=== PATIENT | female | born 1975 | race Caucasian/White ===

== ENCOUNTER 2017-05-17 14:17 | Outpatient (RCR) | payer BC, SELFPAY ==
[2017-05-17 15:43] LABS: Absolute Lymphocyte Count 1.23 X10^3/ul (0.83-4.51); Absolute Neutrophil Count 4.1 X10^3/uL (2.0-7.7); Basophil# 0.01 X10^3/uL; Basophil% 0.2 % (0-1); Eosinophil# 0.07 X10^3/uL; Eosinophils% 1.2 % (0-5); Hematocrit 35.2 % (37-47); Hemoglobin 11.8 g/dl (12.0-15.0); Lymphocyte # 1.23 X10^3/ul (4.0); Lymphocyte % 21.5 % (19-41); Mean Corp Hgb Conc 33.5 g/gl (32-36); Mean Corpuscular Hgb 27.5 pg (27.0-32.0); Mean Corpuscular Volume 82.1 fL (81-99); Mean Platelet Vol. 10.1 fl (6.2-12.0); Monocyte# 0.29 X10^3/uL; Monocyte% 5.1 % (0-10); Neutrophil # 4.11 X10^3/uL (2.7-7.7); Neutrophil % 71.8 % (47-70); Platelet Count 138 K/mm3 (150-450); RBC Distribution Width CV 13.4 % (11.6-14.6); RBC Distribution Width SD 39.1 fl (35.1-43.9); Red Blood Count 4.29 M/mm3 (4.2-5.4); White Blood Count 5.7 K/mm3 (4.4-11.0)
[2017-05-17 15:49] LABS: POSITIVE COUNT NO; POSITIVE DIFFERENTIAL NO; POSITIVE MORPHOLOGY NO
[2017-05-17 16:06] LABS: AST(SGOT) 17 U/L (15-37); Alanine Aminotransfer ALT/SGPT 19 U/L (13-56); Albumin, Serum 3.7 g/dL (3.2-5.0); BUN 16 mg/dL (7-18); Creatinine, Serum 0.95 mg/dL (0.55-1.02); EST Glomerular Filtration Rate 68 mL/min (>60); Est Glom Filt Rate - Afr Amer 82 mL/min (>60)
== END 2017-05-17 15:00 | disposition home or self-care (01) ==
LOC: MTLAB 14:17
PROVIDERS: Family Provider Family Medicine; PCP Family Medicine; Visit Provider Internal Medicine Rheumatology
DX: M32.9 Systemic lupus erythematosus, unspecified (principal)
CPT/HCPCS: 36415; 81001; 82040; 82565; 84450; 84460; 84520; 85025

== ENCOUNTER → 2017-05-20 14:02 | Outpatient (CLI) | payer BC, SELFPAY ==
[2017-05-20 17:31] LABS: Chlamydia Trachomatis by PCR Negative (Negative); Neisserai gonorrhoeae by PCR Negative (Negative); Probe Check PASS; Sample Adequacy Control PASS; Specimen Processing Control PASS
[2017-05-27 09:25] LABS: HPV Reflexed? NOT INDICATED
== END ==
PROVIDERS: Visit Provider Obstetrics & Gynecology
DX: Z12.4 Encounter for screening for malignant neoplasm of cervix (principal); Z11.3 Encounter for screening for infections with a predominantly sexual mode of transmission
CPT/HCPCS: 87491; 87591; 88175; G0145

== ENCOUNTER → 2017-06-08 07:00 | Outpatient (CLI) | payer BC, SELFPAY ==
--- NOTE | 2017-06-08 06:58 | HPBI_ITS ---
MAMMOGRAPHY - BILATERAL SCREENING REASON FOR EXAM: Female, 42 years old. Routine annual screening examination. PERTINENT HISTORY: Non-contributory. TECHNIQUE: Digital bilateral breast angely (3D mammographic acquisition) in the CC and MLO projections. 2-D mediolateral oblique (MLO) and craniocaudad (CC) views of both breasts were obtained. CAD: Full Field Digital Mammography with Computer Added Detection was performed. COMPARISON: Comparison is made with prior study dated December 05, 2015. FINDINGS: Breast Composition: The breasts are heterogeneously dense, which may obscure small masses. There are no dominant masses or suspicious calcifications. No other significant abnormalities are identified. There has been no significant change since the prior study. HPBI/SCREENING MAMM (CAD), BILAT IMPRESSION: Stable bilateral screening mammogram. Yearly follow-up mammogram recommended. (A) ASSESSMENT CATEGORY: BIRADS Category 1: Negative. A letter regarding these results will be sent to the patient by the facility within 30 days. Approximately 10% of breast cancers are not detected by mammography. A normal mammogram should not delay biopsy of a clinically suspicious abnormality. [id number] Electronically Signed: Chris Sandoval MD at 8:18 EDT Tel [phone], Service support ,
== END ==
PROVIDERS: Family Provider Family Medicine; PCP Family Medicine; Visit Provider Obstetrics & Gynecology
DX: Z12.31 Encounter for screening mammogram for malignant neoplasm of breast (principal)
CPT/HCPCS: 77063; 77067

== ENCOUNTER → 2017-07-07 13:47 | Outpatient (CLI) | payer BC, SELFPAY ==
--- NOTE | 2017-07-07 13:49 | ECHOD_ITS ---
Reason For Study: Valve disease Procedure This was a 2D Doppler, Color Flow transthoracic echocardiogram. Exam performed in department. Left Ventricle Normal size and thickness. The estimated ejection fraction is 65 %. Normal diastology for age. No regional wall motion abnormalities noted. Right Ventricle Normal size and thickness. Normal systolic function. Atria Normal left atrium. Normal right atrium. Normal atrial septum. Mitral Valve The mitral valve is structurally normal. No prolapse or stenosis seen. Trivial mitral valve insufficiency. Tricuspid Valve Normal tricuspid valve. Trivial tricuspid valve insufficiency. Right ventricular systolic pressure estimated to be 25 mmHg. Aortic Valve Moderate focal aortic valve thickening. Possible fusion of left and right coronary cusps, creating a functional bicuspid aortic valve. Mild aortic stenosis. Peak aortic valve gradient 29 mmHg. Mean aortic valve gradient 16 mmHg. Mild (1+) aortic valve insufficiency. Pulmonic Valve Normal pulmonic valve. Trivial pulmonic valve insufficiency. Great Vessels Normal aortic root. Normal arch. Normal inferior vena cava. Inferior vena cava collapse with sniff. Pericardium/Pleural No pericardial effusion. MMode/2D Measurements & Calculations LVIDd: 4.0 cm IVSd: 1.3 cm LVOT diam: 2.1 cm LVIDs: 2.4 cm LVPWd: 1.2 cm LVOT area: 3.6 cm2 RVDd: 3.2 cm FS: 41.8 % Ao root diam: 3.7 cm LAV(MOD-bp): 50.9 ml EDV(MOD-sp4): 112.6 ml LA dimension: 2.8 cm LAV(MOD-bp) Indexed: 25.6 ml/m2 ESV(MOD-sp4): 30.5 ml LAV(MOD-sp2): 45.9 ml EF(MOD-sp4): 72.9 % LAV(MOD-sp4): 48.4 ml EDV(MOD-sp2): 103.6 ml SV(MOD-sp4): 82.1 ml SV(MOD-sp2): 70.2 ml EF(MOD-sp2): 67.7 % LA A4 area: 17.9 cm2 RA A4 area: 13.7 cm2 Doppler Measurements & Calculations MV E max jovani: 70.4 cm/sec Lat Peak E' Jovani: 12.2 cm/sec Med Peak E' Jovani: 6.2 cm/sec MV A max jovani: 59.1 cm/sec E/E' lat: 5.8 E/E' med: 11.3 MV E/A: 1.2 Ao V2 max: 255.9 cm/sec AI max jovani: 415.9 cm/sec LV V1 max: 118.1 cm/sec Ao max P.2 mmHg AI max P.4 mmHg LV V1 max P.6 mmHg Ao V2 mean: 179.4 cm/sec AI dec slope: 244.8 cm/sec2 LV V1 mean P.3 mmHg Ao mean P.8 mmHg AI P1/2t: 497.6 msec LV V1 mean: 85.4 cm/sec Ao V2 VTI: 51.4 cm LV V1 VTI: 26.0 cm BUSTER(I,D): 1.8 cm2 BUSTER(V,D): 1.7 cm2 SV(LVOT): 93.8 ml PA V2 max: 98.8 cm/sec TR max jovani: 224.0 cm/sec TR max P.1 mmHg Interpretation Summary The estimated ejection fraction is 65 %. Normal diastology for age. Trivial mitral valve insufficiency. Trivial tricuspid valve insufficiency. Right ventricular systolic pressure estimated to be 25 mmHg. Possible fusion of left and right coronary cusps, creating a functional bicuspid aortic valve. Mild aortic stenosis. Mild (1+) aortic valve insufficiency. There is no comparison study available. Ordering Physician: Damian Pandey Referring Physician: Esvin Thompson M.D. Performed By: Judy Delgado RDCS
== END ==
PROVIDERS: Family Provider Family Medicine; PCP Family Medicine; Visit Provider Internal Medicine Rheumatology
DX: I08.8 Other rheumatic multiple valve diseases (principal)
CPT/HCPCS: 93306

== ENCOUNTER → 2017-12-20 09:50 | Outpatient (CLI) | payer OTHER, SELFPAY ==
[2017-12-20 12:11] LABS: Erythrocyte Sedimentation Rate 3 mm/hr (0-20)
[2017-12-20 12:15] LABS: Absolute Lymphocyte Count 1.39 X10^3/ul (0.83-4.51); Absolute Neutrophil Count 3.1 X10^3/uL (2.0-7.7); Basophil# 0.02 X10^3/uL; Basophil% 0.4 % (0-1); Eosinophil# 0.09 X10^3/uL; Eosinophils% 1.8 % (0-5); Hematocrit 35.7 % (37-47); Hemoglobin 12.3 g/dl (12.0-15.0); Lymphocyte # 1.39 X10^3/ul (4.0); Lymphocyte % 27.5 % (19-41); Mean Corp Hgb Conc 34.5 g/gl (32-36); Mean Corpuscular Hgb 27.8 pg (27.0-32.0); Mean Corpuscular Volume 80.8 fL (81-99); Mean Platelet Vol. 10.1 fl (6.2-12.0); Monocyte# 0.46 X10^3/uL; Monocyte% 9.1 % (0-10); Neutrophil # 3.07 X10^3/uL (2.7-7.7); Neutrophil % 60.8 % (47-70); Platelet Count 141 K/mm3 (150-450); RBC Distribution Width SD 37.5 fl (35.1-43.9); Red Blood Count 4.42 M/mm3 (4.2-5.4); White Blood Count 5.1 K/mm3 (4.4-11.0)
[2017-12-20 12:21] LABS: AST(SGOT) 16 U/L (15-37); Alanine Aminotransfer ALT/SGPT 22 U/L (13-56); Albumin, Serum 3.6 g/dL (3.2-5.0); BUN 11 mg/dL (7-18); CRP 5.69 mg/L (0.0-3.0); EST Glomerular Filtration Rate 72 mL/min (>60); Est Glom Filt Rate - Afr Amer 87 mL/min (>60)
[2017-12-20 12:23] LABS: POSITIVE COUNT NO; POSITIVE DIFFERENTIAL NO; POSITIVE MORPHOLOGY NO
== END ==
PROVIDERS: Family Provider Family Medicine; PCP Family Medicine; Referring Provider Internal Medicine Rheumatology; Visit Provider Internal Medicine Rheumatology
DX: M32.9 Systemic lupus erythematosus, unspecified (principal)
CPT/HCPCS: 36415; 82040; 82565; 84450; 84460; 84520; 85025; 85652; 86140

== ENCOUNTER → 2018-05-18 12:06 | Outpatient (CLI) | payer OTHER, SELFPAY ==
[2018-05-18 14:15] LABS: Erythrocyte Sedimentation Rate 5 mm/hr (0-20)
[2018-05-18 14:18] LABS: AST(SGOT) 20 U/L (15-37); Alanine Aminotransfer ALT/SGPT 24 U/L (13-56); BUN 12 mg/dL (7-18); CRP 9.68 mg/L (0.0-3.0); Creatinine, Serum 0.88 mg/dL (0.55-1.02); EST Glomerular Filtration Rate 74 mL/min (>60); Est Glom Filt Rate - Afr Amer 89 mL/min (>60)
[2018-05-18 14:19] LABS: Absolute Lymphocyte Count 1.42 X10^3/ul (0.83-4.51); Absolute Neutrophil Count 4.5 X10^3/uL (2.0-7.7); Basophil# 0.02 X10^3/uL; Basophil% 0.3 % (0-1); Eosinophil# 0.07 X10^3/uL; Eosinophils% 1.1 % (0-5); Hemoglobin 13.3 g/dl (12.0-15.0); Lymphocyte # 1.42 X10^3/ul (4.0); Lymphocyte % 22.8 % (19-41); Mean Corp Hgb Conc 33.3 g/gl (32-36); Mean Corpuscular Hgb 27.4 pg (27.0-32.0); Mean Corpuscular Volume 82.5 fL (81-99); Mean Platelet Vol. 9.9 fl (6.2-12.0); Monocyte# 0.27 X10^3/uL; Monocyte% 4.3 % (0-10); Neutrophil # 4.45 X10^3/uL (2.7-7.7); Neutrophil % 71.3 % (47-70); Platelet Count 174 K/mm3 (150-450); RBC Distribution Width CV 13.5 % (11.6-14.6); RBC Distribution Width SD 40.8 fl (35.1-43.9); Red Blood Count 4.85 M/mm3 (4.2-5.4); White Blood Count 6.2 K/mm3 (4.4-11.0)
[2018-05-18 14:20] LABS: POSITIVE COUNT NO; POSITIVE DIFFERENTIAL NO; POSITIVE MORPHOLOGY NO
== END ==
PROVIDERS: Family Provider Family Medicine; PCP Family Medicine; Referring Provider Internal Medicine Rheumatology; Visit Provider Internal Medicine Rheumatology
DX: M32.9 Systemic lupus erythematosus, unspecified (principal)
CPT/HCPCS: 36415; 82040; 82565; 84450; 84460; 84520; 85025; 85652; 86140

== ENCOUNTER → 2018-05-23 13:55 | Outpatient (CLI) | payer OTHER, SELFPAY ==
[2018-05-26 12:52] LABS: HPV Reflexed? NOT INDICATED
== END ==
PROVIDERS: Visit Provider Obstetrics & Gynecology
DX: Z12.4 Encounter for screening for malignant neoplasm of cervix (principal)
CPT/HCPCS: 88175; G0145

== ENCOUNTER → 2018-06-24 07:36 | Outpatient (CLI) | payer OTHER, SELFPAY ==
--- NOTE | 2018-06-24 07:38 | BI_ITS ---
MAMMOGRAPHY - BILATERAL SCREENING REASON FOR EXAM: Female, 43 years old. Routine annual screening examination. PERTINENT HISTORY: Non-contributory. TECHNIQUE: Digital bilateral breast angely (3D mammographic acquisition) in the CC and MLO projections. 2-D mediolateral oblique (MLO) and craniocaudad (CC) views of both breasts were obtained. CAD: Full Field Digital Mammography with Computer Added Detection was performed. COMPARISON: Comparison is made with prior study dated June 08, 2017 and December 05, 2015. FINDINGS: Breast Composition: The breasts are heterogeneously dense, which may obscure small masses. There are no dominant masses or suspicious calcifications. No other significant abnormalities are identified. There has been no significant change since the prior study. BI/SCREENING MAMM (CAD), BILAT IMPRESSION: Stable bilateral screening mammogram. Yearly follow-up mammogram recommended. (A) ASSESSMENT CATEGORY: BIRADS Category 1: Negative. A letter regarding these results will be sent to the patient by the facility within 30 days. Approximately 10% of breast cancers are not detected by mammography. A normal mammogram should not delay biopsy of a clinically suspicious abnormality. [id number] Electronically Signed: Chris Sandoval, at 8:30 EDT , Service support ,
== END ==
PROVIDERS: Referring Provider Obstetrics & Gynecology; Visit Provider Obstetrics & Gynecology
DX: Z12.31 Encounter for screening mammogram for malignant neoplasm of breast (principal)
CPT/HCPCS: 77063; 77067

== ENCOUNTER → 2018-12-16 08:30 | Outpatient (CLI) | payer OTHER, SELFPAY ==
[2018-12-16 08:38] LABS: Mucous, Urine 0 SEEN /hpf (<or=2+)
[2018-12-16 10:02] LABS: Color, Urine Yellow (Yellow); Glucose, Dipstick Normal (Normal); Ketone-Dipstick 5 mg/dl (Negative); Leukocyte Esterase-Dipstick 500 /ul (Negative); Nitrite-Dipstick Negative (Negative); Occult Blood-Urine 150 /ul (Negative); Protein-Dipstick 30 mg/dl (Negative); Specific Gravity, Urine 1.025 (1.002-1.030); Urine Bilirubin Dipstick Negative (Negative); Urine Clarity Cloudy (Clear); Urine Urobilinogen Normal (Normal)
[2018-12-16 10:03] LABS: Absolute Lymphocyte Count 1.34 X10^3/uL (0.83-4.51); Absolute Neutrophil Count 2.9 X10^3/uL (2.0-7.7); Basophil# 0.03 X10^3/uL; Basophil% 0.6 % (0-1); Eosinophil# 0.16 X10^3/uL; Eosinophils% 3.3 % (0-5); Hematocrit 39.6 % (37-47); Lymphocyte # 1.34 X10^3/ul (4.0); Lymphocyte % 27.5 % (19-41); Mean Corp Hgb Conc 32.8 g/dL (32-36); Mean Corpuscular Volume 82.3 fL (81-99); Monocyte% 8.2 % (0-10); NRBC Flagged by Analyzer 0 % (0-5); Neutrophil # 2.92 X10^3/uL (2.7-7.7); Platelet Count 169 K/mm3 (150-450); RBC Distribution Width CV 12.7 % (11.6-14.6); RBC Distribution Width SD 38.3 fl (35.1-43.9); Red Blood Count 4.81 M/mm3 (4.2-5.4); White Blood Count 4.9 K/mm3 (4.4-11.0)
[2018-12-16 10:14] LABS: ALB/GLOB Ratio 1.1 RATIO (0.9-2.4); AST(SGOT) 20 U/L (15-37); Alanine Aminotransfer ALT/SGPT 19 U/L (13-56); Albumin, Serum 3.6 g/dL (3.2-5.0); Alkaline Phosphatase 83 U/L (45-117); Anion Gap 6 (5-15); BUN 13 mg/dL (7-18); BUN/Creat Ratio 15.5 RATIO (10-20); Calcium,Total 8.3 mg/dL (8.5-10.1); Chloride 110 mmol/L (98-107); Creatinine, Serum 0.84 mg/dL (0.55-1.02); EST Glomerular Filtration Rate 78 mL/min (>60); Est Glom Filt Rate - Afr Amer 95 mL/min (>60); Globulin 3.4 g/dL (2.2-4.2); Glucose 92 mg/dL (74-106); Potassium 3.9 mmol/L (3.5-5.1); Sodium Level 141 mmol/L (136-145)
[2018-12-16 10:16] LABS: Bacteria 2+ /hpf (None Seen); Red Blood Cells-Urine 10-25 SEEN /hpf (0-5); White Blood Cells 50-100 SEEN /hpf (0-5)
[2018-12-16 10:17] LABS: Amorphous Sediment 2+ URATE; Squamous Epithelial Cells - UA 0-5 SEEN /hpf (5-10)
[2018-12-16 10:21] LABS: Hemoglobin A1c 5.2 % (4.2-6.3)
== END ==
PROVIDERS: Referring Provider Internal Medicine Rheumatology; Visit Provider Internal Medicine Rheumatology
DX: M32.9 Systemic lupus erythematosus, unspecified (principal)
CPT/HCPCS: 36415; 80053; 81001; 83036; 85025; 86140

== ENCOUNTER → 2019-03-24 13:50 | Outpatient (CLI) | payer OTHER, SELFPAY ==
[2019-02-21 10:53] VITALS: BMI 40.6
--- NOTE | 2019-03-24 13:54 | ECHOD_ITS ---
Reason For Study: , AI Procedure This was a 2D Doppler, Color Flow transthoracic echocardiogram. Exam performed in department. Left Ventricle Normal LV size. The estimated ejection fraction is 65 %. No evidence for diastolic dysfunction. No regional wall motion abnormalities noted. Right Ventricle Normal RV size. Normal systolic function. Atria Normal left atrium. Normal right atrium. No doppler evidence for ASD. Mitral Valve There is no mitral valve stenosis. Trivial mitral valve insufficiency. Tricuspid Valve There is no tricuspid stenosis. Trivial tricuspid valve insufficiency. Pulmonary artery systolic pressure is 25-30 mmHg. Aortic Valve Mild diffuse aortic valve thickening. Trisinus/trileaflet aortic valve. Mild aortic stenosis. Mild- Moderate (1-2+) aortic valve insufficiency. Pulmonic Valve There is no pulmonic valvular stenosis. No pulmonic valve insufficiency. Great Vessels Normal aortic root. Pericardium/Pleural No pericardial effusion. MMode/2D Measurements & Calculations LVIDd: 4.9 cm IVSd: 1.1 cm LVOT diam: 2.2 cm LVIDs: 2.8 cm LVPWd: 1.1 cm LVOT area: 4.0 cm2 RVDd: 3.0 cm FS: 42.2 % Ao root diam: 3.5 cm LAV(MOD-bp): 59.2 ml LVAd ap4: 30.6 cm2 LAV(MOD-bp) Indexed: 30.0 ml/m2 EDV(MOD-sp4): 94.6 ml LAV(MOD-sp2): 51.8 ml EDV(sp4-el): 97.3 ml LAV(MOD-sp4): 60.7 ml LVAs ap4: 18.0 cm2 ESV(MOD-sp4): 41.6 ml ESV(sp4-el): 41.7 ml EF(MOD-sp4): 56.0 % EF(sp4-el): 57.1 % SV(MOD-sp4): 53.0 ml SV(sp4-el): 55.5 ml LA A4 area: 20.2 cm2 LA dimension(2D): 3.5 cm RA A4 area: 12.1 cm2 Doppler Measurements & Calculations MV E max jovani: 60.4 cm/sec Lat Peak E' Jovani: 12.1 cm/sec Med Peak E' Jovani: 7.9 cm/sec MV A max jovani: 55.5 cm/sec E/E' lat: 5.0 E/E' med: 7.7 MV E/A: 1.1 Ao V2 max: 276.6 cm/sec AI max jovani: 391.4 cm/sec LV V1 max: 111.4 cm/sec Ao max P.6 mmHg AI max P.4 mmHg LV V1 max P.0 mmHg Ao V2 mean: 171.3 cm/sec LV V1 mean P.8 mmHg Ao mean P.0 mmHg AI dec slope: 224.7 cm/sec2 LV V1 mean: 78.7 cm/sec Ao V2 VTI: 59.1 cm AI P1/2t: 510.1 msec LV V1 VTI: 25.7 cm BUSTER(I,D): 1.7 cm2 BUSTER(V,D): 1.6 cm2 SV(LVOT): 101.8 ml PA V2 max: 82.8 cm/sec PI end-d jovani: 85.7 cm/sec TR max jovani: 235.0 cm/sec TR max P.1 mmHg Interpretation Summary The estimated ejection fraction is 65 %. No evidence for diastolic dysfunction. Trivial mitral valve insufficiency. Trivial tricuspid valve insufficiency. Pulmonary artery systolic pressure is 25-30 mmHg. Mild aortic stenosis. Mild-Moderate (1-2+) aortic valve insufficiency. Ordering Physician: Rosalinda Pink Referring Physician: Esvin Recinos Performed By: Lynda Bernstein, AVI, RVT
== END ==
PROVIDERS: Family Provider Family Medicine; PCP Family Medicine; Referring Provider Specialist; Visit Provider Specialist
DX: I35.1 Nonrheumatic aortic (valve) insufficiency (principal); I35.0 Nonrheumatic aortic (valve) stenosis; I10 Essential (primary) hypertension; Z86.79 Personal history of other diseases of the circulatory system
CPT/HCPCS: 93306

== ENCOUNTER → 2019-07-28 12:39 | Outpatient (CLI) | payer OTHER, SELFPAY ==
[2019-04-13 11:39] VITALS: BMI 40.6
[2019-07-28 15:59] LABS: CPK Total, Creatine Kinase 145 U/L (26-192)
[2019-07-28 16:00] LABS: Protein, Urine (Random) 24.1 mg/dL (<11.9); Protein:Creat Ratio 210 mg/g CRE (0-200)
[2019-07-31 10:08] LABS: Hepatitis B Surface Antibody Non-Reactive; Hepatitis B Surface Antigen Non-Reactive (Nonreactive); Hepatitis C Antibody Non-Reactive (Nonreactive)
[2019-08-03 14:07] LABS: Anti-Scleroderma-70 AB <0.2 AI (0.0-0.9); RNP Ab <0.2 AI (0.0-0.9); SJOGREN'S Anti-SS-A test < 0.2 AI (0.0-0.9); SJOGREN'S Anti-SS-B test < 0.2 AI (0.0-0.9); Smith Ab <0.2 AI (0.0-0.9)
[2019-08-03 16:07] LABS: Complement C3 121 mg/dL (82-167); Cytoplasmic Ab (C-ANCA) <1:20 titer (Neg:<1:20); Dilute Prothrombin Time (dPT) 75.8 sec (0.0-55.0); Dilute Russell Viper Venom 105.3 sec (0.0-47.0); Hepatitis B Core Ab Total Negative (Negative); Hexagonal Phase Phospholipid 2 60 sec (0-11); PTT-LA 114.4 sec (0.0-51.9); PTT-LA Mix 102.9 sec (0.0-48.9); Thrombin Time 16.3 sec (0.0-23.0); Thyroid Peroxidase AB < 9 IU/mL (0-34); dPT Confirm Ratio 1.62 Ratio (0.00-1.40)
[2019-08-04 00:41] LABS: Anti-Cardiolipin Ab, IgG, Qn 10 GPL U/mL (0-14); Anti-Cardiolipin Ab, IgM, Qn < 9 MPL U/mL (0-12); Anti-Smooth Muscle ABS 9 Units (0-19); Hepatitis B Core AB IgM Negative (Negative)
[2019-08-04 00:42] LABS: Anti-Cardiolipin Ab, IgA, Qn < 9 APL U/mL (0-11); Anti-Parietal Cell AB, QN 3.1 Units (0.0-20.0); Beta-2-Glycoprotein I IgA <9 (0-25); Beta-2-Glycoprotein I IgG <9 (0-20); Beta-2-Glycoprotein I IgM <9 (0-32); CCP IgG Antibodies 9 units (0-19); Interpretation Comment: (.); Perinuclear Ab (P-ANCA) <1:20 titer (Neg:<1:20)
[2019-08-04 00:47] LABS: ANTINUCLEAR ANTIBODIES DIRECT Negative (Negative); Anti-Mitochondrial AB <20.0 Units (0.0-20.0); Anti-dsDNA Ab 8 IU/mL (0-9)
== END ==
PROVIDERS: PCP Family Medicine; Referring Provider Internal Medicine Rheumatology; Visit Provider Internal Medicine Rheumatology
DX: M32.9 Systemic lupus erythematosus, unspecified (principal); Z79.899 Other long term (current) drug therapy
CPT/HCPCS: 36415; 82550; 82570; 82595; 83516; 84156; 86038; 86146; 86147; 86160; 86200; 86225; 86235; 86256; 86376; 86704; 86705; 86706; 86803; 87340

== ENCOUNTER → 2019-08-17 15:31 | Outpatient (CLI) | payer OTHER, SELFPAY ==
[2019-04-13 11:39] VITALS: BMI 40.6
--- NOTE | 2019-08-17 15:34 | BI_ITS ---
MAMMOGRAPHY - BILATERAL SCREENING REASON FOR EXAM: Female, 44 years old. Routine annual screening examination. PERTINENT HISTORY: Non-contributory. TECHNIQUE: Digital bilateral breast mary lou (3D mammographic acquisition) in the CC and MLO projections. 2-D mediolateral oblique (MLO) and craniocaudad (CC) views of both breasts were obtained. CAD: Full Field Digital Mammography with Computer Added Detection was performed. COMPARISON: Comparison is made with prior examination dated June 24, 2018 and June 08, 2017. FINDINGS: Breast Composition: The breasts are heterogeneously dense, which may obscure small masses. There are no dominant masses or suspicious calcifications. No other significant abnormalities are identified. There has been no significant change since the prior study. BI/SCREEN MAMM (CAD) W/MARY LOU BILAT IMPRESSION: Stable bilateral screening mammogram. Yearly follow-up mammogram recommended. (A) ASSESSMENT CATEGORY: BIRADS Category 1: Negative. A letter regarding these results will be sent to the patient by the facility within 30 days. Approximately 10% of breast cancers are not detected by mammography. A normal mammogram should not delay biopsy of a clinically suspicious abnormality. [id number] Electronically Signed: Chris Sandoval, at 8:04 EDT , Service support ,
== END ==
PROVIDERS: PCP Family Medicine; Referring Provider Obstetrics & Gynecology; Visit Provider Obstetrics & Gynecology
DX: Z12.31 Encounter for screening mammogram for malignant neoplasm of breast (principal)
CPT/HCPCS: 77063; 77067

== ENCOUNTER → 2020-08-14 16:29 | Outpatient (CLI) | payer OTHER, SELFPAY ==
[2020-03-21 09:37] VITALS: BMI 43.2
--- NOTE | 2020-08-14 | IMM_PTH ---
PATIENT: JAKY WORTHY LOC: [facility] U#:[id number] AGE/SX: 50/F ROOM: RE08/14/[address]: Dr. Esvin Garcia MD : 1975 BED: DIS: SPEC #: [id number] RECD: 08/16/20 12:11 STATUS: ARI REQ #: [id number] HUNTER: 08/14/20 00:[address]: Esvin Garcia DEPT: IMMUNOHISTOCHEMISTRY RECD BY: Dai Tejada ENTERED: 08/16/20 12:12 SP TYPE: IMMUNO OTHR DR: Dr. Esvin Recinos MD Tissues: Uterine cervix, NOS Procedures: p16 (initial) KI-67 (add) PHYSICIAN & INSTITUTION [place] [id number] SPECIMEN INFORMATION: Tissue Source: Cervical polyp Clinical Info: Cervical polyp Specimen Number: [id number] CPT code: 84428, 00528 METHODOLOGY: Deparaffinized sections of prefer/formalin-fixed tissue or PAP/DQ stained slides are incubated with monoclonal/polyclonal antibodies/oligonucleotide probes. Localization is made via biotin free immunoperoxidase method. Appropriate controls are performed and reacted as expected. Results on target cell population are indicated in the following table: RESULTS: ANTIBODY / CLONE RESULT P16 (E6H4) positive, focal, patchy Ki-67 (30-9) positive, low These tests were developed and their performance characteristics determined by [facility]. They may not have been cleared or approved by the U.S. Food and Drug Administration. The FDA has determined that such clearance or approval is not necessary. The above immunohistochemical/dualISH markers are ordered and reviewed by the Pathologist. INTERPRETATION: Cervical polyp, biopsy: Consistent with focal HPV change. AM:juani 08/20/2020
--- NOTE | 2020-08-14 | CER_PTH ---
PATIENT: JAKY WORTHY LOC: [facility] U#:[id number] AGE/SX: 50/F ROOM: RE08/14/[address]: Dr. Esvin Garcia MD : 1975 BED: DIS: SPEC #: [id number] RECD: 08/15/20 10:00 STATUS: ARI BENAVIDEZ #: [id number] HUNTER: 08/14/20 00:[address]: Esvin Garcia DEPT: SURGICAL PATHOLOGY RECD BY: Amaya Sumner ENTERED: 08/15/20 10:00 SP TYPE: CERV OTHR DR: Dr. Esvin Recinos MD Tissues: Uterine cervix, NOS Procedures: Surgery Specimen Level IV HEADER OPERATION: Biopsy cervical polyp PRE-OP DIAGNOSIS: Cervical polyp N84.1 TISSUE SUBMITTED: Cervical polyp MICROSCOPIC DIAGNOSIS Cervical polyp, biopsy: Benign ecto/endocervical polyp, mildly inflamed. Consistent with focal HPV change. AM:juani 08/16/2020 COMMENT Results from immunohistochemistry ([id number]) for surrogate HPV marker (p16) will be reported separately. MICROSCOPIC DESCRIPTION Slides are reviewed. GROSS DESCRIPTION Received in fixative is one container labeled with the patient's name and designated cervical polyp. The specimen consists of two irregular fragments of deleon tissue that in aggregate measure 0.8 x 0.2 x 0.1 cm. The specimen is totally submitted in one cassette. / AM:juani 08/15/20 TC:3 CPT: 14478
[2020-08-20 15:52] LABS: HPV Reflexed? NOT INDICATED
== END ==
PROVIDERS: PCP Family Medicine; Visit Provider Obstetrics & Gynecology
DX: Z12.4 Encounter for screening for malignant neoplasm of cervix (principal); N84.1 Polyp of cervix uteri
CPT/HCPCS: 88175; 88305; 88341; 88342; G0145

== ENCOUNTER → 2020-09-06 14:41 | Outpatient (CLI) | payer OTHER, SELFPAY ==
[2020-03-21 09:37] VITALS: BMI 43.2
--- NOTE | 2020-09-06 14:50 | BI_ITS ---
MAMMOGRAPHY - BILATERAL SCREENING 3-D TOMOSYNTHESIS REASON FOR EXAM: Female, 45 years old. SCREENING PERTINENT HISTORY: No significant family history. TECHNIQUE: 2-D mammograms and 3-D Tomosynthesis of the breast (s) were performed. CAD was performed. COMPARISON: 08/17/2019 FINDINGS: The breast composition is heterogeneously dense that can obscure small breast masses. Scattered benign calcifications are seen. No dense spiculated masses or suspicious microcalcifications are identified. No architectural distortion is identified. There is no skin thickening or retraction. There has been no significant change since the prior study. BI/SCRN MAMM (CAD)W/MARY LOU BILAT IMPRESSION: No mammographic signs of malignancy. Routine yearly mammograms recommended. ASSESSMENT CATEGORY: BIRADS Category 1: Negative. A letter regarding these results will be sent to the patient by the facility within 30 days. FOLLOW UP RECOMMENDATION: Yearly follow up mammogram recommended. (A) Approximately 10% of breast cancers are not detected by mammography. A normal mammogram should not delay biopsy of a clinically suspicious abnormality. Electronically Signed: Lencho Colon MD at 15:49 EDT Tel , Service support ,
== END ==
PROVIDERS: PCP Family Medicine; Referring Provider Obstetrics & Gynecology; Visit Provider Obstetrics & Gynecology
DX: Z12.31 Encounter for screening mammogram for malignant neoplasm of breast (principal)
CPT/HCPCS: 77063; 77067

== ENCOUNTER → 2021-02-19 11:31 | Outpatient (CLI) | payer OTHER, SELFPAY ==
[2021-02-19 11:42] LABS: Bacteria 0 SEEN /hpf (None Seen); Mucous, Urine 0 SEEN /hpf (<or=2+); Red Blood Cells-Urine 0 SEEN /hpf (0-5)
[2021-02-19 15:02] LABS: Glucose, Dipstick Normal (Normal); Ketone-Dipstick Negative (Negative); Leukocyte Esterase-Dipstick Negative /ul (Negative); Nitrite-Dipstick Negative (Negative); Occult Blood-Urine Negative /ul (Negative); Protein-Dipstick 15 mg/dl (Negative); Specific Gravity, Urine 1.015 (1.002-1.030); Urine Bilirubin Dipstick Negative (Negative); Urine Urobilinogen Normal (Normal)
[2021-02-19 15:12] LABS: Color, Urine Yellow (Yellow); Urine Clarity Clear (Clear)
[2021-02-19 15:16] LABS: AST(SGOT) 21 U/L (15-37); Alanine Aminotransfer ALT/SGPT 30 U/L (13-56); Albumin, Serum 3.9 g/dL (3.2-5.0); Alkaline Phosphatase 84 U/L (45-117); Anion Gap 8 (5-15); BUN 15 mg/dL (7-18); BUN/Creat Ratio 18.7 RATIO (10-20); Calcium,Total 9.1 mg/dL (8.5-10.1); Chloride 104 mmol/L (98-107); EST Glomerular Filtration Rate 81 mL/min (>60); Est Glom Filt Rate - Afr Amer 98 mL/min (>60); Globulin 3.9 g/dL (2.2-4.2); Glucose 89 mg/dL (74-106); Potassium 4.1 mmol/L (3.5-5.1); Protein, Total 7.8 g/dL (6.4-8.2); Sodium Level 137 mmol/L (136-145)
[2021-02-19 15:17] LABS: Squamous Epithelial Cells - UA 0-5 SEEN /hpf (5-10); White Blood Cells 0-5 SEEN /hpf (0-5)
[2021-02-19 15:21] LABS: Erythrocyte Sedimentation Rate 13 mm/hr (0-30); Protein, Urine (Random) 22.7 mg/dL (<11.9); Protein:Creat Ratio 283 mg/g CRE (0-200)
[2021-02-19 15:24] LABS: Absolute Lymphocyte Count 0.71 X10^3/uL (0.83-4.51); Absolute Neutrophil Count 2.6 X10^3/uL (2.0-7.7); Basophil# 0.01 X10^3/uL; Basophil% 0.3 % (0-1); Eosinophil# 0.11 X10^3/uL; Hematocrit 37.7 % (37-47); Hemoglobin 12.5 g/dL (12.0-15.0); Lymphocyte # 0.71 X10^3/ul (0.83-4.51); Lymphocyte % 19.3 % (19-41); Mean Corp Hgb Conc 33.2 g/dL (32-36); Mean Corpuscular Hgb 26.6 pg (27.0-32.0); Mean Corpuscular Volume 80.2 fL (81-99); Mean Platelet Vol. 10.6 fl (6.2-12.0); Monocyte# 0.26 X10^3/uL; Monocyte% 7.1 % (0-10); NRBC Flagged by Analyzer 0 % (0-5); Neutrophil # 2.55 X10^3/uL (2.7-7.7); Neutrophil % 69.5 % (47-70); Platelet Count 125 K/mm3 (150-450); RBC Distribution Width SD 37.2 fl (35.1-43.9); White Blood Count 3.7 K/mm3 (4.4-11.0)
[2021-03-04 17:07] LABS: Cytoplasmic Ab (C-ANCA) <1:20 titer (Neg:<1:20); Dilute Prothrombin Time (dPT) > 200.0 sec (0.0-47.6); Dilute Russell Viper Venom 120.9 sec (0.0-47.0); Hexagonal Phase Phospholipid 2 97 sec (0-11); PTT-LA 120.4 sec (0.0-51.9); PTT-LA Mix 103.5 sec (0.0-48.9); Thrombin Time 16.7 sec (0.0-23.0)
[2021-03-04 21:33] LABS: Anti-Cardiolipin Ab, IgA, Qn < 9 APL U/mL (0-11); Anti-Cardiolipin Ab, IgG, Qn 21 GPL U/mL (0-14); Anti-Cardiolipin Ab, IgM, Qn 33 MPL U/mL (0-12); Beta-2-Glycoprotein I IgA 20 (0-25); Beta-2-Glycoprotein I IgG <9 (0-20); Beta-2-Glycoprotein I IgM 28 (0-32); CCP IgG Antibodies 8 units (0-19); Perinuclear Ab (P-ANCA) <1:20 titer (Neg:<1:20)
== END ==
PROVIDERS: PCP Family Medicine; Referring Provider Internal Medicine Rheumatology; Visit Provider Internal Medicine Rheumatology
DX: M32.9 Systemic lupus erythematosus, unspecified (principal)
CPT/HCPCS: 36415; 80053; 81001; 82570; 84156; 85025; 85652; 86140; 86146; 86147; 86200; 86256

== ENCOUNTER → 2021-03-19 14:04 | Outpatient (CLI) | payer OTHER, SELFPAY ==
--- NOTE | 2021-03-19 14:06 | RAD_ITS ---
STUDY: X-RAY - CERVICAL SPINE REASON FOR EXAM: Female, 46 years old. strain of muscles TECHNIQUE: 7 view(s) of the cervical spine were obtained. COMPARISON: None FINDINGS: Normal anterior atlantoaxial articulation. Normal odontoid process. Normal cervical lordosis. No subluxation with flexion or extension views to suggest instability. Normal vertebral bodies and endplates. Normal disc space heights. Normal visualized intervertebral neuroforamina. The soft tissue structures are unremarkable. RAD/Cerv Spine Obl/Flex/Ext Comp IMPRESSION: Normal x-ray examination of the visualized cervical spine. Electronically Signed: Lencho Colon MD at 10:43 EST Tel , Service support ,
== END ==
PROVIDERS: PCP Family Medicine; Referring Provider Family Medicine; Visit Provider Family Medicine
DX: S46.811S Strain of other muscles, fascia and tendons at shoulder and upper arm level, right arm, sequela (principal)
CPT/HCPCS: 72052

== ENCOUNTER 2021-03-25 15:45 | Outpatient (CLI) | payer OTHER, SELFPAY | END 2021-03-25 23:59 | disposition short-term general hospital (02) | PROVIDERS: PCP Family Medicine; Referring Provider Family Medicine; Visit Provider Family Medicine | DX: Z20.822 Contact with and (suspected) exposure to COVID-19 (principal) | CPT/HCPCS: 87635; U0003; U0005 ==

== ENCOUNTER 2021-05-09 19:45 | Emergency (ER) | payer OTHER, SELFPAY ==
[2021-05-09 19:46] VITALS: BP 136/76; PULSE 74; RESP 22; TEMP 35.9; O2SAT 96; BMI 43.6
--- NOTE | 2021-05-09 20:54 | EKG12_ITS ---
Test Reason : DYSRHYTHMIA Blood Pressure : / mmHG Vent. Rate : 074 BPM Atrial Rate : 074 BPM P-R Int : 138 ms QRS Dur : 082 ms QT Int : 408 ms P-R-T Axes : 051 016 032 degrees QTc Int : 452 ms Normal sinus rhythm T wave abnormality, consider lateral ischemia Abnormal ECG Confirmed by YUSUF BACH, NANNETTE ([id number]), scientific publications editor CHUCK JUAREZ ([id number]) on 05/13/2021 10:21:52 A M Referred By: MAIA Confirmed By:ASHLIE GOLDBERG MD
--- NOTE | 2021-05-09 20:54 | RAD_ITS ---
STUDY: X-RAY CHEST REASON FOR EXAM: Female, 46 years old. Chest pain TECHNIQUE: Frontal view COMPARISON: None. FINDINGS: The lungs are expanded. Mild right basilar infiltrate. Normal size heart. Normal mediastinum and helena. Normal visualized pulmonary arteries. Normal visualized aortic arch and descending thoracic aorta. Normal visualized thoracic spine. Normal visualized ribs, clavicles, and shoulders. There is no demonstrated abnormality of the visualized soft tissue structures of the upper abdomen. RAD/Chest 1 View (Portable) IMPRESSION: Possible mild right basilar infiltrate. Electronically Signed: Paolo Ivey DO at 22:23 EST Reading Location ID and State: [facility] / [place] Tel [phone], Service support ,
--- NOTE | 2021-05-09 21:02 | ED.VIS.DYS ---
HPI History of Present Illness Chief Complaint: Shortness of Breath Narrative Narrative: 46-year-old female presenting with dyspnea. She also has complaint of palpitations. This started between yesterday and today. 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 Patient denies chest pressure or pleuritic chest pain. She is not lightheaded or dizzy. Patient has fever, chills, cough. No body aches. No history of DVT/PE. She states she is not a smoker. She does not have asthma or COPD. Denies history of [place]. She states she does have lupus. [facility] Medical History Essential hypertension Female stress incontinence History of endocarditis Lupus Nonrheumatic aortic (valve) insufficiency Seizure disorder Home Medications aspirin 81 mg PO DAILY@0800 07/20/13 [History Last Taken Unknown] hydroxychloroquine 1.5 tab PO DAILYCM 07/20/13 [History Last Taken Unknown] levetiracetam 1,000 mg PO BID 07/20/13 [History Last Taken 07/25/13 05:00] ergocalciferol (vitamin D2) 1,250 mcg (50,000 unit) capsule 50,000 unit PO QWEEK 02/14/19 [History Last Taken Unknown] mycophenolate mofetil 500 mg tablet 500 mg PO BID tab 02/14/19 [History Last Taken Unknown] lisinopril 10 mg tablet 10 mg PO DAILY 03/21/20 [History Last Taken Unknown] prednisone 40 mg PO DAILY 05/09/21 [History Last Taken Unknown] Allergy/AdvReac Type Severity Reaction Status Date / Time ketorolac tromethamine Allergy Shortness Verified 05/09/21 19:46 [From Toradol] of breath Surgical History History of tonsillectomy Social History Smoking Status: Former smoker how long ago did patient quit smokin years ago alcohol intake: current alcohol intake frequency: a few times a month substance use type: does not use caffeine: Yes Type: coffee Number of servings: 2 ROS ROS ED Constitutional Constitutional ED: Denies chills or fever(s) Eyes Eyes: Denies blurry vision or diplopia ENT ENT ED: Denies rhinorrhea or sore throat Cardiovascular Cardiovascular: Reports palpitations and racing heartbeat Respiratory/Chest Respiratory/Chest: Reports dyspnea and dyspnea on exertion; Denies cough or sputum Gastrointestinal Gastrointestinal: Denies abdominal pain, nausea or vomiting Genitourinary Genitourinary ED: Denies dysuria or hematuria Musculoskeletal Musculoskeletal: Denies arthralgias or myalgias Integumentary Denies abscess or rash Neurologic Neurologic: Denies headache(s), paresthesias or weakness Psychiatric Psychiatric: Denies anxiety or depression EXAM Physical Exam Const Vital Signs: 05/09/21 19:46 05/09/21 20:23 05/09/21 21:00 Temperature 96.6 F L Temperature Source Temporal Pulse Rate 74 Respiratory Rate 22 H Respiratory Effort Normal Respiratory Depth Normal Respiratory Pattern Normal Blood Pressure 136/76 H Blood Pressure Mean 96 Pulse Ox 96 Oxygen Delivery Method Room Air Room Air 05/09/21 23:08 05/10/21 00:03 Temperature Temperature Source Pulse Rate 62 72 Respiratory Rate 20 H 23 H Respiratory Effort Respiratory Depth Respiratory Pattern Blood Pressure 148/79 H Blood Pressure Mean Pulse Ox 92 94 Oxygen Delivery Method Room Air Positive well nourished General Appearance ED: NAD; Negative for pallor HEENT Reports moist mucous membranes atraumatic Eyes PERRL and EOMs intact bilaterally General Eye ED: Negative for pale conjunctiva or scleral icterus Neck no lymphadenopathy and supple Cardio regular rate and regular rhythm GI non-tender and non-distended Auscultation: normoactive bowel sounds Palpation: soft Back/Spine normal to inspection Neuro oriented x3, CN's II-XII intact bilaterally and no sensory deficits noted Sensorium / Orientation: alert and oriented to person Motor Exam: strength 5/5 throughout Psych mental status grossly normal Thought Process: normal thought process Skin General Skin Exam: Negative for jaundice or pallor MDM MDM MDM Narrative Medical decision making narrative: Patient presenting with chest pressure and shortness of breath. Patient states that she has no history of DVT/PE. She says she has a cardiac history but is unsure what this is. Review the medical record shows that she has some aortic stenosis history, hypertension, nonrheumatic aortic valve insufficiency. She denies history of [place]. She denies history of COPD asthma. On examination her lungs are clear. She is slightly tachypneic at 22-23 but her pulse is 72 and her pulse ox is 94-96. EKG was obtained and on my interpretation this is a normal sinus rhythm with a ventricular to 74 bpm. There is some T wave inversions noted in V4 through V6. There are no ST elevations or depressions. Her initial high-sensitivity troponin is 24 and her 2-hour delta troponin is 25. Chest x-ray on my interpretation shows no acute cardiopulmonary process however the radiologist does interpret this as possible right lower lobe infiltrate. Patient's lab work shows that she is pancytopenic with a white blood cell count of 2.8, hemoglobin of 10.5, hematocrit 30.4, platelet count of 93. She is also lymphopenic. She was leukopenic at 3.7 in February 2021. Her hemoglobin at that time was normal. Platelets were low at 125. Looking back in the medical record she has a history of pancytopenia. When asking the patient why she has it she does not know. She states that she follows regularly with her lupus doctor. Her D-dimer ended up being elevated today and her CTA was performed which did not show PEs but did show some very small pleural effusions. There is some mediastinal and bilateral axillary lymphadenopathy. This is of unclear etiology. Given that her vital signs are stable and she has a history of being pancytopenic in the past I do not believe this is emergent. I recommended that she follow-up with her lupus physician. I also did put in a consult for the [facility] fast pass to see if I could get her into a landing signal officer quicker. Impression: 1. Pancytopenia 2. Chest pain 3. Dyspnea 4. Mediastinal adenopathy 5. Axillary adenopathy Lab Data Attestation: I reviewed the patient's lab results. Labs: Laboratory Results - last 24 hr 05/09/21 05/09/21 05/09/21 21:04 21:04 21:04 WBC 2.8 L RBC 3.77 L Hgb 10.5 L Hct 30.4 L MCV 80.6 L MCH 27.9 MCHC 34.5 RDW Std Deviation 41.1 RDW Coeff of Giselle 14.3 Plt Count 93 L MPV 10.2 Immature Gran % (Auto) 0.700 Neut % (Auto) 87.8 H Lymph % (Auto) 9.7 L Metcalfe % (Auto) 1.8 Eos % (Auto) 0.0 Baso % (Auto) 0.0 Absolute Neuts (auto) 2.4 Absolute Lymphs (auto) 0.27 L Nucleated RBC % 0 Differential Comment SEE COMMENT Diff Path Review May foll Platelet Estimate MOD DEC RBC Morphology N CHROM Anisocytosis RARE Microcytosis RARE D-Dimer Quant (PE/DVT) 0.70 H* Sodium 141 Potassium 4.0 Chloride 114 H Carbon Dioxide 20.0 L Anion Gap 7 BUN 17 Creatinine 0.91 Estim Creat Clear Calc 60.45 Est GFR (MDRD) Af Amer 85 Est GFR (MDRD) Non-Af 70 BUN/Creatinine Ratio 18.6 Glucose 177 H Calcium 7.9 L Troponin I High Sens 24 05/09/21 23:02 WBC RBC Hgb Hct MCV MCH MCHC RDW Std Deviation RDW Coeff of Giselle Plt Count MPV Immature Gran % (Auto) Neut % (Auto) Lymph % (Auto) Metcalfe % (Auto) Eos % (Auto) Baso % (Auto) Absolute Neuts (auto) Absolute Lymphs (auto) Nucleated RBC % Differential Comment Diff Path Review Platelet Estimate RBC Morphology Anisocytosis Microcytosis D-Dimer Quant (PE/DVT) Sodium Potassium Chloride Carbon Dioxide Anion Gap BUN Creatinine Estim Creat Clear Calc Est GFR (MDRD) Af Amer Est GFR (MDRD) Non-Af BUN/Creatinine Ratio Glucose Calcium Troponin I High Sens 25 Radiography Diagnostic Testing: Clinical Impression(s) from Imaging Studies Chest X-Ray 05/09/21 20:54 IMPRESSION: Possible mild right basilar infiltrate. Electronically Signed: Paolo Ivey DO at 22:23 EST , Chest CTA 05/09/21 21:44 IMPRESSION: No demonstrated pulmonary embolism or arterial dissection. Mild mediastinal adenopathy. Axillary adenopathy. Bilateral pleural effusions with basilar atelectasis. Borderline prominence of the ascending aorta. Electronically Signed: Paolo Ivey DO at 23:00 EST , Discharge Plan Triage Chief Complaint: Shortness of Breath ED Provider: Bernardino Dasilva Dx/Rx/DC Orders Instructions: Neutropenia, Thrombocytopenia, ED Anemia, Type Not Specified (Adult), ED Dyspnea Prescriptions: No Action ergocalciferol (vitamin D2) 50,000 unit capsule 50,000 unit PO QWEEK RF: 0 lisinopril 10 mg tablet 10 mg PO DAILY RF: 0 aspirin 81 MG tablet,chewable 81 mg PO DAILY@0800 RF: 0 hydroxychloroquine 200 MG tablet 1.5 tab PO DAILYCM RF: 0 levetiracetam 1,000 MG tablet 1,000 mg PO BID RF: 0 mycophenolate mofetil 500 mg tablet 500 mg PO BID RF: 0 prednisone 20 mg tablet 40 mg PO DAILY RF: 0 Other Ambulatory Orders: Fast Pass: Oncology Referral [facility] (Routine) Facility: [facility] - Location: [facility] Ordered By: Dr. Bernardino Dasilva Primary Care Provider: Kennedy Jaquez Referrals: Kennedy Jaquez MD [Primary Care Provider] - Disposition Disposition: Home, Self Care Discharge Date/Time: 05/10/21 00:04
[2021-05-09 21:19] LABS: Absolute Lymphocyte Count 0.27 X10^3/uL (0.83-4.51); Absolute Neutrophil Count 2.4 X10^3/uL (2.0-7.7); Hematocrit 30.4 % (37-47); Hemoglobin 10.5 g/dL (12.0-15.0); Lymphocyte # 0.27 X10^3/ul (0.83-4.51); Lymphocyte % 9.7 % (19-41); Mean Corp Hgb Conc 34.5 g/dL (32-36); Mean Corpuscular Hgb 27.9 pg (27.0-32.0); Mean Corpuscular Volume 80.6 fL (81-99); Mean Platelet Vol. 10.2 fl (6.2-12.0); Monocyte# 0.05 X10^3/uL; Monocyte% 1.8 % (0-10); NRBC Flagged by Analyzer 0 % (0-5); Neutrophil # 2.43 X10^3/uL (2.7-7.7); Neutrophil % 87.8 % (47-70); POSITIVE COUNT YES; POSITIVE DIFFERENTIAL YES; Platelet Count 93 K/mm3 (150-450); RBC Distribution Width CV 14.3 % (11.6-14.6); RBC Distribution Width SD 41.1 fl (35.1-43.9); Red Blood Count 3.77 M/mm3 (4.2-5.4); White Blood Count 2.8 K/mm3 (4.4-11.0)
[2021-05-09 21:29] LABS: Differential Indicated SCAN CRITERIA MET
[2021-05-09 21:30] LABS: Anion Gap 7 (5-15); BUN 17 mg/dL (7-18); BUN/Creat Ratio 18.6 RATIO (10-20); Calcium,Total 7.9 mg/dL (8.5-10.1); Chloride 114 mmol/L (98-107); Creatinine, Serum 0.91 mg/dL (0.55-1.02); EST Glomerular Filtration Rate 70 mL/min (>60); Est Glom Filt Rate - Afr Amer 85 mL/min (>60); Estimated Creatinine Clearance 60.45 ml/min; Glucose 177 mg/dL (74-106); Sodium Level 141 mmol/L (136-145); Troponin-I HS 24 pg/mL (3.0-54.0)
--- NOTE | 2021-05-09 21:44 | CT_ITS ---
STUDY: CTA CHEST REASON FOR EXAM: Female, 46 years old. Dyspnea RADIATION DOSAGE (If Supplied By Facility): CTDIvol = ( 13.74 ) mGy, DLP = ( 449.21 ) mGycm TECHNIQUE: The examination was performed with the intravenous administration of IV 100mL Isovue-370. Post-processing of the angiographic images was performed, with multiplanar reformation and 3D reconstruction. Individualized dose optimization techniques were used for this CT. COMPARISON: None. FINDINGS: Normal enhancement of the main pulmonary artery and right and left pulmonary arteries. Normal enhancement of the bilateral peripheral pulmonary arteries. There is no demonstrated pulmonary embolism. Borderline ascending aorta measuring 4 cm. There is no demonstrated aortic dissection. Normal heart and pericardium. Mild mediastinal adenopathy. Normal hilar regions. Normal visualized trachea and bronchi. The lungs are well expanded. Bilateral pleural effusions with mild basilar atelectasis. Normal pleura. Normal chest wall structures. Bilateral axillary adenopathy. Normal osseous structures. Normal visualized upper abdomen. CT/CTA Chest W/WO Contrast IMPRESSION: No demonstrated pulmonary embolism or arterial dissection. Mild mediastinal adenopathy. Axillary adenopathy. Bilateral pleural effusions with basilar atelectasis. Borderline prominence of the ascending aorta. Electronically Signed: Paolo Ivey DO at 23:00 EST Reading Location ID and State: [facility] / [place] Tel [phone], Service support ,
[2021-05-09 21:54] LABS: Anisocytosis RARE; Microcytosis RARE; Platelet Estimate MOD DEC (ADEQ); Red Cell Morphology N CHROM NORMAL (NORM C&C)
[2021-05-09 23:08] VITALS: PULSE 62; RESP 20; O2SAT 92
[2021-05-09 23:36] LABS: Troponin-I HS 25 pg/mL (3.0-54.0)
[2021-05-10 00:03] VITALS: BP 148/79; PULSE 72; RESP 23; O2SAT 94
[2021-05-12 14:05] LABS: Pathologist Review Reviewed
== END 2021-05-10 00:04 | disposition home or self-care (01) ==
PROVIDERS: Emergency Provider Student in an Organized Health Care Education/Training Program; PCP Family Medicine; Visit Provider Student in an Organized Health Care Education/Training Program
DX: R59.1 Generalized enlarged lymph nodes (principal); D61.818 Other pancytopenia; I35.2 Nonrheumatic aortic (valve) stenosis with insufficiency; R06.00 Dyspnea, unspecified; I10 Essential (primary) hypertension; Z87.891 Personal history of nicotine dependence; R00.2 Palpitations; R50.9 Fever, unspecified; Z79.82 Long term (current) use of aspirin
CPT/HCPCS: 71045; 71275; 80048; 84484; 85025; 85379; 87426; 93005; 99284; Q9967; A4216

== ENCOUNTER 2021-05-16 14:52 | Outpatient (CLI) | payer OTHER, SELFPAY | END 2021-05-16 23:59 | disposition home or self-care (01) | LOC: LABSPEC 14:54 | PROVIDERS: PCP Family Medicine; Referring Provider Internal Medicine Medical Oncology; Visit Provider Internal Medicine Medical Oncology | DX: D61.818 Other pancytopenia (principal) | CPT/HCPCS: 82274 ==

== ENCOUNTER 2021-05-22 10:46 | Outpatient (CLI) | payer OTHER, SELFPAY ==
--- NOTE | 2021-05-22 10:51 | VDLE_ITS ---
Reason For Study: Elevated D-dimer RIGHT LEFT GSV is normal. GSV is normal. CFV is compressible, spontaneous, phasic, CFV is compressible, spontaneous, phasic, competent and demonstrates normal competent, and demonstrates normal augmentation. augmentation. FV is compressible, spontaneous, phasic, FV is compressible, spontaneous, phasic, competent and demonstrates normal competent and demonstrates normal augmentation. augmentation. POP V is compressible, spontaneous, phasic, POP V is compressible, spontaneous, phasic, competent and demonstrates normal competent and demonstrates normal augmentation. augmentation. T/P Trunk is compressible. T/P Trunk is compressible. PTV is compressible. PTV is compressible. RT PerV is compressible. LT PerV is compressible. Procedure This is a venous duplex using B-mode, color flow and spectral Doppler. Exam performed in department. A preliminary report was called and/or faxed to [facility]. VL/Venous Duplex US - Christiano Extrem Interpretation Summary No evidence for acute deep venous thrombosis bilateral lower extremities with p atent and compressible bilateral great saphenous veins. Ordering Physician: Alex Harrell Referring Physician: Kennedy Jaquez Performed By: Rosalina Burks RVT
== END 2021-05-22 23:59 | disposition home or self-care (01) ==
LOC: CVS 10:48
PROVIDERS: PCP Family Medicine; Referring Provider Internal Medicine Medical Oncology; Visit Provider Internal Medicine Medical Oncology
DX: R79.89 Other specified abnormal findings of blood chemistry (principal); Z01.810 Encounter for preprocedural cardiovascular examination
CPT/HCPCS: 93970

== ENCOUNTER 2021-06-09 14:39 | Outpatient (CLI) | payer OTHER, SELFPAY ==
[2021-06-09 14:46] LABS: Bacteria 0 SEEN /hpf (None Seen); Mucous, Urine 0 SEEN /hpf (<or=2+); White Blood Cells 0 SEEN /hpf (0-5)
[2021-06-09 15:43] LABS: Color, Urine Yellow (Yellow); Glucose, Dipstick Normal (Normal); Ketone-Dipstick 5 mg/dl (Negative); Leukocyte Esterase-Dipstick 25 /ul (Negative); Nitrite-Dipstick Negative (Negative); Occult Blood-Urine 150 /ul (Negative); Protein-Dipstick 15 mg/dl (Negative); Specific Gravity, Urine 1.025 (1.002-1.030); Urine Bilirubin Dipstick Negative (Negative); Urine Clarity Clear (Clear); Urine Urobilinogen Normal (Normal)
[2021-06-09 15:49] LABS: Erythrocyte Sedimentation Rate 9 mm/hr (0-30)
[2021-06-09 15:51] LABS: Absolute Lymphocyte Count 0.78 X10^3/uL (0.83-4.51); Absolute Neutrophil Count 3.5 X10^3/uL (2.0-7.7); Basophil# 0.02 X10^3/uL; Basophil% 0.4 % (0-1); Eosinophil# 0.05 X10^3/uL; Hematocrit 34.3 % (37-47); Hemoglobin 12.2 g/dL (12.0-15.0); Lymphocyte # 0.78 X10^3/ul (0.83-4.51); Mean Corp Hgb Conc 35.6 g/dL (32-36); Mean Corpuscular Hgb 28.1 pg (27.0-32.0); Mean Platelet Vol. 10.5 fl (6.2-12.0); Monocyte# 0.42 X10^3/uL; Monocyte% 8.6 % (0-10); NRBC Flagged by Analyzer 0 % (0-5); Neutrophil # 3.54 X10^3/uL (2.7-7.7); Platelet Count 111 K/mm3 (150-450); RBC Distribution Width CV 13.1 % (11.6-14.6); RBC Distribution Width SD 37.5 fl (35.1-43.9); Red Blood Count 4.34 M/mm3 (4.2-5.4); White Blood Count 4.9 K/mm3 (4.4-11.0)
[2021-06-09 16:00] LABS: Red Blood Cells-Urine 0-5 SEEN /hpf (0-5); Squamous Epithelial Cells - UA 0-5 SEEN /hpf (5-10)
[2021-06-09 16:07] LABS: AST(SGOT) 21 U/L (15-37); Alanine Aminotransfer ALT/SGPT 26 U/L (13-56); Albumin, Serum 3.6 g/dL (3.2-5.0); BUN 17 mg/dL (7-18); CPK Total, Creatine Kinase 85 U/L (26-192); Creatinine, Serum 1.16 mg/dL (0.55-1.02); EST Glomerular Filtration Rate 53 mL/min (>60); Est Glom Filt Rate - Afr Amer 64 mL/min (>60)
[2021-06-09 16:19] LABS: Protein:Creat Ratio 153 mg/g CRE (0-200)
== END 2021-06-09 23:59 | disposition home or self-care (01) ==
PROVIDERS: PCP Family Medicine; Referring Provider Internal Medicine Rheumatology; Visit Provider Internal Medicine Rheumatology
DX: M32.9 Systemic lupus erythematosus, unspecified (principal)
CPT/HCPCS: 36415; 81001; 82040; 82550; 82565; 82570; 84156; 84450; 84460; 84520; 85025; 85652; 86140

== ENCOUNTER 2021-06-11 13:36 | Outpatient (CLI) | payer OTHER, SELFPAY ==
--- NOTE | 2021-06-11 15:23 | NEURO ---
NCS and/or EMG Patient Report Ordering Doctor: Kennedy Jaquez DATE OF SERVICE: 06/11/21 Maria Luisa presents for electrodiagnostic testing of the upper limbs. She reports numbness and tingling in both hands, worse on the left side. Electrodiagnostic findings: Right median motor nerve demonstrates distal latency with normal amplitude and conduction velocity. Left median motor nerve demonstrates prolonged distal latency with normal amplitude and conduction velocity. Ulnar motor response is within normal limits. There is prolonged median sensory latency at the wrist bilaterally. Normal ulnar and radial sensory responses. Median and ulnar F waves are within normal limits. On needle EMG, all muscles tested in the upper limbs showed no evidence of denervation with normal motor unit action potentials. Electrodiagnostic impression: This is an abnormal study in the upper limbs. 1. Electrodiagnostic findings demonstrate bilateral median mononeuropathy. This consistent with a mild to moderate bilateral carpal tunnel syndrome.
== END 2021-06-11 23:59 | disposition home or self-care (01) ==
LOC: PSN 13:37
PROVIDERS: PCP Family Medicine; Referring Provider Family Medicine; Visit Provider Family Medicine
DX: M25.539 Pain in unspecified wrist (principal)
CPT/HCPCS: 95886; 95913

== ENCOUNTER → 2021-08-14 | Outpatient (CLI) | payer OTHER, SELFPAY ==
--- NOTE | 2021-08-14 14:43 | RAD_ITS ---
HISTORY: LOW BACK PAIN. TECHNIQUE: XR Spine Lumbar Min 4 Views. COMPARISON: None. FINDINGS: VERTEBRAE: Vertebral body heights preserved. Posterior elements appear intact. ALIGNMENT: No significant anterior or posterior subluxation. INTERVERTEBRAL DISCS: Disc spaces maintained. Mild degenerative endplate changes of the lower thoracic spine. SOFT TISSUES: Tubal ligation clips in the pelvis. RAD/L/S Spine Min 4 Views IMPRESSION: No acute fracture or dislocation identified in the lumbar spine. Electronically Signed: Nelda Koenig MD at 16:40 EDT ,
== END | disposition home or self-care (01) ==
LOC: RAD 14:42
PROVIDERS: PCP Family Medicine; Referring Provider Internal Medicine Medical Oncology; Visit Provider Internal Medicine Medical Oncology
DX: M54.50 Low back pain, unspecified (principal)
CPT/HCPCS: 36415; 72110; 80053; 82728; 83540; 83550; 83615; 85025

== ENCOUNTER → 2021-09-12 | Outpatient (CLI) | payer OTHER, SELFPAY ==
--- NOTE | 2021-09-12 13:11 | VDLE_ITS ---
Reason For Study: Swelling RIGHT GSV is normal. CFV is compressible, spontaneous, phasic, competent and demonstrates normal augmentation. FV is compressible, spontaneous, phasic, competent and demonstrates normal augmentation. POP V is compressible, spontaneous, phasic, competent and demonstrates normal augmentation. T/P Trunk is compressible. PTV is compressible. RT PerV is compressible. Procedure This is a venous duplex using B-mode, color flow and spectral Doppler. Exam performed in department. A preliminary report was called and/or faxed to [facility]. VL/Venous Duplex US, Unilateral Interpretation Summary There is no evidence of right lower extremity deep vein thrombosis. Right great saphenous vein appears patent and compressible segmentally. Ordering Physician: Alex Harrell Referring Physician: Kennedy Jaquez Performed By: Rosalina Burks RVT
== END | disposition home or self-care (01) ==
LOC: CVS 13:10
PROVIDERS: PCP Family Medicine; Referring Provider Internal Medicine Medical Oncology; Visit Provider Internal Medicine Medical Oncology
DX: R79.89 Other specified abnormal findings of blood chemistry (principal); M79.89 Other specified soft tissue disorders
CPT/HCPCS: 93971

== ENCOUNTER → 2021-09-15 | Outpatient (CLI) | payer OTHER, SELFPAY ==
--- NOTE | 2021-09-15 15:11 | BI_ITS ---
MAMMOGRAPHY - BILATERAL SCREENING REASON FOR EXAM: Female, 46 years old. Routine annual screening examination. PERTINENT HISTORY: Non-contributory. TECHNIQUE: Digital bilateral breast mary lou (3D mammographic acquisition) in the CC and MLO projections. 2-D mediolateral oblique (MLO) and craniocaudad (CC) views of both breasts were obtained. CAD: Full Field Digital Mammography with Computer Added Detection was performed. COMPARISON: Comparison is made with prior study dated 09/06/2020 and 08/17/2019. FINDINGS: Breast Composition: The breasts are heterogeneously dense, which may obscure small masses. There are no dominant masses or suspicious calcifications. Stable 7 mm well-defined nodule with a central fatty hilum in the inferior central portion of the right breast. This most likely represents a small intramammary lymph node. No other significant abnormalities are identified. There has been no significant change since the prior study. BI/SCRN MAMM (CAD)W/MARY LOU BILAT IMPRESSION: Stable bilateral screening mammogram. Yearly follow-up mammogram recommended. (A) ASSESSMENT CATEGORY: BIRADS Category 2: Benign. A letter regarding these results will be sent to the patient by the facility within 30 days. Approximately 10% of breast cancers are not detected by mammography. A normal mammogram should not delay biopsy of a clinically suspicious abnormality. [id number] Electronically Signed: Chris Sandoval MD at 8:30 EDT ,
== END | disposition home or self-care (01) ==
LOC: OPBI 15:10
PROVIDERS: PCP Family Medicine; Visit Provider Obstetrics & Gynecology
DX: Z12.31 Encounter for screening mammogram for malignant neoplasm of breast (principal)
CPT/HCPCS: 77063; 77067

== ENCOUNTER → 2021-10-16 | Outpatient (CLI) | payer OTHER, SELFPAY ==
[2021-10-16 15:51] LABS: Bacteria 0 SEEN /hpf (None Seen); Mucous, Urine 0 SEEN /hpf (<or=2+); Red Blood Cells-Urine 0 SEEN /hpf (0-5); Squamous Epithelial Cells - UA 0 SEEN /hpf (5-10); White Blood Cells 0 SEEN /hpf (0-5)
[2021-10-16 17:53] LABS: Color, Urine Yellow (Yellow); Glucose, Dipstick Normal (Normal); Ketone-Dipstick Negative (Negative); Leukocyte Esterase-Dipstick Negative /ul (Negative); Nitrite-Dipstick Negative (Negative); Occult Blood-Urine Negative /ul (Negative); Protein-Dipstick Negative (Negative); Specific Gravity, Urine 1.015 (1.002-1.030); Urine Bilirubin Dipstick Negative (Negative); Urine Clarity Clear (Clear); Urine Urobilinogen Normal (Normal)
[2021-10-16 17:57] LABS: Absolute Lymphocyte Count 0.66 X10^3/uL (0.83-4.51); Absolute Neutrophil Count 3.5 X10^3/uL (2.0-7.7); Hematocrit 29.7 % (37-47); Hemoglobin 10.4 g/dL (12.0-15.0); Lymphocyte # 0.66 X10^3/ul (0.83-4.51); Lymphocyte % 14.4 % (19-41); Mean Corpuscular Hgb 28.6 pg (27.0-32.0); Mean Corpuscular Volume 81.6 fL (81-99); Mean Platelet Vol. 10.3 fl (6.2-12.0); Monocyte# 0.36 X10^3/uL; Monocyte% 7.9 % (0-10); NRBC Flagged by Analyzer 0 % (0-5); Neutrophil # 3.52 X10^3/uL (2.7-7.7); Platelet Count 166 K/mm3 (150-450); RBC Distribution Width CV 12.5 % (11.6-14.6); RBC Distribution Width SD 37.4 fl (35.1-43.9); Red Blood Count 3.64 M/mm3 (4.2-5.4); White Blood Count 4.6 K/mm3 (4.4-11.0)
[2021-10-16 18:19] LABS: Vitamin D,25 Hydroxy 99.2 ng/mL
[2021-10-16 18:21] LABS: AST(SGOT) 20 U/L (15-37); Alanine Aminotransfer ALT/SGPT 21 U/L (13-56); Albumin, Serum 3.6 g/dL (3.2-5.0); BUN 19 mg/dL (7-18); Creatinine, Serum 0.93 mg/dL (0.55-1.02); EST Glomerular Filtration Rate 69 mL/min (>60); Est Glom Filt Rate - Afr Amer 83 mL/min (>60)
[2021-10-16 18:30] LABS: Protein, Urine (Random) 13.3 mg/dL (<11.9); Protein:Creat Ratio 218 mg/g CRE (0-200)
[2021-10-20 10:45] LABS: Complement C3 109 mg/dL (82-167)
== END | disposition home or self-care (01) ==
PROVIDERS: PCP Family Medicine; Referring Provider Internal Medicine Rheumatology; Visit Provider Internal Medicine Rheumatology
DX: M32.9 Systemic lupus erythematosus, unspecified (principal); E55.9 Vitamin D deficiency, unspecified; Z79.899 Other long term (current) drug therapy
CPT/HCPCS: 36415; 81001; 82040; 82306; 82565; 82570; 84156; 84450; 84460; 84520; 85025; 86140; 86160

== ENCOUNTER → 2021-10-21 | Outpatient (CLI) | payer OTHER, SELFPAY ==
[2021-10-21 13:21] LABS: Mucous, Urine 0 SEEN /hpf (<or=2+); Red Blood Cells-Urine 0 SEEN /hpf (0-5)
[2021-10-21 15:20] LABS: Absolute Lymphocyte Count 0.74 X10^3/uL (0.83-4.51); Absolute Neutrophil Count 3.6 X10^3/uL (2.0-7.7); Basophil# 0.02 X10^3/uL; Basophil% 0.4 % (0-1); Eosinophil# 0.03 X10^3/uL; Eosinophils% 0.6 % (0-5); Hematocrit 31.2 % (37-47); Hemoglobin 10.2 g/dL (12.0-15.0); Lymphocyte # 0.74 X10^3/ul (0.83-4.51); Lymphocyte % 15.3 % (19-41); Mean Corp Hgb Conc 32.7 g/dL (32-36); Mean Corpuscular Hgb 27.5 pg (27.0-32.0); Mean Corpuscular Volume 84.1 fL (81-99); Mean Platelet Vol. 10.5 fl (6.2-12.0); Monocyte% 8.3 % (0-10); NRBC Flagged by Analyzer 0 % (0-5); Neutrophil # 3.57 X10^3/uL (2.7-7.7); Neutrophil % 73.7 % (47-70); Platelet Count 170 K/mm3 (150-450); RBC Distribution Width CV 12.8 % (11.6-14.6); Red Blood Count 3.71 M/mm3 (4.2-5.4); White Blood Count 4.8 K/mm3 (4.4-11.0)
[2021-10-21 15:23] LABS: Color, Urine Straw (Yellow); Glucose, Dipstick Normal (Normal); Ketone-Dipstick Negative (Negative); Leukocyte Esterase-Dipstick 500 /ul (Negative); Nitrite-Dipstick Negative (Negative); Occult Blood-Urine Negative /ul (Negative); Protein-Dipstick Negative (Negative); Specific Gravity, Urine 1.015 (1.002-1.030); Urine Bilirubin Dipstick Negative (Negative); Urine Clarity Clear (Clear); Urine Urobilinogen Normal (Normal)
[2021-10-21 15:38] LABS: Vitamin B12 251 pg/mL (211-911)
[2021-10-21 15:43] LABS: Bacteria 2+ /hpf (None Seen); Squamous Epithelial Cells - UA 5-10 SEEN /hpf (5-10); White Blood Cells 10-25 SEEN /hpf (0-5)
[2021-10-21 15:59] LABS: ALB/GLOB Ratio 0.9 RATIO (0.9-2.4); AST(SGOT) 16 U/L (15-37); Alanine Aminotransfer ALT/SGPT 22 U/L (13-56); Albumin, Serum 3.4 g/dL (3.2-5.0); Alkaline Phosphatase 63 U/L (45-117); Anion Gap 7 (5-15); BUN 17 mg/dL (7-18); BUN/Creat Ratio 21.2 RATIO (10-20); Calcium,Total 8.8 mg/dL (8.5-10.1); Chloride 103 mmol/L (98-107); Cholesterol 174 mg/dL (200); EST Glomerular Filtration Rate 81 mL/min (>60); Est Glom Filt Rate - Afr Amer 98 mL/min (>60); Ferritin 261 ng/mL (8-252); Globulin 3.6 g/dL (2.2-4.2); Glucose 83 mg/dL (74-106); High Density Lipoprotein 44 mg/dL; Iron 39 ug/dL (50-170); Iron Binding Capacity,Total 308 ug/dL (250-450); Potassium 3.5 mmol/L (3.5-5.1); Sodium Level 136 mmol/L (136-145); Thyroid Stim Hormone (TSH) 1.33 uIU/mL (0.358-3.74); Triglycerides 178 mg/dL; Very Low Density Lipoprotein 36 mg/dL (5-40)
[2021-10-21 16:03] LABS: Hemoglobin A1c 5.1 % (3.8-5.6)
== END | disposition home or self-care (01) ==
LOC: MTLAB 13:14
PROVIDERS: PCP Family Medicine; Referring Provider Family Medicine; Visit Provider Family Medicine
DX: D50.9 Iron deficiency anemia, unspecified (principal); R73.09 Other abnormal glucose; I10 Essential (primary) hypertension
CPT/HCPCS: 80053; 80061; 80177; 81001; 82607; 82728; 82746; 83036; 83540; 83550; 84443; 85025

== ENCOUNTER → 2021-10-30 | Outpatient (CLI) | payer OTHER, SELFPAY ==
--- NOTE | 2021-10-30 14:57 | CT_ITS ---
STUDY: CT ABDOMEN AND PELVIS WITH CONTRAST REASON FOR EXAM: Female, 46 years old. Right lower quadrant pain and fever RADIATION DOSAGE (If Supplied By Facility): CTDIvol = ( 16.41 ) mGy, DLP = ( 1167.02 ) mGycm TECHNIQUE: Transaxial images were obtained from the dome of the diaphragm to the symphysis pubis with oral contrast. Oral and amp; IV Readi-CAT and amp; 100mL Isovue-370 was administered. Sagittal and coronal images were reconstructed. Individualized dose optimization techniques were used for this CT. COMPARISON: None. FINDINGS: Small left pleural effusion without a superimposed pulmonary process. The visualized portions of the heart are within normal limits. Normal liver. Normal gallbladder and extrahepatic biliary system. Normal spleen. Normal pancreas. Normal bilateral adrenal glands. No obstructive uropathy, or suspicious solid renal lesion. There are simple right renal cysts. Incidental note is made of a retroaortic left renal vein Normal visualized stomach. Normal small intestine. Normal colon. The appendix is visualized and appears normal. Appendix seen on coronal recon images 61-66. Normal abdominal aorta. Normal inferior vena cava. Normal retroperitoneum. Normal urinary bladder. Normal-appearing uterus. Evidence of previous tubal ligation. There is a complex 4.68 cm left ovarian cyst. Dedicated pelvic ultrasound is recommended for further evaluation Normal abdominal wall. Normal osseous structures. CT/Abdomen/Pelvis WITH Contrast IMPRESSION: No suspicious solid organ abnormality No free intraperitoneal fluid, air, or suspicious adenopathy. Normal appendix visualized 4.68 cm complex left ovarian cyst, dedicated pelvic ultrasound recommended for further evaluation Electronically Signed: Rogelio Lucio MD at 10:19 EDT ,
== END | disposition home or self-care (01) ==
LOC: MRI 14:42 → CT 15:00
PROVIDERS: PCP Family Medicine; Visit Provider Family Medicine
DX: R10.9 Unspecified abdominal pain (principal)
CPT/HCPCS: 74177; Q9967

== ENCOUNTER → 2021-11-06 | Outpatient (CLI) | payer OTHER, SELFPAY ==
--- NOTE | 2021-11-06 06:42 | MRI_ITS ---
STUDY: MRI BRAIN WITH AND WITHOUT CONTRAST REASON FOR EXAM: Female, 46 years old. CONFUSION, MEMORY ISSUES TECHNIQUE: Standardized multiplanar fat and water weighted pulse sequences were obtained. IV 19cc dotarem was administered for the contrast portion of the examination. COMPARISON: None. FINDINGS: Normal size of the ventricles and extra-axial spaces for the patient''s age. There are a limited number of small white matter hyperintensities, distributed throughout the deep white matter tracts of the cerebral hemispheres, consistent with mild chronic white matter ischemic changes. There is no evidence for recent intracranial ischemia or other cause of cytotoxic edema on diffusion weighted imaging (DWI). There are no definitive ovoid demyelinating plagues of the supratentorial brain, brainstem or cerebellum. Clinical correlation and evaluation for the possibility of multiple sclerosis (MS) is recommended. No focal brain parenchymal lesions or edema is present. No abnormal enhancement of the brain parenchyma or meninges or dura is seen on the current study. There is no evidence of intracranial hemorrhage or hemosiderin staining. Normal bilateral basal ganglia. Normal thalami. There is no extra-axial fluid accumulation. Normal flow voids within the major intracranial circulation suggesting patency by spin echo criteria. Normal venous enhancement. There is no enhancing intra-axial or extra-axial abnormality. Normal sella turcica, pituitary gland, infundibular stalk, optic chiasm and hypothalamus. Normal tectal plate and pineal gland. Normal midbrain, anastacio and medulla. Normal cerebellum. Normal basal cisterns. Normal bilateral temporal bones. Normal bilateral internal auditory canals. No demonstrated orbital abnormality, within the constraints of a routine brain study. Normal visualized paranasal sinuses. Normal calvarium and skull base. Normal visualized soft tissue structures. Normal visualized upper cervical spine. MRI/Brain W/WO Contrast IMPRESSION: 1. Mild periventricular and subcortical white matter chronic microvascular ischemic changes. 2. There are no definitive ovoid demyelinating plagues of the supratentorial brain, brainstem or cerebellum. Clinical correlation and evaluation for the possibility of multiple sclerosis (MS) is recommended. No focal brain parenchymal lesions or edema is present. No abnormal enhancement of the brain parenchyma or meninges or dura is seen on the current study. Electronically Signed: Barnden More MD at 9:02 EDT ,
== END | disposition home or self-care (01) ==
LOC: MRI 06:28
PROVIDERS: PCP Family Medicine; Visit Provider Family Medicine
DX: R41.0 Disorientation, unspecified (principal); G93.9 Disorder of brain, unspecified
CPT/HCPCS: 70553; A9575

== ENCOUNTER → 2021-11-12 | Outpatient (CLI) | payer OTHER, SELFPAY ==
[2021-11-12 12:09] LABS: Absolute Lymphocyte Count 0.34 X10^3/uL (0.83-4.51); Absolute Neutrophil Count 3.5 X10^3/uL (2.0-7.7); Basophil# 0.02 X10^3/uL; Basophil% 0.5 % (0-1); Eosinophils% 2.3 % (0-5); Hematocrit 32.8 % (37-47); Hemoglobin 10.9 g/dL (12.0-15.0); Lymphocyte # 0.34 X10^3/ul (0.83-4.51); Lymphocyte % 7.8 % (19-41); Mean Corp Hgb Conc 33.2 g/dL (32-36); Mean Corpuscular Hgb 27.3 pg (27.0-32.0); Mean Platelet Vol. 10.2 fl (6.2-12.0); Monocyte% 6.9 % (0-10); NRBC Flagged by Analyzer 0 % (0-5); Neutrophil # 3.53 X10^3/uL (2.7-7.7); Neutrophil % 81.1 % (47-70); POSITIVE DIFFERENTIAL YES; Platelet Count 173 K/mm3 (150-450); RBC Distribution Width CV 12.9 % (11.6-14.6); RBC Distribution Width SD 38.7 fl (35.1-43.9); White Blood Count 4.4 K/mm3 (4.4-11.0)
[2021-11-12 12:14] LABS: Differential Indicated SCAN CRITERIA MET
[2021-11-12 12:16] LABS: Erythrocyte Sedimentation Rate 25 mm/hr (0-30)
[2021-11-12 12:32] LABS: CPK Total, Creatine Kinase 49 U/L (26-192); Magnesium 1.7 mg/dL (1.6-2.6)
[2021-11-12 12:32] LABS: Vitamin B12 345 pg/mL (211-911)
[2021-11-12 12:47] LABS: ALB/GLOB Ratio 0.9 RATIO (0.9-2.4); AST(SGOT) 20 U/L (15-37); Alanine Aminotransfer ALT/SGPT 19 U/L (13-56); Albumin, Serum 3.4 g/dL (3.2-5.0); Alkaline Phosphatase 77 U/L (45-117); Anion Gap 9 (5-15); BUN 15 mg/dL (7-18); BUN/Creat Ratio 17.5 RATIO (10-20); Calcium,Total 8.5 mg/dL (8.5-10.1); Chloride 102 mmol/L (98-107); Creatinine, Serum 0.86 mg/dL (0.55-1.02); EST Glomerular Filtration Rate 75 mL/min (>60); Est Glom Filt Rate - Afr Amer 91 mL/min (>60); Ferritin 369 ng/mL (8-252); Globulin 3.6 g/dL (2.2-4.2); Glucose 90 mg/dL (74-106); Iron 39 ug/dL (50-170); Iron Binding Capacity,Total 270 ug/dL (250-450); LDH 210 U/L (84-246); PERCENT IRON SATURATION 14.4 % (15.0-55.0); Potassium 4.1 mmol/L (3.5-5.1); Sodium Level 135 mmol/L (136-145)
[2021-11-12 18:30] LABS: Xtra Tube EP Lab EXTRA TUBE
[2021-11-15 19:06] LABS: Dilute Prothrombin Time (dPT) 93.8 sec (0.0-47.6); Dilute Russell Viper Venom 92.9 sec (0.0-47.0); Hexagonal Phase Phospholipid 2 48 sec (0-11); PTT-LA 102.4 sec (0.0-51.9); PTT-LA Mix 88.2 sec (0.0-48.9); dPT Confirm Ratio 1.96 Ratio (0.00-1.34)
[2021-11-16 08:56] LABS: Interpretation Comment: (.)
[2021-11-19 16:52] LABS: KEPPRA (LEVETIRACETAM) 37.9 ug/mL (10.0-40.0)
== END | disposition home or self-care (01) ==
LOC: MFPLAB 10:26
PROVIDERS: Internal Medicine Medical Oncology; PCP Family Medicine; Referring Provider Family Medicine; Visit Provider Family Medicine
DX: M79.10 Myalgia, unspecified site (principal); R56.9 Unspecified convulsions
CPT/HCPCS: 36415; 80053; 80177; 82550; 82607; 82728; 82746; 83540; 83550; 83615; 83735; 85025; 85652

== ENCOUNTER → 2021-11-13 | Outpatient (CLI) | payer OTHER, SELFPAY ==
[2021-11-13 12:20] LABS: Prolactin 12.9 ng/mL
== END | disposition home or self-care (01) ==
LOC: MFPLAB 10:05
PROVIDERS: PCP Family Medicine; Referring Provider Family Medicine; Visit Provider Family Medicine
DX: R56.9 Unspecified convulsions (principal)
CPT/HCPCS: 36415; 84146

== ENCOUNTER → 2021-11-14 | Outpatient (CLI) | payer OTHER, SELFPAY ==
--- NOTE | 2021-11-14 09:06 | TELEMED_ITS ---
[facility] Tele[facility] has confirmed receipt of a request for visit. This document confirms receipt of the order initiating the consult. To find the results of the consultation, please view the patient's reports for the scanned Telemed Consult.
== END | disposition home or self-care (01) ==
LOC: PSN 08:18
PROVIDERS: PCP Family Medicine; Referring Provider Family Medicine; Visit Provider Family Medicine
DX: G40.909 Epilepsy, unspecified, not intractable, without status epilepticus (principal)
CPT/HCPCS: 95819

== ENCOUNTER → 2021-11-18 | Outpatient (CLI) | payer OTHER, SELFPAY ==
[2021-11-18 12:46] LABS: Basophil# 0.02 X10^3/uL; Basophil% 0.4 % (0-1); Eosinophil# 0.19 X10^3/uL; Eosinophils% 3.6 % (0-5); Hematocrit 34.2 % (37-47); Hemoglobin 11.3 g/dL (12.0-15.0); Lymphocyte % 9.6 % (19-41); Mean Corpuscular Hgb 26.8 pg (27.0-32.0); Mean Corpuscular Volume 81.2 fL (81-99); Mean Platelet Vol. 10.1 fl (6.2-12.0); Monocyte# 0.45 X10^3/uL; Monocyte% 8.6 % (0-10); NRBC Flagged by Analyzer 0 % (0-5); Neutrophil # 4.01 X10^3/uL (2.7-7.7); Neutrophil % 76.8 % (47-70); POSITIVE DIFFERENTIAL YES; Platelet Count 186 K/mm3 (150-450); RBC Distribution Width SD 38.5 fl (35.1-43.9); Red Blood Count 4.21 M/mm3 (4.2-5.4); White Blood Count 5.2 K/mm3 (4.4-11.0)
[2021-11-18 12:55] LABS: Differential Indicated SCAN CRITERIA MET
[2021-11-18 13:02] LABS: T4 Free Direct 1.21 ng/dL (0.76-1.46); Thyroid Stim Hormone (TSH) 0.74 uIU/mL (0.358-3.74)
[2021-11-18 13:12] LABS: Differential Comment SCANNED
[2021-11-20 15:25] LABS: Cancer Antigen 125 51.7 U/mL (0.0-38.1); Carbohydrate Ag 19-9 2261 5 U/mL (0-35); Carcinoembryonic Antigen < 0.3 ng/mL (0.0-4.7)
== END | disposition home or self-care (01) ==
LOC: WOBLAB 10:49
PROVIDERS: PCP Family Medicine; Visit Provider Obstetrics & Gynecology
DX: R10.2 Pelvic and perineal pain (principal)
CPT/HCPCS: 36415; 82378; 84439; 84443; 85025; 86301; 86304

== ENCOUNTER → 2021-12-08 | Outpatient (CLI) | payer OTHER, SELFPAY ==
--- NOTE | 2021-12-08 09:01 | CDU_ITS ---
Reason For Study: STENOSIS Rt. Velocities/BP Lt. Velocities/BP Prox CCA 83.4/6.9 cm/sec. Prox CCA 83.1/18.2 cm/sec. Mid CCA 60.7/17.3 cm/sec. Mid CCA 73.2/19.3 cm/sec. Dist CCA 69.5/24.2 cm/sec. Dist CCA 72.1/21.5 cm/sec. Prox ICA 62.0/15.7 cm/sec. Prox ICA 50.9/22.6 cm/sec. Mid ICA 80.9/29.9 cm/sec. Mid ICA 71.7/32.0 cm/sec. Dist ICA 77.1/31.7 cm/sec. Dist ICA 59.4/30.1 cm/sec. Rt. ICA/CCA = 80.9/60.7=1.3. Lt. ICA/CCA = 71.7/73.2=1.0. Prox ECA 54.4/11.0 cm/sec. Prox ECA 55.6/10.6 cm/sec. Rt. Vert. 46.9/10.0 cm/sec. Lt. Vert. 45.3/16.0 cm/sec. Right Extracranial There is intimal thickening but no significant atherosclerotic plaque noted in the right common carotid artery. There is homogeneous, smooth atherosclerotic plaque noted in the right internal carotid artery. There is no significant atherosclerotic plaque noted in the right external carotid artery. Antegrade flow is noted in the right vertebral artery. Left Extracranial There is intimal thickening but no significant atherosclerotic plaque noted in the left common carotid artery. There is intimal thickening but no significant atherosclerotic plaque noted in the left internal carotid artery. The left internal carotid artery is very tortuous. There is no significant atherosclerotic plaque noted in the left external carotid artery. Antegrade flow is noted in the left vertebral artery. VL/Carotid Duplex Ultrasound Interpretation Summary Mild (<50%) stenosis right extracranial internal carotid. No significant athero sclerotic plaque or stenosis noted in the left internal carotid artery. Flow within the vertebral a rteries is antegrade bilaterally. Ordering Physician: Esvin Hamlin Referring Physician: Esvin Hamlin Performed By: Nancy Sinclair, AVI, RVT
== END | disposition home or self-care (01) ==
PROVIDERS: PCP Family Medicine; Referring Provider Family Medicine; Visit Provider Family Medicine
DX: I65.21 Occlusion and stenosis of right carotid artery (principal)
CPT/HCPCS: 93880

== ENCOUNTER → 2022-01-22 | Outpatient (CLI) | payer OTHER, SELFPAY ==
--- NOTE | 2022-01-22 12:44 | ECHOD_ITS ---
Reason For Study: MURMUR Procedure This was a 2D Doppler, Color Flow transthoracic echocardiogram. Exam performed in department. Left Ventricle Normal LV size. Left ventricular systolic function is normal. The estimated ejection fraction is 60 %. Stage 1 diastolic dysfunction. No regional wall motion abnormalities noted. Right Ventricle Normal RV size. Normal systolic function. Mitral Valve Normal mitral valve. Tricuspid Valve Normal tricuspid valve. Aortic Valve Moderate focal aortic valve calcification. Bicuspid aortic valve. Peak aortic valve gradient 34 mmHg. Mean aortic valve gradient 21 mmHg. Mild to moderate aortic stenosis. Mild (1+) aortic valve insufficiency. Pulmonic Valve Normal pulmonic valve. Great Vessels Mild to moderately dilated aortic root. The pulmonary artery is normal size. Normal inferior vena cava. Pericardium/Pleural No pericardial effusion. MMode/2D Measurements & Calculations LVIDd: 4.2 cm IVSd: 1.6 cm LVOT diam: 2.2 cm LVIDs: 3.2 cm LVPWd: 1.2 cm LVOT area: 4.0 cm2 FS: 24.7 % Ao root diam: 4.0 cm LAV(MOD-bp): 54.5 ml LA A4 area: 17.1 cm2 LAV(MOD-bp) Indexed: 28.5 ml/m2 LAV(MOD-sp2): 52.2 ml LAV(MOD-sp4): 52.0 ml LA dimension(2D): 3.3 cm RA A4 area: 13.5 cm2 Time Measurements MV dec time: 0.30 sec Doppler Measurements & Calculations MV E max jovani: 57.9 cm/sec Lat Peak E' Jovani: 10.2 cm/sec Med Peak E' Jovani: 7.6 cm/sec MV A max jovani: 85.1 cm/sec E/E' lat: 5.7 E/E' med: 7.6 MV E/A: 0.68 Ao V2 max: 294.4 cm/sec AI max jovani: 385.7 cm/sec LV V1 max: 108.3 cm/sec Ao max P.7 mmHg AI max P.5 mmHg LV V1 max P.7 mmHg Ao V2 mean: 217.9 cm/sec AI dec slope: 237.4 cm/sec2 LV V1 mean P.9 mmHg Ao mean P.6 mmHg AI P1/2t: 475.8 msec LV V1 mean: 81.3 cm/sec Ao V2 VTI: 48.5 cm LV V1 VTI: 20.7 cm BUSTER(I,D): 1.7 cm2 BUSTER(V,D): 1.5 cm2 SV(LVOT): 81.9 ml PA V2 max: 75.2 cm/sec PI dec slope: 205.1 cm/sec2 TR max jovani: 223.9 cm/sec TR max P.1 mmHg ECHO/Echo Complete Interpretation Summary Normal LV size. Left ventricular systolic function is normal. The estimated ejection fraction is 60 %. Moderate focal aortic valve calcification. Bicuspid aortic valve. Mild to moderate aortic stenosis. Stage 1 diastolic dysfunction. Ordering Physician: Esvin Hamlin Referring Physician: Esvin Hamlin Performed By: Nancy Sinclair, AVI, RVT
== END | disposition home or self-care (01) ==
LOC: CVS 12:43
PROVIDERS: PCP Family Medicine; Referring Provider Family Medicine; Visit Provider Family Medicine
DX: R01.1 Cardiac murmur, unspecified (principal)
CPT/HCPCS: 93306

== ENCOUNTER → 2022-02-11 | Outpatient (CLI) | payer OTHER, SELFPAY ==
[2022-02-11 12:40] LABS: Erythrocyte Sedimentation Rate 29 mm/hr (0-30)
[2022-02-11 12:53] LABS: Hematocrit 35.5 % (37-47); Hemoglobin 11.4 g/dL (12.0-15.0); Mean Corp Hgb Conc 32.1 g/dL (32-36); Mean Corpuscular Hgb 26.5 pg (27.0-32.0); Mean Corpuscular Volume 82.6 fL (81-99); Mean Platelet Vol. 10.3 fl (6.2-12.0); Platelet Count 173 K/mm3 (150-450); RBC Distribution Width CV 14.1 % (11.6-14.6); RBC Distribution Width SD 41.4 fl (35.1-43.9); White Blood Count 3.6 K/mm3 (4.4-11.0)
[2022-02-11 13:01] LABS: Vitamin B12 346 pg/mL (211-911)
[2022-02-11 13:05] LABS: ALB/GLOB Ratio 0.8 RATIO (0.9-2.4); AST(SGOT) 20 U/L (15-37); Alanine Aminotransfer ALT/SGPT 18 U/L (13-56); Albumin, Serum 3.5 g/dL (3.2-5.0); Alkaline Phosphatase 87 U/L (45-117); Anion Gap 6 (5-15); BUN 14 mg/dL (7-18); BUN/Creat Ratio 15.3 RATIO (10-20); Calcium,Total 9.3 mg/dL (8.5-10.1); Chloride 106 mmol/L (98-107); Creatinine, Serum 0.92 mg/dL (0.55-1.02); EST Glomerular Filtration Rate 70 mL/min (>60); Est Glom Filt Rate - Afr Amer 84 mL/min (>60); Globulin 4.3 g/dL (2.2-4.2); Glucose 99 mg/dL (74-106); Potassium 4.3 mmol/L (3.5-5.1); Protein, Total 7.8 g/dL (6.4-8.2); Sodium Level 138 mmol/L (136-145)
[2022-02-13 16:08] LABS: ANTINUCLEAR ANTIBODIES DIRECT Positive (Negative); Anti-Centromere B Ab <0.2 AI (0.0-0.9); Anti-Chromatin 0.8 AI (0.0-0.9); Anti-Jo <0.2 AI (0.0-0.9); Anti-Scleroderma-70 AB <0.2 AI (0.0-0.9); SJOGREN'S Anti-SS-A test 0.2 AI (0.0-0.9); SJOGREN'S Anti-SS-B test < 0.2 AI (0.0-0.9); Smith Ab 0.6 AI (0.0-0.9)
[2022-02-13 19:38] LABS: Anti-dsDNA Ab 8 IU/mL (0-9)
[2022-02-20 11:08] LABS: Complement C3 113 mg/dL (82-167); KEPPRA (LEVETIRACETAM) 23.5 ug/mL (10.0-40.0); Protein C Antigen 107 % (60-150); Protein S, Free 100 % (61-136); Vitamin B1, Thiamine 103.6 nmol/L (66.5-200.0)
[2022-02-20 18:29] LABS: Anti-Cardiolipin Ab, IgA, Qn < 9 APL U/mL (0-11); Anti-Cardiolipin Ab, IgG, Qn < 9 GPL U/mL (0-14); Anti-Cardiolipin Ab, IgM, Qn 33 MPL U/mL (0-12); Anti-Thrombin 3 AG, Immunol 110 % (72-124); Antithrombin 3 Function 118 % (75-135); Complement CH50 55 U/mL (>41); Protein C, Functional 122 % (73-180); Protein S, Funtional 67 % (63-140); Protein S, Total 131 % (60-150)
== END | disposition home or self-care (01) ==
LOC: MTLAB 09:19
PROVIDERS: Psychiatry & Neurology Neurology; PCP Family Medicine; Referring Provider Internal Medicine Rheumatology; Visit Provider Internal Medicine Rheumatology
DX: M32.9 Systemic lupus erythematosus, unspecified (principal)
CPT/HCPCS: 36415; 80053; 80177; 81240; 81241; 82140; 82607; 84425; 85027; 85300; 85301; 85302; 85303; 85305; 85306; 85652; 86038; 86147; 86160; 86162; 86225; 86235

== ENCOUNTER → 2022-02-20 | Outpatient (CLI) | payer OTHER, SELFPAY ==
[2022-02-20 13:02] LABS: Mucous, Urine 0 SEEN /hpf (<or=2+); Red Blood Cells-Urine 0 SEEN /hpf (0-5)
[2022-02-20 15:40] LABS: Color, Urine Yellow (Yellow); Glucose, Dipstick Normal (Normal); Ketone-Dipstick Negative (Negative); Leukocyte Esterase-Dipstick 25 /ul (Negative); Nitrite-Dipstick Negative (Negative); Occult Blood-Urine Negative /ul (Negative); Protein-Dipstick 15 mg/dl (Negative); Specific Gravity, Urine 1.025 (1.002-1.030); Urine Bilirubin Dipstick Negative (Negative); Urine Clarity Clear (Clear); Urine Urobilinogen Normal (Normal)
[2022-02-20 15:47] LABS: Bacteria RARE /hpf (None Seen); Squamous Epithelial Cells - UA 0-5 SEEN /hpf (5-10); White Blood Cells 0-5 SEEN /hpf (0-5)
[2022-02-20 18:03] LABS: Protein:Creat Ratio 241 mg/g CRE (0-200)
[2022-02-24 11:25] LABS: Complement C3 103 mg/dL (82-167)
== END | disposition home or self-care (01) ==
LOC: MTLAB 12:56
PROVIDERS: PCP Family Medicine; Referring Provider Internal Medicine Rheumatology; Visit Provider Internal Medicine Rheumatology
DX: M32.9 Systemic lupus erythematosus, unspecified (principal); Z79.899 Other long term (current) drug therapy
CPT/HCPCS: 36415; 81001; 82570; 84156; 86160; 86225

== ENCOUNTER → 2022-03-11 | Outpatient (CLI) | payer OTHER, SELFPAY ==
--- NOTE | 2022-03-11 11:47 | RAD_ITS ---
STUDY: X-RAY - RIGHT KNEE REASON FOR EXAM: Female, 47 years old. Pain. TECHNIQUE: 3 view(s) of the knee. COMPARISON: None. FINDINGS: Normal visualized distal femur. Normal visualized proximal tibia and fibula. Normal proximal tibiofibular articulation. Mild thinning of the medial femorotibial compartment. Normal lateral femorotibial compartment. Normal patellofemoral articulation. The soft tissue structures are unremarkable. RAD/Knee 3 Views IMPRESSION: Mild arthrosis of the medial femorotibial compartment. No acute abnormality, chondrocalcinosis or erosive changes. Electronically Signed: Filiberto Parson, at 12:16 EST ,
--- NOTE | 2022-03-11 11:47 | RAD_ITS ---
STUDY: X-RAY - LEFT KNEE REASON FOR EXAM: Female, 47 years old. Pain. TECHNIQUE: 3 view(s) of the knee. COMPARISON: None. FINDINGS: Normal visualized distal femur. Normal visualized proximal tibia and fibula. Normal proximal tibiofibular articulation. Normal medial femorotibial compartment. Normal lateral femorotibial compartment. Normal patellofemoral articulation. The soft tissue structures are unremarkable. RAD/Knee 3 Views IMPRESSION: No abnormality of the left knee. Electronically Signed: Filiberto Parson, at 12:16 EST ,
== END | disposition home or self-care (01) ==
LOC: MTRAD 11:46
PROVIDERS: PCP Family Medicine; Referring Provider Family Medicine; Visit Provider Family Medicine
DX: M25.561 Pain in right knee (principal); M25.562 Pain in left knee
CPT/HCPCS: 73562

== ENCOUNTER → 2022-03-26 | Outpatient (CLI) | payer OTHER, SELFPAY ==
--- NOTE | 2022-03-26 10:17 | RAD_ITS ---
Right elbow indication: Posterior lumbar TECHNIQUE: 3 views FINDINGS: Bony structures demonstrate normal mineralization without evidence for acute fracture or location. No lytic or sclerotic bony lesions are seen. There is mild swelling of the soft tissues posterior to the olecranon possibly representing small posterior olecranon bursal effusion. MRI would be helpful to exclude possibility of nodule if clinically indicated RAD/Elbow min 3 Views IMPRESSION: No acute fracture or dislocation. Question small posterior olecranon bursal effusion. MRI would be helpful to exclude nodule if indicated Electronically Signed: Shaun Dominique MD at 17:50 EST ,
== END | disposition home or self-care (01) ==
LOC: MTRAD 10:16
PROVIDERS: PCP Family Medicine; Referring Provider Internal Medicine Rheumatology; Visit Provider Internal Medicine Rheumatology
DX: M79.89 Other specified soft tissue disorders (principal); M25.521 Pain in right elbow; M21.921 Unspecified acquired deformity of right upper arm
CPT/HCPCS: 73080

== ENCOUNTER → 2022-04-08 | Outpatient (CLI) | payer OTHER, SELFPAY ==
[2022-04-10 20:30] LABS: Anti-Cardiolipin Ab, IgA, Qn < 9 APL U/mL (0-11); Anti-Cardiolipin Ab, IgG, Qn < 9 GPL U/mL (0-14); Anti-Cardiolipin Ab, IgM, Qn 32 MPL U/mL (0-12)
== END | disposition home or self-care (01) ==
PROVIDERS: PCP Family Medicine; Referring Provider Psychiatry & Neurology Neurology; Visit Provider Psychiatry & Neurology Neurology
DX: Z86.79 Personal history of other diseases of the circulatory system (principal)
CPT/HCPCS: 36415; 86147

== ENCOUNTER 2022-05-06 14:30 | Outpatient (RCR) | payer OTHER, SELFPAY ==
--- NOTE | 2022-03-27 15:19 | HP.PTEVAL ---
Patient's Visit Information JAKY WORTHY is a 47 year old F referred to Physical Therapy by Dr. Esvin Hamlin MD with a diagnosis of B knee pain. Date of Evaluation: 03/27/22 Physical Therapist: Moisés Blanco DPT, OCS, CSCS - Visit Plan Frequency: 3x /Week Duration: 4-6 Weeks Plan: 3x/week for 3-6 weeks for... start aquatic pool ex for quad stretching, knee and hip strength and overall body ex to I home or pool program based on patient desire. recheck in 3 weeks to consider exit strategy. - Subjective Had hysterectomy in December that messed body up with recovery and was not moving alot. Body got stiff and hard to move. Has lupus. Had some knee pain at end of the year. x ray of knees that showed some degen in L knee and not in others. They crack and pop. Knees have hurt for a couple months intermittently. Currently on prednisone from Lupus doctor and walking faster today. Will be on for 6 days. L knee still hurts a little and R alot. Kneeled to clean this morning and hurt more. pain is 5-8/10 worse getting up in middle of night to bathroom and it really hurts. Loosens up as day goes on and am is worse than pm. Sleep is not interrupted. 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 Basic ADLs are Ok but painful. No hobbies. Enjoys walking but not in winter. Avoids stairs.Avoids exercise on her own. Would like to walk and squat, ride bike. - Pain knees Pain Intensity (Out of 10): 0 Pain Intensity Range: 0, 8 Comment: L knee 5 adn R knee to 8 - Objective Walks slow but steady and no antlagia today. Trasnfers I with UE. Steps are reciprocal with some pain descending> ascneding L knee. AROM hips, knees and ankles WFL and symmetrical and tightness present quad and psoas B. AROM UE WFL. Has some popping L knee and L shoulder with movement but do not hurt in NWB. Back AROM WFL with some pain with lumbar extension. reflexes 2/3 patella and achilles. Sensation LE WNL to gross light touch. - ant drawer B, - scour, - bounce home, - patellar grind. all B. strength at hips is 3+ flexion, abd and 3 extension, no pain. knee flexion and extension 3+ no pain. ankles 4- no pain. core 3/5 abs and extension. - Balance/Special Test Scores Lower Extremity Functional Score: 32 - Goals Goal 1:: Patient feel pain in knees is 1/10 at worst and 75% improved. Goal Time Frame: 4-6 Weeks Goal 2:: Pt I in managemnt of knee pain with ex(pool vs home) Goal Time Frame: 4-6 Weeks Goal 3:: LEFS score 50 Goal Time Frame: 4-6 Weeks Goal 4:: stairs reciprocally without pain or popping Goal Time Frame: 4-6 Weeks - Rehabilitation Potential Physical Therapy Diagnosis: B knee pain, sedentarism. Rehabilitation Potential: Good - Anticipated Interventions Patient/Client Instruction: Educate patient on: Condition, Plan of Care For the Purpose of:: To decrease pain, To improve muscle performance and motor function, To increase tolerance to activity/condition/position, To improve ability of physical actions for home/community/work/leisure, To improve gait and locomotor functions Therapeutic Exercise to Include: Strength training, Flexibilty training, In an aquatic setting, Passive ROM, Active ROM For the Purpose of:: To decrease pain, To improve muscle performance and motor function, To increase tolerance to activity/condition/position, To improve ability of physical actions for home/community/work/leisure Thank you for the opportunity to evaluate your patient. For Medicare and Medicare HMO plans, please review the plan of care and approve it. It will need to be FAXED BACK to us at [phone] for Medicare purposes. For Medicare only, by signing this I certify the plan of care. Please let me know if there are questions or concerns regarding this plan of care. Physician Signature: Date:
--- NOTE | 2022-04-20 15:28 | HP.PTREVAL ---
Dr. Esvin Hamlin MD, It has been my pleasure to treat JAKY WORTHY over the last 11 visits for B knee pain. Please see the progress note below for an update on the physical therapy plan of care! Subjective: Feels a lot stronger but knees still hurt and don't bend well. Knee pain 2/10 on daily basis. Walking and steps are worse, sitting long time. Steps still challenging and painful. Knees are about the same as a month ago. Stretching at home for legs daily, doing AROM for UE at home. No f/u yet with [facility]. Objective/Function: 0-120 AROM B knees, improving flexibility Full aROM in knees. Steps still appear weak descending and are painful, still 3/10 pain walking R and L knee. Overall not much improvement to knee pain but excercise will be an important part of managing this for her in the future and we need to get I in water which she is willing to continue on her own. Plan Plan: 3 visits with Marisol in water to work to an I program for CV, posture, core, LE strength and stretching with pictures and list and instriuction on technique and progression and then patient to join [employer] for I performance, no f/u with therapist needed once I. Balance/Gait/Functional tests - Balance/Special Test Scores Lower Extremity Functional Score: 37 Goals Goal 1:: Patient feel pain in knees is 1/10 at worst and 75% improved. Goal Time Frame: 4-6 Weeks Goal Progress: Not Progressing Goal 2:: Pt I in managemnt of knee pain with ex(pool vs home) Goal Time Frame: 4-6 Weeks Goal 3:: LEFS score 50 Goal Time Frame: 4-6 Weeks Goal Progress: Not Progressing Goal 4:: stairs reciprocally without pain or popping Goal Time Frame: 4-6 Weeks Goal Progress: Not Progressing Anticipated Interventions Patient/Client Instruction: Educate patient on: Condition, Plan of Care For the Purpose of:: To decrease pain, To improve muscle performance and motor function, To increase tolerance to activity/condition/position, To improve ability of physical actions for home/community/work/leisure, To improve gait and locomotor functions Therapeutic Exercise to Include: Strength training, Flexibilty training, In an aquatic setting, Passive ROM, Active ROM For the Purpose of:: To decrease pain, To improve muscle performance and motor function, To increase tolerance to activity/condition/position, To improve ability of physical actions for home/community/work/leisure Please do not hesitate to contact me at [phone] by phone or if you have questions or concerns regarding this new plan of care! Sincerely, Moisés Blanco, DPT, OCS, CSCS
--- NOTE | 2022-04-21 07:34 | HP.OTEVAL ---
Patient's Visit Information JAKY WORTHY is a 47 year old F, referred to Occupational Therapy by Dr. Esvin Hamlin MD, with a diagnosis of right olecranon bursitis. Date of Evaluation: 04/20/22 Occupational Therapist: Magaly Harding, OTR/Job, CHT - Subjective This 47 year old female was seen for OT eval with dx of right olecranon bursitis. pt states she has struggled with pain and puffiness in her right elbow for possibly 6 months. pt has had x-ray no evidence of fx. pt is right handed. 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 pt states she did have bilateral cortisone shot about 3 weeks ago for CTS ( this is 2nd cortisone injection). pt dx with Lupus and is mtg by RA liu. pt states she has not had a recent change in her medication for lupus. pt states right elbow is painful if she hits her elbow on something. pt states both elbow have limited ROM but because her range of motion fluctuates she did not she the Dr. her left elbow or left elbow was not x/rayed either. - Pain right elbow 0 Pain Intensity Range: 1, 3 - ROM Elbow: right -35/140 left -60/140 Forearm: right/left WNL ROM Comments: pt demo with limited bilateral elbow ROM- pt states her limited ROM comes and goes but can not conclude if it changes with weather, diet or work tasks. - Strength Nursing Scheduler: right 20# left 18# Lateral Pinch: right 4# left 4# Tripod Pinch: right 2# left 2# Strength Comments: pt demo with weakness of bilateral director instructional material strength - Sensation Sensation Comments: pt states at times tingling/numbness due to CTS. - Goals Goal:: pt will demo increase in director instructional material strength by 15# or greater by d/c to increase pt ind. with ADLs and IADLS. pt will demo the ability to lift 35# to simulate IADLS by d,c Goal:: pt will demo elbow ext at -10* or less indicating gains in ROM of elbow ext. to increase ind. with ADLs and IADLS by b/c Goal:: pt will report no pain greater than 1/10 with use of elbow pad with daily tasks by d.c - Rehabilitation General Assessment: pt demo with limited ROM of elbow extension and pain of elbow. pt would benefit from skilled OT servieces 2x week for 3- 4 weeks to ed. on dx, gain elbow ROM and decrease pain. Pt demo understanding and agrees to POC. Rehabilitation Potential: Good - Anticipated Interventions A/AAROM/PROM, Strengthening, Joint Protection/Energy Conservation, Ergonomic Education, Education re assistive Equipment, Education re Diagnosis, Home Program - Visit Plan Frequency: 2x /Week Duration: 2-4 Weeks General Plan: pt to get elbow pad she can use to protect right elbow. initiate ROM to gain increase elbow ext. strengthen pt as tolerated TEXT: Thank you for the opportunity to evaluate your patient. For Medicare and Medicare HMO plans, please review the plan of care and approve it. It will need to be FAXED BACK to us at [phone] for Medicare purposes. Please let me know if there are questions or concerns regarding this plan of care. Physician Signature: Date:
--- NOTE | 2022-04-21 07:35 | HP.OTEVAL ---
Patient's Visit Information JAKY WORTHY is a 47 year old F, referred to Occupational Therapy by Dr. Esvin Hamlin MD, with a diagnosis of right olecranon bursitis. Date of Evaluation: 04/20/22 Occupational Therapist: Magaly Harding, OTR/Job, CHT - Subjective This 47 year old female was seen for OT eval with dx of right olecranon bursitis. pt states she has struggled with pain and puffiness in her right elbow for possibly 6 months. pt has had x-ray no evidence of fx. pt is right handed. 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 pt states she did have bilateral cortisone shot about 3 weeks ago for CTS ( this is 2nd cortisone injection). pt dx with Lupus and is mtg by RA liu. pt states she has not had a recent change in her medication for lupus. pt states right elbow is painful if she hits her elbow on something. pt states both elbow have limited ROM but because her range of motion fluctuates she did not she the Dr. her left elbow or left elbow was not x/rayed either. - Pain right elbow 0 Pain Intensity Range: 1, 3 - ROM Elbow: right -35/140 left -60/140 Forearm: right/left WNL ROM Comments: pt demo with limited bilateral elbow ROM- pt states her limited ROM comes and goes but can not conclude if it changes with weather, diet or work tasks. - Strength Advertising Account Executive: right 20# left 18# Lateral Pinch: right 4# left 4# Tripod Pinch: right 2# left 2# Strength Comments: pt demo with weakness of bilateral driver's license examiner strength - Sensation Sensation Comments: pt states at times tingling/numbness due to CTS. - Quick DASH-Disab of Arm,Shoulder& Hand Quick DASH Score: 41.6650 - Goals Goal:: pt will demo increase in driver's license examiner strength by 15# or greater by d/c to increase pt ind. with ADLs and IADLS. pt will demo the ability to lift 35# to simulate IADLS by d,c Goal:: pt will demo elbow ext at -10* or less indicating gains in ROM of elbow ext. to increase ind. with ADLs and IADLS by b/c Goal:: pt will report no pain greater than 1/10 with use of elbow pad with daily tasks by sonyac - Rehabilitation General Assessment: pt demo with limited ROM of elbow extension and pain of elbow. pt would benefit from skilled OT servieces 2x week for 3- 4 weeks to ed. on dx, gain elbow ROM and decrease pain. Pt demo understanding and agrees to POC. Rehabilitation Potential: Good - Anticipated Interventions A/AAROM/PROM, Strengthening, Joint Protection/Energy Conservation, Ergonomic Education, Education re assistive Equipment, Education re Diagnosis, Home Program - Visit Plan Frequency: 2x /Week Duration: 2-4 Weeks General Plan: pt to get elbow pad she can use to protect right elbow. initiate ROM to gain increase elbow ext. strengthen pt as tolerated TEXT: Thank you for the opportunity to evaluate your patient. For Medicare and Medicare HMO plans, please review the plan of care and approve it. It will need to be FAXED BACK to us at [phone] for Medicare purposes. Please let me know if there are questions or concerns regarding this plan of care. Physician Signature: Date:
--- NOTE | 2022-05-07 13:09 | HP.PTDCSUM ---
It has been my pleasure to treat JAKY WORTHY referred by Dr. Esvin Hamlin MD, with the diagnosis of B knee pain for a total of 14 visit(s). Discharge Date: 05/07/22 Please see the following information for a summary of their discharge status. Subjective: The pain is still there, but I feel so much stronger. knees Pain Intensity (Out of 10): 3 % Improvement: 50 Objective/Function: Giving her own copy of I pool program today and using during most of Rx today to encourage confidence. Challenged with the stance LE's ability to manage sturdiness against viscosity of water with cues needed for glute/hip extensor engagement. Given kitchen sink as HEP for exit strategy. Goal 1:: Patient feel pain in knees is 1/10 at worst and 75% improved. Goal Progress: Not Progressing Goal 2:: Pt I in managemnt of knee pain with ex(pool vs home) Goal Progress: Goal Met Goal 3:: LEFS score 50 Goal Progress: Not Progressing Goal 4:: stairs reciprocally without pain or popping Goal Progress: Not Progressing Plan: D/c today per last POC as patient will continue via [facility] and community pool and contact doctor if concerns. Work on CV, posture, core, LE strength and stretching with pictures and list and instruction on technique and progression and then patient to join [employer] for I performance, no f/u with therapist needed once I. Discharge Comments: Pt to continue on her own in [employer] and via HEP and contact doctor if concerns. If there are questions or concerns regarding this patient's physical therapy, please feel free to call me at [phone]. Thank you for the referral of this patient. Sincerely, Moisés Blanco, DPT, OCS, CSCS Balance/Gait/Functional tests - Balance/Special Test Scores Lower Extremity Functional Score: 50
== END 2022-05-06 19:00 | disposition home or self-care (01) ==
LOC: PT 14:30
PROVIDERS: PCP Family Medicine; Referring Provider Family Medicine; Visit Provider Family Medicine
DX: M70.21 Olecranon bursitis, right elbow (principal); M25.561 Pain in right knee; M25.562 Pain in left knee
CPT/HCPCS: 97110; 97113; 97162; 97166; 97530

== ENCOUNTER → 2022-06-11 | Outpatient (CLI) | payer OTHER, SELFPAY | END | disposition home or self-care (01) | LOC: MTLAB 15:31 | PROVIDERS: PCP Family Medicine; Referring Provider Family Medicine; Visit Provider Family Medicine | DX: Z86.73 Personal history of transient ischemic attack (TIA), and cerebral infarction without residual deficits (principal) | CPT/HCPCS: 36415; 80061 ==

== ENCOUNTER → 2022-06-15 | Outpatient (CLI) | payer OTHER, SELFPAY ==
[2022-06-15 18:37] LABS: Cholesterol 114 mg/dL (200); High Density Lipoprotein 40 mg/dL; Triglycerides 121 mg/dL; Very Low Density Lipoprotein 24 mg/dL (5-40)
== END | disposition home or self-care (01) ==
LOC: MFPLAB 15:19
PROVIDERS: PCP Family Medicine; Visit Provider Family Medicine
DX: Z86.73 Personal history of transient ischemic attack (TIA), and cerebral infarction without residual deficits (principal)
CPT/HCPCS: 80061

== ENCOUNTER → 2022-06-22 | Outpatient (CLI) | payer OTHER, SELFPAY ==
[2022-06-25 14:20] LABS: Anti-Cardiolipin Ab, IgA, Qn < 9 APL U/mL (0-11); Anti-Cardiolipin Ab, IgG, Qn < 9 GPL U/mL (0-14); Anti-Cardiolipin Ab, IgM, Qn 17 MPL U/mL (0-12)
== END | disposition home or self-care (01) ==
LOC: MTLAB 14:38
PROVIDERS: PCP Family Medicine; Referring Provider Psychiatry & Neurology Neurology; Visit Provider Psychiatry & Neurology Neurology
DX: Z86.79 Personal history of other diseases of the circulatory system (principal)
CPT/HCPCS: 36415; 86147

== ENCOUNTER 2022-06-26 10:51 | Outpatient (RCR) | payer OTHER, SELFPAY ==
[2022-06-26 11:04] LABS: Bacteria 0 SEEN /hpf (None Seen); Mucous, Urine 0 SEEN /hpf (<or=2+); Red Blood Cells-Urine 0 SEEN /hpf (0-5); Squamous Epithelial Cells - UA 0 SEEN /hpf (5-10); White Blood Cells 0 SEEN /hpf (0-5)
[2022-06-26 12:11] LABS: Absolute Neutrophil Count 4.4 X10^3/uL (2.0-7.7); Basophil# 0.02 X10^3/uL; Basophil% 0.4 % (0-1); Eosinophil# 0.04 X10^3/uL; Eosinophils% 0.7 % (0-5); Hematocrit 35.7 % (37-47); Hemoglobin 11.8 g/dL (12.0-15.0); Lymphocyte % 12.8 % (19-41); Mean Corp Hgb Conc 33.1 g/dL (32-36); Mean Corpuscular Volume 84.8 fL (81-99); Mean Platelet Vol. 9.6 fl (6.2-12.0); Monocyte% 5.5 % (0-10); NRBC Flagged by Analyzer 0 % (0-5); Neutrophil # 4.38 X10^3/uL (2.7-7.7); Neutrophil % 79.9 % (47-70); Platelet Count 157 K/mm3 (150-450); RBC Distribution Width CV 13.6 % (11.6-14.6); Red Blood Count 4.21 M/mm3 (4.2-5.4); White Blood Count 5.5 K/mm3 (4.4-11.0)
[2022-06-26 13:24] LABS: AST(SGOT) 23 U/L (15-37); Alanine Aminotransfer ALT/SGPT 22 U/L (13-56); Albumin, Serum 3.4 g/dL (3.2-5.0); BUN 16 mg/dL (7-18); Color, Urine Yellow (Yellow); Creatinine, Serum 0.93 mg/dL (0.55-1.02); EST Glomerular Filtration Rate 68 mL/min (>60); Est Glom Filt Rate - Afr Amer 83 mL/min (>60); Glucose, Dipstick Normal (Normal); Ketone-Dipstick Negative (Negative); Leukocyte Esterase-Dipstick Negative /ul (Negative); Nitrite-Dipstick Negative (Negative); Occult Blood-Urine Negative /ul (Negative); Protein-Dipstick Negative (Negative); Specific Gravity, Urine 1.015 (1.002-1.030); Urine Bilirubin Dipstick Negative (Negative); Urine Clarity Clear (Clear); Urine Urobilinogen Normal (Normal)
[2022-06-26 13:33] LABS: Protein, Urine (Random) 12.2 mg/dL (<11.9); Protein:Creat Ratio 217 mg/g CRE (0-200)
[2022-06-27 14:16] LABS: Complement C3 98 mg/dL (82-167)
[2022-06-29 15:39] LABS: Anti-dsDNA Ab 5 IU/mL (0-9)
== END 2022-07-19 00:24 | disposition home or self-care (01) ==
LOC: LAB 10:51
PROVIDERS: PCP Family Medicine; Referring Provider Internal Medicine Rheumatology; Visit Provider Internal Medicine Rheumatology
DX: M32.9 Systemic lupus erythematosus, unspecified (principal); Z79.899 Other long term (current) drug therapy; Z92.25 Personal history of immunosuppression therapy
CPT/HCPCS: 36415; 81001; 82040; 82565; 82570; 84156; 84450; 84460; 84520; 85025; 86140; 86160; 86225

== ENCOUNTER 2022-10-19 15:27 | Outpatient (RCR) | payer OTHER, SELFPAY ==
[2022-10-19 17:49] LABS: Absolute Lymphocyte Count 0.72 X10^3/uL (0.83-4.51); Absolute Neutrophil Count 3.6 X10^3/uL (2.0-7.7); Basophil# 0.02 X10^3/uL; Basophil% 0.4 % (0-1); Eosinophil# 0.07 X10^3/uL; Eosinophils% 1.5 % (0-5); Hematocrit 36.7 % (37-47); Hemoglobin 11.9 g/dL (12.0-15.0); Lymphocyte # 0.72 X10^3/ul (0.83-4.51); Lymphocyte % 15.4 % (19-41); Mean Corp Hgb Conc 32.4 g/dL (32-36); Mean Corpuscular Hgb 27.4 pg (27.0-32.0); Mean Corpuscular Volume 84.6 fL (81-99); Mean Platelet Vol. 9.9 fl (6.2-12.0); Monocyte# 0.25 X10^3/uL; Monocyte% 5.3 % (0-10); NRBC Flagged by Analyzer 0 % (0-5); Neutrophil # 3.55 X10^3/uL (2.7-7.7); Neutrophil % 75.9 % (47-70); Platelet Count 138 K/mm3 (150-450); RBC Distribution Width CV 13.1 % (11.6-14.6); RBC Distribution Width SD 40.5 fl (35.1-43.9); Red Blood Count 4.34 M/mm3 (4.2-5.4); White Blood Count 4.7 K/mm3 (4.4-11.0)
[2022-10-19 18:02] LABS: Protein, Urine (Random) 9.4 mg/dL (<11.9); Protein:Creat Ratio 205 mg/g CRE (0-200)
[2022-10-19 18:07] LABS: Color, Urine Yellow (Yellow); Glucose, Dipstick Normal (Normal); Ketone-Dipstick Negative (Negative); Leukocyte Esterase-Dipstick 25 /ul (Negative); Nitrite-Dipstick Negative (Negative); Occult Blood-Urine Negative /ul (Negative); Protein-Dipstick Negative (Negative); Specific Gravity, Urine 1.015 (1.002-1.030); Urine Bilirubin Dipstick Negative (Negative); Urine Clarity Clear (Clear); Urine Urobilinogen Normal (Normal)
[2022-10-19 18:28] LABS: AST(SGOT) 20 U/L (15-37); Alanine Aminotransfer ALT/SGPT 22 U/L (13-56); Albumin, Serum 3.7 g/dL (3.2-5.0); BUN 20 mg/dL (7-18); CRP 8.84 mg/L (0.0-3.0); EST Glomerular Filtration Rate 56 mL/min (>60); Est Glom Filt Rate - Afr Amer 68 mL/min (>60)
[2022-10-21 04:07] LABS: Complement C3 112 mg/dL (82-167)
[2022-10-21 13:08] LABS: Anti-dsDNA Ab 12 IU/mL (0-9)
== END 2022-10-19 18:00 | disposition home or self-care (01) ==
LOC: MTLAB 15:27
PROVIDERS: PCP Family Medicine; Referring Provider Internal Medicine Rheumatology; Visit Provider Internal Medicine Rheumatology
DX: M32.9 Systemic lupus erythematosus, unspecified (principal); Z79.899 Other long term (current) drug therapy; Z92.25 Personal history of immunosuppression therapy
CPT/HCPCS: 36415; 81002; 82040; 82565; 82570; 84156; 84450; 84460; 84520; 85025; 86140; 86160; 86225

== ENCOUNTER 2022-10-28 15:00 | Outpatient (RCR) | payer OTHER, SELFPAY ==
--- NOTE | 2022-10-01 10:07 | HP.PTEVAL_ITS ---
Patient's Visit Information Visit Information Visit Information: JAKY WORTHY is a 47 year old F referred to Physical Therapy by Dr. Anila Weiss DO with a diagnosis of R elbow Olecranon Bursitis. Date of Evaluation: 10/01/22 Physical Therapist: TARAN Fuentes Visit Plan Frequency: 1x/Week Duration: 6 Weeks Plan: 1X/ week (per pt request with HEP) for Elbow stretching into extension, Elbow strengthening (triceps), postural exercises with HEP HEP: towel elbow extension stretch (hold 10 sec), elbow flexion extension against the wall with palms to the wall, and in doorway elbow flex and ext into shoulder ext. Subjective Subjective: She can not straighten her arms all the way. This has been going on for [address] has the R arm down. Which arm is worse depends on the day and it changes as to which arm she can straighten more than the other. She has Lupus and [facility] said to go to [facility]. 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 She is not having any neck pain. She has no N&T. She has general arm weakness. She is R handed. It does not keep her up at night. Pain R elbow: Pain Intensity (Out of 10): 2 L elbow: Pain Intensity (Out of 10): 2 Objective Objective: R handed R information technology instructor strength 20# L information technology instructor strength 10# R elbow extension -25 degrees from full extension, 141 elbow flexion L elbow extension -20 degrees from full extension, 141 elbow flexion Bicep reflex B 2+/3 Palpation: no tenderness to palpation MMT: Elbow flexion 6.9 and L 7.5 Elbow ext 11.1 and L 10.8 Had pt do elbow flexion to extension with back side of hand against the wall and it seems to improve her ROM, worked on elbow extension on a towel to work on extension of the elbow. Balance/Special Test Scores Quick DASH Score: 22.7250 Goals Goal 1:: I HEP Goal Time Frame: 4-6 Weeks Goal 2:: Be able to straighten R elbow(ROM at eval: R elbow extension -25 degrees from full extension, 141 elbow flexion L elbow extension -20 degrees from full extension, 141 elbow flexion) Goal Time Frame: 4-6 Weeks Goal 3:: Increase R elbow strength (at time of the eval: Elbow flexion 6.9 and L 7.5 Elbow ext 11.1 and L 10.8) Goal Time Frame: 4-6 Weeks Rehabilitation Potential Rehabilitation Potential: Good Anticipated Interventions Patient/Client Instruction: Educate patient on: Condition and Plan of Care For the Purpose of:: To decrease pain, To increase ROM, To improve nutrient delivery to tissue, To improve muscle performance and motor function, To improve ability to perform ADL's, To increase tolerance to activity/condition/position, To improve performance and independence with ADL's, To decrease level of supervision to perform tasks, To improve ability of physical actions for home/community/work/leisure, To improve health of tissue, To decrease soft t issue restriction and To increase flexibility/ROM Therapeutic Exercise to Include: Strength training, Endurance training, Postural training, Flexibilty training, Passive ROM, Active ROM and Scapular Strength/Stabilization For the Purpose of:: To decrease pain, To increase ROM, To improve nutrient delivery to tissue, To improve muscle performance and motor function, To improve ability to perform ADL's, To increase tolerance to activity/condition/position, To improve performance and independence with ADL's, To improve health of tissue and To decrease soft tissue restriction Manual Therapy Techniques to Include: Passive ROM For the Purpose of:: To increase ROM and To decrease soft tissue restriction Text: Thank you for the opportunity to evaluate your patient. For Medicare and Medicare HMO plans, please review the plan of care and approve it. It will need to be FAXED BACK to us at [phone] for Medicare purposes. For Medicare only, by signing this I certify the plan of care. Please let me know if there are questions or concerns regarding this plan of care. Physician Signature: Date:
--- NOTE | 2022-10-28 15:56 | HP.PTREVAL ---
Re-Evaluation Intro: Dr. Anila Weiss, DO, It has been my pleasure to treat JAKY WORTHY over the last 5 visits for R elbow Olecranon Bursitis. Please see the progress note below for an update on the physical therapy plan of care! Subjective Subjective: She felt like PT was helping for awhile. Her arm feels good and then the l arm started to not be able to straighten again. She has been doing the exercises. She does have Lupus. No other joints hurt today but the L shoulder. She has a hard time with the wall push ups and can not get that motion down. She sees the rhumatologist in a few months. Not sure what happened to the L as to why she can not straighten it now. Objective Objective/Function: R elbow extension -4degrees from full extension, 141 elbow flexion L elbow extension -30 degrees from full extension, 130 elbow flexion) ++ after manual MMT) ext was -22 MMT: Elbow flexion 8.4 and L 8.8 Elbow ext 15.7 and L 10.8 Plan Plan Plan: Add MT to the bicep with elbow prop to see if helps with extension ROM. 1X/ week (per pt request with HEP) for Elbow stretching into extension, Elbow strengthening (triceps), postural exercises with HEP. Encouraged HEP compliancy and added elbow extension hang with good understanding Balance/Gait/Functional tests Balance/Special Test Scores Quick DASH Score: 22.7250 Goals Goals Goal 1:: I HEP Goal Time Frame: 4-6 Weeks Goal Progress: Goal Met Goal 2:: Be able to straighten R elbow(ROM at eval: R elbow extension -25 degrees from full extension, 141 elbow flexion L elbow extension -20 degrees from full extension, 141 elbow flexion) Goal Time Frame: 4-6 Weeks Goal Progress: Progressing Goal 3:: Increase R elbow strength (at time of the eval: Elbow flexion 6.9 and L 7.5 Elbow ext 11.1 and L 10.8) Goal Time Frame: 4-6 Weeks Goal Progress: Progressing Anticipated Interventions Anticipated Interventions Patient/Client Instruction: Educate patient on: Condition and Plan of Care For the Purpose of:: To decrease pain, To increase ROM, To improve nutrient delivery to tissue, To improve muscle performance and motor function, To improve ability to perform ADL's, To increase tolerance to activity/condition/position, To improve performance and independence with ADL's, To decrease level of supervision to perform tasks, To improve ability of physical actions for home/community/work/leisure, To improve health of tissue, To decrease soft tissue restriction and To increase flexibility/ROM Therapeutic Exercise to Include: Strength training, Endurance training, Postural training, Flexibilty training, Passive ROM, Active ROM and Scapular Strength/Stabilization For the Purpose of:: To decrease pain, To increase ROM, To improve nutrient delivery to tissue, To improve muscle performance and motor function, To improve ability to perform ADL's, To increase tolerance to activity/condition/position, To improve performance and independence with ADL's, To improve health of tissue and To decrease soft tissue restriction Manual Therapy Techniques to Include: Passive ROM For the Purpose of:: To increase ROM and To decrease soft tissue restriction Re-Evaluation Ending Re-evaluation ending: Please do not hesitate to contact me at [phone] by phone or if you have questions or concerns regarding this new plan of care! Sincerely, Steph Tiwari, MPT
--- NOTE | 2023-03-23 07:25 | HP.PTDCSUM ---
Discharge Summary D/C summary: It has been my pleasure to treat JAKY WORTHY referred by Dr. Anila Weiss DO, with the diagnosis of R elbow Olecranon Bursitis for a total of 5 visit(s). Discharge Date: 03/23/23 Please see the following information for a summary of their discharge status. Subjective Subjective: She felt like PT was helping for awhile. Her arm feels good and then the l arm started to not be able to straighten again. She has been doing the exercises. She does have Lupus. No other joints hurt today but the L shoulder. She has a hard time with the wall push ups and can not get that motion down. She sees the rhumatologist in a few months. Not sure what happened to the L as to why she can not straighten it now. Pain R elbow: Pain Intensity (Out of 10): 0 L elbow: Pain Intensity (Out of 10): 3 Overall Improvement % Improvement: 50 Objective Objective/Function: R elbow extension -4degrees from full extension, 141 elbow flexion L elbow extension -30 degrees from full extension, 130 elbow flexion) ++ after manual MMT) ext was -22 MMT: Elbow flexion 8.4 and L 8.8 Elbow ext 15.7 and L 10.8 Goals Goal 1:: I HEP Goal Progress: Goal Met Goal 2:: Be able to straighten R elbow(ROM at eval: R elbow extension -25 degrees from full extension, 141 elbow flexion L elbow extension -20 degrees from full extension, 141 elbow flexion) Goal Progress: Progressing Goal 3:: Increase R elbow strength (at time of the eval: Elbow flexion 6.9 and L 7.5 Elbow ext 11.1 and L 10.8) Goal Progress: Progressing Plan Plan: Add MT to the bicep with elbow prop to see if helps with extension ROM. 1X/ week (per pt request with HEP) for Elbow stretching into extension, Elbow strengthening (triceps), postural exercises with HEP. Encouraged HEP compliancy and added elbow extension hang with good understanding D/C Information Discharge Comments: DC PT d/c sentence: If there are questions or concerns regarding this patient's physical therapy, please feel free to call me at [phone]. Thank you for the referral of this patient. Sincerely, Steph Tiwari, MPT Balance/Gait/Functional tests Balance/Special Test Scores Quick DASH Score: 22.7250 Improvement % Improvement: 50
== END 2022-10-28 19:00 | disposition home or self-care (01) ==
LOC: PT 15:00
PROVIDERS: PCP Family Medicine; Referring Provider Internal Medicine Rheumatology; Visit Provider Internal Medicine Rheumatology
DX: M70.21 Olecranon bursitis, right elbow (principal)
CPT/HCPCS: 97110; 97140; 97161; 97530

== ENCOUNTER → 2022-11-04 | Outpatient (CLI) | payer OTHER, SELFPAY ==
--- NOTE | 2022-11-04 08:01 | BI_ITS ---
MAMMOGRAPHY - BILATERAL SCREENING REASON FOR EXAM: Female, 47 years old. Routine annual screening examination. PERTINENT HISTORY: Non-contributory. TECHNIQUE: Digital bilateral breast mary lou (3D mammographic acquisition) in the CC and MLO projections. 2-D mediolateral oblique (MLO) and craniocaudad (CC) views of both breasts were obtained. CAD: Full Field Digital Mammography with Computer Added Detection was performed. COMPARISON: Comparison is made with prior study dated September 15, 2021 and September 06, 2020. FINDINGS: Breast Composition: There are scattered areas of fibroglandular density. There are no dominant masses or suspicious calcifications. Stable 7 mm well-defined nodule with a central fatty hilum in the inferior central portion of the right breast. This most likely represents a small intramammary lymph node. No other significant abnormalities are identified. There has been no significant change since the prior study. BI/SCRN MAMM (CAD)W/MARY LOU BILAT IMPRESSION: Stable bilateral screening mammogram. Yearly follow-up mammogram recommended. (A) ASSESSMENT CATEGORY: BIRADS Category 2: Benign. A letter regarding these results will be sent to the patient by the facility within 30 days. Approximately 10% of breast cancers are not detected by mammography. A normal mammogram should not delay biopsy of a clinically suspicious abnormality. [id number] Electronically Signed: Chris Sandoval MD at 9:06 EDT ,
[2022-11-06 17:07] LABS: KEPPRA (LEVETIRACETAM) 24.9 ug/mL (10.0-40.0)
== END | disposition home or self-care (01) ==
PROVIDERS: Psychiatry & Neurology Neurology; PCP Family Medicine; Referring Provider Student in an Organized Health Care Education/Training Program; Visit Provider Student in an Organized Health Care Education/Training Program
DX: Z12.31 Encounter for screening mammogram for malignant neoplasm of breast (principal)
CPT/HCPCS: 36415; 77063; 77067; 80177; 82140

== ENCOUNTER 2022-11-16 15:00 | Outpatient (RCR) | payer OTHER, SELFPAY | END 2022-11-19 23:59 | LOC: NS 15:00 | PROVIDERS: PCP Family Medicine; Visit Provider Nurse Practitioner Family | DX: Z71.3 Dietary counseling and surveillance (principal); E66.9 Obesity, unspecified; Z68.36 Body mass index [BMI] 36.0-36.9, adult | CPT/HCPCS: 97802; 97803 ==

== ENCOUNTER 2022-12-09 15:02 | Outpatient (RCR) | payer OTHER, SELFPAY | END 2022-12-19 23:59 | LOC: NS 15:02 | PROVIDERS: PCP Family Medicine; Referring Provider Nurse Practitioner Family; Visit Provider Nurse Practitioner Family | DX: E66.9 Obesity, unspecified (principal); Z68.36 Body mass index [BMI] 36.0-36.9, adult | CPT/HCPCS: 97803 ==

== ENCOUNTER 2022-12-17 09:11 | Outpatient (RCR) | payer OTHER, SELFPAY ==
[2022-12-17 10:11] LABS: Absolute Lymphocyte Count 0.61 X10^3/uL (0.83-4.51); Absolute Neutrophil Count 4.2 X10^3/uL (2.0-7.7); Basophil# 0.02 X10^3/uL; Basophil% 0.4 % (0-1); Eosinophil# 0.09 X10^3/uL; Eosinophils% 1.7 % (0-5); Hematocrit 40.4 % (37-47); Hemoglobin 13.4 g/dL (12.0-15.0); Lymphocyte # 0.61 X10^3/ul (0.83-4.51); Lymphocyte % 11.5 % (19-41); Mean Corp Hgb Conc 33.2 g/dL (32-36); Mean Corpuscular Hgb 28.2 pg (27.0-32.0); Mean Corpuscular Volume 84.9 fL (81-99); Mean Platelet Vol. 9.6 fl (6.2-12.0); Monocyte# 0.32 X10^3/uL; NRBC Flagged by Analyzer 0 % (0-5); Neutrophil # 4.22 X10^3/uL (2.7-7.7); Neutrophil % 79.8 % (47-70); Platelet Count 109 K/mm3 (150-450); RBC Distribution Width CV 12.6 % (11.6-14.6); RBC Distribution Width SD 38.9 fl (35.1-43.9); Red Blood Count 4.76 M/mm3 (4.2-5.4); White Blood Count 5.3 K/mm3 (4.4-11.0)
[2022-12-17 10:13] LABS: Color, Urine Yellow (Yellow); Glucose, Dipstick Normal (Normal); Ketone-Dipstick Negative (Negative); Leukocyte Esterase-Dipstick Negative /ul (Negative); Nitrite-Dipstick Negative (Negative); Occult Blood-Urine Negative /ul (Negative); Protein-Dipstick Negative (Negative); Specific Gravity, Urine 1.015 (1.002-1.030); Urine Bilirubin Dipstick Negative (Negative); Urine Clarity Clear (Clear); Urine Urobilinogen Normal (Normal)
[2022-12-17 10:22] LABS: Protein, Urine (Random) 19.3 mg/dL (<11.9); Protein:Creat Ratio 238 mg/g CRE (0-200)
[2022-12-17 10:44] LABS: AST(SGOT) 21 U/L (15-37); Alanine Aminotransfer ALT/SGPT 21 U/L (13-56); Albumin, Serum 3.6 g/dL (3.2-5.0); BUN 13 mg/dL (7-18); EST Glomerular Filtration Rate 71 mL/min (>60); Est Glom Filt Rate - Afr Amer 86 mL/min (>60)
[2022-12-18 05:07] LABS: Complement C3 105 mg/dL (82-167)
[2022-12-18 12:09] LABS: Anti-dsDNA Ab 10 IU/mL (0-9)
== END 2022-12-17 18:00 | disposition home or self-care (01) ==
LOC: MTLAB 09:11
PROVIDERS: PCP Family Medicine; Referring Provider Internal Medicine Rheumatology; Visit Provider Internal Medicine Rheumatology
DX: M32.9 Systemic lupus erythematosus, unspecified (principal); Z79.899 Other long term (current) drug therapy; Z92.25 Personal history of immunosuppression therapy
CPT/HCPCS: 36415; 81002; 82040; 82565; 82570; 84156; 84450; 84460; 84520; 85025; 86140; 86160; 86225

== ENCOUNTER → 2023-01-08 | Outpatient (CLI) | payer OTHER, SELFPAY ==
[2023-01-08 18:16] LABS: Cholesterol 168 mg/dL (200); High Density Lipoprotein 37 mg/dL; Triglycerides 169 mg/dL; Very Low Density Lipoprotein 34 mg/dL (5-40)
== END | disposition home or self-care (01) ==
LOC: MFPLAB 14:26
PROVIDERS: PCP Family Medicine; Visit Provider Family Medicine
DX: Z86.73 Personal history of transient ischemic attack (TIA), and cerebral infarction without residual deficits (principal)
CPT/HCPCS: 36415; 80061

== ENCOUNTER 2023-02-10 10:23 | Outpatient (RCR) | payer OTHER, SELFPAY ==
[2023-02-10 12:39] LABS: Protein, Urine (Random) 32.1 mg/dL (<11.9); Protein:Creat Ratio 377 mg/g CRE (0-200)
[2023-02-10 12:48] LABS: Color, Urine Yellow (Yellow); Glucose, Dipstick Normal (Normal); Ketone-Dipstick Negative (Negative); Leukocyte Esterase-Dipstick Negative /ul (Negative); Nitrite-Dipstick Negative (Negative); Occult Blood-Urine Negative /ul (Negative); Protein-Dipstick 15 mg/dl (Negative); Specific Gravity, Urine 1.015 (1.002-1.030); Urine Bilirubin Dipstick Negative (Negative); Urine Clarity Clear (Clear); Urine Urobilinogen Normal (Normal)
[2023-02-10 12:50] LABS: Absolute Lymphocyte Count 0.61 X10^3/uL (0.83-4.51); Absolute Neutrophil Count 3.7 X10^3/uL (2.0-7.7); Basophil# 0.02 X10^3/uL; Basophil% 0.4 % (0-1); Eosinophil# 0.08 X10^3/uL; Eosinophils% 1.7 % (0-5); Hematocrit 38.8 % (37-47); Hemoglobin 12.8 g/dL (12.0-15.0); Lymphocyte # 0.61 X10^3/ul (0.83-4.51); Mean Corpuscular Hgb 27.4 pg (27.0-32.0); Mean Corpuscular Volume 82.9 fL (81-99); Mean Platelet Vol. 9.6 fl (6.2-12.0); Monocyte# 0.28 X10^3/uL; NRBC Flagged by Analyzer 0 % (0-5); Neutrophil # 3.65 X10^3/uL (2.7-7.7); Neutrophil % 77.8 % (47-70); Platelet Count 132 K/mm3 (150-450); RBC Distribution Width CV 12.6 % (11.6-14.6); Red Blood Count 4.68 M/mm3 (4.2-5.4); White Blood Count 4.7 K/mm3 (4.4-11.0)
[2023-02-10 13:02] LABS: AST(SGOT) 19 U/L (15-37); Alanine Aminotransfer ALT/SGPT 18 U/L (13-56); Albumin, Serum 3.6 g/dL (3.2-5.0); BUN 18 mg/dL (7-18); Creatinine, Serum 0.93 mg/dL (0.55-1.02); EST Glomerular Filtration Rate 68 mL/min (>60); Est Glom Filt Rate - Afr Amer 83 mL/min (>60)
[2023-02-11 05:07] LABS: Complement C3 104 mg/dL (82-167)
[2023-02-12 11:08] LABS: Anti-dsDNA Ab 7 IU/mL (0-9)
== END 2023-02-18 18:00 | disposition home or self-care (01) ==
LOC: MTLAB 10:23
PROVIDERS: PCP Family Medicine; Referring Provider Internal Medicine Rheumatology; Visit Provider Internal Medicine Rheumatology
DX: M32.9 Systemic lupus erythematosus, unspecified (principal); Z79.899 Other long term (current) drug therapy; Z92.25 Personal history of immunosuppression therapy
CPT/HCPCS: 36415; 81002; 82040; 82565; 82570; 84156; 84450; 84460; 84520; 85025; 86140; 86160; 86225

== ENCOUNTER → 2023-06-02 | Outpatient (CLI) | payer OTHER, SELFPAY ==
[2023-06-02 17:41] LABS: Absolute Lymphocyte Count 0.61 X10^3/uL (0.83-4.51); Absolute Neutrophil Count 5.9 X10^3/uL (2.0-7.7); Basophil# 0.03 X10^3/uL; Basophil% 0.4 % (0-1); Eosinophil# 0.09 X10^3/uL; Eosinophils% 1.3 % (0-5); Hematocrit 36.3 % (37-47); Lymphocyte # 0.61 X10^3/ul (0.83-4.51); Lymphocyte % 8.8 % (19-41); Mean Corp Hgb Conc 33.1 g/dL (32-36); Mean Corpuscular Hgb 27.8 pg (27.0-32.0); Mean Platelet Vol. 9.8 fl (6.2-12.0); Monocyte# 0.29 X10^3/uL; Monocyte% 4.2 % (0-10); NRBC Flagged by Analyzer 0 % (0-5); Neutrophil # 5.87 X10^3/uL (2.7-7.7); Neutrophil % 84.7 % (47-70); Platelet Count 202 K/mm3 (150-450); RBC Distribution Width CV 12.8 % (11.6-14.6); RBC Distribution Width SD 38.6 fl (35.1-43.9); Red Blood Count 4.32 M/mm3 (4.2-5.4); White Blood Count 6.9 K/mm3 (4.4-11.0)
[2023-06-02 17:57] LABS: Protein:Creat Ratio 289 mg/g CRE (0-200)
[2023-06-02 18:01] LABS: AST(SGOT) 20 U/L (15-37); Alanine Aminotransfer ALT/SGPT 18 U/L (13-56); Albumin, Serum 3.5 g/dL (3.2-5.0); BUN 21 mg/dL (7-18); EST Glomerular Filtration Rate 71 mL/min (>60); Est Glom Filt Rate - Afr Amer 85 mL/min (>60)
[2023-06-04 04:07] LABS: Complement C3 114 mg/dL (82-167)
[2023-06-04 12:09] LABS: Anti-dsDNA Ab 6 IU/mL (0-9)
== END | disposition home or self-care (01) ==
LOC: MFPLAB 15:39
PROVIDERS: Internal Medicine Rheumatology; PCP Family Medicine; Visit Provider Family Medicine
DX: Z87.39 Personal history of other diseases of the musculoskeletal system and connective tissue (principal); M32.9 Systemic lupus erythematosus, unspecified
CPT/HCPCS: 36415; 82040; 82565; 82570; 84156; 84450; 84460; 84520; 85025; 86140; 86160; 86225

== ENCOUNTER → 2023-06-30 | Outpatient (CLI) | payer OTHER, SELFPAY ==
[2023-06-30 12:09] LABS: Erythrocyte Sedimentation Rate 22 mm/hr (0-30)
[2023-07-02 13:08] LABS: KEPPRA (LEVETIRACETAM) 18.6 ug/mL (10.0-40.0)
== END | disposition home or self-care (01) ==
PROVIDERS: Psychiatry & Neurology Neurology; PCP Family Medicine; Referring Provider Internal Medicine Rheumatology; Visit Provider Internal Medicine Rheumatology
DX: M32.9 Systemic lupus erythematosus, unspecified (principal); Z79.899 Other long term (current) drug therapy
CPT/HCPCS: 36415; 80177; 82140; 85652; 86140

== ENCOUNTER → 2023-09-07 | Outpatient (CLI) | payer OTHER, SELFPAY ==
[2023-09-07 13:23] LABS: Mucous, Urine 0 SEEN /hpf (<or=2+); Red Blood Cells-Urine 0 SEEN /hpf (0-5); White Blood Cells 0 SEEN /hpf (0-5)
[2023-09-07 15:29] LABS: Absolute Neutrophil Count 3.7 X10^3/uL (2.0-7.7); Basophil# 0.02 X10^3/uL; Basophil% 0.4 % (0-1); Eosinophil# 0.09 X10^3/uL; Eosinophils% 1.8 % (0-5); Hemoglobin 11.8 g/dL (12.0-15.0); Mean Corp Hgb Conc 32.8 g/dL (32-36); Mean Corpuscular Hgb 27.4 pg (27.0-32.0); Mean Corpuscular Volume 83.5 fL (81-99); Mean Platelet Vol. 9.9 fl (6.2-12.0); Monocyte# 0.25 X10^3/uL; NRBC Flagged by Analyzer 0 % (0-5); Neutrophil # 3.71 X10^3/uL (2.7-7.7); Platelet Count 219 K/mm3 (150-450); RBC Distribution Width CV 12.8 % (11.6-14.6); RBC Distribution Width SD 38.9 fl (35.1-43.9); Red Blood Count 4.31 M/mm3 (4.2-5.4)
[2023-09-07 15:30] LABS: Color, Urine Yellow (Yellow); Glucose, Dipstick Normal (Normal); Ketone-Dipstick Negative (Negative); Leukocyte Esterase-Dipstick Negative /ul (Negative); Nitrite-Dipstick Negative (Negative); Occult Blood-Urine Negative /ul (Negative); Protein-Dipstick Negative (Negative); Urine Bilirubin Dipstick Negative (Negative); Urine Clarity Sl. Cloudy (Clear); Urine Urobilinogen Normal (Normal)
[2023-09-07 15:40] LABS: Bacteria 1+ /hpf (None Seen); Squamous Epithelial Cells - UA 0-5 SEEN /hpf (5-10)
[2023-09-07 16:04] LABS: Erythrocyte Sedimentation Rate 23 mm/hr (0-30)
[2023-09-07 16:15] LABS: AST(SGOT) 20 U/L (15-37); Alanine Aminotransfer ALT/SGPT 17 U/L (13-56); BUN 23 mg/dL (7-18); Creatinine, Serum 0.88 mg/dL (0.55-1.02); EST Glomerular Filtration Rate 73 mL/min (>60); Est Glom Filt Rate - Afr Amer 88 mL/min (>60)
[2023-09-09 04:07] LABS: Complement C3 104 mg/dL (82-167)
[2023-09-09 14:11] LABS: Anti-dsDNA Ab 9 IU/mL (0-9)
== END | disposition home or self-care (01) ==
LOC: MTLAB 13:20
PROVIDERS: PCP Family Medicine; Referring Provider Internal Medicine Rheumatology; Visit Provider Internal Medicine Rheumatology
DX: M32.9 Systemic lupus erythematosus, unspecified (principal); Z79.899 Other long term (current) drug therapy
CPT/HCPCS: 36415; 81001; 82565; 84450; 84460; 84520; 85025; 85652; 86140; 86160; 86225

== ENCOUNTER → 2023-09-15 | Outpatient (CLI) | payer OTHER, SELFPAY ==
--- NOTE | 2023-09-15 14:02 | ECHOD_ITS ---
Reason For Study: HTN Procedure This was a 2D Doppler, Color Flow transthoracic echocardiogram. Exam performed in department. Left Ventricle Normal LV size. Moderate concentric left ventricular hypertrophy. Left ventricular systolic function is normal. The left ventricular ejection fraction is 70 %. Stage 2 diastolic dysfunction. No regional wall motion abnormalities noted. Right Ventricle Normal RV size. Normal systolic function. Mitral Valve Normal mitral valve. Mild (1+) eccentric mitral valve insufficiency. Tricuspid Valve Normal tricuspid valve. Mild (1+) tricuspid valve insufficiency. Pulmonary artery systolic pressure is 38 mmHg. Aortic Valve Probable bicuspid valve with raphe. Peak aortic valve gradient 61 mmHg. Mean aortic valve gradient 40 mmHg. Moderate to severe aortic stenosis. Mild-Moderate (1-2+) aortic valve insufficiency. Pulmonic Valve Normal pulmonic valve. Great Vessels Mildly dilated aortic root. The pulmonary artery is normal size. Normal inferior vena cava. Pericardium/Pleural No pericardial effusion. MMode/2D Measurements & Calculations LVIDd: 4.3 cm IVSd: 1.4 cm LVOT diam: 2.2 cm LVIDs: 2.8 cm LVPWd: 1.4 cm LVOT area: 3.8 cm2 FS: 34.5 % Ao root diam: 4.1 cm LAV(MOD-bp): 55.9 ml LVAd ap4: 25.5 cm2 LAV(MOD-bp) Indexed: 31.7 ml/m2 LVLd ap4: 8.0 cm LAV(MOD-sp2): 56.8 ml EDV(MOD-sp4): 71.1 ml LAV(MOD-sp4): 46.5 ml EDV(sp4-el): 69.1 ml LVAs ap4: 12.6 cm2 LVLs ap4: 6.5 cm ESV(MOD-sp4): 22.9 ml ESV(sp4-el): 20.9 ml EF(MOD-sp4): 67.8 % EF(sp4-el): 69.7 % SV(MOD-sp4): 48.2 ml SV(sp4-el): 48.1 ml LA A4 area: 18.2 cm2 LA dimension(2D): 4.2 cm RA A4 area: 13.0 cm2 TAPSE: 2.1 cm Time Measurements MV dec time: 0.21 sec Doppler Measurements & Calculations MV E max jovani: 83.9 cm/sec Lat Peak E' Jovani: 7.7 cm/sec Med Peak E' Jovani: 7.5 cm/sec MV A max jovani: 66.2 cm/sec E/E' lat: 10.9 E/E' med: 11.2 MV E/A: 1.3 Ao V2 max: 408.6 cm/sec AI max jovani: 410.7 cm/sec MV dec slope: 390.0 cm/sec2 Ao max P.2 mmHg AI max P.7 mmHg Ao V2 mean: 304.2 cm/sec Ao mean P.0 mmHg AI dec slope: 270.1 cm/sec2 Ao V2 VTI: 90.8 cm AI P1/2t: 445.3 msec AV (velocity ratio): 0.30 BUSTER(I,D): 1.2 cm2 BUSTER(V,D): 1.0 cm2 LV V1 max: 111.7 cm/sec SV(LVOT): 104.8 ml PA V2 max: 71.1 cm/sec LV V1 max P.0 mmHg PA max PG (full): 0.64 mmHg LV V1 mean P.1 mmHg LV V1 mean: 83.1 cm/sec LV V1 VTI: 27.6 cm PI end-d jovani: 82.7 cm/sec TR max jovani: 285.3 cm/sec TR max P.6 mmHg ECHO/Echo Complete Interpretation Summary Normal LV size. Moderate concentric left ventricular hypertrophy. The left ventricular ejection fraction is 70 %. Stage 2 diastolic dysfunction. Probable bicuspid valve with raphe Mean aortic valve gradient 40 mmHg. Mild-Moderate (1-2+) aortic valve insufficiency. Mildly dilated aortic root. Moderate to severe aortic stenosis. Ordering Physician: Esvin Bernstein Referring Physician: Esvin Hamlin Performed By: Lynda Bernstein RVT, RDCS and Student
== END | disposition home or self-care (01) ==
LOC: CVS 14:01
PROVIDERS: PCP Family Medicine; Referring Provider Nurse Practitioner Family; Visit Provider Nurse Practitioner Family
DX: I35.0 Nonrheumatic aortic (valve) stenosis (principal); I10 Essential (primary) hypertension
CPT/HCPCS: 93306

== ENCOUNTER → 2023-09-17 | Outpatient (CLI) | payer OTHER, SELFPAY ==
--- NOTE | 2023-09-17 15:06 | RAD_ITS ---
STUDY: X-RAY CHEST REASON FOR EXAM: Female, 48 years old. Preoperative evaluation. TECHNIQUE: Frontal and lateral views of the chest. COMPARISON: May 09, 2021 FINDINGS: The lungs are clear and expanded. There is no demonstrated pleural abnormality. Normal size heart. Normal mediastinum and helena. Normal visualized pulmonary arteries. Normal visualized aortic arch and descending thoracic aorta. Normal visualized thoracic spine. Normal visualized ribs, clavicles, and shoulders. No abnormality of the visualized soft tissue structures of the upper abdomen. RAD/Chest PA and Lateral IMPRESSION: No interval change. Normal x-ray examination of the chest. Electronically Signed: Filiberto Parson MD at 15:38 EDT ,
== END | disposition home or self-care (01) ==
LOC: RAD 15:02
PROVIDERS: PCP Family Medicine; Referring Provider Nurse Practitioner Family; Visit Provider Nurse Practitioner Family
DX: Z01.818 Encounter for other preprocedural examination (principal); I10 Essential (primary) hypertension; I35.0 Nonrheumatic aortic (valve) stenosis
CPT/HCPCS: 71046

== ENCOUNTER 2023-09-27 09:16 | Day surgery (SDC) | payer OTHER, SELFPAY ==
[2023-09-17 15:14] LABS: Absolute Lymphocyte Count 0.87 X10^3/uL (0.83-4.51); Absolute Neutrophil Count 3.9 X10^3/uL (2.0-7.7); Basophil# 0.02 X10^3/uL; Basophil% 0.4 % (0-1); Eosinophil# 0.07 X10^3/uL; Eosinophils% 1.4 % (0-5); Hematocrit 35.5 % (37-47); Hemoglobin 11.6 g/dL (12.0-15.0); Lymphocyte # 0.87 X10^3/ul (0.83-4.51); Lymphocyte % 16.8 % (19-41); Mean Corp Hgb Conc 32.7 g/dL (32-36); Mean Corpuscular Hgb 27.2 pg (27.0-32.0); Mean Corpuscular Volume 83.3 fL (81-99); Mean Platelet Vol. 9.4 fl (6.2-12.0); Monocyte# 0.32 X10^3/uL; Monocyte% 6.2 % (0-10); NRBC Flagged by Analyzer 0 % (0-5); Neutrophil # 3.87 X10^3/uL (2.7-7.7); Neutrophil % 74.6 % (47-70); Platelet Count 178 K/mm3 (150-450); RBC Distribution Width CV 13.1 % (11.6-14.6); RBC Distribution Width SD 39.4 fl (35.1-43.9); Red Blood Count 4.26 M/mm3 (4.2-5.4); White Blood Count 5.2 K/mm3 (4.4-11.0)
[2023-09-17 15:43] LABS: Anion Gap 7 (5-15); BUN 20 mg/dL (7-18); BUN/Creat Ratio 21.6 RATIO (10-20); Calcium,Total 9.3 mg/dL (8.5-10.1); Chloride 104 mmol/L (98-107); Creatinine, Serum 0.92 mg/dL (0.55-1.02); EST Glomerular Filtration Rate 68 mL/min (>60); Est Glom Filt Rate - Afr Amer 83 mL/min (>60); Glucose 94 mg/dL (74-106); Potassium 4.4 mmol/L (3.5-5.1); Sodium Level 137 mmol/L (136-145)
--- NOTE | 2023-09-20 12:45 | PCM.HP.BLA ---
History and Physical Date of Admission: 09/27/23 48-year-old lady with a history of aortic valvular disease. There had been a question as to whether she had lupus endocarditis but she does not remember ever being told that and does not remember being diagnosed with that. She has been seeing the senior patient account representative for pancytopenia and continues to do that. Echocardiogram from January 2022 showed an ejection fraction of 60%, peak aortic valve gradient 34 mmHg, mean aortic valve gradient 21 mmHg, and aortic valve area 1.5/1.7 cm?, mild to moderate aortic valve stenosis. Mild aortic valve insufficiency noted. For ongoing valvular evaluation, she underwent a repeat echocardiogram on 09/15/2023 that showed an ejection fraction of 70%, moderate to severe aortic valve stenosis with a peak aortic valve gradient 61 mmHg, mean aortic valve gradient of 40 mmHg, and aortic valve area 1.2/1 cm?. Aortic root was noted be 4.1 cm. She denies chest, arm, jaw, or neck discomfort. She denies palpitations. She denies bilateral lower extremity edema. She denies claudication. She denies shortness of breath with activity, shortness of breath at rest, orthopnea, or PND. She denies chronic cough. She denies significant, sudden weight gain. She denies lightheadedness, dizziness, near-syncope, or syncope. She denies blood in urine, blood in stool, or epistaxis. He denies fever with chills. She denies myalgia. She denies fatigue. Her exercise level has remained stable. Intake Vital Signs: See EMR Intake Visit Reasons: [facility] Music Manager Required: No Is patient in pain?: No Allergies ketorolac tromethamine [From Toradol] Allergy (Severe, Verified 07/21/23 15:26) Shortness of breath Medications See EMR [facility] Medical History Arthritis Carpal tunnel syndrome Essential hypertension Female stress incontinence History of endocarditis Lupus Nonrheumatic aortic (valve) insufficiency Nonrheumatic aortic (valve) stenosis Seizure disorder Seizures Surgical History History of tonsillectomy Family History Other Arthritis Cancer Diabetes Heart disease Hypertension Myocardial infarction Social History Smoking Status: Former smoker how long ago did patient quit smokin years ago second hand exposure: No alcohol intake: current alcohol intake frequency: a few times a month substance use type: does not use caffeine: Yes Type: coffee Number of servings: 2 seatbelt use: never ROS Const Const: Negative for fatigue, weakness, body ache, fever(s) or chills ENT ENT: Negative for dizziness or Nosebleed/epistaxis Cardio Chest Pain: No Palpitations: No Edema: None Muscle aches with walking: None Resp Respiratory: Negative for SOB with activity, SOB at rest, SOB orthopnea\SOB lying down, Cough or paroxysmal nocturnal dyspnea GI GI: Negative nausea, vomiting blood/hematemesis, bright, red blood in stools or black,tarry stools : Negative for hematuria or frequent nighttime urination/ nocturia Musc Musc: Negative for muscle aches/ myalgia Skin Skin: Negative non-healing lesions or rash Neuro Neuro: Negative for dizziness, lightheadedness, near syncope, syncope, orthostatic symptoms or weakness Endo Endo: Negative for fatigue Allergy Allergy/Immunology: Negative for rash Cardiology Exam Const Appearance: cooperative, healthy appearing, comfortable and no acute distress Nutritional Appearance: average body habitus and well nourished Orientation: alert, awake and oriented x3 Head Head: normal to inspection Ears: hearing grossly normal bilaterally Nose: external nose normal Face and Sinus: face symmetric Mouth: moist mucous membranes Eyes General: appearance normal, both eyes and all related structures Eyelids: eyelids normal EOM: EOM intact bilaterally Neck Neck: normal visual inspection and no JVD Carotids: normal carotid upstroke Chest Chest inspection: normal inspection of the chest, symmetric chest movement and normal respiratory effort; Negative cough Auscultation: Bilateral: Clear to Auscultation Cardio Rate: regular rate Rhythm: regular rhythm Heart sounds: S1 normal and S2 normal; Negative rub, gallop or murmur Murmur: Grade 2/6 and soft GI GI: normal to inspection Neuro General: patient alert, patient awake, patient oriented x3 and CN's II-XI intact bilaterally Skin Skin: no rashes or lesions noted Extremities Pulses: Normal: Right Posterior Tibial Pulse, Left Posterior Tibial Pulse, Right Radial Pulse and Left Radial Pulse Lower Extremity Edema: None: Bilateral Psych Psychological: normal affect Supplemental Info Supplemental Information Echocardiogram from 09/13/2023: Interpretation Summary Normal LV size. Moderate concentric left ventricular hypertrophy. The left ventricular ejection fraction is 70 %. Stage 2 diastolic dysfunction. Probable bicuspid valve with raphe Mean aortic valve gradient 40 mmHg. Mild-Moderate (1-2+) aortic valve insufficiency. Mildly dilated aortic root. Moderate to severe aortic stenosis. Echocardiogram from 01/22/2022: Interpretation Summary Normal LV size. Left ventricular systolic function is normal. The estimated ejection fraction is 60 %. Moderate focal aortic valve calcification. Bicuspid aortic valve. Mild to moderate aortic stenosis. Stage 1 diastolic dysfunction. Carotid Duplex 12/08/21 Interpretation Summary Mild (<50%) stenosis right extracranial internal carotid. No significant atherosclerotic plaque or stenosis noted in the left internal carotid artery. Flow within the vertebral arteries is antegrade bilaterally. Assessment and Plan Assessment and Plan (1) Nonrheumatic aortic (valve) stenosis: Status: Chronic Plan: As her most recent echocardiogram showed worsening aortic valve stenosis with a mean aortic valve gradient of 40 mmHg, she will proceed with a heart catheterization to better define coronary anatomy. She will then be referred to appropriate valve center for further workup and decision regarding aortic valve stenosis. (2) Essential hypertension: Status: Chronic Plan: Patient's blood pressure is well-controlled today in the office. We will continue to monitor this. We will not make any medication regimen changes.
[2023-09-24 11:27] VITALS: BMI 34.2
--- NOTE | 2023-09-27 12:29 | CL.D_ITS ---
Patient Name: JAKY WORTHY Study Date: 09/27/2023 Performing: Adam Solorzano MD Ht: 61 inches 154.94 cm : 1975 Wt: 181 lbs 82.1 kg Age: 48 Gender: female BSA: 1.81 PROCEDURE(S) PERFORMED DC02-(98083)LHC/COR DC11-([id number])AO ROOT ANGIO WITH HEART CATH CLINICAL PROFILE AND INDICATIONS Indications: Valvular Disease Heart Failure: None Stress/Imaging Stress/Image Study Performed: No CAD Presentations: No Sxs, no angina. CONCLUSIONS Dilated aortic root, bicuspid aortic valve, mild aortic regurgitation, moderately severe aortic stenosis, normal coronary arteries. RECOMMENDATIONS Will refer to surgeons for aortic valve surgery and aortoplasty DESCRIPTION OF PROCEDURE The patient arrived to the procedure lab. The risks and benefits of the procedure as well as a full description of our services here and current unavailability of surgical backup were fully explained to the patient and/or their significant other prior to the catheterization. The Timeout was completed, verifying the correct patient and procedure. The patient's procedural site was prepped and draped in the usual fashion. Local anesthetic was given subcutaneously to right radial region with Lidocaine 2%. Using a modified Seldinger technique, arterial access was obtained via the right radial artery, a 6Fr sheath was inserted. Left Coronary Artery selective angiography was performed in multiple views using a 5 Fr. 4.0 [place] catheter. Right Coronary Artery selective angiography was then performed in multiple views using a 5 Fr. 4.0 [place] catheter. Ascending (root) aorta selective angiography was then performed in single view using a pigtail catheter.. Ascending (root) aorta selective angiography was then performed in single view using a pigtail catheter..The arterial sheath was pulled and a TR Band was applied for hemostasis CORONARY ANGIOGRAPHY DOMINANCE: Right Dominant LEFT HEART ASSESSMENT Left Ventricular Ejection Fraction: by Echo 60 % Normal LV wall motion Normal Left Ventricular systolic function LEFT MAIN: Angiographically normal LEFT ANTERIOR DESCENDING ARTERY: Angiographically normal CIRCUMFLEX ARTERY: Angiographically normal RIGHT CORONARY ARTERY: Angiographically normal VALVE FINDINGS: Bicuspid Aortic Valve Aortic Valve Stenosis - moderate Aortic Valve Insufficiency: Grade 2 AORTIC ROOT: Dilated COMPLICATIONS No Complications PROCEDURE MEDICATIONS Fentanyl 50 mcg IV Versed 1 mg IV Versed 1 mg IV SUMMARY OF HEMODYNAMIC DATA Time AIR REST ECG 09:44:24 AO 107/66 (84) SA 12:05:33 Signed By Adam Solorzano MD On 09/27/2023 12:28:56 Adam Solorzano MD
== END 2023-09-27 14:15 | disposition home or self-care (01) ==
PROVIDERS: Nurse Practitioner Family; PCP Family Medicine; Referring Provider Internal Medicine Cardiovascular Disease; Visit Provider Internal Medicine Cardiovascular Disease
DX: I35.2 Nonrheumatic aortic (valve) stenosis with insufficiency (principal); I10 Essential (primary) hypertension; Z87.891 Personal history of nicotine dependence; I77.819 Aortic ectasia, unspecified site
CPT/HCPCS: 36415; 80048; 85025; 93454; 99152; 99153; J7040; Q9967; C1769; C1894

== ENCOUNTER → 2023-11-29 | Outpatient (CLI) | payer OTHER, SELFPAY ==
--- NOTE | 2023-11-29 08:03 | CR.HP_ITS ---
CR - History & Physical General Arrival date:: 11/29/23 Arrival time:: 08:04 Date of Referral:: 11/19/23 Date of CR Evaluation:: 11/29/23 Referring Physician: Dr. Solorzano Primary Diagnosis: Heart valeve replacement History of Present Cardiac Event Onset Date Heart valve replacement or repair:: Yes (11/05/23 onset) Medications Ambulatory Orders ?Medication ?Instructions ?Recorded aspirin 81 mg chewable tablet 81 mg PO DAILY@0800 07/20/13 hydroxychloroquine 200 mg tablet 1 tab PO BID 07/20/13 ergocalciferol (vitamin D2) 1,250 50,000 unit PO DAILY 02/14/19 mcg (50,000 unit) capsule mycophenolate mofetil 500 mg tablet 250 mg PO ONCE 05/14/21 ferrous fumarate 324 mg (106 mg See Rx Instructions .Route 03/30/22 iron) tablet (Ferrocite) .COMPLEX #60 tabs rosuvastatin 10 mg tablet 10 mg PO DAILY 06/03/22 levetiracetam 1,000 mg tablet 1,000 mg PO BID #180 tabs 06/23/23 warfarin 4 mg tablet 4 mg PO DAILY #90 tabs 11/19/23 Allergies Allergies ketorolac tromethamine (From Toradol) Allergy (Severe, Verified 08/26/23 14:30) Shortness of breath Sleep Disorder Evaluation Hx of Sleep Apnea: Yes Do you snore loudly (louder than talking or can be heard through closed doors)?: No Do you often feel tired/ fatigued/ sleepy during daytime?: No Has anyone observed you stop breathing during sleep?: No History of Hypertension (for STOP score): Yes STOP Results: Negative Advanced Directives Advanced Directives Power of Conference Services Director: No Living Will: No Advance Directives Information Provided: No Advance Directives on File: No DNR Order?:: No Past Medical History Covid-19 Screening Physicial Symptoms Other Clinical Concerns Exposure Risk Pertinent Comorbidities Has a serious heart condition:: Yes Past Medical Illness Past Medical History (Updated 11/19/23 @ 11:33 by Cait Mathur) Seizures R56.9 Carpal tunnel syndrome G56.00 Arthritis M19.90 Nonrheumatic aortic (valve) stenosis I35.0 Essential hypertension I10 Nonrheumatic aortic (valve) insufficiency I35.1 Seizure disorder G40.909 Female stress incontinence N39.3 History of endocarditis Z86.79 patient denies Lupus M32.9 Past Surgical History Past Surgical History (Updated 11/19/23 @ 10:45 by Cait Mathur) H/O mechanical aortic valve replacement (11/05/23) Z95.2 #[address] [place] mechanical aortic valve per Dr. Kevin Keys at [facility] [place] History of tonsillectomy Z90.89 Family History Summary Family History Other Arthritis Cancer Diabetes Heart disease Hypertension Myocardial infarction Social History Smoking History Smoking Status: Former smoker Years Smokin Packs Smoked per Day: 1 (stopped smoking 20 years ago) Alcohol Use Alcohol Usage: Yes (rare) Substance Abuse Hx Substance Use: No Occupation Occupation (List type of work in comments):: Employed Hours worked per day:: 8 Social Environment Status Marital Status: Current Living Arrangements Living Environment:: Family Children How many children do you have?: 1 Do any of your children live nearby?: Yes Safety Do you feel safe in your surroundings?: Yes Assistance Do you need any assistance at home?: no Review of Systems Review of Systems Hints Review of Present Symptoms: Reports Shortness of Breath with Exertion, Operative Discomfort, Fatigue, Appetite - Normal and Appetite - Special Diet; Denies Shortness of Breath at Rest, PVD, Angina, Wound Healing, Dizziness/Lightheadedness, Heart Arrhythmia/Irregularities, Sleep - Normal or Sexual Changes Pain Is Patient Pain Free?: No Pain Location: back Pain Level: 4/10 Risk Factor Assessment Vital Signs Pulse Ox: 97 Blood Pressure: 115/78 Pulse Pulse Rate: 85 Hypertension Blood Pressure Sitting - Right Arm: 115/78 Obesity Height: 5 ft 1 in Weight:: 182 lb Weight in Pounds: 182.0 lbs Body Mass Index (BMI): 34.4 Physical Inactivity Physical Inactivity: Reg Exercise 30 min/day Risk Stratification Risk Guidelines: Lowest Risk: Risk Factor for Smoking, Moderate Risk: Risk Factor for Dyslipidemia, Risk Factor for Diabetes, Risk Factor for Obesity, Risk Factor for Sedentary Lifestyle and Risk Factor for Depression and Highest Risk: Risk Factor for Hypertension For Smoking Smoking Risk Guidelines For Dyslipidemia Dyslipidemia Risk Guidelines For Diabetes Mellitus Diabetes Risk Guidelines For Obesity/Overweight Obesity/Overweight Risk Guidelines For Hypertension Hypertension Risk Guidelines For Sedentary Lifestyle Sedentary Lifestyle Risk Guidelines For Depression Depression Risk Guidelines Family History Family History Other Arthritis Cancer Diabetes Heart disease Hypertension Myocardial infarction Motivation Motivation to Participate On a scale of 1 to 10, how prepared are you to commit to attending program?: 10 What do you see as barriers to successfully being able to complete the program?: nothing What do you see as the benefits of succesfully completing the program? In other words, what do you hope to get out of participating in the program?: exercise routine, stronger Are there issues you are dealing with that will interfere with completing the program?: no Do you have a spouse or signficant other, family or friends who will help support you to complete the program?: yes
[2023-11-29 08:09] VITALS: BP 115/78; PULSE 85; O2SAT 97
--- NOTE | 2023-11-29 08:10 | PCM.CR.ITP ---
Diagnosis General Information Admitting Diagnosis: Heart valve replacement Personal Learning Style:: Audio/Visual Barriers to Learning: No Barriers Stage of change r/t lifestyle modifications:: Contemplation Gave educational material for:: Treating Heart Disease, How The Heart Works, What it means to have Heart Disease, How Coronary Artery Disease is Diagnosed, Heart Procedures, What Heart Medications Do, Risk Factors & Modifications, Living an Active Life, Nutrition, Emotions & Heart Disease, Stress Management & Relaxation and Sleep Disorders & Heart Disease Education/Goals Cardiac Rehabilitation Goals Personal Goals: Initial Assessment: Improve energy level, Participate in home exercise program, Get back to work, or to resume activities faster, Improve muscle strength and endurance and Control risk factors (learn risk factor modification) Scale for measuring improvement of personal goals Diagnosis & Disease Process Outcomes/Goals: Pt IDs own risk factors & lifestyle modifications by Session 10, Verbalizes symptoms of angina & response by session 3., Pt independently manages and Other Additional Outcomes/Goals: Plan/Interventions: Assist Pt to ID & engage in lifestyle modification to reduce CVD risk, Instruct on individual risk factors, Review symptoms of angina & emergency actions, Review secondary diagnosis & identify educational needs. and Other see comment 30 day Reassessments:: Not Met 30 day Reassessments:: Not Met 30 day Reassessments:: Not Met 30 day Reassessments:: Not Met Final Reassessments:: Not Met Safety Referral to Physical Therapy: No Referral to [facility] Case Management: No Fall Risk Assessed:: Yes Assistive Devices:: None Exercise - Initial Assessment Visit Date of Eval: 11/29/23 (initial eval ) Mets: Pre-: >3 METS for 30 minutes by discharge, >5 METS for 30 minutes by discharge, >7 METS for 30 minutes by discharge and Unable to meet goal due to: (see comment below) Physician Prescribed Exercise Modalities: Treadmill, Schwinn Airdyne AD-7, SciFit Stepper, SciFit Pro-II Ergometer and SciFit Lateral [place] Frequency: 3x/week for 12 weeks [36 sessions] Intensity: 60-80% of age predicted maximum heart rate reserve Duration: 30 - 45 minutes Current METSs:: 3 Target Heart Rate:: 102-128 Resting Blood Pressure: 115/78 EKG Type: NSR t wave abnormality/ hx Afib RVR Outcomes & Goals Goals:: Verbalizes understanding of THR, RPE & goal METS by session 6, Documents in home exercise log/reports 30 min aerobic 5 day/wk by DC, Demonstrates accurate pulse taking by DC and Other additional outcome/goals: see below Intervention & Plan Exercise Program Goals: Instruct on personal THR & RPE, Instruct on MET level & personal MET goal, Show patient to take own pulse /validate performance until accurate, Instruct on home exercise and Other additional plan/int Physical Activity Home Exercise Physical Activity - Home Exercise: Safe Exercise, Warm-up, Self-monitoring, Cool-Down, Home Exercise > 30 min Daily and Sitting Time <3 hours/daily Outcomes & Goals Outcomes/Goals: Demonstrates correct Warm-up/exercise Cool-Down (S3) if = 2.5 METs, Verbalizes symptoms of exercise intolerance by Session 3 (S3), Demonstrate safe equipment use (S3) & follows exercise prescrition (6) and Other: See below Intervention & Plan Plan/Intervention: Instruct warm-up & cool-down if exercising at > 2 METs, Instruct on symptoms of exercise intolerance & actions to take, Instruct & monitor on saf, Assess intial functional capacity & safety risk and Other See below Nutrition - Initial Assessment Program Goals Nutrition Program Goals Patient has diagnosis of Hyperlipidemia (ICD E78)?: No Visit Date of Eval: 11/29/23 (initial eval ) Cholesterol/Lipids (Other Core Measures) Determine presence & major risk factors that modify LDL goal: Hypertension or hypertensive medication, Low HDL cholesterol <40 mg/dL*, Family history of premature CHD in Male < 55 years: female <65 yearsFa and Age men > 45 years; women >/= 55 years Outcomes/Goals: Pt IDs own risk factors & lifestyle modifications by Session 10, Verbalizes symptoms of angina & response by session 3., Pt independently manages and Other Additional Outcomes/Goals: Intervention/Plan: Advocate for lipid panel cholesterol medication if applicable, Instruct on personal lipid levels & lipid goals/NCEP guidelines, Instruct on cholesterol and Other additional plan/int Referral to dietitian:: No Diabetes (Other Core Measures) Diabetes Type: Not Applicable Weight Mgt (Other Care) Height: 5 ft 1 in Weight:: 182 lb BMI: 34.4 Diagnosis Overweight/Obesity BMI> 30% ICD-10 E66: Yes Diagnosis High BMI/Morbid Obesity BMI> 35% ICD-10 Z68: No Outcomes/Goals: Pt sets, maintains & shows weight loss goal & trend during rehab and Other additional outcomes/goals Intervention/Plan: Instruct on ideal BMI & set weight loss goal w/patient, Assist pt to ID & incorporate diet changes for weight loss by S9, Refer to Structured Weight Loss program as appropriate, Encourage goal of using 250-300dcal per session for weight loss and Other additional plan/interventions Healthy Eating Habits Will attend diet classes:: Yes Outcomes/Goals:: Consume diet rich in vegs,fruits,whole grain/high fiber,fish,lean meat, Limit sat/trans fats,cholesterol & added salts & sugars and Other additional outcome/goals: Intervention/Plan:: Assess current eating habits and Other Additional plan/interventions Education Gave educational materials for:: Signs & symptoms of hypoglycemia, Signs & symptoms of hyperglycemia, Relate diabetes to coronary artery disease and Healthy eating Core - Initial Assessment Visit Date of Eval: 11/29/23 (initial eval ) Medication Compliance Preventative Medication(s):: Aspirin and Statin/lipid H/O mental health issues: depression, anxiety, or addiction?: No Doesn?t believe in the benefits of treatment?: No Believes medications are unnecessary or harmful?: No Has a concern about medication side effects?: No Expresses concern over the cost of medications?: No Outcomes/Goals: Verbalizes medications,desired effect & common side effects @ DC, Pt self-reports following medication regimen, Keeps card in wallet w/medications listed by DC and Other additional outcome/goals: Interventions/plans: Instruct on medication effects & side effects, Review medication list w/patient every two weeks, Instruct importance of taking meds as ordered & assist problem solving and Other additional Tobacco Use Tobacco Use: Cigarettes (former smoker stopped 20 years ago) How long ago did you quit using tobacco products?: Greater than or equal to 6 months ago How many cigarettes do you smoke per day?: 20 Years Smokin Hypertension Resting Blood Pressure:: 115/78 [place] [employer] Hypertension Guidelines Outcomes/Goals: Able to verbalize/achieve optimal blood pressure <130/80, Incorporates diet changes & exercise for blood pressure control by DC and Other additional outcomes/goals Interventions/plan: Instruct on optimal blood pressure, hypertension & medications, Instruct on effects of sodium, alcohol, stress, exercise &hypertension and Other additional plan/interventions Tobacco Cessation Referral Smoking Cessation Referral:: No Individual Education/Counseling:: No Education Schedule Given:: Yes Psychosocial - Initial Assess VIsit Date of Eval: 09/09/24 (initial eval) History of previous Mental disease:: No Target Goals Target Goals Outcomes/Goals: See list Psychosocial Outcomes/Goals:: ID's personal stressors & 2 strategies to manage stress by discharge and Other Additional outcome/goals: Intervention/Plan: See List Interventions/Plan:: Assess stressors,coping strategies & signs of derpression on admission, Instruct/assist pt to develop coping & personal stress Mgt strategies, Refer to Behavioral Health if appropriate, Refer to Physician if appropriate, Instruct patient to recognize signs & symptoms of depression, Instruct patient to recog and Other additional plan/intervention Patient Health Questionnaire PHQ-9 Screening Initial Assessment: 1. Little interest or pleasure in doing things: Several days 2. Feeling down, depressed, or hopeless: Not at all 3. Trouble falling or staying asleep, or sleeping too much: Several days 4. Feeling tired or having little energy: Not at all 5. Poor appetite or overeating: Not at all 6. Feeling bad about yourself -- or that you are a failure or have let yourself or your family down: Several days 7. Trouble concentrating on things, such as reading the newspaper or watching television: Not at all 8. Moving or speaking so slowly that other people could have noticed. Or the opposite - being so fidgety or restless that you have been moving around a lot more than usual: Not at all 9. Thoughts that you would be better off , or of hurting yourself in some way: Not at all How difficult have these problems made it for you to do your work, take care of things at home, or get along with other people?: Not difficult at all Total Score: 3 ROMAN-Q SV Test Statements CAD is a disease of the arteries in the heart: False Examples of risk factors for heart disease: True Angina is chest pain or discomfort: I Don't Know The benefits of resistance training include: True Eating more meat and dairy products: I Don't Know Anti-platelet medications such as aspirin are important: True The only effective way to manage stress: False An exercise warm-up slowly increases heart rate: True Prepared, processed foods usually have high sodium: True Depression is common after a heart attack: True The statin medications lower cholesterol: True To control blood pressure, lower the amount of sodium: True If someone gets chest discomfort during walking: False Transfats are partially hydrogenated vegetable oils: I Don't Know Sleep apnea that is not treated increases the risk: I Don't Know To control cholesterol, one should become a vegetarian: False Someone knows if he/she is exercising at the right level: True Diabetes cannot be prevented with exercise & health eating: False Stress is a large risk for heart attack: True A diet that can help lower blood pressure is rich in: True Total Score Total Correct Responses: 16 Self-Efficacy 6-Item Scale Initial Assessment: We would like to know how confident you are in doing certain activities. Please select your confidence level for: Fatigue Select Number: 6 Physical Discomfort or Pain Select Number: 6 Emotional Distress Select Number: 6 Other Symptoms or Health Problems Select Number: 6 Different Tasks and Activities Select Number: 6 Medication Select Number: 6 Total Score:: 6 Nutrition Survey Nutrition Survey Instructions Scoring Instructions Nutrition Survey Initial: Have you lost >10 lbs over the past 2 months without trying?: No Are you following a special diet at home for diabetes, low fat, or low salt?: Yes Are you interested in meeting with a dietitian for help understanding your diet?: No Do you eat less than 3 meals a day?: No Do you eat fatty meats (montano, sausage, ribs, etc), fried foods, desserts, large amounts of salad dressings, margarine, butter, or cheese most days?: Yes Do you have food allergies? [Enter types in comment field]: Yes Do you eat in restaurants more than 3 times a week?: No Do you season food with salt, seasoning salt, or garlic salt?: Yes Do you used canned, boxed, frozen meals, or soups, seasoning packets?: Yes Total Score:: 5 Exercise - 30-day Assessment Physician Prescribed Exercise Modalities: Treadmill, Schwinn Airdyne AD-7, SciFit Stepper, SciFit Pro-II Ergometer and SciFit Lateral [place] Exercise - 60-day Assessment Physician Prescribed Exercise Modalities: Treadmill, Schwinn Airdyne AD-7, SciFit Stepper, SciFit Pro-II Ergometer and SciFit Lateral [place] Exercise - 90-day Assessment Physician Prescribed Exercise Modalities: Treadmill, Schwinn Airdyne AD-7, SciFit Stepper, SciFit Pro-II Ergometer and SciFit Lateral [place] Exercise - Final/Discharge Physician Prescribed Exercise Modalities: Treadmill, Schwinn Airdyne AD-7, SciFit Stepper, SciFit Pro-II Ergometer and SciFit Lateral [place] Frequency: 3x/week for 12 weeks [36 sessions] Intensity: 60-80% of age predicted maximum heart rate reserve Current METSs:: 3 Target Heart Rate:: 102-128 Nutrition - 30-Day Assessment Weight Mgt (Other Care) Height: 5 ft 1 in Weight:: 182 lb BMI: 34.4 Nutrition - 60-Day Assessment Weight Mgt (Other Care) Height: 5 ft 1 in Weight:: 182 lb BMI: 34.4 Core - 30-Day Assessment Tobacco Use Years Smokin Core - Final Assessment Hypertension Resting Blood Pressure:: 115/78 [place] [employer] Hypertension Guidelines Core - 60-Day Assessment Hypertension Resting Blood Pressure:: 115/78 [place] [employer] Hypertension Guidelines Psychosocial - 30-Day Assess Target Goals Target Goals Psychosocial - 60-Day Assess Target Goals Target Goals Psychosocial - 90-Day Assess Target Goals Target Goals Psychosocial - Final Assessmen Target Goals Target Goals Nutrition - 90-Day Assessment Weight Mgt (Other Care) Height: 5 ft 1 in Weight:: 182 lb BMI: 34.4 Nutrition - Final Assessment Program Goals Patient has diagnosis of Hyperlipidemia (ICD E78)?: No Weight Mgt (Other Care) Height: 5 ft 1 in Weight:: 182 lb BMI: 34.4
[2023-11-29 08:17] VITALS: BP 115/78
[2023-11-29 08:44] VITALS: BMI 34.4
[2023-11-29 08:53] VITALS: BMI 34.4
== END | disposition home or self-care (01) ==
PROVIDERS: PCP Family Medicine; Referring Provider Internal Medicine Cardiovascular Disease; Visit Provider Internal Medicine Cardiovascular Disease
DX: Z00.00 Encounter for general adult medical examination without abnormal findings (principal)

== ENCOUNTER → 2023-11-30 | Outpatient (CLI) | payer OTHER, SELFPAY ==
[2023-11-29 08:53] VITALS: BMI 34.4
[2023-11-30 12:36] LABS: Bacteria 0 SEEN /hpf (None Seen); Mucous, Urine 0 SEEN /hpf (<or=2+); Red Blood Cells-Urine 0 SEEN /hpf (0-5); Squamous Epithelial Cells - UA 0 SEEN /hpf (5-10); White Blood Cells 0 SEEN /hpf (0-5)
[2023-11-30 15:48] LABS: Color, Urine Yellow (Yellow); Glucose, Dipstick Normal (Normal); Ketone-Dipstick Negative (Negative); Leukocyte Esterase-Dipstick Negative /ul (Negative); Nitrite-Dipstick Negative (Negative); Occult Blood-Urine Negative /ul (Negative); Protein-Dipstick Negative (Negative); Urine Bilirubin Dipstick Negative (Negative); Urine Clarity Clear (Clear); Urine Urobilinogen Normal (Normal); Urine pH 6.5 (5.0 - 8.0)
[2023-11-30 16:13] LABS: Absolute Lymphocyte Count 0.66 X10^3/uL (0.83-4.51); Absolute Neutrophil Count 3.5 X10^3/uL (2.0-7.7); Basophil# 0.02 X10^3/uL; Basophil% 0.4 % (0-1); Eosinophil# 0.05 X10^3/uL; Eosinophils% 1.1 % (0-5); Hematocrit 35.1 % (37-47); Lymphocyte # 0.66 X10^3/ul (0.83-4.51); Lymphocyte % 14.3 % (19-41); Mean Corp Hgb Conc 31.3 g/dL (32-36); Mean Corpuscular Hgb 27.2 pg (27.0-32.0); Mean Corpuscular Volume 86.7 fL (81-99); Mean Platelet Vol. 10.4 fl (6.2-12.0); Monocyte# 0.32 X10^3/uL; NRBC Flagged by Analyzer 0 % (0-5); Neutrophil % 76.1 % (47-70); Platelet Count 231 K/mm3 (150-450); RBC Distribution Width CV 14.6 % (11.6-14.6); RBC Distribution Width SD 46.6 fl (35.1-43.9); Red Blood Count 4.05 M/mm3 (4.2-5.4); White Blood Count 4.6 K/mm3 (4.4-11.0)
[2023-11-30 16:32] LABS: AST(SGOT) 16 U/L (15-37); Alanine Aminotransfer ALT/SGPT 15 U/L (13-56); BUN 13 mg/dL (7-18); Creatinine, Serum 0.87 mg/dL (0.55-1.02); EST Glomerular Filtration Rate 73 mL/min (>60); Est Glom Filt Rate - Afr Amer 89 mL/min (>60)
[2023-11-30 16:39] LABS: Erythrocyte Sedimentation Rate 29 mm/hr (0-30)
[2023-12-02 08:12] LABS: Complement C3 137 mg/dL (82-167)
[2023-12-02 15:08] LABS: Anti-dsDNA Ab 9 IU/mL (0-9)
== END | disposition home or self-care (01) ==
PROVIDERS: PCP Family Medicine; Visit Provider Internal Medicine Rheumatology
DX: M32.9 Systemic lupus erythematosus, unspecified (principal); Z79.899 Other long term (current) drug therapy
CPT/HCPCS: 36415; 81001; 82565; 84450; 84460; 84520; 85025; 85652; 86140; 86160; 86225

== ENCOUNTER → 2023-12-10 | Outpatient (CLI) | payer OTHER, SELFPAY ==
[2023-11-29 08:53] VITALS: BMI 34.4
[2023-12-10 12:18] LABS: Absolute Lymphocyte Count 0.41 X10^3/uL (0.83-4.51); Absolute Neutrophil Count 3.2 X10^3/uL (2.0-7.7); Basophil# 0.02 X10^3/uL; Basophil% 0.5 % (0-1); Hematocrit 37.5 % (37-47); Hemoglobin 12.3 g/dL (12.0-15.0); Lymphocyte # 0.41 X10^3/ul (0.83-4.51); Lymphocyte % 10.7 % (19-41); Mean Corp Hgb Conc 32.8 g/dL (32-36); Mean Corpuscular Volume 82.4 fL (81-99); Mean Platelet Vol. 10.5 fl (6.2-12.0); Monocyte# 0.14 X10^3/uL; Monocyte% 3.7 % (0-10); NRBC Flagged by Analyzer 0 % (0-5); Neutrophil # 3.18 X10^3/uL (2.7-7.7); POSITIVE DIFFERENTIAL YES; Platelet Count 195 K/mm3 (150-450); RBC Distribution Width CV 14.4 % (11.6-14.6); Red Blood Count 4.55 M/mm3 (4.2-5.4); White Blood Count 3.8 K/mm3 (4.4-11.0)
[2023-12-10 12:31] LABS: Vitamin B12 686 pg/mL (211-911)
[2023-12-10 13:12] LABS: ALB/GLOB Ratio 0.8 RATIO (0.9-2.4); AST(SGOT) 33 U/L (15-37); Alanine Aminotransfer ALT/SGPT 25 U/L (13-56); Albumin, Serum 3.4 g/dL (3.2-5.0); Alkaline Phosphatase 100 U/L (45-117); Anion Gap 13 (5-15); BUN 21 mg/dL (7-18); BUN/Creat Ratio 16.5 RATIO (10-20); Calcium,Total 8.8 mg/dL (8.5-10.1); Chloride 93 mmol/L (98-107); Cholesterol 94 mg/dL (200); Creatinine, Serum 1.27 mg/dL (0.55-1.02); EST Glomerular Filtration Rate 47 mL/min (>60); Est Glom Filt Rate - Afr Amer 57 mL/min (>60); Ferritin 2124 ng/mL (8-252); Globulin 4.1 g/dL (2.2-4.2); Glucose 104 mg/dL (74-106); High Density Lipoprotein 32 mg/dL; Iron 18 ug/dL (50-170); Iron Binding Capacity,Total 237 ug/dL (250-450); Potassium 4.1 mmol/L (3.5-5.1); Protein, Total 7.5 g/dL (6.4-8.2); Sodium Level 125 mmol/L (136-145); Triglycerides 147 mg/dL; Very Low Density Lipoprotein 29 mg/dL (5-40)
== END | disposition home or self-care (01) ==
LOC: MFPLAB 10:27
PROVIDERS: PCP Family Medicine; Visit Provider Family Medicine
DX: D50.9 Iron deficiency anemia, unspecified (principal); Z86.73 Personal history of transient ischemic attack (TIA), and cerebral infarction without residual deficits
CPT/HCPCS: 36415; 80053; 80061; 82607; 82728; 82746; 83540; 83550; 85025

== ENCOUNTER 2023-12-12 03:09 | Inpatient (IN) | payer OTHER, SELFPAY ==
[2023-11-29 08:53] VITALS: BMI 34.4
[2023-12-12] VITALS (28 sets, daily range): BP systolic 89–127; BP diastolic 40–68; PULSE 74–101; RESP 18–32; TEMP 36.3–39.6; O2SAT 92–99; BMI 32.5; BMI 32.0; BMI 32.7
--- NOTE | 2023-12-12 03:18 | EKG12_ITS ---
Test Reason : DYSRHYTHMIA Blood Pressure : / mmHG Vent. Rate : 097 BPM Atrial Rate : 097 BPM P-R Int : 130 ms QRS Dur : 098 ms QT Int : 344 ms P-R-T Axes : 015 -01 155 degrees QTc Int : 436 ms Normal sinus rhythm Left ventricular hypertrophy with repolarization abnormality ( R in aVL , Nilson product ) Abnormal ECG Confirmed by Brayan Long ([id number]), order editor JACK MITCHELL ([id number]) on 12/13/2023 10:59:39 AM Referred By: Confirmed By:Brayan Long
--- NOTE | 2023-12-12 03:18 | RAD_ITS ---
EXAM: XR CHEST, 1 VIEW CLINICAL INDICATION: fever TECHNIQUE: Frontal view of the chest. COMPARISON: Previous chest radiographs of 09/17/2023 and 05/09/2021. Abdomen CT of this date. FINDINGS: LUNGS AND PLEURAL SPACES: Lesser degree of inspiration with development of discoid atelectasis in the right midlung and within the right lower lung. No patchy airspace disease. No pneumothorax or pleural effusion. HEART: Heart size is upper normal with normal pulmonary vasculature. MEDIASTINUM: Thoracic aorta remains minimally elongated and calcific. No mediastinal widening. BONES/JOINTS: Interval median sternotomy since previous chest radiograph of 09/12. No acute fracture. SOFT TISSUES: Unremarkable. RAD/Chest 1 View (Portable) IMPRESSION: Lesser degree of inspiration with development of discoid atelectasis within the right lung. Interval median sternotomy and cardiac valve replacement. No pneumonia. Electronically Signed: Jacob Holloway MD at 5:18 EDT ,
--- NOTE | 2023-12-12 03:20 | ED.VIS.GI ---
HPI HPI - GI History of Present Illness Chief Complaint: Nausea/Vomiting/Diarrhea Informant: patient and spouse/S.O. Narrative Narrative: 48-year-old female has had nausea, vomiting, and black watery diarrhea for the past 1 or 2 days to the point where she cannot keep anything down. Denies abdominal pain. Fever up to 103 at home. Had a [place] aortic valve replacement about 2 weeks ago for which she is on warfarin, and developed some wounds at the sternotomy that opened and she was put on antibiotics to take care of any residual infection there, and she has been doing packing along with her helping at home, and is slated to follow-up at wound care. They have been doing okay. She is just finishing up with the antibiotics that were prescribed for the wounds about a week ago. She had no fevers until the vomiting and diarrhea started. She denies any coughing. [facility] Medical History (Updated 12/12/23 @ 05:[address] Ernesto Holman MD) CKD (chronic kidney disease), stage II Adult celiac disease PAF (paroxysmal atrial fibrillation) CAD (coronary artery disease) Obesity Former tobacco use History of CVA (cerebrovascular accident) Iron deficiency anemia Lupus anticoagulant positive SLE (systemic lupus erythematosus) Seizures Carpal tunnel syndrome Arthritis Nonrheumatic aortic (valve) stenosis Essential hypertension Nonrheumatic aortic (valve) insufficiency Seizure disorder Female stress incontinence History of endocarditis Home Medications ?Medication ?Instructions ?Recorded ?Last Taken ?Type aspirin 81 mg chewable tablet 81 mg PO DAILY@0800 07/20/13 09/27/23 History hydroxychloroquine 200 mg tablet 1 tab PO BID 07/20/13 Unknown History ergocalciferol (vitamin D2) 1,250 50,000 unit PO DAILY 02/14/19 09/27/23 History mcg (50,000 unit) capsule mycophenolate mofetil 500 mg tablet 250 mg PO ONCE 05/14/21 09/27/23 History ferrous fumarate 324 mg (106 mg See Rx Instructions .Route 03/30/22 Unknown Rx iron) tablet (Ferrocite) .COMPLEX #60 tabs rosuvastatin 10 mg tablet 10 mg PO DAILY 06/03/22 Unknown History levetiracetam 1,000 mg tablet 1,000 mg PO BID #180 tabs 06/23/23 Unknown Rx acetaminophen 325 mg tablet 650 mg PO Q6H PRN PRN mild pain 12/12/23 Unknown History amiodarone 200 mg tablet mg PO 12/12/23 Unknown History metoprolol succinate 100 mg PO 12/12/23 Unknown History tablet,extended release 24 hr oxycodone 5 mg tablet 5 mg PO Q6H PRN PRN pain 12/12/23 Unknown History warfarin 4 mg tablet 4 mg PO DAILY 12/12/23 Unknown History Allergy/AdvReac Type Severity Reaction Status Date / Time ketorolac tromethamine (From Allergy Severe Shortness Verified 12/12/23 03:11 Toradol) of breath Family History (Updated 12/12/23 @ 05:[address] Roopa Deluca MD) Grandmother CVA (cerebral vascular accident) Uterine cancer Uncle Heart disease Myocardial infarction CAD (coronary artery disease) Hypertension Mother Diabetes Surgical History (Updated 12/12/23 @ 05:[address] Ernesto Holman MD) S/P hysterectomy H/O mechanical aortic valve replacement (11/05/23) History of tonsillectomy Social History (Updated 12/12/23 @ 05:[address] Roopa Deluca MD) household members: spouse Smoking Status: Former smoker how long ago did patient quit smoking: Smoked ~ 1 ppd x 5 years, quit 05/28/2008 second hand exposure: No alcohol intake: current alcohol intake frequency: holidays/special occasions only substance use type: does not use caffeine: Yes Type: coffee Number of servings: 2 seatbelt use: never ROS ROS ED Constitutional Constitutional ED: Reports chills, fatigue and fever(s) Eyes Eyes: Denies change in vision or diplopia ENT ENT ED: Denies rhinorrhea or sore throat Cardiovascular Cardiovascular: Denies chest pain or palpitations Respiratory/Chest Respiratory/Chest: Denies cough or dyspnea Gastrointestinal Gastrointestinal: Reports diarrhea, nausea and vomiting; Denies abdominal pain, hematemesis or hematochezia Genitourinary Genitourinary ED: Denies dysuria or hematuria Musculoskeletal Musculoskeletal: Denies back pain or neck pain Integumentary Reports as per HPI and wounds; Denies abscess or rash Neurologic Neurologic: Denies headache(s), paresthesias or weakness Psychiatric Psychiatric: Denies anxiety or suicidal thoughts EXAM Physical Exam Const Vital Signs: 12/12/23 03:11 12/12/23 03:15 12/12/23 03:17 Temperature 103.3 F H 103.3 F H Temperature Source Oral Oral Pulse Rate 101 H 100 Respiratory Rate 27 H 25 H Respiratory Effort Normal Respiratory Pattern Tachypnea Blood Pressure 99/53 L 96/42 L Blood Pressure Mean 68 60 Pulse Ox 94 94 Oxygen Delivery Method Room Air Room Air 12/12/23 03:21 12/12/23 04:11 12/12/23 05:00 Temperature 98.7 F Temperature Source Oral Pulse Rate 93 83 Respiratory Rate 18 25 H Respiratory Effort Respiratory Pattern Blood Pressure 105/56 L 93/55 L Blood Pressure Mean 72 67 Pulse Ox 94 93 Oxygen Delivery Method Room Air Room Air Room Air 12/12/23 05:08 Temperature 98.7 F Temperature Source Pulse Rate 83 Respiratory Rate 26 H Respiratory Effort Respiratory Pattern Blood Pressure 93/55 L Blood Pressure Mean 67 Pulse Ox 92 Oxygen Delivery Method Positive well nourished and well developed Constitutional Narrative: Ill-appearing, NAD General Appearance ED: well developed and NAD HEENT Reports moist mucous membranes normocephalic and atraumatic Eyes PERRL and EOMs intact bilaterally Neck full ROM and supple Chest Wall Chest Narrative: 2 small wound about 1 cm in diameter or less, #1 is at the top of the sternotomy #2 is at the bottom of the sternotomy, both with small amount of packing within them and a bandage over top, there is no active discharge, there is no surrounding cellulitis, the tissue within the wounds appears healthy and well-perfused without any signs of necrosis. Nontender. Resp normal respiratory effort and clear to auscultation bilaterally Cardio regular rate and regular rhythm Cardio Narrative: Systolic clicking GI non-tender and non-distended Auscultation: normoactive bowel sounds Palpation: soft Back/Spine no CVA tenderness General Back: other FROM Extremity normal to inspection General Extremety ED: Negative for edema, pulses abnormal or tenderness General Extremity: Negative for edema or pulses abnormal Neuro oriented x3, CN's II-XII intact bilaterally and no sensory deficits noted Sensorium / Orientation: awake and alert Motor Exam: general weakness Psych mental status grossly normal and thought process normal Skin no rashes or lesions noted Skin Narrative: 2 small sternotomy wounds see above no other wounds MDM MDM MDM Narrative Medical decision making narrative: Labs are noted, she had subtherapeutic INR but now it is 3.0 after increasing the dose of warfarin, she has a slightly elevated lactic acid, prerenal azotemia, low bicarb, and sodium concerning at 122. Also concerning his elevated liver enzymes of unknown etiology her total bilirubin is within normal limits. She is not having right upper quadrant tenderness to suggest cholangitis. Her white blood count is 3.1, although there is a predilection for neutrophils of unknown significance. Given that she had a fever of 103.3 and her pressure 96/42, she was given IV fluid bolus before knowing her sodium was 122. I am adding on a CT of the abdomen/pelvis to rule out a liver abscess or other acute process to explain her liver enzymes and fever and vomiting/diarrhea. Sent a Hemoccult, there is no rectal tenderness or bright red blood per rectum and Hemoccult is positive. Pantoprazole 80 mg ordered. After the first liter pressures reading 88 systolic, another liter bolus ordered. I did a bedside ultrasound after reviewing the CT images and interpreting the upper abdomen as essentially normal with regards to most of the liver. Official gallbladder ultrasound is not available at the hour the patient is here, so I did it at the bedside and I see no stones or pericholecystic fluid and she has a negative sonographic [place]. Her hemoglobin is similar to prior numbers, and her BUN is slightly elevated, but on par for being a little dehydrated not necessarily an acute upper GI bleed although certainly were not able to rule that out at this time with a positive Hemoccult and black stools. Chest x-ray 1 view on my interpretation shows no evidence of acute pneumonia. CT results basically showing radiographic findings that are consistent with gastroenteritis. I agree with this result. She has been on an antibiotic recently so C. difficile his in the differential. She has not given us a specimen to test yet. History & Record Review Additional record(s) reviewed:: Prior outpatient record (labs 2d ago) Lab Data Attestation: I reviewed the patient's lab results. Labs: Laboratory Results - last 24 hr 12/12/23 12/12/23 12/12/23 03:01 03:15 03:50 WBC 3.1 L RBC 4.22 Hgb 11.4 L Hct 33.6 L MCV 79.6 L MCH 27.0 MCHC 33.9 RDW Std Deviation 40.4 RDW Coeff of [place] 13.9 Plt Count 124 L MPV 10.3 Immature Gran % (Auto) 0.600 Neut % (Auto) 92.7 H Lymph % (Auto) 4.5 L [place] % (Auto) 2.2 Eos % (Auto) 0.0 Baso % (Auto) 0.0 Absolute Neuts (auto) 2.9 Absolute Lymphs (auto) 0.14 L Nucleated RBC % 0 PT 30.7 H INR 3.0 APTT 68.6 H Sodium 122 L Potassium 4.4 Chloride 91 L Carbon Dioxide 19.0 L Anion Gap 12 BUN 22 H Creatinine 1.15 H Estim Creat Clear Calc 55.98 Est GFR (MDRD) Af Amer 64 Est GFR (MDRD) Non-Af 53 L BUN/Creatinine Ratio 19.1 Glucose 140 H Lactic Acid 2.4 H* Calcium 8.2 L Total Bilirubin 0.60 AST 694 H ALT 283 H Alkaline Phosphatase 180 H Total Protein 6.6 Albumin 3.1 L Globulin 3.5 Albumin/Globulin Ratio 0.9 Lipase 110 H Urine Color Yellow Urine Clarity Clear Urine pH 6.0 Ur Specific [place] 1.015 Urine Protein 100 H Urine Glucose (UA) Normal Urine Ketones Negative Urine Occult Blood 25 H Urine Nitrite Negative Urine Bilirubin Negative Urine Urobilinogen Normal Ur Leukocyte Esterase Negative Urine RBC 0 SEEN Urine WBC 0 SEEN Ur Squamous Epith Cells 5-10 SEEN Urine Bacteria 1+ Urine Mucus 0 SEEN Radiography Diagnostic Testing: Clinical Impression(s) from Imaging Studies Chest X-Ray 12/12/23 03:18 IMPRESSION: Lesser degree of inspiration with development of discoid atelectasis within the right lung. Interval median sternotomy and cardiac valve replacement. No pneumonia. Electronically Signed: Jacob Holloway MD at 5:18 EDT , Abdomen/Pelvis CT 12/12/23 03:48 IMPRESSION: Possible tiny noncalcified stones in the gallbladder fundus, and correlation with ultrasound may be of benefit. No findings of acute cholecystitis or biliary ductal dilatation. Mild increase in hepatomegaly. Stable mild splenomegaly. Numerous large and small bowel air-fluid levels suggesting a mild ileus or gastroenteritis. No findings of small bowel obstruction or appendicitis. Electronically Signed: Jacob Holloway MD at 4:55 EDT , Rhythm Strip Rhythm Strip: Sinus Rhythm Rate: 97 Ectopy: None EKG Initial EKG: Attestation: I personally reviewed and interpreted this EKG as follows: Interpretation: Sinus Rhythm, No Acute Injury Pattern, Inverted T-Waves (lat) and Non-Specific ST Changes Prior EKG tracings: available for review (2.5 years ago; similar, but T-wave inv's more prominent now, but just had cardiac surgery 2w ago) Management Discussion w/another healthcare provider: Hospitalist Discharge Plan Dx/Rx/DC Orders Clinical Impression: Acute hyponatremia, Occult GI bleeding, Warfarin-induced coagulopathy, Acute dehydration, Elevated liver enzymes, H/O mechanical aortic valve replacement, Gastroenteritis Disposition Disposition: Acute Care Hospital [facility]
[2023-12-12 03:32] LABS: Absolute Lymphocyte Count 0.14 X10^3/uL (0.83-4.51); Absolute Neutrophil Count 2.9 X10^3/uL (2.0-7.7); Hematocrit 33.6 % (37-47); Hemoglobin 11.4 g/dL (12.0-15.0); Lymphocyte # 0.14 X10^3/ul (0.83-4.51); Lymphocyte % 4.5 % (19-41); Mean Corp Hgb Conc 33.9 g/dL (32-36); Mean Corpuscular Volume 79.6 fL (81-99); Mean Platelet Vol. 10.3 fl (6.2-12.0); Monocyte# 0.07 X10^3/uL; Monocyte% 2.2 % (0-10); NRBC Flagged by Analyzer 0 % (0-5); Neutrophil # 2.89 X10^3/uL (2.7-7.7); Neutrophil % 92.7 % (47-70); POSITIVE DIFFERENTIAL YES; Platelet Count 124 K/mm3 (150-450); RBC Distribution Width CV 13.9 % (11.6-14.6); RBC Distribution Width SD 40.4 fl (35.1-43.9); Red Blood Count 4.22 M/mm3 (4.2-5.4); White Blood Count 3.1 K/mm3 (4.4-11.0)
[2023-12-12] MEDS: Ondansetron 4 MG/2 ML Vial IV ×2 (03:33→08:24)
[2023-12-12] MEDS: 0.9% Normal Saline (1000mL) 1,000 ML 999 ML IV ×3 (03:33→09:00)
[2023-12-12] MEDS: Acetaminophen 500 MG Tablet 1000 MG PO (03:33)
[2023-12-12 03:37] LABS: Prothrombin Time (Protime)PT. 30.7 SECONDS (11.7-14.9)
[2023-12-12 03:39] LABS: Partial Thromboplast Time 68.6 Seconds (24.1-36.2)
[2023-12-12 03:46] LABS: ALB/GLOB Ratio 0.9 RATIO (0.9-2.4); AST(SGOT) 694 U/L (15-37); Alanine Aminotransfer ALT/SGPT 283 U/L (13-56); Albumin, Serum 3.1 g/dL (3.2-5.0); Alkaline Phosphatase 180 U/L (45-117); Anion Gap 12 (5-15); BUN 22 mg/dL (7-18); BUN/Creat Ratio 19.1 RATIO (10-20); Calcium,Total 8.2 mg/dL (8.5-10.1); Chloride 91 mmol/L (98-107); Creatinine, Serum 1.15 mg/dL (0.55-1.02); EST Glomerular Filtration Rate 53 mL/min (>60); Est Glom Filt Rate - Afr Amer 64 mL/min (>60); Estimated Creatinine Clearance 55.98 ml/min; Globulin 3.5 g/dL (2.2-4.2); Glucose 140 mg/dL (74-106); Potassium 4.4 mmol/L (3.5-5.1); Protein, Total 6.6 g/dL (6.4-8.2); Sodium Level 122 mmol/L (136-145)
--- NOTE | 2023-12-12 03:48 | CT_ITS ---
EXAM: CT ABDOMEN AND PELVIS WITH INTRAVENOUS CONTRAST CLINICAL INDICATION: n/v, fever, elevated liver enz TECHNIQUE: Helically acquired images were obtained of the abdomen and pelvis with intravenous contrast. This CT exam was performed using one or more of the following dose reduction techniques: automated exposure control, adjustment of the mA and/or kV according to patient size, and/or use of iterative reconstruction technique. CONTRAST: IV 75mL [id number] RADIATION DOSE: Total DLP: 996.02 mGy-cm. COMPARISON: Abdomen pelvis CT of 10/30/2021. FINDINGS: LOWER THORAX: Previous median sternotomy and cardiac valve replacement. No significant pericardial effusion. Discoid atelectasis or scarring at the right lung base. Right basilar calcified granuloma. No acute basilar pulmonary infiltrates or pleural effusions. ABDOMEN: LIVER: Elongated right hepatic lobe which measures 22 cm in cephalocaudal dimension. Right hepatic lobe measuring 19.8 cm in cephalocaudal dimension on the prior study. Hepatic and portal veins enhance normally. No focal intrahepatic abnormality. GALLBLADDER AND BILE DUCTS: Normal size gallbladder. On coronal image 38 of series 601, 2 punctate noncalcified densities are seen within the dependent portion of the gallbladder fundus, raising the possibility of tiny noncalcified gallstones. No gallbladder wall thickening, pericholecystic stranding or biliary ductal dilatation. PANCREAS: Unremarkable. No focal cystic or solid mass. SPLEEN: Prominent spleen measuring 13.6 cm in cephalocaudal dimension, unchanged. ADRENALS: Unremarkable. No nodules. KIDNEYS AND URETERS: Multiple small simple right renal cysts which require no follow-up. Unremarkable left kidney. No hydronephrosis or obstructing ureteral stone. STOMACH AND BOWEL: No gastric mural thickening, periduodenal inflammatory changes or distended small bowel loops. Numerous large and small bowel air-fluid levels are present. No bowel wall thickening or mesenteric edema. PELVIS: APPENDIX: No evidence of acute appendicitis. BLADDER: The partially distended urinary bladder is unremarkable. REPRODUCTIVE: Status post hysterectomy. No adnexal mass. A surgical clip is again noted within the lower pelvis. ABDOMEN and PELVIS: INTRAPERITONEAL SPACE: Unremarkable. No ascites or other fluid collection. No free air. BONES/JOINTS: Lower thoracic degenerative spurring. Lumbar facet arthritis. No acute osseous abnormality. No suspicious lytic or blastic abnormality. SOFT TISSUES: No ventral hernia. Rectus and psoas muscles are symmetric. VASCULATURE: Normal caliber abdominal aorta. Retroaortic left renal vein again noted. 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 LYMPH NODES: Normal size lymph nodes are seen in each groin and inguinal region. A slightly enlarged node measuring 11 mm in short axis diameter seen in the right inguinal region, unchanged as compared to the prior scan. Normal sized para-aortic lymph nodes are present. No para-aortic adenopathy. CT/Abdomen/Pelvis W IV Cont ONLY IMPRESSION: Possible tiny noncalcified stones in the gallbladder fundus, and correlation with ultrasound may be of benefit. No findings of acute cholecystitis or biliary ductal dilatation. Mild increase in hepatomegaly. Stable mild splenomegaly. Numerous large and small bowel air-fluid levels suggesting a mild ileus or gastroenteritis. No findings of small bowel obstruction or appendicitis. Electronically Signed: Jacob Holloway MD at 4:55 EDT ,
[2023-12-12 03:50] LABS: Lactic Acid 2.4 mmol/L (0.4-1.9)
[2023-12-12 04:02] LABS: Mucous, Urine 0 SEEN /hpf (<or=2+); Red Blood Cells-Urine 0 SEEN /hpf (0-5); White Blood Cells 0 SEEN /hpf (0-5)
[2023-12-12 04:11] LABS: Lipase 110 U/L (13-75)
[2023-12-12 04:19] LABS: Color, Urine Yellow (Yellow); Glucose, Dipstick Normal (Normal); Ketone-Dipstick Negative (Negative); Leukocyte Esterase-Dipstick Negative /ul (Negative); Nitrite-Dipstick Negative (Negative); Occult Blood-Urine 25 /ul (Negative); Protein-Dipstick 100 mg/dl (Negative); Specific Gravity, Urine 1.015 (1.002-1.030); Urine Bilirubin Dipstick Negative (Negative); Urine Clarity Clear (Clear); Urine Urobilinogen Normal (Normal)
[2023-12-12 04:44] LABS: Bacteria 1+ /hpf (None Seen); Squamous Epithelial Cells - UA 5-10 SEEN /hpf (5-10)
[2023-12-12] MEDS: Pantoprazole Sodium 80 MG in 0.9% Normal Saline (50mL Bag) 15 ML 420 MG IV BOLUS (05:05)
--- NOTE | 2023-12-12 05:12 | PCM.HP.STD ---
HPI - General General Date of Admission: 12/12/23 Date of Service: 12/12/23 Chief Complaint: N/V/D, dark black watery stools. HPI Narrative The patient is a 48 y/o F w/ PMHx: Chronic thrombocytopenia, CKD stage II per GFR trending, Former tobacco use, Nonobstructive CAD, Adult celiac disease, Hx CVA/TIA 1997 during her with no residual deficits, Oesity, HTN, HLD, Seizure disorder treated with Keppra, SLE treated with Imuran recently held x 4 weeks postoperatively from her recent valve surgery, CellCept and Plaquenil, Chronic anemia/Fe deficiency anemia, recent discharge 11/11/23 from [facility] following elective aortic valve replacement 11/05/23 with upper J Hemisternotomy with mechanical AVR and aortoplasty secondary to worsening aortic insufficiency and aortic stenosis with bicuspid aortic valve and aortic aneurysm complicated by postoperative PAF requiring several medications including initiated on amiodarone, metoprolol as well as new oral anticoagulant therapy with Coumadin who presents to the [facility] ED on 12/12/23 with history of nausea, emesis and black watery diarrhea for the last 1 to 2 days with inability to keep anything down with no associated abdominal pain and fever up to 103 at home recently finishing antibiotic therapies with no recent upper respiratory type symptoms and given ongoing issue prompted ED evaluation to be cautious. Workup in the ED included T103.3, heart rate 101, BP 99/53, respiratory rate 27, 94% on room air however upon ED evaluation blood pressure psych in the room with SBP 87 despite 2 L IV fluids, CBC with WBC 3.1, 11.4, MCV 79.6, platelet 124 with lymphopenia, coags with INR 3.0, PT 30.7, PTT 68.6, CMP with sodium 122, chloride 91, carbon oxide 19, anion gap 12, BUN/creatinine 22/1.15, GFR 53, glucose 140, hepatic profile with T. bili 0.60, AST/LT 694/ALT 283, alk phos 180, lactic acid 2.4, stool guaiac positive, EKG with sinus rhythm with inverted T waves and nonspecific ST changes with no acute evidence of ischemia but different from previous comparison but patient did not have a recent cardiac surgery, chest x-ray on preliminary review with no acute cardiopulmonary findings but final radiology read pending, CT abdomen and pelvis with possible tiny noncalcified stones in the gallbladder fundus and correlation with ultrasound may be of benefit, no findings of acute cholecystitis or bili area ductal dilatation, urine culture pending per ED, blood culture pending per ED. In the ED patient ministered 1 L normal saline, Tylenol 1000 mg p.o. x 1, Zofran 4 mg IV x 1. In the ED patient ministered 2 L normal saline, Tylenol 1000 mg p.o. x 1, Zofran 4 mg IV x 1, pantoprazole 80 mg IV daily bolus. Discussed patient with ED physician and given ongoing hypotension despite 2 L will administer an additional 500 cc to equate to a 30 cc/kg IV fluid bolus. [facility] Medical History CKD (chronic kidney disease), stage II Adult celiac disease PAF (paroxysmal atrial fibrillation) CAD (coronary artery disease) Obesity Former tobacco use History of CVA (cerebrovascular accident) Iron deficiency anemia Lupus anticoagulant positive SLE (systemic lupus erythematosus) Seizures Carpal tunnel syndrome Arthritis Nonrheumatic aortic (valve) stenosis Essential hypertension Nonrheumatic aortic (valve) insufficiency Seizure disorder Female stress incontinence History of endocarditis Home Medications ?Medication ?Instructions ?Recorded ?Last Taken ?Type aspirin 81 mg chewable tablet 81 mg PO DAILY@0800 07/20/13 09/27/23 History hydroxychloroquine 200 mg tablet 1 tab PO BID 07/20/13 Unknown History ergocalciferol (vitamin D2) 1,250 50,000 unit PO DAILY 02/14/19 09/27/23 History mcg (50,000 unit) capsule mycophenolate mofetil 500 mg tablet 250 mg PO ONCE 05/14/21 09/27/23 History ferrous fumarate 324 mg (106 mg See Rx Instructions .Route 03/30/22 Unknown Rx iron) tablet (Ferrocite) .COMPLEX #60 tabs rosuvastatin 10 mg tablet 10 mg PO DAILY 06/03/22 Unknown History levetiracetam 1,000 mg tablet 1,000 mg PO BID #180 tabs 06/23/23 Unknown Rx acetaminophen 325 mg tablet 650 mg PO Q6H PRN PRN mild pain 12/12/23 Unknown History amiodarone 200 mg tablet mg PO 12/12/23 Unknown History metoprolol succinate 100 mg PO 12/12/23 Unknown History tablet,extended release 24 hr oxycodone 5 mg tablet 5 mg PO Q6H PRN PRN pain 12/12/23 Unknown History warfarin 4 mg tablet 4 mg PO DAILY 12/12/23 Unknown History Allergy/AdvReac Type Severity Reaction Status Date / Time ketorolac tromethamine (From Allergy Severe Shortness Verified 12/12/23 03:11 Toradol) of breath Family History Grandmother CVA (cerebral vascular accident) Uterine cancer Uncle Heart disease Myocardial infarction CAD (coronary artery disease) Hypertension Mother Diabetes Father No problems noted. Surgical History S/P hysterectomy H/O mechanical aortic valve replacement (11/05/23) History of tonsillectomy Social History household members: spouse Smoking Status: Former smoker how long ago did patient quit smoking: Smoked ~ 1 ppd x 5 years, quit 05/28/2008 second hand exposure: No alcohol intake: current alcohol intake frequency: holidays/special occasions only substance use type: does not use caffeine: Yes Type: coffee Number of servings: 2 seatbelt use: never ROS ROS Narrative Admission Review of Systems: CONSTITUTIONAL: No weight loss, + fever, chills, weakness or fatigue. HEENT: Eyes: No visual loss, blurred vision, double vision or yellow sclerae. Ears, Nose, Throat: No hearing loss, sneezing, congestion, runny nose or sore throat. SKIN: No rash or itching, lesions except + 2 small posterior anatomy wounds well-appearing, no drainage. CARDIOVASCULAR: + Expected post-sternotomy chest discomfort. No palpitations, edema, orthopnea, syncopal events. RESPIRATORY: No shortness of breath, cough or sputum, wheezing, hemoptysis. GASTROINTESTINAL: + Nausea, emesis, diarrhea, anorexia, dark black watery stools. No abdominal pain, BRBPR. GENITOURINARY: No dysuria, frequency, urgency or retention. NEUROLOGICAL: No headache, dizziness, syncope, paralysis, ataxia, numbness or tingling in the extremities, focal weakness, change in bowel or bladder control, seizure. MUSCULOSKELETAL: + muscle, back pain, joint pain or stiffness. HEMATOLOGIC: + Chronic anemia, active bleeding with dark black stools. LYMPHATICS: No enlarged nodes. No history of splenectomy. PSYCHIATRIC: No history of depression or anxiety. ENDOCRINOLOGIC: No reports of sweating, cold or heat intolerance. No polyuria or polydipsia. ALLERGIES: No history of asthma, hives, eczema or rhinitis. Vital Signs Vital Signs Vital Signs: 12/12/23 03:11 12/12/23 03:15 12/12/23 03:17 Temperature 103.3 F H 103.3 F H Temperature Source Oral Oral Pulse Rate 101 H 100 Respiratory Rate 27 H 25 H Respiratory Effort Normal Respiratory Pattern Tachypnea Blood Pressure 99/53 L 96/42 L Blood Pressure Mean 68 60 Pulse Ox 94 94 Oxygen Delivery Method Room Air Room Air 12/12/23 03:21 12/12/23 04:11 12/12/23 05:00 Temperature 98.7 F Temperature Source Oral Pulse Rate 93 83 Respiratory Rate 18 25 H Respiratory Effort Respiratory Pattern Blood Pressure 105/56 L 93/55 L Blood Pressure Mean 72 67 Pulse Ox 94 93 Oxygen Delivery Method Room Air Room Air Room Air 12/12/23 05:08 Temperature 98.7 F Temperature Source Pulse Rate 83 Respiratory Rate 26 H Respiratory Effort Respiratory Pattern Blood Pressure 93/55 L Blood Pressure Mean 67 Pulse Ox 92 Oxygen Delivery Method Weight Weight: 172 lb 3.2 oz Body Mass Index (BMI) 32.5 Physical Exam Narrative Physical Examination: General: Awake, alert, oriented x 3 and cooperative, laying in the ED bed, fatigued and ill-appearing, flushed. Skin:/Color, normal turgor, no icterus, no cyanosis, 2 midline sternotomy wounds, small, no marked periwound erythema or drainage, well-appearing. HEENT: AT/NC, EOMI, PERRLA, dry MM, no carotid bruits or JVD noted. Lungs: Diminished, greater bases, proper effort, no rales, ronchi or wheezing. Heart: Regular rate and rhythm; no gallop, rub audible, audible click from mechanical valve. Abdomen: Soft, obese, NTTP, does not appear distended, hyperactive BS, no appreciated HSM. Extremities: No cyanosis, clubbing, or edema. Neurological: Patient awake, alert, oriented as noted cognitive function intact; pupils equally reactive to light and accommodation, cranial nerves gross normal, moving all 4 extremities, no focal deficits, strength moderately to severely globally decreased secondary to acute presentation Psychiatric: Affect appears flat, fatigued, ill-appearing, no acute evidence of depressive or anxiety feelings. Results Lab / Micro Data 12/12/23 03:15 12/12/23 03:01 Labs: Laboratory Results - last 24 hr 12/12/23 03:01: PT 30.7 H, INR 3.0, APTT 68.6 H, Sodium 122 L, Potassium 4.4, Chloride 91 L, Carbon Dioxide 19.0 L, Anion Gap 12, BUN 22 H, Creatinine 1.15 H, Estim Creat Clear Calc 55.98, Est GFR (MDRD) Af Amer 64, Est GFR (MDRD) Non-Af 53 L, BUN/Creatinine Ratio 19.1, Glucose 140 H, Lactic Acid 2.4 H*, Calcium 8.2 L, Total Bilirubin 0.60, AST 694 H, ALT 283 H, Alkaline Phosphatase 180 H, Total Protein 6.6, Albumin 3.1 L, Globulin 3.5, Albumin/Globulin Ratio 0.9, Lipase 110 H 12/12/23 03:15: WBC 3.1 L, RBC 4.22, Hgb 11.4 L, Hct 33.6 L, MCV 79.6 L, MCH 27.0, MCHC 33.9, RDW Std Deviation 40.4, RDW Coeff of Giselle 13.9, Plt Count 124 L, MPV 10.3, Immature Gran % (Auto) 0.600, Neut % (Auto) 92.7 H, Lymph % (Auto) 4.5 L, [place] % (Auto) 2.2, Eos % (Auto) 0.0, Baso % (Auto) 0.0, Absolute Neuts (auto) 2.9, Absolute Lymphs (auto) 0.14 L, Nucleated RBC % 0 12/12/23 03:50: Urine Color Yellow, Urine Clarity Clear, Urine pH 6.0, Ur Specific [place] 1.015, Urine Protein 100 H, Urine Glucose (UA) Normal, Urine Ketones Negative, Urine Occult Blood 25 H, Urine Nitrite Negative, Urine Bilirubin Negative, Urine Urobilinogen Normal, Ur Leukocyte Esterase Negative, Urine RBC 0 SEEN, Urine WBC 0 SEEN, Ur Squamous Epith Cells 5-10 SEEN, Urine Bacteria 1+, Urine Mucus 0 SEEN Micro: Microbiology 12/12/23 03:54 Stool Stool Occult Blood (JOSIAS) - Final Occult Blood Positive Rhythm Strip Rhythm Strip: Sinus Rhythm Rate: 97 Ectopy: None Imaging Radiology Impression Abdomen/Pelvis CT 12/12/23 03:48 IMPRESSION: Possible tiny noncalcified stones in the gallbladder fundus, and correlation with ultrasound may be of benefit. No findings of acute cholecystitis or biliary ductal dilatation. Mild increase in hepatomegaly. Stable mild splenomegaly. Numerous large and small bowel air-fluid levels suggesting a mild ileus or gastroenteritis. No findings of small bowel obstruction or appendicitis. Electronically Signed: Jacob Holloway MD at 4:55 EDT , Assessment & Plan Assessment/Plan (1) Nausea vomiting and diarrhea: (2) Occult GI bleeding: (3) Warfarin-induced coagulopathy: PLAN: Plan The patient is a 48 y/o F w/ PMHx: Chronic thrombocytopenia, CKD stage II per GFR trending, Former tobacco use, Nonobstructive CAD, Adult celiac disease, Hx CVA/TIA 1997 during her with no residual deficits, Oesity, HTN, HLD, Seizure disorder treated with Keppra, SLE treated with Imuran recently held x 4 weeks postoperatively from her recent valve surgery, CellCept and Plaquenil, Chronic anemia/Fe deficiency anemia, recent discharge 11/11/23 from [facility] following elective aortic valve replacement 11/05/23 with upper J Hemisternotomy with mechanical AVR and aortoplasty secondary to worsening aortic insufficiency and aortic stenosis with bicuspid aortic valve and aortic aneurysm complicated by postoperative PAF requiring several medications including initiated on amiodarone, metoprolol as well as new oral anticoagulant therapy with Coumadin who presents to the [facility] ED on 12/12/23 with history of nausea, emesis and black watery diarrhea for the last 1 to 2 days with inability to keep anything down with no associated abdominal pain and fever up to 103 at home recently finishing antibiotic therapies with no recent upper respiratory type symptoms and given ongoing issue prompted ED evaluation to be cautious. #1. Acute Sepsis (Febrile, tachycardic, tachypneic, WBC 3.1, lactic acidosis and hypotension with systolic less than 90s) secondary to Acute N/V/D secondary to Acute gastroenteritis with associated ? acute GI bleed versus colonic irritation complicated by warfarin induced coagulopathy with chronic normocytic anemia/iron deficiency anemia: Given blood pressure decreased in the ED concern for underlying possible sepsis, will admit to the ICU to be cautious, will consult correctional supervising cook, Hgb currently stable chronic baseline but given given acute presentation as noted in the setting of mechanical valve, obtain serial H+Hs, obtain T+S w/ cross for PRBC administration if appropriate, maintain on IV PPI continuous drip, obtain COVID PCR, obtain C. difficile and stool enteric pathogen's, antiemetic regimen, NPO pending GI evaluation, temporally holding Coumadin with continuing INR assessments and once appropriate transition to heparin drip given recent setting of aortic mechanical valve placement, GI consulted. Procalcitonin requested. Some concern given recent antibiotic therapy that this could be C. difficile and if that is the case we will immediately start oral vancomycin. Holding off on immediate IV antibiotic therapies given concern for C. difficile as etiology but low threshold to add but will await correctional supervising cook input. #2. Acute transaminitis, suspect related to #1, CT imaging noted cholelithiasis but no evidence of any acute cholecystitis: Admission AST/LT 694/283, alk phos 180, no previous history of significant elevation, CT with possible tiny noncalcified stones in the gallbladder fundus with no findings of any acute cholecystitis or biliary ductal dilatation, continue evaluation treatment as noted, hydrate, repeat CMP in AM. #3. Acute renal insufficiency/elevated creatinine on CKD stage II per GFR trending: Secondary to GI losses and poor intake. Admission BUN/Cr 22/1.15, GFR 53, prior baseline creatinine noted to be 0.8-0.9 primarily and previous GFR more consistent with stage II. Will continue to hydrate and repeat CMP in AM. #4. Acute hyponatremia, suspected secondary to hypovolemia, GI losses: Admission CMP with sodium 122, chloride 91, will continue aggressive hydration and repeat CMP in AM. #5. Hyperglycemia, suspected stress response: Admission glucose 140, likely stress response, recent evaluation at [facility] with notes reporting on discharge similar presentation and A1c not consistent with any diabetes thus will defer repeating at this time but continue to monitor. #6. Thrombocytopenia, acute on chronic, possibly reactive: Given presentation #1 suspect reactive, admission CBC with platelet 124, primarily normal range recently from review of records but has intermittently been lower range and more remotely in [id number] was significantly lower, continue to trend CBC. #7. Valvular heart disease status post recent AVR mechanical with sternotomy wounds: Noted history previously of endocarditis, possibly lupus but unclear. Patient with history of bicuspid aortic valve with aortic insufficiency and stenosis as well as aortic aneurysm status post recent 11/05/23 [facility] upper J Hemisternotomy with mechanical AVR and aortoplasty, continue local sternotomy wound care with packing and antibiotic ointment with noted follow-up at the wound care center pending, wound RN consulted, encourage continued outpatient follow-up with cardiology and cardiothoracic surgery as previously arranged. Holding coumadin given GI bleed concerns, once appropriate INR transition to heparin drip given acute presentation as noted in the setting of mechanical valve. #8. PAF: Noted postoperatively following recent valve surgery, continue amiodarone, metoprolol as BP allows, once appropriate INR transition to heparin drip given acute presentation as noted. #9. Chronic normocytic anemia/iron deficiency anemia: Admission hemoglobin 11.4, MCV 79.6, baseline primarily 11-12, will continue to trend CBC, continue iron supplementation. #10. Hypertension: Continue metoprolol as BP allows, hold Lasix given significant GI losses with readdition once appropriate. #11. Hyperlipidemia: Given transaminitis will temporally hold statin therapy. #12. History CVA/TIA: Noted during a in 1997 with no residual deficits, holding aspirin, once appropriate INR transition to heparin drip given acute presentation as noted, temporally holding statin therapy given transaminitis, continue hypertensive regimen as BP allows with adjustment as noted. #13. Seizure disorder: We will continue patient home Keppra regimen. #14. SLE, antiphospholipid antibody syndrome: Outpatient on CellCept, Plaquenil and Imuran. patient recently resumed on her imuran as it was held for 4 weeks following recent operative intervention. Given her current presentation #1 will hold patient mycophenolate and Imuran therapy. #15. Nonobstructive CAD: Holding aspirin and will hold Coumadin, once appropriate INR transition to heparin drip given acute presentation as noted, temporally holding statin therapy given transaminitis, metoprolol, not on BOUCHRA number/ARB. #16. Former tobacco use: Encourage continued tobacco cessation. #17. Obesity: Weight loss and lifestyle changes encouraged. #18. Adult celiac disease: Noted mildly positive tTG on 02/03/2023, will assure gluten free oral intake. #19. DVT prophylaxis: Holding Coumadin, once appropriate INR transition to heparin drip given acute presentation as noted in the setting of mechanical valve. #20. CODE status: Patient HCPOA and living will and not in place but her who is present would be her medical decision-maker if necessary. Discussed CODE status at length including difference between FULL code, DNR-CCA and DNR-CC status. Following discussions about the differences in these status, requested Full Code status. Advanced Care Planning Face to Face Time: 16 minutes. Charges/Coding Visit Charges Inpatient E&M: 78932 Init Hosp L3 Procedures Hospitalists Procedures: 23256 Advncd Care Plan 30 Min
[2023-12-12] MEDS: 0.9% Normal Saline (500mL Bag) 500 ML 999 ML IV (06:06)
--- NOTE | 2023-12-12 06:18 | ED.RN ---
Report called to Patricia SCRIPT DEVELOPER, questions/concerns answered
[2023-12-12] MEDS: 0.9% Normal Saline (1000mL) 1,000 ML 125 ML IV (06:53)
[2023-12-12 07:27] LABS: Reflex Lactate? Y
[2023-12-12] MEDS: Pantoprazole Sodium 80 MG in 0.9% Normal Saline (100mL Bag) 80 ML 10 MG CONT INF (08:11)
[2023-12-12] MEDS: Amiodarone 200 MG Tablet PO (08:12)
[2023-12-12] MEDS: levETIRAcetam 1,000 MG Tablet 1000 MG PO ×2 (08:12→20:05)
[2023-12-12] MEDS: Hydroxychloroquine 200 MG Tablet PO ×2 (08:12→20:05)
[2023-12-12 08:17] LABS: Urine Sodium 37 mmol/L (Not Establ.)
[2023-12-12] MEDS: Ferrous Sulfate 325 MG Tablet PO (08:23)
[2023-12-12] MEDS: oxyCODONE 5 MG Tablet PO (08:24)
[2023-12-12] MEDS: Metoprolol(XL)Succ 25 MG Tablet PO (08:24)
[2023-12-12 08:28] LABS: Osmolality, Urine 608 mOsm/KG
[2023-12-12 08:40] LABS: Magnesium 1.4 mg/dL (1.6-2.6)
--- NOTE | 2023-12-12 10:17 | CON.PCM.GI_ITS ---
HPI Consult Data Date of Consult: 12/12/23 HPI Narrative Reason for Consultation: Nausea vomiting and diarrhea HPI Narrative: JAKY WORTHY, is a 48 F who presented with nausea, vomiting, and black watery diarrhea for the past 1 or 2 days to the point where she cannot keep anything down. She denied any abdominal pain. She did admit to fever up to 103 at home. She recently had a [place] aortic valve replacement about 2 weeks ago for which she is on warfarin, and developed some wounds at the sternotomy that opened. She was put on antibiotics to take care of any residual infection there, and she has been doing packing along with her helping at home, and is slated to follow-up at wound care. She is just finishing up with the antibiotics that were prescribed for the wounds about a week ago. She had no fevers until the vomiting and diarrhea started. She has a complicated past medical history of ITP, celiac disease, Hx CVA/TIA 1997 during her with no residual deficits, Seizure disorder treated with Keppra, SLE treated with Imuran recently held x 4 weeks postoperatively from her recent valve surgery, CellCept and Plaquenil. She was recently discharge 11/11/23 from [facility] following elective aortic valve replacement 11/05/23 with upper J Hemisternotomy with mechanical AVR and aortoplasty secondary to worsening aortic insufficiency and aortic stenosis with bicuspid aortic valve and aortic aneurysm complicated by postoperative PAF. She started developing nausea, emesis and black watery diarrhea for the last 1 to 2 days with inability to keep anything down with no associated abdominal pain and fever up to 103 at home recently finishing antibiotic therapies. T103.3, heart rate 101, BP 80/53, respiratory rate 27, 94% on room air. CBC with WBC 3.1, 11.4, MCV 79.6, platelet 124 with lymphopenia, coags with INR 3.0, PT 30.7, PTT 68.6, CMP with sodium 122, chloride 91, carbon oxide 19, anion gap 12, BUN/creatinine 22/1.15, GFR 53, glucose 140, hepatic profile with T. bili 0.60, AST/LT 694/ALT 283, alk phos 180, lactic acid 2.4, stool guaiac positive, EKG with sinus rhythm with inverted T waves and nonspecific ST changes with no acute evidence of ischemia but different from previous comparison but patient did not have a recent cardiac surgery chest x-ray on preliminary review with no acute cardiopulmonary findings. CT abdomen and pelvis with possible tiny noncalcified stones in the gallbladder fundus and correlation with ultrasound may be of benefit, no findings of acute cholecystitis or bili area ductal dilatation urine culture pending per ED, blood culture pending per ED. In the ED patient ministered 2 L normal saline, Tylenol 1000 mg p.o. x 1, Zofran 4 mg IV x 1, pantoprazole 80 mg IV daily bolus. Given ongoing hypotension despite 2 L will administer an additional 500 cc to equate to a 30 cc/kg IV fluid bolus. [facility] Medical History CKD (chronic kidney disease), stage II Adult celiac disease PAF (paroxysmal atrial fibrillation) CAD (coronary artery disease) Obesity Former tobacco use History of CVA (cerebrovascular accident) Iron deficiency anemia Lupus anticoagulant positive SLE (systemic lupus erythematosus) Seizures Carpal tunnel syndrome Arthritis Nonrheumatic aortic (valve) stenosis Essential hypertension Nonrheumatic aortic (valve) insufficiency Seizure disorder Female stress incontinence History of endocarditis Home Medications ?Medication ?Instructions ?Recorded ?Last Taken ?Type aspirin 81 mg chewable tablet 81 mg PO DAILY@0800 07/20/13 09/27/23 History hydroxychloroquine 200 mg tablet 1 tab PO BID 07/20/13 Unknown History ergocalciferol (vitamin D2) 1,250 50,000 unit PO DAILY 02/14/19 09/27/23 History mcg (50,000 unit) capsule mycophenolate mofetil 500 mg tablet 250 mg PO ONCE 05/14/21 09/27/23 History ferrous fumarate 324 mg (106 mg See Rx Instructions .Route 03/30/22 Unknown Rx iron) tablet (Ferrocite) .COMPLEX #60 tabs rosuvastatin 10 mg tablet 10 mg PO DAILY 06/03/22 Unknown History levetiracetam 1,000 mg tablet 1,000 mg PO BID #180 tabs 06/23/23 Unknown Rx acetaminophen 325 mg tablet 650 mg PO Q6H PRN PRN mild pain 12/12/23 Unknown History amiodarone 200 mg tablet mg PO 12/12/23 Unknown History metoprolol succinate 100 mg PO 12/12/23 Unknown History tablet,extended release 24 hr oxycodone 5 mg tablet 5 mg PO Q6H PRN PRN pain 12/12/23 Unknown History warfarin 4 mg tablet 4 mg PO DAILY 12/12/23 Unknown History Allergy/AdvReac Type Severity Reaction Status Date / Time ketorolac tromethamine (From Allergy Severe Shortness Verified 12/12/23 03:11 Toradol) of breath Family History Grandmother CVA (cerebral vascular accident) Uterine cancer Uncle Heart disease Myocardial infarction CAD (coronary artery disease) Hypertension Mother Diabetes Father No problems noted. Surgical History S/P hysterectomy H/O mechanical aortic valve replacement (11/05/23) History of tonsillectomy Social History household members: spouse Smoking Status: Former smoker how long ago did patient quit smoking: Smoked ~ 1 ppd x 5 years, quit 05/28/2008 second hand exposure: No alcohol intake: current alcohol intake frequency: holidays/special occasions only substance use type: does not use caffeine: Yes Type: coffee Number of servings: 2 seatbelt use: never ROS ROS Narrative Admission Review of Systems: CONSTITUTIONAL: No weight loss, + fever, chills, weakness or fatigue. HEENT: Eyes: No visual loss, blurred vision, double vision or yellow sclerae. Ears, Nose, Throat: No hearing loss, sneezing, congestion, runny nose or sore throat. SKIN: No rash or itching, lesions except + 2 small posterior anatomy wounds well-appearing, no drainage. CARDIOVASCULAR: + Expected post-sternotomy chest discomfort. No palpitations, edema, orthopnea, syncopal events. RESPIRATORY: No shortness of breath, cough or sputum, wheezing, hemoptysis. GASTROINTESTINAL: + Nausea, emesis, diarrhea, anorexia, dark black watery stools. No abdominal pain, BRBPR. GENITOURINARY: No dysuria, frequency, urgency or retention. NEUROLOGICAL: No headache, dizziness, syncope, paralysis, ataxia, numbness or tingling in the extremities, focal weakness, change in bowel or bladder control, seizure. MUSCULOSKELETAL: + muscle, back pain, joint pain or stiffness. HEMATOLOGIC: + Chronic anemia, active bleeding with dark black stools. LYMPHATICS: No enlarged nodes. No history of splenectomy. PSYCHIATRIC: No history of depression or anxiety. ENDOCRINOLOGIC: No reports of sweating, cold or heat intolerance. No polyuria or polydipsia. ALLERGIES: No history of asthma, hives, eczema or rhinitis. Physical Exam Narrative Physical Examination: General: Awake, alert, oriented x 3 and cooperative, laying in the ED bed, fatigued and ill-appearing, flushed. Skin:/Color, normal turgor, no icterus, no cyanosis, 2 midline sternotomy wounds, small, no marked periwound erythema or drainage, well-appearing. HEENT: AT/NC, EOMI, PERRLA, dry MM, no carotid bruits or JVD noted. Lungs: Diminished, greater bases, proper effort, no rales, ronchi or wheezing. Heart: Regular rate and rhythm; no gallop, rub audible, audible click from mechanical valve. Abdomen: Soft, obese, NTTP, does not appear distended, hyperactive BS, no appreciated HSM. Extremities: No cyanosis, clubbing, or edema. Neurological: Patient awake, alert, oriented as noted cognitive function intact; pupils equally reactive to light and accommodation, cranial nerves gross normal, moving all 4 extremities, no focal deficits, strength moderately to severely globally decreased secondary to acute presentation Psychiatric: Affect appears flat, fatigued, ill-appearing, no acute evidence of depressive or anxiety feelings. Lab / Micro Data 12/12/23 03:15 12/12/23 03:01 Labs: Laboratory Results - last 24 hr 12/12/23 03:01: PT 30.7 H, INR 3.0, APTT 68.6 H, Sodium 122 L, Potassium 4.4, C hloride 91 L, Carbon Dioxide 19.0 L, Anion Gap 12, BUN 22 H, Creatinine 1.15 H, Estim Creat Clear Calc 55.98, Est GFR (MDRD) Af Amer 64, Est GFR (MDRD) Non-Af 53 L, BUN/Creatinine Ratio 19.1, Glucose 140 H, Lactic Acid 2.4 H*, Calcium 8.2 L, Magnesium 1.4 L, Total Bilirubin 0.60, AST 694 H, ALT 283 H, Alkaline Phosphatase 180 H, Total Protein 6.6, Albumin 3.1 L, Globulin 3.5, Albumin/Globulin Ratio 0.9, Lipase 110 H 12/12/23 03:15: WBC 3.1 L, RBC 4.22, Hgb 11.4 L, Hct 33.6 L, MCV 79.6 L, MCH 27.0, MCHC 33.9, RDW Std Deviation 40.4, RDW Coeff of Giselle 13.9, Plt Count 124 L, MPV 10.3, Immature Gran % (Auto) 0.600, Neut % (Auto) 92.7 H, Lymph % (Auto) 4.5 L, [place] % (Auto) 2.2, Eos % (Auto) 0.0, Baso % (Auto) 0.0, Absolute Neuts (auto) 2.9, Absolute Lymphs (auto) 0.14 L, Nucleated RBC % 0 12/12/23 03:50: Urine Color Yellow, Urine Clarity Clear, Urine pH 6.0, Ur Specific [place] 1.015, Urine Protein 100 H, Urine Glucose (UA) Normal, Urine Ketones Negative, Urine Occult Blood 25 H, Urine Nitrite Negative, Urine Bilirubin Negative, Urine Urobilinogen Normal, Ur Leukocyte Esterase Negative, Urine RBC 0 SEEN, Urine WBC 0 SEEN, Ur Squamous Epith Cells 5-10 SEEN, Urine Bacteria 1+, Urine Mucus 0 SEEN 12/12/23 03:54: Urine Osmolality 608, Ur Random Sodium 37 Micro: Microbiology 12/12/23 03:54 Stool Stool Occult Blood (JOSIAS) - Final Occult Blood Positive Rhythm Strip Rhythm Strip: Sinus Rhythm Rate: 97 Ectopy: None Imaging Radiology Impression Chest X-Ray 12/12/23 03:18 IMPRESSION: Lesser degree of inspiration with development of discoid atelectasis within the right lung. Interval median sternotomy and cardiac valve replacement. No pneumonia. Electronically Signed: Jacob Holloway MD at 5:18 EDT , Abdomen/Pelvis CT 12/12/23 03:48 IMPRESSION: Possible tiny noncalcified stones in the gallbladder fundus, and correlation with ultrasound may be of benefit. No findings of acute cholecystitis or biliary ductal dilatation. Mild increase in hepatomegaly. Stable mild splenomegaly. Numerous large and small bowel air-fluid levels suggesting a mild ileus or gastroenteritis. No findings of small bowel obstruction or appendicitis. Electronically Signed: Jacob Holloway MD at 4:55 EDT , Assessment & Plan Assessment/Plan (1) Nausea vomiting and diarrhea: (2) Occult GI bleeding: (3) Warfarin-induced coagulopathy: PLAN: Plan The patient is a 48 y/o woman with a very complicated past medical history of ITP, history of TIA and recent diagnosis of lupus systemic erythematosus on hydroxychloroquine, mycophenolate Mycophenolate Mofetil and azathioprine. Along with a have a diagnosis of a seizure disorder who recently was discharged 11/11/23 from [facility] following elective aortic valve replacement 11/05/23 with upper J Hemisternotomy with mechanical AVR and aortoplasty. She currently has signs of SIRS and possibly sepsis with hypotension, leukopenia, thrombocytopenia, mild anemia and fevers status post open heart surgery with valve replacement. Biochemical workup also shows transaminitis with cholestatic hepatitis without jaundice. Imaging shows hepatosplenomegaly which was not apparent on her previous images even though she had previous episodes of for cytopenia possibly secondary to diagnosis of lupus. SIRS or sepsis possibly secondary to recent antibiotic usage, endocarditis, bacterial viral gastroenteritis in the setting of immunosuppression. Because she is on anticoagulation she cannot be tested for DIC. Hepatosplenomegaly and thrombocytopenia can occur after open heart surgery. Thrombocytopenia is more prominent expressly asked her cardiopulmonary bypass resulting in blood destruction, involution and platelet consumption. She is also at risk for HIT or drug-induced ITP being that the medicines that she is on. We are awaiting stool samples. In the interim I think she should be started on prophylactic vancomycin and Zosyn which I will start she did have 1 set of blood cultures. She did not have to return to this shortage. I believe that her transaminitis will likely get worse to hypotension and have a bilirubin will go up. I think this is likely secondary to ischemic hepatitis but he should check her for acute viral hepatitis including A, B, C, EBV and CMV due to her immunosuppression. Also she is at risk for new onset autoimmune hepatitis due to history of lupus which she is to be called lupus hepatitis so she should be checked for ANCA antibodies, IgG subclasses and anti-smooth muscle antibody and anti-smooth muscle kidney antibodies. No indication to stop anticoagulation or to start on heparin at this time. Consider TTE and YOHANA. I will continue to follow. Charges/Coding Visit Charges Inpatient E&M: 52234 Init Hosp L3
--- NOTE | 2023-12-12 10:29 | PN.HOSP_ITS ---
Hospitalist Note Patient admitted to the ICU earlier this morning for sepsis of unclear origin with 1-2 day history of significant nausea, vomiting and black watery diarrhea. Saw patient at bedside this morning. Patient was moderately fatigued appearing and flushed appearing. However, she was laying back comfortably in bed and in no acute distress. She denied any acute pain or discomfort. She had received about 30 cc per kg of IV fluids when I saw her but still appeared somewhat dry on exam and blood pressure remained borderline, so I opted to give her another liter of fluids. Started her on IV vancomycin and Zosyn for broad coverage for now. Hemoglobin slightly down from baseline at 11.4 earlier this morning; GI will be seeing the patient for concern for GI bleed. She notably has not had any dark or bloody stools since arriving to the ICU. Will follow-up midmorning CBC to ensure hemoglobin does not drop significantly. Will monitor blood p ressure closely and if not improved after another liter, will need to pressors to maintain MAP > 65. Blood cultures and stool studies pending. Full progress note to follow tomorrow.
[2023-12-12 11:16] LABS: Osmolality, Serum 267 mOsm/KG (275-295)
--- NOTE | 2023-12-12 11:22 | PCMCONS.TICU ---
HPI Consult Data Date of Consult: 12/12/23 HPI Narrative HPI Narrative: JAKY WORTHY, is a 48 F who presents [facility] Medical History CKD (chronic kidney disease), stage II Adult celiac disease PAF (paroxysmal atrial fibrillation) CAD (coronary artery disease) Obesity Former tobacco use History of CVA (cerebrovascular accident) Iron deficiency anemia Lupus anticoagulant positive SLE (systemic lupus erythematosus) Seizures Carpal tunnel syndrome Arthritis Nonrheumatic aortic (valve) stenosis Essential hypertension Nonrheumatic aortic (valve) insufficiency Seizure disorder Female stress incontinence History of endocarditis Home Medications ?Medication ?Instructions ?Recorded ?Last Taken ?Type aspirin 81 mg chewable tablet 81 mg PO DAILY@0800 07/20/13 09/27/23 History hydroxychloroquine 200 mg tablet 1 tab PO BID 07/20/13 Unknown History ergocalciferol (vitamin D2) 1,250 50,000 unit PO DAILY 02/14/19 09/27/23 History mcg (50,000 unit) capsule mycophenolate mofetil 500 mg tablet 250 mg PO ONCE 05/14/21 09/27/23 History ferrous fumarate 324 mg (106 mg See Rx Instructions .Route 03/30/22 Unknown Rx iron) tablet (Ferrocite) .COMPLEX #60 tabs rosuvastatin 10 mg tablet 10 mg PO DAILY 06/03/22 Unknown History levetiracetam 1,000 mg tablet 1,000 mg PO BID #180 tabs 06/23/23 Unknown Rx acetaminophen 325 mg tablet 650 mg PO Q6H PRN PRN mild pain 12/12/23 Unknown History amiodarone 200 mg tablet mg PO 12/12/23 Unknown History metoprolol succinate 100 mg PO 12/12/23 Unknown History tablet,extended release 24 hr oxycodone 5 mg tablet 5 mg PO Q6H PRN PRN pain 12/12/23 Unknown History warfarin 4 mg tablet 4 mg PO DAILY 12/12/23 Unknown History Allergy/AdvReac Type Severity Reaction Status Date / Time ketorolac tromethamine (From Allergy Severe Shortness Verified 12/12/23 03:11 Toradol) of breath Family History Grandmother CVA (cerebral vascular accident) Uterine cancer Uncle Heart disease Myocardial infarction CAD (coronary artery disease) Hypertension Mother Diabetes Father No problems noted. Surgical History S/P hysterectomy H/O mechanical aortic valve replacement (11/05/23) History of tonsillectomy Social History household members: spouse Smoking Status: Former smoker how long ago did patient quit smoking: Smoked ~ 1 ppd x 5 years, quit 05/28/2008 second hand exposure: No alcohol intake: current alcohol intake frequency: holidays/special occasions only substance use type: does not use caffeine: Yes Type: coffee Number of servings: 2 seatbelt use: never Objective Data Objective Data Vital Signs: Vital Signs Last response Temperature 36.8 C 12/12/23 07:09 Temperature Source Temporal 12/12/23 07:09 Pulse Rate 80 12/12/23 09:00 Respiratory Rate 28 H 12/12/23 09:00 Respiratory Effort Normal 12/12/23 03:17 Respiratory Pattern Tachypnea 12/12/23 03:17 Blood Pressure 97/50 L 12/12/23 09:00 Blood Pressure Mean 65 12/12/23 09:00 Blood Pressure Source Monitor 12/12/23 09:00 Blood Pressure Position Semi-Fowlers 12/12/23 09:00 Blood Pressure Location Right Arm 12/12/23 09:00 Pulse Ox 95 12/12/23 11:21 Oxygen Delivery Method Room Air 12/12/23 11:21 I&O: I&O Last 24 Hours 12/11/23 12/11/23 12/12/23 11:59 23:59 11:59 Intake Total 3899.17 / 3899.17 Balance 3899.17 / 3899.17 I&O: Total Stay 12/12/23 03:09 thru 12/12/23 10:37 Intake Total 3899.17 Balance 3899.17 Current Meds Ordered / Administered: Current meds ordered / Administered Generic Name Dose Route Start Last Admin Trade Name Freq PRN Reason Stop Dose Admin Acetaminophen 650 mg 12/12/23 06:25 Acetaminophen 325 Mg Tablet PO Q4H PRN PRN Fever, pain 1-10/ Al Hydrox/Mg Hydrox/Simethicone 30 ml 12/12/23 06:25 Mag /Aluminum/Simeth [facility] Udc 30 Ml Oral.Susp PO Q6H PRN PRN Gastric Burning Albuterol Sulfate 2.5 mg 12/12/23 06:25 Albuterol 2.5 Mg/3 Ml Vial.Neb. INHALATION Q2H PRN PRN Dyspnea, wheezing Amiodarone HCl 200 mg 12/12/23 10:00 12/12/23 08:12 Amiodarone 200 Mg Tablet PO 200 mg DAILY KAREN Administration Atorvastatin Calcium 20 mg 12/12/23 22:00 Atorvastatin Calcium 20 Mg Tablet PO QHS KAREN Ferrous Sulfate 325 mg 12/12/23 10:00 12/12/23 08:23 Ferrous Sulfate 325 Mg Tablet PO 325 mg DAILY KAREN Administration Guaifenesin 20 ml 12/12/23 06:25 Guaifenesin 10 Ml Udc (200mg/10ml) PO Q4H PRN PRN COUGH Hydralazine HCl 10 mg 12/12/23 06:25 Hydralazine 20 Mg/Ml Vial IV Q4H PRN PRN SBP > 160 Protocol Hydroxychloroquine Sulfate 200 mg 12/12/23 10:00 12/12/23 08:12 Hydroxychloroquine 200 Mg Tablet PO 200 mg BID KAREN Administration Sodium Chloride 250 mls @ 15 mls/hr 12/12/23 06:57 IV .[id number] PRN Additional IVPB Infusion Sodium Chloride 250 mls @ 15 mls/hr 12/12/23 06:57 IV .[id number] PRN Saline Flush Piperacillin Sod/Tazobactam 50 mls @ 12.5 mls/hr 12/12/23 11:00 Sod 3.375 gm/ Sodium Chloride IV Q8 KAREN Vancomycin IV-PHARMACY TO DOSE 500 mls @ 250 mls/hr 12/12/23 10:12 1 each/ Sodium Chloride IV X1 PRN Rx to Dose Protocol Vancomycin HCl 2,000 mg/ 540 mls @ 250 mls/hr 12/12/23 11:00 Sodium Chloride IV 12/12/23 13:09 X1 ONE Levetiracetam 1,000 mg 12/12/23 10:00 12/12/23 08:12 Levetiracetam 1,000 Mg Tablet PO 1,000 mg BID KAREN Administration Melatonin 3 mg 12/12/23 06:25 Melatonin 3 Mg Tablet PO QHS PRN PRN INSOMNIA Metoprolol Succinate 25 mg 12/12/23 10:00 12/12/23 08:24 Metoprolol(Xl)Succ 25 Mg Tablet PO 25 mg DAILY KAREN Administration Protocol Ondansetron HCl 4 mg 12/12/23 06:25 12/12/23 08:24 Ondansetron 4 Mg/2 Ml Vial IV 4 mg Q8H PRN PRN Administration NAUSEA/VOMITING Oxycodone HCl 5 mg 12/12/23 06:25 12/12/23 08:24 Oxycodone 5 Mg Tablet PO 5 mg Q6H PRN PRN Administration Pain Score 4-10 Prochlorperazine Edisylate 5 mg 12/12/23 06:25 Prochlorperazine 10 Mg/2 Ml Vial IV Q4H PRN PRN Breakthrough Nausea/Vomiting Sodium Chloride 10 - 40 ml 12/12/23 06:57 0.9% Saline Lock 10 Ml Syringe IV UD PRN SALINE FLUSH Lab / Micro Data 12/12/23 17:00 12/12/23 03:01 Labs: Laboratory Results - last 24 hr 12/12/23 03:01: PT 30.7 H, INR 3.0, APTT 68.6 H, Sodium 122 L, Potassium 4.4, Chloride 91 L, Carbon Dioxide 19.0 L, Anion Gap 12, BUN 22 H, Creatinine 1.15 H, Estim Creat Clear Calc 55.98, Est GFR (MDRD) Af Amer 64, Est GFR (MDRD) Non-Af 53 L, BUN/Creatinine Ratio 19.1, Glucose 140 H, Lactic Acid 2.4 H*, Calcium 8.2 L, Magnesium 1.4 L, Total Bilirubin 0.60, AST 694 H, ALT 283 H, Alkaline Phosphatase 180 H, Total Protein 6.6, Albumin 3.1 L, Globulin 3.5, Albumin/Globulin Ratio 0.9, Lipase 110 H 12/12/23 03:15: WBC 3.1 L, RBC 4.22, Hgb 11.4 L, Hct 33.6 L, MCV 79.6 L, MCH 27.0, MCHC 33.9, RDW Std Deviation 40.4, RDW Coeff of Giselle 13.9, Plt Count 124 L, MPV 10.3, Immature Gran % (Auto) 0.600, Neut % (Auto) 92.7 H, Lymph % (Auto) 4.5 L, [place] % (Auto) 2.2, Eos % (Auto) 0.0, Baso % (Auto) 0.0, Absolute Neuts (auto) 2.9, Absolute Lymphs (auto) 0.14 L, Nucleated RBC % 0 12/12/23 03:50: Urine Color Yellow, Urine Clarity Clear, Urine pH 6.0, Ur Specific [place] 1.015, Urine Protein 100 H, Urine Glucose (UA) Normal, Urine Ketones Negative, Urine Occult Blood 25 H, Urine Nitrite Negative, Urine Bilirubin Negative, Urine Urobilinogen Normal, Ur Leukocyte Esterase Negative, Urine RBC 0 SEEN, Urine WBC 0 SEEN, Ur Squamous Epith Cells 5-10 SEEN, Urine Bacteria 1+, Urine Mucus 0 SEEN 12/12/23 03:54: Urine Osmolality 608, Ur Random Sodium 37 12/12/23 10:47: Serum Osmolality 267 L Micro: Microbiology 12/12/23 03:54 Stool Stool Occult Blood (JOSIAS) - Final Occult Blood Positive Rhythm Strip Rhythm Strip: Sinus Rhythm Rate: 97 Ectopy: None Imaging Radiology Impression Chest X-Ray 12/12/23 03:18 IMPRESSION: Lesser degree of inspiration with development of discoid atelectasis within the right lung. Interval median sternotomy and cardiac valve replacement. No pneumonia. Electronically Signed: Jacob Holloway MD at 5:18 EDT Reading Location ID and State: [facility] / [place] Tel , Service support , Abdomen/Pelvis CT 12/12/23 03:48 IMPRESSION: Possible tiny noncalcified stones in the gallbladder fundus, and correlation with ultrasound may be of benefit. No findings of acute cholecystitis or biliary ductal dilatation. Mild increase in hepatomegaly. Stable mild splenomegaly. Numerous large and small bowel air-fluid levels suggesting a mild ileus or gastroenteritis. No findings of small bowel obstruction or appendicitis. Electronically Signed: Jacob Holloway MD at 4:55 EDT , Assessment and Plan . Assessment and plan: HPI 48 yo woman w/ multiple co-morbidities admitted 12/12/23 w/ N/V/diarrhea. High fever in the ED. Breathing RA. Marginal BP. She received significant IVF w/ improved BP. She recently underwent mechanical AV replacement. She has been taking po ABX for reported sternal wound infection. Also received warfarin for chronic A/C. She also has a reported h/o SLE and is taking immunosuppressive medications. CT A/P in the ED reveals fluid-filled loops of bowel. Otherwise unremarkable. Lab significant for leukopenia, mild anemia, thrombocytopenia. LA 2.4. Significant hyponatremia, creatinine 1.2. BCX, stool studies, Co-V PCR pending. She has received IV ABX. She is currently afebrile, HD stable, breathing RA comfortably. She appears ill, but NAD. EXAM GEN appears ill, NAD VS as above HEENT o/p clear NECK supple COR RRR CHEST CTA - wound clean ABD soft EXT no edema SKIN w/d REID NF ASSESSMENT 1. Sepsis syndrome 2. Hyponatremia 3. Non-specific GI abnormalities on CT 4. Recent mechanical AVR and ABX use for sternal wound infection 5. H/O SLE 6. Leukopenia / Anemia / Thrombocytopenia 7. H/O AF and ASCVD 8. Warfarin use w/ INR 3.0 TREATMENT PLAN -continue isotonic saline -empiric ABX -f/u CX, CDiff PCR, Co-V PCR -A/C held currently - hopefully can safely resume soon -follow serum Na+ Critical Care Time: 60 min The entirety of this encounter was done via Telemedicine
[2023-12-12 11:29] LABS: Procalcitonin 29.98 ng/mL (0.00-0.09)
[2023-12-12] MEDS: Vancomycin HCl 2,000 MG in 0.9% Normal Saline (500mL Bag) 500 ML 250 MG IV (11:41)
--- NOTE | 2023-12-12 12:41 | PCM.RX.CS ---
Consult Antibiotic Management Pharmacy has been consulted to manage selected antibiotic: Vancomycin Type of Intervention Type of Consult: New start Suspected Infection Suspected Infection: Sepsis Labs Labs: Sodium 122 mmol/L (136-145) L 12/12/23 03:01 Potassium 4.4 mmol/L (3.5-5.1) 12/12/23 03:01 Chloride 91 mmol/L (98-107) L 12/12/23 03:01 Carbon Dioxide 19.0 mmol/L (21.0-32.0) L 12/12/23 03:01 Anion Gap 12 (5-15) 12/12/23 03:01 BUN 22 mg/dL (7-18) H 12/12/23 03:01 Creatinine 1.15 mg/dL (0.55-1.02) H 12/12/23 03:01 Est GFR (MDRD) Af Amer 64 mL/min (>60) 12/12/23 03:01 Est GFR (MDRD) Non-Af 53 mL/min (>60) L 12/12/23 03:01 BUN/Creatinine Ratio 19.1 RATIO (10-20) 12/12/23 03:01 Glucose 140 mg/dL (74-106) H 12/12/23 03:01 Microbiology Microbiology: Microbiology 12/12/23 11:10 Mucosa - Nose Coronavirus COVID-19 PCR - Final 12/12/23 03:54 Stool Stool Occult Blood (JOSIAS) - Final Occult Blood Positive Pharmacy Plan for Drug Dosing Pharmacy Plan for Drug Dosing: NEW START IV VANCOMYCIN Consulting Physician: Jules Indication: sepsis Goal Trough: 15-20 mg/dL SrCr: 1.15 mg/dL CrCl: 55 mL/min Comments: loading dose of 2000mg given @ 1141 Vancomycin Dose: Will start 750mg Q12 (12/12 @ 0000) and get a trough prior to the 4th total dose per policy. Pending Level: 12/13/23 @ 2330 Pharmacy Service will continue to monitor and adjust dosing as required.
[2023-12-12] MEDS: Piperacil/Tazobactam 3.375 GM in 0.9% Normal Saline (50mL MB+) 50 ML IV ×2 (13:37→20:04)
[2023-12-12 17:18] LABS: Hematocrit 28.1 % (37-47); Hemoglobin 9.2 g/dL (12.0-15.0); Mean Corp Hgb Conc 32.7 g/dL (32-36); Mean Corpuscular Hgb 26.7 pg (27.0-32.0); Mean Corpuscular Volume 81.7 fL (81-99); Mean Platelet Vol. 10.8 fl (6.2-12.0); POSITIVE COUNT YES; Platelet Count 84 K/mm3 (150-450); RBC Distribution Width CV 14.5 % (11.6-14.6); RBC Distribution Width SD 42.9 fl (35.1-43.9); Red Blood Count 3.44 M/mm3 (4.2-5.4)
[2023-12-12 17:38] LABS: Lactic Acid 1.2 mmol/L (0.4-1.9)
[2023-12-12 17:50] LABS: White Blood Count 1.1 K/mm3 (4.4-11.0)
[2023-12-12 17:51] LABS: Differential Comment SCANNED; Scan Indicated on CBC? Y/N YES- FLAGS NOTED
[2023-12-12] MEDS: Acetaminophen 325 MG Tablet 650 MG PO (20:04)
[2023-12-12] MEDS: Atorvastatin Calcium 20 MG Tablet PO (20:05)
[2023-12-13] VITALS (28 sets, daily range): BP systolic 85–115; BP diastolic 54–83; PULSE 78–110; RESP 16–33; TEMP 36.9–39.9; O2SAT 92–100; BMI 32.8
[2023-12-13] MEDS: Vancomycin HCl 750 MG in 0.9% Normal Saline (250mL Bag) 250 ML 250 MG IV ×2 (00:19→11:53)
[2023-12-13] MEDS: Acetaminophen 325 MG Tablet 650 MG PO ×3 (04:06→19:52)
[2023-12-13] MEDS: 0.9% Saline Lock 10 ML Syringe IV ×2 (04:07→19:50)
[2023-12-13 04:13] LABS: Absolute Neutrophil Count 1.4 X10^3/uL (2.0-7.7); Hematocrit 30.4 % (37-47); Hemoglobin 9.9 g/dL (12.0-15.0); Lymphocyte % 11.5 % (19-41); Mean Corp Hgb Conc 32.6 g/dL (32-36); Mean Corpuscular Hgb 26.6 pg (27.0-32.0); Mean Corpuscular Volume 81.7 fL (81-99); Mean Platelet Vol. 10.5 fl (6.2-12.0); Monocyte# 0.11 X10^3/uL; Monocyte% 6.3 % (0-10); NRBC Flagged by Analyzer 0 % (0-5); Neutrophil # 1.42 X10^3/uL (2.7-7.7); Neutrophil % 81.6 % (47-70); POSITIVE COUNT YES; POSITIVE DIFFERENTIAL YES; POSITIVE MORPHOLOGY YES; Platelet Count 89 K/mm3 (150-450); RBC Distribution Width CV 14.6 % (11.6-14.6); RBC Distribution Width SD 42.8 fl (35.1-43.9); Red Blood Count 3.72 M/mm3 (4.2-5.4); White Blood Count 1.7 K/mm3 (4.4-11.0)
[2023-12-13 04:22] LABS: International Normalized Ratio 3.5; Prothrombin Time (Protime)PT. 34.7 SECONDS (11.7-14.9)
[2023-12-13 04:37] LABS: ALB/GLOB Ratio 0.9 RATIO (0.9-2.4); AST(SGOT) 1459 U/L (15-37); Alanine Aminotransfer ALT/SGPT 558 U/L (13-56); Albumin, Serum 2.6 g/dL (3.2-5.0); Alkaline Phosphatase 194 U/L (45-117); Anion Gap 8 (5-15); BUN 15 mg/dL (7-18); BUN/Creat Ratio 15.8 RATIO (10-20); Calcium,Total 7.6 mg/dL (8.5-10.1); Chloride 104 mmol/L (98-107); Creatinine, Serum 0.95 mg/dL (0.55-1.02); EST Glomerular Filtration Rate 66 mL/min (>60); Est Glom Filt Rate - Afr Amer 80 mL/min (>60); Globulin 2.8 g/dL (2.2-4.2); Glucose 112 mg/dL (74-106); Potassium 4.2 mmol/L (3.5-5.1); Protein, Total 5.4 g/dL (6.4-8.2); Sodium Level 129 mmol/L (136-145)
[2023-12-13 05:02] LABS: Differential Indicated SCAN CRITERIA MET
[2023-12-13 05:03] LABS: Differential Comment SCANNED
[2023-12-13] MEDS: Piperacil/Tazobactam 3.375 GM in 0.9% Normal Saline (50mL MB+) 50 ML IV ×3 (05:32→20:45)
--- NOTE | 2023-12-13 07:29 | PN.HOSP_ITS ---
Reason for Visit Reason for Visit: Diagnoses Hemorrhagic disorder due to extrinsic circulating anticoagulants (12/12/23) Nausea with vomiting, unspecified (12/12/23) Other fecal abnormalities (12/12/23) Diarrhea, unspecified (12/12/23) Adverse effect of anticoagulants, initial encounter (12/12/23) Subjective Subjective denies complaints Objective Data Objective Data Vital Signs: Vital Signs Temp Pulse Resp BP Pulse Ox O2 Del Method 37.6 C H 88 25 H 115/68 94 Room Air 12/13/23 05:30 12/13/23 06:00 12/13/23 06:00 12/13/23 06:00 12/13/23 06:00 12/13/23 06:00 Oxygen Delivery Method Room Air Weight: 80.921 kg Body Mass Index (BMI) 32.8 Intake & Output: Intake and Output for Last 24 Hours 12/11/23 12/12/23 12/13/23 23:59 23:59 23:59 Intake Total 4489.17 / 4489.17 315 / 315 Balance 4489.17 / 4489.17 315 / 315 Lab / Micro Data 12/13/23 03:57 12/13/23 03:57 Labs: Laboratory Results - last 24 hr 12/12/23 03:01: Magnesium 1.4 L 12/12/23 03:54: Urine Osmolality 608, Ur Random Sodium 37 12/12/23 10:47: Serum Osmolality 267 L, Procalcitonin 29.98 H 12/12/23 17:00: WBC 1.1 L*, RBC 3.44 L, Hgb 9.2 L, Hct 28.1 L, MCV 81.7, MCH 26.7 L, MCHC 32.7, RDW Std Deviation 42.9, RDW Coeff of Giselle 14.5, Plt Count 84 L , MPV 10.8, Differential Comment SCANNED, Diff Path Review July, Lactic Acid 1.2, Blood Type A NEGATIVE, Antibody Screen NEGATIVE 12/13/23 03:57: WBC 1.7 L, RBC 3.72 L, Hgb 9.9 L, Hct 30.4 L, MCV 81.7, MCH 26.6 L, MCHC 32.6, RDW Std Deviation 42.8, RDW Coeff of Giselle 14.6, Plt Count 89 L, MPV 10.5, Immature Gran % (Auto) 0.600, Neut % (Auto) 81.6 H, Lymph % (Auto) 11.5 L, [place] % (Auto) 6.3, Eos % (Auto) 0.0, Baso % (Auto) 0.0, Absolute Neuts (auto) 1.4 L, Absolute Lymphs (auto) 0.20 L, Nucleated RBC % 0, Differential Comment SCANNED, PT 34.7 H, INR 3.5, Sodium 129 L, Potassium 4.2, Chloride 104, Carbon Dioxide 17.0 L, Anion Gap 8, BUN 15, Creatinine 0.95, Estim Creat Clear Calc 70.50, Est GFR (MDRD) Af Amer 80, Est GFR (MDRD) Non-Af 66, BUN/Creatinine Ratio 15.8, Glucose 112 H, Calcium 7.6 L, Total Bilirubin 0.60, AST 1459 H, ALT 558 H, Alkaline Phosphatase 194 H, Total Protein 5.4 L, Albumin 2.6 L, Globulin 2.8, Albumin/Globulin Ratio 0.9 Micro: Microbiology 12/12/23 11:50 Stool Clostridioides difficile (PCR) - Final 12/12/23 11:10 Mucosa - Nose Coronavirus COVID-19 PCR - Final 12/12/23 03:54 Stool Stool Occult Blood (JOSIAS) - Final Occult Blood Positive Rhythm Strip Rhythm Strip: Sinus Rhythm Rate: 97 Ectopy: None Physical Exam Const alert and no apparent distress Constitutional Narrative: dozes off during encounter twice. HEENT head/scalp atraumatic and moist oral mucous membranes Resp normal respiratory effort, no retractions and no use of accessory muscles Cardio regular rate, regular rhythm, S1 normal heart sound and S2 normal heart sound Neuro Sensorium / Orientation: awake, alert, oriented to person and oriented to place Assessment & Plan Assessment/Plan (1) Nausea vomiting and diarrhea: (2) Occult GI bleeding: (3) Warfarin-induced coagulopathy: PLAN: Plan Sepsis * POA (see Dr. Deluca's note for criteria) * 2/2 suspected gastroenteritis v hepatitis v other. * C. diff, COVID 19 negative. BCx UCx pending * on pip/tazo and vanc Transaminitis * unclear etiology * AST up from 694 to 1459, ALT 283 to 558 (previously normal) * CT showed no evidence of cholecystitis * Check hepatitis profile, ANCA, IgI ASmAb ABLA * Hg dropped from 11.4 to 9.9. * Heme positive stools. * on warfrain * GI on consult. s/p Recent AVR, mechanical * INR 3.5. Monitor. Chronic conditions: * PAF: Noted postoperatively following recent valve surgery, continue amiodarone, metoprolol as BP allows, once appropriate INR transition to heparin drip given acute presentation as noted. * Hypertension: Continue metoprolol as BP allows, hold Lasix given significant GI losses with readdition once appropriate. * Hyperlipidemia: Given transaminitis will temporally hold statin therapy. * History CVA/TIA: Noted during a in 1997 with no residual deficits, holding aspirin, once appropriate INR transition to heparin drip given acute presentation as noted, temporally holding statin therapy given transaminitis, continue hypertensive regimen as BP allows with adjustment as noted. * Seizure disorder: We will continue patient home Keppra regimen. * SLE, antiphospholipid antibody syndrome: Outpatient on CellCept, Plaquenil and Imuran. patient recently resumed on her imuran as it was held for 4 weeks following recent operative intervention. Given her current presentation #1 will hold patient mycophenolate and Imuran therapy. * Nonobstructive CAD: Holding aspirin and will hold Coumadin, once appropriate INR transition to heparin drip given acute presentation as noted, temporally holding statin therapy given transaminitis, metoprolol, not on BOUCHRA number/ARB. * Obesity class I: complicates care and recovery. VTE prophylaxis: not indicated as pt is anticoagulated. Charges/Coding Visit Charges Inpatient E&M: 27244 Subs Hosp L2
--- NOTE | 2023-12-13 10:24 | CASEMGMT ---
THONG WAYNE Assessment Face to Face with patient for initial transition planning/care coordination assessment. RN CM introduced self and role at [facility], pt voices understanding. Pt is A&Ox4 and is resting comfortably in bed and is calm. Care providers, pharmacy, and demographics verified. Admitting dx: N/V/D LACE Strata: 2 PCP: Esvin Hamlin Specialists: JOSH. Pt also reports that she sees an oncologist and neurologist but cannot recall their names Preferred Pharmacy: [facility] Insurance: [employer] Prescription Benefit: Yes LNOK: Gaurav Browning (H) Living Arrangements: Pt lives with her and 17 y/o son in a single story home with 2 steps to enter ADLs/IADLs: Ind Transportation: self, DME: BP Monitor. Denies further needs HHC/SNF: Denies History or needs Pt?s goal: Home Plan: home no needs. Pt declines the need for HHC, OP Tx, SNF, pt link/CCN. Pt states that she feels safe returning home with her family once she is medically ready. CM to continue to follow. Arsh Thompson RN, CM
[2023-12-13] MEDS: Amiodarone 200 MG Tablet PO (10:30)
[2023-12-13] MEDS: levETIRAcetam 1,000 MG Tablet 1000 MG PO ×2 (10:30→20:46)
[2023-12-13] MEDS: Hydroxychloroquine 200 MG Tablet PO ×2 (10:30→20:46)
[2023-12-13] MEDS: Ferrous Sulfate 325 MG Tablet PO (10:30)
[2023-12-13 11:30] LABS: Pathologist Review Reviewed
--- NOTE | 2023-12-13 13:17 | PN.CC_ITS ---
Assessment & Plan Assessment/Plan (1) Sepsis: (2) Gastroenteritis: PLAN: Plan RECOMMENDATIONS: 1. Continue broad-spectrum antimicrobials. 2. Obtain infectious diseases consultation. 3. Hold Toprol XL for now. 4. Encourage incentive spirometer use and mobilize patient as tolerated. IMPRESSIONS: 1. Sepsis with unclear source The patient initially presented to the hospital with concerns for underlying gastroenteritis a potential viral etiology. C. difficile PCR was negative. The patient underwent recent valve surgery, which was complicated by incisional site infection requiring antimicrobials. She presented to the hospital with approximately 4 days of nausea and diarrhea. Despite broad-spectrum antimicrobials, the patient continues to experience high-grade fevers. No other definitive source of infection has yet to be identified. Accordingly, will obtain infectious diseases consultation. 2. History of coronary artery disease/valvular heart disease status post recent mechanical aortic valve replacement/PAF Continue supportive measures as noted above. Continue to hold baseline anticoagulation. Recommend holding Toprol for now. 3. Hepatosplenomegaly/pancytopenia/transaminitis Gastroenterology is currently following to assist with medical management. Autoimmune workup is currently pending. Hepatitis serology is pending. 4. History of SLE on immunosuppression/hypertension/hyperlipidemia/unspecified seizure disorder Complicates care, management, recovery and prognosis. Continue home medications as indicated. This note was generated with [employer] dictation software. It may contain incorrect words, spelling, and punctuation that were not noted in checking the note before signing. Subjective Subjective The patient was seen and examined at the bedside this morning. Events from the last 24 hours have been reviewed. The patient continues to have fevers and remains tachycardic and tachypneic. She is otherwise hemodynamically stable and maintaining appropriate oxygen saturations on room air. The patient remains pancytopenic. Sodium has improved to 129 with a bicarbonate of 17. Creatinine is within normal limits. AST and ALT are increased at 1459 and 558, respectively. The patient luis eduardo on Zosyn and vancomycin. Objective Data Objective Data The patient's most recent lab work, culture data and imaging studies have all been personally reviewed. Stool for occult blood was positive on December 11. COVID PCR was negative. C. difficile PCR was negative. Blood and urine cultures are pending. Vital Signs: Vital Signs Temp Pulse Resp BP Pulse Ox O2 Del Method 99.7 F H 110 H 16 110/60 98 Room Air 12/13/23 11:00 12/13/23 12:00 12/13/23 12:00 12/13/23 12:00 12/13/23 12:00 12/13/23 12:00 Oxygen Delivery Method Room Air Weight: 178 lb 6.4 oz Body Mass Index (BMI) 32.8 Intake & Output: Intake and Output for Last 24 Hours 12/11/23 12/12/23 12/13/23 23:59 23:59 23:59 Intake Total 4489.17 / 4489.17 630 / 630 Output Total 500 / 500 Balance 4489.17 / 4489.17 130 / 130 Lab / Micro Data Attestation: I reviewed the patient's lab results. 12/13/23 03:57 12/13/23 03:57 Labs: Laboratory Results - last 24 hr 12/12/23 17:00: WBC 1.1 L*, RBC 3.44 L, Hgb 9.2 L, Hct 28.1 L, MCV 81.7, MCH 26.7 L, MCHC 32.7, RDW Std Deviation 42.9, RDW Coeff of Giselle 14.5, Plt Count 84 L , MPV 10.8, Differential Comment SCANNED, Diff Path Review Reviewed, Lactic Acid 1.2, Blood Type A NEGATIVE, Antibody Screen NEGATIVE 12/13/23 03:57: WBC 1.7 L, RBC 3.72 L, Hgb 9.9 L, Hct 30.4 L, MCV 81.7, MCH 26.6 L, MCHC 32.6, RDW Std Deviation 42.8, RDW Coeff of Giselle 14.6, Plt Count 89 L, MPV 10.5, Immature Gran % (Auto) 0.600, Neut % (Auto) 81.6 H, Lymph % (Auto) 11.5 L, [place] % (Auto) 6.3, Eos % (Auto) 0.0, Baso % (Auto) 0.0, Absolute Neuts (auto) 1.4 L, Absolute Lymphs (auto) 0.20 L, Nucleated RBC % 0, Differential Comment SCANNED, PT 34.7 H, INR 3.5, Sodium 129 L, Potassium 4.2, Chloride 104, Carbon Dioxide 17.0 L, Anion Gap 8, BUN 15, Creatinine 0.95, Estim Creat Clear Calc 70.50, Est GFR (MDRD) Af Amer 80, Est GFR (MDRD) Non-Af 66, BUN/Creatinine Ratio 15.8, Glucose 112 H, Calcium 7.6 L, Total Bilirubin 0.60, AST 1459 H, ALT 558 H, Alkaline Phosphatase 194 H, Total Protein 5.4 L, Albumin 2.6 L, Globulin 2.8, Albumin/Globulin Ratio 0.9 Micro: Microbiology 12/12/23 11:50 Stool Clostridioides difficile (PCR) - Final 12/12/23 11:10 Mucosa - Nose Coronavirus COVID-19 PCR - Final 12/12/23 03:54 Stool Stool Occult Blood (JOSIAS) - Final Occult Blood Positive Rhythm Strip Rhythm Strip: Sinus Rhythm Rate: 97 Ectopy: None Physical Exam Const alert Constitutional Narrative: Ill-appearing. Sitting in bedside recliner. General Appearance: cooperative HEENT normocephalic and head/scalp atraumatic Eyes PERRL, EOMs intact bilaterally and conjunctivae normal Neck supple General: trachea midline Chest inspection of chest normal Resp normal respiratory effort Auscultation: wheezes; Negative for rales or rhonchi Cardio regular rate and regular rhythm Heart Sounds: murmur other (Audible click) GI soft to palpation and non-tender Extremity no clubbing, cyanosis or edema Skin General Skin Exam: erythema Neuro oriented x3, CN's II-XII intact bilaterally and moves all extremities Psych Mood & Affect: flat affect Charges/Coding Visit Charges Inpatient E&M: 86085 Subs Hosp L2
--- NOTE | 2023-12-13 15:13 | WOUNDNOTE ---
wound photo: sternum
--- NOTE | 2023-12-13 18:38 | PN.GI_ITS ---
Subjective Subjective Patient is still having high fevers. Objective Data Objective Data Vital Signs: Vital Signs Temp Pulse Resp BP Pulse Ox O2 Del Method 99.7 F H 94 20 H 98/66 100 Room Air 12/13/23 17:00 12/13/23 18:00 12/13/23 18:00 12/13/23 18:00 12/13/23 18:00 12/13/23 18:00 Oxygen Delivery Method Room Air Weight: 178 lb 6.4 oz Body Mass Index (BMI) 32.8 Intake & Output: Intake and Output for Last 24 Hours 12/11/23 12/12/23 12/13/23 23:59 23:59 23:59 Intake Total 4489.17 / 4489.17 680 / 680 Output Total 800 / 800 Balance 4489.17 / 4489.17 -120 / -120 Lab / Micro Data 12/13/23 03:57 12/13/23 03:57 Labs: Laboratory Results - last 24 hr 12/12/23 17:00: Diff Path Review Reviewed 12/13/23 03:57: WBC 1.7 L, RBC 3.72 L, Hgb 9.9 L, Hct 30.4 L, MCV 81.7, MCH 26.6 L, MCHC 32.6, RDW Std Deviation 42.8, RDW Coeff of Giselle 14.6, Plt Count 89 L, MPV 10.5, Immature Gran % (Auto) 0.600, Neut % (Auto) 81.6 H, Lymph % (Auto) 11.5 L, [place] % (Auto) 6.3, Eos % (Auto) 0.0, Baso % (Auto) 0.0, Absolute Neuts (auto) 1.4 L, Absolute Lymphs (auto) 0.20 L, Nucleated RBC % 0, Differential Comment SCANNED, PT 34.7 H, INR 3.5, Sodium 129 L, Potassium 4.2, Chloride 104, Carbon Dioxide 17.0 L, Anion Gap 8, BUN 15, Creatinine 0.95, Estim Creat Clear Calc 70.50, Est GFR (MDRD) Af Amer 80, Est GFR (MDRD) Non-Af 66, BUN/Creatinine Ratio 15.8, Glucose 112 H, Calcium 7.6 L, Total Bilirubin 0.60, AST 1459 H, ALT 558 H, Alkaline Phosphatase 194 H, Total Protein 5.4 L, Albumin 2.6 L, Globulin 2.8, Albumin/Globulin Ratio 0.9 Micro: Microbiology 12/12/23 11:50 Stool Clostridioides difficile (PCR) - Final 12/12/23 11:10 Mucosa - Nose Coronavirus COVID-19 PCR - Final 12/12/23 03:54 Stool Stool Occult Blood (JOSIAS) - Final Occult Blood Positive Rhythm Strip Rhythm Strip: Sinus Rhythm Rate: 97 Ectopy: None Physical Exam Const alert Constitutional Narrative: Ill-appearing. Sitting in bedside recliner. General Appearance: cooperative HEENT normocephalic and head/scalp atraumatic Eyes PERRL, EOMs intact bilaterally and conjunctivae normal Neck supple General: trachea midline Chest inspection of chest normal Resp normal respiratory effort Auscultation: wheezes; Negative for rales or rhonchi Cardio regular rate and regular rhythm Heart Sounds: murmur other (Audible click) GI soft to palpation and non-tender Extremity no clubbing, cyanosis or edema Skin General Skin Exam: erythema Neuro oriented x3, CN's II-XII intact bilaterally and moves all extremities Psych Mood & Affect: flat affect Assessment & Plan Assessment/Plan (1) Nausea vomiting and diarrhea: (2) Occult GI bleeding: (3) Warfarin-induced coagulopathy: (4) Pancytopenia: (5) Elevated liver enzymes: (6) Acute hyponatremia: PLAN: Plan The patient is a 48 y/o woman with a very complicated past medical history of ITP, history of TIA and recent diagnosis of lupus systemic erythematosus on hydroxychloroquine, mycophenolate Mycophenolate Mofetil and azathioprine. Along with a have a diagnosis of a seizure disorder who recently was discharged 11/11/23 from [facility] following elective aortic valve replacement 11/05/23 with upper J Hemisternotomy with mechanical AVR and aortoplasty. She currently has signs of SIRS and possibly sepsis with hypotension, leukopenia, thrombocytopenia, mild anemia and fevers status post open heart surgery with valve replacement. Biochemical workup also shows transaminitis with cholestatic hepatitis without jaundice. Imaging shows hepatosplenomegaly which was not apparent on her previous images even though she had previous episodes of for cytopenia possibly secondary to diagnosis of lupus. SIRS or sepsis possibly secondary to recent antibiotic usage, endocarditis, bacterial viral gastroenteritis in the setting of immunosuppression. Because she is on anticoagulation she cannot be tested for DIC. Hepatosplenomegaly and thrombocytopenia can occur after open heart surgery. Thrombocytopenia is more prominent expressly asked her cardiopulmonary bypass resulting in blood destruction, involution and platelet consumption. She is also at risk for HIT or drug-induced ITP being that the medicines that she is on. We are awaiting stool samples. In the interim I think she should be started on prophylactic vancomycin and Zosyn which I will start she did have 1 set of blood cultures. She did not have to return to this shortage. I believe that her transaminitis will likely get worse to hypotension and have a bilirubin will go up. I think this is likely secondary to ischemic hepatitis but he should check her for acute viral hepatitis including A, B, C, EBV and CMV due to her immunosuppression. Also she is at risk for new onset autoimmune hepatitis due to history of lupus which she is to be called lupus hepatitis so she should be checked for ANCA antibodies, IgG subclasses and anti-smooth muscle antibody and anti-smooth muscle kidney antibodies. No indication to stop anticoagulation or to start on heparin at this time. Consider TTE and YOHANA. I will continue to follow. 12/13/2023-patient is still very somnolent. She continues on IV antibiotics. Her pancytopenia is a little worse. Companied by elevated INR there is a possibility of DIC secondary to sepsis. She could be having a lupus flare as she has been off of some of her immunosuppressive's since she had surgery. That would explain the fevers and pancytopenia. It also could explain her new hepatosplenomegaly. I would consult rheumatology to see if immunosuppression is warranted for an acute lupus flare. -Elevated liver enzymes: She has cholestatic hepatitis which has a pattern of hepatocellular injury being that is mostly transaminitis. The differential diagnosis for that would be ischemic colitis, autoimmune hepatitis, Angel's disease, Tylenol toxicity. Recommendation is N-acetylcysteine. If her liver enzymes continue to increase as well as her pancytopenia continues to get worse then I would recommend transfer to a tertiary care center. I will make sure her biochemical labs are sent for autoimmune disease affecting the liver including IgG associated cholangitis and all the other diseases previously mentioned. It is very hard -Her MELD for acute liver failure in a patient that likely has chronic liver disease developing hepatosplenomegaly is high at 26. That is with her INR being partly falsely elevated secondary to anticoagulation versus if she had a normal INR of 1 her MELD will be 6. Despite that I think she would benefit from N- acetylcysteine. Her anticoagulation would have to be stopped for liver biopsy to determine the true extent of injury. Charges/Coding Visit Charges Inpatient E&M: 20819 Subs Hosp L3
[2023-12-13 18:56] LABS: Erythrocyte Sedimentation Rate 4 mm/hr (0-30)
[2023-12-13 19:20] LABS: Ferritin > 40000 ng/mL (8-252)
[2023-12-13] MEDS: DEXTROSE 5% IV ×2 (19:48→20:47)
[2023-12-13] MEDS: WATER IV ×2 (19:48→20:47)
[2023-12-13] MEDS: ACETYLCYSTEINE IV ×2 (19:48→20:47)
[2023-12-13] MEDS: Atorvastatin Calcium 20 MG Tablet PO (20:47)
[2023-12-13] MEDS: MELATONIN 3 MG TABLET PO (22:57)
[2023-12-14] VITALS (25 sets, daily range): BP systolic 95–114; BP diastolic 51–81; PULSE 83–111; RESP 18–28; TEMP 36.4–37.8; O2SAT 92–100; BMI 32.7
[2023-12-14 00:14] LABS: Vancomycin, Trough Level 13.4 ug/mL (5.0-15.0)
--- NOTE | 2023-12-14 00:22 | PHA.PHARE_ITS ---
Consult Antibiotic Management Pharmacy has been consulted to manage selected antibiotic: Vancomycin Type of Intervention Type of Consult: Follow-up Labs Labs: Sodium 129 mmol/L (136-145) L 12/13/23 03:57 Potassium 4.2 mmol/L (3.5-5.1) 12/13/23 03:57 Chloride 104 mmol/L (98-107) 12/13/23 03:57 Carbon Dioxide 17.0 mmol/L (21.0-32.0) L 12/13/23 03:57 Anion Gap 8 (5-15) 12/13/23 03:57 BUN 15 mg/dL (7-18) 12/13/23 03:57 Creatinine 0.95 mg/dL (0.55-1.02) 12/13/23 03:57 Est GFR (MDRD) Af Amer 80 mL/min (>60) 12/13/23 03:57 Est GFR (MDRD) Non-Af 66 mL/min (>60) 12/13/23 03:57 BUN/Creatinine Ratio 15.8 RATIO (10-20) 12/13/23 03:57 Glucose 112 mg/dL (74-106) H 12/13/23 03:57 Vancomycin Trough 13.4 ug/mL (5.0-15.0) 12/13/23 23:30 Microbiology Microbiology: Microbiology 12/12/23 11:50 Stool Clostridioides difficile (PCR) - Final 12/12/23 11:10 Mucosa - Nose Coronavirus COVID-19 PCR - Final 12/12/23 03:54 Stool Stool Occult Blood (JOSIAS) - Final Occult Blood Positive Pharmacy Plan for Drug Dosing Pharmacy Plan for Drug Dosing: Pharmacy Service will continue to monitor and adjust dosing as required. TROUGH 13.4 @ 11.5 HOURS. INCREASE TO 1GM Q12H AND FOLLOW UP TROUGH PRIOR TO 4TH DOSE Follow-Up Labs Follow-Up Labs: Trough: Vancomycin Date/Time Labs Ordered Labs to be done on [date and time ordered]: 12/14 @ 1139
[2023-12-14] MEDS: 0.9% Saline Lock 10 ML Syringe IV ×3 (00:47→13:32)
[2023-12-14] MEDS: Vancomycin IV 1,000 MG/200 ML BAG 200 MG IV ×2 (00:47→11:40)
[2023-12-14] MEDS: Acetaminophen 325 MG Tablet 650 MG PO (03:16)
[2023-12-14 03:25] LABS: Absolute Lymphocyte Count 0.14 X10^3/uL (0.83-4.51); Hematocrit 29.4 % (37-47); Hemoglobin 9.6 g/dL (12.0-15.0); Lymphocyte # 0.14 X10^3/ul (0.83-4.51); Lymphocyte % 6.3 % (19-41); Mean Corp Hgb Conc 32.7 g/dL (32-36); Mean Corpuscular Hgb 26.6 pg (27.0-32.0); Mean Corpuscular Volume 81.4 fL (81-99); Mean Platelet Vol. 11.4 fl (6.2-12.0); Monocyte# 0.11 X10^3/uL; Monocyte% 4.9 % (0-10); NRBC Flagged by Analyzer 0 % (0-5); Neutrophil # 1.97 X10^3/uL (2.7-7.7); Neutrophil % 87.9 % (47-70); POSITIVE COUNT YES; POSITIVE DIFFERENTIAL YES; POSITIVE MORPHOLOGY YES; Platelet Count 84 K/mm3 (150-450); RBC Distribution Width CV 14.8 % (11.6-14.6); RBC Distribution Width SD 43.8 fl (35.1-43.9); Red Blood Count 3.61 M/mm3 (4.2-5.4); White Blood Count 2.2 K/mm3 (4.4-11.0)
[2023-12-14 03:28] LABS: Differential Indicated SCAN CRITERIA MET
[2023-12-14 03:34] LABS: Prothrombin Time (Protime)PT. 52.4 SECONDS (11.7-14.9)
[2023-12-14 03:42] LABS: International Normalized Ratio 5.9
[2023-12-14 03:47] LABS: ALB/GLOB Ratio 0.7 RATIO (0.9-2.4); AST(SGOT) 1451 U/L (15-37); Alanine Aminotransfer ALT/SGPT 671 U/L (13-56); Albumin, Serum 2.1 g/dL (3.2-5.0); Alkaline Phosphatase 210 U/L (45-117); Anion Gap 9 (5-15); BUN 16 mg/dL (7-18); BUN/Creat Ratio 15.4 RATIO (10-20); Calcium,Total 7.7 mg/dL (8.5-10.1); Chloride 103 mmol/L (98-107); Creatinine, Serum 1.04 mg/dL (0.55-1.02); EST Glomerular Filtration Rate 60 mL/min (>60); Est Glom Filt Rate - Afr Amer 72 mL/min (>60); Estimated Creatinine Clearance 64.56 ml/min; Globulin 2.9 g/dL (2.2-4.2); Glucose 129 mg/dL (74-106); Potassium 3.7 mmol/L (3.5-5.1); Sodium Level 128 mmol/L (136-145)
[2023-12-14 04:21] LABS: Differential Comment SCANNED; Platelet Estimate ADEQUATE (ADEQ)
[2023-12-14] MEDS: Piperacil/Tazobactam 3.375 GM in 0.9% Normal Saline (50mL MB+) 50 ML IV ×3 (05:02→20:19)
[2023-12-14] MEDS: Phytonadione (neonatal) 1 MG/0.5 ML AMPUL IM (05:03)
--- NOTE | 2023-12-14 06:50 | PN.CC_ITS ---
Assessment & Plan Assessment/Plan (1) Sepsis: (2) Gastroenteritis: PLAN: Plan RECOMMENDATIONS: 1. Continue broad-spectrum antimicrobials, pending ID evaluation. 2. Consider empiric initiation of corticosteroids over concerns for lupus flare, if okay from ID perspective. 3. Encourage incentive spirometer use and mobilize patient as tolerated. 4. Check C3/C4 5. Continue to monitor INR. No need for vitamin K. IMPRESSIONS: 1. Sepsis with unclear source The patient initially presented to the hospital with concerns for underlying gastroenteritis of potential viral etiology. C. difficile PCR was negative. The patient underwent recent valve surgery, which was complicated by incisional site infection requiring antimicrobials. She presented to the hospital with approximately 4 days of nausea and diarrhea. Despite broad-spectrum antimicrobials, the patient continues to experience fevers. No other definitive source of infection has yet to be identified. Therefore, it is certainly plausible that the patient could be experiencing an underlying lupus flare, as her baseline immunosuppression was placed on hold to facilitate her recent surgical procedure. Given this, will obtain ID consultation today. I did speak with the patient's social staff worker about her current clinical state and she indicated that pulse dose steroids would be reasonable, if infection has been adequately ruled out. 2. History of coronary artery disease/valvular heart disease status post recent mechanical aortic valve replacement/PAF Continue supportive measures as noted above. Continue to hold baseline anticoagulation. 3. Hepatosplenomegaly/pancytopenia/transaminitis Gastroenterology is currently following to assist with medical management. Autoimmune workup is currently pending. Hepatitis serology is pending. 4. History of SLE on immunosuppression/hypertension/hyperlipidemia/unspecified seizure disorder Complicates care, management, recovery and prognosis. Continue home medications as indicated. This note was generated with [employer] dictation software. It may contain incorrect words, spelling, and punctuation that were not noted in checking the note before signing. Subjective Subjective The patient was seen and examined at the bedside this morning. Events from the last 24 hours have been reviewed. The patient is currently afebrile, hemodynamically stable and maintaining appropriate oxygen saturations on room air. No overnight issues were identified by the nursing staff. The patient remains pancytopenic. INR is increased at 5.9. Sodium is low at 128 with a bicarbonate of 16 and creatinine of 1.04. AST and ALT remain elevated. I did call and personally speak with the patient's social staff worker, Dr. Guerrero, of the arthritis clinic of [facility] this morning regarding the patient's current clinical status. She indicated that if we were confident that infection has been ruled out that it would be reasonable to provide the patient with corticosteroids, typically 1 g of IV Solu-Medrol for 3 days. She also recommended checking C3 and C4 levels. Objective Data Objective Data The patient's most recent lab work, culture data and imaging studies have all been personally reviewed. Stool for occult blood was positive on December 11. COVID PCR was negative. C. difficile PCR was negative. Blood and urine cultures are pending. Vital Signs: Vital Signs Temp Pulse Resp BP Pulse Ox O2 Del Method 98.9 F 93 23 H 100/67 95 Room Air 12/14/23 05:00 12/14/23 06:00 12/14/23 06:00 12/14/23 06:00 12/14/23 06:00 12/14/23 06:00 Oxygen Delivery Method Room Air Weight: 178 lb 12.718 oz Body Mass Index (BMI) 32.7 Intake & Output: Intake and Output for Last 24 Hours 12/12/23 12/13/23 12/14/23 23:59 23:59 23:59 Intake Total 4489.17 / 4489.17 940.7 / 940.7 250 / 250 Output Total 800 / 800 0 / 0 Balance 4489.17 / 4489.17 140.7 / 140.7 250 / 250 Lab / Micro Data Attestation: I reviewed the patient's lab results. 12/14/23 03:13 12/14/23 03:13 Labs: Laboratory Results - last 24 hr 12/12/23 17:00: Diff Path Review Reviewed 12/13/23 03:57: ESR 4, Ferritin > 18557 H, C-React Prot Ext Range 222.00 H 12/13/23 23:30: Vancomycin Trough 13.4 12/14/23 03:13: WBC 2.2 L, RBC 3.61 L, Hgb 9.6 L, Hct 29.4 L, MCV 81.4, MCH 26.6 L, MCHC 32.7, RDW Std Deviation 43.8, RDW Coeff of Giselle 14.8 H, Plt Count 84 L, MPV 11.4, Immature Gran % (Auto) 0.900, Neut % (Auto) 87.9 H, Lymph % (Auto) 6.3 L, [place] % (Auto) 4.9, Eos % (Auto) 0.0, Baso % (Auto) 0.0, Absolute Neuts (auto) 2.0, Absolute Lymphs (auto) 0.14 L, Nucleated RBC % 0, Differential Comment SCANNED, Diff Path Review July, Platelet Estimate ADEQUATE, PT 52.4 H, INR 5.9 H*, Sodium 128 L, Potassium 3.7, Chloride 103, Carbon Dioxide 16.0 L, Anion Gap 9, BUN 16, Creatinine 1.04 H, Estim Creat Clear Calc 64.56, Est GFR (MDRD) Af Amer 72, Est GFR (MDRD) Non-Af 60, BUN/Creatinine Ratio 15.4, Glucose 129 H, Calcium 7.7 L, Total Bilirubin 0.60, AST 1451 H, ALT 671 H, Alkaline Phosphatase 210 H, Total Protein 5.0 L, Albumin 2.1 L, Globulin 2.9, Albumin/Globulin Ratio 0.7 L Micro: Microbiology 12/12/23 11:50 Stool Clostridioides difficile (PCR) - Final 12/12/23 11:10 Mucosa - Nose Coronavirus COVID-19 PCR - Final 12/12/23 03:54 Stool Stool Occult Blood (JOSIAS) - Final Occult Blood Positive Rhythm Strip Rhythm Strip: Sinus Rhythm Rate: 97 Ectopy: None Physical Exam Const alert Constitutional Narrative: Ill-appearing. Sitting in bedside recliner. General Appearance: cooperative HEENT normocephalic and head/scalp atraumatic Eyes PERRL, EOMs intact bilaterally and conjunctivae normal Neck supple General: trachea midline Chest inspection of chest normal Resp normal respiratory effort Auscultation: wheezes; Negative for rales or rhonchi Cardio regular rate and regular rhythm Heart Sounds: murmur other (Audible click) GI soft to palpation and non-tender Extremity no clubbing, cyanosis or edema Skin Skin Narrative: Erythematous rash over trunk and face Neuro oriented x3, CN's II-XII intact bilaterally and moves all extremities Psych Mood & Affect: flat affect Charges/Coding Visit Charges Inpatient E&M: 92668 Subs Hosp L3
--- NOTE | 2023-12-14 06:54 | PN.HOSP_ITS ---
Reason for Visit Reason for Visit: Diagnoses Sepsis, unspecified organism (12/12/23) Other pancytopenia (12/12/23) Hemorrhagic disorder due to extrinsic circulating anticoagulants (12/12/23) Hypo-osmolality and hyponatremia (12/12/23) Noninfective gastroenteritis and colitis, unspecified (12/12/23) Nausea with vomiting, unspecified (12/12/23) Other fecal abnormalities (12/12/23) Diarrhea, unspecified (12/12/23) Abnormal levels of other serum enzymes (12/12/23) Adverse effect of anticoagulants, initial encounter (12/12/23) Subjective Subjective Feeling better. No events overnight. Objective Data Objective Data Vital Signs: Vital Signs Temp Pulse Resp BP Pulse Ox O2 Del Method 37.2 C 93 23 H 100/67 95 Room Air 12/14/23 05:00 12/14/23 06:00 12/14/23 06:00 12/14/23 06:00 12/14/23 06:00 12/14/23 06:00 Oxygen Delivery Method Room Air Weight: 81.1 kg Body Mass Index (BMI) 32.7 Intake & Output: Intake and Output for Last 24 Hours 12/12/23 12/13/23 12/14/23 23:59 23:59 23:59 Intake Total 4489.17 / 4489.17 940.7 / 940.7 250 / 250 Output Total 800 / 800 0 / 0 Balance 4489.17 / 4489.17 140.7 / 140.7 250 / 250 Lab / Micro Data 12/14/23 03:13 12/14/23 03:13 Labs: Laboratory Results - last 24 hr 12/12/23 17:00: Diff Path Review Reviewed 12/13/23 03:57: ESR 4, Ferritin > 48591 H, C-React Prot Ext Range 222.00 H 12/13/23 23:30: Vancomycin Trough 13.4 12/14/23 03:13: WBC 2.2 L, RBC 3.61 L, Hgb 9.6 L, Hct 29.4 L, MCV 81.4, MCH 26.6 L, MCHC 32.7, RDW Std Deviation 43.8, RDW Coeff of Giselle 14.8 H, Plt Count 84 L, MPV 11.4, Immature Gran % (Auto) 0.900, Neut % (Auto) 87.9 H, Lymph % (Auto) 6.3 L, [place] % (Auto) 4.9, Eos % (Auto) 0.0, Baso % (Auto) 0.0, Absolute Neuts (auto) 2.0, Absolute Lymphs (auto) 0.14 L, Nucleated RBC % 0, Differential Comment SCANNED, Diff Path Review July, Platelet Estimate ADEQUATE, PT 52.4 H, INR 5.9 H*, Sodium 128 L, Potassium 3.7, Chloride 103, Carbon Dioxide 16.0 L, Anion Gap 9, BUN 16, Creatinine 1.04 H, Estim Creat Clear Calc 64.56, Est GFR (MDRD) Af Amer 72, Est GFR (MDRD) Non-Af 60, BUN/Creatinine Ratio 15.4, Glucose 129 H, Calcium 7.7 L, Total Bilirubin 0.60, AST 1451 H, ALT 671 H, Alkaline Phosphatase 210 H, Total Protein 5.0 L, Albumin 2.1 L, Globulin 2.9, Albumin/Globulin Ratio 0.7 L Micro: Microbiology 12/12/23 11:50 Stool Clostridioides difficile (PCR) - Final 12/12/23 11:10 Mucosa - Nose Coronavirus COVID-19 PCR - Final 12/12/23 03:54 Stool Stool Occult Blood (JOSIAS) - Final Occult Blood Positive Rhythm Strip Rhythm Strip: Sinus Rhythm Rate: 97 Ectopy: None Physical Exam Resp normal respiratory effort, no retractions, no use of accessory muscles and clear to auscultation bilaterally Cardio regular rate, regular rhythm, S1 normal heart sound and S2 normal heart sound GI normal to inspection, nondistended, normoactive bowel sounds, soft to palpation, non-tender and non-distended Neuro Sensorium / Orientation: awake and alert Assessment & Plan Assessment/Plan (1) Nausea vomiting and diarrhea: (2) Occult GI bleeding: (3) Warfarin-induced coagulopathy: PLAN: Plan Sepsis * POA (see Dr. Deluca's note for criteria) * 2/2 suspected gastroenteritis v hepatitis v other. * C. diff, COVID 19 negative. BCx UCx pending * on pip/tazo and vanc * ID consult. Transaminitis * suspected due to ischemic hepatitis from hypotension. * Appears to be leveling off: AST 694 to 1459 to 1451, ALT 283 to 558 to 671 (previously normal) * CT showed no evidence of cholecystitis * Check hepatitis profile, ANCA, IgI ASmAb, CMV, EBV. ABLA * Hg dropped from 11.4 to 9.6. * Heme positive stools. * on warfrain * GI on consult. Thrombocytopenia * stable. * likely 2/2 sepsis. s/p Recent AVR, mechanical * INR 5.9. Monitor. Received a 1x dose of vitamin K (5mg) Chronic conditions: * PAF: Noted postoperatively following recent valve surgery, continue amiodarone, metoprolol as BP allows, once appropriate INR transition to heparin drip given acute presentation as noted. * Hypertension: Continue metoprolol as BP allows, hold Lasix given significant GI losses with readdition once appropriate. * Hyperlipidemia: Given transaminitis will temporally hold statin therapy. * History CVA/TIA: Noted during a in 1997 with no residual deficits, holding aspirin, once appropriate INR transition to heparin drip given acute presentation as noted, temporally holding statin therapy given transaminitis, continue hypertensive regimen as BP allows with adjustment as noted. * Seizure disorder: We will continue patient home Keppra regimen. * SLE, antiphospholipid antibody syndrome: Outpatient on CellCept, Plaquenil and Imuran. patient recently resumed on her imuran as it was held for 4 weeks following recent operative intervention. Given her current presentation #1 will hold patient mycophenolate and Imuran therapy. * Obesity class I: complicates care and recovery. VTE prophylaxis: not indicated as pt is anticoagulated. Charges/Coding Visit Charges Inpatient E&M: 12073 Subs Hosp L2
[2023-12-14] MEDS: Ferrous Sulfate 325 MG Tablet PO (09:44)
[2023-12-14] MEDS: levETIRAcetam 1,000 MG Tablet 1000 MG PO ×2 (09:44→20:19)
[2023-12-14] MEDS: Amiodarone 200 MG Tablet PO (09:44)
[2023-12-14] MEDS: Hydroxychloroquine 200 MG Tablet PO ×2 (09:44→20:19)
--- NOTE | 2023-12-14 10:27 | ECHOCS_ITS ---
Reason For Study: S/P AVR w/FEVERS Procedure This was a 2D Doppler, Color Flow transthoracic echocardiogram. The study was technically difficult. Exam performed portable in ICU/CCU. Left Ventricle Normal LV size. The left ventricular ejection fraction is 65 %. Stage 2 diastolic dysfunction. No regional wall motion abnormalities noted. Right Ventricle Normal RV size. Normal systolic function. Atria Normal left atrium. Normal right atrium. Mitral Valve Normal mitral valve. Tricuspid Valve Normal tricuspid valve. Mild (1+) tricuspid valve insufficiency. Pulmonary artery systolic pressure is 30 mmHg. Aortic Valve Peak aortic valve gradient 17 mmHg. Mean aortic valve gradient 8 mmHg. Stable appearing mechanical aortic valve apparatus. Pulmonic Valve Normal pulmonic valve. Mild (1+) pulmonic valve insufficiency. Great Vessels Normal aortic root. The pulmonary artery is normal size. Normal inferior vena cava. Pericardium/Pleural No pericardial effusion. Medication Diluted definity 2.0ml given slow IV push to enhance endocardial definition. MMode/2D Measurements & Calculations LVIDd: 4.8 cm IVSd: 1.2 cm LVOT diam: 2.1 cm LVIDs: 3.0 cm LVPWd: 1.1 cm FS: 38.7 % LVOT area: 3.4 cm2 LAV(MOD-bp): 44.9 ml LVAd ap4: 38.7 cm2 SV(MOD-sp4): 71.1 ml LAV(MOD-bp) Indexed: 24.7 ml/m2 LVLd ap4: 9.6 cm LAV(MOD-sp2): 43.6 ml EDV(MOD-sp4): 131.7 ml LAV(MOD-sp4): 38.1 ml EDV(sp4-el): 132.6 ml LVAs ap4: 23.8 cm2 LVLs ap4: 8.3 cm ESV(MOD-sp4): 60.6 ml ESV(sp4-el): 58.0 ml EF(MOD-sp4): 54.0 % EF(sp4-el): 56.2 % SV(sp4-el): 74.6 ml LA A4 area: 14.1 cm2 RA A4 area: 15.4 cm2 TAPSE: 1.4 cm Time Measurements MV dec time: 0.19 sec Doppler Measurements & Calculations MV E max jovani: 76.5 cm/sec Lat Peak E' Jovani: 8.7 cm/sec Med Peak E' Jovani: 16.4 cm/sec MV A max jovani: 60.7 cm/sec E/E' lat: 8.8 E/E' med: 4.7 MV E/A: 1.3 MV V2 max: 81.6 cm/sec MV P1/2t max jovani: 88.6 cm/sec Ao V2 max: 209.8 cm/sec MV max P.7 mmHg MV P1/2t: 61.5 msec Ao max P.6 mmHg MV V2 mean: 52.7 cm/sec Ao V2 mean: 136.7 cm/sec MV mean P.2 mmHg MV dec slope: 422.4 cm/sec2 Ao mean P.5 mmHg MV V2 VTI: 19.4 cm MVA(P1/2t): 3.6 cm2 Ao V2 VTI: 25.5 cm AV (velocity ratio): 0.71 MVA(VTI): 3.1 cm2 BUSTER(I,D): 2.4 cm2 BUSTER(V,D): 2.1 cm2 LV V1 max: 131.5 cm/sec SV(LVOT): 61.1 ml PA V2 max: 102.5 cm/sec LV V1 max P.9 mmHg PA V2 mean: 64.7 cm/sec LV V1 mean P.1 mmHg LV V1 mean: 81.4 cm/sec LV V1 VTI: 18.1 cm PI dec slope: 158.6 cm/sec2 TR max jovani: 260.5 cm/sec TR max P.1 mmHg ECHO/Echo Complete W/ Contrast Interpretation Summary The left ventricular ejection fraction is 65 %. Normal LV size. Stage 2 diastolic dysfunction. Stable appearing mechanical aortic valve apparatus. Contrast injection was performed. There is no evidence of a mass or vegetation. This does not rule out endocarditis. Ordering Physician: Karlos Yousif Referring Physician: Esvin Hamlin Performed By: Nancy Sinclair RDCS, RVT
--- NOTE | 2023-12-14 10:48 | CON.PCM.ID_ITS ---
Assessment & Plan Assessment/Plan (1) Sepsis: PLAN: Cxs neg so far. No fever last night. Covid neg, cdiff neg. Pancytopenia, but not neutropenic. Had been off immunosuppression for her [facility] heart valve replacement. Transaminitis rise may be starting to level off. On empiric vanc/zosyn. Will check resp pcr panel and stool pcr panel. Lupus flare is possible explanation for her presentation. If resp and stool pcr are neg, would be ok to do steroid burst. Sternal wounds do not appear infected. Will follow, thank you, d/w Dr. Yousif (2) Gastroenteritis: (3) Elevated liver enzymes: (4) H/O mechanical aortic valve replacement: (5) Pancytopenia: HPI Consult Data Date of Consult: 12/14/23 HPI Narrative Reason for Consultation: fever HPI Narrative: JAKY WORTHY, is a 48 F with SLE, CKD, remote h/o stroke, had mechanical AVR 11/05/23 at [facility], presented 12/11 with 2 days n/v/d, fever, not feeling well, and rash on arms and legs. Some congestion, no abd pain, no new joint pain. No dysuria, no sick contacts, no recent travel or unusual foods. Admitted on vanc/zosyn, still with some fever and n/v. Had some recent abx as outpt for two small ongoing wounds s/p sternotomy. Some of her immunosuppression had been on hold for the surgery, but she is not sure. Full ROS performed and neg except as noted above. [facility] Medical History CKD (chronic kidney disease), stage II Adult celiac disease PAF (paroxysmal atrial fibrillation) CAD (coronary artery disease) Obesity Former tobacco use History of CVA (cerebrovascular accident) Iron deficiency anemia Lupus anticoagulant positive SLE (systemic lupus erythematosus) Seizures Carpal tunnel syndrome Arthritis Nonrheumatic aortic (valve) stenosis Essential hypertension Nonrheumatic aortic (valve) insufficiency Seizure disorder Female stress incontinence History of endocarditis Home Medications ?Medication ?Instructions ?Recorded ?Last Taken ?Type aspirin 81 mg chewable tablet 81 mg PO DAILY@0800 07/20/13 09/27/23 History hydroxychloroquine 200 mg tablet 1 tab PO BID 07/20/13 Unknown History ergocalciferol (vitamin D2) 1,250 50,000 unit PO DAILY 02/14/19 09/27/23 History mcg (50,000 unit) capsule mycophenolate mofetil 500 mg tablet 250 mg PO ONCE 05/14/21 09/27/23 History ferrous fumarate 324 mg (106 mg See Rx Instructions .Route 03/30/22 Unknown Rx iron) tablet (Ferrocite) .COMPLEX #60 tabs rosuvastatin 10 mg tablet 10 mg PO DAILY 06/03/22 Unknown History levetiracetam 1,000 mg tablet 1,000 mg PO BID #180 tabs 06/23/23 Unknown Rx acetaminophen 325 mg tablet 650 mg PO Q6H PRN PRN mild pain 12/12/23 Unknown History amiodarone 200 mg tablet mg PO 12/12/23 Unknown History metoprolol succinate 100 mg PO 12/12/23 Unknown History tablet,extended release 24 hr oxycodone 5 mg tablet 5 mg PO Q6H PRN PRN pain 12/12/23 Unknown History warfarin 4 mg tablet 4 mg PO DAILY 12/12/23 Unknown History Allergy/AdvReac Type Severity Reaction Status Date / Time ketorolac tromethamine (From Allergy Severe Shortness Verified 12/12/23 03:11 Toradol) of breath Family History Grandmother CVA (cerebral vascular accident) Uterine cancer Uncle Heart disease Myocardial infarction CAD (coronary artery disease) Hypertension Mother Diabetes Father No problems noted. Surgical History S/P hysterectomy H/O mechanical aortic valve replacement (11/05/23) History of tonsillectomy Social History household members: spouse Smoking Status: Former smoker how long ago did patient quit smoking: Smoked ~ 1 ppd x 5 years, quit 05/28/2008 second hand exposure: No alcohol intake: current alcohol intake frequency: holidays/special occasions only substance use type: does not use caffeine: Yes Type: coffee Number of servings: 2 seatbelt use: never Physical Exam Const alert, oriented x3 and no apparent distress General Appearance: cooperative HEENT normocephalic and head/scalp atraumatic Eyes PERRL and EOMs intact bilaterally Neck supple and No nodes Resp normal air movement and clear to auscultation bilaterally Cardio regular rate and regular rhythm GI soft to palpation, non-tender and non-distended Extremity General Extremity: edema Skin Skin Narrative: lacy erythema on arms, less so on legs. Sternal incision with two small shallow wounds, no redness, no purulence. Neuro CN's II-XII intact bilaterally Lab / Micro Data Attestation: I reviewed the patient's lab results. 12/14/23 03:13 12/14/23 03:13 Labs: Laboratory Results - last 24 hr 12/12/23 17:00: Diff Path Review Reviewed 12/13/23 03:57: ESR 4, Ferritin > 92730 H, C-React Prot Ext Range 222.00 H 12/13/23 23:30: Vancomycin Trough 13.4 12/14/23 03:13: WBC 2.2 L, RBC 3.61 L, Hgb 9.6 L, Hct 29.4 L, MCV 81.4, MCH 26.6 L, MCHC 32.7, RDW Std Deviation 43.8, RDW Coeff of Giselle 14.8 H, Plt Count 84 L, MPV 11.4, Immature Gran % (Auto) 0.900, Neut % (Auto) 87.9 H, Lymph % (Auto) 6.3 L, [place] % (Auto) 4.9, Eos % (Auto) 0.0, Baso % (Auto) 0.0, Absolute Neuts (auto) 2.0, Absolute Lymphs (auto) 0.14 L, Nucleated RBC % 0, Differential Comment SCANNED, Diff Path Review July, Platelet Estimate ADEQUATE, PT 52.4 H, INR 5.9 H*, Sodium 128 L, Potassium 3.7, Chloride 103, Carbon Dioxide 16.0 L, Anion Gap 9, BUN 16, Creatinine 1.04 H, Estim Creat Clear Calc 64.56, Est GFR (MDRD) Af Amer 72, Est GFR (MDRD) Non-Af 60, BUN/Creatinine Ratio 15.4, Glucose 129 H, Calcium 7.7 L, Total Bilirubin 0.60, AST 1451 H, ALT 671 H, Alkaline Phosphatase 210 H, Total Protein 5.0 L, Albumin 2.1 L, Globulin 2.9, Albumin/Globulin Ratio 0.7 L Micro: Microbiology 12/12/23 03:29 Blood Culture (Wb) - Right Wrist Blood Culture - Preliminary No growth in 48 hours. 12/12/23 03:54 Urine, Clean Catch Urine Culture - Final Culture exhibits no growth. Rhythm Strip Rhythm Strip: Sinus Rhythm Rate: 97 Ectopy: None
[2023-12-14 11:43] LABS: Pathologist Review Reviewed
--- NOTE | 2023-12-14 17:16 | EX.PCM.PN.GI ---
Subjective Subjective Patient underwent TTE today. She still having low-grade fevers. Blood pressures better today. Objective Data Objective Data Vital Signs: Vital Signs Temp Pulse Resp BP Pulse Ox O2 Del Method 99.1 F 96 22 H 113/66 96 Room Air 12/14/23 16:00 12/14/23 16:00 12/14/23 16:00 12/14/23 16:00 12/14/23 16:00 12/14/23 16:00 Oxygen Delivery Method Room Air Weight: 178 lb 12.718 oz Body Mass Index (BMI) 32.7 Intake & Output: Intake and Output for Last 24 Hours 12/12/23 12/13/23 12/14/23 23:59 23:59 23:59 Intake Total 4489.17 / 4489.17 940.7 / 940.7 Output Total 800 / 800 0 / 0 Balance 4489.17 / 4489.17 140.7 / 140.7 Lab / Micro Data 12/14/23 03:13 12/14/23 03:13 Labs: Laboratory Results - last 24 hr 12/13/23 03:57: ESR 4, Ferritin > 19171 H, C-React Prot Ext Range 222.00 H 12/13/23 23:30: Vancomycin Trough 13.4 12/14/23 03:13: WBC 2.2 L, RBC 3.61 L, Hgb 9.6 L, Hct 29.4 L, MCV 81.4, MCH 26.6 L, MCHC 32.7, RDW Std Deviation 43.8, RDW Coeff of Giselle 14.8 H, Plt Count 84 L, MPV 11.4, Immature Gran % (Auto) 0.900, Neut % (Auto) 87.9 H, Lymph % (Auto) 6.3 L, [place] % (Auto) 4.9, Eos % (Auto) 0.0, Baso % (Auto) 0.0, Absolute Neuts (auto) 2.0, Absolute Lymphs (auto) 0.14 L, Nucleated RBC % 0, Differential Comment SCANNED, Diff Path Review Reviewed, Platelet Estimate ADEQUATE, PT 52.4 H, INR 5.9 H*, Sodium 128 L, Potassium 3.7, Chloride 103, Carbon Dioxide 16.0 L, Anion Gap 9, BUN 16, Creatinine 1.04 H, Estim Creat Clear Calc 64.56, Est GFR (MDRD) Af Amer 72, Est GFR (MDRD) Non-Af 60, BUN/Creatinine Ratio 15.4, Glucose 129 H, Calcium 7.7 L, Total Bilirubin 0.60, AST 1451 H, ALT 671 H, Alkaline Phosphatase 210 H, Total Protein 5.0 L, Albumin 2.1 L, Globulin 2.9, Albumin/Globulin Ratio 0.7 L Micro: Microbiology 12/14/23 11:18 Mucosa - Nasopharyngeal Respiratory Panel (PCR) - Final 12/12/23 03:29 Blood Culture (Wb) - Right Wrist Blood Culture - Preliminary No growth in 48 hours. 12/12/23 03:54 Urine, Clean Catch Urine Culture - Final Culture exhibits no growth. 12/12/23 11:50 Stool Clostridioides difficile (PCR) - Final 12/12/23 11:10 Mucosa - Nose Coronavirus COVID-19 PCR - Final 12/12/23 03:54 Stool Stool Occult Blood (JOSIAS) - Final Occult Blood Positive Radiography Diagnostic Testing: Radiology Impression Echocardiogram 12/14/23 10:27 Interpretation Summary The left ventricular ejection fraction is 65 %. Normal LV size. Stage 2 diastolic dysfunction. Stable appearing mechanical aortic valve apparatus. Contrast injection was performed. There is no evidence of a mass or vegetation. This does not rule out endocarditis. Ordering Physician: Karlos Yousif Referring Physician: Esvin Hamlin Performed By: Nancy Sinclair, RDCS, RVT Rhythm Strip Rhythm Strip: Sinus Rhythm Rate: 97 Ectopy: None Physical Exam Const alert, oriented x3 and no apparent distress General Appearance: cooperative HEENT normocephalic and head/scalp atraumatic Eyes PERRL and EOMs intact bilaterally Neck supple and No nodes Resp normal air movement and clear to auscultation bilaterally Cardio regular rate and regular rhythm GI soft to palpation, non-tender and non-distended Extremity General Extremity: edema Skin Skin Narrative: lacy erythema on arms, less so on legs. Sternal incision with two small shallow wounds, no redness, no purulence. Neuro CN's II-XII intact bilaterally Assessment & Plan Assessment/Plan (1) Nausea vomiting and diarrhea: (2) Occult GI bleeding: (3) Warfarin-induced coagulopathy: (4) Pancytopenia: (5) Elevated liver enzymes: (6) Acute hyponatremia: PLAN: Plan The patient is a 48 y/o woman with a very complicated past medical history of ITP, history of TIA and recent diagnosis of lupus systemic erythematosus on hydroxychloroquine, mycophenolate Mycophenolate Mofetil and azathioprine. Along with a have a diagnosis of a seizure disorder who recently was discharged 11/11/23 from [facility] following elective aortic valve replacement 11/05/23 with upper J Hemisternotomy with mechanical AVR and aortoplasty. She currently has signs of SIRS and possibly sepsis with hypotension, leukopenia, thrombocytopenia, mild anemia and fevers status post open heart surgery with valve replacement. Biochemical workup also shows transaminitis with cholestatic hepatitis without jaundice. Imaging shows hepatosplenomegaly which was not apparent on her previous images even though she had previous episodes of for cytopenia possibly secondary to diagnosis of lupus. SIRS or sepsis possibly secondary to recent antibiotic usage, endocarditis, bacterial viral gastroenteritis in the setting of immunosuppression. Because she is on anticoagulation she cannot be tested for DIC. Hepatosplenomegaly and thrombocytopenia can occur after open heart surgery. Thrombocytopenia is more prominent expressly asked her cardiopulmonary bypass resulting in blood destruction, involution and platelet consumption. She is also at risk for HIT or drug-induced ITP being that the medicines that she is on. We are awaiting stool samples. In the interim I think she should be started on prophylactic vancomycin and Zosyn which I will start she did have 1 set of blood cultures. She did not have to return to this shortage. I believe that her transaminitis will likely get worse to hypotension and have a bilirubin will go up. I think this is likely secondary to ischemic hepatitis but he should check her for acute viral hepatitis including A, B, C, EBV and CMV due to her immunosuppression. Also she is at risk for new onset autoimmune hepatitis due to history of lupus which she is to be called lupus hepatitis so she should be checked for ANCA antibodies, IgG subclasses and anti-smooth muscle antibody and anti-smooth muscle kidney antibodies. No indication to stop anticoagulation or to start on heparin at this time. Consider TTE and YOHANA. I will continue to follow. 12/13/2023-patient is still very somnolent. She continues on IV antibiotics. Her pancytopenia is a little worse. Companied by elevated INR there is a possibility of DIC secondary to sepsis. She could be having a lupus flare as she has been off of some of her immunosuppressive's since she had surgery. That would explain the fevers and pancytopenia. It also could explain her new hepatosplenomegaly. I would consult rheumatology to see if immunosuppression is warranted for an acute lupus flare. -Elevated liver enzymes: She has cholestatic hepatitis which has a pattern of hepatocellular injury being that is mostly transaminitis. The differential diagnosis for that would be ischemic colitis, autoimmune hepatitis, Angel's disease, Tylenol toxicity. Recommendation is N-acetylcysteine. If her liver enzymes continue to increase as well as her pancytopenia continues to get worse then I would recommend transfer to a tertiary care center. I will make sure her biochemical labs are sent for autoimmune disease affecting the liver including IgG associated cholangitis and all the other diseases previously mentioned. -Her MELD for acute liver failure in a patient that likely has chronic liver disease developing hepatosplenomegaly is high at 26. That is with her INR being partly falsely elevated secondary to anticoagulation versus if she had a normal INR of 1 her MELD will be 6. Despite that I think she would benefit from N-acetylcysteine. Her anticoagulation would have to be stopped for liver biopsy to determine the true extent of injury. 12/14/2023-patient is doing a little bit better today. Still having low-grade fevers. Top temperature today was 100.1. She was seen by infectious disease today. I agree that she is pancytopenic possibly secondary to underlying SLE versus medications. She was given N-acetylcysteine for ischemic colitis. It is a very good sign that the bilirubin did not rise in the setting of increased INR. With her on anticoagulation is very difficult to assess for acute liver injury and full. Her albumin is not significantly depressed which is a very good sign indicating that her liver injury is not significant. Awaiting autoimmune workup. She has a low acute liver failure score of 10 which carries a 1.9% mortality in 3 months from acute liver injury. I will check an ammonia level. Continue to monitor INR and await viral hepatitis, autoimmune hepatitis, Angel's disease and ischemic hepatitis workup. Continue supportive care. Charges/Coding Visit Charges Inpatient E&M: 64827 Subs Hosp L3
[2023-12-14] MEDS: MethylPREDNISolone 1,000 MG in 0.9% Normal Saline (100mL Bag) 100 ML 100 MG IV (18:29)
[2023-12-14] MEDS: Atorvastatin Calcium 20 MG Tablet PO (20:19)
[2023-12-15] VITALS (9 sets, daily range): BP systolic 105–140; BP diastolic 54–97; PULSE 58–78; RESP 14–26; TEMP 36.1–36.8; O2SAT 96–100; BMI 32.5
[2023-12-15] MEDS: Vancomycin IV 1,000 MG/200 ML BAG 200 MG IV ×2 (00:27→12:41)
[2023-12-15] MEDS: 0.9% Saline Lock 10 ML Syringe IV ×2 (00:29→12:41)
[2023-12-15] MEDS: Piperacil/Tazobactam 3.375 GM in 0.9% Normal Saline (50mL MB+) 50 ML IV ×3 (05:45→21:20)
--- NOTE | 2023-12-15 06:45 | PCM.PN.INT ---
Assessment & Plan Assessment/Plan (1) Sepsis: (2) Gastroenteritis: PLAN: Plan RECOMMENDATIONS: 1. Antimicrobials per ID recommendations. 2. Continue steroids as ordered for an additional 2 days. 3. Encourage incentive spirometer use and mobilize patient as tolerated. 4. Complement C3/C4 are pending. 5. Continue to monitor INR. No need for vitamin K. 6. The patient is medically stable for transfer out of the intensive care unit. IMPRESSIONS: 1. Sepsis with unclear source The patient initially presented to the hospital with concerns for underlying gastroenteritis of potential viral etiology. C. difficile PCR was negative. The patient underwent recent valve surgery, which was complicated by incisional site infection requiring antimicrobials. She presented to the hospital with approximately 4 days of nausea and diarrhea. Despite broad-spectrum antimicrobials, the patient continued to experience fevers. No other definitive source of infection has yet to be identified. Therefore, it is certainly plausible that the patient could be experiencing an underlying lupus flare, as her baseline immunosuppression was placed on hold to facilitate her recent surgical procedure. Following a multidisciplinary discussion with infectious diseases, gastroenterology and the patient's primary digital marketer, the decision was made to place her on 1 g of Solu-Medrol for 3 days. 2. History of coronary artery disease/valvular heart disease status post recent mechanical aortic valve replacement/PAF Continue supportive measures as noted above. Continue to hold baseline anticoagulation. 3. Hepatosplenomegaly/pancytopenia/transaminitis Gastroenterology is currently following to assist with medical management. Autoimmune workup is currently pending. Hepatitis serology is pending. 4. History of SLE on immunosuppression/hypertension/hyperlipidemia/unspecified seizure disorder Complicates care, management, recovery and prognosis. Continue home medications as indicated. This note was generated with [employer] dictation software. It may contain incorrect words, spelling, and punctuation that were not noted in checking the note before signing. Subjective Subjective The patient was seen and examined at the bedside this morning. Events from the last 24 hours have been reviewed. The patient is currently afebrile, hemodynamically stable and maintaining appropriate oxygen saturations on room air. The patient remains pancytopenic. INR this morning was noted to be 3.9. Sodium has improved to 135. Creatinine is within normal limits. Transaminase levels are improving. Given the patient's negative infectious workup to date, and following a multidisciplinary discussion with gastroenterology, rheumatology and infectious diseases yesterday, the patient was initiated on steroids. The patient reported feeling well this morning. Her diarrhea has reportedly resolved. Objective Data Objective Data The patient's most recent lab work, culture data and imaging studies have all been personally reviewed. Stool for occult blood was positive on December 11. COVID PCR was negative. C. difficile PCR was negative. Blood and urine cultures have not demonstrated any growth to date. Respiratory viral panel was negative. Enteric panel was negative. Vital Signs: Vital Signs Temp Pulse Resp BP Pulse Ox O2 Del Method 98.3 F 78 24 H 107/74 96 Room Air 12/15/23 00:00 12/15/23 01:00 12/15/23 01:00 12/15/23 01:00 12/15/23 01:00 12/15/23 01:00 Oxygen Delivery Method Room Air Weight: 178 lb 12.718 oz Body Mass Index (BMI) 32.7 Intake & Output: Intake and Output for Last 24 Hours 12/13/23 12/14/23 12/15/23 23:59 23:59 23:59 Intake Total 940.7 / 940.7 2166.25 / 2166.25 50 / 50 Output Total 800 / 800 0 / 0 Balance 140.7 / 140.7 2166.25 / 2166.25 50 / 50 Lab / Micro Data Attestation: I reviewed the patient's lab results. 12/15/23 03:40 12/15/23 03:40 Labs: Laboratory Results - last 24 hr 12/14/23 03:13: Diff Path Review Reviewed 12/14/23 17:42: Ammonia 34.0 H Micro: Microbiology 12/14/23 13:15 Stool Enteric Bacteriology - Final 12/14/23 11:18 Mucosa - Nasopharyngeal Respiratory Panel (PCR) - Final 12/12/23 03:29 Blood Culture (Wb) - Right Wrist Blood Culture - Preliminary No growth in 48 hours. 12/12/23 03:54 Urine, Clean Catch Urine Culture - Final Culture exhibits no growth. 12/12/23 11:50 Stool Clostridioides difficile (PCR) - Final 12/12/23 11:10 Mucosa - Nose Coronavirus COVID-19 PCR - Final 12/12/23 03:54 Stool Stool Occult Blood (JOSIAS) - Final Occult Blood Positive Radiography Diagnostic Testing: Radiology Impression Echocardiogram 09/24/24 10:27 Interpretation Summary The left ventricular ejection fraction is 65 %. Normal LV size. Stage 2 diastolic dysfunction. Stable appearing mechanical aortic valve apparatus. Contrast injection was performed. There is no evidence of a mass or vegetation. This does not rule out endocarditis. Ordering Physician: Karlos Yousif Referring Physician: Esvin Hamlin Performed By: Nancy Sinclair, AVI, RVT Rhythm Strip Rhythm Strip: Sinus Rhythm Rate: 97 Ectopy: None Physical Exam Const alert, oriented x3 and no apparent distress Constitutional Narrative: Sitting in bedside recliner. General Appearance: cooperative HEENT normocephalic and head/scalp atraumatic Eyes PERRL, EOMs intact bilaterally and conjunctivae normal Neck supple General: trachea midline Chest inspection of chest normal Resp normal respiratory effort Auscultation: wheezes; Negative for rales or rhonchi Cardio regular rate and regular rhythm Heart Sounds: murmur other (Audible click) GI soft to palpation and non-tender Extremity no clubbing, cyanosis or edema Skin Skin Narrative: Improving erythematous rash over trunk and face Neuro oriented x3, CN's II-XII intact bilaterally and moves all extremities Psych Mood & Affect: flat affect Charges/Coding Visit Charges Inpatient E&M: 20372 Subs Hosp L3
--- NOTE | 2023-12-15 07:08 | PN.HOSP_ITS ---
Reason for Visit Reason for Visit: Diagnoses Sepsis, unspecified organism (12/12/23) Other pancytopenia (12/12/23) Hemorrhagic disorder due to extrinsic circulating anticoagulants (12/12/23) Hypo-osmolality and hyponatremia (12/12/23) Noninfective gastroenteritis and colitis, unspecified (12/12/23) Nausea with vomiting, unspecified (12/12/23) Other fecal abnormalities (12/12/23) Diarrhea, unspecified (12/12/23) Abnormal levels of other serum enzymes (12/12/23) Adverse effect of anticoagulants, initial encounter (12/12/23) Presence of prosthetic heart valve (12/12/23) Subjective Subjective Feeling better. Objective Data Objective Data Vital Signs: Vital Signs Temp Pulse Resp BP Pulse Ox O2 Del Method 36.8 C 78 24 H 107/74 96 Room Air 12/15/23 00:00 12/15/23 01:00 12/15/23 01:00 12/15/23 01:00 12/15/23 01:00 12/15/23 01:00 Oxygen Delivery Method Room Air Weight: 80.9 kg Body Mass Index (BMI) 32.5 Intake & Output: Intake and Output for Last 24 Hours 12/13/23 12/14/23 12/15/23 23:59 23:59 23:59 Intake Total 940.7 / 940.7 2166.25 / 2166.25 50 / 50 Output Total 800 / 800 0 / 0 Balance 140.7 / 140.7 2166.25 / 2166.25 50 / 50 Lab / Micro Data 12/15/23 03:40 12/15/23 03:40 Labs: Laboratory Results - last 24 hr 12/14/23 03:13: Diff Path Review Reviewed 12/14/23 17:42: Ammonia 34.0 H Micro: Microbiology 12/14/23 13:15 Stool Enteric Bacteriology - Final 12/14/23 11:18 Mucosa - Nasopharyngeal Respiratory Panel (PCR) - Final 12/12/23 03:29 Blood Culture (Wb) - Right Wrist Blood Culture - Preliminary No growth in 48 hours. 12/12/23 03:54 Urine, Clean Catch Urine Culture - Final Culture exhibits no growth. 12/12/23 11:50 Stool Clostridioides difficile (PCR) - Final 12/12/23 11:10 Mucosa - Nose Coronavirus COVID-19 PCR - Final 12/12/23 03:54 Stool Stool Occult Blood (JOSIAS) - Final Occult Blood Positive Radiography Diagnostic Testing: Radiology Impression Echocardiogram 12/14/23 10:27 Interpretation Summary The left ventricular ejection fraction is 65 %. Normal LV size. Stage 2 diastolic dysfunction. Stable appearing mechanical aortic valve apparatus. Contrast injection was performed. There is no evidence of a mass or vegetation. This does not rule out endocarditis. Ordering Physician: Karlos Yousif Referring Physician: Esvin Hamlin Performed By: Nancy Sinclair RDCS, RVT Rhythm Strip Rhythm Strip: Sinus Rhythm Rate: 97 Ectopy: None Physical Exam Const alert and no apparent distress Constitutional Narrative: up in chair. HEENT head/scalp atraumatic and moist oral mucous membranes Resp normal respiratory effort, no retractions, no use of accessory muscles and clear to auscultation bilaterally Cardio regular rate, regular rhythm, S1 normal heart sound and S2 normal heart sound GI normal to inspection, nondistended, normoactive bowel sounds, soft to palpation, non-tender and non-distended Extremity normal to inspection Neuro Sensorium / Orientation: awake and alert Assessment & Plan Assessment/Plan (1) Nausea vomiting and diarrhea: (2) Occult GI bleeding: (3) Warfarin-induced coagulopathy: PLAN: Plan SIRS * less likely sepsis. * POA (see Dr. Deluca's note for criteria) * 2/2 acute lupus flare. * C. diff, COVID 19 negative. BCx UCx pending * on pip/tazo and vanc * ID consult. * Pulm dw her presentation team member and pt has been started on 1g methypred for 3 days. Transaminitis * suspected due to ischemic hepatitis from hypotension. * Improving: AST 694 to 1459 to 1451 to 735, ALT 283 to 558 to 671 to 596 (previously normal) * CT showed no evidence of cholecystitis * Acute hepatitis profile with hep A IgM, hep B surface antigen, hep B core antigen, hep C antibody were negative, pending: CMV, EBV, ANCA, IgI ASmAb, CMV, EBV. ABLA * Initially Hg dropped from 11.4 to 9.6. Currently stable. * Heme positive stools. * Warfarin was initially held given anemia, heme positive stools and coagulopathy. will resume. * GI on consult. Thrombocytopenia * stable. * likely 2/2 sepsis. s/p Recent AVR, mechanical * INR 5.9 on 12/13. Monitor. Received a 1x dose of vitamin K (5mg) on 12/13. Chronic conditions: * PAF: Noted postoperatively following recent valve surgery, continue amiodarone, metoprolol as BP allows, once appropriate INR transition to heparin drip given acute presentation as noted. * Hypertension: Continue metoprolol as BP allows, hold Lasix given significant GI losses with readdition once appropriate. * Hyperlipidemia: Given transaminitis will temporally hold statin therapy. * History CVA/TIA: Noted during a in 1997 with no residual deficits, holding aspirin, once appropriate INR transition to heparin drip given acute presentation as noted, temporally holding statin therapy given transaminitis, continue hypertensive regimen as BP allows with adjustment as noted. * Seizure disorder: We will continue patient home Keppra regimen. * SLE, antiphospholipid antibody syndrome: Outpatient on CellCept, Plaquenil and Imuran. patient recently resumed on her imuran as it was held for 4 weeks following recent operative intervention. Given her current presentation #1 will hold patient mycophenolate and Imuran therapy. * Obesity class I: complicates care and recovery. VTE prophylaxis: not indicated as pt is anticoagulated. Charges/Coding Visit Charges Inpatient E&M: 30529 Subs Hosp L2
[2023-12-15 07:09] LABS: Anti-Smooth Muscle ABS 9 Units (0-19); Cytoplasmic Ab (C-ANCA) <1:20 titer (Neg:<1:20); HEPATITIS B SURFACE AG Negative (Negative); Hep C Antibodies Non Reactive (Non Reactive); Hepatitis A IgM Antibody Negative (Negative); Hepatitis B Core AB IgM Negative (Negative); Perinuclear Ab (P-ANCA) <1:20 titer (Neg:<1:20)
[2023-12-15 07:13] LABS: Absolute Lymphocyte Count 0.18 X10^3/uL (0.83-4.51); Absolute Neutrophil Count 1.3 X10^3/uL (2.0-7.7); Basophil# 0.01 X10^3/uL; Basophil% 0.6 % (0-1); Hematocrit 29.8 % (37-47); Hemoglobin 9.8 g/dL (12.0-15.0); Lymphocyte # 0.18 X10^3/ul (0.83-4.51); Lymphocyte % 11.5 % (19-41); Mean Corp Hgb Conc 32.9 g/dL (32-36); Mean Corpuscular Hgb 27.1 pg (27.0-32.0); Mean Corpuscular Volume 82.5 fL (81-99); Mean Platelet Vol. 12.3 fl (6.2-12.0); Monocyte# 0.08 X10^3/uL; Monocyte% 5.1 % (0-10); NRBC Flagged by Analyzer 0 % (0-5); Neutrophil # 1.29 X10^3/uL (2.7-7.7); Neutrophil % 82.8 % (47-70); POSITIVE DIFFERENTIAL YES; POSITIVE MORPHOLOGY YES; Platelet Count 111 K/mm3 (150-450); RBC Distribution Width CV 15.1 % (11.6-14.6); RBC Distribution Width SD 45.9 fl (35.1-43.9); Red Blood Count 3.61 M/mm3 (4.2-5.4); White Blood Count 1.6 K/mm3 (4.4-11.0)
[2023-12-15 07:22] LABS: Differential Indicated SCAN CRITERIA MET
[2023-12-15 07:41] LABS: International Normalized Ratio 3.9; Prothrombin Time (Protime)PT. 38.2 SECONDS (11.7-14.9)
[2023-12-15 07:48] LABS: ALB/GLOB Ratio 0.8 RATIO (0.9-2.4); AST(SGOT) 735 U/L (15-37); Alanine Aminotransfer ALT/SGPT 596 U/L (13-56); Albumin, Serum 2.4 g/dL (3.2-5.0); Alkaline Phosphatase 278 U/L (45-117); Anion Gap 6 (5-15); BUN 17 mg/dL (7-18); BUN/Creat Ratio 19.7 RATIO (10-20); Calcium,Total 8.5 mg/dL (8.5-10.1); Chloride 109 mmol/L (98-107); Creatinine, Serum 0.86 mg/dL (0.55-1.02); EST Glomerular Filtration Rate 74 mL/min (>60); Est Glom Filt Rate - Afr Amer 89 mL/min (>60); Estimated Creatinine Clearance 77.97 ml/min; Glucose 150 mg/dL (74-106); Protein, Total 5.4 g/dL (6.4-8.2); Sodium Level 135 mmol/L (136-145)
[2023-12-15 07:55] LABS: Differential Comment SCANNED
[2023-12-15] MEDS: levETIRAcetam 1,000 MG Tablet 1000 MG PO ×2 (10:10→21:20)
[2023-12-15] MEDS: Hydroxychloroquine 200 MG Tablet PO ×2 (10:10→21:20)
[2023-12-15] MEDS: Ferrous Sulfate 325 MG Tablet PO (10:10)
[2023-12-15] MEDS: Amiodarone 200 MG Tablet PO (10:10)
--- NOTE | 2023-12-15 10:36 | CASEMGMT ---
THONG CM to pt room at this time to discuss DC planning. At this time, the pt states that she still feels safe discharging home once she is medically ready and denies the need for any homegoing needs. Pt denies further questions or concerns at this time. The pt states that she may be getting discharged on Wednesday. CM to follow.
[2023-12-15 12:03] LABS: Vancomycin, Trough Level 18.6 ug/mL (5.0-15.0)
[2023-12-15 12:10] LABS: Complement C3 64 mg/dL (82-167)
--- NOTE | 2023-12-15 12:29 | PCM.RX.CS ---
Consult Antibiotic Management Pharmacy has been consulted to manage selected antibiotic: Vancomycin Type of Intervention Type of Consult: Follow-up Suspected Infection Suspected Infection: Sepsis Prior Doses of Antibiotics Prior Doses of Antibiotics Received/Current Regimen: Presently on 1000mg iv q12h. Labs Labs: Sodium 135 mmol/L (136-145) L 12/15/23 03:40 Potassium 4.0 mmol/L (3.5-5.1) 12/15/23 03:40 Chloride 109 mmol/L (98-107) H 12/15/23 03:40 Carbon Dioxide 20.0 mmol/L (21.0-32.0) L 12/15/23 03:40 Anion Gap 6 (5-15) 12/15/23 03:40 BUN 17 mg/dL (7-18) 12/15/23 03:40 Creatinine 0.86 mg/dL (0.55-1.02) 12/15/23 03:40 Est GFR (MDRD) Af Amer 89 mL/min (>60) 12/15/23 03:40 Est GFR (MDRD) Non-Af 74 mL/min (>60) 12/15/23 03:40 BUN/Creatinine Ratio 19.7 RATIO (10-20) 12/15/23 03:40 Glucose 150 mg/dL (74-106) H 12/15/23 03:40 Vancomycin Trough 18.6 ug/mL (5.0-15.0) H 12/15/23 11:30 Microbiology Microbiology: Microbiology 12/14/23 13:15 Stool Enteric Bacteriology - Final 12/14/23 11:18 Mucosa - Nasopharyngeal Respiratory Panel (PCR) - Final 12/12/23 03:29 Blood Culture (Wb) - Right Wrist Blood Culture - Preliminary No growth in 48 hours. 12/12/23 03:54 Urine, Clean Catch Urine Culture - Final Culture exhibits no growth. 12/12/23 11:50 Stool Clostridioides difficile (PCR) - Final 12/12/23 11:10 Mucosa - Nose Coronavirus COVID-19 PCR - Final 12/12/23 03:54 Stool Stool Occult Blood (JOSIAS) - Final Occult Blood Positive Dosing Weight Weight used for dosin.3 kg Estimated Creatinine Clearance Estimated Creatinine Clearance: 78ml/min Goal Trough Goal Trough: 15-20 mcg/mL Pharmacy Plan for Drug Dosing Pharmacy Plan for Drug Dosing: Trough today ~11 hrs post dose was 18.6 and in therapeutic range of 15-20 mcg/ml. Recommend continuing same dose with new trough before another 4th dose. Pharmacy Service will continue to monitor and adjust dosing as required. Follow-Up Labs Follow-Up Labs: Trough: Vancomycin (9.27.24 @9086)
--- NOTE | 2023-12-15 13:22 | PN.ID_ITS ---
Physical Exam Narrative Feeling much better, no fever, no cough, no n/v/d. Const alert and no apparent distress General Appearance: cooperative Resp normal air movement and clear to auscultation bilaterally Cardio regular rate and regular rhythm GI soft to palpation, non-tender and non-distended Skin Skin Narrative: rash on arms and face ID ID: Route of nutrition/ use of supplements: [] Nutritional Intake: [] IV Site: [] Leyva Catheter: [] Assessment & Plan Assessment/Plan (1) Sepsis: PLAN: Cxs neg so far. No fever last night. Covid neg, cdiff neg. Pancytopenia, but not neutropenic. Had been off immunosuppression for her [facility] heart valve replacement. Transaminitis much improved. On empiric vanc/zosyn. Neg resp pcr panel and stool pcr panel. Lupus flare is possible explanation for her presentation. Now on steroid burst. Sternal wounds do not appear infected. Will stop vanc today. Will follow (2) Gastroenteritis: (3) Elevated liver enzymes: (4) H/O mechanical aortic valve replacement: (5) Pancytopenia:
[2023-12-15 15:08] LABS: Anti-Centromere B Ab <0.2 AI (0.0-0.9); Anti-Chromatin 0.2 AI (0.0-0.9); Anti-Jo <0.2 AI (0.0-0.9); Anti-Scleroderma-70 AB <0.2 AI (0.0-0.9); Anti-dsDNA Ab 3 IU/mL (0-9); RNP Ab 0.2 AI (0.0-0.9); SJOGREN'S Anti-SS-A test < 0.2 AI (0.0-0.9); SJOGREN'S Anti-SS-B test < 0.2 AI (0.0-0.9); Smith Ab <0.2 AI (0.0-0.9)
[2023-12-15 17:07] LABS: CMV Acute Antibody IgM < 30.0 AU/mL (0.0-29.9); CMV Antibody IgG < 0.60 U/mL (0.00-0.59); Ceruloplasmin 26.4 mg/dL (19.0-39.0); EBV Acute VCA IgM < 36.0 U/mL (0.0-35.9); EBV-VCA IgG > 600.0 U/mL (0.0-17.9); IgG, Quant 954 mg/dL (586-1602); Immunoglobulin G, Subclass 1 497 mg/dL (248-810); Immunoglobulin G, Subclass 2 230 mg/dL (130-555); Immunoglobulin G, Subclass 3 74 mg/dL (15-102); Immunoglobulin G, Subclass 4 9 mg/dL (2-96); QNTFERON TB Mitogen Value 2.29 IU/mL (.); QNTFERON TB Nil Value 1.89 IU/mL (.); QNTFERON TB1+ Ag Value 2.06 IU/mL (.); QNTFERON TB2+ Ag Value 2.11 IU/mL (.); QNTIFERON TB Positive Criteria Indeterminate (Negative); V-Zoster Virus Acute IgM < 0.91 index (0.00-0.90)
--- NOTE | 2023-12-15 18:54 | EX.PCM.PN.GI ---
Subjective Subjective Patient is starting to feel a lot better. She continues to be afebrile. Objective Data Objective Data Vital Signs: Vital Signs Temp Pulse Resp BP Pulse Ox O2 Del Method 97.6 F L 74 18 140/88 H 97 Room Air 12/15/23 15:15 12/15/23 15:15 12/15/23 15:15 12/15/23 15:15 12/15/23 15:15 12/15/23 15:15 Oxygen Delivery Method Room Air Weight: 178 lb 5.663 oz Body Mass Index (BMI) 32.5 Intake & Output: Intake and Output for Last 24 Hours 12/13/23 12/14/23 12/15/23 23:59 23:59 23:59 Intake Total 940.7 / 940.7 2166.25 / 2166.25 1230 / 1230 Output Total 800 / 800 0 / 0 Balance 140.7 / 140.7 2166.25 / 2166.25 1230 / 1230 Lab / Micro Data 12/15/23 03:40 12/15/23 03:40 Labs: Laboratory Results - last 24 hr 12/13/23 10:15: c-ANCA Antibody <1:20, Atypical p-ANCA <1:20, p-ANCA Antibody <1:20, Anti-Smooth Muscle Ab 9, Hepatitis A IgM Ab Negative, Hep Bs Antigen Negative, Hep B Core IgM Ab Negative, Hepatitis C Ab (EIA) Non Reactive, Hep C Ab Comment Comment 12/13/23 14:45: GIULIANA-1 Antibody <0.2, SS-A/Ro IgG Antibody < 0.2, SS-B/La IgG Antibody < 0.2, Sm (Pimentel) Antibody <0.2, SOFTWARE ENGINEERING SPECIALIST Antibody 0.2, Scl-70 Scleroderma Ab <0.2, Double Strand DNA Ab 3, Antichromatin Antibodies 0.2, Centromere B Antibody <0.2 12/13/23 19:45: Ceruloplasmin 26.4, IgG Total 954, IgG1 497, IgG2 230, IgG3 74, IgG4 9, CMV IgG Ab < 0.60, CMV IgM Ab < 30.0, EBV Capsid Ag IgG Ab > 600.0 H, EBV Capsid Ag IgM Ab < 36.0, EBV Nuclear Ag IgG Ab 597.0 H, EBV Antibody Interp Comment, TB Test (QFT) Nil 1.89, TB Test (QFT) Mitogen 2.29, TB Test (QFT) Ag 1 2.06, TB Test (QFT) Ag 2 2.11, TB Test (QFT) Comment, TB Positive Criteria Indeterminate H, VZV IgM Antibody < 0.91 12/13/23 23:30: Complement C3 64 L, Complement C4 23 12/15/23 03:40: WBC 1.6 L, RBC 3.61 L, Hgb 9.8 L, Hct 29.8 L, MCV 82.5, MCH 27.1, MCHC 32.9, RDW Std Deviation 45.9 H, RDW Coeff of Giselle 15.1 H, Plt Count 111 L, MPV 12.3 H, Immature Gran % (Auto) 0.000, Neut % (Auto) 82.8 H, Lymph % (Auto) 11.5 L, [place] % (Auto) 5.1, Eos % (Auto) 0.0, Baso % (Auto) 0.6, Absolute Neuts (auto) 1.3 L, Absolute Lymphs (auto) 0.18 L, Nucleated RBC % 0, Differential Comment SCANNED, PT 38.2 H, INR 3.9, Sodium 135 L, Potassium 4.0, Chloride 109 H, Carbon Dioxide 20.0 L, Anion Gap 6, BUN 17, Creatinine 0.86, Estim Creat Clear Calc 77.97, Est GFR (MDRD) Af Amer 89, Est GFR (MDRD) Non-Af 74, BUN/Creatinine Ratio 19.7, Glucose 150 H, Calcium 8.5, Total Bilirubin 0.60, AST 735 H, ALT 596 H, Alkaline Phosphatase 278 H, Total Protein 5.4 L, Albumin 2.4 L, Globulin 3.0, Albumin/Globulin Ratio 0.8 L 12/15/23 11:30: Vancomycin Trough 18.6 H Micro: Microbiology 12/14/23 13:15 Stool Enteric Bacteriology - Final 12/14/23 11:18 Mucosa - Nasopharyngeal Respiratory Panel (PCR) - Final 12/12/23 03:29 Blood Culture (Wb) - Right Wrist Blood Culture - Preliminary No growth in 48 hours. 12/12/23 03:54 Urine, Clean Catch Urine Culture - Final Culture exhibits no growth. 12/12/23 11:50 Stool Clostridioides difficile (PCR) - Final 12/12/23 11:10 Mucosa - Nose Coronavirus COVID-19 PCR - Final 12/12/23 03:54 Stool Stool Occult Blood (JOSIAS) - Final Occult Blood Positive Rhythm Strip Rhythm Strip: Sinus Rhythm Rate: 97 Ectopy: None Physical Exam Narrative Feeling much better, no fever, no cough, no n/v/d. 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 Along with a have a diagnosis of a seizure disorder who recently was discharged 11/11/23 from [facility] following elective aortic valve replacement 11/05/23 with upper J Hemisternotomy with mechanical AVR and aortoplasty. She currently has signs of SIRS and possibly sepsis with hypotension, leukopenia, thrombocytopenia, mild anemia and fevers status post open heart surgery with valve replacement. Biochemical workup also shows transaminitis with cholestatic hepatitis without jaundice. Imaging shows hepatosplenomegaly which was not apparent on her previous images even though she had previous episodes of for cytopenia possibly secondary to diagnosis of lupus. SIRS or sepsis possibly secondary to recent antibiotic usage, endocarditis, bacterial viral gastroenteritis in the setting of immunosuppression. Because she is on anticoagulation she cannot be tested for DIC. Hepatosplenomegaly and thrombocytopenia can occur after open heart surgery. Thrombocytopenia is more prominent expressly asked her cardiopulmonary bypass resulting in blood destruction, involution and platelet consumption. She is also at risk for HIT or drug-induced ITP being that the medicines that she is on. We are awaiting stool samples. In the interim I think she should be started on prophylactic vancomycin and Zosyn which I will start she did have 1 set of blood cultures. She did not have to return to this shortage. I believe that her transaminitis will likely get worse to hypotension and have a bilirubin will go up. I think this is likely secondary to ischemic hepatitis but he should check her for acute viral hepatitis including A, B, C, EBV and CMV due to her immunosuppression. Also she is at risk for new onset autoimmune hepatitis due to history of lupus which she is to be called lupus hepatitis so she should be checked for ANCA antibodies, IgG subclasses and anti-smooth muscle antibody and anti-smooth muscle kidney antibodies. No indication to stop anticoagulation or to start on heparin at this time. Consider TTE and YOHANA. I will continue to follow. 12/13/2023-patient is still very somnolent. She continues on IV antibiotics. Her pancytopenia is a little worse. Companied by elevated INR there is a possibility of DIC secondary to sepsis. She could be having a lupus flare as she has been off of some of her immunosuppressive's since she had surgery. That would explain the fevers and pancytopenia. It also could explain her new hepatosplenomegaly. I would consult rheumatology to see if immunosuppression is warranted for an acute lupus flare. -Elevated liver enzymes: She has cholestatic hepatitis which has a pattern of hepatocellular injury being that is mostly transaminitis. The differential diagnosis for that would be ischemic colitis, autoimmune hepatitis, Angel's disease, Tylenol toxicity. Recommendation is N-acetylcysteine. If her liver enzymes continue to increase as well as her pancytopenia continues to get worse then I would recommend transfer to a tertiary care center. I will make sure her biochemical labs are sent for autoimmune disease affecting the liver including IgG associated cholangitis and all the other diseases previously mentioned. -Her MELD for acute liver failure in a patient that likely has chronic liver disease developing hepatosplenomegaly is high at 26. That is with her INR being partly falsely elevated secondary to anticoagulation versus if she had a normal INR of 1 her MELD will be 6. Despite that I think she would benefit from N-acetylcysteine. Her anticoagulation would have to be stopped for liver biopsy to determine the true extent of injury. 12/14/2023-patient is doing a little bit better today. Still having low-grade fevers. Top temperature today was 100.1. She was seen by infectious disease today. I agree that she is pancytopenic possibly secondary to underlying SLE versus medications. She was given N-acetylcysteine for ischemic colitis. It is a very good sign that the bilirubin did not rise in the setting of increased INR. With her on anticoagulation is very difficult to assess for acute liver injury and full. Her albumin is not significantly depressed which is a very good sign indicating that her liver injury is not significant. Awaiting autoimmune workup. She has a low acute liver failure score of 10 which carries a 1.9% mortality in 3 months from acute liver injury. I will check an ammonia level. Continue to monitor INR and await viral hepatitis, autoimmune hepatitis, Angel's disease and ischemic hepatitis workup. Continue supportive care. 12/15/2023-patient's LFTs are drastically improving after N-acetylcysteine and steroids. INR is at 3.9. She is not have any abdominal pain at this time. Her anti-smooth muscle antibody is pending for autoimmune hepatitis. Antimitochondrial antibodies pending. Her EBV IgM was negative. EBV IgG is positive. CMV IgG is positive. IgG4 levels are normal. I suspect that this could all be secondary to lupus flare. She is on Solu-Medrol 1 g x 3 days. Continue to monitor LFTs. I do not think she needs a liver biopsy at this time. Charges/Coding Visit Charges Inpatient E&M: 51263 Subs Hosp L3
[2023-12-15] MEDS: MethylPREDNISolone 1,000 MG in 0.9% Normal Saline (100mL Bag) 100 ML 100 MG IV (19:04)
[2023-12-15] MEDS: Atorvastatin Calcium 20 MG Tablet PO (21:21)
[2023-12-16 03:00] VITALS: BP 140/77; PULSE 58; RESP 16; TEMP 36.1; O2SAT 100
[2023-12-16] MEDS: Piperacil/Tazobactam 3.375 GM in 0.9% Normal Saline (50mL MB+) 50 ML IV (05:55)
[2023-12-16 06:00] VITALS: BMI 31.6
[2023-12-16 06:20] LABS: Absolute Lymphocyte Count 0.55 X10^3/uL (0.83-4.51); Absolute Neutrophil Count 2.7 X10^3/uL (2.0-7.7); Basophil# 0.01 X10^3/uL; Basophil% 0.3 % (0-1); Hematocrit 27.8 % (37-47); Lymphocyte # 0.55 X10^3/ul (0.83-4.51); Lymphocyte % 16.1 % (19-41); Mean Corp Hgb Conc 32.4 g/dL (32-36); Mean Corpuscular Hgb 26.7 pg (27.0-32.0); Mean Corpuscular Volume 82.5 fL (81-99); Monocyte# 0.19 X10^3/uL; Monocyte% 5.6 % (0-10); NRBC Flagged by Analyzer 0 % (0-5); Neutrophil # 2.65 X10^3/uL (2.7-7.7); Neutrophil % 77.4 % (47-70); POSITIVE DIFFERENTIAL YES; Platelet Count 127 K/mm3 (150-450); RBC Distribution Width CV 15.4 % (11.6-14.6); RBC Distribution Width SD 46.4 fl (35.1-43.9); Red Blood Count 3.37 M/mm3 (4.2-5.4); White Blood Count 3.4 K/mm3 (4.4-11.0)
[2023-12-16 06:31] LABS: Prothrombin Time (Protime)PT. 40.2 SECONDS (11.7-14.9)
[2023-12-16 06:57] LABS: ALB/GLOB Ratio 0.8 RATIO (0.9-2.4); AST(SGOT) 311 U/L (15-37); Alanine Aminotransfer ALT/SGPT 430 U/L (13-56); Albumin, Serum 2.4 g/dL (3.2-5.0); Alkaline Phosphatase 349 U/L (45-117); Anion Gap 7 (5-15); BUN 23 mg/dL (7-18); BUN/Creat Ratio 28.8 RATIO (10-20); Calcium,Total 8.5 mg/dL (8.5-10.1); Chloride 110 mmol/L (98-107); EST Glomerular Filtration Rate 81 mL/min (>60); Est Glom Filt Rate - Afr Amer 98 mL/min (>60); Estimated Creatinine Clearance 82.56 ml/min; Glucose 157 mg/dL (74-106); Potassium 3.8 mmol/L (3.5-5.1); Protein, Total 5.4 g/dL (6.4-8.2); Sodium Level 135 mmol/L (136-145)
[2023-12-16 07:05] LABS: International Normalized Ratio 4.2
[2023-12-16 08:29] VITALS: BP 138/73; PULSE 55; RESP 16; TEMP 36.4; O2SAT 100
--- NOTE | 2023-12-16 08:51 | PCM.PN.HOSP ---
Reason for Visit Reason for Visit: Diagnoses Sepsis, unspecified organism (12/12/23) Other pancytopenia (12/12/23) Hemorrhagic disorder due to extrinsic circulating anticoagulants (12/12/23) Hypo-osmolality and hyponatremia (12/12/23) Noninfective gastroenteritis and colitis, unspecified (12/12/23) Nausea with vomiting, unspecified (12/12/23) Other fecal abnormalities (12/12/23) Diarrhea, unspecified (12/12/23) Abnormal levels of other serum enzymes (12/12/23) Adverse effect of anticoagulants, initial encounter (12/12/23) Presence of prosthetic heart valve (12/12/23) Subjective Subjective Feeling well. No events. Objective Data Objective Data Vital Signs: Vital Signs Temp Pulse Resp BP Pulse Ox O2 Del Method 36.4 C L 55 L 16 138/73 H 100 Room Air 12/16/23 08:29 12/16/23 08:29 12/16/23 08:29 12/16/23 08:29 12/16/23 08:29 12/16/23 08:29 Oxygen Delivery Method Room Air Weight: 78.557 kg Body Mass Index (BMI) 31.6 Intake & Output: Intake and Output for Last 24 Hours 12/14/23 12/15/23 12/16/23 23:59 23:59 23:59 Intake Total 2166.25 / 2166.25 1346 / 1346 550 / 550 Output Total 0 / 0 Balance 2166.25 / 2166.25 1346 / 1346 550 / 550 Lab / Micro Data 12/16/23 05:53 12/16/23 05:53 Labs: Laboratory Results - last 24 hr 12/13/23 14:45: GIULIANA-1 Antibody <0.2, SS-A/Ro IgG Antibody < 0.2, SS-B/La IgG Antibody < 0.2, Sm (Pimentel) Antibody <0.2, CHECK VIEWER Antibody 0.2, Scl-70 Scleroderma Ab <0.2, Double Strand DNA Ab 3, Antichromatin Antibodies 0.2, Centromere B Antibody <0.2 12/13/23 19:45: Ceruloplasmin 26.4, IgG Total 954, IgG1 497, IgG2 230, IgG3 74, IgG4 9, CMV IgG Ab < 0.60, CMV IgM Ab < 30.0, EBV Capsid Ag IgG Ab > 600.0 H, EBV Capsid Ag IgM Ab < 36.0, EBV Nuclear Ag IgG Ab 597.0 H, EBV Antibody Interp Comment, TB Test (QFT) Nil 1.89, TB Test (QFT) Mitogen 2.29, TB Test (QFT) Ag 1 2.06, TB Test (QFT) Ag 2 2.11, TB Test (QFT) Comment, TB Positive Criteria Indeterminate H, VZV IgM Antibody < 0.91 12/13/23 23:30: Complement C3 64 L, Complement C4 12/15/23 11:30: Vancomycin Trough 18.6 H 12/16/23 05:53: WBC 3.4 L, RBC 3.37 L, Hgb 9.0 L, Hct 27.8 L, MCV 82.5, MCH 26.7 L, MCHC 32.4, RDW Std Deviation 46.4 H, RDW Coeff of Giselle 15.4 H, Plt Count 127 L, MPV 12.0, Immature Gran % (Auto) 0.600, Neut % (Auto) 77.4 H, Lymph % (Auto) 16.1 L, [place] % (Auto) 5.6, Eos % (Auto) 0.0, Baso % (Auto) 0.3, Absolute Neuts (auto) 2.7, Absolute Lymphs (auto) 0.55 L, Nucleated RBC % 0, PT 40.2 H, INR 4.2 H*, Sodium 135 L, Potassium 3.8, Chloride 110 H, Carbon Dioxide 18.0 L, Anion Gap 7, BUN 23 H, Creatinine 0.80, Estim Creat Clear Calc 82.56, Est GFR (MDRD) Af Amer 98, Est GFR (MDRD) Non-Af 81, BUN/Creatinine Ratio 28.8 H, Glucose 157 H, Calcium 8.5, Total Bilirubin 0.70, AST 311 H, ALT 430 H, Alkaline Phosphatase 349 H, Total Protein 5.4 L, Albumin 2.4 L, Globulin 3.0, Albumin/Globulin Ratio 0.8 L Micro: Microbiology 12/14/23 13:15 Stool Enteric Bacteriology - Final 12/14/23 11:18 Mucosa - Nasopharyngeal Respiratory Panel (PCR) - Final 12/12/23 03:29 Blood Culture (Wb) - Right Wrist Blood Culture - Preliminary No growth in 48 hours. 12/12/23 03:54 Urine, Clean Catch Urine Culture - Final Culture exhibits no growth. 12/12/23 11:50 Stool Clostridioides difficile (PCR) - Final 12/12/23 11:10 Mucosa - Nose Coronavirus COVID-19 PCR - Final 12/12/23 03:54 Stool Stool Occult Blood (JOSIAS) - Final Occult Blood Positive Rhythm Strip Rhythm Strip: Sinus Rhythm Rate: 97 Ectopy: None Physical Exam Const alert and no apparent distress Constitutional Narrative: up in chair. Resp normal respiratory effort, no retractions, no use of accessory muscles and clear to auscultation bilaterally Cardio regular rate, regular rhythm, S1 normal heart sound and S2 normal heart sound Assessment & Plan Assessment/Plan (1) Nausea vomiting and diarrhea: (2) Occult GI bleeding: (3) Warfarin-induced coagulopathy: PLAN: Plan SIRS less likely sepsis. POA (see Dr. Deluca's note for criteria) 2/2 acute lupus flare. C. diff, COVID 19 negative. BCx UCx negative. ID following and has discontinued antibiotics as infectious workup has been negative. Pulm dw her salesperson hosiery and pt has been started on 1g methypred for 3 days. Transaminitis Improving. Suspected due to ischemic hepatitis from hypotension versus lupus flare.. Improving: AST 694 to 1459 to 1451 to 735 to 311, ALT 283 to 558 to 671 to 596 to (previously normal) CT showed no evidence of cholecystitis Acute hepatitis profile with hep A IgM, hep B surface antigen, hep B core antigen, hep C antibody were negative, pending: Patient has positive EBV IgG but IgM is been negative. CMV IgM and IgG were negative. ABLA Initially Hg dropped from 11.4 to 9. Currently stable. Heme positive stools. Warfarin was initially held given anemia, heme positive stools and coagulopathy. will resume. GI on consult. Thrombocytopenia stable. likely 2/2 sepsis. s/p Recent AVR, mechanical INR 5.9 on 12/13. Monitor. Received a 1x dose of vitamin K (5mg) on 12/13. Hold off on warfarin today as INR 4.2. Chronic conditions: PAF: Noted postoperatively following recent valve surgery, continue amiodarone, metoprolol as BP allows, once appropriate INR transition to heparin drip given acute presentation as noted. Hypertension: Continue metoprolol as BP allows, hold Lasix given significant GI losses with readdition once appropriate. Hyperlipidemia: Given transaminitis will temporally hold statin therapy. History CVA/TIA: Noted during a in 1997 with no residual deficits, holding aspirin, once appropriate INR transition to heparin drip given acute presentation as noted, temporally holding statin therapy given transaminitis, continue hypertensive regimen as BP allows with adjustment as noted. Seizure disorder: We will continue patient home Keppra regimen. SLE, antiphospholipid antibody syndrome: Outpatient on CellCept, Plaquenil and Imuran. patient recently resumed on her imuran as it was held for 4 weeks following recent operative intervention. Given her current presentation #1 will hold patient mycophenolate and Imuran therapy. Obesity class I: complicates care and recovery. VTE prophylaxis: not indicated as pt is anticoagulated. Discharge home. Advised patient to follow with her salesperson hosiery sooner than previously scheduled. Patient had previously been scheduled for routine follow-up but in light of acute events recommend that she follow-up sooner.
[2023-12-16] MEDS: Ferrous Sulfate 325 MG Tablet PO (10:46)
[2023-12-16] MEDS: Amiodarone 200 MG Tablet PO (10:46)
[2023-12-16] MEDS: levETIRAcetam 1,000 MG Tablet 1000 MG PO (10:47)
[2023-12-16] MEDS: Hydroxychloroquine 200 MG Tablet PO (10:47)
[2023-12-16] MEDS: MethylPREDNISolone 1,000 MG in 0.9% Normal Saline (100mL Bag) 100 ML 100 MG IV (10:47)
--- NOTE | 2023-12-16 10:47 | PN.ID_ITS ---
Physical Exam Narrative Feeling much better, no fever, no abd pain, no cough or SOB Const alert and no apparent distress General Appearance: cooperative Resp normal air movement and clear to auscultation bilaterally Cardio regular rate and regular rhythm GI soft to palpation, non-tender and non-distended Skin no rashes or lesions noted ID ID: Route of nutrition/ use of supplements: [] Nutritional Intake: [] IV Site: [] Leyva Catheter: [] Assessment & Plan Assessment/Plan (1) Sepsis: PLAN: Cxs neg so far. No fever last night. Covid neg, cdiff neg. Panc ytopenia, but not neutropenic. Had been off immunosuppression for her [facility] heart valve replacement. Transaminitis much improved. Admitted on empiric vanc/zosyn. Neg resp pcr panel and stool pcr panel. Lupus flare is possible explanation for her presentation. Now on steroid burst. Sternal wounds do not appear infected. Will stop abx today. Will follow (2) Gastroenteritis: (3) Elevated liver enzymes: (4) H/O mechanical aortic valve replacement: (5) Pancytopenia:
--- NOTE | 2023-12-16 11:13 | DS.PCM_ITS ---
Providers Date of Admission: 12/12/23 Primary Care Physician: Dr. Esvin Hamlin MD Consultations 12/12/23 06:25 Consult: Gastroenterology Routine Consulting Provider: [facility] Reason for Consult: Gastro with ? GI bleed, complicated by recent mechanical valve surgery EMERGENT Consult: No Notified: Yes Date Notified: 12/12/23 Time Notified: 06:45 Method of Notification: Text Consult: Undercollar Baster / Pulmonary Medicine Routine Consulting Provider: Intensivists/Pulmonary Med Reason for Consult: N/V/D, Hypotensive, Renal insuff, Hyponatremia EMERGENT Consult: No Notified: Yes Date Notified: 12/12/23 Time Notified: 06:06 Method of Notification: Text Consult: Onc/Wound/mechanical planner Routine Comment: Reason for Consult:: sternotomy wounds 12/13/23 13:19 Consult: Infectious Disease Routine Consulting Provider: Juan Miguel Mack Reason for Consult: Refractory sepsis with persistent fevers EMERGENT Consult: No Notified: Yes Date Notified: 12/13/23 Time Notified: 13:29 Method of Notification: Answering Service Reason For Visit: N/V/D, ? GI BLEED HYPONATREMIA RENAL INSUFFICIENCY Diagnosis Discharge Diagnosis (1) Nausea vomiting and diarrhea: Code(s): R11.2 - Nausea with vomiting, unspecified; R19.7 - Diarrhea, unspecified (2) Occult GI bleeding: Status: Acute Code(s): R19.5 - Other fecal abnormalities (3) Warfarin-induced coagulopathy: Status: Acute Code(s): D68.32 - Hemorrhagic disorder due to extrinsic circulating anticoagulants; T45.515A - Adverse effect of anticoagulants, initial encounter Plan SIRS * less likely sepsis. * POA (see Dr. Deluca's note for criteria) * 2/2 acute lupus flare. * C. diff, COVID 19 negative. BCx UCx negative. * ID following and has discontinued antibiotics as infectious workup has been negative. * Pulm dw her magnetic resonance technologist and pt has been started on 1g methypred for 3 days. Transaminitis * Improving. Suspected due to ischemic hepatitis from hypotension versus lupus flare.. * Improving: AST 694 to 1459 to 1451 to 735 to 311, ALT 283 to 558 to 671 to 596 to (previously normal) * CT showed no evidence of cholecystitis * Acute hepatitis profile with hep A IgM, hep B surface antigen, hep B core antigen, hep C antibody were negative, pending: Patient has positive EBV IgG but IgM is been negative. CMV IgM and IgG were negative. ABLA * Initially Hg dropped from 11.4 to 9. Currently stable. * Heme positive stools. * Warfarin was initially held given anemia, heme positive stools and coagulopathy. will resume. * GI on consult. Thrombocytopenia * stable. * likely 2/2 sepsis. s/p Recent AVR, mechanical * INR 5.9 on 12/13. Monitor. Received a 1x dose of vitamin K (5mg) on 12/13. Hold off on warfarin today as INR 4.2. Chronic conditions: * PAF: Noted postoperatively following recent valve surgery, continue amiodarone, metoprolol as BP allows, once appropriate INR transition to heparin drip given acute presentation as noted. * Hypertension: Continue metoprolol as BP allows, hold Lasix given significant GI losses with readdition once appropriate. * Hyperlipidemia: Given transaminitis will temporally hold statin therapy. * History CVA/TIA: Noted during a in 1997 with no residual deficits, holding aspirin, once appropriate INR transition to heparin drip given acute presentation as noted, temporally holding statin therapy given transaminitis, continue hypertensive regimen as BP allows with adjustment as noted. * Seizure disorder: We will continue patient home Keppra regimen. * SLE, antiphospholipid antibody syndrome: Outpatient on CellCept, Plaquenil and Imuran. patient recently resumed on her imuran as it was held for 4 weeks following recent operative intervention. Given her current presentation #1 will hold patient mycophenolate and Imuran therapy. * Obesity class I: complicates care and recovery. VTE prophylaxis: not indicated as pt is anticoagulated. Discharge home. Advised patient to follow with her magnetic resonance technologist sooner than previously scheduled. Patient had previously been scheduled for routine follow- up but in light of acute events recommend that she follow-up sooner. Medications at Discharge Home Medications aspirin 81 mg chewable tablet 81 mg PO DAILY@0800 07/20/13 hydroxychloroquine 200 mg tablet 1 tab PO BID 07/20/13 ergocalciferol (vitamin D2) 1,250 mcg (50,000 unit) capsule 50,000 unit PO DAILY 02/14/19 mycophenolate mofetil 500 mg tablet 250 mg PO ONCE 05/14/21 ferrous fumarate 324 mg (106 mg iron) tablet (Ferrocite) See Rx Instructions .Route .COMPLEX #60 tabs 03/30/22 rosuvastatin 10 mg tablet 10 mg PO DAILY 06/03/22 levetiracetam 1,000 mg tablet 1,000 mg PO BID #180 tabs 06/23/23 acetaminophen 325 mg tablet 650 mg PO Q6H PRN PRN mild pain 12/12/23 amiodarone 200 mg tablet 200 mg PO DAILY heart 12/12/23 metoprolol succinate 100 mg tablet,extended release 24 hr 100 mg PO DAILY bp and heart 12/12/23 oxycodone 5 mg tablet 5 mg PO Q6H PRN PRN pain 12/12/23 warfarin 4 mg tablet 4 mg PO DAILY blood thinner 12/12/23 Hospital Course Operations None Procedures PICC line placement Summary of Care Provided Minutes Spent on Discharge: 32 Hospital Course: Patient had initial clinical presentation was concerning for sepsis. Patient was started empiric antibiotics with pip-tazo and vancomycin. Patient was seen in consultation by critical care medicine as well as infectious disease. Patient did have marked transaminitis and was seen by gastroenterology. It was felt that this may have been a lupus flare given her history and after discussion with her magnetic resonance technologist, patient received 1 g of methylprednisolone for 3 days. Subsequent to that we have seen improvement of her transaminitis. Is unclear if the transaminitis related with her lupus or if there is correlation with transient hypotension. Patient is antibiotics will be discontinued as well as there is been no source of infection identified. Patient did undergo recent valve replacement surgery at the [facility]. Patient will follow-up with [facility] cardiothoracic surgery per routine. Weight / BMI Weight Weight: 78.557 kg Body Mass Index (BMI) 31.6 ABG / Lab / Microbiology Data 12/16/23 05:53 12/16/23 05:53 Laboratory: Laboratory Results - last 24 hr 12/13/23 14:45: GIULIANA-1 Antibody <0.2, SS-A/Ro IgG Antibody < 0.2, SS-B/La IgG Antibody < 0.2, Sm (Pimentel) Antibody <0.2, DRY HOUSE TENDER Antibody 0.2, Scl-70 Scleroderma Ab <0.2, Double Strand DNA Ab 3, Antichromatin Antibodies 0.2, Centromere B Antibody <0.2 12/13/23 19:45: Ceruloplasmin 26.4, IgG Total 954, IgG1 497, IgG2 230, IgG3 74, IgG4 9, CMV IgG Ab < 0.60, CMV IgM Ab < 30.0, EBV Capsid Ag IgG Ab > 600.0 H, EBV Capsid Ag IgM Ab < 36.0, EBV Nuclear Ag IgG Ab 597.0 H, EBV Antibody Interp Comment, TB Test (QFT) Nil 1.89, TB Test (QFT) Mitogen 2.29, TB Test (QFT) Ag 1 2.06, TB Test (QFT) Ag 2 2.11, TB Test (QFT) Comment, TB Positive Criteria Indeterminate H, VZV IgM Antibody < 0.91 12/13/23 23:30: Complement C3 64 L, Complement C4 23 12/15/23 11:30: Vancomycin Trough 18.6 H 12/16/23 05:53: WBC 3.4 L, RBC 3.37 L, Hgb 9.0 L, Hct 27.8 L, MCV 82.5, MCH 26.7 L, MCHC 32.4, RDW Std Deviation 46.4 H, RDW Coeff of Giselle 15.4 H, Plt Count 127 L , MPV 12.0, Immature Gran % (Auto) 0.600, Neut % (Auto) 77.4 H, Lymph % (Auto) 16.1 L, Patrick % (Auto) 5.6, Eos % (Auto) 0.0, Baso % (Auto) 0.3, Absolute Neuts (auto) 2.7, Absolute Lymphs (auto) 0.55 L, Nucleated RBC % 0, PT 40.2 H, INR 4.2 H*, Sodium 135 L, Potassium 3.8, Chloride 110 H, Carbon Dioxide 18.0 L, Anion Gap 7, BUN 23 H, Creatinine 0.80, Estim Creat Clear Calc 82.56, Est GFR (MDRD) Af Amer 98, Est GFR (MDRD) Non-Af 81, BUN/Creatinine Ratio 28.8 H, Glucose 157 H , Calcium 8.5, Total Bilirubin 0.70, AST 311 H, ALT 430 H, Alkaline Phosphatase 349 H, Total Protein 5.4 L, Albumin 2.4 L, Globulin 3.0, Albumin/Globulin Ratio 0.8 L Microbiology: Microbiology 12/14/23 13:15 Stool Enteric Bacteriology - Final 12/14/23 11:18 Mucosa - Nasopharyngeal Respiratory Panel (PCR) - Final 12/12/23 03:29 Blood Culture (Wb) - Right Wrist Blood Culture - Preliminary No growth in 48 hours. 12/12/23 03:54 Urine, Clean Catch Urine Culture - Final Culture exhibits no growth. 12/12/23 11:50 Stool Clostridioides difficile (PCR) - Final 12/12/23 11:10 Mucosa - Nose Coronavirus COVID-19 PCR - Final 12/12/23 03:54 Stool Stool Occult Blood (JOSIAS) - Final Occult Blood Positive D/C Instructions Discharge Diet: No restrictions Meaningful Use Info Meaningful Use Meaningful Use Diagnoses (Choose all that apply): None applicable Ischemic Stroke Statin Dosing Therapy Reference: STATIN DOSE THERAPY REFERENCE: * Patients > 75 years receive moderate or high dose statin therapy. * Patients 75 years or YOUNGER should receive HIGH intensity statin dose unless contraindicated. You will be required to document reason for non-treatment if statin daily dose does not meet guidelines. HIGH DOSE STATIN THERAPY DAILY Atorvastatin > than or = to 40 mg Rosuvastatin > than or = to 20 mg Amlodipine + Atorvastatin > than or = to 2.5/40 mg Ezetimibe + Simvastatin 10/80 mg Simvastatin 80mg Discharge Plan Admission Admit Date/Time: 12/12/23 05:25 Primary Reason for Your Visit: Lupus flare Attending Provider: Moisés Johnston Primary Care Provider: Esvin Hamlin Consulting Providers: Roopa Deluca; Derik Gimenez; Juan Miguel Mack; Luis Grossman; Emeka De Leon; Karlos Yousif; Jesús Johnston; Misbah Pantoja; Marcos Montgomery; Katie Garcia; Jose Carlos Aj; Chris Potter; Kamilla More; Coni Echevarria; Kenny Jones; Dany Bella; Darin Gonsales; Summer Ramey; Jermaine Mckeon; Feliberto Guerrero Instructions Additional Instructions / Restrictions: You had what appears to be a flareup of your lupus and have responded well with the steroids. But with this lupus flare would like for you to follow-up with your magnetic resonance technologist sooner than you had previously scheduled if that is possible. Also follow-up with your cardiothoracic surgery team at your earliest convenience for routine follow-up since you did miss your appointment while you are in the hospital. Discharge Orders/Prescriptions Prescriptions: Continued ergocalciferol (vitamin D2) 50,000 unit capsule 50,000 unit PO DAILY levetiracetam 1,000 mg tablet 1,000 mg PO BID Qty: 180 3RF aspirin 81 MG tablet,chewable 81 mg PO DAILY@0800 Patient Comments: HEALTH hydroxychloroquine 200 MG tablet 1 tab PO BID Patient Comments: UNKNOWN mycophenolate mofetil 500 mg tablet 250 mg PO ONCE Patient Comments: LOW PLATELETS rosuvastatin 10 mg tablet 10 mg PO DAILY amiodarone 200 mg tablet 200 mg PO DAILY acetaminophen 325 mg tablet 650 mg PO Q6H PRN PRN (Reason: mild pain) metoprolol succinate 100 mg tablet extended release 24 hr 100 mg PO DAILY oxycodone 5 mg tablet 5 mg PO Q6H PRN PRN (Reason: pain) ferrous fumarate [Ferrocite] 324 mg (106 mg iron) tablet See Rx Instructions .ROUTE .COMPLEX Qty: 60 2RF Dose Instruction: TAKE 1 TABLET BY MOUTH TWICE A DAY Rx Instructions: TAKE 1 TABLET BY MOUTH TWICE A DAY Held warfarin 4 mg tablet 4 mg PO DAILY Hold Instructions: Resume on 12/18/23. Protocol: Dose Management Condition: Wednesday Dose/Route: 4 mg Instruction: 1 x 4 mg tablet Condition: Wednesday Dose/Route: 6 mg Instruction: 1.5 x 4 mg tablets Condition: Wednesday Dose/Route: 4 mg Instruction: 1 x 4 mg tablet Condition: Wednesday Dose/Route: 6 mg Instruction: 1.5 x 4 mg tablets Condition: Dose/Route: 4 mg Instruction: 1 x 4 mg tablet Condition: Wednesday Dose/Route: 6 mg Instruction: 1.5 x 4 mg tablets Condition: Wednesday Dose/Route: 6 mg Instruction: 1.5 x 4 mg tablets Protocol Text: Adjustment Start Date: Wednesday12/06/23 INR Value: 1.6 INR Date: 12/03/23 Recheck Date: 12/13/23 Referrals / Follow Up: Tanya Mcfarland MD [Med Staff - [employer] Corem[facility]] - Within 2 Weeks Esvin Hamlin MD [Primary Care Provider] - Disposition Disposition (needs filled in before D/C Order can be placed): Home, Self Care Charges/Coding Visit Charges Inpatient E&M: 16606 Disch Hosp >30min
--- NOTE | 2023-12-16 11:48 | CASEMGMT ---
Patient has order for discharge. RN CM in to discuss needs at discharge. Patient denies needs or help at discharge. Patient had no further questions or concerns.
[2023-12-16 14:00] VITALS: BP 138/73; PULSE 55; RESP 16; TEMP 36.4; O2SAT 100
[2023-12-17 15:09] LABS: Anti-Mitochondrial AB <20.0 Units (0.0-20.0); Anti-Smooth Muscle ABS 8 Units (0-19)
== END 2023-12-16 14:35 | disposition home or self-care (01) | DRG 871 ==
LOC: ED 05:08 → ICU 06:10 → PCU 12-15 17:45
PROVIDERS: Hospitalist; Internal Medicine Critical Care Medicine; Internal Medicine Gastroenterology; Admitting Provider Family Medicine; Emergency Provider Emergency Medicine; PCP Family Medicine
DX: A41.9 Sepsis, unspecified organism (principal); K72.00 Acute and subacute hepatic failure without coma; D61.818 Other pancytopenia; D62 Acute posthemorrhagic anemia; E87.1 Hypo-osmolality and hyponatremia; D68.32 Hemorrhagic disorder due to extrinsic circulating anticoagulants; E87.20 Acidosis, unspecified; Q23.1 Congenital insufficiency of aortic valve; D68.61 Antiphospholipid syndrome; I48.0 Paroxysmal atrial fibrillation; E86.0 Dehydration; I12.9 Hypertensive chronic kidney disease with stage 1 through stage 4 chronic kidney disease, or unspecified chronic kidney disease; D50.9 Iron deficiency anemia, unspecified; K75.89 Other specified inflammatory liver diseases; E66.9 Obesity, unspecified; L93.2 Other local lupus erythematosus; R65.10 Systemic inflammatory response syndrome (SIRS) of non-infectious origin without acute organ dysfunction; K80.20 Calculus of gallbladder without cholecystitis without obstruction; E86.1 Hypovolemia; E78.5 Hyperlipidemia, unspecified; I25.10 Atherosclerotic heart disease of native coronary artery without angina pectoris; N18.2 Chronic kidney disease, stage 2 (mild); K52.9 Noninfective gastroenteritis and colitis, unspecified; D69.6 Thrombocytopenia, unspecified; Z82.3 Family history of stroke; R73.9 Hyperglycemia, unspecified; Z86.73 Personal history of transient ischemic attack (TIA), and cerebral infarction without residual deficits; Z87.891 Personal history of nicotine dependence; Z79.82 Long term (current) use of aspirin; Z79.01 Long term (current) use of anticoagulants; Z95.2 Presence of prosthetic heart valve; R16.2 Hepatomegaly with splenomegaly, not elsewhere classified; Z79.891 Long term (current) use of opiate analgesic; T45.515A Adverse effect of anticoagulants, initial encounter
CPT/HCPCS: 36569; 71045; 74177; 80053; 80074; 80202; 81001; 82140; 82274; 82390; 82728; 82784; 82787; 83516; 83605; 83690; 83735; 83930; 83935; 84145; 84300; 85025; 85027; 85610; 85652; 85730; 86140; 86160; 86225; 86235; 86256; 86480; 86644; 86645; 86664; 86665; 86787; 86850; 86900; 86901; 87040; 87086; 87493; 87506; 87633; 87635; 93005; 93306; 94668; 97110; 97162; 97166; 97530; 97535; 99285; J7030; J7040; J7050; Q9957; Q9967; A4216; C8929; J2405; J2919; J3430; J3490

== ENCOUNTER 2023-12-20 10:33 | Outpatient (RCR) | payer OTHER, SELFPAY ==
[2023-11-26 10:38] LABS: International Normalized Ratio 1.6
[2023-12-03 15:51] LABS: International Normalized Ratio 1.6; Prothrombin Time (Protime)PT. 19.4 SECONDS (11.7-14.9)
[2023-12-20 12:19] LABS: International Normalized Ratio 2.5; Prothrombin Time (Protime)PT. 27.1 SECONDS (11.7-14.9)
== END 2023-12-20 18:00 | disposition home or self-care (01) ==
LOC: MTLAB 10:33
PROVIDERS: PCP Family Medicine; Referring Provider Internal Medicine Cardiovascular Disease; Visit Provider Internal Medicine Cardiovascular Disease
DX: Z95.2 Presence of prosthetic heart valve (principal); Z79.01 Long term (current) use of anticoagulants
CPT/HCPCS: 36415; 85610

== ENCOUNTER 2023-12-20 15:15 | Outpatient (RCR) | payer OTHER, SELFPAY ==
[2023-11-29 08:53] VITALS: BMI 34.4
== END 2023-12-20 23:59 ==
LOC: CR 15:15
PROVIDERS: PCP Family Medicine; Referring Provider Internal Medicine Cardiovascular Disease; Visit Provider Internal Medicine Cardiovascular Disease
DX: Z95.2 Presence of prosthetic heart valve (principal)
CPT/HCPCS: 93798

== ENCOUNTER → 2023-12-22 | Outpatient (CLI) | payer OTHER, SELFPAY ==
[2023-11-29 08:53] VITALS: BMI 34.4
[2023-12-22 15:22] LABS: Absolute Lymphocyte Count 0.85 X10^3/uL (0.83-4.51); Absolute Neutrophil Count 7.4 X10^3/uL (2.0-7.7); Basophil# 0.04 X10^3/uL; Basophil% 0.4 % (0-1); Eosinophil# 0.06 X10^3/uL; Eosinophils% 0.6 % (0-5); Hematocrit 32.9 % (37-47); Hemoglobin 10.1 g/dL (12.0-15.0); Lymphocyte # 0.85 X10^3/ul (0.83-4.51); Lymphocyte % 9.1 % (19-41); Mean Corp Hgb Conc 30.7 g/dL (32-36); Mean Corpuscular Hgb 26.8 pg (27.0-32.0); Mean Corpuscular Volume 87.3 fL (81-99); Mean Platelet Vol. 11.3 fl (6.2-12.0); Monocyte% 8.5 % (0-10); NRBC Flagged by Analyzer 0 % (0-5); Neutrophil # 7.38 X10^3/uL (2.7-7.7); Neutrophil % 78.9 % (47-70); Platelet Count 267 K/mm3 (150-450); RBC Distribution Width SD 47.7 fl (35.1-43.9); Red Blood Count 3.77 M/mm3 (4.2-5.4); White Blood Count 9.4 K/mm3 (4.4-11.0)
[2023-12-22 15:59] LABS: ALB/GLOB Ratio 0.9 RATIO (0.9-2.4); AST(SGOT) 27 U/L (15-37); Alanine Aminotransfer ALT/SGPT 118 U/L (13-56); Alkaline Phosphatase 202 U/L (45-117); Anion Gap 3 (5-15); BUN 11 mg/dL (7-18); BUN/Creat Ratio 12.6 RATIO (10-20); Calcium,Total 8.8 mg/dL (8.5-10.1); Chloride 104 mmol/L (98-107); Creatinine, Serum 0.87 mg/dL (0.55-1.02); EST Glomerular Filtration Rate 73 mL/min (>60); Est Glom Filt Rate - Afr Amer 89 mL/min (>60); Ferritin 2183 ng/mL (8-252); Globulin 3.4 g/dL (2.2-4.2); Glucose 100 mg/dL (74-106); Iron 24 ug/dL (50-170); Iron Binding Capacity,Total 311 ug/dL (250-450); Protein, Total 6.4 g/dL (6.4-8.2); Sodium Level 136 mmol/L (136-145)
== END | disposition home or self-care (01) ==
PROVIDERS: PCP Family Medicine; Referring Provider Family Medicine; Visit Provider Family Medicine
DX: E87.1 Hypo-osmolality and hyponatremia (principal); D62 Acute posthemorrhagic anemia; R74.01 Elevation of levels of liver transaminase levels
CPT/HCPCS: 36415; 80053; 82728; 83540; 83550; 85025

== ENCOUNTER 2023-12-31 15:15 | Outpatient (RCR) | payer OTHER, SELFPAY ==
[2023-11-29 08:53] VITALS: BMI 34.4
--- NOTE | 2023-12-29 08:53 | CR.ITP_ITS ---
Exercise - Initial Assessment Visit Session #:: 5 Physician Prescribed Exercise Modalities: Treadmill, Schwinn Airdyne AD-7 and SciFit Stepper Nutrition - Initial Assessment Weight Mgt (Other Care) Height: 5 ft 2 in Weight:: 173 lb 8 oz BMI: 31.7 Core - Initial Assessment Tobacco Use Years Smokin (stopped 20 years ago) Psychosocial - Initial Assess Target Goals Target Goals Referral to Behavioral Health PS - Interventions: Yes: Attend Stress Management Classes Patient Health Questionnaire PHQ-9 Screening 30-Day Re-eval Assessment: 1. Little interest or pleasure in doing things: Several days 2. Feeling down, depressed, or hopeless: Not at all 3. Trouble falling or staying asleep, or sleeping too much: Several days 4. Feeling tired or having little energy: Not at all 5. Poor appetite or overeating: Not at all 6. Feeling bad about yourself -- or that you are a failure or have let yourself or your family down: Several days 7. Trouble concentrating on things, such as reading the newspaper or watching television: Not at all 8. Moving or speaking so slowly that other people could have noticed. Or the opposite - being so fidgety or restless that you have been moving around a lot more than usual: Not at all 9. Thoughts that you would be better off , or of hurting yourself in some way: Not at all How difficult have these problems made it for you to do your work, take care of things at home, or get along with other people?: Not difficult at all Total Score: 3 Self-Efficacy 6-Item Scale 30-Day Re-eval Assessment: We would like to know how confident you are in doing certain activities. Please select your confidence level for: Fatigue Select Number: 6 Physical Discomfort or Pain Select Number: 6 Emotional Distress Select Number: 6 Other Symptoms or Health Problems Select Number: 6 Different Tasks and Activities Select Number: 6 Medication Select Number: 6 Total Score:: 6 Nutrition Survey Nutrition Survey Instructions Scoring Instructions Exercise - 30-day Assessment Visit Date of Eval: 12/29/23 Session #:: 5 Physician Prescribed Exercise Modalities: Treadmill, Schwinn Airdyne AD-7 and SciFit Stepper Frequency: 3x/week for 12 weeks [36 sessions] Intensity: 60-80% of age predicted maximum heart rate reserve Duration: 30 - 45 minutes Current METSs:: 3 Target Heart Rate:: 102-128 Current RPE:: 11-12 Maximum Excercise HR:: 80 Resting Blood Pressure: 118/72 Maximum Exercise Blood Pressure: 112/70 EKG Type: NSR w/ Twave inversion and rare pac Outcomes & Goals Goals:: Verbalizes understanding of THR, RPE & goal METS by session 6, Documents in home exercise log/reports 30 min aerobic 5 day/wk by DC, Demonstrates accurate pulse taking by DC and Other additional outcome/goals: see below Intervention & Plan Exercise Program Goals: Instruct on personal THR & RPE, Instruct on MET level & personal MET goal, Show patient to take own pulse /validate performance until accurate, Instruct on home exercise and Other additional plan/int 30-day Reassessments 30 day Reassessments:: Progressing Reassessment Notes & Comments:: RPE explained and pt demonstrates understanding Physical Activity Home Exercise Physical Activity - Home Exercise: Safe Exercise, Warm-up, Self-monitoring, Cool-Down, Home Exercise > 30 min Daily and Sitting Time <3 hours/daily Outcomes & Goals Outcomes/Goals: Demonstrates correct Warm-up/exercise Cool-Down (S3) if = 2.5 METs, Verbalizes symptoms of exercise intolerance by Session 3 (S3), Demonstrate safe equipment use (S3) & follows exercise prescrition (6) and Other: See below Intervention & Plan Plan/Intervention: Instruct warm-up & cool-down if exercising at > 2 METs, Instruct on symptoms of exercise intolerance & actions to take, Instruct & monitor on saf, Assess intial functional capacity & safety risk and Other See below 30-day Reassessments 30 day Reassessments:: Progressing Reassessment Notes & Comments:: warm up demonstrated and pt is able to return demonstration Exercise - 60-day Assessment Physician Prescribed Exercise Modalities: Treadmill, Schwinn Airdyne AD-7 and SciFit Stepper Exercise - 90-day Assessment Physician Prescribed Exercise Modalities: Treadmill, Schwinn Airdyne AD-7 and SciFit Stepper Exercise - Final/Discharge Physician Prescribed Exercise Modalities: Treadmill, Schwinn Airdyne AD-7 and SciFit Stepper Nutrition - 30-Day Assessment Program Goals Nutrition Program Goals Patient has diagnosis of Hyperlipidemia (ICD E78)?: No Visit Date of Eval: 12/29/23 Session #:: 5 Cholesterol/Lipids (Other Core Measures) Determine presence & major risk factors that modify LDL goal: Hypertension or hypertensive medication, Low HDL cholesterol <40 mg/dL*, Family history of premature CHD in Male < 55 years: female <65 yearsFa and Age men > 45 years; women >/= 55 years Outcomes/Goals: Pt IDs own risk factors & lifestyle modifications by Session 10, Verbalizes symptoms of angina & response by session 3., Pt independently manages and Other Additional Outcomes/Goals: Intervention/Plan: Advocate for lipid panel cholesterol medication if applicable, Instruct on personal lipid levels & lipid goals/NCEP guidelines, Instruct on cholesterol and Other additional plan/int 30-day Reassessments:: Progressing Reassessment Notes & Comments:: risk factors reviewed and explained. pt demonstrates understanding Diabetes (Other Core Measures) Diabetes Type: Not Applicable Weight Mgt (Other Care) Height: 5 ft 2 in Weight:: 173 lb 8 oz BMI: 31.7 Diagnosis Overweight/Obesity BMI> 30% ICD-10 E66: Yes Diagnosis High BMI/Morbid Obesity BMI> 35% ICD-10 Z68: No Outcomes/Goals: Pt sets, maintains & shows weight loss goal & trend during rehab and Other additional outcomes/goals Intervention/Plan: Instruct on ideal BMI & set weight loss goal w/patient, Assist pt to ID & incorporate diet changes for weight loss by S9, Refer to Structured Weight Loss program as appropriate, Encourage goal of using 250- 300dcal per session for weight loss and Other additional plan/interventions 30 day Reassessments:: Progressing Reassessment Notes & Comments:: pt is to attend nutrition class. Will encourage pt to meet with dietitian as well Healthy Eating Habits Will attend diet classes:: Yes Outcomes/Goals:: Consume diet rich in vegs,fruits,whole grain/high fiber,fish,lean meat, Limit sat/trans fats,cholesterol & added salts & sugars and Other additional outcome/goals: Intervention/Plan:: Assess current eating habits and Other Additional plan/interventions 30-day Reassessments:: Progressing Reassessment Notes & Comments:: pt is to attend nutrition class. Will encourage pt to meet with dietitian as well Education Gave educational materials for:: Signs & symptoms of hypoglycemia, Signs & symptoms of hyperglycemia, Relate diabetes to coronary artery disease and Healthy eating Nutrition - 60-Day Assessment Weight Mgt (Other Care) Height: 5 ft 2 in Weight:: 173 lb 8 oz BMI: 31.7 Core - 30-Day Assessment Visit Date of Eval: 12/29/23 Session #:: 5 Medication Compliance Preventative Medication(s):: Aspirin and Statin/lipid H/O mental health issues: depression, anxiety, or addiction?: No Doesn?t believe in the benefits of treatment?: No Believes medications are unnecessary or harmful?: No Has a concern about medication side effects?: No Expresses concern over the cost of medications?: No Outcomes/Goals: Verbalizes medications,desired effect & common side effects @ DC, Pt self-reports following medication regimen, Keeps card in wallet w/medications listed by DC and Other additional outcome/goals: Interventions/plans: Instruct on medication effects & side effects, Review medication list w/patient every two weeks, Instruct importance of taking meds as ordered & assist problem solving and Other additional 30-day Reassessments:: Progressing Reassessment Notes & Comments:: pt is taking meds as prescribed by her physician. Will continue to monitor and encourage Tobacco Use Tobacco Use: Non-smoker How long ago did you quit using tobacco products?: Greater than or equal to 6 months ago Years Smokin (stopped 20 years ago) Do you use smokeless tobacco?: No 30-day Reassessments:: Met Hypertension Resting Blood Pressure:: 118/72 [place] [employer] Hypertension Guidelines Peak Exercise Blood Pressure:: 112/70 Outcomes/Goals: Able to verbalize/achieve optimal blood pressure <130/80, Incorporates diet changes & exercise for blood pressure control by DC and Other additional outcomes/goals Interventions/plan: Instruct on optimal blood pressure, hypertension & medications, Instruct on effects of sodium, alcohol, stress, exercise &hypertension and Other additional plan/interventions 30 day Reassessments:: Met Reassessment Notes & Comments:: pt's BP's are within AHA normal limits. Will continue to monitor and alert physician if need be. Tobacco Cessation Referral Smoking Cessation Referral:: No Individual Education/Counseling:: No Education Schedule Given:: Yes Psychosocial - 30-Day Assess VIsit Date of Eval: 12/29/23 Session #:: 5 History of previous Mental disease:: No Target Goals Target Goals Psychosocial Test Tool Used:: [employer] QOL Cardiac and PHQ-9 Questionnaire phq-9 Severity Referral to Behavioral Health PS - Interventions: Yes: Attend Stress Management Classes Outcomes/Goals: See list Psychosocial Outcomes/Goals:: ID's personal stressors & 2 strategies to manage stress by discharge and Other Additional outcome/goals: Intervention/Plan: See List Interventions/Plan:: Assess stressors,coping strategies & signs of derpression on admission, Instruct/assist pt to develop coping & personal stress Mgt strategies, Refer to Behavioral Health if appropriate, Refer to Physician if appropriate, Instruct patient to recognize signs & symptoms of depression, Instruct patient to recog and Other additional plan/intervention 30-day Reassessments: 30 day Reassessments:: Met Reassessment Notes & Comments:: pt denies any psychosocial issues at this time Psychosocial - 60-Day Assess Target Goals Target Goals Referral to Behavioral Health PS - Interventions: Yes: Attend Stress Management Classes Outcomes/Goals: See list Psychosocial Outcomes/Goals:: ID's personal stressors & 2 strategies to manage stress by discharge and Other Additional outcome/goals: Psychosocial - 90-Day Assess Target Goals Target Goals Referral to Behavioral Health PS - Interventions: Yes: Attend Stress Management Classes Psychosocial - Final Assessmen Target Goals Target Goals Referral to Behavioral Health PS - Interventions: Yes: Attend Stress Management Classes Nutrition - 90-Day Assessment Weight Mgt (Other Care) Height: 5 ft 2 in Weight:: 173 lb 8 oz BMI: 31.7 Nutrition - Final Assessment Weight Mgt (Other Care) Height: 5 ft 2 in Weight:: 173 lb 8 oz BMI: 31.7
[2023-12-29 08:59] VITALS: BP 118/72
[2023-12-29 09:12] VITALS: BP 118/72; BMI 31.7
== END 2024-01-20 23:59 ==
LOC: CR 15:15
PROVIDERS: PCP Family Medicine; Referring Provider Internal Medicine Cardiovascular Disease; Visit Provider Internal Medicine Cardiovascular Disease
DX: Z95.2 Presence of prosthetic heart valve (principal)
CPT/HCPCS: 93798

== ENCOUNTER → 2024-01-02 | Emergency (ER) | payer OTHER, SELFPAY ==
[2023-12-29 09:12] VITALS: BMI 31.7
[2024-01-02] VITALS (20 sets, daily range): BP systolic 85–112; BP diastolic 51–76; PULSE 62–120; RESP 11–27; TEMP 36.3–39.6; O2SAT 93–100; BMI 41.6
[2024-01-02] MEDS: Hydrocortisone Sod Succinate 100 MG/2 ML Vial IV (02:25)
[2024-01-02] MEDS: Aspirin 325 MG Tablet PO (02:25)
[2024-01-02] MEDS: 0.9% Normal Saline (1000mL) 1,000 ML 999 ML IV ×2 (02:25→07:31)
[2024-01-02 02:26] LABS: Bacteria 0 SEEN /hpf (None Seen); Mucous, Urine 0 SEEN /hpf (<or=2+); Red Blood Cells-Urine 0 SEEN /hpf (0-5)
[2024-01-02 02:28] LABS: Absolute Neutrophil Count 4.4 X10^3/uL (2.0-7.7); Basophil# 0.04 X10^3/uL; Basophil% 0.8 % (0-1); Eosinophil# 0.02 X10^3/uL; Eosinophils% 0.4 % (0-5); Hematocrit 34.2 % (37-47); Hemoglobin 10.8 g/dL (12.0-15.0); Lymphocyte % 9.7 % (19-41); Mean Corp Hgb Conc 31.6 g/dL (32-36); Mean Corpuscular Hgb 27.6 pg (27.0-32.0); Mean Corpuscular Volume 87.5 fL (81-99); Mean Platelet Vol. 9.9 fl (6.2-12.0); Monocyte# 0.16 X10^3/uL; Monocyte% 3.1 % (0-10); NRBC Flagged by Analyzer 0 % (0-5); Neutrophil # 4.38 X10^3/uL (2.7-7.7); POSITIVE DIFFERENTIAL YES; Platelet Count 151 K/mm3 (150-450); RBC Distribution Width CV 15.6 % (11.6-14.6); RBC Distribution Width SD 49.4 fl (35.1-43.9); Red Blood Count 3.91 M/mm3 (4.2-5.4); White Blood Count 5.2 K/mm3 (4.4-11.0)
[2024-01-02 02:29] LABS: Color, Urine Yellow (Yellow); Glucose, Dipstick Normal (Normal); Ketone-Dipstick Negative (Negative); Leukocyte Esterase-Dipstick 100 /ul (Negative); Nitrite-Dipstick Negative (Negative); Occult Blood-Urine 25 /ul (Negative); Protein-Dipstick 30 mg/dl (Negative); Urine Bilirubin Dipstick Negative (Negative); Urine Clarity Clear (Clear); Urine Urobilinogen Normal (Normal)
--- NOTE | 2024-01-02 02:30 | RAD_ITS ---
EXAM: XR CHEST, 1 VIEW CLINICAL INDICATION: cough TECHNIQUE: Frontal view of the chest. COMPARISON: December 12, 2023 FINDINGS: LUNGS AND PLEURAL SPACES: Unremarkable. No consolidation or edema. No pneumothorax. No effusion. HEART: Status post aortic valve replacement. MEDIASTINUM: Central airways and mediastinal contour are unremarkable. BONES/JOINTS: Intact sternotomy wires. No acute fracture. SOFT TISSUES: Unremarkable. RAD/Chest 1 View (Portable) IMPRESSION: No change. No acute disease. Electronically Signed: Jose Manuel Forde MD at 3:24 EDT ,
[2024-01-02 02:41] LABS: International Normalized Ratio 1.7; Prothrombin Time (Protime)PT. 20.2 SECONDS (11.7-14.9)
[2024-01-02 02:47] LABS: Anion Gap 5 (5-15); BUN 25 mg/dL (7-18); BUN/Creat Ratio 20.2 RATIO (10-20); Calcium,Total 8.9 mg/dL (8.5-10.1); Chloride 106 mmol/L (98-107); Creatinine, Serum 1.24 mg/dL (0.55-1.02); EST Glomerular Filtration Rate 49 mL/min (>60); Est Glom Filt Rate - Afr Amer 59 mL/min (>60); Estimated Creatinine Clearance 61.84 ml/min; Glucose 100 mg/dL (74-106); Magnesium 1.6 mg/dL (1.6-2.6); Potassium 3.7 mmol/L (3.5-5.1); Sodium Level 138 mmol/L (136-145)
[2024-01-02 02:51] LABS: Procalcitonin 1.87 ng/mL (0.00-0.09)
[2024-01-02 02:53] LABS: Squamous Epithelial Cells - UA 0-5 SEEN /hpf (5-10); White Blood Cells 10-25 SEEN /hpf (0-5)
--- NOTE | 2024-01-02 03:03 | CT_ITS ---
EXAM: CT ABDOMEN AND PELVIS WITH INTRAVENOUS CONTRAST CLINICAL INDICATION: abd pain TECHNIQUE: Helically acquired images were obtained of the abdomen and pelvis with intravenous contrast. CTDIvol = ( 14.82 ) mGy, DLP = ( 1526.39 ) mGycm This CT exam was performed using one or more of the following dose reduction techniques: automated exposure control, adjustment of the mA and/or kV according to patient size, and/or use of iterative reconstruction technique. CONTRAST: isovue 370 100 ml COMPARISON: No relevant prior studies available. FINDINGS: LOWER THORAX: Parenchymal scarring involving the right middle lobe and right lower lobe. No cardiomegaly. No significant pericardial effusion. ABDOMEN: LIVER: Hepatosplenomegaly. Periportal edema, nonspecific. GALLBLADDER AND BILE DUCTS: Unremarkable. No calcified gallstones. No gallbladder distention or wall edema. No intra- or extrahepatic biliary ductal dilation. PANCREAS: Unremarkable. No focal cystic or solid mass. SPLEEN: See above. ADRENALS: Unremarkable. No nodules. KIDNEYS AND URETERS: Small exophytic right renal cysts. Right extrarenal pelvis. STOMACH AND BOWEL: Unremarkable. No colitis, diverticulitis or bowel obstruction. PELVIS: APPENDIX: No evidence of acute appendicitis. BLADDER: Unremarkable. REPRODUCTIVE: Unremarkable as visualized. No mass. ABDOMEN and PELVIS: INTRAPERITONEAL SPACE: Unremarkable. No ascites or other fluid collection. No free air. BONES/JOINTS: Unremarkable. No suspicious lytic or blastic abnormality. SOFT TISSUES: See above. VASCULATURE: Unremarkable. Abdominal aorta is non-dilated. LYMPH NODES: Unremarkable. No enlarged lymph nodes. CT/Abdomen/Pelvis W IV Cont ONLY IMPRESSION: 1. No acute or inflammatory disease or bowel obstruction. 2. Stool and gas throughout the colon can be seen with constipation. 3. Nonspecific hepatosplenomegaly. Electronically Signed: Jose Manuel Forde MD at 4:31 EDT ,
--- NOTE | 2024-01-02 03:09 | CT_ITS ---
EXAM: CT ANGIOGRAPHY CHEST WITHOUT AND WITH INTRAVENOUS CONTRAST CLINICAL INDICATION: fever s/p surgery TECHNIQUE: Helically acquired angiography images were obtained of the chest without and with intravenous contrast. CTDIvol = ( 14.82 ) mGy, DLP = ( 1526.39 ) mGycm This CT exam was performed using one or more of the following dose reduction techniques: automated exposure control, adjustment of the mA and/or kV according to patient size, and/or use of iterative reconstruction technique. MIP reconstructed images were created and reviewed. CONTRAST: IV 100mL Isovue-370 COMPARISON: December 12, 2023 exam FINDINGS: PULMONARY ARTERIES: Unremarkable. Normal in caliber. No evidence of pulmonary embolism. AORTA: Unremarkable. Normal in caliber. No evidence of dissection. GREAT VESSELS OF AORTIC ARCH: Unremarkable. Normal in caliber. No evidence of dissection. LUNGS AND PLEURAL SPACES: Small calcified granuloma at the right lower lobe posteriorly. Pleural parenchymal scarring at the right greater than left lung bases. No mass. No pneumothorax. HEART: Unremarkable. Heart size is normal. No pericardial effusion. No significant coronary artery calcifications. MEDIASTINUM: Unremarkable. No mediastinal or hilar adenopathy. Esophagus is unremarkable. No hiatal hernia. THYROID: Unremarkable. No thyroid lesions. BONES/JOINTS: No suspicious lytic or sclerotic lesions of bone. LIVER: Hepatosplenomegaly demonstrated. GALLBLADDER AND BILE DUCTS: Unremarkable gallbladder. KIDNEYS AND URETERS: Small right renal cysts. No hydronephrosis. No renal calyceal calculi. STOMACH AND BOWEL: Fluid: Large and small bowel loops without abnormal distention, wall thickening or surrounding inflammation can be seen with gastroenteritis. INTRAPERITONEAL SPACE: Unremarkable as visualized. No free air or free fluid. CT/CTA Chest W/WO Contrast IMPRESSION: 1. Hepatosplenomegaly demonstrated. 2. Fluid: Large and small bowel loops without abnormal distention, wall thickening or surrounding inflammation can be seen with gastroenteritis. Electronically Signed: Jose Manuel Forde MD at 5:08 EDT ,
--- NOTE | 2024-01-02 07:51 | EX.ED.DYSGE1 ---
HPI History of Present Illness Chief Complaint: Fever Informant: patient and spouse/S.O. Narrative Narrative: Patient is a 48-year-old female with past medical history of chronic kidney disease aortic insufficiency paroxysmal atrial fibrillation currently on Coumadin as well as surgery on November 04 at [facility] for aortic valve replacement. She also has a past medical history of lupus. She was discharged from the facility on November 10 and was doing well and then began spiking fevers at home and presented to the hospital secondary to her symptoms. She was admitted to our facility at the end of November and at that time underwent a workup for fever with multiple imaging studies blood cultures urine cultures and a transthoracic echo. There was no obvious source of infection and it was deemed that her symptoms related to her lupus and she was discharged home. She states she was doing better but in the last 24 hours began with chills and spiked a fever up to 104 at home and also had a bout of nausea and vomiting after waking from sleep. Therefore with the return of fever her history of recent cardiac surgery as well as previous admission not find any obvious source there was concern there was a missed infection and she presents to the ER for repeat evaluation [facility] Medical History Left leg swelling Right leg swelling Iron deficiency anemia Sternal wound dehiscence Adult celiac disease SLE (systemic lupus erythematosus) Lupus anticoagulant positive History of endocarditis Nonrheumatic aortic (valve) stenosis with insufficiency Chronic fatigue CKD (chronic kidney disease), stage II PAF (paroxysmal atrial fibrillation) CAD (coronary artery disease) Obesity Former tobacco use History of CVA (cerebrovascular accident) Seizures Carpal tunnel syndrome Arthritis Nonrheumatic aortic (valve) stenosis Essential hypertension Nonrheumatic aortic (valve) insufficiency Seizure disorder Female stress incontinence Home Medications ?Medication ?Instructions ?Recorded ?Last Taken ?Type aspirin 81 mg chewable tablet 81 mg PO DAILY@0800 heart health 07/20/13 09/27/23 History hydroxychloroquine 200 mg tablet 1 tab PO BID lupus 07/20/13 Unknown History ergocalciferol (vitamin D2) 1,250 50,000 unit PO DAILY supplement 02/14/19 09/27/23 History mcg (50,000 unit) capsule mycophenolate mofetil 500 mg tablet 250 mg PO ONCE blood counts 05/14/21 09/27/23 History ferrous fumarate 324 mg (106 mg See Rx Instructions .Route 03/30/22 Unknown Rx iron) tablet (Ferrocite) .COMPLEX supplement #60 tabs rosuvastatin 10 mg tablet 10 mg PO DAILY cholesterol 06/03/22 Unknown History levetiracetam 1,000 mg tablet 1,000 mg PO BID seizures #180 tabs 06/23/23 Unknown Rx acetaminophen 325 mg tablet 650 mg PO Q6H PRN PRN mild pain 12/12/23 Unknown History warfarin 4 mg tablet 4 mg PO DAILY blood thinner 12/12/23 Unknown History metoprolol succinate 100 mg 100 mg PO QAM bp and heart #90 tabs 12/23/23 Unknown Rx tablet,extended release 24 hr metoprolol succinate 50 mg 50 mg PO QHS #90 tabs 12/23/23 Unknown Rx tablet,extended release 24 hr Allergy/AdvReac Type Severity Reaction Status Date / Time ketorolac tromethamine (From Allergy Severe Shortness Verified 01/02/24 01:38 Toradol) of breath Family History Grandmother CVA (cerebral vascular accident) Uterine cancer Uncle Heart disease Myocardial infarction CAD (coronary artery disease) Hypertension Mother Diabetes Father No problems noted. Surgical History (Updated 01/02/24 @ 08:[address] Jose Manuel Sanchez DO) S/P hysterectomy H/O mechanical aortic valve replacement (11/05/23) History of tonsillectomy Social History household members: spouse Smoking Status: Former smoker how long ago did patient quit smoking: Smoked ~ 1 ppd x 5 years, quit 05/28/2008 second hand exposure: No alcohol intake: current alcohol intake frequency: holidays/special occasions only substance use type: does not use caffeine: Yes Type: coffee Number of servings: 2 seatbelt use: never ROS ROS ED Constitutional Constitutional ED: Reports chills and fever(s) Eyes Eyes: Denies blurry vision or change in vision ENT ENT ED: Denies sore throat Cardiovascular Cardiovascular: Denies chest pain Respiratory/Chest Respiratory/Chest: Reports cough; Denies dyspnea Gastrointestinal Gastrointestinal: Reports nausea and vomiting; Denies abdominal pain or diarrhea Genitourinary Genitourinary ED: Denies dysuria Musculoskeletal Musculoskeletal: Reports myalgias Integumentary Denies rash Neurologic Neurologic: Denies headache(s) Hematologic/Lymphatic Hematologic/Lymphatic: Reports easy bleeding and easy bruising EXAM Physical Exam Const Vital Signs: 01/02/24 01:38 01/02/24 01:41 01/02/24 02:30 Temperature 103.3 F H 103.3 F H Temperature Source Oral Oral Pulse Rate 120 H 120 H 101 H Respiratory Rate 21 H 24 H 23 H Blood Pressure 101/57 L 101/57 L 103/59 L Blood Pressure Mean 71 71 73 Pulse Ox 95 94 97 Oxygen Delivery Method Room Air Room Air 01/02/24 02:41 01/02/24 03:00 01/02/24 03:00 Temperature 100 F H 100 F H Temperature Source Oral Oral Pulse Rate 93 92 93 Respiratory Rate 27 H 23 H 26 H Blood Pressure 100/62 95/55 L 95/55 L Blood Pressure Mean 74 68 68 Pulse Ox 97 97 96 Oxygen Delivery Method Room Air Room Air 01/02/24 04:00 01/02/24 04:00 01/02/24 05:00 Temperature 98.8 F Temperature Source Temporal Pulse Rate 90 90 88 Respiratory Rate 22 H 21 H 19 H Blood Pressure 100/57 L 100/57 L 95/55 L Blood Pressure Mean 71 71 68 Pulse Ox 94 94 96 Oxygen Delivery Method Room Air Room Air 01/02/24 06:00 01/02/24 07:00 01/02/24 07:32 Temperature 97.3 F L Temperature Source Oral Pulse Rate 79 74 72 Respiratory Rate 22 H 19 H 11 L Blood Pressure 85/51 L 92/55 L 94/58 L Blood Pressure Mean 62 67 70 Pulse Ox 93 93 95 Oxygen Delivery Method Room Air Room Air Room Air Positive well nourished, well developed and obese General Appearance ED: well developed Nutritional Appearance: obese HEENT Reports dry mucous membranes HEENT Narrative: Mucous membranes are dry and tacky without tongue or lip swelling oral lesions or airway edema or compromise. No signs of infection noted in the posterior pharynx. Mouth ED: Yes dry mucous membranes Mouth: dry mucous membranes Eyes PERRL and EOMs intact bilaterally General Eye ED: Negative for scleral icterus Neck supple Neck Narrative: No nuchal rigidity or meningeal signs Chest Wall Chest Narrative: Patient has a vertical incision along the midline of her chest/sternum consistent with history of aortic valve replacement roughly 2 months ago. There is a small area of dehiscence at the top of the wound which has been known but otherwise the wound is clean dry and intact without secondary changes to suggest infection Resp Resp Narrative: Breath sounds are diminished throughout but overall clear to auscultation. There is tachypnea noted but no nasal flaring retractions or accessory muscle use Cardio regular rhythm Rate: tachycardic and other Other Details: Tachycardic rate with regular rhythm There is a systolic click consistent with history of mechanical heart valve GI normal to inspection, nondistended, normoactive bowel sounds, non-tender, non-distended and no masses GI Narrative: No voluntary guarding or rigidity or pulsatile mass No peritoneal signs noted Auscultation: normoactive bowel sounds Palpation: soft Extremity normal to inspection Extremity Narrative: No asymmetric edema no pitting edema negative Homans' sign bilaterally Neuro oriented x3, CN's II-XII intact bilaterally and no sensory deficits noted Sensorium / Orientation: alert Motor Exam: strength 5/5 throughout Psych mental status grossly normal Skin no rashes or lesions noted Skin Narrative: Skin turgor is increased Patient has erythematous rash across the cheeks and nose consistent history of lupus Otherwise no systemic rash Capillary refills less than 3 seconds General Skin Exam: Negative for jaundice MDM MDM MDM Narrative Medical decision making narrative: Patient arrived to the ER febrile but overall in no acute distress. With her temperature of reported 104 at home there is concern for pneumonia versus COVID versus influenza versus RSV versus UTI. There is also concern that even though she is approximately 2 months out from her surgery as this could be potential endocarditis. She did not have splinter hemorrhages or signs of any type of peripheral venous or arterial occlusion. Blood cultures and urine cultures were obtained as well as basic blood work. White blood cell count is normal at 5.2 and there is no elevation to her neutrophil count. Patient CRP is elevated at 115 which was nonspecific and her procalcitonin is also elevated at 1.9 but the procalcitonin is much improved from approximately 30 at her last hospital visit. Her chart was reviewed and she did have a transthoracic echocardiogram that did not reveal any acute findings but this also does not 100% rule out endocarditis. Her INR is subtherapeutic at 1.7 and therefore to check for septic emboli versus missed pneumonia versus pulmonary embolus I did elect to perform a CTA of the chest. As her urine sample shows sterile pyuria there is concern this could be an intestinal infection such as appendicitis so the CT was continued through the abdomen and pelvis. Imaging studies revealed no obvious source of infection or PE. The patient's temperature eventually improved after the Tylenol and aspirin. As chart review revealed a felt that her symptoms were related to potential lupus flare at her last hospital admission I did elect to give her stress dose hydrocortisone. She was also treated with 2 L of fluid as she had physical exam findings consistent with dehydration. I did discuss the case with the hospitalist but he feels that as her previous workup here did not reveal any obvious cause of her fever and endocarditis is still not been 100% ruled out that she would do better going back to [facility] where her surgery was performed. Therefore I did contact cardiology initially and they agree that she needs to come back to their facility for continued workup regarding her fever of unknown origin but recommend she be admitted to medicine service so that they can incorporate multiple specialties to evaluate the patient regarding her symptoms. Secondary to this I did talk to the medicine physician at [facility] who agrees to accept the patient for further care. As the patient does not have an obvious source of infection at this time based on the labs images viral swabs and urine sample they recommend/agree that it is appropriate to withhold antibiotics at this time History & Record Review Discussion w/independent historian: Patient and Significant other Lab Data Attestation: I reviewed the patient's lab results. Labs: Laboratory Results - last 24 hr 01/02/24 02:15 WBC 5.2 RBC 3.91 L Hgb 10.8 L Hct 34.2 L MCV 87.5 MCH 27.6 MCHC 31.6 L RDW Std Deviation 49.4 H RDW Coeff of Giselle 15.6 H Plt Count 151 MPV 9.9 Immature Gran % (Auto) 1.000 H Neut % (Auto) 85.0 H Lymph % (Auto) 9.7 L Harris % (Auto) 3.1 Eos % (Auto) 0.4 Baso % (Auto) 0.8 Absolute Neuts (auto) 4.4 Absolute Lymphs (auto) 0.50 L Nucleated RBC % 0 PT 20.2 H INR 1.7 Sodium 138 Potassium 3.7 Chloride 106 Carbon Dioxide 26.0 Anion Gap 5 BUN 25 H Creatinine 1.24 H Estim Creat Clear Calc 61.84 Est GFR (MDRD) Af Amer 59 L Est GFR (MDRD) Non-Af 49 L BUN/Creatinine Ratio 20.2 H Glucose 100 Calcium 8.9 Magnesium 1.6 C-React Prot Ext Range 115.00 H Procalcitonin 1.87 H Urine Color Yellow Urine Clarity Clear Urine pH 6.0 Ur Specific [place] 1.010 Urine Protein 30 H Urine Glucose (UA) Normal Urine Ketones Negative Urine Occult Blood 25 H Urine Nitrite Negative Urine Bilirubin Negative Urine Urobilinogen Normal Ur Leukocyte Esterase 100 H Urine RBC 0 SEEN Urine WBC 10-25 SEEN Ur Squamous Epith Cells 0-5 SEEN Urine Bacteria 0 SEEN Urine Mucus 0 SEEN Radiography Diagnostic Testing: Clinical Impression(s) from Imaging Studies Chest X-Ray 01/02/24 02:30 IMPRESSION: No change. No acute disease. Electronically Signed: Jose Manuel Forde MD at 3:24 EDT , Abdomen/Pelvis CT 01/02/24 03:03 IMPRESSION: 1. No acute or inflammatory disease or bowel obstruction. 2. Stool and gas throughout the colon can be seen with constipation. 3. Nonspecific hepatosplenomegaly. Electronically Signed: Jose Manuel Forde MD at 4:31 EDT , Chest CTA 01/02/24 03:09 IMPRESSION: 1. Hepatosplenomegaly demonstrated. 2. Fluid: Large and small bowel loops without abnormal distention, wall thickening or surrounding inflammation can be seen with gastroenteritis. Electronically Signed: Jose Manuel Forde MD at 5:08 EDT Reading Location ID and State: [id number] / [employer] , Service support , Chest x-ray as interpreted by the emergency medicine physician reveals no acute infiltrate pneumothorax or pleural effusion Management Discussion w/another healthcare provider: Etiology Teacher Discharge Plan Triage Chief Complaint: Fever ED Provider: Jose Manuel Sanchez Dx/Rx/DC Orders Clinical Impression: Fever of unknown origin, SLE (systemic lupus erythematosus), Current use of penitentiary anticoagulation, Aortic insufficiency, Status post aortic valve replacement Prescriptions: No Action ergocalciferol (vitamin D2) 50,000 unit capsule 50,000 unit PO DAILY levetiracetam 1,000 mg tablet 1,000 mg PO BID Qty: 180 3RF metoprolol succinate 100 mg tablet extended release 24 hr 100 mg PO QAM Qty: 90 3RF Rx Instructions: 100 mg orally QAM; 100 mg qam, 50 mg qpm metoprolol succinate 50 mg tablet extended release 24 hr 50 mg PO QHS Qty: 90 3RF Rx Instructions: 100 mg in the AM and 50 mg in the evening aspirin 81 MG tablet,chewable 81 mg PO DAILY@0800 hydroxychloroquine 200 MG tablet 1 tab PO BID Patient Comments: UNKNOWN mycophenolate mofetil 500 mg tablet 250 mg PO ONCE Patient Comments: LOW PLATELETS rosuvastatin 10 mg tablet 10 mg PO DAILY acetaminophen 325 mg tablet 650 mg PO Q6H PRN PRN (Reason: mild pain) warfarin 4 mg tablet 4 mg PO DAILY Protocol: Dose Management Condition: Wednesday Dose/Route: 4 mg Instruction: 1 x 4 mg tablet Condition: Wednesday Dose/Route: 4 mg Instruction: 1 x 4 mg tablet Condition: Wednesday Dose/Route: 4 mg Instruction: 1 x 4 mg tablet Condition: Wednesday Dose/Route: 6 mg Instruction: 1.5 x 4 mg tablets Condition: Dose/Route: 6 mg Instruction: 1.5 x 4 mg tablets Condition: Wednesday Dose/Route: 4 mg Instruction: 1 x 4 mg tablet Condition: Wednesday Dose/Route: 4 mg Instruction: 1 x 4 mg tablet Protocol Text: Adjustment Start Date: Wednesday12/29/23 INR Value: 1.7 INR Date: 12/29/23 Recheck Date: 01/05/24 ferrous fumarate [Ferrocite] 324 mg (106 mg iron) tablet See Rx Instructions .ROUTE .COMPLEX Qty: 60 2RF Dose Instruction: TAKE 1 TABLET BY MOUTH TWICE A DAY Rx Instructions: TAKE 1 TABLET BY MOUTH TWICE A DAY Primary Care Provider: Esvin Hamlin Referrals: Esvin Hamlin MD [Primary Care Provider] - Print Language: Azeri Disposition Disposition: Acute Care Hospital Discharge Location: [facility]
--- NOTE | 2024-01-02 08:26 | NURSING ---
ACCEPTED, WAITING FOR BED AT [facility]
[2024-01-02] MEDS: Piperacil/Tazobactam 4.5 GM in 0.9% Normal Saline (100mL MB+) 100 ML IV (13:32)
--- NOTE | 2024-01-02 15:21 | HP.PCM.HOS_ITS ---
HPI - General General Date of Admission: 01/02/24 Date of Service: 01/02/24 Chief Complaint: Fevers/chills HPI Narrative JAKY WORTHY, is a 48 F with a history of lupus, mechanical aortic valve placed October 2023, celiac disease who presented [facility] ED 01/02/2024 due to fevers and chills. Patient was recently admitted for fever of unknown origin with no source found and ultimately was discharged home in stable condition. Since that time patient had been in her usual health however yesterday developed fevers and chills so she Re-presented to the ED. Patient with temperature of up to 103.3 while in the ED. Hospitalist contacted for admission however given she was recently here and no source identified and she has a fairly new mechanical aortic valve from [place] it was recommended that she be transferred to higher level of care. Patient accepted at [facility] and is awaiting bed. Given that it is unclear when bed will be available hospitalist contacted for admission while awaiting bed availability. Since initial evaluation blood cultures growing gram-negative rods and patient given Zosyn, has not had any more fever since that time and blood pressure has been improving. Patient evaluated at bedside reports she is feeling better now that she is not having the fevers and chills, had 1 episode of nausea yesterday but otherwise has completely negative ROS. Said she has celiac disease and ate something she should have yesterday and created that could be causing the fever but has no other indication of what could be causing this. FORMERLY [facility], [facility] Medical History Left leg swelling Right leg swelling Iron deficiency anemia Sternal wound dehiscence Adult celiac disease SLE (systemic lupus erythematosus) Lupus anticoagulant positive History of endocarditis Nonrheumatic aortic (valve) stenosis with insufficiency Chronic fatigue CKD (chronic kidney disease), stage II PAF (paroxysmal atrial fibrillation) CAD (coronary artery disease) Obesity Former tobacco use History of CVA (cerebrovascular accident) Seizures Carpal tunnel syndrome Arthritis Nonrheumatic aortic (valve) stenosis Essential hypertension Nonrheumatic aortic (valve) insufficiency Seizure disorder Female stress incontinence Home Medications ?Medication ?Instructions ?Recorded ?Last Taken ?Type aspirin 81 mg chewable tablet 81 mg PO DAILY@0800 [facility] 07/20/13 09/27/23 History hydroxychloroquine 200 mg tablet 1 tab PO BID lupus 07/20/13 Unknown History ergocalciferol (vitamin D2) 1,250 50,000 unit PO DAILY supplement 02/14/19 09/27/23 History mcg (50,000 unit) capsule mycophenolate mofetil 500 mg tablet 250 mg PO ONCE blood counts 05/14/21 09/27/23 History ferrous fumarate 324 mg (106 mg See Rx Instructions .Route 03/30/22 Unknown Rx iron) tablet (Ferrocite) .COMPLEX supplement #60 tabs rosuvastatin 10 mg tablet 10 mg PO DAILY cholesterol 06/03/22 Unknown History levetiracetam 1,000 mg tablet 1,000 mg PO BID seizures #180 tabs 06/23/23 Unknown Rx acetaminophen 325 mg tablet 650 mg PO Q6H PRN PRN mild pain 12/12/23 Unknown History warfarin 4 mg tablet 4 mg PO DAILY blood thinner 12/12/23 Unknown History metoprolol succinate 100 mg 100 mg PO QAM bp and heart #90 tabs 12/23/23 Unknown Rx tablet,extended release 24 hr metoprolol succinate 50 mg 50 mg PO QHS #90 tabs 12/23/23 Unknown Rx tablet,extended release 24 hr Allergy/AdvReac Type Severity Reaction Status Date / Time ketorolac tromethamine (From Allergy Severe Shortness Verified 01/02/24 01:38 Toradol) of breath Family History Grandmother CVA (cerebral vascular accident) Uterine cancer Uncle Heart disease Myocardial infarction CAD (coronary artery disease) Hypertension Mother Diabetes Father No problems noted. Surgical History (Updated 01/02/24 @ 08:[address] Jose Manuel Sanchez DO) H/O mechanical aortic valve replacement (11/05/23) History of tonsillectomy S/P hysterectomy Social History household members: spouse Smoking Status: Former smoker how long ago did patient quit smoking: Smoked ~ 1 ppd x 5 years, quit 05/28/2008 second hand exposure: No alcohol intake: current alcohol intake frequency: holidays/special occasions only substance use type: does not use caffeine: Yes Type: coffee Number of servings: 2 seatbelt use: never ROS ROS Narrative General: Fevers and chills HENT: Denies headache, denies stuffy nose, denies sore throat EYES: Denies changes in vision Resp: Denies cough, denies shortness of breath Cardiac: Denies chest pain GI: Denies abdominal pain, denies changes in bowel, little bit of nausea yesterday : Denies changes in urination Extremity: Denies swelling MSK: Denies weakness Neuro: Denies any numbness/tingling Heme: Denies any bleeding or bruising Skin: Denies rashes Psychiatric: No complaints voiced Vital Signs Vital Signs Vital Signs: 01/02/24 01:38 01/02/24 01:41 01/02/24 02:30 Temperature 103.3 F H 103.3 F H Temperature Source Oral Oral Pulse Rate 120 H 120 H 101 H Respiratory Rate 21 H 24 H 23 H Blood Pressure 101/57 L 101/57 L 103/59 L Blood Pressure Mean 71 71 73 Pulse Ox 95 94 97 Oxygen Delivery Method Room Air Room Air 01/02/24 02:41 01/02/24 03:00 01/02/24 03:00 Temperature 100 F H 100 F H Temperature Source Oral Oral Pulse Rate 93 92 93 Respiratory Rate 27 H 23 H 26 H Blood Pressure 100/62 95/55 L 95/55 L Blood Pressure Mean 74 68 68 Pulse Ox 97 97 96 Oxygen Delivery Method Room Air Room Air 01/02/24 04:00 01/02/24 04:00 01/02/24 05:00 Temperature 98.8 F Temperature Source Temporal Pulse Rate 90 90 88 Respiratory Rate 22 H 21 H 19 H Blood Pressure 100/57 L 100/57 L 95/55 L Blood Pressure Mean 71 71 68 Pulse Ox 94 94 96 Oxygen Delivery Method Room Air Room Air 01/02/24 06:00 01/02/24 07:00 01/02/24 07:32 Temperature 97.3 F L Temperature Source Oral Pulse Rate 79 74 72 Respiratory Rate 22 H 19 H 11 L Blood Pressure 85/51 L 92/55 L 94/58 L Blood Pressure Mean 62 67 70 Pulse Ox 93 93 95 Oxygen Delivery Method Room Air Room Air Room Air 01/02/24 08:00 01/02/24 09:00 01/02/24 10:00 Temperature 98.1 F 98.3 F Temperature Source Oral Oral Pulse Rate 68 62 66 Respiratory Rate 15 15 15 Blood Pressure 93/60 93/60 93/59 L Blood Pressure Mean 71 71 70 Pulse Ox 97 98 98 Oxygen Delivery Method Room Air Room Air Room Air 01/02/24 10:58 01/02/24 12:13 01/02/24 13:00 Temperature 98.1 F 98.1 F Temperature Source Oral Oral Pulse Rate 62 64 67 Respiratory Rate 15 15 18 Blood Pressure 92/68 87/58 L 112/67 Blood Pressure Mean 76 67 82 Pulse Ox 98 97 99 Oxygen Delivery Method Room Air Room Air Room Air 01/02/24 14:00 01/02/24 15:00 Temperature 98.2 F Temperature Source Oral Pulse Rate 69 70 Respiratory Rate 18 18 Blood Pressure 110/69 100/76 Blood Pressure Mean 82 84 Pulse Ox 100 100 Oxygen Delivery Method Room Air Room Air Weight Weight: 103.3 kg Body Mass Index (BMI) 41.6 Physical Exam Narrative General: Alert, oriented, no apparent distress HEENT: Atraumatic, normocephalic Eyes: Anicteric, normal conjunctiva, extraocular movements grossly intact Neck: Supple Respiratory: Clear to auscultation bilaterally, normal respiratory effort Cardiovascular: Regular rate and rhythm GI: Soft, nontender, nondistended Extremities: No edema Musculoskeletal: Moving all extremities Neuro: No overt focal neurological deficits Skin: No rashes appreciated Psych: Cooperative Results Lab / Micro Data 01/02/24 02:15 01/02/24 02:15 Labs: Laboratory Results - last 24 hr 01/02/24 02:15: WBC 5.2, RBC 3.91 L, Hgb 10.8 L, Hct 34.2 L, MCV 87.5, MCH 27.6, MCHC 31.6 L, RDW Std Deviation 49.4 H, RDW Coeff of Giselle 15.6 H, Plt Count 151, MPV 9.9, Immature Gran % (Auto) 1.000 H, Neut % (Auto) 85.0 H, Lymph % (Auto) 9.7 L, Irwin % (Auto) 3.1, Eos % (Auto) 0.4, Baso % (Auto) 0.8, Absolute Neuts (auto) 4.4, Absolute Lymphs (auto) 0.50 L, Nucleated RBC % 0, PT 20.2 H, INR 1.7, Sodium 138, Potassium 3.7, Chloride 106, Carbon Dioxide 26.0, Anion Gap 5, BUN 25 H, Creatinine 1.24 H, Estim Creat Clear Calc 61.84, Est GFR (MDRD) Af Amer 59 L, Est GFR (MDRD) Non-Af 49 L, BUN/Creatinine Ratio 20.2 H, Glucose 100, Calcium 8.9, Magnesium 1.6, C-React Prot Ext Range 115.00 H, Procalcitonin 1.87 H, Urine Color Yellow, Urine Clarity Clear, Urine pH 6.0, Ur Specific [place] 1.010, Urine Protein 30 H, Urine Glucose (UA) Normal, Urine Ketones Negative, U rine Occult Blood 25 H, Urine Nitrite Negative, Urine Bilirubin Negative, Urine Urobilinogen Normal, Ur Leukocyte Esterase 100 H, Urine RBC 0 SEEN, Urine WBC 10-25 SEEN, Ur Squamous Epith Cells 0-5 SEEN, Urine Bacteria 0 SEEN, Urine Mucus 0 SEEN Micro: Microbiology 01/02/24 02:15 Blood Culture (Wb) - Anticubital Right Blood Culture - Preliminary 01/02/24 02:15 Mucosa - Nasopharyngeal SARS-CoV-2, Influenza & RSV (PCR) - Final Imaging Radiology Impression Chest X-Ray 01/02/24 02:30 IMPRESSION: No change. No acute disease. Electronically Signed: Jose Manuel Forde MD at 3:24 EDT , Abdomen/Pelvis CT 01/02/24 03:03 IMPRESSION: 1. No acute or inflammatory disease or bowel obstruction. 2. Stool and gas throughout the colon can be seen with constipation. 3. Nonspecific hepatosplenomegaly. Electronically Signed: Jose Manuel Forde MD at 4:31 EDT , Chest CTA 01/02/24 03:09 IMPRESSION: 1. Hepatosplenomegaly demonstrated. 2. Fluid: Large and small bowel loops without abnormal distention, wall thickening or surrounding inflammation can be seen with gastroenteritis. Electronically Signed: Jose Manuel Forde MD at 5:08 EDT , Assessment & Plan Assessment/Plan (1) Bacteremia: PLAN: Plan #GNR bacteremia/fever -Patient presented with a temperature of 103.3 -Creatinine slightly increased at 1.24 and CRP 115 with Pro-Bairon 1.87 -No source identified but patient growing gram-negative rods in blood cultures -Started on Zosyn -Will continue Zosyn, continue gentle IV fluids -Awaiting bed at [facility] -BP somewhat soft in ED initially, improving w/ IVF but will decrease metoprolol dose in meatime # History of lupus -Continue hydroxychloroquine, given patient now has positive blood culture will hold mycophenolate Moffa till # Recent mechanical aortic valve placement -In October 2023 [facility] -INR 1.7 -Patient on 4 mg of Coumadin daily, will increase dose and trend INR # History of seizure disorder -Continue Keppra #Celiac disease -gluten free diet #DVT ppx: INR subtherapeutic, will place SCDs Debbie Montalvo MD
--- NOTE | 2024-01-02 15:41 | NURSING ---
GOT A BED AT [facility] MAIN, WILL ARRANGE TRANSPORT
--- NOTE | 2024-01-02 15:52 | NURSING ---
SQUAD ETA 45 MINUTES
[2024-01-02] MEDS: Ondansetron 4 MG/2 ML Vial IV (16:35)
[2024-01-02] MEDS: Acetaminophen 500 MG Tablet 1000 MG PO (16:49)
== END | disposition short-term general hospital (02) ==
LOC: ED 08:03 → PCU 15:38
PROVIDERS: Emergency Medicine; Emergency Provider Internal Medicine; PCP Family Medicine; Visit Provider Internal Medicine
DX: R50.9 Fever, unspecified (principal); I48.0 Paroxysmal atrial fibrillation; M32.9 Systemic lupus erythematosus, unspecified; I35.1 Nonrheumatic aortic (valve) insufficiency; Z95.2 Presence of prosthetic heart valve; R11.2 Nausea with vomiting, unspecified; Z90.710 Acquired absence of both cervix and uterus; Z82.3 Family history of stroke; I25.10 Atherosclerotic heart disease of native coronary artery without angina pectoris; Z87.891 Personal history of nicotine dependence; R82.81 Pyuria; R79.82 Elevated C-reactive protein (CRP); Z79.01 Long term (current) use of anticoagulants; E66.9 Obesity, unspecified; M79.10 Myalgia, unspecified site; R05.9 Cough, unspecified; Z79.82 Long term (current) use of aspirin; Z86.73 Personal history of transient ischemic attack (TIA), and cerebral infarction without residual deficits; N18.2 Chronic kidney disease, stage 2 (mild); I12.9 Hypertensive chronic kidney disease with stage 1 through stage 4 chronic kidney disease, or unspecified chronic kidney disease
CPT/HCPCS: 71045; 71275; 74177; 80048; 81001; 83735; 84145; 85025; 85610; 86140; 87040; 87077; 87086; 87088; 87186; 87631; 96361; 96374; 96375; 99284; J7030; Q9967; A4216; J2405

== ENCOUNTER 2024-01-10 13:04 | Outpatient (CLI) | payer OTHER, SELFPAY ==
[2023-12-29 09:12] VITALS: BMI 31.7
[2024-01-10 14:00] LABS: Erythrocyte Sedimentation Rate 18 mm/hr (0-30)
[2024-01-10 14:04] LABS: Hematocrit 33.2 % (37-47); Hemoglobin 10.3 g/dL (12.0-15.0); Mean Corpuscular Hgb 27.1 pg (27.0-32.0); Mean Corpuscular Volume 87.4 fL (81-99); Mean Platelet Vol. 9.7 fl (6.2-12.0); POSITIVE COUNT YES; POSITIVE MORPHOLOGY YES; Platelet Count 232 K/mm3 (150-450); RBC Distribution Width CV 15.7 % (11.6-14.6); RBC Distribution Width SD 49.3 fl (35.1-43.9)
[2024-01-10 14:04] LABS: Bacteria 0 SEEN /hpf (None Seen); Mucous, Urine 0 SEEN /hpf (<or=2+); Squamous Epithelial Cells - UA 0 SEEN /hpf (5-10); White Blood Cells 0 SEEN /hpf (0-5)
[2024-01-10 14:06] LABS: Differential Indicated MANUAL DIFF
[2024-01-10 14:06] LABS: Color, Urine Yellow (Yellow); Glucose, Dipstick Normal (Normal); Ketone-Dipstick Negative (Negative); Leukocyte Esterase-Dipstick Negative /ul (Negative); Nitrite-Dipstick Negative (Negative); Occult Blood-Urine 10 /ul (Negative); Protein-Dipstick 15 mg/dl (Negative); Specific Gravity, Urine 1.015 (1.002-1.030); Urine Bilirubin Dipstick Negative (Negative); Urine Clarity Clear (Clear); Urine Urobilinogen Normal (Normal)
[2024-01-10 14:16] LABS: AST(SGOT) 19 U/L (15-37); Alanine Aminotransfer ALT/SGPT 22 U/L (13-56); Alkaline Phosphatase 169 U/L (45-117); BUN 8 mg/dL (7-18); Bilirubin, Direct 0.15 mg/dL (0.00-0.30); Creatinine, Serum 0.83 mg/dL (0.55-1.02); EST Glomerular Filtration Rate 77 mL/min (>60); Est Glom Filt Rate - Afr Amer 94 mL/min (>60); Globulin 3.4 g/dL (2.2-4.2); International Normalized Ratio 1.5; Protein, Total 6.4 g/dL (6.4-8.2); Prothrombin Time (Protime)PT. 17.7 SECONDS (11.7-14.9)
[2024-01-10 14:44] LABS: Basophil 1 % (0-1); Eosinophil 2 % (0-5); Lymphocyte 26 % (19-41); Metamyelocyte 3 % (0-1); Monocyte 10 % (0-10); Myelocyte 4 % (0-0); Neutrophil-Segmented 54 % (47-70); Platelet Estimate ADEQUATE (ADEQ); Red Cell Morphology NORM C+C NORMAL (NORM C&C); Total Cells Counted 100 (MANUAL DIFF)
[2024-01-10 14:45] LABS: Absolute Neutrophil Count 3.2 X10^3/uL (2.0-7.7)
[2024-01-10 14:46] LABS: Red Blood Cells-Urine 0-5 SEEN /hpf (0-5)
[2024-01-11 13:10] LABS: Pathologist Review Reviewed
[2024-01-12 08:13] LABS: Complement C3 124 mg/dL (82-167)
[2024-01-12 11:09] LABS: Anti-dsDNA Ab 2 IU/mL (0-9)
== END 2024-01-10 23:59 | disposition home or self-care (01) ==
LOC: MEDOUTP 13:11
PROVIDERS: Internal Medicine Rheumatology; PCP Family Medicine; Referring Provider Internal Medicine Infectious Disease; Visit Provider Internal Medicine Infectious Disease
DX: Z45.2 Encounter for adjustment and management of vascular access device (principal); R50.9 Fever, unspecified; R78.81 Bacteremia; Z95.2 Presence of prosthetic heart valve; Z79.01 Long term (current) use of anticoagulants
CPT/HCPCS: 36592; 80076; 81001; 82565; 84520; 85025; 85610; 85652; 86140; 86160; 86225; A4216

== ENCOUNTER 2024-01-11 14:15 | Outpatient (RCR) | payer OTHER, SELFPAY ==
[2023-11-29 08:53] VITALS: BMI 34.4
[2023-12-21 13:09] VITALS: BP 120/72; PULSE 68; RESP 18; TEMP 36.9; BMI 31.6
--- NOTE | 2023-12-22 11:32 | WC ---
PHOTO SUP. CHEST 12/21/2023
--- NOTE | 2023-12-22 11:37 | WC ---
PHOTO 12/21/2023 [facility] CHEST
--- NOTE | 2023-12-22 15:54 | PCM.WC.HP ---
History of Present Illness Date of Service: 12/21/23 Chief Complaint: Sternal incisional wound dehiscence History of Wound: This is a 48-year-old female who presented with a sternal incisional wound dehiscence. She underwent a [place] Andrés aortic valve replacement in early November 2023 at the [facility]. She subsequently developed a surgical wound dehiscence, associated with a post-operative wound infection. Wound cultures were positive for MRSA. She was treated with a course of doxycycline. Treatment related to her sternal wound dehiscence included the use of alginate topically. She has been referred for definitive evaluation and management. The patient denies the use of tobacco products. 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. She is on warfarin, the result of a recent placement of a mechanical aortic valve. She is ambulatory. She has noted swelling in her lower extremities recently, for which she has been prescribed Lasix by other physicians. She denies a history of thrombophlebitis. She is a Ab2. She remains under the care of of her cardiac surgeon. [facility] Medical History Sternal wound dehiscence Adult celiac disease SLE (systemic lupus erythematosus) Lupus anticoagulant positive History of endocarditis Nonrheumatic aortic (valve) stenosis with insufficiency Chronic fatigue CKD (chronic kidney disease), stage II PAF (paroxysmal atrial fibrillation) CAD (coronary artery disease) Obesity Former tobacco use History of CVA (cerebrovascular accident) Iron deficiency anemia Seizures Carpal tunnel syndrome Arthritis Nonrheumatic aortic (valve) stenosis Essential hypertension Nonrheumatic aortic (valve) insufficiency Seizure disorder Female stress incontinence Home Medications ?Medication ?Instructions ?Recorded ?Last Taken ?Type aspirin 81 mg chewable tablet 81 mg PO DAILY@0800 heart health 07/20/13 09/27/23 History hydroxychloroquine 200 mg tablet 1 tab PO BID lupus 07/20/13 Unknown History ergocalciferol (vitamin D2) 1,250 50,000 unit PO DAILY supplement 02/14/19 09/27/23 History mcg (50,000 unit) capsule mycophenolate mofetil 500 mg tablet 250 mg PO ONCE blood counts 05/14/21 09/27/23 History ferrous fumarate 324 mg (106 mg See Rx Instructions .Route 03/30/22 Unknown Rx iron) tablet (Ferrocite) .COMPLEX supplement #60 tabs rosuvastatin 10 mg tablet 10 mg PO DAILY cholesterol 06/03/22 Unknown History levetiracetam 1,000 mg tablet 1,000 mg PO BID seizures #180 tabs 06/23/23 Unknown Rx acetaminophen 325 mg tablet 650 mg PO Q6H PRN PRN mild pain 12/12/23 Unknown History amiodarone 200 mg tablet 200 mg PO DAILY heart 12/12/23 Unknown History metoprolol succinate 100 mg 100 mg PO DAILY bp and heart 12/12/23 Unknown History tablet,extended release 24 hr oxycodone 5 mg tablet 5 mg PO Q6H PRN PRN pain 12/12/23 Unknown History warfarin 4 mg tablet 4 mg PO DAILY blood thinner 12/12/23 Unknown History Allergy/AdvReac Type Severity Reaction Status Date / Time ketorolac tromethamine (From Allergy Severe Shortness Verified 12/21/23 13:09 Toradol) of breath Family History Grandmother CVA (cerebral vascular accident) Uterine cancer Uncle Heart disease Myocardial infarction CAD (coronary artery disease) Hypertension Mother Diabetes Father No problems noted. Surgical History S/P hysterectomy H/O mechanical aortic valve replacement (11/05/23) History of tonsillectomy Social History household members: spouse Smoking Status: Former smoker how long ago did patient quit smokin years ago second hand exposure: No alcohol intake: current alcohol intake frequency: a few times a month substance use type: does not use caffeine: Yes Type: coffee Number of servings: 2 seatbelt use: never Vital Signs Vital Signs Vital Signs: Weight Weight: 173 lb Body Mass Index (BMI) 31.6 Physical Exam Const alert, oriented x3, no apparent distress, no limitations and well nourished Constitutional Narrative: The patient's BMI is 31.6. General Appearance: cooperative, comfortable, well kempt and well developed Orientation / Consciousness: awake, oriented to person, oriented to place and oriented to time Exam Limitations: no limitations HEENT normocephalic, head/scalp atraumatic and hearing grossly normal bilaterally Head and Scalp: normal to inspection, normocephalic and atraumatic Face and Sinus: normal facial exam Nose: external nose normal External Ear: external ears normal Eyes EOMs intact bilaterally General Eye: normal appearance of both eyes Neck full ROM Resp normal respiratory effort, normal air movement, no retractions and no use of accessory muscles Effort and Inspection: able to speak in complete sentences Extremity no calf tenderness Extremity Narrative: Mild swelling is noted bilaterally in the patient's lower extremities. General Extremity: Negative for clubbing or cyanosis Skin Wound Narrative: A vertical sternal incision is noted. A small area at each pole of the incision is dehiscent. The dehiscence extends through all dermal layers and into the subcutaneous tissues. These areas are at the superior and inferior portions of the incision. There is no sign of infection or cellulitis. Dimensions are noted elsewhere. There is a moderate amount of bioburden. Neuro oriented x3, CN's II-XII intact bilaterally, moves all extremities, no focal motor deficits and no sensory deficits noted Sensorium / Orientation: awake, alert, oriented to person, oriented to place and oriented to time Psych Appearance: grossly normal and appropriate Attitude: calm Activity / Motor Behavior: appropriate eye contact Speech: normal speech Mood & Affect: euthymic mood Thought Process: normal thought process Thought Content: normal thought content Attention / Concentration: attention grossly intact Debridement Note Debridement Note Wound debrided: Dehiscent sternal incision Laterality: Not Applicable Type of Debridement: Excisional debridement Anesthesia Used: 5% Lidocaine Gel Depth: Down to and including healthy tissue and in the subcutaneous layer Percentage of wound debrided: 100 Instrument Used: 5mm curette Tissue Removed: Bioburden Severity: Fat Layer Exposed Amount of bleeding with debridement: Mild Bleeding Controlled with: Compression and gauze Patient tolerated procedure: Patient tolerated procedure well Post-Debridement Measurements and Additional Note: Post-Debridement Measurements/Treatment JAH - Nurse 1 - General Ulcer Assessment Start: 12/21/23 13:09 Freq: Status: Active Protocol: THAI Activity Type Activity Date Activity User E-sign Co-sign Detail Recorded Client Recorded Date Recorded By Document 12/21/23 13:09 TRINITY [id number] 12/21/23 13:20 KW 12/21/23 13:09 JAH - Today's Visit Information Type of service Initial Visit Arrival Mode Ambulatory Accompanied by Patient Identification Verified (Name & Yes ) Height and Weight Height 5 ft 2 in Weight 173 lb Weight in Pounds 173.0 lbs Body Mass Index (BMI) 31.6 BMI Classification Obese BSA - [place] 1.80 Vital Signs Temperature (97.8 F-99.1 F) 98.4 F Temperature Source Temporal Pulse Rate (60-100) 68 Pulse Location Monitor Respiratory Rate (12-18) 18 Respiratory rate source Observation Oxygen Delivery Method Room Air Blood Pressure (90/60-120/80) 120/72 Blood Pressure Mean 88 Source Monitor Position Sitting Blood Pressure Location Left Arm History Since Last Visit- (Skip if this is Patient's initial visit) Left Footwear Regular Shoe Right Footwear Regular Shoe Pain Scale: 0-10 Numeric Is Patient Pain Free? 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 Required No Able to Read Yes Able to Write Yes Communication Tools None Caregiver Communication Skills No Impairment Impairment Right Hearing Abillity Normal Left Hearing Abillity Normal Visual Assistive Devices Glasses Teaching Assessment Preferences Verbal,Written, Demonstration Barriers to Learning None Readiness To Learn Excellent Willingness to Engage in Self Management High Activies Readiness to Engage in Self Management High Activities Anxiety Level Calm Cooperation Cooperative Interest in Health Problem Asks Questions Education Importance Acknowledges Need Does Patient Smoke tobacco or other Yes substances Smoking Status Former smoker Is Patient Diabetic No Functional Assessment Recent Decline in Ability to Perform Denies Any Declines Culture/Hoahaoism/Transition Program Manager Cultural/Hoahaoism Needs that may affect No Treatment Plan Would you allow our [facility] splicing machine operator to No meet you for the purpose of spiritual/ emotional support? Transition Program Manager to contact place of restorationism No WC - Nurse 1 - General Ulcer Measurement Start: 12/21/23 13:09 Freq: Status: Active Protocol: Activity Type Activity Date Activity User E-sign Co-sign Detail Recorded Client Recorded Date Recorded By Document 12/21/23 13:09 KW [id number] 12/21/23 13:20 KW 12/21/23 13:09 Wound Center Nurse 1 #2 SUP CHEST -Current Size (cm) - Length 1 -Current Size (cm) - Width 0.9 -Current Size (cm) - Depth 0.2 -Total Square Cm 0.9 -Date of Last Picture (Recall this 12/21/23 field) -Exudate Amt Small -Exudate Type Serosanguineous -Wound Margin Distinct, Outline Attached -Granulation Amt Large (67-100%) -Granulation Quality Red -Necrosis Amt Small (1-33%) -Necrotic Tissue Type Adherent Slough -Texture (Cassy-wound Skin Appearance) Assessed -Moisture (Cassy-wound Skin Appearance) Assessed -Color (Cassy-wound Skin Appearance) Assessed -Temperature (Cassy-wound Skin No Abnormality Appearance) (Pt Warm) -Tenderness on Palpation (Cassy-wound No Skin Appearance) -Ulcer Cleansing Rinsed/ Irrigated with Saline -Foul Odor after Cleansing No -Anesthetic Used 5% Lidocaine Gel #1 INF. CHEST -Current Size (cm) - Length 1.2 -Current Size (cm) - Width 0.7 -Current Size (cm) - Depth 0.2 -Total Square Cm 0.84 -Date of Last Picture (Recall this 12/21/23 field) -Exudate Amt Small -Exudate Type Serosanguineous -Wound Margin Distinct, Outline Attached -Granulation Amt Large (67-100%) -Granulation Quality Red -Necrosis Amt Small (1-33%) -Necrotic Tissue Type Adherent Slough -Texture (Cassy-wound Skin Appearance) Assessed -Moisture (Cassy-wound Skin Appearance) Assessed -Color (Cassy-wound Skin Appearance) Assessed -Temperature (Cassy-wound Skin No Abnormality Appearance) (Pt Warm) -Tenderness on Palpation (Cassy-wound No Skin Appearance) -Ulcer Cleansing Rinsed/ Irrigated with Saline -Foul Odor after Cleansing No -Anesthetic Used 5% Lidocaine Gel WC - Nurse 2 - General Ulcer CM Notes Start: 12/21/23 13:09 Freq: Status: Active Protocol: Activity Type Activity Date Activity User E-sign Co-sign Detail Recorded Client Recorded Date Recorded By Document 12/21/23 13:55 DS [id number] 12/21/23 13:57 DS 12/21/23 13:55 Wound Center Nurse 2 #2 SUP CHEST -Time 13:45 -Correct Patient Yes -Correct Side, Site, Position Yes -Correct Procedure Yes -Procedure Performed Yes -Type of Procedure Debridement -Clinical Debridement Subcutaneous -Tissue Removed Subcutaneous -Post Debridement (cm) - Length 1.0 -Post Debridement (cm) - Width 0.9 -Post Debridement (cm) - Depth 0.3 -Total Square (Post) (cm) 0.90 -Area of Debridement (cm) - Length 1.0 -Area of Debridement (cm) - Width 0.9 -Total Square (Area) (cm) 0.90 -Tunneling No -Undermining/Tunneling No -Circular Undermining No -Wound/Ulcer Outcome Not Healed -Ulcer Cleansing Rinsed/ Irrigated with Saline -Bioengineered Tissue No -Bleeding Controlled with Pressure -Treatment Response Procedure Tolerated Well -Debridement - Subq, 1st 20sq cm Yes #1 INF. CHEST -Time 13:50 -Correct Patient Yes -Correct Side, Site, Position Yes -Correct Procedure Yes -Procedure Performed Yes -Type of Procedure Debridement -Clinical Debridement Subcutaneous -Tissue Removed Subcutaneous -Post Debridement (cm) - Length 1.0 -Post Debridement (cm) - Width 1.0 -Post Debridement (cm) - Depth 0.3 -Total Square (Post) (cm) 1.00 -Area of Debridement (cm) - Length 1.0 -Area of Debridement (cm) - Width 1.0 -Total Square (Area) (cm) 1.00 -Tunneling No -Undermining/Tunneling No -Circular Undermining No -Wound/Ulcer Outcome Not Healed -Ulcer Cleansing Rinsed/ Irrigated with Saline -Bioengineered Tissue No -Bleeding Controlled with Pressure -Treatment Response Procedure Tolerated Well -Debridement - Subq, 1st 20sq cm No Pain Scale: 0-10 Numeric Is Patient Pain Free? Yes - Nurse 3 - General Ulcer D/C NN Start: 12/21/23 13:09 Freq: Status: Active Protocol: Activity Type Activity Date Activity User E-sign Co-sign Detail Recorded Client Recorded Date Recorded By Document 12/21/23 14:04 [id number] 12/21/23 14:05 12/21/23 14:04 Wound Care Center Nurse 3 #2 SUP CHEST -Primary Dressing Applied Aquacel Extra -Primary Dressing Covered/Secured with Dry Gauze, Secured with Tape -Aquacel Extra 1 #1 INF. CHEST -Other Dressing aquacel extra -Primary Dressing Covered/Secured with Dry Gauze, Secured with Tape Pain Scale: 0-10 Numeric Is Patient Pain Free? Yes Charges/Coding Multi Select Codes Visit Charges Office Visit/Consults: 13706 OV L4 New 45 min Integumentary Integumentary CPT Codes: 80476 Kristel subq tissue 20 sq cm/< Assessment/Plan Assessment/Plan (1) Sternal wound dehiscence: CODE(S): T81.328A - Disruption or dehiscence of closure of other specified internal operation (surgical) wound, initial encounter QUALIFIERS: Encounter type: initial encounter Qualified Code(s): T81.328A - Disruption or dehiscence of closure of other specified internal operation (surgical) wound, initial encounter (2) H/O mechanical aortic valve replacement: CODE(S): Z95.2 - Presence of prosthetic heart valve (3) History of cerebrovascular disease: CODE(S): Z86.79 - Personal history of other diseases of the circulatory system (4) group home current use of anticoagulant: CODE(S): Z79.01 - group home (current) use of anticoagulants (5) Epilepsy: CODE(S): G40.909 - Epilepsy, unspecified, not intractable, without status epilepticus QUALIFIERS: Epilepsy type: other generalized Intractability: not intractable Status epilepticus: without status epilepticus Qualified Code(s): G40.409 - Other generalized epilepsy and epileptic syndromes, not intractable, without status epilepticus (6) Essential hypertension: CODE(S): I10 - Essential (primary) hypertension (7) Anticardiolipin antibody positive: CODE(S): R76.0 - Raised antibody titer (8) Low back pain: CODE(S): M54.50 - Low back pain, unspecified (9) Chronic fatigue: CODE(S): R53.82 - Chronic fatigue, unspecified (10) Nonrheumatic aortic (valve) stenosis with insufficiency: CODE(S): I35.2 - Nonrheumatic aortic (valve) stenosis with insufficiency (11) CKD (chronic kidney disease), stage II: CODE(S): N18.2 - Chronic kidney disease, stage 2 (mild) (12) History of endocarditis: CODE(S): Z86.79 - Personal history of other diseases of the circulatory system (13) Adult celiac disease: CODE(S): K90.0 - Celiac disease (14) Lupus anticoagulant positive: CODE(S): R76.0 - Raised antibody titer (15) SLE (systemic lupus erythematosus): CODE(S): M32.9 - Systemic lupus erythematosus, unspecified QUALIFIERS: Systemic lupus erythematosus type: unspecified Systemic lupus erythematosus organ involvement: unspecified Qualified Code(s): M32.9 - Systemic lupus erythematosus, unspecified (16) History of tonsillectomy: CODE(S): Z90.89 - Acquired absence of other organs (17) S/P hysterectomy: CODE(S): Z90.710 - Acquired absence of both cervix and uterus (18) Bicuspid aortic valve with ascending aorta greater than 4.0 cm in diameter: CODE(S): Q23.1 - Congenital insufficiency of aortic valve (19) Nonrheumatic aortic (valve) stenosis: CODE(S): I35.0 - Nonrheumatic aortic (valve) stenosis (20) Nonrheumatic aortic (valve) insufficiency: CODE(S): I35.1 - Nonrheumatic aortic (valve) insufficiency PLAN: Plan This is a 48-year-old female who underwent a [place] Andrés aortic valve replacement at the [facility] in early November 2023. She has experienced a surgical wound dehiscence, for which she presented for definitive evaluation and management. The patient has been advised to optimize her nutritional intake. We are to implement the use of Aquacel Extra topically to the dehiscent portions of the patient's surgical wound. This is to be applied topically on a daily basis. The patient has been instructed in the appropriate means of application. With respect to the swelling in that her lower extremities, the patient has been advised to elevate her lower extremities to heart level, as much as possible. She is to continue sleeping on a flat mattress at night. She is to elevate her lower extremities is much as possible even during daytime hours. Activity has been encouraged. Prolonged idle sitting has been discouraged. The patient is to return in 1 week for reevaluation. The patient's questions have been answered. Total time: 48 minutes
[2023-12-28 15:26] VITALS: BP 111/69; PULSE 67; RESP 18; TEMP 35.7; BMI 31.6
--- NOTE | 2023-12-28 16:24 | HP.PCM_ITS ---
History of Present Illness Date of Service: 12/28/23 Chief Complaint: Sternal incisional wound dehiscence History of Wound: This is a 48-year-old female who presented with a sternal incisional wound dehiscence. She underwent a [place] aortic valve replacement in early November 2023 at the [facility]. She subsequently developed a surgical wound dehiscence, associated with a post-operative wound infection. Wound cultures were positive for MRSA. She was treated with a course of doxycycline. Treatment related to her sternal wound dehiscence included the use of alginate topically. She has been referred for definitive evaluation and management. The patient denies the use of tobacco products. She is on warfarin, the result of a recent placement of a mechanical aortic valve. She is ambulatory. She has noted swelling in her lower extremities recently, for which she has been prescribed Lasix by other physicians. She denies a history of thrombophlebitis. She is a Ab2. She remains under the care of of her cardiac surgeon. [facility] Medical History (Updated 12/28/23 @ 16:[address] Prince Turner MD) Left leg swelling Right leg swelling Iron deficiency anemia Sternal wound dehiscence Adult celiac disease SLE (systemic lupus erythematosus) Lupus anticoagulant positive History of endocarditis Nonrheumatic aortic (valve) stenosis with insufficiency Chronic fatigue CKD (chronic kidney disease), stage II PAF (paroxysmal atrial fibrillation) CAD (coronary artery disease) Obesity Former tobacco use History of CVA (cerebrovascular accident) Seizures Carpal tunnel syndrome Arthritis Nonrheumatic aortic (valve) stenosis Essential hypertension Nonrheumatic aortic (valve) insufficiency Seizure disorder Female stress incontinence Home Medications ?Medication ?Instructions ?Recorded ?Last Taken ?Type aspirin 81 mg chewable tablet 81 mg PO DAILY@0800 [facility] 07/20/13 09/27/23 History hydroxychloroquine 200 mg tablet 1 tab PO BID lupus 07/20/13 Unknown History ergocalciferol (vitamin D2) 1,250 50,000 unit PO DAILY supplement 02/14/19 09/27/23 History mcg (50,000 unit) capsule mycophenolate mofetil 500 mg tablet 250 mg PO ONCE blood counts 05/14/21 4 History ferrous fumarate 324 mg (106 mg See Rx Instructions .Route 03/30/22 Unknown Rx iron) tablet (Ferrocite) .COMPLEX supplement #60 tabs rosuvastatin 10 mg tablet 10 mg PO DAILY cholesterol 06/03/22 Unknown History levetiracetam 1,000 mg tablet 1,000 mg PO BID seizures #180 tabs 06/23/23 Unknown Rx acetaminophen 325 mg tablet 650 mg PO Q6H PRN PRN mild pain 12/12/23 Unknown History oxycodone 5 mg tablet 5 mg PO Q6H PRN PRN pain 12/12/23 Unknown History warfarin 4 mg tablet 4 mg PO DAILY blood thinner 12/12/23 Unknown History metoprolol succinate 100 mg 100 mg PO QAM bp and heart #90 tabs 12/23/23 Unknown Rx tablet,extended release 24 hr metoprolol succinate 50 mg 50 mg PO QHS #90 tabs 12/23/23 Unknown Rx tablet,extended release 24 hr Allergy/AdvReac Type Severity Reaction Status Date / Time ketorolac tromethamine (From Allergy Severe Shortness Verified 12/23/23 12:59 Toradol) of breath Family History Grandmother CVA (cerebral vascular accident) Uterine cancer Uncle Heart disease Myocardial infarction CAD (coronary artery disease) Hypertension Mother Diabetes Father No problems noted. Surgical History S/P hysterectomy H/O mechanical aortic valve replacement (11/05/23) History of tonsillectomy Social History household members: spouse Smoking Status: Former smoker how long ago did patient quit smoking: Smoked ~ 1 ppd x 5 years, quit 05/28/2008 second hand exposure: No alcohol intake: current alcohol intake frequency: holidays/special occasions only substance use type: does not use caffeine: Yes Type: coffee Number of servings: 2 seatbelt use: never Vital Signs Vital Signs Vital Signs: 12/28/23 15:26 Temperature 96.2 F L Temperature Source Temporal Pulse Rate 67 Respiratory Rate 18 Blood Pressure 111/69 Blood Pressure Mean 83 Blood Pressure Source Monitor Blood Pressure Position Semi-Fowlers Blood Pressure Location Left Arm Weight Weight: 173 lb Body Mass Index (BMI) 31.6 Physical Exam Const alert, oriented x3, no apparent distress, no limitations and well nourished Constitutional Narrative: The patient's BMI is 31.6. General Appearance: cooperative, comfortable, well kempt and well developed Orientation / Consciousness: awake, oriented to person, oriented to place and oriented to time Exam Limitations: no limitations HEENT normocephalic, head/scalp atraumatic and hearing grossly normal bilaterally Head and Scalp: normal to inspection, normocephalic and atraumatic Face and Sinus: normal facial exam Nose: external nose normal External Ear: external ears normal Eyes EOMs intact bilaterally General Eye: normal appearance of both eyes Neck full ROM Resp normal respiratory effort, normal air movement, no retractions and no use of accessory muscles Effort and Inspection: able to speak in complete sentences Extremity no calf tenderness Extremity Narrative: Mild swelling is noted bilaterally in the patient's lower extremities, though it appears to be improving. General Extremity: Negative for clubbing or cyanosis Skin Wound Narrative: A vertical sternal incision is noted. A small area at each pole of the incision is dehiscent -superior and inferior. The dehiscence extends through all dermal layers and into the subcutaneous tissues. There is no sign of infection or cellulitis. Dimensions are noted elsewhere. There is a small amount of bioburden. The dehiscent wounds appear slightly smaller than noted previously. There is a small area of discoloration centrally within the incision, though the scar appears to remain intact and without compromise. Neuro oriented x3, CN's II-XII intact bilaterally, moves all extremities, no focal motor deficits and no sensory deficits noted Sensorium / Orientation: awake, alert, oriented to person, oriented to place and oriented to time Psych Appearance: grossly normal and appropriate Attitude: calm Activity / Motor Behavior: appropriate eye contact Speech: normal speech Mood & Affect: euthymic mood Thought Process: normal thought process Thought Content: normal thought content Attention / Concentration: attention grossly intact Debridement Note Debridement Note Wound debrided: Dehiscent sternal incision Laterality: Not Applicable Type of Debridement: Excisional debridement Anesthesia Used: 5% Lidocaine Gel and Cetacaine Depth: Down to and including healthy tissue and in the subcutaneous layer Percentage of wound debrided: 100 Instrument Used: 3mm curette Tissue Removed: Bioburden Severity: Fat Layer Exposed Amount of bleeding with debridement: Mild Bleeding Controlled with: Compression and gauze Patient tolerated procedure: Patient tolerated procedure well Post-Debridement Measurements and Additional Note: Post-Debridement Measurements/Treatment WC - Nurse 1 - General Ulcer Assessment Start: 12/21/23 13:09 Freq: Status: Active Protocol: [email or web address] Activity Type Activity Date Activity User E-sign Co-sign Detail Recorded Client Recorded Date Recorded By Document 12/21/23 13:09 KW [id number] 12/21/23 13:20 KW Document 12/28/23 15:26 RB [id number] 12/28/23 15:39 RB 12/21/23 12/28/23 13:09 15:26 - Today's Visit Information Type of service Initial Visit Follow-up Visit (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 ) Arrival Mode Ambulatory Ambulatory Transfer Assistance None Accompanied by Patient Identification Verified (Name & Yes Yes ) Patient Requires Transmission-Based No Precautions Height and Weight Height 5 ft 2 in Weight 173 lb Weight in Pounds 173.0 lbs Body Mass Index (BMI) 31.6 31.6 BMI Classification Obese Obese BSA - [place] 1.80 Vital Signs Temperature (97.8 F-99.1 F) 98.4 F 96.2 F L Temperature Source Temporal Temporal Pulse Rate (60-100) 68 67 Pulse Location Monitor Monitor Respiratory Rate (12-18) 18 18 Respiratory rate source Observation Observation Oxygen Delivery Method Room Air Blood Pressure (90/60-120/80) 120/72 111/69 Blood Pressure Mean 88 83 Source Monitor Monitor Position Sitting Semi-Fowlers Blood Pressure Location Left Arm Left Arm History Since Last Visit- (Skip if this is Patient's initial visit) Have you changed medications since your No last visit? Any new allergies or adverse reactions No Had a fall/change in ADL's that may No increase risk of falls Signs or symptoms of abuse and/or No neglect since last visit Have you been in the hospital since your No last visit? Has dressing in place as prescribed Yes Has compression in place as prescribed No Has offloadiing in place as prescribed No Experienced any changes in pain level or No management Left Footwear Regular Shoe Right Footwear Regular Shoe Pain Scale: 0-10 Numeric Is Patient Pain Free? No Yes chest -Intensity 3 Communication Assessment Preferred language [place] Pneumatic Systems Operator Required No Able to Read Yes Able to Write Yes Communication Tools None Caregiver Communication Skills No Impairment Impairment Right Hearing Abillity Normal Left Hearing Abillity Normal Visual Assistive Devices Glasses Teaching Assessment Preferences Verbal,Written, Demonstration Barriers to Learning None Readiness To Learn Excellent Willingness to Engage in Self Management High Activies Readiness to Engage in Self Management High Activities Anxiety Level Calm Cooperation Cooperative Interest in Health Problem Asks Questions Education Importance Acknowledges Need Does Patient Smoke tobacco or other Yes substances Smoking Status Former smoker Is Patient Diabetic No Functional Assessment Recent Decline in Ability to Perform Denies Any Declines Culture/Mormonism/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 Resistance to contact place of mormon No WC - Nurse 1 - General Ulcer Measurement Start: 12/21/23 13:09 Freq: Status: Active Protocol: Activity Type Activity Date Activity User E-sign Co-sign Detail Recorded Client Recorded Date Recorded By Document 12/21/23 13:09 KW [id number] 12/21/23 13:20 KW Document 12/28/23 15:26 RB [id number] 12/28/23 15:39 RB 12/21/23 12/28/23 13:09 15:26 Wound Center Nurse 1 #2 SUP CHEST -Combined with other wound No -Current Size (cm) - Length 1 0.6 -Current Size (cm) - Width 0.9 0.4 -Current Size (cm) - Depth 0.2 0.1 -Total Square Cm 0.9 0.24 -Date of Last Picture (Recall this 12/21/23 field) -Photo Taken Yes -Tunneling No -Undermining/Tunneling No -Circular Undermining No -Exudate Amt Small Medium -Exudate Type Serosanguineous Serosanguineous -Wound Margin Distinct, Distinct, Outline Outline Attached Attached -Granulation Amt Large (67-100%) Medium (34-66%) -Granulation Quality Red [place] -Slough/Fibrin Yes -Necrosis Amt Small (1-33%) Medium (34-66%) -Necrotic Tissue Type Adherent Slough Adherent Slough -Structure Exposed N/A -Texture (Cassy-wound Skin Appearance) Assessed Assessed -Moisture (Cassy-wound Skin Appearance) Assessed Assessed -Color (Cassy-wound Skin Appearance) Assessed Assessed -Temperature (Cassy-wound Skin No Abnormality No Abnormality Appearance) (Pt Warm) (Pt Warm) -Tenderness on Palpation (Cassy-wound No No Skin Appearance) -Ulcer Cleansing Rinsed/ Wound Cleanser Irrigated with Saline -Foul Odor after Cleansing No No -Anesthetic Used 5% Lidocaine 5% Lidocaine Gel Gel #1 INF. CHEST -Combined with other wound No -Current Size (cm) - Length 1.2 0.1 -Current Size (cm) - Width 0.7 0.1 -Current Size (cm) - Depth 0.2 0.1 -Total Square Cm 0.84 0.01 -Date of Last Picture (Recall this 12/21/23 field) -Photo Taken Yes -Epithelialization Large 67-100% -Tunneling No -Undermining/Tunneling No -Circular Undermining No -Exudate Amt Small None Present -Exudate Type Serosanguineous -Wound Margin Distinct, Distinct, Outline Outline Attached Attached -Granulation Amt Large (67-100%) Large (67-100%) -Granulation Quality Red [place] -Slough/Fibrin No -Necrosis Amt Small (1-33%) None Present (0 %) -Necrotic Tissue Type Adherent Slough -Structure Exposed N/A -Texture (Cassy-wound Skin Appearance) Assessed Scarring -Moisture (Cassy-wound Skin Appearance) Assessed Assessed -Color (Cassy-wound Skin Appearance) Assessed Assessed -Temperature (Cassy-wound Skin No Abnormality No Abnormality Appearance) (Pt Warm) (Pt Warm) -Tenderness on Palpation (Cassy-wound No No Skin Appearance) -Ulcer Cleansing Rinsed/ Wound Cleanser Irrigated with Saline -Foul Odor after Cleansing No No -Anesthetic Used 5% Lidocaine 5% Lidocaine Gel Gel WC - Nurse 2 - General Ulcer CM Notes Start: 12/21/23 13:09 Freq: Status: Active Protocol: Activity Type Activity Date Activity User E-sign Co-sign Detail Recorded Client Recorded Date Recorded By Document 12/21/23 13:55 DS [id number] 12/21/23 13:57 DS Document 12/28/23 15:46 DS [id number] 12/28/23 15:53 DS 12/21/23 12/28/23 13:55 15:46 Wound Center Nurse 2 #2 SUP CHEST -Time 13:45 15:46 -Correct Patient Yes Yes -Correct Side, Site, Position Yes Yes -Correct Procedure Yes Yes -Procedure Performed Yes Yes -Type of Procedure Debridement Debridement -Clinical Debridement Subcutaneous Subcutaneous -Tissue Removed Subcutaneous Subcutaneous -Post Debridement (cm) - Length 1.0 0.7 -Post Debridement (cm) - Width 0.9 0.4 -Post Debridement (cm) - Depth 0.3 0.1 -Total Square (Post) (cm) 0.90 0.28 -Area of Debridement (cm) - Length 1.0 0.7 -Area of Debridement (cm) - Width 0.9 0.4 -Total Square (Area) (cm) 0.90 0.28 -Tunneling No No -Undermining/Tunneling No No -Circular Undermining No No -Wound/Ulcer Outcome Not Healed Not Healed -Ulcer Cleansing Rinsed/ Rinsed/ Irrigated with Irrigated with Saline Saline -Bioengineered Tissue No No -Bleeding Controlled with Pressure -Treatment Response Procedure Tolerated Well -Debridement - Subq, 1st 20sq cm Yes Yes #1 INF. CHEST -Time 13:50 15:46 -Correct Patient Yes Yes -Correct Side, Site, Position Yes Yes -Correct Procedure Yes Yes -Procedure Performed Yes Yes -Type of Procedure Debridement Debridement -Clinical Debridement Subcutaneous Subcutaneous -Tissue Removed Subcutaneous Subcutaneous -Post Debridement (cm) - Length 1.0 0.4 -Post Debridement (cm) - Width 1.0 0.1 -Post Debridement (cm) - Depth 0.3 0.1 -Total Square (Post) (cm) 1.00 0.04 -Area of Debridement (cm) - Length 1.0 0.4 -Area of Debridement (cm) - Width 1.0 0.1 -Total Square (Area) (cm) 1.00 0.04 -Tunneling No No -Undermining/Tunneling No No -Circular Undermining No No -Wound/Ulcer Outcome Not Healed Not Healed -Ulcer Cleansing Rinsed/ Rinsed/ Irrigated with Irrigated with Saline Saline -Bioengineered Tissue No No -Bleeding Controlled with Pressure Pressure -Treatment Response Procedure Procedure Tolerated Well Tolerated Well -Debridement - Subq, 1st 20sq cm No No Pain Scale: 0-10 Numeric Is Patient Pain Free? Yes Yes WC - Nurse 3 - General Ulcer D/C NN Start: 12/21/23 13:09 Freq: Status: Active Protocol: Activity Type Activity Date Activity User E-sign Co-sign Detail Recorded Client Recorded Date Recorded By Document 12/21/23 14:04 KW [id number] 12/21/23 14:05 KW Document 12/28/23 15:58 RB [id number] 12/28/23 15:59 RB 12/21/23 12/28/23 14:04 15:58 Wound Care Center Nurse 3 #2 SUP CHEST -Ulcer Cleansing Rinsed/ Irrigated with Saline -Primary Dressing Applied Aquacel Extra Aquacel Extra -Primary Dressing Covered/Secured with Dry Gauze, Dry Gauze, Secured with Secured with Tape Tape -Aquacel Extra 1 1 #1 INF. CHEST -Ulcer Cleansing Rinsed/ Irrigated with Saline -Other Dressing aquacel extra AQUACEL EXTRA -Primary Dressing Covered/Secured with Dry Gauze, Dry Gauze, Secured with Secured with Tape Tape Right -Tubular Bandage Single Layer -Size of Tubigrip Used Size D -Size D ($) 1 Left -Tubular Bandage Single Layer -Size of Tubigrip Used Size D -Size D ($) 1 Treatment Response Procedure Tolerated Well Pain Scale: 0-10 Numeric Is Patient Pain Free? Yes Yes WC - Visit Discharge Discharge Condition Stable Ambulatory Status Ambulatory Transportation Private Auto Medication Reconcilliation completed & No provided to patient/care provider Clinical Summary of Care Provided Yes Charges/Coding Procedures Integumentary [id number]: [id number] Kristel subq tissue 20 sq cm/< Assessment/Plan Assessment/Plan (1) Sternal wound dehiscence: CODE(S): T81.328A - Disruption or dehiscence of closure of other specified internal operation (surgical) wound, initial encounter QUALIFIERS: Encounter type: subsequent encounter Qualified Code(s): T81.328D - Disruption or dehiscence of closure of other specified internal operation (surgical) wound, subsequent encounter (2) H/O mechanical aortic valve replacement: CODE(S): Z95.2 - Presence of prosthetic heart valve (3) Right leg swelling: CODE(S): M79.89 - Other specified soft tissue disorders (4) Left leg swelling: CODE(S): M79.89 - Other specified soft tissue disorders (5) History of cerebrovascular disease: CODE(S): Z86.79 - Personal history of other diseases of the circulatory system (6) senior care current use of anticoagulant: CODE(S): Z79.01 - terminal superintendent (current) use of anticoagulants (7) Epilepsy: CODE(S): G40.909 - Epilepsy, unspecified, not intractable, without status epilepticus QUALIFIERS: Epilepsy type: other generalized Intractability: not intractable Status epilepticus: without status epilepticus Qualified Code(s): G40.409 - Other generalized epilepsy and epileptic syndromes, not intractable, without status epilepticus (8) Essential hypertension: CODE(S): I10 - Essential (primary) hypertension (9) Anticardiolipin antibody positive: CODE(S): R76.0 - Raised antibody titer (10) Low back pain: CODE(S): M54.50 - Low back pain, unspecified (11) Chronic fatigue: CODE(S): R53.82 - Chronic fatigue, unspecified (12) Nonrheumatic aortic (valve) stenosis with insufficiency: CODE(S): I35.2 - Nonrheumatic aortic (valve) stenosis with insufficiency (13) CKD (chronic kidney disease), stage II: CODE(S): N18.2 - Chronic kidney disease, stage 2 (mild) (14) History of endocarditis: CODE(S): Z86.79 - Personal history of other diseases of the circulatory system (15) Adult celiac disease: CODE(S): K90.0 - Celiac disease (16) Lupus anticoagulant positive: CODE(S): R76.0 - Raised antibody titer (17) SLE (systemic lupus erythematosus): CODE(S): M32.9 - Systemic lupus erythematosus, unspecified QUALIFIERS: Systemic lupus erythematosus type: unspecified Systemic lupus erythematosus organ involvement: unspecified Qualified Code(s): M32.9 - Systemic lupus erythematosus, unspecified (18) History of tonsillectomy: CODE(S): Z90.89 - Acquired absence of other organs (19) S/P hysterectomy: CODE(S): Z90.710 - Acquired absence of both cervix and uterus (20) Bicuspid aortic valve with ascending aorta greater than 4.0 cm in diameter: CODE(S): Q23.1 - Congenital insufficiency of aortic valve (21) Nonrheumatic aortic (valve) stenosis: CODE(S): I35.0 - Nonrheumatic aortic (valve) stenosis (22) Nonrheumatic aortic (valve) insufficiency: CODE(S): I35.1 - Nonrheumatic aortic (valve) insufficiency PLAN: Plan This is a 48-year-old female who underwent a [place] Andr[place] aortic valve replacement at the [facility] in early November 2023. She has experienced a surgical wound dehiscence, for which she presented for definitive evaluation and management. The patient has been advised to optimize her nutritional intake. We are to continue the use of Aquacel Extra topically to the dehiscent portions of the patient's surgical wound. This is to be applied topically on a daily basis. The patient has been instructed in the appropriate means of application. With respect to the swelling in that her lower extremities, the patient has been advised to elevate her lower extremities to heart level, as much as possible. She is to continue sleeping on a flat mattress at night. She is to elevate her lower extremities is much as possible even during daytime hours. Activity has been encouraged. Prolonged idle sitting has been discouraged. Tubigrip's have been provided to the patient, of 20 to 30 mmHg compression, which are to be worn on a daily basis. 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 She has also begun cardiac rehabilitation in the center at [facility]. The patient is to return in 1 week for reevaluation. The patient's questions have been answered. Total time: 48 minutes
--- NOTE | 2023-12-30 11:58 | WC ---
PHOTO 12/28/23 CHEST
[2024-01-11 14:20] VITALS: BP 114/69; PULSE 98; RESP 18; TEMP 36; BMI 31.6
--- NOTE | 2024-01-12 11:42 | HP.PCM_ITS ---
History of Present Illness Date of Service: 01/11/24 Chief Complaint: Sternal incisional wound dehiscence History of Wound: This is a 49-year-old female who presented with a sternal incisional wound dehiscence. She underwent a [place] aortic valve replacement in early November 2023 at the [facility]. She subsequently developed a surgical wound dehiscence, associated with a post-operative wound infection. Wound cultures were positive for MRSA. She was treated with a course of doxycycline. Treatment related to her sternal wound dehiscence included the use of alginate topically. She was referred for definitive evaluation and management. The patient denies the use of tobacco products. She is on warfarin, the result of a recent placement of a mechanical aortic valve. She is ambulatory. She has noted swelling in her lower extremities recently, for which she has been prescribed Lasix by other physicians. She denies a history of thrombophlebitis. She is a Ab2. She remains under the care of of her cardiac surgeon. [facility] Medical History Postoperative atrial fibrillation Left leg swelling Right leg swelling Iron deficiency anemia Sternal wound dehiscence Adult celiac disease SLE (systemic lupus erythematosus) Lupus anticoagulant positive History of endocarditis Nonrheumatic aortic (valve) stenosis with insufficiency Chronic fatigue CKD (chronic kidney disease), stage II PAF (paroxysmal atrial fibrillation) CAD (coronary artery disease) Obesity Former tobacco use History of CVA (cerebrovascular accident) Seizures Carpal tunnel syndrome Arthritis Nonrheumatic aortic (valve) stenosis Essential hypertension Nonrheumatic aortic (valve) insufficiency Seizure disorder Female stress incontinence Home Medications ?Medication ?Instructions ?Recorded ?Last Taken ?Type aspirin 81 mg chewable tablet 81 mg PO DAILY@0800 [facility] 07/20/13 09/27/23 History ergocalciferol (vitamin D2) 1,250 50,000 unit PO DAILY supplement 02/14/19 09/27/23 History mcg (50,000 unit) capsule ferrous fumarate 324 mg (106 mg See Rx Instructions .Route 03/30/22 Unknown Rx iron) tablet (Ferrocite) .COMPLEX supplement #60 tabs rosuvastatin 10 mg tablet 10 mg PO DAILY cholesterol 06/03/22 Unknown History levetiracetam 1,000 mg tablet 1,000 mg PO BID seizures #180 tabs 06/23/23 Unknown Rx acetaminophen 325 mg tablet 650 mg PO Q6H PRN PRN mild pain 12/12/23 Unknown History warfarin 4 mg tablet 4 mg PO DAILY blood thinner 12/12/23 Unknown History metoprolol succinate 50 mg 50 mg PO QHS #90 tabs 12/23/23 Unknown Rx tablet,extended release 24 hr ceftriaxone 2 gram solution for 2 g continuous IV infusion QDAY 01/12/24 Unknown History injection enoxaparin 80 mg/0.8 mL 80 mg subcut Q12H 01/12/24 Unknown History subcutaneous syringe (Lovenox) Allergy/AdvReac Type Severity Reaction Status Date / Time ketorolac tromethamine (From Allergy Severe Shortness Verified 01/12/24 11:33 Toradol) of breath Family History Grandmother CVA (cerebral vascular accident) Uterine cancer Uncle Heart disease Myocardial infarction CAD (coronary artery disease) Hypertension Mother Diabetes Father No problems noted. Surgical History S/P hysterectomy H/O mechanical aortic valve replacement (11/05/23) History of tonsillectomy Social History household members: spouse Smoking Status: Former smoker how long ago did patient quit smoking: Smoked ~ 1 ppd x 5 years, quit 05/28/2008 second hand exposure: No alcohol intake: current alcohol intake frequency: holidays/special occasions only substance use type: does not use caffeine: Yes Type: coffee Number of servings: 2 seatbelt use: never Vital Signs Vital Signs Vital Signs: 01/11/24 14:20 Temperature 96.8 F L Temperature Source Temporal Pulse Rate 98 Respiratory Rate 18 Blood Pressure 114/69 Blood Pressure Mean 84 Blood Pressure Source Monitor Blood Pressure Position Semi-Fowlers Blood Pressure Location Left Arm Oxygen Delivery Method Room Air Weight Weight: 173 lb Body Mass Index (BMI) 31.6 Physical Exam Const alert, oriented x3, no apparent distress, no limitations and well nourished Constitutional Narrative: The patient's BMI is 31.6. General Appearance: cooperative, comfortable, well kempt and well developed Orientation / Consciousness: awake, oriented to person, oriented to place and oriented to time Exam Limitations: no limitations HEENT normocephalic, head/scalp atraumatic and hearing grossly normal bilaterally Head and Scalp: normal to inspection, normocephalic and atraumatic Face and Sinus: normal facial exam Nose: external nose normal External Ear: external ears normal Eyes EOMs intact bilaterally General Eye: normal appearance of both eyes Neck full ROM Resp normal respiratory effort, normal air movement, no retractions and no use of accessory muscles Effort and Inspection: able to speak in complete sentences Extremity no calf tenderness Extremity Narrative: Mild swelling is noted bilaterally in the patient's lower extremities, though it appears to be improving. General Extremity: Negative for clubbing or cyanosis Skin Wound Narrative: A vertical sternal incision is noted. The incision now appears to be completely healed and epithelialized. Neuro oriented x3, CN's II-XII intact bilaterally, moves all extremities, no focal motor deficits and no sensory deficits noted Sensorium / Orientation: awake, alert, oriented to person, oriented to place and oriented to time Psych Appearance: grossly normal and appropriate Attitude: calm Activity / Motor Behavior: appropriate eye contact Speech: normal speech Mood & Affect: euthymic mood Thought Process: normal thought process Thought Content: normal thought content Attention / Concentration: attention grossly intact Debridement Note Debridement Note No debridement was completed: No debridement was completed today (The patient's wound is completely healed and epithelialized.) Charges/Coding Visit Charges Office Visits / Consults: [id number] OV L3 Est 20min Assessment/Plan Assessment/Plan (1) Sternal wound dehiscence: CODE(S): T81.328A - Disruption or dehiscence of closure of other specified internal operation (surgical) wound, initial encounter QUALIFIERS: Encounter type: subsequent encounter Qualified Code(s): T81.328D - Disruption or dehiscence of closure of other specified internal operation (surgical) wound, subsequent encounter (2) H/O mechanical aortic valve replacement: CODE(S): Z95.2 - Presence of prosthetic heart valve (3) Right leg swelling: CODE(S): M79.89 - Other specified soft tissue disorders (4) Left leg swelling: CODE(S): M79.89 - Other specified soft tissue disorders (5) History of cerebrovascular disease: CODE(S): Z86.79 - Personal history of other diseases of the circulatory system (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: CODE(S): Z79.01 - correction (current) use of anticoagulants (7) Epilepsy: CODE(S): G40.909 - Epilepsy, unspecified, not intractable, without status epilepticus QUALIFIERS: Epilepsy type: other generalized Intractability: not intractable Status epilepticus: without status epilepticus Qualified Code(s): G40.409 - Other generalized epilepsy and epileptic syndromes, not intractable, without status epilepticus (8) Essential hypertension: CODE(S): I10 - Essential (primary) hypertension (9) Anticardiolipin antibody positive: CODE(S): R76.0 - Raised antibody titer (10) Low back pain: CODE(S): M54.50 - Low back pain, unspecified (11) Chronic fatigue: CODE(S): R53.82 - Chronic fatigue, unspecified (12) Nonrheumatic aortic (valve) stenosis with insufficiency: CODE(S): I35.2 - Nonrheumatic aortic (valve) stenosis with insufficiency (13) CKD (chronic kidney disease), stage II: CODE(S): N18.2 - Chronic kidney disease, stage 2 (mild) (14) History of endocarditis: CODE(S): Z86.79 - Personal history of other diseases of the circulatory system (15) Adult celiac disease: CODE(S): K90.0 - Celiac disease (16) Lupus anticoagulant positive: CODE(S): R76.0 - Raised antibody titer (17) SLE (systemic lupus erythematosus): CODE(S): M32.9 - Systemic lupus erythematosus, unspecified QUALIFIERS: Systemic lupus erythematosus type: unspecified Systemic lupus erythematosus organ involvement: unspecified Qualified Code(s): M32.9 - Systemic lupus erythematosus, unspecified (18) History of tonsillectomy: CODE(S): Z90.89 - Acquired absence of other organs (19) S/P hysterectomy: CODE(S): Z90.710 - Acquired absence of both cervix and uterus (20) Bicuspid aortic valve with ascending aorta greater than 4.0 cm in diameter: CODE(S): Q23.1 - Congenital insufficiency of aortic valve (21) Nonrheumatic aortic (valve) stenosis: CODE(S): I35.0 - Nonrheumatic aortic (valve) stenosis (22) Nonrheumatic aortic (valve) insufficiency: CODE(S): I35.1 - Nonrheumatic aortic (valve) insufficiency PLAN: Plan This is a 49-year-old female who underwent a [place] aortic valve replacement at the [facility] in early November 2023. She has experienced a surgical wound dehiscence, for which she presented for definitive evaluation and management. As of today's visit, the patient's sternal wound dehiscence is completely healed and epithelialized. Therefore, the patient will be discharged, and will follow-up henceforth on an as-needed basis. It is noted that the patient remains in cardiac rehabilitation at [facility]. It is also noted that the patient has recently been hospitalized at the [facility] for approximately 1 week in treatment for sepsis, which was found to be due to an E. coli urinary tract infection. She is now fully recovered. Total time: 25 minutes
--- NOTE | 2024-01-14 10:19 | WC ---
PHOTO 01/11/24 POST OP CHEST INCISION
== END 2024-01-11 15:37 | disposition home or self-care (01) ==
LOC: WC 14:15
PROVIDERS: PCP Family Medicine; Referring Provider Family Medicine; Visit Provider Surgery
DX: T81.328D Disruption or dehiscence of closure of other specified internal operation (surgical) wound, subsequent encounter (principal); M32.9 Systemic lupus erythematosus, unspecified; G40.309 Generalized idiopathic epilepsy and epileptic syndromes, not intractable, without status epilepticus; Z90.710 Acquired absence of both cervix and uterus; Z79.01 Long term (current) use of anticoagulants; M54.50 Low back pain, unspecified; Q23.1 Congenital insufficiency of aortic valve; M79.89 Other specified soft tissue disorders; Q23.81 Bicuspid aortic valve; Z87.891 Personal history of nicotine dependence; N18.2 Chronic kidney disease, stage 2 (mild); Z79.82 Long term (current) use of aspirin; K90.0 Celiac disease; I12.9 Hypertensive chronic kidney disease with stage 1 through stage 4 chronic kidney disease, or unspecified chronic kidney disease; I25.10 Atherosclerotic heart disease of native coronary artery without angina pectoris; B95.62 Methicillin resistant Staphylococcus aureus infection as the cause of diseases classified elsewhere; Z95.2 Presence of prosthetic heart valve; Z86.79 Personal history of other diseases of the circulatory system; R53.82 Chronic fatigue, unspecified; I35.2 Nonrheumatic aortic (valve) stenosis with insufficiency; R76.0 Raised antibody titer; Z86.73 Personal history of transient ischemic attack (TIA), and cerebral infarction without residual deficits
CPT/HCPCS: 11042; 99212; 99213; G0463

== ENCOUNTER 2024-01-17 14:56 | Outpatient (RCR) | payer OTHER, SELFPAY ==
[2023-11-29 08:53] VITALS: BMI 34.4
[2023-12-29 09:12] VITALS: BMI 31.7
[2023-12-29 16:04] LABS: Mucous, Urine 0 SEEN /hpf (<or=2+); Squamous Epithelial Cells - UA 0 SEEN /hpf (5-10)
[2023-12-29 16:20] LABS: INR Fingerstick 1.7; Prothrombin Time Fingerstick 17.8 SEC (11.7-14.9)
[2023-12-29 17:36] LABS: Color, Urine Yellow (Yellow); Glucose, Dipstick Normal (Normal); Ketone-Dipstick Negative (Negative); Leukocyte Esterase-Dipstick 100 /ul (Negative); Nitrite-Dipstick Negative (Negative); Occult Blood-Urine 25 /ul (Negative); Protein-Dipstick Negative (Negative); Urine Bilirubin Dipstick Negative (Negative); Urine Clarity Clear (Clear); Urine Urobilinogen Normal (Normal)
[2023-12-29 17:42] LABS: Bacteria 2+ /hpf (None Seen)
[2023-12-29 17:43] LABS: Red Blood Cells-Urine 0-5 SEEN /hpf (0-5); White Blood Cells 5-10 SEEN /hpf (0-5)
[2023-12-29 17:49] LABS: AST(SGOT) 15 U/L (15-37); Absolute Lymphocyte Count 0.75 X10^3/uL (0.83-4.51); Absolute Neutrophil Count 5.8 X10^3/uL (2.0-7.7); Alanine Aminotransfer ALT/SGPT 27 U/L (13-56); BUN 23 mg/dL (7-18); Basophil# 0.05 X10^3/uL; Basophil% 0.7 % (0-1); Creatinine, Serum 1.04 mg/dL (0.55-1.02); EST Glomerular Filtration Rate 60 mL/min (>60); Eosinophil# 0.06 X10^3/uL; Eosinophils% 0.8 % (0-5); Est Glom Filt Rate - Afr Amer 72 mL/min (>60); Hematocrit 35.1 % (37-47); Hemoglobin 10.8 g/dL (12.0-15.0); Lymphocyte # 0.75 X10^3/ul (0.83-4.51); Lymphocyte % 10.3 % (19-41); Mean Corp Hgb Conc 30.8 g/dL (32-36); Mean Corpuscular Hgb 27.1 pg (27.0-32.0); Mean Platelet Vol. 10.4 fl (6.2-12.0); Monocyte# 0.52 X10^3/uL; Monocyte% 7.2 % (0-10); NRBC Flagged by Analyzer 0 % (0-5); Neutrophil # 5.83 X10^3/uL (2.7-7.7); Neutrophil % 80.3 % (47-70); Platelet Count 200 K/mm3 (150-450); RBC Distribution Width CV 15.7 % (11.6-14.6); RBC Distribution Width SD 49.2 fl (35.1-43.9); Red Blood Count 3.99 M/mm3 (4.2-5.4); White Blood Count 7.3 K/mm3 (4.4-11.0)
[2023-12-29 17:50] LABS: Erythrocyte Sedimentation Rate 11 mm/hr (0-30)
[2023-12-31 07:09] LABS: Complement C3 149 mg/dL (82-167)
[2023-12-31 10:09] LABS: Anti-dsDNA Ab 2 IU/mL (0-9)
[2024-01-11 16:44] LABS: International Normalized Ratio 1.4; Prothrombin Time (Protime)PT. 16.8 SECONDS (11.7-14.9)
[2024-01-13 13:35] LABS: Absolute Lymphocyte Count 0.67 X10^3/uL (0.83-4.51); Basophil# 0.03 X10^3/uL; Basophil% 0.7 % (0-1); Eosinophil# 0.02 X10^3/uL; Eosinophils% 0.5 % (0-5); Hematocrit 34.3 % (37-47); Hemoglobin 10.7 g/dL (12.0-15.0); Lymphocyte # 0.67 X10^3/ul (0.83-4.51); Mean Corp Hgb Conc 31.2 g/dL (32-36); Mean Corpuscular Hgb 26.9 pg (27.0-32.0); Mean Corpuscular Volume 86.2 fL (81-99); Mean Platelet Vol. 9.7 fl (6.2-12.0); Monocyte# 0.36 X10^3/uL; Monocyte% 8.6 % (0-10); NRBC Flagged by Analyzer 0 % (0-5); Neutrophil # 2.95 X10^3/uL (2.7-7.7); Neutrophil % 70.2 % (47-70); Platelet Count 256 K/mm3 (150-450); RBC Distribution Width CV 15.7 % (11.6-14.6); RBC Distribution Width SD 49.4 fl (35.1-43.9); Red Blood Count 3.98 M/mm3 (4.2-5.4); White Blood Count 4.2 K/mm3 (4.4-11.0)
[2024-01-13 13:51] LABS: International Normalized Ratio 1.3; Prothrombin Time (Protime)PT. 16.1 SECONDS (11.7-14.9)
[2024-01-17 18:12] LABS: International Normalized Ratio 1.7
== END 2024-01-17 18:00 | disposition home or self-care (01) ==
LOC: MTLAB 14:56
PROVIDERS: Internal Medicine Rheumatology; Nurse Practitioner Gerontology; PCP Family Medicine; Referring Provider Internal Medicine Cardiovascular Disease; Visit Provider Internal Medicine Cardiovascular Disease
DX: Z95.2 Presence of prosthetic heart valve (principal); Z79.01 Long term (current) use of anticoagulants; M32.9 Systemic lupus erythematosus, unspecified; Z79.899 Other long term (current) drug therapy; Q23.1 Congenital insufficiency of aortic valve
CPT/HCPCS: 36415; 36416; 81001; 82565; 84450; 84460; 84520; 85025; 85610; 85652; 86140; 86160; 86225

== ENCOUNTER 2024-01-18 13:29 | Outpatient (CLI) | payer OTHER, SELFPAY ==
[2023-12-29 09:12] VITALS: BMI 31.7
[2024-01-18 14:02] VITALS: BP 93/57; PULSE 73; RESP 16; TEMP 35.9; O2SAT 98
== END 2024-01-18 23:59 | disposition home or self-care (01) ==
LOC: MEDOUTP 13:29
PROVIDERS: PCP Family Medicine; Referring Provider Internal Medicine Infectious Disease; Visit Provider Internal Medicine Infectious Disease
DX: B99.9 Unspecified infectious disease (principal)

== ENCOUNTER → 2024-02-04 | Outpatient (CLI) | payer OTHER, SELFPAY ==
[2023-12-29 09:12] VITALS: BMI 31.7
[2024-01-27 08:30] VITALS: BMI 32.8
[2024-02-04 14:46] LABS: Bacteria 0 SEEN /hpf (None Seen); Mucous, Urine 0 SEEN /hpf (<or=2+); Red Blood Cells-Urine 0 SEEN /hpf (0-5); Squamous Epithelial Cells - UA 0 SEEN /hpf (5-10)
[2024-02-04 17:56] LABS: Absolute Lymphocyte Count 1.33 X10^3/uL (0.83-4.51); Absolute Neutrophil Count 7.8 X10^3/uL (2.0-7.7); Basophil# 0.03 X10^3/uL; Basophil% 0.3 % (0-1); Eosinophil# 0.05 X10^3/uL; Eosinophils% 0.5 % (0-5); Hemoglobin 11.9 g/dL (12.0-15.0); Lymphocyte # 1.33 X10^3/ul (0.83-4.51); Lymphocyte % 13.2 % (19-41); Mean Corp Hgb Conc 31.3 g/dL (32-36); Mean Corpuscular Hgb 27.2 pg (27.0-32.0); Mean Corpuscular Volume 86.8 fL (81-99); Mean Platelet Vol. 10.1 fl (6.2-12.0); Monocyte# 0.84 X10^3/uL; Monocyte% 8.3 % (0-10); NRBC Flagged by Analyzer 0 % (0-5); Neutrophil # 7.76 X10^3/uL (2.7-7.7); Neutrophil % 77.2 % (47-70); Platelet Count 220 K/mm3 (150-450); RBC Distribution Width CV 15.1 % (11.6-14.6); RBC Distribution Width SD 48.5 fl (35.1-43.9); Red Blood Count 4.38 M/mm3 (4.2-5.4); White Blood Count 10.1 K/mm3 (4.4-11.0)
[2024-02-04 18:02] LABS: International Normalized Ratio 1.7; Prothrombin Time (Protime)PT. 20.3 SECONDS (11.7-14.9)
[2024-02-04 18:06] LABS: Erythrocyte Sedimentation Rate 31 mm/hr (0-30)
[2024-02-04 18:10] LABS: Color, Urine Straw (Yellow); Glucose, Dipstick Normal (Normal); Ketone-Dipstick Negative (Negative); Leukocyte Esterase-Dipstick Negative /ul (Negative); Nitrite-Dipstick Negative (Negative); Occult Blood-Urine Negative /ul (Negative); Protein-Dipstick Negative (Negative); Urine Bilirubin Dipstick Negative (Negative); Urine Clarity Clear (Clear); Urine Urobilinogen Normal (Normal)
[2024-02-04 18:14] LABS: AST(SGOT) 21 U/L (15-37); Alanine Aminotransfer ALT/SGPT 23 U/L (13-56); BUN 23 mg/dL (7-18); Creatinine, Serum 0.89 mg/dL (0.55-1.02); EST Glomerular Filtration Rate 71 mL/min (>60); Est Glom Filt Rate - Afr Amer 86 mL/min (>60)
[2024-02-04 18:20] LABS: White Blood Cells 0-5 SEEN /hpf (0-5)
[2024-02-06 09:07] LABS: Complement C3 166 mg/dL (82-167)
[2024-02-07 12:08] LABS: Anti-dsDNA Ab 1 IU/mL (0-9)
== END | disposition home or self-care (01) ==
LOC: MFPLAB 14:44
PROVIDERS: Internal Medicine Cardiovascular Disease; PCP Family Medicine; Visit Provider Internal Medicine Rheumatology
DX: M32.9 Systemic lupus erythematosus, unspecified (principal); Z95.2 Presence of prosthetic heart valve; Z79.01 Long term (current) use of anticoagulants; Z79.899 Other long term (current) drug therapy
CPT/HCPCS: 36415; 81001; 81002; 82565; 84450; 84460; 84520; 85025; 85610; 85652; 86140; 86160; 86225

== ENCOUNTER → 2024-02-09 | Outpatient (CLI) | payer OTHER, SELFPAY ==
[2024-01-27 08:30] VITALS: BMI 32.8
--- NOTE | 2024-02-09 10:32 | BI_ITS ---
MAMMOGRAPHY - BILATERAL SCREENING REASON FOR EXAM: Female, 49 years old. Routine annual screening examination. PERTINENT HISTORY: Non-contributory. TECHNIQUE: Digital bilateral breast mary lou (3D mammographic acquisition) in the CC and MLO projections. 2-D mediolateral oblique (MLO) and craniocaudad (CC) views of both breasts were obtained. CAD: Full Field Digital Mammography with Computer Added Detection was performed. COMPARISON: Comparison is made with prior examination November 04, 2022 and September 15, 2021. FINDINGS: Breast Composition: There are scattered areas of fibroglandular density. There are no dominant masses or suspicious calcifications. No other significant abnormalities are identified. There has been no significant change since the prior study. BI/SCRN MAMM (CAD)W/MARY LOU BILAT IMPRESSION: Stable bilateral screening mammogram. Yearly follow-up mammogram recommended. (A) ASSESSMENT CATEGORY: BIRADS Category 1: Negative. A letter regarding these results will be sent to the patient by the facility within 30 days. Approximately 10% of breast cancers are not detected by mammography. A normal mammogram should not delay biopsy of a clinically suspicious abnormality. [id number] Electronically Signed: Chris Sandoval MD at 12:05 EST ,
== END | disposition home or self-care (01) ==
LOC: OPBI 10:32
PROVIDERS: PCP Family Medicine; Referring Provider Family Medicine; Visit Provider Family Medicine
DX: Z12.31 Encounter for screening mammogram for malignant neoplasm of breast (principal)
CPT/HCPCS: 77063; 77067

== ENCOUNTER → 2024-02-10 | Outpatient (CLI) | payer OTHER, SELFPAY ==
[2024-01-27 08:30] VITALS: BMI 32.8
[2024-02-10 17:52] LABS: Absolute Lymphocyte Count 1.16 X10^3/uL (0.83-4.51); Absolute Neutrophil Count 2.6 X10^3/uL (2.0-7.7); Basophil# 0.03 X10^3/uL; Basophil% 0.7 % (0-1); Eosinophil# 0.06 X10^3/uL; Eosinophils% 1.4 % (0-5); Hematocrit 39.7 % (37-47); Hemoglobin 12.4 g/dL (12.0-15.0); Lymphocyte # 1.16 X10^3/ul (0.83-4.51); Lymphocyte % 26.7 % (19-41); Mean Corp Hgb Conc 31.2 g/dL (32-36); Mean Corpuscular Hgb 26.9 pg (27.0-32.0); Mean Corpuscular Volume 86.1 fL (81-99); Mean Platelet Vol. 9.2 fl (6.2-12.0); Monocyte# 0.44 X10^3/uL; Monocyte% 10.1 % (0-10); NRBC Flagged by Analyzer 0 % (0-5); Neutrophil # 2.62 X10^3/uL (2.7-7.7); Neutrophil % 60.4 % (47-70); Platelet Count 270 K/mm3 (150-450); RBC Distribution Width CV 14.5 % (11.6-14.6); RBC Distribution Width SD 45.9 fl (35.1-43.9); Red Blood Count 4.61 M/mm3 (4.2-5.4); White Blood Count 4.3 K/mm3 (4.4-11.0)
[2024-02-10 18:15] LABS: Vitamin B12 530 pg/mL (211-911)
[2024-02-10 18:40] LABS: ALB/GLOB Ratio 1.1 RATIO (0.9-2.4); AST(SGOT) 22 U/L (15-37); Alanine Aminotransfer ALT/SGPT 24 U/L (13-56); Albumin, Serum 3.8 g/dL (3.2-5.0); Alkaline Phosphatase 136 U/L (45-117); Anion Gap 7 (5-15); BUN 19 mg/dL (7-18); Chloride 104 mmol/L (98-107); Cholesterol 142 mg/dL (200); Creatinine, Serum 0.79 mg/dL (0.55-1.02); EST Glomerular Filtration Rate 82 mL/min (>60); Est Glom Filt Rate - Afr Amer 99 mL/min (>60); Ferritin 1091 ng/mL (8-252); Globulin 3.4 g/dL (2.2-4.2); Glucose 68 mg/dL (74-106); High Density Lipoprotein 42 mg/dL; Iron 48 ug/dL (50-170); Iron Binding Capacity,Total 277 ug/dL (250-450); Potassium 4.2 mmol/L (3.5-5.1); Protein, Total 7.2 g/dL (6.4-8.2); Sodium Level 136 mmol/L (136-145); Triglycerides 196 mg/dL; Very Low Density Lipoprotein 39 mg/dL (5-40)
== END | disposition home or self-care (01) ==
PROVIDERS: PCP Family Medicine; Referring Provider Internal Medicine Rheumatology; Visit Provider Internal Medicine Rheumatology
DX: D50.9 Iron deficiency anemia, unspecified (principal); Z86.73 Personal history of transient ischemic attack (TIA), and cerebral infarction without residual deficits; Z79.899 Other long term (current) drug therapy
CPT/HCPCS: 36415; 80053; 80061; 82607; 82728; 82746; 83540; 83550; 85025; 86140

== ENCOUNTER 2024-02-16 10:22 | Outpatient (RCR) | payer OTHER, SELFPAY ==
[2023-12-29 09:12] VITALS: BMI 31.7
[2024-01-21 09:58] LABS: International Normalized Ratio 2.8; Prothrombin Time (Protime)PT. 29.3 SECONDS (11.7-14.9)
[2024-01-28 16:27] LABS: International Normalized Ratio 2.2; Prothrombin Time (Protime)PT. 24.4 SECONDS (11.7-14.9)
[2024-02-09 12:09] LABS: International Normalized Ratio 2.1; Prothrombin Time (Protime)PT. 23.4 SECONDS (11.7-14.9)
[2024-02-14 17:21] LABS: International Normalized Ratio 1.8; Prothrombin Time (Protime)PT. 20.6 SECONDS (11.7-14.9)
[2024-02-16 10:59] LABS: International Normalized Ratio 2.5; Prothrombin Time (Protime)PT. 26.5 SECONDS (11.7-14.9)
== END 2024-02-19 18:00 | disposition home or self-care (01) ==
LOC: LAB 10:22
PROVIDERS: PCP Family Medicine; Referring Provider Internal Medicine Cardiovascular Disease; Visit Provider Internal Medicine Cardiovascular Disease
DX: Z95.2 Presence of prosthetic heart valve (principal); Z79.01 Long term (current) use of anticoagulants
CPT/HCPCS: 36415; 85610

== ENCOUNTER 2024-02-16 15:15 | Outpatient (RCR) | payer OTHER, SELFPAY ==
[2023-12-29 09:12] VITALS: BMI 31.7
[2024-01-21 00:47] VITALS: BP 118/72
--- NOTE | 2024-01-27 08:15 | CR.ITP_ITS ---
Exercise - Initial Assessment Physician Prescribed Exercise Modalities: Treadmill, Schwinn Airdyne AD-7 and SciFit Stepper Nutrition - Initial Assessment Weight Mgt (Other Care) Height: 5 ft 1 in Weight:: 173 lb 8 oz BMI: 32.8 Core - Initial Assessment Hypertension Resting Blood Pressure:: 110/74 [place] [employer] Hypertension Guidelines Psychosocial - Initial Assess Target Goals Target Goals Referral to Behavioral Health PS - Interventions: Yes: Attend Stress Management Classes Patient Health Questionnaire PHQ-9 Screening 60-Day Re-eval Assessment: 1. Little interest or pleasure in doing things: Several days 2. Feeling down, depressed, or hopeless: Not at all 3. Trouble falling or staying asleep, or sleeping too much: Several days 4. Feeling tired or having little energy: Not at all 5. Poor appetite or overeating: Not at all 6. Feeling bad about yourself -- or that you are a failure or have let yourself or your family down: Several days 7. Trouble concentrating on things, such as reading the newspaper or watching television: Not at all 8. Moving or speaking so slowly that other people could have noticed. Or the opposite - being so fidgety or restless that you have been moving around a lot more than usual: Not at all 9. Thoughts that you would be better off , or of hurting yourself in some way: Not at all How difficult have these problems made it for you to do your work, take care of things at home, or get along with other people?: Not difficult at all Total Score: 3 Self-Efficacy 6-Item Scale 60-Day Re-eval Assessment: We would like to know how confident you are in doing certain activities. Please select your confidence level for: Fatigue Select Number: 6 Physical Discomfort or Pain Select Number: 6 Emotional Distress Select Number: 6 Other Symptoms or Health Problems Select Number: 6 Different Tasks and Activities Select Number: 6 Medication Select Number: 6 Total Score:: 6 Nutrition Survey Nutrition Survey Instructions Scoring Instructions Exercise - 30-day Assessment Physician Prescribed Exercise Modalities: Treadmill, Schwinn Airdyne AD-7 and SciFit Stepper Exercise - 60-day Assessment Visit Date of Eval: 01/27/24 Session #:: 7 Comments:: Pt has not been able to attend CR consistently due to illness. Physician Prescribed Exercise Modalities: Treadmill, Schwinn Airdyne AD-7 and SciFit Stepper Frequency: 3x/week for 12 weeks [36 sessions] Intensity: 60-80% of age predicted maximum heart rate reserve Duration: 30 - 45 minutes Current METSs:: 3 Target Heart Rate:: 102-128 Current RPE:: 12 Maximum Excercise HR:: 95 Resting Blood Pressure: 108/74 Maximum Exercise Blood Pressure: 106/76 EKG Type: NSR to ST with Twave inversion. Rare pac/pvc Outcomes & Goals Goals:: Verbalizes understanding of THR, RPE & goal METS by session 6, Documents in home exercise log/reports 30 min aerobic 5 day/wk by DC, Demonstrates accurate pulse taking by DC and Other additional outcome/goals: see below Intervention & Plan Exercise Program Goals: Instruct on personal THR & RPE, Instruct on MET level & personal MET goal, Show patient to take own pulse /validate performance until accurate, Instruct on home exercise and Other additional plan/int 30-day Reassessments 30 day Reassessments:: Progressing Reassessment Notes & Comments:: Refreshed pt on RPE scale. Pt has not been able to attend CR for almost a month due to illness. Physical Activity Home Exercise Physical Activity - Home Exercise: Safe Exercise, Warm-up, Self-monitoring, Cool-Down, Home Exercise > 30 min Daily and Sitting Time <3 hours/daily Outcomes & Goals Outcomes/Goals: Demonstrates correct Warm-up/exercise Cool-Down (S3) if = 2.5 METs, Verbalizes symptoms of exercise intolerance by Session 3 (S3), Demonstrate safe equipment use (S3) & follows exercise prescrition (6) and Other: See below Intervention & Plan Plan/Intervention: Instruct warm-up & cool-down if exercising at > 2 METs, Instruct on symptoms of exercise intolerance & actions to take, Instruct & monitor on saf, Assess intial functional capacity & safety risk and Other See below 30-day Reassessments 30 day Reassessments:: Progressing Reassessment Notes & Comments:: Safe exercise explained to pt. Pt demonstrates understanding. Exercise - 90-day Assessment Physician Prescribed Exercise Modalities: Treadmill, Schwinn Airdyne AD-7 and SciFit Stepper Exercise - Final/Discharge Physician Prescribed Exercise Modalities: Treadmill, Schwinn Airdyne AD-7 and SciFit Stepper Nutrition - 30-Day Assessment Weight Mgt (Other Care) Height: 5 ft 1 in Weight:: 173 lb 8 oz BMI: 32.8 Nutrition - 60-Day Assessment Program Goals Nutrition Program Goals Patient has diagnosis of Hyperlipidemia (ICD E78)?: Yes Visit Date of Eval: 01/27/24 Session #:: 7 Cholesterol/Lipids (Other Core Measures) Determine presence & major risk factors that modify LDL goal: Hypertension or hypertensive medication, Low HDL cholesterol <40 mg/dL*, Family history of premature CHD in Male < 55 years: female <65 yearsFa and Age men > 45 years; women >/= 55 years Outcomes/Goals: Pt IDs own risk factors & lifestyle modifications by Session 10, Verbalizes symptoms of angina & response by session 3., Pt independently manages and Other Additional Outcomes/Goals: Intervention/Plan: Advocate for lipid panel cholesterol medication if applicable, Instruct on personal lipid levels & lipid goals/NCEP guidelines, Instruct on cholesterol and Other additional plan/int 30-day Reassessments:: Progressing Reassessment Notes & Comments:: Pt encouraged to have her routine bloodwork done.. Pt understands the importance. Diabetes (Other Core Measures) Diabetes Type: Not Applicable Weight Mgt (Other Care) Height: 5 ft 1 in Weight:: 173 lb 8 oz BMI: 32.8 Diagnosis Overweight/Obesity BMI> 30% ICD-10 E66: Yes Diagnosis High BMI/Morbid Obesity BMI> 35% ICD-10 Z68: No Outcomes/Goals: Pt sets, maintains & shows weight loss goal & trend during rehab and Other additional outcomes/goals Intervention/Plan: Instruct on ideal BMI & set weight loss goal w/patient, Assist pt to ID & incorporate diet changes for weight loss by S9, Refer to Structured Weight Loss program as appropriate, Encourage goal of using 250- 300dcal per session for weight loss and Other additional plan/interventions 30 day Reassessments:: Progressing Reassessment Notes & Comments:: Pt to attend nutrition class. Healthy Eating Habits Will attend diet classes:: Yes Outcomes/Goals:: Consume diet rich in vegs,fruits,whole grain/high fiber,fish,lean meat, Limit sat/trans fats,cholesterol & added salts & sugars and Other additional outcome/goals: Intervention/Plan:: Assess current eating habits and Other Additional plan/interventions 30-day Reassessments:: Progressing Reassessment Notes & Comments:: pot to attend nutrition class Education Gave educational materials for:: Signs & symptoms of hypoglycemia, Signs & symptoms of hyperglycemia, Relate diabetes to coronary artery disease and Healthy eating Core - Final Assessment Hypertension Resting Blood Pressure:: 110/74 [place] [employer] Hypertension Guidelines Core - 60-Day Assessment Visit Date of Eval: 01/27/24 Session #:: 7 Medication Compliance Preventative Medication(s):: Aspirin and Statin/lipid H/O mental health issues: depression, anxiety, or addiction?: No Doesn?t believe in the benefits of treatment?: No Believes medications are unnecessary or harmful?: No Has a concern about medication side effects?: No Expresses concern over the cost of medications?: No Outcomes/Goals: Verbalizes medications,desired effect & common side effects @ DC, Pt self-reports following medication regimen, Keeps card in wallet w/medications listed by DC and Other additional outcome/goals: Interventions/plans: Instruct on medication effects & side effects, Review medication list w/patient every two weeks, Instruct importance of taking meds as ordered & assist problem solving and Other additional 30-day Reassessments:: Met Reassessment Notes & Comments:: pt is taking meds as prescribed by her physician Tobacco Use Tobacco Use: Non-smoker Hypertension Resting Blood Pressure:: 108/74 Resting Blood Pressure:: 110/74 [place] [employer] Hypertension Guidelines Peak Exercise Blood Pressure:: 106/76 Outcomes/Goals: Able to verbalize/achieve optimal blood pressure <130/80, Incorporates diet changes & exercise for blood pressure control by DC and Other additional outcomes/goals Interventions/plan: Instruct on optimal blood pressure, hypertension & medications, Instruct on effects of sodium, alcohol, stress, exercise &hypertension and Other additional plan/interventions 30 day Reassessments:: Met Reassessment Notes & Comments:: pt,s bp's are within AHA's normal limits Tobacco Cessation Referral Smoking Cessation Referral:: No Individual Education/Counseling:: No Education Schedule Given:: Yes Psychosocial - 30-Day Assess Target Goals Target Goals Referral to Behavioral Health PS - Interventions: Yes: Attend Stress Management Classes Outcomes/Goals: See list Psychosocial Outcomes/Goals:: ID's personal stressors & 2 strategies to manage stress by discharge and Other Additional outcome/goals: Psychosocial - 60-Day Assess VIsit Date of Eval: 01/27/24 Session #:: 7 History of previous Mental disease:: No Target Goals Target Goals Psychosocial Test Tool Used:: Ferrans Power QOL Cardiac and PHQ-9 Questionnaire phq-9 Severity Referral to Behavioral Health PS - Interventions: Yes: Attend Stress Management Classes Outcomes/Goals: See list Psychosocial Outcomes/Goals:: ID's personal stressors & 2 strategies to manage stress by discharge and Other Additional outcome/goals: Intervention/Plan: See List Interventions/Plan:: Assess stressors,coping strategies & signs of derpression on admission, Instruct/assist pt to develop coping & personal stress Mgt strategies, Refer to Behavioral Health if appropriate, Refer to Physician if appropriate, Instruct patient to recognize signs & symptoms of depression, Instruct patient to recog and Other additional plan/intervention 30-day Reassessments: 30 day Reassessments:: Met Reassessment Notes & Comments:: pt denies any psychosocial issues at this time. Psychosocial - 90-Day Assess Target Goals Target Goals Referral to Behavioral Health PS - Interventions: Yes: Attend Stress Management Classes Psychosocial - Final Assessmen Target Goals Target Goals Referral to Behavioral Health PS - Interventions: Yes: Attend Stress Management Classes Nutrition - 90-Day Assessment Weight Mgt (Other Care) Height: 5 ft 1 in Weight:: 173 lb 8 oz BMI: 32.8 Nutrition - Final Assessment Weight Mgt (Other Care) Height: 5 ft 1 in Weight:: 173 lb 8 oz BMI: 32.8
[2024-01-27 08:30] VITALS: BP 108/74; BP 110/74; BMI 32.8
== END 2024-02-19 23:59 ==
LOC: CR 15:15
PROVIDERS: PCP Family Medicine; Referring Provider Internal Medicine Cardiovascular Disease; Visit Provider Internal Medicine Cardiovascular Disease
DX: Z95.2 Presence of prosthetic heart valve (principal)
CPT/HCPCS: 93798

== ENCOUNTER 2024-03-20 15:15 | Outpatient (RCR) | payer OTHER, SELFPAY ==
[2024-02-19 22:24] VITALS: BMI 31.7
[2024-02-20 00:51] VITALS: BP 108/74; BP 110/74; BP 118/72
--- NOTE | 2024-02-23 10:57 | PCM.CR.ITP ---
Exercise - Initial Assessment Physician Prescribed Exercise Modalities: Treadmill, SciFit Stepper and SciFit Lateral [place] Nutrition - Initial Assessment Weight Mgt (Other Care) Height: 5 ft 1 in Weight:: 170 lb BMI: 32.1 Psychosocial - Initial Assess Target Goals Target Goals Referral to Behavioral Health PS - Interventions: Yes: Attend Stress Management Classes Patient Health Questionnaire PHQ-9 Screening 90-Day Re-eval Assessment: 1. Little interest or pleasure in doing things: Several days 2. Feeling down, depressed, or hopeless: Not at all 3. Trouble falling or staying asleep, or sleeping too much: Several days 4. Feeling tired or having little energy: Not at all 5. Poor appetite or overeating: Not at all 6. Feeling bad about yourself -- or that you are a failure or have let yourself or your family down: Several days 7. Trouble concentrating on things, such as reading the newspaper or watching television: Not at all 8. Moving or speaking so slowly that other people could have noticed. Or the opposite - being so fidgety or restless that you have been moving around a lot more than usual: Not at all 9. Thoughts that you would be better off , or of hurting yourself in some way: Not at all How difficult have these problems made it for you to do your work, take care of things at home, or get along with other people?: Not difficult at all Total Score: 3 Self-Efficacy 6-Item Scale 90-Day Re-eval Assessment: We would like to know how confident you are in doing certain activities. Please select your confidence level for: Fatigue Select Number: 6 Physical Discomfort or Pain Select Number: 6 Emotional Distress Select Number: 6 Other Symptoms or Health Problems Select Number: 6 Different Tasks and Activities Select Number: 6 Medication Select Number: 6 Total Score:: 6 Nutrition Survey Nutrition Survey Instructions Scoring Instructions Exercise - 30-day Assessment Physician Prescribed Exercise Modalities: Treadmill, SciFit Stepper and SciFit Lateral [place] Exercise - 60-day Assessment Physician Prescribed Exercise Modalities: Treadmill, SciFit Stepper and SciFit Lateral [place] Exercise - 90-day Assessment Visit Date of Eval: 02/23/24 Session #:: 16 Physician Prescribed Exercise Modalities: Treadmill, SciFit Stepper and SciFit Lateral [place] Frequency: 3x/week for 12 weeks [36 sessions] Intensity: 60-80% of age predicted maximum heart rate reserve Duration: 30 - 45 minutes Current METSs:: 4 Target Heart Rate:: 102-128 Current RPE:: 12-13 Maximum Excercise HR:: 101 Resting Blood Pressure: 110/70 Maximum Exercise Blood Pressure: 122/72 EKG Type: NSR to ST with T wave inversion. Rare PVC's Outcomes & Goals Goals:: Verbalizes understanding of THR, RPE & goal METS by session 6, Documents in home exercise log/reports 30 min aerobic 5 day/wk by DC, Demonstrates accurate pulse taking by DC and Other additional outcome/goals: see below Intervention & Plan Exercise Program Goals: Instruct on personal THR & RPE, Instruct on MET level & personal MET goal, Show patient to take own pulse /validate performance until accurate, Instruct on home exercise and Other additional plan/int 30-day Reassessments 30 day Reassessments:: Progressing Reassessment Notes & Comments:: Safe home exercise discussed in exercise class. Pt demonstrates understanding Physical Activity Home Exercise Physical Activity - Home Exercise: Safe Exercise, Warm-up, Self-monitoring, Cool-Down, Home Exercise > 30 min Daily and Sitting Time <3 hours/daily Outcomes & Goals Outcomes/Goals: Demonstrates correct Warm-up/exercise Cool-Down (S3) if = 2.5 METs, Verbalizes symptoms of exercise intolerance by Session 3 (S3), Demonstrate safe equipment use (S3) & follows exercise prescrition (6) and Other: See below Intervention & Plan Plan/Intervention: Instruct warm-up & cool-down if exercising at > 2 METs, Instruct on symptoms of exercise intolerance & actions to take, Instruct & monitor on saf, Assess intial functional capacity & safety risk and Other See below 30-day Reassessments 30 day Reassessments:: Progressing Reassessment Notes & Comments:: Pt encouraged to walk on days not in CR. Pt encouraged to keep an exercise log. Exercise - Final/Discharge Physician Prescribed Exercise Modalities: Treadmill, SciFit Stepper and SciFit Lateral [place] Nutrition - 30-Day Assessment Weight Mgt (Other Care) Height: 5 ft 1 in Weight:: 170 lb BMI: 32.1 Nutrition - 60-Day Assessment Weight Mgt (Other Care) Height: 5 ft 1 in Weight:: 170 lb BMI: 32.1 Core - 30-Day Assessment Hypertension [place] [employer] Hypertension Guidelines Reassessment Notes & Comments:: pt's bp's are within AHA;s normal limits Core - Final Assessment Hypertension [place] [employer] Hypertension Guidelines Reassessment Notes & Comments:: pt's bp's are within AHA;s normal limits Core - 90 Day Assessment Visit Date of Eval: 02/23/24 Session #:: 16 Medication Compliance Preventative Medication(s):: Aspirin and Statin/lipid H/O mental health issues: depression, anxiety, or addiction?: No Doesn?t believe in the benefits of treatment?: No Believes medications are unnecessary or harmful?: No Has a concern about medication side effects?: No Expresses concern over the cost of medications?: No Outcomes/Goals: Verbalizes medications,desired effect & common side effects @ DC, Pt self-reports following medication regimen, Keeps card in wallet w/medications listed by DC and Other additional outcome/goals: Interventions/plans: Instruct on medication effects & side effects, Review medication list w/patient every two weeks, Instruct importance of taking meds as ordered & assist problem solving and Other additional 30-day Reassessments:: Met Reassessment Notes & Comments:: Pt is taking meds as prescribed by her physician. Tobacco Use Tobacco Use: Non-smoker 30-day Reassessments:: Met Reassessment Notes & Comments:: pt is a nonsmoker Hypertension Hypertension Diagnosis:: Hypertension ICD-10 I10 Resting Blood Pressure:: 110/70 [place] [employer] Hypertension Guidelines Peak Exercise Blood Pressure:: 122/72 Outcomes/Goals: Able to verbalize/achieve optimal blood pressure <130/80, Incorporates diet changes & exercise for blood pressure control by DC and Other additional outcomes/goals Interventions/plan: Instruct on optimal blood pressure, hypertension & medications, Instruct on effects of sodium, alcohol, stress, exercise &hypertension and Other additional plan/interventions 30 day Reassessments:: Met Reassessment Notes & Comments:: pt's bp's are within AHA;s normal limits Tobacco Cessation Referral Smoking Cessation Referral:: No Individual Education/Counseling:: No Education Schedule Given:: Yes Psychosocial - 30-Day Assess Target Goals Target Goals Referral to Behavioral Health PS - Interventions: Yes: Attend Stress Management Classes Psychosocial - 60-Day Assess Target Goals Target Goals Referral to Behavioral Health PS - Interventions: Yes: Attend Stress Management Classes Psychosocial - 90-Day Assess VIsit Date of Eval: 02/23/24 Session #:: 16 History of previous Mental disease:: No Target Goals Target Goals Psychosocial Test Tool Used:: Ferrans [id number] QOL Cardiac and PHQ-9 Questionnaire phq-9 Severity Referral to Behavioral Health PS - Interventions: Yes: Attend Stress Management Classes Outcomes/Goals: See list Psychosocial Outcomes/Goals:: ID's personal stressors & 2 strategies to manage stress by discharge and Other Additional outcome/goals: Intervention/Plan: See List Interventions/Plan:: Assess stressors,coping strategies & signs of derpression on admission, Instruct/assist pt to develop coping & personal stress Mgt strategies, Refer to Behavioral Health if appropriate, Refer to Physician if appropriate, Instruct patient to recognize signs & symptoms of depression, Instruct patient to recog and Other additional plan/intervention 30-day Reassessments: 30 day Reassessments:: Met Reassessment Notes & Comments:: pt denies any psychosocial issues at this time Psychosocial - Final Assessmen Target Goals Target Goals Referral to Behavioral Health PS - Interventions: Yes: Attend Stress Management Classes Nutrition - 90-Day Assessment Program Goals Nutrition Program Goals Patient has diagnosis of Hyperlipidemia (ICD E78)?: Yes Visit Date of Eval: 02/23/24 Session #:: 16 Cholesterol/Lipids (Other Core Measures) Determine presence & major risk factors that modify LDL goal: Hypertension or hypertensive medication, Low HDL cholesterol <40 mg/dL*, Family history of premature CHD in Male < 55 years: female <65 yearsFa and Age men > 45 years; women >/= 55 years Outcomes/Goals: Pt IDs own risk factors & lifestyle modifications by Session 10, Verbalizes symptoms of angina & response by session 3., Pt independently manages and Other Additional Outcomes/Goals: Intervention/Plan: Advocate for lipid panel cholesterol medication if applicable, Instruct on personal lipid levels & lipid goals/NCEP guidelines, Instruct on cholesterol and Other additional plan/int 30-day Reassessments:: Met Reassessment Notes & Comments:: Pt has made lifestyle modifications that she has learned in education in CR. Pt is minimizing her risk factors. Diabetes (Other Core Measures) Diabetes Type: Not Applicable Weight Mgt (Other Care) Height: 5 ft 1 in Weight:: 170 lb BMI: 32.1 Diagnosis Overweight/Obesity BMI> 30% ICD-10 E66: Yes Diagnosis High BMI/Morbid Obesity BMI> 35% ICD-10 Z68: No Outcomes/Goals: Pt sets, maintains & shows weight loss goal & trend during rehab and Other additional outcomes/goals Intervention/Plan: Instruct on ideal BMI & set weight loss goal w/patient, Assist pt to ID & incorporate diet changes for weight loss by S9, Refer to Structured Weight Loss program as appropriate, Encourage goal of using 250-300dcal per session for weight loss and Other additional plan/interventions 30 day Reassessments:: Progressing Reassessment Notes & Comments:: Pt has lost 3.5 lbs in the past month. Healthy Eating Habits Will attend diet classes:: Yes Outcomes/Goals:: Consume diet rich in vegs,fruits,whole grain/high fiber,fish,lean meat, Limit sat/trans fats,cholesterol & added salts & sugars and Other additional outcome/goals: Intervention/Plan:: Assess current eating habits and Other Additional plan/interventions 30-day Reassessments:: Met Reassessment Notes & Comments:: Pt attended nutrition class last month. Education Gave educational materials for:: Signs & symptoms of hypoglycemia, Signs & symptoms of hyperglycemia, Relate diabetes to coronary artery disease and Healthy eating Nutrition - Final Assessment Weight Mgt (Other Care) Height: 5 ft 1 in Weight:: 170 lb BMI: 32.1
[2024-02-23 11:15] VITALS: BP 110/70; BMI 32.1
== END 2024-03-21 23:59 ==
LOC: CR 15:15
PROVIDERS: PCP Family Medicine; Referring Provider Internal Medicine Cardiovascular Disease; Visit Provider Internal Medicine Cardiovascular Disease
DX: Z95.2 Presence of prosthetic heart valve (principal)
CPT/HCPCS: 36415; 80053; 80061; 82607; 82728; 82746; 83540; 83550; 85025; 85610; 93798

== ENCOUNTER 2024-03-21 14:41 | Outpatient (RCR) | payer OTHER, SELFPAY ==
[2024-02-19 22:24] VITALS: BMI 31.7
[2024-02-23 11:15] VITALS: BMI 32.1
[2024-03-02 15:33] LABS: Absolute Lymphocyte Count 1.17 X10^3/uL (0.83-4.51); Absolute Neutrophil Count 4.3 X10^3/uL (2.0-7.7); Basophil# 0.03 X10^3/uL; Basophil% 0.5 % (0-1); Eosinophil# 0.14 X10^3/uL; Eosinophils% 2.3 % (0-5); Hematocrit 40.1 % (37-47); Hemoglobin 13.2 g/dL (12.0-15.0); Lymphocyte # 1.17 X10^3/ul (0.83-4.51); Lymphocyte % 19.4 % (19-41); Mean Corp Hgb Conc 32.9 g/dL (32-36); Mean Corpuscular Hgb 27.4 pg (27.0-32.0); Mean Corpuscular Volume 83.4 fL (81-99); Mean Platelet Vol. 9.5 fl (6.2-12.0); Monocyte# 0.32 X10^3/uL; Monocyte% 5.3 % (0-10); NRBC Flagged by Analyzer 0 % (0-5); Neutrophil # 4.34 X10^3/uL (2.7-7.7); Platelet Count 204 K/mm3 (150-450); RBC Distribution Width CV 14.6 % (11.6-14.6); RBC Distribution Width SD 44.1 fl (35.1-43.9); Red Blood Count 4.81 M/mm3 (4.2-5.4)
[2024-03-02 16:09] LABS: Vitamin B12 530 pg/mL (211-911)
[2024-03-02 16:10] LABS: International Normalized Ratio 1.8; Prothrombin Time (Protime)PT. 21.1 SECONDS (11.7-14.9)
[2024-03-02 16:29] LABS: ALB/GLOB Ratio 1.3 RATIO (0.9-2.4); AST(SGOT) 31 U/L (15-37); Alanine Aminotransfer ALT/SGPT 39 U/L (13-56); Alkaline Phosphatase 97 U/L (45-117); Anion Gap 5 (5-15); BUN 19 mg/dL (7-18); BUN/Creat Ratio 20.5 RATIO (10-20); Calcium,Total 9.4 mg/dL (8.5-10.1); Chloride 105 mmol/L (98-107); Cholesterol 138 mg/dL (200); Creatinine, Serum 0.93 mg/dL (0.55-1.02); EST Glomerular Filtration Rate 68 mL/min (>60); Est Glom Filt Rate - Afr Amer 82 mL/min (>60); Estimated Creatinine Clearance 68.01 ml/min; Ferritin 823 ng/mL (8-252); Globulin 3.1 g/dL (2.2-4.2); Glucose 112 mg/dL (74-106); High Density Lipoprotein 51 mg/dL; Iron 42 ug/dL (50-170); Iron Binding Capacity,Total 265 ug/dL (250-450); Potassium 4.3 mmol/L (3.5-5.1); Protein, Total 7.1 g/dL (6.4-8.2); Sodium Level 138 mmol/L (136-145); Triglycerides 145 mg/dL; Very Low Density Lipoprotein 29 mg/dL (5-40)
[2024-03-06 15:31] LABS: International Normalized Ratio 2.1
[2024-03-13 15:57] LABS: International Normalized Ratio 2.2; Prothrombin Time (Protime)PT. 23.9 SECONDS (11.7-14.9)
[2024-03-21 15:02] LABS: INR Fingerstick 1.7; Prothrombin Time Fingerstick 19.1 SEC (11.7-14.9)
== END 2024-03-21 18:00 | disposition home or self-care (01) ==
LOC: LAB 14:41
PROVIDERS: PCP Family Medicine; Referring Provider Internal Medicine Cardiovascular Disease; Visit Provider Internal Medicine Cardiovascular Disease
DX: Z95.2 Presence of prosthetic heart valve (principal); Z79.01 Long term (current) use of anticoagulants
CPT/HCPCS: 36415; 36416; 80053; 80061; 82607; 82728; 82746; 83540; 83550; 85025; 85610

== ENCOUNTER → 2024-03-29 | Outpatient (CLI) | payer OTHER, SELFPAY ==
[2024-01-27 08:30] VITALS: BMI 32.8
[2024-02-23 11:15] VITALS: BMI 32.1
[2024-03-24 11:45] VITALS: BMI 31.4
--- NOTE | 2024-03-29 13:58 | CDU_ITS ---
Reason For Study: Carotid stenosis Rt. Velocities/BP Lt. Velocities/BP Prox CCA 95.7/21.1 cm/sec. Prox CCA 73/19.2 cm/sec. Mid CCA 91/26.7 cm/sec. Mid CCA 81.5/24.8 cm/sec. Dist CCA 79.6/20.1 cm/sec. Dist CCA 74/24.8 cm/sec. Prox ICA 72.1/17.3 cm/sec. Prox ICA 59.8/20.1 cm/sec. Mid ICA 67.4/25.8 cm/sec. Mid ICA 71.1/22 cm/sec. Dist ICA 64.5/23 cm/sec. Dist ICA 57.9/21.1 cm/sec. Rt. ICA/CCA = 0.79. Lt. ICA/CCA = 0.87. Prox ECA 92.9/23.9 cm/sec. Prox ECA 43.7/11.6 cm/sec. Rt. Vert. 48.5/7.8 cm/sec. Lt. Vert. 48.5/16.3 cm/sec. Right Extracranial There is intimal thickening but no significant atherosclerotic plaque noted in the right common carotid artery. There is intimal thickening but no significant atherosclerotic plaque noted in the right internal carotid artery. There is intimal thickening but no significant atherosclerotic plaque noted in the right external carotid artery. Antegrade flow is noted in the right vertebral artery. Left Extracranial There is intimal thickening but no significant atherosclerotic plaque noted in the left common carotid artery. There is heterogeneous, irregular atherosclerotic plaque noted in the left internal carotid artery. There is intimal thickening but no significant atherosclerotic plaque noted in the left external carotid artery. Antegrade flow is noted in the left vertebral artery. Procedure Carotid Duplex [id number]. This is a Carotid Duplex examination using B-mode, color flow and specral Doppler. Exam performed in department. VL/Carotid Duplex Ultrasound Interpretation Summary No significant atherosclerotic plaque or stenosis noted in the right internal c arotid artery. Mild (<50%) stenosis left extracranial internal carotid. Flow within the vertebral a rteries is antegrade bilaterally. Ordering Physician: Esvin Hamlin Referring Physician: Esvin Hamlin Performed By: Rosalina Burks RVT
== END | disposition home or self-care (01) ==
LOC: CVS 13:51
PROVIDERS: PCP Family Medicine; Referring Provider Family Medicine; Visit Provider Family Medicine
DX: I65.29 Occlusion and stenosis of unspecified carotid artery (principal)
CPT/HCPCS: 93880

== ENCOUNTER 2024-04-17 15:15 | Outpatient (RCR) | payer OTHER, SELFPAY ==
[2024-03-21 22:01] VITALS: BMI 31.7
[2024-03-22 00:47] VITALS: BP 108/74; BP 110/70; BP 110/74; BP 118/72
--- NOTE | 2024-03-24 11:29 | PCM.CR.ITP ---
Exercise - Initial Assessment Physician Prescribed Exercise Modalities: SciFit Stepper, SciFit Pro-II Ergometer and SciFit Lateral Cost Estimating Engineer Nutrition - Initial Assessment Program Goals Nutrition Program Goals Patient has diagnosis of Hyperlipidemia (ICD E78)?: Yes Weight Mgt (Other Care) Height: 5 ft 2 in Weight:: 172 lb BMI: 31.4 Core - Initial Assessment Hypertension Resting Blood Pressure:: 88/66 [place] [employer] Hypertension Guidelines Psychosocial - Initial Assess Target Goals Target Goals Referral to Behavioral Health PS - Interventions: Yes: Attend Stress Management Classes Patient Health Questionnaire PHQ-9 Screening Discharge Assessment: 1. Little interest or pleasure in doing things: Several days 2. Feeling down, depressed, or hopeless: Not at all 3. Trouble falling or staying asleep, or sleeping too much: Several days 4. Feeling tired or having little energy: Not at all 5. Poor appetite or overeating: Not at all 6. Feeling bad about yourself -- or that you are a failure or have let yourself or your family down: Several days 7. Trouble concentrating on things, such as reading the newspaper or watching television: Not at all 8. Moving or speaking so slowly that other people could have noticed. Or the opposite - being so fidgety or restless that you have been moving around a lot more than usual: Not at all 9. Thoughts that you would be better off , or of hurting yourself in some way: Not at all How difficult have these problems made it for you to do your work, take care of things at home, or get along with other people?: Not difficult at all Total Score: 3 Self-Efficacy 6-Item Scale Discharge Assessment: We would like to know how confident you are in doing certain activities. Please select your confidence level for: Fatigue Select Number: 6 Physical Discomfort or Pain Select Number: 6 Emotional Distress Select Number: 6 Other Symptoms or Health Problems Select Number: 6 Different Tasks and Activities Select Number: 6 Medication Select Number: 6 Total Score:: 6 Nutrition Survey Nutrition Survey Instructions Scoring Instructions Exercise - 30-day Assessment Physician Prescribed Exercise Modalities: SciFit Stepper, SciFit Pro-II Ergometer and SciFit Lateral Cost Estimating Engineer Exercise - 60-day Assessment Physician Prescribed Exercise Modalities: SciFit Stepper, SciFit Pro-II Ergometer and SciFit Lateral [place] Exercise - 90-day Assessment Physician Prescribed Exercise Modalities: SciFit Stepper, SciFit Pro-II Ergometer and SciFit Lateral Cost Estimating Engineer Exercise - Final/Discharge Visit Date of Eval: 03/24/24 Session #:: 25 Physician Prescribed Exercise Modalities: SciFit Stepper, SciFit Pro-II Ergometer and SciFit Lateral [place] Frequency: 3x/week for 12 weeks [36 sessions] Intensity: 60-80% of age predicted maximum heart rate reserve Duration: 30 - 45 minutes Current METSs:: 4 Target Heart Rate:: 102-128 Current RPE:: 12-13 Maximum Heart Rate:: 96 Resting Blood Pressure: 88/66 Maximum Exercise Blood Pressure: 128/70 EKG Type: NSR with T wave inversion, rare pvcs/pac. Current Physical Activity or Exercising minutes: 30-45 Outcomes & Goals Goals:: Verbalizes understanding of THR, RPE & goal METS by session 6, Documents in home exercise log/reports 30 min aerobic 5 day/wk by DC, Demonstrates accurate pulse taking by DC and Other additional outcome/goals: see below Intervention & Plan Exercise Program Goals: Instruct on personal THR & RPE, Instruct on MET level & personal MET goal, Show patient to take own pulse /validate performance until accurate, Instruct on home exercise and Other additional plan/int Physical Activity Home Exercise Physical Activity - Home Exercise: Safe Exercise, Warm-up, Self-monitoring, Cool-Down, Home Exercise > 30 min Daily and Sitting Time <3 hours/daily Outcomes & Goals Outcomes/Goals: Demonstrates correct Warm-up/exercise Cool-Down (S3) if = 2.5 METs, Verbalizes symptoms of exercise intolerance by Session 3 (S3), Demonstrate safe equipment use (S3) & follows exercise prescrition (6) and Other: See below Intervention & Plan Plan/Intervention: Instruct warm-up & cool-down if exercising at > 2 METs, Instruct on symptoms of exercise intolerance & actions to take, Instruct & monitor on saf, Assess intial functional capacity & safety risk and Other See below 30-day Reassessments 30 day Reassessments:: Progressing Reassessment Notes & Comments:: Pt will be graduating soon. Pt understands warm up, cool down, and how to safely exercise. Pt will be given her workloads as well her options in the community for exercise. Nutrition - 30-Day Assessment Weight Mgt (Other Care) Height: 5 ft 2 in Weight:: 172 lb BMI: 31.4 Nutrition - 60-Day Assessment Weight Mgt (Other Care) Height: 5 ft 2 in Weight:: 172 lb BMI: 31.4 Core - 30-Day Assessment Hypertension [place] [employer] Hypertension Guidelines Reassessment Notes & Comments:: Pt's BP's are within AHA normal limits. Pt is taking her meds as prescribed by her physician Core - Final Assessment Visit Date of Eval: 03/24/24 Session #:: 25 Medication Compliance Preventative Medication(s):: Aspirin and Statin/lipid H/O mental health issues: depression, anxiety, or addiction?: No Doesn?t believe in the benefits of treatment?: No Believes medications are unnecessary or harmful?: No Has a concern about medication side effects?: No Expresses concern over the cost of medications?: No Outcomes/Goals: Verbalizes medications,desired effect & common side effects @ DC, Pt self-reports following medication regimen, Keeps card in wallet w/medications listed by DC and Other additional outcome/goals: Interventions/plans: Instruct on medication effects & side effects, Review medication list w/patient every two weeks, Instruct importance of taking meds as ordered & assist problem solving and Other additional Tobacco Use Tobacco Use: Non-smoker How long ago did you quit using tobacco products?: Greater than or equal to 6 months ago Years Smokin (stopped 20 years ago) Hypertension Hypertension Diagnosis:: Hypertension ICD-10 I10 Resting Blood Pressure:: 88/66 [place] [employer] Hypertension Guidelines Peak Exercise Blood Pressure:: 128/70 Outcomes/Goals: Able to verbalize/achieve optimal blood pressure <130/80, Incorporates diet changes & exercise for blood pressure control by DC and Other additional outcomes/goals Interventions/plan: Instruct on optimal blood pressure, hypertension & medications, Instruct on effects of sodium, alcohol, stress, exercise &hypertension and Other additional plan/interventions 30 day Reassessments:: Met Reassessment Notes & Comments:: Pt's BP's are within AHA normal limits. Pt is taking her meds as prescribed by her physician Tobacco Cessation Referral Smoking Cessation Referral:: No Individual Education/Counseling:: No Education Schedule Given:: Yes Core - 90 Day Assessment Hypertension [place] [employer] Hypertension Guidelines Reassessment Notes & Comments:: Pt's BP's are within AHA normal limits. Pt is taking her meds as prescribed by her physician Core - 60-Day Assessment Tobacco Use Years Smokin (stopped 20 years ago) Hypertension Resting Blood Pressure:: 88/66 [place] [employer] Hypertension Guidelines Psychosocial - 30-Day Assess Target Goals Target Goals Referral to Behavioral Health PS - Interventions: Yes: Attend Stress Management Classes Psychosocial - 60-Day Assess Target Goals Target Goals Referral to Behavioral Health PS - Interventions: Yes: Attend Stress Management Classes Psychosocial - 90-Day Assess Target Goals Target Goals Referral to Behavioral Health PS - Interventions: Yes: Attend Stress Management Classes Psychosocial - Final Assessmen VIsit Date of Eval: 03/24/24 Session #:: 25 History of previous Mental disease:: No Target Goals Target Goals Psychosocial Test Tool Used:: [employer] QOL Cardiac and PHQ-9 Questionnaire phq-9 Severity Referral to Behavioral Health PS - Interventions: Yes: Attend Stress Management Classes Outcomes/Goals: See list Psychosocial Outcomes/Goals:: ID's personal stressors & 2 strategies to manage stress by discharge and Other Additional outcome/goals: Intervention/Plan: See List Interventions/Plan:: Assess stressors,coping strategies & signs of derpression on admission, Instruct/assist pt to develop coping & personal stress Mgt strategies, Refer to Behavioral Health if appropriate, Refer to Physician if appropriate, Instruct patient to recognize signs & symptoms of depression, Instruct patient to recog and Other additional plan/intervention 30-day Reassessments: 30 day Reassessments:: Met Reassessment Notes & Comments:: Pt denies any psychosocial issues at this time. Nutrition - 90-Day Assessment Weight Mgt (Other Care) Height: 5 ft 2 in Weight:: 172 lb BMI: 31.4 Nutrition - Final Assessment Program Goals Patient has diagnosis of Hyperlipidemia (ICD E78)?: Yes Visit Date of Assessment:: 03/24/24 Session #:: 25 Cholesterol/Lipids (Other Core Measures) Determine presence & major risk factors that modify LDL goal: Hypertension or hypertensive medication, Low HDL cholesterol <40 mg/dL*, Family history of premature CHD in Male < 55 years: female <65 yearsFa and Age men > 45 years; women >/= 55 years Outcomes/Goals: Pt IDs own risk factors & lifestyle modifications by Session 10, Verbalizes symptoms of angina & response by session 3., Pt independently manages and Other Additional Outcomes/Goals: Intervention/Plan: Advocate for lipid panel cholesterol medication if applicable, Instruct on personal lipid levels & lipid goals/NCEP guidelines, Instruct on cholesterol and Other additional plan/int Diabetes (Other Core Measures) Diabetes Type: Not Applicable Weight Mgt (Other Care) Height: 5 ft 2 in Weight:: 172 lb BMI: 31.4 Diagnosis Overweight/Obesity BMI> 30% ICD-10 E66: Yes Diagnosis High BMI/Morbid Obesity BMI> 35% ICD-10 Z68: No Outcomes/Goals: Pt sets, maintains & shows weight loss goal & trend during rehab and Other additional outcomes/goals Intervention/Plan: Instruct on ideal BMI & set weight loss goal w/patient, Assist pt to ID & incorporate diet changes for weight loss by S9, Refer to Structured Weight Loss program as appropriate, Encourage goal of using 250-300dcal per session for weight loss and Other additional plan/interventions Healthy Eating Habits Will attend diet classes:: Yes Outcomes/Goals:: Consume diet rich in vegs,fruits,whole grain/high fiber,fish,lean meat, Limit sat/trans fats,cholesterol & added salts & sugars and Other additional outcome/goals: Intervention/Plan:: Assess current eating habits and Other Additional plan/interventions 30-day Reassessments:: Met Reassessment Notes & Comments:: Pt has attended nutrition class and understands the importance of a heart healthy diet. Education Gave educational materials for:: Signs & symptoms of hypoglycemia, Signs & symptoms of hyperglycemia, Relate diabetes to coronary artery disease and Healthy eating
[2024-03-24 11:45] VITALS: BP 88/66; BMI 31.4
== END 2024-04-21 23:59 ==
LOC: CR 15:15
PROVIDERS: PCP Family Medicine; Referring Provider Internal Medicine Cardiovascular Disease; Visit Provider Internal Medicine Cardiovascular Disease
DX: Z95.2 Presence of prosthetic heart valve (principal)

== ENCOUNTER 2024-04-21 12:43 | Outpatient (RCR) | payer OTHER, SELFPAY ==
[2024-03-21 22:01] VITALS: BMI 31.7
[2024-03-24 11:45] VITALS: BMI 31.4
[2024-03-27 16:03] LABS: INR Fingerstick 2.2; Prothrombin Time Fingerstick 23.6 SEC (11.7-14.9)
[2024-04-03 17:25] LABS: Absolute Lymphocyte Count 1.09 X10^3/uL (0.83-4.51); Absolute Neutrophil Count 2.7 X10^3/uL (2.0-7.7); Basophil# 0.04 X10^3/uL; Basophil% 0.9 % (0-1); Eosinophil# 0.12 X10^3/uL; Eosinophils% 2.8 % (0-5); Hematocrit 39.8 % (37-47); Hemoglobin 13.5 g/dL (12.0-15.0); Lymphocyte # 1.09 X10^3/ul (0.83-4.51); Mean Corp Hgb Conc 33.9 g/dL (32-36); Mean Corpuscular Hgb 28.2 pg (27.0-32.0); Mean Corpuscular Volume 83.1 fL (81-99); Monocyte# 0.38 X10^3/uL; Monocyte% 8.7 % (0-10); NRBC Flagged by Analyzer 0 % (0-5); Neutrophil # 2.71 X10^3/uL (2.7-7.7); Neutrophil % 62.1 % (47-70); Platelet Count 165 K/mm3 (150-450); RBC Distribution Width CV 13.8 % (11.6-14.6); RBC Distribution Width SD 41.7 fl (35.1-43.9); Red Blood Count 4.79 M/mm3 (4.2-5.4); White Blood Count 4.4 K/mm3 (4.4-11.0)
[2024-04-03 17:35] LABS: International Normalized Ratio 2.2; Prothrombin Time (Protime)PT. 25.1 SECONDS (11.7-14.9)
[2024-04-03 17:39] LABS: AST(SGOT) 30 U/L (15-37); Alanine Aminotransfer ALT/SGPT 41 U/L (13-56); BUN 22 mg/dL (7-18); Creatinine, Serum 0.78 mg/dL (0.55-1.02); EST Glomerular Filtration Rate 83 mL/min (>60); Est Glom Filt Rate - Afr Amer 101 mL/min (>60)
[2024-04-03 17:46] LABS: Erythrocyte Sedimentation Rate 2 mm/hr (0-30)
[2024-04-05 13:07] LABS: Complement C3 111 mg/dL (82-167)
[2024-04-05 15:07] LABS: Anti-dsDNA Ab 8 IU/mL (0-9)
[2024-04-12 17:57] LABS: Prothrombin Time (Protime)PT. 23.4 SECONDS (11.7-14.9)
[2024-04-21 13:04] LABS: INR Fingerstick 2.5
== END 2024-04-21 18:00 | disposition home or self-care (01) ==
LOC: MTLAB 12:43
PROVIDERS: PCP Family Medicine; Referring Provider Internal Medicine Rheumatology; Visit Provider Internal Medicine Cardiovascular Disease
DX: D50.9 Iron deficiency anemia, unspecified (principal); Z86.73 Personal history of transient ischemic attack (TIA), and cerebral infarction without residual deficits; Z79.899 Other long term (current) drug therapy

== ENCOUNTER 2024-04-27 16:21 | Outpatient (RCR) | payer OTHER, SELFPAY ==
[2024-03-24 11:45] VITALS: BMI 31.4
[2024-04-27 16:33] LABS: INR Fingerstick 2.8; Prothrombin Time Fingerstick 29.8 SEC (11.7-14.9)
== END 2024-05-19 18:00 | disposition home or self-care (01) ==
LOC: MTLAB 16:21
PROVIDERS: PCP Family Medicine; Referring Provider Internal Medicine Rheumatology; Visit Provider Internal Medicine Cardiovascular Disease
DX: Z95.2 Presence of prosthetic heart valve (principal); Z79.01 Long term (current) use of anticoagulants
CPT/HCPCS: 36416; 85610

== ENCOUNTER → 2024-05-10 | Outpatient (CLI) | payer OTHER, SELFPAY ==
[2024-03-24 11:45] VITALS: BMI 31.4
[2024-05-10 15:36] LABS: Hematocrit 46.8 % (37-47); Hemoglobin 15.3 g/dL (12.0-15.0); Mean Corp Hgb Conc 32.7 g/dL (32-36); Mean Corpuscular Hgb 28.2 pg (27.0-32.0); Mean Corpuscular Volume 86.2 fL (81-99); Platelet Count 202 K/mm3 (150-450); RBC Distribution Width SD 44.2 fl (35.1-43.9); Red Blood Count 5.43 M/mm3 (4.2-5.4); White Blood Count 7.5 K/mm3 (4.4-11.0)
[2024-05-10 15:44] LABS: International Normalized Ratio 2.9; Prothrombin Time (Protime)PT. 30.6 SECONDS (11.7-14.9)
[2024-05-10 16:34] LABS: ALB/GLOB Ratio 1.1 RATIO (0.9-2.4); AST(SGOT) 33 U/L (15-37); Alanine Aminotransfer ALT/SGPT 33 U/L (13-56); Albumin, Serum 3.8 g/dL (3.2-5.0); Alkaline Phosphatase 110 U/L (45-117); Anion Gap 11 (5-15); BUN 17 mg/dL (7-18); Calcium,Total 9.5 mg/dL (8.5-10.1); Chloride 105 mmol/L (98-107); Creatinine, Serum 0.77 mg/dL (0.55-1.02); EST Glomerular Filtration Rate 84 mL/min (>60); Est Glom Filt Rate - Afr Amer 102 mL/min (>60); Globulin 3.6 g/dL (2.2-4.2); Glucose 79 mg/dL (74-106); Potassium 4.2 mmol/L (3.5-5.1); Protein, Total 7.4 g/dL (6.4-8.2); Sodium Level 139 mmol/L (136-145); T4 Total, Thyroxin 8.9 ug/dL (4.8-13.9)
== END | disposition home or self-care (01) ==
LOC: MFPLAB 11:50
PROVIDERS: Internal Medicine Cardiovascular Disease; PCP Family Medicine
DX: Z79.01 Long term (current) use of anticoagulants (principal); Z95.2 Presence of prosthetic heart valve; L65.9 Nonscarring hair loss, unspecified
CPT/HCPCS: 36415; 80053; 84436; 84443; 85027; 85610

== ENCOUNTER → 2024-07-04 | Outpatient (CLI) | payer OTHER, SELFPAY ==
[2024-03-24 11:45] VITALS: BMI 31.4
[2024-07-04 18:41] LABS: Prothrombin Time (Protime)PT. 31.5 SECONDS (11.7-14.9)
== END | disposition home or self-care (01) ==
LOC: MFPLAB 15:02
PROVIDERS: Specialist; PCP Family Medicine; Referring Provider Physician Assistant Medical; Visit Provider Physician Assistant Medical
DX: Z95.2 Presence of prosthetic heart valve (principal); Z79.01 Long term (current) use of anticoagulants
CPT/HCPCS: 36415; 85610

== ENCOUNTER 2024-08-16 12:22 | Outpatient (RCR) | payer OTHER, SELFPAY ==
[2024-03-24 11:45] VITALS: BMI 31.4
[2024-07-27 18:14] LABS: International Normalized Ratio 2.4; Prothrombin Time (Protime)PT. 26.7 SECONDS (11.7-14.9)
[2024-08-16 12:59] LABS: International Normalized Ratio 2.9; Prothrombin Time (Protime)PT. 30.7 SECONDS (11.7-14.9)
== END 2024-08-16 18:00 | disposition home or self-care (01) ==
LOC: LAB 12:22
PROVIDERS: PCP Family Medicine; Referring Provider Internal Medicine Rheumatology; Visit Provider Internal Medicine Cardiovascular Disease
DX: Z95.2 Presence of prosthetic heart valve (principal); Z79.01 Long term (current) use of anticoagulants
CPT/HCPCS: 36415; 85610

== ENCOUNTER → 2024-09-21 | Outpatient (CLI) | payer OTHER, SELFPAY ==
[2024-03-24 11:45] VITALS: BMI 31.4
[2024-09-21 15:31] LABS: Mucous, Urine 0 SEEN /hpf (<or=2+)
[2024-09-21 18:26] LABS: AST(SGOT) 33 U/L (<=31); Alanine Aminotransfer ALT/SGPT 30 U/L (<=34); BUN 19 mg/dL (4-19); CRP 3.74 mg/L (0.0-3.0)
[2024-09-21 18:57] LABS: Hematocrit 39.6 % (37-47); Hemoglobin 13.3 g/dL (12.0-15.0); Immature Granulocytes Count 0.020 X10^3/uL (0.0-0.0); Mean Corp Hgb Conc 33.6 g/dL (32-36); Mean Corpuscular Volume 87.0 fL (81-99); Mean Platelet Vol. 10.5 fl (6.2-12.0); NRBC Flagged by Analyzer 0 % (0-5); Platelet Count 156 K/mm3 (150-450); RBC Distribution Width CV 12.7 % (11.6-14.6); RBC Distribution Width SD 40.4 fl (35.1-43.9); Red Blood Count 4.55 M/mm3 (4.2-5.4); White Blood Count 4.5 K/mm3 (4.4-11.0)
[2024-09-21 23:06] LABS: Color, Urine Yellow (Yellow); Glucose, Dipstick Normal (Normal); Ketone-Dipstick Negative (Negative); Leukocyte Esterase-Dipstick Negative /ul (Negative); Nitrite-Dipstick Negative (Negative); Occult Blood-Urine Negative /ul (Negative); Protein-Dipstick Negative (Negative); Specific Gravity, Urine 1.015 (1.002-1.030); Urine Bilirubin Dipstick Negative (Negative)
[2024-09-22 01:04] LABS: Squamous Epithelial Cells - UA 0-5 SEEN /hpf (5-10)
[2024-09-22 01:06] LABS: Red Blood Cells-Urine 0-5 SEEN /hpf (0-5)
[2024-09-25 11:08] LABS: Anti-dsDNA Ab 51 IU/mL (0-9)
== END | disposition home or self-care (01) ==
LOC: LAB 15:27
PROVIDERS: PCP Family Medicine; Referring Provider Internal Medicine Rheumatology; Visit Provider Internal Medicine Rheumatology
DX: M32.9 Systemic lupus erythematosus, unspecified (principal); Z79.899 Other long term (current) drug therapy
CPT/HCPCS: 36415; 81001; 81002; 82565; 84450; 84460; 84520; 85025; 85652; 86140; 86160; 86225

== ENCOUNTER 2024-10-17 14:45 | Outpatient (RCR) | payer OTHER, SELFPAY ==
[2024-03-24 11:45] VITALS: BMI 31.4
[2024-09-19 19:23] LABS: Prothrombin Time (Protime)PT. 35.8 SECONDS (11.7-14.9)
[2024-10-17 16:54] LABS: Prothrombin Time (Protime)PT. 33.5 SECONDS (11.7-14.9)
== END 2024-10-19 20:43 | disposition home or self-care (01) ==
LOC: LAB 14:45
PROVIDERS: PCP Family Medicine; Referring Provider Internal Medicine Cardiovascular Disease; Visit Provider Internal Medicine Cardiovascular Disease
DX: Z79.01 Long term (current) use of anticoagulants (principal); Z95.2 Presence of prosthetic heart valve
CPT/HCPCS: 36415; 85610

== ENCOUNTER → 2024-10-17 | Outpatient (CLI) | payer OTHER, SELFPAY ==
[2024-03-24 11:45] VITALS: BMI 31.4
--- NOTE | 2024-10-17 14:52 | ECHOD_ITS ---
Reason For Study Reason For Study: AORTIC VALVE REPLACEMENT Procedure This was a 2D Doppler, Color Flow transthoracic echocardiogram. Exam performed in department. Left Ventricle Normal left ventricle. Left ventricular systolic function is normal. The left ventricular ejection fraction is 60 %. Stage 2 diastolic dysfunction. No regional wall motion abnormalities noted. Right Ventricle Normal RV size. Normal systolic function. Atria Normal left atrium. Normal right atrium. Mitral Valve Normal mitral valve. Tricuspid Valve Normal tricuspid valve. Mild (1+) tricuspid valve insufficiency. Pulmonary artery systolic pressure is 24 mmHg. Aortic Valve Peak aortic valve gradient 11.2 mmHg. Mean aortic valve gradient 6 mmHg. Trivial aortic valve insufficiency. Stable appearing mechanical aortic valve apparatus. Pulmonic Valve Normal pulmonic valve. Great Vessels Normal aortic root. The pulmonary artery is normal size. Inferior vena cava collapse with respiration. Pericardium/Pleural No pericardial effusion. MMode/2D Measurements & Calculations LVIDd: 4.4 cm IVSd: 1.2 cm LVOT diam: 2.0 cm LVIDs: 3.0 cm LVPWd: 1.0 cm LVOT area: 3.1 cm2 RVDd: 3.8 cm FS: 31.5 % asc Aorta Diam: 3.4 cm LAV(MOD-bp): 43.6 ml LVAd ap4: 25.3 cm2 LAV(MOD-bp) Indexed: 23.9 ml/m2 LVLd ap4: 7.9 cm LAV(MOD-sp2): 51.6 ml EDV(MOD-sp4): 69.9 ml LAV(MOD-sp4): 36.8 ml EDV(sp4-el): 68.6 ml LVAs ap4: 15.4 cm2 LVLs ap4: 7.1 cm ESV(MOD-sp4): 28.9 ml ESV(sp4-el): 28.4 ml EF(MOD-sp4): 58.7 % EF(sp4-el): 58.6 % LVAd ap2: 27.3 cm2 SV(MOD-sp4): 41.0 ml SV(MOD-sp2): 45.0 ml LVLd ap2: 8.3 cm SI(MOD-sp4): 22.5 ml/m2 SI(MOD-sp2): 24.6 ml/m2 EDV(MOD-sp2): 76.0 ml EDV(sp2-el): 76.3 ml LVAs ap2: 16.3 cm2 LVLs ap2: 7.3 cm ESV(MOD-sp2): 31.0 ml ESV(sp2-el): 30.7 ml EF(MOD-sp2): 59.2 % SV(sp4-el): 40.2 ml Ao sinus diam: 3.[address] Junction: 3.1 cm LA dimension(2D): 3.9 cm LA A4 area: 16.2 cm2 RA A4 area: 15.8 cm2 TAPSE: 1.5 cm Time Measurements MV dec time: 0.16 sec Doppler Measurements & Calculations MV E max jovani: 72.0 cm/sec Lat Peak E' Jovani: 13.4 cm/sec Med Peak E' Jovani: 7.7 cm/sec MV A max jovani: 57.2 cm/sec E/E' lat: 5.4 E/E' med: 9.3 MV E/A: 1.3 MV dec slope: 441.1 cm/sec2 Ao V2 max: 167.6 cm/sec AI max jovani: 500.8 cm/sec Ao max P.2 mmHg AI max P.3 mmHg Ao V2 mean: 115.9 cm/sec AI dec slope: 255.4 cm/sec2 Ao mean P.1 mmHg AI P1/2t: 574.3 msec Ao V2 VTI: 33.2 cm AV (velocity ratio): 0.59 BUSTRE(I,D): 1.8 cm2 BUSTER(V,D): 1.7 cm2 LV V1 max: 94.1 cm/sec SV(LVOT): 60.3 ml PA V2 max: 67.2 cm/sec LV V1 max P.5 mmHg LV V1 mean P.9 mmHg LV V1 mean: 64.0 cm/sec LV V1 VTI: 19.7 cm PI end-d jovani: 56.5 cm/sec TR max jovani: 226.4 cm/sec TR max P.5 mmHg ECHO/Echo Complete Interpretation Summary Normal left ventricle. Left ventricular systolic function is normal. The left ventricular ejection fraction is 60 %. Stage 2 diastolic dysfunction. Stable appearing mechanical aortic valve apparatus. Mean aortic valve gradient 6 mmHg. Ordering Physician: Adam Solorzano Referring Physician: Adam Solorzano MD Performed By: Viktoria Wilcox RDCS
== END | disposition home or self-care (01) ==
LOC: CVS 14:44
PROVIDERS: PCP Family Medicine; Referring Provider Internal Medicine Cardiovascular Disease; Visit Provider Internal Medicine Cardiovascular Disease
DX: Z95.2 Presence of prosthetic heart valve (principal)
CPT/HCPCS: 93306

== ENCOUNTER 2024-11-21 15:55 | Outpatient (RCR) | payer OTHER, SELFPAY ==
[2024-03-24 11:45] VITALS: BMI 31.4
[2024-11-21 17:38] LABS: Prothrombin Time (Protime)PT. 32.3 SECONDS (11.7-14.9)
== END 2024-12-19 18:00 | disposition home or self-care (01) ==
LOC: LAB 15:55
PROVIDERS: PCP Family Medicine; Referring Provider Internal Medicine Cardiovascular Disease; Visit Provider Internal Medicine Cardiovascular Disease
DX: Z95.2 Presence of prosthetic heart valve (principal); Z79.01 Long term (current) use of anticoagulants
CPT/HCPCS: 36415; 85610

== ENCOUNTER 2024-12-20 14:19 | Outpatient (RCR) | payer OTHER, SELFPAY ==
[2024-03-24 11:45] VITALS: BMI 31.4
[2024-12-20 15:00] LABS: Prothrombin Time (Protime)PT. 34.6 SECONDS (11.7-14.9)
== END 2024-12-20 18:00 | disposition home or self-care (01) ==
LOC: LAB 14:19
PROVIDERS: PCP Family Medicine; Referring Provider Internal Medicine Cardiovascular Disease; Visit Provider Internal Medicine Cardiovascular Disease
DX: Z95.2 Presence of prosthetic heart valve (principal); Z79.01 Long term (current) use of anticoagulants
CPT/HCPCS: 36415; 85610

== ENCOUNTER → 2025-01-10 | Outpatient (CLI) | payer OTHER, SELFPAY ==
[2024-03-24 11:45] VITALS: BMI 31.4
--- NOTE | 2025-01-10 14:02 | RAD_ITS ---
PROCEDURE: FOOT MIN 3 VIEWS 01/10/2025 REASON FOR EXAM: LEFT FOOT PAIN TECHNIQUE: Procedure Code: RADFO Modality: DX Procedure: FOOT MIN 3 VIEWS Laterality: Left COMPARISON: None FINDINGS: Bones: No fracture or suspicious osseous lesion Joints: Normal alignment. Soft tissues: Soft tissues are unremarkable. Other: Calcaneal spurs RAD/Foot min 3 Views IMPRESSION: Calcaneal spurs, otherwise unremarkable left foot Reading Location: [id number]
--- NOTE | 2025-01-10 14:02 | RAD_ITS ---
PROCEDURE: FOOT MIN 3 VIEWS 01/10/2025 REASON FOR EXAM: LEFT FOOT PAIN TECHNIQUE: Procedure Code: RADFO Modality: DX Procedure: FOOT MIN 3 VIEWS Laterality: Left COMPARISON: None FINDINGS: Bones: No fracture or suspicious osseous lesion Joints: Normal alignment. Soft tissues: Soft tissues are unremarkable. Other: Calcaneal spurs RAD/Foot min 3 Views IMPRESSION: Calcaneal spurs, otherwise unremarkable left foot Reading Location: [id number]
== END | disposition home or self-care (01) ==
LOC: MTRAD 13:57
PROVIDERS: PCP Family Medicine; Referring Provider Family Medicine; Visit Provider Family Medicine
DX: M79.672 Pain in left foot (principal)
CPT/HCPCS: 73630

== ENCOUNTER 2025-01-23 15:23 | Outpatient (RCR) | payer OTHER, SELFPAY ==
[2024-03-24 11:45] VITALS: BMI 31.4
[2025-01-23 17:59] LABS: Prothrombin Time (Protime)PT. 35.5 SECONDS (11.7-14.9)
== END 2025-02-17 18:00 | disposition home or self-care (01) ==
LOC: MTLAB 15:23
PROVIDERS: PCP Family Medicine; Referring Provider Internal Medicine Cardiovascular Disease; Visit Provider Internal Medicine Cardiovascular Disease
DX: Z95.2 Presence of prosthetic heart valve (principal); Z79.01 Long term (current) use of anticoagulants
CPT/HCPCS: 36415; 85610

== ENCOUNTER → 2025-01-31 | Outpatient (CLI) | payer OTHER, SELFPAY ==
[2024-03-24 11:45] VITALS: BMI 31.4
[2025-01-31 11:30] LABS: Mucous, Urine 0 SEEN /hpf (<or=2+); Squamous Epithelial Cells - UA 0 SEEN /hpf (5-10)
[2025-01-31 11:50] LABS: Hematocrit 42.6 % (37-47); Hemoglobin 14.7 g/dL (12.0-15.0); Immature Granulocytes Count 0.020 X10^3/uL (0.0-0.0); Mean Corp Hgb Conc 34.5 g/dL (32-36); Mean Corpuscular Volume 83.9 fL (81-99); Mean Platelet Vol. 9.4 fl (6.2-12.0); NRBC Flagged by Analyzer 0 % (0-5); Platelet Count 191 K/mm3 (150-450); RBC Distribution Width CV 12.8 % (11.6-14.6); RBC Distribution Width SD 38.8 fl (35.1-43.9); Red Blood Count 5.08 M/mm3 (4.2-5.4); White Blood Count 4.9 K/mm3 (4.4-11.0)
[2025-01-31 12:38] LABS: Color, Urine Yellow (Yellow); Glucose, Dipstick Normal (Normal); Ketone-Dipstick Negative (Negative); Leukocyte Esterase-Dipstick 100 /ul (Negative); Nitrite-Dipstick Negative (Negative); Occult Blood-Urine 50 /ul (Negative); Protein-Dipstick 30 mg/dl (Negative); Specific Gravity, Urine 1.030 (1.002-1.030); Urine Bilirubin Dipstick Negative (Negative)
[2025-01-31 13:06] LABS: EXAGEN MAILED SPECIMEN
[2025-01-31 13:15] LABS: Red Blood Cells-Urine 0-5 SEEN /hpf (0-5)
[2025-01-31 13:19] LABS: AST(SGOT) 20 U/L (<=31); Alanine Aminotransfer ALT/SGPT 17 U/L (<=34); Albumin, Serum 4.4 g/dL (3.5-5.0); Alkaline Phosphatase 109 U/L (35-104); Anion Gap 12 (5-15); BUN 15 mg/dL (4-19); BUN/Creat Ratio 19.7 RATIO (10-20); CRP 5.67 mg/L (0.0-3.0); Calcium,Total 9.2 mg/dL (7.6-11.0); Carbon Dioxide 24.1 mmol/L (21.0-32.0); Chloride 104 mmol/L (98-108); Globulin 2.7 g/dL (2.2-4.2); Glucose 93 mg/dL (70-99); Hepatitis B Surface Antigen Nonreactive (Nonreactive); Hepatitis C Antibody Nonreactive (Nonreactive); Potassium 4.4 mmol/L (3.3-5.1)
[2025-01-31 13:56] LABS: Creatinine, Urine (random) 101.00 mg/dL (28.00-217.00); Protein, Urine (Random) 17.7 mg/dL (0.0-12.0); Protein:Creat Ratio 175 mg/g CRE (0-200)
== END | disposition home or self-care (01) ==
LOC: LAB 11:25
PROVIDERS: PCP Family Medicine; Referring Provider Internal Medicine Rheumatology; Visit Provider Internal Medicine Rheumatology
DX: M06.4 Inflammatory polyarthropathy (principal); M32.19 Other organ or system involvement in systemic lupus erythematosus; Z79.899 Other long term (current) drug therapy; M35.9 Systemic involvement of connective tissue, unspecified
CPT/HCPCS: 36415; 80053; 81001; 82570; 84156; 85025; 85652; 86140; 86706; 86803; 87340

== ENCOUNTER → 2025-02-02 | Outpatient (CLI) | payer OTHER, SELFPAY ==
[2024-03-24 11:45] VITALS: BMI 31.4
--- OUTSIDE RECORDS SUMMARY | 2025-02-02 17:04 | XMS RPT_ITS | CCD ---
Author Organization [facility] Care Team Providers Care Engineering Model Maker Name Role Phone Dr. Kennedy Jaquez Primary Care Provider [phone] Kennedy Jaquez Referring Provider Dr. Alex Harrell Attending Provider 1([facility])[phone] Franchesca Aceves Attending Provider 1([facility])[phone] Alex Harrell Referring Provider 1([facility])[phone] Bhupinder Recinos Referring Provider 1([facility])[phone] Adam Solorzano Attending Provider [phone] Kennedy Jaquez Primary Care Provider Dr. Kennedy Jaquez Referring Provider Dr. Alex Harrell Attending Provider 1([facility])[phone] Kennedy Jaquez Primary Care Provider Dr. Franchesca Aceves Attending Provider 1([facility])[phone] Alex Harrell Referring Provider 1([facility])[phone] MD Bhupinder Hamlin Primary Care Provider MD Bhupinder Merida Referring Provider Unavailable BHUPINDER HAMLIN MD Primary Care Physician Dr. Alex Harrell Attending Provider MD Bhupinder Hamlin Primary Care Provider UnavailMD Bhupinder Gutierrez Referring Provider Unavailable Dr. Bhupinder Hamlin Primary Care Provider [phone] Dr. Adam Solorzano Attending Provider 1([facility])-[phone] BHUPINDER HAMLIN MD Primary Care Unavailable KARLA CERVANTES MD Attending Unavailable BHUPINDER HAMLIN MD Primary Care Unavailable ARNOL BACH, KARLA Attending Unavailable BOUBACAR BACH, BHUPINDER Primary Care Unavailable ARNOL BACH, KARLA Attending Unavailable DEEJAY BACH, TRUNG Consulting Unavailable RADHA BACH, HODAN Alfred Consulting Unavailable BOUBACAR BACH, BHUPINDER Primary Care Unavailable SID BARTON, KRYS Attending Unavaila naida HAMLIN MD, BHUPINDER Primary Care Unavailable ARNOL BACH, KARLA Attending Unavailable Dr. Deejay Dawson Attending Provider MD Bhupinder Hamlin Referring Provider Unavailable Dr. Alex Harrell Attending Provider Dr. Bhupinder Hamlin Primary Care Provider Dr. Bhupinder Hamlin Referring Provider Dr. Kennedy Jaquez Referring Provider Roof BALLOON SELLER, BALLOON SELLER-C Bhupinder Vick Attending Provider Dr. Deejay Dawson Attending Provider Dr. Deejay Dawson Referring Provider Dr. Bhupinder Hamlin Primary Care Provider Dr. Deejay Dawson Attending Provider Dr. Deejay Dawson Referring Provider Dr. Bhupinder Hamlin Referring Provider Dr. Alex Harrell Attending Provider Dr. Bhupinder Hamlin Primary Care Provider Dr. Bhupinder Hamlin Referring Provider Dr. Deejay Dawson Attending Provider Dr. Deejay Dawson Referring Provider Dr. Bhupinder Hamlin Primary Care Provider Dr. Deejay Dawson Attending Provider Dr. Deejay Dawson Referring Provider Dr. Bhupinder Hamlin Referring Provider Dr. Alex Harrell Attending Provider Dr. Bhupinder Hamlin Primary Care Provider Dr. Deejay Dawson Attending Provider Dr. Deejay Dawson Referring Provider Dr. Bhupinder Hamlin Primary Care Provider [phone] Dr. Deejay Dawson Attending Provider Dr. Deejay Dawson Referring Provider Dr. Bhupinder Hamlin [facility]. Bhupinder Hamlin Primary Care Provider [phone] Carly, Dr. Villalba Attending Provider Dr. Deejay Dawson Referring Provider Boubacar BACH, Bhupinder Ramirez Primary Care Provider Jay BACH, Bhupinder Mora Unavailable Jeanine BACH, Morriston S Unavailable Yasmin Dawson MD Unavailable Dago BACH, Talha Unavailable BHUPINDER HAMLIN Primary Care Unavailable THERESA MARTINEZ Referring Unavailable KORI BANG Attending Unavailable BHUPINDER HAMLIN Primary Care Unavailable BHUPINDER HAMLIN Primary Care Unavailable YASMIN DAWSON Attending Unavailable SELF Referring Unavailable BHUPINDER HAMLIN Primary Care Unavailable TALHA LOZA Attending Unavailable BHUPINDER HAMLIN Primary Care Unavailable YASMIN DAWSON Referring Unavailable YASMIN DAWSON Referring Unavailable BHUPINDER HAMLIN Primary Care Unavailable BHUPINDER HAMLIN Primary Care Unavailable ALLI JAMES Attending Unavailable YASMIN DAWSON Referring Unavailable BHUPINDER HAMLIN Primary Care Unavailable YASMIN DAWSON Referring Unavailable BHUPINDER HAMLIN Primary Care Unavailable YASMIN DAWSON Referring Unavailable ALLI JAMES Attending Unavailable BHUPINDER HAMLIN Primary Care Unavailable YASMIN DAWSON Referring Unavailable SCHFREYA, BHUPINDER Ramirez Primary Care Unavailable YASMIN DAWSON Referring Unavailable SCHINNER, BHUPINDER E Primary Care Unavailable YASMIN DAWSON John Referring Unavailable SCHINNER, BHUPINDER E Primary Care Unavailable SVYASMIN WHITE John Referring Unavailable SCHINNER, BHUPINDER E Primary Care Unavailable SVYASMIN WHITE G Referring Unavailable SCHINNER, BHUPINDER E Primary Care Unavailable SVYASMIN WHITE Referring Unavailable ERIKA ANDEMANI Attending Unavailable SVYASMIN WHITE Referring Unavailable SCHINNER, BHUPINDER E Primary Care Unavailable SCHINNER, BHUPINDER E Primary Care Unavailable SVYASMIN WHITE G Referring Unavailable SCHINNER, BHUPINDER E Primary Care Unavailable ARLIN JOSEPH Attending Unavailable ALEX NICHOLS Admitting Unavailable CONSUELOES, PUNEET R Referring Unavailable SCHINNER, BHUPINDER E Primary Care Unavailable YASMIN DAWSON John Attending Unavailable YASMIN DAWSON G Admitting Unavailable RONNALAKIS, ANDEGONI Referring Unavailable SCHINNER, BHUPINDER E Primary Care Unavailable DUTCH FAITH Attending Unavailable SCHINNER, BHUPINDER E Primary Care Unavailable YASMIN DAWSON Referring Unavailable SCHINNER, BHUPINDER E Primary Care Unavailable YASMIN DAWSON Referring Unavailable SCHINNER, BHUPINDER E Primary Care Unavailable Dr. Alex Harrell MD Attending Provider 1([facility])[phone] Dr. Alex Harrell MD Referring Provider 1([facility])[phone] Dr. Bhupinder Hamlin MD Primary Care Provider [phone] Dr. Bhupinder Hamlin MD Referring Provider 1([facility] )[phone] Dr. Adam Solorzano MD Attending Provider 1([facility])[phone] Dr. Adam Solorzano MD Referring Provider 1([facility])[phone] Magaly Ceron Other Provider 1([facility])[phone] Dr. Bhupinder Hamlin MD Attending Provider 1([facility] )[phone] Dr. Prince Turner MD Attending Provider 1([facility])[phone] WANDY ROWAN MD Referring Provider 1([facility])[phone] McMorrow BALLOON SELLER-CGab Attending Provider 1([facility])[phone] Dr. Adam Solorzano MD Other Provider 1([facility])[phone] Day ARIZMENDICBhupinder Attending Provider 1([facility])[phone] Carly BACH, Dr. Villalba Attending Provider 1([facility] )[phone] WANDY ROWAN MD Other Provider Carly BACH, Dr. Villalba Other Provider Boubacar BACH, Dr. Bhupinder Ramirez Primary Care Provider Dr. Bhupinder Hamlin MD Referring Provider Magaly Ceron Attending Provider Magaly Ceron Referring Provider Dr. Bhupinder Hamlin MD Primary Care Provider Jeanine BACH, Dr. Medina Attending Provider Magaly Ceron Other Provider [phone] Bhupinder Hamlin MD Referring Provider Dr. Bhupinder Hamlin MD Primary Care Provider Jeanine BACH, Dr. Medina Attending Provider [phone] Magaly Ceron Other Provider [phone] WANDY ROWAN MD Referring Provider Julio Cesar BACH, Dr. Johnson Attending Provider Dr. Alex Harrell MD Referring Provider Lyndon MOFFETT-CLazara Attending Provider Dr. Bhupinder Hamlin MD Primary Care Provider Dr. Bhupinder Hamlin MD Referring Provider Dr. Adam Solorzano MD Attending Provider Magaly Ceron Other Provider WANDY ROWAN MD Referring Provider Dr. Bhupinder Hamlin MD Primary Care Provider Dr. Bhupinder Hamlin MD Referring Provider Dr. Adam Solorzano MD Referring Provider WANDY ROWAN MD Attending Provider Dr. Bhupinder Hamlin MD Primary Care Provider [phone] Jeanine BACH, Dr. Medina Attending Provider Magaly Ceron Other Provider WANDY ROWAN MD Referring Provider WANDY ROWAN MD Other Provider Carly BACH, Dr. Villalba Other Provider Jeanine BACH, Dr. Medina Referring Provider Julio Cesar BACH, Dr. Johnson Attending Physician Boubacar BACH, Dr. Bhupinder Ramirez Primary Care Physician Lyndon BALLOON SELLER-C, Lazara Attending Physician Jeanine BACH, Dr. Medina Attending Physician WANDY ROWAN MD Attending Physician WANDY ROWAN MD Referring Provider Magaly Ceron Nurse Practitioner WANDY ROWAN MD Nurse Practitioner Carly BACH, Dr. Villalba Nurse Practitioner Bhupinder Hamlin E Primary Care Unavailable Jeanine, Morriston Attending Unavailable Jeanine, Adam Referring Unavailable Schinner Bhupinder E Primary Care Unavailable Jeanine, Adam Referring Unavailable Jeanine, Morriston Attending Unavailable Epiner, Bhupinder E Referring Unavailable Schinner Bhupinder E Primary Care Unavailable Bhupinder Bernstein Attending Unavailable HARPAL, RALLIS Attending Unavailable Schinner, Bhupinder E Primary Care Unavailable HARPAL, RALLIS Referring Unavailable Schinner, Bhupinder E Primary Care Unavailable Schinner, Bhupinder E Consulting Unavailable HARPAL, RALLIS Referring Unavailable HARPAL, RALLIS Attending Unavailable Schinner, Bhupinder E Primary Care Unavailable Jeanine, Adam Referring Unavailable Magaly Huang Consulting Unavailabl e Jeanine, Morriston Attending Unavailable Bhupinder Hamlin E Primary Care Unavailable Alex Harrell Referring Unavailable Alex Harrell Attending Unavailable Bhupinder Hamlin E Primary Care Unavailable Jeanine, Morriston Attending Unavailable Deejay Dawson Attending Unavailable Schinner, Bhupinder E Primary Care Unavailable Schinner, Bhupinder E Referring Unavailable Schinner, Bhupinder E Primary Care Unavailable Jeanine, Morriston Referring Unavailable Jeannie, Adam Attending Unavailable Schinner, Bhupinder E Primary Care Unavailable Schinner, Bhupinder E Referring Unavailable Bhupnider Bernstein Attending Unavailable Schinner, Bhupinder E Primary Care Unavailable Jeanien, Morriston Attending Unavailable Jeanine, Morriston Referring Unavailable Schinner, Bhupinder E Primary Care Unavailable Magaly Huang Consulting Unavailabl e Jeanine, Adam Attending Unavailable Jeanine, Adam Referring Unavailable Deejay Dawson Consulting Unavailable RACHEL ROWANLIS Consulting Unavailable Schinner, Bhupinder E Primary Care Unavailable Schinner, Bhupinder E Referring Unavailable Jeanine, Morriston Attending Unavailable Schinner, Bhupinder E Primary Care Unavailable Schinner, Bhupinder E Referring Unavailable Alex Harrell Attending Unavailable Schinner, Bhupinder E Primary Care Unavailable Magaly Huang Consulting Unavailabl e Jeanine, Adam Attending Unavailable Jeanine, Morriston Referring Unavailable Deejay Dawson Consulting Unavailable RACHEL ROWANLIS Consulting Unavailable Schinner, Bhupinder E Primary Care Unavailable Jeanine, Morriston Consulting Unavailable McMorrow BALLOON SELLER, Gab Attending Unavailable Schinner, Bhupinder E Primary Care Unavailable HARPAL, URIELS Referring Unavailable Magaly Huang Consulting Unavailabl e Jeanine, Morriston Attending Unavailable Deejay Dawson Consulting Unavailable HARPAL, RALLIS Consulting Unavailable Schinner, Bhupinder E Primary Care Unavailable Schinner, Bhupinder E Referring Unavailable Schinner, Bhupinder E Attending Unavailable Schinner, Bhupinder E Primary Care Unavailable URIEL ROWANS Referring Unavailable Magaly Huang Consulting Unavailabl e Jeanine, Adam Attending Unavailable Schinner, Bhupinder E Primary Care Unavailable Jeanine, Adam Referring Unavailable Jeanine, Morriston Attending Unavailable Schinner, Bhupinder E Primary Care Unavailable Schinner, Bhupinder E Referring Unavailable Lyndon BALLOON SELLERLazara Attending Unavailable Jeanine, Adam Referring Unavailable Schinner, Bhupinder E Primary Care Unavailable Magaly Huang Consulting Unavailabl e Jeanine, Morriston Attending Unavailable Deejay Dawson Consulting Unavailable HARPAL, RALLIS Consulting Unavailable Schinner, Bhupinder E Primary Care Unavailable Beverly Knott Attending Unavailable Beverly Knott Referring Unavailable Schinner, Bhupinder E Primary Care Unavailable Schinner, Bhupinder E Attending Unavailable Schinner, Bhupinder E Referring Unavailable Schinner, Bhupinder E Primary Care Unavailable WANDY ROWAN Consulting Unavailable Jeanine, Morriston Referring Unavailable Jeanine, Adam Attending Unavailable Magaly Huang Consulting Unavailabl e Tari Fowler Consulting Unavailable Schinner, Bhupinder E Primary Care Unavailable Magaly Huang Consulting Unavailabl e Jeanine, Morriston Attending Unavailable Jeanine, Morriston Referring Unavailable Deejay Dawson Consulting Unavailable HARPAL RALLIS Consulting Unavailable Schinner, Bhupinder E Attending Unavailable Schinner, Bhupinder E Referring Unavailable Schinner, Bhupinder E Primary Care Unavailable Schinner, Bhupinder E Primary Care Unavailable Schinner, Bhupinder E Attending Unavailable Schinner, Bhupinder E Referring Unavailable Schinner, Bhupinder E Primary Care Unavailable URIEL ROWANS Referring Unavailable Magaly Huang Consulting Unavailabl e Jeanine, Morriston Attending Unavailable Deejay Dawson Consulting Unavailable HARPAL, RALLIS Consulting Unavailable Schinner, Bhupinder E Primary Care Unavailable Magaly Huang Referring Unavailabl Magaly Cuellar Attending Unavailabl e Schinner, Bhupinder E Primary Care Unavailable Jeanine, Morriston Attending Unavailable Magaly Huang Consulting Unavailabl e HARPAL, RALLIS Referring Unavailable Schinner, Bhupinder E Primary Care Unavailable Jeanine, Adam Consulting Unavailable WANDY ROWAN Attending Unavailable Allergies Allergy Classification Reported Allergen(s) Allergy Type Date of Onset Reaction(s) Facility (20 sources) Ketorolac; Translations: [KETOROLAC TROMETHAMINE] Drug Allergy 7 Shortness of breath [facility] (5 sources) Ketorolac; Translations: [ketorolac] Drug Allergy Difficulty breathing (finding) [facility] (20 sources) Wheat gluten extract; Translations: [GLUTEN] Drug Allergy 4 Intolerance, GI Upset [facility] Medications Current Medications Medication Drug Class(es) Dates Sig (Normalized) Sig (Original) acetaminophen 325 mg oral tablet (16 sources) Start: 12-12-2023 take 2 tablets by mouth every six hours as needed for pain Start: 11-11-2023 take 2 tablets enter al route every six hours as needed acetaminophen (TYLENOL) 325 mg tablet 2 tablets by ORAL/FEEDING TUBE route every 6 hours as needed (for mild surgical pain). 100 tablet 11/11/2023 Active Start: 12-22-2021 End: 01-01-2022 Tylenol 8 Hour 650 mg oral t ablet, extended release Dose : 1,300 mg = 2 tab(s), Oral, q8h, X 5 day(s), # 30 tab(s), 1 Refill(s), 01/01/22 19:21:00 EDT, Pharmacy: [facility]/pharmacy #[id number], 157.5, cm, 12/22/21 10:31:00 EDT, Height, kg, 12/22/21 10:31:00 EDT, Dosing Weight Start Date: 12/22/21 Stop Date: 01/01/22 Status: Ordered [id number] 200 actuat albuterol 0.09 mg/actuat metered dose inhaler (20 sources) beta2-Adrenergic Agonist Start: 05-30-2021 Albut ros Sulfate Active 1 INH INHALATION ONCE May 30, 2021 4:32pm Start: 05-14-2021 End: 05-30-2021 Albuterol Sulfate Discontinu ed 1 INH INHALATION ONCE May 14, 2021 4:05pm May 30, 2021 4:34pm Start: 05-14-2021 End: 05-30-2021 Albuterol Sulfate 90 mcg/act uation HFA aerosol inhaler Discontinued 1 NMA INHALATION ONCE May 14, 2021 1:00am May 30, 2021 4:34pm Start: 05-14-2021 End: 05-30-2021 Albuterol Sulfate Discontinu ed 1 INH INHALATION ONCE May 14, 2021 1:00am May 30, 2021 4:34pm amoxicillin 500 mg oral tabl et (13 sources) Penicillin-class Antibacterial Start: 09-26-2024 Start: 03-28-2024 End: 09-26-2024 take 4 tablets by mouth once as needed Amoxicillin 500 mg tablet Discontinued 2000 mg PO ONCE as needed for dental 4 March 28, 2024 1:00am September 26, 2024 12:24pm 30-60 minutes prior to dental procedure as needed; aspirin 81 mg chewable tablet (20 sources) Platelet Aggregation Inhibitor, Nonsteroidal Anti-inflammatory Drug Start: 07-20-2013 take 1 tablet by mouth once daily Start: 06-03-2006 ASPIRIN 81 MG TAB Take one(1) tablet daily. 0 06/03/2006 Active azaTHIOprine 50 mg oral tablet (11 sources) Purine Antimetabolite take 1 tablet by mouth twice daily azathioprine (IMURAN) 50 mg ORAL tablet Take 50 mg by mouth twice daily. 0 Active cetirizine hydrochloride 10 mg oral tablet (2 sources) Histamine-1 Receptor Antagonist Start: 022 Zyrtec 10 mg oral tablet Dose : 10 mg = 1 tab(s), Oral, qDay, # 30 tab(s), 0 Refill(s) Start Date: 12/04/21 Status: Ordered cholecalciferol 0.05 mg oral tablet (1 source) Vitamin D take 1 tablet by mouth once daily cholecalciferol (VITAMIN D-3) 50 mcg (2,000 unit) tablet Take 2,000 Units by mouth once daily. Active ergocalciferol 1.25 mg oral capsule (20 sources) Provitamin D2 Compound Start: 019 Start: 02-14-2019 End: 11-03-2023 take 61283 [IU] by mouth every week Ergocalciferol (Vitamin D2) Active 73505 UNIT PO EVERY WEEK February 14, 2019 12:00am Start: 07-20-2013 End: 02-14-2019 Ergocalciferol (Vitamin D2) 2,000 UNIT tablet Discontinued 1.25 mg PO JONES July 20, 2013 12:00am February 14, 2019 12:09pm ferrous sulfate 325 mg oral tablet (3 sources) Start: 01-07-2022 IRON (ferrous sulfate 325 mg) 65 mg oral tablet Dose : 325 mg = 1 tab(s), Oral, BIDM, Take with food., # 60 tab(s), 3 Refill(s) Start Date: 01/07/22 Status: Ordered furosemide 20 mg oral tablet (4 sources) Loop Diuretic Start: 12-21-2023 take 1 tablet by mouth every other day furosemide (LASIX) 20 mg tablet Take 1 tablet by mouth every other day. 5 tablet 12/21/2023 Active Start: 11-11-2023 End: 09-12-2024 take 1 tablet by mouth once daily furosemide (LASIX) 40 mg tablet Take 1 tablet by mouth once daily for 10 days. 10 tablet 11/11/2023 12/02/2023 Discontinued (Course of therapy completed) hydroxychloroquine sulfate 200 mg oral tablet (20 sources) Antimalarial, Antirheumatic Agent Start: 02-24-2024 take 1 tablet by mouth twice daily Start: 07-20-2013 End: 01-12-2024 Hydroxychloroquine 200 MG ta blet Discontinued 1 {tbl} PO TWICE A DAY July 20, 2013 12:00am January 12, 2024 11:29am lupus On Hold: Ordered Start: 07-20-2013 take 1.5 tablets by mouth once daily at mealtime Hydroxychloroquine Active 1.5 TABLET PO DAILY WITH MEALS July 19, 2013 11:00pm Start: 07-20-2013 hydroxychloroq uine 200 mg oral tablet Dose : 400 mg = 2 tab(s), Oral, qDay, # 60 tab(s), 0 Refill(s) Start Date: 01/07/22 Status: Ordered ipratropium bromide 0.042 mg/actuat metered dose nasal spray (9 sources) Anticholinergic Start: 05-11-2024 lidocaine 0.04 mg/mg medicated patch (6 sources) Antiarrhythmic, Amide Local Anesthetic Start: 11-12-2023 lidocaine (SALONPAS) 4 % patch Apply 1-2 Patches as directed once daily. APPLY TO: Chest / BACK - Remove patch after 12 hours. 20 Patch 11/12/2023 Active meloxicam 15 mg oral tablet (2 sources) Nonsteroidal Anti-inflammatory Drug Start: 12-04-2021 meloxicam 15 mg oral tablet Dose : 15 mg = 1 tab(s), Oral, qDay, # 30 tab(s), 0 Refill(s) Start Date: 12/04/21 Status: Ordered 24 hr metoprolol succinate 25 mg extended release oral tablet (20 sources) beta-Adrenergic Stacy Start: 09-13-2024 take 1 tablet by mouth once daily Start: 09-12-2024 End: 09-13-2024 take 1 tablet by mouth every twenty-four hours Metoprolol Succinate 25 mg tablet extended release 24 hr Discontinued 25 mg PO ONCE 90 4 September 12, 2024 3:41pm September 13, 2024 9:37am Start: 01-10-2024 End: 02-09-2024 take 1 tablet by mouth once daily metoprolol succinate ER (TOPROL XL) 50 mg 24 hr tablet Take 1 tablet by mouth once daily. 30 tablet 01/10/2024 02/09/2024 Active Start: 12-23-2023 End: 09-12-2024 take 1 tablet by mouth every twenty-four hours in the morning Metoprolol Succinate 50 mg tablet extended release 24 hr Discontinued 50 mg PO AT BEDTIME December 23, 2023 12:00am September 12, 2024 3:42pm 100 mg in the AM and 50 mg in the evening Start: 11-11-2023 End: 2024 Metoprolol Succinate 100 mg tablet extended release 24 hr Discontinued 100 mg PO DAILY December 23, 2023 12:59pm December 23, 2023 1:29pm bp and heart 100 mg qam, 50 mg qpm mupirocin 0.02 mg/mg topical ointment (2 sources) RNA Synthetase Inhibitor Antibacterial Start: 11-04-2023 mupirocin (BACTROBAN ) 2 % ointment Apply a small amount in each nostril using a cotton swab twice the day before surgery and once the morning of surgery. 22 g 0 11/04/2023 Active Start: 12-08-2021 mupirocin 2% t opical ointment Apply 1 trenton, Topical, BID, Bilateral intranasal application twice daily for 5 days prior to surgery &/or as many days leading up to surgery as possible due to surgical urgency/scheduling. Send to patient's preferred pharmacy., Apply to: nostril, each,... Start Date: 12/08/21 Status: Ordered mycophenolate mofetil 250 mg oral capsule (20 sources) Start: 12-04-2021 mycophenolate mofetil 250 mg oral capsule Dose : 250 mg = 1 cap(s), Oral, qDay, # 120 cap(s), 0 Refill(s) Start Date: 01/07/22 Status: Ordered Start: 05-14-2021 End: 01-12-2024 take 1 tablet by mouth once Mycophenolate Mofetil 500 mg tablet Discontinued 250 mg PO ONCE May 14, 2021 4:04pm January 12, 2024 11:30am blood counts Start: 05-14-2021 take 250 mg by mouth once Myco phenolate Mofetil Active 250 MG PO ONCE May 14, 2021 4:04pm Start: 02-14-2019 End: 05-14-2021 take 1 tablet by mouth twice daily Mycophenolate Mofetil 500 mg tablet Discontinued 500 mg PO TWICE A DAY February 14, 2019 12:08pm May 14, 2021 4:05pm Start: 07-20-2013 End: 02-14-2019 take 1 tablet by mouth once daily Mycophenolate Mofetil 500 MG tablet Discontinued 1 mg PO DAILY July 20, 2013 12:00am February 14, 2019 12:10pm Start: 07-20-2013 End: 02-14-2019 take 1 mg by mouth once daily Mycophenolate Mofetil Di scontinued 1 MG PO DAILY July 20, 2013 12:00am February 14, 2019 12:10pm microencapsulated potassium chloride 20 meq extended release oral tablet (1 source) Start: 11-12-2023 End: 11-22-2023 take 1 tablet by mouth once daily potassium chloride ER (KLOR-CON) 20 mEq tablet Take 1 tablet by mouth once daily for 10 days. 10 tablet 11/12/2023 11/22/2023 Active rosuvastatin calcium 10 mg oral tablet (20 sources) HMG-CoA Reductase Inhibitor Start: 06-03-2022 take 1 tablet by mouth once daily sulfamethoxazole 800 mg / trimethoprim 160 mg oral tablet (4 sources) Dihydrofolate Reductase Inhibitor Antibacterial, Sulfonamide Antimicrobial Start: 12-01-2023 take 2 tablets by mouth every twelve hours sulfamethoxazol e-trimethoprim (BACTRIM DS) 800-160 mg per tablet Take 2 tablets by mouth every 12 hours. 12/01/2023 Active Vitamin D3 25 mcg (1000 intl units) oral tablet (2 sources) Start: 01-07-2022 Vitamin D3 25 mcg (1000 intl units) oral tablet Dose : 25 mcg = 1 tab(s), Oral, Daily, # 30 tab(s), 0 Refill(s) Start Date: 01/07/22 Status: Ordered Vitamin D3 50 mcg (2000 intl units) oral capsule (2 sources) Start: 12-04-2021 take 1 tablet by mouth once daily Vitamin D3 50 mcg (2000 intl units) oral capsule 1 tab(s), Oral, Daily, # 30 tab(s), 0 Refill(s) Start Date: 12/04/21 Status: Ordered warfarin sodium 10 mg oral tablet (20 sources) Vitamin K Antagonist Start: 03-27-2024 take 1 tablet by mouth once daily at bedtime Start: 02-07-2024 End: 02-07-2024 take 2 tablets by mouth once daily Start: 11-11-2023 End: 02-07-2024 take 1 tablet by mouth once daily Warfarin 4 mg tablet Discontinued 4 mg PO DAILY Protocol: Adjustment Start Date: Wednesday12/06/23INR Value: 1.6INR Date: 12/03/23Recheck Date: 12/13/23 Condition: Wednesday Dose/Route: 4 mg Instructions: 1 x 4 mg tablet Condition: Wednesday Dose/Route: 6 mg Instructions: 1.5 x 4 mg tablets Condition: Wednesday Dose/Route: 4 mg Instructions: 1 x 4 mg tablet Condition: Wednesday Dose/Route: 6 mg Instructions: 1.5 x 4 mg tablets Condition: Dose/Route: 4 mg Instructions: 1 x 4 mg tablet Condition: Wednesday Dose/Route: 6 mg Instructions: 1.5 x 4 mg tablets Condition: Wednesday Dose/Route: 6 mg Instructions: 1.5 x 4 mg tablets 60 3 December 06, 2023 9:07am December 12, 2023 3:42am 4mg by mouth daily or as instructed by physician's office Please contact the information source for Protocol details. Completed/Discontinued Medications Medication Drug Class(es) Dates Sig (Normalized) Sig (Original) acetaminophen 325 mg / HYDROcodone bitartrate 5 mg oral tablet (20 sources) Opioid Agonist Start: 07-25-2013 End: 02-14-2019 Hydrocodone-Acetami nophen 1 TABLET tablet Discontinued 1 - 2 {tbl} PO EVERY 4 HOURS NEEDED as needed for Pain 30 July 25, 2013 12:00am February 14, 2019 12:10pm Start: 07-25-2013 End: 02-14-2019 take 1 tablet by mouth every four hours as needed Hydrocodone-Acetaminophen Discontinued 1 - 2 TABLET PO EVERY 4 HOURS NEEDED July 25, 2013 12:00am February 14, 2019 12:10pm amiodarone hydrochloride 200 mg oral tablet (17 sources) Antiarrhythmic Start: 12-12-2023 End: 12-23-2023 take 1 tablet by mouth once daily Amiodarone 200 mg tablet Discontinued 200 mg PO DAILY December 12, 2023 12:00am December 23, 2023 1:00pm heart Start: 11-12-2023 End: 12-17-2023 take 1 tablet by mouth twice daily amiodarone (PACERONE) 200 mg tablet Take 1 tablet by mouth two times a day for 7 days, THEN 1 tablet once daily for 28 days. Patient should start on November 12, 2023. 42 tablet 11/12/2023 Suspended cefTRIAXone 2000 mg injection (20 sources) Cephalosporin Antibacterial Start: 01-12-2024 End: 02-24-2024 Ceftriaxone 2 gram recon soln Discontinued 2 g CONT INF daily January 12, 2024 11:39am February 24, 2024 3:02pm Start: 01-12-2024 End: 01-12-2024 inject 2 g by intramuscular injection once daily Ceftriaxone 2 gram recon soln Discontinued 2 g IM daily January 12, 2024 12:00am January 12, 2024 11:40am Start: 01-10-2024 End: 01-18-2024 inject 100 mL intravenously every twenty-four hours cefTRIAXone (ROCEPHIN) 2 g in D5W 100 mL Vial-Bag Inject 100 mL intravenously every 24 hours for 8 doses. 800 mL 01/10/2024 01/18/2024 Active docusate sodium 100 mg oral capsule (4 sources) Start: 11-11-2023 End: 12-02-2023 take 1 capsule by mouth twice daily docusate sodium (COLACE) 100 mg capsule Take 1 capsule by mouth two times a day. 30 capsule 11/11/2023 12/02/2023 Discontinued (Course of therapy completed) Start: 12-22-2021 Colace 100 mg oral capsule Dose : 100 mg = 1 cap(s), Oral, BID, PRN as needed for constipation, # 20 cap(s), 1 Refill(s), Pharmacy: [facility]/pharmacy #[id number], 157.5, cm, 12/22/21 10:31:00 EDT, Height, kg, 12/22/21 10:31:00 EDT, Dosing Weight Start Date: 12/22/21 Status: Ordered 0.8 ml enoxaparin sodium 100 mg/ml prefilled syringe (20 sources) Low Molecular Weight Heparin Start: 01-12-2024 End: 03-03-2024 Enoxaparin 80 mg/0.8 mL syringe Discontinued 80 mg SC Q12H 8 4 February 07, 2024 1:00am February 24, 2024 3:03pm Start: 01-09-2024 End: 01-14-2024 inject 0.8 mL by subcutaneous injection every twelve hours enoxaparin (LOVENOX) 80 mg/0.8 mL Inject 0.8 mL subcutaneously every 12 hours for 5 days. 8 mL 01/09/2024 01/14/2024 famotidine 20 mg oral tablet (20 sources) Histamine-2 Receptor Antagonist Start: 02-14-2019 End: 03-21-2020 take 1 tablet by mouth twice daily as needed Famotidine (Acid Snuff Grinder (Famotidine)) 20 mg tablet Discontinued 20 mg PO TWICE A DAY as needed February 21, 2019 11:59am March 21, 2020 10:38am ferrous fumarate 324 mg oral tablet (20 sources) Start: 12-04-2021 take 1 tablet by mouth twice daily FERROCITE FERROCITE, 1 TAB, Oral, BID, 0 Refill(s) Start Date: 12/04/21 Status: Ordered Start: 12-04-2021 FERROCITE FERR OCITE, 1 TAB, BID, 0 Refill(s) Start Date: 12/04/21 Status: Ordered Start: 05-22-2021 End: 08-24-2024 take 1 tablet by mouth twice daily Ferrous Fumarate (Ferrocite) 324 mg (106 mg iron) tablet Discontinued 0 .ROUTE .COMPLEX 60 2 March 30, 2022 9:37am August 24, 2024 3:24pm supplement TAKE 1 TABLET BY MOUTH TWICE A DAY levETIRAcetam 1000 mg oral tablet (20 sources) Start: 01-07-2022 take 2 tablets by mouth once daily levETIRAcetam 1000 mg oral tablet TAKE 2 TABLETS BY MOUTH EVERY DAY Start Date: 01/07/22 Status: Ordered Start: 04-23-2010 End: 05-24-2024 take 1 tablet by mouth twice daily Levetiracetam 1,000 mg tablet Discontinued 1000 mg PO TWICE A DAY May 30, 2021 4:32pm June 18, 2022 4:27pm lisinopril 10 mg oral tablet (20 sources) Angiotensin Converting Enzyme Inhibitor Start: 07-20-2013 End: 03-21-2020 Lisinopril 10 MG tablet Discontinued 1 {tbl} PO DAILY July 20, 2013 12:00am March 21, 2020 10:40am Start: 02-06-2013 End: 11-03-2023 take 1 tablet by mouth once daily Lisinopril 10 mg tablet Discontinued 10 mg PO DAILY March 21, 2020 10:40am January 26, 2022 7:21pm magnesium oxide 400 mg oral tablet (6 sources) Start: 11-11-2023 End: 12-02-2023 take 1 tablet by mouth twice daily magnesium oxide (MAG-OX) 400 mg (241.3 mg magnesium) tablet Take 1 tablet by mouth two times a day for 10 days. 20 tablet 11/11/2023 12/02/2023 Discontinued (Course of therapy completed) Start: 11-11-2023 End: 12-02-2023 take 2 tablets by mouth once daily magnesium oxide (MAG-OX) 400 mg (241.3 mg magnesium) tablet Take 2 tablets by mouth once daily for 10 days. 20 tablet 11/11/2023 12/02/2023 Discontinued (Course of therapy completed) oxyCODONE hydrochloride 5 mg oral tablet (11 sources) Opioid Agonist Start: 12-12-2023 End: 01-02-2024 take 1 tablet by mouth every six hours as needed for pain Oxycodone 5 mg tablet Discontinued 5 mg PO EVERY 6 HOURS NEEDED as needed for pain December 12, 2023 12:00am January 02, 2024 1:44am Start: 11-11-2023 End: 11-18-2023 take 1 tablet by mouth every six hours as needed for pain oxyCODONE IR (ROXICODONE) 5 mg immediate release tablet Indications: Postoperative pain Take 1 tablet by mouth every 6 hours as needed (for moderate to severe surgical pain) for up to 7 days. 20 tablet 11/11/2023 11/18/2023 Active Start: 12-22-2021 End: 12-27-2021 oxyCODONE 5 mg oral tablet ( IMMEDIATE release ) Dose : 5 mg = 1 tab(s), Oral, q4h, X 5 day(s), # 28 tab(s), 0 Refill(s), 12/27/21 19:21:00 EDT, Pharmacy: [facility]/pharmacy #[id number], Post-op pain, 157.5, cm, 12/22/21 10:31:00 EDT, Height, 93.3, kg, 12/22/21 10:31:00 EDT, Dosing Weight Start Date: 12/22/21 Stop Date: 12/27/21 Status: Ordered predniSONE 20 mg oral tablet (20 sources) Start: 05-09-2021 End: 05-14-2021 take 2 tablets by mouth once daily Prednisone 20 mg tablet Discontinued 40 mg PO DAILY May 09, 2021 1:00am May 14, 2021 4:04pm Start: 05-09-2021 End: 05-14-2021 take 40 mg by mouth once daily Prednisone Discontinued 40 MG PO DAILY May 09, 2021 1:00am May 14, 2021 4:04pm topiramate 50 mg oral tablet (9 sources) Start: 05-24-2024 End: 08-17-2024 take 0.5 tablet by mouth twice daily, then take 1 tablet by mouth twice daily Topiramate 50 mg tablet Discontinued 50 mg PO TWICE A DAY 180 2 May 24, 2024 1:00am August 17, 2024 4:30pm Take 1/2 tablet orally twice daily for 1 week then 1 tablet twice daily thereafter. Problems Active Problems Problem Classification Problem Date Documented Da te Episodic/Chronic Abdominal pain (3 sources) Pain in pelvis; Translations: [Pelvic and perineal pain] Onset: 2 12-08-2021 Episodic Acute posthemorrhagic anemia (20 sources) Acute posthemorrhagic anemia; Translations: [Acute posthemorrhagic anemia] Onset: 4 11-05-2023 Episodic Administrative/social admission (20 sources) Patient encounter status; Translations: [Encounter for pre-employment examination] Onset: 4 05-29-2021 Episodic Allergic reactions (15 sources) Contact dermatitis; Translations: [Unspecified contact dermatitis, unspecified cause] Onset: 4 01-03-2024 Episodic Aortic; peripheral; and visceral artery aneurysms (20 sources) Aortic aneurysm; Translations: [Aortic aneurysm of unspecified site, without rupture] Onset: 4 11-05-2023 Chronic Bacterial infection; unspecified site (20 sources) Bacteremia; Translations: [Bacteremia] Onset: 4 01-03-2024 Episodic Cardiac and circulatory congenital anomalies (20 sources) Bicuspid aortic valve; Translations: [Congenital insufficiency of aortic valve] Onset: 4 11-03-2023 Chronic Chronic kidney disease (9 sources) Chronic kidney disease stage 2; Translations: [Chronic kidney disease, stage 2 (mild)] 12-22-2023 Chronic Coagulation and hemorrhagic disorders (20 sources) Thrombocytopenic disorder; Translations: [Thrombocytopenia, unspecified] Onset: 4 Resolved: 4 11-07-2023 Chronic Complications of surgical procedures or medical care (20 sources) Acute pulmonary insufficiency following thoracic surgery; Translations: [Acute pulmonary insufficiency following thoracic surgery] Onset: 4 11-07-2023 Episodic Coronary atherosclerosis and other heart disease (20 sources) Coronary arteriosclerosis; Translations: [Atherosclerotic heart disease of [place] coronary artery without angina pectoris] Onset: 4 11-11-2023 Chronic Deficiency and other anemia (20 sources) Pancytopenia; Translations: [Other pancytopenia] 08-14-2021 Chronic Comment on above: Pancytopenia may be related to SLE. Deficiency and other anemia (13 sources) Other pancytopenia; Translations: [Other pancytopenia] Chronic Deficiency and other anemia (20 sources) Iron deficiency anemia; Translations: [Iron deficiency anemia, unspecified] 05-21-2022 Episodic Comment on above: HGB was 13 on 024, Iron level is still low. HGB was 13.8 on Deficiency and other anemia (20 sources) Iron deficiency anemia, unspecified; Translations: [Iron deficiency anemia, unspecified] Onset: Episodic Deficiency and other anemia (4 sources) Anemia 12-08-2021 Episodic Disorders of lipid metabolism (20 sources) Hyperlipidemia; Translations: [Hyperlipidemia, unspecified] Onset: 4 11-05-2023 Chronic Epilepsy; convulsions (20 sources) Epilepsy; Translations: [Epilepsy, unspecified, not intractable, without status epilepticus] Chronic Epilepsy; convulsions (20 sources) Seizure; Translations: [Unspecified convulsions] Onset: 7 12-03-2021 Episodic Comment on above: LAST SEIZURE WAS IN THE WINTER 2021-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 anical aortic valve per Dr. Kevin Keys at [facility] Heart valve disorders (4 sources) Heart murmur 12-08-2021 Episodic Immunity disorders (15 sources) Immunosuppression; Translations: [Immunodeficiency, unspecified] Onset: 4 01-05-2024 Chronic Lymphadenitis (20 sources) Generalized enlarged lymph nodes; Translations: [Generalized enlarged lymph nodes] Episodic Comment on above: No nodes were palpat ed. Can be related to SLE. Malaise and fatigue (9 sources) Fatigue; Translations: [Chronic fatigue, unspecified] 12-22-2023 Chronic Malaise and fatigue (20 sources) Fatigue; Translations: [Other fatigue] 06-18-2022 Episodic Noninfectious gastroenteritis (9 sources) Gastroenteritis; Translations: [Noninfective gastroenteritis and colitis, unspecified] 12-24-2023 Episodic Occlusion or stenosis of precerebral arteries (1 source) Occlusion and stenosis of unspecified carotid artery; Translations: [Occlusion and stenosis of unspecified carotid artery] Onset: Chronic Open wounds of head; neck; and trunk (15 sources) Open wound of chest wall; Translations: [Unspecified open wound of unspecified front wall of thorax without penetration into thoracic cavity, initial encounter] Onset: 4 01-03-2024 Episodic Other aftercare (20 sources) Anticoagulant effect; Translations: [terminal worker (current) use of anticoagulants] Onset: 4 11-07-2023 Episodic Other aftercare (2 sources) terminal worker (current) use of anticoagulants; Translations: [Warfarin anticoagulation] Onset: 4 Episodic Other aftercare (18 sources) Long-term current use of anticoagulant; Translations: [terminal worker (current) use of anticoagulants] 11-19-2023 Episodic Other aftercare (1 source) Other fpc (current) drug therapy; Translations: [Other manager long term care (current) drug therapy] Onset: 5 Episodic Other circulatory disease (6 sources) Disorder of artery; Translations: [Disorder of arteries and arterioles, unspecified] 10-07-2023 Chronic Other circulatory disease (1 source) Disorder of arteries and arterioles, unspecified; Translations: [Disorder of artery or arteriole (HCC)] Onset: 4 Chronic Other circulatory disease (20 sources) History of endocarditis; Translations: [Personal history of other diseases of the circulatory system] 05-30-2021 Episodic Other circulatory disease (20 sources) History of cerebrovascular disease; Translations: [Personal history of other diseases of the circulatory system] 02-10-2022 Episodic Other circulatory disease (10 sources) Personal history of other diseases of the circulatory system; Translations: [Personal history of other diseases of circulatory system] Episodic Other congenital anomalies (20 sources) Congenital anomaly of skin; Translations: [Other specified congenital malformations of skin] Onset: 7 09-30-2023 Chronic Other connective tissue disease (9 sources) Swelling of left lower limb; Translations: [Other specified soft tissue disorders] 12-28-2023 Episodic Other connective tissue disease (9 sources) Swelling of right lower limb; Translations: [Other specified soft tissue disorders] 12-28-2023 Episodic Other connective tissue disease (1 source) Pain in left foot; Translations: [Pain in left foot] Onset: 5 Episodic Other female genital disorders (1 source) Disorder of fallopian tube and ovary; Translations: [Other noninflammatory disorders of ovary, fallopian tube and broad ligament] Onset: 2 Episodic Other gastrointestinal disorders (11 sources) Adult form of celiac disease; Translations: [Celiac disease] 05-26-2023 Chronic Comment on above: Mildly positive tTG on 02/03/2023. Other gastrointestinal disorders (2 sources) Celiac disease; Translations: [Celiac disease] 05-26-2023 Chronic Other gastrointestinal disorders (2 sources) Mass of ovary 12-08-2021 Episodic Other gastrointestinal disorders (9 sources) Occult blood in stools; Translations: [Other fecal abnormalities] 12-24-2023 Episodic Other infections; including parasitic (3 sources) Disorder due to infection; Translations: [Unspecified infectious disease] 01-14-2024 Episodic Other inflammatory condition of skin (5 sources) Lupus erythematosus 12-03-2021 Chronic Other inflammatory condition of skin (20 sources) Rosacea; Translations: [Rosacea, unspecified] Onset: 7 09-30-2023 Chronic Other liver diseases (1 source) Abnormal levels of other serum enzymes; Translations: [Elevated alkaline phosphatase level] Onset: 4 Episodic Other liver diseases (9 sources) Elevated liver enzymes level; Translations: [Abnormal levels of other serum enzymes] 12-24-2023 Episodic Other nervous system disorders (20 sources) Cervical root disorders, not elsewhere classified; Translations: [Cervical root lesions, not elsewhere classified] Onset: 7 11-02-2016 Chronic Other nervous system disorders (20 sources) Acute postoperative pain; Translations: [Other acute postprocedural pain] Onset: 4 11-05-2023 Episodic Other nervous system disorders (1 source) Other acute postprocedural pain; Translations: [Postoperative pain] Onset: 4 Episodic Other nutritional; endocrine; and metabolic disorders (4 sources) Body mass index 30+ - obesity 12-08-2021 Chronic Other nutritional; endocrine; and metabolic disorders (20 sources) Obese class I; Translations: [Obesity, unspecified] Onset: 4 11-05-2023 Chronic Other nutritional; endocrine; and metabolic disorders (14 sources) Obesity; Translations: [Obesity, unspecified] 05-24-2024 Chronic Other screening for suspected conditions (not mental disorders or infectious disease) (20 sources) D-dimer above reference range; Translations: [Other specified abnormal findings of blood chemistry] Onset: 4 Episodic Comment on above: Venous Doppler was n egative in May 2021. Now has swelling of R lower leg, repeat Doopler in August 2021 was negative. Abnormal D-dimers may be related to her Connective tissue disease. Other skin disorders (15 sources) Eruption; Translations: [Rash and other nonspecific skin eruption] Onset: 4 01-05-2024 Episodic Other upper respiratory disease (4 sources) Seasonal allergy 12-08-2021 Chronic Residual codes; unclassified (4 sources) Edema 12-08-2021 Episodic Comment on above: RIGHT LOWER LEG AND ANKLE Residual codes; unclassified (20 sources) Transition of care; Translations: [Other specified health status] Onset: 4 11-11-2023 Episodic Residual codes; unclassified (20 sources) Personal history of other specified conditions; Translations: [Personal history of other specified diseases] Onset: 4 11-11-2023 Episodic Rheumatoid arthritis and related disease (1 source) Inflammatory polyarthropathy; Translations: [Inflammatory polyarthropathy] Onset: 5 Chronic Septicemia (except in labor) (20 sources) Sepsis due to Gram negative bacteria ; Translations: [Gram-negative sepsis, unspecified] Onset: 4 01-03-2024 Episodic Spondylosis; intervertebral disc disorders; other back problems (20 sources) Low back pain; Translations: [Low back pain] Episodic Systemic lupus erythematosus and connective tissue disorders (20 sources) Systemic lupus erythematosus; Translations: [Systemic lupus erythematosus, unspecified] Onset: 7 07-29-2022 Chronic Unclassified (4 sources) Eye glasses, device (physical object) 12-08-2021 Unclassified (3 sources) Mild aortic valve stenosis 12-09-2021 Viral infection (4 sources) Disease caused by 2019-nCoV 12-08-2021 Comment on above: 2020 Past or Other Problems Problem Classification Problem Date Documented Date Episodic/Chronic Diabetes mellitus without complication (20 sources) Metabolic stress hyperglycemia; Translations: [Hyperglycemia, unspecified] Onset: 11-05-2023 Resolved: 11-07-2023 11-07-2023 Episodic Immunizations and screening for infectious disease (20 sources) Lupus anticoagulant disorder; Translations: [Raised antibody titer] Onset: 08-24-2024 Episodic Other circulatory disease (20 sources) Low blood pressure; Translations: [Hypotension, unspecified] Onset: 11-05-2023 Resolved: 11-06-2023 11-06-2023 Episodic Respiratory failure; insufficiency; arrest (adult) (20 sources) Ventilator finding; Translations: [Dependence on respirator [ventilator] status] Onset: 11-05-2023 Resolved: 11-06-2023 11-06-2023 Chronic Results Test Name Value Interpretation Reference Range Facility CBC W/Diff, Automatedon 11- Absolute Lymph 1.10 X10 3/uL Normal 0.83-4.51 [facility] Comment on above: Performed By: #### L 3890.6202, L100.0100, L801.1549, L501.0900, L3890.6102, L500.4050, L101.9900, L400.0001, L3890.6301, L501.6710 ####[facility] [address] [facility]. [place], [place], [phone]) Absolute Neut 3.3 X10 3/uL Normal 2.0-7.7 [facility] Comment on above: Performed By: #### L 3890.6202, L100.0100, L801.1549, L501.0900, L3890.6102, L500.4050, L101.9900, L400.0001, L3890.6301, L501.6710 ####[facility] [address] [place], [place], [phone]) Basophils/100 WBC (Bld) 0.4 % Normal 0-1 [facility] Comment on above: Performed By: #### L 3890.6202, L100.0100, L801.1549, L501.0900, L3890.6102, L500.4050, L101.9900, L400.0001, L3890.6301, L501.6710 ####[facility] [address] [place], [place], [phone]) Eosinophils/100 WBC (Bld) 2.8 % Normal 0-5 [facility] Comment on above: Performed By: #### L 3890.6202, L100.0100, L801.1549, L501.0900, L3890.6102, L500.4050, L101.9900, L400.0001, L3890.6301, L501.6710 ####[facility] [address] [place], [place], [phone]) Erythrocyte distribution width (RBC) [Ratio] 12.8 % Normal 11.6-14.6 [facility] Comment on above: Performed By: #### L 3890.6202, L100.0100, L801.1549, L501.0900, L3890.6102, L500.4050, L101.9900, L400.0001, L3890.6301, L501.6710 ####[facility] [address] [place], [place], [phone]) Hematocrit (Bld) [Volume fraction] 42.6 % Normal 37-47 [facility] Comment on above: Performed By: #### L 3890.6202, L100.0100, L801.1549, L501.0900, L3890.6102, L500.4050, L101.9900, L400.0001, L3890.6301, L501.6710 ####[facility] [address] [place], [place], [phone]) Hemoglobin (Bld) [Mass/Vol] 14.7 g/dL Normal 12.0-15.0 [facility] Comment on above: Performed By: #### L 3890.6202, L100.0100, L801.1549, L501.0900, L3890.6102, L500.4050, L101.9900, L400.0001, L3890.6301, L501.6710 ####[facility] [address] [facility]. [place], [place], [phone] IG% 0.400 Normal 0.0-0.9 [facility] Comment on above: Result Comment: IG% - Immature Granulocytes (promyelocytes, myelocytes andmetamyelocytes) > 1% indicates that a LEFT SHIFT is Present. Performed By: #### L 3890.6202, L100.0100, L801.1549, L501.0900, L3890.6102, L500.4050, L101.9900, L400.0001, L3890.6301, L501.6710 ####[facility] [address] [place], [place], [phone] Lymphocytes/100 WBC (Bld) 22.3 % Normal 19-41 [facility] Comment on above: Performed By: #### L 3890.6202, L100.0100, L801.1549, L501.0900, L3890.6102, L500.4050, L101.9900, L400.0001, L3890.6301, L501.6710 ####[facility] [address] [facility]. [place], [place], [phone] MCH (RBC) [Entitic mass] 28.9 pg Normal 27.0-32.0 [facility] Comment on above: Performed By: #### L 3890.6202, L100.0100, L801.1549, L501.0900, L3890.6102, L500.4050, L101.9900, L400.0001, L3890.6301, L501.6710 ####[facility] [address] [facility]. [place], [place], [phone] MCHC (RBC) [Mass/Vol] 34.5 g/dL Normal 32-36 [facility] Comment on above: Performed By: #### L 3890.6202, L100.0100, L801.1549, L501.0900, L3890.6102, L500.4050, L101.9900, L400.0001, L3890.6301, L501.6710 ####[facility] [address] [place], [address] MCV (RBC) [Entitic vol] 83.9 fL Normal 81-99 [facility] Comment on above: Performed By: #### L 3890.6202, L100.0100, L801.1549, L501.0900, L3890.6102, L500.4050, L101.9900, L400.0001, L3890.6301, L501.6710 ####[facility] [address] [place], [phone] Monocytes/100 WBC (Bld) 6.9 % Normal 0-10 [facility] Comment on above: Performed By: #### L 3890.6202, L100.0100, L801.1549, L501.0900, L3890.6102, L500.4050, L101.9900, L400.0001, L3890.6301, L501.6710 ####[facility] [address] [facility] [place], [address] Neutrophils/100 WBC (Bld) 67.2 % Normal 47-70 [facility] Comment on above: Performed By: #### L 3890.6202, L100.0100, L801.1549, L501.0900, L3890.6102, L500.4050, L101.9900, L400.0001, L3890.6301, L501.6710 ####[facility] [address] [facility] [place], [address] Nucleated RBC (Bld) [#/Vol] 0 10*3/uL Normal 0-5 [facility] Comment on above: Performed By: #### L 3890.6202, L100.0100, L801.1549, L501.0900, L3890.6102, L500.4050, L101.9900, L400.0001, L3890.6301, L501.6710 ####[facility] [address] [place], [address] Platelet mean volume (Bld) [Entitic vol] 9.4 fL Normal 6.2-12.0 [facility] Comment on above: Performed By: #### L 3890.6202, L100.0100, L801.1549, L501.0900, L3890.6102, L500.4050, L101.9900, L400.0001, L3890.6301, L501.6710 ####[facility] [address] [place], [address]( Platelets (Bld) [#/Vol] 191 10*3/uL Normal 150-450 [facility] Comment on above: Performed By: #### L 3890.6202, L100.0100, L801.1549, L501.0900, L3890.6102, L500.4050, L101.9900, L400.0001, L3890.6301, L501.6710 ####[facility] [address] [place], [address] RBC (Bld) [#/Vol] 5.08 10*6/uL Normal 4.2-5.4 [facility] Comment on above: Performed By: #### L 3890.6202, L100.0100, L801.1549, L501.0900, L3890.6102, L500.4050, L101.9900, L400.0001, L3890.6301, L501.6710 ####[facility] [address] [place], [address] RDW SD 38.8 fl Normal 35.1-43.9 [facility] Comment on above: Performed By: #### L 3890.6202, L100.0100, L801.1549, L501.0900, L3890.6102, L500.4050, L101.9900, L400.0001, L3890.6301, L501.6710 ####[facility] [address] [place], [address] WBC (Bld) [#/Vol] 4.9 10*3/uL Normal 4.4-11.0 [facility] Comment on above: Performed By: #### L 3890.6202, L100.0100, L801.1549, L501.0900, L3890.6102, L500.4050, L101.9900, L400.0001, L3890.6301, L501.6710 ####[facility] [address] [place], [address] CRPon 01-31-2025 C-REACTIVE PROT 5.67 mg/L High 0.0-3.0 [facility] Comment on above: Performed By: #### L 3890.6202, L100.0100, L801.1549, L501.0900, L3890.6102, L500.4050, L101.9900, L400.0001, L3890.6301, L501.6710 ####[facility] [address] [place], [address] Comprehensive Metabolic Prof ilon 01-31-2025 Albumin [Mass/Vol] 4.4 g/dL Normal 3.5-5.0 [facility] Comment on above: Performed By: #### L 3890.6202, L100.0100, L801.1549, L501.0900, L3890.6102, L500.4050, L101.9900, L400.0001, L3890.6301, L501.6710 ####[facility] [address] [place], [place], [phone]) Albumin/Globulin [Mass ratio] 1.6 {ratio} Normal 0.9-2.4 [facility] Comment on above: Performed By: #### L 3890.6202, L100.0100, L801.1549, L501.0900, L3890.6102, L500.4050, L101.9900, L400.0001, L3890.6301, L501.6710 ####[facility] [address] [place], [place], [phone] ALK PHOS 109 U/L High 35-104 [facility] Comment on above: Performed By: #### L 3890.6202, L100.0100, L801.1549, L501.0900, L3890.6102, L500.4050, L101.9900, L400.0001, L3890.6301, L501.6710 ####[facility] [address] [place], [place], [phone] ALT [Catalytic activity/Vol] 17 U/L Normal <=34 [facility] Comment on above: Performed By: #### L 3890.6202, L100.0100, L801.1549, L501.0900, L3890.6102, L500.4050, L101.9900, L400.0001, L3890.6301, L501.6710 ####[facility] [address] [place], [place], [phone] AST [Catalytic activity/Vol] 20 U/L Normal <=31 [facility] Comment on above: Performed By: #### L 3890.6202, L100.0100, L801.1549, L501.0900, L3890.6102, L500.4050, L101.9900, L400.0001, L3890.6301, L501.6710 ####[facility] [address] [place], [place], [phone] Bilirubin [Mass/Vol] 0.47 mg/dL Normal 0.00-1.30 [facility] Comment on above: Performed By: #### L 3890.6202, L100.0100, L801.1549, L501.0900, L3890.6102, L500.4050, L101.9900, L400.0001, L3890.6301, L501.6710 ####[facility] [address] [place], [address] BUN/CRE 19.7 RATIO Normal 10-20 [facility] Comment on above: Performed By: #### L 3890.6202, L100.0100, L801.1549, L501.0900, L3890.6102, L500.4050, L101.9900, L400.0001, L3890.6301, L501.6710 ####[facility] [address] [place], [place], [phone]) Calcium [Mass/Vol] 9.2 mg/dL Normal 7.6-11.0 [facility] Comment on above: Performed By: #### L 3890.6202, L100.0100, L801.1549, L501.0900, L3890.6102, L500.4050, L101.9900, L400.0001, L3890.6301, L501.6710 ####[facility] [address] [place], [place], [phone]([phone] Chloride [Moles/Vol] 104 mmol/L Normal 98-108 [facility] Comment on above: Performed By: #### L 3890.6202, L100.0100, L801.1549, L501.0900, L3890.6102, L500.4050, L101.9900, L400.0001, L3890.6301, L501.6710 ####[facility] [address] [place], [address] CO2 [Moles/Vol] 24.1 mmol/L Normal 21.0-32.0 [facility] Comment on above: Performed By: #### L 3890.6202, L100.0100, L801.1549, L501.0900, L3890.6102, L500.4050, L101.9900, L400.0001, L3890.6301, L501.6710 ####[facility] [address] [place], [place], [phone] Creatinine [Mass/Vol] 0.75 mg/dL Normal 0.70-1.20 [facility] Comment on above: Performed By: #### L 3890.6202, L100.0100, L801.1549, L501.0900, L3890.6102, L500.4050, L101.9900, L400.0001, L3890.6301, L501.6710 ####[facility] [address] [place], [place], [phone] GAP 12 Normal 5-15 [facility] Comment on above: Performed By: #### L 3890.6202, L100.0100, L801.1549, L501.0900, L3890.6102, L500.4050, L101.9900, L400.0001, L3890.6301, L501.6710 ####[facility] [address] [place], [address] GFR/1.73 sq M.predicted among non-blacks MDRD (S/P/Bld) [Vol rate/Area] 96 mL/min/{1.73_m2} Normal >60 [facility] Comment on above: Result Comment: mL/m in/1.73m2 CKD-EPI Creatinine Equation (2020) Performed By: #### L 3890.6202, L100.0100, L801.1549, L501.0900, L3890.6102, L500.4050, L101.9900, L400.0001, L3890.6301, L501.6710 ####[facility] [address] [place], [address] Globulin (S) [Mass/Vol] 2.7 g/dL Normal 2.2-4.2 [facility] Comment on above: Performed By: #### L 3890.6202, L100.0100, L801.1549, L501.0900, L3890.6102, L500.4050, L101.9900, L400.0001, L3890.6301, L501.6710 ####[facility] [address] [place], [address] Glucose [Mass/Vol] 93 mg/dL Normal 70-99 [facility] Comment on above: Performed By: #### L 3890.6202, L100.0100, L801.1549, L501.0900, L3890.6102, L500.4050, L101.9900, L400.0001, L3890.6301, L501.6710 ####[facility] [address] [place], [address] Potassium [Moles/Vol] 4.4 mmol/L Normal 3.3-5.1 [facility] Comment on above: Performed By: #### L 3890.6202, L100.0100, L801.1549, L501.0900, L3890.6102, L500.4050, L101.9900, L400.0001, L3890.6301, L501.6710 ####[facility] [address] [place], [address] Sodium [Moles/Vol] 140 mmol/L Normal 133-145 [facility] Comment on above: Performed By: #### L 3890.6202, L100.0100, L801.1549, L501.0900, L3890.6102, L500.4050, L101.9900, L400.0001, L3890.6301, L501.6710 ####[facility] [address] [place], [address] T PROT 7.1 g/dL Normal 5.9-8.4 [facility] Comment on above: Performed By: #### L 3890.6202, L100.0100, L801.1549, L501.0900, L3890.6102, L500.4050, L101.9900, L400.0001, L3890.6301, L501.6710 ####[facility] [address] [place], [address] Urea nitrogen [Mass/Vol] 15 mg/dL Normal 4-19 [facility] Comment on above: Performed By: #### L 3890.6202, L100.0100, L801.1549, L501.0900, L3890.6102, L500.4050, L101.9900, L400.0001, L3890.6301, L501.6710 ####[facility] [address] [place], [address] EXAGENon 01-31-2025 EXAGEN MAILED SPECIMEN Normal [facility] Comment on above: Performed By: #### L 3890.6202, L100.0100, L801.1549, L501.0900, L3890.6102, L500.4050, L101.9900, L400.0001, L3890.6301, L501.6710 ####[facility] [address] [place], [address] Erythrocyte Sed Rateon 01-31 SED RATE 2 mm/hr Normal 0-30 [facility] Comment on above: Performed By: #### L 3890.6202, L100.0100, L801.1549, L501.0900, L3890.6102, L500.4050, L101.9900, L400.0001, L3890.6301, L501.6710 ####[facility] [address] [place], [address] Hepatitis B Surface Antibody on 01-31-2025 HEP B Surf Ab Non-Reactive Normal [facility] Comment on above: Result Comment: <8.5 mIU/mL: Non-Reactive8.5<= x <11.5 mIU/mL: Indeterminate>=11.5 mIU/mL: Reactive Non Reactive: Inconsistent with immunity less than <10 mIU/mL Reactive: Consistent with immunity greater than or equal to 10 mIU/mL Performed By: #### L 3890.6202, L100.0100, L801.1549, L501.0900, L3890.6102, L500.4050, L101.9900, L400.0001, L3890.6301, L501.6710 ####[facility] [address] [place], [address] Hepatitis C Antibodyon 01-31 Hepatitis C Ab Non-Reactive Normal Nonreactive [facility] Comment on above: Result Comment: Reac tive: Presumptive evidence of antibodies to HCV. [facility] for supplemental testing.Non-Reactive: Antibodies to HCV were not detected; does notexclude the possibility of exposure to HCVReactive Results are presumptive evidence of antibodies toHCV. Follow CDC recommendations for supplemental testing.Order confirmation testing: HCV Quant by PCR testing -HCVPCR #[id number] Non Reactive: < 0.8 Equivocal: >/= 0.8 to < 1.0 Reactive: >/= 1.0The CDC requires that a reactive/equivocal HCV antibodyresult be sent out for confirmation. HCV Quant by PCRtesting. Performed By: #### L 3890.6202, L100.0100, L801.1549, L501.0900, L3890.6102, L500.4050, L101.9900, L400.0001, L3890.6301, L501.6710 ####[facility] [address] [place], [place], [address] L3890.6102on 01-31-2025 HEP B Surf Ag Non-Reactive Normal Nonreactive [facility] Comment on above: Result Comment: Reac tive: Presumptive evidence of HBV. Repeatedly reactivesamples must be confirmed using a neutralization test([employer] HBsAg Confirmatory Test)Non-Reactive: HBsAg not detected; does not exclude thepossibility of exposure to HBV Performed By: #### L 3890.6202, L100.0100, L801.1549, L501.0900, L3890.6102, L500.4050, L101.9900, L400.0001, L3890.6301, L501.6710 ####[facility] [address] [place], [address] Protein+Creatinine Ratio,Uri neon 01-31-2025 PROT:CRE RATIO 175 mg/g CRE Normal 0-200 [facility] Comment on above: Performed By: #### L 3890.6202, L100.0100, L801.1549, L501.0900, L3890.6102, L500.4050, L101.9900, L400.0001, L3890.6301, L501.6710 ####[facility] [address] [place], [address] Protein (U) [Mass/Vol] 17.7 mg/dL High 0.0-12.0 [facility] Comment on above: Performed By: #### L 3890.6202, L100.0100, L801.1549, L501.0900, L3890.6102, L500.4050, L101.9900, L400.0001, L3890.6301, L501.6710 ####[facility] [address] [place], [address] UR CREAT 101.00 mg/dL Normal 28.00-217.00 [facility] Comment on above: Performed By: #### L 3890.6202, L100.0100, L801.1549, L501.0900, L3890.6102, L500.4050, L101.9900, L400.0001, L3890.6301, L501.6710 ####[facility] [address] [place], [place], [phone] Urinalysis, Completeon 01-31 RBC 0-5 SEEN Normal 0-5 [facility] Comment on above: Order Comment: Urine , Random Performed By: #### L 3890.6202, L100.0100, L801.1549, L501.0900, L3890.6102, L500.4050, L101.9900, L400.0001, L3890.6301, L501.6710 ####[facility] [address] [place], [place], [phone] WBC 0-5 SEEN Normal 0-5 [facility] Comment on above: Order Comment: Urine , Random Performed By: #### L 3890.6202, L100.0100, L801.1549, L501.0900, L3890.6102, L500.4050, L101.9900, L400.0001, L3890.6301, L501.6710 ####[facility] [address] [place], [place], [phone] BACTERIA 0 SEEN Normal None Seen [facility] Comment on above: Order Comment: Urine , Random Performed By: #### L 3890.6202, L100.0100, L801.1549, L501.0900, L3890.6102, L500.4050, L101.9900, L400.0001, L3890.6301, L501.6710 ####[facility] [address] [place], [address] EPI,SQUAMOUS 0 SEEN Normal 5-10 [facility] Comment on above: Order Comment: Urine , Random Performed By: #### L 3890.6202, L100.0100, L801.1549, L501.0900, L3890.6102, L500.4050, L101.9900, L400.0001, L3890.6301, L501.6710 ####[facility] [address] [place], [address] Mucus Ql (Urine sed) 0 SEEN Normal [facility] Comment on above: Order Comment: Urine , Random Performed By: #### L 3890.6202, L100.0100, L801.1549, L501.0900, L3890.6102, L500.4050, L101.9900, L400.0001, L3890.6301, L501.6710 ####[facility] [address] [place], [address] Prothrombin Time w/INRon INR Coag (PPP) [Relative time] 3.5 {INR} Normal [facility] Comment on above: Performed By: #### L 300.3900 ####[facility] [address] [place], [address] PT Coag (PPP) [Time] 35.5 s High 11.7-14.9 [facility] Comment on above: Performed By: #### L 300.3900 ####[facility] [address] [place], [address] Foot min 3 Viewson 5 Foot min 3 Views Normal [facility] International normalized rat io (INR) calculationOrdered By: Adam Solorzano on 12-20-2024 INR Coag (Bld) [Relative time] 3.3 {INR} [facility] Prothrombin Time w/INRon INR Coag (PPP) [Relative time] 3.3 {INR} Normal [facility] Comment on above: Order Comment: Comme nts: STANDING ORDER: Fax to [phone] Performed By: #### L 300.3900 ####[facility] [address] [place], [address] Prothrombin timeOrdered By: Adam Solorzano on 12-20-2024 PT Coag (PPP) [Time] 34.6 s High 11.7-14.9 [facility] Comment on above: Order Comment: Comme nts: STANDING ORDER: Fax to [phone] Performed By: #### L 300.3900 ####[facility] [address] [place], [place], [phone] International normalized rat io (INR) calculationOrdered By: Adam Solorzano on 11-21-2024 INR Coag (Bld) [Relative time] 3.1 {INR} [facility] Prothrombin Time w/INRon INR Coag (PPP) [Relative time] 3.1 {INR} Normal [facility] Comment on above: Performed By: #### L 300.3900 ####[facility] [address] [place], [place], [phone] Prothrombin timeOrdered By: Adam Solorzano on 11-21-2024 PT Coag (PPP) [Time] 32.3 s High 11.7-14.9 [facility] Comment on above: Performed By: #### L 300.3900 ####[facility] [address] [place], [place], [phone] Echocardiogram study reportO rdered By: Adam Solorzano on 10-18-2024 Study report [facility] [address] [place] [address] Echo Complete 10/17/24 1453 MR#: [id number] Acct: [id number] Name: MARIA LUISA BROWNING Rep #:[id number] 002 : 1975 49 From: Adam Michaud Attending Dr: Dr. Adam Solrozano MD S tatus: REG CLI Ordering Dr: Adam Solorzano MD Date: Location: CVS Sex: F C Admitted: Reason For Study Reason For Study: AORTIC VALVE REPLACEMENT Procedure This was a 2D Doppler, Color Flow transthoracic echocardiogram. Exam performed in department. Left Ventricle Normal left ventricle. Left ventricular systolic function is normal. The left ventricular ejection fraction is 60 %. Stage 2 diastolic dysfunction. No regional wall motion abnormalities noted. Right Ventricle Normal RV size. Normal systolic function. Atria Normal left atrium. Normal right atrium. Mitral Valve Normal mitral valve. Tricuspid Valve Normal tricuspid valve. Mild (1+) tricuspid valve insufficiency. Pulmonary artery systolic pressure is 24 mmHg. Aortic Valve Peak aortic valve gradient 11.2 mmHg. Mean aortic valve gradient 6 mmHg. Trivialaortic valve insufficiency. Stable appearing mechanical aortic valve apparatus. Pulmonic Valve Normal pulmonic valve. Great Vessels Normal aortic root. The pulmonary artery is normal size. Inferior vena cava collapse with respiration. Pericardium/Pleural No pericardial effusion. MMode/2D Measurements & Calculations LVIDd: 4.4 cm IVSd: 1.2 cm LVOT diam: 2.0 cm LVIDs: 3.0 cm LVPWd: 1.0 cm LVOT area: 3.1 cm2 RVDd: 3.8 cm FS: 31.5 % __ asc Aorta Diam: 3.4 cm LAV(MOD-bp): 43.6 ml LVAd ap4: 25.3 cm2 LAV(MOD-bp) Indexed: 23.9 ml/m2 LVLd ap4: 7.9 cm LAV(MOD-sp2): 51.6 ml EDV(MOD-sp4): 69.9 ml LAV(MOD-sp4): 36.8 ml EDV(sp4-el): 68.6 ml LVAs ap4: 15.4 cm2 LVLs ap4: 7.1 cm ESV(MOD-sp4): 28.9 ml ESV(sp4-el): 28.4 ml EF(MOD-sp4): 58.7 % EF(sp4-el): 58.6 % _ LVAd ap2: 27.3 cm2 SV(MOD-sp4): 41.0 ml SV(MOD-sp2): 45.0 ml LVLd ap2: 8.3 cm SI(MOD-sp4): 22.5 ml/m2 SI(MOD-sp2): 24.6 ml/m2 EDV(MOD-sp2): 76.0 ml EDV(sp2-el): 76.3 ml LVAs ap2: 16.3 cm2 LVLs ap2: 7.3 cm ESV(MOD-sp2): 31.0 ml ESV(sp2-el): 30.7 ml EF(MOD-sp2): 59.2 % __ SV(sp4-el): 40.2 ml Ao sinus diam: 3.[address] Junction: 3.1 cm __ LA dimension(2D): 3.9 cm LA A4 area: 16.2 cm2 RA A4 area: 15.8 cm2 TAPSE: 1.5 cm Time Measurements MV dec time: 0.16 sec Doppler Measurements & Calculations MV E max nilam: 72.0 cm/sec Lat Peak E' Nilam: 13.4 cm/sec Med Peak E' Nilam: 7.7 cm/sec MV A max nilam: 57.2 cm/sec E/E' lat: 5.4 E/E' med: 9.3 MV E/A: 1.3 MV dec slope: 441.1 cm/sec2 Ao V2 max: 167.6 cm/sec AI max nilam: 500.8 cm/sec Ao max P.2 mmHg AI max P.3 mmHg Ao V2 mean: 115.9 cm/sec AI dec slope: 255.4 cm/sec2 Ao mean P.1 mmHg AI P1/2t: 574.3 msec Ao V2 VTI: 33.2 cm AV (velocity ratio): 0.59 BUSTER(I,D): 1.8 cm2 BUSTER(V,D): 1.7 cm2 LV V1 max: 94.1 cm/sec SV(LVOT): 60.3 ml PA V2 max: 67.2 cm/sec LV V1 max P.5 mmHg LV V1 mean P.9 mmHg LV V1 mean: 64.0 cm/sec LV V1 VTI: 19.7 cm __ PI end-d nilam: 56.5 cm/sec TR max nilam: 226.4 cm/sec TR max P.5 mmHg ECHO/Echo Complete Interpretation Summary Normal left ventricle. Left ventricular systolic function is normal. The left ventricular ejection fraction is 60 %. Stage 2 diastolic dysfunction. Stable appearing mechanical aortic valve apparatus. Mean aortic valve gradient 6 mmHg. Ordering Physician: Adam Solorzano Referring Physician: Adam Solorzano MD Performed By: Viktoria Wilcox, [facility] 10/18/24653 Date _ Adam Solorzano MD CC: Dr. Adam Solorzano MD; Dr. Bhupinder Hamlin MD ~ Date Dictated: 10/17/24 1453 Date Transcribed: 10/18/24653 Pressing Department Supervisor: Signed [facility] Work Phone: Echo Completeon 10-17-2024 Echo Complete Normal [facility] normalized rat io (INR) calculationOrdered By: Adamfelipe Solorzano on 10-17-2024 INR Coag (Bld) [Relative time] 3.2 {INR} [facility] Prothrombin Time w/INRon INR Coag (PPP) [Relative time] 3.2 {INR} Normal [facility] Comment on above: Performed By: #### L 300.3900 ####[facility] [address] [place] [phone] PT Coag (PPP) [Time] 33.5 s High 11.7-14.9 [facility] Comment on above: Performed By: #### L 300.3900 ####[facility] [address] [facility] [address] Prothrombin timeOrdered By: Adam Solorzano on 10-17-2024 PT Coag (PPP) [Time] 33.5 s High 11.7-14.9 [facility] Anti-dsDNA Abon 09-25-2024 ANTI-DNA (DS)AB 51 IU/mL Abnormal 0-9 [facility] Comment on above: Result Comment: Nega tive <5 Equivocal 5 - 9 Positive >9Performed at: [facility] [address] [place], [place] [id number] Director: Wilner Suarez PhD, Phone: [phone] Performed By: #### L 501.1105, L100.0100, L3100.5700, L501.1000, L400.0001, L3100.5800, L101.9900, L3100.5500, L501.6710, L501.4100, L501.4405 ####[facility] [address] [facility] [address] Complement C3on 09-24-2024 COMP C3 95 mg/dL Normal 82-167 [facility] Comment on above: Result Comment: Perf ormed at: [facility] [id number] [place], [place] [id number] Director: Wilner Suarez PhD, Phone: [phone] Performed By: #### L 501.1105, L100.0100, L3100.5700, L501.1000, L400.0001, L3100.5800, L101.9900, L3100.5500, L501.6710, L501.4100, L501.4405 ####[facility] [address] [place], [place], [phone] Complement C4on 09-24-2024 COMPLEMENT, C4 23 mg/dL Normal 12-38 [facility] Comment on above: Performed By: #### L 501.1105, L100.0100, L3100.5700, L501.1000, L400.0001, L3100.5800, L101.9900, L3100.5500, L501.6710, L501.4100, L501.4405 ####[facility] [address] [place], [address] Urinalysis, Completeon 09-22 RBC 0-5 SEEN Normal 0-5 [facility] Comment on above: Order Comment: CLEAN CATCH Performed By: #### L 501.1105, L100.0100, L3100.5700, L501.1000, L400.0001, L3100.5800, L101.9900, L3100.5500, L501.6710, L501.4100, L501.4405 ####[facility] [address] [place], [address] EPI,SQUAMOUS 0-5 SEEN Normal 5-10 [facility] Comment on above: Order Comment: CLEAN CATCH Performed By: #### L 501.1105, L100.0100, L3100.5700, L501.1000, L400.0001, L3100.5800, L101.9900, L3100.5500, L501.6710, L501.4100, L501.4405 ####[facility] [address] [place], [address] WBC 0-5 SEEN Normal 0-5 [facility] Comment on above: Order Comment: CLEAN CATCH Performed By: #### L 501.1105, L100.0100, L3100.5700, L501.1000, L400.0001, L3100.5800, L101.9900, L3100.5500, L501.6710, L501.4100, L501.4405 ####[facility] [address] [place], [place], [phone] AST(SGOT)on 09-21-2024 AST [Catalytic activity/Vol] 33 U/L High <=31 [facility] Comment on above: Performed By: #### L 501.1105, L100.0100, L3100.5700, L501.1000, L400.0001, L3100.5800, L101.9900, L3100.5500, L501.6710, L501.4100, L501.4405 ####[facility] [address] [place], [address] Absolute lymphocyte countOrd ered By: WANDY ROWAN on 09-21-2024 Lymphocytes Auto (Unsp spec) [#/Vol] 0.98 10*3/uL 0.83-4.51 [facility] Absolute neutrophil countOrd ered By: WANDY ROWAN on 09-21-2024 Neutrophils (Bld) [#/Vol] 3.1 10*3/uL 2.0-7.7 [facility] Alanine Aminotransferas (SGP T)on 09-21-2024 ALT [Catalytic activity/Vol] 30 U/L Normal <=34 [facility] Comment on above: Performed By: #### L 501.1105, L100.0100, L3100.5700, L501.1000, L400.0001, L3100.5800, L101.9900, L3100.5500, L501.6710, L501.4100, L501.4405 ####[facility] [address] [place], [address] Automated lymphocyte count a s percentage of total leukocytesOrdered By: WANDY ROWAN on 09-21-2024 Lymphocytes/100 WBC Auto (Unsp spec) 21.6 % 19-41 [facility] BUNon 09-21-2024 Urea nitrogen [Mass/Vol] 19 mg/dL Normal 4-19 [facility] Comment on above: Performed By: #### L 501.1105, L100.0100, L3100.5700, L501.1000, L400.0001, L3100.5800, L101.9900, L3100.5500, L501.6710, L501.4100, L501.4405 ####[facility] [address] [place], [address] Basophil percentageOrdered B y: WANDY ROWAN on 09-21-2024 Basophils/100 WBC (Bld) 0.4 % 0-1 [facility] Bilirubin Test strip Ql (U)O rdered By: WANDY ROWAN on 09-21-2024 Bilirubin Ql (U) Negative Negative [facility] CBC W/Diff, Automatedon Absolute Lymph 0.98 X10 3/uL Normal 0.83-4.51 [facility] Comment on above: Performed By: #### L 501.1105, L100.0100, L3100.5700, L501.1000, L400.0001, L3100.5800, L101.9900, L3100.5500, L501.6710, L501.4100, L501.4405 ####[facility] [address] [place], [place], [id number] Absolute Neut 3.1 X10 3/uL Normal 2.0-7.7 [facility] Comment on above: Performed By: #### L 501.1105, L100.0100, L3100.5700, L501.1000, L400.0001, L3100.5800, L101.9900, L3100.5500, L501.6710, L501.4100, L501.4405 ####[facility] [address] [place], [place], [phone]) Basophils/100 WBC (Bld) 0.4 % Normal 0-1 [facility] Comment on above: Performed By: #### L 501.1105, L100.0100, L3100.5700, L501.1000, L400.0001, L3100.5800, L101.9900, L3100.5500, L501.6710, L501.4100, L501.4405 ####[facility] [address] [place], [place], [phone]) Eosinophils/100 WBC (Bld) 1.8 % Normal 0-5 [facility] Comment on above: Performed By: #### L 501.1105, L100.0100, L3100.5700, L501.1000, L400.0001, L3100.5800, L101.9900, L3100.5500, L501.6710, L501.4100, L501.4405 ####[facility] [address] [place], [place], [phone]) Erythrocyte distribution width (RBC) [Ratio] 12.7 % Normal 11.6-14.6 [facility] Comment on above: Performed By: #### L 501.1105, L100.0100, L3100.5700, L501.1000, L400.0001, L3100.5800, L101.9900, L3100.5500, L501.6710, L501.4100, L501.4405 ####[facility] [address] [place], [place], [phone]) Hematocrit (Bld) [Volume fraction] 39.6 % Normal 37-47 [facility] Comment on above: Performed By: #### L 501.1105, L100.0100, L3100.5700, L501.1000, L400.0001, L3100.5800, L101.9900, L3100.5500, L501.6710, L501.4100, L501.4405 ####[facility] [address] [facility] [place], [address] Hemoglobin (Bld) [Mass/Vol] 13.3 g/dL Normal 12.0-15.0 [facility] Comment on above: Performed By: #### L 501.1105, L100.0100, L3100.5700, L501.1000, L400.0001, L3100.5800, L101.9900, L3100.5500, L501.6710, L501.4100, L501.4405 ####[facility] [address] [facility] [place], [address] IG% 0.400 Normal 0.0-0.9 [facility] Comment on above: Result Comment: IG% - Immature Granulocytes (promyelocytes, myelocytes andmetamyelocytes) > 1% indicates that a LEFT SHIFT is Present. Performed By: #### L 501.1105, L100.0100, L3100.5700, L501.1000, L400.0001, L3100.5800, L101.9900, L3100.5500, L501.6710, L501.4100, L501.4405 ####[facility] [address] [facility] [place], [address] Lymphocytes/100 WBC (Bld) 21.6 % Normal 19-41 [facility] Comment on above: Performed By: #### L 501.1105, L100.0100, L3100.5700, L501.1000, L400.0001, L3100.5800, L101.9900, L3100.5500, L501.6710, L501.4100, L501.4405 ####[facility] [address] [facility] [place], [address] MCH (RBC) [Entitic mass] 29.2 pg Normal 27.0-32.0 [facility] Comment on above: Performed By: #### L 501.1105, L100.0100, L3100.5700, L501.1000, L400.0001, L3100.5800, L101.9900, L3100.5500, L501.6710, L501.4100, L501.4405 ####[facility] [address] [facility] [place], [address] MCHC (RBC) [Mass/Vol] 33.6 g/dL Normal 32-36 [facility] Comment on above: Performed By: #### L 501.1105, L100.0100, L3100.5700, L501.1000, L400.0001, L3100.5800, L101.9900, L3100.5500, L501.6710, L501.4100, L501.4405 ####[facility] [address] [facility] [place], [address] MCV (RBC) [Entitic vol] 87.0 fL Normal 81-99 [facility] Comment on above: Performed By: #### L 501.1105, L100.0100, L3100.5700, L501.1000, L400.0001, L3100.5800, L101.9900, L3100.5500, L501.6710, L501.4100, L501.4405 ####[facility] [address] [facility] [place], [address] Monocytes/100 WBC (Bld) 6.8 % Normal 0-10 [facility] Comment on above: Performed By: #### L 501.1105, L100.0100, L3100.5700, L501.1000, L400.0001, L3100.5800, L101.9900, L3100.5500, L501.6710, L501.4100, L501.4405 ####[facility] [address] [facility] [place], [address] Neutrophils/100 WBC (Bld) 69.0 % Normal 47-70 [facility] Comment on above: Performed By: #### L 501.1105, L100.0100, L3100.5700, L501.1000, L400.0001, L3100.5800, L101.9900, L3100.5500, L501.6710, L501.4100, L501.4405 ####[facility] [address] [place], [address] Nucleated RBC (Bld) [#/Vol] 0 10*3/uL Normal 0-5 [facility] Comment on above: Performed By: #### L 501.1105, L100.0100, L3100.5700, L501.1000, L400.0001, L3100.5800, L101.9900, L3100.5500, L501.6710, L501.4100, L501.4405 ####[facility] [address] [place], [address] Platelet mean volume (Bld) [Entitic vol] 10.5 fL Normal 6.2-12.0 [facility] Comment on above: Performed By: #### L 501.1105, L100.0100, L3100.5700, L501.1000, L400.0001, L3100.5800, L101.9900, L3100.5500, L501.6710, L501.4100, L501.4405 ####[facility] [address] [place], [address] Platelets (Bld) [#/Vol] 156 10*3/uL Normal 150-450 [facility] Comment on above: Performed By: #### L 501.1105, L100.0100, L3100.5700, L501.1000, L400.0001, L3100.5800, L101.9900, L3100.5500, L501.6710, L501.4100, L501.4405 ####[facility] [address] [place], [address] RBC (Bld) [#/Vol] 4.55 10*6/uL Normal 4.2-5.4 [facility] Comment on above: Performed By: #### L 501.1105, L100.0100, L3100.5700, L501.1000, L400.0001, L3100.5800, L101.9900, L3100.5500, L501.6710, L501.4100, L501.4405 ####[facility] [address] [place], [place], [phone](120) RDW SD 40.4 fl Normal 35.1-43.9 [facility] Comment on above: Performed By: #### L 501.1105, L100.0100, L3100.5700, L501.1000, L400.0001, L3100.5800, L101.9900, L3100.5500, L501.6710, L501.4100, L501.4405 ####[facility] [address] [place], [place], [id number] WBC (Bld) [#/Vol] 4.5 10*3/uL Normal 4.4-11.0 [facility] Comment on above: Performed By: #### L 501.1105, L100.0100, L3100.5700, L501.1000, L400.0001, L3100.5800, L101.9900, L3100.5500, L501.6710, L501.4100, L501.4405 ####[facility] [address] [place], [place], [phone] CRPon 09-21-2024 C-REACTIVE PROT 3.74 mg/L High 0.0-3.0 [facility] Comment on above: Performed By: #### L 501.1105, L100.0100, L3100.5700, L501.1000, L400.0001, L3100.5800, L101.9900, L3100.5500, L501.6710, L501.4100, L501.4405 ####[facility] [address] [place], [place], [phone] Eosinophil percentageOrdered By: WANDY ROWAN on 09-21-2024 Eosinophils/100 WBC (Bld) 1.8 % 0-5 [facility] Erythrocyte Sed Rateon 09-21 SED RATE < 1 Normal 0-30 [facility] Comment on above: Performed By: #### L 501.1105, L100.0100, L3100.5700, L501.1000, L400.0001, L3100.5800, L101.9900, L3100.5500, L501.6710, L501.4100, L501.4405 ####[facility] [address] [place], [address] Erythrocyte distribution wid th ratioOrdered By: WANDY ROWAN on 09-21-2024 Erythrocyte distribution width (RBC) [Ratio] 12.7 % 11.6-14.6 [facility] Erythrocyte distribution wid th standard deviationOrdered By: WANDY ROWAN on 09-21-2024 Erythrocyte distribution width (RBC) [Ratio] 40.4 fl 35.1-43.9 [facility] Erythrocyte sedimentation ra teOrdered By: WANDY ROWAN on 09-21-2024 ESR (Bld) [Velocity] mm/h 0-30 [facility] Glomerular filtration rate ( GFR) estimation/1.73 sq m using serum, plasma, or whole bOrdered By: WANDY ROWAN on 09-21-2024 GFR/1.73 sq M.predicted among non-blacks MDRD (S/P/Bld) [Vol rate/Area] 82 mL/min/{1.73_m2} >60 [facility] Comment on above: mL/min/1.73m2 CKD-EP I Creatinine Equation (2020) Hematocrit Auto (Bld) [Volum e fraction]Ordered By: WANDY ROWAN on 09-21-2024 Hematocrit (Bld) [Volume fraction] 39.6 % 37-47 [facility] Hemoglobin measurementOrdere d By: WANDY ROWAN on 09-21-2024 Hemoglobin (Bld) [Mass/Vol] 13.3 g/dL 12.0-15.0 [facility] Immature granulocytes/100 WB C Auto (Bld)Ordered By: WANDY ROWAN on 09-21-2024 Immature granulocytes/100 WBC (Bld) 0.400 % 0.0-0.9 [facility] Comment on above: IG% - Immature Granu locytes (promyelocytes, myelocytes and metamyelocytes) > 1% indicates that a LEFT SHIFT is Present. Ketones Test strip Ql (U)Ord ered By: WANDY ROWAN on 09-21-2024 Ketones Ql (U) Negative Negative [facility] Laboratory - Chemistry and C hemistry - challengeOrdered By: WANDY ROWAN on 09-21-2024 AST [Catalytic activity/Vol] 33 U/L High <32 [facility] MCV (mean corpuscular volume ) determinationOrdered By: WANDY ROWAN on 09-21-2024 MCV (RBC) [Entitic vol] 87.0 fL 81-99 [facility] Mean corpuscular hemoglobin (MCH) determinationOrdered By: WANYD ROWAN on 09-21-2024 MCH (RBC) [Entitic mass] 29.2 pg 27.0-32.0 [facility] Mean corpuscular hemoglobin concentration (MCHC) determinationOrdered By: WANDY ROWAN on 09-21-2024 MCHC (RBC) [Mass/Vol] 33.6 g/dL 32-36 [facility] Mean platelet volume determi nationOrdered By: WANDY ROWAN on 09-21-2024 Platelet mean volume (Bld) [Entitic vol] 10.5 fL 6.2-12.0 [facility] Microscopic analysis of urin e for red blood cells (RBC)Ordered By: WANDY ROWAN on 09-21-2024 Microscopic analysis of urine for red blood cells (RBC) 0-5 SEEN /hpf 0-5 [facility] Monocyte percentageOrdered B y: WANDY ROWAN on 09-21-2024 Monocytes/100 WBC (Bld) 6.8 % 0-10 [facility] Mucus LM Ql (Urine sed)Order ed By: WANDY ROWAN on 09-21-2024 Mucus Ql (Urine sed) 0 SEEN /hpf [facility] Neutrophil percentageOrdered By: WANDY ROWAN on 09-21-2024 Neutrophils/100 WBC (Bld) 69.0 % 47-70 [facility] Nitrite Test strip Ql (U)Ord ered By: WANDY ROWAN on 09-21-2024 Nitrite Ql (U) Negative Negative [facility] Nucleated red blood cell per centageOrdered By: WANDY ROWAN on 09-21-2024 Nucleated RBC/100 WBC (Bld) [Ratio] 0 % 0-5 [facility] Platelet countOrdered By: RA LEIGH ANN ROWAN on 09-21-2024 Platelets (Bld) [#/Vol] 156 10*3/uL 150-450 [facility] Protein Test strip Ql (U)Ord ered By: WANDY ROWAN on 09-21-2024 Protein Ql (U) Negative Negative [facility] RBC Auto (Bld) [#/Vol]Ordere d By: WANDY ROWAN on 09-21-2024 RBC (Bld) [#/Vol] 4.55 10*6/uL 4.2-5.4 [facility] Serum Creatinine AND GFRon 0 09-21-2024 Creatinine [Mass/Vol] 0.86 mg/dL Normal 0.70-1.20 [facility] Comment on above: Performed By: #### L 501.1105, L100.0100, L3100.5700, L501.1000, L400.0001, L3100.5800, L101.9900, L3100.5500, L501.6710, L501.4100, L501.4405 ####[facility] [address] [place], [address] GFR/1.73 sq M.predicted among non-blacks MDRD (S/P/Bld) [Vol rate/Area] 82 mL/min/{1.73_m2} Normal >60 [facility] Comment on above: Result Comment: mL/m in/1.73m2 CKD-EPI Creatinine Equation (2020) Performed By: #### L 501.1105, L100.0100, L3100.5700, L501.1000, L400.0001, L3100.5800, L101.9900, L3100.5500, L501.6710, L501.4100, L501.4405 ####[facility] [address] [place], [address] Serum DNA double strand anti body assay (units/volume)Ordered By: WANDY ROWAN on 09-21-2024 DNA double strand Ab Qn (S) 51 [IU]/mL High 0-9 [facility] Comment on above: Negative <5 Equivoca l 5 - 9 Positive >9Performed at: [facility] [place] [id number] Director: Wilner Suarez PhD, Phone: [phone] Serum creatinine measurement (mass/volume)Ordered By: WANDY ROWAN on 09-21-2024 Creatinine [Mass/Vol] 0.86 mg/dL 0.70-1.20 [facility] Serum or plasma C reactive p rotein measurement (mass/volume)Ordered By: WANDY ROWAN on 09-21-2024 CRP [Mass/Vol] 3.74 mg/L High 0.0-3.0 [facility] Serum or plasma alanine angelo otransferase (ALT) measurementOrdered By: WANDY ROWAN on 09-21-2024 ALT [Catalytic activity/Vol] 30 U/L <35 [facility] Serum or plasma complement C 4 measurement (mass/volume)Ordered By: WANDY ROWAN on 09-21-2024 Complement C4 [Mass/Vol] 23 mg/dL 12-38 [facility] Serum or plasma urea nitroge n measurement (mass/volume)Ordered By: WANDY ROWAN on 09-21-2024 Urea nitrogen [Mass/Vol] 19 mg/dL 4-19 [facility] Squamous epithelial cells de tection in urine sediment by light microscopyOrdered By: WANDY ROWAN on 09-21-2024 Epithelial cells.squamous LM Ql (Urine sed) 0-5 SEEN /hpf 5-10 [facility] Urinalysis, Completeon 09-21 BACTERIA 0 SEEN Normal None Seen [facility] Comment on above: Order Comment: CLEAN CATCH Performed By: #### L 501.1105, L100.0100, L3100.5700, L501.1000, L400.0001, L3100.5800, L101.9900, L3100.5500, L501.6710, L501.4100, L501.4405 ####[facility] [address] [place], [place], [id number] Mucus Ql (Urine sed) 0 SEEN Normal [facility] Comment on above: Order Comment: CLEAN CATCH Performed By: #### L 501.1105, L100.0100, L3100.5700, L501.1000, L400.0001, L3100.5800, L101.9900, L3100.5500, L501.6710, L501.4100, L501.4405 ####[facility] [address] [place], [place], [phone] Urine clarityOrdered By: RACHEL ROWAN on 09-21-2024 Clarity (U) Clear Clear [facility] Urine color determinationOrd ered By: WANDY ROWAN on 09-21-2024 Color (U) Yellow Yellow [facility] Urine glucose detectionOrder ed By: WANDY ROWAN on 09-21-2024 Glucose Ql (U) Normal mg/dl Normal [facility] Urine leukocyte esterase det ection by dipstickOrdered By: WANDY ROWAN on 09-21-2024 Leukocyte esterase Test strip Ql (U) Negative Negative [facility] Urine pHOrdered By: WANDY MEDINA on 09-21-2024 pH (U) 6.0 [pH] 5.0 - 8.0 [facility] Urine sediment bacteria coun t by microscopy (number/high power field)Ordered By: WANDY ROWAN on 09-21-2024 Bacteria LM.HPF (Urine sed) [#/Area] 0 /[HPF] None Seen [facility] Urine specific gravity measu rementOrdered By: WANDY ROWAN on 09-21-2024 Specific gravity (U) [Rel density] 1.015 1.002-1.030 [facility] Urine urobilinogen measureme ntOrdered By: WANDY ROWAN on 09-21-2024 Urobilinogen Ql (U) Normal mg/dl Normal [facility] White blood cell (WBC) count Ordered By: WANDY ROWAN on 09-21-2024 WBC (Bld) [#/Vol] 4.5 10*3/uL 4.4-11.0 [facility] White blood cell countOrdere d By: WANDY ROWAN on 09-21-2024 White blood cell count 0-5 SEEN /hpf 0-5 [facility] [employer] normalized rat io (INR) calculationOrdered By: Adam Solorzano on 09-19-2024 INR Coag (Bld) [Relative time] 3.5 {INR} [facility] Prothrombin Time w/INRon INR Coag (PPP) [Relative time] 3.5 {INR} Normal [facility] Comment on above: Performed By: #### L 300.3900 ####[facility] [address] [place], [address] PT Coag (PPP) [Time] 35.8 s High 11.7-14.9 [facility] Comment on above: Performed By: #### L 300.3900 ####[facility] [address] [place], [address] Prothrombin timeOrdered By: Adam Solorzano on 09-19-2024 PT Coag (PPP) [Time] 35.8 s High 11.7-14.9 [facility] Cardiology Visit Reporton Cardiology Visit Report Normal [facility] L501.5101on 08-24-2024 GGTP 17 IU/L Normal 0-60 [facility] Comment on above: Result Comment: Perf ormed at: [facility] - [facility] [address] [id number] Director: Wilner Suarez PhD, Phone: [phone] Performed By: #### L 100.0100, L500.4050, L501.6710, L101.9900, L501.5101, L503.6405 ####[facility] [address] [place], [place], [id number] Oncology Visit Reporton Oncology Visit Report Normal [facility] Absolute lymphocyte countOrd ered By: Alex Sralfonso on 08-23-2024 Lymphocytes Auto (Unsp spec) [#/Vol] 0.93 10*3/uL 0.83-4.51 [facility] Absolute neutrophil countOrd ered By: Alex Julio Cesar on 08-23-2024 Neutrophils (Bld) [#/Vol] 3.0 10*3/uL 2.0-7.7 [facility] Anion gap in Serum or Plasma Ordered By: Alex Julio Cesar on 08-23-2024 Anion gap [Moles/Vol] 11 mmol/L 5-15 [facility] Automated lymphocyte count a s percentage of total leukocytesOrdered By: Alex Julio Cesar on 08-23-2024 Lymphocytes/100 WBC Auto (Unsp spec) 21.1 % 19-41 [facility] BUN/creatinine ratioOrdered By: Alex Harrell on 08-23-2024 Urea nitrogen/Creatinine [Mass ratio] 21.5 mg/mg High 10-20 [facility] Comment on above: Previous reported re sult: 21.1 RATIOEdited by: AUTOINS on 08/23/24:1018 AMENDED REPORT 08/23/24 1018 BUN/CRE previously reported as: 21.1 H RATIO Basophil percentageOrdered B y: Alex Julio Cesar on 08-23-2024 Basophils/100 WBC (Bld) 0.5 % 0-1 [facility] Bilirubin, totalOrdered By: Alex Harrell on 08-23-2024 Bilirubin [Mass/Vol] 0.70 mg/dL 0.00-1.30 [facility] Comment on above: Previous reported re sult: 0.69 mg/dLEdited by: AUTOINS on 08/23/24:1018 AMENDED REPORT 08/23/24 1018 T BILI previously reported as: 0.69 mg/dL CBC W/Diff, Automatedon Absolute Lymph 0.93 X10 3/uL Normal 0.83-4.51 [facility] Comment on above: Performed By: #### L 100.0100, L500.4050, L501.6710, L101.9900, L501.5101, L503.6030 ####[facility] [address] [place], [address] Absolute Neut 3.0 X10 3/uL Normal 2.0-7.7 [facility] Comment on above: Performed By: #### L 100.0100, L500.4050, L501.6710, L101.9900, L501.5101, L503.6030 ####[facility] [address] [place], [address] Basophils/100 WBC (Bld) 0.5 % Normal 0-1 [facility] Comment on above: Performed By: #### L 100.0100, L500.4050, L501.6710, L101.9900, L501.5101, L503.6030 ####[facility] [address] [place], [address] Eosinophils/100 WBC (Bld) 1.8 % Normal 0-5 [facility] Comment on above: Performed By: #### L 100.0100, L500.4050, L501.6710, L101.9900, L501.5101, L503.6030 ####[facility] [address] [place], [address] Erythrocyte distribution width (RBC) [Ratio] 13.5 % Normal 11.6-14.6 [facility] Comment on above: Performed By: #### L 100.0100, L500.4050, L501.6710, L101.9900, L501.5101, L503.6030 ####[facility] [address] [place], [address] Hematocrit (Bld) [Volume fraction] 40.1 % Normal 37-47 [facility] Comment on above: Performed By: #### L 100.0100, L500.4050, L501.6710, L101.9900, L501.5101, L503.6030 ####[facility] [address] [place], [address] Hemoglobin (Bld) [Mass/Vol] 13.8 g/dL Normal 12.0-15.0 [facility] Comment on above: Performed By: #### L 100.0100, L500.4050, L501.6710, L101.9900, L501.5101, L503.6030 ####[facility] [address] [place], [address] IG% 0.500 Normal 0.0-0.9 [facility] Comment on above: Result Comment: IG% - Immature Granulocytes (promyelocytes, myelocytes andmetamyelocytes) > 1% indicates that a LEFT SHIFT is Present. Performed By: #### L 100.0100, L500.4050, L501.6710, L101.9900, L501.5101, L503.6030 ####[facility] [address] [place], [address] Lymphocytes/100 WBC (Bld) 21.1 % Normal 19-41 [facility] Comment on above: Performed By: #### L 100.0100, L500.4050, L501.6710, L101.9900, L501.5101, L503.6030 ####[facility] [address] [place], [address] MCH (RBC) [Entitic mass] 29.4 pg Normal 27.0-32.0 [facility] Comment on above: Performed By: #### L 100.0100, L500.4050, L501.6710, L101.9900, L501.5101, L503.6030 ####[facility] [address] [place], [address] MCHC (RBC) [Mass/Vol] 34.4 g/dL Normal 32-36 [facility] Comment on above: Performed By: #### L 100.0100, L500.4050, L501.6710, L101.9900, L501.5101, L503.6030 ####[facility] [address] [place], [address] MCV (RBC) [Entitic vol] 85.3 fL Normal 81-99 [facility] Comment on above: Performed By: #### L 100.0100, L500.4050, L501.6710, L101.9900, L501.5101, L503.6030 ####[facility] [address] [place], [address] Monocytes/100 WBC (Bld) 8.6 % Normal 0-10 [facility] Comment on above: Performed By: #### L 100.0100, L500.4050, L501.6710, L101.9900, L501.5101, L503.6030 ####[facility] [address] [place], [address] Neutrophils/100 WBC (Bld) 67.5 % Normal 47-70 [facility] Comment on above: Performed By: #### L 100.0100, L500.4050, L501.6710, L101.9900, L501.5101, L503.6030 ####[facility] [address] [place], [address] Nucleated RBC (Bld) [#/Vol] 0 10*3/uL Normal 0-5 [facility] Comment on above: Performed By: #### L 100.0100, L500.4050, L501.6710, L101.9900, L501.5101, L503.6030 ####[facility] [address] [place], [address] Platelet mean volume (Bld) [Entitic vol] 9.8 fL Normal 6.2-12.0 [facility] Comment on above: Performed By: #### L 100.0100, L500.4050, L501.6710, L101.9900, L501.5101, L503.6030 ####[facility] [address] [place], [address] Platelets (Bld) [#/Vol] 149 10*3/uL Low 150-450 [facility] Comment on above: Performed By: #### L 100.0100, L500.4050, L501.6710, L101.9900, L501.5101, L503.6030 ####[facility] [address] [place], [address] RBC (Bld) [#/Vol] 4.70 10*6/uL Normal 4.2-5.4 [facility] Comment on above: Performed By: #### L 100.0100, L500.4050, L501.6710, L101.9900, L501.5101, L503.6030 ####[facility] [address] [place], [address] RDW SD 41.9 fl Normal 35.1-43.9 [facility] Comment on above: Performed By: #### L 100.0100, L500.4050, L501.6710, L101.9900, L501.5101, L503.6030 ####[facility] [address] [place], [address] WBC (Bld) [#/Vol] 4.4 10*3/uL Normal 4.4-11.0 [facility] Comment on above: Performed By: #### L 100.0100, L500.4050, L501.6710, L101.9900, L501.5101, L503.6030 ####[facility] [address] [place], [address] CRPon 08-23-2024 C-REACTIVE PROT 3.40 mg/L High 0.0-3.0 [facility] Comment on above: Performed By: #### L 100.0100, L500.4050, L501.6710, L101.9900, L501.5101, L503.6030 ####[facility] [address] [place], [place], [id number] Carbon dioxide, total [Moles /volume] in Central venous bloodOrdered By: Alex Harrell on 08-23-2024 CO2 [Moles/Vol] 20.9 mmol/L Low 21.0-32.0 [facility] Comment on above: Previous reported re sult: 21.6 mmol/LEdited by: PHOEBE on 08/23/24:1018 AMENDED REPORT 08/23/24 1018 CO2 previously reported as: 21.6 mmol/L Chloride assayOrdered By: Destini Harrell on 08-23-2024 Chloride [Moles/Vol] 106 mmol/L 98-108 [facility] Comprehensive Metabolic Prof ilon 08-23-2024 Albumin [Mass/Vol] 4.3 g/dL Normal 3.5-5.0 [facility] Comment on above: Result Comment: AMENDED REPORT 08/23/24 1018 ALB previously reported as: 4.4 g/dL Performed By: #### L 100.0100, L500.4050, L501.6710, L101.9900, L501.5101, L503.6030 ####[facility] [address] [place], [place], [id number] Albumin/Globulin [Mass ratio] 1.7 {ratio} Normal 0.9-2.4 [facility] Comment on above: Result Comment: AMENDED REPORT 08/23/24 1018 A/G previously reported as: 1.7 RATIO Performed By: #### L 100.0100, L500.4050, L501.6710, L101.9900, L501.5101, L503.6030 ####[facility] [address] [place], [place], [id number] ALK PHOS 103 U/L Normal 35-104 [facility] Comment on above: Result Comment: AMENDED REPORT 08/23/24 1018 ALK P previously reported as: 105 H U/L Performed By: #### L 100.0100, L500.4050, L501.6710, L101.9900, L501.5101, L503.6030 ####[facility] [address] [place], [place], [phone] ALT [Catalytic activity/Vol] 24 U/L Normal <=34 [facility] Comment on above: Result Comment: AMENDED REPORT 08/23/24 1018 ALT previously reported as: 25 U/L Performed By: #### L 100.0100, L500.4050, L501.6710, L101.9900, L501.5101, L503.6030 ####[facility] [address] [place], [place], [phone] AST [Catalytic activity/Vol] 31 U/L Normal <=31 [facility] Comment on above: Result Comment: AMENDED REPORT 08/23/24 1018 AST previously reported as: 32 U/L Performed By: #### L 100.0100, L500.4050, L501.6710, L101.9900, L501.5101, L503.6030 ####[facility] [address] [place], [place], [id number] Bilirubin [Mass/Vol] 0.70 mg/dL Normal 0.00-1.30 [facility] Comment on above: Result Comment: AMENDED REPORT 08/23/24 1018 T BILI previously reported as: 0.69 mg/dL Performed By: #### L 100.0100, L500.4050, L501.6710, L101.9900, L501.5101, L503.6030 ####[facility] [address] [place], [address] BUN/CRE 21.5 RATIO High 10-20 [facility] Comment on above: Result Comment: AMENDED REPORT 08/23/241017 BUN/CRE previously reported as: 21.1 H RATIO Performed By: #### L 100.0100, L500.4050, L501.6710, L101.9900, L501.5101, L503.6030 ####[facility] [address] [place], [address] Calcium [Mass/Vol] 9.1 mg/dL Normal 7.6-11.0 [facility] Comment on above: Result Comment: AMENDED REPORT 08/23/241017 CA previously reported as: 9.3 mg/dL Performed By: #### L 100.0100, L500.4050, L501.6710, L101.9900, L501.5101, L503.6030 ####[facility] [address] [place], [place], [id number] CO2 [Moles/Vol] 20.9 mmol/L Low 21.0-32.0 [facility] Comment on above: Result Comment: AMENDED REPORT 08/23/241017 CO2 previously reported as: 21.6 mmol/L Performed By: #### L 100.0100, L500.4050, L501.6710, L101.9900, L501.5101, L503.6030 ####[facility] [address] [place], [address] Globulin (S) [Mass/Vol] 2.6 g/dL Normal 2.2-4.2 [facility] Comment on above: Result Comment: AMENDED REPORT 08/23/241017 GLOB previously reported as: 2.6 g/dL Performed By: #### L 100.0100, L500.4050, L501.6710, L101.9900, L501.5101, L503.6030 ####[facility] [address] [place], [address] Glucose [Mass/Vol] 89 mg/dL Normal 70-99 [facility] Comment on above: Result Comment: AMENDED REPORT 08/23/248 GLU previously reported as: 95 mg/dL Performed By: #### L 100.0100, L500.4050, L501.6710, L101.9900, L501.5101, L503.6030 ####[facility] [address] [place], [address] Potassium [Moles/Vol] 4.1 mmol/L Normal 3.3-5.1 [facility] Comment on above: Result Comment: AMENDED REPORT 08/23/248 K previously reported as: 4.0 mmol/L Performed By: #### L 100.0100, L500.4050, L501.6710, L101.9900, L501.5101, L503.6030 ####[facility] [address] [place], [address] T PROT 6.9 g/dL Normal 5.9-8.4 [facility] Comment on above: Result Comment: AMENDED REPORT 08/23/248 T PROT previously reported as: 7.0 g/dL Performed By: #### L 100.0100, L500.4050, L501.6710, L101.9900, L501.5101, L503.6030 ####[facility] [address] [place], [address] Eosinophil percentageOrdered By: Alex Harrell on 08-23-2024 Eosinophils/100 WBC (Bld) 1.8 % 0-5 [facility] Erythrocyte Sed Rateon 08-23 SED RATE < 1 Normal 0-30 [facility] Comment on above: Performed By: #### L 100.0100, L500.4050, L501.6710, L101.9900, L501.5101, L503.6030 ####[facility] [address] [place], [place], [address] Erythrocyte distribution wid th ratioOrdered By: Alex Harrell on 08-23-2024 Erythrocyte distribution width (RBC) [Ratio] 13.5 % 11.6-14.6 [facility] Erythrocyte distribution wid th standard deviationOrdered By: Alex Harrell on 08-23-2024 Erythrocyte distribution width (RBC) [Ratio] 41.9 fl 35.1-43.9 [facility] Erythrocyte sedimentation ra teOrdered By: Alex Harrell on 08-23-2024 ESR (Bld) [Velocity] mm/h 0-30 [facility] Ferritinon 08-23-2024 Ferritin [Mass/Vol] 1184 ng/mL High 22-378 [facility] Comment on above: Performed By: #### L 503.6550, L504.261 ####[facility] [address] [place], [place], [id number] Gamma glutamyl transferase ( GGT) measurementOrdered By: Alex Harrell on 08-23-2024 Amylase [Catalytic activity/Vol] 17 U/L 0-60 [facility] Comment on above: Performed at: [place] [id number] Director: Wilner Suarez PhD, Phone: [phone] Glomerular filtration rate ( GFR) estimation/1.73 sq m using serum, plasma, or whole bOrdered By: Alex Harrell on 08-23-2024 GFR/1.73 sq M.predicted among non-blacks MDRD (S/P/Bld) [Vol rate/Area] 73 mL/min/{1.73_m2} >60 [facility] Comment on above: mL/min/1.73m2 CKD-EP I Creatinine Equation (2020) Hematocrit Auto (Bld) [Volum e fraction]Ordered By: Alex Harrell on 08-23-2024 Hematocrit (Bld) [Volume fraction] 40.1 % 37-47 [facility] Hemoglobin measurementOrdere d By: Alex Harrell on 08-23-2024 Hemoglobin (Bld) [Mass/Vol] 13.8 g/dL 12.0-15.0 [facility] Immature granulocytes/100 WB C Auto (Bld)Ordered By: Alex Harrell on 08-23-2024 Immature granulocytes/100 WBC (Bld) 0.500 % 0.0-0.9 [facility] Comment on above: IG% - Immature Granu locytes (promyelocytes, myelocytes and metamyelocytes) > 1% indicates that a LEFT SHIFT is Present. Iron measurement (mass/mass) Ordered By: Alex Harrell on 08-23-2024 Iron (Unsp spec) [Mass/Mass] 72 ug/dL 50-170 [facility] Iron+Iron Binding Capacityon 08-23-2024 Iron [Mass/Vol] 72 ug/dL Normal 50-170 [facility] Comment on above: Performed By: #### L 100.0100, L500.4050, L501.6710, L101.9900, L501.5101, L503.6030 ####[facility] [address] [place], [address] UIBC 140 ug/dL Low 228-428 [facility] Comment on above: Performed By: #### L 100.0100, L500.4050, L501.6710, L101.9900, L501.5101, L503.6030 ####[facility] [address] [place], [address] LDHon 08-23-2024 LDH 289 U/L High 84-246 [facility] Comment on above: Order Comment: 1 Performed By: #### L 503.6550, L504.2610 ####[facility] [address] [place], [address] Laboratory - Chemistry and C hemistry - challengeOrdered By: Alex Harrell on 08-23-2024 AST [Catalytic activity/Vol] 31 U/L <32 [facility] Comment on above: Previous reported re sult: 32 U/LEdited by: AUTOINS on 08/23/24:1018 AMENDED REPORT 08/23/24 1018 AST previously reported as: 32 U/L Lactate dehydrogenase (LDH) measurementOrdered By: Alex Harrell on 08-23-2024 LDH [Catalytic activity/Vol] 289 U/L High 84-246 [facility] MCV (mean corpuscular volume ) determinationOrdered By: Alex Harrell on 08-23-2024 MCV (RBC) [Entitic vol] 85.3 fL 81-99 [facility] Mean corpuscular hemoglobin (MCH) determinationOrdered By: Alex Harrell on 08-23-2024 MCH (RBC) [Entitic mass] 29.4 pg 27.0-32.0 [facility] Mean corpuscular hemoglobin concentration (MCHC) determinationOrdered By: Alex Harrell on 08-23-2024 MCHC (RBC) [Mass/Vol] 34.4 g/dL 32-36 [facility] Mean platelet volume determi nationOrdered By: Alex Harrell on 08-23-2024 Platelet mean volume (Bld) [Entitic vol] 9.8 fL 6.2-12.0 [facility] Monocyte percentageOrdered B y: Alex Harrell on 08-23-2024 Monocytes/100 WBC (Bld) 8.6 % 0-10 [facility] Neutrophil percentageOrdered By: Alex Harrell on 08-23-2024 Neutrophils/100 WBC (Bld) 67.5 % 47-70 [facility] No Panel InformationOrdered By: Alex Harrell on 08-23-2024 Unsaturated Iron Binding Capacity 140 ug/dL Low 228-428 [facility] Nucleated red blood cell per centageOrdered By: Alex Harrell on 08-23-2024 Nucleated RBC/100 WBC (Bld) [Ratio] 0 % 0-5 [facility] Platelet countOrdered By: Destini Harrell on 08-23-2024 Platelets (Bld) [#/Vol] 149 10*3/uL Low 150-450 [facility] Potassium measurement (mass/ volume)Ordered By: Alex Harrell on 08-23-2024 Potassium (Unsp spec) [Mass/Vol] 4.1 mmol/L 3.3-5.1 [facility] Comment on above: Previous reported re sult: 4.0 mmol/LEdited by: AUTOINTayo on 08/23/24:1018 AMENDED REPORT 08/23/24 1018 K previously reported as: 4.0 mmol/L RBC Auto (Bld) [#/Vol]Ordere d By: Alex Harrell on 08-23-2024 RBC (Bld) [#/Vol] 4.70 10*6/uL 4.2-5.4 [facility] Serum creatinine measurement (mass/volume)Ordered By: Alex Harrell on 08-23-2024 Creatinine [Mass/Vol] 0.95 mg/dL 0.70-1.20 [facility] Serum globulin measurementOr dered By: Alex Harrell on 08-23-2024 Globulin (S) [Mass/Vol] 2.6 g/dL 2.2-4.2 [facility] Comment on above: Previous reported re sult: 2.6 g/dLEdited by: PHOEBE on 08/23/24:1018 AMENDED REPORT 08/23/24 1018 GLOB previously reported as: 2.6 g/dL Serum glucose measurement (m ass/volume)Ordered By: Alex Harrell on 08-23-2024 Glucose [Mass/Vol] 89 mg/dL 70-99 [facility] Comment on above: Previous reported re sult: 95 mg/dLEdited by: PHOEBE on 08/23/24:1018 AMENDED REPORT 08/23/24 1018 GLU previously reported as: 95 mg/dL Serum or plasma C reactive p rotein measurement (mass/volume)Ordered By: Alex Harrell on 08-23-2024 CRP [Mass/Vol] 3.40 mg/L High 0.0-3.0 [facility] Serum or plasma alanine angelo otransferase (ALT) measurementOrdered By: Alex Harrell on 08-23-2024 ALT [Catalytic activity/Vol] 24 U/L <35 [facility] Comment on above: Previous reported re sult: 25 U/LEdited by: PHOEBE on 08/23/24:1018 AMENDED REPORT 08/23/24 1018 ALT previously reported as: 25 U/L Serum or plasma albumin maria g urement (mass/volume)Ordered By: Alex Harrell on 06-04-2025 Albumin [Mass/Vol] 4.3 g/dL 3.5-5.0 [facility] Comment on above: Previous reported re sult: 4.4 g/dLEdited by: PHOEBE on 08/23/24:1018 AMENDED REPORT 08/23/24 1018 ALB previously reported as: 4.4 g/dL Serum or plasma albumin/glob ulin mass ratioOrdered By: Alex Harrell on 08-23-2024 Albumin/Globulin [Mass ratio] 1.7 {ratio} 0.9-2.4 [facility] Comment on above: Previous reported re sult: 1.7 RATIOEdited by: PHOEBE on 08/23/24:1018 AMENDED REPORT 08/23/24 1018 A/G previously reported as: 1.7 RATIO Serum or plasma alkaline love sphatase measurementOrdered By: Alex Harrell on 08-23-2024 ALP [Catalytic activity/Vol] 103 U/L 35-104 [facility] Comment on above: Previous reported re sult: 105 U/LEdited by: PHOEBE on 08/23/24:1018 AMENDED REPORT 08/23/24 1018 ALK P previously reported as: 105 H U/L Serum or plasma calcium maria g urement (mass/volume)Ordered By: Alex Harrell on 08-23-2024 Calcium [Mass/Vol] 9.1 mg/dL 7.6-11.0 [facility] Comment on above: Previous reported re sult: 9.3 mg/dLEdited by: PHOEBE on 08/23/24:1018 AMENDED REPORT 08/23/24 1018 CA previously reported as: 9.3 mg/dL Serum or plasma ferritin lo surement (mass/volume)Ordered By: Alex Harrell on 08-23-2024 Ferritin [Mass/Vol] 1184 ng/mL High 22-378 [facility] Serum or plasma iron saturat ion measurement (mass fraction)Ordered By: Alex Harrell on 08-23-2024 Iron saturation [Mass fraction] 34.0 % 13-59 [facility] Serum or plasma urea nitroge n measurement (mass/volume)Ordered By: Alex Harrell on 08-23-2024 Urea nitrogen [Mass/Vol] 20 mg/dL High 4-19 [facility] Sodium levelOrdered By: Chris Harrell on 08-23-2024 Sodium [Moles/Vol] 138 mmol/L 133-145 [facility] Total proteinOrdered By: Daniel Harrell on 08-23-2024 Protein [Mass/Vol] 6.9 g/dL 5.9-8.4 [facility] Comment on above: Previous reported re sult: 7.0 g/dLEdited by: PHOEBE on 08/23/24:1018 AMENDED REPORT 08/23/24 1018 T PROT previously reported as: 7.0 g/dL White blood cell (WBC) count Ordered By: Alex Harrell on 08-23-2024 WBC (Bld) [#/Vol] 4.4 10*3/uL 4.4-11.0 [facility] International normalized rat io (INR) calculationOrdered By: Morriston Jeanine on 08-16-2024 INR Coag (Bld) [Relative time] 2.9 {INR} [facility] Prothrombin Time w/INRon INR Coag (PPP) [Relative time] 2.9 {INR} Normal [facility] Comment on above: Performed By: #### L 300.3900 ####[facility] [address] [place], [address] PT Coag (PPP) [Time] 30.7 s High 11.7-14.9 [facility] Comment on above: Performed By: #### L 300.3900 ####[facility] [address] [place], [address] Prothrombin timeOrdered By: Adam Jeanine on 08-16-2024 PT Coag (PPP) [Time] 30.7 s High 11.7-14.9 [facility] Prothrombin Time w/INRon INR Coag (PPP) [Relative time] 2.4 {INR} Normal [facility] Comment on above: Order Comment: PER P T-JUST THIS ORDER TODAY Performed By: #### L 300.3900 ####[facility] [address] [place], [address] PT Coag (PPP) [Time] 26.7 s High 11.7-14.9 [facility] Comment on above: Order Comment: PER P T-JUST THIS ORDER TODAY Performed By: #### L 300.3900 ####[facility] [address] [place], [address] International normalized rat io (INR) calculationOrdered By: Seferino Pink on 07-04-2024 INR Coag (Bld) [Relative time] 3.0 {INR} [facility] Prothrombin Time w/INRon INR Coag (PPP) [Relative time] 3.0 {INR} Normal [facility] Comment on above: Performed By: #### L 300.3900 ####[facility] [address] [place], [address] PT Coag (PPP) [Time] 31.5 s High 11.7-14.9 [facility] Comment on above: Performed By: #### L 300.3900 ####[facility] [address] [place], [address] Prothrombin timeOrdered By: Seferino Pink on 07-04-2024 PT Coag (PPP) [Time] 31.5 s High 11.7-14.9 [facility] International normalized rat io (INR) calculationOrdered By: Adam Solorzano on 06-15-2024 INR Coag (Bld) [Relative time] 2.9 {INR} [facility] Prothrombin Time w/INRon INR Coag (PPP) [Relative time] 2.9 {INR} Normal [facility] Comment on above: Performed By: #### L 300.3900 ####[facility] [address] [place], [address] PT Coag (PPP) [Time] 31.4 s High 11.7-14.9 [facility] Comment on above: Performed By: #### L 300.3900 ####[facility] [address] [place], [place], [address] Prothrombin timeOrdered By: Adam Solorzano on 06-15-2024 PT Coag (PPP) [Time] 31.4 s High 11.7-14.9 [facility] KEPPRA (LEVETIRACETAM)on KEPPRA TNP Normal . [facility] Comment on above: Result Comment: Test not performed. Insufficient specimen to perform orcomplete analysis.CONTACTED MORIAH Reyes AT YOUR FACILITY ON 06-09-2024 Performed By: #### L 503.5510, L3310.0000 ####[facility] [address] [place], [place], [id number] Anti-dsDNA Abon 06-07-2024 ANTI-DNA (DS)AB 19 IU/mL Abnormal 0-9 [facility] Comment on above: Result Comment: Nega tive <5 Equivocal 5 - 9 Positive >9Performed at: [facility] [address] [place], [place] [id number] Director: Wilner Suarez PhD, Phone: [phone] Performed By: #### L 3100.5500, L101.9900, L501.4100, L501.1105, L100.0100, L300.3900, L3100.5800, L501.6710, L400.0001, L501.4405, L3100.5700, L501.1000 ####[facility] [address] [place], [place], [id number] Complement C3on 06-07-2024 COMP C3 103 mg/dL Normal 82-167 [facility] Comment on above: Result Comment: Perf ormed at: [facility] [place], [place] [id number] Director: Wilner Suarez PhD, Phone: [phone] Performed By: #### L 3100.5500, L101.9900, L501.4100, L501.1105, L100.0100, L300.3900, L3100.5800, L501.6710, L400.0001, L501.4405, L3100.5700, L501.1000 ####[facility] [address] [place], [address] Complement C4on 06-07-2024 COMPLEMENT, C4 23 mg/dL Normal 12-38 [facility] Comment on above: Performed By: #### L 3100.5500, L101.9900, L501.4100, L501.1105, L100.0100, L300.3900, L3100.5800, L501.6710, L400.0001, L501.4405, L3100.5700, L501.1000 ####[facility] [address] [place], [address] Prothrombin Time w/INRon INR Coag (PPP) [Relative time] 1.8 {INR} Normal [facility] Comment on above: Performed By: #### L 300.3900 ####[facility] [address] [place], [address] PT Coag (PPP) [Time] 21.0 s High 11.7-14.9 [facility] Comment on above: Performed By: #### L 300.3900 ####[facility] [address] [place], [address] AST(SGOT)on 06-05-2024 AST [Catalytic activity/Vol] 31 U/L Normal <=31 [facility] Comment on above: Performed By: #### L 3100.5500, L101.9900, L501.4100, L501.1105, L100.0100, L300.3900, L3100.5800, L501.6710, L400.0001, L501.4405, L3100.5700, L501.1000 ####[facility] [address] [place], [place], [address] Absolute lymphocyte countOrd ered By: Adam Jeanine on 06-05-2024 Lymphocytes Auto (Unsp spec) [#/Vol] 1.15 10*3/uL 0.83-4.51 [facility] Absolute neutrophil countOrd ered By: Morriston Jeanine on 06-05-2024 Neutrophils (Bld) [#/Vol] 3.9 10*3/uL 2.0-7.7 [facility] Alanine Aminotransferas (SGP T)on 06-05-2024 ALT [Catalytic activity/Vol] 32 U/L Normal <=34 [facility] Comment on above: Performed By: #### L 3100.5500, L101.9900, L501.4100, L501.1105, L100.0100, L300.3900, L3100.5800, L501.6710, L400.0001, L501.4405, L3100.5700, L501.1000 ####[facility] [address] [place], [address] Automated lymphocyte count a s percentage of total leukocytesOrdered By: Morriston Jeanine on 06-05-2024 Lymphocytes/100 WBC Auto (Unsp spec) 20.4 % 19-41 [facility] BUNon 06-05-2024 Urea nitrogen [Mass/Vol] 18 mg/dL Normal 4-19 [facility] Comment on above: Performed By: #### L 3100.5500, L101.9900, L501.4100, L501.1105, L100.0100, L300.3900, L3100.5800, L501.6710, L400.0001, L501.4405, L3100.5700, L501.1000 ####[facility] [address] [place], [place], [address] Basophil percentageOrdered B y: Adam Jeanine on 06-05-2024 Basophils/100 WBC (Bld) 0.9 % 0-1 [facility] Bilirubin Test strip Ql (U)O rdered By: Adam Solorzano on 06-05-2024 Bilirubin Ql (U) Negative Negative [facility] CBC W/Diff, Automatedon 05-20 Absolute Lymph 1.15 X10 3/uL Normal 0.83-4.51 [facility] Comment on above: Performed By: #### L 3100.5500, L101.9900, L501.4100, L501.1105, L100.0100, L300.3900, L3100.5800, L501.6710, L400.0001, L501.4405, L3100.5700, L501.1000 ####[facility] [address] [place], [address] Absolute Neut 3.9 X10 3/uL Normal 2.0-7.7 [facility] Comment on above: Performed By: #### L 3100.5500, L101.9900, L501.4100, L501.1105, L100.0100, L300.3900, L3100.5800, L501.6710, L400.0001, L501.4405, L3100.5700, L501.1000 ####[facility] [address] [place], [address] Basophils/100 WBC (Bld) 0.9 % Normal 0-1 [facility] Comment on above: Performed By: #### L 3100.5500, L101.9900, L501.4100, L501.1105, L100.0100, L300.3900, L3100.5800, L501.6710, L400.0001, L501.4405, L3100.5700, L501.1000 ####[facility] [address] [place], [address] Eosinophils/100 WBC (Bld) 1.9 % Normal 0-5 [facility] Comment on above: Performed By: #### L 3100.5500, L101.9900, L501.4100, L501.1105, L100.0100, L300.3900, L3100.5800, L501.6710, L400.0001, L501.4405, L3100.5700, L501.1000 ####[facility] [address] [place], [place], [address] Erythrocyte distribution width (RBC) [Ratio] 13.4 % Normal 11.6-14.6 [facility] Comment on above: Performed By: #### L 3100.5500, L101.9900, L501.4100, L501.1105, L100.0100, L300.3900, L3100.5800, L501.6710, L400.0001, L501.4405, L3100.5700, L501.1000 ####[facility] [address] [place], [address] Hematocrit (Bld) [Volume fraction] 40.1 % Normal 37-47 [facility] Comment on above: Performed By: #### L 3100.5500, L101.9900, L501.4100, L501.1105, L100.0100, L300.3900, L3100.5800, L501.6710, L400.0001, L501.4405, L3100.5700, L501.1000 ####[facility] [address] [place], [address] Hemoglobin (Bld) [Mass/Vol] 13.2 g/dL Normal 12.0-15.0 [facility] Comment on above: Performed By: #### L 3100.5500, L101.9900, L501.4100, L501.1105, L100.0100, L300.3900, L3100.5800, L501.6710, L400.0001, L501.4405, L3100.5700, L501.1000 ####[facility] [address] [place], [address](691) IG% 0.700 Normal 0.0-0.9 [facility] Comment on above: Result Comment: IG% - Immature Granulocytes (promyelocytes, myelocytes andmetamyelocytes) > 1% indicates that a LEFT SHIFT is Present. Performed By: #### L 3100.5500, L101.9900, L501.4100, L501.1105, L100.0100, L300.3900, L3100.5800, L501.6710, L400.0001, L501.4405, L3100.5700, L501.1000 ####[facility] [address] [place], [address] Lymphocytes/100 WBC (Bld) 20.4 % Normal 19-41 [facility] Comment on above: Performed By: #### L 3100.5500, L101.9900, L501.4100, L501.1105, L100.0100, L300.3900, L3100.5800, L501.6710, L400.0001, L501.4405, L3100.5700, L501.1000 ####[facility] [address] [place], [address] MCH (RBC) [Entitic mass] 28.3 pg Normal 27.0-32.0 [facility] Comment on above: Performed By: #### L 3100.5500, L101.9900, L501.4100, L501.1105, L100.0100, L300.3900, L3100.5800, L501.6710, L400.0001, L501.4405, L3100.5700, L501.1000 ####[facility] [address] [place], [address] MCHC (RBC) [Mass/Vol] 32.9 g/dL Normal 32-36 [facility] Comment on above: Performed By: #### L 3100.5500, L101.9900, L501.4100, L501.1105, L100.0100, L300.3900, L3100.5800, L501.6710, L400.0001, L501.4405, L3100.5700, L501.1000 ####[facility] [address] [place], [address] MCV (RBC) [Entitic vol] 85.9 fL Normal 81-99 [facility] Comment on above: Performed By: #### L 3100.5500, L101.9900, L501.4100, L501.1105, L100.0100, L300.3900, L3100.5800, L501.6710, L400.0001, L501.4405, L3100.5700, L501.1000 ####[facility] [address] [place], [address] Monocytes/100 WBC (Bld) 7.8 % Normal 0-10 [facility] Comment on above: Performed By: #### L 3100.5500, L101.9900, L501.4100, L501.1105, L100.0100, L300.3900, L3100.5800, L501.6710, L400.0001, L501.4405, L3100.5700, L501.1000 ####[facility] [address] [place], [address] Neutrophils/100 WBC (Bld) 68.3 % Normal 47-70 [facility] Comment on above: Performed By: #### L 3100.5500, L101.9900, L501.4100, L501.1105, L100.0100, L300.3900, L3100.5800, L501.6710, L400.0001, L501.4405, L3100.5700, L501.1000 ####[facility] [address] [place], [address] Nucleated RBC (Bld) [#/Vol] 0 10*3/uL Normal 0-5 [facility] Comment on above: Performed By: #### L 3100.5500, L101.9900, L501.4100, L501.1105, L100.0100, L300.3900, L3100.5800, L501.6710, L400.0001, L501.4405, L3100.5700, L501.1000 ####[facility] [address] [place], [place], [phone](208) Platelet mean volume (Bld) [Entitic vol] 10.0 fL Normal 6.2-12.0 [facility] Comment on above: Performed By: #### L 3100.5500, L101.9900, L501.4100, L501.1105, L100.0100, L300.3900, L3100.5800, L501.6710, L400.0001, L501.4405, L3100.5700, L501.1000 ####[facility] [address] [place], [place], [phone](882) Platelets (Bld) [#/Vol] 221 10*3/uL Normal 150-450 [facility] Comment on above: Performed By: #### L 3100.5500, L101.9900, L501.4100, L501.1105, L100.0100, L300.3900, L3100.5800, L501.6710, L400.0001, L501.4405, L3100.5700, L501.1000 ####[facility] [address] [place], [place], [phone]75) RBC (Bld) [#/Vol] 4.67 10*6/uL Normal 4.2-5.4 [facility] Comment on above: Performed By: #### L 3100.5500, L101.9900, L501.4100, L501.1105, L100.0100, L300.3900, L3100.5800, L501.6710, L400.0001, L501.4405, L3100.5700, L501.1000 ####[facility] [address] [place], [address] RDW SD 42.1 fl Normal 35.1-43.9 [facility] Comment on above: Performed By: #### L 3100.5500, L101.9900, L501.4100, L501.1105, L100.0100, L300.3900, L3100.5800, L501.6710, L400.0001, L501.4405, L3100.5700, L501.1000 ####[facility] [address] [place], [place], [address] WBC (Bld) [#/Vol] 5.7 10*3/uL Normal 4.4-11.0 [facility] Comment on above: Performed By: #### L 3100.5500, L101.9900, L501.4100, L501.1105, L100.0100, L300.3900, L3100.5800, L501.6710, L400.0001, L501.4405, L3100.5700, L501.1000 ####[facility] [address] [place], [place], [phone] CRPon 06-05-2024 C-REACTIVE PROT < 3.00 Normal 0.0-3.0 [facility] Comment on above: Performed By: #### L 3100.5500, L101.9900, L501.4100, L501.1105, L100.0100, L300.3900, L3100.5800, L501.6710, L400.0001, L501.4405, L3100.5700, L501.1000 ####[facility] [address] [place], [address] CRP [Mass/Vol]Ordered By: Cy ril Jeanine on 06-05-2024 C-Reactive Protein Extended Range < 3.00 mg/L 0.0-3.0 [facility] Complement C3 assayOrdered B y: Adam Jeanine on 06-05-2024 Complement C3 103 mg/dL 82-167 [facility] Comment on above: Performed at: - [facility] [id number] [place], [place] [id number] Director: Wilner Suarez PhD, Phone: [phone] Complement C4 [Mass/Vol]Orde red By: Morriston Jeanine on 06-05-2024 Complement C4 23 mg/dL 12-38 [facility] DNA double strand Ab Qn (S)O rdered By: Morriston Jeanine on 06-05-2024 Anti-Double Strand DNA Antibody 19 IU/mL High 0-9 [facility] Comment on above: Negative <5 Equivoca l 5 - 9 Positive >9Performed at: [facility] [facility] - [facility] [address] [id number] Director: Wilner Suarez PhD, Phone: [phone] Eosinophil percentageOrdered By: Adam Jeanine on 06-05-2024 Eosinophils/100 WBC (Bld) 1.9 % 0-5 [facility] Epithelial cells.squamous LM Ql (Urine sed)Ordered By: Morriston Jeanine on 06-05-2024 Epithelial cells.squamous LM.HPF (Urine sed) [#/Area] 0 /[HPF] 5-10 [facility] Erythrocyte Sed Rateon 06-05 SED RATE < 1 Normal 0-30 [facility] Comment on above: Performed By: #### L 3100.5500, L101.9900, L501.4100, L501.1105, L100.0100, L300.3900, L3100.5800, L501.6710, L400.0001, L501.4405, L3100.5700, L501.1000 ####[facility] [address] [place], [place], [id number] Erythrocyte distribution wid th ratioOrdered By: Adam Jeanine on 06-05-2024 Erythrocyte distribution width (RBC) [Ratio] 13.4 % 11.6-14.6 [facility] Erythrocyte distribution wid th standard deviationOrdered By: Morriston Jeanine on 06-05-2024 Erythrocyte distribution width (RBC) [Entitic vol] 42.1 fL 35.1-43.9 [facility] [facility] Erythrocyte distribution width (RBC) [Ratio] 42.1 fl 35.1-43.9 [facility] Erythrocyte sedimentation ra teOrdered By: Adam Solorzano on 06-05-2024 ESR (Bld) [Velocity] mm/h 0-30 [facility] GFR/1.73 sq M.predicted andreina g non-blacks MDRD (S/P/Bld) [Vol rate/Area]Ordered By: Adam Solorzano on 06-05-2024 Estimated GFR (MDRD) Non-Af Amer 81 >60 [facility] Comment on above: mL/min/1.73m2 CKD-EP I Creatinine Equation (2020) Glomerular filtration rate ( GFR) estimation/1.73 sq m using serum, plasma, or whole bOrdered By: Adam Solorzano on 06-05-2024 GFR/1.73 sq M.predicted among non-blacks MDRD (S/P/Bld) [Vol rate/Area] 81 mL/min/{1.73_m2} >60 [facility] Comment on above: mL/min/1.73m2 CKD-EP I Creatinine Equation (2020) Glucose Ql (U)Ordered By: Oliver Solorzano on 06-05-2024 Urine Glucose (UA) Normal mg/dl Normal [facility] Hematocrit Auto (Bld) [Volum e fraction]Ordered By: Adam Solorzano on 06-05-2024 Hematocrit (Bld) [Volume fraction] 40.1 % 37-47 [facility] Hemoglobin measurementOrdere d By: Adam Solorzano on 06-05-2024 Hemoglobin (Bld) [Mass/Vol] 13.2 g/dL 12.0-15.0 [facility] Immature granulocytes/100 WB C Auto (Bld)Ordered By: Adam Solorzano on 06-05-2024 Immature granulocytes/100 WBC (Bld) 0.700 % 0.0-0.9 [facility] Comment on above: IG% - Immature Granu locytes (promyelocytes, myelocytes and metamyelocytes) > 1% indicates that a LEFT SHIFT is Present. Ketones Test strip Ql (U)Ord ered By: Adam Solorzano on 06-05-2024 Ketones Ql (U) Negative Negative [facility] Laboratory - Chemistry and C hemistry - challengeOrdered By: Morriston Jeanine on 06-05-2024 AST [Catalytic activity/Vol] 31 U/L <32 [facility] Lymphocytes Auto (Unsp spec) [#/Vol]Ordered By: Adam Jeanine on 06-05-2024 Lymphocytes (Bld) [#/Vol] 1.15 10*3/uL 0.83-4.51 [facility] Lymphocytes/100 WBC Auto (Un sp spec)Ordered By: Morriston Jeanine on 06-05-2024 Lymphocytes/100 WBC (Bld) 20.4 % 19-41 [facility] MCV (mean corpuscular volume ) determinationOrdered By: Morriston Jeanine on 06-05-2024 MCV (RBC) [Entitic vol] 85.9 fL 81-99 [facility] Mean corpuscular hemoglobin (MCH) determinationOrdered By: Adam Jeanine on 06-05-2024 MCH (RBC) [Entitic mass] 28.3 pg 27.0-32.0 [facility] Mean corpuscular hemoglobin concentration (MCHC) determinationOrdered By: Morriston Jeanine on 06-05-2024 MCHC (RBC) [Mass/Vol] 32.9 g/dL 32-36 [facility] Mean platelet volume determi nationOrdered By: Morriston Jeanine on 06-05-2024 Platelet mean volume (Bld) [Entitic vol] 10.0 fL 6.2-12.0 [facility] Microscopic analysis of urin e for red blood cells (RBC)Ordered By: Adam Solorzano on 06-05-2024 Microscopic analysis of urine for red blood cells (RBC) 0 SEEN /hpf 0-5 [facility] Urine RBC 0 SEEN /hpf 0-5 [facility] Monocyte percentageOrdered B y: Adam Jeanine on 06-05-2024 Monocytes/100 WBC (Bld) 7.8 % 0-10 [facility] Mucus LM Ql (Urine sed)Order ed By: Adam Solorzano on 06-05-2024 Mucus Ql (Urine sed) 0 SEEN /hpf [facility] Neutrophil percentageOrdered By: Morriston Jeanine on 06-05-2024 Neutrophils/100 WBC (Bld) 68.3 % 47-70 [facility] Nitrite Test strip Ql (U)Ord ered By: Morriston Jeanine on 06-05-2024 Nitrite Ql (U) Negative Negative [facility] Nucleated red blood cell per centageOrdered By: Morriston Jeanine on 06-05-2024 Nucleated RBC/100 WBC (Bld) [Ratio] 0 % 0-5 [facility] Platelet countOrdered By: Cy ril Jeanine on 06-05-2024 Platelets (Bld) [#/Vol] 221 10*3/uL 150-450 [facility] Protein Test strip Ql (U)Ord ered By: Morriston Jeanine on 06-05-2024 Protein Ql (U) Negative Negative [facility] Prothrombin Time w/INRon INR Coag (PPP) [Relative time] 1.7 {INR} Normal [facility] Comment on above: Performed By: #### L 3100.5500, L101.9900, L501.4100, L501.1105, L100.0100, L300.3900, L3100.5800, L501.6710, L400.0001, L501.4405, L3100.5700, L501.1000 ####[facility] [address] [place], [place], [id number] PT Coag (PPP) [Time] 20.0 s High 11.7-14.9 [facility] Comment on above: Performed By: #### L 3100.5500, L101.9900, L501.4100, L501.1105, L100.0100, L300.3900, L3100.5800, L501.6710, L400.0001, L501.4405, L3100.5700, L501.1000 ####[facility] [address] [place], [address] RBC Auto (Bld) [#/Vol]Ordere d By: Morriston Jeanine on 06-05-2024 RBC (Bld) [#/Vol] 4.67 10*6/uL 4.2-5.4 [facility] Serum Creatinine AND GFRon 0 06-05-2024 Creatinine [Mass/Vol] 0.87 mg/dL Normal 0.70-1.20 [facility] Comment on above: Performed By: #### L 3100.5500, L101.9900, L501.4100, L501.1105, L100.0100, L300.3900, L3100.5800, L501.6710, L400.0001, L501.4405, L3100.5700, L501.1000 ####[facility] [address] [place], [place], [id number] GFR/1.73 sq M.predicted among non-blacks MDRD (S/P/Bld) [Vol rate/Area] 81 mL/min/{1.73_m2} Normal >60 [facility] Comment on above: Result Comment: mL/m in/1.73m2 CKD-EPI Creatinine Equation (2020) Performed By: #### L 3100.5500, L101.9900, L501.4100, L501.1105, L100.0100, L300.3900, L3100.5800, L501.6710, L400.0001, L501.4405, L3100.5700, L501.1000 ####[facility] [address] [place], [address] Serum DNA double strand anti body assay (units/volume)Ordered By: Adam Solorzano on 06-05-2024 DNA double strand Ab Qn (S) 19 [IU]/mL High 0-9 [facility] Comment on above: Negative <5 Equivoca l 5 - 9 Positive >9Performed at: - [facility] [id number] Director: Wilner Suarez PhD, Phone: [phone] Serum creatinine measurement (mass/volume)Ordered By: Adam Solorzano on 06-05-2024 Creatinine [Mass/Vol] 0.87 mg/dL 0.70-1.20 [facility] Serum or plasma C reactive p rotein measurement (mass/volume)Ordered By: [facility] on 06-05-2024 CRP [Mass/Vol] mg/L 0.0-3.0 [facility] Serum or plasma alanine angelo otransferase (ALT) measurementOrdered By: Morriston [facility] on 06-05-2024 ALT [Catalytic activity/Vol] 32 U/L <35 [facility] Serum or plasma complement C 4 measurement (mass/volume)Ordered By: Adam [facility] on 06-05-2024 Complement C4 [Mass/Vol] 23 mg/dL 12-38 [facility] Serum or plasma urea nitroge n measurement (mass/volume)Ordered By: [facility] on 06-05-2024 Urea nitrogen [Mass/Vol] 18 mg/dL 4-19 [facility] Squamous epithelial cells de tection in urine sediment by light microscopyOrdered By: [facility] on 06-05-2024 Epithelial cells.squamous LM Ql (Urine sed) 0 SEEN /hpf 5-10 [facility] Urinalysis, Completeon 06-05 RBC 0 SEEN Normal 0-5 [facility] Comment on above: Order Comment: Urine , Random Performed By: #### L 3100.5500, L101.9900, L501.4100, L501.1105, L100.0100, L300.3900, L3100.5800, L501.6710, L400.0001, L501.4405, L3100.5700, L501.1000 ####[facility] [address] [place], [place], [phone] BACTERIA 0 SEEN Normal None Seen [facility] Comment on above: Order Comment: Urine , Random Performed By: #### L 3100.5500, L101.9900, L501.4100, L501.1105, L100.0100, L300.3900, L3100.5800, L501.6710, L400.0001, L501.4405, L3100.5700, L501.1000 ####[facility] [address] [place], [address] EPI,SQUAMOUS 0 SEEN Normal 5-10 [facility] Comment on above: Order Comment: Urine , Random Performed By: #### L 3100.5500, L101.9900, L501.4100, L501.1105, L100.0100, L300.3900, L3100.5800, L501.6710, L400.0001, L501.4405, L3100.5700, L501.1000 ####[facility] [address] [place], [place], [phone] Mucus Ql (Urine sed) 0 SEEN Normal [facility] Comment on above: Order Comment: Urine , Random Performed By: #### L 3100.5500, L101.9900, L501.4100, L501.1105, L100.0100, L300.3900, L3100.5800, L501.6710, L400.0001, L501.4405, L3100.5700, L501.1000 ####[facility] [address] [place], [place], [phone] WBC 0 SEEN Normal 0-5 [facility] Comment on above: Order Comment: Urine , Random Performed By: #### L 3100.5500, L101.9900, L501.4100, L501.1105, L100.0100, L300.3900, L3100.5800, L501.6710, L400.0001, L501.4405, L3100.5700, L501.1000 ####[facility] [address] [place], [place], [phone] Urine blood detectionOrdered By: Adam Solorzano on 06-05-2024 Urine Occult Blood Negative Negative [facility] Urine clarityOrdered By: Chayo Solorzano on 06-05-2024 Clarity (U) Clear Clear [facility] Urine color determinationOrd ered By: Adam Solorzano on 06-05-2024 Color (U) Straw Yellow [facility] Urine glucose detectionOrder ed By: Adam Solorzano on 06-05-2024 Glucose Ql (U) Normal mg/dl Normal [facility] Urine leukocyte esterase det ection by dipstickOrdered By: Adam Jeanine on 06-05-2024 Leukocyte esterase Test strip Ql (U) Negative Negative [facility] Urine pHOrdered By: Adam Of cole on 06-05-2024 pH (U) 6.5 [pH] 5.0 - 8.0 [facility] Urine sediment bacteria coun t by microscopy (number/high power field)Ordered By: Morristonfelipe Solorzano on 06-05-2024 Bacteria LM.HPF (Urine sed) [#/Area] 0 /[HPF] None Seen [facility] Urine specific gravity measu rementOrdered By: Adam Jeanine on 06-05-2024 Specific gravity (U) [Rel density] 1.010 1.002-1.030 [facility] Urine urobilinogen measureme ntOrdered By: Morriston Jeanine on 06-05-2024 Urobilinogen Ql (U) Normal mg/dl Normal [facility] Urobilinogen Ql (U)Ordered B y: Adam Jeanine on 06-05-2024 Urine Urobilinogen Normal mg/dl Normal [facility] White blood cell (WBC) count Ordered By: Morriston Jeanine on 06-05-2024 WBC (Bld) [#/Vol] 5.7 10*3/uL 4.4-11.0 [facility] White blood cell countOrdere d By: Morriston Jeanine on 06-05-2024 Urine WBC 0 SEEN /hpf 0-5 [facility] White blood cell count 0 SEEN /hpf 0-5 [facility] Ammoniaon 06-03-2024 Ammonia (P) [Moles/Vol] 17.8 umol/L Normal 11-51 [facility] Comment on above: Performed By: #### L 503.5510, L3310.0000 ####[facility] [address] [place], [address] LevetiracetamOrdered By: Jarad Dawson on 06-03-2024 Levetiracetam TNP [facility] Comment on above: Test not performedTe st not performed. Insufficient specimen to perform orcomplete analysis.CONTACTED MORIAH Reyes AT YOUR FACILITY ON 06-09-2024 Levetiracetam (Keppra) Level TNP [facility] Comment on above: Test not performedTe st not performed. Insufficient specimen to perform orcomplete analysis.CONTACTED MORIAH Reyes AT YOUR FACILITY ON 06-09-2024 Prothrombin Time w/INRon INR Coag (PPP) [Relative time] 4.6 {INR} Invalid Interpretation Code [facility] Comment on above: Result Comment: CRIT ICAL VALUE CALLED TO DR. PINK06/03/24 1020 Sona Bertrand.RESULTS READ BACK BY . Performed By: #### L 300.3900 ####[facility] [address] [place], [place], [phone] PT Coag (PPP) [Time] 44.4 s High 11.7-14.9 [facility] Comment on above: Performed By: #### L 300.3900 ####[facility] [address] [place], [place], [phone] Venous blood ammonia measure mentOrdered By: Deejay aDwson on 06-03-2024 Ammonia (P) [Moles/Vol] 17.8 umol/L 11-51 [facility] Neurology Visit Reporton Neurology Visit Report Normal [facility] Cardiology Visit Reporton Cardiology Visit Report Normal [facility] Albumin to globulin ratioOrd ered By: Gab Lockett on 05-10-2024 Albumin/Globulin [Mass ratio] 1.1 {ratio} 0.9-2.4 [facility] Bilirubin, totalOrdered By: Gab Lockett on 05-10-2024 Bilirubin [Mass/Vol] 0.70 mg/dL 0.20-1.00 [facility] Comment on above: For patients on eltr ombopag therapy, use of Dimension [place] TBIL is not recommended. Blood urea nitrogen (BUN)/cr eatinine ratioOrdered By: Gab Lockett on 05-10-2024 Urea nitrogen/Creatinine [Mass ratio] 22.0 mg/mg High 10-20 [facility] CBC-Complete Blood Cnt No Di ffon 05-10-2024 Erythrocyte distribution width (RBC) [Ratio] 14.0 % Normal 11.6-14.6 [facility] Comment on above: Order Comment: Order Date: 05/10/24Order Info: [id number] - CBC Performed By: #### L 100.0500 ####[facility] [address] [place], [address] Hematocrit (Bld) [Volume fraction] 46.8 % Normal 37-47 [facility] Comment on above: Order Comment: Order Date: 05/10/24Order Info: [id number] - CBC Performed By: #### L 100.0500 ####[facility] [address] [place], [address] Hemoglobin (Bld) [Mass/Vol] 15.3 g/dL High 12.0-15.0 [facility] Comment on above: Order Comment: Order Date: 05/10/24Order Info: [id number] - CBC Performed By: #### L 100.0500 ####[facility] [address] [place], [address] MCH (RBC) [Entitic mass] 28.2 pg Normal 27.0-32.0 [facility] Comment on above: Order Comment: Order Date: 05/10/24Order Info: [id number] - CBC Performed By: #### L 100.0500 ####[facility] [address] [place], [address] MCHC (RBC) [Mass/Vol] 32.7 g/dL Normal 32-36 [facility] Comment on above: Order Comment: Order Date: 05/10/24Order Info: [id number] - CBC Performed By: #### L 100.0500 ####[facility] [address] [place], [address] MCV (RBC) [Entitic vol] 86.2 fL Normal 81-99 [facility] Comment on above: Order Comment: Order Date: 05/10/24Order Info: [id number] - CBC Performed By: #### L 100.0500 ####[facility] [address] [place], [address] Platelet mean volume (Bld) [Entitic vol] 10.0 fL Normal 6.2-12.0 [facility] Comment on above: Order Comment: Order Date: 05/10/24Order Info: [id number] - CBC Performed By: #### L 100.0500 ####[facility] [address] [place], [address] Platelets (Bld) [#/Vol] 202 10*3/uL Normal 150-450 [facility] Comment on above: Order Comment: Order Date: 05/10/24Order Info: [id number] - CBC Performed By: #### L 100.0500 ####[facility] [address] [place], [address] RBC (Bld) [#/Vol] 5.43 10*6/uL High 4.2-5.4 [facility] Comment on above: Order Comment: Order Date: 05/10/24Order Info: [id number] - CBC Performed By: #### L 100.0500 ####[facility] [address] [place], [address] RDW SD 44.2 fl High 35.1-43.9 [facility] Comment on above: Order Comment: Order Date: 05/10/24Order Info: [id number] - CBC Performed By: #### L 100.0500 ####[facility] [address] [place], [address] WBC (Bld) [#/Vol] 7.5 10*3/uL Normal 4.4-11.0 [facility] Comment on above: Order Comment: Order Date: 05/10/24Order Info: [id number] - CBC Performed By: #### L 100.0500 ####[facility] [address] [place], [place], [address] Carbon dioxide measurementOr dered By: Gab Lockett on 05-10-2024 CO2 [Moles/Vol] 23.0 mmol/L 21.0-32.0 [facility] Chloride measurementOrdered By: Gab Bhaktaorr on 05-10-2024 Chloride [Moles/Vol] 105 mmol/L 98-107 [facility] Comprehensive Metabolic Prof ilon 05-10-2024 Albumin [Mass/Vol] 3.8 g/dL Normal 3.2-5.0 [facility] Comment on above: Order Comment: Order Date: 05/10/24Order Info: [id number] - CMPOrder Info: 3026-2 - Z7Ccqrt Info: 3016-3 - TSH Performed By: #### L 500.4050 ####[facility] [address] [place], [address] Albumin/Globulin [Mass ratio] 1.1 {ratio} Normal 0.9-2.4 [facility] Comment on above: Order Comment: Order Date: 05/10/24Order Info: [id number] - CMPOrder Info: 3026-2 - S6Fvftc Info: 3016-3 - TSH Performed By: #### L 500.4050 ####[facility] [address] [place], [address] ALK P 110 U/L Normal 45-117 [facility] Comment on above: Order Comment: Order Date: 05/10/24Order Info: [id number] - CMPOrder Info: 3026-2 - J8Toqbp Info: 3016-3 - TSH Performed By: #### L 500.4050 ####[facility] [address] [place], [address] ALT [Catalytic activity/Vol] 33 U/L Normal 13-56 [facility] Comment on above: Order Comment: Order Date: 05/10/24Order Info: [id number] - CMPOrder Info: 3026-2 - D8Jzfjp Info: 3016-3 - TSH Performed By: #### L 500.4050 ####[facility] [address] [place], [address] AST [Catalytic activity/Vol] 33 U/L Normal 15-37 [facility] Comment on above: Order Comment: Order Date: 05/10/24Order Info: [id number] - CMPOrder Info: 3026-2 - M2Mxhjr Info: 3016-3 - TSH Performed By: #### L 500.4050 ####[facility] [address] [place], [address] Bilirubin [Mass/Vol] 0.70 mg/dL Normal 0.20-1.00 [facility] Comment on above: Order Comment: Order Date: 05/10/24Order Info: 86-1 - CMPOrder Info: 3026-2 - S7Wecho Info: 3016-3 - TSH Result Comment: For patients on eltrombopag therapy, use of Dimension [place] TBIL is not recommended. Performed By: #### L 500.4050 ####[facility] [address] [place], [address] BUN/CRE 22.0 RATIO High 10-20 [facility] Comment on above: Order Comment: Order Date: 05/10/24Order Info: [id number] - CMPOrder Info: 3026-2 - Z2Nwvvb Info: 3016-3 - TSH Performed By: #### L 500.4050 ####[facility] [address] [place], [address] CA,Total 9.5 mg/dL Normal 8.5-10.1 [facility] Comment on above: Order Comment: Order Date: 05/10/24Order Info: [id number] - CMPOrder Info: 3026-2 - R9Rhuze Info: 3016-3 - TSH Performed By: #### L 500.4050 ####[facility] [address] [place], [address] Chloride [Moles/Vol] 105 mmol/L Normal 98-107 [facility] Comment on above: Order Comment: Order Date: 05/10/24Order Info: 0786-1 - CMPOrder Info: 3026-2 - K6Hktuk Info: 3016-3 - TSH Performed By: #### L 500.4050 ####[facility] [address] [place], [address] CO2 [Moles/Vol] 23.0 mmol/L Normal 21.0-32.0 [facility] Comment on above: Order Comment: Order Date: 05/10/24Order Info: 86-1 - CMPOrder Info: 3025-2 - C0Vayuo Info: 3 - TSH Performed By: #### L 500.4050 ####[facility] [address] [place], [address] Creatinine [Mass/Vol] 0.77 mg/dL Normal 0.55-1.02 [facility] Comment on above: Order Comment: Order Date: 05/10/24Order Info: 86-1 - CMPOrder Info: 3025-2 - B7Yvzrb Info: 3015-3 - TSH Result Comment: The validity of the calculated GFR GFRAA in patients over70 years has not been determined. Clinical correlation isessential. Performed By: #### L 500.4050 ####[facility] [address] [place], [address] EST GFR - AA 102 mL/min Normal >60 [facility] Comment on above: Order Comment: Order Date: 05/10/24Order Info: 86-1 - CMPOrder Info: 6-2 - L8Jssll Info: 3016-3 - TSH Result Comment: Afri can Prydeinig GFR Calc Performed By: #### L 500.4050 ####[facility] [address] [place], [address] GAP 11 Normal 5-15 [facility] Comment on above: Order Comment: Order Date: 05/10/24Order Info: 0786-1 - CMPOrder Info: 3026-2 - R1Qtxrj Info: 3016-3 - TSH Performed By: #### L 500.4050 ####[facility] [address] [place], [address] GFR/1.73 sq M.predicted among non-blacks MDRD (S/P/Bld) [Vol rate/Area] 84 mL/min/{1.73_m2} Normal >60 [facility] Comment on above: Order Comment: Order Date: 05/10/24Order Info: 86-1 - CMPOrder Info: 3026-2 - Y3Hcnpe Info: 3016-3 - TSH Result Comment: Non- GFR Calc Performed By: #### L 500.4050 ####[facility] [address] [place], [address] Globulin (S) [Mass/Vol] 3.6 g/dL Normal 2.2-4.2 [facility] Comment on above: Order Comment: Order Date: 05/10/24Order Info: 0786-1 - CMPOrder Info: 3026-2 - Y6Vfpcs Info: 3016-3 - TSH Performed By: #### L 500.4050 ####[facility] [address] [place], [address] Glucose [Mass/Vol] 79 mg/dL Normal 74-106 [facility] Comment on above: Order Comment: Order Date: 05/10/24Order Info: 86-1 - CMPOrder Info: 3026-2 - R1Bhuww Info: 3016-3 - TSH Performed By: #### L 500.4050 ####[facility] [address] [place], [address] Potassium [Moles/Vol] 4.2 mmol/L Normal 3.5-5.1 [facility] Comment on above: Order Comment: Order Date: 05/10/24Order Info: 0786-1 - CMPOrder Info: 3026-2 - N4Qywsv Info: 3016-3 - TSH Performed By: #### L 500.4050 ####[facility] [address] [place], [place], [address] Sodium [Moles/Vol] 139 mmol/L Normal 136-145 [facility] Comment on above: Order Comment: Order Date: 05/10/24Order Info: 0786-1 - CMPOrder Info: 3026-2 - R5Bmbjg Info: 3016-3 - TSH Performed By: #### L 500.4050 ####[facility] [address] [place], [place], [address] T PROT 7.4 g/dL Normal 6.4-8.2 [facility] Comment on above: Order Comment: Order Date: 05/10/24Order Info: [id number]- - CMPOrder Info: 302-2 - D1Buzyh Info: 3016-3 - TSH Performed By: #### L 500.4050 ####[facility] [address] [place], [address] Urea nitrogen [Mass/Vol] 17 mg/dL Normal 7-18 [facility] Comment on above: Order Comment: Order Date: 05/10/24Order Info: [id number]- - CMPOrder Info: 3026-2 - M4Wrbpq Info: 3016-3 - TSH Performed By: #### L 500.4050 ####[facility] [address] [place], [address] Erythrocyte distribution wid th ratioOrdered By: Gab Lockett on 05-10-2024 Erythrocyte distribution width (RBC) [Ratio] 14.0 % 11.6-14.6 [facility] Erythrocyte distribution wid th standard deviationOrdered By: Gab Lockett on 05-10-2024 Erythrocyte distribution width (RBC) [Entitic vol] 44.2 fL High 35.1-43.9 [facility] Erythrocyte distribution width (RBC) [Ratio] 44.2 fl High 35.1-43.9 [facility] Estimated glomerular filtrat ion rate (GFR) AmericanOrdered By: Gab Lockett on 05-10-2024 Estimated GFR (MDRD) Amer 102 mL/min >60 [facility] Comment on above: GFR Calc Glomerular filtration rate ( GFR) estimationOrdered By: Gab Lockett on 05-10-2024 Estimated GFR (MDRD) Non-Af Amer 84 mL/min >60 [facility] Comment on above: Non- GFR Calc GFR/1.73 sq M.predicted among non-blacks MDRD (S/P/Bld) [Vol rate/Area] 84 mL/min/{1.73_m2} >60 [facility] Comment on above: Non- GFR Calc Glucose measurementOrdered B y: Gab Lockett on 05-10-2024 Glucose [Mass/Vol] 79 mg/dL 74-106 [facility] Hematocrit Auto (Bld) [Volum e fraction]Ordered By: Gab Lockett on 05-10-2024 Hematocrit (Bld) [Volume fraction] 46.8 % 37-47 [facility] Hemoglobin measurementOrdere d By: Gab Lockett on 05-10-2024 Hemoglobin (Bld) [Mass/Vol] 15.3 g/dL High 12.0-15.0 [facility] [employer] normalized rat io (INR) calculationOrdered By: Adam Solorzano on 05-10-2024 INR Coag (Bld) [Relative time] 2.9 {INR} [facility] Laboratory - Chemistry and C hemistry - challengeOrdered By: Gab Lockett 05-10-2024 AST [Catalytic activity/Vol] 33 U/L 15-37 [facility] MCV (mean corpuscular volume ) determinationOrdered By: Gab Lockett 05-10-2024 MCV (RBC) [Entitic vol] 86.2 fL 81-99 [facility] Mean corpuscular hemoglobin (MCH) determinationOrdered By: Gab Lockett 05-10-2024 MCH (RBC) [Entitic mass] 28.2 pg 27.0-32.0 [facility] Mean corpuscular hemoglobin concentration (MCHC) determinationOrdered By: Gab Lockett 05-10-2024 MCHC (RBC) [Mass/Vol] 32.7 g/dL 32-36 [facility] Mean platelet volume determi nationOrdered By: Gab Lockett on 05-10-2024 Platelet mean volume (Bld) [Entitic vol] 10.0 fL 6.2-12.0 [facility] Platelet countOrdered By: Anabella berg orr on 05-10-2024 Platelets (Bld) [#/Vol] 202 10*3/uL 150-450 [facility] Potassium measurementOrdered By: Gab on 05-10-2024 Potassium [Moles/Vol] 4.2 mmol/L 3.5-5.1 [facility] Prothrombin Time w/INRon INR Coag (PPP) [Relative time] 2.9 {INR} Normal [facility] Comment on above: Performed By: #### L 300.3900 ####[facility] [address] [place], [place], [phone] PT Coag (PPP) [Time] 30.6 s High 11.7-14.9 [facility] Comment on above: Performed By: #### L 300.3900 ####[facility] [address] [place], [place], [id number] Prothrombin timeOrdered By: Adam Solorzano on 05-10-2024 PT Coag (PPP) [Time] 30.6 s High 11.7-14.9 [facility] RBC Auto (Bld) [#/Vol]Ordere d By: Gab on 05-10-2024 RBC (Bld) [#/Vol] 5.43 10*6/uL High 4.2-5.4 [facility] Serum anion gap measurementO rdered By: Gab Aashishmariza on 05-10-2024 Anion gap [Moles/Vol] 11 mmol/L 5-15 [facility] Serum globulin measurementOr dered By: Gab Livia on 05-10-2024 Globulin (S) [Mass/Vol] 3.6 g/dL 2.2-4.2 [facility] Serum or plasma alanine angelo otransferase (ALT) measurementOrdered By: Gab Bhakta on 05-10-2024 ALT [Catalytic activity/Vol] 33 U/L 13-56 [facility] Serum or plasma albumin maria g urement (mass/volume)Ordered By: [facility] on 05-10-2024 Albumin [Mass/Vol] 3.8 g/dL 3.2-5.0 [facility] Serum or plasma alkaline love sphatase measurementOrdered By: [facility] on 05-10-2024 ALP [Catalytic activity/Vol] 110 U/L 45-117 [facility] Serum or plasma calcium maria g urement (mass/volume)Ordered By: [facility] on 05-10-2024 Calcium [Mass/Vol] 9.5 mg/dL 8.5-10.1 [facility] Serum or plasma creatinine m easurement (mass/volume)Ordered By: [facility] 05-10-2024 Creatinine [Mass/Vol] 0.77 mg/dL 0.55-1.02 [facility] Comment on above: The validity of the calculated GFR & GFRAA in patients over 70 years has not been determined. Clinical correlation is essential. Serum or plasma thyroid stim ulating hormone (TSH) measurement (units/volume)Ordered By: [facility] on 05-10-2024 TSH Qn 2.120 uIU/mL 0.358-3.740 [facility] Serum or plasma thyroxine (T 4) measurement (mass/volume)Ordered By: [facility] 05-10-2024 T4 [Mass/Vol] 8.9 ug/dL 4.8-13.9 [facility] Serum or plasma urea nitroge n measurement (mass/volume)Ordered By: [facility] 05-10-2024 Urea nitrogen [Mass/Vol] 17 mg/dL 7-18 [facility] Sodium levelOrdered By: Gita wang [facility] [place] on 05-10-2024 Sodium [Moles/Vol] 139 mmol/L 136-145 [facility] T4 Total, Thyroxinon 025 T4 [Mass/Vol] 8.9 ug/dL Normal 4.8-13.9 [facility] Comment on above: Order Comment: Order Date: 05/10/24Order Info: [id number] - CMPOrder Info: [id number] - H6Lvkdx Info: 3016-3 - TSH Performed By: #### L 501.9310 ####[facility] [address] [place], [place], [address] TSH QnOrdered By: Gab garcia on 05-10-2024 Thyroid Stimulating Hormone (TSH) 2.120 uIU/mL 0.358-3.740 [facility] Thyroid Stim Hormone (TSH)on 05-10-2024 TSH 2.120 uIU/mL Normal 0.358-3.740 [facility] Comment on above: Order Comment: Order Date: 05/10/24Order Info: [id number] - CMPOrder Info: [id number] - H8Ryvil Info: 3016-3 - TSH Performed By: #### L 501.9520 ####[facility] [address] [place], [place], [address] Total proteinOrdered By: Chris Lockett on 05-10-2024 Protein [Mass/Vol] 7.4 g/dL 6.4-8.2 [facility] White blood cell (WBC) count Ordered By: Gab Lockett on 05-10-2024 WBC (Bld) [#/Vol] 7.5 10*3/uL 4.4-11.0 [facility] INR Coag (BldC) [Relative ti me]Ordered By: Adam Solorzano on 04-27-2024 INR Coag (Bld) [Relative time] 2.8 {INR} [facility] Comment on above: Critical Value > 4.0 International normalized rat io (INR) measurement by fingerstickOrdered By: Adam Solorzano on 04-27-2024 INR Coag (BldC) [Relative time] 2.8 [facility] Comment on above: Critical Value > 4.0 PT Coag (Bld) [Time]Ordered By: Adam Solorzano on 04-27-2024 Bedside Prothrombin Time 29.8 SEC High 11.7-14.9 [facility] Protime w/INR Fingerstickon 04-27-2024 INR Coag (PPP) [Relative time] 2.8 {INR} Normal [facility] Comment on above: Result Comment: Crit ical Value > 4.0 Performed By: #### L 9200.0000 ####[facility] [address] [place], [address] Protime Coagsen 29.8 SEC High 11.7-14.9 [facility] Comment on above: Performed By: #### L 9200.0000 ####[facility] [address] [place], [address] Whole blood prothrombin time Ordered By: Adam Solorzano on 04-27-2024 PT Coag (Bld) [Time] 29.8 s High 11.7-14.9 [facility] INR Coag (BldC) [Relative ti me]Ordered By: Adam Solorzano on 04-21-2024 INR Coag (Bld) [Relative time] 2.5 {INR} [facility] Comment on above: Critical Value > 4.0 International normalized rat io (INR) measurement by fingerstickOrdered By: Adam Solorzano on 04-21-2024 INR Coag (BldC) [Relative time] 2.5 [facility] Comment on above: Critical Value > 4.0 PT Coag (Bld) [Time]Ordered By: Adam Solorzano on 04-21-2024 Bedside Prothrombin Time 27.0 SEC High 11.7-14.9 [facility] Protime w/INR Fingerstickon 04-21-2024 INR Coag (PPP) [Relative time] 2.5 {INR} Normal [facility] Comment on above: Result Comment: Crit ical Value > 4.0 Performed By: #### L 9200.0000 ####[facility] [address] [place], [address] Protime Coagsen 27.0 SEC High 11.7-14.9 [facility] Comment on above: Performed By: #### L 9200.0000 ####[facility] [address] [place], [place], [phone] Whole blood prothrombin time Ordered By: Adam Solorzano on 04-21-2024 PT Coag (Bld) [Time] 27.0 s High 11.7-14.9 [facility] Prothrombin Time w/INRon INR Coag (PPP) [Relative time] 2.0 {INR} Normal [facility] Comment on above: Performed By: #### L 300.3900 ####[facility] [address] [place], [place], [phone] PT Coag (PPP) [Time] 23.4 s High 11.7-14.9 [facility] Comment on above: Performed By: #### L 300.3900 ####[facility] [address] [place], [place], [phone] Prothrombin timeOrdered By: Adam Solorzano on 04-12-2024 PT Coag (PPP) [Time] 23.4 s High 11.7-14.9 [facility] Anti-dsDNA Abon 04-05-2024 ANTI-DNA (DS)AB 8 IU/mL Normal 0-9 [facility] Comment on above: Result Comment: Nega tive <5 Equivocal 5 - 9 Positive >9Performed at: [facility] [address] [place], [place] [id number] Director: Wilner Suarez PhD, Phone: [phone] Performed By: #### L 501.4405, L3100.5800, L100.0100, L3100.5700, L300.3900, L3100.5500, L501.1000, L501.6710, L400.0001, L501.4100, L101.9900, L501.1105 ####[facility] [address] [place], [place], [phone] Complement C3on 04-05-2024 COMP C3 111 mg/dL Normal 82-167 [facility] Comment on above: Result Comment: Perf ormed at: [facility] [address] [place], [place] [id number] Director: Wilner Suarez PhD, Phone: [phone] Performed By: #### L 267.4405, L3100.5800, L100.0100, L3100.5700, L300.3900, L3100.5500, L501.1000, L501.6710, L400.0001, L501.4100, L101.9900, L501.1105 ####[facility] [address] [place], [place], [phone] Complement C4on 04-05-2024 COMPLEMENT, C4 25 mg/dL Normal 12-38 [facility] Comment on above: Performed By: #### L 501.4405, L3100.5800, L100.0100, L3100.5700, L300.3900, L3100.5500, L501.1000, L501.6710, L400.0001, L501.4100, L101.9900, L501.1105 ####[facility] [address] [place], [place], [address] AST(SGOT)on 04-03-2024 AST [Catalytic activity/Vol] 30 U/L Normal 15-37 [facility] Comment on above: Performed By: #### L 501.4405, L3100.5800, L100.0100, L3100.5700, L300.3900, L3100.5500, L501.1000, L501.6710, L400.0001, L501.4100, L101.9900, L501.1105 ####[facility] [address] [place], [place], [address] Absolute lymphocyte countOrd ered By: Morristonfelipe Solorzano on 04-03-2024 Lymphocytes Auto (Unsp spec) [#/Vol] 1.09 10*3/uL 0.83-4.51 [facility] Absolute neutrophil countOrd ered By: Adam Jeanine on 04-03-2024 Neutrophils (Bld) [#/Vol] 2.7 10*3/uL 2.0-7.7 [facility] Alanine Aminotransferas (SGP T)on 04-03-2024 ALT [Catalytic activity/Vol] 41 U/L Normal 13-56 [facility] Comment on above: Performed By: #### L 501.4405, L3100.5800, L100.0100, L3100.5700, L300.3900, L3100.5500, L501.1000, L501.6710, L400.0001, L501.4100, L101.9900, L501.1105 ####[facility] [address] [place], [place], [address] Automated lymphocyte count a s percentage of total leukocytesOrdered By: Adam Sloorzano on 04-03-2024 Lymphocytes/100 WBC Auto (Unsp spec) 25.0 % 19-41 [facility] BUNon 04-03-2024 Urea nitrogen [Mass/Vol] 22 mg/dL High 7-18 [facility] Comment on above: Performed By: #### L 501.4405, L3100.5800, L100.0100, L3100.5700, L300.3900, L3100.5500, L501.1000, L501.6710, L400.0001, L501.4100, L101.9900, L501.1105 ####[facility] [address] [place], [place], [address] Basophil percentageOrdered B y: Adam Jeanine on 04-03-2024 Basophils/100 WBC (Bld) 0.9 % 0-1 [facility] C-reactive protein measureme nt by high sensitivity methodOrdered By: Adam Solorzano on 04-03-2024 C-Reactive Protein Extended Range 7.40 mg/L High 0.0-3.0 [facility] Comment on above: C-Reactive Protein ( CRP) provides useful information for thediagnosis, therapy and monitoring of inflammatory processesand associated diseases. For the evaluation of Relative Riskfor Cardiovascular Disease, a High Sensitivity CRP (HSCRP)should be ordered. C-reactive protein measurement by high sensitivity method 7.40 mg/L High 0.0-3.0 [facility] Comment on above: C-Reactive Protein ( CRP) provides useful information for thediagnosis, therapy and monitoring of inflammatory processesand associated diseases. For the evaluation of Relative Riskfor Cardiovascular Disease, a High Sensitivity CRP (HSCRP)should be ordered. CBC W/Diff, Automatedon 03-22 Absolute Lymph 1.09 X10 3/uL Normal 0.83-4.51 [facility] Comment on above: Performed By: #### L 501.4405, L3100.5800, L100.0100, L3100.5700, L300.3900, L3100.5500, L501.1000, L501.6710, L400.0001, L501.4100, L101.9900, L501.1105 ####[facility] [address] [place], [address] Absolute Neut 2.7 X10 3/uL Normal 2.0-7.7 [facility] Comment on above: Performed By: #### L 501.4405, L3100.5800, L100.0100, L3100.5700, L300.3900, L3100.5500, L501.1000, L501.6710, L400.0001, L501.4100, L101.9900, L501.1105 ####[facility] [address] [place], [address] Basophils/100 WBC (Bld) 0.9 % Normal 0-1 [facility] Comment on above: Performed By: #### L 501.4405, L3100.5800, L100.0100, L3100.5700, L300.3900, L3100.5500, L501.1000, L501.6710, L400.0001, L501.4100, L101.9900, L501.1105 ####[facility] [address] [place], [address] Eosinophils/100 WBC (Bld) 2.8 % Normal 0-5 [facility] Comment on above: Performed By: #### L 501.4405, L3100.5800, L100.0100, L3100.5700, L300.3900, L3100.5500, L501.1000, L501.6710, L400.0001, L501.4100, L101.9900, L501.1105 ####[facility] [address] [place], [phone]) Erythrocyte distribution width (RBC) [Ratio] 13.8 % Normal 11.6-14.6 [facility] Comment on above: Performed By: #### L 501.4405, L3100.5800, L100.0100, L3100.5700, L300.3900, L3100.5500, L501.1000, L501.6710, L400.0001, L501.4100, L101.9900, L501.1105 ####[facility] [address] [facility] [place], [phone]) Hematocrit (Bld) [Volume fraction] 39.8 % Normal 37-47 [facility] Comment on above: Performed By: #### L 501.4405, L3100.5800, L100.0100, L3100.5700, L300.3900, L3100.5500, L501.1000, L501.6710, L400.0001, L501.4100, L101.9900, L501.1105 ####[facility] [address] [facility] [place], [phone]) Hemoglobin (Bld) [Mass/Vol] 13.5 g/dL Normal 12.0-15.0 [facility] Comment on above: Performed By: #### L 501.4405, L3100.5800, L100.0100, L3100.5700, L300.3900, L3100.5500, L501.1000, L501.6710, L400.0001, L501.4100, L101.9900, L501.1105 ####[facility] [address] [place], [address](124 IG% 0.500 Normal 0.0-0.9 [facility] Comment on above: Result Comment: IG% - Immature Granulocytes (promyelocytes, myelocytes andmetamyelocytes) > 1% indicates that a LEFT SHIFT is Present. Performed By: #### L 501.4405, L3100.5800, L100.0100, L3100.5700, L300.3900, L3100.5500, L501.1000, L501.6710, L400.0001, L501.4100, L101.9900, L501.1105 ####[facility] [address] [facility] [place], [place], [phone]) Lymphocytes/100 WBC (Bld) 25.0 % Normal 19-41 [facility] Comment on above: Performed By: #### L 501.4405, L3100.5800, L100.0100, L3100.5700, L300.3900, L3100.5500, L501.1000, L501.6710, L400.0001, L501.4100, L101.9900, L501.1105 ####[facility] [address] [facility] [place], [place], [phone] MCH (RBC) [Entitic mass] 28.2 pg Normal 27.0-32.0 [facility] Comment on above: Performed By: #### L 501.4405, L3100.5800, L100.0100, L3100.5700, L300.3900, L3100.5500, L501.1000, L501.6710, L400.0001, L501.4100, L101.9900, L501.1105 ####[facility] [address] [facility] [address] [place], [place], [phone] MCHC (RBC) [Mass/Vol] 33.9 g/dL Normal 32-36 [facility] Comment on above: Performed By: #### L 501.4405, L3100.5800, L100.0100, L3100.5700, L300.3900, L3100.5500, L501.1000, L501.6710, L400.0001, L501.4100, L101.9900, L501.1105 ####[facility] [address] [place], [address] MCV (RBC) [Entitic vol] 83.1 fL Normal 81-99 [facility] Comment on above: Performed By: #### L 501.4405, L3100.5800, L100.0100, L3100.5700, L300.3900, L3100.5500, L501.1000, L501.6710, L400.0001, L501.4100, L101.9900, L501.1105 ####[facility] [address] [place], [address] Monocytes/100 WBC (Bld) 8.7 % Normal 0-10 [facility] Comment on above: Performed By: #### L 501.4405, L3100.5800, L100.0100, L3100.5700, L300.3900, L3100.5500, L501.1000, L501.6710, L400.0001, L501.4100, L101.9900, L501.1105 ####[facility] [address] [place], [address] Neutrophils/100 WBC (Bld) 62.1 % Normal 47-70 [facility] Comment on above: Performed By: #### L 501.4405, L3100.5800, L100.0100, L3100.5700, L300.3900, L3100.5500, L501.1000, L501.6710, L400.0001, L501.4100, L101.9900, L501.1105 ####[facility] [address] [place], [address] Nucleated RBC (Bld) [#/Vol] 0 10*3/uL Normal 0-5 [facility] Comment on above: Performed By: #### L 501.4405, L3100.5800, L100.0100, L3100.5700, L300.3900, L3100.5500, L501.1000, L501.6710, L400.0001, L501.4100, L101.9900, L501.1105 ####[facility] [address] [place], [address] Platelet mean volume (Bld) [Entitic vol] 10.0 fL Normal 6.2-12.0 [facility] Comment on above: Performed By: #### L 501.4405, L3100.5800, L100.0100, L3100.5700, L300.3900, L3100.5500, L501.1000, L501.6710, L400.0001, L501.4100, L101.9900, L501.1105 ####[facility] [address] [place], [address] Platelets (Bld) [#/Vol] 165 10*3/uL Normal 150-450 [facility] Comment on above: Performed By: #### L 501.4405, L3100.5800, L100.0100, L3100.5700, L300.3900, L3100.5500, L501.1000, L501.6710, L400.0001, L501.4100, L101.9900, L501.1105 ####[facility] [address] [place], [address] RBC (Bld) [#/Vol] 4.79 10*6/uL Normal 4.2-5.4 [facility] Comment on above: Performed By: #### L 501.4405, L3100.5800, L100.0100, L3100.5700, L300.3900, L3100.5500, L501.1000, L501.6710, L400.0001, L501.4100, L101.9900, L501.1105 ####[facility] [address] [place], [address] RDW SD 41.7 fl Normal 35.1-43.9 [facility] Comment on above: Performed By: #### L 501.4405, L3100.5800, L100.0100, L3100.5700, L300.3900, L3100.5500, L501.1000, L501.6710, L400.0001, L501.4100, L101.9900, L501.1105 ####[facility] [address] [place], [place], [address] WBC (Bld) [#/Vol] 4.4 10*3/uL Normal 4.4-11.0 [facility] Comment on above: Performed By: #### L 501.4405, L3100.5800, L100.0100, L3100.5700, L300.3900, L3100.5500, L501.1000, L501.6710, L400.0001, L501.4100, L101.9900, L501.1105 ####[facility] [address] [place], [address] CRPon 04-03-2024 C-REACTIVE PROT 7.40 mg/L High 0.0-3.0 [facility] Comment on above: Result Comment: C-Re active Protein (CRP) provides useful information for thediagnosis, therapy and monitoring of inflammatory processesand associated diseases. For the evaluation of Relative Riskfor Cardiovascular Disease, a High Sensitivity CRP (HSCRP)should be ordered. Performed By: #### L 501.4405, L3100.5800, L100.0100, L3100.5700, L300.3900, L3100.5500, L501.1000, L501.6710, L400.0001, L501.4100, L101.9900, L501.1105 ####[facility] [address] [facility] [place], [address] Complement C3 assayOrdered B y: Adam Solorzano on 04-03-2024 Complement C3 111 mg/dL 82-167 [facility] Comment on above: Performed at: [facility] [address] [id number] Director: Wilner Suarez PhD, Phone: [phone] Complement C4 [Mass/Vol]Orde red By: Morriston Jeanine on 04-03-2024 Complement C4 25 mg/dL 12-38 [facility] DNA double strand Ab Qn (S)O rdered By: Adam Jeanine on 04-03-2024 Anti-Double Strand DNA Antibody 8 IU/mL 0-9 [facility] Comment on above: Negative <5 Equivoca l 5 - 9 Positive >9Performed at: [facility] [address] [id number] Director: Wilner Suarez PhD, Phone: [phone] Eosinophil percentageOrdered By: Morriston Jeanine on 04-03-2024 Eosinophils/100 WBC (Bld) 2.8 % 0-5 [facility] Erythrocyte Sed Rateon 04-03 SED RATE 2 mm/hr Normal 0-30 [facility] Comment on above: Performed By: #### L 501.4405, L3100.5800, L100.0100, L3100.5700, L300.3900, L3100.5500, L501.1000, L501.6710, L400.0001, L501.4100, L101.9900, L501.1105 ####[facility] [address] [place], [address] Erythrocyte distribution wid th ratioOrdered By: Morriston Jeanine on 04-03-2024 Erythrocyte distribution width (RBC) [Ratio] 13.8 % 11.6-14.6 [facility] Erythrocyte distribution wid th standard deviationOrdered By: Adam Jeanine on 04-03-2024 Erythrocyte distribution width (RBC) [Entitic vol] 41.7 fL 35.1-43.9 [facility] Erythrocyte distribution width (RBC) [Ratio] 41.7 fl 35.1-43.9 [facility] Erythrocyte sedimentation ra teOrdered By: Adam Jeanine on 04-03-2024 ESR (Bld) [Velocity] 2 mm/h 0-30 [facility] Estimated glomerular filtrat ion rate (GFR) AmericanOrdered By: Adam Jeanine on 04-03-2024 Estimated GFR (MDRD) Amer 101 mL/min >60 [facility] Comment on above: GFR Calc Glomerular filtration rate ( GFR) estimationOrdered By: Adam Solorzano on 04-03-2024 Estimated GFR (MDRD) Non-Af Amer 83 mL/min >60 [facility] Comment on above: Non- GFR Calc GFR/1.73 sq M.predicted among non-blacks MDRD (S/P/Bld) [Vol rate/Area] 83 mL/min/{1.73_m2} >60 [facility] Comment on above: Non- GFR Calc Hematocrit Auto (Bld) [Volum e fraction]Ordered By: Adam Solorzano on 04-03-2024 Hematocrit (Bld) [Volume fraction] 39.8 % 37-47 [facility] Hemoglobin measurementOrdere d By: Adam Solorzano on 04-03-2024 Hemoglobin (Bld) [Mass/Vol] 13.5 g/dL 12.0-15.0 [facility] Immature granulocytes/100 WB C Auto (Bld)Ordered By: Adam Solorzano on 04-03-2024 Immature granulocytes/100 WBC (Bld) 0.500 % 0.0-0.9 [facility] Comment on above: IG% - Immature Granu locytes (promyelocytes, myelocytes and metamyelocytes) > 1% indicates that a LEFT SHIFT is Present. Laboratory - Chemistry and C hemistry - challengeOrdered By: Adam Solorzano on 04-03-2024 AST [Catalytic activity/Vol] 30 U/L 15-37 [facility] Lymphocytes Auto (Unsp spec) [#/Vol]Ordered By: Adam Solorzano on 04-03-2024 Lymphocytes (Bld) [#/Vol] 1.09 10*3/uL 0.83-4.51 [facility] Lymphocytes/100 WBC Auto (Un sp spec)Ordered By: Adam Solorzano on 04-03-2024 Lymphocytes/100 WBC (Bld) 25.0 % 19-41 [facility] MCV (mean corpuscular volume ) determinationOrdered By: Adam Solorzano on 04-03-2024 MCV (RBC) [Entitic vol] 83.1 fL 81-99 [facility] Mean corpuscular hemoglobin (MCH) determinationOrdered By: Adam Jenaine on 04-03-2024 MCH (RBC) [Entitic mass] 28.2 pg 27.0-32.0 [facility] Mean corpuscular hemoglobin concentration (MCHC) determinationOrdered By: Adam Jeanine on 04-03-2024 MCHC (RBC) [Mass/Vol] 33.9 g/dL 32-36 [facility] Mean platelet volume determi nationOrdered By: Morriston Jeanine on 04-03-2024 Platelet mean volume (Bld) [Entitic vol] 10.0 fL 6.2-12.0 [facility] Monocyte percentageOrdered B y: Morriston Jeanine on 04-03-2024 Monocytes/100 WBC (Bld) 8.7 % 0-10 [facility] Neutrophil percentageOrdered By: Morriston Jeanine on 04-03-2024 Neutrophils/100 WBC (Bld) 62.1 % 47-70 [facility] Nucleated red blood cell per centageOrdered By: Morriston Jeanine on 04-03-2024 Nucleated RBC/100 WBC (Bld) [Ratio] 0 % 0-5 [facility] Platelet countOrdered By: Cy ril Jeanine on 04-03-2024 Platelets (Bld) [#/Vol] 165 10*3/uL 150-450 [facility] Prothrombin Time w/INRon INR Coag (PPP) [Relative time] 2.2 {INR} Normal [facility] Comment on above: Order Comment: Comme nts: STANDING ORDEROKAY FOR FINGERSTICK Performed By: #### L 501.4405, L3100.5800, L100.0100, L3100.5700, L300.3900, L3100.5500, L501.1000, L501.6710, L400.0001, L501.4100, L101.9900, L501.1105 ####[facility] [address] [place], [place], [phone] PT Coag (PPP) [Time] 25.1 s High 11.7-14.9 [facility] Comment on above: Order Comment: Comme nts: STANDING ORDEROKAY FOR FINGERSTICK Performed By: #### L 501.4405, L3100.5800, L100.0100, L3100.5700, L300.3900, L3100.5500, L501.1000, L501.6710, L400.0001, L501.4100, L101.9900, L501.1105 ####[facility] [address] [place], [place], [phone] RBC Auto (Bld) [#/Vol]Ordere d By: Adam Solorzano on 04-03-2024 RBC (Bld) [#/Vol] 4.79 10*6/uL 4.2-5.4 [facility] Serum Creatinine AND GFRon 0 04-03-2024 Creatinine [Mass/Vol] 0.78 mg/dL Normal 0.55-1.02 [facility] Comment on above: Result Comment: The validity of the calculated GFR GFRAA in patients over70 years has not been determined. Clinical correlation isessential. Performed By: #### L 501.4405, L3100.5800, L100.0100, L3100.5700, L300.3900, L3100.5500, L501.1000, L501.6710, L400.0001, L501.4100, L101.9900, L501.1105 ####[facility] [address] [place], [place], [id number] EST GFR - AA 101 mL/min Normal >60 [facility] Comment on above: Result Comment: Afri can Prydeinig GFR Calc Performed By: #### L 501.4405, L3100.5800, L100.0100, L3100.5700, L300.3900, L3100.5500, L501.1000, L501.6710, L400.0001, L501.4100, L101.9900, L501.1105 ####[facility] [address] [place], [address] GFR/1.73 sq M.predicted among non-blacks MDRD (S/P/Bld) [Vol rate/Area] 83 mL/min/{1.73_m2} Normal >60 [facility] Comment on above: Result Comment: Non- GFR Calc Performed By: #### L 501.4405, L3100.5800, L100.0100, L3100.5700, L300.3900, L3100.5500, L501.1000, L501.6710, L400.0001, L501.4100, L101.9900, L501.1105 ####[facility] [address] [place], [address] Serum DNA double strand anti body assay (units/volume)Ordered By: Adam Solorzano on 04-03-2024 DNA double strand Ab Qn (S) 8 [IU]/mL 0-9 [facility] Comment on above: Negative <5 Equivoca l 5 - 9 Positive >9Performed at: [facility] [address] [id number] Director: Wilner Suarez PhD, Phone: [phone] Serum or plasma alanine angelo otransferase (ALT) measurementOrdered By: Adam Solorzano on 04-03-2024 ALT [Catalytic activity/Vol] 41 U/L 13 [facility] Serum or plasma complement C 4 measurement (mass/volume)Ordered By: Adam Jeanine on 04-03-2024 Complement C4 [Mass/Vol] 25 mg/dL 12 [facility] Serum or plasma creatinine m easurement (mass/volume)Ordered By: Adam Jeanine on 04-03-2024 Creatinine [Mass/Vol] 0.78 mg/dL 0.55-1.02 [facility] Comment on above: The validity of the calculated GFR & GFRAA in patients over 70 years has not been determined. Clinical correlation is essential. Serum or plasma urea nitroge n measurement (mass/volume)Ordered By: Adam Solorzano on 04-03-2024 Urea nitrogen [Mass/Vol] 22 mg/dL High 7-18 [facility] Urinalysis, Completeon 04-03 BACTERIA 0 SEEN Normal None Seen [facility] Comment on above: Order Comment: Urine , Random Result Comment: This specimen has been REJECTED due to Laboratory criteria:MisHandled.LAB STAFF has been notified of need of recollection.04/03/242032 Rosalina Jenkinse Performed By: #### L 501.4405, L3100.5800, L100.0100, L3100.5700, L300.3900, L3100.5500, L501.1000, L501.6710, L400.0001, L501.4100, L101.9900, L501.1105 ####[facility] [address] [place], [place], [phone] EPI,SQUAMOUS 0 SEEN Normal 5-10 [facility] Comment on above: Order Comment: Urine , Random Result Comment: This specimen has been REJECTED due to Laboratory criteria:MisHandled.LAB STAFF has been notified of need of recollection.04/03/242032 Rosalina Jenkinse Performed By: #### L 501.4405, L3100.5800, L100.0100, L3100.5700, L300.3900, L3100.5500, L501.1000, L501.6710, L400.0001, L501.4100, L101.9900, L501.1105 ####[facility] [address] [place], [place], [phone] Mucus Ql (Urine sed) 0 SEEN Normal [facility] Comment on above: Order Comment: Urine , Random Result Comment: This specimen has been REJECTED due to Laboratory criteria:MisHandled.LAB STAFF has been notified of need of recollection.04/03/242032 Rosalina Jenkinse Performed By: #### L 501.4405, L3100.5800, L100.0100, L3100.5700, L300.3900, L3100.5500, L501.1000, L501.6710, L400.0001, L501.4100, L101.9900, L501.1105 ####[facility] [address] [place], [place], [phone] RBC 0 SEEN Normal 0-5 [facility] Comment on above: Order Comment: Urine , Random Result Comment: This specimen has been REJECTED due to Laboratory criteria:MisHandled.LAB STAFF has been notified of need of recollection.04/03/242032 Rosalina Rodriguezhope Performed By: #### L 501.4405, L3100.5800, L100.0100, L3100.5700, L300.3900, L3100.5500, L501.1000, L501.6710, L400.0001, L501.4100, L101.9900, L501.1105 ####[facility] [address] [place], [place], [phone] WBC 0 SEEN Normal 0-5 [facility] Comment on above: Order Comment: Urine , Random Result Comment: This specimen has been REJECTED due to Laboratory criteria:MisHandled.LAB STAFF has been notified of need of recollection.04/03/242032 Rosalina Rodriguezhope Performed By: #### L 501.4405, L3100.5800, L100.0100, L3100.5700, L300.3900, L3100.5500, L501.1000, L501.6710, L400.0001, L501.4100, L101.9900, L501.1105 ####[facility] [address] [place], [place], [phone] BILIRUBIN URINE Normal Negative [facility] Comment on above: Order Comment: Urine , Random Result Comment: This specimen has been REJECTED due to Laboratory criteria:MisHandled.LAB STAFF has been notified of need of recollection.04/03/242032 Rosalina Rodriguezhope Performed By: #### L 501.4405, L3100.5800, L100.0100, L3100.5700, L300.3900, L3100.5500, L501.1000, L501.6710, L400.0001, L501.4100, L101.9900, L501.1105 ####[facility] [address] [place], [place], [address] Clarity (U) Normal Clear [facility] Comment on above: Order Comment: Urine , Random Result Comment: This specimen has been REJECTED due to Laboratory criteria:MisHandled.LAB STAFF has been notified of need of recollection.04/03/242032 Rosalina Wolfhope Performed By: #### L 501.4405, L3100.5800, L100.0100, L3100.5700, L300.3900, L3100.5500, L501.1000, L501.6710, L400.0001, L501.4100, L101.9900, L501.1105 ####[facility] [address] [place], [place], [phone] Color (U) Normal Yellow [facility] Comment on above: Order Comment: Urine , Random Result Comment: This specimen has been REJECTED due to Laboratory criteria:MisHandled.LAB STAFF has been notified of need of recollection.04/03/242032 Rosalina Rodriguezhope Performed By: #### L 501.4405, L3100.5800, L100.0100, L3100.5700, L300.3900, L3100.5500, L501.1000, L501.6710, L400.0001, L501.4100, L101.9900, L501.1105 ####[facility] [address] [place], [place], [address] GLUCOSE, UR Normal Normal [facility] Comment on above: Order Comment: Urine , Random Result Comment: This specimen has been REJECTED due to Laboratory criteria:MisHandled.LAB STAFF has been notified of need of recollection.04/03/242032 Rosalina Wolfhope Performed By: #### L 501.4405, L3100.5800, L100.0100, L3100.5700, L300.3900, L3100.5500, L501.1000, L501.6710, L400.0001, L501.4100, L101.9900, L501.1105 ####[facility] [address] [place], [place], [address] KETONE UR Normal Negative [facility] Comment on above: Order Comment: Urine , Random Result Comment: This specimen has been REJECTED due to Laboratory criteria:MisHandled.LAB STAFF has been notified of need of recollection.04/03/242032 Rosalinastar Rodriguezhope Performed By: #### L 501.4405, L3100.5800, L100.0100, L3100.5700, L300.3900, L3100.5500, L501.1000, L501.6710, L400.0001, L501.4100, L101.9900, L501.1105 ####[facility] [address] [place], [place], [phone] LEUK ESTERASE Normal Negative [facility] Comment on above: Order Comment: Urine , Random Result Comment: This specimen has been REJECTED due to Laboratory criteria:MisHandled.LAB STAFF has been notified of need of recollection.04/03/242032 Rosalina Rodriguezhope Performed By: #### L 501.4405, L3100.5800, L100.0100, L3100.5700, L300.3900, L3100.5500, L501.1000, L501.6710, L400.0001, L501.4100, L101.9900, L501.1105 ####[facility] [address] [place], [place], [address] Nitrite Ql (U) Normal Negative [facility] Comment on above: Order Comment: Urine , Random Result Comment: This specimen has been REJECTED due to Laboratory criteria:MisHandled.LAB STAFF has been notified of need of recollection.04/03/242032 Rosalina Rodriguezhope Performed By: #### L 501.4405, L3100.5800, L100.0100, L3100.5700, L300.3900, L3100.5500, L501.1000, L501.6710, L400.0001, L501.4100, L101.9900, L501.1105 ####[facility] [address] [place], [place], [phone] OCCULT BLOOD-UR Normal Negative [facility] Comment on above: Order Comment: Urine , Random Result Comment: This specimen has been REJECTED due to Laboratory criteria:MisHandled.LAB STAFF has been notified of need of recollection.04/03/242032 Rosalina Jenkinse Performed By: #### L 501.4405, L3100.5800, L100.0100, L3100.5700, L300.3900, L3100.5500, L501.1000, L501.6710, L400.0001, L501.4100, L101.9900, L501.1105 ####[facility] [address] [place], [place], [phone] pH UR Normal 5.0 - 8.0 [facility] Comment on above: Order Comment: Urine , Random Result Comment: This specimen has been REJECTED due to Laboratory criteria:MisHandled.LAB STAFF has been notified of need of recollection.04/03/242032 Rosalina Jenkinse Performed By: #### L 501.4405, L3100.5800, L100.0100, L3100.5700, L300.3900, L3100.5500, L501.1000, L501.6710, L400.0001, L501.4100, L101.9900, L501.1105 ####[facility] [address] [place], [place], [phone] PROT DIPSTX Normal Negative [facility] Comment on above: Order Comment: Urine , Random Result Comment: This specimen has been REJECTED due to Laboratory criteria:MisHandled.LAB STAFF has been notified of need of recollection.04/03/242032 Rosalina Jenkinse Performed By: #### L 501.4405, L3100.5800, L100.0100, L3100.5700, L300.3900, L3100.5500, L501.1000, L501.6710, L400.0001, L501.4100, L101.9900, L501.1105 ####[facility] [address] [place], [place], [id number] SP.GR. DIPSTX Normal 1.002-1.030 [facility] Comment on above: Order Comment: Urine , Random Result Comment: This specimen has been REJECTED due to Laboratory criteria:MisHandled.LAB STAFF has been notified of need of recollection.04/03/242032 Rosalina Rodriguezhope Performed By: #### L 501.4405, L3100.5800, L100.0100, L3100.5700, L300.3900, L3100.5500, L501.1000, L501.6710, L400.0001, L501.4100, L101.9900, L501.1105 ####[facility] [address] [place], [place], [phone] UR Preservative Normal [facility] Comment on above: Order Comment: Urine , Random Result Comment: This specimen has been REJECTED due to Laboratory criteria:MisHandled.LAB STAFF has been notified of need of recollection.04/03/242032 Rosalina Rodriguezhope Performed By: #### L 501.4405, L3100.5800, L100.0100, L3100.5700, L300.3900, L3100.5500, L501.1000, L501.6710, L400.0001, L501.4100, L101.9900, L501.1105 ####[facility] [address] [place], [place], [phone] UROBILI Normal Normal [facility] Comment on above: Order Comment: Urine , Random Result Comment: This specimen has been REJECTED due to Laboratory criteria:MisHandled.LAB STAFF has been notified of need of recollection.04/03/242032 Rosalina Rodriguezhope Performed By: #### L 501.4405, L3100.5800, L100.0100, L3100.5700, L300.3900, L3100.5500, L501.1000, L501.6710, L400.0001, L501.4100, L101.9900, L501.1105 ####[facility] [address] [place], [address] White blood cell (WBC) count Ordered By: Adam Solorzano on 04-03-2024 WBC (Bld) [#/Vol] 4.4 10*3/uL 4.4-11.0 [facility] Carotid Duplex Ultrasoundon 03-29-2024 Carotid Duplex Ultrasound Normal [facility] Protime w/INR Fingerstickon 03-27-2024 INR Coag (PPP) [Relative time] 2.2 {INR} Normal [facility] Comment on above: Result Comment: Crit ical Value > 4.0 Performed By: #### L 9200.0000 ####[facility] [address] [place], [address] Protime Coagsen 23.6 SEC High 11.7-14.9 [facility] Comment on above: Performed By: #### L 9200.0000 ####[facility] [address] [place], [address] INR Coag (BldC) [Relative ti me]Ordered By: Adam Solorzano on 03-21-2024 INR Coag (Bld) [Relative time] 1.7 {INR} [facility] Comment on above: Critical Value > 4.0 PT Coag (Bld) [Time]Ordered By: Adam Solorzano on 03-21-2024 Bedside Prothrombin Time 19.1 SEC High 11.7-14.9 [facility] Prothrombin Time w/INRon INR Normal [facility] Comment on above: Result Comment: ZAINA ERSTICK Performed By: #### L 300.3900 ####[facility] [address] [place], [address] PROTIME Normal 11.7-14.9 [facility] Comment on above: Result Comment: ZAINA ERSTICK Performed By: #### L 300.3900 ####[facility] [address] [place], [address] Protime w/INR Fingerstickon 03-21-2024 INR Coag (PPP) [Relative time] 1.7 {INR} Normal [facility] Comment on above: Result Comment: Crit ical Value > 4.0 Performed By: #### L 9200.0000 ####[facility] [address] [place], [address] Protime Coagsen 19.1 SEC High 11.7-14.9 [facility] Comment on above: Performed By: #### L 9200.0000 ####[facility] [address] [place], [address] Prothrombin Time w/INRon INR Coag (PPP) [Relative time] 2.2 {INR} Normal [facility] Comment on above: Performed By: #### L 300.3900 ####[facility] [address] [place], [address] PT Coag (PPP) [Time] 23.9 s High 11.7-14.9 [facility] Comment on above: Performed By: #### L 300.3900 ####[facility] [address] [place], [address] Prothrombin timeOrdered By: Adam Solorzano on 03-13-2024 PT Coag (PPP) [Time] 23.9 s High 11.7-14.9 [facility] Prothrombin Time w/INRon INR Coag (PPP) [Relative time] 2.1 {INR} Normal [facility] Comment on above: Performed By: #### L 300.3900 ####[facility] [address] [place], [address] PT Coag (PPP) [Time] 23.0 s High 11.7-14.9 [facility] Comment on above: Performed By: #### L 300.3900 ####[facility] [address] [place], [address] Absolute neutrophil countOrd ered By: Bhupinder Hamlin on 03-02-2024 Neutrophils (Bld) [#/Vol] 4.3 10*3/uL 2.0-7.7 [facility] Albumin to globulin ratioOrd ered By: Bhupinder Hamlin on 03-02-2024 Albumin/Globulin [Mass ratio] 1.3 {ratio} 0.9-2.4 [facility] Basophil percentageOrdered B y: Bhupinder Hamlin on 03-02-2024 Basophils/100 WBC (Bld) 0.5 % 0-1 [facility] Bilirubin, totalOrdered By: Bhupinder Hamlin on 03-02-2024 Bilirubin [Mass/Vol] 0.70 mg/dL 0.20-1.00 [facility] Comment on above: For patients on eltr ombopag therapy, use of Dimension [place] TBIL is not recommended. Blood urea nitrogen (BUN)/cr eatinine ratioOrdered By: Bhupinder Hamlin on 03-02-2024 Urea nitrogen/Creatinine [Mass ratio] 20.5 mg/mg High 10-20 [facility] CBC W/Diff, Automatedon 02-19 Absolute Lymph 1.17 X10 3/uL Normal 0.83-4.51 [facility] Comment on above: Order Comment: Order Date: 02/10/24Order Info: 0184-1 - CBCD Performed By: #### L 503.6150, L503.6075, L503.6550, L506.0250, L503.0105, L100.0100, L500.4050, L500.4100 ####[facility] [address] [place], [address] Performed By: #### L 503.6550, L100.0100, L503.0105, L503.6150, L506.0250, L503.6075, L500.4050, L500.4100 ####[facility] [address] [place], [address] Absolute Neut 4.3 X10 3/uL Normal 2.0-7.7 [facility] Comment on above: Order Comment: Order Date: 02/10/24Order Info: 018- - CBCD Performed By: #### L 503.6150, L503.6075, L503.6550, L506.0250, L503.0105, L100.0100, L500.4050, L500.4100 ####[facility] [address] [place], [address] Performed By: #### L 503.6550, L100.0100, L503.0105, L503.6150, L506.0250, L503.6075, L500.4050, L500.4100 ####[facility] [address] [facility] [place], [address] Basophils/100 WBC (Bld) 0.5 % Normal 0-1 [facility] Comment on above: Order Comment: Order Date: 02/10/24Order Info: 018- - CBCD Performed By: #### L 503.6150, L503.6075, L503.6550, L506.0250, L503.0105, L100.0100, L500.4050, L500.4100 ####[facility] [address] [place], [address] Performed By: #### L 503.6550, L100.0100, L503.0105, L503.6150, L506.0250, L503.6075, L500.4050, L500.4100 ####[facility] [address] [facility] [address] [place], [address] Eosinophils/100 WBC (Bld) 2.3 % Normal 0-5 [facility] Comment on above: Order Comment: Order Date: 02/10/24Order Info: 0184-1 - CBCD Performed By: #### L 503.6150, L503.6075, L503.6550, L506.0250, L503.0105, L100.0100, L500.4050, L500.4100 ####[facility] [address] [place], [place], [phone] Performed By: #### L 503.6550, L100.0100, L503.0105, L503.6150, L506.0250, L503.6075, L500.4050, L500.4100 ####[facility] [address] [place], [address] Erythrocyte distribution width (RBC) [Ratio] 14.6 % Normal 11.6-14.6 [facility] Comment on above: Order Comment: Order Date: 02/10/24Order Info: 0184-1 - CBCD Performed By: #### L 503.6150, L503.6075, L503.6550, L506.0250, L503.0105, L100.0100, L500.4050, L500.4100 ####[facility] [address] [place], [address] Performed By: #### L 503.6550, L100.0100, L503.0105, L503.6150, L506.0250, L503.6075, L500.4050, L500.4100 ####[facility] [address] [place], [place], [phone] Hematocrit (Bld) [Volume fraction] 40.1 % Normal 37-47 [facility] Comment on above: Order Comment: Order Date: 02/10/24Order Info: 0184-1 - CBCD Performed By: #### L 503.6150, L503.6075, L503.6550, L506.0250, L503.0105, L100.0100, L500.4050, L500.4100 ####[facility] [address] [place], [address] Performed By: #### L 503.6550, L100.0100, L503.0105, L503.6150, L506.0250, L503.6075, L500.4050, L500.4100 ####[facility] [address] [place], [address] Hemoglobin (Bld) [Mass/Vol] 13.2 g/dL Normal 12.0-15.0 [facility] Comment on above: Order Comment: Order Date: 02/10/24Order Info: 0184-1 - CBCD Performed By: #### L 503.6150, L503.6075, L503.6550, L506.0250, L503.0105, L100.0100, L500.4050, L500.4100 ####[facility] [address] [facility] [place], [address] Performed By: #### L 503.6550, L100.0100, L503.0105, L503.6150, L506.0250, L503.6075, L500.4050, L500.4100 ####[facility] [address] [place], [place], [id number] IG% 0.500 Normal 0.0-0.9 [facility] Comment on above: Order Comment: Order Date: 02/10/24Order Info: 0184-1 - CBCD Result Comment: IG% - Immature Granulocytes (promyelocytes, myelocytes andmetamyelocytes) > 1% indicates that a LEFT SHIFT is Present. Performed By: #### L 503.6150, L503.6075, L503.6550, L506.0250, L503.0105, L100.0100, L500.4050, L500.4100 ####[facility] [address] [place], [address] Performed By: #### L 503.6550, L100.0100, L503.0105, L503.6150, L506.0250, L503.6075, L500.4050, L500.4100 ####[facility] [address] [place], [address] Lymphocytes/100 WBC (Bld) 19.4 % Normal 19-41 [facility] Comment on above: Order Comment: Order Date: 02/10/24Order Info: 018- - CBCD Performed By: #### L 503.6150, L503.6075, L503.6550, L506.0250, L503.0105, L100.0100, L500.4050, L500.4100 ####[facility] [address] [place], [address] Performed By: #### L 503.6550, L100.0100, L503.0105, L503.6150, L506.0250, L503.6075, L500.4050, L500.4100 ####[facility] [address] [place], [address] MCH (RBC) [Entitic mass] 27.4 pg Normal 27.0-32.0 [facility] Comment on above: Order Comment: Order Date: 02/10/24Order Info: 0184- - CBCD Performed By: #### L 503.6150, L503.6075, L503.6550, L506.0250, L503.0105, L100.0100, L500.4050, L500.4100 ####[facility] [address] [place], [address] Performed By: #### L 503.6550, L100.0100, L503.0105, L503.6150, L506.0250, L503.6075, L500.4050, L500.4100 ####[facility] [address] [place], [address] MCHC (RBC) [Mass/Vol] 32.9 g/dL Normal 32-36 [facility] Comment on above: Order Comment: Order Date: 02/10/24Order Info: 4-1 - CBCD Performed By: #### L 503.6150, L503.6075, L503.6550, L506.0250, L503.0105, L100.0100, L500.4050, L500.4100 ####[facility] [address] [place], [address] Performed By: #### L 503.6550, L100.0100, L503.0105, L503.6150, L506.0250, L503.6075, L500.4050, L500.4100 ####[facility] [address] [place], [address] MCV (RBC) [Entitic vol] 83.4 fL Normal 81-99 [facility] Comment on above: Order Comment: Order Date: 02/10/24Order Info: 018- - CBCD Performed By: #### L 503.6150, L503.6075, L503.6550, L506.0250, L503.0105, L100.0100, L500.4050, L500.4100 ####[facility] [address] [place], [address]( Performed By: #### L 503.6550, L100.0100, L503.0105, L503.6150, L506.0250, L503.6075, L500.4050, L500.4100 ####[facility] [address] [place], [address] Monocytes/100 WBC (Bld) 5.3 % Normal 0-10 [facility] Comment on above: Order Comment: Order Date: 02/10/24Order Info: 0184-1 - CBCD Performed By: #### L 503.6150, L503.6075, L503.6550, L506.0250, L503.0105, L100.0100, L500.4050, L500.4100 ####[facility] [address] [place], [address] Performed By: #### L 503.6550, L100.0100, L503.0105, L503.6150, L506.0250, L503.6075, L500.4050, L500.4100 ####[facility] [address] [place], [address] Neutrophils/100 WBC (Bld) 72.0 % High 47-70 [facility] Comment on above: Order Comment: Order Date: 02/10/24Order Info: 018-1 - CBCD Performed By: #### L 503.6150, L503.6075, L503.6550, L506.0250, L503.0105, L100.0100, L500.4050, L500.4100 ####[facility] [address] [place], [place], [id number] Performed By: #### L 503.6550, L100.0100, L503.0105, L503.6150, L506.0250, L503.6075, L500.4050, L500.4100 ####[facility] [address] [place], [address] Nucleated RBC (Bld) [#/Vol] 0 10*3/uL Normal 0-5 [facility] Comment on above: Order Comment: Order Date: 02/10/24Order Info: 0184-1 - CBCD Performed By: #### L 503.6150, L503.6075, L503.6550, L506.0250, L503.0105, L100.0100, L500.4050, L500.4100 ####[facility] [address] [place], [place], [address] Performed By: #### L 503.6550, L100.0100, L503.0105, L503.6150, L506.0250, L503.6075, L500.4050, L500.4100 ####[facility] [address] [place], [place], [address] Platelet mean volume (Bld) [Entitic vol] 9.5 fL Normal 6.2-12.0 [facility] Comment on above: Order Comment: Order Date: 02/10/24Order Info: 0184-1 - CBCD Performed By: #### L 503.6150, L503.6075, L503.6550, L506.0250, L503.0105, L100.0100, L500.4050, L500.4100 ####[facility] [address] [place], [address] Performed By: #### L 503.6550, L100.0100, L503.0105, L503.6150, L506.0250, L503.6075, L500.4050, L500.4100 ####[facility] [address] [place], [address] Platelets (Bld) [#/Vol] 204 10*3/uL Normal 150-450 [facility] Comment on above: Order Comment: Order Date: 02/10/24Order Info: 018-1 - CBCD Performed By: #### L 503.6150, L503.6075, L503.6550, L506.0250, L503.0105, L100.0100, L500.4050, L500.4100 ####[facility] [address] [place], [place], [id number] Performed By: #### L 503.6550, L100.0100, L503.0105, L503.6150, L506.0250, L503.6075, L500.4050, L500.4100 ####[facility] [address] [place], [address] RBC (Bld) [#/Vol] 4.81 10*6/uL Normal 4.2-5.4 [facility] Comment on above: Order Comment: Order Date: 02/10/24Order Info: 0184-1 - CBCD Performed By: #### L 503.6150, L503.6075, L503.6550, L506.0250, L503.0105, L100.0100, L500.4050, L500.4100 ####[facility] [address] [place], [address] Performed By: #### L 503.6550, L100.0100, L503.0105, L503.6150, L506.0250, L503.6075, L500.4050, L500.4100 ####[facility] [address] [place], [address] RDW SD 44.1 fl High 35.1-43.9 [facility] Comment on above: Order Comment: Order Date: 02/10/24Order Info: [id number] - CBCD Performed By: #### L 503.6150, L503.6075, L503.6550, L506.0250, L503.0105, L100.0100, L500.4050, L500.4100 ####[facility] [address] [place], [address] Performed By: #### L 503.6550, L100.0100, L503.0105, L503.6150, L506.0250, L503.6075, L500.4050, L500.4100 ####[facility] [address] [place], [address] WBC (Bld) [#/Vol] 6.0 10*3/uL Normal 4.4-11.0 [facility] Comment on above: Order Comment: Order Date: 02/10/24Order Info: [id number] - CBCD Performed By: #### L 503.6150, L503.6075, L503.6550, L506.0250, L503.0105, L100.0100, L500.4050, L500.4100 ####[facility] [address] [place], [place], [id number] Performed By: #### L 503.6550, L100.0100, L503.0105, L503.6150, L506.0250, L503.6075, L500.4050, L500.4100 ####[facility] [address] [place], [place], [id number] Carbon dioxide measurementOr dered By: Bhupinder Hamlin on 03-02-2024 CO2 [Moles/Vol] 27.0 mmol/L 21.0-32.0 [facility] Chloride measurementOrdered By: Bhupinder Hamlin on 03-02-2024 Chloride [Moles/Vol] 105 mmol/L 98-107 [facility] Comprehensive Metabolic Prof ilon 03-02-2024 Albumin [Mass/Vol] 4.0 g/dL Normal 3.2-5.0 [facility] Comment on above: Order Comment: Order Date: 02/10/24Order Info: [id number] - CMPOrder Info: [id number] - LIPIDOrder Info: [id number] - TIBCOrder Info: [id number] - FEOrder Info: [id number] - FEROrder Info: [id number] - FOLSN Performed By: #### L 503.6150, L503.6075, L503.6550, L506.0250, L503.0105, L100.0100, L500.4050, L500.4100 ####[facility] [address] [place], [place], [phone] Performed By: #### L 503.6550, L100.0100, L503.0105, L503.6150, L506.0250, L503.6075, L500.4050, L500.4100 ####[facility] [address] [place], [address] Albumin/Globulin [Mass ratio] 1.3 {ratio} Normal 0.9-2.4 [facility] Comment on above: Order Comment: Order Date: 02/10/24Order Info: 0786 - CMPOrder Info: [id number] - LIPIDOrder Info: [id number] - TIBCOrder Info: 2497-06 - FEOrder Info: [id number] - FEROrder Info: 2283-10 - FOLSN Performed By: #### L 503.6150, L503.6075, L503.6550, L506.0250, L503.0105, L100.0100, L500.4050, L500.4100 ####[facility] [address] [place], [address] Performed By: #### L 503.6550, L100.0100, L503.0105, L503.6150, L506.0250, L503.6075, L500.4050, L500.4100 ####[facility] [address] [place], [address] ALK P 97 U/L Normal 45-117 [facility] Comment on above: Order Comment: Order Date: 02/10/24Order Info: 0786 - CMPOrder Info: [id number] - LIPIDOrder Info: [id number] - TIBCOrder Info: 2497-06 - FEOrder Info: 2275-06 - FEROrder Info: 2283-10 - FOLSN Performed By: #### L 503.6150, L503.6075, L503.6550, L506.0250, L503.0105, L100.0100, L500.4050, L500.4100 ####[facility] [address] [place], [address] Performed By: #### L 503.6550, L100.0100, L503.0105, L503.6150, L506.0250, L503.6075, L500.4050, L500.4100 ####[facility] [address] [place], [place], [phone] ALT [Catalytic activity/Vol] 39 U/L Normal 13-56 [facility] Comment on above: Order Comment: Order Date: 02/10/24Order Info: 0786- - CMPOrder Info: [id number] - LIPIDOrder Info: [id number] - TIBCOrder Info: 2497-06 - FEOrder Info: [id number] - FEROrder Info: 2283-10 - FOLSN Performed By: #### L 503.6150, L503.6075, L503.6550, L506.0250, L503.0105, L100.0100, L500.4050, L500.4100 ####[facility] [address] [place], [place], [address] Performed By: #### L 503.6550, L100.0100, L503.0105, L503.6150, L506.0250, L503.6075, L500.4050, L500.4100 ####[facility] [address] [place], [place], [phone] AST [Catalytic activity/Vol] 31 U/L Normal 15-37 [facility] Comment on above: Order Comment: Order Date: 02/10/24Order Info: 0786- - CMPOrder Info: [id number] - LIPIDOrder Info: [id number] - TIBCOrder Info: 2497-06 - FEOrder Info: [id number] - FEROrder Info: 2283-10 - FOLSN Performed By: #### L 503.6150, L503.6075, L503.6550, L506.0250, L503.0105, L100.0100, L500.4050, L500.4100 ####[facility] [address] [place], [place], [address] Performed By: #### L 503.6550, L100.0100, L503.0105, L503.6150, L506.0250, L503.6075, L500.4050, L500.4100 ####[facility] [address] [place], [place], [id number] Bilirubin [Mass/Vol] 0.70 mg/dL Normal 0.20-1.00 [facility] Comment on above: Order Comment: Order Date: 02/10/24Order Info: 0786- - CMPOrder Info: [id number] - LIPIDOrder Info: [id number] - TIBCOrder Info: 2497-06 - FEOrder Info: [id number] - FEROrder Info: 2283-10 - FOLSN Result Comment: For patients on eltrombopag therapy, use of Dimension [place] TBIL is not recommended. Performed By: #### L 503.6150, L503.6075, L503.6550, L506.0250, L503.0105, L100.0100, L500.4050, L500.4100 ####[facility] [address] [place], [address] Performed By: #### L 503.6550, L100.0100, L503.0105, L503.6150, L506.0250, L503.6075, L500.4050, L500.4100 ####[facility] [address] [place], [place], [phone] BUN/CRE 20.5 RATIO High 10-20 [facility] Comment on above: Order Comment: Order Date: 02/10/24Order Info: 0786- - CMPOrder Info: [id number] - LIPIDOrder Info: [id number] - TIBCOrder Info: 2497-06 - FEOrder Info: [id number] - FEROrder Info: 2283-10 - FOLSN Performed By: #### L 503.6150, L503.6075, L503.6550, L506.0250, L503.0105, L100.0100, L500.4050, L500.4100 ####[facility] [address] [place], [address] Performed By: #### L 503.6550, L100.0100, L503.0105, L503.6150, L506.0250, L503.6075, L500.4050, L500.4100 ####[facility] [address] [place], [address] CA,Total 9.4 mg/dL Normal 8.5-10.1 [facility] Comment on above: Order Comment: Order Date: 02/10/24Order Info: [id number] - CMPOrder Info: [id number] - LIPIDOrder Info: [id number] - TIBCOrder Info: 2497-06 - FEOrder Info: 2275-06 - FEROrder Info: 2283-10 - FOLSN Performed By: #### L 503.6150, L503.6075, L503.6550, L506.0250, L503.0105, L100.0100, L500.4050, L500.4100 ####[facility] [address] [place], [address] Performed By: #### L 503.6550, L100.0100, L503.0105, L503.6150, L506.0250, L503.6075, L500.4050, L500.4100 ####[facility] [address] [place], [address] Chloride [Moles/Vol] 105 mmol/L Normal 98-107 [facility] Comment on above: Order Comment: Order Date: 02/10/24Order Info: [id number] - CMPOrder Info: [id number] - LIPIDOrder Info: [id number] - TIBCOrder Info: 2497-06 - FEOrder Info: 2275-06 - FEROrder Info: 2284-8 - FOLSN Performed By: #### L 503.6150, L503.6075, L503.6550, L506.0250, L503.0105, L100.0100, L500.4050, L500.4100 ####[facility] [address] [place], [place], [phone] Performed By: #### L 503.6550, L100.0100, L503.0105, L503.6150, L506.0250, L503.6075, L500.4050, L500.4100 ####[facility] [address] [place], [place], [address] CO2 [Moles/Vol] 27.0 mmol/L Normal 21.0-32.0 [facility] Comment on above: Order Comment: Order Date: 02/10/24Order Info: 0786-1 - CMPOrder Info: [id number] - LIPIDOrder Info: [id number] - TIBCOrder Info: 2498-4 - FEOrder Info: 2276-4 - FEROrder Info: 2284-8 - FOLSN Performed By: #### L 503.6150, L503.6075, L503.6550, L506.0250, L503.0105, L100.0100, L500.4050, L500.4100 ####[facility] [address] [place], [place], [address] Performed By: #### L 503.6550, L100.0100, L503.0105, L503.6150, L506.0250, L503.6075, L500.4050, L500.4100 ####[facility] [address] [place], [address] Creatinine [Mass/Vol] 0.93 mg/dL Normal 0.55-1.02 [facility] Comment on above: Order Comment: Order Date: 02/10/24Order Info: [id number] - CMPOrder Info: [id number] - LIPIDOrder Info: 2499- - TIBCOrder Info: [id number] - FEOrder Info: 2275-06 - FEROrder Info: 2283-10 - FOLSN Result Comment: The validity of the calculated GFR GFRAA in patients over70 years has not been determined. Clinical correlation isessential. Performed By: #### L 503.6150, L503.6075, L503.6550, L506.0250, L503.0105, L100.0100, L500.4050, L500.4100 ####[facility] [address] [place], [address] Performed By: #### L 503.6550, L100.0100, L503.0105, L503.6150, L506.0250, L503.6075, L500.4050, L500.4100 ####[facility] [address] [place], [address] ECRCL 68.01 ml/min Normal [facility] Comment on above: Order Comment: Order Date: 02/10/24Order Info: [id number] - CMPOrder Info: [id number] - LIPIDOrder Info: [id number] - TIBCOrder Info: 2497-06 - FEOrder Info: 2275-06 - FEROrder Info: 2283-10 - FOLSN Performed By: #### L 503.6150, L503.6075, L503.6550, L506.0250, L503.0105, L100.0100, L500.4050, L500.4100 ####[facility] [address] [place], [address] Performed By: #### L 503.6550, L100.0100, L503.0105, L503.6150, L506.0250, L503.6075, L500.4050, L500.4100 ####[facility] [address] [place], [address] EST GFR - AA 82 mL/min Normal >60 [facility] Comment on above: Order Comment: Order Date: 02/10/24Order Info: [id number] - CMPOrder Info: [id number] - LIPIDOrder Info: [id number] - TIBCOrder Info: 2497-06 - FEOrder Info: 2275-06 - FEROrder Info: 2283-10 - FOLSN Result Comment: Afri can Prydeinig GFR Calc Performed By: #### L 503.6150, L503.6075, L503.6550, L506.0250, L503.0105, L100.0100, L500.4050, L500.4100 ####[facility] [address] [place], [place], [phone] Performed By: #### L 503.6550, L100.0100, L503.0105, L503.6150, L506.0250, L503.6075, L500.4050, L500.4100 ####[facility] [address] [place], [place], [phone] GAP 5 Normal 5-15 [facility] Comment on above: Order Comment: Order Date: 02/10/24Order Info: [id number] - CMPOrder Info: [id number] - LIPIDOrder Info: [id number] - TIBCOrder Info: 2497-06 - FEOrder Info: 2275-06 - FEROrder Info: 2283-10 - FOLSN Performed By: #### L 503.6150, L503.6075, L503.6550, L506.0250, L503.0105, L100.0100, L500.4050, L500.4100 ####[facility] [address] [place], [place], [phone] Performed By: #### L 503.6550, L100.0100, L503.0105, L503.6150, L506.0250, L503.6075, L500.4050, L500.4100 ####[facility] [address] [place], [place], [phone] GFR/1.73 sq M.predicted among non-blacks MDRD (S/P/Bld) [Vol rate/Area] 68 mL/min/{1.73_m2} Normal >60 [facility] Comment on above: Order Comment: Order Date: 02/10/24Order Info: 0786- - CMPOrder Info: [id number] - LIPIDOrder Info: [id number] - TIBCOrder Info: 2497-06 - FEOrder Info: 2275-06 - FEROrder Info: 2283-10 - FOLSN Result Comment: Non- GFR Calc Performed By: #### L 503.6150, L503.6075, L503.6550, L506.0250, L503.0105, L100.0100, L500.4050, L500.4100 ####[facility] [address] [place], [place], [phone] Performed By: #### L 503.6550, L100.0100, L503.0105, L503.6150, L506.0250, L503.6075, L500.4050, L500.4100 ####[facility] [address] [place], [address] Globulin (S) [Mass/Vol] 3.1 g/dL Normal 2.2-4.2 [facility] Comment on above: Order Comment: Order Date: 02/10/24Order Info: 0786 - CMPOrder Info: [id number] - LIPIDOrder Info: [id number] - TIBCOrder Info: 2497-06 - FEOrder Info: 2275-06 - FEROrder Info: 2283-10 - FOLSN Performed By: #### L 503.6150, L503.6075, L503.6550, L506.0250, L503.0105, L100.0100, L500.4050, L500.4100 ####[facility] [address] [place], [place], [phone]) Performed By: #### L 503.6550, L100.0100, L503.0105, L503.6150, L506.0250, L503.6075, L500.4050, L500.4100 ####[facility] [address] [place], [address] Glucose [Mass/Vol] 112 mg/dL High 74-106 [facility] Comment on above: Order Comment: Order Date: 02/10/24Order Info: 0786 - CMPOrder Info: [id number] - LIPIDOrder Info: [id number] - TIBCOrder Info: 2497-06 - FEOrder Info: 2275-06 - FEROrder Info: 2283-10 - FOLSN Result Comment: Fast ing Glucose result from 100 to 125 mg/dLsuggests IMPAIRED HOMEOSTASIS per A.D.A. criteria. Performed By: #### L 503.6150, L503.6075, L503.6550, L506.0250, L503.0105, L100.0100, L500.4050, L500.4100 ####[facility] [address] [place], [address] Performed By: #### L 503.6550, L100.0100, L503.0105, L503.6150, L506.0250, L503.6075, L500.4050, L500.4100 ####[facility] [address] [place], [address] Potassium [Moles/Vol] 4.3 mmol/L Normal 3.5-5.1 [facility] Comment on above: Order Comment: Order Date: 02/10/24Order Info: 0786- - CMPOrder Info: [id number] - LIPIDOrder Info: [id number] - TIBCOrder Info: 2497-06 - FEOrder Info: 2275-06 - FEROrder Info: 2283-10 - FOLSN Performed By: #### L 503.6150, L503.6075, L503.6550, L506.0250, L503.0105, L100.0100, L500.4050, L500.4100 ####[facility] [address] [place], [place], [phone] Performed By: #### L 503.6550, L100.0100, L503.0105, L503.6150, L506.0250, L503.6075, L500.4050, L500.4100 ####[facility] [address] [place], [place], [address] Sodium [Moles/Vol] 138 mmol/L Normal 136-145 [facility] Comment on above: Order Comment: Order Date: 02/10/24Order Info: 0786- - CMPOrder Info: [id number] - LIPIDOrder Info: [id number] - TIBCOrder Info: 2497-06 - FEOrder Info: 2275-06 - FEROrder Info: 2283-10 - FOLSN Performed By: #### L 503.6150, L503.6075, L503.6550, L506.0250, L503.0105, L100.0100, L500.4050, L500.4100 ####[facility] [address] [place], [place], [phone] Performed By: #### L 503.6550, L100.0100, L503.0105, L503.6150, L506.0250, L503.6075, L500.4050, L500.4100 ####[facility] [address] [place], [place], [phone] T PROT 7.1 g/dL Normal 6.4-8.2 [facility] Comment on above: Order Comment: Order Date: 02/10/24Order Info: [id number] - CMPOrder Info: [id number] - LIPIDOrder Info: [id number] - TIBCOrder Info: 2497-06 - FEOrder Info: 2275-06 - FEROrder Info: 2283-10 - FOLSN Performed By: #### L 503.6150, L503.6075, L503.6550, L506.0250, L503.0105, L100.0100, L500.4050, L500.4100 ####[facility] [address] [place], [place], [phone] Performed By: #### L 503.6550, L100.0100, L503.0105, L503.6150, L506.0250, L503.6075, L500.4050, L500.4100 ####[facility] [address] [place], [address] Urea nitrogen [Mass/Vol] 19 mg/dL High 7-18 [facility] Comment on above: Order Comment: Order Date: 02/10/24Order Info: [id number] - CMPOrder Info: [id number] - LIPIDOrder Info: 2500-7 - TIBCOrder Info: 2498-4 - FEOrder Info: 2276-4 - FEROrder Info: 2284-8 - FOLSN Performed By: #### L 503.6150, L503.6075, L503.6550, L506.0250, L503.0105, L100.0100, L500.4050, L500.4100 ####[facility] [address] [place], [place], [id number] Performed By: #### L 503.6550, L100.0100, L503.0105, L503.6150, L506.0250, L503.6075, L500.4050, L500.4100 ####[facility] [address] [place], [place], [phone] Eosinophil percentageOrdered By: Bhupinder Hamlin on 03-02-2024 Eosinophils/100 WBC (Bld) 2.3 % 0-5 [facility] Erythrocyte distribution wid th ratioOrdered By: Bhupinder Hamlin on 03-02-2024 Erythrocyte distribution width (RBC) [Ratio] 14.6 % 11.6-14.6 [facility] Erythrocyte distribution wid th standard deviationOrdered By: Bhupinder Hamlin on 03-02-2024 Erythrocyte distribution width (RBC) [Entitic vol] 44.1 fL High 35.1-43.9 [facility] Estimated glomerular filtrat ion rate (GFR) AmericanOrdered By: Bhupinder Hamlin on 03-02-2024 Estimated GFR (MDRD) Amer 82 mL/min >60 [facility] Comment on above: GFR Calc Estimation of creatinine deny aranceOrdered By: Bhupinder Hamlin on 03-02-2024 Estimated Creatinine Clearance Calc 68.01 ml/min [facility] Ferritinon 03-02-2024 Ferritin [Mass/Vol] 823 ng/mL High 8252 [facility] Comment on above: Order Comment: Order Date: 02/10/24Order Info: [id number] - CMPOrder Info: [id number] - LIPIDOrder Info: [id number] - TIBCOrder Info: 2498-4 - FEOrder Info: 2276-4 - FEROrder Info: 2284-8 - FOLSN Performed By: #### L 503.6150, L503.6075, L503.6550, L506.0250, L503.0105, L100.0100, L500.4050, L500.4100 ####[facility] [address] [place], [place], [address] Performed By: #### L 503.6550, L100.0100, L503.0105, L503.6150, L506.0250, L503.6075, L500.4050, L500.4100 ####[facility] [address] [facility] [address] [place], [place], [address] Ferritin measurementOrdered By: Bhupinder Hamlin on 03-02-2024 Ferritin [Mass/Vol] 823 ng/mL High 8252 [facility] Folates, (Folic Acid)on 02-19 FOLATES 5.20 ng/mL Normal 3.1-55.4 [facility] Comment on above: Order Comment: Order Date: 02/10/24Order Info: [id number] - CMPOrder Info: [id number] - LIPIDOrder Info: [id number] - TIBCOrder Info: 2498-4 - FEOrder Info: 2276-4 - FEROrder Info: 2284-8 - FOLSN Performed By: #### L 503.6150, L503.6075, L503.6550, L506.0250, L503.0105, L100.0100, L500.4050, L500.4100 ####[facility] [address] [place], [place], [address] Performed By: #### L 503.6550, L100.0100, L503.0105, L503.6150, L506.0250, L503.6075, L500.4050, L500.4100 ####[facility] [address] [place], [place], [phone] Folic acid measurementOrdere d By: Bhupinder Hamlin on 03-02-2024 Folate 5.20 ng/mL 3.1-55.4 [facility] Glomerular filtration rate ( GFR) estimationOrdered By: Bhupinder Hamlin on 03-02-2024 Estimated GFR (MDRD) Non-Af Amer 68 mL/min >60 [facility] Comment on above: Non- GFR Calc Glucose measurementOrdered B y: Bhupinder Hamlin on 03-02-2024 Glucose [Mass/Vol] 112 mg/dL High 74-106 [facility] Comment on above: Fasting Glucose resu lt from 100 to 125 mg/dL suggests IMPAIRED HOMEOSTASIS per A.D.A. criteria. Hematocrit Auto (Bld) [Volum e fraction]Ordered By: Bhupinder Hamlin on 03-02-2024 Hematocrit (Bld) [Volume fraction] 40.1 % 37-47 [facility] Hemoglobin measurementOrdere d By: Bhupinder Hamlin on 03-02-2024 Hemoglobin (Bld) [Mass/Vol] 13.2 g/dL 12.0-15.0 [facility] High density lipoprotein (HD L) measurementOrdered By: Bhupinder Hamlin on 03-02-2024 Cholesterol in HDL [Mass/Vol] 51 mg/dL >40 [facility] Comment on above: The drugs N-Acetylcy steine and Metamizole may falsely depress this assay. Reference Range HDL <40 mg/dL Low HDL Cholesterol HDL >or= 60 mg/dL High HDL Cholesterol Immature granulocytes/100 WB C Auto (Bld)Ordered By: Bhupinder Hamlin on 03-02-2024 Immature granulocytes/100 WBC (Bld) 0.500 % 0.0-0.9 [facility] Comment on above: IG% - Immature Granu locytes (promyelocytes, myelocytes and metamyelocytes) > 1% indicates that a LEFT SHIFT is Present. Ironon 03-02-2024 Iron [Mass/Vol] 42 ug/dL Low 50-170 [facility] Comment on above: Order Comment: Order Date: 02/10/24Order Info: [id number] - CMPOrder Info: [id number] - LIPIDOrder Info: [id number] - TIBCOrder Info: 2498-4 - FEOrder Info: 2276-4 - FEROrder Info: 2284-8 - FOLSN Performed By: #### L 503.6150, L503.6075, L503.6550, L506.0250, L503.0105, L100.0100, L500.4050, L500.4100 ####[facility] [address] [place], [place], [phone] Performed By: #### L 503.6550, L100.0100, L503.0105, L503.6150, L506.0250, L503.6075, L500.4050, L500.4100 ####[facility] [address] [place], [address] Iron (Unsp spec) [Mass/Mass] Ordered By: Bhupinder Hamlin on 03-02-2024 Iron [Mass/Vol] 42 ug/dL Low 50-170 [facility] Iron Binding Capacity,Totalo n 03-02-2024 TIBC 265 ug/dL Normal 250-450 [facility] Comment on above: Order Comment: Order Date: 02/10/24Order Info: [id number] - CMPOrder Info: [id number] - LIPIDOrder Info: 2500- - TIBCOrder Info: [id number] - FEOrder Info: 2275-06 - FEROrder Info: 2283-10 - FOLSN Performed By: #### L 503.6150, L503.6075, L503.6550, L506.0250, L503.0105, L100.0100, L500.4050, L500.4100 ####[facility] [address] [place], [place], [phone] Performed By: #### L 503.6550, L100.0100, L503.0105, L503.6150, L506.0250, L503.6075, L500.4050, L500.4100 ####[facility] [address] [place], [place], [phone] Laboratory - Chemistry and C hemistry - challengeOrdered By: Bhupinder Hamlin on 03-02-2024 AST [Catalytic activity/Vol] 31 U/L 15-37 [facility] Lipid Profileon 03-02-2024 Cholesterol [Mass/Vol] 138 mg/dL Normal 200 [facility] Comment on above: Order Comment: Order Date: 02/10/24Order Info: [id number] - CMPOrder Info: [id number] - LIPIDOrder Info: 2500 - TIBCOrder Info: 2497-06 - FEOrder Info: 2275-06 - FEROrder Info: 2283-10 - FOLSN Result Comment: <200 mg/dL Desirable 200-240 mg/dL Borderline >240 mg/dL High Risk Performed By: #### L 503.6150, L503.6075, L503.6550, L506.0250, L503.0105, L100.0100, L500.4050, L500.4100 ####[facility] [address] [place], [place], [phone] Performed By: #### L 503.6550, L100.0100, L503.0105, L503.6150, L506.0250, L503.6075, L500.4050, L500.4100 ####[facility] [address] [place], [address] Cholesterol in HDL [Mass/Vol] 51 mg/dL Normal [facility] Comment on above: Order Comment: Order Date: 02/10/24Order Info: 0786- - CMPOrder Info: [id number] - LIPIDOrder Info: [id number] - TIBCOrder Info: 2497-06 - FEOrder Info: [id number] - FEROrder Info: 2283-10 - FOLSN Result Comment: The drugs N-Acetylcysteine and Metamizole may falselydepress this assay. Reference Range HDL <40 mg/dL Low HDL Cholesterol HDL >or= 60 mg/dL High HDL Cholesterol Performed By: #### L 503.6150, L503.6075, L503.6550, L506.0250, L503.0105, L100.0100, L500.4050, L500.4100 ####[facility] [address] [place], [address] Performed By: #### L 503.6550, L100.0100, L503.0105, L503.6150, L506.0250, L503.6075, L500.4050, L500.4100 ####[facility] [address] [place], [address] Cholesterol in LDL [Mass/Vol] 58 mg/dL Normal 0-130 [facility] Comment on above: Order Comment: Order Date: 02/10/24Order Info: 0786- - CMPOrder Info: [id number] - LIPIDOrder Info: [id number] - TIBCOrder Info: 2497-06 - FEOrder Info: 2275-06 - FEROrder Info: 2283-10 - FOLSN Performed By: #### L 503.6150, L503.6075, L503.6550, L506.0250, L503.0105, L100.0100, L500.4050, L500.4100 ####[facility] [address] [place], [address] Performed By: #### L 503.6550, L100.0100, L503.0105, L503.6150, L506.0250, L503.6075, L500.4050, L500.4100 ####[facility] [address] [place], [address] Cholesterol in VLDL [Mass/Vol] 29 mg/dL Normal 5-40 [facility] Comment on above: Order Comment: Order Date: 02/10/24Order Info: 0786- - CMPOrder Info: [id number] - LIPIDOrder Info: [id number] - TIBCOrder Info: 2497-06 - FEOrder Info: 2275-06 - FEROrder Info: 2283-10 - FOLSN Performed By: #### L 503.6150, L503.6075, L503.6550, L506.0250, L503.0105, L100.0100, L500.4050, L500.4100 ####[facility] [address] [place], [place], [id number] Performed By: #### L 503.6550, L100.0100, L503.0105, L503.6150, L506.0250, L503.6075, L500.4050, L500.4100 ####[facility] [address] [place], [place], [id number] Triglyceride [Mass/Vol] 145 mg/dL Normal [facility] Comment on above: Order Comment: Order Date: 02/10/24Order Info: [id number] - CMPOrder Info: [id number] - LIPIDOrder Info: [id number] - TIBCOrder Info: [id number] - FEOrder Info: [id number] - FEROrder Info: [id number] - FOLSN Result Comment: The drugs N-Acetylcysteine and Metamizole may falselydepress this assay.Serum Triglycerides Reference Interval Normal <150 mg/dL Borderline high 150 - 199 mg/dL High 200 - 499 mg/dL Very High > or = 500 mg/dL Performed By: #### L 503.6150, L503.6075, L503.6550, L506.0250, L503.0105, L100.0100, L500.4050, L500.4100 ####[facility] [address] [place], [place], [id number] Performed By: #### L 503.6550, L100.0100, L503.0105, L503.6150, L506.0250, L503.6075, L500.4050, L500.4100 ####[facility] [address] [place], [place], [id number] Low density lipoprotein (LDL ) cholesterol measurementOrdered By: Bhupinder Hamlin on 03-02-2024 Cholesterol in LDL [Mass/Vol] 58 mg/dL 0-130 [facility] Lymphocytes Auto (Unsp spec) [#/Vol]Ordered By: Bhupinder Hamlin on 03-02-2024 Lymphocytes (Bld) [#/Vol] 1.17 10*3/uL 0.83-4.51 [facility] Lymphocytes/100 WBC Auto (Un sp spec)Ordered By: Bhupinder Hamlin on 03-02-2024 Lymphocytes/100 WBC (Bld) 19.4 % 19-41 [facility] MCV (mean corpuscular volume ) determinationOrdered By: Bhupinder Hamlin on 03-02-2024 MCV (RBC) [Entitic vol] 83.4 fL 81-99 [facility] Mean corpuscular hemoglobin (MCH) determinationOrdered By: Bhupinder Hamlin on 03-02-2024 MCH (RBC) [Entitic mass] 27.4 pg 27.0-32.0 [facility] Mean corpuscular hemoglobin concentration (MCHC) determinationOrdered By: Bhupinder Hamlin on 03-02-2024 MCHC (RBC) [Mass/Vol] 32.9 g/dL 32-36 [facility] Mean platelet volume determi nationOrdered By: Bhupinder Hamlin on 03-02-2024 Platelet mean volume (Bld) [Entitic vol] 9.5 fL 6.2-12.0 [facility] Monocyte percentageOrdered B y: Bhupinder Hamlin on 03-02-2024 Monocytes/100 WBC (Bld) 5.3 % 0-10 [facility] Neutrophil percentageOrdered By: Bhupinder Hamlin on 03-02-2024 Neutrophils/100 WBC (Bld) 72.0 % High 47-70 [facility] Nucleated red blood cell per centageOrdered By: Bhupinder Hamlin on 03-02-2024 Nucleated RBC/100 WBC (Bld) [Ratio] 0 % 0-5 [facility] Platelet countOrdered By: Destini Hamlin on 03-02-2024 Platelets (Bld) [#/Vol] 204 10*3/uL 150-450 [facility] Potassium measurementOrdered By: Bhupinder Hamlin on 03-02-2024 Potassium [Moles/Vol] 4.3 mmol/L 3.5-5.1 [facility] Prothrombin Time w/INRon INR Coag (PPP) [Relative time] 1.8 {INR} Normal [facility] Comment on above: Performed By: #### L 300.3900 ####[facility] [address] [place], [place], [phone] PT Coag (PPP) [Time] 21.1 s High 11.7-14.9 [facility] Comment on above: Performed By: #### L 300.3900 ####[facility] [address] [place], [place], [phone] RBC Auto (Bld) [#/Vol]Ordere d By: Bhupinder Hamlin on 03-02-2024 RBC (Bld) [#/Vol] 4.81 10*6/uL 4.2-5.4 [facility] Serum anion gap measurementO rdered By: Bhupinder Hamlin on 03-02-2024 Anion gap [Moles/Vol] 5 mmol/L 5-15 [facility] Serum globulin measurementOr dered By: Bhupinder Hamlin on 03-02-2024 Globulin (S) [Mass/Vol] 3.1 g/dL 2.2-4.2 [facility] Serum or plasma alanine angelo otransferase (ALT) measurementOrdered By: Bhupinder Hamlin on 03-02-2024 ALT [Catalytic activity/Vol] 39 U/L 13-56 [facility] Serum or plasma albumin maria g urement (mass/volume)Ordered By: Bhupinder Hamlin on 03-02-2024 Albumin [Mass/Vol] 4.0 g/dL 3.2-5.0 [facility] Serum or plasma alkaline love sphatase measurementOrdered By: Bhupinder Hamlin on 03-02-2024 ALP [Catalytic activity/Vol] 97 U/L 45-117 [facility] Serum or plasma calcium maria g urement (mass/volume)Ordered By: Bhupinder Hamlin on 03-02-2024 Calcium [Mass/Vol] 9.4 mg/dL 8.5-10.1 [facility] Serum or plasma cholesterol measurement (mass/volume)Ordered By: Bhupinder Hamlin on 03-02-2024 Cholesterol [Mass/Vol] 138 mg/dL <200 [facility] Comment on above: <200 mg/dL Desirable 200-240 mg/dL Borderline >240 mg/dL High Risk Serum or plasma creatinine m easurement (mass/volume)Ordered By: Bhupinder Hamlin on 03-02-2024 Creatinine [Mass/Vol] 0.93 mg/dL 0.55-1.02 [facility] Comment on above: The validity of the calculated GFR & GFRAA in patients over 70 years has not been determined. Clinical correlation is essential. Serum or plasma urea nitroge n measurement (mass/volume)Ordered By: Bhupinder Hamlin on 03-02-2024 Urea nitrogen [Mass/Vol] 19 mg/dL High 7-18 [facility] Sodium levelOrdered By: Bhupinder Hamlin on 03-02-2024 Sodium [Moles/Vol] 138 mmol/L 136-145 [facility] TIBCOrdered By: Bhupinder richter on 03-02-2024 Total Iron Binding Capacity 265 ug/dL 250-450 [facility] Total proteinOrdered By: Bruce Hamlin on 03-02-2024 Protein [Mass/Vol] 7.1 g/dL 6.4-8.2 [facility] Triglycerides measurementOrd ered By: Bhupinder Hamlin on 03-02-2024 Triglyceride [Mass/Vol] 145 mg/dL <199 [facility] Comment on above: The drugs N-Acetylcy steine and Metamizole may falsely depress this assay.Serum Triglycerides Reference Interval Normal <150 mg/dL Borderline high 150 - 199 mg/dL High 200 - 499 mg/dL Very High > or = 500 mg/dL Very low density lipoprotein (VLDL) cholesterol measurementOrdered By: Bhupinder Hamlin on 03-02-2024 VLDL Cholesterol 29 mg/dL 5-40 [facility] Vitamin B12on 03-02-2024 Cobalamin (Vitamin B12) [Mass/Vol] 530 pg/mL Normal 211-911 [facility] Comment on above: Order Comment: Order Date: 02/10/24Order Info: [id number] - B12 Performed By: #### L 503.6150, L503.6075, L503.6550, L506.0250, L503.0105, L100.0100, L500.4050, L500.4100 ####[facility] [address] [place], [place], [phone] Performed By: #### L 503.6550, L100.0100, L503.0105, L503.6150, L506.0250, L503.6075, L500.4050, L500.4100 ####[facility] [address] [place], [place], [phone] Vitamin B12 measurementOrder ed By: Bhupinder Hamlin on 03-02-2024 Cobalamin (Vitamin B12) [Mass/Vol] 530 pg/mL 211-911 [facility] White blood cell (WBC) count Ordered By: Bhupinder Hamlin on 03-02-2024 WBC (Bld) [#/Vol] 6.0 10*3/uL 4.4-11.0 [facility] Celiac AB,Comprehensiveon ANTIGLIADIN IGA 4 units Normal 0-19 [facility] Comment on above: Result Comment: Nega tive 0 - 19 Weak Positive 20 - 30 Moderate to Strong Positive >30 Performed By: #### L 341.2350 ####[facility] [address] [place], [place], [phone] ANTIGLIADIN IGG 7 units Normal 0-19 [facility] Comment on above: Result Comment: Nega tive 0 - 19 Weak Positive 20 - 30 Moderate to Strong Positive >30 Performed By: #### L 3410.2350 ####[facility] [address] [place], [place], [phone] ENDOMYSIAL IGA Negative Normal Negative [facility] Comment on above: Performed By: #### L 3410.2350 ####[facility] [address] [place] [phone] IMMUNOGLOB A QN 66 mg/dL Low 87-352 [facility] Comment on above: Result Comment: Perf ormed at: - [facility] [place] [id number] Director: Wilner Suarez PhD, Phone: [phone] Performed By: #### L 3409.0 ####[facility] [address] [place], [address] tTG IGA <2 Normal 0-3 [facility] Comment on above: Result Comment: Nega tive 0 - 3 Weak Positive 4 - 10 Positive >10 Tissue Transglutaminase (tTG) has been identified as the endomysial antigen. Studies have demonstr- ated that endomysial IgA antibodies have over 99% specificity for gluten sensitive enteropathy. Performed By: #### L 0.0 ####[facility] [address] [place], [place], [phone] tTG IGG 2 U/mL Normal 0-5 [facility] Comment on above: Result Comment: Nega tive 0 - 5 Weak Positive 6 - 9 Positive >9 Performed By: #### L 341.2350 ####[facility] [address] [place], [address] Oncology Visit Reporton 12-0 5-2024 Oncology Visit Report Normal [facility] Absolute neutrophil countOrd ered By: Alex Harrell on 02-23-2024 Neutrophils (Bld) [#/Vol] 5.9 10*3/uL 2.0-7.7 [facility] Albumin to globulin ratioOrd ered By: Alex Harrell on 02-23-2024 Albumin/Globulin [Mass ratio] 1.2 {ratio} 0.9-2.4 [facility] Basophil percentageOrdered B y: Alex Harrell on 02-23-2024 Basophils/100 WBC (Bld) 0.5 % 0-1 [facility] Bilirubin, totalOrdered By: Alex [facility] on 02-23-2024 Bilirubin [Mass/Vol] 0.50 mg/dL 0.20-1.00 [facility] Comment on above: For patients on eltr ombopag therapy, use of Dimension [place] TBIL is not recommended. Blood urea nitrogen (BUN)/cr eatinine ratioOrdered By: Alex Sralfonso on 02-23-2024 Urea nitrogen/Creatinine [Mass ratio] 21.3 mg/mg High 10-20 [facility] C-reactive protein measureme nt by high sensitivity methodOrdered By: Alex [facility] on 02-23-2024 C-Reactive Protein Extended Range 7.00 mg/L High 0.0-3.0 [facility] Comment on above: C-Reactive Protein ( CRP) provides useful information for thediagnosis, therapy and monitoring of inflammatory processesand associated diseases. For the evaluation of Relative Riskfor Cardiovascular Disease, a High Sensitivity CRP (HSCRP)should be ordered. CBC W/Diff, Automatedon Absolute Lymph 1.05 X10 3/uL Normal 0.83-4.51 [facility] Comment on above: Performed By: #### L 501.2300, L100.9950, L500.4050, L504.2610, L501.6710, L501.5200, L101.9900, L100.0100, L503.6030, L503.6550 ####[facility] [address] [place], [address] Absolute Neut 5.9 X10 3/uL Normal 2.0-7.7 [facility] Comment on above: Performed By: #### L 501.2300, L100.9950, L500.4050, L504.2610, L501.6710, L501.5200, L101.9900, L100.0100, L503.6030, L503.6550 ####[facility] [address] [place], [place], [phone]) Basophils/100 WBC (Bld) 0.5 % Normal 0-1 [facility] Comment on above: Performed By: #### L 501.2300, L100.9950, L500.4050, L504.2610, L501.6710, L501.5200, L101.9900, L100.0100, L503.6030, L503.6550 ####[facility] [address] [place], [phone]) Eosinophils/100 WBC (Bld) 2.1 % Normal 0-5 [facility] Comment on above: Performed By: #### L 501.2300, L100.9950, L500.4050, L504.2610, L501.6710, L501.5200, L101.9900, L100.0100, L503.6030, L503.6550 ####[facility] [address] [place], [address] Erythrocyte distribution width (RBC) [Ratio] 14.6 % Normal 11.6-14.6 [facility] Comment on above: Performed By: #### L 501.2300, L100.9950, L500.4050, L504.2610, L501.6710, L501.5200, L101.9900, L100.0100, L503.6030, L503.6550 ####[facility] [address] [place], [phone]) Hematocrit (Bld) [Volume fraction] 40.6 % Normal 37-47 [facility] Comment on above: Performed By: #### L 501.2300, L100.9950, L500.4050, L504.2610, L501.6710, L501.5200, L101.9900, L100.0100, L503.6030, L503.6550 ####[facility] [address] [place], [place], [phone]) Hemoglobin (Bld) [Mass/Vol] 13.1 g/dL Normal 12.0-15.0 [facility] Comment on above: Performed By: #### L 501.2300, L100.9950, L500.4050, L504.2610, L501.6710, L501.5200, L101.9900, L100.0100, L503.6030, L503.6550 ####[facility] [address] [place], [address] IG% 0.400 Normal 0.0-0.9 [facility] Comment on above: Result Comment: IG% - Immature Granulocytes (promyelocytes, myelocytes andmetamyelocytes) > 1% indicates that a LEFT SHIFT is Present. Performed By: #### L 501.2300, L100.9950, L500.4050, L504.2610, L501.6710, L501.5200, L101.9900, L100.0100, L503.6030, L503.6550 ####[facility] [address] [place], [place], [phone]) Lymphocytes/100 WBC (Bld) 13.5 % Low 19-41 [facility] Comment on above: Performed By: #### L 501.2300, L100.9950, L500.4050, L504.2610, L501.6710, L501.5200, L101.9900, L100.0100, L503.6030, L503.6550 ####[facility] [address] [place], [place], [phone] MCH (RBC) [Entitic mass] 27.5 pg Normal 27.0-32.0 [facility] Comment on above: Performed By: #### L 501.2300, L100.9950, L500.4050, L504.2610, L501.6710, L501.5200, L101.9900, L100.0100, L503.6030, L503.6550 ####[facility] [address] [place], [place], [phone]) MCHC (RBC) [Mass/Vol] 32.3 g/dL Normal 32-36 [facility] Comment on above: Performed By: #### L 501.2300, L100.9950, L500.4050, L504.2610, L501.6710, L501.5200, L101.9900, L100.0100, L503.6030, L503.6550 ####[facility] [address] [facility] [address] [place], [place], [phone] MCV (RBC) [Entitic vol] 85.1 fL Normal 81-99 [facility] Comment on above: Performed By: #### L 501.2300, L100.9950, L500.4050, L504.2610, L501.6710, L501.5200, L101.9900, L100.0100, L503.6030, L503.6550 ####[facility] [address] [place], [place], [phone] Monocytes/100 WBC (Bld) 7.3 % Normal 0-10 [facility] Comment on above: Performed By: #### L 501.2300, L100.9950, L500.4050, L504.2610, L501.6710, L501.5200, L101.9900, L100.0100, L503.6030, L503.6550 ####[facility] [address] [facility] [place], [address] Neutrophils/100 WBC (Bld) 76.2 % High 47-70 [facility] Comment on above: Performed By: #### L 501.2300, L100.9950, L500.4050, L504.2610, L501.6710, L501.5200, L101.9900, L100.0100, L503.6030, L503.6550 ####[facility] [address] [place], [address] Nucleated RBC (Bld) [#/Vol] 0 10*3/uL Normal 0-5 [facility] Comment on above: Performed By: #### L 501.2300, L100.9950, L500.4050, L504.2610, L501.6710, L501.5200, L101.9900, L100.0100, L503.6030, L503.6550 ####[facility] [address] [place], [place], [phone] Platelet mean volume (Bld) [Entitic vol] 9.4 fL Normal 6.2-12.0 [facility] Comment on above: Performed By: #### L 501.2300, L100.9950, L500.4050, L504.2610, L501.6710, L501.5200, L101.9900, L100.0100, L503.6030, L503.6550 ####[facility] [address] [place], [place], [phone]) Platelets (Bld) [#/Vol] 241 10*3/uL Normal 150-450 [facility] Comment on above: Performed By: #### L 501.2300, L100.9950, L500.4050, L504.2610, L501.6710, L501.5200, L101.9900, L100.0100, L503.6030, L503.6550 ####[facility] [address] [place], [address] RBC (Bld) [#/Vol] 4.77 10*6/uL Normal 4.2-5.4 [facility] Comment on above: Performed By: #### L 501.2300, L100.9950, L500.4050, L504.2610, L501.6710, L501.5200, L101.9900, L100.0100, L503.6030, L503.6550 ####[facility] [address] [place], [place], [phone] RDW SD 45.2 fl High 35.1-43.9 [facility] Comment on above: Performed By: #### L 501.2300, L100.9950, L500.4050, L504.2610, L501.6710, L501.5200, L101.9900, L100.0100, L503.6030, L503.6550 ####[facility] [address] [facility] [place], [place], [phone] WBC (Bld) [#/Vol] 7.8 10*3/uL Normal 4.4-11.0 [facility] Comment on above: Performed By: #### L 501.2300, L100.9950, L500.4050, L504.2610, L501.6710, L501.5200, L101.9900, L100.0100, L503.6030, L503.6550 ####[facility] [address] [facility] [place], [place], [phone] CRPon 02-23-2024 C-REACTIVE PROT 7.00 mg/L High 0.0-3.0 [facility] Comment on above: Order Comment: 1 Result Comment: C-Re active Protein (CRP) provides useful information for thediagnosis, therapy and monitoring of inflammatory processesand associated diseases. For the evaluation of Relative Riskfor Cardiovascular Disease, a High Sensitivity CRP (HSCRP)should be ordered. Performed By: #### L 501.2300, L100.9950, L500.4050, L504.2610, L501.6710, L501.5200, L101.9900, L100.0100, L503.6030, L503.6550 ####[facility] [address] [place], [place], [address] Carbon dioxide measurementOr dered By: Alex Harrell on 02-23-2024 CO2 [Moles/Vol] 28.0 mmol/L 21.0-32.0 [facility] Chloride measurementOrdered By: Alex Harrell on 02-23-2024 Chloride [Moles/Vol] 106 mmol/L 98-107 [facility] Comprehensive Metabolic Prof ilon 02-23-2024 CO2 [Moles/Vol] 28.0 mmol/L Normal 21.0-32.0 [facility] Comment on above: Order Comment: 1 Performed By: #### L 501.2300, L100.9950, L500.4050, L504.2610, L501.6710, L501.5200, L101.9900, L100.0100, L503.6030, L503.6550 ####[facility] [address] [place], [place], [phone] GAP 5 Normal 5-15 [facility] Comment on above: Order Comment: 1 Performed By: #### L 501.2300, L100.9950, L500.4050, L504.2610, L501.6710, L501.5200, L101.9900, L100.0100, L503.6030, L503.6550 ####[facility] [address] [place], [place], [phone] ALK P 105 U/L Normal 45-117 [facility] Comment on above: Order Comment: 1 Performed By: #### L 501.2300, L100.9950, L500.4050, L504.2610, L501.6710, L501.5200, L101.9900, L100.0100, L503.6030, L503.6550 ####[facility] [address] [place], [address] ALT [Catalytic activity/Vol] 29 U/L Normal 13-56 [facility] Comment on above: Order Comment: 1 Performed By: #### L 501.2300, L100.9950, L500.4050, L504.2610, L501.6710, L501.5200, L101.9900, L100.0100, L503.6030, L503.6550 ####[facility] [address] [place], [address] Bilirubin [Mass/Vol] 0.50 mg/dL Normal 0.20-1.00 [facility] Comment on above: Order Comment: 1 Result Comment: For patients on eltrombopag therapy, use of Dimension [place] TBIL is not recommended. Performed By: #### L 501.2300, L100.9950, L500.4050, L504.2610, L501.6710, L501.5200, L101.9900, L100.0100, L503.6030, L503.6550 ####[facility] [address] [place], [place], [phone]) Chloride [Moles/Vol] 106 mmol/L Normal 98-107 [facility] Comment on above: Order Comment: 1 Performed By: #### L 501.2300, L100.9950, L500.4050, L504.2610, L501.6710, L501.5200, L101.9900, L100.0100, L503.6030, L503.6550 ####[facility] [address] [place], [address] Potassium [Moles/Vol] 4.4 mmol/L Normal 3.5-5.1 [facility] Comment on above: Order Comment: 1 Performed By: #### L 501.2300, L100.9950, L500.4050, L504.2610, L501.6710, L501.5200, L101.9900, L100.0100, L503.6030, L503.6550 ####[facility] [address] [place], [address] Sodium [Moles/Vol] 139 mmol/L Normal 136-145 [facility] Comment on above: Order Comment: 1 Performed By: #### L 501.2300, L100.9950, L500.4050, L504.2610, L501.6710, L501.5200, L101.9900, L100.0100, L503.6030, L503.6550 ####[facility] [address] [place], [place], [phone] Albumin [Mass/Vol] 3.7 g/dL Normal 3.2-5.0 [facility] Comment on above: Order Comment: 1 Performed By: #### L 501.2300, L100.9950, L500.4050, L504.2610, L501.6710, L501.5200, L101.9900, L100.0100, L503.6030, L503.6550 ####[facility] [address] [place], [place], [phone]) Albumin/Globulin [Mass ratio] 1.2 {ratio} Normal 0.9-2.4 [facility] Comment on above: Order Comment: 1 Performed By: #### L 501.2300, L100.9950, L500.4050, L504.2610, L501.6710, L501.5200, L101.9900, L100.0100, L503.6030, L503.6550 ####[facility] [address] [place], [place], [phone] AST [Catalytic activity/Vol] 21 U/L Normal 15-37 [facility] Comment on above: Order Comment: 1 Performed By: #### L 501.2300, L100.9950, L500.4050, L504.2610, L501.6710, L501.5200, L101.9900, L100.0100, L503.6030, L503.6550 ####[facility] [address] [place], [address] CA,Total 9.3 mg/dL Normal 8.5-10.1 [facility] Comment on above: Order Comment: 1 Performed By: #### L 501.2300, L100.9950, L500.4050, L504.2610, L501.6710, L501.5200, L101.9900, L100.0100, L503.6030, L503.6550 ####[facility] [address] [place], [address] Globulin (S) [Mass/Vol] 3.0 g/dL Normal 2.2-4.2 [facility] Comment on above: Order Comment: 1 Performed By: #### L 501.2300, L100.9950, L500.4050, L504.2610, L501.6710, L501.5200, L101.9900, L100.0100, L503.6030, L503.6550 ####[facility] [address] [place], [address] BUN/CRE 21.3 RATIO High 10-20 [facility] Comment on above: Order Comment: 1 Performed By: #### L 501.2300, L100.9950, L500.4050, L504.2610, L501.6710, L501.5200, L101.9900, L100.0100, L503.6030, L503.6550 ####[facility] [address] [place], [address] Creatinine [Mass/Vol] 0.94 mg/dL Normal 0.55-1.02 [facility] Comment on above: Order Comment: 1 Result Comment: The validity of the calculated GFR GFRAA in patients over70 years has not been determined. Clinical correlation isessential. Performed By: #### L 501.2300, L100.9950, L500.4050, L504.2610, L501.6710, L501.5200, L101.9900, L100.0100, L503.6030, L503.6550 ####[facility] [address] [place], [address] ECRCL 69.85 ml/min Normal [facility] Comment on above: Order Comment: 1 Performed By: #### L 501.2300, L100.9950, L500.4050, L504.2610, L501.6710, L501.5200, L101.9900, L100.0100, L503.6030, L503.6550 ####[facility] [address] [place], [place], [phone]) EST GFR - AA 81 mL/min Normal >60 [facility] Comment on above: Order Comment: 1 Performed By: #### L 501.2300, L100.9950, L500.4050, L504.2610, L501.6710, L501.5200, L101.9900, L100.0100, L503.6030, L503.6550 ####[facility] [address] [place], [place], [phone]) GFR/1.73 sq M.predicted among non-blacks MDRD (S/P/Bld) [Vol rate/Area] 67 mL/min/{1.73_m2} Normal >60 [facility] Comment on above: Order Comment: 1 Performed By: #### L 501.2300, L100.9950, L500.4050, L504.2610, L501.6710, L501.5200, L101.9900, L100.0100, L503.6030, L503.6550 ####[facility] [address] [place], [place], [phone](472) Glucose [Mass/Vol] 79 mg/dL Normal 74-106 [facility] Comment on above: Order Comment: 1 Performed By: #### L 501.2300, L100.9950, L500.4050, L504.2610, L501.6710, L501.5200, L101.9900, L100.0100, L503.6030, L503.6550 ####[facility] [address] [place], [place], [phone] T PROT 6.7 g/dL Normal 6.4-8.2 [facility] Comment on above: Order Comment: 1 Performed By: #### L 501.2300, L100.9950, L500.4050, L504.2610, L501.6710, L501.5200, L101.9900, L100.0100, L503.6030, L503.6550 ####[facility] [address] [place], [place], [phone] Urea nitrogen [Mass/Vol] 20 mg/dL High 7-18 [facility] Comment on above: Order Comment: 1 Performed By: #### L 501.2300, L100.9950, L500.4050, L504.2610, L501.6710, L501.5200, L101.9900, L100.0100, L503.6030, L503.6550 ####[facility] [address] [place], [place], [phone] Deamidated gliadin IgA antib kirstin assayOrdered By: Alex Harrell on 02-23-2024 Anti-Gliadin IgA Antibody 4 units 0-19 [facility] Comment on above: Negative 0 - 19 Weak Positive 20 - 30 Moderate to Strong Positive >30 Deamidated gliadin IgG antib kirstin assayOrdered By: Alex Harrell on 02-23-2024 Anti-Gliadin IgG Antibody 7 units 0-19 [facility] Comment on above: Negative 0 - 19 Weak Positive 20 - 30 Moderate to Strong Positive >30 Endomysial IgA antibody assa yOrdered By: Alex Harrell on 02-23-2024 Endomysial IgA Antibody Negative Negative [facility] Eosinophil percentageOrdered By: Alex Harrell on 02-23-2024 Eosinophils/100 WBC (Bld) 2.1 % 0-5 [facility] Erythrocyte Sed Rateon 02-22 SED RATE 3 mm/hr Normal 0-30 [facility] Comment on above: Performed By: #### L 501.2300, L100.9950, L500.4050, L504.2610, L501.6710, L501.5200, L101.9900, L100.0100, L503.6030, L503.6550 ####[facility] [address] [place], [place], [phone] Erythrocyte distribution wid th ratioOrdered By: Alex Harrell on 02-23-2024 Erythrocyte distribution width (RBC) [Ratio] 14.6 % 11.6-14.6 [facility] Erythrocyte distribution wid th standard deviationOrdered By: Alex Harrell on 02-23-2024 Erythrocyte distribution width (RBC) [Entitic vol] 45.2 fL High 35.1-43.9 [facility] Erythrocyte sedimentation ra teOrdered By: Alex Harrell on 02-23-2024 ESR (Bld) [Velocity] 3 mm/h 0-30 [facility] Estimated glomerular filtrat ion rate (GFR) AmericanOrdered By: Alex Harrell on 02-23-2024 Estimated GFR (MDRD) Amer 81 mL/min >60 [facility] Estimation of creatinine deny aranceOrdered By: Alex Harrell on 02-23-2024 Estimated Creatinine Clearance Calc 69.85 ml/min [facility] Ferritinon 02-23-2024 Ferritin [Mass/Vol] 900 ng/mL High 8-252 [facility] Comment on above: Order Comment: 1 Performed By: #### L 501.2300, L100.9950, L500.4050, L504.2610, L501.6710, L501.5200, L101.9900, L100.0100, L503.6030, L503.6550 ####[facility] [id number] [place], [address] Ferritin measurementOrdered By: Alex Julio Cesar on 02-23-2024 Ferritin [Mass/Vol] 900 ng/mL High 8-252 [facility] Glomerular filtration rate ( GFR) estimationOrdered By: [facility] on 02-23-2024 Estimated GFR (MDRD) Non-Af Amer 67 mL/min >60 [facility] Glucose measurementOrdered B y: Alex Harrell on 02-23-2024 Glucose [Mass/Vol] 79 mg/dL 74-106 [facility] Hematocrit Auto (Bld) [Volum e fraction]Ordered By: [facility] on 02-23-2024 Hematocrit (Bld) [Volume fraction] 40.6 % 37-47 [facility] Hemoglobin (Reticulocytes) [ Entitic mass]Ordered By: [place] Julio Cesar on 02-23-2024 Reticulocyte Hemoglobin Equivalent 31.9 pg 30-35 [facility] Hemoglobin measurementOrdere d By: Alex Harrell on 02-23-2024 Hemoglobin (Bld) [Mass/Vol] 13.1 g/dL 12.0-15.0 [facility] Immature granulocytes/100 WB C Auto (Bld)Ordered By: [facility] on 02-23-2024 Immature granulocytes/100 WBC (Bld) 0.400 % 0.0-0.9 [facility] Comment on above: IG% - Immature Granu locytes (promyelocytes, myelocytes and metamyelocytes) > 1% indicates that a LEFT SHIFT is Present. Immature reticulocyte fracti onOrdered By: Alex Harrell on 02-23-2024 Immature Reticulocyte Fraction 4.00 % 3.00-15.90 [facility] Iron (Unsp spec) [Mass/Mass] Ordered By: [facility] on 02-23-2024 Iron [Mass/Vol] 40 ug/dL Low 50-170 [facility] [facility] Iron saturation [Mass fracti on]Ordered By: [facility] on 02-23-2024 Iron Saturation 17.6 % 15.0-55.0 [facility] Iron+Iron Binding Capacityon 02-23-2024 Iron [Mass/Vol] 40 ug/dL Low 50-170 [facility] Comment on above: Order Comment: 1 Performed By: #### L 501.2300, L100.9950, L500.4050, L504.2610, L501.6710, L501.5200, L101.9900, L100.0100, L503.6030, L503.6550 ####[facility] [address] [place], [place], [id number] IRON SATURATION 17.6 Normal 15.0-55.0 [facility] Comment on above: Order Comment: 1 Performed By: #### L 501.2300, L100.9950, L500.4050, L504.2610, L501.6710, L501.5200, L101.9900, L100.0100, L503.6030, L503.6550 ####[facility] [address] [place], [address] TIBC 227 ug/dL Low 250-450 [facility] Comment on above: Order Comment: 1 Performed By: #### L 501.2300, L100.9950, L500.4050, L504.2610, L501.6710, L501.5200, L101.9900, L100.0100, L503.6030, L503.6550 ####[facility] [address] [place], [place], [id number] LDHon 02-23-2024 LDH 248 U/L High 84-246 [facility] Comment on above: Order Comment: 1 Performed By: #### L 501.2300, L100.9950, L500.4050, L504.2610, L501.6710, L501.5200, L101.9900, L100.0100, L503.6030, L503.6550 ####[facility] [address] [place], [place], [id number] Laboratory - Chemistry and C hemistry - challengeOrdered By: Alex Harrell on 02-23-2024 AST [Catalytic activity/Vol] 21 U/L 15-37 [facility] Lactate dehydrogenase (LDH) measurementOrdered By: Alex Harrell on 02-23-2024 LDH [Catalytic activity/Vol] 248 U/L High 84-246 [facility] Lymphocytes Auto (Unsp spec) [#/Vol]Ordered By: Alex Harrell on 02-23-2024 Lymphocytes (Bld) [#/Vol] 1.05 10*3/uL 0.83-4.51 [facility] Lymphocytes/100 WBC Auto (Un sp spec)Ordered By: Alex Harrell on 02-23-2024 Lymphocytes/100 WBC (Bld) 13.5 % Low 19-41 [facility] MCV (mean corpuscular volume ) determinationOrdered By: Alex Harrell on 02-23-2024 MCV (RBC) [Entitic vol] 85.1 fL 81-99 [facility] Magnesiumon 02-23-2024 Magnesium [Mass/Vol] 1.9 mg/dL Normal 1.6-2.6 [facility] Comment on above: Order Comment: 1 Performed By: #### L 501.2300, L100.9950, L500.4050, L504.2610, L501.6710, L501.5200, L101.9900, L100.0100, L503.6030, L503.6550 ####[facility] [address] [place], [address] Magnesium measurementOrdered By: Alex Harrell on 02-23-2024 Magnesium [Mass/Vol] 1.9 mg/dL 1.6-2.6 [facility] Mean corpuscular hemoglobin (MCH) determinationOrdered By: Alex Harrell on 02-23-2024 MCH (RBC) [Entitic mass] 27.5 pg 27.0-32.0 [facility] Mean corpuscular hemoglobin concentration (MCHC) determinationOrdered By: Alex Harrell on 02-23-2024 MCHC (RBC) [Mass/Vol] 32.3 g/dL 32-36 [facility] Mean platelet volume determi nationOrdered By: Alex Harrell on 02-23-2024 Platelet mean volume (Bld) [Entitic vol] 9.4 fL 6.2-12.0 [facility] Monocyte percentageOrdered B y: Aelx Julio Cesar on 02-23-2024 Monocytes/100 WBC (Bld) 7.3 % 0-10 [facility] Neutrophil percentageOrdered By: Alex Julio Cesar on 02-23-2024 Neutrophils/100 WBC (Bld) 76.2 % High 47-70 [facility] No Panel InformationOrdered By: Alex Harrell on 02-23-2024 Tissue Transglutaminase IgG Ab 2 U/mL 0-5 [facility] Comment on above: Negative 0 - 5 Weak Positive 6 - 9 Positive >9 Nucleated red blood cell per centageOrdered By: Alex Harrell on 02-23-2024 Nucleated RBC/100 WBC (Bld) [Ratio] 0 % 0-5 [facility] Phosphoruson 02-23-2024 Phosphate [Mass/Vol] 4.1 mg/dL Normal 2.5-4.9 [facility] Comment on above: Order Comment: 1 Performed By: #### L 501.2300, L100.9950, L500.4050, L504.2610, L501.6710, L501.5200, L101.9900, L100.0100, L503.6030, L503.6550 ####[facility] [address] [place], [place], [id number] Phosphorus measurementOrdere d By: Alex Harrell on 02-23-2024 Phosphorus Level 4.1 mg/dL 2.5-4.9 [facility] Platelet countOrdered By: Destini Harrell on 02-23-2024 Platelets (Bld) [#/Vol] 241 10*3/uL 150-450 [facility] Potassium measurementOrdered By: Alex Harrell on 02-23-2024 Potassium [Moles/Vol] 4.4 mmol/L 3.5-5.1 [facility] RBC Auto (Bld) [#/Vol]Ordere d By: Alex Harrell on 02-23-2024 RBC (Bld) [#/Vol] 4.77 10*6/uL 4.2-5.4 [facility] Retic Panelon 02-23-2024 IM RET FRACTION 4.00 Normal 3.00-15.90 [facility] Comment on above: Performed By: #### L 501.2300, L100.9950, L500.4050, L504.2610, L501.6710, L501.5200, L101.9900, L100.0100, L503.6030, L503.6550 ####[facility] [address] [place], [place], [phone] RET-HE 31.9 pg Normal 30-35 [facility] Comment on above: Performed By: #### L 501.2300, L100.9950, L500.4050, L504.2610, L501.6710, L501.5200, L101.9900, L100.0100, L503.6030, L503.6550 ####[facility] [address] [place], [place], [id number] Retic Count 0.97 Normal 0.5-1.5 [facility] Comment on above: Performed By: #### L 501.2300, L100.9950, L500.4050, L504.2610, L501.6710, L501.5200, L101.9900, L100.0100, L503.6030, L503.6550 ####[facility] [address] [place], [place], [id number] Reticulocyte hemoglobin equi valent (RET-He) measurementOrdered By: Alex Harrell on 02-23-2024 Hemoglobin (Reticulocytes) [Entitic mass] 31.9 pg 30-35 [facility] Reticulocytes Auto (Bld) [#/ Vol]Ordered By: Alex Harrell on 02-23-2024 Reticulocyte Count 0.97 % 0.5-1.5 [facility] Reticulocytes/100 RBC (Bld) 0.97 % 0.5-1.5 [facility] Serum anion gap measurementO rdered By: Alex Harrell on 02-23-2024 Anion gap [Moles/Vol] 5 mmol/L 5-15 [facility] Serum globulin measurementOr dered By: Alex Harrell on 02-23-2024 Globulin (S) [Mass/Vol] 3.0 g/dL 2.2-4.2 [facility] Serum immunoglobulin A measu rementOrdered By: Alex Harrell on 02-23-2024 Immunoglobulin A 66 mg/dL Low 87-352 [facility] Comment on above: Performed at: [place] [id number] Director: Wilner Suarez PhD, Phone: [phone] Serum or plasma alanine angelo otransferase (ALT) measurementOrdered By: Alex Harrell on 02-23-2024 ALT [Catalytic activity/Vol] 29 U/L 13-56 [facility] Serum or plasma albumin maria g urement (mass/volume)Ordered By: Alex Harrell on 02-23-2024 Albumin [Mass/Vol] 3.7 g/dL 3.2-5.0 [facility] Serum or plasma alkaline love sphatase measurementOrdered By: Alex Harrell on 02-23-2024 ALP [Catalytic activity/Vol] 105 U/L 45-117 [facility] Serum or plasma calcium maria g urement (mass/volume)Ordered By: Alex Harrell on 02-23-2024 Calcium [Mass/Vol] 9.3 mg/dL 8.5-10.1 [facility] Serum or plasma creatinine m easurement (mass/volume)Ordered By: Alex Harrell on 02-23-2024 Creatinine [Mass/Vol] 0.94 mg/dL 0.55-1.02 [facility] Comment on above: The validity of the calculated GFR & GFRAA in patients over 70 years has not been determined. Clinical correlation is essential. Serum or plasma urea nitroge n measurement (mass/volume)Ordered By: Alex Harrell on 02-23-2024 Urea nitrogen [Mass/Vol] 20 mg/dL High 7-18 [facility] Serum tissue transglutaminas e (tTG) IgA antibody assay (units/volume)Ordered By: Alex Harrell on 02-23-2024 tTG IgA Qn (S) <2 U/mL 0-3 [facility] Comment on above: Negative 0 - 3 Weak Positive 4 - 10 Positive >10 Tissue Transglutaminase (tTG) has been identified as the endomysial antigen. Studies have demonstr- ated that endomysial IgA antibodies have over 99% specificity for gluten sensitive enteropathy. Sodium levelOrdered By: Chris Harrell on 02-23-2024 Sodium [Moles/Vol] 139 mmol/L 136-145 [facility] TIBCOrdered By: Alex Harrell on 02-23-2024 Total Iron Binding Capacity 227 ug/dL Low 250-450 [facility] Total proteinOrdered By: Daniel Harrell on 02-23-2024 Protein [Mass/Vol] 6.7 g/dL 6.4-8.2 [facility] White blood cell (WBC) count Ordered By: Alex Harrell on 02-23-2024 WBC (Bld) [#/Vol] 7.8 10*3/uL 4.4-11.0 [facility] tTG IgA Qn (S)Ordered By: Destini Harrell on 02-23-2024 Tissue Transglutaminase IgA Ab <2 U/mL 0-3 [facility] Comment on above: Negative 0 - 3 Weak Positive 4 - 10 Positive >10 Tissue Transglutaminase (tTG) has been identified as the endomysial antigen. Studies have demonstr- ated that endomysial IgA antibodies have over 99% specificity for gluten sensitive enteropathy. Prothrombin Time w/INRon INR Coag (PPP) [Relative time] 2.5 {INR} Normal [facility] Comment on above: Performed By: #### L 300.3900 ####[facility] [address] [place], [address] PT Coag (PPP) [Time] 26.5 s High 11.7-14.9 [facility] Comment on above: Performed By: #### L 300.3900 ####[facility] [address] [place], [address] Prothrombin Time w/INRon INR Coag (PPP) [Relative time] 1.8 {INR} Normal [facility] Comment on above: Performed By: #### L 300.3900 ####[facility] [address] [place], [address] PT Coag (PPP) [Time] 20.6 s High 11.7-14.9 [facility] Comment on above: Performed By: #### L 300.3900 ####[facility] [address] [place], [address] CBC W/Diff, Automatedon 11-2 Absolute Lymph 1.16 X10 3/uL Normal 0.83-4.51 [facility] Comment on above: Performed By: #### L 500.4100, L503.0105, L500.4050, L503.6550, L503.6075, L100.0100, L503.6150, L506.0250 ####[facility] [address] [place], [address] Absolute Neut 2.6 X10 3/uL Normal 2.0-7.7 [facility] Comment on above: Performed By: #### L 500.4100, L503.0105, L500.4050, L503.6550, L503.6075, L100.0100, L503.6150, L506.0250 ####[facility] [address] [place], [address] Basophils/100 WBC (Bld) 0.7 % Normal 0-1 [facility] Comment on above: Performed By: #### L 500.4100, L503.0105, L500.4050, L503.6550, L503.6075, L100.0100, L503.6150, L506.0250 ####[facility] [address] [place], [address] Eosinophils/100 WBC (Bld) 1.4 % Normal 0-5 [facility] Comment on above: Performed By: #### L 500.4100, L503.0105, L500.4050, L503.6550, L503.6075, L100.0100, L503.6150, L506.0250 ####[facility] [address] [place], [address] Erythrocyte distribution width (RBC) [Ratio] 14.5 % Normal 11.6-14.6 [facility] Comment on above: Performed By: #### L 500.4100, L503.0105, L500.4050, L503.6550, L503.6075, L100.0100, L503.6150, L506.0250 ####[facility] [address] [place], [address] Hematocrit (Bld) [Volume fraction] 39.7 % Normal 37-47 [facility] Comment on above: Performed By: #### L 500.4100, L503.0105, L500.4050, L503.6550, L503.6075, L100.0100, L503.6150, L506.0250 ####[facility] [address] [place], [address] Hemoglobin (Bld) [Mass/Vol] 12.4 g/dL Normal 12.0-15.0 [facility] Comment on above: Performed By: #### L 500.4100, L503.0105, L500.4050, L503.6550, L503.6075, L100.0100, L503.6150, L506.0250 ####[facility] [address] [place], [address] IG% 0.700 Normal 0.0-0.9 [facility] Comment on above: Result Comment: IG% - Immature Granulocytes (promyelocytes, myelocytes andmetamyelocytes) > 1% indicates that a LEFT SHIFT is Present. Performed By: #### L 500.4100, L503.0105, L500.4050, L503.6550, L503.6075, L100.0100, L503.6150, L506.0250 ####[facility] [address] [place], [address] Lymphocytes/100 WBC (Bld) 26.7 % Normal 19-41 [facility] Comment on above: Performed By: #### L 500.4100, L503.0105, L500.4050, L503.6550, L503.6075, L100.0100, L503.6150, L506.0250 ####[facility] [address] [place], [address] MCH (RBC) [Entitic mass] 26.9 pg Low 27.0-32.0 [facility] Comment on above: Performed By: #### L 500.4100, L503.0105, L500.4050, L503.6550, L503.6075, L100.0100, L503.6150, L506.0250 ####[facility] [address] [place], [address] MCHC (RBC) [Mass/Vol] 31.2 g/dL Low 32-36 [facility] Comment on above: Performed By: #### L 500.4100, L503.0105, L500.4050, L503.6550, L503.6075, L100.0100, L503.6150, L506.0250 ####[facility] [address] [place], [address] MCV (RBC) [Entitic vol] 86.1 fL Normal 81-99 [facility] Comment on above: Performed By: #### L 500.4100, L503.0105, L500.4050, L503.6550, L503.6075, L100.0100, L503.6150, L506.0250 ####[facility] [address] [place], [address] Monocytes/100 WBC (Bld) 10.1 % High 0-10 [facility] Comment on above: Performed By: #### L 500.4100, L503.0105, L500.4050, L503.6550, L503.6075, L100.0100, L503.6150, L506.0250 ####[facility] [address] [place], [address] Neutrophils/100 WBC (Bld) 60.4 % Normal 47-70 [facility] Comment on above: Performed By: #### L 500.4100, L503.0105, L500.4050, L503.6550, L503.6075, L100.0100, L503.6150, L506.0250 ####[facility] [address] [place], [address] Nucleated RBC (Bld) [#/Vol] 0 10*3/uL Normal 0-5 [facility] Comment on above: Performed By: #### L 500.4100, L503.0105, L500.4050, L503.6550, L503.6075, L100.0100, L503.6150, L506.0250 ####[facility] [address] [place], [address] Platelet mean volume (Bld) [Entitic vol] 9.2 fL Normal 6.2-12.0 [facility] Comment on above: Performed By: #### L 500.4100, L503.0105, L500.4050, L503.6550, L503.6075, L100.0100, L503.6150, L506.0250 ####[facility] [address] [place], [address] Platelets (Bld) [#/Vol] 270 10*3/uL Normal 150-450 [facility] Comment on above: Performed By: #### L 500.4100, L503.0105, L500.4050, L503.6550, L503.6075, L100.0100, L503.6150, L506.0250 ####[facility] [address] [place], [address] RBC (Bld) [#/Vol] 4.61 10*6/uL Normal 4.2-5.4 [facility] Comment on above: Performed By: #### L 500.4100, L503.0105, L500.4050, L503.6550, L503.6075, L100.0100, L503.6150, L506.0250 ####[facility] [address] [place], [address] RDW SD 45.9 fl High 35.1-43.9 [facility] Comment on above: Performed By: #### L 500.4100, L503.0105, L500.4050, L503.6550, L503.6075, L100.0100, L503.6150, L506.0250 ####[facility] [address] [place], [address] WBC (Bld) [#/Vol] 4.3 10*3/uL Low 4.4-11.0 [facility] Comment on above: Performed By: #### L 500.4100, L503.0105, L500.4050, L503.6550, L503.6075, L100.0100, L503.6150, L506.0250 ####[facility] [address] [place], [address] CRPon 02-10-2024 C-REACTIVE PROT 14.80 mg/L High 0.0-3.0 [facility] Comment on above: Result Comment: C-Re active Protein (CRP) provides useful information for thediagnosis, therapy and monitoring of inflammatory processesand associated diseases. For the evaluation of Relative Riskfor Cardiovascular Disease, a High Sensitivity CRP (HSCRP)should be ordered. Performed By: #### L 501.6710 ####[facility] [address] [place], [address] Comprehensive Metabolic Prof ilon 02-10-2024 Albumin [Mass/Vol] 3.8 g/dL Normal 3.2-5.0 [facility] Comment on above: Order Comment: UNKN Performed By: #### L 500.4100, L503.0105, L500.4050, L503.6550, L503.6075, L100.0100, L503.6150, L506.0250 ####[facility] [address] [place], [address] Albumin/Globulin [Mass ratio] 1.1 {ratio} Normal 0.9-2.4 [facility] Comment on above: Order Comment: UNKN Performed By: #### L 500.4100, L503.0105, L500.4050, L503.6550, L503.6075, L100.0100, L503.6150, L506.0250 ####[facility] [address] [place], [address] ALK P 136 U/L High 45-117 [facility] Comment on above: Order Comment: UNKN Performed By: #### L 500.4100, L503.0105, L500.4050, L503.6550, L503.6075, L100.0100, L503.6150, L506.0250 ####[facility] [address] [place], [address] ALT [Catalytic activity/Vol] 24 U/L Normal 13-56 [facility] Comment on above: Order Comment: UNKN Performed By: #### L 500.4100, L503.0105, L500.4050, L503.6550, L503.6075, L100.0100, L503.6150, L506.0250 ####[facility] [address] [place], [address] AST [Catalytic activity/Vol] 22 U/L Normal 15-37 [facility] Comment on above: Order Comment: UNKN Performed By: #### L 500.4100, L503.0105, L500.4050, L503.6550, L503.6075, L100.0100, L503.6150, L506.0250 ####[facility] [address] [place], [address] Bilirubin [Mass/Vol] 0.40 mg/dL Normal 0.20-1.00 [facility] Comment on above: Order Comment: UNKN Result Comment: For patients on eltrombopag therapy, use of Dimension [place] TBIL is not recommended. Performed By: #### L 500.4100, L503.0105, L500.4050, L503.6550, L503.6075, L100.0100, L503.6150, L506.0250 ####[facility] [address] [place], [address] BUN/CRE 24.0 RATIO High 10-20 [facility] Comment on above: Order Comment: UNKN Performed By: #### L 500.4100, L503.0105, L500.4050, L503.6550, L503.6075, L100.0100, L503.6150, L506.0250 ####[facility] [address] [place], [address] CA,Total 9.0 mg/dL Normal 8.5-10.1 [facility] Comment on above: Order Comment: UNKN Performed By: #### L 500.4100, L503.0105, L500.4050, L503.6550, L503.6075, L100.0100, L503.6150, L506.0250 ####[facility] [address] [place], [address] Chloride [Moles/Vol] 104 mmol/L Normal 98-107 [facility] Comment on above: Order Comment: UNKN Performed By: #### L 500.4100, L503.0105, L500.4050, L503.6550, L503.6075, L100.0100, L503.6150, L506.0250 ####[facility] [address] [place], [address] CO2 [Moles/Vol] 25.0 mmol/L Normal 21.0-32.0 [facility] Comment on above: Order Comment: UNKN Performed By: #### L 500.4100, L503.0105, L500.4050, L503.6550, L503.6075, L100.0100, L503.6150, L506.0250 ####[facility] [address] [place], [place], [id number] Creatinine [Mass/Vol] 0.79 mg/dL Normal 0.55-1.02 [facility] Comment on above: Order Comment: UNKN Result Comment: The validity of the calculated GFR GFRAA in patients over70 years has not been determined. Clinical correlation isessential. Performed By: #### L 500.4100, L503.0105, L500.4050, L503.6550, L503.6075, L100.0100, L503.6150, L506.0250 ####[facility] [address] [place], [place], [address] EST GFR - AA 99 mL/min Normal >60 [facility] Comment on above: Order Comment: UNKN Result Comment: Afri can Prydeinig GFR Calc Performed By: #### L 500.4100, L503.0105, L500.4050, L503.6550, L503.6075, L100.0100, L503.6150, L506.0250 ####[facility] [address] [place], [address] GAP 7 Normal 5-15 [facility] Comment on above: Order Comment: UNKN Performed By: #### L 500.4100, L503.0105, L500.4050, L503.6550, L503.6075, L100.0100, L503.6150, L506.0250 ####[facility] [address] [place], [address] GFR/1.73 sq M.predicted among non-blacks MDRD (S/P/Bld) [Vol rate/Area] 82 mL/min/{1.73_m2} Normal >60 [facility] Comment on above: Order Comment: UNKN Result Comment: Non- GFR Calc Performed By: #### L 500.4100, L503.0105, L500.4050, L503.6550, L503.6075, L100.0100, L503.6150, L506.0250 ####[facility] [address] [place], [address] Globulin (S) [Mass/Vol] 3.4 g/dL Normal 2.2-4.2 [facility] Comment on above: Order Comment: UNKN Performed By: #### L 500.4100, L503.0105, L500.4050, L503.6550, L503.6075, L100.0100, L503.6150, L506.0250 ####[facility] [address] [place], [address] Glucose [Mass/Vol] 68 mg/dL Low 74-106 [facility] Comment on above: Order Comment: UNKN Performed By: #### L 500.4100, L503.0105, L500.4050, L503.6550, L503.6075, L100.0100, L503.6150, L506.0250 ####[facility] [address] [place], [address] Potassium [Moles/Vol] 4.2 mmol/L Normal 3.5-5.1 [facility] Comment on above: Order Comment: UNKN Performed By: #### L 500.4100, L503.0105, L500.4050, L503.6550, L503.6075, L100.0100, L503.6150, L506.0250 ####[facility] [address] [place], [address] Sodium [Moles/Vol] 136 mmol/L Normal 136-145 [facility] Comment on above: Order Comment: UNKN Performed By: #### L 500.4100, L503.0105, L500.4050, L503.6550, L503.6075, L100.0100, L503.6150, L506.0250 ####[facility] [address] [place], [address] T PROT 7.2 g/dL Normal 6.4-8.2 [facility] Comment on above: Order Comment: UNKN Performed By: #### L 500.4100, L503.0105, L500.4050, L503.6550, L503.6075, L100.0100, L503.6150, L506.0250 ####[facility] [address] [place], [address] Urea nitrogen [Mass/Vol] 19 mg/dL High 7-18 [facility] Comment on above: Order Comment: UNKN Performed By: #### L 500.4100, L503.0105, L500.4050, L503.6550, L503.6075, L100.0100, L503.6150, L506.0250 ####[facility] [address] [place], [address] Ferritinon 02-10-2024 Ferritin [Mass/Vol] 1091 ng/mL High 8-252 [facility] Comment on above: Order Comment: UNKN Performed By: #### L 500.4100, L503.0105, L500.4050, L503.6550, L503.6075, L100.0100, L503.6150, L506.0250 ####[facility] [address] [place], [place], [address] Folates, (Folic Acid)on 01-21 FOLATES 3.80 ng/mL Normal 3.1-55.4 [facility] Comment on above: Order Comment: UNKN Performed By: #### L 500.4100, L503.0105, L500.4050, L503.6550, L503.6075, L100.0100, L503.6150, L506.0250 ####[facility] [address] [place], [place], [address] Ironon 02-10-2024 Iron [Mass/Vol] 48 ug/dL Low 50-170 [facility] Comment on above: Order Comment: UNKN Performed By: #### L 500.4100, L503.0105, L500.4050, L503.6550, L503.6075, L100.0100, L503.6150, L506.0250 ####[facility] [address] [place], [place], [id number] Iron Binding Capacity,Totalo n 02-10-2024 TIBC 277 ug/dL Normal 250-450 [facility] Comment on above: Order Comment: UNKN Performed By: #### L 500.4100, L503.0105, L500.4050, L503.6550, L503.6075, L100.0100, L503.6150, L506.0250 ####[facility] [id number] [place], [place], [address] Lipid Profileon 02-10-2024 Cholesterol [Mass/Vol] 142 mg/dL Normal 200 [facility] Comment on above: Order Comment: UNKN Result Comment: <200 mg/dL Desirable 200-240 mg/dL Borderline >240 mg/dL High Risk Performed By: #### L 500.4100, L503.0105, L500.4050, L503.6550, L503.6075, L100.0100, L503.6150, L506.0250 ####[facility] [address] [place], [address] Cholesterol in HDL [Mass/Vol] 42 mg/dL Normal [facility] Comment on above: Order Comment: UNKN Result Comment: The drugs N-Acetylcysteine and Metamizole may falselydepress this assay. Reference Range HDL <40 mg/dL Low HDL Cholesterol HDL >or= 60 mg/dL High HDL Cholesterol Performed By: #### L 500.4100, L503.0105, L500.4050, L503.6550, L503.6075, L100.0100, L503.6150, L506.0250 ####[facility] [address] [place], [address] Cholesterol in LDL [Mass/Vol] 61 mg/dL Normal 0-130 [facility] Comment on above: Order Comment: UNKN Performed By: #### L 500.4100, L503.0105, L500.4050, L503.6550, L503.6075, L100.0100, L503.6150, L506.0250 ####[facility] [address] [place], [address] Cholesterol in VLDL [Mass/Vol] 39 mg/dL Normal 5-40 [facility] Comment on above: Order Comment: UNKN Performed By: #### L 500.4100, L503.0105, L500.4050, L503.6550, L503.6075, L100.0100, L503.6150, L506.0250 ####[facility] [address] [place], [address] Triglyceride [Mass/Vol] 196 mg/dL Normal [facility] Comment on above: Order Comment: UNKN Result Comment: The drugs N-Acetylcysteine and Metamizole may falselydepress this assay.Serum Triglycerides Reference Interval Normal <150 mg/dL Borderline high 150 - 199 mg/dL High 200 - 499 mg/dL Very High > or = 500 mg/dL Performed By: #### L 500.4100, L503.0105, L500.4050, L503.6550, L503.6075, L100.0100, L503.6150, L506.0250 ####[facility] [address] [place], [address] Vitamin B12on 02-10-2024 Cobalamin (Vitamin B12) [Mass/Vol] 530 pg/mL Normal 211-911 [facility] Comment on above: Performed By: #### L 500.4100, L503.0105, L500.4050, L503.6550, L503.6075, L100.0100, L503.6150, L506.0250 ####[facility] [address] [place], [address] Prothrombin Time w/INRon INR Coag (PPP) [Relative time] 2.1 {INR} Normal [facility] Comment on above: Performed By: #### L 300.3900 ####[facility] [address] [place], [address] PT Coag (PPP) [Time] 23.4 s High 11.7-14.9 [facility] Comment on above: Performed By: #### L 300.3900 ####[facility] [address] [place], [address] SCRN MAMM (CAD)W/MARY LOU BILATo n 02-09-2024 SCRN MAMM (CAD)W/MARY LOU BILAT Normal [facility] Anti-dsDNA Abon 02-07-2024 ANTI-DNA (DS)AB 1 IU/mL Normal 0-9 [facility] Comment on above: Result Comment: Nega tive <5 Equivocal 5 - 9 Positive >9Performed at: [facility] [address] [id number] Director: Wilner Suarez PhD, Phone: [phone] Performed By: #### L 501.1000, L400.0001, L501.1105, L3100.5700, L3100.5500, L501.6710, L3100.5800, L501.4100, L501.4405, L100.0100, L101.9900 ####[facility] [address] [place], [place], [phone] Complement C3on 02-06-2024 COMP C3 166 mg/dL Normal 82-167 [facility] Comment on above: Result Comment: Perf ormed at: [facility] [address] [id number] Director: Wilner Suarez PhD, Phone: [phone] Performed By: #### L 501.1000, L400.0001, L501.1105, L3100.5700, L3100.5500, L501.6710, L3100.5800, L501.4100, L501.4405, L100.0100, L101.9900 ####[facility] [address] [place], [place], [phone] Complement C4on 02-06-2024 COMPLEMENT, C4 50 mg/dL High 12-38 [facility] Comment on above: Performed By: #### L 501.1000, L400.0001, L501.1105, L3100.5700, L3100.5500, L501.6710, L3100.5800, L501.4100, L501.4405, L100.0100, L101.9900 ####[facility] [address] [place], [place], [phone] AST(SGOT)on 02-04-2024 AST [Catalytic activity/Vol] 21 U/L Normal 15-37 [facility] Comment on above: Performed By: #### L 501.1000, L400.0001, L501.1105, L3100.5700, L3100.5500, L501.6710, L3100.5800, L501.4100, L501.4405, L100.0100, L101.9900 ####[facility] [address] [place], [place], [phone] Alanine Aminotransferas (SGP T)on 02-04-2024 ALT [Catalytic activity/Vol] 23 U/L Normal 13-56 [facility] Comment on above: Performed By: #### L 501.1000, L400.0001, L501.1105, L3100.5700, L3100.5500, L501.6710, L3100.5800, L501.4100, L501.4405, L100.0100, L101.9900 ####[facility] [address] [place], [address] BUNon 02-04-2024 Urea nitrogen [Mass/Vol] 23 mg/dL High 7-18 [facility] Comment on above: Performed By: #### L 501.1000, L400.0001, L501.1105, L3100.5700, L3100.5500, L501.6710, L3100.5800, L501.4100, L501.4405, L100.0100, L101.9900 ####[facility] [address] [place], [address] CBC W/Diff, Automatedon 01-20 Absolute Lymph 1.33 X10 3/uL Normal 0.83-4.51 [facility] Comment on above: Performed By: #### L 501.1000, L400.0001, L501.1105, L3100.5700, L3100.5500, L501.6710, L3100.5800, L501.4100, L501.4405, L100.0100, L101.9900 ####[facility] [address] [place], [address] Absolute Neut 7.8 X10 3/uL High 2.0-7.7 [facility] Comment on above: Performed By: #### L 501.1000, L400.0001, L501.1105, L3100.5700, L3100.5500, L501.6710, L3100.5800, L501.4100, L501.4405, L100.0100, L101.9900 ####[facility] [address] [place], [place], [phone] Basophils/100 WBC (Bld) 0.3 % Normal 0-1 [facility] Comment on above: Performed By: #### L 501.1000, L400.0001, L501.1105, L3100.5700, L3100.5500, L501.6710, L3100.5800, L501.4100, L501.4405, L100.0100, L101.9900 ####[facility] [address] [place], [phone]) Eosinophils/100 WBC (Bld) 0.5 % Normal 0-5 [facility] Comment on above: Performed By: #### L 501.1000, L400.0001, L501.1105, L3100.5700, L3100.5500, L501.6710, L3100.5800, L501.4100, L501.4405, L100.0100, L101.9900 ####[facility] [address] [facility] [place], [address] Erythrocyte distribution width (RBC) [Ratio] 15.1 % High 11.6-14.6 [facility] Comment on above: Performed By: #### L 501.1000, L400.0001, L501.1105, L3100.5700, L3100.5500, L501.6710, L3100.5800, L501.4100, L501.4405, L100.0100, L101.9900 ####[facility] [address] [place], [address] Hematocrit (Bld) [Volume fraction] 38.0 % Normal 37-47 [facility] Comment on above: Performed By: #### L 501.1000, L400.0001, L501.1105, L3100.5700, L3100.5500, L501.6710, L3100.5800, L501.4100, L501.4405, L100.0100, L101.9900 ####[facility] [address] [place], [address] Hemoglobin (Bld) [Mass/Vol] 11.9 g/dL Low 12.0-15.0 [facility] Comment on above: Performed By: #### L 501.1000, L400.0001, L501.1105, L3100.5700, L3100.5500, L501.6710, L3100.5800, L501.4100, L501.4405, L100.0100, L101.9900 ####[facility] [address] [place], [address] IG% 0.500 Normal 0.0-0.9 [facility] Comment on above: Result Comment: IG% - Immature Granulocytes (promyelocytes, myelocytes andmetamyelocytes) > 1% indicates that a LEFT SHIFT is Present. Performed By: #### L 501.1000, L400.0001, L501.1105, L3100.5700, L3100.5500, L501.6710, L3100.5800, L501.4100, L501.4405, L100.0100, L101.9900 ####[facility] [address] [place], [address] Lymphocytes/100 WBC (Bld) 13.2 % Low 19-41 [facility] Comment on above: Performed By: #### L 501.1000, L400.0001, L501.1105, L3100.5700, L3100.5500, L501.6710, L3100.5800, L501.4100, L501.4405, L100.0100, L101.9900 ####[facility] [address] [place], [address] MCH (RBC) [Entitic mass] 27.2 pg Normal 27.0-32.0 [facility] Comment on above: Performed By: #### L 501.1000, L400.0001, L501.1105, L3100.5700, L3100.5500, L501.6710, L3100.5800, L501.4100, L501.4405, L100.0100, L101.9900 ####[facility] [address] [place], [address] MCHC (RBC) [Mass/Vol] 31.3 g/dL Low 32-36 [facility] Comment on above: Performed By: #### L 501.1000, L400.0001, L501.1105, L3100.5700, L3100.5500, L501.6710, L3100.5800, L501.4100, L501.4405, L100.0100, L101.9900 ####[facility] [address] [place], [address] MCV (RBC) [Entitic vol] 86.8 fL Normal 81-99 [facility] Comment on above: Performed By: #### L 501.1000, L400.0001, L501.1105, L3100.5700, L3100.5500, L501.6710, L3100.5800, L501.4100, L501.4405, L100.0100, L101.9900 ####[facility] [address] [place], [address] Monocytes/100 WBC (Bld) 8.3 % Normal 0-10 [facility] Comment on above: Performed By: #### L 501.1000, L400.0001, L501.1105, L3100.5700, L3100.5500, L501.6710, L3100.5800, L501.4100, L501.4405, L100.0100, L101.9900 ####[facility] [address] [place], [address] Neutrophils/100 WBC (Bld) 77.2 % High 47-70 [facility] Comment on above: Performed By: #### L 501.1000, L400.0001, L501.1105, L3100.5700, L3100.5500, L501.6710, L3100.5800, L501.4100, L501.4405, L100.0100, L101.9900 ####[facility] [address] [place], [place], [phone]) Nucleated RBC (Bld) [#/Vol] 0 10*3/uL Normal 0-5 [facility] Comment on above: Performed By: #### L 501.1000, L400.0001, L501.1105, L3100.5700, L3100.5500, L501.6710, L3100.5800, L501.4100, L501.4405, L100.0100, L101.9900 ####[facility] [address] [place], [place], [phone]) Platelet mean volume (Bld) [Entitic vol] 10.1 fL Normal 6.2-12.0 [facility] Comment on above: Performed By: #### L 501.1000, L400.0001, L501.1105, L3100.5700, L3100.5500, L501.6710, L3100.5800, L501.4100, L501.4405, L100.0100, L101.9900 ####[facility] [address] [place], [place], [phone](063) Platelets (Bld) [#/Vol] 220 10*3/uL Normal 150-450 [facility] Comment on above: Performed By: #### L 501.1000, L400.0001, L501.1105, L3100.5700, L3100.5500, L501.6710, L3100.5800, L501.4100, L501.4405, L100.0100, L101.9900 ####[facility] [address] [place], [address](543) RBC (Bld) [#/Vol] 4.38 10*6/uL Normal 4.2-5.4 [facility] Comment on above: Performed By: #### L 501.1000, L400.0001, L501.1105, L3100.5700, L3100.5500, L501.6710, L3100.5800, L501.4100, L501.4405, L100.0100, L101.9900 ####[facility] [address] [place], [place], [phone] RDW SD 48.5 fl High 35.1-43.9 [facility] Comment on above: Performed By: #### L 501.1000, L400.0001, L501.1105, L3100.5700, L3100.5500, L501.6710, L3100.5800, L501.4100, L501.4405, L100.0100, L101.9900 ####[facility] [address] [place], [place], [phone] WBC (Bld) [#/Vol] 10.1 10*3/uL Normal 4.4-11.0 [facility] Comment on above: Performed By: #### L 501.1000, L400.0001, L501.1105, L3100.5700, L3100.5500, L501.6710, L3100.5800, L501.4100, L501.4405, L100.0100, L101.9900 ####[facility] [address] [place], [place], [phone] CRPon 02-04-2024 C-REACTIVE PROT 119.00 mg/L High 0.0-3.0 [facility] Comment on above: Result Comment: C-Re active Protein (CRP) provides useful information for thediagnosis, therapy and monitoring of inflammatory processesand associated diseases. For the evaluation of Relative Riskfor Cardiovascular Disease, a High Sensitivity CRP (HSCRP)should be ordered. Performed By: #### L 501.1000, L400.0001, L501.1105, L3100.5700, L3100.5500, L501.6710, L3100.5800, L501.4100, L501.4405, L100.0100, L101.9900 ####[facility] [address] [place], [address] Erythrocyte Sed Rateon 02-03 SED RATE 31 mm/hr High 0-30 [facility] Comment on above: Performed By: #### L 501.1000, L400.0001, L501.1105, L3100.5700, L3100.5500, L501.6710, L3100.5800, L501.4100, L501.4405, L100.0100, L101.9900 ####[facility] [address] [place], [address] Prothrombin Time w/INRon INR Coag (PPP) [Relative time] 1.7 {INR} Normal [facility] Comment on above: Performed By: #### L 300.3900 ####[facility] [address] [place], [address] PT Coag (PPP) [Time] 20.3 s High 11.7-14.9 [facility] Comment on above: Performed By: #### L 300.3900 ####[facility] [address] [place], [address] Serum Creatinine AND GFRon 04-05-2023 Creatinine [Mass/Vol] 0.89 mg/dL Normal 0.55-1.02 [facility] Comment on above: Result Comment: The validity of the calculated GFR GFRAA in patients over70 years has not been determined. Clinical correlation isessential. Performed By: #### L 501.1000, L400.0001, L501.1105, L3100.5700, L3100.5500, L501.6710, L3100.5800, L501.4100, L501.4405, L100.0100, L101.9900 ####[facility] [address] [place], [place], [phone] EST GFR - AA 86 mL/min Normal >60 [facility] Comment on above: Result Comment: Afri can Prydeinig GFR Calc Performed By: #### L 501.1000, L400.0001, L501.1105, L3100.5700, L3100.5500, L501.6710, L3100.5800, L501.4100, L501.4405, L100.0100, L101.9900 ####[facility] [address] [place], [address] GFR/1.73 sq M.predicted among non-blacks MDRD (S/P/Bld) [Vol rate/Area] 71 mL/min/{1.73_m2} Normal >60 [facility] Comment on above: Result Comment: Non- GFR Calc Performed By: #### L 501.1000, L400.0001, L501.1105, L3100.5700, L3100.5500, L501.6710, L3100.5800, L501.4100, L501.4405, L100.0100, L101.9900 ####[facility] [address] [place], [place], [phone] Urinalysis, Completeon 02-03 WBC 0-5 SEEN Normal 0-5 [facility] Comment on above: Order Comment: CLEAN CATCH Performed By: #### L 501.1000, L400.0001, L501.1105, L3100.5700, L3100.5500, L501.6710, L3100.5800, L501.4100, L501.4405, L100.0100, L101.9900 ####[facility] [address] [place], [place], [phone] BILIRUBIN URINE Negative Normal Negative [facility] Comment on above: Order Comment: CLEAN CATCH Performed By: #### L 501.1000, L400.0001, L501.1105, L3100.5700, L3100.5500, L501.6710, L3100.5800, L501.4100, L501.4405, L100.0100, L101.9900 ####[facility] [address] [place], [place], [phone] Clarity (U) Clear Normal Clear [facility] Comment on above: Order Comment: CLEAN CATCH Performed By: #### L 501.1000, L400.0001, L501.1105, L3100.5700, L3100.5500, L501.6710, L3100.5800, L501.4100, L501.4405, L100.0100, L101.9900 ####[facility] [address] [place], [place], [phone] Color (U) Straw Normal Yellow [facility] Comment on above: Order Comment: CLEAN CATCH Performed By: #### L 501.1000, L400.0001, L501.1105, L3100.5700, L3100.5500, L501.6710, L3100.5800, L501.4100, L501.4405, L100.0100, L101.9900 ####[facility] [address] [place], [place], [phone] GLUCOSE, UR Normal Normal Normal [facility] Comment on above: Order Comment: CLEAN CATCH Performed By: #### L 501.1000, L400.0001, L501.1105, L3100.5700, L3100.5500, L501.6710, L3100.5800, L501.4100, L501.4405, L100.0100, L101.9900 ####[facility] [address] [place], [place], [phone] KETONE UR Negative Normal Negative [facility] Comment on above: Order Comment: CLEAN CATCH Performed By: #### L 501.1000, L400.0001, L501.1105, L3100.5700, L3100.5500, L501.6710, L3100.5800, L501.4100, L501.4405, L100.0100, L101.9900 ####[facility] [address] [place], [place], [phone] LEUK ESTERASE Negative Normal Negative [facility] Comment on above: Order Comment: CLEAN CATCH Performed By: #### L 501.1000, L400.0001, L501.1105, L3100.5700, L3100.5500, L501.6710, L3100.5800, L501.4100, L501.4405, L100.0100, L101.9900 ####[facility] [address] [place], [place], [phone] Nitrite Ql (U) Negative Normal Negative [facility] Comment on above: Order Comment: CLEAN CATCH Performed By: #### L 501.1000, L400.0001, L501.1105, L3100.5700, L3100.5500, L501.6710, L3100.5800, L501.4100, L501.4405, L100.0100, L101.9900 ####[facility] [address] [place], [place], [phone] OCCULT BLOOD-UR Negative Normal Negative [facility] Comment on above: Order Comment: CLEAN CATCH Performed By: #### L 501.1000, L400.0001, L501.1105, L3100.5700, L3100.5500, L501.6710, L3100.5800, L501.4100, L501.4405, L100.0100, L101.9900 ####[facility] [address] [place], [place], [phone] pH UR 6.0 Normal 5.0 - 8.0 [facility] Comment on above: Order Comment: CLEAN CATCH Performed By: #### L 501.1000, L400.0001, L501.1105, L3100.5700, L3100.5500, L501.6710, L3100.5800, L501.4100, L501.4405, L100.0100, L101.9900 ####[facility] [address] [place], [address] PROT DIPSTX Negative Normal Negative [facility] Comment on above: Order Comment: CLEAN CATCH Performed By: #### L 501.1000, L400.0001, L501.1105, L3100.5700, L3100.5500, L501.6710, L3100.5800, L501.4100, L501.4405, L100.0100, L101.9900 ####[facility] [address] [place], [address] SP.GR. DIPSTX 1.010 Normal 1.002-1.030 [facility] Comment on above: Order Comment: CLEAN CATCH Performed By: #### L 501.1000, L400.0001, L501.1105, L3100.5700, L3100.5500, L501.6710, L3100.5800, L501.4100, L501.4405, L100.0100, L101.9900 ####[facility] [address] [place], [address] UROBILI Normal Normal Normal [facility] Comment on above: Order Comment: CLEAN CATCH Performed By: #### L 501.1000, L400.0001, L501.1105, L3100.5700, L3100.5500, L501.6710, L3100.5800, L501.4100, L501.4405, L100.0100, L101.9900 ####[facility] [address] [place], [address] BACTERIA 0 SEEN Normal None Seen [facility] Comment on above: Order Comment: CLEAN CATCH Performed By: #### L 501.1000, L400.0001, L501.1105, L3100.5700, L3100.5500, L501.6710, L3100.5800, L501.4100, L501.4405, L100.0100, L101.9900 ####[facility] [address] [place], [address] EPI,SQUAMOUS 0 SEEN Normal 5-10 [facility] Comment on above: Order Comment: CLEAN CATCH Performed By: #### L 501.1000, L400.0001, L501.1105, L3100.5700, L3100.5500, L501.6710, L3100.5800, L501.4100, L501.4405, L100.0100, L101.9900 ####[facility] [address] [place], [address] Mucus Ql (Urine sed) 0 SEEN Normal [facility] Comment on above: Order Comment: CLEAN CATCH Performed By: #### L 501.1000, L400.0001, L501.1105, L3100.5700, L3100.5500, L501.6710, L3100.5800, L501.4100, L501.4405, L100.0100, L101.9900 ####[facility] [address] [place], [address] RBC 0 SEEN Normal 0-5 [facility] Comment on above: Order Comment: CLEAN CATCH Performed By: #### L 501.1000, L400.0001, L501.1105, L3100.5700, L3100.5500, L501.6710, L3100.5800, L501.4100, L501.4405, L100.0100, L101.9900 ####[facility] [address] [place], [address] CNOVon 01-21-2024 CNOV Normal [facility] CNPNon 01-17-2024 CNPN Normal [facility] CNOVon 01-14-2024 CNOV Normal [facility] BILIRUBIN TOTAL BLDOrdered B y: Steph Matthews Adm Asst I on 01-10-2024 Bilirubin [Mass/Vol] 0.40 mg/dL 0.20 - 1.00 [facility] CBC W Auto Differential pane l (Bld)on 01-10-2024 Abs Neut (ANC) 3.2 K/uL 2.0 - 7.7 K/uL [facility] Eosinophils/100 WBC (Bld) 2.0 % 0 - 5.0 [facility] Hematocrit (Bld) [Volume fraction] 33.2 % Abnormal 37.0 - 47.0 % [facility] Hemoglobin (Bld) [Mass/Vol] 10.3 g/dL Abnormal 12.0 - 15.0 g/dL [facility] Neutrophils/100 WBC (Bld) 54.0 % 47.0 - 70.0 [facility] Platelets (Bld) [#/Vol] 232 10*3/uL 150 - 450 K/uL [facility] WBC (Bld) [#/Vol] 6.0 10*3/uL Abnormal 4.4 - 0 K/uL [facility] CRP [Mass/Vol]on 01-10-2024 CRP High sensitivity method (Bld) [Mass/Vol] 11.70 mg/L Abnormal 0 - 3.0 mg/L [facility] Comprehensive metabolic 2000 panelon 01-10-2024 ALP [Catalytic activity/Vol] 169 U/L Abnormal 45 - 117 [facility] ALT [Catalytic activity/Vol] 22 U/L 13 - 56 [facility] AST [Catalytic activity/Vol] 19 U/L 15 - 37 [facility] Creatinine [Mass/Vol] 0.83 mg/dL [facility] ESR Westergren method (Bld) [Velocity]on 01-10-2024 WSR 18 0 - 30 [facility] No Panel Informationon 01-09 Interpretation and review of laboratory results Abnormal [facility] No Panel InformationOrdered By: Steph Matthews Adm Asst I on 01-10-2024 [facility] CASE MANAGEMon 01-09-2024 CASE MANAGEM Normal [facility] CASE MANAGEM Normal [facility] CBC panel Auto (Bld)on 01-08 Erythrocyte distribution width (RBC) [Ratio] 15.3 % High 11.5-15.0 [facility] Comment on above: Order Comment: Speci men Type: BLOOD SPECIMENOrdering Facility: [facility] Address: [address] [place], [place] [id number] Performed By: #### 5 8410-2 ####[facility] LABIA [id number] [place] [address] [place] Hematocrit (Bld) [Volume fraction] 30.9 % Low 36.0-46.0 [facility] Comment on above: Order Comment: Speci men Type: BLOOD SPECIMENOrdering Facility: [facility] Address: [address] [place] [address] Performed By: #### 5 8410-2 ####[facility] [id number] [place] [address] [place] Hemoglobin (Bld) [Mass/Vol] 9.9 g/dL Low 11.5-15.5 [facility] Comment on above: Order Comment: Speci men Type: BLOOD SPECIMENOrdering Facility: [facility] Address: [address] [place] [address] Performed By: #### 5 8410-2 ####[facility] [id number] [place] [address] [place] MCH (RBC) [Entitic mass] 27.4 pg Normal 26.0-34.0 [facility] Comment on above: Order Comment: Speci men Type: BLOOD SPECIMENOrdering Facility: [facility] Address: [address] [place] [address] Performed By: #### 5 8410-2 ####[facility] [id number] [place] [address] [place] MCHC (RBC) [Mass/Vol] 32.0 g/dL Normal 30.5-36.0 [facility] Comment on above: Order Comment: Speci men Type: BLOOD SPECIMENOrdering Facility: [facility] Address: [address] [place] [address] Performed By: #### 5 8410-2 ####[facility] [id number] [place] [address] [place] MCV (RBC) [Entitic vol] 85.6 fL Normal 80.0-100.0 [facility] Comment on above: Order Comment: Speci men Type: BLOOD SPECIMENOrdering Facility: [facility] Address: [address] [place] [address] Performed By: #### 5 8410-2 ####[facility] [id number] [place] [address] [place] Nucleated RBC (Bld) [#/Vol] 10*3/uL Normal <0.01 [facility] Comment on above: Order Comment: Speci men Type: BLOOD SPECIMENOrdering Facility: [facility] Address: [address] [place] [address] Performed By: #### 5 8410-2 ####[facility] [id number] [place] [address] [place] Platelet mean volume (Bld) [Entitic vol] 10.3 fL Normal 9.0-12.7 [facility] Comment on above: Order Comment: Speci men Type: BLOOD SPECIMENOrdering Facility: [facility] Address: [address] [place] [address] Performed By: #### 5 8410-2 ####[facility] [id number] [place] [address] [place] Platelets (Bld) [#/Vol] 207 10*3/uL Normal 150-400 [facility] Comment on above: Order Comment: Speci men Type: BLOOD SPECIMENOrdering Facility: [facility] Address: [address] [place] [address] Performed By: #### 5 8410-2 ####[facility] [id number] [place] [address] [place] RBC (Bld) [#/Vol] 3.61 10*6/uL Low 3.90-5.20 [facility] Comment on above: Order Comment: Speci men Type: BLOOD SPECIMENOrdering Facility: [facility] Address: [address] [place] [address] Performed By: #### 5 8410-2 ####[facility] [id number] [place] [address] [place] WBC (Bld) [#/Vol] 6.13 10*3/uL Normal 3.70-11.00 [facility] Comment on above: Order Comment: Speci men Type: BLOOD SPECIMENOrdering Facility: [facility] Address: [address] [place] [address] Performed By: #### 5 8410-2 ####[facility] [id number] [place] [address] [place] CNDSon 01-09-2024 CNDS Normal [facility] Comprehensive metabolic 2000 panelon 01-09-2024 Albumin [Mass/Vol] 3.3 g/dL Low 3.9-4.9 [facility] Comment on above: Order Comment: Speci men Type: BLOOD SPECIMENOrdering Facility: [facility] Address: [address] [place] [address] Performed By: #### 2 4323-8, 17115-8, 7-1 ####[facility] [id number] [place] [address] [place] ALP [Catalytic activity/Vol] 193 U/L High 34-123 [facility] [facility] Comment on above: Order Comment: Speci men Type: BLOOD SPECIMENOrdering Facility: [facility] Address: [address] [place] [address] Performed By: #### 2 4323-8, 02499-2, 2777-1 ####[facility] LABCLIA [id number] [place] [address] [place] ALT [Catalytic activity/Vol] 18 U/L Normal 7-38 [facility] Comment on above: Order Comment: Speci men Type: BLOOD SPECIMENOrdering Facility: [facility] Address: [address] [place] [address] Performed By: #### 2 4323-8, 21723-1, 2776-03 ####[facility] LABCLIA [id number] [place] [address] [place] Anion gap [Moles/Vol] 12 mmol/L Normal 8-15 [facility] Comment on above: Order Comment: Speci men Type: BLOOD SPECIMENOrdering Facility: [facility] Address: [address] [place] [address] Performed By: #### 2 4323-8, , 2776-03 ####[facility] LABCLIA [id number] [place] [address] [place] AST [Catalytic activity/Vol] 22 U/L Normal 13-35 [facility] Comment on above: Order Comment: Speci men Type: BLOOD SPECIMENOrdering Facility: [facility] Address: [address] [place] [address] Performed By: #### 2 4323-8, , 2776-03 ####[facility] LABIA [id number] [place] [address] [place] Bilirubin [Mass/Vol] 0.2 mg/dL Normal 0.2-1.3 [facility] Comment on above: Order Comment: Speci men Type: BLOOD SPECIMENOrdering Facility: [facility] Address: [address] [place] [address] Performed By: #### 2 4323-8, 28890-2, 2776-03 ####[facility] LABIA [id number] [place] [address] [place] Calcium [Mass/Vol] 8.7 mg/dL Normal 8.5-10.2 [facility] Comment on above: Order Comment: Speci men Type: BLOOD SPECIMENOrdering Facility: [facility] Address: [address] [place] [address] Performed By: #### 2 4323-8, 95445-1, 2776- ####[facility] LABCLIA [id number] [place] [id number] [place] Chloride [Moles/Vol] 104 mmol/L Normal 98-107 [facility] Comment on above: Order Comment: Speci men Type: BLOOD SPECIMENOrdering Facility: [facility] Address: [address] [place] [address] Performed By: #### 2 4323-8, , 2776-03 ####[facility] LABIA [id number] [place] [address] [place] CO2 [Moles/Vol] 24 mmol/L Normal 22-30 [facility] Comment on above: Order Comment: Speci men Type: BLOOD SPECIMENOrdering Facility: [facility] Address: [address] [place] [address] Performed By: #### 2 4323-8, , 2776-03 ####[facility] LABIA [id number] [place] [address] [place] Creatinine [Mass/Vol] 0.80 mg/dL Normal 0.58-0.96 [facility] Comment on above: Order Comment: Speci men Type: BLOOD SPECIMENOrdering Facility: [facility] Address: [address] [place] [address] Performed By: #### 2 4323-8, , 2776-03 ####[facility] LABIA [id number] [place] [address] [place] Creatinine and Glomerular filtration rate.predicted panel (S/P/Bld) 90 mL/min/1.73m??? Normal >=60 [facility] Comment on above: Order Comment: Speci men Type: BLOOD SPECIMENOrdering Facility: [facility] Address: [address] [place] [address] Result Comment: Yani mated Glomerular Filtration Rate (eGFR) is calculated using the 2020 CKD-EPI creatinine equation. This equation utilizes serum creatinine, sex, and age as parameters. The creatinine assay has traceable calibration to isotope dilution-mass spectrometry. Refer to KDIGO guidelines for clinical interpretation. In patients with unstable renal function, e.g. those with acute kidney injury, the eGFR may not accurately reflect actual GFR. Performed By: #### 2 4323-8, , 2776-03 ####[facility] LABCLIA [id number] [address] [address] [place] Glucose [Mass/Vol] 103 mg/dL High 74-99 [facility] Comment on above: Order Comment: Elgin lyons Type: BLOOD SPECIMENOrdering Facility: [facility] Address: [address] [place] [address] Result Comment: The [place] Diabetes Association (ADA) provides guidance for cutoff values for fasting glucose and random glucose. The ADA defines fasting as no caloric intake for at least 8 hours. Fasting plasma glucose results between 100 to 125 mg/dL indicate increased risk for diabetes (prediabetes).Fasting plasma glucose results greater than or equal to 126 mg/dL meet the criteria for diagnosis of diabetes. In the absence of unequivocal hyperglycemia, results should be confirmed by repeat testing. In a patient with classic symptoms of hyperglycemia or hyperglycemic crisis, random plasma glucose results greater than or equal to 200 mg/dL meet the criteria for diagnosis of diabetes.Reference: Standards of Medical Care in Diabetes 2016, [place] Diabetes Association. Diabetes Care. 2016.39(Suppl 1). Performed By: #### 2 4323-8, , 2776-03 ####[facility] LABIA [id number] [address] [address] [place] Potassium [Moles/Vol] 4.1 mmol/L Normal 3.7-5.1 [facility] Comment on above: Order Comment: Elgin lyons Type: BLOOD SPECIMENOrdering Facility: [facility] Address: [address] [place] [address] Performed By: #### 2 4323-8, , 2777-1 ####[facility] LABCLIA [id number] [address] [address] [place] Protein [Mass/Vol] 5.9 g/dL Low 6.3-8.0 [facility] Comment on above: Order Comment: Speci men Type: BLOOD SPECIMENOrdering Facility: [facility] Address: [address] [place] [address] Performed By: #### 2 4323-8, , 2776- ####[facility] LABCLIA [id number] [place] [phone] [place] Sodium [Moles/Vol] 140 mmol/L Normal 136-144 [facility] Comment on above: Order Comment: Speci men Type: BLOOD SPECIMENOrdering Facility: [facility] Address: [address] [place] [address] Performed By: #### 2 4323-8, , 2776- ####[facility] LABCLIA [id number] [place] [address] [place] Urea nitrogen [Mass/Vol] 9 mg/dL Normal 7-21 [facility] Comment on above: Order Comment: Speci men Type: BLOOD SPECIMENOrdering Facility: [facility] Address: [address] [place] [address] Performed By: #### 2 4323-8, , 2776-03 ####[facility] LABCLIA [id number] [place] [phone] [place] Magnesium SerPl-mCncon 01-08 Magnesium [Mass/Vol] 1.8 mg/dL Normal 1.7-2.3 [facility] Comment on above: Order Comment: Speci men Type: BLOOD SPECIMENOrdering Facility: [facility] Address: [address] [place] [address] Performed By: #### 2 4323-8, 00205-1, 2776- ####[facility] LABCLIA [id number] [place] [address] [place] NURSING PROGon 01-09-2024 NURSING PROG Normal [facility] PT panel Coag (PPP)on 2023 INR Coag (PPP) [Relative time] 1.5 {INR} High 0.9-1.3 [facility] Comment on above: Order Comment: Specgema lyons Type: BLOOD SPECIMENOrdering Facility: [facility] Address: [address] [place] [address] Result Comment: Jesusita min K Antagonist (VKA) Therapeutic Range: INR 2 to 3 (Target INR of 2.5)Note: For patients treated with VKA drugs, such as warfarin, the [place] [employer] 2012 Guideline recommends a therapeutic INR range of 2 to 3 (target INR of 2.5). This recommendation includes high-risk patients with antiphospholipid syndrome with previous arterial or venous thromboembolism, current-generation mechanical or bioprosthetic aortic heart valve replacement.Note: Patients with mechanical aortic valve replacement and additional risk factors for thromboembolic events (atrial fibrillation, previous thromboembolism, LV dysfunction, hypercoagulable conditions) or an older generation mechanical AVR (i.e., ball in-Cage) or any mechanical MVR should have a INR therapeutic range of 2.5 to 3.5 (target INR of 3).Kristie ZAMORA, et al. Chest 2012, 141:7S-47SRafa CHAPA, et al. [facility] 2017, 70: 252-289 Performed By: #### 3 4528-0 ####[facility] LABIA [id number] [place] [id number] [place] PT Coag (PPP) [Time] 15.6 s High 9.7-13.0 [facility] Comment on above: Order Comment: Elgin lyons Type: BLOOD SPECIMENOrdering Facility: [facility] Address: [address] [place] [address] Performed By: #### 3 4528-0 ####[facility] LABIA [id number] [place] [address] [place] PTT, ANTICOAGULANT THERAPYon 01-09-2024 aPTT Coag (PPP) [Time] 60.8 s High 23.0-32.4 [facility] Comment on above: Order Comment: Speci men Type: BLOOD SPECIMENOrdering Facility: [facility] Address: [address] [place] [address] Performed By: #### P TTAC ####[facility] LABCLIA [id number] [place] [address] [place] Phosphate SerPl-mCncon 01-08 Phosphate [Mass/Vol] 4.2 mg/dL Normal 2.7-4.8 [facility] Comment on above: Order Comment: Speci men Type: BLOOD SPECIMENOrdering Facility: [facility] Address: [address] [place] [address] Performed By: #### 2 4323-8, 83093-9, 2777-1 ####[facility] LABIA [id number] [place] [address] [place] THERAPY NTon 01-09-2024 THERAPY NT Normal [facility] CBC panel Auto (Bld)on 01-07 Erythrocyte distribution width (RBC) [Ratio] 15.2 % High 11.5-15.0 [facility] Comment on above: Order Comment: Speci men Type: BLOOD SPECIMENOrdering Facility: [facility] Address: [address] [place] [address] Performed By: #### 5 8410-2 ####[facility] LABIA [id number] [address] [place] Hematocrit (Bld) [Volume fraction] 30.9 % Low 36.0-46.0 [facility] Comment on above: Order Comment: Speci men Type: BLOOD SPECIMENOrdering Facility: [facility] Address: [address] [place] [address] Performed By: #### 5 8410-2 ####[facility] LABCLIA [id number] [place] [address] [place] Hemoglobin (Bld) [Mass/Vol] 9.8 g/dL Low 11.5-15.5 [facility] Comment on above: Order Comment: Speci men Type: BLOOD SPECIMENOrdering Facility: [facility] Address: [address] [place] [address] Performed By: #### 5 8410-2 ####[facility] LABIA [id number] [place] [address] [place] MCH (RBC) [Entitic mass] 27.5 pg Normal 26.0-34.0 [facility] Comment on above: Order Comment: Speci men Type: BLOOD SPECIMENOrdering Facility: [facility] Address: [address] [place] [address] Performed By: #### 5 8410-2 ####[facility] LABIA [id number] [place] [address] [place] MCHC (RBC) [Mass/Vol] 31.7 g/dL Normal 30.5-36.0 [facility] Comment on above: Order Comment: Speci men Type: BLOOD SPECIMENOrdering Facility: [facility] Address: [address] [place] [address] Performed By: #### 5 8410-2 ####[facility] LABIA [id number] [place] [address] [place] MCV (RBC) [Entitic vol] 86.8 fL Normal 80.0-100.0 [facility] Comment on above: Order Comment: Speci men Type: BLOOD SPECIMENOrdering Facility: [facility] Address: [address] [place] [address] Performed By: #### 5 8410-2 ####[facility] LABCLIA [id number] [place] [address] [place] Nucleated RBC (Bld) [#/Vol] 10*3/uL Normal <0.01 [facility] Comment on above: Order Comment: Speci men Type: BLOOD SPECIMENOrdering Facility: [facility] Address: [address] [place] [address] Performed By: #### 5 8410-2 ####[facility] LABIA [id number] [place] [address] [place] Platelet mean volume (Bld) [Entitic vol] 10.4 fL Normal 9.0-12.7 [facility] Comment on above: Order Comment: Speci men Type: BLOOD SPECIMENOrdering Facility: [facility] Address: [address] [place] [address] Performed By: #### 5 8410-2 ####[facility] LABIA [id number] [place] [address] [place] Platelets (Bld) [#/Vol] 159 10*3/uL Normal 150-400 [facility] Comment on above: Order Comment: Speci men Type: BLOOD SPECIMENOrdering Facility: [facility] Address: [address] [place] [address] Performed By: #### 5 8410-2 ####[facility] LABIA [id number] [place] [address] [place] RBC (Bld) [#/Vol] 3.56 10*6/uL Low 3.90-5.20 [facility] Comment on above: Order Comment: Speci men Type: BLOOD SPECIMENOrdering Facility: [facility] Address: [address] [place] [address] Performed By: #### 5 8410-2 ####[facility] LABIA [id number] [place] [address] [place] WBC (Bld) [#/Vol] 5.03 10*3/uL Normal 3.70-11.00 [facility] Comment on above: Order Comment: Speci men Type: BLOOD SPECIMENOrdering Facility: [facility] Address: [address] [place] [address] [place] [address] Performed By: #### 5 8410-2 ####[facility] LABCLIA [id number] [address] [address] [place] CONSULT PROGon 01-08-2024 CONSULT PROG Normal [facility] metabolic 2000 panelon 01-08-2024 Albumin [Mass/Vol] 3.0 g/dL Low 3.9-4.9 [facility] Comment on above: Order Comment: Speci men Type: BLOOD SPECIMENOrdering Facility: [facility] Address: [address] [place] [address] Performed By: #### 2 4323-8, , 2776-03 ####[facility] LABCLIA [id number] [place] [address] [place] ALP [Catalytic activity/Vol] 198 U/L High 34-123 [facility] Comment on above: Order Comment: Speci men Type: BLOOD SPECIMENOrdering Facility: [facility] Address: [address] [place] [address] Performed By: #### 2 4323-8, , 2776-03 ####[facility] LABCLIA [id number] [place] [address] [place] ALT [Catalytic activity/Vol] 18 U/L Normal 7-38 [facility] Comment on above: Order Comment: Speci men Type: BLOOD SPECIMENOrdering Facility: [facility] Address: [address] [place] [address] Performed By: #### 2 4323-8, , 2776-03 ####[facility] LABIA [id number] [place] [phone] [place] Anion gap [Moles/Vol] 10 mmol/L Normal 8-15 [facility] Comment on above: Order Comment: Speci men Type: BLOOD SPECIMENOrdering Facility: [facility] Address: [address] [place] [address] Performed By: #### 2 4323-8, , 2776-03 ####[facility] LABCLIA [id number] [address] [address] [place] AST [Catalytic activity/Vol] 17 U/L Normal 13-35 [facility] Comment on above: Order Comment: Speci men Type: BLOOD SPECIMENOrdering Facility: [facility] Address: [address] [place], [place] [address] Performed By: #### 2 4323-8, , 2776-03 ####[facility] LABCLIA [id number] [place] [address] [place] Bilirubin [Mass/Vol] 0.2 mg/dL Normal 0.2-1.3 [facility] Comment on above: Order Comment: Speci men Type: BLOOD SPECIMENOrdering Facility: [facility] Address: [address] [place] [address] Performed By: #### 2 4323-8, , 2776-03 ####[facility] LABIA [id number] [place] [address] [place] Calcium [Mass/Vol] 9.0 mg/dL Normal 8.5-10.2 [facility] Comment on above: Order Comment: Speci men Type: BLOOD SPECIMENOrdering Facility: [facility] Address: [address] [place], [place] [address] Performed By: #### 2 4323-8, , 2776-03 ####[facility] LABIA [id number] [place] [phone] [place] Chloride [Moles/Vol] 106 mmol/L Normal 98-107 [facility] Comment on above: Order Comment: Speci men Type: BLOOD SPECIMENOrdering Facility: [facility] Address: [address] [place], [place] [address] Performed By: #### 2 4323-8, , 2776-03 ####[facility] LABIA [id number] [place] [phone] [place] CO2 [Moles/Vol] 23 mmol/L Normal 22-30 [facility] Comment on above: Order Comment: Speci men Type: BLOOD SPECIMENOrdering Facility: [facility] Address: [address] [place] [address] Performed By: #### 2 432-8, , 2776-03 ####[facility] LABIA [id number] [place] [phone] [place] Creatinine [Mass/Vol] 0.91 mg/dL Normal 0.58-0.96 [facility] Comment on above: Order Comment: Speci men Type: BLOOD SPECIMENOrdering Facility: [facility] Address: [address] [place] [address] Performed By: #### 2 4328, , 2776-03 ####[facility] LABIA [id number] [place] [address] [place] [facility] Creatinine and Glomerular filtration rate.predicted panel (S/P/Bld) 77 mL/min/1.73m??? Normal >=60 [facility] Comment on above: Order Comment: Speci men Type: BLOOD SPECIMENOrdering Facility: [facility] Address: [address] [place] [address] Result Comment: Yani mated Glomerular Filtration Rate (eGFR) is calculated using the 2020 CKD-EPI creatinine equation. This equation utilizes serum creatinine, sex, and age as parameters. The creatinine assay has traceable calibration to isotope dilution-mass spectrometry. Refer to KDIGO guidelines for clinical interpretation. In patients with unstable renal function, e.g. those with acute kidney injury, the eGFR may not accurately reflect actual GFR. Performed By: #### 2 4323-8, , 2776-03 ####[facility] LABIA [id number] [place] [phone] [place] Glucose [Mass/Vol] 101 mg/dL High 74-99 [facility] Comment on above: Order Comment: Speci men Type: BLOOD SPECIMENOrdering Facility: [facility] Address: [address] [place] [address] Result Comment: The [place] Diabetes Association (ADA) provides guidance for cutoff values for fasting glucose and random glucose. The ADA defines fasting as no caloric intake for at least 8 hours. Fasting plasma glucose results between 100 to 125 mg/dL indicate increased risk for diabetes (prediabetes).Fasting plasma glucose results greater than or equal to 126 mg/dL meet the criteria for diagnosis of diabetes. In the absence of unequivocal hyperglycemia, results should be confirmed by repeat testing. In a patient with classic symptoms of hyperglycemia or hyperglycemic crisis, random plasma glucose results greater than or equal to 200 mg/dL meet the criteria for diagnosis of diabetes.Reference: Standards of Medical Care in Diabetes 2016, [place] [employer]. Diabetes Care. 2016.39(Suppl 1). Performed By: #### 2 4323-8, , 2776-03 ####[facility] LABCLIA [id number] [place] [address] [place] Potassium [Moles/Vol] 3.9 mmol/L Normal 3.7-5.1 [facility] Comment on above: Order Comment: Speci men Type: BLOOD SPECIMENOrdering Facility: [facility] Address: [address] [place] [address] Performed By: #### 2 4323-8, , 2776-03 ####[facility] LABCLIA [id number] [place] [phone] [place] Protein [Mass/Vol] 5.6 g/dL Low 6.3-8.0 [facility] Comment on above: Order Comment: Speci men Type: BLOOD SPECIMENOrdering Facility: [facility] Address: [address] [place] [address] Performed By: #### 2 4323-8, , 2776-03 ####[facility] LABCLIA [id number] [place] [phone] [place] Sodium [Moles/Vol] 139 mmol/L Normal 136-144 [facility] Comment on above: Order Comment: Speci men Type: BLOOD SPECIMENOrdering Facility: [facility] Address: [address] [place] [address] Performed By: #### 2 4323-8, 23546-8, 2777-1 ####[facility] LABIA [id number] [place] [address] [place] Urea nitrogen [Mass/Vol] 9 mg/dL Normal 7-21 [facility] Comment on above: Order Comment: Speci men Type: BLOOD SPECIMENOrdering Facility: [facility] Address: [address] [place] [address] Performed By: #### 2 4323-8, 27705-9, 2777-1 ####[facility] LABIA [id number] [place] [phone] [place] Magnesium SerPl-mCncon 01-07 Magnesium [Mass/Vol] 1.8 mg/dL Normal 1.7-2.3 [facility] Comment on above: Order Comment: Speci men Type: BLOOD SPECIMENOrdering Facility: [facility] Address: [address] [place] [address] Performed By: #### 2 4323-8, 79952-0, 2777-1 ####[facility] [id number] [place] [phone] [place] PT EDon 01-08-2024 PT ED Normal [facility] PT panel Coag (PPP)on 2023 INR Coag (PPP) [Relative time] 1.7 {INR} High 0.9-1.3 [facility] Comment on above: Order Comment: Speci men Type: BLOOD SPECIMENOrdering Facility: [facility] Address: [address] [place] [address] Result Comment: Jesusita min K Antagonist (VKA) Therapeutic Range: INR 2 to 3 (Target INR of 2.5)Note: For patients treated with VKA drugs, such as warfarin, the [employer] [employer] 2012 Guideline recommends a therapeutic INR range of 2 to 3 (target INR of 2.5). This recommendation includes high-risk patients with antiphospholipid syndrome with previous arterial or venous thromboembolism, current-generation mechanical or bioprosthetic aortic heart valve replacement.Note: Patients with mechanical aortic valve replacement and additional risk factors for thromboembolic events (atrial fibrillation, previous thromboembolism, LV dysfunction, hypercoagulable conditions) or an older generation mechanical AVR (i.e., ball in-Cage) or any mechanical MVR should have a INR therapeutic range of 2.5 to 3.5 (target INR of 3).Kristie GH, et al. Chest 2012, 141:7S-47SNishimkathy RA, et al. [facility] 2017, 70: 252-289 Performed By: #### 3 4528-0, PTTAC ####[facility] LABCLIA [id number] [place] [address] [place] PT Coag (PPP) [Time] 17.1 s High 9.7-13.0 [facility] Comment on above: Order Comment: Speci men Type: BLOOD SPECIMENOrdering Facility: [facility] Address: [address] [place] [address] Performed By: #### 3 4528-0, PTTAC ####[facility] LABIA [id number] [place] [address] [place] PTT, ANTICOAGULANT THERAPYon 01-08-2024 aPTT Coag (PPP) [Time] 57.8 s High 23.0-32.4 [facility] Comment on above: Order Comment: Speci men Type: BLOOD SPECIMENOrdering Facility: [facility] Address: [address] [place] [address] Performed By: #### P TTAC ####[facility] LABCLIA [id number] [place] [address] [place] aPTT Coag (PPP) [Time] 56.9 s High 23.0-32.4 [facility] Comment on above: Order Comment: Speci men Type: BLOOD SPECIMENOrdering Facility: [facility] Address: [address] [place] [address] Performed By: #### P TTAC ####[facility] LABCLIA [id number] [place] [address] [place] aPTT Coag (PPP) [Time] 115.2 s High 23.0-32.4 [facility] Comment on above: Order Comment: Speci men Type: BLOOD SPECIMENOrdering Facility: [facility] Address: [address] [place] [address] Result Comment: Samp le checked for clot.Result rechecked. Performed By: #### 3 4528-0, PTTAC ####[facility] LABCLIA [id number] [place] [address] [place] Phosphate SerPl-mCncon 01-07 Phosphate [Mass/Vol] 3.9 mg/dL Normal 2.7-4.8 [facility] Comment on above: Order Comment: Speci men Type: BLOOD SPECIMENOrdering Facility: [facility] Address: [address] [place] [address] Performed By: #### 2 4323-8, 66423-4, 2777-1 ####[facility] LABCLIA [id number] [place] [address] [place] CASE MANAGEMon 01-07-2024 CASE MANAGEM Normal [facility] CBC panel Auto (Bld)on 01-06 Erythrocyte distribution width (RBC) [Ratio] 15.2 % High 11.5-15.0 [facility] Comment on above: Order Comment: Speci men Type: BLOOD SPECIMENOrdering Facility: [facility] Address: [address] [place] [address] Performed By: #### 5 8410-2 ####[facility] LABCLIA [id number] [place] [address] [place] Hematocrit (Bld) [Volume fraction] 30.8 % Low 36.0-46.0 [facility] Comment on above: Order Comment: Speci men Type: BLOOD SPECIMENOrdering Facility: [facility] Address: [address] [place] [address] Performed By: #### 5 8410-2 ####[facility] LABIA [id number] [place] [address] [place] Hemoglobin (Bld) [Mass/Vol] 10.0 g/dL Low 11.5-15.5 [facility] Comment on above: Order Comment: Speci men Type: BLOOD SPECIMENOrdering Facility: [facility] Address: [address] [place] [address] Performed By: #### 5 8410-2 ####[facility] LABIA [id number] [place] [address] [place] MCH (RBC) [Entitic mass] 27.3 pg Normal 26.0-34.0 [facility] Comment on above: Order Comment: Speci men Type: BLOOD SPECIMENOrdering Facility: [facility] Address: [address] [place] [address] Performed By: #### 5 8410-2 ####[facility] LABIA [id number] [place] [address] [place] MCHC (RBC) [Mass/Vol] 32.5 g/dL Normal 30.5-36.0 [facility] Comment on above: Order Comment: Speci men Type: BLOOD SPECIMENOrdering Facility: [facility] Address: [address] [place] [address] Performed By: #### 5 8410-2 ####[facility] LABIA [id number] [place] [address] [place] MCV (RBC) [Entitic vol] 84.2 fL Normal 80.0-100.0 [facility] Comment on above: Order Comment: Speci men Type: BLOOD SPECIMENOrdering Facility: [facility] Address: [address] [place] [address] Performed By: #### 5 8410-2 ####[facility] LABCLIA [id number] [place] [address] [place] Nucleated RBC (Bld) [#/Vol] 10*3/uL Normal <0.01 [facility] Comment on above: Order Comment: Speci men Type: BLOOD SPECIMENOrdering Facility: [facility] Address: [address] [place] [address] Performed By: #### 5 8410-2 ####[facility] LABIA [id number] [place] [address] [place] Platelet mean volume (Bld) [Entitic vol] 10.3 fL Normal 9.0-12.7 [facility] Comment on above: Order Comment: Speci men Type: BLOOD SPECIMENOrdering Facility: [facility] Address: [address] [place] [address] Performed By: #### 5 8410-2 ####[facility] LABIA [id number] [place] [address] [place] Platelets (Bld) [#/Vol] 175 10*3/uL Normal 150-400 [facility] Comment on above: Order Comment: Speci men Type: BLOOD SPECIMENOrdering Facility: [facility] Address: [address] [place] [address] Performed By: #### 5 8410-2 ####[facility] LABIA [id number] [place] [address] [place] RBC (Bld) [#/Vol] 3.66 10*6/uL Low 3.90-5.20 [facility] Comment on above: Order Comment: Speci men Type: BLOOD SPECIMENOrdering Facility: [facility] Address: [address] [place] [address] Performed By: #### 5 8410-2 ####[facility] LABCLIA [id number] [place] [address] [place] WBC (Bld) [#/Vol] 5.15 10*3/uL Normal 3.70-11.00 [facility] Comment on above: Order Comment: Speci men Type: BLOOD SPECIMENOrdering Facility: [facility] Address: [address] [place] [address] Performed By: #### 5 8410-2 ####[facility] LABCLIA [id number] [place] [address] [place] CNCNPATEDon 01-07-2024 CNCNPATED Normal [facility] CNPNon 01-07-2024 CNPN Normal [facility] CONSULT PROGon 01-07-2024 CONSULT PROG Normal [facility] Comprehensive metabolic 2000 panelon 01-07-2024 Albumin [Mass/Vol] 3.3 g/dL Low 3.9-4.9 [facility] Comment on above: Order Comment: Speci men Type: BLOOD SPECIMENOrdering Facility: [facility] Address: [address] [place] [address] Performed By: #### 2 777-1, , ####[facility] LABCLIA [id number] [place] [address] [place] ALP [Catalytic activity/Vol] 222 U/L High 34-123 [facility] Comment on above: Order Comment: Speci men Type: BLOOD SPECIMENOrdering Facility: [facility] Address: [address] [place], [place] [address] [address] Performed By: #### 2 777-1, , ####[facility] LABCLIA [id number] [place] [id number] [place] ALT [Catalytic activity/Vol] 25 U/L Normal 7-38 [facility] Comment on above: Order Comment: Speci men Type: BLOOD SPECIMENOrdering Facility: [facility] Address: [address] [place] [address] Performed By: #### 2 777-1, , ####[facility] LABCLIA [id number] [address] [address] [place] Anion gap [Moles/Vol] 10 mmol/L Normal 8-15 [facility] Comment on above: Order Comment: Speci men Type: BLOOD SPECIMENOrdering Facility: [facility] Address: [address] [place], [place] [address] Performed By: #### 2 777-1, , ####[facility] LABCLIA [id number] [place] [address] [place] AST [Catalytic activity/Vol] 20 U/L Normal 13-35 [facility] Comment on above: Order Comment: Speci men Type: BLOOD SPECIMENOrdering Facility: [facility] Address: [address] [place], [place] [address] Performed By: #### 2 777-1, , ####[facility] LABCLIA [id number] [place] [address] [place] Bilirubin [Mass/Vol] 0.4 mg/dL Normal 0.2-1.3 [facility] Comment on above: Order Comment: Speci men Type: BLOOD SPECIMENOrdering Facility: [facility] Address: [address] [place], [place] [address] Performed By: #### 2 777-1, , ####[facility] LABCLIA [id number] [place] [id number] [place] Calcium [Mass/Vol] 8.9 mg/dL Normal 8.5-10.2 [facility] Comment on above: Order Comment: Speci men Type: BLOOD SPECIMENOrdering Facility: [facility] Address: [address] [place] [address] Performed By: #### 2 777-1, 22030-8, ####[facility] LABCLIA [id number] [place] [address] [place] Chloride [Moles/Vol] 106 mmol/L Normal 98-107 [facility] Comment on above: Order Comment: Speci men Type: BLOOD SPECIMENOrdering Facility: [facility] Address: [address] [place] [address] Performed By: #### 2 777-1, 05680-0, ####[facility] LABCLIA [id number] [place] [address] [place] CO2 [Moles/Vol] 22 mmol/L Normal 22-30 [facility] Comment on above: Order Comment: Speci men Type: BLOOD SPECIMENOrdering Facility: [facility] Address: [address] [place] [address] Performed By: #### 2 777-1, 78933-6, ####[facility] LABIA [id number] [place] [address] [place] Creatinine [Mass/Vol] 0.89 mg/dL Normal 0.58-0.96 [facility] Comment on above: Order Comment: Speci men Type: BLOOD SPECIMENOrdering Facility: [facility] Address: [address] [place] [address] Performed By: #### 2 777-1, 83863-3, ####[facility] LABCLIA [id number] [place] [address] [place] Creatinine and Glomerular filtration rate.predicted panel (S/P/Bld) 80 mL/min/1.73m??? Normal >=60 [facility] Comment on above: Order Comment: Speci men Type: BLOOD SPECIMENOrdering Facility: [facility] Address: [address] [place] [address] Result Comment: Yani mated Glomerular Filtration Rate (eGFR) is calculated using the 2020 CKD-EPI creatinine equation. This equation utilizes serum creatinine, sex, and age as parameters. The creatinine assay has traceable calibration to isotope dilution-mass spectrometry. Refer to KDIGO guidelines for clinical interpretation. In patients with unstable renal function, e.g. those with acute kidney injury, the eGFR may not accurately reflect actual GFR. Performed By: #### 2 777-1, 63532-7, ####[facility] LABCLIA [id number] [place] [id number] [place] Glucose [Mass/Vol] 97 mg/dL Normal 74-99 [facility] Comment on above: Order Comment: Speci men Type: BLOOD SPECIMENOrdering Facility: [facility] Address: [address] [place] [address] Result Comment: The [place] Diabetes Association (ADA) provides guidance for cutoff values for fasting glucose and random glucose. The ADA defines fasting as no caloric intake for at least 8 hours. Fasting plasma glucose results between 100 to 125 mg/dL indicate increased risk for diabetes (prediabetes).Fasting plasma glucose results greater than or equal to 126 mg/dL meet the criteria for diagnosis of diabetes. In the absence of unequivocal hyperglycemia, results should be confirmed by repeat testing. In a patient with classic symptoms of hyperglycemia or hyperglycemic crisis, random plasma glucose results greater than or equal to 200 mg/dL meet the criteria for diagnosis of diabetes.Reference: Standards of Medical Care in Diabetes 2016, [place] [employer]. Diabetes Care. 2016.39(Suppl 1). Performed By: #### 2 777-1, 98738-4, ####[facility] LABCLIA [id number] [place] [id number] [place] Potassium [Moles/Vol] 3.7 mmol/L Normal 3.7-5.1 [facility] Comment on above: Order Comment: Speci men Type: BLOOD SPECIMENOrdering Facility: [facility] Address: [address] [place] [address] Performed By: #### 2 777-1, 41680-3, ####[facility] LABCLIA [id number] [place] [phone] [place] Protein [Mass/Vol] 5.9 g/dL Low 6.3-8.0 [facility] Comment on above: Order Comment: Speci men Type: BLOOD SPECIMENOrdering Facility: [facility] Address: [address] [place] [address] Performed By: #### 2 777-1, 15074-2, ####[facility] LABIA [id number] [place] [address] [place] Sodium [Moles/Vol] 138 mmol/L Normal 136-144 [facility] Comment on above: Order Comment: Speci men Type: BLOOD SPECIMENOrdering Facility: [facility] Address: [address] [place] [address] Performed By: #### 2 777-1, 63134-2, ####[facility] [id number] [place] [address] [place] Urea nitrogen [Mass/Vol] 7 mg/dL Normal 7-21 [facility] Comment on above: Order Comment: Speci men Type: BLOOD SPECIMENOrdering Facility: [facility] Address: [address] [place] [address] Performed By: #### 2 777-1, 18256-7, ####[facility] LABIA [id number] [address] [address] [place] Gastrointestinal pathogens i dentified NATALY+probe Nom (Stl)on 01-07-2024 Campylobacter sp DNA NATALY+probe Nom (Unsp spec) Not detected Normal Not Detected [facility] Comment on above: Order Comment: Speci men Type: STOOL SPECIMENOrdering Facility: [facility] Address: [address] [place] [address] Performed By: #### 7 9390-1 ####[facility] LABCLIA [id number] [place] [address] [place] Salmonella sp DNA NATALY+probe Ql (Unsp spec) Not detected Normal Not Detected [facility] Comment on above: Order Comment: Speci men Type: STOOL SPECIMENOrdering Facility: [facility] Address: [address] [place] [address] Performed By: #### 7 9390-1 ####[facility] LABCLIA [id number] [place] [address] [place] Shiga toxin stx gene NATALY+probe Nom (Unsp spec) Not detected Normal Not Detected [facility] Comment on above: Order Comment: Speci men Type: STOOL SPECIMENOrdering Facility: [facility] Address: [address] [place] [address] Performed By: #### 7 9390-1 ####[facility] LABCLIA [id number] [address] [place] Shigella sp DNA NATALY+probe Ql (Unsp spec) Not detected Normal Not Detected [facility] Comment on above: Order Comment: Speci men Type: STOOL SPECIMENOrdering Facility: [facility] Address: [address] [place] [address] Performed By: #### 7 9390-1 ####[facility] LABIA [id number] [place] [address] [place] Magnesium SerPl-mCncon 01-06 Magnesium [Mass/Vol] 2.0 mg/dL Normal 1.7-2.3 [facility] Comment on above: Order Comment: Speci men Type: BLOOD SPECIMENOrdering Facility: [facility] Address: [address] [place] [address] Performed By: #### 2 777-1, 17918-1, 24975-0 ####[facility] LABCLIA [id number] [place] [address] [place] NUTRITIONon 01-07-2024 NUTRITION Normal [facility] PT panel Coag (PPP)on 2023 INR Coag (PPP) [Relative time] 1.7 {INR} High 0.9-1.3 [facility] Comment on above: Order Comment: Elgin lyons Type: BLOOD SPECIMENOrdering Facility: [facility] Address: [address] [place] [address] Result Comment: Jesusita min K Antagonist (VKA) Therapeutic Range: INR 2 to 3 (Target INR of 2.5)Note: For patients treated with VKA drugs, such as warfarin, the [place] [employer] 2012 Guideline recommends a therapeutic INR range of 2 to 3 (target INR of 2.5). This recommendation includes high-risk patients with antiphospholipid syndrome with previous arterial or venous thromboembolism, current-generation mechanical or bioprosthetic aortic heart valve replacement.Note: Patients with mechanical aortic valve replacement and additional risk factors for thromboembolic events (atrial fibrillation, previous thromboembolism, LV dysfunction, hypercoagulable conditions) or an older generation mechanical AVR (i.e., ball in-Cage) or any mechanical MVR should have a INR therapeutic range of 2.5 to 3.5 (target INR of 3).Davidsontt GH, et al. Chest 2012, 141:7S-47SNishmike RA, et al. [facility] 2017, 70: 252-289 Performed By: #### 3 4528-0 ####[facility] LABIA [id number] [place] [address] [place] PT Coag (PPP) [Time] 17.0 s High 9.7-13.0 [facility] Comment on above: Order Comment: Elgin lyons Type: BLOOD SPECIMENOrdering Facility: [facility] Address: [address] [place] [address] Performed By: #### 3 4528-0 ####[facility] LABIA [id number] [place] [address] [place] PTT, ANTICOAGULANT THERAPYon 01-07-2024 aPTT Coag (PPP) [Time] 63.3 s High 23.0-32.4 [facility] Comment on above: Order Comment: Speci men Type: BLOOD SPECIMENOrdering Facility: [facility] Address: [address] [place] [address] Performed By: #### P TTA ####[facility] LABCLIA [id number] [place] [address] [place] Phosphate SerPl-mCncon 01-06 Phosphate [Mass/Vol] 3.5 mg/dL Normal 2.7-4.8 [facility] Comment on above: Order Comment: Speci men Type: BLOOD SPECIMENOrdering Facility: [facility] Address: [address] [place] [address] Performed By: #### 2 777-1, 31117-9, 90511-9 ####[facility] LABIA [id number] [place] [address] [place] THERAPY NTon 01-07-2024 THERAPY NT Normal [facility] US LEG VEIN DVT LUDWIN VAS LABo n 01-07-2024 US LEG VEIN DVT [facility] VAS LAB Normal [facility] ALKALINE PHOSPHATASE ISOENZY MES (P)on 01-06-2024 ALK PHOS BONE % 33.5 % Normal 10.7-68.3 [facility] Comment on above: Order Comment: Speci men Type: BLOOD SPECIMENOrdering Facility: [facility] Address: [address] [place] [address] Performed By: #### A LKISOP ####[facility] LABCLIA [id number] [place] [address] [place] ALK PHOS LIVER % 66.5 % Normal 26.0-86.2 [facility] Comment on above: Order Comment: Speci men Type: BLOOD SPECIMENOrdering Facility: [facility] Address: [address] [place] [address] Performed By: #### A LKISOP ####[facility] LABIA [id number] [place] BONE FRACTION 79.1 U/L High 12.9-52.6 [facility] Comment on above: Order Comment: Speci men Type: BLOOD SPECIMENOrdering Facility: [facility] Address: [address] [place] [address] Performed By: #### A LKISOP ####[facility] LABCLIA [id number] [place] [address] [place] INTESTINE FRACTION 0.0 U/L Normal 0.0-16.3 [facility] Comment on above: Order Comment: Speci men Type: BLOOD SPECIMENOrdering Facility: [facility] Address: [address] [place] [address] Performed By: #### A LKISOP ####[facility] LABCLIA [id number] [place] [address] [place] LIVER FRACTION 156.9 U/L High 16.0-69.3 [facility] Comment on above: Order Comment: Speci men Type: BLOOD SPECIMENOrdering Facility: [facility] Address: [address] [place] [address] Performed By: #### A LKISOP ####[facility] LABCLIA [id number] [place] [address] [place] Neutrophils/100 WBC (Bld) 0.0 % Normal 0.0-24.2 [facility] Comment on above: Order Comment: Speci men Type: BLOOD SPECIMENOrdering Facility: [facility] Address: [address] [place] [address] Performed By: #### A LKISOP ####[facility] LABIA [id number] [place] [address] [place] ALP SerPl-cCncon 01-06-2024 ALP [Catalytic activity/Vol] 236 U/L High 34-123 [facility] Comment on above: Order Comment: Speci men Type: BLOOD SPECIMENOrdering Facility: [facility] Address: [address] [place] [address] Performed By: #### 6 768-6 ####[facility] LABIA [id number] [place] [address] [place] CBC panel Auto (Bld)on 01-05 Erythrocyte distribution width (RBC) [Ratio] 15.6 % High 11.5-15.0 [facility] Comment on above: Order Comment: Speci men Type: BLOOD SPECIMENOrdering Facility: [facility] Address: [address] [place] [address] Performed By: #### 5 8410-2 ####[facility] LABIA [id number] [place] [address] [place] Hematocrit (Bld) [Volume fraction] 28.3 % Low 36.0-46.0 [facility] Comment on above: Order Comment: Speci men Type: BLOOD SPECIMENOrdering Facility: [facility] Address: [address] [place] [address] Performed By: #### 5 8410-2 ####[facility] LABIA [id number] [place] [address] [place] Hemoglobin (Bld) [Mass/Vol] 9.1 g/dL Low 11.5-15.5 [facility] Comment on above: Order Comment: Speci men Type: BLOOD SPECIMENOrdering Facility: [facility] Address: [address] [place] [address] Performed By: #### 5 8410-2 ####[facility] LABIA [id number] [place] [address] [place] MCH (RBC) [Entitic mass] 27.5 pg Normal 26.0-34.0 [facility] Comment on above: Order Comment: Speci men Type: BLOOD SPECIMENOrdering Facility: [facility] Address: [address] [place] [address] Performed By: #### 5 8410-2 ####[facility] LABIA [id number] [place] [address] [place] MCHC (RBC) [Mass/Vol] 32.2 g/dL Normal 30.5-36.0 [facility] Comment on above: Order Comment: Speci men Type: BLOOD SPECIMENOrdering Facility: [facility] Address: [address] [place] [address] Performed By: #### 5 8410-2 ####[facility] LABIA [id number] [place] [address] [place] MCV (RBC) [Entitic vol] 85.5 fL Normal 80.0-100.0 [facility] Comment on above: Order Comment: Speci men Type: BLOOD SPECIMENOrdering Facility: [facility] Address: [address] [place] [address] Performed By: #### 5 8410-2 ####[facility] LABIA [id number] [place] [address] [place] Nucleated RBC (Bld) [#/Vol] 10*3/uL Normal <0.01 [facility] Comment on above: Order Comment: Speci men Type: BLOOD SPECIMENOrdering Facility: [facility] Address: [address] [place] [address] Performed By: #### 5 8410-2 ####[facility] LABIA [id number] [place] [address] [place] Platelet mean volume (Bld) [Entitic vol] 10.6 fL Normal 9.0-12.7 [facility] Comment on above: Order Comment: Speci men Type: BLOOD SPECIMENOrdering Facility: [facility] Address: [address] [place] [address] Performed By: #### 5 8410-2 ####[facility] LABIA [id number] [place] [address] [place] Platelets (Bld) [#/Vol] 139 10*3/uL Low 150-400 [facility] Comment on above: Order Comment: Speci men Type: BLOOD SPECIMENOrdering Facility: [facility] Address: [address] [place] [address] Performed By: #### 5 8410-2 ####[facility] LABCLIA [id number] [address] [address] [place] RBC (Bld) [#/Vol] 3.31 10*6/uL Low 3.90-5.20 [facility] Comment on above: Order Comment: Speci men Type: BLOOD SPECIMENOrdering Facility: [facility] Address: [address] [place] [address] Performed By: #### 5 8410-2 ####[facility] LABCLIA [id number] [place] [address] [place] WBC (Bld) [#/Vol] 3.64 10*3/uL Low 3.70-11.00 [facility] Comment on above: Order Comment: Speci men Type: BLOOD SPECIMENOrdering Facility: [facility] Address: [address] [place] [address] Performed By: #### 5 8410-2 ####[facility] LABCLIA [id number] [place] [address] [place] CONSULTon 01-06-2024 CONSULT Normal [facility] CONSULT PROGon 01-06-2024 CONSULT PROG Normal [facility] HISTORY PHYSICALon HISTORY PHYSICAL Normal [facility] CBC panel Auto (Bld)on 01-04 Erythrocyte distribution width (RBC) [Ratio] 15.6 % High 11.5-15.0 [facility] Comment on above: Order Comment: Speci men Type: BLOOD SPECIMENOrdering Facility: [facility] Address: [address] [place] [address] Performed By: #### 5 8410-2 ####[facility] LABCLIA [id number] [place] [address] [place] Hematocrit (Bld) [Volume fraction] 27.9 % Low 36.0-46.0 [facility] Comment on above: Order Comment: Speci men Type: BLOOD SPECIMENOrdering Facility: [facility] Address: [address] [place] [address] Performed By: #### 5 8410-2 ####[facility] LABIA [id number] [place] [address] [place] Hemoglobin (Bld) [Mass/Vol] 8.7 g/dL Low 11.5-15.5 [facility] Comment on above: Order Comment: Speci men Type: BLOOD SPECIMENOrdering Facility: [facility] Address: [address] [place] [address] Performed By: #### 5 8410-2 ####[facility] LABIA [id number] [place] [address] [place] MCH (RBC) [Entitic mass] 27.3 pg Normal 26.0-34.0 [facility] Comment on above: Order Comment: Speci men Type: BLOOD SPECIMENOrdering Facility: [facility] Address: [address] [place] [address] Performed By: #### 5 8410-2 ####[facility] LABIA [id number] [place] [address] [place] MCHC (RBC) [Mass/Vol] 31.2 g/dL Normal 30.5-36.0 [facility] Comment on above: Order Comment: Speci men Type: BLOOD SPECIMENOrdering Facility: [facility] Address: [address] [place] [address] Performed By: #### 5 8410-2 ####[facility] LABIA [id number] [place] [address] [place] MCV (RBC) [Entitic vol] 87.5 fL Normal 80.0-100.0 [facility] Comment on above: Order Comment: Speci men Type: BLOOD SPECIMENOrdering Facility: [facility] Address: [address] [place] [address] Performed By: #### 5 8410-2 ####[facility] LABCLIA [id number] [place] [address] [place] Nucleated RBC (Bld) [#/Vol] 10*3/uL Normal <0.01 [facility] Comment on above: Order Comment: Speci men Type: BLOOD SPECIMENOrdering Facility: [facility] Address: [address] [place] [address] Performed By: #### 5 8410-2 ####[facility] LABIA [id number] [place] [address] [place] Platelet mean volume (Bld) [Entitic vol] 11.2 fL Normal 9.0-12.7 [facility] Comment on above: Order Comment: Speci men Type: BLOOD SPECIMENOrdering Facility: [facility] Address: [address] [place] [address] Performed By: #### 5 8410-2 ####[facility] LABIA [id number] [place] [address] [place] Platelets (Bld) [#/Vol] 110 10*3/uL Low 150-400 [facility] Comment on above: Order Comment: Speci men Type: BLOOD SPECIMENOrdering Facility: [facility] Address: [address] [place] [address] Performed By: #### 5 8410-2 ####[facility] LABIA [id number] [place] [address] [place] RBC (Bld) [#/Vol] 3.19 10*6/uL Low 3.90-5.20 [facility] Comment on above: Order Comment: Speci men Type: BLOOD SPECIMENOrdering Facility: [facility] Address: [address] [place] [address] Performed By: #### 5 8410-2 ####[facility] LABCLIA [id number] [place] [address] [place] WBC (Bld) [#/Vol] 3.13 10*3/uL Low 3.70-11.00 [facility] Comment on above: Order Comment: Speci men Type: BLOOD SPECIMENOrdering Facility: [facility] Address: [address] [place] [address] Performed By: #### 5 8410-2 ####[facility] LABCLIA [id number] [place] [address] [place] CNPNon 01-05-2024 CNPN Normal [facility] CONSULTon 01-05-2024 CONSULT Normal [facility] CONSULT PROGon 01-05-2024 CONSULT PROG Normal [facility] Comprehensive metabolic 2000 panelon 01-05-2024 Albumin [Mass/Vol] 3.1 g/dL Low 3.9-4.9 [facility] Comment on above: Order Comment: Speci men Type: BLOOD SPECIMENOrdering Facility: [facility] Address: [address] [place] [address] Performed By: #### 1 9123-9, 2777-, 48206-7 ####[facility] LABCLIA [id number] [place] [address] [place] ALP [Catalytic activity/Vol] 233 U/L High 34-123 [facility] Comment on above: Order Comment: Speci men Type: BLOOD SPECIMENOrdering Facility: [facility] Address: [address] [place] [address] Performed By: #### 1 9123-9, 2777-, 85433-2 ####[facility] LABCLIA [id number] [place] [id number] [place] ALT [Catalytic activity/Vol] 17 U/L Normal 7-38 [facility] Comment on above: Order Comment: Speci men Type: BLOOD SPECIMENOrdering Facility: [facility] Address: [address] [place] [address] Performed By: #### 1 9123-9, 2777-, 37293-8 ####[facility] LABCLIA [id number] [place] [address] [place] Anion gap [Moles/Vol] 12 mmol/L Normal 8-15 [facility] Comment on above: Order Comment: Speci men Type: BLOOD SPECIMENOrdering Facility: [facility] Address: [address] [place] [address] Performed By: #### 1 9123-9, 2777-, 66304-5 ####[facility] LABCLIA [id number] [place] [address] [place] AST [Catalytic activity/Vol] 15 U/L Normal 13-35 [facility] Comment on above: Order Comment: Speci men Type: BLOOD SPECIMENOrdering Facility: [facility] Address: [address] [place] [address] Performed By: #### 1 9123-9, 27709-19, 48635-1 ####[facility] LABIA [id number] [place] [address] [place] Bilirubin [Mass/Vol] 0.3 mg/dL Normal 0.2-1.3 [facility] Comment on above: Order Comment: Speci men Type: BLOOD SPECIMENOrdering Facility: [facility] Address: [address] [place] [address] Performed By: #### 1 9123-9, 2777-, 29373-6 ####[facility] LABCLIA [id number] [place] [address] [place] Calcium [Mass/Vol] 8.4 mg/dL Low 8.5-10.2 [facility] Comment on above: Order Comment: Speci men Type: BLOOD SPECIMENOrdering Facility: [facility] Address: [address] [place] [address] Performed By: #### 1 9123-9, 2777-1, 79554-0 ####[facility] LABCLIA [id number] [place] [address] [place] Chloride [Moles/Vol] 105 mmol/L Normal 98-107 [facility] Comment on above: Order Comment: Speci men Type: BLOOD SPECIMENOrdering Facility: [facility] Address: [address] [place] [address] Performed By: #### 1 9123-9, 2777-1, 66388-0 ####[facility] LABCLIA [id number] [place] [address] [place] CO2 [Moles/Vol] 21 mmol/L Low 22-30 [facility] Comment on above: Order Comment: Speci men Type: BLOOD SPECIMENOrdering Facility: [facility] Address: [address] [place] [address] Performed By: #### 1 9123-9, 2777-, 06195-9 ####[facility] LABIA [id number] [place] [address] [place] Creatinine [Mass/Vol] 0.88 mg/dL Normal 0.58-0.96 [facility] Comment on above: Order Comment: Speci men Type: BLOOD SPECIMENOrdering Facility: [facility] Address: [address] [place] [address] Performed By: #### 1 9123-9, 2777-, 67625-0 ####[facility] LABIA [id number] [place] [address] [place] Creatinine and Glomerular filtration rate.predicted panel (S/P/Bld) 81 mL/min/1.73m??? Normal >=60 [facility] Comment on above: Order Comment: Speci men Type: BLOOD SPECIMENOrdering Facility: [facility] Address: [address] [place] [address] Result Comment: Yani mated Glomerular Filtration Rate (eGFR) is calculated using the 2020 CKD-EPI creatinine equation. This equation utilizes serum creatinine, sex, and age as parameters. The creatinine assay has traceable calibration to isotope dilution-mass spectrometry. Refer to KDIGO guidelines for clinical interpretation. In patients with unstable renal function, e.g. those with acute kidney injury, the eGFR may not accurately reflect actual GFR. Performed By: #### 1 9123-9, 2777-, 48702-2 ####[facility] LABCLIA [id number] [place] [address] [place] Glucose [Mass/Vol] 92 mg/dL Normal 74-99 [facility] Comment on above: Order Comment: Elgin lyons Type: BLOOD SPECIMENOrdering Facility: [facility] Address: [address] [place] [address] Result Comment: The [place] Diabetes Association (ADA) provides guidance for cutoff values for fasting glucose and random glucose. The ADA defines fasting as no caloric intake for at least 8 hours. Fasting plasma glucose results between 100 to 125 mg/dL indicate increased risk for diabetes (prediabetes).Fasting plasma glucose results greater than or equal to 126 mg/dL meet the criteria for diagnosis of diabetes. In the absence of unequivocal hyperglycemia, results should be confirmed by repeat testing. In a patient with classic symptoms of hyperglycemia or hyperglycemic crisis, random plasma glucose results greater than or equal to 200 mg/dL meet the criteria for diagnosis of diabetes.Reference: Standards of Medical Care in Diabetes 2016, [place] Diabetes Association. Diabetes Care. 2016.39(Suppl 1). Performed By: #### 1 9123-9, 2777-, 86008-1 ####[facility] LABIA [id number] [place] [id number] [place] Potassium [Moles/Vol] 3.6 mmol/L Low 3.7-5.1 [facility] Comment on above: Order Comment: Elgin lyons Type: BLOOD SPECIMENOrdering Facility: [facility] Address: [address] [place] [address] Performed By: #### 1 9123-9, 2776-03, ####[facility] LABCLIA [id number] [address] [address] [place] Protein [Mass/Vol] 5.4 g/dL Low 6.3-8.0 [facility] Comment on above: Order Comment: Speci men Type: BLOOD SPECIMENOrdering Facility: [facility] Address: [address] [place] [address] Performed By: #### 1 9123-9, 2776-03, ####[facility] LABCLIA [id number] [place] [address] [place] Sodium [Moles/Vol] 138 mmol/L Normal 136-144 [facility] Comment on above: Order Comment: Speci men Type: BLOOD SPECIMENOrdering Facility: [facility] Address: [address] [place] [address] Performed By: #### 1 9123-9, 2776-03, ####[facility] LABCLIA [id number] [place] [address] [place] Urea nitrogen [Mass/Vol] 8 mg/dL Normal 7-21 [facility] Comment on above: Order Comment: Speci men Type: BLOOD SPECIMENOrdering Facility: [facility] Address: [address] [place] [address] Performed By: #### 1 9123-9, 2776-03, ####[facility] LABCLIA [id number] [address] [address] [place] Albumin [Mass/Vol] 3.1 g/dL Low 3.9-4.9 [facility] Comment on above: Order Comment: Speci men Type: BLOOD SPECIMENOrdering Facility: [facility] Address: [address] [place] [address] Performed By: #### 1 9123-9, 65014-9 ####[facility] LABCLIA [id number] [place] [address] [place] ALP [Catalytic activity/Vol] 220 U/L High 34-123 [facility] Comment on above: Order Comment: Speci men Type: BLOOD SPECIMENOrdering Facility: [facility] Address: [address] [place] [address] Performed By: #### 1 9123-9, 51299-4 ####[facility] LABCLIA [id number] [place] [address] [place] ALT [Catalytic activity/Vol] 19 U/L Normal 7-38 [facility] Comment on above: Order Comment: Speci men Type: BLOOD SPECIMENOrdering Facility: [facility] Address: [address] [place] [address] Performed By: #### 1 9123-9, 67372-2 ####[facility] LABCLIA [id number] [place] [address] [place] Anion gap [Moles/Vol] 10 mmol/L Normal 8-15 [facility] Comment on above: Order Comment: Speci men Type: BLOOD SPECIMENOrdering Facility: [facility] Address: [address] [place] [address] Performed By: #### 1 9123-9, 36502-2 ####[facility] LABCLIA [id number] [place] [address] [place] AST [Catalytic activity/Vol] 18 U/L Normal 13-35 [facility] Comment on above: Order Comment: Speci men Type: BLOOD SPECIMENOrdering Facility: [facility] Address: [address] [place] [address] Performed By: #### 1 9123-9, 90524-9 ####[facility] LABCLIA [id number] [place] [id number] [place] Bilirubin [Mass/Vol] 0.4 mg/dL Normal 0.2-1.3 [facility] Comment on above: Order Comment: Speci men Type: BLOOD SPECIMENOrdering Facility: [facility] Address: [address] [place] [id number] Performed By: #### 1 9123-9, ####[facility] LABCLIA [id number] [address] [address] [place] Calcium [Mass/Vol] 8.5 mg/dL Normal 8.5-10.2 [facility] Comment on above: Order Comment: Speci men Type: BLOOD SPECIMENOrdering Facility: [facility] Address: [address] [place], [place] [address] Performed By: #### 1 9123-9, ####[facility] LABCLIA [id number] [place] [address] [place] Chloride [Moles/Vol] 106 mmol/L Normal 98-107 [facility] Comment on above: Order Comment: Speci men Type: BLOOD SPECIMENOrdering Facility: [facility] Address: [address] [place], [place] [address] Performed By: #### 1 23-9, ####[facility] LABCLIA [id number] [place] [address] [place] CO2 [Moles/Vol] 23 mmol/L Normal 22-30 [facility] Comment on above: Order Comment: Speci men Type: BLOOD SPECIMENOrdering Facility: [facility] Address: [address] [place] [id number] Performed By: #### 1 9123-9, ####[facility] LABCLIA [id number] [place] [address] [place] Creatinine [Mass/Vol] 1.01 mg/dL High 0.58-0.96 [facility] Comment on above: Order Comment: Speci men Type: BLOOD SPECIMENOrdering Facility: [facility] Address: [address] [place], [place] [address] Performed By: #### 1 9123-9, 58969-4 ####[facility] LABCLIA [id number] [address] [place] Creatinine and Glomerular filtration rate.predicted panel (S/P/Bld) 68 mL/min/1.73m??? Normal >=60 [facility] Comment on above: Order Comment: Elgin lyons Type: BLOOD SPECIMENOrdering Facility: [facility] Address: [address] [place] [address] Result Comment: Yani mated Glomerular Filtration Rate (eGFR) is calculated using the 2020 CKD-EPI creatinine equation. This equation utilizes serum creatinine, sex, and age as parameters. The creatinine assay has traceable calibration to isotope dilution-mass spectrometry. Refer to KDIGO guidelines for clinical interpretation. In patients with unstable renal function, e.g. those with acute kidney injury, the eGFR may not accurately reflect actual GFR. Performed By: #### 1 9123-9, 90737-2 ####[facility] LABCLIA [id number] [place] [address] [place] Glucose [Mass/Vol] 92 mg/dL Normal 74-99 [facility] Comment on above: Order Comment: Elgin lyons Type: BLOOD SPECIMENOrdering Facility: [facility] Address: [address] [place] [address] Result Comment: The [place] Diabetes Association (ADA) provides guidance for cutoff values for fasting glucose and random glucose. The ADA defines fasting as no caloric intake for at least 8 hours. Fasting plasma glucose results between 100 to 125 mg/dL indicate increased risk for diabetes (prediabetes).Fasting plasma glucose results greater than or equal to 126 mg/dL meet the criteria for diagnosis of diabetes. In the absence of unequivocal hyperglycemia, results should be confirmed by repeat testing. In a patient with classic symptoms of hyperglycemia or hyperglycemic crisis, random plasma glucose results greater than or equal to 200 mg/dL meet the criteria for diagnosis of diabetes.Reference: Standards of Medical Care in Diabetes 2016, [place] Diabetes Association. Diabetes Care. 2016.39(Suppl 1). Performed By: #### 1 9123-9, 04267-4 ####[facility] LABCLIA [id number] [address] [address] [place] Potassium [Moles/Vol] 3.8 mmol/L Normal 3.7-5.1 [facility] Comment on above: Order Comment: Speci men Type: BLOOD SPECIMENOrdering Facility: [facility] Address: [address] [place] [address] Performed By: #### 1 9123-9, 05741-1 ####[facility] LABIA [id number] [place] [address] [place] Protein [Mass/Vol] 5.4 g/dL Low 6.3-8.0 [facility] Comment on above: Order Comment: Speci men Type: BLOOD SPECIMENOrdering Facility: [facility] Address: [address] [place] [address] Performed By: #### 1 9123-9, ####[facility] LABIA [id number] [place] [address] [place] Sodium [Moles/Vol] 139 mmol/L Normal 136-144 [facility] Comment on above: Order Comment: Speci men Type: BLOOD SPECIMENOrdering Facility: [facility] Address: [address] [place] [address] Performed By: #### 1 9123-9, 32728-8 ####[facility] LABIA [id number] [place] [address] [place] Urea nitrogen [Mass/Vol] 10 mg/dL Normal 7-21 [facility] Comment on above: Order Comment: Speci men Type: BLOOD SPECIMENOrdering Facility: [facility] Address: [address] [place] [address] Performed By: #### 1 9123-9, 77520-7 ####[facility] LABIA [id number] [place] [id number] [place] Albumin [Mass/Vol] 2.9 g/dL Low 3.9-4.9 [facility] Comment on above: Order Comment: Speci men Type: BLOOD SPECIMENOrdering Facility: [facility] Address: [address] [place] [address] Performed By: #### 2 4323-8, 05621-0, 2776-1, 4-2 ####[facility] LABCLIA [id number] [place] [address] [place] ALP [Catalytic activity/Vol] 179 U/L High 34-123 [facility] Comment on above: Order Comment: Speci men Type: BLOOD SPECIMENOrdering Facility: [facility] Address: [address] [place] [address] Performed By: #### 2 4323-8, 83672-9, 2776-, 2323-2 ####[facility] LABCLIA [id number] [place] [address] [place] ALT [Catalytic activity/Vol] 20 U/L Normal 7-38 [facility] Comment on above: Order Comment: Speci men Type: BLOOD SPECIMENOrdering Facility: [facility] Address: [address] [place] [address] Performed By: #### 2 4323-8, 82464-1, 2776-1, 2323-2 ####[facility] LABCLIA [id number] [place] [address] [place] Anion gap [Moles/Vol] 10 mmol/L Normal 8-15 [facility] Comment on above: Order Comment: Speci men Type: BLOOD SPECIMENOrdering Facility: [facility] Address: [address] [place] [address] Performed By: #### 2 4323-8, 76048-0, 2776-1, 2323-2 ####[facility] LABCLIA [id number] [place] [address] [place] AST [Catalytic activity/Vol] 22 U/L Normal 13-35 [facility] Comment on above: Order Comment: Speci men Type: BLOOD SPECIMENOrdering Facility: [facility] Address: [address] [place] [address] Performed By: #### 2 4323-8, 59384-4, 2776-1, 2323-2 ####[facility] LABCLIA [id number] [place] [address] [place] Bilirubin [Mass/Vol] 0.3 mg/dL Normal 0.2-1.3 [facility] Comment on above: Order Comment: Speci men Type: BLOOD SPECIMENOrdering Facility: [facility] Address: [address] [place] [address] Performed By: #### 2 4323-8, , 2776-03, 2323-2 ####[facility] LABCLIA [id number] [place] [address] [place] Calcium [Mass/Vol] 8.2 mg/dL Low 8.5-10.2 [facility] Comment on above: Order Comment: Speci men Type: BLOOD SPECIMENOrdering Facility: [facility] Address: [address] [place] [address] Performed By: #### 2 4323-8, 47673-5, 2776-03, 2323-2 ####[facility] LABCLIA [id number] [place] [address] [place] Chloride [Moles/Vol] 108 mmol/L High 98-107 [facility] Comment on above: Order Comment: Speci men Type: BLOOD SPECIMENOrdering Facility: [facility] Address: [address] [place] [address] Performed By: #### 2 4323-8, 90349-5, 2776-, 2323-2 ####[facility] LABCLIA [id number] [place] [address] [place] CO2 [Moles/Vol] 21 mmol/L Low 22-30 [facility] Comment on above: Order Comment: Speci men Type: BLOOD SPECIMENOrdering Facility: [facility] Address: [address] [place] [address] Performed By: #### 2 4323-8, 71384-1, 2777-1, 2323-2 ####[facility] LABCLIA [id number] [place] [address] [place] Creatinine [Mass/Vol] 1.09 mg/dL High 0.58-0.96 [facility] Comment on above: Order Comment: Speci men Type: BLOOD SPECIMENOrdering Facility: [facility] Address: [address] [place] [address] Performed By: #### 2 4323-8, , 2776-03, 2323-04 ####[facility] LABCLIA [id number] [place] [address] [place] Creatinine and Glomerular filtration rate.predicted panel (S/P/Bld) 62 mL/min/1.73m??? Normal >=60 [facility] Comment on above: Order Comment: Speci men Type: BLOOD SPECIMENOrdering Facility: [facility] Address: [address] [place] [address] Result Comment: Yani mated Glomerular Filtration Rate (eGFR) is calculated using the 2020 CKD-EPI creatinine equation. This equation utilizes serum creatinine, sex, and age as parameters. The creatinine assay has traceable calibration to isotope dilution-mass spectrometry. Refer to KDIGO guidelines for clinical interpretation. In patients with unstable renal function, e.g. those with acute kidney injury, the eGFR may not accurately reflect actual GFR. Performed By: #### 2 4323-8, 87140-5, 277-, 2323-2 ####[facility] LABCLIA [id number] [place] [id number] [place] Glucose [Mass/Vol] 99 mg/dL Normal 74-99 [facility] Comment on above: Order Comment: Speci men Type: BLOOD SPECIMENOrdering Facility: [facility] Address: [address] [place] [address] Result Comment: The [place] Diabetes Association (ADA) provides guidance for cutoff values for fasting glucose and random glucose. The ADA defines fasting as no caloric intake for at least 8 hours. Fasting plasma glucose results between 100 to 125 mg/dL indicate increased risk for diabetes (prediabetes).Fasting plasma glucose results greater than or equal to 126 mg/dL meet the criteria for diagnosis of diabetes. In the absence of unequivocal hyperglycemia, results should be confirmed by repeat testing. In a patient with classic symptoms of hyperglycemia or hyperglycemic crisis, random plasma glucose results greater than or equal to 200 mg/dL meet the criteria for diagnosis of diabetes.Reference: Standards of Medical Care in Diabetes 2016, [place] [employer]. Diabetes Care. 2016.39(Suppl 1). Performed By: #### 2 4323-8, 22043-0, 7-1, 4-2 ####[facility] LABCLIA [id number] [place] [phone] [place] Potassium [Moles/Vol] 3.8 mmol/L Normal 3.7-5.1 [facility] Comment on above: Order Comment: Elgin lyons Type: BLOOD SPECIMENOrdering Facility: [facility] Address: [address] [place] [address] Performed By: #### 2 4323-8, , 2776-1, 2323-2 ####[facility] LABIA [id number] [place] [id number] [place] Protein [Mass/Vol] 4.9 g/dL Low 6.3-8.0 [facility] Comment on above: Order Comment: Elgin lyons Type: BLOOD SPECIMENOrdering Facility: [facility] Address: [address] [place], [place] [address] Performed By: #### 2 4323-8, 27642-9, 2776-1, 4-2 ####[facility] LABCLIA [id number] [place] [phone] [place] Sodium [Moles/Vol] 139 mmol/L Normal 136-144 [facility] Comment on above: Order Comment: Speci men Type: BLOOD SPECIMENOrdering Facility: [facility] Address: [address] [place], [place] [address] Performed By: #### 2 4323-8, 18150-2, 2776-1, 2324-2 ####[facility] LABCLIA [id number] [place] [address] [place] Urea nitrogen [Mass/Vol] 11 mg/dL Normal 7-21 [facility] Comment on above: Order Comment: Speci men Type: BLOOD SPECIMENOrdering Facility: [facility] Address: [address] [place] [address] Performed By: #### 2 4323-8, 11935-5, 2776-1, 2323-2 ####[facility] LABCLIA [id number] [place] [address] [place] GGT SerPl-cCncon 01-05-2024 Gamma glutamyl transferase [Catalytic activity/Vol] 98 U/L High 6-46 [facility] Comment on above: Order Comment: Speci men Type: BLOOD SPECIMENOrdering Facility: [facility] Address: [address] [place] [address] Performed By: #### 2 4323-8, 98296-8, 2776-1, 2323-2 ####[facility] LABCLIA [id number] [place] [phone] [place] Magnesium SerPl-mCncon 01-04 Magnesium [Mass/Vol] 1.8 mg/dL Normal 1.7-2.3 [facility] Comment on above: Order Comment: Speci men Type: BLOOD SPECIMENOrdering Facility: [facility] Address: [address] [place] [address] Performed By: #### 1 9123-9, 2777-1, 59428-4 ####[facility] LABCLIA [id number] [place] [address] [place] Magnesium [Mass/Vol] 1.8 mg/dL Normal 1.7-2.3 [facility] Comment on above: Order Comment: Elgin lyons Type: BLOOD SPECIMENOrdering Facility: [facility] Address: [address] [place] [address] Performed By: #### 1 9123-9, 26934-0 ####[facility] LABIA [id number] [address] [place] [facility] Magnesium [Mass/Vol] 1.8 mg/dL Normal 1.7-2.3 [facility] Comment on above: Order Comment: Elgin lyons Type: BLOOD SPECIMENOrdering Facility: [facility] Address: [address] [place] [address] Performed By: #### 2 4323-8, 12779-6, 2777-1, 2324-2 ####[facility] [id number] [place] [address] [place] PT panel Coag (PPP)on 2023 INR Coag (PPP) [Relative time] 1.4 {INR} High 0.9-1.3 [facility] Comment on above: Order Comment: Elgin lyons Type: BLOOD SPECIMENOrdering Facility: [facility] Address: [address] [place] [address] Result Comment: Jesusita min K Antagonist (VKA) Therapeutic Range: INR 2 to 3 (Target INR of 2.5)Note: For patients treated with VKA drugs, such as warfarin, the [place] [employer] 2012 Guideline recommends a therapeutic INR range of 2 to 3 (target INR of 2.5). This recommendation includes high-risk patients with antiphospholipid syndrome with previous arterial or venous thromboembolism, current-generation mechanical or bioprosthetic aortic heart valve replacement.Note: Patients with mechanical aortic valve replacement and additional risk factors for thromboembolic events (atrial fibrillation, previous thromboembolism, LV dysfunction, hypercoagulable conditions) or an older generation mechanical AVR (i.e., ball in-Cage) or any mechanical MVR should have a INR therapeutic range of 2.5 to 3.5 (target INR of 3).Kristie ZAMORA, et al. Chest 2012, 141:7S-47SRafa CHAPA et al. [facility] 2017, 70: 252-289 Performed By: #### P TTA, 94750-7 ####[facility] LABCLIA [id number] [place] [address] [place] PT Coag (PPP) [Time] 14.7 s High 9.7-13.0 [facility] Comment on above: Order Comment: Speci men Type: BLOOD SPECIMENOrdering Facility: [facility] Address: [address] [place] [address] Performed By: #### P TTA, 34886-7 ####[facility] LABIA [id number] [address] [place] INR Coag (PPP) [Relative time] 1.3 {INR} Normal 0.9-1.3 [facility] Comment on above: Order Comment: Speci men Type: BLOOD SPECIMENOrdering Facility: [facility] Address: [address] [place] [address] [place] [address] Result Comment: Jesusita min K Antagonist (VKA) Therapeutic Range: INR 2 to 3 (Target INR of 2.5)Note: For patients treated with VKA drugs, such as warfarin, the [employer] [employer] 2012 Guideline recommends a therapeutic INR range of 2 to 3 (target INR of 2.5). This recommendation includes high-risk patients with antiphospholipid syndrome with previous arterial or venous thromboembolism, current-generation mechanical or bioprosthetic aortic heart valve replacement.Note: Patients with mechanical aortic valve replacement and additional risk factors for thromboembolic events (atrial fibrillation, previous thromboembolism, LV dysfunction, hypercoagulable conditions) or an older generation mechanical AVR (i.e., ball in-Cage) or any mechanical MVR should have a INR therapeutic range of 2.5 to 3.5 (target INR of 3).Kristie ZAMORA, et al. Chest 2012, 141:7S-47SRafa CHAPA et al. [facility] 2017, 70: 252-289 Performed By: #### 3 4528-0, PTTAC ####[facility] LABCLIA [id number] [place] [address] [place] PT Coag (PPP) [Time] 13.9 s High 9.7-13.0 [facility] Comment on above: Order Comment: Speci men Type: BLOOD SPECIMENOrdering Facility: [facility] Address: [address] [place] [address] Performed By: #### 3 4528-0, PTTAC ####[facility] LABCLIA [id number] [place] [address] [place] PTT, ANTICOAGULANT THERAPYon 01-05-2024 aPTT Coag (PPP) [Time] 65.2 s High 23.0-32.4 [facility] Comment on above: Order Comment: Speci men Type: BLOOD SPECIMENOrdering Facility: [facility] Address: [address] [place] [address] Performed By: #### P TTAC, 83945-0 ####[facility] LABCLIA [id number] [place] [address] [place] aPTT Coag (PPP) [Time] 64.2 s High 23.0-32.4 [facility] Comment on above: Order Comment: Speci men Type: BLOOD SPECIMENOrdering Facility: [facility] Address: [address] [place] [address] Performed By: #### 3 4528-0, PTTAC ####[facility] LABCLIA [id number] [place] [address] [place] aPTT Coag (PPP) [Time] 72.3 s High 23.0-32.4 [facility] Comment on above: Order Comment: Speci men Type: BLOOD SPECIMENOrdering Facility: [facility] Address: [address] [place] [address] Performed By: #### P TTAC ####[facility] LABCLIA [id number] [address] [address] [place] Phosphate SerPl-mCncon 01-04 Phosphate [Mass/Vol] 3.5 mg/dL Normal 2.7-4.8 [facility] Comment on above: Order Comment: Speci men Type: BLOOD SPECIMENOrdering Facility: [facility] Address: [address] [place] [address] Performed By: #### 1 9123-9, 2777-1, 60668-1 ####[facility] LABCLIA [id number] [place] [address] [place] Phosphate [Mass/Vol] 3.2 mg/dL Normal 2.7-4.8 [facility] Comment on above: Order Comment: Speci men Type: BLOOD SPECIMENOrdering Facility: [facility] Address: [address] [place] [address] Performed By: #### 2 4323-8, 09250-7, 2777-1, 2324-2 ####[facility] LABCLIA [id number] [place] [address] [place] TYPE + SCREENon 01-05-2024 ABO A Normal [facility] Comment on above: Order Comment: Speci men Type: BLOOD SPECIMENOrdering Facility: [facility] Address: [address] [place] [address] Performed By: #### T SCR ####[facility] BLOOD BANKCLIA [id number] [place] [phone] [place] Rh Nom (Bld) Negative Normal [facility] Comment on above: Order Comment: Speci men Type: BLOOD SPECIMENOrdering Facility: [facility] Address: [address] [place] [address] Performed By: #### T SCR ####[facility] BLOOD BANKCLIA [id number] [place] [phone] [place] TYPE AND SCREEN EXPIRATION 01/08/2024 23:59 Normal [facility] Comment on above: Order Comment: Speci men Type: BLOOD SPECIMENOrdering Facility: [facility] Address: [address] [place] [address] Performed By: #### T SCR ####[facility] BANKIA [id number] [place] [address] [place] US ABD RIGHT UPPER QUADRANTo n 01-05-2024 US ABD RIGHT UPPER QUADRANT Normal [facility] CASE MGT INIT ASSESon 2023 CASE MGT INIT ASSES Normal [facility] CONSULT PROGon 01-04-2024 CONSULT PROG Normal [facility] PTT, ANTICOAGULANT THERAPYon 01-04-2024 aPTT Coag (PPP) [Time] 61.7 s High 23.0-32.4 [facility] Comment on above: Order Comment: Speci men Type: BLOOD SPECIMENOrdering Facility: [facility] Address: [address] [place] [address] Performed By: #### P TTAC ####[facility] LABCLIA [id number] [place] [address] [place] aPTT Coag (PPP) [Time] 83.7 s High 23.0-32.4 [facility] Comment on above: Order Comment: Speci men Type: BLOOD SPECIMENOrdering Facility: [facility] Address: [address] [place] [address] Performed By: #### P TTAC ####[facility] LABCLIA [id number] [place] [phone] [place] aPTT PPPon 01-04-2024 aPTT Coag (PPP) [Time] 78.0 s High 23.0-32.4 [facility] Comment on above: Order Comment: Speci men Type: BLOOD SPECIMENOrdering Facility: [facility] Address: [address] [place] [address] Performed By: #### 1 4979-9 ####[facility] LABCLIA [id number] [place] [address] [place] CBC panel Auto (Bld)on 01-02 Erythrocyte distribution width (RBC) [Ratio] 16.0 % High 11.5-15.0 [facility] Comment on above: Order Comment: Speci men Type: BLOOD SPECIMENOrdering Facility: [facility] Address: [address] [place] [address] Performed By: #### 5 8410-2 ####[facility] LABIA [id number] [place] [address] [place] Hematocrit (Bld) [Volume fraction] 29.2 % Low 36.0-46.0 [facility] Comment on above: Order Comment: Speci men Type: BLOOD SPECIMENOrdering Facility: [facility] Address: [address] [place] [address] Performed By: #### 5 8410-2 ####[facility] [id number] [place] [address] [place] Hemoglobin (Bld) [Mass/Vol] 9.4 g/dL Low 11.5-15.5 [facility] Comment on above: Order Comment: Speci men Type: BLOOD SPECIMENOrdering Facility: [facility] Address: [address] [place] [address] Performed By: #### 5 8410-2 ####[facility] LABIA [id number] [place] [address] [place] MCH (RBC) [Entitic mass] 27.6 pg Normal 26.0-34.0 [facility] Comment on above: Order Comment: Speci men Type: BLOOD SPECIMENOrdering Facility: [facility] Address: [address] [place] [address] Performed By: #### 5 8410-2 ####[facility] [id number] [place] [address] [place] MCHC (RBC) [Mass/Vol] 32.2 g/dL Normal 30.5-36.0 [facility] Comment on above: Order Comment: Speci men Type: BLOOD SPECIMENOrdering Facility: [facility] Address: [address] [place] [address] Performed By: #### 5 8410-2 ####[facility] LABCLIA [id number] [place] [address] [place] MCV (RBC) [Entitic vol] 85.9 fL Normal 80.0-100.0 [facility] Comment on above: Order Comment: Speci men Type: BLOOD SPECIMENOrdering Facility: [facility] Address: [address] [place] [address] Performed By: #### 5 8410-2 ####[facility] LABCLIA [id number] [place] [address] [place] Nucleated RBC (Bld) [#/Vol] 10*3/uL Normal <0.01 [facility] Comment on above: Order Comment: Speci men Type: BLOOD SPECIMENOrdering Facility: [facility] Address: [address] [place] [address] Performed By: #### 5 8410-2 ####[facility] LABCLIA [id number] [place] [address] [place] Platelet mean volume (Bld) [Entitic vol] 10.7 fL Normal 9.0-12.7 [facility] Comment on above: Order Comment: Speci men Type: BLOOD SPECIMENOrdering Facility: [facility] Address: [address] [place] [address] Performed By: #### 5 8410-2 ####[facility] LABCLIA [id number] [place] [address] [place] Platelets (Bld) [#/Vol] 112 10*3/uL Low 150-400 [facility] Comment on above: Order Comment: Speci men Type: BLOOD SPECIMENOrdering Facility: [facility] Address: [address] [place] [address] Performed By: #### 5 8410-2 ####[facility] LABCLIA [id number] [place] [address] [place] RBC (Bld) [#/Vol] 3.40 10*6/uL Low 3.90-5.20 [facility] Comment on above: Order Comment: Speci men Type: BLOOD SPECIMENOrdering Facility: [facility] Address: [address] [place] [address] Performed By: #### 5 8410-2 ####[facility] LABIA [id number] [place] [address] [place] WBC (Bld) [#/Vol] 4.94 10*3/uL Normal 3.70-11.00 [facility] Comment on above: Order Comment: Speci men Type: BLOOD SPECIMENOrdering Facility: [facility] Address: [address] [place] [address] Performed By: #### 5 8410-2 ####[facility] LABIA [id number] [place] [address] [place] Erythrocyte distribution width (RBC) [Ratio] 15.7 % High 11.5-15.0 [facility] Comment on above: Order Comment: Speci men Type: BLOOD SPECIMENOrdering Facility: [facility] Address: [address] [place] [address] Performed By: #### 5 8410-2 ####[facility] LABIA [id number] [place] [address] [place] Hematocrit (Bld) [Volume fraction] 29.6 % Low 36.0-46.0 [facility] Comment on above: Order Comment: Speci men Type: BLOOD SPECIMENOrdering Facility: [facility] Address: [address] [place] [address] Performed By: #### 5 8410-2 ####[facility] LABIA [id number] [place] [address] [place] Hemoglobin (Bld) [Mass/Vol] 9.1 g/dL Low 11.5-15.5 [facility] Comment on above: Order Comment: Speci men Type: BLOOD SPECIMENOrdering Facility: [facility] Address: [address] [place] [address] Performed By: #### 5 8410-2 ####[facility] LABIA [id number] [place] [address] [place] MCH (RBC) [Entitic mass] 26.6 pg Normal 26.0-34.0 [facility] Comment on above: Order Comment: Speci men Type: BLOOD SPECIMENOrdering Facility: [facility] Address: [address] [place] [address] Performed By: #### 5 8410-2 ####[facility] [id number] [place] [address] [place] MCHC (RBC) [Mass/Vol] 30.7 g/dL Normal 30.5-36.0 [facility] Comment on above: Order Comment: Speci men Type: BLOOD SPECIMENOrdering Facility: [facility] Address: [address] [place] [address] Performed By: #### 5 8410-2 ####[facility] LABIA [id number] [place] [address] [place] MCV (RBC) [Entitic vol] 86.5 fL Normal 80.0-100.0 [facility] Comment on above: Order Comment: Speci men Type: BLOOD SPECIMENOrdering Facility: [facility] Address: [address] [place] [address] Performed By: #### 5 8410-2 ####[facility] [id number] [place] [address] [place] Nucleated RBC (Bld) [#/Vol] 10*3/uL Normal <0.01 [facility] Comment on above: Order Comment: Speci men Type: BLOOD SPECIMENOrdering Facility: [facility] Address: [address] [place] [address] Performed By: #### 5 8410-2 ####[facility] LABCLIA [id number] [place] [address] [place] Platelet mean volume (Bld) [Entitic vol] 10.5 fL Normal 9.0-12.7 [facility] Comment on above: Order Comment: Speci men Type: BLOOD SPECIMENOrdering Facility: [facility] Address: [address] [place] [address] Performed By: #### 5 8410-2 ####[facility] LABCLIA [id number] [place] [address] [place] Platelets (Bld) [#/Vol] 119 10*3/uL Low 150-400 [facility] Comment on above: Order Comment: Speci men Type: BLOOD SPECIMENOrdering Facility: [facility] Address: [address] [place] [address] Performed By: #### 5 8410-2 ####[facility] LABIA [id number] [place] [address] [place] RBC (Bld) [#/Vol] 3.42 10*6/uL Low 3.90-5.20 [facility] Comment on above: Order Comment: Speci men Type: BLOOD SPECIMENOrdering Facility: [facility] Address: [address] [place] [address] Performed By: #### 5 8410-2 ####[facility] LABCLIA [id number] [place] [address] [place] WBC (Bld) [#/Vol] 5.09 10*3/uL Normal 3.70-11.00 [facility] Comment on above: Order Comment: Speci men Type: BLOOD SPECIMENOrdering Facility: [facility] Address: [address] [place] [address] Performed By: #### 5 8410-2 ####[facility] LABCLIA [id number] [place] [address] [place] Erythrocyte distribution width (RBC) [Ratio] 15.9 % High 11.5-15.0 [facility] Comment on above: Order Comment: Speci men Type: BLOOD SPECIMENOrdering Facility: [facility] Address: [address] [place] [address] Performed By: #### 5 8410-2 ####[facility] LABCLIA [id number] [place] [address] [place] Hematocrit (Bld) [Volume fraction] 29.7 % Low 36.0-46.0 [facility] Comment on above: Order Comment: Speci men Type: BLOOD SPECIMENOrdering Facility: [facility] Address: [address] [place] [address] Performed By: #### 5 8410-2 ####[facility] LABCLIA [id number] [place] [address] [place] Hemoglobin (Bld) [Mass/Vol] 9.6 g/dL Low 11.5-15.5 [facility] Comment on above: Order Comment: Speci men Type: BLOOD SPECIMENOrdering Facility: [facility] Address: [address] [place] [address] Performed By: #### 5 8410-2 ####[facility] LABCLIA [id number] [place] [address] [place] MCH (RBC) [Entitic mass] 27.6 pg Normal 26.0-34.0 [facility] Comment on above: Order Comment: Speci men Type: BLOOD SPECIMENOrdering Facility: [facility] Address: [address] [place] [address] Performed By: #### 5 8410-2 ####[facility] LABCLIA [id number] [place] [address] [place] MCHC (RBC) [Mass/Vol] 32.3 g/dL Normal 30.5-36.0 [facility] Comment on above: Order Comment: Speci men Type: BLOOD SPECIMENOrdering Facility: [facility] Address: [address] [place] [address] Performed By: #### 5 8410-2 ####[facility] LABIA [id number] [place] [address] [place] MCV (RBC) [Entitic vol] 85.3 fL Normal 80.0-100.0 [facility] Comment on above: Order Comment: Speci men Type: BLOOD SPECIMENOrdering Facility: [facility] Address: [address] [place] [address] Performed By: #### 5 8410-2 ####[facility] LABIA [id number] [place] [address] [place] Nucleated RBC (Bld) [#/Vol] 10*3/uL Normal <0.01 [facility] Comment on above: Order Comment: Speci men Type: BLOOD SPECIMENOrdering Facility: [facility] Address: [address] [place] [address] Performed By: #### 5 8410-2 ####[facility] LABIA [id number] [place] [address] [place] Platelet mean volume (Bld) [Entitic vol] 10.3 fL Normal 9.0-12.7 [facility] Comment on above: Order Comment: Speci men Type: BLOOD SPECIMENOrdering Facility: [facility] Address: [address] [place] [address] Performed By: #### 5 8410-2 ####[facility] LABIA [id number] [place] [address] [place] Platelets (Bld) [#/Vol] 111 10*3/uL Low 150-400 [facility] Comment on above: Order Comment: Speci men Type: BLOOD SPECIMENOrdering Facility: [facility] Address: [address] [place] [address] Performed By: #### 5 8410-2 ####[facility] LABCLIA [id number] [place] [address] [place] RBC (Bld) [#/Vol] 3.48 10*6/uL Low 3.90-5.20 [facility] Comment on above: Order Comment: Speci men Type: BLOOD SPECIMENOrdering Facility: [facility] Address: [address] [place] [address] Performed By: #### 5 8410-2 ####[facility] LABCLIA [id number] [place] [address] [place] WBC (Bld) [#/Vol] 6.53 10*3/uL Normal 3.70-11.00 [facility] [facility] Comment on above: Order Comment: Speci men Type: BLOOD SPECIMENOrdering Facility: [facility] Address: [address] [place] [address] Performed By: #### 5 8410-2 ####[facility] LABCLIA [id number] [place] [address] [place] CONSULTon 01-03-2024 CONSULT Normal [facility] CONSULT Normal [facility] CONSULT PROGon 01-03-2024 CONSULT PROG Normal [facility] CONSULT PROG Normal [facility] CONSULT PROG Normal [facility] CONSULT PROG Normal [facility] Comprehensive metabolic 2000 panelon 01-03-2024 Albumin [Mass/Vol] 2.8 g/dL Low 3.9-4.9 [facility] Comment on above: Order Comment: Speci men Type: BLOOD SPECIMENOrdering Facility: [facility] Address: [address] [place] [address] Performed By: #### 1 9123-9, 2777-1, 79158-6 ####[facility] LABCLIA [id number] [place] [id number] [place] ALP [Catalytic activity/Vol] 108 U/L Normal 34-123 [facility] Comment on above: Order Comment: Speci men Type: BLOOD SPECIMENOrdering Facility: [facility] Address: [address] [place] [address] Performed By: #### 1 9123-9, 27709-19, 69800-6 ####[facility] LABCLIA [id number] [place] [address] [place] ALT [Catalytic activity/Vol] 13 U/L Normal 7-38 [facility] Comment on above: Order Comment: Speci men Type: BLOOD SPECIMENOrdering Facility: [facility] Address: [address] [place] [address] Performed By: #### 1 9123-9, 27709-19, ####[facility] LABCLIA [id number] [place] [address] [place] Anion gap [Moles/Vol] 11 mmol/L Normal 8-15 [facility] Comment on above: Order Comment: Speci men Type: BLOOD SPECIMENOrdering Facility: [facility] Address: [address] [place] [address] Performed By: #### 1 9123-9, 27709-19, 60384-7 ####[facility] LABCLIA [id number] [place] [address] [place] AST [Catalytic activity/Vol] 18 U/L Normal 13-35 [facility] Comment on above: Order Comment: Speci men Type: BLOOD SPECIMENOrdering Facility: [facility] Address: [address] [place] [address] Performed By: #### 1 9123-9, 2777, 93013-9 ####[facility] LABCLIA [id number] [place] [phone] [place] Bilirubin [Mass/Vol] 0.5 mg/dL Normal 0.2-1.3 [facility] Comment on above: Order Comment: Speci men Type: BLOOD SPECIMENOrdering Facility: [facility] Address: [address] [place] [address] Performed By: #### 1 9123-9, 2771, 70919-0 ####[facility] LABCLIA [id number] [place] [address] [place] Calcium [Mass/Vol] 8.2 mg/dL Low 8.5-10.2 [facility] Comment on above: Order Comment: Speci men Type: BLOOD SPECIMENOrdering Facility: [facility] Address: [address] [place] [address] Performed By: #### 1 9123-9, 27709-19, 75089-3 ####[facility] LABCLIA [id number] [place] [address] [place] Chloride [Moles/Vol] 106 mmol/L Normal 98-107 [facility] Comment on above: Order Comment: Speci men Type: BLOOD SPECIMENOrdering Facility: [facility] Address: [address] [place] [address] Performed By: #### 1 9123-9, 27709-19, 20518-7 ####[facility] LABCLIA [id number] [place] [address] [place] CO2 [Moles/Vol] 19 mmol/L Low 22-30 [facility] Comment on above: Order Comment: Speci men Type: BLOOD SPECIMENOrdering Facility: [facility] Address: [address] [place] [address] Performed By: #### 1 9123-9, 27709-19, 98396-8 ####[facility] LABCLIA [id number] [place] [address] [place] Creatinine [Mass/Vol] 1.16 mg/dL High 0.58-0.96 [facility] Comment on above: Order Comment: Elgin lyons Type: BLOOD SPECIMENOrdering Facility: [facility] Address: [address] [place] [address] Performed By: #### 1 9123-9, 2777-1, 10610-9 ####[facility] LABCLIA [id number] [place] [address] [place] Creatinine and Glomerular filtration rate.predicted panel (S/P/Bld) 58 mL/min/1.73m??? Low >=60 [facility] Comment on above: Order Comment: Elgin lyons Type: BLOOD SPECIMENOrdering Facility: [facility] Address: [address] [place] [address] Result Comment: Yani mated Glomerular Filtration Rate (eGFR) is calculated using the 2020 CKD-EPI creatinine equation. This equation utilizes serum creatinine, sex, and age as parameters. The creatinine assay has traceable calibration to isotope dilution-mass spectrometry. Refer to KDIGO guidelines for clinical interpretation. In patients with unstable renal function, e.g. those with acute kidney injury, the eGFR may not accurately reflect actual GFR. Performed By: #### 1 9123-9, 2777-, 80736-6 ####[facility] LABCLIA [id number] [place] [address] [place] Glucose [Mass/Vol] 97 mg/dL Normal 74-99 [facility] Comment on above: Order Comment: Elgin lyons Type: BLOOD SPECIMENOrdering Facility: [facility] Address: [address] [place] [address] Result Comment: The [place] Diabetes Association (ADA) provides guidance for cutoff values for fasting glucose and random glucose. The ADA defines fasting as no caloric intake for at least 8 hours. Fasting plasma glucose results between 100 to 125 mg/dL indicate increased risk for diabetes (prediabetes).Fasting plasma glucose results greater than or equal to 126 mg/dL meet the criteria for diagnosis of diabetes. In the absence of unequivocal hyperglycemia, results should be confirmed by repeat testing. In a patient with classic symptoms of hyperglycemia or hyperglycemic crisis, random plasma glucose results greater than or equal to 200 mg/dL meet the criteria for diagnosis of diabetes.Reference: Standards of Medical Care in Diabetes 2016, [place] Diabetes Association. Diabetes Care. 2016.39(Suppl 1). Performed By: #### 1 9123-9, 2776-03, ####[facility] LABCLIA [id number] [address] [address] [place] Potassium [Moles/Vol] 4.1 mmol/L Normal 3.7-5.1 [facility] Comment on above: Order Comment: Speci men Type: BLOOD SPECIMENOrdering Facility: [facility] Address: [address] [place] [address] Performed By: #### 1 9123-9, 2776-03, ####[facility] LABCLIA [id number] [place] [address] [place] Protein [Mass/Vol] 5.1 g/dL Low 6.3-8.0 [facility] Comment on above: Order Comment: Speci men Type: BLOOD SPECIMENOrdering Facility: [facility] Address: [address] [place] [address] Performed By: #### 1 9123-9, 2776-03, ####[facility] LABCLIA [id number] [place] [phone] [place] Sodium [Moles/Vol] 136 mmol/L Normal 136-144 [facility] Comment on above: Order Comment: Speci men Type: BLOOD SPECIMENOrdering Facility: [facility] Address: [address] [place] [address] Performed By: #### 1 9123-9, 2776-03, ####[facility] LABCLIA [id number] [address] [address] [place] Urea nitrogen [Mass/Vol] 15 mg/dL Normal 7-21 [facility] Comment on above: Order Comment: Speci men Type: BLOOD SPECIMENOrdering Facility: [facility] Address: [address] [place], [place] [address] Performed By: #### 1 9123-9, 2777-1, 47966-9 ####[facility] LABCLIA [id number] [address] [address] [place] Albumin [Mass/Vol] 2.8 g/dL Low 3.9-4.9 [facility] Comment on above: Order Comment: Speci men Type: BLOOD SPECIMENOrdering Facility: [facility] Address: [address] [place] [address] Performed By: #### 2 4323-8, 84056-1, 2776- ####[facility] LABCLIA [id number] [place] [address] [place] ALP [Catalytic activity/Vol] 85 U/L Normal 34-123 [facility] Comment on above: Order Comment: Speci men Type: BLOOD SPECIMENOrdering Facility: [facility] Address: [address] [place] [address] Performed By: #### 2 4323-8, 27162-8, 2776-03 ####[facility] LABCLIA [id number] [place] [address] [place] ALT [Catalytic activity/Vol] 12 U/L Normal 7-38 [facility] Comment on above: Order Comment: Speci men Type: BLOOD SPECIMENOrdering Facility: [facility] Address: [address] [place] [address] Performed By: #### 2 4323-8, 26100-2, 2776-03 ####[facility] LABIA [id number] [place] [phone] [place] Anion gap [Moles/Vol] 10 mmol/L Normal 8-15 [facility] Comment on above: Order Comment: Speci men Type: BLOOD SPECIMENOrdering Facility: [facility] Address: [address] [place] [address] Performed By: #### 2 4323-8, , 2776-03 ####[facility] LABCLIA [id number] [place] [phone] [place] AST [Catalytic activity/Vol] 12 U/L Low 13-35 [facility] Comment on above: Order Comment: Speci men Type: BLOOD SPECIMENOrdering Facility: [facility] Address: [address] [place] [address] Performed By: #### 2 4323-8, , 2776-03 ####[facility] LABIA [id number] [place] [address] [place] Bilirubin [Mass/Vol] 0.6 mg/dL Normal 0.2-1.3 [facility] Comment on above: Order Comment: Speci men Type: BLOOD SPECIMENOrdering Facility: [facility] Address: [address] [place] [address] Performed By: #### 2 4323-8, , 2776-03 ####[facility] LABIA [id number] [place] [address] [place] Calcium [Mass/Vol] 7.7 mg/dL Low 8.5-10.2 [facility] Comment on above: Order Comment: Speci men Type: BLOOD SPECIMENOrdering Facility: [facility] Address: [address] [place], [place] [address] Performed By: #### 2 4323-8, , 2776-03 ####[facility] LABIA [id number] [place] [phone] [place] Chloride [Moles/Vol] 104 mmol/L Normal 98-107 [facility] Comment on above: Order Comment: Speci men Type: BLOOD SPECIMENOrdering Facility: [facility] Address: [address] [place] [address] Performed By: #### 2 4323, , 2776-03 ####[facility] LABCLIA [id number] [place] [phone] [place] CO2 [Moles/Vol] 20 mmol/L Low 22-30 [facility] Comment on above: Order Comment: Speci men Type: BLOOD SPECIMENOrdering Facility: [facility] Address: [address] [place] [address] Performed By: #### 2 4323-8, , 2776-03 ####[facility] LABIA [id number] [place] [phone] [place] Creatinine [Mass/Vol] 1.22 mg/dL High 0.58-0.96 [facility] Comment on above: Order Comment: Speci men Type: BLOOD SPECIMENOrdering Facility: [facility] Address: [address] [place] [address] Performed By: #### 2 4328, , 2776-03 ####[facility] LABIA [id number] [place] [address] [place] Creatinine and Glomerular filtration rate.predicted panel (S/P/Bld) 55 mL/min/1.73m??? Low >=60 [facility] Comment on above: Order Comment: Speci men Type: BLOOD SPECIMENOrdering Facility: [facility] Address: [address] [place] [address] Result Comment: Yani mated Glomerular Filtration Rate (eGFR) is calculated using the 2020 CKD-EPI creatinine equation. This equation utilizes serum creatinine, sex, and age as parameters. The creatinine assay has traceable calibration to isotope dilution-mass spectrometry. Refer to KDIGO guidelines for clinical interpretation. In patients with unstable renal function, e.g. those with acute kidney injury, the eGFR may not accurately reflect actual GFR. Performed By: #### 2 4323-8, , 2776-03 ####[facility] LABIA [id number] [address] [address] [place] Glucose [Mass/Vol] 109 mg/dL High 74-99 [facility] Comment on above: Order Comment: Speci men Type: BLOOD SPECIMENOrdering Facility: [facility] Address: [address] [place] [address] Result Comment: The [place] Diabetes Association (ADA) provides guidance for cutoff values for fasting glucose and random glucose. The ADA defines fasting as no caloric intake for at least 8 hours. Fasting plasma glucose results between 100 to 125 mg/dL indicate increased risk for diabetes (prediabetes).Fasting plasma glucose results greater than or equal to 126 mg/dL meet the criteria for diagnosis of diabetes. In the absence of unequivocal hyperglycemia, results should be confirmed by repeat testing. In a patient with classic symptoms of hyperglycemia or hyperglycemic crisis, random plasma glucose results greater than or equal to 200 mg/dL meet the criteria for diagnosis of diabetes.Reference: Standards of Medical Care in Diabetes 2016, [place] Diabetes Association. Diabetes Care. 2016.39(Suppl 1). Performed By: #### 2 4323-8, , 2776-03 ####[facility] LABCLIA [id number] [place] [address] [place] Potassium [Moles/Vol] 4.2 mmol/L Normal 3.7-5.1 [facility] Comment on above: Order Comment: Speci men Type: BLOOD SPECIMENOrdering Facility: [facility] Address: [address] [place], [place] [address] Performed By: #### 2 4323-8, , 2776-03 ####[facility] LABCLIA [id number] [place] [phone] [place] Protein [Mass/Vol] 4.9 g/dL Low 6.3-8.0 [facility] Comment on above: Order Comment: Speci men Type: BLOOD SPECIMENOrdering Facility: [facility] Address: [address] [place] [address] Performed By: #### 2 4323-8, , 2776- ####[facility] LABCLIA [id number] [place] [address] [place] Urea nitrogen [Mass/Vol] 15 mg/dL Normal 7-21 [facility] Comment on above: Order Comment: Speci men Type: BLOOD SPECIMENOrdering Facility: [facility] Address: [address] [place] [address] Performed By: #### 2 4323-8, 89730-9, 2777-1 ####[facility] LABCLIA [id number] [place] [address] [place] Gas + CO Pnl BldVon 01-03-20 24 Sodium [Moles/Vol] 134 mmol/L Low 136-144 [facility] Comment on above: Order Comment: Speci men Type: VENOUS BLOOD SPECIMENOrdering Facility: [facility] Address: [address] [place] [address] Performed By: #### 2 4344-4 ####[facility] LABCLIA [id number] [place] [address] [place] Order Comment: Speci men Type: BLOOD SPECIMENOrdering Facility: [facility] Address: [address] [place] [address] Performed By: #### 2 4323-8, 32575-9, 2777-1 ####[facility] LABCLIA [id number] [place] [address] [place] Gas and Carbon monoxide pane l (BldV)on 01-03-2024 BASE DEFICIT, VENOUS -1 mmol/L Normal -2-0 [facility] Comment on above: Order Comment: Speci men Type: VENOUS BLOOD SPECIMENOrdering Facility: [facility] Address: [address] [place] [address] Performed By: #### 2 4344-4 ####[facility] LABCLIA [id number] [place] [phone] [place] Body temperature 100.94 [degF] Normal [facility] Comment on above: Order Comment: Speci men Type: VENOUS BLOOD SPECIMENOrdering Facility: [facility] Address: [address] [place] [address] Performed By: #### 2 4344-4 ####[facility] LABCLIA [id number] [place] [address] [place] Calcium.ionized (Bld) [Mass/Vol] 1.11 mmol/L Normal 1.08-1.30 [facility] Comment on above: Order Comment: Speci men Type: VENOUS BLOOD SPECIMENOrdering Facility: [facility] Address: [address] [place] [address] Performed By: #### 2 4344-4 ####[facility] LABIA [id number] [place] [address] [place] Calcium.ionized adjusted to pH 7.4 (BldA) [Moles/Vol] 1.13 mmol/L Normal 1.08-1.30 [facility] Comment on above: Order Comment: Speci men Type: VENOUS BLOOD SPECIMENOrdering Facility: [facility] Address: [address] [place] [address] Performed By: #### 2 4344-4 ####[facility] LABIA [id number] [place] [address] [place] Carboxyhemoglobin (BldV) [Mass fraction] 1.5 % Normal 0.0-2.0 [facility] Comment on above: Order Comment: Speci men Type: VENOUS BLOOD SPECIMENOrdering Facility: [facility] Address: [address] [place] [address] Result Comment: Carb oxyhemoglobin Reference Range for Smokers: 2.0-8.0% Performed By: #### 2 4344-4 ####[facility] LABIA [id number] [place] [address] [place] CO2 (BldV) [Partial pressure] 33 mm[Hg] Low 42-55 [facility] Comment on above: Order Comment: Speci men Type: VENOUS BLOOD SPECIMENOrdering Facility: [facility] Address: [address] [place] [id number] Performed By: #### 2 4344-4 ####[facility] LABCLIA [id number] [place] [address] [place] CO2 adjusted to patient's actual temperature (BldV) [Partial pressure] 36 mmHg Low 42-55 [facility] Comment on above: Order Comment: Speci men Type: VENOUS BLOOD SPECIMENOrdering Facility: [facility] Address: [address] [place] [address] Performed By: #### 2 4344-4 ####[facility] LABCLIA [id number] [place] [address] [place] Glucose [Mass/Vol] 113 mg/dL High 60-105 [facility] Comment on above: Order Comment: Speci men Type: VENOUS BLOOD SPECIMENOrdering Facility: [facility] Address: [address] [place] [address] Performed By: #### 2 4344-4 ####[facility] LABCLIA [id number] [place] [address] [place] HCO3 (Bld) [Moles/Vol] 22 mmol/L Low 24-28 [facility] Comment on above: Order Comment: Speci men Type: VENOUS BLOOD SPECIMENOrdering Facility: [facility] Address: [address] [place] [address] Performed By: #### 2 4344-4 ####[facility] LABCLIA [id number] [place] [address] [place] Hematocrit (Bld) [Volume fraction] 30.8 % Low 36.0-46.0 [facility] Comment on above: Order Comment: Speci men Type: VENOUS BLOOD SPECIMENOrdering Facility: [facility] Address: [address] [place] [address] Performed By: #### 2 4344-4 ####[facility] LABCLIA [id number] [place] [address] [place] Hemoglobin (Bld) [Mass/Vol] 10.0 g/dL Low 11.5-15.5 [facility] Comment on above: Order Comment: Speci men Type: VENOUS BLOOD SPECIMENOrdering Facility: [facility] Address: [address] [place] [address] Performed By: #### 2 4344-4 ####[facility] LABIA [id number] [place] [address] [place] Lactate [Moles/Vol] 0.8 mmol/L Normal 0.5-2.2 [facility] Comment on above: Order Comment: Speci men Type: VENOUS BLOOD SPECIMENOrdering Facility: [facility] Address: [address] [place] [address] Performed By: #### 2 4344-4 ####[facility] [id number] [place] [address] [place] Methemoglobin (Bld) [Mass fraction] 1.5 % Normal 0.0-1.5 [facility] Comment on above: Order Comment: Speci men Type: VENOUS BLOOD SPECIMENOrdering Facility: [facility] Address: [address] [place] [address] Performed By: #### 2 4344-4 ####[facility] [id number] [place] [address] [place] O2 THERAPY RA=Room Air Normal [facility] Comment on above: Order Comment: Speci men Type: VENOUS BLOOD SPECIMENOrdering Facility: [facility] Address: [address] [place] [address] Performed By: #### 2 4344-4 ####[facility] [id number] [place] [address] [place] Oxygen (BldV) [Partial pressure] 63 mm[Hg] High 35-45 [facility] Comment on above: Order Comment: Speci men Type: VENOUS BLOOD SPECIMENOrdering Facility: [facility] Address: [address] [place] [address] Performed By: #### 2 4344-4 ####[facility] LABCLIA [id number] [address] [address] [place] Oxygen adjusted to patient's actual temperature (BldV) [Partial pressure] 69 mmHg High 35-45 [facility] Comment on above: Order Comment: Speci men Type: VENOUS BLOOD SPECIMENOrdering Facility: [facility] Address: [address] [place] [address] Performed By: #### 2 4344-4 ####[facility] LABCLIA [id number] [address] [address] [place] Oxygen saturation in Venous blood 92 % High 60-85 [facility] Comment on above: Order Comment: Speci men Type: VENOUS BLOOD SPECIMENOrdering Facility: [facility] Address: [address] [place], [place] [address] Performed By: #### 2 4344-4 ####[facility] LABCLIA [id number] [address] [address] [place] Oxyhemoglobin (BldV) [Mass fraction] 90 % High 60-85 [facility] Comment on above: Order Comment: Speci men Type: VENOUS BLOOD SPECIMENOrdering Facility: [facility] Address: [address] [place] [address] Performed By: #### 2 4344-4 ####[facility] LABCLIA [id number] [address] [address] [place] pH (BldV) 7.43 [pH] High 7.32-7.42 [facility] Comment on above: Order Comment: Speci men Type: VENOUS BLOOD SPECIMENOrdering Facility: [facility] Address: [address] [place] [address] Performed By: #### 2 4344-4 ####[facility] LABCLIA [id number] [address] [address] [place] pH adjusted to patient's actual temperature (BldV) 7.41 Normal 7.32-7.42 [facility] Comment on above: Order Comment: Speci men Type: VENOUS BLOOD SPECIMENOrdering Facility: [facility] Address: [address] [place] [address] Performed By: #### 2 4344-4 ####[facility] [id number] [place] [address] [place] Potassium [Moles/Vol] 4.1 mmol/L Normal 3.5-5.0 [facility] Comment on above: Order Comment: Speci men Type: VENOUS BLOOD SPECIMENOrdering Facility: [facility] Address: [address] [place] [address] Performed By: #### 2 4344-4 ####[facility] [id number] [place] [id number] [place] HISTORY PHYSICALon HISTORY PHYSICAL Normal [facility] MEDICAL EMERon 01-03-2024 MEDICAL BRIDGER Normal [facility] Magnesium SerPl-mCncon 01-02 Magnesium [Mass/Vol] 1.7 mg/dL Normal 1.7-2.3 [facility] [facility] Comment on above: Order Comment: Speci men Type: BLOOD SPECIMENOrdering Facility: [facility] Address: [address] [place] [address] Performed By: #### 1 9123-9, 2777-1, 36175-0 ####[facility] LABIA [id number] [place] [address] [place] Magnesium [Mass/Vol] 1.4 mg/dL Low 1.7-2.3 [facility] Comment on above: Order Comment: Speci men Type: BLOOD SPECIMENOrdering Facility: [facility] Address: [address] [place] [address] Performed By: #### 2 4323-8, 93297-2, 2777-1 ####[facility] LABCLIA [id number] [place] [address] [place] PT panel Coag (PPP)on 2023 INR Coag (PPP) [Relative time] 1.6 {INR} High 0.9-1.3 [facility] Comment on above: Order Comment: Specgema men Type: BLOOD SPECIMENOrdering Facility: [facility] Address: [address] [place] [address] Result Comment: Jesusita min K Antagonist (VKA) Therapeutic Range: INR 2 to 3 (Target INR of 2.5)Note: For patients treated with VKA drugs, such as warfarin, the [employer] 2012 Guideline recommends a therapeutic INR range of 2 to 3 (target INR of 2.5). This recommendation includes high-risk patients with antiphospholipid syndrome with previous arterial or venous thromboembolism, current-generation mechanical or bioprosthetic aortic heart valve replacement.Note: Patients with mechanical aortic valve replacement and additional risk factors for thromboembolic events (atrial fibrillation, previous thromboembolism, LV dysfunction, hypercoagulable conditions) or an older generation mechanical AVR (i.e., ball in-Cage) or any mechanical MVR should have a INR therapeutic range of 2.5 to 3.5 (target INR of 3).Kristie ZAMORA, et al. Chest 2012, 141:7S-47SRafa RA, et al. [facility] 2017, 70: 252-289 Performed By: #### 1 4979-9, 93359-0 ####[facility] LABCLIA [id number] [place] [id number] [place] PT Coag (PPP) [Time] 16.5 s High 9.7-13.0 [facility] Comment on above: Order Comment: Elgin lyons Type: BLOOD SPECIMENOrdering Facility: [facility] Address: [address] [place] [address] Performed By: #### 1 4979-9, 88845-6 ####[facility] LABCLIA [id number] [address] [address] [place] Phosphate SerPl-mCncon 01-02 Phosphate [Mass/Vol] 2.5 mg/dL Low 2.7-4.8 [facility] Comment on above: Order Comment: Speci men Type: BLOOD SPECIMENOrdering Facility: [facility] Address: [address] [place] [address] Performed By: #### 1 9123-9, 2777-1, 70759-3 ####[facility] LABCLIA [id number] [place] [address] [place] Phosphate [Mass/Vol] 1.8 mg/dL Low 2.7-4.8 [facility] Comment on above: Order Comment: Speci men Type: BLOOD SPECIMENOrdering Facility: [facility] Address: [address] [place] [address] Performed By: #### 2 4323-8, 19524-9, 2777-1 ####[facility] LABCLIA [id number] [place] [address] [place] [facility] SEPSIS LACTATEon 01-03-2024 Lactate [Moles/Vol] 0.7 mmol/L Normal <=2.0 [facility] Comment on above: Order Comment: Speci men Type: BLOOD SPECIMENOrdering Facility: [facility] Address: [address] [place] [address] Performed By: #### S LACT ####[facility] LABCLIA [id number] [place] [address] [place] Lactate [Moles/Vol] 1.3 mmol/L Normal <=2.0 [facility] Comment on above: Order Comment: Speci men Type: BLOOD SPECIMENOrdering Facility: [facility] Address: [address] [place] [address] Performed By: #### S LACT ####[facility] LABCLIA [id number] [id number] [address] [place] STAPHYLOCOCCUS AUREUS AND MR SA SCREEN, PCR, NASALon 01-03-2024 S. aureus and MRSA panel NATALY+probe (Nose) Not detected Normal Not Detected [facility] Comment on above: Order Comment: Speci men Type: SWABOrdering Facility: [facility] Address: [address] [place] [address] Performed By: #### S APCR ####[facility] LABCLIA [id number] [place] [address] [place] THERAPY NTon 01-03-2024 THERAPY NT Normal [facility] Urinalysis complete pnl Uron 01-03-2024 Urinalysis complete panel (U) Abnormal [facility] Comment on above: Order Comment: Speci men Type: URINE SPECIMENOrdering Facility: [facility] Address: [address] [place] [address] Performed By: #### 2 4356-8 ####[facility] LABCLIA [id number] [place] [address] [place] aPTT PPPon 01-03-2024 aPTT Coag (PPP) [Time] 97.2 s High 23.0-32.4 [facility] Comment on above: Order Comment: Speci men Type: BLOOD SPECIMENOrdering Facility: [facility] Address: [address] [place] [address] Performed By: #### 1 4979-9 ####[facility] LABCLIA [id number] [place] [address] [place] aPTT Coag (PPP) [Time] 44.3 s High 23.0-32.4 [facility] Comment on above: Order Comment: Speci men Type: BLOOD SPECIMENOrdering Facility: [facility] Address: [address] [place] [address] Performed By: #### 1 4979-9, 27517-5 ####[facility] LABCLIA [id number] [place] [address] [place] Bacteria Bld Culton 01-02-20 24 Bacteria identified Cx Nom (Bld) CULTURE, BLOOD: No growth 5 days Normal [facility] Comment on above: Performed By: #### 6 00-7 ####[facility] LABCLIA [id number] [place] [address] [place] Bacteria identified Cx Nom (Bld) Abnormal [facility] Comment on above: Performed By: #### 6 00-7 ####[facility] LABCLIA [id number] [place] [address] [place] CBC W Auto Differential pane l (Bld)on 01-02-2024 Anisocytosis Ql (Bld) Present Normal [facility] Comment on above: Order Comment: Speci men Type: BLOOD SPECIMENOrdering Facility: [facility] Address: [address] [place] [address] Performed By: #### 4 537-7, 34504-5 ####[facility] LABCLIA [id number] [place] [address] [place] Basophils (Bld) [#/Vol] 0.00 10*3/uL Normal <0.11 [facility] Comment on above: Order Comment: Speci men Type: BLOOD SPECIMENOrdering Facility: [facility] Address: [address] [place] [address] Performed By: #### 4 537-7, 98223-8 ####[facility] LABCLIA [id number] [place] [address] [place] Basophils/100 WBC (Bld) 0.0 % Normal [facility] Comment on above: Order Comment: Speci men Type: BLOOD SPECIMENOrdering Facility: [facility] Address: [address] [place] [address] Performed By: #### 4 537-7, 07176-3 ####[facility] LABCLIA [id number] [place] [id number] [place] Dacrocytes LM Ql (Bld) Few Normal [facility] Comment on above: Order Comment: Speci men Type: BLOOD SPECIMENOrdering Facility: [facility] Address: [address] [place] [address] Performed By: #### 4 537-7, 24066-9 ####[facility] LABCLIA [id number] [place] [address] [place] Differential cell count method Nom (Bld) Manual Normal [facility] Comment on above: Order Comment: Speci men Type: BLOOD SPECIMENOrdering Facility: [facility] Address: [address] [place] [address] Performed By: #### 4 537-7, 76585-1 ####[facility] LABCLIA [id number] [place] [address] [place] Eosinophils (Bld) [#/Vol] 0.00 10*3/uL Normal <0.46 [facility] Comment on above: Order Comment: Speci men Type: BLOOD SPECIMENOrdering Facility: [facility] Address: [address] [place] [address] Performed By: #### 4 537-7, 65641-5 ####[facility] LABCLIA [id number] [place] [address] [place] Eosinophils/100 WBC (Bld) 0.0 % Normal [facility] Comment on above: Order Comment: Speci men Type: BLOOD SPECIMENOrdering Facility: [facility] Address: [address] [place] [address] Performed By: #### 4 537-7, 43922-3 ####[facility] LABCLIA [id number] [place] [address] [place] Erythrocyte distribution width (RBC) [Ratio] 15.7 % High 11.5-15.0 [facility] Comment on above: Order Comment: Speci men Type: BLOOD SPECIMENOrdering Facility: [facility] Address: [address] [place] [address] Performed By: #### 4 537-7, 10169-9 ####[facility] LABIA [id number] [place] [address] [place] Hematocrit (Bld) [Volume fraction] 29.1 % Low 36.0-46.0 [facility] Comment on above: Order Comment: Speci men Type: BLOOD SPECIMENOrdering Facility: [facility] Address: [address] [place] [address] Performed By: #### 4 537-7, 78746-3 ####[facility] LABIA [id number] [place] [address] [place] Hemoglobin (Bld) [Mass/Vol] 9.4 g/dL Low 11.5-15.5 [facility] Comment on above: Order Comment: Speci men Type: BLOOD SPECIMENOrdering Facility: [facility] Address: [address] [place] [address] Performed By: #### 4 537-7, 40279-6 ####[facility] [id number] [place] [address] [place] Lymphocytes (Bld) [#/Vol] 0.65 10*3/uL Low 1.00-4.00 [facility] Comment on above: Order Comment: Speci men Type: BLOOD SPECIMENOrdering Facility: [facility] Address: [address] [place] [address] Performed By: #### 4 537-7, 50348-3 ####[facility] LABIA [id number] [place] [address] [place] Lymphocytes/100 WBC (Bld) 10.5 % Normal [facility] Comment on above: Order Comment: Speci men Type: BLOOD SPECIMENOrdering Facility: [facility] Address: [address] [place] [address] Performed By: #### 4 537-7, 69561-0 ####[facility] LABIA [id number] [place] [address] [place] MCH (RBC) [Entitic mass] 27.9 pg Normal 26.0-34.0 [facility] Comment on above: Order Comment: Speci men Type: BLOOD SPECIMENOrdering Facility: [facility] Address: [address] [place] [address] Performed By: #### 4 537-7, 94432-3 ####[facility]IA [id number] [place] [address] [place] MCHC (RBC) [Mass/Vol] 32.3 g/dL Normal 30.5-36.0 [facility] Comment on above: Order Comment: Speci men Type: BLOOD SPECIMENOrdering Facility: [facility] Address: [address] [place] [address] Performed By: #### 4 537-7, 51770-8 ####[facility] LABIA [id number] [place] [address] [place] MCV (RBC) [Entitic vol] 86.4 fL Normal 80.0-100.0 [facility] Comment on above: Order Comment: Speci men Type: BLOOD SPECIMENOrdering Facility: [facility] Address: [address] [place] [address] Performed By: #### 4 537-7, 40731-3 ####[facility] LABIA [id number] [place] [id number] [place] Monocytes (Bld) [#/Vol] 0.27 10*3/uL Normal <0.87 [facility] Comment on above: Order Comment: Speci men Type: BLOOD SPECIMENOrdering Facility: [facility] Address: [address] [place] [address] Performed By: #### 4 537-7, 61807-6 ####[facility] LABCLIA [id number] [place] [address] [place] Monocytes/100 WBC (Bld) 4.4 % Normal [facility] Comment on above: Order Comment: Speci men Type: BLOOD SPECIMENOrdering Facility: [facility] Address: [address] [place] [address] Performed By: #### 4 537-7, 65473-7 ####[facility] LABCLIA [id number] [place] [address] [place] Neutrophils (Bld) [#/Vol] 5.29 10*3/uL Normal 1.45-7.50 [facility] Comment on above: Order Comment: Speci men Type: BLOOD SPECIMENOrdering Facility: [facility] Address: [address] [place] [address] Performed By: #### 4 537-7, 37892-5 ####[facility] LABCLIA [id number] [place] [address] [place] Neutrophils/100 WBC (Bld) 85.1 % Normal [facility] Comment on above: Order Comment: Speci men Type: BLOOD SPECIMENOrdering Facility: [facility] Address: [address] [place] [address] Performed By: #### 4 537-7, 93109-8 ####[facility] LABCLIA [id number] [place] [address] [place] Nucleated RBC (Bld) [#/Vol] 10*3/uL Normal <0.01 [facility] Comment on above: Order Comment: Speci men Type: BLOOD SPECIMENOrdering Facility: [facility] Address: [address] [place] [address] Performed By: #### 4 537-7, 44339-3 ####[facility] LABCLIA [id number] [place] [address] [place] Nucleated RBC/100 WBC (Bld) [Ratio] 0.0 /100 WBC Normal [facility] Comment on above: Order Comment: Speci men Type: BLOOD SPECIMENOrdering Facility: [facility] Address: [address] [place] [address] Performed By: #### 4 537-7, 34380-5 ####[facility] LABCLIA [id number] [place] [address] [place] Ovalocytes LM Ql (Bld) Few Normal [facility] Comment on above: Order Comment: Speci men Type: BLOOD SPECIMENOrdering Facility: [facility] Address: [address] [place] [address] Performed By: #### 4 537-7, 20681-3 ####[facility]IA [id number] [place] [address] [place] Platelet mean volume (Bld) [Entitic vol] 10.3 fL Normal 9.0-12.7 [facility] Comment on above: Order Comment: Speci men Type: BLOOD SPECIMENOrdering Facility: [facility] Address: [address] [place] [address] Performed By: #### 4 537-7, 24332-8 ####[facility]IA [id number] [place] [address] [place] Platelets (Bld) [#/Vol] 82 10*3/uL Low 150-400 [facility] Comment on above: Order Comment: Speci men Type: BLOOD SPECIMENOrdering Facility: [facility] Address: [address] [place] [address] Result Comment: No c lot detected. Performed By: #### 4 537-7, 92969-7 ####[facility]IA [id number] [place] [address] [place] Platelets Estimate (Bld) [#/Vol] Decreased Normal [facility] Comment on above: Order Comment: Speci men Type: BLOOD SPECIMENOrdering Facility: [facility] Address: [address] [place] [address] Performed By: #### 4 537-7, 06815-6 ####[facility]IA [id number] [place] [address] [place] RBC (Bld) [#/Vol] 3.37 10*6/uL Low 3.90-5.20 [facility] Comment on above: Order Comment: Speci men Type: BLOOD SPECIMENOrdering Facility: [facility] Address: [address] [place] [address] Performed By: #### 4 537-7, 11458-1 ####[facility]IA [id number] [place] [address] [place] RED CELL MORPH Reviewed: see result s of individual morphologies Normal [facility] Comment on above: Order Comment: Speci men Type: BLOOD SPECIMENOrdering Facility: [facility] Address: [address] [place] [address] Performed By: #### 4 537-7, 51217-3 ####[facility]IA [id number] [place] [address] [place] WBC (Bld) [#/Vol] 6.22 10*3/uL Normal 3.70-11.00 [facility] Comment on above: Order Comment: Speci men Type: BLOOD SPECIMENOrdering Facility: [facility] Address: [address] [place] [address] Performed By: #### 4 537-7, 09911-6 ####[facility] [id number] [place] [address] [place] CONSULT PROGon 01-02-2024 CONSULT PROG Normal [facility] CRP SerPl-mCncon 01-02-2024 CRP [Mass/Vol] 14.5 mg/dL High <0.9 [facility] Comment on above: Order Comment: Speci men Type: BLOOD SPECIMENOrdering Facility: [facility] Address: [address] [place], [place] [address] Performed By: #### 2 432-8, , 1987-07 ####[facility] LABCLIA [id number] [address] [address] [place] Comprehensive metabolic 2000 panelon 01-02-2024 Albumin [Mass/Vol] 3.1 g/dL Low 3.9-4.9 [facility] Comment on above: Order Comment: Speci men Type: BLOOD SPECIMENOrdering Facility: [facility] Address: [address] [place] [address] Performed By: #### 2 432-8, , 1987-07 ####[facility] LABCLIA [id number] [place] [address] [place] ALP [Catalytic activity/Vol] 94 U/L Normal 34-123 [facility] Comment on above: Order Comment: Speci men Type: BLOOD SPECIMENOrdering Facility: [facility] Address: [address] [place] [address] Performed By: #### 2 432-8, , 1987-07 ####[facility]IA [id number] [place] [id number] [place] ALT [Catalytic activity/Vol] 13 U/L Normal 7-38 [facility] Comment on above: Order Comment: Speci men Type: BLOOD SPECIMENOrdering Facility: [facility] Address: [address] [place], [place] [address] Performed By: #### 2 4323-8, , 1987-07 ####[facility]IA [id number] [address] [address] [place] Anion gap [Moles/Vol] 11 mmol/L Normal 8-15 [facility] Comment on above: Order Comment: Speci men Type: BLOOD SPECIMENOrdering Facility: [facility] Address: [address] [place], [place] [address] Performed By: #### 2 8, , 1987-07 ####[facility] LABCLIA [id number] [address] [address] [place] AST [Catalytic activity/Vol] 15 U/L Normal 13-35 [facility] Comment on above: Order Comment: Speci men Type: BLOOD SPECIMENOrdering Facility: [facility] Address: [address] [place] [address] Performed By: #### 2 8, , 1987-07 ####[facility] LABCLIA [id number] [place] [address] [place] Bilirubin [Mass/Vol] 0.6 mg/dL Normal 0.2-1.3 [facility] Comment on above: Order Comment: Speci men Type: BLOOD SPECIMENOrdering Facility: [facility] Address: [address] [place] [address] Performed By: #### 2 8, , 1987-07 ####[facility] LABCLIA [id number] [place] [address] [place] Calcium [Mass/Vol] 8.3 mg/dL Low 8.5-10.2 [facility] Comment on above: Order Comment: Speci men Type: BLOOD SPECIMENOrdering Facility: [facility] Address: [address] [place] [address] Performed By: #### 2 8, , 1987-07 ####[facility] LABCLIA [id number] [address] [address] [place] Chloride [Moles/Vol] 110 mmol/L High 98-107 [facility] Comment on above: Order Comment: Speci men Type: BLOOD SPECIMENOrdering Facility: [facility] Address: [address] [place] [address] Performed By: #### 2 8, , 1987-07 ####[facility] LABCLIA [id number] [place] [id number] [place] CO2 [Moles/Vol] 21 mmol/L Low 22-30 [facility] Comment on above: Order Comment: Speci men Type: BLOOD SPECIMENOrdering Facility: [facility] Address: [address] [place] [address] Performed By: #### 2 432-8, , 1987-07 ####[facility] LABCLIA [id number] [place] [id number] [place] Creatinine [Mass/Vol] 0.98 mg/dL High 0.58-0.96 [facility] Comment on above: Order Comment: Speci men Type: BLOOD SPECIMENOrdering Facility: [facility] Address: [address] [place] [address] Performed By: #### 2 4328, , 1987-07 ####[facility] [id number] [place] [address] [place] Creatinine and Glomerular filtration rate.predicted panel (S/P/Bld) 71 mL/min/1.73m??? Normal >=60 [facility] Comment on above: Order Comment: Speci men Type: BLOOD SPECIMENOrdering Facility: [facility] Address: [address] [place] [address] Result Comment: Yani mated Glomerular Filtration Rate (eGFR) is calculated using the 2020 CKD-EPI creatinine equation. This equation utilizes serum creatinine, sex, and age as parameters. The creatinine assay has traceable calibration to isotope dilution-mass spectrometry. Refer to KDIGO guidelines for clinical interpretation. In patients with unstable renal function, e.g. those with acute kidney injury, the eGFR may not accurately reflect actual GFR. Performed By: #### 2 4323-8, , 1987-07 ####[facility] [id number] [address] [address] [place] Glucose [Mass/Vol] 100 mg/dL High 74-99 [facility] Comment on above: Order Comment: Speci men Type: BLOOD SPECIMENOrdering Facility: [facility] Address: [address] [place] [address] Result Comment: The [place] Diabetes [employer] (ADA) provides guidance for cutoff values for fasting glucose and random glucose. The ADA defines fasting as no caloric intake for at least 8 hours. Fasting plasma glucose results between 100 to 125 mg/dL indicate increased risk for diabetes (prediabetes).Fasting plasma glucose results greater than or equal to 126 mg/dL meet the criteria for diagnosis of diabetes. In the absence of unequivocal hyperglycemia, results should be confirmed by repeat testing. In a patient with classic symptoms of hyperglycemia or hyperglycemic crisis, random plasma glucose results greater than or equal to 200 mg/dL meet the criteria for diagnosis of diabetes.Reference: Standards of Medical Care in Diabetes 2016, [place] [employer]. Diabetes Care. 2016.39(Suppl 1). Performed By: #### 2 432-8, , 1987-07 ####[facility] LABCL[facility] [id number] [place] [address] [place] Potassium [Moles/Vol] 3.4 mmol/L Low 3.7-5.1 [facility] Comment on above: Order Comment: Jimii men Type: BLOOD SPECIMENOrdering Facility: [facility] Address: [address] [place] [address] Performed By: #### 2 4328, , 1987-07 ####[facility] LABCLIA [id number] [place] [id number] [place] Protein [Mass/Vol] 5.3 g/dL Low 6.3-8.0 [facility] Comment on above: Order Comment: Speci men Type: BLOOD SPECIMENOrdering Facility: [facility] Address: [address] [place] [address] Performed By: #### 2 4328, , 1987-07 ####[facility]CL[facility] [id number] [place] [address] [place] Sodium [Moles/Vol] 142 mmol/L Normal 136-144 [facility] Comment on above: Order Comment: Speci men Type: BLOOD SPECIMENOrdering Facility: [facility] Address: [address] [place], [place] [address] Performed By: #### 2 4323-8, , 1987-07 ####[facility] LABCLIA [id number] [place] [address] [place] Urea nitrogen [Mass/Vol] 15 mg/dL Normal 7-21 [facility] Comment on above: Order Comment: Speci men Type: BLOOD SPECIMENOrdering Facility: [facility] Address: [address] [place] [address] Performed By: #### 2 4323-8, , 1988-07 ####[facility] LABIA [id number] [place] [id number] [place] ECG COMPLETEon 01-02-2024 ECG COMPLETE Normal [facility] ESR Westergren method (Bld) [Velocity]on 01-02-2024 ESR (Bld) [Velocity] 24 mm/h High 0-20 [facility] Comment on above: Order Comment: Speci men Type: BLOOD SPECIMENOrdering Facility: [facility] Address: [address] [place] [address] Performed By: #### 4 537-7, 52251-9 ####[facility] LABIA [id number] [place] [id number] [place] HISTORY PHYSICALon HISTORY PHYSICAL Normal [facility] MEDICAL EMERon 01-02-2024 MEDICAL BRIDGER Normal [facility] Magnesium SerPl-mCncon 01-01 Magnesium [Mass/Vol] 1.5 mg/dL Low 1.7-2.3 [facility] Comment on above: Order Comment: Speci men Type: BLOOD SPECIMENOrdering Facility: [facility] Address: [address] [place] [address] Performed By: #### 2 4323-8, 55807-6, 1988- ####[facility] LABCLIA [id number] [place] [address] [place] PT panel Coag (PPP)on 2023 INR Coag (PPP) [Relative time] 1.5 {INR} High 0.9-1.3 [facility] Comment on above: Order Comment: Speci men Type: BLOOD SPECIMENOrdering Facility: [facility] Address: [address] [place] [address] Result Comment: Jesusita min K Antagonist (VKA) Therapeutic Range: INR 2 to 3 (Target INR of 2.5)Note: For patients treated with VKA drugs, such as warfarin, the [employer] 2012 Guideline recommends a therapeutic INR range of 2 to 3 (target INR of 2.5). This recommendation includes high-risk patients with antiphospholipid syndrome with previous arterial or venous thromboembolism, current-generation mechanical or bioprosthetic aortic heart valve replacement.Note: Patients with mechanical aortic valve replacement and additional risk factors for thromboembolic events (atrial fibrillation, previous thromboembolism, LV dysfunction, hypercoagulable conditions) or an older generation mechanical AVR (i.e., ball in-Cage) or any mechanical MVR should have a INR therapeutic range of 2.5 to 3.5 (target INR of 3).Kristie ZAMORA, et al. Chest 2012, 141:7S-47SRafa RA, et al. [facility] 2017, 70: 252-289 Performed By: #### 3 4528-0, 91794-8 ####[facility] LABCLIA [id number] [place] [id number] [place] PT Coag (PPP) [Time] 15.1 s High 9.7-13.0 [facility] Comment on above: Order Comment: [place] men Type: BLOOD SPECIMENOrdering Facility: [facility] Address: [address] [place] [address] Performed By: #### 3 4528-0, 15735-6 ####[facility] LABCLIA [id number] [place] [address] [place] SEPSIS LACTATE W/ REFLEX (IN ITIAL)on 01-02-2024 Lactate [Moles/Vol] 1.1 mmol/L Normal <=2.0 [facility] Comment on above: Order Comment: Speci men Type: BLOOD SPECIMENOrdering Facility: [facility] Address: [address] [place] [address] Performed By: #### S LACTR ####[facility] LABCLIA [id number] [place] [address] [place] XR CHEST 1V FRONTAL PORTon 1 XR CHEST 1V FRONTAL PORT Normal [facility] aPTT PPPon 01-02-2024 aPTT Coag (PPP) [Time] 50.9 s High 23.0-32.4 [facility] Comment on above: Order Comment: Speci men Type: BLOOD SPECIMENOrdering Facility: [facility] Address: [address] [place] [address] Performed By: #### 3 4528-0, 84294-7 ####[facility] LABCLIA [id number] [place] [address] [place] CNOVon 12-21-2023 CNOV Normal [facility] CNPTOUTREACHon 12-15-2023 CNPTOUTREACH Normal [facility] CNPTOUTREACHon 12-10-2023 CNPTOUTREACH Normal [facility] CNOVon 12-02-2023 CNOV Normal [facility] CNPNon 12-01-2023 CNPN Normal [facility] CNPNon 11-12-2023 CNPN Normal [facility] ECG COMPLETEon 11-11-2023 ECG COMPLETE Normal [facility] PT panel Coag (PPP)on 2023 INR Coag (PPP) [Relative time] 2.1 {INR} High 0.9-1.3 [facility] Comment on above: Order Comment: Speci men Type: BLOOD SPECIMENOrdering Facility: [facility] Address: [address] [place] [address] Result Comment: Jesusita min K Antagonist (VKA) Therapeutic Range: INR 2 to 3 (Target INR of 2.5)Note: For patients treated with VKA drugs, such as warfarin, the [employer] 2012 Guideline recommends a therapeutic INR range of 2 to 3 (target INR of 2.5). This recommendation includes high-risk patients with antiphospholipid syndrome with previous arterial or venous thromboembolism, current-generation mechanical or bioprosthetic aortic heart valve replacement.Note: Patients with mechanical aortic valve replacement and additional risk factors for thromboembolic events (atrial fibrillation, previous thromboembolism, LV dysfunction, hypercoagulable conditions) or an older generation mechanical AVR (i.e., ball in-Cage) or any mechanical MVR should have a INR therapeutic range of 2.5 to 3.5 (target INR of 3).Kristie ZAMORA, et al. Chest 2012, 141:7S-47SNishmike RA, et al. [facility] 2017, 70: 252-289 Performed By: #### 3 4528-0 ####[facility] LABCLIA [id number] [place] [address] [place] PT Coag (PPP) [Time] 20.7 s High 9.7-13.0 [facility] Comment on above: Order Comment: Speci men Type: BLOOD SPECIMENOrdering Facility: [facility] Address: [address] [place] [address] Performed By: #### 3 4528-0 ####[facility] LABIA [id number] [place] [phone] [place] THERAPY NTon 11-11-2023 THERAPY NT Normal [facility] CBC panel Auto (Bld)on 11-09 Erythrocyte distribution width (RBC) [Ratio] 13.3 % Normal 11.5-15.0 [facility] Comment on above: Order Comment: Speci men Type: BLOOD SPECIMENOrdering Facility: [facility] Address: [address] [place] [address] Performed By: #### 5 8410-2 ####[facility] LABIA [id number] [place] [address] [place] Hematocrit (Bld) [Volume fraction] 29.0 % Low 36.0-46.0 [facility] Comment on above: Order Comment: Speci men Type: BLOOD SPECIMENOrdering Facility: [facility] Address: [address] [place] [address] Performed By: #### 5 8410-2 ####[facility] LABIA [id number] [place] [address] [place] Hemoglobin (Bld) [Mass/Vol] 9.3 g/dL Low 11.5-15.5 [facility] Comment on above: Order Comment: Speci men Type: BLOOD SPECIMENOrdering Facility: [facility] Address: [address] [place] [address] Performed By: #### 5 8410-2 ####[facility] [id number] [place] [address] [place] MCH (RBC) [Entitic mass] 27.1 pg Normal 26.0-34.0 [facility] Comment on above: Order Comment: Speci men Type: BLOOD SPECIMENOrdering Facility: [facility] Address: [address] [place] [address] Performed By: #### 5 8410-2 ####[facility] [id number] [place] [address] [place] MCHC (RBC) [Mass/Vol] 32.1 g/dL Normal 30.5-36.0 [facility] Comment on above: Order Comment: Speci men Type: BLOOD SPECIMENOrdering Facility: [facility] Address: [address] [place] [address] Performed By: #### 5 8410-2 ####[facility] [id number] [place] [address] [place] MCV (RBC) [Entitic vol] 84.5 fL Normal 80.0-100.0 [facility] Comment on above: Order Comment: Speci men Type: BLOOD SPECIMENOrdering Facility: [facility] Address: [address] [place] [address] Performed By: #### 5 8410-2 ####[facility] LABCLIA [id number] [place] [address] [place] Nucleated RBC (Bld) [#/Vol] 10*3/uL Normal <0.01 [facility] Comment on above: Order Comment: Speci men Type: BLOOD SPECIMENOrdering Facility: [facility] Address: [address] [place] [address] Performed By: #### 5 8410-2 ####[facility] LABIA [id number] [place] [address] [place] Platelet mean volume (Bld) [Entitic vol] 10.1 fL Normal 9.0-12.7 [facility] Comment on above: Order Comment: Speci men Type: BLOOD SPECIMENOrdering Facility: [facility] Address: [address] [place] [address] Performed By: #### 5 8410-2 ####[facility] LABIA [id number] [place] [address] [place] Platelets (Bld) [#/Vol] 223 10*3/uL Normal 150-400 [facility] Comment on above: Order Comment: Speci men Type: BLOOD SPECIMENOrdering Facility: [facility] Address: [address] [place] [address] Performed By: #### 5 8410-2 ####[facility] LABIA [id number] [place] [address] [place] RBC (Bld) [#/Vol] 3.43 10*6/uL Low 3.90-5.20 [facility] Comment on above: Order Comment: Speci men Type: BLOOD SPECIMENOrdering Facility: [facility] Address: [address] [place], [place] [address] Performed By: #### 5 8410-2 ####[facility] LABCLIA [id number] [place] [address] [place] WBC (Bld) [#/Vol] 6.12 10*3/uL Normal 3.70-11.00 [facility] Comment on above: Order Comment: Speci men Type: BLOOD SPECIMENOrdering Facility: [facility] Address: [address] [place] [address] Performed By: #### 5 8410-2 ####[facility] LABCLIA [id number] [place] [address] [place] Comprehensive metabolic 2000 panelon 11-10-2023 Albumin [Mass/Vol] 3.3 g/dL Low 3.9-4.9 [facility] Comment on above: Order Comment: Speci men Type: BLOOD SPECIMENOrdering Facility: [facility] Address: [address] [place] [address] Performed By: #### 2 4323-8 ####[facility] LABCLIA [id number] [place] [address] [place] ALP [Catalytic activity/Vol] 76 U/L Normal 34-123 [facility] Comment on above: Order Comment: Speci men Type: BLOOD SPECIMENOrdering Facility: [facility] Address: [address] [place] [address] Performed By: #### 2 4323-8 ####[facility] LABCLIA [id number] [address] [address] [place] ALT [Catalytic activity/Vol] 9 U/L Normal 7-38 [facility] Comment on above: Order Comment: Speci men Type: BLOOD SPECIMENOrdering Facility: [facility] Address: [address] [place] [address] Performed By: #### 2 4323-8 ####[facility] LABCLIA [id number] [place] [address] [place] Anion gap [Moles/Vol] 12 mmol/L Normal 8-15 [facility] Comment on above: Order Comment: Speci men Type: BLOOD SPECIMENOrdering Facility: [facility] Address: [address] [place] [address] Performed By: #### 2 4323-8 ####[facility] LABCLIA [id number] [place] [address] [place] AST [Catalytic activity/Vol] 16 U/L Normal 13-35 [facility] Comment on above: Order Comment: Speci men Type: BLOOD SPECIMENOrdering Facility: [facility] Address: [address] [place] [address] Performed By: #### 2 4323-8 ####[facility] LABCLIA [id number] [place] [address] [place] Bilirubin [Mass/Vol] 0.4 mg/dL Normal 0.2-1.3 [facility] Comment on above: Order Comment: Speci men Type: BLOOD SPECIMENOrdering Facility: [facility] Address: [address] [place] [address] Performed By: #### 2 4323-8 ####[facility] LABCLIA [id number] [place] [address] [place] Calcium [Mass/Vol] 8.8 mg/dL Normal 8.5-10.2 [facility] Comment on above: Order Comment: Speci men Type: BLOOD SPECIMENOrdering Facility: [facility] Address: [address] [place] [address] Performed By: #### 2 4323-8 ####[facility] LABCLIA [id number] [place] [address] [place] Chloride [Moles/Vol] 95 mmol/L Low 98-107 [facility] Comment on above: Order Comment: Speci men Type: BLOOD SPECIMENOrdering Facility: [facility] Address: [address] [place] [address] Performed By: #### 2 4323-8 ####[facility] LABCLIA [id number] [place] [address] [place] CO2 [Moles/Vol] 26 mmol/L Normal 22-30 [facility] Comment on above: Order Comment: Speci men Type: BLOOD SPECIMENOrdering Facility: [facility] Address: [address] [place] [address] Performed By: #### 2 4323-8 ####[facility] LABCLIA [id number] [place] [address] [place] Creatinine [Mass/Vol] 0.66 mg/dL Normal 0.58-0.96 [facility] Comment on above: Order Comment: Speci men Type: BLOOD SPECIMENOrdering Facility: [facility] Address: [address] [place] [address] Performed By: #### 2 4323-8 ####[facility] LABIA [id number] [place] [address] [place] Creatinine and Glomerular filtration rate.predicted panel (S/P/Bld) 108 mL/min/1.73m??? Normal >=60 [facility] Comment on above: Order Comment: Speci men Type: BLOOD SPECIMENOrdering Facility: [facility] Address: [address] [place] [address] Result Comment: Yani mated Glomerular Filtration Rate (eGFR) is calculated using the 2020 CKD-EPI creatinine equation. This equation utilizes serum creatinine, sex, and age as parameters. The creatinine assay has traceable calibration to isotope dilution-mass spectrometry. Refer to KDIGO guidelines for clinical interpretation. In patients with unstable renal function, e.g. those with acute kidney injury, the eGFR may not accurately reflect actual GFR. Performed By: #### 2 4323-8 ####[facility] LABCLIA [id number] [place] [address] [place] Glucose [Mass/Vol] 136 mg/dL High 74-99 [facility] Comment on above: Order Comment: Speci men Type: BLOOD SPECIMENOrdering Facility: [facility] Address: [address] [place] [address] Result Comment: The [place] Diabetes Association (ADA) provides guidance for cutoff values for fasting glucose and random glucose. The ADA defines fasting as no caloric intake for at least 8 hours. Fasting plasma glucose results between 100 to 125 mg/dL indicate increased risk for diabetes (prediabetes).Fasting plasma glucose results greater than or equal to 126 mg/dL meet the criteria for diagnosis of diabetes. In the absence of unequivocal hyperglycemia, results should be confirmed by repeat testing. In a patient with classic symptoms of hyperglycemia or hyperglycemic crisis, random plasma glucose results greater than or equal to 200 mg/dL meet the criteria for diagnosis of diabetes.Reference: Standards of Medical Care in Diabetes 2016, [place] Diabetes Association. Diabetes Care. 2016.39(Suppl 1). Performed By: #### 2 4323-8 ####[facility] LABCLIA [id number] [place] [address] [place] Potassium [Moles/Vol] 3.8 mmol/L Normal 3.7-5.1 [facility] Comment on above: Order Comment: Speci men Type: BLOOD SPECIMENOrdering Facility: [facility] Address: [address] [place] [address] Performed By: #### 2 4323-8 ####[facility] LABCLIA [id number] [place] [address] [place] Protein [Mass/Vol] 6.4 g/dL Normal 6.3-8.0 [facility] Comment on above: Order Comment: Speci men Type: BLOOD SPECIMENOrdering Facility: [facility] Address: [address] [place] [address] Performed By: #### 2 4323-8 ####[facility] LABCLIA [id number] [place] [address] [place] Sodium [Moles/Vol] 133 mmol/L Low 136-144 [facility] Comment on above: Order Comment: [place] eloy Type: BLOOD SPECIMENOrdering Facility: [facility] Address: [address] [place] [address] Performed By: #### 2 4323-8 ####[facility] LABCLIA [id number] [place] [address] [place] Urea nitrogen [Mass/Vol] 7 mg/dL Normal 10-09 [facility] Comment on above: Order Comment: Speci men Type: BLOOD SPECIMENOrdering Facility: [facility] Address: [address] [place] [address] Performed By: #### 2 4323-8 ####[facility] LABIA [id number] [address] [place] ECG COMPLETEon 11-10-2023 ECG COMPLETE Normal [facility] PT panel Coag (PPP)on 2023 INR Coag (PPP) [Relative time] 1.6 {INR} High 0.9-1.3 [facility] Comment on above: Order Comment: [place] eloy Type: BLOOD SPECIMENOrdering Facility: [facility] Address: [address] [place] [address] Result Comment: Jesusita min K Antagonist (VKA) Therapeutic Range: INR 2 to 3 (Target INR of 2.5)Note: For patients treated with VKA drugs, such as warfarin, the [employer] 2012 Guideline recommends a therapeutic INR range of 2 to 3 (target INR of 2.5). This recommendation includes high-risk patients with antiphospholipid syndrome with previous arterial or venous thromboembolism, current-generation mechanical or bioprosthetic aortic heart valve replacement.Note: Patients with mechanical aortic valve replacement and additional risk factors for thromboembolic events (atrial fibrillation, previous thromboembolism, LV dysfunction, hypercoagulable conditions) or an older generation mechanical AVR (i.e., ball in-Cage) or any mechanical MVR should have a INR therapeutic range of 2.5 to 3.5 (target INR of 3).Kristie GH, et al. Chest 2012, 141:7S-47SNishimura RA, et al. [facility] 2017, 70: 252-289 Performed By: #### 3 4528-0 ####[facility] LABCLIA [id number] [place] [address] [place] PT Coag (PPP) [Time] 16.8 s High 9.7-13.0 [facility] Comment on above: Order Comment: Speci men Type: BLOOD SPECIMENOrdering Facility: [facility] Address: [address] [place] [address] Performed By: #### 3 4528-0 ####[facility] LABIA [id number] [address] [place] THERAPY NTon 11-10-2023 THERAPY NT Normal [facility] THERAPY NT Normal [facility] ALLIED HEALTHon 11-09-2023 ALLIED HEALTH Normal [facility] CBC panel Auto (Bld)on 11-08 Erythrocyte distribution width (RBC) [Ratio] 13.3 % Normal 11.5-15.0 [facility] Comment on above: Order Comment: Speci men Type: BLOOD SPECIMENOrdering Facility: [facility] Address: [address] [place] [address] Performed By: #### 5 8410-2 ####[facility] LABIA [id number] [place] [address] [place] Hematocrit (Bld) [Volume fraction] 26.6 % Low 36.0-46.0 [facility] Comment on above: Order Comment: Speci men Type: BLOOD SPECIMENOrdering Facility: [facility] Address: [address] [place] [address] Performed By: #### 5 8410-2 ####[facility] LABIA [id number] [place] [address] [place] Hemoglobin (Bld) [Mass/Vol] 8.8 g/dL Low 11.5-15.5 [facility] Comment on above: Order Comment: Speci men Type: BLOOD SPECIMENOrdering Facility: [facility] Address: [address] [place] [address] Performed By: #### 5 8410-2 ####[facility] LABCLIA [id number] [place] [address] [place] MCH (RBC) [Entitic mass] 27.7 pg Normal 26.0-34.0 [facility] Comment on above: Order Comment: Speci men Type: BLOOD SPECIMENOrdering Facility: [facility] Address: [address] [place] [address] Performed By: #### 5 8410-2 ####[facility] LABCLIA [id number] [place] [address] [place] MCHC (RBC) [Mass/Vol] 33.1 g/dL Normal 30.5-36.0 [facility] Comment on above: Order Comment: Speci men Type: BLOOD SPECIMENOrdering Facility: [facility] Address: [address] [place] [address] Performed By: #### 5 8410-2 ####[facility] LABCLIA [id number] [place] [address] [place] MCV (RBC) [Entitic vol] 83.6 fL Normal 80.0-100.0 [facility] Comment on above: Order Comment: Speci men Type: BLOOD SPECIMENOrdering Facility: [facility] Address: [address] [place] [address] Performed By: #### 5 8410-2 ####[facility] LABCLIA [id number] [place] [address] [place] Nucleated RBC (Bld) [#/Vol] 10*3/uL Normal <0.01 [facility] Comment on above: Order Comment: Speci men Type: BLOOD SPECIMENOrdering Facility: [facility] Address: [address] [place] [address] Performed By: #### 5 8410-2 ####[facility] LABCLIA [id number] [place] [address] [place] Platelet mean volume (Bld) [Entitic vol] 10.5 fL Normal 9.0-12.7 [facility] Comment on above: Order Comment: Speci men Type: BLOOD SPECIMENOrdering Facility: [facility] Address: [address] [place] [address] Performed By: #### 5 8410-2 ####[facility] LABIA [id number] [place] [address] [place] Platelets (Bld) [#/Vol] 158 10*3/uL Normal 150-400 [facility] Comment on above: Order Comment: Speci men Type: BLOOD SPECIMENOrdering Facility: [facility] Address: [address] [place] [address] Performed By: #### 5 8410-2 ####[facility] [id number] [place] [address] [place] RBC (Bld) [#/Vol] 3.18 10*6/uL Low 3.90-5.20 [facility] Comment on above: Order Comment: Speci men Type: BLOOD SPECIMENOrdering Facility: [facility] Address: [address] [place] [address] Performed By: #### 5 8410-2 ####[facility] LABIA [id number] [place] [address] [place] WBC (Bld) [#/Vol] 6.18 10*3/uL Normal 3.70-11.00 [facility] Comment on above: Order Comment: Speci men Type: BLOOD SPECIMENOrdering Facility: [facility] Address: [address] [place] [address] Performed By: #### 5 8410-2 ####[facility] LABIA [id number] [place] [address] [place] CTA CHEST (GATED) W IVCONon 11-09-2023 CTA CHEST (GATED) W IVCON Normal [facility] Comprehensive metabolic 2000 panelon 11-09-2023 Albumin [Mass/Vol] 3.1 g/dL Low 3.9-4.9 [facility] Comment on above: Order Comment: Speci men Type: BLOOD SPECIMENOrdering Facility: [facility] Address: [address] [place] [address] Performed By: #### 2 4323-8 ####[facility] LABCLIA [id number] [place] [address] [place] ALP [Catalytic activity/Vol] 71 U/L Normal 34-123 [facility] Comment on above: Order Comment: Speci men Type: BLOOD SPECIMENOrdering Facility: [facility] Address: [address] [place] [address] Performed By: #### 2 4323-8 ####[facility] LABCLIA [id number] [place] [address] [place] ALT [Catalytic activity/Vol] 9 U/L Normal 7-38 [facility] Comment on above: Order Comment: Speci men Type: BLOOD SPECIMENOrdering Facility: [facility] Address: [address] [place] [address] Performed By: #### 2 4323-8 ####[facility] LABCLIA [id number] [place] [address] [place] Anion gap [Moles/Vol] 10 mmol/L Normal 8-15 [facility] Comment on above: Order Comment: Speci men Type: BLOOD SPECIMENOrdering Facility: [facility] Address: [address] [place] [address] Performed By: #### 2 4323-8 ####[facility] LABCLIA [id number] [place] [address] [place] AST [Catalytic activity/Vol] 15 U/L Normal 13-35 [facility] Comment on above: Order Comment: Speci men Type: BLOOD SPECIMENOrdering Facility: [facility] Address: [address] [id number] Performed By: #### 2 4323-8 ####[facility] LABCLIA [id number] [place] [id number] [place] Bilirubin [Mass/Vol] 0.4 mg/dL Normal 0.2-1.3 [facility] Comment on above: Order Comment: Speci men Type: BLOOD SPECIMENOrdering Facility: [facility] Address: [address] [place] [address] Performed By: #### 2 4323-8 ####[facility] LABCLIA [id number] [place] [address] [place] Calcium [Mass/Vol] 8.8 mg/dL Normal 8.5-10.2 [facility] Comment on above: Order Comment: Speci men Type: BLOOD SPECIMENOrdering Facility: [facility] Address: [address] [place] [address] Performed By: #### 2 4323-8 ####[facility] LABCLIA [id number] [place] [address] [place] Chloride [Moles/Vol] 99 mmol/L Normal 98-107 [facility] Comment on above: Order Comment: Speci men Type: BLOOD SPECIMENOrdering Facility: [facility] Address: [address] [place] [address] Performed By: #### 2 4323-8 ####[facility] LABCLIA [id number] [place] [id number] [place] CO2 [Moles/Vol] 27 mmol/L Normal 22-30 [facility] Comment on above: Order Comment: Speci men Type: BLOOD SPECIMENOrdering Facility: [facility] Address: [address] [place], [place] [address] Performed By: #### 2 4323-8 ####[facility] LABCLIA [id number] [place] [address] [place] Creatinine [Mass/Vol] 0.60 mg/dL Normal 0.58-0.96 [facility] Comment on above: Order Comment: Elgin lyons Type: BLOOD SPECIMENOrdering Facility: [facility] Address: [address] [place] [address] Performed By: #### 2 4323-8 ####[facility] LABIA [id number] [place] [address] [place] Creatinine and Glomerular filtration rate.predicted panel (S/P/Bld) 110 mL/min/1.73m??? Normal >=60 [facility] Comment on above: Order Comment: Elgin lyons Type: BLOOD SPECIMENOrdering Facility: [facility] Address: [address] [place] [address] Result Comment: Yani mated Glomerular Filtration Rate (eGFR) is calculated using the 2020 CKD-EPI creatinine equation. This equation utilizes serum creatinine, sex, and age as parameters. The creatinine assay has traceable calibration to isotope dilution-mass spectrometry. Refer to KDIGO guidelines for clinical interpretation. In patients with unstable renal function, e.g. those with acute kidney injury, the eGFR may not accurately reflect actual GFR. Performed By: #### 2 4323-8 ####[facility] LABCLIA [id number] [place] [address] [place] Glucose [Mass/Vol] 106 mg/dL High 74-99 [facility] Comment on above: Order Comment: Elgin lyons Type: BLOOD SPECIMENOrdering Facility: [facility] Address: [address] [place] [address] Result Comment: The [place] Diabetes Association (ADA) provides guidance for cutoff values for fasting glucose and random glucose. The ADA defines fasting as no caloric intake for at least 8 hours. Fasting plasma glucose results between 100 to 125 mg/dL indicate increased risk for diabetes (prediabetes).Fasting plasma glucose results greater than or equal to 126 mg/dL meet the criteria for diagnosis of diabetes. In the absence of unequivocal hyperglycemia, results should be confirmed by repeat testing. In a patient with classic symptoms of hyperglycemia or hyperglycemic crisis, random plasma glucose results greater than or equal to 200 mg/dL meet the criteria for diagnosis of diabetes.Reference: Standards of Medical Care in Diabetes 2016, [place] Diabetes Association. Diabetes Care. 2016.39(Suppl 1). Performed By: #### 2 4323-8 ####[facility] LABCLIA [id number] [place] [id number] [place] Potassium [Moles/Vol] 4.0 mmol/L Normal 3.7-5.1 [facility] Comment on above: Order Comment: Speci men Type: BLOOD SPECIMENOrdering Facility: [facility] Address: [address] [place] [address] Performed By: #### 2 4323-8 ####[facility] LABIA [id number] [place] [address] [place] Protein [Mass/Vol] 6.0 g/dL Low 6.3-8.0 [facility] Comment on above: Order Comment: Speci men Type: BLOOD SPECIMENOrdering Facility: [facility] Address: [address] [place] [address] Performed By: #### 2 4323-8 ####[facility] LABIA [id number] [place] [address] [place] Sodium [Moles/Vol] 136 mmol/L Normal 136-144 [facility] Comment on above: Order Comment: Speci men Type: BLOOD SPECIMENOrdering Facility: [facility] Address: [address] [place] [address] Performed By: #### 2 4323-8 ####[facility] LABIA [id number] [place] [id number] [place] Urea nitrogen [Mass/Vol] 8 mg/dL Normal 7-21 [facility] Comment on above: Order Comment: Speci men Type: BLOOD SPECIMENOrdering Facility: [facility] Address: [address] [place] [address] Performed By: #### 2 4323-8 ####[facility] [id number] [place] [address] [place] ECG COMPLETEon 11-09-2023 ECG COMPLETE Normal [facility] NURSING PROGon 11-09-2023 NURSING PROG Normal [facility] PT EDon 11-09-2023 PT ED Normal [facility] PT panel Coag (PPP)on 2023 INR Coag (PPP) [Relative time] 1.7 {INR} High 0.9-1.3 [facility] Comment on above: Order Comment: Speci men Type: BLOOD SPECIMENOrdering Facility: [facility] Address: [address] [place] [address] Result Comment: Jesusita min K Antagonist (VKA) Therapeutic Range: INR 2 to 3 (Target INR of 2.5)Note: For patients treated with VKA drugs, such as warfarin, the [place] [employer] 2012 Guideline recommends a therapeutic INR range of 2 to 3 (target INR of 2.5). This recommendation includes high-risk patients with antiphospholipid syndrome with previous arterial or venous thromboembolism, current-generation mechanical or bioprosthetic aortic heart valve replacement.Note: Patients with mechanical aortic valve replacement and additional risk factors for thromboembolic events (atrial fibrillation, previous thromboembolism, LV dysfunction, hypercoagulable conditions) or an older generation mechanical AVR (i.e., ball in-Cage) or any mechanical MVR should have a INR therapeutic range of 2.5 to 3.5 (target INR of 3).Kristie GH, et al. Chest 2012, 141:7S-47SNishimura RA, et al. [facility] 2017, 70: 252-289 Performed By: #### 3 4528-0 ####[facility] [id number] [place] [address] [place] PT Coag (PPP) [Time] 17.5 s High 9.7-13.0 [facility] Comment on above: Order Comment: Speci men Type: BLOOD SPECIMENOrdering Facility: [facility] Address: [address] [place] [address] Performed By: #### 3 4528-0 ####[facility] LABCLIA [id number] [place] [address] [place] THERAPY NTon 11-09-2023 THERAPY NT Normal [facility] ALLIED HEALTHon 11-08-2023 ALLIED HEALTH Normal [facility] CASE MGT INIT ASSESon 2023 CASE MGT INIT ASSES Normal [facility] CBC panel Auto (Bld)on 11-07 Erythrocyte distribution width (RBC) [Ratio] 13.6 % Normal 11.5-15.0 [facility] Comment on above: Order Comment: Speci men Type: BLOOD SPECIMENOrdering Facility: [facility] Address: [address] [place] [address] Performed By: #### 5 8410-2 ####[facility] LABCLIA [id number] [place] [address] [place] Hematocrit (Bld) [Volume fraction] 27.2 % Low 36.0-46.0 [facility] Comment on above: Order Comment: Speci men Type: BLOOD SPECIMENOrdering Facility: [facility] Address: [address] [place] [address] Performed By: #### 5 8410-2 ####[facility] LABCLIA [id number] [place] [address] [place] Hemoglobin (Bld) [Mass/Vol] 8.9 g/dL Low 11.5-15.5 [facility] Comment on above: Order Comment: Speci men Type: BLOOD SPECIMENOrdering Facility: [facility] Address: [address] [place] [address] Performed By: #### 5 8410-2 ####[facility] LABCLIA [id number] [place] [address] [place] MCH (RBC) [Entitic mass] 27.5 pg Normal 26.0-34.0 [facility] Comment on above: Order Comment: Speci men Type: BLOOD SPECIMENOrdering Facility: [facility] Address: [address] [place] [address] Performed By: #### 5 8410-2 ####[facility] LABCLIA [id number] [place] [address] [place] MCHC (RBC) [Mass/Vol] 32.7 g/dL Normal 30.5-36.0 [facility] Comment on above: Order Comment: Speci men Type: BLOOD SPECIMENOrdering Facility: [facility] Address: [address] [place] [address] Performed By: #### 5 8410-2 ####[facility] LABIA [id number] [place] [address] [place] MCV (RBC) [Entitic vol] 84.0 fL Normal 80.0-100.0 [facility] Comment on above: Order Comment: Speci men Type: BLOOD SPECIMENOrdering Facility: [facility] Address: [address] [place] [address] Performed By: #### 5 8410-2 ####[facility] LABIA [id number] [place] [address] [place] Nucleated RBC (Bld) [#/Vol] 10*3/uL Normal <0.01 [facility] Comment on above: Order Comment: Speci men Type: BLOOD SPECIMENOrdering Facility: [facility] Address: [address] [place] [address] Performed By: #### 5 8410-2 ####[facility] LABIA [id number] [place] [address] [place] Platelet mean volume (Bld) [Entitic vol] 10.4 fL Normal 9.0-12.7 [facility] Comment on above: Order Comment: Speci men Type: BLOOD SPECIMENOrdering Facility: [facility] Address: [address] [place] [address] Performed By: #### 5 8410-2 ####[facility] LABIA [id number] [place] [address] [place] Platelets (Bld) [#/Vol] 126 10*3/uL Low 150-400 [facility] Comment on above: Order Comment: Speci men Type: BLOOD SPECIMENOrdering Facility: [facility] Address: [address] [place] [address] Performed By: #### 5 8410-2 ####[facility] LABIA [id number] [place] [address] [place] RBC (Bld) [#/Vol] 3.24 10*6/uL Low 3.90-5.20 [facility] Comment on above: Order Comment: Speci men Type: BLOOD SPECIMENOrdering Facility: [facility] Address: [address] [place] [address] Performed By: #### 5 8410-2 ####[facility] [id number] [place] [address] [place] WBC (Bld) [#/Vol] 10.06 10*3/uL Normal 3.70-11.00 [facility] Comment on above: Order Comment: Speci men Type: BLOOD SPECIMENOrdering Facility: [facility] Address: [address] [place] [address] Performed By: #### 5 8410-2 ####[facility] [id number] [place] [id number] [place] CNDSon 11-08-2023 CNDS Normal [facility] Comprehensive metabolic 2000 panelon 11-08-2023 Albumin [Mass/Vol] 3.2 g/dL Low 3.9-4.9 [facility] Comment on above: Order Comment: Speci men Type: BLOOD SPECIMENOrdering Facility: [facility] Address: [address] [place] [address] Performed By: #### 2 4323-8 ####[facility] LABCLIA [id number] [place] [id number] [place] ALP [Catalytic activity/Vol] 72 U/L Normal 34-123 [facility] Comment on above: Order Comment: Speci men Type: BLOOD SPECIMENOrdering Facility: [facility] Address: [address] [place] [address] Performed By: #### 2 4323-8 ####[facility] LABCLIA [id number] [place] [address] [place] ALT [Catalytic activity/Vol] 9 U/L Normal 7-38 [facility] Comment on above: Order Comment: Speci men Type: BLOOD SPECIMENOrdering Facility: [facility] Address: [address] [place] [address] Performed By: #### 2 4323-8 ####[facility] LABCLIA [id number] [place] [address] [place] Anion gap [Moles/Vol] 12 mmol/L Normal 8-15 [facility] Comment on above: Order Comment: Speci men Type: BLOOD SPECIMENOrdering Facility: [facility] Address: [address] [place] [address] Performed By: #### 2 4323-8 ####[facility] LABCLIA [id number] [place] [address] [place] AST [Catalytic activity/Vol] 16 U/L Normal 13-35 [facility] Comment on above: Order Comment: Speci men Type: BLOOD SPECIMENOrdering Facility: [facility] Address: [address] [place], [place] [address] Performed By: #### 2 4323-8 ####[facility] LABCLIA [id number] [place] [phone] [place] Bilirubin [Mass/Vol] 0.5 mg/dL Normal 0.2-1.3 [facility] Comment on above: Order Comment: Speci men Type: BLOOD SPECIMENOrdering Facility: [facility] Address: [address] [place], [place] [address] Performed By: #### 2 4323-8 ####[facility] LABCLIA [id number] [address] [address] [place] Calcium [Mass/Vol] 8.7 mg/dL Normal 8.5-10.2 [facility] Comment on above: Order Comment: Speci men Type: BLOOD SPECIMENOrdering Facility: [facility] Address: [address] [place] [address] Performed By: #### 2 4323-8 ####[facility] LABCLIA [id number] [place] [address] [place] Chloride [Moles/Vol] 97 mmol/L Low 98-107 [facility] Comment on above: Order Comment: Speci men Type: BLOOD SPECIMENOrdering Facility: [facility] Address: [address] [place] [address] Performed By: #### 2 4323-8 ####[facility] LABCLIA [id number] [place] [address] [place] CO2 [Moles/Vol] 26 mmol/L Normal 22-30 [facility] Comment on above: Order Comment: Speci men Type: BLOOD SPECIMENOrdering Facility: [facility] Address: [address] [place], [place] [address] Performed By: #### 2 4323-8 ####[facility] LABCLIA [id number] [place] [phone] [place] Creatinine [Mass/Vol] 0.70 mg/dL Normal 0.58-0.96 [facility] Comment on above: Order Comment: Speci men Type: BLOOD SPECIMENOrdering Facility: [facility] Address: [address] [place], [place] [address] Performed By: #### 2 4323-8 ####[facility] LABCLIA [id number] [place] [address] [place] Creatinine and Glomerular filtration rate.predicted panel (S/P/Bld) 106 mL/min/1.73m??? Normal >=60 [facility] Comment on above: Order Comment: Elgin lyons Type: BLOOD SPECIMENOrdering Facility: [facility] Address: [address] [place] [address] Result Comment: Yani mated Glomerular Filtration Rate (eGFR) is calculated using the 2020 CKD-EPI creatinine equation. This equation utilizes serum creatinine, sex, and age as parameters. The creatinine assay has traceable calibration to isotope dilution-mass spectrometry. Refer to KDIGO guidelines for clinical interpretation. In patients with unstable renal function, e.g. those with acute kidney injury, the eGFR may not accurately reflect actual GFR. Performed By: #### 2 4323-8 ####[facility] LABIA [id number] [place] [address] [place] Glucose [Mass/Vol] 101 mg/dL High 74-99 [facility] Comment on above: Order Comment: Elgin lyons Type: BLOOD SPECIMENOrdering Facility: [facility] Address: [address] [place] [address] Result Comment: The [place] Diabetes Association (ADA) provides guidance for cutoff values for fasting glucose and random glucose. The ADA defines fasting as no caloric intake for at least 8 hours. Fasting plasma glucose results between 100 to 125 mg/dL indicate increased risk for diabetes (prediabetes).Fasting plasma glucose results greater than or equal to 126 mg/dL meet the criteria for diagnosis of diabetes. In the absence of unequivocal hyperglycemia, results should be confirmed by repeat testing. In a patient with classic symptoms of hyperglycemia or hyperglycemic crisis, random plasma glucose results greater than or equal to 200 mg/dL meet the criteria for diagnosis of diabetes.Reference: Standards of Medical Care in Diabetes 2016, [place] Diabetes Association. Diabetes Care. 2016.39(Suppl 1). Performed By: #### 2 4323-8 ####[facility] LABIA [id number] [place] [address] [place] Potassium [Moles/Vol] 3.5 mmol/L Low 3.7-5.1 [facility] Comment on above: Order Comment: Speci men Type: BLOOD SPECIMENOrdering Facility: [facility] Address: [address] [place] [address] Performed By: #### 2 4323-8 ####[facility] LABCLIA [id number] [place] [address] [place] Protein [Mass/Vol] 5.9 g/dL Low 6.3-8.0 [facility] Comment on above: Order Comment: Speci men Type: BLOOD SPECIMENOrdering Facility: [facility] Address: [address] [place] [address] Performed By: #### 2 4323-8 ####[facility] LABCLIA [id number] [place] [address] [place] Sodium [Moles/Vol] 135 mmol/L Low 136-144 [facility] Comment on above: Order Comment: Speci men Type: BLOOD SPECIMENOrdering Facility: [facility] Address: [address] [place], [place] [address] Performed By: #### 2 4323-8 ####[facility] LABCLIA [id number] [place] [address] [place] Urea nitrogen [Mass/Vol] 13 mg/dL Normal 7-21 [facility] Comment on above: Order Comment: Speci men Type: BLOOD SPECIMENOrdering Facility: [facility] Address: [address] [place] [address] Performed By: #### 2 4323-8 ####[facility] LABCLIA [id number] [place] [id number] [place] ECG COMPLETEon 11-08-2023 ECG COMPLETE Normal [facility] ECG COMPLETE Normal [facility] [id number] 11-08-2023 ECG01 Normal [facility] NURSING PROGon 11-08-2023 NURSING PROG Normal [facility] PT panel Coag (PPP)on 2023 INR Coag (PPP) [Relative time] 1.5 {INR} High 0.9-1.3 [facility] Comment on above: Order Comment: Elgin lyons Type: BLOOD SPECIMENOrdering Facility: [facility] Address: [address] [place] [address] Result Comment: Jesusita min K Antagonist (VKA) Therapeutic Range: INR 2 to 3 (Target INR of 2.5)Note: For patients treated with VKA drugs, such as warfarin, the [employer] [employer] 2012 Guideline recommends a therapeutic INR range of 2 to 3 (target INR of 2.5). This recommendation includes high-risk patients with antiphospholipid syndrome with previous arterial or venous thromboembolism, current-generation mechanical or bioprosthetic aortic heart valve replacement.Note: Patients with mechanical aortic valve replacement and additional risk factors for thromboembolic events (atrial fibrillation, previous thromboembolism, LV dysfunction, hypercoagulable conditions) or an older generation mechanical AVR (i.e., ball in-Cage) or any mechanical MVR should have a INR therapeutic range of 2.5 to 3.5 (target INR of 3).Kristie GH, et al. Chest 2012, 141:7S-47SNishimura RA, et al. [facility] 2017, 70: 252-289 Performed By: #### 3 4528-0 ####[facility] LABIA [id number] [place] [address] [place] PT Coag (PPP) [Time] 15.1 s High 9.7-13.0 [facility] Comment on above: Order Comment: Eglin lyons Type: BLOOD SPECIMENOrdering Facility: [facility] Address: [address] [place] [id number] Performed By: #### 3 4528-0 ####[facility] LABIA [id number] [place] [address] [place] THERAPY NTon 11-08-2023 THERAPY NT Normal [facility] THERAPY NT Normal [facility] THERAPY NT Normal [facility] XR CHEST 1V FRONTAL PORTon 0 8-19-2024 XR CHEST 1V FRONTAL PORT Normal [facility] ARTERIAL BLOOD GASESon 11-06 Base excess Calc (Bld) [Moles/Vol] 0 mmol/L Normal 0-2 [facility] Comment on above: Order Comment: Speci men Type: ARTERIAL BLOOD SPECIMENOrdering Facility: [facility] Address: [address] [place] [address] Performed By: #### A LLBG ####[facility] LABCLIA [id number] [place] [address] [place] Body temperature 98.6 [degF] Normal [facility] Comment on above: Order Comment: Speci men Type: ARTERIAL BLOOD SPECIMENOrdering Facility: [facility] Address: [address] [place] [address] Performed By: #### A LLBG ####[facility] LABIA [id number] [place] [address] [place] Calcium.ionized (Bld) [Mass/Vol] 1.23 mmol/L Normal 1.08-1.30 [facility] Comment on above: Order Comment: Speci men Type: ARTERIAL BLOOD SPECIMENOrdering Facility: [facility] Address: [address] [place] [address] Performed By: #### A LLBG ####[facility] LABIA [id number] [place] [address] [place] Calcium.ionized adjusted to pH 7.4 (BldA) [Moles/Vol] 1.20 mmol/L Normal 1.08-1.30 [facility] Comment on above: Order Comment: Speci men Type: ARTERIAL BLOOD SPECIMENOrdering Facility: [facility] [facility] Address: [address] [place] [address] Performed By: #### A LLBG ####[facility] LABIA [id number] [place] [address] [place] Carboxyhemoglobin (BldA) [Mass fraction] 1.6 % Normal 0.0-2.0 [facility] Comment on above: Order Comment: Speci men Type: ARTERIAL BLOOD SPECIMENOrdering Facility: [facility] Address: [address] [place] [address] Result Comment: Carb oxyhemoglobin Reference Range for Smokers: 2.0-8.0% Performed By: #### A LLBG ####[facility] LABCLIA [id number] [place] [address] [place] CO2 (Bld) [Partial pressure] 45 mm Hg Normal 36-46 [facility] Comment on above: Order Comment: Speci men Type: ARTERIAL BLOOD SPECIMENOrdering Facility: [facility] Address: [address] [place] [address] Performed By: #### A LLBG ####[facility] LABCLIA [id number] [place] [address] [place] Glucose [Mass/Vol] 115 mg/dL High 60-105 [facility] Comment on above: Order Comment: Speci men Type: ARTERIAL BLOOD SPECIMENOrdering Facility: [facility] Address: [address] [place] [address] Performed By: #### A LLBG ####[facility] LABCLIA [id number] [place] [address] [place] HCO3 (Bld) [Moles/Vol] 25 mmol/L Normal 22-26 [facility] Comment on above: Order Comment: Speci men Type: ARTERIAL BLOOD SPECIMENOrdering Facility: [facility] Address: [address] [place] [address] Performed By: #### A LLBG ####[facility] LABCLIA [id number] [place] [address] [place] Hematocrit (Bld) [Volume fraction] 29.7 % Low 36.0-46.0 [facility] Comment on above: Order Comment: Speci men Type: ARTERIAL BLOOD SPECIMENOrdering Facility: [facility] Address: [address], [place] [address] Performed By: #### A LLBG ####[facility] LABIA [id number] [place] [address] [place] Hemoglobin (Bld) [Mass/Vol] 9.6 g/dL Low 11.5-15.5 [facility] Comment on above: Order Comment: Speci men Type: ARTERIAL BLOOD SPECIMENOrdering Facility: [facility] Address: [address] [place] [address] Performed By: #### A LLBG ####[facility] LABIA [id number] [place] [address] [place] Lactate [Moles/Vol] 0.6 mmol/L Normal 0.5-2.2 [facility] Comment on above: Order Comment: Speci men Type: ARTERIAL BLOOD SPECIMENOrdering Facility: [facility] Address: [address] [place] [address] Performed By: #### A LLBG ####[facility]IA [id number] [place] [address] [place] Methemoglobin (Bld) [Mass fraction] 1.4 % Normal 0.0-1.5 [facility] Comment on above: Order Comment: Speci men Type: ARTERIAL BLOOD SPECIMENOrdering Facility: [facility] Address: [address] [place] [address] Performed By: #### A LLBG ####[facility]IA [id number] [place] [address] [place] O2 THERAPY NC = Nasal Cannula Normal [facility] Comment on above: Order Comment: Speci men Type: ARTERIAL BLOOD SPECIMENOrdering Facility: [facility] Address: [address] [place] [address] Performed By: #### A LLBG ####[facility] LABIA [id number] [place] [address] [place] Oxygen (Bld) [Partial pressure] 105 mm Hg High 85-95 [facility] Comment on above: Order Comment: Speci men Type: ARTERIAL BLOOD SPECIMENOrdering Facility: [facility] Address: [address] [place] [address] Performed By: #### A LLBG ####[facility] LABCLIA [id number] [place] [address] [place] Oxyhemoglobin (BldA) [Mass fraction] 95 % Normal 95-98 [facility] Comment on above: Order Comment: Speci men Type: ARTERIAL BLOOD SPECIMENOrdering Facility: [facility] Address: [address] [place] [address] Performed By: #### A LLBG ####[facility]IA [id number] [place] [address] [place] pH (Bld) 7.35 [pH] Normal 7.35-7.45 [facility] Comment on above: Order Comment: Speci men Type: ARTERIAL BLOOD SPECIMENOrdering Facility: [facility] Address: [address] [place] [address] Performed By: #### A LLBG ####[facility]IA [id number] [place] [address] [place] Potassium [Moles/Vol] 4.1 mmol/L Normal 3.5-5.0 [facility] Comment on above: Order Comment: Speci men Type: ARTERIAL BLOOD SPECIMENOrdering Facility: [facility] Address: [address] [place] [address] Performed By: #### A LLBG ####[facility] LABCLIA [id number] [place] [address] [place] Sodium [Moles/Vol] 130 mmol/L Low 136-144 [facility] Comment on above: Order Comment: Speci men Type: ARTERIAL BLOOD SPECIMENOrdering Facility: [facility] Address: [address] [place] [address] Performed By: #### A LLBG ####[facility] LABCLIA [id number] [place] [address] [place] Base excess Calc (Bld) [Moles/Vol] 1 mmol/L Normal 0-2 [facility] Comment on above: Order Comment: Speci men Type: ARTERIAL BLOOD SPECIMENOrdering Facility: [facility] Address: [address] [place] [address] Performed By: #### A LLBG ####[facility]IA [id number] [place] [address] [place] Body temperature 98.6 [degF] Normal [facility] Comment on above: Order Comment: Speci men Type: ARTERIAL BLOOD SPECIMENOrdering Facility: [facility] Address: [address] [place] [address] Performed By: #### A LLBG ####[facility] LABIA [id number] [place] [address] [place] Calcium.ionized (Bld) [Mass/Vol] 1.22 mmol/L Normal 1.08-1.30 [facility] Comment on above: Order Comment: Speci men Type: ARTERIAL BLOOD SPECIMENOrdering Facility: [facility] Address: [address] [place] [address] Performed By: #### A LLBG ####[facility]IA [id number] [place] [address] [place] Calcium.ionized adjusted to pH 7.4 (BldA) [Moles/Vol] 1.21 mmol/L Normal 1.08-1.30 [facility] Comment on above: Order Comment: Speci men Type: ARTERIAL BLOOD SPECIMENOrdering Facility: [facility] Address: [address] [place] [address] Performed By: #### A LLBG ####[facility]IA [id number] [place] [address] [place] Carboxyhemoglobin (BldA) [Mass fraction] 1.1 % Normal 0.0-2.0 [facility] Comment on above: Order Comment: Speci men Type: ARTERIAL BLOOD SPECIMENOrdering Facility: [facility] Address: [address] [place] [address] Result Comment: Carb oxyhemoglobin Reference Range for Smokers: 2.0-8.0% Performed By: #### A LLBG ####[facility] LABCLIA [id number] [place] [address] [place] CO2 (Bld) [Partial pressure] 44 mm Hg Normal 36-46 [facility] Comment on above: Order Comment: Speci men Type: ARTERIAL BLOOD SPECIMENOrdering Facility: [facility] Address: [address] [place] [address] Performed By: #### A LLBG ####[facility] LABCLIA [id number] [place] [address] [place] Glucose [Mass/Vol] 119 mg/dL High 60-105 [facility] Comment on above: Order Comment: Speci men Type: ARTERIAL BLOOD SPECIMENOrdering Facility: [facility] Address: [address] [place] [address] Performed By: #### A LLBG ####[facility] LABCLIA [id number] [place] [address] [place] HCO3 (Bld) [Moles/Vol] 25 mmol/L Normal 22-26 [facility] Comment on above: Order Comment: Speci men Type: ARTERIAL BLOOD SPECIMENOrdering Facility: [facility] Address: [address] [place] [address] Performed By: #### A LLBG ####[facility] LABCLIA [id number] [place] [address] [place] Hematocrit (Bld) [Volume fraction] 30.1 % Low 36.0-46.0 [facility] Comment on above: Order Comment: Speci men Type: ARTERIAL BLOOD SPECIMENOrdering Facility: [facility] Address: [address] [place] [address] Performed By: #### A LLBG ####[facility] LABCLIA [id number] [place] [address] [place] Hemoglobin (Bld) [Mass/Vol] 9.7 g/dL Low 11.5-15.5 [facility] Comment on above: Order Comment: Speci men Type: ARTERIAL BLOOD SPECIMENOrdering Facility: [facility] Address: [address] [place] [address] Performed By: #### A LLBG ####[facility] LABCLIA [id number] [place] [address] [place] Lactate [Moles/Vol] 0.9 mmol/L Normal 0.5-2.2 [facility] Comment on above: Order Comment: Speci men Type: ARTERIAL BLOOD SPECIMENOrdering Facility: [facility] Address: [address] [place] [address] Performed By: #### A LLBG ####[facility] LABCLIA [id number] [place] [address] [place] LITERS 1 Liters/min Normal [facility] Comment on above: Order Comment: Speci men Type: ARTERIAL BLOOD SPECIMENOrdering Facility: [facility] Address: [address] [place] [address] Performed By: #### A LLBG ####[facility] LABCLIA [id number] [place] [address] [place] Methemoglobin (Bld) [Mass fraction] 0.8 % Normal 0.0-1.5 [facility] Comment on above: Order Comment: Speci men Type: ARTERIAL BLOOD SPECIMENOrdering Facility: [facility] Address: [address] [place] [address] Performed By: #### A LLBG ####[facility] LABCLIA [id number] [place] [address] [place] O2 THERAPY NC = Nasal Cannula Normal [facility] Comment on above: Order Comment: Speci men Type: ARTERIAL BLOOD SPECIMENOrdering Facility: [facility] Address: [address] [place] [address] Performed By: #### A LLBG ####[facility] LABCLIA [id number] [address] [address] [place] Oxygen (Bld) [Partial pressure] 123 mm Hg High 85-95 [facility] Comment on above: Order Comment: Speci men Type: ARTERIAL BLOOD SPECIMENOrdering Facility: [facility] Address: [address] [place] [address] Performed By: #### A LLBG ####[facility] LABCLIA [id number] [place] [address] [place] Oxyhemoglobin (BldA) [Mass fraction] 97 % Normal 95-98 [facility] Comment on above: Order Comment: Speci men Type: ARTERIAL BLOOD SPECIMENOrdering Facility: [facility] Address: [address] [place] [address] Performed By: #### A LLBG ####[facility] LABCLIA [id number] [place] [address] [place] pH (Bld) 7.38 [pH] Normal 7.35-7.45 [facility] Comment on above: Order Comment: Speci men Type: ARTERIAL BLOOD SPECIMENOrdering Facility: [facility] Address: [address] [place] [address] Performed By: #### A LLBG ####[facility] LABCLIA [id number] [place] [address] [place] Potassium [Moles/Vol] 4.4 mmol/L Normal 3.5-5.0 [facility] Comment on above: Order Comment: Speci men Type: ARTERIAL BLOOD SPECIMENOrdering Facility: [facility] Address: [address] [place] [address] Performed By: #### A LLBG ####[facility] LABCLIA [id number] [place] [address] [place] Sodium [Moles/Vol] 130 mmol/L Low 136-144 [facility] Comment on above: Order Comment: Speci men Type: ARTERIAL BLOOD SPECIMENOrdering Facility: [facility] Address: [address] [place] [address] Performed By: #### A LLBG ####[facility] LABCLIA [id number] [place] [address] [place] CBC panel Auto (Bld)on 11-06 Erythrocyte distribution width (RBC) [Ratio] 13.5 % Normal 11.5-15.0 [facility] Comment on above: Order Comment: Speci men Type: BLOOD SPECIMENOrdering Facility: [facility] Address: [address] [place] [address] Performed By: #### 5 8410-2 ####[facility] LABIA [id number] [place] [address] [place] Hematocrit (Bld) [Volume fraction] 28.4 % Low 36.0-46.0 [facility] Comment on above: Order Comment: Speci men Type: BLOOD SPECIMENOrdering Facility: [facility] Address: [address] [place] [address] Performed By: #### 5 8410-2 ####[facility] LABIA [id number] [place] [address] [place] Hemoglobin (Bld) [Mass/Vol] 9.6 g/dL Low 11.5-15.5 [facility] Comment on above: Order Comment: Speci men Type: BLOOD SPECIMENOrdering Facility: [facility] Address: [address] [place] [address] Performed By: #### 5 8410-2 ####[facility] LABIA [id number] [place] [address] [place] MCH (RBC) [Entitic mass] 27.9 pg Normal 26.0-34.0 [facility] Comment on above: Order Comment: Speci men Type: BLOOD SPECIMENOrdering Facility: [facility] Address: [address] [place] [address] Performed By: #### 5 8410-2 ####[facility] LABCLIA [id number] [place] [address] [place] MCHC (RBC) [Mass/Vol] 33.8 g/dL Normal 30.5-36.0 [facility] Comment on above: Order Comment: Speci men Type: BLOOD SPECIMENOrdering Facility: [facility] Address: [address] [place] [address] Performed By: #### 5 8410-2 ####[facility] LABCLIA [id number] [place] [address] [place] MCV (RBC) [Entitic vol] 82.6 fL Normal 80.0-100.0 [facility] Comment on above: Order Comment: Speci men Type: BLOOD SPECIMENOrdering Facility: [facility] Address: [address] [place] [address] Performed By: #### 5 8410-2 ####[facility]IA [id number] [place] [address] [place] Nucleated RBC (Bld) [#/Vol] 10*3/uL Normal <0.01 [facility] Comment on above: Order Comment: Speci men Type: BLOOD SPECIMENOrdering Facility: [facility] Address: [address] [place] [address] Performed By: #### 5 8410-2 ####[facility] LABCLIA [id number] [place] [address] [place] Platelet mean volume (Bld) [Entitic vol] 9.9 fL Normal 9.0-12.7 [facility] Comment on above: Order Comment: Speci men Type: BLOOD SPECIMENOrdering Facility: [facility] Address: [address] [place] [address] Performed By: #### 5 8410-2 ####[facility] LABCLIA [id number] [place] [address] [place] Platelets (Bld) [#/Vol] 162 10*3/uL Normal 150-400 [facility] Comment on above: Order Comment: Speci men Type: BLOOD SPECIMENOrdering Facility: [facility] Address: [address] [place] [address] Performed By: #### 5 8410-2 ####[facility]IA [id number] [place] [address] [place] RBC (Bld) [#/Vol] 3.44 10*6/uL Low 3.90-5.20 [facility] Comment on above: Order Comment: Speci men Type: BLOOD SPECIMENOrdering Facility: [facility] Address: [address] [place] [address] Performed By: #### 5 8410-2 ####[facility] [id number] [place] [address] [place] WBC (Bld) [#/Vol] 18.14 10*3/uL High 3.70-11.00 [facility] Comment on above: Order Comment: Speci men Type: BLOOD SPECIMENOrdering Facility: [facility] Address: [address] [place] [address] Performed By: #### 5 8410-2 ####[facility] LABIA [id number] [place] [id number] [place] Comprehensive metabolic 2000 panelon 11-07-2023 Albumin [Mass/Vol] 3.3 g/dL Low 3.9-4.9 [facility] Comment on above: Order Comment: Speci men Type: BLOOD SPECIMENOrdering Facility: [facility] Address: [address] [place] [address] Performed By: #### 2 432-8, ####[facility] LABCLIA [id number] [place] [address] [place] ALP [Catalytic activity/Vol] 61 U/L Normal 34-123 [facility] Comment on above: Order Comment: Speci men Type: BLOOD SPECIMENOrdering Facility: [facility] Address: [address] [place] [address] Performed By: #### 2 432-8, ####[facility] LABCLIA [id number] [place] [address] [place] ALT [Catalytic activity/Vol] 7 U/L Normal 7-38 [facility] Comment on above: Order Comment: Speci men Type: BLOOD SPECIMENOrdering Facility: [facility] Address: [address] [place] [address] Performed By: #### 2 8, ####[facility] LABCLIA [id number] [place] [address] [place] Anion gap [Moles/Vol] 9 mmol/L Normal 8-15 [facility] Comment on above: Order Comment: Speci men Type: BLOOD SPECIMENOrdering Facility: [facility] Address: [address] [place] [address] Performed By: #### 2 432-8, ####[facility] LABCLIA [id number] [place] [address] [place] AST [Catalytic activity/Vol] 18 U/L Normal 13-35 [facility] Comment on above: Order Comment: Speci men Type: BLOOD SPECIMENOrdering Facility: [facility] Address: [address] [place] [address] Performed By: #### 2 4323-8, ####[facility] LABCLIA [id number] [place] [id number] [place] Bilirubin [Mass/Vol] 0.6 mg/dL Normal 0.2-1.3 [facility] Comment on above: Order Comment: Speci men Type: BLOOD SPECIMENOrdering Facility: [facility] Address: [address] [place] [address] Performed By: #### 2 4323-8, ####[facility] LABCLIA [id number] [place] [address] [place] Calcium [Mass/Vol] 8.7 mg/dL Normal 8.5-10.2 [facility] Comment on above: Order Comment: Speci men Type: BLOOD SPECIMENOrdering Facility: [facility] Address: [address] [place] [address] Performed By: #### 2 432-8, ####[facility] LABCLIA [id number] [place] [address] [place] Chloride [Moles/Vol] 97 mmol/L Low 98-107 [facility] Comment on above: Order Comment: Speci men Type: BLOOD SPECIMENOrdering Facility: [facility] Address: [address] [place] [address] Performed By: #### 2 8, ####[facility] LABCLIA [id number] [place] [address] [place] CO2 [Moles/Vol] 23 mmol/L Normal 22-30 [facility] Comment on above: Order Comment: Speci men Type: BLOOD SPECIMENOrdering Facility: [facility] Address: [address] [place] [address] Performed By: #### 2 4322-8, ####[facility] LABCLIA [id number] [place] [id number] [place] Creatinine [Mass/Vol] 0.90 mg/dL Normal 0.58-0.96 [facility] Comment on above: Order Comment: Speci men Type: BLOOD SPECIMENOrdering Facility: [facility] Address: [address] [place] [id number] Performed By: #### 2 4323-8, ####[facility] [id number] [place] [id number] [place] Creatinine and Glomerular filtration rate.predicted panel (S/P/Bld) 79 mL/min/1.73m??? Normal >=60 [facility] Comment on above: Order Comment: Speci men Type: BLOOD SPECIMENOrdering Facility: [facility] Address: [address] [place] [address] Result Comment: Yani mated Glomerular Filtration Rate (eGFR) is calculated using the 2020 CKD-EPI creatinine equation. This equation utilizes serum creatinine, sex, and age as parameters. The creatinine assay has traceable calibration to isotope dilution-mass spectrometry. Refer to KDIGO guidelines for clinical interpretation. In patients with unstable renal function, e.g. those with acute kidney injury, the eGFR may not accurately reflect actual GFR. Performed By: #### 2 4323-8, ####[facility]IA [id number] [place] [id number] [place] Glucose [Mass/Vol] 118 mg/dL High 74-99 [facility] Comment on above: Order Comment: [place] eloy Type: BLOOD SPECIMENOrdering Facility: [facility] Address: [address] [place] [address] Result Comment: The [place] Diabetes Association (ADA) provides guidance for cutoff values for fasting glucose and random glucose. The ADA defines fasting as no caloric intake for at least 8 hours. Fasting plasma glucose results between 100 to 125 mg/dL indicate increased risk for diabetes (prediabetes).Fasting plasma glucose results greater than or equal to 126 mg/dL meet the criteria for diagnosis of diabetes. In the absence of unequivocal hyperglycemia, results should be confirmed by repeat testing. In a patient with classic symptoms of hyperglycemia or hyperglycemic crisis, random plasma glucose results greater than or equal to 200 mg/dL meet the criteria for diagnosis of diabetes.Reference: Standards of Medical Care in Diabetes 2016, [place] [employer]. Diabetes Care. 2016.39(Suppl 1). Performed By: #### 2 432-8, ####[facility] LABCLIA [id number] [address] [address] [place] Potassium [Moles/Vol] 4.8 mmol/L Normal 3.7-5.1 [facility] Comment on above: Order Comment: Speci men Type: BLOOD SPECIMENOrdering Facility: [facility] Address: [address] [place] [address] Performed By: #### 2 43205-27, ####[facility] LABCLIA [id number] [place] [address] [place] Protein [Mass/Vol] 5.8 g/dL Low 6.3-8.0 [facility] Comment on above: Order Comment: Speci men Type: BLOOD SPECIMENOrdering Facility: [facility] Address: [address] [place] [address] Performed By: #### 2 4322-10, ####[facility] LABCLIA [id number] [place] [address] [place] Sodium [Moles/Vol] 129 mmol/L Low 136-144 [facility] Comment on above: Order Comment: Speci men Type: BLOOD SPECIMENOrdering Facility: [facility] Address: [address] [place] [address] Performed By: #### 2 4322-10, ####[facility] LABCLIA [id number] [address] [address] [place] Urea nitrogen [Mass/Vol] 18 mg/dL Normal 7-21 [facility] Comment on above: Order Comment: Speci men Type: BLOOD SPECIMENOrdering Facility: [facility] Address: [address] [place], [place] [id number] Performed By: #### 2 4323-, ####[facility] LABCLIA [id number] [place] [address] [place] Magnesium SerPl-mCncon 11-06 Magnesium [Mass/Vol] 2.2 mg/dL Normal 1.7-2.3 [facility] Comment on above: Order Comment: Speci men Type: BLOOD SPECIMENOrdering Facility: [facility] [facility] Address: [address] [place] [address] Performed By: #### 2 4323-8, 23580-8 ####[facility]IA [id number] [place] [address] [place] PT panel Coag (PPP)on 2023 INR Coag (PPP) [Relative time] 1.3 {INR} Normal 0.9-1.3 [facility] Comment on above: Order Comment: Specgema lyons Type: BLOOD SPECIMENOrdering Facility: [facility] Address: [address] [place] [address] Result Comment: Jesusita min K Antagonist (VKA) Therapeutic Range: INR 2 to 3 (Target INR of 2.5)Note: For patients treated with VKA drugs, such as warfarin, the [employer] 2012 Guideline recommends a therapeutic INR range of 2 to 3 (target INR of 2.5). This recommendation includes high-risk patients with antiphospholipid syndrome with previous arterial or venous thromboembolism, current-generation mechanical or bioprosthetic aortic heart valve replacement.Note: Patients with mechanical aortic valve replacement and additional risk factors for thromboembolic events (atrial fibrillation, previous thromboembolism, LV dysfunction, hypercoagulable conditions) or an older generation mechanical AVR (i.e., ball in-Cage) or any mechanical MVR should have a INR therapeutic range of 2.5 to 3.5 (target INR of 3).Kristie GH, et al. Chest 2012, 141:7S-47SNishimura RA, et al. JAC 2017, 70: 252-289 Performed By: #### 3 4528-0 ####[facility] [id number] [address] [place] PT Coag (PPP) [Time] 13.9 s High 9.7-13.0 [facility] Comment on above: Order Comment: Speci men Type: BLOOD SPECIMENOrdering Facility: [facility] Address: [address] [place] [address] Performed By: #### 3 4528-0 ####[facility] LABCLIA [id number] [place] [address] [place] XR CHEST 1V FRONTAL PORTon 0 11-07-2023 XR CHEST 1V FRONTAL PORT Normal [facility] ARTERIAL BLOOD GASESon 11-05 Base excess Calc (Bld) [Moles/Vol] 0 mmol/L Normal 0-2 [facility] Comment on above: Order Comment: Speci men Type: ARTERIAL BLOOD SPECIMENOrdering Facility: [facility] Address: [address] [place] [address] Performed By: #### A LLBG ####[facility] LABCLIA [id number] [place] [address] [place] Body temperature 98.6 [degF] Normal [facility] Comment on above: Order Comment: Speci men Type: ARTERIAL BLOOD SPECIMENOrdering Facility: [facility] Address: [address] [place] [address] Performed By: #### A LLBG ####[facility] LABCLIA [id number] [place] [address] [place] Calcium.ionized (Bld) [Mass/Vol] 1.22 mmol/L Normal 1.08-1.30 [facility] Comment on above: Order Comment: Speci men Type: ARTERIAL BLOOD SPECIMENOrdering Facility: [facility] Address: [address] [place] [address] Performed By: #### A LLBG ####[facility] LABCLIA [id number] [place] [address] [place] Calcium.ionized adjusted to pH 7.4 (BldA) [Moles/Vol] 1.20 mmol/L Normal 1.08-1.30 [facility] Comment on above: Order Comment: Speci men Type: ARTERIAL BLOOD SPECIMENOrdering Facility: [facility] Address: [address] [place] [address] Performed By: #### A LLBG ####[facility]CLIA [id number] [place] [address] [place] Carboxyhemoglobin (BldA) [Mass fraction] 1.9 % Normal 0.0-2.0 [facility] Comment on above: Order Comment: Speci men Type: ARTERIAL BLOOD SPECIMENOrdering Facility: [facility] Address: [address] [place] [address] Result Comment: Carb oxyhemoglobin Reference Range for Smokers: 2.0-8.0% Performed By: #### A LLBG ####[facility] LABCLIA [id number] [place] [address] [place] CO2 (Bld) [Partial pressure] 44 mm Hg Normal 36-46 [facility] Comment on above: Order Comment: Speci men Type: ARTERIAL BLOOD SPECIMENOrdering Facility: [facility] Address: [address] [place] [address] Performed By: #### A LLBG ####[facility]CLIA [id number] [place] [address] [place] Glucose [Mass/Vol] 127 mg/dL High 60-105 [facility] Comment on above: Order Comment: Speci men Type: ARTERIAL BLOOD SPECIMENOrdering Facility: [facility] Address: [address] [place] [address] Performed By: #### A LLBG ####[facility]CLIA [id number] [place] [address] [place] HCO3 (Bld) [Moles/Vol] 25 mmol/L Normal 22-26 [facility] Comment on above: Order Comment: Speci men Type: ARTERIAL BLOOD SPECIMENOrdering Facility: [facility] Address: [address] [place] [address] Performed By: #### A LLBG ####[facility]CLIA [id number] [place] [address] [place] Hematocrit (Bld) [Volume fraction] 30.1 % Low 36.0-46.0 [facility] Comment on above: Order Comment: Speci men Type: ARTERIAL BLOOD SPECIMENOrdering Facility: [facility] Address: [address] [place] [address] Performed By: #### A LLBG ####[facility]CLIA [id number] [place] [address] [place] Hemoglobin (Bld) [Mass/Vol] 9.7 g/dL Low 11.5-15.5 [facility] Comment on above: Order Comment: Speci men Type: ARTERIAL BLOOD SPECIMENOrdering Facility: [facility] Address: [address] [place] [address] Performed By: #### A LLBG ####[facility]CLIA [id number] [place] [address] [place] Lactate [Moles/Vol] 0.6 mmol/L Normal 0.5-2.2 [facility] Comment on above: Order Comment: Speci men Type: ARTERIAL BLOOD SPECIMENOrdering Facility: [facility] Address: [address] [place] [address] Performed By: #### A LLBG ####[facility]CLIA [id number] [place] [address] [place] LITERS 1 Liters/min Normal [facility] Comment on above: Order Comment: Speci men Type: ARTERIAL BLOOD SPECIMENOrdering Facility: [facility] Address: [address] [place] [address] Performed By: #### A LLBG ####[facility]CLIA [id number] [place] [address] [place] Methemoglobin (Bld) [Mass fraction] 0.7 % Normal 0.0-1.5 [facility] Comment on above: Order Comment: Speci men Type: ARTERIAL BLOOD SPECIMENOrdering Facility: [facility] Address: [address] [place] [address] Performed By: #### A LLBG ####[facility]CLIA [id number] [place] [address] [place] O2 THERAPY NC = Nasal Cannula Normal [facility] Comment on above: Order Comment: Speci men Type: ARTERIAL BLOOD SPECIMENOrdering Facility: [facility] Address: [address] [place] [address] Performed By: #### A LLBG ####[facility]CLIA [id number] [place] [address] [place] Oxygen (Bld) [Partial pressure] 110 mm Hg High 85-95 [facility] Comment on above: Order Comment: Speci men Type: ARTERIAL BLOOD SPECIMENOrdering Facility: [facility] Address: [address] [place] [address] Performed By: #### A LLBG ####[facility]CLIA [id number] [place] [address] [place] Oxyhemoglobin (BldA) [Mass fraction] 96 % Normal 95-98 [facility] Comment on above: Order Comment: Speci men Type: ARTERIAL BLOOD SPECIMENOrdering Facility: [facility] Address: [address] [place] [address] Performed By: #### A LLBG ####[facility]CLIA [id number] [place] [address] [place] pH (Bld) 7.37 [pH] Normal 7.35-7.45 [facility] Comment on above: Order Comment: Speci men Type: ARTERIAL BLOOD SPECIMENOrdering Facility: [facility] Address: [address] [place] [address] Performed By: #### A LLBG ####[facility]CLIA [id number] [place] [address] [place] Potassium [Moles/Vol] 4.6 mmol/L Normal 3.5-5.0 [facility] Comment on above: Order Comment: Speci men Type: ARTERIAL BLOOD SPECIMENOrdering Facility: [facility] Address: [address] [place] [address] Performed By: #### A LLBG ####[facility] [id number] [place] [address] [place] Sodium [Moles/Vol] 128 mmol/L Low 136-144 [facility] Comment on above: Order Comment: Speci men Type: ARTERIAL BLOOD SPECIMENOrdering Facility: [facility] Address: [address] [place] [address] Performed By: #### A LLBG ####[facility] [id number] [place] [address] [place] Base deficit (BldA) [Moles/Vol] -1 mmol/L Normal -2-0 [facility] Comment on above: Order Comment: Speci men Type: ARTERIAL BLOOD SPECIMENOrdering Facility: [facility] Address: [address] [place] [address] Performed By: #### A LLBG ####[facility] [id number] [place] [address] [place] Body temperature 98.6 [degF] Normal [facility] Comment on above: Order Comment: Speci men Type: ARTERIAL BLOOD SPECIMENOrdering Facility: [facility] Address: [address] [place] [address] Performed By: #### A LLBG ####[facility] [id number] [place] [address] [place] Calcium.ionized (Bld) [Mass/Vol] 1.21 mmol/L Normal 1.08-1.30 [facility] Comment on above: Order Comment: Speci men Type: ARTERIAL BLOOD SPECIMENOrdering Facility: [facility] Address: [address] [place] [address] Performed By: #### A LLBG ####[facility] LABCLIA [id number] [place] [address] [place] Calcium.ionized adjusted to pH 7.4 (BldA) [Moles/Vol] 1.18 mmol/L Normal 1.08-1.30 [facility] Comment on above: Order Comment: Speci men Type: ARTERIAL BLOOD SPECIMENOrdering Facility: [facility] Address: [address] [place] [address] Performed By: #### A LLBG ####[facility] [id number] [place] [address] [place] Carboxyhemoglobin (BldA) [Mass fraction] 1.7 % Normal 0.0-2.0 [facility] Comment on above: Order Comment: Speci men Type: ARTERIAL BLOOD SPECIMENOrdering Facility: [facility] Address: [address] [place] [address] Result Comment: Carb oxyhemoglobin Reference Range for Smokers: 2.0-8.0% Performed By: #### A LLBG ####[facility] [id number] [place] [address] [place] CO2 (Bld) [Partial pressure] 44 mm Hg Normal 36-46 [facility] Comment on above: Order Comment: Speci men Type: ARTERIAL BLOOD SPECIMENOrdering Facility: [facility] Address: [address] [place] [address] Performed By: #### A LLBG ####[facility] [id number] [place] [address] [place] Glucose [Mass/Vol] 139 mg/dL High 60-105 [facility] Comment on above: Order Comment: Speci men Type: ARTERIAL BLOOD SPECIMENOrdering Facility: [facility] Address: [address] [place] [address] Performed By: #### A LLBG ####[facility] LABCLIA [id number] [place] [address] [place] HCO3 (Bld) [Moles/Vol] 24 mmol/L Normal 22-26 [facility] Comment on above: Order Comment: Speci men Type: ARTERIAL BLOOD SPECIMENOrdering Facility: [facility] Address: [address] [place] [address] Performed By: #### A LLBG ####[facility]CLIA [id number] [place] [address] [place] Hematocrit (Bld) [Volume fraction] 32.5 % Low 36.0-46.0 [facility] Comment on above: Order Comment: Speci men Type: ARTERIAL BLOOD SPECIMENOrdering Facility: [facility] Address: [address] [place] [address] Performed By: #### A LLBG ####[facility]CLIA [id number] [place] [address] [place] Hemoglobin (Bld) [Mass/Vol] 10.5 g/dL Low 11.5-15.5 [facility] Comment on above: Order Comment: Speci men Type: ARTERIAL BLOOD SPECIMENOrdering Facility: [facility] Address: [address] [place] [address] Performed By: #### A LLBG ####[facility] LABCLIA [id number] [place] [address] [place] Lactate [Moles/Vol] 0.9 mmol/L Normal 0.5-2.2 [facility] Comment on above: Order Comment: Speci men Type: ARTERIAL BLOOD SPECIMENOrdering Facility: [facility] Address: [address] [place] [address] Performed By: #### A LLBG ####[facility]CLIA [id number] [address] [place] LITERS 1 Liters/min Normal [facility] Comment on above: Order Comment: Speci men Type: ARTERIAL BLOOD SPECIMENOrdering Facility: [facility] Address: [address] [place] [address] Performed By: #### A LLBG ####[facility]CLIA [id number] [place] [address] [place] Methemoglobin (Bld) [Mass fraction] 0.5 % Normal 0.0-1.5 [facility] Comment on above: Order Comment: Speci men Type: ARTERIAL BLOOD SPECIMENOrdering Facility: [facility] Address: [address] [place] [address] Performed By: #### A LLBG ####[facility]CLIA [id number] [place] [address] [place] O2 THERAPY NC = Nasal Cannula Normal [facility] Comment on above: Order Comment: Speci men Type: ARTERIAL BLOOD SPECIMENOrdering Facility: [facility] Address: [address] [place] [address] Performed By: #### A LLBG ####[facility]CLIA [id number] [place] [address] [place] Oxygen (Bld) [Partial pressure] 139 mm Hg High 85-95 [facility] Comment on above: Order Comment: Speci men Type: ARTERIAL BLOOD SPECIMENOrdering Facility: [facility] Address: [address] [place] [address] Performed By: #### A LLBG ####[facility]CLIA [id number] [place] [address] [place] Oxyhemoglobin (BldA) [Mass fraction] 97 % Normal 95-98 [facility] Comment on above: Order Comment: Speci men Type: ARTERIAL BLOOD SPECIMENOrdering Facility: [facility] Address: [address] [place] [address] Performed By: #### A LLBG ####[facility]CLIA [id number] [place] [address] [place] pH (Bld) 7.36 [pH] Normal 7.35-7.45 [facility] Comment on above: Order Comment: Speci men Type: ARTERIAL BLOOD SPECIMENOrdering Facility: [facility] Address: [address] [place] [address] Performed By: #### A LLBG ####[facility]CLIA [id number] [place] [address] [place] Potassium [Moles/Vol] 4.4 mmol/L Normal 3.5-5.0 [facility] Comment on above: Order Comment: Speci men Type: ARTERIAL BLOOD SPECIMENOrdering Facility: [facility] Address: [address] [place] [address] Performed By: #### A LLBG ####[facility] LABCLIA [id number] [place] [address] [place] Sodium [Moles/Vol] 129 mmol/L Low 136-144 [facility] Comment on above: Order Comment: Speci men Type: ARTERIAL BLOOD SPECIMENOrdering Facility: [facility] Address: [address] [place] [address] Performed By: #### A LLBG ####[facility] LABCLIA [id number] [place] [address] [place] Base excess Calc (Bld) [Moles/Vol] 0 mmol/L Normal 0-2 [facility] Comment on above: Order Comment: Speci men Type: ARTERIAL BLOOD SPECIMENOrdering Facility: [facility] Address: [address] [place] [address] Performed By: #### A LLBG ####[facility] LABCLIA [id number] [place] [address] [place] Body temperature 98.6 [degF] Normal [facility] Comment on above: Order Comment: Speci men Type: ARTERIAL BLOOD SPECIMENOrdering Facility: [facility] Address: [address] [place] [address] Performed By: #### A LLBG ####[facility] [id number] [place] [address] [place] Calcium.ionized (Bld) [Mass/Vol] 1.22 mmol/L Normal 1.08-1.30 [facility] Comment on above: Order Comment: Speci men Type: ARTERIAL BLOOD SPECIMENOrdering Facility: [facility] Address: [address] [place] [address] Performed By: #### A LLBG ####[facility] [id number] [place] [address] [place] Calcium.ionized adjusted to pH 7.4 (BldA) [Moles/Vol] 1.20 mmol/L Normal 1.08-1.30 [facility] Comment on above: Order Comment: Speci men Type: ARTERIAL BLOOD SPECIMENOrdering Facility: [facility] Address: [address] [place] [address] Performed By: #### A LLBG ####[facility] [id number] [place] [address] [place] Carboxyhemoglobin (BldA) [Mass fraction] 1.5 % Normal 0.0-2.0 [facility] Comment on above: Order Comment: Speci men Type: ARTERIAL BLOOD SPECIMENOrdering Facility: [facility] Address: [address] [place] [address] Result Comment: Carb oxyhemoglobin Reference Range for Smokers: 2.0-8.0% Performed By: #### A LLBG ####[facility] [id number] [place] [address] [place] CO2 (Bld) [Partial pressure] 43 mm Hg Normal 36-46 [facility] Comment on above: Order Comment: Speci men Type: ARTERIAL BLOOD SPECIMENOrdering Facility: [facility] Address: [address] [place] [address] Performed By: #### A LLBG ####[facility] LABCLIA [id number] [place] [address] [place] Glucose [Mass/Vol] 136 mg/dL High 60-105 [facility] Comment on above: Order Comment: Speci men Type: ARTERIAL BLOOD SPECIMENOrdering Facility: [facility] Address: [address] [place] [address] Performed By: #### A LLBG ####[facility]CLIA [id number] [place] [address] [place] HCO3 (Bld) [Moles/Vol] 24 mmol/L Normal 22-26 [facility] Comment on above: Order Comment: Speci men Type: ARTERIAL BLOOD SPECIMENOrdering Facility: [facility] Address: [address] [place] [address] Performed By: #### A LLBG ####[facility]CLIA [id number] [place] [address] [place] Hematocrit (Bld) [Volume fraction] 32.4 % Low 36.0-46.0 [facility] Comment on above: Order Comment: Speci men Type: ARTERIAL BLOOD SPECIMENOrdering Facility: [facility] Address: [address] [place] [address] Performed By: #### A LLBG ####[facility]CLIA [id number] [place] [address] [place] Hemoglobin (Bld) [Mass/Vol] 10.5 g/dL Low 11.5-15.5 [facility] Comment on above: Order Comment: Speci men Type: ARTERIAL BLOOD SPECIMENOrdering Facility: [facility] Address: [address] [place] [address] Performed By: #### A LLBG ####[facility] LABCLIA [id number] [address] [id number] [address] [place] Lactate [Moles/Vol] 0.8 mmol/L Normal 0.5-2.2 [facility] Comment on above: Order Comment: Speci men Type: ARTERIAL BLOOD SPECIMENOrdering Facility: [facility] Address: [address] [place] [address] Performed By: #### A LLBG ####[facility]CLIA [id number] [place] [address] [place] LITERS 2 Liters/min Normal [facility] Comment on above: Order Comment: Speci men Type: ARTERIAL BLOOD SPECIMENOrdering Facility: [facility] Address: [address] [place] [address] Performed By: #### A LLBG ####[facility]CLIA [id number] [place] [address] [place] Methemoglobin (Bld) [Mass fraction] 0.9 % Normal 0.0-1.5 [facility] Comment on above: Order Comment: Speci men Type: ARTERIAL BLOOD SPECIMENOrdering Facility: [facility] Address: [address] [place] [address] Performed By: #### A LLBG ####[facility]CLIA [id number] [place] [address] [place] O2 THERAPY NC = Nasal Cannula Normal [facility] Comment on above: Order Comment: Speci men Type: ARTERIAL BLOOD SPECIMENOrdering Facility: [facility] Address: [address] [place] [address] Performed By: #### A LLBG ####[facility]CL[facility] [id number] [place] [address] [place] Oxygen (Bld) [Partial pressure] 85 mm Hg Normal 85-95 [facility] Comment on above: Order Comment: Speci men Type: ARTERIAL BLOOD SPECIMENOrdering Facility: [facility] Address: [address] [place] [address] Performed By: #### A LLBG ####[facility]CL[facility] [id number] [place] [address] [place] Oxyhemoglobin (BldA) [Mass fraction] 95 % Normal 95-98 [facility] Comment on above: Order Comment: Speci men Type: ARTERIAL BLOOD SPECIMENOrdering Facility: [facility] Address: [address] [place] [address] Performed By: #### A LLBG ####[facility]CL[facility] [id number] [place] [address] [place] pH (Bld) 7.37 [pH] Normal 7.35-7.45 [facility] Comment on above: Order Comment: Speci men Type: ARTERIAL BLOOD SPECIMENOrdering Facility: [facility] Address: [address] [place] [address] Performed By: #### A LLBG ####[facility]CL[facility] [id number] [place] [address] [place] Potassium [Moles/Vol] 4.3 mmol/L Normal 3.5-5.0 [facility] Comment on above: Order Comment: Speci men Type: ARTERIAL BLOOD SPECIMENOrdering Facility: [facility] Address: [address] [place] [address] Performed By: #### A LLBG ####[facility] [id number] [place] [address] [place] Sodium [Moles/Vol] 131 mmol/L Low 136-144 [facility] Comment on above: Order Comment: Speci men Type: ARTERIAL BLOOD SPECIMENOrdering Facility: [facility] Address: [address] [place] [address] Performed By: #### A LLBG ####[facility]CLIA [id number] [place] [address] [place] Base deficit (BldA) [Moles/Vol] -1 mmol/L Normal -2-0 [facility] Comment on above: Order Comment: Speci men Type: ARTERIAL BLOOD SPECIMENOrdering Facility: [facility] Address: [address] [place] [address] Performed By: #### A LLBG ####[facility] [id number] [place] [address] [place] Body temperature 98.6 [degF] Normal [facility] Comment on above: Order Comment: Speci men Type: ARTERIAL BLOOD SPECIMENOrdering Facility: [facility] Address: [address] [place] [address] Performed By: #### A LLBG ####[facility] LABIA [id number] [place] [address] [place] Calcium.ionized (Bld) [Mass/Vol] 1.19 mmol/L Normal 1.08-1.30 [facility] Comment on above: Order Comment: Speci men Type: ARTERIAL BLOOD SPECIMENOrdering Facility: [facility] Address: [address] [place] [address] Performed By: #### A LLBG ####[facility] LABIA [id number] [place] [address] [place] Calcium.ionized adjusted to pH 7.4 (BldA) [Moles/Vol] 1.16 mmol/L Normal 1.08-1.30 [facility] Comment on above: Order Comment: Speci men Type: ARTERIAL BLOOD SPECIMENOrdering Facility: [facility] Address: [address] [place] [address] Performed By: #### A LLBG ####[facility]IA [id number] [place] [address] [place] Carboxyhemoglobin (BldA) [Mass fraction] 1.2 % Normal 0.0-2.0 [facility] Comment on above: Order Comment: Speci men Type: ARTERIAL BLOOD SPECIMENOrdering Facility: [facility] Address: [address] [place] [address] Result Comment: Carb oxyhemoglobin Reference Range for Smokers: 2.0-8.0% Performed By: #### A LLBG ####[facility] LABCLIA [id number] [place] [address] [place] CO2 (Bld) [Partial pressure] 44 mm Hg Normal 36-46 [facility] Comment on above: Order Comment: Speci men Type: ARTERIAL BLOOD SPECIMENOrdering Facility: [facility] Address: [address] [place] [address] Performed By: #### A LLBG ####[facility] LABCLIA [id number] [place] [address] [place] Glucose [Mass/Vol] 129 mg/dL High 60-105 [facility] Comment on above: Order Comment: Speci men Type: ARTERIAL BLOOD SPECIMENOrdering Facility: [facility] Address: [address] [place] [address] Performed By: #### A LLBG ####[facility] LABCLIA [id number] [place] [address] [place] HCO3 (Bld) [Moles/Vol] 24 mmol/L Normal 22-26 [facility] Comment on above: Order Comment: Speci men Type: ARTERIAL BLOOD SPECIMENOrdering Facility: [facility] Address: [address] [place] [address] Performed By: #### A LLBG ####[facility] LABCLIA [id number] [place] [address] [place] Hematocrit (Bld) [Volume fraction] 33.1 % Low 36.0-46.0 [facility] Comment on above: Order Comment: Speci men Type: ARTERIAL BLOOD SPECIMENOrdering Facility: [facility] Address: [address] [place] [address] Performed By: #### A LLBG ####[facility] LABCLIA [id number] [place] [address] [place] Hemoglobin (Bld) [Mass/Vol] 10.7 g/dL Low 11.5-15.5 [facility] Comment on above: Order Comment: Speci men Type: ARTERIAL BLOOD SPECIMENOrdering Facility: [facility] Address: [address] [place] [address] Performed By: #### A LLBG ####[facility] LABCLIA [id number] [place] [address] [place] Lactate [Moles/Vol] 0.7 mmol/L Normal 0.5-2.2 [facility] Comment on above: Order Comment: Speci men Type: ARTERIAL BLOOD SPECIMENOrdering Facility: [facility] Address: [address] [place] [address] Performed By: #### A LLBG ####[facility] LABCLIA [id number] [place] [address] [place] LITERS 2 Liters/min Normal [facility] Comment on above: Order Comment: Speci men Type: ARTERIAL BLOOD SPECIMENOrdering Facility: [facility] Address: [address] [place] [address] Performed By: #### A LLBG ####[facility] LABCLIA [id number] [place] [address] [place] Methemoglobin (Bld) [Mass fraction] 1.4 % Normal 0.0-1.5 [facility] Comment on above: Order Comment: Speci men Type: ARTERIAL BLOOD SPECIMENOrdering Facility: [facility] Address: [address] [place] [address] Performed By: #### A LLBG ####[facility] LABCLIA [id number] [place] [address] [place] O2 THERAPY NC = Nasal Cannula Normal [facility] Comment on above: Order Comment: Speci men Type: ARTERIAL BLOOD SPECIMENOrdering Facility: [facility] Address: [address] [place] [address] Performed By: #### A LLBG ####[facility] LABCLIA [id number] [place] [address] [place] Oxygen (Bld) [Partial pressure] 95 mm Hg Normal 85-95 [facility] Comment on above: Order Comment: Speci men Type: ARTERIAL BLOOD SPECIMENOrdering Facility: [facility] Address: [address] [place] [address] Performed By: #### A LLBG ####[facility] LABCLIA [id number] [place] [address] [place] Oxyhemoglobin (BldA) [Mass fraction] 95 % Normal 95-98 [facility] Comment on above: Order Comment: Speci men Type: ARTERIAL BLOOD SPECIMENOrdering Facility: [facility] Address: [address] [place] [address] Performed By: #### A LLBG ####[facility] LABCLIA [id number] [place] [address] [place] pH (Bld) 7.36 [pH] Normal 7.35-7.45 [facility] Comment on above: Order Comment: Speci men Type: ARTERIAL BLOOD SPECIMENOrdering Facility: [facility] Address: [address] [place] [address] Performed By: #### A LLBG ####[facility] LABCLIA [id number] [place] [address] [place] Potassium [Moles/Vol] 4.2 mmol/L Normal 3.5-5.0 [facility] Comment on above: Order Comment: Speci men Type: ARTERIAL BLOOD SPECIMENOrdering Facility: [facility] Address: [address] [place] [address] Performed By: #### A LLBG ####[facility] LABCLIA [id number] [place] [address] [place] Sodium [Moles/Vol] 133 mmol/L Low 136-144 [facility] Comment on above: Order Comment: Speci men Type: ARTERIAL BLOOD SPECIMENOrdering Facility: [facility] Address: [address] [place] [address] Performed By: #### A LLBG ####[facility] LABCLIA [id number] [place] [address] [place] Base deficit (BldA) [Moles/Vol] -1 mmol/L Normal -2-0 [facility] Comment on above: Order Comment: Speci men Type: ARTERIAL BLOOD SPECIMENOrdering Facility: [facility] Address: [address] [place] [address] Performed By: #### A LLBG ####[facility]IA [id number] [place] [address] [place] Body temperature 99.5 [degF] Normal [facility] Comment on above: Order Comment: Speci men Type: ARTERIAL BLOOD SPECIMENOrdering Facility: [facility] Address: [address] [place] [address] Performed By: #### A LLBG ####[facility] LABCLIA [id number] [place] [address] [place] Calcium.ionized (Bld) [Mass/Vol] 1.20 mmol/L Normal 1.08-1.30 [facility] Comment on above: Order Comment: Speci men Type: ARTERIAL BLOOD SPECIMENOrdering Facility: [facility] Address: [address] [place] [address] Performed By: #### A LLBG ####[facility] LABCLIA [id number] [place] [address] [place] Calcium.ionized adjusted to pH 7.4 (BldA) [Moles/Vol] 1.18 mmol/L Normal 1.08-1.30 [facility] Comment on above: Order Comment: Speci men Type: ARTERIAL BLOOD SPECIMENOrdering Facility: [facility] Address: [address] [place] [address] Performed By: #### A LLBG ####[facility] LABCLIA [id number] [place] [address] [place] Carboxyhemoglobin (BldA) [Mass fraction] 1.3 % Normal 0.0-2.0 [facility] Comment on above: Order Comment: Speci men Type: ARTERIAL BLOOD SPECIMENOrdering Facility: [facility] Address: [address] [place] [address] Result Comment: Carb oxyhemoglobin Reference Range for Smokers: 2.0-8.0% Performed By: #### A LLBG ####[facility] LABCLIA [id number] [place] [address] [place] CO2 (Bld) [Partial pressure] 41 mm Hg Normal 36-46 [facility] Comment on above: Order Comment: Speci men Type: ARTERIAL BLOOD SPECIMENOrdering Facility: [facility] Address: [address] [place] [address] Performed By: #### A LLBG ####[facility] LABCLIA [id number] [place] [address] [place] CO2 adjusted to patient's actual temperature (Bld) [Partial pressure] 42 mmHg Normal 36-46 [facility] Comment on above: Order Comment: Speci men Type: ARTERIAL BLOOD SPECIMENOrdering Facility: [facility] Address: [address] [place] [address] Performed By: #### A LLBG ####[facility] LABCLIA [id number] [place] [address] [place] Glucose [Mass/Vol] 144 mg/dL High 60-105 [facility] Comment on above: Order Comment: Speci men Type: ARTERIAL BLOOD SPECIMENOrdering Facility: [facility] Address: [address] [place] [address] Performed By: #### A LLBG ####[facility] LABCLIA [id number] [place] [address] [place] HCO3 (Bld) [Moles/Vol] 23 mmol/L Normal 22-26 [facility] Comment on above: Order Comment: Speci men Type: ARTERIAL BLOOD SPECIMENOrdering Facility: [facility] Address: [address] [place] [address] Performed By: #### A LLBG ####[facility] LABCLIA [id number] [place] [address] [place] Hematocrit (Bld) [Volume fraction] 36.1 % Normal 36.0-46.0 [facility] Comment on above: Order Comment: Speci men Type: ARTERIAL BLOOD SPECIMENOrdering Facility: [facility] Address: [address] [place] [address] Performed By: #### A LLBG ####[facility] LABCLIA [id number] [place] [address] [place] Hemoglobin (Bld) [Mass/Vol] 11.7 g/dL Normal 11.5-15.5 [facility] Comment on above: Order Comment: Speci men Type: ARTERIAL BLOOD SPECIMENOrdering Facility: [facility] Address: [address] [place] [address] Performed By: #### A LLBG ####[facility] LABCLIA [id number] [place] [address] [place] Lactate [Moles/Vol] 1.3 mmol/L Normal 0.5-2.2 [facility] Comment on above: Order Comment: Speci men Type: ARTERIAL BLOOD SPECIMENOrdering Facility: [facility] Address: [address] [place] [address] Performed By: #### A LLBG ####[facility] LABCLIA [id number] [place] [address] [place] LITERS 2 Liters/min Normal [facility] Comment on above: Order Comment: Speci men Type: ARTERIAL BLOOD SPECIMENOrdering Facility: [facility] Address: [address], [place] [address] Performed By: #### A LLBG ####[facility] LABCLIA [id number] [address] [address] [place] Methemoglobin (Bld) [Mass fraction] 1.1 % Normal 0.0-1.5 [facility] Comment on above: Order Comment: Speci men Type: ARTERIAL BLOOD SPECIMENOrdering Facility: [facility] Address: [address] [place] [id number] Performed By: #### A LLBG ####[facility] LABCLIA [id number] [address] [address] [place] O2 THERAPY NC = Nasal Cannula Normal [facility] Comment on above: Order Comment: Speci men Type: ARTERIAL BLOOD SPECIMENOrdering Facility: [facility] Address: [address] [place], [place] [address] Performed By: #### A LLBG ####[facility] LABCLIA [id number] [place] [id number] [place] Oxygen (Bld) [Partial pressure] 135 mm Hg High 85-95 [facility] Comment on above: Order Comment: Speci men Type: ARTERIAL BLOOD SPECIMENOrdering Facility: [facility] Address: [address] [place], [place] [address] Performed By: #### A LLBG ####[facility] LABCLIA [id number] [place] [id number] [place] Oxygen adjusted to patient's actual temperature (Bld) [Partial pressure] 138 mmHg High 85-95 [facility] Comment on above: Order Comment: Speci men Type: ARTERIAL BLOOD SPECIMENOrdering Facility: [facility] Address: [address] [place] [address] Performed By: #### A LLBG ####[facility] LABCLIA [id number] [address] [address] [place] Oxyhemoglobin (BldA) [Mass fraction] 97 % Normal 95-98 [facility] Comment on above: Order Comment: Speci men Type: ARTERIAL BLOOD SPECIMENOrdering Facility: [facility] Address: [address] [place] [address] Performed By: #### A LLBG ####[facility] LABCLIA [id number] [place] [address] [place] pH (Bld) 7.37 [pH] Normal 7.35-7.45 [facility] Comment on above: Order Comment: Speci men Type: ARTERIAL BLOOD SPECIMENOrdering Facility: [facility] Address: [address] [place] [address] Performed By: #### A LLBG ####[facility] LABCLIA [id number] [place] [address] [place] pH adjusted to patient's actual temperature (Bld) 7.36 Normal 7.35-7.45 [facility] Comment on above: Order Comment: Speci men Type: ARTERIAL BLOOD SPECIMENOrdering Facility: [facility] Address: [address] [place] [address] Performed By: #### A LLBG ####[facility] LABCLIA [id number] [place] [address] [place] Potassium [Moles/Vol] 4.4 mmol/L Normal 3.5-5.0 [facility] Comment on above: Order Comment: Speci men Type: ARTERIAL BLOOD SPECIMENOrdering Facility: [facility] Address: [address] [place] [address] Performed By: #### A LLBG ####[facility] LABCLIA [id number] [place] [address] [place] Sodium [Moles/Vol] 132 mmol/L Low 136-144 [facility] Comment on above: Order Comment: Speci men Type: ARTERIAL BLOOD SPECIMENOrdering Facility: [facility] Address: [address] [place] [address] Performed By: #### A LLBG ####[facility] LABCLIA [id number] [place] [address] [place] Base deficit (BldA) [Moles/Vol] -2 mmol/L Normal -2-0 [facility] Comment on above: Order Comment: Speci men Type: ARTERIAL BLOOD SPECIMENOrdering Facility: [facility] Address: [address] [place] [address] Performed By: #### A LLBG ####[facility] LABIA [id number] [place] [address] [place] Body temperature 98.6 [degF] Normal [facility] Comment on above: Order Comment: Speci men Type: ARTERIAL BLOOD SPECIMENOrdering Facility: [facility] Address: [address] [place] [address] Performed By: #### A LLBG ####[facility] [id number] [place] [address] [place] Calcium.ionized (Bld) [Mass/Vol] 1.18 mmol/L Normal 1.08-1.30 [facility] Comment on above: Order Comment: Speci men Type: ARTERIAL BLOOD SPECIMENOrdering Facility: [facility] Address: [address] [place] [address] Performed By: #### A LLBG ####[facility] [id number] [place] [address] [place] Calcium.ionized adjusted to pH 7.4 (BldA) [Moles/Vol] 1.16 mmol/L Normal 1.08-1.30 [facility] Comment on above: Order Comment: Speci men Type: ARTERIAL BLOOD SPECIMENOrdering Facility: [facility] Address: [address] [place] [address] Performed By: #### A LLBG ####[facility] LABIA [id number] [place] [address] [place] Carboxyhemoglobin (BldA) [Mass fraction] 1.6 % Normal 0.0-2.0 [facility] Comment on above: Order Comment: Speci men Type: ARTERIAL BLOOD SPECIMENOrdering Facility: [facility] Address: [address] [place] [address] Result Comment: Carb oxyhemoglobin Reference Range for Smokers: 2.0-8.0% Performed By: #### A LLBG ####[facility] LABCLIA [id number] [place] [address] [place] CO2 (Bld) [Partial pressure] 41 mm Hg Normal 36-46 [facility] Comment on above: Order Comment: Speci men Type: ARTERIAL BLOOD SPECIMENOrdering Facility: [facility] Address: [address] [place] [address] Performed By: #### A LLBG ####[facility] LABCLIA [id number] [place] [address] [place] Glucose [Mass/Vol] 168 mg/dL High 60-105 [facility] Comment on above: Order Comment: Speci men Type: ARTERIAL BLOOD SPECIMENOrdering Facility: [facility] Address: [address] [place] [address] Performed By: #### A LLBG ####[facility] LABCLIA [id number] [place] [address] [place] HCO3 (Bld) [Moles/Vol] 23 mmol/L Normal 22-26 [facility] Comment on above: Order Comment: Speci men Type: ARTERIAL BLOOD SPECIMENOrdering Facility: [facility] Address: [address] [place] [address] Performed By: #### A LLBG ####[facility] LABCLIA [id number] [place] [address] [place] Hematocrit (Bld) [Volume fraction] 33.5 % Low 36.0-46.0 [facility] Comment on above: Order Comment: Speci men Type: ARTERIAL BLOOD SPECIMENOrdering Facility: [facility] Address: [address] [place] [address] Performed By: #### A LLBG ####[facility] LABCLIA [id number] [place] [address] [place] Hemoglobin (Bld) [Mass/Vol] 10.9 g/dL Low 11.5-15.5 [facility] Comment on above: Order Comment: Speci men Type: ARTERIAL BLOOD SPECIMENOrdering Facility: [facility] Address: [address] [place] [address] Performed By: #### A LLBG ####[facility] LABCLIA [id number] [place] [address] [place] Lactate [Moles/Vol] 1.4 mmol/L Normal 0.5-2.2 [facility] Comment on above: Order Comment: Speci men Type: ARTERIAL BLOOD SPECIMENOrdering Facility: [facility] Address: [address] [place] [address] Performed By: #### A LLBG ####[facility] LABCLIA [id number] [place] [address] [place] LITERS 2 Liters/min Normal [facility] Comment on above: Order Comment: Speci men Type: ARTERIAL BLOOD SPECIMENOrdering Facility: [facility] Address: [address] [place] [address] Performed By: #### A LLBG ####[facility] LABCLIA [id number] [place] [address] [place] Methemoglobin (Bld) [Mass fraction] 0.7 % Normal 0.0-1.5 [facility] Comment on above: Order Comment: Speci men Type: ARTERIAL BLOOD SPECIMENOrdering Facility: [facility] Address: [address] [place] [address] Performed By: #### A LLBG ####[facility] LABCLIA [id number] [address] [address] [place] O2 THERAPY NC = Nasal Cannula Normal [facility] Comment on above: Order Comment: Speci men Type: ARTERIAL BLOOD SPECIMENOrdering Facility: [facility] Address: [address] [place] [address] Performed By: #### A LLBG ####[facility] LABCLIA [id number] [place] [address] [place] Oxygen (Bld) [Partial pressure] 133 mm Hg High 85-95 [facility] Comment on above: Order Comment: Speci men Type: ARTERIAL BLOOD SPECIMENOrdering Facility: [facility] Address: [address] [place] [address] Performed By: #### A LLBG ####[facility] LABCLIA [id number] [place] [address] [place] Oxyhemoglobin (BldA) [Mass fraction] 97 % Normal 95-98 [facility] Comment on above: Order Comment: Speci men Type: ARTERIAL BLOOD SPECIMENOrdering Facility: [facility] Address: [address] [place] [address] Performed By: #### A LLBG ####[facility] LABCLIA [id number] [place] [address] [place] pH (Bld) 7.36 [pH] Normal 7.35-7.45 [facility] Comment on above: Order Comment: Speci men Type: ARTERIAL BLOOD SPECIMENOrdering Facility: [facility] Address: [address] [place] [address] Performed By: #### A LLBG ####[facility] LABCLIA [id number] [place] [address] [place] Potassium [Moles/Vol] 4.4 mmol/L Normal 3.5-5.0 [facility] Comment on above: Order Comment: Speci men Type: ARTERIAL BLOOD SPECIMENOrdering Facility: [facility] Address: [address] [place] [address] Performed By: #### A LLBG ####[facility] LABCLIA [id number] [place] [address] [place] Sodium [Moles/Vol] 133 mmol/L Low 136-144 [facility] Comment on above: Order Comment: Speci men Type: ARTERIAL BLOOD SPECIMENOrdering Facility: [facility] Address: [address] [place] [address] Performed By: #### A LLBG ####[facility] LABCLIA [id number] [place] [address] [place] Base deficit (BldA) [Moles/Vol] -1 mmol/L Normal -2-0 [facility] Comment on above: Order Comment: Speci men Type: ARTERIAL BLOOD SPECIMENOrdering Facility: [facility] Address: [address] [place] [address] Performed By: #### A LLBG ####[facility] LABIA [id number] [place] [address] [place] Body temperature 98.6 [degF] Normal [facility] Comment on above: Order Comment: Speci men Type: ARTERIAL BLOOD SPECIMENOrdering Facility: [facility] Address: [address] [place] [address] Performed By: #### A LLBG ####[facility]IA [id number] [place] [address] [place] Calcium.ionized (Bld) [Mass/Vol] 1.21 mmol/L Normal 1.08-1.30 [facility] Comment on above: Order Comment: Speci men Type: ARTERIAL BLOOD SPECIMENOrdering Facility: [facility] Address: [address] [place] [address] Performed By: #### A LLBG ####[facility] LABCLIA [id number] [place] [address] [place] Calcium.ionized adjusted to pH 7.4 (BldA) [Moles/Vol] 1.18 mmol/L Normal 1.08-1.30 [facility] Comment on above: Order Comment: Speci men Type: ARTERIAL BLOOD SPECIMENOrdering Facility: [facility] Address: [address] [place] [address] Performed By: #### A LLBG ####[facility] LABCLIA [id number] [place] [address] [place] Carboxyhemoglobin (BldA) [Mass fraction] 1.6 % Normal 0.0-2.0 [facility] Comment on above: Order Comment: Speci men Type: ARTERIAL BLOOD SPECIMENOrdering Facility: [facility] Address: [address] [place] [address] Result Comment: Carb oxyhemoglobin Reference Range for Smokers: 2.0-8.0% Performed By: #### A LLBG ####[facility] LABCLIA [id number] [place] [address] [place] CO2 (Bld) [Partial pressure] 46 mm Hg Normal 36-46 [facility] Comment on above: Order Comment: Speci men Type: ARTERIAL BLOOD SPECIMENOrdering Facility: [facility] Address: [address] [place] [address] Performed By: #### A LLBG ####[facility] LABCLIA [id number] [place] [address] [place] Glucose [Mass/Vol] 144 mg/dL High 60-105 [facility] Comment on above: Order Comment: Speci men Type: ARTERIAL BLOOD SPECIMENOrdering Facility: [facility] Address: [address] [place] [address] Performed By: #### A LLBG ####[facility] LABCLIA [id number] [place] [address] [place] HCO3 (Bld) [Moles/Vol] 24 mmol/L Normal 22-26 [facility] Comment on above: Order Comment: Speci men Type: ARTERIAL BLOOD SPECIMENOrdering Facility: [facility] Address: [address] [place] [address] Performed By: #### A LLBG ####[facility] LABCLIA [id number] [place] [address] [place] Hematocrit (Bld) [Volume fraction] 34.9 % Low 36.0-46.0 [facility] Comment on above: Order Comment: Speci men Type: ARTERIAL BLOOD SPECIMENOrdering Facility: [facility] Address: [address] [place] [address] Performed By: #### A LLBG ####[facility] LABIA [id number] [place] [address] [place] Hemoglobin (Bld) [Mass/Vol] 11.3 g/dL Low 11.5-15.5 [facility] Comment on above: Order Comment: Speci men Type: ARTERIAL BLOOD SPECIMENOrdering Facility: [facility] Address: [address] [place] [address] Performed By: #### A LLBG ####[facility] LABCLIA [id number] [place] [address] [place] Lactate [Moles/Vol] 1.2 mmol/L Normal 0.5-2.2 [facility] Comment on above: Order Comment: Speci men Type: ARTERIAL BLOOD SPECIMENOrdering Facility: [facility] Address: [address] [place] [address] Performed By: #### A LLBG ####[facility] LABCLIA [id number] [place] [address] [place] LITERS 2 Liters/min Normal [facility] Comment on above: Order Comment: Speci men Type: ARTERIAL BLOOD SPECIMENOrdering Facility: [facility] Address: [address] [place] [address] Performed By: #### A LLBG ####[facility] LABCLIA [id number] [place] [address] [place] Methemoglobin (Bld) [Mass fraction] 0.6 % Normal 0.0-1.5 [facility] Comment on above: Order Comment: Speci men Type: ARTERIAL BLOOD SPECIMENOrdering Facility: [facility] Address: [address] [place] [address] Performed By: #### A LLBG ####[facility] LABCLIA [id number] [place] [address] [place] O2 THERAPY NC = Nasal Cannula Normal [facility] Comment on above: Order Comment: Speci men Type: ARTERIAL BLOOD SPECIMENOrdering Facility: [facility] Address: [address] [place] [address] Performed By: #### A LLBG ####[facility] LABCLIA [id number] [place] [address] [place] Oxygen (Bld) [Partial pressure] 124 mm Hg High 85-95 [facility] Comment on above: Order Comment: Speci men Type: ARTERIAL BLOOD SPECIMENOrdering Facility: [facility] Address: [address] [place] [address] Performed By: #### A LLBG ####[facility] LABCLIA [id number] [place] [address] [place] Oxyhemoglobin (BldA) [Mass fraction] 97 % Normal 95-98 [facility] Comment on above: Order Comment: Speci men Type: ARTERIAL BLOOD SPECIMENOrdering Facility: [facility] Address: [address] [place] [address] Performed By: #### A LLBG ####[facility] LABCLIA [id number] [place] [address] [place] pH (Bld) 7.34 [pH] Low 7.35-7.45 [facility] Comment on above: Order Comment: Speci men Type: ARTERIAL BLOOD SPECIMENOrdering Facility: [facility] Address: [address] [place] [address] Performed By: #### A LLBG ####[facility] LABCLIA [id number] [place] [address] [place] Potassium [Moles/Vol] 4.6 mmol/L Normal 3.5-5.0 [facility] Comment on above: Order Comment: Speci men Type: ARTERIAL BLOOD SPECIMENOrdering Facility: [facility] Address: [address] [place] [address] Performed By: #### A LLBG ####[facility] LABCLIA [id number] [place] [address] [place] Sodium [Moles/Vol] 134 mmol/L Low 136-144 [facility] Comment on above: Order Comment: Speci men Type: ARTERIAL BLOOD SPECIMENOrdering Facility: [facility] Address: [address] [place] [address] Performed By: #### A LLBG ####[facility] LABCLIA [id number] [place] [address] [place] Base deficit (BldA) [Moles/Vol] -1 mmol/L Normal -2-0 [facility] Comment on above: Order Comment: Speci men Type: ARTERIAL BLOOD SPECIMENOrdering Facility: [facility] Address: [address] [place] [address] Performed By: #### A LLBG ####[facility] LABIA [id number] [place] [address] [place] Body temperature 98.6 [degF] Normal [facility] Comment on above: Order Comment: Speci men Type: ARTERIAL BLOOD SPECIMENOrdering Facility: [facility] Address: [address] [place] [address] Performed By: #### A LLBG ####[facility] LABIA [id number] [place] [address] [place] Calcium.ionized (Bld) [Mass/Vol] 1.20 mmol/L Normal 1.08-1.30 [facility] Comment on above: Order Comment: Speci men Type: ARTERIAL BLOOD SPECIMENOrdering Facility: [facility] Address: [address] [place] [address] Performed By: #### A LLBG ####[facility] LABCLIA [id number] [place] [address] [place] Calcium.ionized adjusted to pH 7.4 (BldA) [Moles/Vol] 1.16 mmol/L Normal 1.08-1.30 [facility] Comment on above: Order Comment: Speci men Type: ARTERIAL BLOOD SPECIMENOrdering Facility: [facility] Address: [address] [place] [address] Performed By: #### A LLBG ####[facility] LABIA [id number] [place] [address] [place] Carboxyhemoglobin (BldA) [Mass fraction] 1.5 % Normal 0.0-2.0 [facility] Comment on above: Order Comment: Speci men Type: ARTERIAL BLOOD SPECIMENOrdering Facility: [facility] Address: [address] [place] [address] Result Comment: Carb oxyhemoglobin Reference Range for Smokers: 2.0-8.0% Performed By: #### A LLBG ####[facility] LABIA [id number] [place] [address] [place] CO2 (Bld) [Partial pressure] 47 mm Hg High 36-46 [facility] Comment on above: Order Comment: Speci men Type: ARTERIAL BLOOD SPECIMENOrdering Facility: [facility] Address: [address] [place], [place] [address] Performed By: #### A LLBG ####[facility] LABIA [id number] [place] [address] [place] Glucose [Mass/Vol] 143 mg/dL High 60-105 [facility] Comment on above: Order Comment: Speci men Type: ARTERIAL BLOOD SPECIMENOrdering Facility: [facility] Address: [address] [place] [address] Performed By: #### A LLBG ####[facility] LABCLIA [id number] [place] [address] [place] HCO3 (Bld) [Moles/Vol] 25 mmol/L Normal 22-26 [facility] Comment on above: Order Comment: Speci men Type: ARTERIAL BLOOD SPECIMENOrdering Facility: [facility] Address: [address] [place] [address] Performed By: #### A LLBG ####[facility] LABCLIA [id number] [place] [address] [place] Hematocrit (Bld) [Volume fraction] 34.7 % Low 36.0-46.0 [facility] Comment on above: Order Comment: Speci men Type: ARTERIAL BLOOD SPECIMENOrdering Facility: [facility] Address: [address] [place] [address] Performed By: #### A LLBG ####[facility] LABCLIA [id number] [place] [address] [place] Hemoglobin (Bld) [Mass/Vol] 11.2 g/dL Low 11.5-15.5 [facility] Comment on above: Order Comment: Speci men Type: ARTERIAL BLOOD SPECIMENOrdering Facility: [facility] Address: [address] [place] [address] Performed By: #### A LLBG ####[facility] LABCLIA [id number] [place] [address] [place] Lactate [Moles/Vol] 0.6 mmol/L Normal 0.5-2.2 [facility] Comment on above: Order Comment: Speci men Type: ARTERIAL BLOOD SPECIMENOrdering Facility: [facility] Address: [address] [place] [address] Performed By: #### A LLBG ####[facility] LABCLIA [id number] [place] [address] [place] LITERS 2 Liters/min Normal [facility] Comment on above: Order Comment: Speci men Type: ARTERIAL BLOOD SPECIMENOrdering Facility: [facility] Address: [address] [place] [address] Performed By: #### A LLBG ####[facility] LABCLIA [id number] [place] [address] [place] Methemoglobin (Bld) [Mass fraction] 0.3 % Normal 0.0-1.5 [facility] Comment on above: Order Comment: Speci men Type: ARTERIAL BLOOD SPECIMENOrdering Facility: [facility] Address: [address] [place] [address] Performed By: #### A LLBG ####[facility] LABCLIA [id number] [place] [address] [place] O2 THERAPY NC = Nasal Cannula Normal [facility] Comment on above: Order Comment: Speci men Type: ARTERIAL BLOOD SPECIMENOrdering Facility: [facility] Address: [address] [place] [address] Performed By: #### A LLBG ####[facility] LABCLIA [id number] [place] [address] [place] Oxygen (Bld) [Partial pressure] 128 mm Hg High 85-95 [facility] Comment on above: Order Comment: Speci men Type: ARTERIAL BLOOD SPECIMENOrdering Facility: [facility] Address: [address] [place] [id number] Performed By: #### A LLBG ####[facility] LABCLIA [id number] [place] [address] [place] Oxyhemoglobin (BldA) [Mass fraction] 97 % Normal 95-98 [facility] Comment on above: Order Comment: Speci men Type: ARTERIAL BLOOD SPECIMENOrdering Facility: [facility] Address: [address] [place] [address] Performed By: #### A LLBG ####[facility] LABCLIA [id number] [place] [address] [place] pH (Bld) 7.34 [pH] Low 7.35-7.45 [facility] Comment on above: Order Comment: Speci men Type: ARTERIAL BLOOD SPECIMENOrdering Facility: [facility] Address: [address] [place] [address] Performed By: #### A LLBG ####[facility] LABIA [id number] [place] [address] [place] Potassium [Moles/Vol] 4.6 mmol/L Normal 3.5-5.0 [facility] Comment on above: Order Comment: Speci men Type: ARTERIAL BLOOD SPECIMENOrdering Facility: [facility] Address: [address] [place] [address] Performed By: #### A LLBG ####[facility] LABIA [id number] [place] [address] [place] Sodium [Moles/Vol] 133 mmol/L Low 136-144 [facility] Comment on above: Order Comment: Speci men Type: ARTERIAL BLOOD SPECIMENOrdering Facility: [facility] Address: [address] [place] [address] Performed By: #### A LLBG ####[facility] LABIA [id number] [place] [address] [place] CBC panel Auto (Bld)on 11-05 Erythrocyte distribution width (RBC) [Ratio] 13.2 % Normal 11.5-15.0 [facility] Comment on above: Order Comment: Speci men Type: BLOOD SPECIMENOrdering Facility: [facility] Address: [address] [place] [address] Performed By: #### 5 8410-2 ####[facility] LABIA [id number] [place] [address] [place] Hematocrit (Bld) [Volume fraction] 33.7 % Low 36.0-46.0 [facility] Comment on above: Order Comment: Speci men Type: BLOOD SPECIMENOrdering Facility: [facility] Address: [address] [place] [address] Performed By: #### 5 8410-2 ####[facility] LABIA [id number] [place] [address] [place] Hemoglobin (Bld) [Mass/Vol] 11.2 g/dL Low 11.5-15.5 [facility] Comment on above: Order Comment: Speci men Type: BLOOD SPECIMENOrdering Facility: [facility] Address: [address] [place] [address] Performed By: #### 5 8410-2 ####[facility] LABIA [id number] [place] [address] [place] MCH (RBC) [Entitic mass] 27.6 pg Normal 26.0-34.0 [facility] Comment on above: Order Comment: Speci men Type: BLOOD SPECIMENOrdering Facility: [facility] Address: [address] [place] [address] Performed By: #### 5 8410-2 ####[facility] LABIA [id number] [place] [address] [place] MCHC (RBC) [Mass/Vol] 33.2 g/dL Normal 30.5-36.0 [facility] Comment on above: Order Comment: Speci men Type: BLOOD SPECIMENOrdering Facility: [facility] Address: [address] [place] [address] Performed By: #### 5 8410-2 ####[facility] LABIA [id number] [place] [address] [place] MCV (RBC) [Entitic vol] 83.0 fL Normal 80.0-100.0 [facility] Comment on above: Order Comment: Speci men Type: BLOOD SPECIMENOrdering Facility: [facility] Address: [address] [place] [address] Performed By: #### 5 8410-2 ####[facility] LABCLIA [id number] [place] [address] [place] Nucleated RBC (Bld) [#/Vol] 10*3/uL Normal <0.01 [facility] Comment on above: Order Comment: Speci men Type: BLOOD SPECIMENOrdering Facility: [facility] Address: [address] [place] [address] Performed By: #### 5 8410-2 ####[facility] LABCLIA [id number] [place] [address] [place] Platelet mean volume (Bld) [Entitic vol] 10.0 fL Normal 9.0-12.7 [facility] Comment on above: Order Comment: Speci men Type: BLOOD SPECIMENOrdering Facility: [facility] Address: [address] [place] [address] Performed By: #### 5 8410-2 ####[facility] LABCLIA [id number] [place] [address] [place] Platelets (Bld) [#/Vol] 147 10*3/uL Low 150-400 [facility] Comment on above: Order Comment: Speci men Type: BLOOD SPECIMENOrdering Facility: [facility] Address: [address] [place] [address] Performed By: #### 5 8410-2 ####[facility] LABCLIA [id number] [place] [address] [place] RBC (Bld) [#/Vol] 4.06 10*6/uL Normal 3.90-5.20 [facility] Comment on above: Order Comment: Speci men Type: BLOOD SPECIMENOrdering Facility: [facility] Address: [address] [place] [address] Performed By: #### 5 8410-2 ####[facility] LABCLIA [id number] [address] [address] [place] WBC (Bld) [#/Vol] 11.97 10*3/uL High 3.70-11.00 [facility] Comment on above: Order Comment: Speci men Type: BLOOD SPECIMENOrdering Facility: [facility] Address: [address] [place] [address] Performed By: #### 5 8410-2 ####[facility] LABCLIA [id number] [place] [address] [place] Comprehensive metabolic 2000 panelon 11-06-2023 Albumin [Mass/Vol] 3.2 g/dL Low 3.9-4.9 [facility] Comment on above: Order Comment: Speci men Type: BLOOD SPECIMENOrdering Facility: [facility] Address: [address] [place] [address] Performed By: #### 2 4323-8, HSTNT, ####[facility] LABIA [id number] [place] [id number] [place] ALP [Catalytic activity/Vol] 62 U/L Normal 34-123 [facility] Comment on above: Order Comment: Speci men Type: BLOOD SPECIMENOrdering Facility: [facility] Address: [address] [place] [address] Performed By: #### 2 4323-8, HSTNT, ####[facility] LABIA [id number] [address] [address] [place] ALT [Catalytic activity/Vol] 11 U/L Normal 7-38 [facility] Comment on above: Order Comment: Speci men Type: BLOOD SPECIMENOrdering Facility: [facility] Address: [address] [place] [address] Performed By: #### 2 4323-8, HSTNT, ####[facility] LABIA [id number] [place] [address] [place] Anion gap [Moles/Vol] 8 mmol/L Normal 8-15 [facility] Comment on above: Order Comment: Speci men Type: BLOOD SPECIMENOrdering Facility: [facility] Address: [address] [place] [address] Performed By: #### 2 4323-8, HSTNT, ####[facility] LABCLIA [id number] [place] [address] [place] AST [Catalytic activity/Vol] 27 U/L Normal 13-35 [facility] Comment on above: Order Comment: Speci men Type: BLOOD SPECIMENOrdering Facility: [facility] Address: [address] [place] [address] Performed By: #### 2 4323-8, HSTNT, ####[facility] LABCLIA [id number] [place] [address] [place] Bilirubin [Mass/Vol] 0.5 mg/dL Normal 0.2-1.3 [facility] Comment on above: Order Comment: Speci men Type: BLOOD SPECIMENOrdering Facility: [facility] Address: [address] [place] [address] Performed By: #### 2 4323-8, HSTNT, ####[facility] LABCLIA [id number] [place] [id number] [place] Calcium [Mass/Vol] 8.3 mg/dL Low 8.5-10.2 [facility] Comment on above: Order Comment: Speci men Type: BLOOD SPECIMENOrdering Facility: [facility] Address: [address] [place] [address] Performed By: #### 2 4323-8, HSTNT, ####[facility] LABCLIA [id number] [place] [id number] [place] Chloride [Moles/Vol] 105 mmol/L Normal 98-107 [facility] Comment on above: Order Comment: Speci men Type: BLOOD SPECIMENOrdering Facility: [facility] Address: [address] [place] [address] Performed By: #### 2 4323-8, HSTNT, ####[facility] LABCLIA [id number] [place] [address] [place] CO2 [Moles/Vol] 22 mmol/L Normal 22-30 [facility] Comment on above: Order Comment: Speci men Type: BLOOD SPECIMENOrdering Facility: [facility] Address: [address] [place] [address] Performed By: #### 2 4323-8, HSTNT, ####[facility] LABCLIA [id number] [place] [address] [place] Creatinine [Mass/Vol] 0.71 mg/dL Normal 0.58-0.96 [facility] Comment on above: Order Comment: Speci men Type: BLOOD SPECIMENOrdering Facility: [facility] Address: [address] [place] [address] Performed By: #### 2 4323-8, HSTNT, ####[facility] LABCLIA [id number] [place] [address] [place] Creatinine and Glomerular filtration rate.predicted panel (S/P/Bld) 104 mL/min/1.73m??? Normal >=60 [facility] Comment on above: Order Comment: Speci men Type: BLOOD SPECIMENOrdering Facility: [facility] Address: [address] [place] [address] Result Comment: Yani mated Glomerular Filtration Rate (eGFR) is calculated using the 2020 CKD-EPI creatinine equation. This equation utilizes serum creatinine, sex, and age as parameters. The creatinine assay has traceable calibration to isotope dilution-mass spectrometry. Refer to KDIGO guidelines for clinical interpretation. In patients with unstable renal function, e.g. those with acute kidney injury, the eGFR may not accurately reflect actual GFR. Performed By: #### 2 4323-8, HSTNT, ####[facility] LABCLIA [id number] [place] [address] [place] Glucose [Mass/Vol] 142 mg/dL High 74-99 [facility] Comment on above: Order Comment: Speci men Type: BLOOD SPECIMENOrdering Facility: [facility] Address: [address] [place] [address] Result Comment: The [place] Diabetes Association (ADA) provides guidance for cutoff values for fasting glucose and random glucose. The ADA defines fasting as no caloric intake for at least 8 hours. Fasting plasma glucose results between 100 to 125 mg/dL indicate increased risk for diabetes (prediabetes).Fasting plasma glucose results greater than or equal to 126 mg/dL meet the criteria for diagnosis of diabetes. In the absence of unequivocal hyperglycemia, results should be confirmed by repeat testing. In a patient with classic symptoms of hyperglycemia or hyperglycemic crisis, random plasma glucose results greater than or equal to 200 mg/dL meet the criteria for diagnosis of diabetes.Reference: Standards of Medical Care in Diabetes 2016, [place] [employer] Association. Diabetes Care. 2016.39(Suppl 1). Performed By: #### 2 4323-8, HSTNT, ####[facility] LABCLIA [id number] [place] [address] [place] Potassium [Moles/Vol] 4.9 mmol/L Normal 3.7-5.1 [facility] Comment on above: Order Comment: Speci men Type: BLOOD SPECIMENOrdering Facility: [facility] Address: [address] [place] [address] Performed By: #### 2 4323-8, HSTNT, ####[facility] LABIA [id number] [place] [address] [place] Protein [Mass/Vol] 5.7 g/dL Low 6.3-8.0 [facility] Comment on above: Order Comment: Speci men Type: BLOOD SPECIMENOrdering Facility: [facility] Address: [address] [place], [place] [address] Performed By: #### 2 4323-8, HSTNT, 06787-3 ####[facility] LABCLIA [id number] [address] [address] [place] Sodium [Moles/Vol] 135 mmol/L Low 136-144 [facility] Comment on above: Order Comment: Speci men Type: BLOOD SPECIMENOrdering Facility: [facility] Address: [address] [place] [address] Performed By: #### 2 4323-8, HSTNT, 57352-5 ####[facility] LABCLIA [id number] [place] [address] [place] Urea nitrogen [Mass/Vol] 13 mg/dL Normal 7-21 [facility] Comment on above: Order Comment: Speci men Type: BLOOD SPECIMENOrdering Facility: [facility] Address: [address] [place] [address] Performed By: #### 2 4323-8, HSTNT, 35004-6 ####[facility] LABCLIA [id number] [place] [id number] [place] [id number] 11-06-2023 ECG01 Normal [facility] HIGH SENSITIVITY TROPONIN To n 11-06-2023 Troponin T.cardiac High sensitivity method [Mass/Vol] 191 ng/L High <12 [facility] Comment on above: Order Comment: Speci men Type: BLOOD SPECIMENOrdering Facility: [facility] Address: [address] [place], [place] [id number] Performed By: #### 2 4323-8, HSTNT, 70909-7 ####[facility] LABCLIA [id number] [place] [id number] [place] Magnesium SerPl-mCncon 11-05 Magnesium [Mass/Vol] 1.7 mg/dL Normal 1.7-2.3 [facility] Comment on above: Order Comment: Speci men Type: BLOOD SPECIMENOrdering Facility: [facility] Address: [address] [place] [address] Performed By: #### 2 4323-8, HSTNT, 27842-0 ####[facility] LABCLIA [id number] [place] [address] [place] PT panel Coag (PPP)on 2023 INR Coag (PPP) [Relative time] 1.1 {INR} Normal 0.9-1.3 [facility] Comment on above: Order Comment: Specgema eloy Type: BLOOD SPECIMENOrdering Facility: [facility] Address: [address] [place] [address] Result Comment: Jesusita min K Antagonist (VKA) Therapeutic Range: INR 2 to 3 (Target INR of 2.5)Note: For patients treated with VKA drugs, such as warfarin, the [employer] 2012 Guideline recommends a therapeutic INR range of 2 to 3 (target INR of 2.5). This recommendation includes high-risk patients with antiphospholipid syndrome with previous arterial or venous thromboembolism, current-generation mechanical or bioprosthetic aortic heart valve replacement.Note: Patients with mechanical aortic valve replacement and additional risk factors for thromboembolic events (atrial fibrillation, previous thromboembolism, LV dysfunction, hypercoagulable conditions) or an older generation mechanical AVR (i.e., ball in-Cage) or any mechanical MVR should have a INR therapeutic range of 2.5 to 3.5 (target INR of 3).Kristie GH, et al. Chest 2012, 141:7S-47SNishimura RA, et al. [facility] 2017, 70: 252-289 Performed By: #### 3 4528-0 ####[facility] LABIA [id number] [place] [id number] [place] PT Coag (PPP) [Time] 11.5 s Normal 9.7-13.0 [facility] Comment on above: Order Comment: Speci men Type: BLOOD SPECIMENOrdering Facility: [facility] Address: [address] [place] [address] Performed By: #### 3 4528-0 ####[facility] LABCLIA [id number] [place] [address] [place] XR CHEST 1V FRONTAL PORTon 0 11-06-2023 XR CHEST 1V FRONTAL PORT Normal [facility] ANES POSTPROC EVALon 024 ANES POSTPROC EVAL Normal [facility] ANES PRE-OPon 11-05-2023 ANES PRE-OP Normal [facility] ARTERIAL BLOOD GASESon 11-04 Base deficit (BldA) [Moles/Vol] -1 mmol/L Normal -2-0 [facility] Comment on above: Order Comment: Speci men Type: ARTERIAL BLOOD SPECIMENOrdering Facility: [facility] Address: [address] [place] [address] Performed By: #### A LLBG ####[facility] LABCLIA [id number] [place] [address] [place] Body temperature 98.6 [degF] Normal [facility] Comment on above: Order Comment: Speci men Type: ARTERIAL BLOOD SPECIMENOrdering Facility: [facility] Address: [address] [place] [address] Performed By: #### A LLBG ####[facility] LABCLIA [id number] [place] [address] [place] Calcium.ionized (Bld) [Mass/Vol] 1.20 mmol/L Normal 1.08-1.30 [facility] Comment on above: Order Comment: Speci men Type: ARTERIAL BLOOD SPECIMENOrdering Facility: [facility] Address: [address] [place] [address] Performed By: #### A LLBG ####[facility] LABCLIA [id number] [place] [address] [place] Calcium.ionized adjusted to pH 7.4 (BldA) [Moles/Vol] 1.16 mmol/L Normal 1.08-1.30 [facility] Comment on above: Order Comment: Speci men Type: ARTERIAL BLOOD SPECIMENOrdering Facility: [facility] Address: [address] [place] [address] Performed By: #### A LLBG ####[facility] LABCLIA [id number] [place] [address] [place] Carboxyhemoglobin (BldA) [Mass fraction] 1.4 % Normal 0.0-2.0 [facility] Comment on above: Order Comment: Speci men Type: ARTERIAL BLOOD SPECIMENOrdering Facility: [facility] Address: [address] [place] [address] Result Comment: Carb oxyhemoglobin Reference Range for Smokers: 2.0-8.0% Performed By: #### A LLBG ####[facility] LABIA [id number] [place] [address] [place] CO2 (Bld) [Partial pressure] 46 mm Hg Normal 36-46 [facility] Comment on above: Order Comment: Speci men Type: ARTERIAL BLOOD SPECIMENOrdering Facility: [facility] Address: [address] [place] [address] Performed By: #### A LLBG ####[facility] LABCLIA [id number] [place] [address] [place] Glucose [Mass/Vol] 150 mg/dL High 60-105 [facility] Comment on above: Order Comment: Speci men Type: ARTERIAL BLOOD SPECIMENOrdering Facility: [facility] Address: [address] [place] [address] Performed By: #### A LLBG ####[facility] LABIA [id number] [place] [address] [place] HCO3 (Bld) [Moles/Vol] 24 mmol/L Normal 22-26 [facility] Comment on above: Order Comment: Speci men Type: ARTERIAL BLOOD SPECIMENOrdering Facility: [facility] Address: [address] [place] [address] Performed By: #### A LLBG ####[facility] LABCLIA [id number] [place] [address] [place] Hematocrit (Bld) [Volume fraction] 35.1 % Low 36.0-46.0 [facility] Comment on above: Order Comment: Speci men Type: ARTERIAL BLOOD SPECIMENOrdering Facility: [facility] Address: [address] [place] [address] Performed By: #### A LLBG ####[facility] LABCLIA [id number] [place] [address] [place] Hemoglobin (Bld) [Mass/Vol] 11.4 g/dL Low 11.5-15.5 [facility] Comment on above: Order Comment: Speci men Type: ARTERIAL BLOOD SPECIMENOrdering Facility: [facility] Address: [address] [place] [address] Performed By: #### A LLBG ####[facility] LABCLIA [id number] [place] [address] [place] Lactate [Moles/Vol] 0.8 mmol/L Normal 0.5-2.2 [facility] Comment on above: Order Comment: Speci men Type: ARTERIAL BLOOD SPECIMENOrdering Facility: [facility] Address: [address] [place] [address] Performed By: #### A LLBG ####[facility] LABCLIA [id number] [place] [address] [place] LITERS 2 Liters/min Normal [facility] Comment on above: Order Comment: Speci men Type: ARTERIAL BLOOD SPECIMENOrdering Facility: [facility] Address: [address] [place] [address] Performed By: #### A LLBG ####[facility] LABCLIA [id number] [place] [address] [place] Methemoglobin (Bld) [Mass fraction] 0.7 % Normal 0.0-1.5 [facility] Comment on above: Order Comment: Speci men Type: ARTERIAL BLOOD SPECIMENOrdering Facility: [facility] Address: [address] [place] [address] Performed By: #### A LLBG ####[facility] LABCLIA [id number] [place] [address] [place] O2 THERAPY NC = Nasal Cannula Normal [facility] Comment on above: Order Comment: Speci men Type: ARTERIAL BLOOD SPECIMENOrdering Facility: [facility] Address: [address] [place] [address] Performed By: #### A LLBG ####[facility] LABCLIA [id number] [place] [address] [place] Oxygen (Bld) [Partial pressure] 138 mm Hg High 85-95 [facility] Comment on above: Order Comment: Speci men Type: ARTERIAL BLOOD SPECIMENOrdering Facility: [facility] Address: [address] [place] [address] Performed By: #### A LLBG ####[facility] LABCLIA [id number] [place] [address] [place] Oxyhemoglobin (BldA) [Mass fraction] 97 % Normal 95-98 [facility] Comment on above: Order Comment: Speci men Type: ARTERIAL BLOOD SPECIMENOrdering Facility: [facility] Address: [address] [place] [address] Performed By: #### A LLBG ####[facility] LABCLIA [id number] [place] [id number] [place] pH (Bld) 7.34 [pH] Low 7.35-7.45 [facility] Comment on above: Order Comment: Speci men Type: ARTERIAL BLOOD SPECIMENOrdering Facility: [facility] Address: [address] [place], [place] [id number] Performed By: #### A LLBG ####[facility] LABCLIA [id number] [place] [address] [place] Potassium [Moles/Vol] 4.9 mmol/L Normal 3.5-5.0 [facility] Comment on above: Order Comment: Speci men Type: ARTERIAL BLOOD SPECIMENOrdering Facility: [facility] Address: [address] [place] [address] Performed By: #### A LLBG ####[facility] LABCLIA [id number] [place] [address] [place] Sodium [Moles/Vol] 133 mmol/L Low 136-144 [facility] Comment on above: Order Comment: Speci men Type: ARTERIAL BLOOD SPECIMENOrdering Facility: [facility] Address: [address] [place] [address] Performed By: #### A LLBG ####[facility] LABIA [id number] [place] [address] [place] Base deficit (BldA) [Moles/Vol] -3 mmol/L Low -2-0 [facility] Comment on above: Order Comment: Speci men Type: ARTERIAL BLOOD SPECIMENOrdering Facility: [facility] Address: [address] [place] [address] Performed By: #### A LLBG ####[facility] LABIA [id number] [place] [address] [place] Body temperature 98.6 [degF] Normal [facility] Comment on above: Order Comment: Speci men Type: ARTERIAL BLOOD SPECIMENOrdering Facility: [facility] Address: [address] [place] [address] Performed By: #### A LLBG ####[facility] LABIA [id number] [place] [address] [place] Calcium.ionized (Bld) [Mass/Vol] 1.24 mmol/L Normal 1.08-1.30 [facility] Comment on above: Order Comment: Speci men Type: ARTERIAL BLOOD SPECIMENOrdering Facility: [facility] Address: [address] [place] [address] Performed By: #### A LLBG ####[facility] LABIA [id number] [place] [address] [place] Calcium.ionized adjusted to pH 7.4 (BldA) [Moles/Vol] 1.17 mmol/L Normal 1.08-1.30 [facility] Comment on above: Order Comment: Speci men Type: ARTERIAL BLOOD SPECIMENOrdering Facility: [facility] Address: [address] [place] [address] Performed By: #### A LLBG ####[facility] LABIA [id number] [place] [address] [place] Carboxyhemoglobin (BldA) [Mass fraction] 1.6 % Normal 0.0-2.0 [facility] Comment on above: Order Comment: Speci men Type: ARTERIAL BLOOD SPECIMENOrdering Facility: [facility] Address: [address] [place] [address] Result Comment: Carb oxyhemoglobin Reference Range for Smokers: 2.0-8.0% Performed By: #### A LLBG ####[facility] LABIA [id number] [place] [address] [place] CO2 (Bld) [Partial pressure] 49 mm Hg High 36-46 [facility] Comment on above: Order Comment: Speci men Type: ARTERIAL BLOOD SPECIMENOrdering Facility: [facility] Address: [address] [place] [address] Performed By: #### A LLBG ####[facility] LABIA [id number] [place] [address] [place] Glucose [Mass/Vol] 145 mg/dL High 60-105 [facility] Comment on above: Order Comment: Speci men Type: ARTERIAL BLOOD SPECIMENOrdering Facility: [facility] Address: [address] [place] [address] Performed By: #### A LLBG ####[facility] LABCLIA [id number] [place] [address] [place] HCO3 (Bld) [Moles/Vol] 23 mmol/L Normal 22-26 [facility] Comment on above: Order Comment: Speci men Type: ARTERIAL BLOOD SPECIMENOrdering Facility: [facility] Address: [address] [place] [address] Performed By: #### A LLBG ####[facility] LABCLIA [id number] [place] [address] [place] Hematocrit (Bld) [Volume fraction] 34.8 % Low 36.0-46.0 [facility] Comment on above: Order Comment: Speci men Type: ARTERIAL BLOOD SPECIMENOrdering Facility: [facility] Address: [address] [place] [address] Performed By: #### A LLBG ####[facility] LABCLIA [id number] [place] [address] [place] Hemoglobin (Bld) [Mass/Vol] 11.3 g/dL Low 11.5-15.5 [facility] Comment on above: Order Comment: Speci men Type: ARTERIAL BLOOD SPECIMENOrdering Facility: [facility] Address: [address] [place] [address] Performed By: #### A LLBG ####[facility] LABCLIA [id number] [place] [address] [place] Lactate [Moles/Vol] 1.2 mmol/L Normal 0.5-2.2 [facility] Comment on above: Order Comment: Speci men Type: ARTERIAL BLOOD SPECIMENOrdering Facility: [facility] Address: [address] [place] [address] Performed By: #### A LLBG ####[facility] LABCLIA [id number] [address] [address] [id number] [address] [place] LITERS 2 Liters/min Normal [facility] Comment on above: Order Comment: Speci men Type: ARTERIAL BLOOD SPECIMENOrdering Facility: [facility] Address: [address] [place] [id number] Performed By: #### A LLBG ####[facility] LABCLIA [id number] [place] [address] [place] Methemoglobin (Bld) [Mass fraction] 0.6 % Normal 0.0-1.5 [facility] Comment on above: Order Comment: Speci men Type: ARTERIAL BLOOD SPECIMENOrdering Facility: [facility] Address: [address] [place] [address] Performed By: #### A LLBG ####[facility] LABCLIA [id number] [place] [address] [place] O2 THERAPY NC = Nasal Cannula Normal [facility] Comment on above: Order Comment: Speci men Type: ARTERIAL BLOOD SPECIMENOrdering Facility: [facility] Address: [address] [place] [address] Performed By: #### A LLBG ####[facility] LABCLIA [id number] [place] [address] [place] Oxygen (Bld) [Partial pressure] 155 mm Hg High 85-95 [facility] Comment on above: Order Comment: Speci men Type: ARTERIAL BLOOD SPECIMENOrdering Facility: [facility] Address: [address] [place] [id number] Performed By: #### A LLBG ####[facility] LABCLIA [id number] [place] [address] [place] Oxyhemoglobin (BldA) [Mass fraction] 97 % Normal 95-98 [facility] Comment on above: Order Comment: Speci men Type: ARTERIAL BLOOD SPECIMENOrdering Facility: [facility] Address: [address] [place] [id number] Performed By: #### A LLBG ####[facility] LABCLIA [id number] [place] [address] [place] pH (Bld) 7.30 [pH] Low 7.35-7.45 [facility] Comment on above: Order Comment: Speci men Type: ARTERIAL BLOOD SPECIMENOrdering Facility: [facility] Address: [address] [place] [address] Performed By: #### A LLBG ####[facility] LABCLIA [id number] [place] [address] [place] Potassium [Moles/Vol] 4.9 mmol/L Normal 3.5-5.0 [facility] Comment on above: Order Comment: Speci men Type: ARTERIAL BLOOD SPECIMENOrdering Facility: [facility] Address: [address] [place] [address] Performed By: #### A LLBG ####[facility] LABIA [id number] [place] [address] [place] Sodium [Moles/Vol] 136 mmol/L Normal 136-144 [facility] Comment on above: Order Comment: Speci men Type: ARTERIAL BLOOD SPECIMENOrdering Facility: [facility] Address: [address] [place] [address] Performed By: #### A LLBG ####[facility] LABIA [id number] [place] [address] [place] Base deficit (BldA) [Moles/Vol] -2 mmol/L Normal -2-0 [facility] Comment on above: Order Comment: Speci men Type: ARTERIAL BLOOD SPECIMENOrdering Facility: [facility] Address: [address] [place] [address] Performed By: #### A LLBG ####[facility] LABCLIA [id number] [place] [address] [place] Body temperature 98.6 [degF] Normal [facility] Comment on above: Order Comment: Speci men Type: ARTERIAL BLOOD SPECIMENOrdering Facility: [facility] Address: [address] [place] [address] Performed By: #### A LLBG ####[facility] [id number] [place] [address] [place] Calcium.ionized (Bld) [Mass/Vol] 1.20 mmol/L Normal 1.08-1.30 [facility] Comment on above: Order Comment: Speci men Type: ARTERIAL BLOOD SPECIMENOrdering Facility: [facility] Address: [address] [place] [address] Performed By: #### A LLBG ####[facility] [id number] [place] [address] [place] Calcium.ionized adjusted to pH 7.4 (BldA) [Moles/Vol] 1.16 mmol/L Normal 1.08-1.30 [facility] Comment on above: Order Comment: Speci men Type: ARTERIAL BLOOD SPECIMENOrdering Facility: [facility] Address: [address] [place] [address] Performed By: #### A LLBG ####[facility] [id number] [place] [address] [place] Carboxyhemoglobin (BldA) [Mass fraction] 0.9 % Normal 0.0-2.0 [facility] Comment on above: Order Comment: Speci men Type: ARTERIAL BLOOD SPECIMENOrdering Facility: [facility] Address: [address] [place] [address] Result Comment: Carb oxyhemoglobin Reference Range for Smokers: 2.0-8.0% Performed By: #### A LLBG ####[facility] [id number] [place] [address] [place] CO2 (Bld) [Partial pressure] 46 mm Hg Normal 36-46 [facility] Comment on above: Order Comment: Speci men Type: ARTERIAL BLOOD SPECIMENOrdering Facility: [facility] Address: [address] [place] [address] Performed By: #### A LLBG ####[facility] LABCLIA [id number] [place] [address] [place] Glucose [Mass/Vol] 162 mg/dL High 60-105 [facility] Comment on above: Order Comment: Speci men Type: ARTERIAL BLOOD SPECIMENOrdering Facility: [facility] Address: [address] [place] [address] Performed By: #### A LLBG ####[facility] LABCLIA [id number] [place] [address] [place] HCO3 (Bld) [Moles/Vol] 24 mmol/L Normal 22-26 [facility] Comment on above: Order Comment: Speci men Type: ARTERIAL BLOOD SPECIMENOrdering Facility: [facility] Address: [address] [place] [address] Performed By: #### A LLBG ####[facility] LABCLIA [id number] [place] [address] [place] Hematocrit (Bld) [Volume fraction] 35.9 % Low 36.0-46.0 [facility] Comment on above: Order Comment: Speci men Type: ARTERIAL BLOOD SPECIMENOrdering Facility: [facility] Address: [address] [place] [address] Performed By: #### A LLBG ####[facility] LABCLIA [id number] [place] [address] [place] Hemoglobin (Bld) [Mass/Vol] 11.6 g/dL Normal 11.5-15.5 [facility] Comment on above: Order Comment: Speci men Type: ARTERIAL BLOOD SPECIMENOrdering Facility: [facility] Address: [address] [place] [address] Performed By: #### A LLBG ####[facility] LABCLIA [id number] [place] [address] [place] Lactate [Moles/Vol] 1.5 mmol/L Normal 0.5-2.2 [facility] Comment on above: Order Comment: Speci men Type: ARTERIAL BLOOD SPECIMENOrdering Facility: [facility] Address: [address] [place] [address] Performed By: #### A LLBG ####[facility] LABCLIA [id number] [place] [address] [place] Methemoglobin (Bld) [Mass fraction] 1.4 % Normal 0.0-1.5 [facility] Comment on above: Order Comment: Speci men Type: ARTERIAL BLOOD SPECIMENOrdering Facility: [facility] Address: [address] [place] [address] Performed By: #### A LLBG ####[facility] LABCLIA [id number] [place] [address] [place] O2 THERAPY NC Humid = Nasal Cannula-Humidified (7-15 LPM) Normal [facility] Comment on above: Order Comment: Speci men Type: ARTERIAL BLOOD SPECIMENOrdering Facility: [facility] Address: [address] [place] [address] Performed By: #### A LLBG ####[facility] LABCLIA [id number] [place] [address] [place] Oxygen (Bld) [Partial pressure] 149 mm Hg High 85-95 [facility] Comment on above: Order Comment: Speci men Type: ARTERIAL BLOOD SPECIMENOrdering Facility: [facility] Address: [address] [place] [address] Performed By: #### A LLBG ####[facility] LABIA [id number] [place] [address] [place] Oxyhemoglobin (BldA) [Mass fraction] 96 % Normal 95-98 [facility] Comment on above: Order Comment: Speci men Type: ARTERIAL BLOOD SPECIMENOrdering Facility: [facility] Address: [address] [place] [address] Performed By: #### A LLBG ####[facility] LABCLIA [id number] [place] [address] [place] pH (Bld) 7.33 [pH] Low 7.35-7.45 [facility] Comment on above: Order Comment: Speci men Type: ARTERIAL BLOOD SPECIMENOrdering Facility: [facility] Address: [address] [place] [address] Performed By: #### A LLBG ####[facility] LABCLIA [id number] [place] [address] [place] Potassium [Moles/Vol] 4.8 mmol/L Normal 3.5-5.0 [facility] Comment on above: Order Comment: Speci men Type: ARTERIAL BLOOD SPECIMENOrdering Facility: [facility] Address: [address] [place] [address] Performed By: #### A LLBG ####[facility] LABIA [id number] [place] [address] [place] Sodium [Moles/Vol] 134 mmol/L Low 136-144 [facility] Comment on above: Order Comment: Speci men Type: ARTERIAL BLOOD SPECIMENOrdering Facility: [facility] Address: [address] [place] [address] Performed By: #### A LLBG ####[facility] LABCLIA [id number] [place] [address] [place] Base deficit (BldA) [Moles/Vol] -2 mmol/L Normal -2-0 [facility] Comment on above: Order Comment: Speci men Type: ARTERIAL BLOOD SPECIMENOrdering Facility: [facility] Address: [address] [place] [address] Performed By: #### A LLBG ####[facility] LABIA [id number] [place] [address] [place] Body temperature 98.6 [degF] Normal [facility] Comment on above: Order Comment: Speci men Type: ARTERIAL BLOOD SPECIMENOrdering Facility: [facility] Address: [address] [place] [address] Performed By: #### A LLBG ####[facility] LABCLIA [id number] [place] [address] [place] Calcium.ionized (Bld) [Mass/Vol] 1.24 mmol/L Normal 1.08-1.30 [facility] Comment on above: Order Comment: Speci men Type: ARTERIAL BLOOD SPECIMENOrdering Facility: [facility] Address: [address] [place] [address] Performed By: #### A LLBG ####[facility] LABIA [id number] [place] [address] [place] Calcium.ionized adjusted to pH 7.4 (BldA) [Moles/Vol] 1.17 mmol/L Normal 1.08-1.30 [facility] Comment on above: Order Comment: Speci men Type: ARTERIAL BLOOD SPECIMENOrdering Facility: [facility] Address: [address] [place] [address] Performed By: #### A LLBG ####[facility] LABIA [id number] [place] [address] [place] Carboxyhemoglobin (BldA) [Mass fraction] 1.1 % Normal 0.0-2.0 [facility] Comment on above: Order Comment: Speci men Type: ARTERIAL BLOOD SPECIMENOrdering Facility: [facility] Address: [address] [place] [address] Result Comment: Carb oxyhemoglobin Reference Range for Smokers: 2.0-8.0% Performed By: #### A LLBG ####[facility] LABCLIA [id number] [place] [address] [place] CO2 (Bld) [Partial pressure] 51 mm Hg High 36-46 [facility] Comment on above: Order Comment: Speci men Type: ARTERIAL BLOOD SPECIMENOrdering Facility: [facility] Address: [address] [place] [address] Performed By: #### A LLBG ####[facility] LABCLIA [id number] [place] [address] [place] Glucose [Mass/Vol] 175 mg/dL High 60-105 [facility] Comment on above: Order Comment: Speci men Type: ARTERIAL BLOOD SPECIMENOrdering Facility: [facility] Address: [address] [place] [address] Performed By: #### A LLBG ####[facility] LABCLIA [id number] [place] [address] [place] HCO3 (Bld) [Moles/Vol] 24 mmol/L Normal 22-26 [facility] Comment on above: Order Comment: Speci men Type: ARTERIAL BLOOD SPECIMENOrdering Facility: [facility] Address: [address] [place] [address] Performed By: #### A LLBG ####[facility] LABCLIA [id number] [place] [address] [place] Hematocrit (Bld) [Volume fraction] 34.5 % Low 36.0-46.0 [facility] Comment on above: Order Comment: Speci men Type: ARTERIAL BLOOD SPECIMENOrdering Facility: [facility] Address: [address] [place] [address] Performed By: #### A LLBG ####[facility] LABCLIA [id number] [place] [address] [place] Hemoglobin (Bld) [Mass/Vol] 11.2 g/dL Low 11.5-15.5 [facility] Comment on above: Order Comment: Speci men Type: ARTERIAL BLOOD SPECIMENOrdering Facility: [facility] Address: [address] [place] [address] Performed By: #### A LLBG ####[facility] LABCLIA [id number] [place] [address] [place] Lactate [Moles/Vol] 1.2 mmol/L Normal 0.5-2.2 [facility] Comment on above: Order Comment: Speci men Type: ARTERIAL BLOOD SPECIMENOrdering Facility: [facility] Address: [address] [place] [address] Performed By: #### A LLBG ####[facility] LABCLIA [id number] [place] [address] [place] Methemoglobin (Bld) [Mass fraction] 0.7 % Normal 0.0-1.5 [facility] Comment on above: Order Comment: Speci men Type: ARTERIAL BLOOD SPECIMENOrdering Facility: [facility] Address: [address] [place] [address] Performed By: #### A LLBG ####[facility] LABIA [id number] [place] [address] [place] O2 THERAPY NC = Nasal Cannula Normal [facility] Comment on above: Order Comment: Speci men Type: ARTERIAL BLOOD SPECIMENOrdering Facility: [facility] Address: [address] [place] [address] Performed By: #### A LLBG ####[facility] LABCLIA [id number] [place] [address] [place] Oxygen (Bld) [Partial pressure] 134 mm Hg High 85-95 [facility] Comment on above: Order Comment: Speci men Type: ARTERIAL BLOOD SPECIMENOrdering Facility: [facility] Address: [address] [place], [place] [id number] Performed By: #### A LLBG ####[facility] LABCLIA [id number] [place] [address] [place] Oxyhemoglobin (BldA) [Mass fraction] 97 % Normal 95-98 [facility] Comment on above: Order Comment: Speci men Type: ARTERIAL BLOOD SPECIMENOrdering Facility: [facility] Address: [address] [place] [address] Performed By: #### A LLBG ####[facility] LABCLIA [id number] [place] [address] [place] pH (Bld) 7.30 [pH] Low 7.35-7.45 [facility] Comment on above: Order Comment: Speci men Type: ARTERIAL BLOOD SPECIMENOrdering Facility: [facility] Address: [address] [place] [address] Performed By: #### A LLBG ####[facility] LABIA [id number] [place] [address] [place] Potassium [Moles/Vol] 4.8 mmol/L Normal 3.5-5.0 [facility] Comment on above: Order Comment: Speci men Type: ARTERIAL BLOOD SPECIMENOrdering Facility: [facility] Address: [address] [place] [address] Performed By: #### A LLBG ####[facility] LABIA [id number] [place] [address] [place] Sodium [Moles/Vol] 135 mmol/L Low 136-144 [facility] Comment on above: Order Comment: Speci men Type: ARTERIAL BLOOD SPECIMENOrdering Facility: [facility] Address: [address] [place] [address] Performed By: #### A LLBG ####[facility] LABCLIA [id number] [place] [address] [place] Base deficit (BldA) [Moles/Vol] -2 mmol/L Normal -2-0 [facility] Comment on above: Order Comment: Speci men Type: ARTERIAL BLOOD SPECIMENOrdering Facility: [facility] Address: [address] [place] [address] Performed By: #### A LLBG ####[facility] LABIA [id number] [place] [address] [place] Body temperature 98.6 [degF] Normal [facility] Comment on above: Order Comment: Speci men Type: ARTERIAL BLOOD SPECIMENOrdering Facility: [facility] Address: [address] [place] [address] Performed By: #### A LLBG ####[facility] LABCLIA [id number] [place] [address] [place] Calcium.ionized (Bld) [Mass/Vol] 1.22 mmol/L Normal 1.08-1.30 [facility] Comment on above: Order Comment: Speci men Type: ARTERIAL BLOOD SPECIMENOrdering Facility: [facility] Address: [address] [place] [address] Performed By: #### A LLBG ####[facility] LABCLIA [id number] [place] [address] [place] Calcium.ionized adjusted to pH 7.4 (BldA) [Moles/Vol] 1.17 mmol/L Normal 1.08-1.30 [facility] Comment on above: Order Comment: Speci men Type: ARTERIAL BLOOD SPECIMENOrdering Facility: [facility] Address: [address] [place] [address] Performed By: #### A LLBG ####[facility] LABCLIA [id number] [place] [address] [place] Carboxyhemoglobin (BldA) [Mass fraction] 0.4 % Normal 0.0-2.0 [facility] Comment on above: Order Comment: Speci men Type: ARTERIAL BLOOD SPECIMENOrdering Facility: [facility] Address: [address] [place] [address] Result Comment: Carb oxyhemoglobin Reference Range for Smokers: 2.0-8.0% Performed By: #### A LLBG ####[facility] LABCLIA [id number] [place] [address] [place] CO2 (Bld) [Partial pressure] 49 mm Hg High 36-46 [facility] Comment on above: Order Comment: Speci men Type: ARTERIAL BLOOD SPECIMENOrdering Facility: [facility] Address: [address] [place] [address] Performed By: #### A LLBG ####[facility] LABCLIA [id number] [place] [address] [place] Glucose [Mass/Vol] 130 mg/dL High 60-105 [facility] Comment on above: Order Comment: Speci men Type: ARTERIAL BLOOD SPECIMENOrdering Facility: [facility] Address: [address] [place] [address] Performed By: #### A LLBG ####[facility] LABCLIA [id number] [place] [address] [place] HCO3 (Bld) [Moles/Vol] 24 mmol/L Normal 22-26 [facility] Comment on above: Order Comment: Speci men Type: ARTERIAL BLOOD SPECIMENOrdering Facility: [facility] Address: [address] [place] [address] Performed By: #### A LLBG ####[facility] LABCLIA [id number] [place] [address] [place] Hematocrit (Bld) [Volume fraction] 36.2 % Normal 36.0-46.0 [facility] Comment on above: Order Comment: Speci men Type: ARTERIAL BLOOD SPECIMENOrdering Facility: [facility] Address: [address] [place] [address] Performed By: #### A LLBG ####[facility] LABCLIA [id number] [place] [address] [place] Hemoglobin (Bld) [Mass/Vol] 11.7 g/dL Normal 11.5-15.5 [facility] Comment on above: Order Comment: Speci men Type: ARTERIAL BLOOD SPECIMENOrdering Facility: [facility] Address: [address] [place] [address] Performed By: #### A LLBG ####[facility] LABCLIA [id number] [place] [address] [place] Lactate [Moles/Vol] 0.5 mmol/L Normal 0.5-2.2 [facility] Comment on above: Order Comment: Speci men Type: ARTERIAL BLOOD SPECIMENOrdering Facility: [facility] Address: [address] [place] [address] Performed By: #### A LLBG ####[facility] LABIA [id number] [place] [address] [place] Methemoglobin (Bld) [Mass fraction] 0.9 % Normal 0.0-1.5 [facility] Comment on above: Order Comment: Speci men Type: ARTERIAL BLOOD SPECIMENOrdering Facility: [facility] Address: [address] [place] [address] Performed By: #### A LLBG ####[facility] LABIA [id number] [place] [address] [place] O2 THERAPY NC = Nasal Cannula Normal [facility] Comment on above: Order Comment: Speci men Type: ARTERIAL BLOOD SPECIMENOrdering Facility: [facility] Address: [address] [place] [address] Performed By: #### A LLBG ####[facility] LABIA [id number] [place] [address] [place] Oxygen (Bld) [Partial pressure] 188 mm Hg High 85-95 [facility] Comment on above: Order Comment: Speci men Type: ARTERIAL BLOOD SPECIMENOrdering Facility: [facility] Address: [address] [place], [place] [id number] Performed By: #### A LLBG ####[facility] LABIA [id number] [place] [id number] [place] Oxyhemoglobin (BldA) [Mass fraction] 98 % Normal 95-98 [facility] Comment on above: Order Comment: Speci men Type: ARTERIAL BLOOD SPECIMENOrdering Facility: [facility] Address: [address] [place] [address] Performed By: #### A LLBG ####[facility] LABCLIA [id number] [place] [address] [place] pH (Bld) 7.32 [pH] Low 7.35-7.45 [facility] Comment on above: Order Comment: Speci men Type: ARTERIAL BLOOD SPECIMENOrdering Facility: [facility] Address: [address] [place] [address] Performed By: #### A LLBG ####[facility] LABCLIA [id number] [place] [address] [place] Potassium [Moles/Vol] 4.6 mmol/L Normal 3.5-5.0 [facility] Comment on above: Order Comment: Speci men Type: ARTERIAL BLOOD SPECIMENOrdering Facility: [facility] Address: [address] [place] [address] Performed By: #### A LLBG ####[facility] LABCLIA [id number] [place] [address] [place] Sodium [Moles/Vol] 136 mmol/L Normal 136-144 [facility] Comment on above: Order Comment: Speci men Type: ARTERIAL BLOOD SPECIMENOrdering Facility: [facility] Address: [address] [place] [address] Performed By: #### A LLBG ####[facility] LABCLIA [id number] [place] [address] [place] Base deficit (BldA) [Moles/Vol] -2 mmol/L Normal -2-0 [facility] Comment on above: Order Comment: Speci men Type: ARTERIAL BLOOD SPECIMENOrdering Facility: [facility] Address: [address] [place] [address] Performed By: #### A LLBG ####[facility] LABCLIA [id number] [place] [address] [place] Body temperature 98.6 [degF] Normal [facility] Comment on above: Order Comment: Speci men Type: ARTERIAL BLOOD SPECIMENOrdering Facility: [facility] Address: [address] [place] [address] Performed By: #### A LLBG ####[facility] LABCLIA [id number] [place] [address] [place] Calcium.ionized (Bld) [Mass/Vol] 1.23 mmol/L Normal 1.08-1.30 [facility] Comment on above: Order Comment: Speci men Type: ARTERIAL BLOOD SPECIMENOrdering Facility: [facility] Address: [address] [place] [address] Performed By: #### A LLBG ####[facility] LABCLIA [id number] [place] [address] [place] Calcium.ionized adjusted to pH 7.4 (BldA) [Moles/Vol] 1.18 mmol/L Normal 1.08-1.30 [facility] Comment on above: Order Comment: Speci men Type: ARTERIAL BLOOD SPECIMENOrdering Facility: [facility] Address: [address] [place] [address] Performed By: #### A LLBG ####[facility] LABCLIA [id number] [place] [address] [place] Carboxyhemoglobin (BldA) [Mass fraction] 1.3 % Normal 0.0-2.0 [facility] Comment on above: Order Comment: Speci men Type: ARTERIAL BLOOD SPECIMENOrdering Facility: [facility] Address: [address] [place] [address] Result Comment: Carb oxyhemoglobin Reference Range for Smokers: 2.0-8.0% Performed By: #### A LLBG ####[facility] LABCLIA [id number] [place] [address] [place] CO2 (Bld) [Partial pressure] 46 mm Hg Normal 36-46 [facility] Comment on above: Order Comment: Speci men Type: ARTERIAL BLOOD SPECIMENOrdering Facility: [facility] Address: [address] [place] [address] Performed By: #### A LLBG ####[facility] LABCLIA [id number] [place] [address] [place] FIO2 40 % Normal [facility] Comment on above: Order Comment: Speci men Type: ARTERIAL BLOOD SPECIMENOrdering Facility: [facility] Address: [address] [place] [address] Performed By: #### A LLBG ####[facility] LABCLIA [id number] [place] [address] [place] Glucose [Mass/Vol] 144 mg/dL High 60-105 [facility] Comment on above: Order Comment: Speci men Type: ARTERIAL BLOOD SPECIMENOrdering Facility: [facility] Address: [address] [place] [address] Performed By: #### A LLBG ####[facility] LABCLIA [id number] [place] [address] [place] HCO3 (Bld) [Moles/Vol] 24 mmol/L Normal 22-26 [facility] Comment on above: Order Comment: Speci men Type: ARTERIAL BLOOD SPECIMENOrdering Facility: [facility] Address: [address] [place] [address] Performed By: #### A LLBG ####[facility] LABCLIA [id number] [place] [address] [place] Hematocrit (Bld) [Volume fraction] 35.7 % Low 36.0-46.0 [facility] Comment on above: Order Comment: Speci men Type: ARTERIAL BLOOD SPECIMENOrdering Facility: [facility] Address: [address] [place] [address] Performed By: #### A LLBG ####[facility] LABCLIA [id number] [place] [address] [place] Hemoglobin (Bld) [Mass/Vol] 11.6 g/dL Normal 11.5-15.5 [facility] Comment on above: Order Comment: Speci men Type: ARTERIAL BLOOD SPECIMENOrdering Facility: [facility] Address: [address] [place] [address] Performed By: #### A LLBG ####[facility] LABIA [id number] [place] [address] [place] Lactate [Moles/Vol] 0.6 mmol/L Normal 0.5-2.2 [facility] Comment on above: Order Comment: Speci men Type: ARTERIAL BLOOD SPECIMENOrdering Facility: [facility] Address: [address] [place] [address] Performed By: #### A LLBG ####[facility] [id number] [place] [address] [place] Methemoglobin (Bld) [Mass fraction] 0.7 % Normal 0.0-1.5 [facility] Comment on above: Order Comment: Speci men Type: ARTERIAL BLOOD SPECIMENOrdering Facility: [facility] Address: [address] [place] [address] Performed By: #### A LLBG ####[facility] [id number] [place] [address] [place] O2 THERAPY Positive Normal [facility] Comment on above: Order Comment: Speci men Type: ARTERIAL BLOOD SPECIMENOrdering Facility: [facility] Address: [address] [place] [address] Performed By: #### A LLBG ####[facility] LABIA [id number] [place] [address] [place] Oxygen (Bld) [Partial pressure] 155 mm Hg High 85-95 [facility] Comment on above: Order Comment: Speci men Type: ARTERIAL BLOOD SPECIMENOrdering Facility: [facility] Address: [address] [place] [address] Performed By: #### A LLBG ####[facility] LABCLIA [id number] [place] [address] [place] Oxyhemoglobin (BldA) [Mass fraction] 97 % Normal 95-98 [facility] Comment on above: Order Comment: Speci men Type: ARTERIAL BLOOD SPECIMENOrdering Facility: [facility] Address: [address] [place] [address] Performed By: #### A LLBG ####[facility] LABIA [id number] [place] [address] [place] pH (Bld) 7.33 [pH] Low 7.35-7.45 [facility] Comment on above: Order Comment: Speci men Type: ARTERIAL BLOOD SPECIMENOrdering Facility: [facility] Address: [address] [place] [address] Performed By: #### A LLBG ####[facility] LABIA [id number] [place] [address] [place] PO2 / FIO2 RATIO 388 mmHg Normal >300 [facility] Comment on above: Order Comment: Speci men Type: ARTERIAL BLOOD SPECIMENOrdering Facility: [facility] Address: [address] [place] [address] Performed By: #### A LLBG ####[facility] LABCLIA [id number] [place] [address] [place] Potassium [Moles/Vol] 4.5 mmol/L Normal 3.5-5.0 [facility] Comment on above: Order Comment: Speci men Type: ARTERIAL BLOOD SPECIMENOrdering Facility: [facility] Address: [address] [place] [address] Performed By: #### A LLBG ####[facility] LABIA [id number] [place] [address] [place] Sodium [Moles/Vol] 136 mmol/L Normal 136-144 [facility] Comment on above: Order Comment: Speci men Type: ARTERIAL BLOOD SPECIMENOrdering Facility: [facility] Address: [address] [place] [address] Performed By: #### A LLBG ####[facility] LABCLIA [id number] [place] [address] [place] Base deficit (BldA) [Moles/Vol] -2 mmol/L Normal -2-0 [facility] Comment on above: Order Comment: Speci men Type: ARTERIAL BLOOD SPECIMENOrdering Facility: [facility] Address: [address] [place] [address] Performed By: #### A LLBG ####[facility] LABCLIA [id number] [place] [address] [place] Body temperature 95.54 [degF] Normal [facility] Comment on above: Order Comment: Speci men Type: ARTERIAL BLOOD SPECIMENOrdering Facility: [facility] Address: [address] [place] [address] Performed By: #### A LLBG ####[facility] LABCLIA [id number] [place] [address] [place] Calcium.ionized (Bld) [Mass/Vol] 1.19 mmol/L Normal 1.08-1.30 [facility] Comment on above: Order Comment: Speci men Type: ARTERIAL BLOOD SPECIMENOrdering Facility: [facility] Address: [address] [place] [address] Performed By: #### A LLBG ####[facility] LABCLIA [id number] [place] [address] [place] Calcium.ionized adjusted to pH 7.4 (BldA) [Moles/Vol] 1.18 mmol/L Normal 1.08-1.30 [facility] Comment on above: Order Comment: Speci men Type: ARTERIAL BLOOD SPECIMENOrdering Facility: [facility] Address: [address] [place] [address] Performed By: #### A LLBG ####[facility] LABCLIA [id number] [place] [address] [place] Carboxyhemoglobin (BldA) [Mass fraction] 1.0 % Normal 0.0-2.0 [facility] Comment on above: Order Comment: Speci men Type: ARTERIAL BLOOD SPECIMENOrdering Facility: [facility] Address: [address] [place] [address] Result Comment: Carb oxyhemoglobin Reference Range for Smokers: 2.0-8.0% Performed By: #### A LLBG ####[facility] LABCLIA [id number] [place] [address] [place] CO2 (Bld) [Partial pressure] 37 mm Hg Normal 36-46 [facility] Comment on above: Order Comment: Speci men Type: ARTERIAL BLOOD SPECIMENOrdering Facility: [facility] Address: [address] [place] [address] Performed By: #### A LLBG ####[facility] LABCLIA [id number] [place] [address] [place] CO2 adjusted to patient's actual temperature (Bld) [Partial pressure] 34 mmHg Low 36-46 [facility] Comment on above: Order Comment: Speci men Type: ARTERIAL BLOOD SPECIMENOrdering Facility: [facility] Address: [address] [place] [address] Performed By: #### A LLBG ####[facility] LABCLIA [id number] [place] [address] [place] FIO2 40 % Normal [facility] Comment on above: Order Comment: Speci men Type: ARTERIAL BLOOD SPECIMENOrdering Facility: [facility] [facility] Address: [address] [place] [address] Performed By: #### A LLBG ####[facility] LABCLIA [id number] [place] [address] [place] Glucose [Mass/Vol] 127 mg/dL High 60-105 [facility] Comment on above: Order Comment: Speci men Type: ARTERIAL BLOOD SPECIMENOrdering Facility: [facility] Address: [address] [place] [address] Performed By: #### A LLBG ####[facility] LABCLIA [id number] [place] [address] [place] HCO3 (Bld) [Moles/Vol] 22 mmol/L Normal 22-26 [facility] Comment on above: Order Comment: Speci men Type: ARTERIAL BLOOD SPECIMENOrdering Facility: [facility] Address: [address] [place] [address] Performed By: #### A LLBG ####[facility] LABCLIA [id number] [place] [address] [place] Hematocrit (Bld) [Volume fraction] 32.3 % Low 36.0-46.0 [facility] Comment on above: Order Comment: Speci men Type: ARTERIAL BLOOD SPECIMENOrdering Facility: [facility] Address: [address] [place] [address] Performed By: #### A LLBG ####[facility] LABCLIA [id number] [place] [address] [place] Hemoglobin (Bld) [Mass/Vol] 10.5 g/dL Low 11.5-15.5 [facility] Comment on above: Order Comment: Speci men Type: ARTERIAL BLOOD SPECIMENOrdering Facility: [facility] Address: [address] [place] [address] Performed By: #### A LLBG ####[facility] LABCLIA [id number] [place] [address] [place] Lactate [Moles/Vol] 1.7 mmol/L Normal 0.5-2.2 [facility] Comment on above: Order Comment: Speci men Type: ARTERIAL BLOOD SPECIMENOrdering Facility: [facility] Address: [address] [id number] Performed By: #### A LLBG ####[facility] LABCLIA [id number] [place] [address] [place] Methemoglobin (Bld) [Mass fraction] 0.5 % Normal 0.0-1.5 [facility] Comment on above: Order Comment: Speci men Type: ARTERIAL BLOOD SPECIMENOrdering Facility: [facility] Address: [address] [id number] Performed By: #### A LLBG ####[facility] LABCLIA [id number] [place] [address] [place] O2 THERAPY VENT=Ventilator Normal [facility] Comment on above: Order Comment: Speci men Type: ARTERIAL BLOOD SPECIMENOrdering Facility: [facility] Address: [address] [place], [place] [id number] Performed By: #### A LLBG ####[facility] LABCLIA [id number] [place] [id number] [place] Oxygen (Bld) [Partial pressure] 186 mm Hg High 85-95 [facility] Comment on above: Order Comment: Speci men Type: ARTERIAL BLOOD SPECIMENOrdering Facility: [facility] Address: [address] [place] [address] Performed By: #### A LLBG ####[facility] LABCLIA [id number] [address] [address] [place] Oxygen adjusted to patient's actual temperature (Bld) [Partial pressure] 179 mmHg High 85-95 [facility] Comment on above: Order Comment: Speci men Type: ARTERIAL BLOOD SPECIMENOrdering Facility: [facility] Address: [address] [id number] Performed By: #### A LLBG ####[facility] LABCLIA [id number] [place] [id number] [place] Oxyhemoglobin (BldA) [Mass fraction] 98 % Normal 95-98 [facility] Comment on above: Order Comment: Speci men Type: ARTERIAL BLOOD SPECIMENOrdering Facility: [facility] Address: [address] [place] [address] Performed By: #### A LLBG ####[facility] LABCLIA [id number] [place] [address] [place] pH (Bld) 7.39 [pH] Normal 7.35-7.45 [facility] Comment on above: Order Comment: Speci men Type: ARTERIAL BLOOD SPECIMENOrdering Facility: [facility] Address: [address] [place] [address] Performed By: #### A LLBG ####[facility] LABCLIA [id number] [address] [place] pH adjusted to patient's actual temperature (Bld) 7.42 Normal 7.35-7.45 [facility] Comment on above: Order Comment: Speci men Type: ARTERIAL BLOOD SPECIMENOrdering Facility: [facility] Address: [address] [place] [address] Performed By: #### A LLBG ####[facility] LABCLIA [id number] [place] [address] [place] PO2 / FIO2 RATIO 465 mmHg Normal >300 [facility] Comment on above: Order Comment: Speci men Type: ARTERIAL BLOOD SPECIMENOrdering Facility: [facility] Address: [address] [place] [address] Performed By: #### A LLBG ####[facility] LABCLIA [id number] [place] [address] [place] Potassium [Moles/Vol] 4.0 mmol/L Normal 3.5-5.0 [facility] Comment on above: Order Comment: Speci men Type: ARTERIAL BLOOD SPECIMENOrdering Facility: [facility] Address: [address] [place] [address] Performed By: #### A LLBG ####[facility] LABCLIA [id number] [place] [address] [place] Sodium [Moles/Vol] 136 mmol/L Normal 136-144 [facility] Comment on above: Order Comment: Speci men Type: ARTERIAL BLOOD SPECIMENOrdering Facility: [facility] Address: [address] [place] [address] Performed By: #### A LLBG ####[facility] LABCLIA [id number] [place] [address] [place] Base deficit (BldA) [Moles/Vol] -1 mmol/L Normal -2-0 [facility] Comment on above: Order Comment: Speci men Type: ARTERIAL BLOOD SPECIMENOrdering Facility: [facility] Address: [address] [place] [address] Performed By: #### A LLBG ####[facility] LABIA [id number] [place] [address] [place] Calcium.ionized (Bld) [Mass/Vol] 1.15 mmol/L Normal 1.08-1.30 [facility] Comment on above: Order Comment: Speci men Type: ARTERIAL BLOOD SPECIMENOrdering Facility: [facility] Address: [address] [place] [address] Performed By: #### A LLBG ####[facility] LABIA [id number] [place] [address] [place] Calcium.ionized adjusted to pH 7.4 (BldA) [Moles/Vol] 1.16 mmol/L Normal 1.08-1.30 [facility] Comment on above: Order Comment: Speci men Type: ARTERIAL BLOOD SPECIMENOrdering Facility: [facility] Address: [address] [place] [address] Performed By: #### A LLBG ####[facility] LABIA [id number] [place] [address] [place] Carboxyhemoglobin (BldA) [Mass fraction] 1.5 % Normal 0.0-2.0 [facility] Comment on above: Order Comment: Speci men Type: ARTERIAL BLOOD SPECIMENOrdering Facility: [facility] Address: [address] [place] [address] Result Comment: Carb oxyhemoglobin Reference Range for Smokers: 2.0-8.0% Performed By: #### A LLBG ####[facility] LABCLIA [id number] [place] [address] [place] CO2 (Bld) [Partial pressure] 38 mm Hg Normal 36-46 [facility] Comment on above: Order Comment: Speci men Type: ARTERIAL BLOOD SPECIMENOrdering Facility: [facility] Address: [address] [place] [address] Performed By: #### A LLBG ####[facility] LABCLIA [id number] [address] [place] CO2 adjusted to patient's actual temperature (Bld) [Partial pressure] 38 mmHg Normal 36-46 [facility] Comment on above: Order Comment: Speci men Type: ARTERIAL BLOOD SPECIMENOrdering Facility: [facility] Address: [address] [place] [address] Performed By: #### A LLBG ####[facility] LABCLIA [id number] [place] [address] [place] Glucose [Mass/Vol] 182 mg/dL High 60-105 [facility] Comment on above: Order Comment: Speci men Type: ARTERIAL BLOOD SPECIMENOrdering Facility: [facility] Address: [address] [place] [address] Performed By: #### A LLBG ####[facility] LABCLIA [id number] [place] [address] [place] HCO3 (Bld) [Moles/Vol] 23 mmol/L Normal 22-26 [facility] Comment on above: Order Comment: Speci men Type: ARTERIAL BLOOD SPECIMENOrdering Facility: [facility] Address: [address] [place] [address] Performed By: #### A LLBG ####[facility] LABCLIA [id number] [place] [address] [place] Hematocrit (Bld) [Volume fraction] 29.4 % Low 36.0-46.0 [facility] Comment on above: Order Comment: Speci men Type: ARTERIAL BLOOD SPECIMENOrdering Facility: [facility] Address: [address] [place] [address] Performed By: #### A LLBG ####[facility] LABCLIA [id number] [place] [address] [place] Hemoglobin (Bld) [Mass/Vol] 9.5 g/dL Low 11.5-15.5 [facility] Comment on above: Order Comment: Speci men Type: ARTERIAL BLOOD SPECIMENOrdering Facility: [facility] Address: [address] [place] [address] Performed By: #### A LLBG ####[facility] LABCLIA [id number] [place] [address] [place] Lactate [Moles/Vol] 1.2 mmol/L Normal 0.5-2.2 [facility] Comment on above: Order Comment: Speci men Type: ARTERIAL BLOOD SPECIMENOrdering Facility: [facility] Address: [address] [place] [address] Performed By: #### A LLBG ####[facility] LABCLIA [id number] [place] [address] [place] Methemoglobin (Bld) [Mass fraction] 1.2 % Normal 0.0-1.5 [facility] Comment on above: Order Comment: Speci men Type: ARTERIAL BLOOD SPECIMENOrdering Facility: [facility] Address: [address] [place] [address] Performed By: #### A LLBG ####[facility] LABCLIA [id number] [address] [address] [place] Oxygen (Bld) [Partial pressure] 269 mm Hg High 85-95 [facility] Comment on above: Order Comment: Speci men Type: ARTERIAL BLOOD SPECIMENOrdering Facility: [facility] Address: [address] [place], [place] [id number] Performed By: #### A LLBG ####[facility] LABCLIA [id number] [place] [address] [place] Oxygen adjusted to patient's actual temperature (Bld) [Partial pressure] 269 mmHg High 85-95 [facility] Comment on above: Order Comment: Speci men Type: ARTERIAL BLOOD SPECIMENOrdering Facility: [facility] Address: [address] [place] [address] Performed By: #### A LLBG ####[facility] LABCLIA [id number] [place] [address] [place] Oxyhemoglobin (BldA) [Mass fraction] 97 % Normal 95-98 [facility] Comment on above: Order Comment: Speci men Type: ARTERIAL BLOOD SPECIMENOrdering Facility: [facility] Address: [address] [place] [address] Performed By: #### A LLBG ####[facility] LABCLIA [id number] [place] [address] [place] pH (Bld) 7.40 [pH] Normal 7.35-7.45 [facility] Comment on above: Order Comment: Speci men Type: ARTERIAL BLOOD SPECIMENOrdering Facility: [facility] Address: [address] [place], [place] [id number] Performed By: #### A LLBG ####[facility] LABCLIA [id number] [place] [id number] [place] pH adjusted to patient's actual temperature (Bld) 7.40 Normal 7.35-7.45 [facility] Comment on above: Order Comment: Speci men Type: ARTERIAL BLOOD SPECIMENOrdering Facility: [facility] Address: [address] [place] [address] Performed By: #### A LLBG ####[facility] LABCLIA [id number] [place] [address] [place] Potassium [Moles/Vol] 4.1 mmol/L Normal 3.5-5.0 [facility] Comment on above: Order Comment: Speci men Type: ARTERIAL BLOOD SPECIMENOrdering Facility: [facility] Address: [address] [place] [address] Performed By: #### A LLBG ####[facility] LABIA [id number] [place] [address] [place] Sodium [Moles/Vol] 135 mmol/L Low 136-144 [facility] Comment on above: Order Comment: Speci men Type: ARTERIAL BLOOD SPECIMENOrdering Facility: [facility] Address: [address] [place] [address] Performed By: #### A LLBG ####[facility] LABCLIA [id number] [place] [address] [place] Base deficit (BldA) [Moles/Vol] -1 mmol/L Normal -2-0 [facility] Comment on above: Order Comment: Speci men Type: ARTERIAL BLOOD SPECIMENOrdering Facility: [facility] Address: [address] [place] [address] Performed By: #### A LLBG ####[facility] LABCLIA [id number] [place] [address] [place] Calcium.ionized (Bld) [Mass/Vol] 1.16 mmol/L Normal 1.08-1.30 [facility] Comment on above: Order Comment: Speci men Type: ARTERIAL BLOOD SPECIMENOrdering Facility: [facility] Address: [address] [place] [address] Performed By: #### A LLBG ####[facility] LABCLIA [id number] [place] [address] [place] Order Comment: Speci men Type: VENOUS BLOOD SPECIMENOrdering Facility: [facility] Address: [address] [place] [address] Performed By: #### 2 4344-4 ####[facility] LABCLIA [id number] [place] [address] [place] Calcium.ionized adjusted to pH 7.4 (BldA) [Moles/Vol] 1.16 mmol/L Normal 1.08-1.30 [facility] Comment on above: Order Comment: Speci men Type: ARTERIAL BLOOD SPECIMENOrdering Facility: [facility] Address: [address] [place] [address] Performed By: #### A LLBG ####[facility] LABCLIA [id number] [place] [address] [place] Carboxyhemoglobin (BldA) [Mass fraction] 1.4 % Normal 0.0-2.0 [facility] Comment on above: Order Comment: Speci men Type: ARTERIAL BLOOD SPECIMENOrdering Facility: [facility] Address: [address] [place] [address] Result Comment: Carb oxyhemoglobin Reference Range for Smokers: 2.0-8.0% Performed By: #### A LLBG ####[facility] LABCLIA [id number] [place] [address] [place] CO2 (Bld) [Partial pressure] 40 mm Hg Normal 36-46 [facility] Comment on above: Order Comment: Speci men Type: ARTERIAL BLOOD SPECIMENOrdering Facility: [facility] Address: [address] [place] [address] Performed By: #### A LLBG ####[facility] LABCLIA [id number] [place] [address] [place] CO2 adjusted to patient's actual temperature (Bld) [Partial pressure] 40 mmHg Normal 36-46 [facility] Comment on above: Order Comment: Speci men Type: ARTERIAL BLOOD SPECIMENOrdering Facility: [facility] Address: [address] [place] [address] Performed By: #### A LLBG ####[facility] LABCLIA [id number] [address] [address] [place] Glucose [Mass/Vol] 191 mg/dL High 60-105 [facility] Comment on above: Order Comment: Speci men Type: ARTERIAL BLOOD SPECIMENOrdering Facility: [facility] Address: [address] [place] [address] Performed By: #### A LLBG ####[facility] LABCLIA [id number] [place] [address] [place] Order Comment: Speci men Type: VENOUS BLOOD SPECIMENOrdering Facility: [facility] Address: [address] [place] [address] Performed By: #### 2 4344-4 ####[facility] LABCLIA [id number] [place] [address] [place] HCO3 (Bld) [Moles/Vol] 23 mmol/L Normal 22-26 [facility] Comment on above: Order Comment: Speci men Type: ARTERIAL BLOOD SPECIMENOrdering Facility: [facility] Address: [address] [place] [address] Performed By: #### A LLBG ####[facility] LABCLIA [id number] [place] [id number] [place] Hematocrit (Bld) [Volume fraction] 28.9 % Low 36.0-46.0 [facility] Comment on above: Order Comment: Speci men Type: ARTERIAL BLOOD SPECIMENOrdering Facility: [facility] Address: [address] [place] [address] Performed By: #### A LLBG ####[facility] LABCLIA [id number] [place] [address] [place] Hemoglobin (Bld) [Mass/Vol] 9.3 g/dL Low 11.5-15.5 [facility] Comment on above: Order Comment: Speci men Type: ARTERIAL BLOOD SPECIMENOrdering Facility: [facility] Address: [address] [place] [address] Performed By: #### A LLBG ####[facility] LABCLIA [id number] [place] [address] [place] Lactate [Moles/Vol] 1.0 mmol/L Normal 0.5-2.2 [facility] Comment on above: Order Comment: Speci men Type: ARTERIAL BLOOD SPECIMENOrdering Facility: [facility] Address: [address] [place] [address] Performed By: #### A LLBG ####[facility] LABCLIA [id number] [place] [address] [place] Order Comment: Speci men Type: VENOUS BLOOD SPECIMENOrdering Facility: [facility] Address: [address] [place] [address] Performed By: #### 2 4344-4 ####[facility] LABCLIA [id number] [place] [address] [place] Methemoglobin (Bld) [Mass fraction] 0.7 % Normal 0.0-1.5 [facility] Comment on above: Order Comment: Speci men Type: ARTERIAL BLOOD SPECIMENOrdering Facility: [facility] Address: [address] [place] [address] Performed By: #### A LLBG ####[facility] LABCLIA [id number] [place] [address] [place] Oxygen (Bld) [Partial pressure] 342 mm Hg High 85-95 [facility] Comment on above: Order Comment: Speci men Type: ARTERIAL BLOOD SPECIMENOrdering Facility: [facility] Address: [address] [place] [address] Performed By: #### A LLBG ####[facility] LABCLIA [id number] [place] [address] [place] Oxygen adjusted to patient's actual temperature (Bld) [Partial pressure] 342 mmHg High 85-95 [facility] Comment on above: Order Comment: Speci men Type: ARTERIAL BLOOD SPECIMENOrdering Facility: [facility] Address: [address] [place] [address] Performed By: #### A LLBG ####[facility] LABCLIA [id number] [place] [address] [place] Oxyhemoglobin (BldA) [Mass fraction] 98 % Normal 95-98 [facility] Comment on above: Order Comment: Speci men Type: ARTERIAL BLOOD SPECIMENOrdering Facility: [facility] Address: [address] [place] [address] Performed By: #### A LLBG ####[facility] LABIA [id number] [place] [address] [place] pH (Bld) 7.39 [pH] Normal 7.35-7.45 [facility] Comment on above: Order Comment: Speci men Type: ARTERIAL BLOOD SPECIMENOrdering Facility: [facility] Address: [address] [place] [address] Performed By: #### A LLBG ####[facility] LABIA [id number] [place] [address] [place] pH adjusted to patient's actual temperature (Bld) 7.39 Normal 7.35-7.45 [facility] Comment on above: Order Comment: Speci men Type: ARTERIAL BLOOD SPECIMENOrdering Facility: [facility] Address: [address] [place] [address] Performed By: #### A LLBG ####[facility] LABIA [id number] [place] [address] [place] Potassium [Moles/Vol] 4.8 mmol/L Normal 3.5-5.0 [facility] Comment on above: Order Comment: Speci men Type: ARTERIAL BLOOD SPECIMENOrdering Facility: [facility] Address: [address] [place] [address] Performed By: #### A LLBG ####[facility] LABCLIA [id number] [place] [address] [place] Sodium [Moles/Vol] 136 mmol/L Normal 136-144 [facility] Comment on above: Order Comment: Speci men Type: ARTERIAL BLOOD SPECIMENOrdering Facility: [facility] Address: [address] [place] [address] Performed By: #### A LLBG ####[facility] LABCLIA [id number] [place] [address] [place] Order Comment: Speci men Type: VENOUS BLOOD SPECIMENOrdering Facility: [facility] Address: [address] [place] [address] Performed By: #### 2 4344-4 ####[facility] LABCLIA [id number] [place] [address] [place] Base excess Calc (Bld) [Moles/Vol] 1 mmol/L Normal 0-2 [facility] Comment on above: Order Comment: Speci men Type: ARTERIAL BLOOD SPECIMENOrdering Facility: [facility] Address: [address] [place] [address] Performed By: #### A LLBG ####[facility] LABCLIA [id number] [place] [address] [place] Calcium.ionized (Bld) [Mass/Vol] 1.24 mmol/L Normal 1.08-1.30 [facility] Comment on above: Order Comment: Speci men Type: ARTERIAL BLOOD SPECIMENOrdering Facility: [facility] Address: [address] [place] [address] Performed By: #### A LLBG ####[facility] LABCLIA [id number] [place] [address] [place] Calcium.ionized adjusted to pH 7.4 (BldA) [Moles/Vol] 1.24 mmol/L Normal 1.08-1.30 [facility] Comment on above: Order Comment: Speci men Type: ARTERIAL BLOOD SPECIMENOrdering Facility: [facility] Address: [address] [place] [address] Performed By: #### A LLBG ####[facility] LABCLIA [id number] [place] [address] [place] Carboxyhemoglobin (BldA) [Mass fraction] 1.5 % Normal 0.0-2.0 [facility] Comment on above: Order Comment: Speci men Type: ARTERIAL BLOOD SPECIMENOrdering Facility: [facility] Address: [address] [place] [address] Result Comment: Carb oxyhemoglobin Reference Range for Smokers: 2.0-8.0% Performed By: #### A LLBG ####[facility] LABCLIA [id number] [place] [address] [place] CO2 (Bld) [Partial pressure] 41 mm Hg Normal 36-46 [facility] Comment on above: Order Comment: Speci men Type: ARTERIAL BLOOD SPECIMENOrdering Facility: [facility] Address: [address] [place] [address] Performed By: #### A LLBG ####[facility] LABCLIA [id number] [place] [address] [place] CO2 adjusted to patient's actual temperature (Bld) [Partial pressure] 41 mmHg Normal 36-46 [facility] Comment on above: Order Comment: Speci men Type: ARTERIAL BLOOD SPECIMENOrdering Facility: [facility] Address: [address] [place] [address] Performed By: #### A LLBG ####[facility] LABCLIA [id number] [place] [address] [place] Glucose [Mass/Vol] 103 mg/dL Normal 60-105 [facility] Comment on above: Order Comment: Speci men Type: ARTERIAL BLOOD SPECIMENOrdering Facility: [facility] Address: [address] [place] [address] Performed By: #### A LLBG ####[facility] LABCLIA [id number] [place] [address] [place] HCO3 (Bld) [Moles/Vol] 25 mmol/L Normal 22-26 [facility] Comment on above: Order Comment: Speci men Type: ARTERIAL BLOOD SPECIMENOrdering Facility: [facility] Address: [address] [place] [address] Performed By: #### A LLBG ####[facility] LABCLIA [id number] [place] [address] [place] Hematocrit (Bld) [Volume fraction] 35.1 % Low 36.0-46.0 [facility] Comment on above: Order Comment: Speci men Type: ARTERIAL BLOOD SPECIMENOrdering Facility: [facility] Address: [address] [place] [address] Performed By: #### A LLBG ####[facility] LABCLIA [id number] [place] [address] [place] Hemoglobin (Bld) [Mass/Vol] 11.4 g/dL Low 11.5-15.5 [facility] Comment on above: Order Comment: Speci men Type: ARTERIAL BLOOD SPECIMENOrdering Facility: [facility] Address: [address] [place] [address] Performed By: #### A LLBG ####[facility] LABCLIA [id number] [place] [address] [place] Lactate [Moles/Vol] 0.7 mmol/L Normal 0.5-2.2 [facility] Comment on above: Order Comment: Speci men Type: ARTERIAL BLOOD SPECIMENOrdering Facility: [facility] Address: [address] [place], [place] [address] Performed By: #### A LLBG ####[facility] LABCLIA [id number] [place] [address] [place] Methemoglobin (Bld) [Mass fraction] 0.3 % Normal 0.0-1.5 [facility] Comment on above: Order Comment: Speci men Type: ARTERIAL BLOOD SPECIMENOrdering Facility: [facility] Address: [address] [place] [address] Performed By: #### A LLBG ####[facility] LABCLIA [id number] [place] [address] [place] Oxygen (Bld) [Partial pressure] 121 mm Hg High 85-95 [facility] Comment on above: Order Comment: Speci men Type: ARTERIAL BLOOD SPECIMENOrdering Facility: [facility] Address: [address] [place] [address] Performed By: #### A LLBG ####[facility] LABCLIA [id number] [place] [address] [place] Oxygen adjusted to patient's actual temperature (Bld) [Partial pressure] 121 mmHg High 85-95 [facility] Comment on above: Order Comment: Speci men Type: ARTERIAL BLOOD SPECIMENOrdering Facility: [facility] Address: [address] [place] [address] Performed By: #### A LLBG ####[facility] LABCLIA [id number] [place] [id number] [place] Oxyhemoglobin (BldA) [Mass fraction] 97 % Normal 95-98 [facility] Comment on above: Order Comment: Speci men Type: ARTERIAL BLOOD SPECIMENOrdering Facility: [facility] Address: [address] [place] [address] Performed By: #### A LLBG ####[facility] LABCLIA [id number] [place] [id number] [place] pH (Bld) 7.41 [pH] Normal 7.35-7.45 [facility] Comment on above: Order Comment: Speci men Type: ARTERIAL BLOOD SPECIMENOrdering Facility: [facility] Address: [address] [place] [address] Performed By: #### A LLBG ####[facility] LABIA [id number] [place] [address] [place] pH adjusted to patient's actual temperature (Bld) 7.41 Normal 7.35-7.45 [facility] Comment on above: Order Comment: Speci men Type: ARTERIAL BLOOD SPECIMENOrdering Facility: [facility] Address: [address] [place] [address] Performed By: #### A LLBG ####[facility] [id number] [place] [address] [place] Potassium [Moles/Vol] 4.2 mmol/L Normal 3.5-5.0 [facility] Comment on above: Order Comment: Speci men Type: ARTERIAL BLOOD SPECIMENOrdering Facility: [facility] Address: [address] [place] [address] Performed By: #### A LLBG ####[facility] LABIA [id number] [place] [address] [place] Sodium [Moles/Vol] 137 mmol/L Normal 136-144 [facility] Comment on above: Order Comment: Speci men Type: ARTERIAL BLOOD SPECIMENOrdering Facility: [facility] Address: [address] [place] [address] Performed By: #### A LLBG ####[facility] [id number] [place] [id number] [place] [id number] 11-05-2023 ECG01 Normal [facility] Gas and Carbon monoxide pane l (BldV)on 11-05-2023 Base excess Calc (BldV) [Moles/Vol] 0 mmol/L Normal 0-2 [facility] Comment on above: Order Comment: Speci men Type: VENOUS BLOOD SPECIMENOrdering Facility: [facility] Address: [address] [place] [address] Performed By: #### 2 4344-4 ####[facility] LABIA [id number] [place] [address] [place] Calcium.ionized adjusted to pH 7.4 (BldA) [Moles/Vol] 1.12 mmol/L Normal 1.08-1.30 [facility] Comment on above: Order Comment: Speci men Type: VENOUS BLOOD SPECIMENOrdering Facility: [facility] Address: [address] [place] [address] Performed By: #### 2 4344-4 ####[facility] LABIA [id number] [place] [address] [place] Carboxyhemoglobin (BldV) [Mass fraction] 1.2 % Normal 0.0-2.0 [facility] Comment on above: Order Comment: Speci men Type: VENOUS BLOOD SPECIMENOrdering Facility: [facility] Address: [address] [place] [address] Result Comment: Carb oxyhemoglobin Reference Range for Smokers: 2.0-8.0% Performed By: #### 2 4344-4 ####[facility] LABIA [id number] [place] [address] [place] CO2 (BldV) [Partial pressure] 50 mm[Hg] Normal 42-55 [facility] Comment on above: Order Comment: Speci men Type: VENOUS BLOOD SPECIMENOrdering Facility: [facility] Address: [address] [place] [address] Performed By: #### 2 4344-4 ####[facility] LABIA [id number] [place] [address] [place] CO2 adjusted to patient's actual temperature (BldV) [Partial pressure] 50 mmHg Normal 42-55 [facility] Comment on above: Order Comment: Speci men Type: VENOUS BLOOD SPECIMENOrdering Facility: [facility] Address: [address] [place] [id number] Performed By: #### 2 4344-4 ####[facility] LABIA [id number] [place] [address] [place] HCO3 (Bld) [Moles/Vol] 26 mmol/L Normal 24-28 [facility] Comment on above: Order Comment: Speci men Type: VENOUS BLOOD SPECIMENOrdering Facility: [facility] Address: [address] [place] [address] Performed By: #### 2 4344-4 ####[facility] LABIA [id number] [place] [address] [place] Hematocrit (Bld) [Volume fraction] 29.5 % Low 36.0-46.0 [facility] Comment on above: Order Comment: Speci men Type: VENOUS BLOOD SPECIMENOrdering Facility: [facility] Address: [address] [place] [address] Performed By: #### 2 4344-4 ####[facility] LABIA [id number] [place] [address] [place] Hemoglobin (Bld) [Mass/Vol] 9.5 g/dL Low 11.5-15.5 [facility] Comment on above: Order Comment: Speci men Type: VENOUS BLOOD SPECIMENOrdering Facility: [facility] Address: [address] [place] [address] Performed By: #### 2 4344-4 ####[facility] LABIA [id number] [place] [address] [place] Methemoglobin (Bld) [Mass fraction] 1.4 % Normal 0.0-1.5 [facility] Comment on above: Order Comment: Speci men Type: VENOUS BLOOD SPECIMENOrdering Facility: [facility] Address: [address] [place], [place] [address] Performed By: #### 2 4344-4 ####[facility] LABCLIA [id number] [address] [address] [place] Oxygen (BldV) [Partial pressure] 52 mm[Hg] High 35-45 [facility] Comment on above: Order Comment: Speci men Type: VENOUS BLOOD SPECIMENOrdering Facility: [facility] Address: [address] [place], [place] [address] Performed By: #### 2 4344-4 ####[facility] LABCLIA [id number] [address] [address] [place] Oxygen adjusted to patient's actual temperature (BldV) [Partial pressure] 52 mmHg High 35-45 [facility] Comment on above: Order Comment: Speci men Type: VENOUS BLOOD SPECIMENOrdering Facility: [facility] Address: [address] [place], [place] [address] Performed By: #### 2 4344-4 ####[facility] LABCLIA [id number] [address] [address] [place] Oxygen saturation in Venous blood 84 % Normal 60-85 [facility] Comment on above: Order Comment: Speci men Type: VENOUS BLOOD SPECIMENOrdering Facility: [facility] Address: [address] [place], [place] [address] Performed By: #### 2 4344-4 ####[facility] LABCLIA [id number] [address] [address] [place] Oxyhemoglobin (BldV) [Mass fraction] 82 % Normal 60-85 [facility] Comment on above: Order Comment: Speci men Type: VENOUS BLOOD SPECIMENOrdering Facility: [facility] Address: [address] [place] [address] Performed By: #### 2 4344-4 ####[facility] LABCLIA [id number] [address] [address] [place] pH (BldV) 7.33 [pH] Normal 7.32-7.42 [facility] Comment on above: Order Comment: Speci men Type: VENOUS BLOOD SPECIMENOrdering Facility: [facility] Address: [address] [place] [address] Performed By: #### 2 4344-4 ####[facility] LABIA [id number] [place] [id number] [place] pH adjusted to patient's actual temperature (BldV) 7.33 Normal 7.32-7.42 [facility] Comment on above: Order Comment: Speci men Type: VENOUS BLOOD SPECIMENOrdering Facility: [facility] Address: [address] [place] [address] Performed By: #### 2 4344-4 ####[facility] LABIA [id number] [place] [address] [place] Potassium [Moles/Vol] 4.5 mmol/L Normal 3.5-5.0 [facility] Comment on above: Order Comment: Speci men Type: VENOUS BLOOD SPECIMENOrdering Facility: [facility] Address: [address] [place] [address] Performed By: #### 2 4344-4 ####[facility] LABIA [id number] [place] [address] [place] INTRAOPERATIVE ECHO PREon INTRAOPERATIVE ECHO PRE Normal [facility] MRSA Spec Ql Culton 11-05-19 24 MRSA isol Org specific cx Ql (Unsp spec) ORGANISM ID: 1 Methicillin-SUSCEPTIBLE Staphylococcus aureus This is a corrected result. Previous organism was Staphylococcus aureus on 11/07/2023 at 3:19 PM EDT. Normal [facility] Comment on above: Performed By: #### 1 3317-3 ####[facility] LABIA [id number] [place] [id number] [place] OPERATIVE NOon 11-05-2023 OPERATIVE NO Normal [facility] SURGICAL PATHOLOGYon 024 CASE REPORT Normal [facility] Comment on above: Order Comment: Speci men Type: TISSUE SPECIMENOrdering Facility: [facility] Address: [address] [place] [address] Result Comment: Surg ica Pathology Report Case: [id number] Provider: Yasmin Dawson MD Collected: 11/05/2023 09:05 AMOrdering Location: Admitting Received: 11/05/2023 01:25 PMPathologist: Vilma Calvillo MDSpecimens: A) - Aorta, Aorta- histology B) - Heart, Aortic Valve, Aortic valve Performed By: #### S ####[facility] LABCLIA [id number] [address] OF [facility] CLINICAL HISTORY Normal [facility] Comment on above: Order Comment: Speci men Type: TISSUE SPECIMENOrdering Facility: [facility] Address: [address] [place] [address] Result Comment: Pre- op diagnosis:Disorder of artery or arteriole (HCC) [I77.9]Pre-operative cardiovascular examination [Z01.810]Aortic valve disorder [I35.9] Performed By: #### S ####[facility] LABIA [id number] [address] DIAGNOSIS COMMENT Normal [facility] Comment on above: Order Comment: Speci men Type: TISSUE SPECIMENOrdering Facility: [facility] Address: [address] [place] [address] Performed By: #### S ####[facility] LABIA [id number] [address] FINAL DIAGNOSIS Normal [facility] Comment on above: Order Comment: Speci men Type: TISSUE SPECIMENOrdering Facility: [facility] Address: [address] [place] [address] Result Comment: A. A renny, partial excision:- Elastic type artery with no significant medial degeneration.B. Aortic valve, excision:- Bicuspid semilunar valve with severe calcification and severe fibrosis (gross diagnosis only).CT/CG Performed By: #### S ####[facility] LABCLIA [id number] [address] OF [facility] FINAL PERFORMING LAB Normal [facility] Comment on above: Order Comment: Speci men Type: TISSUE SPECIMENOrdering Facility: [facility] Address: [address] [place] [address] Result Comment: Diag nostic interpretation performed at [facility], [address] [place] [address] CLIA# [id number] Director: Saroj Goldman M.D. Performed By: #### S ####[facility] LABCLIA [id number] [address] GROSS DESCRIPTION A. Aorta Normal [facility] Comment on above: Order Comment: Speci men Type: TISSUE SPECIMENOrdering Facility: [facility] Address: [address] [place] [address] Result Comment: Rece ived in formalin, labeled as aorta is a single unoriented segments of large artery consistent with aorta that measures 0.8 x 0.7 x 0.2 cm. A dissection plane is not identified. The adventitial surface contains a mild amount of adipose tissue. The wall thickness is 0.2 cm. The internal surface is smooth and pale. The specimen is reviewed with Dr. Calvillo. The specimen is sectioned and totally submitted in cassette A1.B. Heart, Aortic ValveReceived in formalin, labeled as aortic valve are two pieces of a bicuspid valvethat measure 2.9 to 3.2 cm along the free edges and 1.3 to 1.6 cm from free edge to base. A median raphe is identified. There are severe calcifications, severe fibrosis, and Lambl's excrescences. There is no commissural fusion, perforations, vegetations, or fenestrations. No tissue is submitted. The specimen is shown to Dr. Calvillo. November 05, 2023 4:36 PMGross examination performed at [facility], [address] [place] [address] CLIA# [id number] Performed By: #### S ####[facility] LABCLIA [id number] [place] [address] [place] XR CHEST 1V FRONTAL PORTon 0 11-05-2023 XR CHEST 1V FRONTAL PORT Normal [facility] CNCNPATEDon 11-04-2023 CNCNPATED Normal [facility] CNOVon 11-04-2023 CNOV Normal [facility] CNOV Normal [facility] HISTORY PHYSICALon 4 HISTORY PHYSICAL Normal [facility] STAPHYLOCOCCUS AUREUS AND MR SA SCREEN, PCR, NASALon 11-04-2023 S. aureus and MRSA panel NATALY+probe (Nose) Methicillin-SUSCEPTIBLE Staphylococcus aureus Detected Abnormal Not Detected [facility] Comment on above: Order Comment: Speci men Type: SWABOrdering Facility: [facility] Address: [address] [place] [address] Performed By: #### S APCR ####[facility] LABIA [id number] [place] [address] [place] B-HCG SerPl-aCncon 4 HCG.beta subunit Qn m[IU]/mL Normal <5.0 [facility] Comment on above: Order Comment: Speci men Type: BLOOD SPECIMENOrdering Facility: [facility] Address: [address] [place] [address] Result Comment: Nega timeño Performed By: #### 2 1198-7 ####[facility] LABCLIA [id number] [place] [address] [place] CBC W Auto Differential pane l (Bld)on 11-03-2023 Basophils (Bld) [#/Vol] 10*3/uL Normal <0.11 [facility] Comment on above: Order Comment: Speci men Type: BLOOD SPECIMENOrdering Facility: [facility] Address: [address] [place] [address] Performed By: #### 5 7021-8 ####[facility] LABCLIA [id number] [place] [address] [place] Basophils/100 WBC (Bld) 0.4 % Normal [facility] Comment on above: Order Comment: Speci men Type: BLOOD SPECIMENOrdering Facility: [facility] Address: [address] [place] [address] Performed By: #### 5 7021-8 ####[facility] LABCLIA [id number] [place] [address] [place] Differential cell count method Nom (Bld) Auto Normal [facility] Comment on above: Order Comment: Speci men Type: BLOOD SPECIMENOrdering Facility: [facility] Address: [address] [place] [address] Performed By: #### 5 7021-8 ####[facility] LABCLIA [id number] [place] [address] [place] Eosinophils (Bld) [#/Vol] 0.10 10*3/uL Normal <0.46 [facility] Comment on above: Order Comment: Speci men Type: BLOOD SPECIMENOrdering Facility: [facility] Address: [address] [place] [address] Performed By: #### 5 7021-8 ####[facility] LABCLIA [id number] [place] [address] [place] Eosinophils/100 WBC (Bld) 2.1 % Normal [facility] Comment on above: Order Comment: Speci men Type: BLOOD SPECIMENOrdering Facility: [facility] Address: [address] [place] [address] Performed By: #### 5 7021-8 ####[facility] LABCLIA [id number] [place] [address] [place] Erythrocyte distribution width (RBC) [Ratio] 13.2 % Normal 11.5-15.0 [facility] Comment on above: Order Comment: Speci men Type: BLOOD SPECIMENOrdering Facility: [facility] Address: [address] [place] [address] Performed By: #### 5 7021-8 ####[facility] LABCLIA [id number] [place] [address] [place] Hematocrit (Bld) [Volume fraction] 38.7 % Normal 36.0-46.0 [facility] Comment on above: Order Comment: Speci men Type: BLOOD SPECIMENOrdering Facility: [facility] Address: [address] [place] [address] Performed By: #### 5 7021-8 ####[facility] LABCLIA [id number] [place] [address] [place] Hemoglobin (Bld) [Mass/Vol] 12.7 g/dL Normal 11.5-15.5 [facility] Comment on above: Order Comment: Speci men Type: BLOOD SPECIMENOrdering Facility: [facility] Address: [address] [place] [address] Performed By: #### 5 7021-8 ####[facility] LABIA [id number] [place] [address] [place] Immature granulocytes (Bld) [#/Vol] 0.04 10*3/uL Normal <0.10 [facility] Comment on above: Order Comment: Speci men Type: BLOOD SPECIMENOrdering Facility: [facility] Address: [address] [place] [address] Performed By: #### 5 7021-8 ####[facility] LABCLIA [id number] [place] [address] [place] Immature granulocytes/100 WBC (Bld) 0.8 % Normal [facility] Comment on above: Order Comment: Speci men Type: BLOOD SPECIMENOrdering Facility: [facility] Address: [address] [place] [address] Performed By: #### 5 7021-8 ####[facility] LABCLIA [id number] [place] [address] [place] Lymphocytes (Bld) [#/Vol] 0.73 10*3/uL Low 1.00-4.00 [facility] Comment on above: Order Comment: Speci men Type: BLOOD SPECIMENOrdering Facility: [facility] Address: [address] [place] [address] Performed By: #### 5 7021-8 ####[facility] LABCLIA [id number] [place] [address] [place] Lymphocytes/100 WBC (Bld) 15.5 % Normal [facility] Comment on above: Order Comment: Speci men Type: BLOOD SPECIMENOrdering Facility: [facility] Address: [address] [place] [address] Performed By: #### 5 7021-8 ####[facility] LABCLIA [id number] [place] [address] [place] MCH (RBC) [Entitic mass] 28.2 pg Normal 26.0-34.0 [facility] Comment on above: Order Comment: Speci men Type: BLOOD SPECIMENOrdering Facility: [facility] Address: [address] [place] [address] Performed By: #### 5 7021-8 ####[facility] LABCLIA [id number] [place] [address] [place] MCHC (RBC) [Mass/Vol] 32.8 g/dL Normal 30.5-36.0 [facility] Comment on above: Order Comment: Speci men Type: BLOOD SPECIMENOrdering Facility: [facility] Address: [address] [place] [address] Performed By: #### 5 7021-8 ####[facility] LABCLIA [id number] [place] [address] [place] MCV (RBC) [Entitic vol] 85.8 fL Normal 80.0-100.0 [facility] Comment on above: Order Comment: Speci men Type: BLOOD SPECIMENOrdering Facility: [facility] Address: [address] [place] [address] Performed By: #### 5 7021-8 ####[facility] LABCLIA [id number] [place] [address] [place] Monocytes (Bld) [#/Vol] 0.20 10*3/uL Normal <0.87 [facility] Comment on above: Order Comment: Speci men Type: BLOOD SPECIMENOrdering Facility: [facility] Address: [address] [place] [address] Performed By: #### 5 7021-8 ####[facility] LABCLIA [id number] [place] [address] [place] Monocytes/100 WBC (Bld) 4.2 % Normal [facility] Comment on above: Order Comment: Speci men Type: BLOOD SPECIMENOrdering Facility: [facility] Address: [address] [place] [address] Performed By: #### 5 7021-8 ####[facility] LABCLIA [id number] [place] [address] [place] Neutrophils (Bld) [#/Vol] 3.63 10*3/uL Normal 1.45-7.50 [facility] Comment on above: Order Comment: Speci men Type: BLOOD SPECIMENOrdering Facility: [facility] Address: [address] [place] [address] Performed By: #### 5 7021-8 ####[facility] LABCLIA [id number] [place] [address] [place] Neutrophils/100 WBC (Bld) 77.0 % Normal [facility] Comment on above: Order Comment: Speci men Type: BLOOD SPECIMENOrdering Facility: [facility] [facility] Address: [address] [place] [address] Performed By: #### 5 7021-8 ####[facility] LABCLIA [id number] [place] [address] [place] Nucleated RBC (Bld) [#/Vol] 10*3/uL Normal <0.01 [facility] Comment on above: Order Comment: Speci men Type: BLOOD SPECIMENOrdering Facility: [facility] Address: [address] [place] [address] Performed By: #### 5 7021-8 ####[facility] LABIA [id number] [place] [address] [place] Nucleated RBC/100 WBC (Bld) [Ratio] 0.0 /100 WBC Normal [facility] Comment on above: Order Comment: Speci men Type: BLOOD SPECIMENOrdering Facility: [facility] Address: [address] [place] [address] Performed By: #### 5 7021-8 ####[facility] LABIA [id number] [place] [address] [place] Platelet mean volume (Bld) [Entitic vol] 9.5 fL Normal 9.0-12.7 [facility] Comment on above: Order Comment: Speci men Type: BLOOD SPECIMENOrdering Facility: [facility] Address: [address] [place] [address] Performed By: #### 5 7021-8 ####[facility] LABIA [id number] [place] [address] [place] Platelets (Bld) [#/Vol] 183 10*3/uL Normal 150-400 [facility] Comment on above: Order Comment: Speci men Type: BLOOD SPECIMENOrdering Facility: [facility] Address: [address] [place] [address] Performed By: #### 5 7021-8 ####[facility] LABCLIA [id number] [place] [address] [place] RBC (Bld) [#/Vol] 4.51 10*6/uL Normal 3.90-5.20 [facility] Comment on above: Order Comment: Speci men Type: BLOOD SPECIMENOrdering Facility: [facility] Address: [address] [place] [address] Performed By: #### 5 7021-8 ####[facility] LABCLIA [id number] [address] [address] [place] WBC (Bld) [#/Vol] 4.72 10*3/uL Normal 3.70-11.00 [facility] Comment on above: Order Comment: Speci men Type: BLOOD SPECIMENOrdering Facility: [facility] Address: [address] [place] [address] Performed By: #### 5 7021-8 ####[facility] LABCLIA [id number] [place] [address] [place] CNOVon 11-03-2023 CNOV Normal [facility] CONFIRM BLOOD TYPEon 024 ABO A Normal [facility] Comment on above: Order Comment: Speci men Type: BLOOD SPECIMENOrdering Facility: [facility] Address: [address] [place] [address] Performed By: #### C ONABO ####[facility] BLOOD BANKCLIA [id number] [place] [address] [place] Rh Nom (Bld) Negative Normal [facility] Comment on above: Order Comment: Speci men Type: BLOOD SPECIMENOrdering Facility: [facility] Address: [address] [place] [address] Performed By: #### C ONABO ####[facility] BLOOD BANKIA [id number] [place] [address] [place] CTA CHEST (GATED) W IVCONon 11-03-2023 CTA CHEST (GATED) W IVCON Normal [facility] CTA Chest vessels W contrast Esther 11-03-2023 IMPRESSION: AORTIC V ALVE: assessment is limited in the current study. -Severe leaflet thickening and calcification. -Incomplete diastolic coaptation, suggesting significant aortic insufficiency. ECTASIA/MILD DILATION AORTIC ROOT AND ASCENDING AORTA. -AORTIC ROOT: 4 x 3.8 cm -ASCENDING THORACIC AORTA: 4.1 x 4.1 cm CORONARY ANATOMY: Mild calcified atherosclerotic changes of the LAD. However, the current study is not optimized for coronary assessment. Pressing Department Supervisor: NOHELIA Transcribe Date/Time: Nov 03 2023 9:56A Dictated by : KENNEDY CANCINO MD This examination was interpreted and the report reviewed and electronically signed by: KENNEDY CANCINO MD on Nov 03 2023 10:29AM [facility] DIVISION OF RADIOLOGY * * *Final Report* * * DATE OF EXAM: Nov 03 2023 9:54AM JQC 0125 - CTA CHEST (GATED) W IVCON / PROCEDURE REASON: multiple diagnoses * * * * Physician Interpretation * * * * CTA Aorta chest Direct Image Comparison: None HISTORY: None old Female with chronic h/o bicuspid aortic valve stenosis Evaluation for further treatment options. There is request to define thoracic and aortic anatomy TECHNIQUE: SCANNER: Siemens Definition Edge scanner 128 slice scanner PROTOCOL: Sequential imaging of the chest with prospective triggering in diastolic phase following the intravenous administration of contrast material. Scan Range: thoracic inlet to the diaphragm CT Dose-Length Product (DLP): 288 mGy*cm CT Dose Reduction Employed: Automated exposure control (AEC) CONTRAST: IV administration of 90 ml Omnipaque 350 Scan acquisition: uncomplicated Macro Version: [id number]_7 For optimization of anatomic evaluation, advanced 3-D off-line postprocessing was performed on a dedicated workstation by the interpreting physician. Additional lung CAD. Cardona images reconstructed, saved, and available in [employer] 'Get Images'. STUDY LIMITATIONS: Limited contrast enhancement of the right sided cardiac chambers and pulmonary artery. RESULT: LINES, TUBES and DEVICES: None CHEST: Chest wall anatomy: unremarkable. LUNGS: Small calcified lung nodule right lower lung lobe. MEDIASTINUM: small mediastinal lymph nodes, which are not pathologic by size criteria. Changes in the anterior mediastinum, most c/w residual thymus tissue. PERICARDIUM: unremarkable Small amount of fluid in pericardial recesses in the mediastinum. CENTRAL PULMONARY ARTERY: normal dimensions. Assessment is limited due to limited contrast enhancement. CARDIAC CHAMBERS: LEFT VENTRICLE: normal size. -mild prominence of the basal interventricular septum RIGHT VENTRICLE: normal size Left Atrium: normal size. Small linear structure at the interatrial septum, most consistent with the foramen ovale or a left atrial septal pouch. LUCINDA: normal. Right Atrium: normal size CENTRAL VENOUS and PULMONARY VENOUS RETURN: normal. Coronary Sinus: normal size MITRAL VALVE: assessment is limited in the current study - mild calcification at the base of the posterior mitral leaflet/posterior annular calcification TRICUSPID and PULMONIC VALVE: appear unremarkable. CORONARY ANATOMY: normal origin of the coronary arteries. Mild calcified atherosclerotic changes of the LAD. However, the current study is not optimized for coronary assessment. AORTIC VALVE: assessment is limited in the current study. -Severe leaflet thickening and calcification. -Incomplete diastolic coaptation, suggesting significant aortic insufficiency. AORTA: Pathology: No acute aortic pathology. Intervention: None Complications: n/a Aortic Size: Ectasia/Mild Dilation aortic root and ascending aorta. STJ: maintained. Wall Changes: Arch Branch Vessels: Patent, normal size proximal segments of the arch branch vessels, without evidence of wall changes. AORTIC DIMENSIONS: ANNULUS: max. and min. Diameter: 2.8 x 2.3 cm. AREA 5.1 cm2 AORTIC ROOT: 4 x 3.8 cm measured [id number]-my-vvhtc Area 11 cm2 mid ASCENDING THORACIC AORTA: 4.1 x 4.1 cm Area 12 cm2 mid AORTIC ARCH: 2.8 cm mid DESCENDING THORACIC AORTA: 2.4 cm RELATIONSHIP OF THE CARDIOVASCULAR STRUCTURES OF THE STERNUM: Left brachio-cephalic vein lies 7 mm behind the manubrium sternum RV lies 4 mm behind the lower sternum limited upper ABDOMEN: Spleen: prominent Voice Professor (topogram) images: No additional findings. DIVISION OF RADIOLOGY Provider, [facility] - 11/03/2023 * * *Final Report* * * DATE OF EXAM: Nov 03 2023 9:54AM JQC 0125 - CTA CHEST (GATED) W IVCON / PROCEDURE REASON: multiple diagnoses * * * * Physician Interpretation * * * * CTA Aorta chest Direct Image Comparison: None HISTORY: None old Female with chronic h/o bicuspid aortic valve stenosis Evaluation for further treatment options. There is request to define thoracic and aortic anatomy TECHNIQUE: SCANNER: Siemens Definition Edge scanner 128 slice scanner PROTOCOL: Sequential imaging of the chest with prospective triggering in diastolic phase following the intravenous administration of contrast material. Scan Range: thoracic inlet to the diaphragm CT Dose-Length Product (DLP): 288 mGy*cm CT Dose Reduction Employed: Automated exposure control (AEC) CONTRAST: IV administration of 90 ml Omnipaque 350 Scan acquisition: uncomplicated Macro Version: [id number] For optimization of anatomic evaluation, advanced 3-D off-line postprocessing was performed on a dedicated workstation by the interpreting physician. Additional lung CAD. Cardona images reconstructed, saved, and available in [employer] 'Get Images'. STUDY LIMITATIONS: Limited contrast enhancement of the right sided cardiac chambers and pulmonary artery. RESULT: LINES, TUBES and DEVICES: None CHEST: Chest wall anatomy: unremarkable. LUNGS: Small calcified lung nodule right lower lung lobe. MEDIASTINUM: small mediastinal lymph nodes, which are not pathologic by size criteria. Changes in the anterior mediastinum, most c/w residual thymus tissue. PERICARDIUM: unremarkable Small amount of fluid in pericardial recesses in the mediastinum. CENTRAL PULMONARY ARTERY: normal dimensions. Assessment is limited due to limited contrast enhancement. CARDIAC CHAMBERS: LEFT VENTRICLE: normal size. -mild prominence of the basal interventricular septum RIGHT VENTRICLE: normal size Left Atrium: normal size. Small linear structure at the interatrial septum, most consistent with the foramen ovale or a left atrial septal pouch. LUCINDA: normal. Right Atrium: normal size CENTRAL VENOUS and PULMONARY VENOUS RETURN: normal. Coronary Sinus: normal size MITRAL VALVE: assessment is limited in the current study - mild calcification at the base of the posterior mitral leaflet/posterior annular calcification TRICUSPID and PULMONIC VALVE: appear unremarkable. CORONARY ANATOMY: normal origin of the coronary arteries. Mild calcified atherosclerotic changes of the LAD. However, the current study is not optimized for coronary assessment. AORTIC VALVE: assessment is limited in the current study. -Severe leaflet thickening and calcification. -Incomplete diastolic coaptation, suggesting significant aortic insufficiency. AORTA: Pathology: No acute aortic pathology. Intervention: None Complications: n/a Aortic Size: Ectasia/Mild Dilation aortic root and ascending aorta. STJ: maintained. Wall Changes: Arch Branch Vessels: Patent, normal size proximal segments of the arch branch vessels, without evidence of wall changes. AORTIC DIMENSIONS: ANNULUS: max. and min. Diameter: 2.8 x 2.3 cm. AREA 5.1 cm2 AORTIC ROOT: 4 x 3.8 cm measured stvrk-sg-mwouk Area 11 cm2 mid ASCENDING THORACIC AORTA: 4.1 x 4.1 cm Area 12 cm2 mid AORTIC ARCH: 2.8 cm mid DESCENDING THORACIC AORTA: 2.4 cm RELATIONSHIP OF THE CARDIOVASCULAR STRUCTURES OF THE STERNUM: Left brachio-cephalic vein lies 7 mm behind the manubrium sternum RV lies 4 mm behind the lower sternum limited upper ABDOMEN: Spleen: prominent Voice Professor (topogram) images: No additional findings. IMPRESSION IMPRESSION: AORTIC VALVE: assessment is limited in the current study. -Severe leaflet thickening and calcification. -Incomplete diastolic coaptation, suggesting significant aortic insufficiency. ECTASIA/MILD DILATION AORTIC ROOT AND ASCENDING AORTA. -AORTIC ROOT: 4 x 3.8 cm -ASCENDING THORACIC AORTA: 4.1 x 4.1 cm CORONARY ANATOMY: Mild calcified atherosclerotic changes of the LAD. However, the current study is not optimized for coronary assessment. Pressing Department Supervisor: NOHELIA Transcribe Date/Time: Nov 03 2023 9:56A Dictated by : KENNEDY CANCINO MD This examination was interpreted and the report reviewed and electronically signed by: KENNEDY CANCINO MD on Nov 03 2023 10:29AM EST [facility] Radiology Study observation (narrative) [facility] CTA Chest vessels W contrast IVOrdered By: Ccf Provider on 11-03-2023 [facility] Comprehensive metabolic 2000 panelon 11-03-2023 Albumin [Mass/Vol] 4.2 g/dL Normal 3.9-4.9 [facility] Comment on above: Order Comment: Speci men Type: BLOOD SPECIMENOrdering Facility: [facility] Address: [address] [place] [address] Performed By: #### 2 532-0, 44309-3 ####[facility] LABCLIA [id number] [place] [address] [place] ALP [Catalytic activity/Vol] 80 U/L Normal 34-123 [facility] Comment on above: Order Comment: Speci men Type: BLOOD SPECIMENOrdering Facility: [facility] Address: [address] [place] [address] Performed By: #### 2 532-0, 91097-4 ####[facility] LABCLIA [id number] [place] [address] [place] ALT [Catalytic activity/Vol] 12 U/L Normal 7-38 [facility] Comment on above: Order Comment: Speci men Type: BLOOD SPECIMENOrdering Facility: [facility] Address: [address] [place] [address] Performed By: #### 2 532-0, 85291-7 ####[facility] LABCLIA [id number] [place] [address] [place] Anion gap [Moles/Vol] 12 mmol/L Normal 8-15 [facility] Comment on above: Order Comment: Speci men Type: BLOOD SPECIMENOrdering Facility: [facility] Address: [address] [place] [address] Performed By: #### 2 532-0, 35876-1 ####[facility] LABCLIA [id number] [place] [address] [place] AST [Catalytic activity/Vol] 16 U/L Normal 13-35 [facility] Comment on above: Order Comment: Speci men Type: BLOOD SPECIMENOrdering Facility: [facility] Address: [address] [place] [address] Performed By: #### 2 532-0, 17695-3 ####[facility] LABCLIA [id number] [place] [address] [place] Bilirubin [Mass/Vol] 0.6 mg/dL Normal 0.2-1.3 [facility] Comment on above: Order Comment: Speci men Type: BLOOD SPECIMENOrdering Facility: [facility] Address: [address] [place] [address] Performed By: #### 2 532-0, 55224-0 ####[facility] LABCLIA [id number] [place] [address] [place] Calcium [Mass/Vol] 9.6 mg/dL Normal 8.5-10.2 [facility] Comment on above: Order Comment: Speci men Type: BLOOD SPECIMENOrdering Facility: [facility] Address: [address] [place] [address] Performed By: #### 2 532-0, 05738-2 ####[facility] LABCLIA [id number] [place] [address] [place] Chloride [Moles/Vol] 105 mmol/L Normal 98-107 [facility] Comment on above: Order Comment: Speci men Type: BLOOD SPECIMENOrdering Facility: [facility] Address: [address] [place] [address] Performed By: #### 2 532-0, 62641-7 ####[facility] LABCLIA [id number] [place] [address] [place] CO2 [Moles/Vol] 25 mmol/L Normal 22-30 [facility] Comment on above: Order Comment: Speci men Type: BLOOD SPECIMENOrdering Facility: [facility] Address: [address] [place] [address] Performed By: #### 2 532-0, 28893-5 ####[facility] LABCLIA [id number] [place] [address] [place] Creatinine [Mass/Vol] 1.13 mg/dL High 0.58-0.96 [facility] Comment on above: Order Comment: Speci men Type: BLOOD SPECIMENOrdering Facility: [facility] Address: [address] [place] [address] Performed By: #### 2 532-0, 01542-4 ####[facility] LABCLIA [id number] [place] [address] [place] Creatinine and Glomerular filtration rate.predicted panel (S/P/Bld) 60 mL/min/1.73m??? Normal >=60 [facility] Comment on above: Order Comment: Speci men Type: BLOOD SPECIMENOrdering Facility: [facility] Address: [address] [place] [address] Result Comment: Yani mated Glomerular Filtration Rate (eGFR) is calculated using the 2020 CKD-EPI creatinine equation. This equation utilizes serum creatinine, sex, and age as parameters. The creatinine assay has traceable calibration to isotope dilution-mass spectrometry. Refer to KDIGO guidelines for clinical interpretation. In patients with unstable renal function, e.g. those with acute kidney injury, the eGFR may not accurately reflect actual GFR. Performed By: #### 2 532-0, 17970-6 ####[facility] LABCLIA [id number] [place] [address] [place] Glucose [Mass/Vol] 85 mg/dL Normal 74-99 [facility] Comment on above: Order Comment: Speci men Type: BLOOD SPECIMENOrdering Facility: [facility] Address: [address] [place] [address] Result Comment: The [place] Diabetes Association (ADA) provides guidance for cutoff values for fasting glucose and random glucose. The ADA defines fasting as no caloric intake for at least 8 hours. Fasting plasma glucose results between 100 to 125 mg/dL indicate increased risk for diabetes (prediabetes).Fasting plasma glucose results greater than or equal to 126 mg/dL meet the criteria for diagnosis of diabetes. In the absence of unequivocal hyperglycemia, results should be confirmed by repeat testing. In a patient with classic symptoms of hyperglycemia or hyperglycemic crisis, random plasma glucose results greater than or equal to 200 mg/dL meet the criteria for diagnosis of diabetes.Reference: Standards of Medical Care in Diabetes 2016, [place] [employer]. Diabetes Care. 2016.39(Suppl 1). Performed By: #### 2 532-0, 18602-9 ####[facility] LABIA [id number] [place] [id number] [place] Potassium [Moles/Vol] 4.5 mmol/L Normal 3.7-5.1 [facility] Comment on above: Order Comment: [place] men Type: BLOOD SPECIMENOrdering Facility: [facility] Address: [address] [place] [place] [id number] Performed By: #### 2 532-0, 98886-8 ####[facility] LABIA [id number] [place] [id number] [place] Protein [Mass/Vol] 7.1 g/dL Normal 6.3-8.0 [facility] Comment on above: Order Comment: Speci men Type: BLOOD SPECIMENOrdering Facility: [facility] Address: [address] [place] [address] Performed By: #### 2 532-0, 96849-5 ####[facility] LABCLIA [id number] [place] [address] [place] Sodium [Moles/Vol] 142 mmol/L Normal 136-144 [facility] Comment on above: Order Comment: Speci men Type: BLOOD SPECIMENOrdering Facility: [facility] Address: [address] [place] [address] Performed By: #### 2 532-0, 82545-7 ####[facility] LABCLIA [id number] [place] [address] [place] Urea nitrogen [Mass/Vol] 16 mg/dL Normal 7-21 [facility] Comment on above: Order Comment: Speci men Type: BLOOD SPECIMENOrdering Facility: [facility] Address: [address] [place] [address] Performed By: #### 2 532-0, 77649-3 ####[facility] LABCLIA [id number] [place] [address] [place] ECG COMPLETEon 11-03-2023 ECG COMPLETE Normal [facility] LDH SerPl-cCncon 11-03-2023 LDH [Catalytic activity/Vol] 189 U/L Normal 135-214 [facility] Comment on above: Order Comment: Speci men Type: BLOOD SPECIMENOrdering Facility: [facility] Address: [address] [place] [address] Performed By: #### 2 532-0, 42386-1 ####[facility] LABCLIA [id number] [place] [id number] [place] MRI BRAIN WO IVCONon 024 MRI BRAIN WO IVCON Normal [facility] PT panel Coag (PPP)on 2023 INR Coag (PPP) [Relative time] 1.1 {INR} Normal 0.9-1.3 [facility] Comment on above: Order Comment: Speci men Type: BLOOD SPECIMENOrdering Facility: [facility] Address: [address] [place] [address] Result Comment: Jesusita min K Antagonist (VKA) Therapeutic Range: INR 2 to 3 (Target INR of 2.5)Note: For patients treated with VKA drugs, such as warfarin, the [place] [employer] 2012 Guideline recommends a therapeutic INR range of 2 to 3 (target INR of 2.5). This recommendation includes high-risk patients with antiphospholipid syndrome with previous arterial or venous thromboembolism, current-generation mechanical or bioprosthetic aortic heart valve replacement.Note: Patients with mechanical aortic valve replacement and additional risk factors for thromboembolic events (atrial fibrillation, previous thromboembolism, LV dysfunction, hypercoagulable conditions) or an older generation mechanical AVR (i.e., ball in-Cage) or any mechanical MVR should have a INR therapeutic range of 2.5 to 3.5 (target INR of 3).Kristie GH, et al. Chest 2012, 141:7S-47SNishimura RA, et al. [facility] 2017, 70: 252-289 Performed By: #### 3 4528-0, 64580-9 ####[facility] LABIA [id number] [place] [address] [place] PT Coag (PPP) [Time] 11.6 s Normal 9.7-13.0 [facility] Comment on above: Order Comment: Speci men Type: BLOOD SPECIMENOrdering Facility: [facility] Address: [address] [place], [place] [address] Performed By: #### 3 4528-0, 51140-5 ####[facility] LABIA [id number] [place] [address] [place] TYPE AND SCREEN,30 DAYon ABO A Normal [facility] Comment on above: Order Comment: Speci men Type: BLOOD SPECIMENOrdering Facility: [facility] Address: [address] [place] [address] Performed By: #### T SCR30 ####[facility] BLOOD BANKCLIA [id number] [place] [address] [place] HISTORICAL AB SCR STATUS Negative Normal [facility] Comment on above: Order Comment: Speci men Type: BLOOD SPECIMENOrdering Facility: [facility] Address: [address] [place] [address] Performed By: #### T SCR30 ####[facility] BLOOD BANKCLIA [id number] [place] [address] [place] Rh Nom (Bld) Negative Normal [facility] Comment on above: Order Comment: Speci men Type: BLOOD SPECIMENOrdering Facility: [facility] Address: [address] [place] [address] Performed By: #### T SCR30 ####[facility] BLOOD BANKIA [id number] [place] [address] [place] URINALYSIS, DIPSTICK ONLYon 11-03-2023 Bilirubin Ql (U) Negative Normal Negative [facility] Comment on above: Order Comment: Speci men Type: URINE SPECIMENOrdering Facility: [facility] Address: [address] [place] [address] Performed By: #### U A ####[facility] LABCLIA [id number] [place] [address] [place] Clarity (Unsp spec) Clear Normal Clear [facility] Comment on above: Order Comment: Speci men Type: URINE SPECIMENOrdering Facility: [facility] Address: [address] [place] [address] Performed By: #### U A ####[facility] LABCLIA [id number] [place] [address] [place] Color (U) Yellow Normal Yellow [facility] Comment on above: Order Comment: Speci men Type: URINE SPECIMENOrdering Facility: [facility] Address: [address] [place] [id number] Performed By: #### U A ####[facility] LABCLIA [id number] [place] [id number] [place] Glucose Test strip (U) [Mass/Vol] Negative Normal Negative [facility] Comment on above: Order Comment: Speci men Type: URINE SPECIMENOrdering Facility: [facility] Address: [address] [place] [address] Performed By: #### U A ####[facility] [facility] [id number] [place] [address] [place] Hemoglobin Ql (U) Negative Normal Negative [facility] Comment on above: Order Comment: Speci men Type: URINE SPECIMENOrdering Facility: [facility] Address: [address] [place] [address] Performed By: #### U A ####[facility] LABCLIA [id number] [place] [address] [place] Ketones Ql (U) Negative Normal Negative [facility] Comment on above: Order Comment: Speci men Type: URINE SPECIMENOrdering Facility: [facility] Address: [address] [place] [address] Performed By: #### U A ####[facility] LABCLIA [id number] [place] [address] [place] Leukocyte esterase Test strip Ql (U) Negative Normal Negative [facility] Comment on above: Order Comment: Speci men Type: URINE SPECIMENOrdering Facility: [facility] Address: [address] [place] [address] Performed By: #### U A ####[facility] LABCLIA [id number] [place] [id number] [place] Nitrite Ql (U) Negative Normal Negative [facility] Comment on above: Order Comment: Speci men Type: URINE SPECIMENOrdering Facility: [facility] Address: [address] [place] [address] Performed By: #### U A ####[facility] LABIA [id number] [place] [address] [place] pH (U) 5.5 [pH] Normal <8.5 [facility] Comment on above: Order Comment: Speci men Type: URINE SPECIMENOrdering Facility: [facility] Address: [address] [place] [address] Performed By: #### U A ####[facility] LABIA [id number] [place] [address] [place] Protein (U) [Mass/Vol] Negative Normal Negative [facility] Comment on above: Order Comment: Speci men Type: URINE SPECIMENOrdering Facility: [facility] Address: [address] [place] [address] Performed By: #### U A ####[facility] LABIA [id number] [place] [address] [place] Specific gravity (U) [Rel density] >1.045 High 1.005-1.030 [facility] Comment on above: Order Comment: Speci men Type: URINE SPECIMENOrdering Facility: [facility] Address: [address] [place] [address] Performed By: #### U A ####[facility] LABIA [id number] [place] [address] [place] Urobilinogen Ql (U) 0.2 EU/dL Normal 0.2-1.0 EU/dL [facility] Comment on above: Order Comment: Speci men Type: URINE SPECIMENOrdering Facility: [facility] Address: [address] [place] [address] Performed By: #### U A ####[facility] LABIA [id number] [place] [address] [place] aPTT PPPon 11-03-2023 aPTT Coag (PPP) [Time] 47.1 s High 23.0-32.4 [facility] Comment on above: Order Comment: Speci men Type: BLOOD SPECIMENOrdering Facility: [facility] Address: [address] [place] [address] Performed By: #### 3 4528-0, 07228-5 ####[facility] LABCLIA [id number] [place] [address] [place] CNPNon 10-04-2023 CNPN Normal [facility] Vitamin B12 measurementOrder ed By: Alex Harrell on 08-26-2023 Cobalamin (Vitamin B12) [Mass/Vol] 817 pg/mL 211-911 [facility] Basophil percentageOrdered B y: Deejay Dawson on 06-30-2023 Ammonia (P) [Moles/Vol] 15.0 umol/L 11-32 [facility] Erythrocyte sedimentation ra teOrdered By: Deejay Dawson on 06-30-2023 ESR (Bld) [Velocity] 22 mm/h 0-30 [facility] No Panel InformationOrdered By: Deejay Dawson on 06-30-2023 C-Reactive Protein Extended Range 44.10 mg/L 0.0-3.0 [facility] Comment on above: C-Reactive Protein ( CRP) provides useful information for thediagnosis, therapy and monitoring of inflammatory processesand associated diseases. For the evaluation of Relative Riskfor Cardiovascular Disease, a High Sensitivity CRP (HSCRP)should be ordered. Levetiracetam (Keppra) Level 18.6 ug/mL 10.0-40.0 [facility] Comment on above: Performed at: [address] [id number] Director: Alexis Stallworth MD, Phone: [phone] Absolute lymphocyte countOrd ered By: Bhupinder Hamlin on 06-02-2023 Lymphocytes Auto (Unsp spec) [#/Vol] 0.61 10*3/uL 0.83-4.51 [facility] Automated lymphocyte count a s percentage of total leukocytesOrdered By: Bhupinder Hamlin on 06-02-2023 Lymphocytes/100 WBC Auto (Unsp spec) 8.8 % 19-41 [facility] Basophil percentageOrdered B y: Bhupinder Hamlin on 06-02-2023 Basophils/100 WBC (Bld) 0.4 % 0-1 [facility] Eosinophils/100 WBC (Bld) 1.3 % 0-5 [facility] Hemoglobin (Bld) [Mass/Vol] 12.0 g/dL 12.0-15.0 [facility] Monocytes/100 WBC (Bld) 4.2 % 0-10 [facility] Neutrophils (Bld) [#/Vol] 5.9 10*3/uL 2.0-7.7 [facility] Neutrophils/100 WBC (Bld) 84.7 % 47-70 [facility] WBC (Bld) [#/Vol] 6.9 10*3/uL 4.4-11.0 [facility] Determination of erythrocyte mean corpuscular volume (MCV)Ordered By: Bhupinder Hamlin on 06-02-2023 MCV (RBC) [Entitic vol] 84.0 fL 81-99 [facility] Erythrocyte distribution wid th ratioOrdered By: Bhupinder Hamlin on 06-02-2023 Erythrocyte distribution width (RBC) [Ratio] 12.8 % 11.6-14.6 [facility] Erythrocyte distribution wid th standard deviationOrdered By: Bhupinder Hamlin on 06-02-2023 Erythrocyte distribution width (RBC) [Entitic vol] 38.6 fL 35.1-43.9 [facility] Hematocrit Auto (Bld) [Volum e fraction]Ordered By: Bhupinder Hamlin on 06-02-2023 Hematocrit (Bld) [Volume fraction] 36.3 % 37-47 [facility] Immature granulocytes/100 WB C Auto (Bld)Ordered By: Bhupinder Hamlin on 06-02-2023 Immature granulocytes/100 WBC (Bld) 0.600 % 0.0-0.9 [facility] Comment on above: IG% - Immature Granu locytes (promyelocytes, myelocytes and metamyelocytes) > 1% indicates that a LEFT SHIFT is Present. Laboratory - Chemistry and C hemistry - challengeOrdered By: Bhupinder Hamlin on 06-02-2023 ALT [Catalytic activity/Vol] 18 U/L 13-56 [facility] Laboratory - Hematology and Cell countsOrdered By: Bhupinder Hamlin on 06-02-2023 MCH (RBC) [Entitic mass] 27.8 pg 27.0-32.0 [facility] MCHC (RBC) [Mass/Vol] 33.1 g/dL 32-36 [facility] Nucleated RBC/100 WBC (Bld) [Ratio] 0 % 0-5 [facility] Platelet mean volume (Bld) [Entitic vol] 9.8 fL 6.2-12.0 [facility] Platelets (Bld) [#/Vol] 202 10*3/uL 150-450 [facility] No Panel InformationOrdered By: Bhupinder Hamlin on 06-02-2023 C-Reactive Protein Extended Range 28.60 mg/L 0.0-3.0 [facility] Comment on above: C-Reactive Protein ( CRP) provides useful information for thediagnosis, therapy and monitoring of inflammatory processesand associated diseases. For the evaluation of Relative Riskfor Cardiovascular Disease, a High Sensitivity CRP (HSCRP)should be ordered. Estimated GFR (MDRD) Amer 85 mL/min >60 [facility] Comment on above: GFR Calc Estimated GFR (MDRD) Non-Af Amer 71 mL/min >60 [facility] Comment on above: Non- GFR Calc No Panel InformationOrdered By: Anila Weiss on 06-02-2023 Complement C3 114 mg/dL 82-167 [facility] Comment on above: Performed at: [facility] [address] [id number] Director: Wilner Suarez PhD, Phone: [phone] RBC Auto (Bld) [#/Vol]Ordere d By: Bhupinder Hamlin on 06-02-2023 RBC (Bld) [#/Vol] 4.32 10*6/uL 4.2-5.4 [facility] Serum DNA double strand anti body assay (units/volume)Ordered By: Anila Weiss on 06-02-2023 DNA double strand Ab Qn (S) 6 [IU]/mL 0-9 [facility] Comment on above: Negative <5 Equivoca l 5 - 9 Positive >9Performed at: [facility] [id number] [place], [place] [id number] Director: Wilner Suarez PhD, Phone: [phone] Serum or plasma complement C 4 measurement (mass/volume)Ordered By: Anila Weiss on 06-02-2023 Complement C4 [Mass/Vol] 19 mg/dL 12-38 [facility] Serum or plasma creatinine m easurement (mass/volume)Ordered By: Bhupinder Hamlin on 06-02-2023 Creatinine [Mass/Vol] 0.90 mg/dL 0.55-1.02 [facility] Comment on above: The validity of the calculated GFR & GFRAA in patients over 70 years has not been determined. Clinical correlation is essential. Serum or plasma urea nitroge n measurement (mass/volume)Ordered By: Bhupinder Hamlin on 06-02-2023 Urea nitrogen [Mass/Vol] 21 mg/dL 7-18 [facility] Thin prep Papanicolaou smear with manual screeningOrdered By: Bhupinder Hamlin on 06-02-2023 Protein (U) [Mass/Vol] 18.0 mg/dL 0.0-11.8 [facility] Thin prep Papanicolaou smear with manual screening 3.5 g/dL 3.2-5.0 [facility] Thin prep Papanicolaou smear with manual screening 20 U/L 15-37 [facility] Urine creatinine measurement (mass/volume)Ordered By: Bhupinder Hamlin on 06-02-2023 Creatinine (U) [Mass/Vol] 62.20 mg/dL NO RANGE EST. [facility] Urine protein/creatinine mas s ratioOrdered By: Bhupinder Hamlin on 06-02-2023 Protein/Creatinine (U) [Mass ratio] 289 mg/g CRE 0-200 [facility] Absolute lymphocyte countOrd ered By: Alex Harrell on 05-26-2023 Lymphocytes Auto (Unsp spec) [#/Vol] 0.68 10*3/uL 0.83-4.51 [facility] Automated lymphocyte count a s percentage of total leukocytesOrdered By: Alex Harrell on 05-26-2023 Lymphocytes/100 WBC Auto (Unsp spec) 13.3 % 19-41 [facility] Basophil percentageOrdered B y: Alex Harrell on 05-26-2023 Basophils/100 WBC (Bld) 0.4 % 0-1 [facility] Bilirubin [Mass/Vol] 0.50 mg/dL 0.20-1.00 [facility] Comment on above: For patients on eltr ombopag therapy, use of Dimension [place] TBIL is not recommended. Chloride [Moles/Vol] 107 mmol/L 98-107 [facility] Eosinophils/100 WBC (Bld) 1.6 % 0-5 [facility] Glucose [Mass/Vol] 93 mg/dL 74-106 [facility] Hemoglobin (Bld) [Mass/Vol] 11.6 g/dL 12.0-15.0 [facility] LDH [Catalytic activity/Vol] 233 U/L 84-246 [facility] Monocytes/100 WBC (Bld) 4.1 % 0-10 [facility] Neutrophils (Bld) [#/Vol] 4.1 10*3/uL 2.0-7.7 [facility] Neutrophils/100 WBC (Bld) 79.6 % 47-70 [facility] Potassium [Moles/Vol] 4.1 mmol/L 3.5-5.1 [facility] Protein [Mass/Vol] 7.3 g/dL 6.4-8.2 [facility] Sodium [Moles/Vol] 137 mmol/L 136-145 [facility] WBC (Bld) [#/Vol] 5.1 10*3/uL 4.4-11.0 [facility] Determination of erythrocyte mean corpuscular volume (MCV)Ordered By: Alex Harrell on 05-26-2023 MCV (RBC) [Entitic vol] 83.1 fL 81-99 [facility] Erythrocyte distribution wid th ratioOrdered By: Alex Harrell on 05-26-2023 Erythrocyte distribution width (RBC) [Ratio] 13.0 % 11.6-14.6 [facility] Erythrocyte distribution wid th standard deviationOrdered By: Alex Harrell on 05-26-2023 Erythrocyte distribution width (RBC) [Entitic vol] 39.3 fL 35.1-43.9 [facility] Erythrocyte sedimentation ra teOrdered By: Alex Harrell on 05-26-2023 ESR (Bld) [Velocity] 27 mm/h 0-30 [facility] Hematocrit Auto (Bld) [Volum e fraction]Ordered By: Alex Harrell on 05-26-2023 Hematocrit (Bld) [Volume fraction] 34.5 % 37-47 [facility] Hemoglobin in reticulocytes (mass per reticulocyte)Ordered By: Alex Harrell on 05-26-2023 Hemoglobin (Reticulocytes) [Entitic mass] 31.5 pg 30-35 [facility] Immature granulocytes/100 WB C Auto (Bld)Ordered By: Alex Harrell on 05-26-2023 Immature granulocytes/100 WBC (Bld) 1.000 % 0.0-0.9 [facility] Comment on above: IG% - Immature Granu locytes (promyelocytes, myelocytes and metamyelocytes) > 1% indicates that a LEFT SHIFT is Present. Iron measurement (mass/mass) Ordered By: Alex Harrell on 05-26-2023 Iron (Unsp spec) [Mass/Mass] 26 ug/dL 50-170 [facility] Laboratory - Chemistry and C hemistry - challengeOrdered By: Wayland Orin on 05-26-2023 Albumin/Globulin [Mass ratio] 1.0 {ratio} 0.9-2.4 [facility] ALP [Catalytic activity/Vol] 86 U/L 45-117 [facility] ALT [Catalytic activity/Vol] 15 U/L 13-56 [facility] CO2 [Moles/Vol] 25.0 mmol/L 21.0-32.0 [facility] Ferritin [Mass/Vol] 852 ng/mL 8-252 [facility] Globulin (S) [Mass/Vol] 3.7 g/dL 2.2-4.2 [facility] Urea nitrogen/Creatinine [Mass ratio] 19.7 mg/mg 10-20 [facility] - Hematology and Cell countsOrdered By: Alex Harrell on 05-26-2023 MCH (RBC) [Entitic mass] 28.0 pg 27.0-32.0 [facility] MCHC (RBC) [Mass/Vol] 33.6 g/dL 32-36 [facility] Nucleated RBC/100 WBC (Bld) [Ratio] 0 % 0-5 [facility] Platelet mean volume (Bld) [Entitic vol] 9.2 fL 6.2-12.0 [facility] Platelets (Bld) [#/Vol] 177 10*3/uL 150-450 [facility] Miscellaneous procedureOrder ed By: Alex Harrell on 05-26-2023 Miscellaneous Test See comment [facility] Comment on above: TEST RESULTS LIMITSC eliac Ab tTG TIgA w/Rflx t- Transglutaminase (tTG) IgA 3 U/mL 0-3 Negative 0 - 3 Weak Positive 4 - 10 Positive >10 Tissue Transglutaminase (tTG) has been identified as the endomysial antigen. Studies have demonstr- ated that endomysial IgA antibodies have over 99% specificity for gluten sensitive enteropathy.Immunoglobulin A, Qn,Serum 191 mg/dL 87-352 [facility] ORIGINAL REPORT ON FILE IN LAB CONTAINS ADDITIONAL TEST SITE INFORMATION. No Panel InformationOrdered By: Alex Harrell on 05-26-2023 C-Reactive Protein Extended Range 36.00 mg/L 0.0-3.0 [facility] Comment on above: C-Reactive Protein ( CRP) provides useful information for thediagnosis, therapy and monitoring of inflammatory processesand associated diseases. For the evaluation of Relative Riskfor Cardiovascular Disease, a High Sensitivity CRP (HSCRP)should be ordered. Estimated Creatinine Clearance Calc 81.06 ml/min [facility] Estimated GFR (MDRD) Amer 90 mL/min >60 [facility] Comment on above: GFR Calc Estimated GFR (MDRD) Non-Af Amer 74 mL/min >60 [facility] Comment on above: Non- GFR Calc Immature Reticulocyte Fraction 7.70 % 3.00-15.90 [facility] Total Iron Binding Capacity 203 ug/dL 250-450 [facility] RBC Auto (Bld) [#/Vol]Ordere d By: Alex Harrell on 05-26-2023 RBC (Bld) [#/Vol] 4.15 10*6/uL 4.2-5.4 [facility] Reticulocytes Auto (Bld) [#/ Vol]Ordered By: Alex Harrell on 05-26-2023 Reticulocytes/100 RBC (Bld) 0.91 % 0.5-1.5 [facility] Serum or plasma calcium maria g urement (mass/volume)Ordered By: Alex Sr on 05-26-2023 Calcium [Mass/Vol] 9.0 mg/dL 8.5-10.1 [facility] Serum or plasma creatinine m easurement (mass/volume)Ordered By: Alex Harrell on 05-26-2023 Creatinine [Mass/Vol] 0.86 mg/dL 0.55-1.02 [facility] Comment on above: The validity of the calculated GFR & GFRAA in patients over 70 years has not been determined. Clinical correlation is essential. Serum or plasma iron saturat ion measurement (mass fraction)Ordered By: [facility] on 05-26-2023 Iron saturation [Mass fraction] 12.8 % 15.0-55.0 [facility] Serum or plasma urea nitroge n measurement (mass/volume)Ordered By: Alex [facility] on 05-26-2023 Urea nitrogen [Mass/Vol] 17 mg/dL 7-18 [facility] Serum or plasma uric acid me asurement (mass/volume)Ordered By: Alex Sr on 05-26-2023 Urate [Mass/Vol] 5.5 mg/dL 2.6-6.0 [facility] Comment on above: The drugs N-Acetylcy steine and Metamizole may falsely depress this assay. Thin prep Papanicolaou smear with manual screeningOrdered By: Alex Harrell on 05-26-2023 Thin prep Papanicolaou smear with manual screening 3.6 g/dL 3.2-5.0 [facility] Thin prep Papanicolaou smear with manual screening 17 U/L 15-37 [facility] Thin prep Papanicolaou smear with manual screening 5 5-15 [facility] Absolute lymphocyte countOrd ered By: Anila Weiss on 02-10-2023 Lymphocytes Auto (Unsp spec) [#/Vol] 0.61 10*3/uL 0.83-4.51 [facility] Basophil percentageOrdered B y: Anila Weiss on 02-10-2023 Basophils/100 WBC (Bld) 0.4 % 0-1 [facility] Eosinophils/100 WBC (Bld) 1.7 % 0-5 [facility] Neutrophils (Bld) [#/Vol] 3.7 10*3/uL 2.0-7.7 [facility] Neutrophils/100 WBC (Bld) 77.8 % 47-70 [facility] WBC (Bld) [#/Vol] 4.7 10*3/uL 4.4-11.0 [facility] Bilirubin Test strip Ql (U)O rdered By: Anila Weiss on 02-10-2023 Bilirubin Ql (U) Negative Negative [facility] Blood erythrocytes count (nu mber/volume)Ordered By: Anila Weiss on 02-10-2023 RBC (Bld) [#/Vol] 4.68 10*6/uL 4.2-5.4 [facility] Blood hemoglobin measurement (mass/volume)Ordered By: Anila Weiss on 02-10-2023 Hemoglobin (Bld) [Mass/Vol] 12.8 g/dL 12.0-15.0 [facility] Blood lymphocytes/100 leukoc ytesOrdered By: Anila Weiss on 02-10-2023 Lymphocytes/100 WBC (Bld) 13.0 % 19-41 [facility] Blood monocytes/100 leukocyt esOrdered By: Anila Weiss on 02-10-2023 Monocytes/100 WBC (Bld) 6.0 % 0-10 [facility] Blood platelet mean volumeOr dered By: Anila Weiss on 02-10-2023 Platelet mean volume (Bld) [Entitic vol] 9.6 fL 6.2-12.0 [facility] Determination of erythrocyte mean corpuscular volume (MCV)Ordered By: Anila Weiss on 02-10-2023 MCV (RBC) [Entitic vol] 82.9 fL 81-99 [facility] Hematocrit Auto (Bld) [Volum e fraction]Ordered By: Anila Weiss on 02-10-2023 Hematocrit (Bld) [Volume fraction] 38.8 % 37-47 [facility] Ketones Test strip Ql (U)Ord ered By: Anila Weiss on 02-10-2023 Ketones Ql (U) Negative Negative [facility] Laboratory - Chemistry and C hemistry - challengeOrdered By: Anila Weiss on 02-10-2023 ALT [Catalytic activity/Vol] 18 U/L 13-56 [facility] - Hematology and Cell countsOrdered By: Anila Weiss on 02-10-2023 Erythrocyte distribution width (RBC) [Entitic vol] 38.0 fL 35.1-43.9 [facility] Erythrocyte distribution width (RBC) [Ratio] 12.6 % 11.6-14.6 [facility] Immature granulocytes/100 WBC (Bld) 1.100 % 0.0-0.9 [facility] Comment on above: IG% - Immature Granu locytes (promyelocytes, myelocytes and metamyelocytes) > 1% indicates that a LEFT SHIFT is Present. MCH (RBC) [Entitic mass] 27.4 pg 27.0-32.0 [facility] Nucleated RBC/100 WBC (Bld) [Ratio] 0 % 0-5 [facility] MCHC Auto (RBC) [Mass/Vol]Or dered By: Anila Weiss on 02-10-2023 MCHC (RBC) [Mass/Vol] 33.0 g/dL 32-36 [facility] Nitrite Test strip Ql (U)Ord ered By: Anila Weiss on 02-10-2023 Nitrite Ql (U) Negative Negative [facility] No Panel InformationOrdered By: Anila Weiss on 02-10-2023 Estimated GFR (MDRD) Amer 83 mL/min >60 [facility] Comment on above: GFR Calc Estimated GFR (MDRD) Non-Af Amer 68 mL/min >60 [facility] Comment on above: Non- GFR Calc Platelets bldOrdered By: Anu Weiss on 02-10-2023 Platelets (Bld) [#/Vol] 132 10*3/uL 150-450 [facility] Protein Test strip Ql (U)Ord ered By: Anila Weiss on 02-10-2023 Protein Ql (U) 15 mg/dl Negative [facility] Serum DNA double strand anti body assay (units/volume)Ordered By: Anila Weiss on 02-10-2023 DNA double strand Ab Qn (S) 7 [IU]/mL 0-9 [facility] Comment on above: Negative <5 Equivoca l 5 - 9 Positive >9Performed at: [facility] [address] [id number] Director: Wilner Suarez PhD, Phone: [phone] Serum or plasma C reactive p rotein measurement (mass/volume)Ordered By: Anila Weiss on 02-10-2023 CRP [Mass/Vol] 33.20 mg/L 0.0-3.0 [facility] Comment on above: C-Reactive Protein ( CRP) provides useful information for thediagnosis, therapy and monitoring of inflammatory processesand associated diseases. For the evaluation of Relative Riskfor Cardiovascular Disease, a High Sensitivity CRP (HSCRP)should be ordered. Serum or plasma albumin maria g urement (mass/volume)Ordered By: Anila Weiss on 02-10-2023 Albumin [Mass/Vol] 3.6 g/dL 3.2-5.0 [facility] Serum or plasma complement C 3 measurement (mass/volume)Ordered By: Anila Weiss on 02-10-2023 Complement C3 [Mass/Vol] 104 mg/dL 82-167 [facility] Comment on above: Performed at: - [facility] [address] [id number] Director: Wilner Suarez PhD, Phone: [phone] Serum or plasma complement C 4 measurement (mass/volume)Ordered By: Anila Weiss on 02-10-2023 Complement C4 [Mass/Vol] 18 mg/dL 12-38 [facility] Serum or plasma creatinine m easurement (mass/volume)Ordered By: Anila Weiss on 02-10-2023 Creatinine [Mass/Vol] 0.93 mg/dL 0.55-1.02 [facility] Comment on above: The validity of the calculated GFR & GFRAA in patients over 70 years has not been determined. Clinical correlation is essential. Serum or plasma urea nitroge n measurement (mass/volume)Ordered By: Anila Weiss on 02-10-2023 Urea nitrogen [Mass/Vol] 18 mg/dL 7-18 [facility] Thin prep Papanicolaou smear with manual screeningOrdered By: Anila Weiss on 02-10-2023 Thin prep Papanicolaou smear with manual screening 19 U/L 15-37 [facility] Urine blood detectionOrdered By: Anila Weiss on 02-10-2023 RBC Ql (U) Negative Negative [facility] Urine clarityOrdered By: Anu Weiss on 02-10-2023 Clarity (U) Clear Clear [facility] Urine color determinationOrd ered By: Anila Weiss on 02-10-2023 Color (U) Yellow Yellow [facility] Urine creatinine measurement (mass/volume)Ordered By: Anila Weiss on 02-10-2023 Creatinine (U) [Mass/Vol] 85.20 mg/dL NO RANGE EST. [facility] Urine glucose detectionOrder ed By: Anila Weiss on 02-10-2023 Glucose Ql (U) Normal mg/dl Normal [facility] Urine leukocyte esterase det ection by dipstickOrdered By: Anila Weiss on 02-10-2023 Leukocyte esterase Test strip Ql (U) Negative Negative [facility] Urine pHOrdered By: Anila johnson on 02-10-2023 pH (U) 6.0 [pH] 5.0 - 8.0 [facility] Urine protein measurement (m ass/volume)Ordered By: Anila Weiss on 02-10-2023 Protein (U) [Mass/Vol] 32.1 mg/dL 0.0-11.8 [facility] Urine protein/creatinine mas s ratioOrdered By: Anila Weiss on 02-10-2023 Protein/Creatinine (U) [Mass ratio] 377 mg/g CRE 0-200 [facility] Urine specific gravity measu rementOrdered By: Anila Weiss on 02-10-2023 Specific gravity (U) [Rel density] 1.015 1.002-1.030 [facility] Urobilinogen Auto test strip Ql (U)Ordered By: Anila Weiss on 02-10-2023 Urobilinogen Ql (U) Normal mg/dl Normal [facility] Absolute lymphocyte countOrd ered By: Alex Julio Cesar on 02-03-2023 Lymphocytes Auto (Unsp spec) [#/Vol] 0.65 10*3/uL 0.83-4.51 [facility] Basophil percentageOrdered B y: Alex Harrell on 02-03-2023 Basophils/100 WBC (Bld) 0.5 % 0-1 [facility] Bilirubin [Mass/Vol] 0.40 mg/dL 0.20-1.00 [facility] Comment on above: For patients on eltr ombopag therapy, use of Dimension [place] TBIL is not recommended. Chloride [Moles/Vol] 108 mmol/L 98-107 [facility] Eosinophils/100 WBC (Bld) 1.9 % 0-5 [facility] Glucose [Mass/Vol] 102 mg/dL 74-106 [facility] Comment on above: Fasting Glucose resu lt from 100 to 125 mg/dL suggests IMPAIRED HOMEOSTASIS per A.D.A. criteria. LDH [Catalytic activity/Vol] 234 U/L 84-246 [facility] Neutrophils (Bld) [#/Vol] 3.0 10*3/uL 2.0-7.7 [facility] Neutrophils/100 WBC (Bld) 72.9 % 47-70 [facility] Potassium [Moles/Vol] 3.9 mmol/L 3.5-5.1 [facility] Protein [Mass/Vol] 7.3 g/dL 6.4-8.2 [facility] Sodium [Moles/Vol] 139 mmol/L 136-145 [facility] WBC (Bld) [#/Vol] 4.2 10*3/uL 4.4-11.0 [facility] Blood erythrocytes count (nu mber/volume)Ordered By: Alex Harrell on 02-03-2023 RBC (Bld) [#/Vol] 4.16 10*6/uL 4.2-5.4 [facility] Blood hemoglobin measurement (mass/volume)Ordered By: Alex Harrell on 02-03-2023 Hemoglobin (Bld) [Mass/Vol] 11.6 g/dL 12.0-15.0 [facility] Blood lymphocytes/100 leukoc ytesOrdered By: Wayland Julio Cesar on 02-03-2023 Lymphocytes/100 WBC (Bld) 15.7 % 19-41 [facility] Blood monocytes/100 leukocyt esOrdered By: [facility] on 02-03-2023 Monocytes/100 WBC (Bld) 8.0 % 0-10 [facility] Blood platelet mean volumeOr dered By: [facility] on 02-03-2023 Platelet mean volume (Bld) [Entitic vol] 9.7 fL 6.2-12.0 [facility] Determination of erythrocyte mean corpuscular volume (MCV)Ordered By: [facility] on 02-03-2023 MCV (RBC) [Entitic vol] 82.9 fL 81-99 [facility] Hematocrit Auto (Bld) [Volum e fraction]Ordered By: [facility] on 02-03-2023 Hematocrit (Bld) [Volume fraction] 34.5 % 37-47 [facility] Iron measurement (mass/mass) Ordered By: Wayland Orin on 02-03-2023 Iron (Unsp spec) [Mass/Mass] 35 ug/dL 50-170 [facility] - Chemistry and C hemistry - challengeOrdered By: [facility] on 02-03-2023 ALP [Catalytic activity/Vol] 82 U/L 45-117 [facility] ALT [Catalytic activity/Vol] 17 U/L 13-56 [facility] CO2 [Moles/Vol] 26.0 mmol/L 21.0-32.0 [facility] Globulin (S) [Mass/Vol] 3.8 g/dL 2.2-4.2 [facility] Urea nitrogen/Creatinine [Mass ratio] 17.5 mg/mg 10-20 [facility] - Hematology and Cell countsOrdered By: [facility] on 02-03-2023 Erythrocyte distribution width (RBC) [Entitic vol] 37.7 fL 35.1-43.9 [facility] Erythrocyte distribution width (RBC) [Ratio] 12.4 % 11.6-14.6 [facility] Immature granulocytes/100 WBC (Bld) 1.000 % 0.0-0.9 [facility] Comment on above: IG% - Immature Granu locytes (promyelocytes, myelocytes and metamyelocytes) > 1% indicates that a LEFT SHIFT is Present. MCH (RBC) [Entitic mass] 27.9 pg 27.0-32.0 [facility] Nucleated RBC/100 WBC (Bld) [Ratio] 0 % 0-5 [facility] MCHC Auto (RBC) [Mass/Vol]Or dered By: Alex Harrell on 02-03-2023 MCHC (RBC) [Mass/Vol] 33.6 g/dL 32-36 [facility] No Panel InformationOrdered By: Alex Harrell on 02-03-2023 Estimated Creatinine Clearance Calc 59.15 ml/min [facility] Estimated GFR (MDRD) Amer 84 mL/min >60 [facility] Comment on above: GFR Calc Estimated GFR (MDRD) Non-Af Amer 70 mL/min >60 [facility] Comment on above: Non- GFR Calc Total Iron Binding Capacity 213 ug/dL 250-450 [facility] Platelets bldOrdered By: Daniel Harrell on 02-03-2023 Platelets (Bld) [#/Vol] 137 10*3/uL 150-450 [facility] Serum or plasma albumin maria g urement (mass/volume)Ordered By: Alex Harrell on 02-03-2023 Albumin [Mass/Vol] 3.5 g/dL 3.2-5.0 [facility] Serum or plasma albumin/glob ulin mass ratioOrdered By: Alex Harrell on 02-03-2023 Albumin/Globulin [Mass ratio] 0.9 {ratio} 0.9-2.4 [facility] Serum or plasma calcium maria g urement (mass/volume)Ordered By: Alex Harrell on 02-03-2023 Calcium [Mass/Vol] 8.3 mg/dL 8.5-10.1 [facility] Serum or plasma creatinine m easurement (mass/volume)Ordered By: Alex Harrell on 02-03-2023 Creatinine [Mass/Vol] 0.91 mg/dL 0.55-1.02 [facility] Comment on above: The validity of the calculated GFR & GFRAA in patients over 70 years has not been determined. Clinical correlation is essential. Serum or plasma ferritin lo surement (mass/volume)Ordered By: Alex Harrell on 02-03-2023 Ferritin [Mass/Vol] 778 ng/mL 8-252 [facility] Serum or plasma iron saturat ion measurement (mass fraction)Ordered By: Alxe Sralfonso on 02-03-2023 Iron saturation [Mass fraction] 16.4 % 15.0-55.0 [facility] Serum or plasma urea nitroge n measurement (mass/volume)Ordered By: Alex Harrell on 02-03-2023 Urea nitrogen [Mass/Vol] 16 mg/dL 7-18 [facility] Serum tissue transglutaminas e IgA antibody assay (units/volume)Ordered By: Alex Harrell on 02-03-2023 tTG IgA Qn (S) 10 U/mL 0-3 [facility] Comment on above: Negative 0 - 3 Weak Positive 4 - 10 Positive >10 Tissue Transglutaminase (tTG) has been identified as the endomysial antigen. Studies have demonstr- ated that endomysial IgA antibodies have over 99% specificity for gluten sensitive enteropathy.Performed at: [employer] [employer] [id number] Director: Wilner Suarez PhD, Phone: [phone] Thin prep Papanicolaou smear with manual screeningOrdered By: Alex Harrell on 02-03-2023 Thin prep Papanicolaou smear with manual screening 18 U/L 15 [facility] Thin prep Papanicolaou smear with manual screening 5 5-15 [facility] Basophil percentageOrdered B y: Bhupinder Hamlin on 01-08-2023 Cholesterol [Mass/Vol] 168 mg/dL <200 [facility] Comment on above: <200 mg/dL Desirable 200-240 mg/dL Borderline >240 mg/dL High Risk Triglyceride [Mass/Vol] 169 mg/dL <199 [facility] Comment on above: The drugs N-Acetylcy steine and Metamizole may falsely depress this assay.Serum Triglycerides Reference Interval Normal <150 mg/dL Borderline high 150 - 199 mg/dL High 200 - 499 mg/dL Very High > or = 500 mg/dL Serum or plasma cholesterol in HDL measurement (mass/volume)Ordered By: Bhupinder Hamlin on 01-08-2023 Cholesterol in HDL [Mass/Vol] 37 mg/dL >40 [facility] Comment on above: The drugs N-Acetylcy steine and Metamizole may falsely depress this assay. Reference Range HDL <40 mg/dL Low HDL Cholesterol HDL >or= 60 mg/dL High HDL Cholesterol Serum or plasma cholesterol in VLDL measurement (mass/volume)Ordered By: Bhupinder Hamlin on 01-08-2023 Cholesterol in VLDL [Mass/Vol] 34 mg/dL 5-40 [facility] Serum or plasma low density lipoprotein (LDL) cholesterol measurement (mass/volume)Ordered By: Bhupinder Hamlin on 01-08-2023 Cholesterol in LDL [Mass/Vol] 97 mg/dL 0-130 [facility] Absolute lymphocyte countOrd ered By: Anila Weiss on 12-17-2022 Lymphocytes Auto (Unsp spec) [#/Vol] 0.61 10*3/uL 0.83-4.51 [facility] Basophil percentageOrdered B y: Anila Weiss on 12-17-2022 Basophils/100 WBC (Bld) 0.4 % 0-1 [facility] Eosinophils/100 WBC (Bld) 1.7 % 0-5 [facility] Neutrophils (Bld) [#/Vol] 4.2 10*3/uL 2.0-7.7 [facility] Neutrophils/100 WBC (Bld) 79.8 % 47-70 [facility] WBC (Bld) [#/Vol] 5.3 10*3/uL 4.4-11.0 [facility] Bilirubin Test strip Ql (U)O rdered By: Anila Weiss on 12-17-2022 Bilirubin Ql (U) Negative Negative [facility] Blood erythrocytes count (nu mber/volume)Ordered By: Anila Weiss on 12-17-2022 RBC (Bld) [#/Vol] 4.76 10*6/uL 4.2-5.4 [facility] Blood hemoglobin measurement (mass/volume)Ordered By: Anila Weiss on 12-17-2022 Hemoglobin (Bld) [Mass/Vol] 13.4 g/dL 12.0-15.0 [facility] Blood lymphocytes/100 leukoc ytesOrdered By: Anila Weiss on 12-17-2022 Lymphocytes/100 WBC (Bld) 11.5 % 19-41 [facility] Blood monocytes/100 leukocyt esOrdered By: Anila Weiss on 12-17-2022 Monocytes/100 WBC (Bld) 6.0 % 0-10 [facility] Blood platelet mean volumeOr dered By: Anila Weiss on 12-17-2022 Platelet mean volume (Bld) [Entitic vol] 9.6 fL 6.2-12.0 [facility] Determination of erythrocyte mean corpuscular volume (MCV)Ordered By: Anila Weiss on 12-17-2022 MCV (RBC) [Entitic vol] 84.9 fL 81-99 [facility] Hematocrit Auto (Bld) [Volum e fraction]Ordered By: Anila Weiss on 12-17-2022 Hematocrit (Bld) [Volume fraction] 40.4 % 37-47 [facility] Ketones Test strip Ql (U)Ord ered By: Anila Weiss on 12-17-2022 Ketones Ql (U) Negative Negative [facility] - Chemistry and C hemistry - challengeOrdered By: Anila Weiss on 12-17-2022 ALT [Catalytic activity/Vol] 21 U/L 13-56 [facility] - Hematology and Cell countsOrdered By: Anila Weiss on 12-17-2022 Erythrocyte distribution width (RBC) [Entitic vol] 38.9 fL 35.1-43.9 [facility] Erythrocyte distribution width (RBC) [Ratio] 12.6 % 11.6-14.6 [facility] Immature granulocytes/100 WBC (Bld) 0.600 % 0.0-0.9 [facility] Comment on above: IG% - Immature Granu locytes (promyelocytes, myelocytes and metamyelocytes) > 1% indicates that a LEFT SHIFT is Present. MCH (RBC) [Entitic mass] 28.2 pg 27.0-32.0 [facility] Nucleated RBC/100 WBC (Bld) [Ratio] 0 % 0-5 [facility] MCHC Auto (RBC) [Mass/Vol]Or dered By: Anila Weiss on 12-17-2022 MCHC (RBC) [Mass/Vol] 33.2 g/dL 32-36 [facility] Nitrite Test strip Ql (U)Ord ered By: Anila Weiss on 12-17-2022 Nitrite Ql (U) Negative Negative [facility] No Panel InformationOrdered By: Anila Weiss on 12-17-2022 Estimated GFR (MDRD) Amer 86 mL/min >60 [facility] Comment on above: GFR Calc Estimated GFR (MDRD) Non-Af Amer 71 mL/min >60 [facility] Comment on above: Non- GFR Calc Platelets bldOrdered By: Anu Weiss on 12-17-2022 Platelets (Bld) [#/Vol] 109 10*3/uL 150-450 [facility] Protein Test strip Ql (U)Ord ered By: Anila Weiss on 12-17-2022 Protein Ql (U) Negative Negative [facility] Serum DNA double strand anti body assay (units/volume)Ordered By: Anila Weiss on 12-17-2022 DNA double strand Ab Qn (S) 10 [IU]/mL 0-9 [facility] Comment on above: Negative <5 Equivoca l 5 - 9 Positive >9Performed at: [facility] [address] Director: Wilner Suarez PhD, Phone: [phone] Serum or plasma C reactive p rotein measurement (mass/volume)Ordered By: Anila Weiss on 12-17-2022 CRP [Mass/Vol] 19.80 mg/L 0.0-3.0 [facility] Comment on above: C-Reactive Protein ( CRP) provides useful information for thediagnosis, therapy and monitoring of inflammatory processesand associated diseases. For the evaluation of Relative Riskfor Cardiovascular Disease, a High Sensitivity CRP (HSCRP)should be ordered. Serum or plasma albumin maria g urement (mass/volume)Ordered By: Anila Weiss on 12-17-2022 Albumin [Mass/Vol] 3.6 g/dL 3.2-5.0 [facility] Serum or plasma complement C 3 measurement (mass/volume)Ordered By: Anila Weiss on 12-17-2022 Complement C3 [Mass/Vol] 105 mg/dL 82-167 [facility] Comment on above: Performed at: [facility] [place] [id number] Director: Wilner Suarez PhD, Phone: [phone] Serum or plasma complement C 4 measurement (mass/volume)Ordered By: Anila Weiss on 12-17-2022 Complement C4 [Mass/Vol] 17 mg/dL 12 [facility] Serum or plasma creatinine m easurement (mass/volume)Ordered By: Anila Weiss on 12-17-2022 Creatinine [Mass/Vol] 0.90 mg/dL 0.55-1.02 [facility] Comment on above: The validity of the calculated GFR & GFRAA in patients over 70 years has not been determined. Clinical correlation is essential. Serum or plasma urea nitroge n measurement (mass/volume)Ordered By: Anila Weiss on 12-17-2022 Urea nitrogen [Mass/Vol] 13 mg/dL 7-18 [facility] Thin prep Papanicolaou smear with manual screeningOrdered By: Anila Weiss on 12-17-2022 Thin prep Papanicolaou smear with manual screening 21 U/L 15 [facility] Urine blood detectionOrdered By: Anila Weiss on 12-17-2022 RBC Ql (U) Negative Negative [facility] Urine clarityOrdered By: Anu Weiss on 12-17-2022 Clarity (U) Clear Clear [facility] Urine color determinationOrd ered By: Anila Weiss on 12-17-2022 Color (U) Yellow Yellow [facility] Urine creatinine measurement (mass/volume)Ordered By: Anila Weiss on 12-17-2022 Creatinine (U) [Mass/Vol] 81.00 mg/dL NO RANGE EST. [facility] Urine glucose detectionOrder ed By: Anila Weiss on 12-17-2022 Glucose Ql (U) Normal mg/dl Normal [facility] Urine leukocyte esterase det ection by dipstickOrdered By: Anila Weiss on 12-17-2022 Leukocyte esterase Test strip Ql (U) Negative Negative [facility] Urine pHOrdered By: Anila johnson on 12-17-2022 pH (U) 6.0 [pH] 5.0 - 8.0 [facility] Urine protein measurement (m ass/volume)Ordered By: Anila Weiss on 12-17-2022 Protein (U) [Mass/Vol] 19.3 mg/dL 0.0-11.8 [facility] Urine protein/creatinine mas s ratioOrdered By: Anila Weiss on 12-17-2022 Protein/Creatinine (U) [Mass ratio] 238 mg/g CRE 0-200 [facility] Urine specific gravity measu rementOrdered By: Anila Weiss on 12-17-2022 Specific gravity (U) [Rel density] 1.015 1.002-1.030 [facility] Urobilinogen Auto test strip Ql (U)Ordered By: Anila Weiss on 12-17-2022 Urobilinogen Ql (U) Normal mg/dl Normal [facility] Basophil percentageOrdered B y: Deejay Dawson on 11-04-2022 Ammonia (P) [Moles/Vol] 21.0 umol/L - [facility] No Panel InformationOrdered By: Deejay Dawson on 11-04-2022 Levetiracetam (Keppra) Level 24.9 ug/mL 10.0-40.0 [facility] Comment on above: Performed at: - [address] [id number] Director: Alexis Stallworth MD, Phone: [phone] Absolute lymphocyte countOrd ered By: Anila Weiss on 10-19-2022 Lymphocytes Auto (Unsp spec) [#/Vol] 0.72 10*3/uL 0.83-4.51 [facility] Basophil percentageOrdered B y: Anila Weiss on 10-19-2022 Basophils/100 WBC (Bld) 0.4 % 0-1 [facility] Eosinophils/100 WBC (Bld) 1.5 % 0-5 [facility] Neutrophils (Bld) [#/Vol] 3.6 10*3/uL 2.0-7.7 [facility] Neutrophils/100 WBC (Bld) 75.9 % 47-70 [facility] WBC (Bld) [#/Vol] 4.7 10*3/uL 4.4-11.0 [facility] Bilirubin Test strip Ql (U)O rdered By: Anila Weiss on 10-19-2022 Bilirubin Ql (U) Negative Negative [facility] Blood erythrocytes count (nu mber/volume)Ordered By: Anila Weiss on 10-19-2022 RBC (Bld) [#/Vol] 4.34 10*6/uL 4.2-5.4 [facility] Blood hemoglobin measurement (mass/volume)Ordered By: Anila Weiss on 10-19-2022 Hemoglobin (Bld) [Mass/Vol] 11.9 g/dL 12.0-15.0 [facility] Blood lymphocytes/100 leukoc ytesOrdered By: Anila Weiss on 10-19-2022 Lymphocytes/100 WBC (Bld) 15.4 % 19-41 [facility] Blood monocytes/100 leukocyt esOrdered By: Anila Weiss on 10-19-2022 Monocytes/100 WBC (Bld) 5.3 % 0-10 [facility] Blood platelet mean volumeOr dered By: Anila Weiss on 10-19-2022 Platelet mean volume (Bld) [Entitic vol] 9.9 fL 6.2-12.0 [facility] Determination of erythrocyte mean corpuscular volume (MCV)Ordered By: Anila Weiss on 10-19-2022 MCV (RBC) [Entitic vol] 84.6 fL 81-99 [facility] Hematocrit Auto (Bld) [Volum e fraction]Ordered By: Anila Weiss on 10-19-2022 Hematocrit (Bld) [Volume fraction] 36.7 % 37-47 [facility] Ketones Test strip Ql (U)Ord ered By: Anila Weiss on 10-19-2022 Ketones Ql (U) Negative Negative [facility] - Chemistry and C hemistry - challengeOrdered By: Anila Weiss on 10-19-2022 ALT [Catalytic activity/Vol] 22 U/L 13-56 [facility] - Hematology and Cell countsOrdered By: Anila Weiss on 10-19-2022 Erythrocyte distribution width (RBC) [Entitic vol] 40.5 fL 35.1-43.9 [facility] Erythrocyte distribution width (RBC) [Ratio] 13.1 % 11.6-14.6 [facility] Immature granulocytes/100 WBC (Bld) 1.500 % 0.0-0.9 [facility] Comment on above: IG% - Immature Granu locytes (promyelocytes, myelocytes and metamyelocytes) > 1% indicates that a LEFT SHIFT is Present. MCH (RBC) [Entitic mass] 27.4 pg 27.0-32.0 [facility] Nucleated RBC/100 WBC (Bld) [Ratio] 0 % 0-5 [facility] MCHC Auto (RBC) [Mass/Vol]Or dered By: Anila Weiss on 10-19-2022 MCHC (RBC) [Mass/Vol] 32.4 g/dL 32-36 [facility] Nitrite Test strip Ql (U)Ord ered By: Anila Weiss on 10-19-2022 Nitrite Ql (U) Negative Negative [facility] No Panel InformationOrdered By: Anila Weiss on 10-19-2022 Estimated GFR (MDRD) Amer 68 mL/min >60 [facility] Comment on above: GFR Calc Estimated GFR (MDRD) Non-Af Amer 56 mL/min >60 [facility] Comment on above: Non- GFR Calc Platelets bldOrdered By: Anu Weiss on 10-19-2022 Platelets (Bld) [#/Vol] 138 10*3/uL 150-450 [facility] Protein Test strip Ql (U)Ord ered By: Anila Weiss on 10-19-2022 Protein Ql (U) Negative Negative [facility] Serum DNA double strand anti body assay (units/volume)Ordered By: Anila Weiss on 10-19-2022 DNA double strand Ab Qn (S) 12 [IU]/mL 0-9 [facility] Comment on above: Negative <5 Equivoca l 5 - 9 Positive >9Performed at: - [facility] [address] [id number] Director: Wilner Suarez PhD, Phone: [phone] Serum or plasma C reactive p rotein measurement (mass/volume)Ordered By: Anila Weiss on 10-19-2022 CRP [Mass/Vol] 8.84 mg/L 0.0-3.0 [facility] Comment on above: C-Reactive Protein ( CRP) provides useful information for thediagnosis, therapy and monitoring of inflammatory processesand associated diseases. For the evaluation of Relative Riskfor Cardiovascular Disease, a High Sensitivity CRP (HSCRP)should be ordered. Serum or plasma albumin maria g urement (mass/volume)Ordered By: Anila Weiss on 10-19-2022 Albumin [Mass/Vol] 3.7 g/dL 3.2-5.0 [facility] Serum or plasma complement C 3 measurement (mass/volume)Ordered By: Anila Weiss on 10-19-2022 Complement C3 [Mass/Vol] 112 mg/dL 82-167 [facility] Comment on above: Performed at: [facility] [employer] [address] [id number] Director: Wilner Suarez PhD, Phone: [phone] Serum or plasma complement C 4 measurement (mass/volume)Ordered By: Anila Weiss on 10-19-2022 Complement C4 [Mass/Vol] 14 mg/dL 12-38 [facility] Serum or plasma creatinine m easurement (mass/volume)Ordered By: Anila Weiss on 10-19-2022 Creatinine [Mass/Vol] 1.10 mg/dL 0.55-1.02 [facility] Comment on above: The validity of the calculated GFR & GFRAA in patients over 70 years has not been determined. Clinical correlation is essential. Serum or plasma urea nitroge n measurement (mass/volume)Ordered By: Anila Weiss on 10-19-2022 Urea nitrogen [Mass/Vol] 20 mg/dL 7-18 [facility] Thin prep Papanicolaou smear with manual screeningOrdered By: Anila Weiss on 10-19-2022 Thin prep Papanicolaou smear with manual screening 20 U/L 15-37 [facility] Urine blood detectionOrdered By: Anila Weiss on 10-19-2022 RBC Ql (U) Negative Negative [facility] Urine clarityOrdered By: Anu Weiss on 10-19-2022 Clarity (U) Clear Clear [facility] Urine color determinationOrd ered By: Anila Weiss on 10-19-2022 Color (U) Yellow Yellow [facility] Urine creatinine measurement (mass/volume)Ordered By: Anila Weiss on 10-19-2022 Creatinine (U) [Mass/Vol] 45.80 mg/dL NO RANGE EST. [facility] Urine glucose detectionOrder ed By: Anila Weiss on 10-19-2022 Glucose Ql (U) Normal mg/dl Normal [facility] Urine leukocyte esterase det ection by dipstickOrdered By: Anila Weiss on 10-19-2022 Leukocyte esterase Test strip Ql (U) 25 /ul Negative [facility] Urine pHOrdered By: Anila johnson on 10-19-2022 pH (U) 6.0 [pH] 5.0 - 8.0 [facility] Urine protein measurement (m ass/volume)Ordered By: Anila Weiss on 10-19-2022 Protein (U) [Mass/Vol] 9.4 mg/dL 0.0-11.8 [facility] Urine protein/creatinine mas s ratioOrdered By: Anila Weiss on 10-19-2022 Protein/Creatinine (U) [Mass ratio] 205 mg/g CRE 0-200 [facility] Urine specific gravity measu rementOrdered By: Anila Weiss on 10-19-2022 Specific gravity (U) [Rel density] 1.015 1.002-1.030 [facility] Urobilinogen Auto test strip Ql (U)Ordered By: Anila Weiss on 10-19-2022 Urobilinogen Ql (U) Normal mg/dl Normal [facility] Absolute lymphocyte countOrd ered By: Alex Harrell on 07-29-2022 Lymphocytes Auto (Unsp spec) [#/Vol] 0.62 10*3/uL 0.83-4.51 [facility] Basophil percentageOrdered B y: Alex Harrell on 07-29-2022 Basophils/100 WBC (Bld) 0.4 % 0-1 [facility] Bilirubin [Mass/Vol] 0.80 mg/dL 0.20-1.00 [facility] Comment on above: For patients on eltr ombopag therapy, use of Dimension [place] TBIL is not recommended. Chloride [Moles/Vol] 101 mmol/L 98-107 [facility] Eosinophils/100 WBC (Bld) 1.2 % 0-5 [facility] Glucose [Mass/Vol] 90 mg/dL 74-106 [facility] LDH [Catalytic activity/Vol] 222 U/L 84-246 [facility] Neutrophils (Bld) [#/Vol] 3.9 10*3/uL 2.0-7.7 [facility] Neutrophils/100 WBC (Bld) 79.0 % 47-70 [facility] Potassium [Moles/Vol] 4.3 mmol/L 3.5-5.1 [facility] Protein [Mass/Vol] 7.9 g/dL 6.4-8.2 [facility] Sodium [Moles/Vol] 136 mmol/L 136-145 [facility] WBC (Bld) [#/Vol] 5.0 10*3/uL 4.4-11.0 [facility] Blood erythrocytes count (nu mber/volume)Ordered By: Alex Harrell on 07-29-2022 RBC (Bld) [#/Vol] 4.75 10*6/uL 4.2-5.4 [facility] Blood hemoglobin measurement (mass/volume)Ordered By: Alex Harrell on 07-29-2022 Hemoglobin (Bld) [Mass/Vol] 13.3 g/dL 12.0-15.0 [facility] Blood lymphocytes/100 leukoc ytesOrdered By: Alex Harrell on 07-29-2022 Lymphocytes/100 WBC (Bld) 12.4 % 19-41 [facility] Blood monocytes/100 leukocyt esOrdered By: Alex Harrell on 07-29-2022 Monocytes/100 WBC (Bld) 5.8 % 0-10 [facility] Blood platelet mean volumeOr dered By: Alex Harrell on 07-29-2022 Platelet mean volume (Bld) [Entitic vol] 9.3 fL 6.2-12.0 [facility] Determination of erythrocyte mean corpuscular volume (MCV)Ordered By: Alex Harrell on 07-29-2022 MCV (RBC) [Entitic vol] 86.3 fL 81-99 [facility] Hematocrit Auto (Bld) [Volum e fraction]Ordered By: Alex Harrell on 07-29-2022 Hematocrit (Bld) [Volume fraction] 41.0 % 37-47 [facility] Iron measurement (mass/mass) Ordered By: Alex Harrell on 07-29-2022 Iron (Unsp spec) [Mass/Mass] 45 ug/dL 50-170 [facility] - Chemistry and C hemistry - challengeOrdered By: Alex Harrell on 07-29-2022 ALP [Catalytic activity/Vol] 87 U/L 45-117 [facility] ALT [Catalytic activity/Vol] 23 U/L 13-56 [facility] CO2 [Moles/Vol] 27.0 mmol/L 21.0-32.0 [facility] Cobalamin (Vitamin B12) [Mass/Vol] 553 pg/mL 211-911 [facility] Globulin (S) [Mass/Vol] 4.2 g/dL 2.2-4.2 [facility] Urea nitrogen/Creatinine [Mass ratio] 21.6 mg/mg 10-20 [facility] - Hematology and Cell countsOrdered By: Alex Harrell on 07-29-2022 Erythrocyte distribution width (RBC) [Entitic vol] 41.6 fL 35.1-43.9 [facility] Erythrocyte distribution width (RBC) [Ratio] 13.2 % 11.6-14.6 [facility] Immature granulocytes/100 WBC (Bld) 1.200 % 0.0-0.9 [facility] Comment on above: IG% - Immature Granu locytes (promyelocytes, myelocytes and metamyelocytes) > 1% indicates that a LEFT SHIFT is Present. MCH (RBC) [Entitic mass] 28.0 pg 27.0-32.0 [facility] Nucleated RBC/100 WBC (Bld) [Ratio] 0 % 0-5 [facility] MCHC Auto (RBC) [Mass/Vol]Or dered By: Alex Harrell on 07-29-2022 MCHC (RBC) [Mass/Vol] 32.4 g/dL 32-36 [facility] No Panel InformationOrdered By: Alex Harrell on 07-29-2022 Estimated Creatinine Clearance Calc 58.51 ml/min [facility] Estimated GFR (MDRD) Amer 83 mL/min >60 [facility] Comment on above: GFR Calc Estimated GFR (MDRD) Non-Af Amer 69 mL/min >60 [facility] Comment on above: Non- GFR Calc Total Iron Binding Capacity 231 ug/dL 250-450 [facility] Platelets bldOrdered By: Daniel Harrell on 07-29-2022 Platelets (Bld) [#/Vol] 151 10*3/uL 150-450 [facility] Serum or plasma albumin maria g urement (mass/volume)Ordered By: Alex Harrell on 07-29-2022 Albumin [Mass/Vol] 3.7 g/dL 3.2-5.0 [facility] Serum or plasma albumin/glob ulin mass ratioOrdered By: Alex Harrell on 07-29-2022 Albumin/Globulin [Mass ratio] 0.9 {ratio} 0.9-2.4 [facility] Serum or plasma calcium maria g urement (mass/volume)Ordered By: Alex Harrell on 07-29-2022 Calcium [Mass/Vol] 9.4 mg/dL 8.5-10.1 [facility] Serum or plasma creatinine m easurement (mass/volume)Ordered By: Alex Harrell on 07-29-2022 Creatinine [Mass/Vol] 0.93 mg/dL 0.55-1.02 [facility] [facility] Comment on above: The validity of the calculated GFR & GFRAA in patients over 70 years has not been determined. Clinical correlation is essential. Serum or plasma ferritin lo surement (mass/volume)Ordered By: Alex Harrell on 07-29-2022 Ferritin [Mass/Vol] 772 ng/mL 8252 [facility] Serum or plasma iron saturat ion measurement (mass fraction)Ordered By: Alex Harrell on 07-29-2022 Iron saturation [Mass fraction] 19.5 % 15.0-55.0 [facility] Serum or plasma urea nitroge n measurement (mass/volume)Ordered By: lAex Harrell on 07-29-2022 Urea nitrogen [Mass/Vol] 20 mg/dL 7-18 [facility] Thin prep Papanicolaou smear with manual screeningOrdered By: Alex Harrell on 07-29-2022 Thin prep Papanicolaou smear with manual screening 24 U/L 15-37 [facility] Thin prep Papanicolaou smear with manual screening 8 5-15 [facility] Absolute lymphocyte countOrd ered By: Dr. Weiss on 06-26-2022 Lymphocytes Auto (Unsp spec) [#/Vol] 0.70 10*3/uL 0.83-4.51 [facility] Basophil percentageOrdered B y: Dr. Weiss on 06-26-2022 Basophil percentage 0 SEEN /hpf 0-5 [facility] Basophils/100 WBC (Bld) 0.4 % 0-1 [facility] Eosinophils/100 WBC (Bld) 0.7 % 0-5 [facility] Neutrophils (Bld) [#/Vol] 4.4 10*3/uL 2.0-7.7 [facility] Neutrophils/100 WBC (Bld) 79.9 % 47-70 [facility] WBC (Bld) [#/Vol] 5.5 10*3/uL 4.4-11.0 [facility] Bilirubin Test strip Ql (U)O rdered By: Dr. Weiss on 06-26-2022 Bilirubin Ql (U) Negative Negative [facility] Blood erythrocytes count (nu mber/volume)Ordered By: Dr. Weiss on 06-26-2022 RBC (Bld) [#/Vol] 4.21 10*6/uL 4.2-5.4 [facility] Blood hemoglobin measurement (mass/volume)Ordered By: Dr. Weiss on 06-26-2022 Hemoglobin (Bld) [Mass/Vol] 11.8 g/dL 12.0-15.0 [facility] Blood lymphocytes/100 leukoc ytesOrdered By: Dr. Weiss on 06-26-2022 Lymphocytes/100 WBC (Bld) 12.8 % 19-41 [facility] Blood monocytes/100 leukocyt esOrdered By: Dr. Weiss on 06-26-2022 Monocytes/100 WBC (Bld) 5.5 % 0-10 [facility] Blood platelet mean volumeOr dered By: Dr. Weiss on 06-26-2022 Platelet mean volume (Bld) [Entitic vol] 9.6 fL 6.2-12.0 [facility] Determination of erythrocyte mean corpuscular volume (MCV)Ordered By: Dr. Weiss on 06-26-2022 MCV (RBC) [Entitic vol] 84.8 fL 81-99 [facility] Hematocrit Auto (Bld) [Volum e fraction]Ordered By: Dr. Weiss on 06-26-2022 Hematocrit (Bld) [Volume fraction] 35.7 % 37-47 [facility] Ketones Test strip Ql (U)Ord ered By: Dr. Weiss on 06-26-2022 Ketones Ql (U) Negative Negative [facility] Laboratory - Chemistry and C hemistry - challengeOrdered By: Dr. Weiss on 06-26-2022 ALT [Catalytic activity/Vol] 22 U/L 13-56 [facility] Laboratory - Hematology and Cell countsOrdered By: Dr. Weiss on 06-26-2022 Erythrocyte distribution width (RBC) [Entitic vol] 42.0 fL 35.1-43.9 [facility] Erythrocyte distribution width (RBC) [Ratio] 13.6 % 11.6-14.6 [facility] Immature granulocytes/100 WBC (Bld) 0.700 % 0.0-0.9 [facility] Comment on above: IG% - Immature Granu locytes (promyelocytes, myelocytes and metamyelocytes) > 1% indicates that a LEFT SHIFT is Present. MCH (RBC) [Entitic mass] 28.0 pg 27.0-32.0 [facility] Nucleated RBC/100 WBC (Bld) [Ratio] 0 % 0-5 [facility] MCHC Auto (RBC) [Mass/Vol]Or dered By: Dr. Weiss on 06-26-2022 MCHC (RBC) [Mass/Vol] 33.1 g/dL 32-36 [facility] Mucus LM Ql (Urine sed)Order ed By: Dr. Weiss on 06-26-2022 Mucus Ql (Urine sed) 0 SEEN /hpf [facility] Nitrite Test strip Ql (U)Ord ered By: Dr. Weiss on 06-26-2022 Nitrite Ql (U) Negative Negative [facility] No Panel InformationOrdered By: Dr. Weiss on 06-26-2022 Estimated GFR (MDRD) Amer 83 mL/min >60 [facility] Comment on above: GFR Calc Estimated GFR (MDRD) Non-Af Amer 68 mL/min >60 [facility] Comment on above: Non- GFR Calc Platelets bldOrdered By: Dr. Weiss on 06-26-2022 Platelets (Bld) [#/Vol] 157 10*3/uL 150-450 [facility] Protein Test strip Ql (U)Ord ered By: Dr. Weiss on 06-26-2022 Protein Ql (U) Negative Negative [facility] Serum DNA double strand anti body assay (units/volume)Ordered By: Dr. Weiss on 06-26-2022 DNA double strand Ab Qn (S) 5 [IU]/mL 0-9 [facility] Comment on above: Negative <5 Equivoca l 5 - 9 Positive >9Performed at: [facility] - [facility] [address] [id number] Director: Wilner Suarez PhD, Phone: [phone] Serum or plasma C reactive p rotein measurement (mass/volume)Ordered By: Dr. Weiss on 06-26-2022 CRP [Mass/Vol] 12.20 mg/L 0.0-3.0 [facility] Comment on above: C-Reactive Protein ( CRP) provides useful information for thediagnosis, therapy and monitoring of inflammatory processesand associated diseases. For the evaluation of Relative Riskfor Cardiovascular Disease, a High Sensitivity CRP (HSCRP)should be ordered. Serum or plasma albumin maria g urement (mass/volume)Ordered By: Dr. Weiss on 06-26-2022 Albumin [Mass/Vol] 3.4 g/dL 3.2-5.0 [facility] Serum or plasma complement C 3 measurement (mass/volume)Ordered By: Dr. Weiss on 06-26-2022 Complement C3 [Mass/Vol] 98 mg/dL 82-167 [facility] Comment on above: Performed at: [facility] - [facility] [address] [id number] Director: Wilner Suarez PhD, Phone: [phone] Serum or plasma complement C 4 measurement (mass/volume)Ordered By: Dr. Weiss on 06-26-2022 Complement C4 [Mass/Vol] 16 mg/dL 12-38 [facility] Serum or plasma creatinine m easurement (mass/volume)Ordered By: Dr. Weiss on 06-26-2022 Creatinine [Mass/Vol] 0.93 mg/dL 0.55-1.02 [facility] Comment on above: The validity of the calculated GFR & GFRAA in patients over 70 years has not been determined. Clinical correlation is essential. Serum or plasma urea nitroge n measurement (mass/volume)Ordered By: Dr. Weiss on 06-26-2022 Urea nitrogen [Mass/Vol] 16 mg/dL 7-18 [facility] Squamous epithelial cells de tection in urine sediment by light microscopyOrdered By: Dr. Weiss on 06-26-2022 Epithelial cells.squamous LM Ql (Urine sed) 0 SEEN /hpf 5-10 [facility] Thin prep Papanicolaou smear with manual screeningOrdered By: Dr. Weiss on 06-26-2022 Thin prep Papanicolaou smear with manual screening 23 U/L 15-37 [facility] Urine blood detectionOrdered By: Dr. Weiss on 06-26-2022 RBC Ql (U) Negative Negative [facility] RBC Ql (U) 0 SEEN /hpf 0-5 [facility] Urine clarityOrdered By: Dr. Weiss on 06-26-2022 Clarity (U) Clear Clear [facility] Urine color determinationOrd ered By: Dr. Weiss on 06-26-2022 Color (U) Yellow Yellow [facility] Urine creatinine measurement (mass/volume)Ordered By: Dr. Weiss on 06-26-2022 Creatinine (U) [Mass/Vol] 56.20 mg/dL NO RANGE EST. [facility] Urine glucose detectionOrder ed By: Dr. Weiss on 06-26-2022 Glucose Ql (U) Normal mg/dl Normal [facility] Urine leukocyte esterase det ection by dipstickOrdered By: Dr. Weiss on 06-26-2022 Leukocyte esterase Test strip Ql (U) Negative Negative [facility] Urine pHOrdered By: Dr. Justin greenfield on 06-26-2022 pH (U) 6.0 [pH] 5.0 - 8.0 [facility] Urine protein measurement (m ass/volume)Ordered By: Dr. Weiss on 06-26-2022 Protein (U) [Mass/Vol] 12.2 mg/dL 0.0-11.8 [facility] Urine protein/creatinine mas s ratioOrdered By: Dr. Weiss on 06-26-2022 Protein/Creatinine (U) [Mass ratio] 217 mg/g CRE 0-200 [facility] Urine sediment bacteria coun t by microscopy (number/high power field)Ordered By: Dr. Weiss on 06-26-2022 Bacteria LM.HPF (Urine sed) [#/Area] 0 /[HPF] None Seen [facility] Urine specific gravity measu rementOrdered By: Dr. Weiss on 06-26-2022 Specific gravity (U) [Rel density] 1.015 1.002-1.030 [facility] Urobilinogen Auto test strip Ql (U)Ordered By: Dr. eWiss on 06-26-2022 Urobilinogen Ql (U) Normal mg/dl Normal [facility] No Panel InformationOrdered By: Dr. Dawson on 06-22-2022 Anti-Cardiolipin IgM Antibody 17 MPL U/mL 0-12 [facility] Comment on above: Negative: <13 Indete rminate: 13 - 20 Low-Med Positive: >20 - 80 High Positive: >80 Serum cardiolipin IgG antibo dy assay by immunoassay (units/volume)Ordered By: Dr. Dawson on 06-22-2022 Cardiolipin IgG IA Qn (S) < 9 GPL U/mL 0-14 [facility] Comment on above: Negative: <15 Indete rminate: 15 - 20 Low-Med Positive: >20 - 80 High Positive: >80 Serum or plasma cardiolipin IgA antibody assay (units/volume)Ordered By: Dr. Dawson on 06-22-2022 Cardiolipin IgA Qn < 9 APL U/mL 0-11 [facility] Comment on above: Negative: <12 Indete rminate: 12 - 20 Low-Med Positive: >20 - 80 High Positive: >80Performed at: [facility] [place] [id number] Director: Wilner Suarez PhD, Phone: [phone] Basophil percentageOrdered B y: Dr. Hamlin on 06-15-2022 Cholesterol [Mass/Vol] 114 mg/dL <200 [facility] Comment on above: <200 mg/dL Desirable 200-240 mg/dL Borderline >240 mg/dL High Risk Triglyceride [Mass/Vol] 121 mg/dL <199 [facility] Comment on above: The drugs N-Acetylcy steine and Metamizole may falsely depress this assay.Serum Triglycerides Reference Interval Normal <150 mg/dL Borderline high 150 - 199 mg/dL High 200 - 499 mg/dL Very High > or = 500 mg/dL Serum or plasma cholesterol in HDL measurement (mass/volume)Ordered By: Dr. Hamlin on 06-15-2022 Cholesterol in HDL [Mass/Vol] 40 mg/dL >40 [facility] Comment on above: The drugs N-Acetylcy steine and Metamizole may falsely depress this assay. Reference Range HDL <40 mg/dL Low HDL Cholesterol HDL >or= 60 mg/dL High HDL Cholesterol Serum or plasma cholesterol in VLDL measurement (mass/volume)Ordered By: Dr. Hamlin on 06-15-2022 Cholesterol in VLDL [Mass/Vol] 24 mg/dL 5-40 [facility] Serum or plasma low density lipoprotein (LDL) cholesterol measurement (mass/volume)Ordered By: Dr. Hamlin on 06-15-2022 Cholesterol in LDL [Mass/Vol] 50 mg/dL 0-130 [facility] Absolute lymphocyte countOrd ered By: Dr. Harrell on 05-21-2022 Lymphocytes Auto (Unsp spec) [#/Vol] 0.69 10*3/uL 0.83-4.51 [facility] Basophil percentageOrdered B y: Dr. Harrell on 05-21-2022 Basophils/100 WBC (Bld) 0.3 % 0-1 [facility] Bilirubin [Mass/Vol] 0.40 mg/dL 0.20-1.00 [facility] Comment on above: For patients on eltr ombopag therapy, use of Dimension [place] TBIL is not recommended. Chloride [Moles/Vol] 102 mmol/L 98-107 [facility] Eosinophils/100 WBC (Bld) 0.5 % 0-5 [facility] Glucose [Mass/Vol] 93 mg/dL 74-106 [facility] LDH [Catalytic activity/Vol] 234 U/L 84-246 [facility] Neutrophils (Bld) [#/Vol] 5.3 10*3/uL 2.0-7.7 [facility] Neutrophils/100 WBC (Bld) 82.2 % 47-70 [facility] Potassium [Moles/Vol] 4.3 mmol/L 3.5-5.1 [facility] Protein [Mass/Vol] 7.7 g/dL 6.4-8.2 [facility] Sodium [Moles/Vol] 136 mmol/L 136-145 [facility] WBC (Bld) [#/Vol] 6.4 10*3/uL 4.4-11.0 [facility] Blood erythrocytes count (nu mber/volume)Ordered By: Dr. Harrell on 05-21-2022 RBC (Bld) [#/Vol] 4.55 10*6/uL 4.2-5.4 [facility] Blood hemoglobin measurement (mass/volume)Ordered By: Dr. Harrell on 05-21-2022 Hemoglobin (Bld) [Mass/Vol] 12.6 g/dL 12.0-15.0 [facility] Blood lymphocytes/100 leukoc ytesOrdered By: Dr. Harrell on 05-21-2022 Lymphocytes/100 WBC (Bld) 10.8 % 19-41 [facility] Blood monocytes/100 leukocyt esOrdered By: Dr. Harrell on 05-21-2022 Monocytes/100 WBC (Bld) 5.3 % 0-10 [facility] Blood platelet mean volumeOr dered By: Dr. Harrell on 05-21-2022 Platelet mean volume (Bld) [Entitic vol] 9.3 fL 6.2-12.0 [facility] Determination of erythrocyte mean corpuscular volume (MCV)Ordered By: Dr. Harrell on 05-21-2022 MCV (RBC) [Entitic vol] 82.9 fL 81-99 [facility] Hematocrit Auto (Bld) [Volum e fraction]Ordered By: Dr. Harrell on 05-21-2022 Hematocrit (Bld) [Volume fraction] 37.7 % 37-47 [facility] Iron measurement (mass/mass) Ordered By: Dr. Harrell on 05-21-2022 Iron (Unsp spec) [Mass/Mass] 28 ug/dL 50-170 [facility] - Chemistry and C hemistry - challengeOrdered By: Dr. Harrell on 05-21-2022 ALP [Catalytic activity/Vol] 79 U/L 45-117 [facility] ALT [Catalytic activity/Vol] 24 U/L 13-56 [facility] CO2 [Moles/Vol] 28.0 mmol/L 21.0-32.0 [facility] Globulin (S) [Mass/Vol] 3.9 g/dL 2.2-4.2 [facility] Urea nitrogen/Creatinine [Mass ratio] 23.7 mg/mg 10-20 [facility] - Hematology and Cell countsOrdered By: Dr. Harrell on 05-21-2022 Erythrocyte distribution width (RBC) [Entitic vol] 41.1 fL 35.1-43.9 [facility] Erythrocyte distribution width (RBC) [Ratio] 13.6 % 11.6-14.6 [facility] Immature granulocytes/100 WBC (Bld) 0.900 % 0.0-0.9 [facility] Comment on above: IG% - Immature Granu locytes (promyelocytes, myelocytes and metamyelocytes) > 1% indicates that a LEFT SHIFT is Present. MCH (RBC) [Entitic mass] 27.7 pg 27.0-32.0 [facility] Nucleated RBC/100 WBC (Bld) [Ratio] 0 % 0-5 [facility] MCHC Auto (RBC) [Mass/Vol]Or dered By: Dr. Harrell on 05-21-2022 MCHC (RBC) [Mass/Vol] 33.4 g/dL 32-36 [facility] No Panel InformationOrdered By: Dr. Harrell on 05-21-2022 Estimated GFR (MDRD) Amer 92 mL/min >60 [facility] Comment on above: GFR Calc Estimated GFR (MDRD) Non-Af Amer 76 mL/min >60 [facility] Comment on above: Non- GFR Calc Total Iron Binding Capacity 252 ug/dL 250-450 [facility] Platelets bldOrdered By: Dr. Harrell on 05-21-2022 Platelets (Bld) [#/Vol] 220 10*3/uL 150-450 [facility] Serum or plasma albumin maria g urement (mass/volume)Ordered By: Dr. Harrell on 05-21-2022 Albumin [Mass/Vol] 3.8 g/dL 3.2-5.0 [facility] Serum or plasma albumin/glob ulin mass ratioOrdered By: Dr. Harrell on 05-21-2022 Albumin/Globulin [Mass ratio] 1.0 {ratio} 0.9-2.4 [facility] Serum or plasma calcium maria g urement (mass/volume)Ordered By: Dr. Harrell on 05-21-2022 Calcium [Mass/Vol] 9.2 mg/dL 8.5-10.1 [facility] Serum or plasma creatinine m easurement (mass/volume)Ordered By: Dr. Harrell on 05-21-2022 Creatinine [Mass/Vol] 0.84 mg/dL 0.55-1.02 [facility] Comment on above: The validity of the calculated GFR & GFRAA in patients over 70 years has not been determined. Clinical correlation is essential. Serum or plasma ferritin lo surement (mass/volume)Ordered By: Dr. Harrell on 05-21-2022 Ferritin [Mass/Vol] 402 ng/mL 8-252 [facility] Serum or plasma iron saturat ion measurement (mass fraction)Ordered By: Dr. Harrell on 05-21-2022 Iron saturation [Mass fraction] 11.1 % 15.0-55.0 [facility] Serum or plasma urea nitroge n measurement (mass/volume)Ordered By: Dr. Harrell on 05-21-2022 Urea nitrogen [Mass/Vol] 20 mg/dL 7-18 [facility] Thin prep Papanicolaou smear with manual screeningOrdered By: Dr. Harrell on 05-21-2022 Thin prep Papanicolaou smear with manual screening 23 U/L 15-37 [facility] Thin prep Papanicolaou smear with manual screening 6 5-15 [facility] No Panel InformationOrdered By: Dr. Dawson on 04-08-2022 Anti-Cardiolipin IgM Antibody 32 MPL U/mL 0-12 [facility] Comment on above: Negative: <13 Indete rminate: 13 - 20 Low-Med Positive: >20 - 80 High Positive: >80 Serum cardiolipin IgG antibo dy assay by immunoassay (units/volume)Ordered By: Dr. Dawson on 04-08-2022 Cardiolipin IgG IA Qn (S) < 9 GPL U/mL 0-14 [facility] Comment on above: Negative: <15 Indete rminate: 15 - 20 Low-Med Positive: >20 - 80 High Positive: >80 Serum or plasma cardiolipin IgA antibody assay (units/volume)Ordered By: Dr. Dawson on 04-08-2022 Cardiolipin IgA Qn < 9 APL U/mL 0-11 [facility] Comment on above: Negative: <12 Indete rminate: 12 - 20 Low-Med Positive: >20 - 80 High Positive: >80Performed at: - [facility] [address] [id number] Director: Wilner Suarez PhD, Phone: [phone] Basophil percentageOrdered B y: Dr. Weiss on 02-20-2022 Basophil percentage 0-5 SEEN /hpf 0-5 [facility] Bilirubin Test strip Ql (U)O rdered By: Dr. Weiss on 02-20-2022 Bilirubin Ql (U) Negative Negative [facility] Ketones Test strip Ql (U)Ord ered By: Dr. Weiss on 02-20-2022 Ketones Ql (U) Negative Negative [facility] Mucus LM Ql (Urine sed)Order ed By: Dr. Weiss on 02-20-2022 Mucus Ql (Urine sed) 0 SEEN /hpf [facility] Nitrite Test strip Ql (U)Ord ered By: Dr. Weiss on 02-20-2022 Nitrite Ql (U) Negative Negative [facility] Protein Test strip Ql (U)Ord ered By: Dr. Weiss on 02-20-2022 Protein Ql (U) 15 mg/dl Negative [facility] Serum or plasma complement C 3 measurement (mass/volume)Ordered By: Dr. Weiss on 02-20-2022 Complement C3 [Mass/Vol] 103 mg/dL 82-167 [facility] Comment on above: Performed at: [facility] [address] [id number] Director: Wilner Suarez PhD, Phone: [phone] Serum or plasma complement C 4 measurement (mass/volume)Ordered By: Dr. Weiss on 02-20-2022 Complement C4 [Mass/Vol] 16 mg/dL 12-38 [facility] Squamous epithelial cells de tection in urine sediment by light microscopyOrdered By: Dr. Weiss on 02-20-2022 Epithelial cells.squamous LM Ql (Urine sed) 0-5 SEEN /hpf 5-10 [facility] Urine blood detectionOrdered By: Dr. Weiss on 02-20-2022 RBC Ql (U) Negative Negative [facility] RBC Ql (U) 0 SEEN /hpf 0-5 [facility] Urine clarityOrdered By: Dr. Weiss on 02-20-2022 Clarity (U) Clear Clear [facility] Urine color determinationOrd ered By: Dr. Weiss on 02-20-2022 Color (U) Yellow Yellow [facility] Urine creatinine measurement (mass/volume)Ordered By: Dr. Weiss on 02-20-2022 Creatinine (U) [Mass/Vol] 266.00 mg/dL NO RANGE EST. [facility] Urine glucose detectionOrder ed By: Dr. Weiss on 02-20-2022 Glucose Ql (U) Normal mg/dl Normal [facility] Urine leukocyte esterase det ection by dipstickOrdered By: Dr. Weiss on 02-20-2022 Leukocyte esterase Test strip Ql (U) 25 /ul Negative [facility] Urine pHOrdered By: Dr. Justin greenfield on 02-20-2022 pH (U) 5.0 [pH] 5.0 - 8.0 [facility] Urine protein measurement (m ass/volume)Ordered By: Dr. Weiss on 02-20-2022 Protein (U) [Mass/Vol] 64.0 mg/dL 0.0-11.8 [facility] Urine protein/creatinine mas s ratioOrdered By: Dr. Weiss on 02-20-2022 Protein/Creatinine (U) [Mass ratio] 241 mg/g CRE 0-200 [facility] Urine sediment bacteria coun t by microscopy (number/high power field)Ordered By: Dr. Weiss on 02-20-2022 Bacteria LM.HPF (Urine sed) [#/Area] RARE /hpf None Seen [facility] Urine specific gravity measu rementOrdered By: Dr. Weiss on 02-20-2022 Specific gravity (U) [Rel density] 1.025 1.002-1.030 [facility] Urobilinogen Auto test strip Ql (U)Ordered By: Dr. Weiss on 02-20-2022 Urobilinogen Ql (U) Normal mg/dl Normal [facility] Basophil percentageon 2021 Ammonia (P) [Moles/Vol] 15.0 umol/L [facility] Work Phone: Basophil percentage 0.2 AI 0.0-0.9 [facility] Work Phone: Basophil percentage < 0.2 AI 0.0-0.9 [facility] Work Phone: Bilirubin [Mass/Vol] 0.60 mg/dL 0.20-1.00 [facility] Work Phone: Comment on above: For patients on eltr ombopag therapy, use of Dimension [place] TBIL is not recommended. Chloride [Moles/Vol] 106 mmol/L 98-107 [facility] Work Phone: Glucose [Mass/Vol] 99 mg/dL 74-106 [facility] Work Phone: Potassium [Moles/Vol] 4.3 mmol/L 3.5-5.1 [facility] Work Phone: Protein [Mass/Vol] 7.8 g/dL 6.4-8.2 [facility] Work Phone: Sodium [Moles/Vol] 138 mmol/L 136-145 [facility] Work Phone: [phone] WBC (Bld) [#/Vol] 3.6 10*3/uL 4.4-11.0 [facility] Work Phone: Blood erythrocytes count (nu mber/volume)on 02-11-2022 RBC (Bld) [#/Vol] 4.30 10*6/uL 4.2-5.4 [facility] Work Phone: Blood hemoglobin measurement (mass/volume)on 02-11-2022 Hemoglobin (Bld) [Mass/Vol] 11.4 g/dL 12.0-15.0 [facility] Work Phone: Blood or tissue coagulation factor II targeted mutation analysis by molecular geneticon 02-11-2022 F2 gene targeted mutation analysis [employer] (Bld/Tiss) Comment . [facility] Work Phone: Comment on above: Result: c.*97G>A - N ot DetectedThis result is not associated with an increased risk for venousthromboembolism. See Additional Clinical Information andComments.Additional Clinical Information:Venous thromboembolism is a multifactorial disease influenced bygenetic, environmental, and circumstantial risk factors. The c.*97G>Avariant in the F2 gene is a genetic risk factor for venousthromboembolism. Heterozygous carriers have a 2- to 4-fold increasedrisk for venous thromboembolism. Homozygotes for the c.*97G>A variantare rare. The annual risk of VTE in homozygotes has been reported charanjit 1.1%/year. Individuals who carry both a c.*97G>A variant in theF2 gene and a c.1601G>A (p. [id number]) variant in the F5 gene(commonly referred to as Factor V Leiden) have an approximately 20-fold increased risk for venous thromboembolism. Risks are likely charanjit even higher in more complex genotype combinations involving theF2 c.*97G>A variant and Factor V Leiden (PMID: 48631345). Additionalrisk factors include but are not limited to: deficiency of protein C,protein S, or antithrombin III, age, male sex, personal or familyhistory of deep vein thromboembolism, smoking, surgery, prolongedimmobilization, malignant neoplasm, tamoxifen treatment, raloxifenetreatment, oral contraceptive use, hormone replacement therapy, andpregnancy. Management of thrombotic risk and thrombotic events shouldfollow established guidelines and fit the clinical circumstance. Thisresult cannot predict the occurrence or recurrence of a thromboticevent.Comments:Genetic counseling is recommended to discuss the potential clinicalimplications of positive results, as well as recommendations fortesting family members.Genetic Coordinators are available for health care providers to discussresults at [phone] Details:Variant analyzed: c.*97G>A, previously referred to as [id number]/Limitations:DNA analysis of the F2 gene (NM_000506.5) was performed by PCRamplification followed by restriction enzyme analysis. The diagnosticsensitivity is >99%. Results must be combined with clinicalinformation for the most accurate interpretation. Molecular-basedtesting is highly accurate, but as in any laboratory test, diagnosticerrors may occur. False positive or false negative results may occurfor reasons that include genetic variants, blood transfusions, bonemarrow transplantation, somatic or tissue-specific mosaicism,mislabeled samples, or erroneous representation of familyrelationships.This test was developed and its performance characteristics determinedby [facility]. It has not been cleared or approved by the Food and DrugAdministration.References:Brady S, Sharon RENO, Emir R, Emmanuel WW, aMrtinez JH; [employer] ProfessionalPractice and Guidelines Committee. Addendum: [employer] consensus statement on factor V Leiden mutationtesting. [employer]. 2020May 24. doi: 10.1038/e03670-367-50892-x.PMID: 90375041.Sandra ORELLANA. Prothrombin Thrombophilia. 2005Oct 13[Updated 2020Apr 25]. In: Shiraz MP, Radha HH, Nayeli RA, et al.,editors. Yael(R) [Internet]. [place] ([place]): [facility]; 0562-7124. Available from:https://www.ncbi.nlm.nih.gov/books/VUS8138/Enoch S, Sharon RENO, Gigi X, Rafa B, Noemí EB, Kellie P, Manny CS;[facility] Laboratory [place] Representative Committee. Venous thromboembolismlaboratory testing (factor V Leiden and factor II c.*97G>A),2018 update: a technical standard of the [employer] ([employer]). Luci Med. 2018 Feb;20(12):9328-4063.doi: 10.1038/y21552-916-6767-n. Epub 2017Dec 24. PMID: 25796988.Marilou Champagne, PhD, Katy Camacho, PhDAlex Mistry, PhD, Jerald Argueta, PhD, Ramiro Platt, PhD, JAC Fournier, PhD, Aminah Alvarez, PhD, Yanique Mendes, PhD, [facility] Blood platelet mean volumeon 02-11-2022 Platelet mean volume (Bld) [Entitic vol] 10.3 fL 6.2-12.0 [facility] Work Phone: Determination of erythrocyte mean corpuscular volume (MCV)on 02-11-2022 MCV (RBC) [Entitic vol] 82.6 fL 81-99 [facility] Work Phone: Erythrocyte sedimentation ra vinicio 02-11-2022 ESR (Bld) [Velocity] 29 mm/h 0-30 [facility] Work Phone: Functional protein C measure menton 02-11-2022 Protein C actual/normal Chromogenic method (PPP) [Rel catalytic activity/Vol] 122 % 73-180 [facility] Work Phone: Comment on above: Performed at: [address] [id number] Director: Wilner Suarez PhD, Phone: [phone] at: BN - [facility] [address] [id number] Director: Alexis Stallworth MD, Phone: [phone] at: TG - [facility] [id number] [place], [place] [id number] Director: Dioni Roman [facility], Phone: [phone] Hematocrit Auto (Bld) [Volum e fraction]on 02-11-2022 Hematocrit (Bld) [Volume fraction] 35.5 % 37-47 [facility] Work Phone: Laboratory - Chemistry and C hemistry - challengeon 02-11-2022 ALP [Catalytic activity/Vol] 87 U/L 45-117 [facility] Work Phone: ALT [Catalytic activity/Vol] 18 U/L 13-56 [facility] Work Phone: [phone] CO2 [Moles/Vol] 26.0 mmol/L 21.0-32.0 [facility] Work Phone: Cobalamin (Vitamin B12) [Mass/Vol] 346 pg/mL 211-911 [facility] Work Phone: Globulin (S) [Mass/Vol] 4.3 g/dL 2.2-4.2 [facility] Work Phone: Urea nitrogen/Creatinine [Mass ratio] 15.3 mg/mg 10-20 [facility] Work Phone: Laboratory - Hematology and Cell countson 02-11-2022 Erythrocyte distribution width (RBC) [Entitic vol] 41.4 fL 35.1-43.9 [facility] Work Phone: Erythrocyte distribution width (RBC) [Ratio] 14.1 % 11.6-14.6 [facility] Work Phone: MCH (RBC) [Entitic mass] 26.5 pg 27.0-32.0 [facility] Work Phone: MCHC Auto (RBC) [Mass/Vol]on 02-11-2022 MCHC (RBC) [Mass/Vol] 32.1 g/dL 32-36 [facility] Work Phone: No Panel Informationon 02-11 Anti-Cardiolipin IgM Antibody 33 MPL U/mL 0-12 [facility] Work Phone: Comment on above: Negative: <13 Indete rminate: 13 - 20 Low-Med Positive: >20 - 80 High Positive: >80 Anti-Nuclear Antibody Screen Positive Negative [facility] Work Phone: Centromere B Antibody <0.2 AI 0.0-0.9 [facility] Work Phone: Estimated GFR (MDRD) Amer 84 mL/min >60 [facility] Work Phone: Comment on above: GFR Calc Estimated GFR (MDRD) Non-Af Amer 70 mL/min >60 [facility] Work Phone: Comment on above: Non- GFR Calc Factor V Leiden Mutation Comment . [facility] Work Phone: Comment on above: Result: c.1601G>A (p .Vga368Mhe) - Not DetectedThis result is not associated with an increased risk for venousthromboembolism. See Additional Clinical Information andComments.Additional Clinical Information:Venous thromboembolism is a multifactorial diseaseinfluenced by genetic, environmental, and circumstantialrisk factors. The c.1601G>A (p. [id number]) variant in theF5 gene, commonly referred to as Factor V Leiden, is agenetic risk factor for venous thromboembolism.Heterozygous carriers of this variant have a 6- to 8-foldincreased risk for venous thromboembolism. Individualshomozygous for this variant (ie, with a copy of the varianton each chromosome) have an approximately 80-fold increasedrisk for venous thromboembolism. Individuals who carry rodrigo c.*97G>A variant in the F2 gene and Factor V Leiden havean approximately 20-fold increased risk for venousthromboembolism. Risks are likely to be even higher in morecomplex genotype combinations involving the F2 c.*97G>Avariant and Factor V Leiden (PMID: [id number]). Additionalrisk factors include but are not limited to: deficiency ofprotein C, protein S, or antithrombin III, age, male sex,personal or family history of deep vein thromboembolism,smoking, surgery, prolonged immobilization, malignantneoplasm, tamoxifen treatment, raloxifene treatment, oralcontraceptive use, hormone replacement therapy, andpregnancy. Management of thrombotic risk and thromboticevents should follow established guidelines and fit theclinical circumstance. This result cannot predict theoccurrence or recurrence of a thrombotic event.Comment:Genetic counseling is recommended to discuss thepotential clinical implications of positive results, aswell as recommendations for testing family members.Genetic Coordinators are available for health careproviders to discuss results at [phone] Details:Variant Analyzed: c.1601G>A (p. [id number]), referred toas Factor V LeidenMethods/Limitations:DNA analysis of the F5 gene (NM_000130.5) was performedby PCR amplification followed by restriction enzymeanalysis. The diagnostic sensitivity is >99%. Results mustbe combined with clinical information for the most accurateinterpretation. Molecular-based testing is highly accurate,but as in any laboratory test, diagnostic errors may occur.False positive or false negative results may occur forreasons that include genetic variants, blood transfusions,bone marrow transplantation, somatic or tissue-specificmosaicism, mislabeled samples, or erroneous representationof family relationships.This test was developed and its performance characteristicsdetermined by [employer]. It has not been cleared orapproved by the Food and Drug Administration.References:Brady Cr, Sharon RENO, Emir R, Emmanuel WW, Martinez JH; ACMGProfessional Practice and Guidelines Committee. Addendum:[employer] consensus statement onfactor V Leiden mutation testing. Luci Med. 2020May 24.doi: 10.1038/[id number]-r. PMID: 02076691.Sandra ORELLANA. Factor V Leiden Thrombophilia. 1998August 02(Updated 2017Mar 25). In: Shiraz MP, Radha HH, Nayeli RA,et al., editors. Yael(R) (Internet). [place] ([place]):[facility], [place]; 7329-7784. Availablefrom: https://www.ncbi.nlm.nih.gov/books/FPY5230/Enoch Cr, Sharon RENO, Gigi X, Rafa B, Noemí EB, Kellie P,Manny SOW; [employer] Laboratory [place] Representative Committee.Venous thromboembolism laboratory testing (factor V Leidenand factor II c.*97G>A), 2018 update: a technical standardof the [employer]MG). Luci Med. 2018 Feb;20(12):8237-2079. doi:10.1038/[id number]-b. Epub 2017Dec 24. PMID: [id number].Marilou Champagne, PhD, Katy Camacho, PhDAlex Mistry, PhD, Jerald Argueta, PhD, Ramiro Platt, PhD, [facility] Fournier, PhD, Aminah Alvarez, PhD, Yanique Mendes, PhD, [facility] Levetiracetam (Keppra) Level 23.5 ug/mL 10.0-40.0 [facility] Work Phone: ROUND UP RING HAND Antibody 1.0 AI 0.0-0.9 [facility] Work Phone: Total Complement (CH50) 55 U/mL >41 [facility] Work Phone: Comment on above: Age Male Female 1 - 30 days Not Estab. Not Estab. 31 days - 6 months >32 >20 7 months - 17 years >39 >39 >17 years >41 >41 NOTE: The adult (>17 years) reference interval range is used to flag abnormals on this report. If the patient is 17 years old or younger, use the table above to determine out of range values. Whole Blood Vitamin B1 Level 103.6 nmol/L 66.5-200.0 [facility] Work Phone: Platelet poor plasma antithr ombin actual/normal ratio by chromogenic method (relativeon 02-11-2022 Antithrombin actual/normal Chromogenic method (PPP) [Rel catalytic activity/Vol] 118 % 75-135 [facility] Work Phone: Comment on above: Direct Xa inhibitor anticoagulants such as rivaroxaban,apixaban and edoxaban will lead to spuriously elevatedantithrombin activity levels possibly masking a deficiency. Platelet poor plasma antithr ombin antigen detection by immunoassayon 02-11-2022 Antithrombin Ag IA Ql (PPP) 110 % 72-124 [facility] Work Phone: Comment on above: This test was develo ped and its performance characteristicsdetermined by [employer]. It has not been cleared orapproved by the Food and Drug Administration. Platelet poor plasma protein S actual/normal ratio (relative time)on 02-11-2022 Protein S actual/normal Coag (PPP) [Relative time] 67 % 63-140 [facility] Work Phone: Comment on above: Protein S activity m ay be falsely increased (masking anabnormal, low result) in patients receiving direct Xainhibitor (e.g., rivaroxaban, apixaban, edoxaban) or adirect thrombin inhibitor (e.g., dabigatran) anticoagulanttreatment due to assay interference by these drugs. Platelets bldon 02-11-2022 Platelets (Bld) [#/Vol] 173 10*3/uL 150-450 [facility] Work Phone: Protein C antigen assayon Protein C Ag actual/normal IA (PPP) [Relative mass conc] 107 % 60-150 [facility] Work Phone: Protein S measurement in jane telet poor plasma by coagulation assay (units/volume)on 02-11-2022 Protein S Coag Qn (PPP) 131 % 60-150 [facility] Work Phone: Comment on above: This test was develo ped and its performance characteristicsdetermined by [employer]. It has not been cleared orapproved by the Food and Drug Administration. Protein S, freeon 02-11-2022 Protein S Free Ag IA Qn (PPP) 100 % 61-136 [facility] Work Phone: Serum DNA double strand anti body assay (units/volume)on 02-11-2022 DNA double strand Ab Qn (S) 8 [IU]/mL 0-9 [facility] Work Phone: Comment on above: Negative <5 Equivoca l 5 - 9 Positive >9 Serum Destini-1 antibody assay (u nits/volume)on 02-11-2022 Destini-1 extractable nuclear Ab Qn (S) <0.2 AI 0.0-0.9 [facility] Work Phone: Serum Scl-70 extractable nuc lear antibody assay (units/volume)on 02-11-2022 SCL-70 extractable nuclear Ab Qn (S) <0.2 AI 0.0-0.9 [facility] Work Phone: Serum Pimentel extractable nucl ear antibody detectionon 02-11-2022 Pimentel extractable nuclear Ab Ql (S) 0.6 AI 0.0-0.9 [facility] Work Phone: Serum cardiolipin IgG antibo dy assay by immunoassay (units/volume)on 02-11-2022 Cardiolipin IgG IA Qn (S) < 9 GPL U/mL 0-14 [facility] Work Phone: Comment on above: Negative: <15 Indete rminate: 15 - 20 Low-Med Positive: >20 - 80 High Positive: >80 Serum or plasma albumin maria g urement (mass/volume)on 02-11-2022 Albumin [Mass/Vol] 3.5 g/dL 3.2-5.0 [facility] Work Phone: Serum or plasma albumin/glob ulin mass ratioon 02-11-2022 Albumin/Globulin [Mass ratio] 0.8 {ratio} 0.9-2.4 [facility] Work Phone: Serum or plasma calcium maria g urement (mass/volume)on 02-11-2022 Calcium [Mass/Vol] 9.3 mg/dL 8.5-10.1 [facility] Work Phone: Serum or plasma cardiolipin IgA antibody assay (units/volume)on 02-11-2022 Cardiolipin IgA Qn < 9 APL U/mL 0-11 [facility] Work Phone: Comment on above: Negative: <12 Indete rminate: 12 - 20 Low-Med Positive: >20 - 80 High Positive: >80 Serum or plasma complement C 3 measurement (mass/volume)on 02-11-2022 Complement C3 [Mass/Vol] 113 mg/dL 82-167 [facility] Work Phone: Serum or plasma complement C 4 measurement (mass/volume)on 02-11-2022 Complement C4 [Mass/Vol] 19 mg/dL 12-38 [facility] Work Phone: Serum or plasma creatinine m easurement (mass/volume)on 02-11-2022 Creatinine [Mass/Vol] 0.92 mg/dL 0.55-1.02 [facility] Work Phone: Comment on above: The validity of the calculated GFR & GFRAA in patients over 70 years has not been determined. Clinical correlation is essential. Serum or plasma urea nitroge n measurement (mass/volume)on 02-11-2022 Urea nitrogen [Mass/Vol] 14 mg/dL 7-18 [facility] Work Phone: Thin prep Papanicolaou smear with manual screeningon 02-11-2022 Thin prep Papanicolaou smear with manual screening 20 U/L 15-37 [facility] Work Phone: Thin prep Papanicolaou smear with manual screening 6 5-15 [facility] Work Phone: Final Surgical Pathology Rep regina 12-24-2021 Final Surgical Pathology Report . Pathology Reports Accession: Collected Date/Time: Received Date/Time: Pathologist: [id number] 12/22/2021 13:29 EDT 12/23/2021 08:02 EDT CAROL BARTON MD Final Surgical Pathology Report DIAGNOSIS: UTERUS, CERVIX, BILATERAL FALLOPIAN TUBES AND OVARIES (171 GRAMS) - CERVIX - UNREMARKABLE. ENDOMETRIUM - WEAKLY PROLIFERATIVE; NEGATIVE FOR HYPERPLASIA. MYOMETRIUM - ADENOMYOSIS. RIGHT OVARY - LARGE LUTEINIZED FOLLICULAR CYST. LEFT OVARY - LUTEINIZED FOLLICULAR CYSTS. BILATERAL FALLOPIAN TUBES - UNREMARKABLE. CLINICAL INFORMATION: Procedure: EXAM UNDER ANESTHESIA, TOTAL LAPAROSCOPIC HYSTERECTOMY, BILATERAL SALPINGO-OOPHORECTOMY, CYSTOSCOPY Preoperative diagnosis: PELVIC PAIN, OVARIAN MASS Postoperative diagnosis: PELVIC PAIN, OVARIAN MASS SPECIMEN: A UTERUS, CERVIX, BILATERAL FALLOPIAN TUBES AND OVARIES GROSS DESCRIPTION: A. Received in formalin, labeled with the patients name, Case #[id number], and uterus, cervix, bilateral fallopian tubes and ovaries Weight/dimensions-171 g and measures 9.2 cm (fundus to cervix), 5 cm (cornu to cornu), 4.5 cm (anterior to posterior). Wsezsf-sza-kaej predominantly smooth Cervix/endocervix-3.5 cm in diameter and 4.5 cm in length Wpzftzexrax-ueszarocvs-hcf ped endometrial cavity measuring 2 x 3 cm, endometrium lining measuring 0.1 cm Zpizzcsqjb-dyi-lbic measuring up to 2.5 cm with 1 area of trabeculation on the anterior measuring 1.5 x 1.3 cm. No masses or nodules identified. Right fallopian tube: 5 x 0.6 cm Right ovary: A yellow-purple cystic-appearing measuring 3.5 x 2.7 x 2.7 cm, sectioning reveals a smooth walled unilocular cystic cavity measuring 3 x 2 cm. Left fallopian tube: 3 x 0.5 cm Left ovary: 3.2 x 2.5 x 2 cm, sectioning reveals multiple fluid-filled smooth-walled cystic cavities with no identified masses. RS-6 Cassette Summary: A1-Cervix A2-Anterior endomyometrium A3-Posterior endomyometrium A4-Area of trabeculation anterior A5-Right fallopian tube and right ovary A6-Left fallopian tube and left ovary Dictated by FRANCHESCA HANSEN MICROSCOPIC DESCRIPTION: Slides reviewed. Pathology Reports Accession: Collected Date/Time: Received Date/Time: Pathologist: [id number] 12/22/2021 13:29 EDT 12/23/2021 08:02 EDT CAROL BARTON MD Electronically Signed by Pathology Report verified by [facility] CAROL BARTON Sign out Date: 12/24/2021 17:13 Performing Lab: [facility], [address] [place] [address] Pathology Dept Normal [facility] [place] [facility] ([place]) ABO/Rh (Gel)on 12-22-2021 ABO/Rh Interp Negative Invalid Interpretation Code [facility] [place] ([place]) Comment on above: Performed By: #### A BSGEL, ABOGEL #### [place] [address] ABS (Gel)on 12-22-2021 ABSC Interp (Gel) Negative Normal [facility] [place] [facility] ([place]) Comment on above: Performed By: #### A BSGEL, GFR, ABOGEL, DATIGG, CMP #### [place] [address] LABORATORYOrdered By: Aline Hooks on 12-22-2021 Beta HCG ( test) Ql (U) Negative (12/22/21 10:27 AM) [facility] Work Phone: LABORATORYOrdered By: Bárbara José on 12-22-2021 ABO and Rh group Nom (Bld) Blood group A Rh(D) negative Invalid Interpretation Code AH BB Auto SS Blood group antibody screen Ql NEG (12/22/21 9:50 AM) Invalid Interpretation Code BB Auto SS XR CHEST 2 VIEWSon 2 XR CHEST 2 VIEWS ORIGINAL EXAMINATION: TWO XRAY VIEWS OF THE CHEST12/08/2021 2:47 pm COMPARISON: None HISTORY: ORDERING SYSTEM PROVIDED HISTORY: Reason for Exam: cough FINDINGS: Heart, mediastinum and bony structures are unremarkable. There is no vascular congestion, lung consolidation or infiltrate. Mild blunting of the left costophrenic angle indicates a small pleural effusion. IMPRESSION: Small left pleural effusion. No other acute findings. Interpreted by: Kyle Stovall MD Preliminary Report By: Kyle Stovall MD Electronically signed By Kyle Stovall MD Dictated Date: 12/09/2021 11:54:34 PM Prelim Date: 12/09/2021 11:55:14 PM Sign Date: 12/09/2021 11:55:14 PM Ordering Provider: KARLA Baez [facility] [place] [facility] ([place]) .Auto Diffon 12-08-2021 Basophil, Absolute 0.0 10 3/mcL Normal 0.0-0.3 [facility] ([place]) Comment on above: Performed By: #### A BSGEL, GFR, ABOGEL, DATIGG, CMP #### [address] [address] Basophils/100 WBC (Bld) 0.4 % Normal 0.0-2.5 [facility] [place] [facility] ([place] Comment on above: Performed By: #### A BSGEL, GFR, ABOGEL, DATIGG, CMP #### [address] [address] Eosinophil, Absolute 0.0 10 3/mcL Normal 0.0-0.7 [facility] ([place]) Comment on above: Performed By: #### A BSGEL, GFR, ABOGEL, DATIGG, CMP #### [address] [address] Eosinophils/100 WBC (Bld) 0.5 % Normal 0.0-6.0 [facility] [place] [facility] ([place] Comment on above: Performed By: #### A BSGEL, GFR, ABOGEL, DATIGG, CMP #### [address] [address] Lymphocyte, Absolute 0.5 10 3/mcL Low 0.9-4.3 [facility] ([place] Comment on above: Performed By: #### A BSGEL, GFR, ABOGEL, DATIGG, CMP #### [address] [address] Lymphocytes/100 WBC (Bld) 12.2 % Low 20.0-40.0 [facility] [place] [facility] ([place]) Comment on above: Performed By: #### A BSGEL, GFR, ABOGEL, DATIGG, CMP #### [address] [address] Monocyte, Absolute 0.3 10 3/mcL Normal 0.1-1.4 [facility] ([place]) Comment on above: Performed By: #### A BSGEL, GFR, ABOGEL, DATIGG, CMP #### [address] [address] Monocytes/100 WBC (Bld) 7.6 % Normal 2.0-13.0 [facility] [place] [facility] ([place]) Comment on above: Performed By: #### A BSGEL, GFR, ABOGEL, DATIGG, CMP #### [address] [address] Neutrophils/100 WBC (Bld) 79.3 % High 50.0-75.0 [facility] [place] [facility] ([place] Comment on above: Performed By: #### A BSGEL, GFR, ABOGEL, DATIGG, CMP #### [address] [address] .GFRon 12-08-2021 GFR >60 Normal [facility] ([place]) Comment on above: Result Comment: GFR Population mean for , Non- Americans Ages 20-29 = 116 mL/min/1.73 sq.m. Ages 30-39 = 107 mL/min/1.73 sq.m. Ages 40-49 = 99 mL/min/1.73 sq.m. Ages 50-59 = 93 mL/min/1.73 sq.m. Ages 60-69 = 85 mL/min/1.73 sq.m. Ages 70+ = 75 mL/min/1.73 sq.m. Chronic Kidney Disease: Less than 60 mL/min/1.73 square meters End Stage Renal Disease: Less than 15 mL/min/1.73 square meters Performed By: #### A BSGEL, GFR, ABOGEL, DATIGG, CMP #### [address] [address] GFR Non- >60 Normal [facility] [place] [facility] ([place]) Comment on above: Result Comment: GFR Population mean for , Non- Americans Ages 20-29 = 116 mL/min/1.73 sq.m. Ages 30-39 = 107 mL/min/1.73 sq.m. Ages 40-49 = 99 mL/min/1.73 sq.m. Ages 50-59 = 93 mL/min/1.73 sq.m. Ages 60-69 = 85 mL/min/1.73 sq.m. Ages 70+ = 75 mL/min/1.73 sq.m. Chronic Kidney Disease: Less than 60 mL/min/1.73 square meters End Stage Renal Disease: Less than 15 mL/min/1.73 square meters Performed By: #### A BSGEL, GFR, ABOGEL, DATIGG, CMP #### [address] [address] .NEUABSon 12-08-2021 Neutrophil, Absolute 3.2 10 3/mcL Normal 2.3-8.1 [facility] ([place] Comment on above: Performed By: #### A BSGEL, GFR, ABOGEL, DATIGG, CMP #### [address] [address] ABO/Rh (Gel)on 12-08-2021 ABO/Rh Interp Negative Invalid Interpretation Code [facility] [place] [facility] ([place] Comment on above: Performed By: #### A BSGEL, GFR, ABOGEL, DATIGG, CMP #### [address] [address] ABS (Gel)on 12-08-2021 ABSC Interp (Gel) Negative Normal [facility] ([place]) Comment on above: Performed By: #### A BSGEL, GFR, ABOGEL, DATIGG, CMP #### [address] [address] CBCon 12-08-2021 Erythrocyte distribution width (RBC) [Ratio] 15.0 % Normal 11.5-15.5 [facility] ([place] Comment on above: Performed By: #### A BSGEL, GFR, ABOGEL, DATIGG, CMP #### [place] [id number] Hematocrit (Bld) [Volume fraction] 33.9 % Low 34.0-46.0 [facility] ([place]) Comment on above: Performed By: #### A BSGEL, GFR, ABOGEL, DATIGG, CMP #### [place] [address] Hgb 11.6 G/dL Low 12.0-16.0 [facility] ([place]) Comment on above: Performed By: #### A BSGEL, GFR, ABOGEL, DATIGG, CMP #### [place] [address] MCH (RBC) [Entitic mass] 27.3 pg Normal 27.0-33.0 [facility] ([place]) Comment on above: Performed By: #### A BSGEL, GFR, ABOGEL, DATIGG, CMP #### [place] [address] MCHC 34.3 G/dL Normal 32.0-36.0 [facility] ([place] Comment on above: Performed By: #### A BSGEL, GFR, ABOGEL, DATIGG, CMP #### [place] [address] MCV (RBC) [Entitic vol] 79.6 fL Low 80.0-99.0 [facility] ([place] Comment on above: Performed By: #### A BSGEL, GFR, ABOGEL, DATIGG, CMP #### [place] [address] Platelet 137 10 3/mcL Low 150-450 [facility] ([place] Comment on above: Performed By: #### A BSGEL, GFR, ABOGEL, DATIGG, CMP #### [place] [address] Platelet mean volume (Bld) [Entitic vol] 7.5 fL Normal 6.6-10.5 [facility] ([place] Comment on above: Performed By: #### A BSGEL, GFR, ABOGEL, DATIGG, CMP #### [place] [address] RBC 4.26 10 6/mcL Normal 4.10-5.30 [facility] ([place] Comment on above: Performed By: #### A BSGEL, GFR, ABOGEL, DATIGG, CMP #### [address] [address] WBC 4.0 10 3/mcL Low 4.5-10.8 [facility] ([place] Comment on above: Performed By: #### A BSGEL, GFR, ABOGEL, DATIGG, CMP #### [address] [address] CMPon 12-08-2021 Albumin Level 3.5 G/dL Normal 3.2-4.8 [facility] ([place] Comment on above: Performed By: #### A BSGEL, GFR, ABOGEL, DATIGG, CMP #### [address] [address] Albumin/Globulin [Mass ratio] 1.1 {ratio} Normal 0.9-1.6 [facility] ([place] Comment on above: Performed By: #### A BSGEL, GFR, ABOGEL, DATIGG, CMP #### [address] [address] ALP [Catalytic activity/Vol] 72 U/L Normal 38-126 [facility] ([place] Comment on above: Performed By: #### A BSGEL, GFR, ABOGEL, DATIGG, CMP #### [address] [address] ALT [Catalytic activity/Vol] 11 U/L Normal 10-49 [facility] ([place] Comment on above: Performed By: #### A BSGEL, GFR, ABOGEL, DATIGG, CMP #### [address] [address] AST [Catalytic activity/Vol] 17 U/L Normal 8-34 [facility] ([place] Comment on above: Performed By: #### A BSGEL, GFR, ABOGEL, DATIGG, CMP #### [address] [address] Bili Total 0.50 mg/dL Normal 0.20-1.20 [facility] ([place]) Comment on above: Result Comment: Use of this assay is not recommended for patients undergoing treatment with eltrombopag due to the potential for falsely elevated results. Performed By: #### A BSGEL, GFR, ABOGEL, DATIGG, CMP #### [address] [address] BUN/Creatinine Ratio 16.7 ratio Normal 10.0-22.0 [facility] ([place] Comment on above: Performed By: #### A BSGEL, GFR, ABOGEL, DATIGG, CMP #### [place] [id number] Calcium [Mass/Vol] 8.7 mg/dL Normal 8.7-10.4 [facility] ([place]) Comment on above: Performed By: #### A BSGEL, GFR, ABOGEL, DATIGG, CMP #### [address] [address] Chloride [Moles/Vol] 104 mmol/L Normal 98-110 [facility] ([place]) Comment on above: Performed By: #### A BSGEL, GFR, ABOGEL, DATIGG, CMP #### [address] [address] CO2 [Moles/Vol] 27 mmol/L Normal 22-32 [facility] ([place]) Comment on above: Performed By: #### A BSGEL, GFR, ABOGEL, DATIGG, CMP #### [address] [address] Creatinine [Mass/Vol] 0.84 mg/dL Normal 0.50-1.20 [facility] ([place]) Comment on above: Performed By: #### A BSGEL, GFR, ABOGEL, DATIGG, CMP #### [place] [id number] Electrolyte Balance 6.0 mEq/L Normal 4.0-15.0 [facility] ([place]) Comment on above: Performed By: #### A BSGEL, GFR, ABOGEL, DATIGG, CMP #### [address] [address] Globulin 3.1 G/dL Normal 1.5-3.8 [facility] ([place]) Comment on above: Performed By: #### A BSGEL, GFR, ABOGEL, DATIGG, CMP #### [place] [id number] Glucose [Mass/Vol] 87 mg/dL Normal 70-110 [facility] ([place]) Comment on above: Performed By: #### A BSGEL, GFR, ABOGEL, DATIGG, CMP #### [place] [id number] Potassium [Moles/Vol] 4.0 mmol/L Normal 3.5-5.0 [facility] ([place]) Comment on above: Performed By: #### A BSGEL, GFR, ABOGEL, DATIGG, CMP #### [place] [address] Sodium [Moles/Vol] 137 mmol/L Normal 136-145 [facility] ([place]) Comment on above: Performed By: #### A BSGEL, GFR, ABOGEL, DATIGG, CMP #### [place] [id number] Total Protein 6.6 G/dL Normal 5.7-8.2 [facility] ([place]) Comment on above: Result Comment: No te - New Reference Range in effect 19 Performed By: #### A BSGEL, GFR, ABOGEL, DATIGG, CMP #### [place] [id number] Urea nitrogen [Mass/Vol] 14.0 mg/dL Normal 8.0-22.0 [facility] ([place]) Comment on above: Performed By: #### A BSGEL, GFR, ABOGEL, DATIGG, CMP #### [place] [id number] DATIGGon 12-08-2021 NANO IgG Interp (Gel) Negative Normal [facility] ([place]) Comment on above: Order Comment: Order ed by Discern Performed By: #### A BSGEL, GFR, ABOGEL, DATIGG, CMP #### [address] [id number] LABORATORYOrdered By: Flakita Gardner on 12-08-2021 ABO and Rh group Nom (Bld) Blood group A Rh(D) negative Invalid Interpretation Code AH BB Auto SS Blood group antibody screen Ql NEG (12/08/21 2:01 PM) Invalid Interpretation Code AH BB Auto SS Direct antiglobulin test.IgG specific reagent Ql (RBC) NEG (12/08/21 2:01 PM) Invalid Interpretation Code BB Auto SS LABORATORYOrdered By: [employer] on 12-08-2021 Albumin BCP dye [Mass/Vol] 3.5 G/dL Invalid Interpretation Code 3.2 - 4.8 G/dL AH ADM SS Albumin/Globulin [Mass ratio] 1.1 {ratio} Invalid Interpretation Code 0.9 - 1.6 ratio AH ADM SS ALP [Catalytic activity/Vol] 72 U/L Invalid Interpretation Code 38 - 126 U/L AH ADM SS ALT No additional P-5'-P [Catalytic activity/Vol] 11 U/L Invalid Interpretation Code 10 - 49 U/L AH ADM SS AST [Catalytic activity/Vol] 17 U/L Invalid Interpretation Code 8 - 34 U/L ADM SS Basophils (Bld) [#/Vol] 0.0 103/mcL Invalid Interpretation Code 0.0 - 0.3 10^3/mcL AH Workflow SS Basophils/100 WBC (Bld) 0.4 % Invalid Interpretation Code 0.0 - 2.5 % AH Workflow SS Bilirubin [Mass/Vol] 0.50 mg/dL Invalid Interpretation Code 0.20 - 1.20 mg/dL AH ADM SS Calcium [Mass/Vol] 8.7 mg/dL Invalid Interpretation Code 8.7 - 10.4 mg/dL ADM SS Chloride [Moles/Vol] 104 mmol/L Invalid Interpretation Code 98 - 110 mEq/L ADM SS CO2 [Moles/Vol] 27 mmol/L Invalid Interpretation Code 22 - 32 mEq/L AH ADM SS Creatinine [Mass/Vol] 0.84 mg/dL Invalid Interpretation Code 0.50 - 1.20 mg/dL AH ADM SS Electrolyte Balance 6.0 mEq/L Invalid Interpretation Code 4.0 - 15.0 mEq/L AH ADM SS Eosinophils (Bld) [#/Vol] 0.0 103/mcL Invalid Interpretation Code 0.0 - 0.7 10^3/mcL AH Workflow SS Eosinophils/100 WBC (Bld) 0.5 % Invalid Interpretation Code 0.0 - 6.0 % AH Workflow SS Erythrocyte distribution width (RBC) [Ratio] 15.0 % Invalid Interpretation Code 11.5 - 15.5 % AH Workflow SS GFR/1.73 sq M.predicted among blacks MDRD (S/P/Bld) [Vol rate/Area] ml/min/1.73sqm Invalid Interpretation Code Chemistry S GFR/1.73 sq M.predicted among non-blacks MDRD (S/P/Bld) [Vol rate/Area] ml/min/1.73sqm Invalid Interpretation Code Chemistry S Globulin 3.1 G/dL Invalid Interpretation Code 1.5 - 3.8 G/dL ADM SS Glucose [Mass/Vol] 87 mg/dL Invalid Interpretation Code 70 - 110 mg/dL ADM SS Hematocrit (Bld) [Volume fraction] 33.9 % Invalid Interpretation Code 34.0 - 46.0 % AH Workflow SS Hemoglobin (Bld) [Mass/Vol] 11.6 G/dL Invalid Interpretation Code 12.0 - 16.0 G/dL AH Workflow SS Lymphocytes (Bld) [#/Vol] 0.5 103/mcL Invalid Interpretation Code 0.9 - 4.3 10^3/mcL AH Workflow SS Lymphocytes/100 WBC (Bld) 12.2 % Invalid Interpretation Code 20.0 - 40.0 % AH Workflow SS MCH (RBC) [Entitic mass] 27.3 pg Invalid Interpretation Code 27.0 - 33.0 pg AH Workflow SS MCHC 34.3 G/dL Invalid Interpretation Code 32.0 - 36.0 G/dL AH Workflow SS MCV (RBC) [Entitic vol] 79.6 fL Invalid Interpretation Code 80.0 - 99.0 fL AH Workflow SS Monocytes (Bld) [#/Vol] 0.3 103/mcL Invalid Interpretation Code 0.1 - 1.4 10^3/mcL AH Workflow SS Monocytes/100 WBC (Bld) 7.6 % Invalid Interpretation Code 2.0 - 13.0 % AH Workflow SS Neutrophils (Bld) [#/Vol] 3.2 103/mcL Invalid Interpretation Code 2.3 - 8.1 10^3/mcL AH Workflow SS Neutrophils/100 WBC (Bld) 79.3 % Invalid Interpretation Code 50.0 - 75.0 % AH Workflow SS Platelet mean volume (Bld) [Entitic vol] 7.5 fL Invalid Interpretation Code 6.6 - 10.5 fL Workflow SS Platelets (Bld) [#/Vol] 137 103/mcL Invalid Interpretation Code 150 - 450 10^3/mcL Workflow SS Potassium [Moles/Vol] 4.0 mmol/L Invalid Interpretation Code 3.5 - 5.0 mEq/L ADM SS Protein [Mass/Vol] 6.6 G/dL Invalid Interpretation Code 5.7 - 8.2 G/dL ADM SS RBC (Bld) [#/Vol] 4.26 106/mcL Invalid Interpretation Code 4.10 - 5.30 10^6/mcL Workflow SS Sodium [Moles/Vol] 137 mmol/L Invalid Interpretation Code 136 - 145 mEq/L ADM SS Urea nitrogen [Mass/Vol] 14.0 mg/dL Invalid Interpretation Code 8.0 - 22.0 mg/dL ADM SS Urea nitrogen/Creatinine [Mass ratio] 16.7 ratio Invalid Interpretation Code 10.0 - 22.0 ratio ADM SS WBC (Bld) [#/Vol] 4.0 103/mcL Invalid Interpretation Code 4.5 - 10.8 10^3/mcL Workflow SS Absolute lymphocyte counton 11-18-2021 Lymphocytes Auto (Unsp spec) [#/Vol] 0.50 10*3/uL 0.83-4.51 [facility] Work Phone: Basophil percentageon 2021 Basophils/100 WBC (Bld) 0.4 % 0-1 [facility] Work Phone: Eosinophils/100 WBC (Bld) 3.6 % 0-5 [facility] Work Phone: Neutrophils (Bld) [#/Vol] 4.0 10*3/uL 2.0-7.7 [facility] Work Phone: Neutrophils/100 WBC (Bld) 76.8 % 47-70 [facility] Work Phone: WBC (Bld) [#/Vol] 5.2 10*3/uL 4.4-11.0 [facility] Work Phone: Blood erythrocytes count (nu mber/volume)on 11-18-2021 RBC (Bld) [#/Vol] 4.21 10*6/uL 4.2-5.4 [facility] Work Phone: Blood hemoglobin measurement (mass/volume)on 11-18-2021 Hemoglobin (Bld) [Mass/Vol] 11.3 g/dL 12.0-15.0 [facility] Work Phone: Blood lymphocytes/100 leukoc yteson 11-18-2021 Lymphocytes/100 WBC (Bld) 9.6 % 19-41 [facility] Work Phone: Blood manual differential co mment interpretation (narrative result)on 11-18-2021 Manual differential comment Eleuterio (Bld) [Interp] SCANNED [facility] Work Phone: Blood monocytes/100 leukocyt eson 11-18-2021 Monocytes/100 WBC (Bld) 8.6 % 0-10 [facility] Work Phone: Blood platelet mean volumeon 11-18-2021 Platelet mean volume (Bld) [Entitic vol] 10.1 fL 6.2-12.0 [facility] Work Phone: Determination of erythrocyte mean corpuscular volume (MCV)on 11-18-2021 MCV (RBC) [Entitic vol] 81.2 fL 81-99 [facility] Work Phone: Hematocrit Auto (Bld) [Volum e fraction]on 11-18-2021 Hematocrit (Bld) [Volume fraction] 34.2 % 37-47 [facility] Work Phone: Laboratory - Chemistry and C hemistry - challengeon 11-18-2021 Free T4 [Mass/Vol] 1.21 ng/dL 0.76-1.46 [facility] Work Phone: Laboratory - Hematology and Cell countson 11-18-2021 Erythrocyte distribution width (RBC) [Entitic vol] 38.5 fL 35.1-43.9 [facility] Work Phone: Erythrocyte distribution width (RBC) [Ratio] 13.0 % 11.6-14.6 [facility] Work Phone: Immature granulocytes/100 WBC (Bld) 1.000 % 0.0-0.9 [facility] Work Phone: Comment on above: IG% - Immature Granu locytes (promyelocytes, myelocytes and metamyelocytes) > 1% indicates that a LEFT SHIFT is Present. MCH (RBC) [Entitic mass] 26.8 pg 27.0-32.0 [facility] Work Phone: Nucleated RBC/100 WBC (Bld) [Ratio] 0 % 0-5 [facility] Work Phone: MCHC Auto (RBC) [Mass/Vol]on 11-18-2021 MCHC (RBC) [Mass/Vol] 33.0 g/dL 32-36 [facility] Work Phone: No Panel Informationon 11-18 CA 125 Antigen 51.7 U/mL 0.0-38.1 [facility] Work Phone: Comment on above: [employer] El ectrochemiluminescence Immunoassay(ECLIA)Values obtained with different assay methods or kits cannotbe used interchangeably. Results cannot be interpreted asabsolute evidence of the presence or absence of malignantdisease.Performed at: [address] [id number] Director: Wilner Suarez PhD, Phone: [phone] CA 19-9 Antigen 5 U/mL 0-35 [facility] Work Phone: Comment on above: [email or web address] El ectrochemiluminescence Immunoassay(ECLIA)Values obtained with different assay methods or kits cannotbe used interchangeably. Results cannot be interpreted asabsolute evidence of the presence or absence of malignantdisease. CA 19-9 Antigen Serial Monitoring Not Reportable [facility] Work Phone: Thyroid Stimulating Hormone (TSH) 0.74 uIU/mL 0.358-3.74 [facility] Work Phone: Platelets bldon 11-18-2021 Platelets (Bld) [#/Vol] 186 10*3/uL 150-450 [facility] Work Phone: Serum or plasma carcinoembry onic antigen measurement (mass/volume)on 11-18-2021 Carcinoembryonic Ag [Mass/Vol] ng/mL 0.0-4.7 [facility] Work Phone: Comment on above: Nonsmokers <3.9 Smok ers <5.6[employer] Electrochemiluminescence Immunoassay(ECLIA)Values obtained with different assay methods or kitscannot be used interchangeably. Results cannot beinterpreted as absolute evidence of the presence orabsence of malignant disease. Serum or plasma prolactin me asurement (mass/volume)on 11-13-2021 Prolactin [Mass/Vol] 12.9 ng/mL [facility] Work Phone: Comment on above: NORMAL REFERENCE RAN GES FEMALE NON- 2.2 - 30.3 ng/mL 8.1 - 347.6 ng/mL POST-MENOPAUSAL 0.7 - 31.5 ng/mL MALE 2.5 - 17.4 ng/mL Absolute lymphocyte counton 11-12-2021 Lymphocytes Auto (Unsp spec) [#/Vol] 0.34 10*3/uL 0.83-4.51 [facility] Work Phone: Basophil percentageon 2021 Basophils/100 WBC (Bld) 0.5 % 0-1 [facility] Work Phone: Bilirubin [Mass/Vol] 0.60 mg/dL 0.20-1.00 [facility] Work Phone: Comment on above: For patients on eltr ombopag therapy, use of Dimension [place] TBIL is not recommended. Chloride [Moles/Vol] 102 mmol/L 98-107 [facility] Work Phone: Eosinophils/100 WBC (Bld) 2.3 % 0-5 [facility] Work Phone: Glucose [Mass/Vol] 90 mg/dL 74-106 [facility] Work Phone: Neutrophils (Bld) [#/Vol] 3.5 10*3/uL 2.0-7.7 [facility] Work Phone: Neutrophils/100 WBC (Bld) 81.1 % 47-70 [facility] Work Phone: Potassium [Moles/Vol] 4.1 mmol/L 3.5-5.1 [facility] Work Phone: Protein [Mass/Vol] 7.0 g/dL 6.4-8.2 [facility] Work Phone: [phone] Sodium [Moles/Vol] 135 mmol/L 136-145 [facility] Work Phone: WBC (Bld) [#/Vol] 4.4 10*3/uL 4.4-11.0 [facility] Work Phone: Blood erythrocytes count (nu mber/volume)on 11-12-2021 RBC (Bld) [#/Vol] 4.00 10*6/uL 4.2-5.4 [facility] Work Phone: Blood hemoglobin measurement (mass/volume)on 11-12-2021 Hemoglobin (Bld) [Mass/Vol] 10.9 g/dL 12.0-15.0 [facility] Work Phone: Blood lymphocytes/100 leukoc yteson 11-12-2021 Lymphocytes/100 WBC (Bld) 7.8 % 19-41 [facility] Work Phone: Blood monocytes/100 leukocyt eson 11-12-2021 Monocytes/100 WBC (Bld) 6.9 % 0-10 [facility] Work Phone: Blood platelet mean volumeon 11-12-2021 Platelet mean volume (Bld) [Entitic vol] 10.2 fL 6.2-12.0 [facility] Work Phone: Determination of erythrocyte mean corpuscular volume (MCV)on 11-12-2021 MCV (RBC) [Entitic vol] 82.0 fL 81-99 [facility] Work Phone: Dilute Luis Armando's viper venom timeon 11-12-2021 dRVVT Coag (PPP) [Time] 92.9 s 0.0-47.0 [facility] Work Phone: Erythrocyte sedimentation ra vinicio 11-12-2021 ESR (Bld) [Velocity] 25 mm/h 0-30 [facility] Work Phone: Hematocrit Auto (Bld) [Volum e fraction]on 11-12-2021 Hematocrit (Bld) [Volume fraction] 32.8 % 37-47 [facility] Work Phone: Iron measurement (mass/mass) on 11-12-2021 Iron (Unsp spec) [Mass/Mass] 39 ug/dL 50-170 [facility] Work Phone: Laboratory - Chemistry and C hemistry - challengeon 11-12-2021 ALP [Catalytic activity/Vol] 77 U/L 45-117 [facility] Work Phone: ALT [Catalytic activity/Vol] 19 U/L 13-56 [facility] Work Phone: [phone] CO2 [Moles/Vol] 24.0 mmol/L 21.0-32.0 [facility] Work Phone: Cobalamin (Vitamin B12) [Mass/Vol] 345 pg/mL 211-911 [facility] Work Phone: Globulin (S) [Mass/Vol] 3.6 g/dL 2.2-4.2 [facility] Work Phone: Urea nitrogen/Creatinine [Mass ratio] 17.5 mg/mg 10-20 [facility] Work Phone: [phone] CK [Catalytic activity/Vol] 49 U/L 26-192 [facility] Work Phone: Magnesium [Mass/Vol] 1.7 mg/dL 1.6-2.6 [facility] Work Phone: Laboratory - Hematology and Cell countson 11-12-2021 Erythrocyte distribution width (RBC) [Entitic vol] 38.7 fL 35.1-43.9 [facility] Work Phone: Erythrocyte distribution width (RBC) [Ratio] 12.9 % 11.6-14.6 [facility] Work Phone: Immature granulocytes/100 WBC (Bld) 1.400 % 0.0-0.9 [facility] Work Phone: Comment on above: IG% - Immature Granu locytes (promyelocytes, myelocytes and metamyelocytes) > 1% indicates that a LEFT SHIFT is Present. MCH (RBC) [Entitic mass] 27.3 pg 27.0-32.0 [facility] Work Phone: Nucleated RBC/100 WBC (Bld) [Ratio] 0 % 0-5 [facility] Work Phone: MCHC Auto (RBC) [Mass/Vol]on 11-12-2021 MCHC (RBC) [Mass/Vol] 33.2 g/dL 32-36 [facility] Work Phone: No Panel Informationon 11-12 Estimated GFR (MDRD) Amer 91 mL/min >60 [facility] Work Phone: Comment on above: GFR Calc Estimated GFR (MDRD) Non-Af Amer 75 mL/min >60 [facility] Work Phone: Comment on above: Non- GFR Calc Hexagonal Phase Phospholipid 48 sec 0-11 [facility] Work Phone: Total Iron Binding Capacity 270 ug/dL 250-450 [facility] Work Phone: Levetiracetam (Keppra) Level 37.9 ug/mL 10.0-40.0 [facility] Work Phone: Comment on above: Performed at: [address] [id number] Director: Alexis Stallworth MD, Phone: [phone] Platelets bldon 11-12-2021 Platelets (Bld) [#/Vol] 173 10*3/uL 150-450 [facility] Work Phone: Serum or plasma albumin maria g urement (mass/volume)on 11-12-2021 Albumin [Mass/Vol] 3.4 g/dL 3.2-5.0 [facility] Work Phone: Serum or plasma albumin/glob ulin mass ratioon 11-12-2021 Albumin/Globulin [Mass ratio] 0.9 {ratio} 0.9-2.4 [facility] Work Phone: Serum or plasma calcium maria g urement (mass/volume)on 11-12-2021 Calcium [Mass/Vol] 8.5 mg/dL 8.5-10.1 [facility] Work Phone: Serum or plasma creatinine m easurement (mass/volume)on 11-12-2021 Creatinine [Mass/Vol] 0.86 mg/dL 0.55-1.02 [facility] Work Phone: Comment on above: The validity of the calculated GFR & GFRAA in patients over 70 years has not been determined. Clinical correlation is essential. Serum or plasma ferritin lo surement (mass/volume)on 11-12-2021 Ferritin [Mass/Vol] 369 ng/mL 8- [facility] Work Phone: Serum or plasma folate measu rement (mass/volume)on 11-12-2021 Folate [Mass/Vol] 10.20 ng/mL 3.1-55.4 [facility] Work Phone: Serum or plasma iron saturat ion measurement (mass fraction)on 11-12-2021 Iron saturation [Mass fraction] 14.4 % 15.0-55.0 [facility] Work Phone: Serum or plasma urea nitroge n measurement (mass/volume)on 11-12-2021 Urea nitrogen [Mass/Vol] 15 mg/dL 7-18 [facility] Work Phone: Thin prep Papanicolaou smear with manual screeningon 11-12-2021 Thin prep Papanicolaou smear with manual screening 20 U/L 15-37 [facility] Work Phone: Thin prep Papanicolaou smear with manual screening 9 5-15 [facility] Work Phone: Thin prep Papanicolaou smear with manual screening 210 U/L 84-246 [facility] Work Phone: Thin prep Papanicolaou smear with manual screening 93.8 sec 0.0-47.6 [facility] Work Phone: Thin prep Papanicolaou smear with manual screening 1.96 Ratio 0.00-1.34 [facility] Work Phone: Thin prep Papanicolaou smear with manual screening 102.4 sec 0.0-51.9 [facility] Work Phone: Thin prep Papanicolaou smear with manual screening 88.2 sec 0.0-48.9 [facility] Work Phone: Thin prep Papanicolaou smear with manual screening Comment: . [facility] Work Phone: Comment on above: Results are consiste nt with the presence of a lupus anticoagulant. However,the dPT is markedly extended, as can be seen in patients receiving oralanticoagulant therapy (OAT). In general, OAT can reduce the accuracy oflupus anticoagulant testing and results obtain for patients receiving OATshould be interpreted with caution.As only persistent lupus anticoagulant (LA) positivity meets laboratorydiagnostic criteria for antiphospholipid syndrome, repeat testing in 12 ormore weeks is recommended, ideally in the absence of anticoagulant therapy.Important Note: The results of LA testing are not valid for patientsreceiving anticoagulant therapy. This treatment does not, however,interfere with anticardiolipin and beta-2 glycoprotein 1 antibody testing.Performed at: [facility] [id number] Director: Alexis Stallworth MD, Phone: [phone] Thrombin time in platelet po or plasmaon 11-12-2021 Thrombin time Coag (PPP) [Time] 16.0 sec 0.0-23.0 [facility] Work Phone: Absolute lymphocyte counton 10-21-2021 Lymphocytes Auto (Unsp spec) [#/Vol] 0.74 10*3/uL 0.83-4.51 [facility] Work Phone: Basophil percentageon 2021 Basophil percentage 10-25 SEEN /hpf 0-5 [facility] Work Phone: [phone] Basophils/100 WBC (Bld) 0.4 % 0-1 [facility] Work Phone: Bilirubin [Mass/Vol] 0.70 mg/dL 0.20-1.00 [facility] Work Phone: Comment on above: For patients on eltr ombopag therapy, use of Dimension [place] TBIL is not recommended. Chloride [Moles/Vol] 103 mmol/L 98-107 [facility] Work Phone: Cholesterol [Mass/Vol] 174 mg/dL <200 [facility] Work Phone: [phone] Comment on above: <200 mg/dL Desirable 200-240 mg/dL Borderline >240 mg/dL High Risk Eosinophils/100 WBC (Bld) 0.6 % 0-5 [facility] Work Phone: Glucose [Mass/Vol] 83 mg/dL 74-106 [facility] Work Phone: Neutrophils (Bld) [#/Vol] 3.6 10*3/uL 2.0-7.7 [facility] Work Phone: Neutrophils/100 WBC (Bld) 73.7 % 47-70 [facility] Work Phone: Potassium [Moles/Vol] 3.5 mmol/L 3.5-5.1 [facility] Work Phone: [phone] Protein [Mass/Vol] 7.0 g/dL 6.4-8.2 [facility] Work Phone: Sodium [Moles/Vol] 136 mmol/L 136-145 [facility] Work Phone: Triglyceride [Mass/Vol] 178 mg/dL <199 [facility] Work Phone: Comment on above: The drugs N-Acetylcy steine and Metamizole may falsely depress this assay.Serum Triglycerides Reference Interval Normal <150 mg/dL Borderline high 150 - 199 mg/dL High 200 - 499 mg/dL Very High > or = 500 mg/dL WBC (Bld) [#/Vol] 4.8 10*3/uL 4.4-11.0 [facility] Work Phone: Bilirubin Test strip Ql (U)o n 10-21-2021 Bilirubin Ql (U) Negative Negative [facility] Work Phone: Blood erythrocytes count (nu mber/volume)on 10-21-2021 RBC (Bld) [#/Vol] 3.71 10*6/uL 4.2-5.4 [facility] Work Phone: Blood hemoglobin measurement (mass/volume)on 10-21-2021 Hemoglobin (Bld) [Mass/Vol] 10.2 g/dL 12.0-15.0 [facility] Work Phone: Blood lymphocytes/100 leukoc yteson 10-21-2021 Lymphocytes/100 WBC (Bld) 15.3 % 19-41 [facility] Work Phone: Blood monocytes/100 leukocyt eson 10-21-2021 Monocytes/100 WBC (Bld) 8.3 % 0-10 [facility] Work Phone: Blood platelet mean volumeon 10-21-2021 Platelet mean volume (Bld) [Entitic vol] 10.5 fL 6.2-12.0 [facility] Work Phone: Determination of erythrocyte mean corpuscular volume (MCV)on 10-21-2021 MCV (RBC) [Entitic vol] 84.1 fL 81-99 [facility] Work Phone: Hematocrit Auto (Bld) [Volum e fraction]on 10-21-2021 Hematocrit (Bld) [Volume fraction] 31.2 % 37-47 [facility] Work Phone: Iron measurement (mass/mass) on 10-21-2021 Iron (Unsp spec) [Mass/Mass] 39 ug/dL 50-170 [facility] Work Phone: Ketones Test strip Ql (U)on 10-21-2021 Ketones Ql (U) Negative Negative [facility] Work Phone: Laboratory - Chemistry and C hemistry - challengeon 10-21-2021 ALP [Catalytic activity/Vol] 63 U/L 45-117 [facility] Work Phone: ALT [Catalytic activity/Vol] 22 U/L 13-56 [facility] Work Phone: CO2 [Moles/Vol] 26.0 mmol/L 21.0-32.0 [facility] Work Phone: Cobalamin (Vitamin B12) [Mass/Vol] 251 pg/mL 211-911 [facility] Work Phone: [phone] Globulin (S) [Mass/Vol] 3.6 g/dL 2.2-4.2 [facility] Work Phone: Urea nitrogen/Creatinine [Mass ratio] 21.2 mg/mg 10-20 [facility] Work Phone: Laboratory - Hematology and Cell countson 10-21-2021 Erythrocyte distribution width (RBC) [Entitic vol] 39.0 fL 35.1-43.9 [facility] Work Phone: Erythrocyte distribution width (RBC) [Ratio] 12.8 % 11.6-14.6 [facility] Work Phone: Immature granulocytes/100 WBC (Bld) 1.700 % 0.0-0.9 [facility] Work Phone: Comment on above: IG% - Immature Granu locytes (promyelocytes, myelocytes and metamyelocytes) > 1% indicates that a LEFT SHIFT is Present. MCH (RBC) [Entitic mass] 27.5 pg 27.0-32.0 [facility] Work Phone: Nucleated RBC/100 WBC (Bld) [Ratio] 0 % 0-5 [facility] Work Phone: MCHC Auto (RBC) [Mass/Vol]on 10-21-2021 MCHC (RBC) [Mass/Vol] 32.7 g/dL 32-36 [facility] Work Phone: Comment on above: Delta: 35.0 on 10/16-1511 Mucus LM Ql (Urine sed)on Mucus Ql (Urine sed) 0 SEEN /hpf [facility] Work Phone: Nitrite Test strip Ql (U)on 10-21-2021 Nitrite Ql (U) Negative Negative [facility] Work Phone: No Panel Informationon 10-21 Estimated GFR (MDRD) Amer 98 mL/min >60 [facility] Work Phone: Comment on above: GFR Calc Estimated GFR (MDRD) Non-Af Amer 81 mL/min >60 [facility] Work Phone: Comment on above: Non- GFR Calc Thyroid Stimulating Hormone (TSH) 1.33 uIU/mL 0.358-3.74 [facility] Work Phone: Total Iron Binding Capacity 308 ug/dL 250-450 [facility] Work Phone: Platelets bldon 10-21-2021 Platelets (Bld) [#/Vol] 170 10*3/uL 150-450 [facility] Work Phone: Protein Test strip Ql (U)on 10-21-2021 Protein Ql (U) Negative Negative [facility] Work Phone: Serum or plasma albumin maria g urement (mass/volume)on 10-21-2021 Albumin [Mass/Vol] 3.4 g/dL 3.2-5.0 [facility] Work Phone: Serum or plasma albumin/glob ulin mass ratioon 10-21-2021 Albumin/Globulin [Mass ratio] 0.9 {ratio} 0.9-2.4 [facility] Work Phone: Serum or plasma calcium maria g urement (mass/volume)on 10-21-2021 Calcium [Mass/Vol] 8.8 mg/dL 8.5-10.1 [facility] Work Phone: Serum or plasma cholesterol in HDL measurement (mass/volume)on 10-21-2021 Cholesterol in HDL [Mass/Vol] 44 mg/dL >40 [facility] Work Phone: Comment on above: The drugs N-Acetylcy steine and Metamizole may falsely depress this assay. Reference Range HDL <40 mg/dL Low HDL Cholesterol HDL >or= 60 mg/dL High HDL Cholesterol Serum or plasma cholesterol in VLDL measurement (mass/volume)on 10-21-2021 Cholesterol in VLDL [Mass/Vol] 36 mg/dL 5-40 [facility] Work Phone: Serum or plasma creatinine m easurement (mass/volume)on 10-21-2021 Creatinine [Mass/Vol] 0.80 mg/dL 0.55-1.02 [facility] Work Phone: Comment on above: The validity of the calculated GFR & GFRAA in patients over 70 years has not been determined. Clinical correlation is essential. Serum or plasma ferritin lo surement (mass/volume)on 10-21-2021 Ferritin [Mass/Vol] 261 ng/mL 8-252 [facility] Work Phone: Serum or plasma folate measu rement (mass/volume)on 10-21-2021 Folate [Mass/Vol] 10.60 ng/mL 3.1-55.4 [facility] Work Phone: Serum or plasma low density lipoprotein (LDL) cholesterol measurement (mass/volume)on 10-21-2021 Cholesterol in LDL [Mass/Vol] 94 mg/dL 0-130 [facility] Work Phone: Serum or plasma urea nitroge n measurement (mass/volume)on 10-21-2021 Urea nitrogen [Mass/Vol] 17 mg/dL 7-18 [facility] Work Phone: Squamous epithelial cells de tection in urine sediment by light microscopyon 10-21-2021 Epithelial cells.squamous LM Ql (Urine sed) 5-10 SEEN /hpf 5-10 [facility] Work Phone: Thin prep Papanicolaou smear with manual screeningon 10-21-2021 Thin prep Papanicolaou smear with manual screening 16 U/L 15-37 [facility] Work Phone: Thin prep Papanicolaou smear with manual screening 7 5-15 [facility] Work Phone: Urine blood detectionon 08-0 -2021 RBC Ql (U) Negative Negative [facility] Work Phone: RBC Ql (U) 0 SEEN /hpf 0-5 [facility] Work Phone: Urine clarityon 10-21-2021 Clarity (U) Clear Clear [facility] Work Phone: Urine color determinationon 10-21-2021 Color (U) Straw Yellow [facility] Work Phone: Urine glucose detectionon Glucose Ql (U) Normal mg/dl Normal [facility] Work Phone: Urine leukocyte esterase det ection by dipstickon 10-21-2021 Leukocyte esterase Test strip Ql (U) 500 /ul Negative [facility] Work Phone: Urine pHon 10-21-2021 pH (U) 6.0 [pH] 5.0 - 8.0 [facility] Work Phone: Urine sediment bacteria coun t by microscopy (number/high power field)on 10-21-2021 Bacteria LM.HPF (Urine sed) [#/Area] 2 /[HPF] None Seen [facility] Work Phone: Urine specific gravity measu rementon 10-21-2021 Specific gravity (U) [Rel density] 1.015 1.002-1.030 [facility] Work Phone: Urobilinogen Auto test strip Ql (U)on 10-21-2021 Urobilinogen Ql (U) Normal mg/dl Normal [facility] Work Phone: Whole blood hemoglobin A1c/t otal hemoglobin ratio (mass fraction)on 10-21-2021 HbA1c (Bld) [Mass fraction] 5.1 % 3.8-5.6 [facility] Work Phone: Comment on above: Normal < 5.7 % Predi abetic 5.7 - 6.4 % Diabetic >or= 6.5 % Please note range changes. Absolute lymphocyte counton 10-16-2021 Lymphocytes Auto (Unsp spec) [#/Vol] 0.66 10*3/uL 0.83-4.51 [facility] Work Phone: Basophil percentageon 2021 Basophil percentage 0 SEEN /hpf 0-5 [facility] Work Phone: [phone] Basophils/100 WBC (Bld) 0.0 % 0-1 [facility] Work Phone: Eosinophils/100 WBC (Bld) 0.0 % 0-5 [facility] Work Phone: Neutrophils (Bld) [#/Vol] 3.5 10*3/uL 2.0-7.7 [facility] Work Phone: Neutrophils/100 WBC (Bld) 77.0 % 47-70 [facility] Work Phone: WBC (Bld) [#/Vol] 4.6 10*3/uL 4.4-11.0 [facility] Work Phone: Bilirubin Test strip Ql (U)o n 10-16-2021 Bilirubin Ql (U) Negative Negative [facility] Work Phone: Blood erythrocytes count (nu mber/volume)on 10-16-2021 RBC (Bld) [#/Vol] 3.64 10*6/uL 4.2-5.4 [facility] Work Phone: Blood hemoglobin measurement (mass/volume)on 10-16-2021 Hemoglobin (Bld) [Mass/Vol] 10.4 g/dL 12.0-15.0 [facility] Work Phone: Blood lymphocytes/100 leukoc yteson 10-16-2021 Lymphocytes/100 WBC (Bld) 14.4 % 19-41 [facility] Work Phone: Blood monocytes/100 leukocyt eson 10-16-2021 Monocytes/100 WBC (Bld) 7.9 % 0-10 [facility] Work Phone: Blood platelet mean volumeon 10-16-2021 Platelet mean volume (Bld) [Entitic vol] 10.3 fL 6.2-12.0 [facility] Work Phone: Determination of erythrocyte mean corpuscular volume (MCV)on 10-16-2021 MCV (RBC) [Entitic vol] 81.6 fL 81-99 [facility] Work Phone: Hematocrit Auto (Bld) [Volum e fraction]on 10-16-2021 Hematocrit (Bld) [Volume fraction] 29.7 % 37-47 [facility] Work Phone: Ketones Test strip Ql (U)on 10-16-2021 Ketones Ql (U) Negative Negative [facility] Work Phone: Laboratory - Chemistry and C hemistry - challengeon 10-16-2021 ALT [Catalytic activity/Vol] 21 U/L 13-56 [facility] Work Phone: Laboratory - Hematology and Cell countson 10-16-2021 Erythrocyte distribution width (RBC) [Entitic vol] 37.4 fL 35.1-43.9 [facility] Work Phone: Erythrocyte distribution width (RBC) [Ratio] 12.5 % 11.6-14.6 [facility] Work Phone: Immature granulocytes/100 WBC (Bld) 0.700 % 0.0-0.9 [facility] Work Phone: Comment on above: IG% - Immature Granu locytes (promyelocytes, myelocytes and metamyelocytes) > 1% indicates that a LEFT SHIFT is Present. MCH (RBC) [Entitic mass] 28.6 pg 27.0-32.0 [facility] Work Phone: Nucleated RBC/100 WBC (Bld) [Ratio] 0 % 0-5 [facility] Work Phone: MCHC Auto (RBC) [Mass/Vol]on 10-16-2021 MCHC (RBC) [Mass/Vol] 35.0 g/dL 32-36 [facility] Work Phone: Mucus LM Ql (Urine sed)on Mucus Ql (Urine sed) 0 SEEN /hpf [facility] Work Phone: Nitrite Test strip Ql (U)on 10-16-2021 Nitrite Ql (U) Negative Negative [facility] Work Phone: No Panel Informationon 10-16 Miscellaneous Test See comment [facility] Work Phone: Comment on above: TEST RESULT LIMITSds DNA Crithidia luciliae IFA dsDNA Crithidia luciliae IFA Positive Abnormal Negative dsDNA Crithidia luciliae Titer 1:40 High Neg<1:10 _ TESTING PERFORMED AT [facility]. ORIGINAL REPORT ON FILE IN LAB CONTAINS ADDITIONAL TEST SITE INFORMATION. Estimated GFR (MDRD) Amer 83 mL/min >60 [facility] Work Phone: Comment on above: GFR Calc Estimated GFR (MDRD) Non-Af Amer 69 mL/min >60 [facility] Work Phone: Comment on above: Non- GFR Calc Vitamin D 25-Hydroxy 99.2 ng/mL [facility] Work Phone: Comment on above: Vitamin D 25(OH) Sta tus Range Deficiency <20 ng/mL (50nmol/L) Insufficiency 20 - 30 ng/mL (50 - 75 nmol/L) Sufficiency 30 - 100 ng/mL (75 - 250 nmol/L) Toxicity >100 ng/mL (>250 nmol/L) Platelets bldon 10-16-2021 Platelets (Bld) [#/Vol] 166 10*3/uL 150-450 [facility] Work Phone: Protein Test strip Ql (U)on 10-16-2021 Protein Ql (U) Negative Negative [facility] Work Phone: Serum or plasma C reactive p rotein measurement (mass/volume)on 10-16-2021 CRP [Mass/Vol] 15.30 mg/L 0.0-3.0 [facility] Work Phone: Comment on above: C-Reactive Protein ( CRP) provides useful information for thediagnosis, therapy and monitoring of inflammatory processesand associated diseases. For the evaluation of Relative Riskfor Cardiovascular Disease, a High Sensitivity CRP (HSCRP)should be ordered. Serum or plasma albumin maria g urement (mass/volume)on 10-16-2021 Albumin [Mass/Vol] 3.6 g/dL 3.2-5.0 [facility] Work Phone: Serum or plasma complement C 3 measurement (mass/volume)on 10-16-2021 Complement C3 [Mass/Vol] 109 mg/dL 82-167 [facility] Work Phone: Comment on above: Performed at: [place] [id number] Director: Wilner Suarez PhD, Phone: [phone] Serum or plasma complement C 4 measurement (mass/volume)on 10-16-2021 Complement C4 [Mass/Vol] 21 mg/dL 12-38 [facility] Work Phone: Serum or plasma creatinine m easurement (mass/volume)on 10-16-2021 Creatinine [Mass/Vol] 0.93 mg/dL 0.55-1.02 [facility] Work Phone: Comment on above: The validity of the calculated GFR & GFRAA in patients over 70 years has not been determined. Clinical correlation is essential. Serum or plasma urea nitroge n measurement (mass/volume)on 10-16-2021 Urea nitrogen [Mass/Vol] 19 mg/dL 7-18 [facility] Work Phone: Squamous epithelial cells de tection in urine sediment by light microscopyon 10-16-2021 Epithelial cells.squamous LM Ql (Urine sed) 0 SEEN /hpf 5-10 [facility] Work Phone: Thin prep Papanicolaou smear with manual screeningon 10-16-2021 Thin prep Papanicolaou smear with manual screening 20 U/L 15-37 [facility] Work Phone: Urine blood detectionon 09-20 RBC Ql (U) Negative Negative [facility] Work Phone: RBC Ql (U) 0 SEEN /hpf 0-5 [facility] Work Phone: Urine clarityon 10-16-2021 Clarity (U) Clear Clear [facility] Work Phone: Urine color determinationon 10-16-2021 Color (U) Yellow Yellow [facility] Work Phone: Urine creatinine measurement (mass/volume)on 10-16-2021 Creatinine (U) [Mass/Vol] 61.00 mg/dL NO RANGE EST. [facility] Work Phone: Urine glucose detectionon Glucose Ql (U) Normal mg/dl Normal [facility] Work Phone: Urine leukocyte esterase det ection by dipstickon 10-16-2021 Leukocyte esterase Test strip Ql (U) Negative Negative [facility] Work Phone: Urine pHon 10-16-2021 pH (U) 6.0 [pH] 5.0 - 8.0 [facility] Work Phone: Urine protein measurement (m ass/volume)on 10-16-2021 Protein (U) [Mass/Vol] 13.3 mg/dL 0.0-11.8 [facility] Work Phone: Urine protein/creatinine mas s ratioon 10-16-2021 Protein/Creatinine (U) [Mass ratio] 218 mg/g CRE 0-200 [facility] Work Phone: Urine sediment bacteria coun t by microscopy (number/high power field)on 10-16-2021 Bacteria LM.HPF (Urine sed) [#/Area] 0 /[HPF] None Seen [facility] Work Phone: Urine specific gravity measu rementon 10-16-2021 Specific gravity (U) [Rel density] 1.015 1.002-1.030 [facility] Work Phone: Urobilinogen Auto test strip Ql (U)on 10-16-2021 Urobilinogen Ql (U) Normal mg/dl Normal [facility] Work Phone: Absolute lymphocyte counton 09-09-2021 Lymphocytes Auto (Unsp spec) [#/Vol] 0.51 10*3/uL 0.83-4.51 [facility] Work Phone: Basophil percentageon 2021 Basophils/100 WBC (Bld) 0.3 % 0-1 [facility] Work Phone: Bilirubin [Mass/Vol] 0.50 mg/dL 0.20-1.00 [facility] Work Phone: Comment on above: For patients on eltr ombopag therapy, use of Dimension [place] TBIL is not recommended. Chloride [Moles/Vol] 104 mmol/L 98-107 [facility] Work Phone: Eosinophils/100 WBC (Bld) 0.7 % 0-5 [facility] Work Phone: Glucose [Mass/Vol] 101 mg/dL 74-106 [facility] Work Phone: Comment on above: Fasting Glucose resu lt from 100 to 125 mg/dL suggests IMPAIRED HOMEOSTASIS per A.D.A. criteria. Neutrophils (Bld) [#/Vol] 2.2 10*3/uL 2.0-7.7 [facility] Work Phone: Neutrophils/100 WBC (Bld) 72.4 % 47-70 [facility] Work Phone: Potassium [Moles/Vol] 3.9 mmol/L 3.5-5.1 [facility]: Protein [Mass/Vol] 7.1 g/dL 6.4-8.2 [facility] Work Phone: Sodium [Moles/Vol] 137 mmol/L 136-145 [facility] Work Phone: WBC (Bld) [#/Vol] 3.0 10*3/uL 4.4-11.0 [facility] Work Phone: Blood erythrocytes count (nu mber/volume)on 09-09-2021 RBC (Bld) [#/Vol] 3.81 10*6/uL 4.2-5.4 [facility]: Blood hemoglobin measurement (mass/volume)on 09-09-2021 Hemoglobin (Bld) [Mass/Vol] 10.6 g/dL 12.0-15.0 [facility] Work Phone: Blood lymphocytes/100 leukoc yteson 09-09-2021 Lymphocytes/100 WBC (Bld) 17.2 % 19-41 [facility] Work Phone: [phone] Blood manual differential co mment interpretation (narrative result)Ordered By: Dr. Harrell on 09-09-2021 Manual differential comment Eleuterio (Bld) [Interp] SCANNED [facility] Comment on above: LYMPHOPENIA NOTED Blood monocytes/100 leukocyt eson 09-09-2021 Monocytes/100 WBC (Bld) 9.1 % 0-10 [facility] Work Phone: Blood platelet mean volumeon 09-09-2021 Platelet mean volume (Bld) [Entitic vol] 9.9 fL 6.2-12.0 [facility] Work Phone: [phone] Determination of erythrocyte mean corpuscular volume (MCV)on 09-09-2021 MCV (RBC) [Entitic vol] 81.9 fL 81-99 [facility] Work Phone: Erythrocyte sedimentation ra teOrdered By: Dr. Harrell on 09-09-2021 ESR (Bld) [Velocity] 11 mm/h 0-30 [facility] Hematocrit Auto (Bld) [Volum e fraction]on 09-09-2021 Hematocrit (Bld) [Volume fraction] 31.2 % 37-47 [facility] Work Phone: INR in Blood by Coagulation assayOrdered By: Dr. Harrell on 09-09-2021 INR Coag (Bld) [Relative time] 1.0 {INR} [facility] Iron measurement (mass/mass) on 09-09-2021 Iron (Unsp spec) [Mass/Mass] 31 ug/dL 50-170 [facility] Work Phone: Laboratory - Chemistry and C hemistry - challengeon 09-09-2021 ALP [Catalytic activity/Vol] 81 U/L 45-117 [facility] Work Phone: ALT [Catalytic activity/Vol] 27 U/L 13-56 [facility] Work Phone: CO2 [Moles/Vol] 23.0 mmol/L 21.0-32.0 [facility] Work Phone: Globulin (S) [Mass/Vol] 3.6 g/dL 2.2-4.2 [facility] Work Phone: Urea nitrogen/Creatinine [Mass ratio] 17.0 mg/mg 10-20 [facility] Work Phone: Laboratory - CoagulationOrde red By: Dr. Harrell on 09-09-2021 aPTT Coag (Bld) [Time] 57.4 s High 24.1-36.2 [facility] PT Coag (PPP) [Time] 13.2 s 11.7-14.9 [facility] Laboratory - Hematology and Cell countson 09-09-2021 Erythrocyte distribution width (RBC) [Entitic vol] 39.1 fL 35.1-43.9 [facility] Work Phone: Erythrocyte distribution width (RBC) [Ratio] 13.1 % 11.6-14.6 [facility] Work Phone: Immature granulocytes/100 WBC (Bld) 0.300 % 0.0-0.9 [facility] Work Phone: Comment on above: IG% - Immature Granu locytes (promyelocytes, myelocytes and metamyelocytes) > 1% indicates that a LEFT SHIFT is Present. MCH (RBC) [Entitic mass] 27.8 pg 27.0-32.0 [facility] Work Phone: Nucleated RBC/100 WBC (Bld) [Ratio] 0 % 0-5 [facility] Work Phone: MCHC Auto (RBC) [Mass/Vol]on 09-09-2021 MCHC (RBC) [Mass/Vol] 34.0 g/dL 32-36 [facility] Work Phone: Manual differential comment Eleuterio (Bld) [Interp]Ordered By: Alex Harrell on 09-09-2021 Differential Comment SCANNED [facility] Comment on above: LYMPHOPENIA NOTED No Panel InformationOrdered By: Dr. Harrell on 09-09-2021 D-Dimer Quantitative (PE/DVT) 1.14 FEU/ug/m Critically high 0.27-0.49 [facility] Comment on above: D-Dimer ELEVATED (>0 .49): Additional studies and clinicalassessments are indicated to conclude diagnosis of:Deep Vein Thrombosis (DVT) or Pulmonary Embolism (PE)CRITICAL VALUE VERIFIED. CALLED TO [facility]OWSPH41/21/22 1629 Ciara Estrada.RESULTS READ BACK BY SAME . Fibrinogen 371 mg/dl 203-444 [facility] Haptoglobin 157 mg/dL 42-296 [facility] Comment on above: Performed at: [address] [id number] Director: Wilner Suarez PhD, Phone: [phone] No Panel Informationon 09-09 Estimated GFR (MDRD) Amer 82 mL/min >60 [facility] Work Phone: Comment on above: GFR Calc Estimated GFR (MDRD) Non-Af Amer 67 mL/min >60 [facility] Work Phone: Comment on above: Non- GFR Calc Total Iron Binding Capacity 259 ug/dL 250-450 [facility] Work Phone: Pathologist review Eleuterio (Unsp spec) [Interp]Ordered By: Alex Harrell on 09-09-2021 Differential Pathologist's Review Reviewed [facility] Comment on above: Previous reported re sult: May foll Edited by: RGOOD on 09/10/21:1249Pancytopenia.Normocytic anemia.Leukopenia Mild ThrombocytopeniaClinical correlation necessary.Chuck Sepulveda M.D. 09/10/21 AMENDED REPORT 09/10/21 1249 PATH REV previously reported as: July henok Platelets bldon 09-09-2021 Platelets (Bld) [#/Vol] 131 10*3/uL 150-450 [facility] Work Phone: Review by pathologistOrdered By: Dr. Harrell on 09-09-2021 Pathologist review Eleuterio (Unsp spec) [Interp] Reviewed [facility] Comment on above: Previous reported re sult: May foll Edited by: RGOOD on 09/10/21:1249Pancytopenia.Normocytic anemia.Leukopenia Mild ThrombocytopeniaClinical correlation necessary.Chuck Sepulveda M.D. 09/10/21 AMENDED REPORT 09/10/21 1249 PATH REV previously reported as: July henok Serum or plasma albumin maria g urement (mass/volume)on 09-09-2021 Albumin [Mass/Vol] 3.5 g/dL 3.2-5.0 [facility] Work Phone: Serum or plasma albumin/glob ulin mass ratioon 09-09-2021 Albumin/Globulin [Mass ratio] 1.0 {ratio} 0.9-2.4 [facility] Work Phone: Serum or plasma calcium maria g urement (mass/volume)on 09-09-2021 Calcium [Mass/Vol] 9.0 mg/dL 8.5-10.1 [facility] Work Phone: Serum or plasma creatinine m easurement (mass/volume)on 09-09-2021 Creatinine [Mass/Vol] 0.94 mg/dL 0.55-1.02 [facility] Work Phone: Comment on above: The validity of the calculated GFR & GFRAA in patients over 70 years has not been determined. Clinical correlation is essential. Serum or plasma ferritin lo surement (mass/volume)on 09-09-2021 Ferritin [Mass/Vol] 279 ng/mL 8-252 [facility] Work Phone: Serum or plasma iron saturat ion measurement (mass fraction)on 09-09-2021 Iron saturation [Mass fraction] 12.0 % 15.0-55.0 [facility] Work Phone: Serum or plasma urea nitroge n measurement (mass/volume)on 09-09-2021 Urea nitrogen [Mass/Vol] 16 mg/dL 7-18 [facility] Work Phone: Thin prep Papanicolaou smear with manual screeningon 09-09-2021 Thin prep Papanicolaou smear with manual screening 22 U/L 15-37 [facility] Work Phone: Thin prep Papanicolaou smear with manual screening 10 5-15 [facility] Work Phone: Thin prep Papanicolaou smear with manual screening 215 U/L 84-246 [facility] Work Phone: Absolute lymphocyte counton 06-09-2021 Lymphocytes Auto (Unsp spec) [#/Vol] 0.78 10*3/uL 0.83-4.51 [facility] Work Phone: [phone] Basophil percentageon 2021 Basophil percentage 0 SEEN /hpf 0-5 [facility] Work Phone: [phone] Basophils/100 WBC (Bld) 0.4 % 0-1 [facility] Work Phone: Eosinophils/100 WBC (Bld) 1.0 % 0-5 [facility] Work Phone: Neutrophils (Bld) [#/Vol] 3.5 10*3/uL 2.0-7.7 [facility] Work Phone: Neutrophils/100 WBC (Bld) 73.0 % 47-70 [facility] Work Phone: WBC (Bld) [#/Vol] 4.9 10*3/uL 4.4-11.0 [facility] Work Phone: Bilirubin Test strip Ql (U)o n 06-09-2021 Bilirubin Ql (U) Negative Negative [facility] Work Phone: Blood erythrocytes count (nu mber/volume)on 06-09-2021 RBC (Bld) [#/Vol] 4.34 10*6/uL 4.2-5.4 [facility] Work Phone: Blood hemoglobin measurement (mass/volume)on 06-09-2021 Hemoglobin (Bld) [Mass/Vol] 12.2 g/dL 12.0-15.0 [facility] Work Phone: Blood lymphocytes/100 leukoc yteson 06-09-2021 Lymphocytes/100 WBC (Bld) 16.0 % 19-41 [facility] Work Phone: Blood monocytes/100 leukocyt eson 06-09-2021 Monocytes/100 WBC (Bld) 8.6 % 0-10 [facility] Work Phone: Blood platelet mean volumeon 06-09-2021 Platelet mean volume (Bld) [Entitic vol] 10.5 fL 6.2-12.0 [facility] Work Phone: Determination of erythrocyte mean corpuscular volume (MCV)on 06-09-2021 MCV (RBC) [Entitic vol] 79.0 fL 81-99 [facility] Work Phone: Erythrocyte sedimentation ra vinicio 06-09-2021 ESR (Bld) [Velocity] 9 mm/h 0-30 [facility] Work Phone: Hematocrit Auto (Bld) [Volum e fraction]on 06-09-2021 Hematocrit (Bld) [Volume fraction] 34.3 % 37-47 [facility] Work Phone: Ketones Test strip Ql (U)on 06-09-2021 Ketones Ql (U) 5 mg/dl Negative [facility] Work Phone: Laboratory - Chemistry and C hemistry - challengeon 06-09-2021 ALT [Catalytic activity/Vol] 26 U/L 13-56 [facility] Work Phone: CK [Catalytic activity/Vol] 85 U/L 26-192 [facility] Work Phone: Laboratory - Hematology and Cell countson 06-09-2021 Erythrocyte distribution width (RBC) [Entitic vol] 37.5 fL 35.1-43.9 [facility] Work Phone: Erythrocyte distribution width (RBC) [Ratio] 13.1 % 11.6-14.6 [facility] Work Phone: Immature granulocytes/100 WBC (Bld) 1.000 % 0.0-0.9 [facility] Work Phone: Comment on above: IG% - Immature Granu locytes (promyelocytes, myelocytes and metamyelocytes) > 1% indicates that a LEFT SHIFT is Present. MCH (RBC) [Entitic mass] 28.1 pg 27.0-32.0 [facility] Work Phone: Nucleated RBC/100 WBC (Bld) [Ratio] 0 % 0-5 [facility] Work Phone: MCHC Auto (RBC) [Mass/Vol]on 06-09-2021 MCHC (RBC) [Mass/Vol] 35.6 g/dL 32-36 [facility] Work Phone: Mucus LM Ql (Urine sed)on Mucus Ql (Urine sed) 0 SEEN /hpf [facility] Work Phone: Nitrite Test strip Ql (U)on 06-09-2021 Nitrite Ql (U) Negative Negative [facility] Work Phone: No Panel Informationon 06-09 Estimated GFR (MDRD) Amer 64 mL/min >60 [facility] Work Phone: Comment on above: GFR Calc Estimated GFR (MDRD) Non-Af Amer 53 mL/min >60 [facility] Work Phone: Comment on above: Non- GFR Calc Miscellaneous Test See comment [facility] Work [facility]: Comment on above: TEST RESULT LIMITSTh iopurine MethyltransferaseTPMT Activity 19.1 Units/mL RBCReference Range:Normal: 15.1 - 26.4Heterozygous for low TPMT variant: 6.3 - 15.0Homozygous for low TPMT variant: <6.3Interpretation: The above results can be interpreted as Normal for redblood cell Thiopurine Methyltransferase activity. Forpatients having an intrinsic low level of TPMT, recent RBCtransfusion can variably increase their assayed enzymaticactivity depending on the amount and circulating half-lifeof the transfused red blood cells.This test was developed and its performance characteristicsdetermined by [employer]. It has not been cleared or approvedby the Food and Drug Administration.This case has been reviewed, approved, interpreted andelectronically signed by Tyrone Viera, PhD, [facility].Methodology Enzymatic Endpoint/Liquid Chromatography - Tandem Mass Spectrometry (LC-MS/MS) ___ TESTING PERFORMED AT [facility]. ORIGINAL REPORT ON FILE IN LAB CONTAINS ADDITIONAL TEST SITE INFORMATION. Platelets bldon 06-09-2021 Platelets (Bld) [#/Vol] 111 10*3/uL 150-450 [facility] Work Phone: Protein Test strip Ql (U)on 06-09-2021 Protein Ql (U) 15 mg/dl Negative [facility] Work Phone: Serum or plasma C reactive p rotein measurement (mass/volume)on 06-09-2021 CRP [Mass/Vol] 16.30 mg/L 0.0-3.0 [facility] Work Phone: Comment on above: C-Reactive Protein ( CRP) provides useful information for thediagnosis, therapy and monitoring of inflammatory processesand associated diseases. For the evaluation of Relative Riskfor Cardiovascular Disease, a High Sensitivity CRP (HSCRP)should be ordered. Serum or plasma albumin maria g urement (mass/volume)on 06-09-2021 Albumin [Mass/Vol] 3.6 g/dL 3.2-5.0 [facility] Work Phone: Serum or plasma creatinine m easurement (mass/volume)on 06-09-2021 Creatinine [Mass/Vol] 1.16 mg/dL 0.55-1.02 [facility] Work Phone: Comment on above: The validity of the calculated GFR & GFRAA in patients over 70 years has not been determined. Clinical correlation is essential. Serum or plasma urea nitroge n measurement (mass/volume)on 06-09-2021 Urea nitrogen [Mass/Vol] 17 mg/dL 7-18 [facility] Work Phone: Squamous epithelial cells de tection in urine sediment by light microscopyon 06-09-2021 Epithelial cells.squamous LM Ql (Urine sed) 0-5 SEEN /hpf 5-10 [facility] Work Phone: Thin prep Papanicolaou smear with manual screeningon 06-09-2021 Thin prep Papanicolaou smear with manual screening 21 U/L 15-37 [facility] Work Phone: Urine blood detectionon 05-21 RBC Ql (U) 150 /ul Negative [facility] Work Phone: RBC Ql (U) 0-5 SEEN /hpf 0-5 [facility] Work Phone: Urine clarityon 06-09-2021 Clarity (U) Clear Clear [facility] Work Phone: Urine color determinationon 06-09-2021 Color (U) Yellow Yellow [facility] Work Phone: Urine creatinine measurement (mass/volume)on 06-09-2021 Creatinine (U) [Mass/Vol] 144.00 mg/dL NO RANGE EST. [facility] Work Phone: Urine glucose detectionon Glucose Ql (U) Normal mg/dl Normal [facility] Work Phone: Urine leukocyte esterase det ection by dipstickon 06-09-2021 Leukocyte esterase Test strip Ql (U) 25 /ul Negative [facility] Work Phone: Urine pHon 06-09-2021 pH (U) 5.0 [pH] 5.0 - 8.0 [facility] Work Phone: Urine protein measurement (m ass/volume)on 06-09-2021 Protein (U) [Mass/Vol] 22.0 mg/dL 0.0-11.8 [facility] Work Phone: Urine protein/creatinine mas s ratioon 06-09-2021 Protein/Creatinine (U) [Mass ratio] 153 mg/g CRE 0-200 [facility] Work Phone: Urine sediment bacteria coun t by microscopy (number/high power field)on 06-09-2021 Bacteria LM.HPF (Urine sed) [#/Area] 0 /[HPF] None Seen [facility] Work Phone: Urine specific gravity measu rementon 06-09-2021 Specific gravity (U) [Rel density] 1.025 1.002-1.030 [facility] Work Phone: Urobilinogen Auto test strip Ql (U)on 06-09-2021 Urobilinogen Ql (U) Normal mg/dl Normal [facility] Work Phone: Absolute lymphocyte counton 05-14-2021 Lymphocytes Auto (Unsp spec) [#/Vol] 0.84 10*3/uL 0.83-4.51 [facility] Work Phone: Basophil percentageon 2021 Basophil percentage 2.9 mg/dL 2.5-4.9 [facility] Basophils/100 WBC (Bld) 0.2 % 0-1 [facility] Work Phone: Bilirubin [Mass/Vol] 0.80 mg/dL 0.20-1.00 [facility] Work Phone: Comment on above: For patients on eltr ombopag therapy, use of Dimension [place] TBIL is not recommended. Chloride [Moles/Vol] 112 mmol/L 98-107 [facility] Work Phone: Eosinophils/100 WBC (Bld) 1.4 % 0-5 [facility] Work Phone: Glucose [Mass/Vol] 88 mg/dL 74-106 [facility] Work Phone: Neutrophils (Bld) [#/Vol] 3.1 10*3/uL 2.0-7.7 [facility] Work Phone: [phone] Neutrophils/100 WBC (Bld) 69.7 % 47-70 [facility] Work Phone: Potassium [Moles/Vol] 3.5 mmol/L 3.5-5.1 [facility] Work Phone: [phone] Protein [Mass/Vol] 6.6 g/dL 6.4-8.2 [facility] Work Phone: Sodium [Moles/Vol] 143 mmol/L 136-145 [facility] Work Phone: [phone] WBC (Bld) [#/Vol] 4.4 10*3/uL 4.4-11.0 [facility] Work Phone: Blood erythrocytes count (nu mber/volume)on 05-14-2021 RBC (Bld) [#/Vol] 3.79 10*6/uL 4.2-5.4 [facility] Work Phone: Blood hemoglobin measurement (mass/volume)on 05-14-2021 Hemoglobin (Bld) [Mass/Vol] 10.9 g/dL 12.0-15.0 [facility] Work Phone: Blood lymphocytes/100 leukoc yteson 05-14-2021 Lymphocytes/100 WBC (Bld) 19.0 % 19-41 [facility] Work Phone: Blood monocytes/100 leukocyt eson 05-14-2021 Monocytes/100 WBC (Bld) 8.1 % 0-10 [facility] Work Phone: Blood platelet mean volumeon 05-14-2021 Platelet mean volume (Bld) [Entitic vol] 10.2 fL 6.2-12.0 [facility] Work Phone: Determination of erythrocyte mean corpuscular volume (MCV)on 05-14-2021 MCV (RBC) [Entitic vol] 83.1 fL 81-99 [facility] Work Phone: Erythrocyte sedimentation ra vinicio 05-14-2021 ESR (Bld) [Velocity] 2 mm/h 0-30 [facility] Work Phone: Folate [Mass/Vol]on 05-14-19 22 Folate 11.50 ng/mL 3.1-55.4 [facility] Hematocrit Auto (Bld) [Volum e fraction]on 05-14-2021 Hematocrit (Bld) [Volume fraction] 31.5 % 37-47 [facility] Work Phone: Hemoglobin in reticulocytes (mass per reticulocyte)on 05-14-2021 Hemoglobin (Reticulocytes) [Entitic mass] 28.0 pg 30-35 [facility] INR in Blood by Coagulation assayon 05-14-2021 INR Coag (Bld) [Relative time] 1.1 {INR} [facility] Work Phone: Iron measurement (mass/mass) on 05-14-2021 Iron (Unsp spec) [Mass/Mass] 36 ug/dL 50-170 [facility] Work Phone: Laboratory - Chemistry and C hemistry - challengeon 05-14-2021 ALP [Catalytic activity/Vol] 78 U/L 45-117 [facility] Work Phone: ALT [Catalytic activity/Vol] 53 U/L 13-56 [facility] Work Phone: CO2 [Moles/Vol] 27.0 mmol/L 21.0-32.0 [facility] Work Phone: Cobalamin (Vitamin B12) [Mass/Vol] 447 pg/mL 211-911 [facility] Globulin (S) [Mass/Vol] 3.3 g/dL 2.2-4.2 [facility] Work Phone: Magnesium [Mass/Vol] 1.7 mg/dL 1.6-2.6 [facility] Urea nitrogen/Creatinine [Mass ratio] 18.7 mg/mg 10-20 [facility] Work Phone: Laboratory - Coagulationon 0 05-14-2021 aPTT Coag (Bld) [Time] 54.7 s 24.1-36.2 [facility] Work Phone: PT Coag (PPP) [Time] 13.2 s 11.7-14.9 [facility] Work Phone: Laboratory - Hematology and Cell countson 05-14-2021 Erythrocyte distribution width (RBC) [Entitic vol] 45.7 fL 35.1-43.9 [facility] Work Phone: Erythrocyte distribution width (RBC) [Ratio] 15.3 % 11.6-14.6 [facility] Work Phone: Immature granulocytes/100 WBC (Bld) 1.600 % 0.0-0.9 [facility] Work Phone: Comment on above: IG% - Immature Granu locytes (promyelocytes, myelocytes and metamyelocytes) > 1% indicates that a LEFT SHIFT is Present. MCH (RBC) [Entitic mass] 28.8 pg 27.0-32.0 [facility] Work Phone: Nucleated RBC/100 WBC (Bld) [Ratio] 0 % 0-5 [facility] Work Phone: MCHC Auto (RBC) [Mass/Vol]on 05-14-2021 MCHC (RBC) [Mass/Vol] 34.6 g/dL 32-36 [facility] Work Phone: No Panel Informationon 05-14 D-Dimer Quantitative (PE/DVT) 0.89 FEU/ug/m 0.27-0.49 [facility] Work Phone: Comment on above: D-Dimer ELEVATED (>0 .49): Additional studies and clinicalassessments are indicated to conclude diagnosis of:Deep Vein Thrombosis (DVT) or Pulmonary Embolism (PE)CRITICAL VALUE VERIFIED. CALLED TO APNAZHPHID67/23/22 1658 Savannah Santillan.RESULTS READ BACK BY SAME . Estimated GFR (MDRD) Amer 80 mL/min >60 [facility] Work Phone: Comment on above: GFR Calc Estimated GFR (MDRD) Non-Af Amer 66 mL/min >60 [facility] Work Phone: Comment on above: Non- GFR Calc Immature Reticulocyte Fraction 21.00 % 3.00-15.90 [facility] Reticulocyte Count 2.29 % 0.5-1.5 [facility] Total Iron Binding Capacity 330 ug/dL 250-450 [facility] Work Phone: Platelets bldon 05-14-2021 Platelets (Bld) [#/Vol] 107 10*3/uL 150-450 [facility] Work Phone: Serum or plasma albumin maria g urement (mass/volume)on 05-14-2021 Albumin [Mass/Vol] 3.3 g/dL 3.2-5.0 [facility] Work Phone: Serum or plasma albumin/glob ulin mass ratioon 05-14-2021 Albumin/Globulin [Mass ratio] 1.0 {ratio} 0.9-2.4 [facility] Work Phone: Serum or plasma calcium maria g urement (mass/volume)on 05-14-2021 Calcium [Mass/Vol] 8.1 mg/dL 8.5-10.1 [facility] Work Phone: Serum or plasma creatinine m easurement (mass/volume)on 05-14-2021 Creatinine [Mass/Vol] 0.96 mg/dL 0.55-1.02 [facility] Work Phone: Comment on above: The validity of the calculated GFR & GFRAA in patients over 70 years has not been determined. Clinical correlation is essential. Serum or plasma ferritin lo surement (mass/volume)on 05-14-2021 Ferritin [Mass/Vol] 53 ng/mL 8-252 [facility] Work Phone: Serum or plasma folate measu rement (mass/volume)on 05-14-2021 Folate [Mass/Vol] 11.50 ng/mL 3.1-55.4 [facility] Serum or plasma iron saturat ion measurement (mass fraction)on 05-14-2021 Iron saturation [Mass fraction] 10.9 % 15.0-55.0 [facility] Work Phone: Serum or plasma urea nitroge n measurement (mass/volume)on 05-14-2021 Urea nitrogen [Mass/Vol] 18 mg/dL 7-18 [facility] Work Phone: Thin prep Papanicolaou smear with manual screeningon 05-14-2021 Thin prep Papanicolaou smear with manual screening 24 U/L 15-37 [facility] Work Phone: Thin prep Papanicolaou smear with manual screening 4 5-15 [facility] Work Phone: Thin prep Papanicolaou smear with manual screening 212 U/L 84-246 [facility] Work Phone: Absolute lymphocyte counton 05-09-2021 Lymphocytes Auto (Unsp spec) [#/Vol] 0.27 10*3/uL 0.83-4.51 [facility] Work Phone: Basophil percentageon 2021 Basophils/100 WBC (Bld) 0.0 % 0-1 [facility] Work Phone: Chloride [Moles/Vol] 114 mmol/L 98-107 [facility] Work Phone: [phone] Eosinophils/100 WBC (Bld) 0.0 % 0-5 [facility] Work Phone: [phone] Glucose [Mass/Vol] 177 mg/dL 74-106 [facility] Work Phone: Comment on above: Fasting Glucose resu lt greater than or equal to 126 mg/dL suggests DIABETES MELLITUS per A.D.A. criteria. Neutrophils (Bld) [#/Vol] 2.4 10*3/uL 2.0-7.7 [facility] Work Phone: Neutrophils/100 WBC (Bld) 87.8 % 47-70 [facility] Work Phone: Potassium [Moles/Vol] 4.0 mmol/L 3.5-5.1 [facility] Work Phone: Sodium [Moles/Vol] 141 mmol/L 136-145 [facility] Work Phone: WBC (Bld) [#/Vol] 2.8 10*3/uL 4.4-11.0 [facility] Work Phone: Blood erythrocytes count (nu mber/volume)on 05-09-2021 RBC (Bld) [#/Vol] 3.77 10*6/uL 4.2-5.4 [facility] Work Phone: Blood hemoglobin measurement (mass/volume)on 05-09-2021 Hemoglobin (Bld) [Mass/Vol] 10.5 g/dL 12.0-15.0 [facility] Work Phone: Blood lymphocytes/100 leukoc yteson 05-09-2021 Lymphocytes/100 WBC (Bld) 9.7 % 19-41 [facility] Work Phone: [phone] Blood manual differential co mment interpretation (narrative result)on 05-09-2021 Manual differential comment Eleuterio (Bld) [Interp] SEE COMMENT [facility] Work Phone: [phone] Comment on above: LYMPHOPENIA NOTED Blood monocytes/100 leukocyt eson 05-09-2021 Monocytes/100 WBC (Bld) 1.8 % 0-10 [facility] Work Phone: Blood platelet adequacy dete ction by light microscopyon 05-09-2021 Platelets LM Ql (Bld) MOD DEC ADEQ [facility] Work Phone: Blood platelet mean volumeon 05-09-2021 Platelet mean volume (Bld) [Entitic vol] 10.2 fL 6.2-12.0 [facility] Work Phone: Determination of erythrocyte mean corpuscular volume (MCV)on 05-09-2021 MCV (RBC) [Entitic vol] 80.6 fL 81-99 [facility] Work Phone: Hematocrit Auto (Bld) [Volum e fraction]on 05-09-2021 Hematocrit (Bld) [Volume fraction] 30.4 % 37-47 [facility] Work Phone: Laboratory - Chemistry and C hemistry - challengeon 05-09-2021 CO2 [Moles/Vol] 20.0 mmol/L 21.0-32.0 [facility] Work Phone: Urea nitrogen/Creatinine [Mass ratio] 18.6 mg/mg 10-20 [facility] Work Phone: Laboratory - Hematology and Cell countson 05-09-2021 Anisocytosis Ql (Bld) RARE [facility] Work Phone: Erythrocyte distribution width (RBC) [Entitic vol] 41.1 fL 35.1-43.9 [facility] Work Phone: Erythrocyte distribution width (RBC) [Ratio] 14.3 % 11.6-14.6 [facility] Work Phone: Immature granulocytes/100 WBC (Bld) 0.700 % 0.0-0.9 [facility] Work Phone: Comment on above: IG% - Immature Granu locytes (promyelocytes, myelocytes and metamyelocytes) > 1% indicates that a LEFT SHIFT is Present. MCH (RBC) [Entitic mass] 27.9 pg 27.0-32.0 [facility] Work Phone: Nucleated RBC/100 WBC (Bld) [Ratio] 0 % 0-5 [facility] Work Phone: MCHC Auto (RBC) [Mass/Vol]on 05-09-2021 MCHC (RBC) [Mass/Vol] 34.5 g/dL 32-36 [facility] Work Phone: No Panel Informationon 05-09 Troponin I High Sensitivity 25 pg/mL 3.0-54.0 [facility] Work Phone: Comment on above: Please Note: New Janna t Units and Gender Specific Reference Ranges. For more information see Policy Stat Procedure [place] High Sensitivity Troponin (TNIH) and attachments. D-Dimer Quantitative (PE/DVT) 0.70 FEU/ug/m 0.27-0.49 [facility] Work Phone: Comment on above: D-Dimer ELEVATED (>0 .49): Additional studies and clinicalassessments are indicated to conclude diagnosis of:Deep Vein Thrombosis (DVT) or Pulmonary Embolism (PE)CRITICAL VALUE VERIFIED. CALLED TO CRISTINO BOUCHER05/09/218 Fabiano Priest.RESULTS READ BACK BY SAME. Estimated Creatinine Clearance Calc 60.45 ml/min [facility] Work Phone: Estimated GFR (MDRD) Amer 85 mL/min >60 [facility] Work Phone: Comment on above: GFR Calc Estimated GFR (MDRD) Non-Af Amer 70 mL/min >60 [facility] Work Phone: Comment on above: Non- GFR Calc SARS-CoV-2 Antigen (Rapid) [facility] Work Phone: Platelets bldon 05-09-2021 Platelets (Bld) [#/Vol] 93 10*3/uL 150-450 [facility] Work Phone: RBC morphologyon 05-09-2021 RBC morphology finding Nom (Bld) N CHROM NORMAL NORM C&C [facility] Work Phone: Review by pathologiston 04-22 Pathologist review Eleuterio (Unsp spec) [Interp] Reviewed [facility] Work Phone: Comment on above: Previous reported re sult: Nallely whiting Edited by: RGOOD on 05/12/21:1405Pancytopenia.Normocytic anemia.Leukopenia ThrombocytopeniaClinical correlation necessary.Chuck Sepulveda M.D. 05/12/21 AMENDED REPORT 05/12/21 1405 PATH REV previously reported as: July henok Serum or plasma calcium maria g urement (mass/volume)on 05-09-2021 Calcium [Mass/Vol] 7.9 mg/dL 8.5-10.1 [facility] Work Phone: Serum or plasma creatinine m easurement (mass/volume)on 05-09-2021 Creatinine [Mass/Vol] 0.91 mg/dL 0.55-1.02 [facility] Work Phone: Comment on above: The validity of the calculated GFR & GFRAA in patients over 70 years has not been determined. Clinical correlation is essential. Serum or plasma urea nitroge n measurement (mass/volume)on 05-09-2021 Urea nitrogen [Mass/Vol] 17 mg/dL 10-06 [facility] Work Phone: Thin prep Papanicolaou smear with manual screeningon 05-09-2021 Thin prep Papanicolaou smear with manual screening RARE [facility] Work Phone: Thin prep Papanicolaou smear with manual screening 7 5-15 [facility] Work Phone: Laboratory - Microbiology an d Antimicrobial susceptibilityon 03-25-2021 SARS-CoV-2 (COVID-19) RNA NATALY+probe Ql (Unsp spec) Not detected Not Detect [facility] Work Phone: Comment on above: Normal Reference Ran ge: Not DetectedMethod:(RT-PCR) real-time reverse transcriptase PCRLuminex PLC Diagnostics Instrument*The Food and Drug Administration (FDA) has issued an Emergency Use Authorization (EAU) for the MILTON SARS-CoV-2 Assay for the rapid detection of the virus that causes COVID-19. This test has been validated, but the FDAs independent review of this validation is pending.*Negative results do not preclude infection and should not be used as the sole basis for treatment or patient management. Optimum specimen types and timing for peak viral levels during infections caused by SARS-CoV-2 have not been determined. Collection of multiple specimens from the same patient may be necessary to detect the virus. The possibility of a false negative result should be considered if the patient has clinical presentation or has had recent exposure. Vital Signs Date Time Vital Sign Value Performing Clinician Facility 09-12-2024 15:31-0400 Body height 157.[address] Bhupinder Hamlin MD Work Phone: [phone] [place] [address] 09-12-2024 15:31-0400 Body mass index (BMI) [Ratio] 33.8 kg/m2 Dr. Bhupinder Hamlin MD Work Phone: 0(524)293-834351 [place] [address] 09-12-2024 15:31-0400 Body weight 83.[address] Bhupinder Hamlin MD Work Phone: [facility] 09-12-2024 15:31-0400 Diastolic blood pressure 68 mm[Hg] Dr. Bhupinder tapia MD Work Phone: [facility] 09-12-2024 15:31-0400 Heart rate 57 /min Dr. Bhupinder Hamlin MD Work Phone: [facility] 09-12-2024 15:31-0400 Respiratory rate 16 /min Dr. Bhupinder Hamlin MD Work Phone: [facility] 09-12-2024 15:31-0400 Systolic blood pressure 99 mm[Hg] Dr. Bhupinder richter MD Work Phone: [facility] 08-24-2024 15:00-0400 Body height 157.[address] Bhupinder Hamlin MD Work Phone: [facility] 08-24-2024 15:00-0400 Body mass index (BMI) [Ratio] 33.6 kg/m2 Dr. Bhupinder Hamlin MD Work Phone: [facility] 08-24-2024 15:00-0400 Body temperature 98 [degF] Dr. Bhupinder Hamlin MD Work Phone: [facility] 08-24-2024 15:00-0400 Body weight 83.[address] Bhupinder Hamlin MD Work Phone: [facility] 08-24-2024 15:00-0400 Diastolic blood pressure 58 mm[Hg] Dr. Bhupinder tapia MD Work Phone: [facility] 08-24-2024 15:00-0400 Heart rate 56 /min Dr. Bhupinder Hamlin MD Work Phone: [facility] 08-24-2024 15:00-0400 Respiratory rate 14 /min Dr. Bhupinder Hamlin MD Work Phone: [facility] 08-24-2024 15:00-0400 SaO2% (BldA) [Mass fraction] 97 % Dr. Bhupinder Hamlin MD Work Phone: [facility] 08-24-2024 15:00-0400 Systolic blood pressure 86 mm[Hg] Dr. Bhupinder richter MD Work Phone: [facility] 05-24-2024 10:32-0500 Body height 157.[address] Alex Harrell MD Work Phone: [facility] 05-24-2024 10:32-0500 Body mass index (BMI) [Ratio] 32.7 kg/m2 Dr. Alex Harrell MD Work Phone: [facility] 05-24-2024 10:32-0500 Body temperature 97.7 [degF] Dr. Alex Harrell MD Work Phone: [facility] 05-24-2024 10:32-0500 Body weight 81.[address] Alex Harrell MD Work Phone: [facility] 05-24-2024 10:32-0500 Diastolic blood pressure 60 mm[Hg] Dr. Alex Harrell MD Work Phone: [facility] 05-24-2024 10:32-0500 Heart rate 76 /min Dr. Alex Harrell MD Work Phone: 1(446)389-076934 [place] [address] 05-24-2024 10:32-0500 Respiratory rate 14 /min Dr. Alex Harrell MD Work Phone: 7(782)699-342479 [place] [address] 05-24-2024 10:32-0500 SaO2% (BldA) [Mass fraction] 97 % Dr. Alex Harrell MD Work Phone: 1(821)342-226734 [place] [address] 05-24-2024 10:32-0500 Systolic blood pressure 98 mm[Hg] Dr. Alex Harrell MD Work Phone: 2(291)869-136279 [place] [address] 05-11-2024 16:03-0500 Body mass index (BMI) [Ratio] 34.5 kg/m2 Dr. Alex Harrell MD Work Phone: 3(571)420-354479 [place] [address] 05-11-2024 16:03-0500 Body weight [address] Alex Harrell MD Work Phone: 1(829)557-126679 [place] [address] 05-11-2024 16:03-0500 Diastolic blood pressure 62 mm[Hg] Dr. Alex Harrell MD Work Phone: 3(411)941-736179 [place] [address] 05-11-2024 16:03-0500 Heart rate 65 /min Dr. Alex Harrell MD Work Phone: 0(337)049-681034 [place] [address] 05-11-2024 16:03-0500 Respiratory rate 16 /min Dr. Alex Harrell MD Work Phone: 9(391)559-539334 [place] [address] 05-11-2024 16:03-0500 Systolic blood pressure 107 mm[Hg] Dr. Alex Harrell MD Work Phone: 4(198)286-668334 [place] [address] 03-24-2024 11:45-0500 Body weight 78.[address] Alex Harrell MD Work Phone: 1(545)180-466534 [place] [address] 02-24-2024 14:04-0500 Body mass index (BMI) [Ratio] 32.2 kg/m2 Dr. Alex Harrell MD Work Phone: [facility] 02-24-2024 14:04-0500 Body temperature 98.2 [degF] Dr. Alex Harrell MD Work Phone: [facility] 02-24-2024 14:04-0500 Body weight 77.[address] Alex Harrell MD Work Phone: [facility] 02-24-2024 14:04-0500 Diastolic blood pressure 64 mm[Hg] Dr. Alex Harrell MD Work Phone: [facility] 02-24-2024 14:04-0500 Heart rate 69 /min Dr. Alex Harrell MD Work Phone: [facility] 02-24-2024 14:04-0500 Respiratory rate 18 /min Dr. Alex Harrell MD Work Phone: [facility] 02-24-2024 14:04-0500 SaO2% (BldA) [Mass fraction] 99 % Dr. Alex Harrell MD Work Phone: [facility] 02-24-2024 14:04-0500 Systolic blood pressure 93 mm[Hg] Dr. Alex Harrell MD Work Phone: [facility] 02-23-2024 11:15-0500 Body weight 77.[address] Alex Harrell MD Work Phone: [facility] 01-21-2024 11:00-0400 Body height 154.9 cm Alli James APRN.ARTIFICIAL INSEMINATION TECHNICIAN Work Phone: [facility] 01-21-2024 11:00-0400 Body mass index (BMI) [Ratio] 31.35 kg/m2 Andemani James APRN.ARTIFICIAL INSEMINATION TECHNICIAN Work Phone: [facility] 01-21-2024 11:00-0400 Body temperature 97.59 [degF] Alli James APRN.ARTIFICIAL INSEMINATION TECHNICIAN Work Phone: [facility] 01-21-2024 11:00-0400 Body weight 75.25 kg Andegoni Sandalakis BRADDER.ARTIFICIAL INSEMINATION TECHNICIAN Work Phone: [facility] 01-21-2024 11:00-0400 Diastolic blood pressure 69 mm[Hg] Andegoni Sandalakis BRADDER.ARTIFICIAL INSEMINATION TECHNICIAN Work Phone: [facility] 01-21-2024 11:00-0400 Heart rate 76 /min Andegoni Sandalakis BRADDER.ARTIFICIAL INSEMINATION TECHNICIAN Work Phone: [facility] 01-21-2024 11:00-0400 SaO2% (BldA) [Mass fraction] 100 % Andegoni Sandalakis BRADDER.ARTIFICIAL INSEMINATION TECHNICIAN Work Phone: [facility] 01-21-2024 11:00-0400 Systolic blood pressure 111 mm[Hg] Andegoni Sandalakis BRADDER.ARTIFICIAL INSEMINATION TECHNICIAN Work Phone: [facility] 01-14-2024 09:21-0400 Body mass index (BMI) [Ratio] 30.54 kg/m2 Kori Bang MD Work Phone: [facility] 01-14-2024 09:21-0400 Body temperature 97.7 [degF] Kori Bang MD Work Phone: [facility] 01-14-2024 09:21-0400 Body weight 75.75 kg Kori Bang MD Work Phone: [facility] 01-14-2024 09:21-0400 Diastolic blood pressure 73 mm[Hg] Kori lauren MD Work Phone: [facility] 01-14-2024 09:21-0400 Heart rate 95 /min Kori Bang MD Work Phone: [facility] 01-14-2024 09:21-0400 SaO2% (BldA) [Mass fraction] 99 % Kori Bang MD Work Phone: [facility] 01-14-2024 09:21-0400 Systolic blood pressure 112 mm[Hg] Kori vital MD Work Phone: [facility] 12-21-2023 08:32-0400 Body height 154.9 cm Andegoni Sandalakis BRADDER.ARTIFICIAL INSEMINATION TECHNICIAN Work Phone: [facility] 12-21-2023 08:32-0400 Body mass index (BMI) [Ratio] 32.69 kg/m2 Andegoni Sandalakis BRADDER.ARTIFICIAL INSEMINATION TECHNICIAN Work Phone: [facility] 12-21-2023 08:32-0400 Body temperature 98.2 [degF] Andegoni Sandalakis BRADDER.ARTIFICIAL INSEMINATION TECHNICIAN Work Phone: [facility] 12-21-2023 08:32-0400 Body weight 78.47 kg Andegoni Sandalakis BRADDER.ARTIFICIAL INSEMINATION TECHNICIAN Work Phone: [facility] 12-21-2023 08:32-0400 Diastolic blood pressure 86 mm[Hg] Andegoni Sandalakis BRADDER.ARTIFICIAL INSEMINATION TECHNICIAN Work Phone: [facility] 12-21-2023 08:32-0400 Heart rate 64 /min Andegoni Sandalakis BRADDER.ARTIFICIAL INSEMINATION TECHNICIAN Work Phone: [facility] 12-21-2023 08:32-0400 SaO2% (BldA) [Mass fraction] 99 % Andegoni Sandalakis BRADDER.ARTIFICIAL INSEMINATION TECHNICIAN Work Phone: [facility] 12-21-2023 08:32-0400 Systolic blood pressure 132 mm[Hg] Andegoni Sandalakis BRADDER.ARTIFICIAL INSEMINATION TECHNICIAN Work Phone: [facility] 12-02-2023 14:53-0400 Body height 154.9 cm Andegoni Sandalakis BRADDER.ARTIFICIAL INSEMINATION TECHNICIAN Work Phone: [facility] 12-02-2023 14:53-0400 Body mass index (BMI) [Ratio] 32.91 kg/m2 Andegoni Sandalakis BRADDER.ARTIFICIAL INSEMINATION TECHNICIAN Work Phone: [facility] 12-02-2023 14:53-0400 Body temperature 98.1 [degF] Andegoni Sandalakis BRADDER.ARTIFICIAL INSEMINATION TECHNICIAN Work Phone: [facility] 12-02-2023 14:53-0400 Body weight 79.02 kg Andegoni Sandalakis BRADDER.ARTIFICIAL INSEMINATION TECHNICIAN Work Phone: [facility] 12-02-2023 14:53-0400 Diastolic blood pressure 64 mm[Hg] Andegoni Sandalakis BRADDER.ARTIFICIAL INSEMINATION TECHNICIAN Work Phone: [facility] 12-02-2023 14:53-0400 Heart rate 62 /min Andegoni Sandalakis BRADDER.ARTIFICIAL INSEMINATION TECHNICIAN Work Phone: [facility] 12-02-2023 14:53-0400 SaO2% (BldA) [Mass fraction] 99 % Andegoni Sandalakis BRADDER.ARTIFICIAL INSEMINATION TECHNICIAN Work Phone: [facility] 12-02-2023 14:53-0400 Systolic blood pressure 94 mm[Hg] Andegoni Sandalakis BRADDER.ARTIFICIAL INSEMINATION TECHNICIAN Work Phone: [facility] 11-07-2023 07:25-0400 SaO2% (BldA) [Mass fraction] 98 % BHUPINDER HAMLIN [facility] Comment on above: Order Comment: Specimen Type: ARTERIAL B LOOD SPECIMENOrdering Facility: [facility] Address: [address] [place] [address] Performed By: #### A LLBG ####[facility]IA [id number] [address] OF [facility] 11-07-2023 03:27-0400 SaO2% (BldA) [Mass fraction] 98 % BHUPINDER HAMLIN [facility] Comment on above: Order Comment: Specimen Type: ARTERIAL B LOOD SPECIMENOrdering Facility: [facility] Address: [address] [place] [address] Performed By: #### A LLBG ####[facility] [id number] [address] [place] OF [facility] 11-06-2023 23:52-0400 SaO2% (BldA) [Mass fraction] 99 % BHUPINDER HAMLIN [facility] Comment on above: Order Comment: Specimen Type: ARTERIAL B LOOD SPECIMENOrdering Facility: [facility] Address: [address] [place], [place] [id number] Performed By: #### A LLBG ####[facility] [id number] [address] [address] [place] 11-06-2023 19:30-0400 SaO2% (BldA) [Mass fraction] 100 % BHUPINDER HAMLIN [facility] Comment on above: Order Comment: Specimen Type: ARTERIAL B LOOD SPECIMENOrdering Facility: [facility] Address: [address] [place], [place] [id number] Performed By: #### A LLBG ####[facility] [id number] [place] [id number] [facility] OF [facility] 11-06-2023 16:00-0400 SaO2% (BldA) [Mass fraction] 97 % BHUPINDER HAMLIN [facility] Comment on above: Order Comment: Specimen Type: ARTERIAL B LOOD SPECIMENOrdering Facility: [facility] Address: [address] [place], [place] [id number] Performed By: #### A LLBG ####[facility] LABIA [id number] [address] [address] [place] 11-06-2023 11:29-0400 SaO2% (BldA) [Mass fraction] 97 % BHUPINDER HAMLIN [facility] Comment on above: Order Comment: Specimen Type: ARTERIAL B LOOD SPECIMENOrdering Facility: [facility] Address: [address] [place], [place] [id number] Performed By: #### A LLBG ####[facility] LABIA [id number] [address] [address] [place] 11-06-2023 07:52-0400 SaO2% (BldA) [Mass fraction] 99 % BHUPINDER HAMLIN [facility] Comment on above: Order Comment: Specimen Type: ARTERIAL B LOOD SPECIMENOrdering Facility: [facility] Address: [address] [place], [place] [id number] Performed By: #### A LLBG ####[facility] LABCLIA [id number] [address] [address] [facility] 11-06-2023 05:32-0400 SaO2% (BldA) [Mass fraction] 99 % BHUPINDER HAMLIN [facility] Comment on above: Order Comment: Specimen Type: ARTERIAL B LOOD SPECIMENOrdering Facility: [facility] Address: [address] [place], [place] [id number] Performed By: #### A LLBG ####[facility] LABIA [id number] [place] [id number] [place] 11-06-2023 03:50-0400 SaO2% (BldA) [Mass fraction] 99 % BHUPINDER HAMLIN [facility] Comment on above: Order Comment: Specimen Type: ARTERIAL B LOOD SPECIMENOrdering Facility: [facility] Address: [address] [place], [place] [id number] Performed By: #### A LLBG ####[facility] LABCLIA [id number] [address] [address] [place] 11-06-2023 00:50-0400 SaO2% (BldA) [Mass fraction] 99 % BHUPINDER HAMLIN [facility] Comment on above: Order Comment: Specimen Type: ARTERIAL B LOOD SPECIMENOrdering Facility: [facility] Address: [address] [place], [place] [id number] Performed By: #### A LLBG ####[facility] LABCLIA [id number] [address] [address] [place] 11-05-2023 23:25-0400 SaO2% (BldA) [Mass fraction] 99 % BHUPINDER HAMLIN [facility] Comment on above: Order Comment: Specimen Type: ARTERIAL B LOOD SPECIMENOrdering Facility: [facility] Address: [address] [place], [place] [address] Performed By: #### A LLBG ####[facility] LABCLIA [id number] [address] [address] [place] 11-05-2023 21:27-0400 SaO2% (BldA) [Mass fraction] 100 % BHUPINDER HAMLIN [facility] Comment on above: Order Comment: Specimen Type: ARTERIAL B LOOD SPECIMENOrdering Facility: [facility] Address: [address] [place], [place] [address] Performed By: #### A LLBG ####[facility] LABCLIA [id number] [place] [id number] [place] 11-05-2023 19:26-0400 SaO2% (BldA) [Mass fraction] 99 % BHUPINDER HAMLIN [facility] Comment on above: Order Comment: Specimen Type: ARTERIAL B LOOD SPECIMENOrdering Facility: [facility] Address: [address] [place], [place] [address] Performed By: #### A LLBG ####[facility] LABCLIA [id number] [address] [address] [place] 11-05-2023 17:34-0400 SaO2% (BldA) [Mass fraction] 99 % BHUPINDER HAMLIN [facility] Comment on above: Order Comment: Specimen Type: ARTERIAL B LOOD SPECIMENOrdering Facility: [facility] Address: [address] [place], [place] [id number] Performed By: #### A LLBG ####[facility] LABCLIA [id number] [address] [address] [place] 11-05-2023 15:46-0400 SaO2% (BldA) [Mass fraction] 99 % BHUPINDER HAMLIN [facility] Comment on above: Order Comment: Specimen Type: ARTERIAL B LOOD SPECIMENOrdering Facility: [facility] Address: [address] [place], [place] [address] Performed By: #### A LLBG ####[facility] LABIA [id number] [address] [address] [place] 11-05-2023 13:37-0400 SaO2% (BldA) [Mass fraction] 99 % BHUPINDER HAMLIN [facility] Comment on above: Order Comment: Specimen Type: ARTERIAL B LOOD SPECIMENOrdering Facility: [facility] Address: [address] [place], [place] [address] Performed By: #### A LLBG ####[facility] [id number] [place] [id number] [place] 11-05-2023 11:31-0400 SaO2% (BldA) [Mass fraction] 99 % BHUPINDER HAMLIN [facility] Comment on above: Order Comment: Specimen Type: ARTERIAL B LOOD SPECIMENOrdering Facility: [facility] Address: [address] [place], [place] [address] Performed By: #### A LLBG ####[facility] [id number] [place] [id number] [place] 11-05-2023 09:29-0400 SaO2% (BldA) [Mass fraction] 100 % BHUPINDER HAMLIN [facility] Comment on above: Order Comment: Specimen Type: ARTERIAL B LOOD SPECIMENOrdering Facility: [facility] Address: [address] [place], [place] [address] Performed By: #### A LLBG ####[facility] LABIA [id number] [address] [address] [place] 11-05-2023 08:49-0400 SaO2% (BldA) [Mass fraction] 100 % BHUPINDER HAMLIN [facility] Comment on above: Order Comment: Specimen Type: ARTERIAL B LOOD SPECIMENOrdering Facility: [facility] Address: [address] [place], [place] [address] Performed By: #### A LLBG ####[facility] LABCLIA [id number] [address] [address] [facility] 11-05-2023 07:14-0400 SaO2% (BldA) [Mass fraction] 99 % BHUPINDER HAMLIN [facility] Comment on above: Order Comment: Specimen Type: ARTERIAL B LOOD SPECIMENOrdering Facility: [facility] Address: [address] [place] [place] [id number] Performed By: #### A LLBG ####[facility] LABCLIA [id number] [address] [address] [facility] 11-03-2023 08:28-0400 Diastolic blood pressure 81 mm[Hg] Talha Michaud Work Phone: [facility] 11-03-2023 08:28-0400 Systolic blood pressure 115 mm[Hg] Talha oLza MD Work Phone: [facility] 11-03-2023 08:26-0400 Body height 154.9 cm Talha Loza MD Work Phone: [facility] 11-03-2023 08:26-0400 Body mass index (BMI) [Ratio] 32.31 kg/m2 Talha Loza MD Work Phone: [facility] 11-03-2023 08:26-0400 Body weight 77.56 kg Talha Loza MD Work Phone: [facility] 11-03-2023 08:26-0400 Heart rate 81 /min Talha Loza MD Work Phone: [facility] 11-03-2023 08:26-0400 SaO2% (BldA) [Mass fraction] 98 % Talha Loza MD Work Phone: [facility] 06-29-2023 13:09-0400 Body height 154.[address] Bhupinder Hamlin Work Phone: [facility] 06-29-2023 13:09-0400 Body mass index (BMI) [Ratio] 35.9 kg/m2 Dr. Bhupinder Hamlin Work Phone: [facility] 06-29-2023 13:09-0400 Body temperature 97.8 [degF] Dr. Bhupinder Hamlin Work Phone: [facility] 06-29-2023 13:09-0400 Body weight 86.[address] Bhupinder Hamlin Work Phone: [facility] 06-29-2023 13:09-0400 Diastolic blood pressure 78 mm[Hg] Dr. Bhupinder tapia Work Phone: [facility] 06-29-2023 13:09-0400 Heart rate 86 /min Dr. Bhupinder Hamlin Work Phone: [facility] 06-29-2023 13:09-0400 Respiratory rate 16 /min Dr. Bhupinder Hamlin Work Phone: [facility] 06-29-2023 13:09-0400 SaO2% (BldA) [Mass fraction] 95 % Dr. Bhupinder Hamlin Work Phone: [facility] 06-29-2023 13:09-0400 Systolic blood pressure 112 mm[Hg] Dr. Bhupinder richter Work Phone: [facility] 06-23-2023 11:26-0400 Body temperature 97.8 [degF] Dr. Bhupinder Hamlin Work Phone: [facility] 06-23-2023 11:26-0400 Body weight 86.[address] Bhupinder Hamlin Work Phone: [facility] 06-23-2023 11:26-0400 Diastolic blood pressure 89 mm[Hg] Dr. Bhupinder tapia Work Phone: [facility] 06-23-2023 11:26-0400 Heart rate 98 /min Dr. Bhupinder Hamlin Work Phone: [facility] 06-23-2023 11:26-0400 Respiratory rate 14 /min Dr. Bhupinder Hamlin Work Phone: [facility] 06-23-2023 11:26-0400 SaO2% (BldA) [Mass fraction] 99 % Dr. Bhupinder Hamlin Work Phone: [facility] 06-23-2023 11:26-0400 Systolic blood pressure 124 mm[Hg] Dr. Bhupinder richter Work Phone: [facility] 05-27-2023 13:31-0500 Body height 154.[address] Bhupinder Hamlin Work Phone: [facility] 05-27-2023 13:31-0500 Body mass index (BMI) [Ratio] 36.8 kg/m2 Dr. Bhupinder Hamlin Work Phone: [facility] 05-27-2023 13:31-0500 Body temperature 97.8 [degF] Dr. Bhupinder Hamlin Work Phone: [facility] 05-27-2023 13:31-0500 Body weight 88.[address] Bhupinder Hamlin Work Phone: [facility] 05-27-2023 13:31-0500 Diastolic blood pressure 98 mm[Hg] Dr. Bhupinder tapia Work Phone: [facility] 05-27-2023 13:31-0500 Heart rate 96 /min Dr. Bhupinder Hamlin Work Phone: [facility] 05-27-2023 13:31-0500 Respiratory rate 17 /min Dr. Bhupinder Hamlin Work Phone: [facility] 05-27-2023 13:31-0500 SaO2% (BldA) [Mass fraction] 97 % Dr. Bhupinder Hamlin Work Phone: [facility] 05-27-2023 13:31-0500 Systolic blood pressure 116 mm[Hg] Dr. Bhupinder richter Work Phone: [facility] 05-26-2023 14:51-0500 Body mass index (BMI) [Ratio] 36.9 kg/m2 Dr. Bhupinder Hamlin Work Phone: [facility] 05-26-2023 14:51-0500 Body temperature 97.4 [degF] Dr. Bhupinder Hamlin Work Phone: [facility] 05-26-2023 14:51-0500 Body weight 88.[address] Bhupinder Hamlin Work Phone: [facility] 05-26-2023 14:51-0500 Diastolic blood pressure 75 mm[Hg] Dr. Bhupinder tapia Work Phone: [facility] 05-26-2023 14:51-0500 Heart rate 73 /min Dr. Bhupinder Hamlin Work Phone: [facility] 05-26-2023 14:51-0500 Respiratory rate 18 /min Dr. Bhupinder Hamlin Work Phone: [facility] 05-26-2023 14:51-0500 SaO2% (BldA) [Mass fraction] 98 % Dr. Bhupinder Hamlin Work Phone: [facility] 05-26-2023 14:51-0500 Systolic blood pressure 110 mm[Hg] Dr. Bhupinder richter Work Phone: [facility] 04-26-2023 13:30-0500 Body temperature 97.8 [degF] Dr. Bhupinder Hamlin Work Phone: [facility] 04-26-2023 13:30-0500 Body weight 89.[address] Bhupinder Hamlin Work Phone: [facility] 04-26-2023 13:30-0500 Diastolic blood pressure 80 mm[Hg] Dr. Bhupinder Washburn er Work Phone: [facility] 04-26-2023 13:30-0500 Heart rate 82 /min Dr. Bhupinder Hamlin Work Phone: [facility] 04-26-2023 13:30-0500 Respiratory rate 14 /min Dr. Bhupinder Hamlin Work Phone: [facility] 04-26-2023 13:30-0500 SaO2% (BldA) [Mass fraction] 96 % Dr. Bhupinder Hamlin Work Phone: [facility] 04-26-2023 13:30-0500 Systolic blood pressure 119 mm[Hg] Dr. Bhupinder richter Work Phone: [facility] 03-25-2023 13:36-0500 Body temperature 97.7 [degF] Dr. Bhupinder Hamlin Work Phone: [facility] 03-25-2023 13:36-0500 Body weight 89.[address] Bhupinder Hamlin Work Phone: [facility] 03-25-2023 13:36-0500 Diastolic blood pressure 75 mm[Hg] Dr. Bhupinder tapia Work Phone: [facility] 03-25-2023 13:36-0500 Heart rate 86 /min Dr. Bhupinder Hamlin Work Phone: [facility] 03-25-2023 13:36-0500 Respiratory rate 14 /min Dr. Bhupinder Hamlin Work Phone: [facility] 03-25-2023 13:36-0500 SaO2% (BldA) [Mass fraction] 98 % Dr. Bhupinder Hamlin Work Phone: [facility] 03-25-2023 13:36-0500 Systolic blood pressure 105 mm[Hg] Dr. Bhupinder richter Work Phone: [facility] 02-22-2023 13:16-0500 Body temperature 97.8 [degF] Dr. Bhupinder Hamlin Work Phone: [facility] 02-22-2023 13:16-0500 Body weight 90.[address] Bhupinder Hamlin Work Phone: [facility] 02-22-2023 13:16-0500 Diastolic blood pressure 80 mm[Hg] Dr. Bhupinder tapia Work Phone: [facility] 02-22-2023 13:16-0500 Heart rate 82 /min Dr. Bhupinder Hamlin Work Phone: [facility] 02-22-2023 13:16-0500 Respiratory rate 16 /min Dr. Bhupinder Hamlin Work Phone: [facility] 02-22-2023 13:16-0500 SaO2% (BldA) [Mass fraction] 96 % Dr. Bhupinder Hamlin Work Phone: [facility] 02-22-2023 13:16-0500 Systolic blood pressure 100 mm[Hg] Dr. Bhupinder richter Work Phone: [facility] 02-03-2023 13:54-0500 Body height 154.[address] Bhupinder Hamlin Work Phone: [facility] 02-03-2023 13:54-0500 Body mass index (BMI) [Ratio] 37.7 kg/m2 Dr. Bhupinder Hamlin Work Phone: [facility] 02-03-2023 13:54-0500 Body temperature 98.2 [degF] Dr. Bhupinder Hamlin Work Phone: [facility] 02-03-2023 13:54-0500 Body weight 90.[address] Bhupinder Hamlin Work Phone: [facility] 02-03-2023 13:54-0500 Diastolic blood pressure 82 mm[Hg] Dr. Bhupinder tapia Work Phone: [facility] 02-03-2023 13:54-0500 Heart rate 77 /min Dr. Bhupinder Hamlin Work Phone: [facility] 02-03-2023 13:54-0500 Respiratory rate 18 /min Dr. Bhupinder Hamlin Work Phone: [facility] 02-03-2023 13:54-0500 SaO2% (BldA) [Mass fraction] 97 % Dr. Bhupinder Hamlin Work Phone: [facility] 02-03-2023 13:54-0500 Systolic blood pressure 121 mm[Hg] Dr. Bhupinder richter Work Phone: [facility] 01-19-2023 14:18-0400 Body mass index (BMI) [Ratio] 38.4 kg/m2 Dr. Bhupinder Hamlin Work Phone: [facility] 01-19-2023 14:18-0400 Body temperature 97.8 [degF] Dr. Bhupinder Hamlin Work Phone: [facility] 01-19-2023 14:18-0400 Body weight 92.[address] Bhupinder Hamlin Work Phone: [facility] 01-19-2023 14:18-0400 Diastolic blood pressure 78 mm[Hg] Dr. Bhupinder tapia Work Phone: [phone])[phone] [place] [address] 01-19-2023 14:18-0400 Heart rate 85 /min Dr. Bhupinder Hamlin Work Phone: [facility] 01-19-2023 14:18-0400 Respiratory rate 16 /min Dr. Bhupinder Hamlin Work Phone: [facility] 01-19-2023 14:18-0400 SaO2% (BldA) [Mass fraction] 98 % Dr. Bhupinder Hamlin Work Phone: [facility] 01-19-2023 14:18-0400 Systolic blood pressure 115 mm[Hg] Dr. Bhupinder richter Work Phone: [facility] 12-17-2022 09:10-0400 Body height 154.[address] Bhupinder Hamlin Work Phone: [facility] 12-17-2022 09:10-0400 Body mass index (BMI) [Ratio] 37.4 kg/m2 Dr. Bhupinder Hamlin Work Phone: [facility] 12-17-2022 09:10-0400 Body temperature 97.7 [degF] Dr. Bhupinder Hamlin Work Phone: [facility] 12-17-2022 09:10-0400 Body weight 89.[address] Bhupinder Hamlin Work Phone: [facility] 12-17-2022 09:10-0400 Diastolic blood pressure 90 mm[Hg] Dr. Bhupinder tapia Work Phone: [facility] 12-17-2022 09:10-0400 Heart rate 82 /min Dr. Bhupinder Hamlin Work Phone: [facility] 12-17-2022 09:10-0400 Respiratory rate 17 /min Dr. Bhupinder Hamlin Work Phone: [facility] 12-17-2022 09:10-0400 SaO2% (BldA) [Mass fraction] 98 % Dr. Bhupinder Hamlin Work Phone: [facility] 12-17-2022 09:10-0400 Systolic blood pressure 120 mm[Hg] Dr. Bhupinder richter Work Phone: [facility] 12-09-2022 15:03-0400 Body weight 92.[address] Bhupinder Hamlin Work Phone: [facility] 11-16-2022 15:30-0400 Body height 154.[address] Bhupinder Hamlin Work Phone: [facility] 11-16-2022 15:30-0400 Body weight 91.[address] Bhupinder Hamlin Work Phone: [facility] 11-04-2022 10:51-0400 Body weight 90.[address] Bhupinder Hamlin Work Phone: [facility] 10-26-2022 14:05-0400 Body height 157.[address] Bhupinder Hamlin Work Phone: [facility] 10-26-2022 14:05-0400 Body mass index (BMI) [Ratio] 36.9 kg/m2 Dr. Bhupinder Hamlin Work Phone: [facility] 10-26-2022 14:05-0400 Body temperature 98.3 [degF] Dr. Bhupinder Hamlin Work Phone: [facility] 10-26-2022 14:05-0400 Body weight 91.[address] Bhupinder Hamlin Work Phone: [facility] 10-26-2022 14:05-0400 Diastolic blood pressure 70 mm[Hg] Dr. Bhupinder tapia Work Phone: [facility] 10-26-2022 14:05-0400 Heart rate 70 /min Dr. Bhupinder Hamlin Work Phone: [facility] 10-26-2022 14:05-0400 Respiratory rate 16 /min Dr. Bhupinder Hamlin Work Phone: [facility] 10-26-2022 14:05-0400 SaO2% (BldA) [Mass fraction] 98 % Dr. Bhupinder Hamlin Work Phone: [facility] 10-26-2022 14:05-0400 Systolic blood pressure 116 mm[Hg] Dr. Bhupinder richter Work Phone: [facility] 10-19-2022 14:34-0400 Body height 157.[address] Bhupinder Hamlin Work Phone: [facility] 10-19-2022 14:34-0400 Body mass index (BMI) [Ratio] 36.7 kg/m2 Dr. Bhupinder Hamlin Work Phone: [facility] 10-19-2022 14:34-0400 Body temperature 97.9 [degF] Dr. Bhupinder Hamlin Work Phone: [facility] 10-19-2022 14:34-0400 Body weight 91.[address] Bhupinder Hamlin Work Phone: [facility] 10-19-2022 14:34-0400 Diastolic blood pressure 68 mm[Hg] Dr. Bhupinder tapia Work Phone: [facility] 10-19-2022 14:34-0400 Heart rate 81 /min Dr. Bhupinder Hamlin Work Phone: [facility] 10-19-2022 14:34-0400 Respiratory rate 16 /min Dr. Bhupinder Hamlin Work Phone: [facility] 10-19-2022 14:34-0400 SaO2% (BldA) [Mass fraction] 98 % Dr. Bhupinder Hamlin Work Phone: [facility] 10-19-2022 14:34-0400 Systolic blood pressure 106 mm[Hg] Dr. Bhupinder richter Work Phone: [facility] 08-20-2022 09:17-0400 Body mass index (BMI) [Ratio] 36.3 kg/m2 Dr. Bhupinder Hamlin Work Phone: [phone])[phone] [place] [address] 08-20-2022 09:17-0400 Body temperature 98 [degF] Dr. Bhupinder Hamlin Work Phone: [facility] 08-20-2022 09:17-0400 Body weight 90.[address] Bhupinder Hamlin Work Phone: [facility] 08-20-2022 09:17-0400 Diastolic blood pressure 80 mm[Hg] Dr. Bhupinder tapia Work Phone: [facility] 08-20-2022 09:17-0400 Heart rate 89 /min Dr. Bhupinder Hamlin Work Phone: [facility] 08-20-2022 09:17-0400 Respiratory rate 17 /min Dr. Bhupinder Hamlin Work Phone: [facility] 08-20-2022 09:17-0400 SaO2% (BldA) [Mass fraction] 98 % Dr. Bhupinder Hamlin Work Phone: [facility] 08-20-2022 09:17-0400 Systolic blood pressure 116 mm[Hg] Dr. Bhupinder richter Work Phone: [facility] 07-29-2022 11:21-0400 Body mass index (BMI) [Ratio] 36.5 kg/m2 Dr. Bhupinder Hamlin Work Phone: [facility] 07-29-2022 11:21-0400 Body temperature 97.9 [degF] Dr. Bhupinder Hamlin Work Phone: [facility] 07-29-2022 11:21-0400 Body weight 90.[address] Bhupinder Hamlin Work Phone: [facility] 07-29-2022 11:21-0400 Diastolic blood pressure 75 mm[Hg] Dr. Bhupinder tapia Work Phone: [facility] 07-29-2022 11:21-0400 Heart rate 74 /min Dr. Bhupinder Hamlin Work Phone: [facility] 07-29-2022 11:21-0400 Respiratory rate 16 /min Dr. Bhupinder Hamlin Work Phone: [facility] 07-29-2022 11:21-0400 SaO2% (BldA) [Mass fraction] 97 % Dr. Bhupinder Hamlin Work Phone: [facility] 07-29-2022 11:21-0400 Systolic blood pressure 108 mm[Hg] Dr. Bhupinder richter Work Phone: [facility] 07-23-2022 08:24-0400 Body mass index (BMI) [Ratio] 36.3 kg/m2 Dr. Bhupinder Hamlin Work Phone: [facility] 07-23-2022 08:24-0400 Body temperature 97.8 [degF] Dr. Bhupinder Hamlin Work Phone: [facility] 07-23-2022 08:24-0400 Body weight 90.[address] Bhupinder Hamlin Work Phone: [facility] 07-23-2022 08:24-0400 Diastolic blood pressure 80 mm[Hg] Dr. Bhupinder tapia Work Phone: [facility] 07-23-2022 08:24-0400 Heart rate 85 /min Dr. Bhupinder Hamlin Work Phone: [facility] 07-23-2022 08:24-0400 Respiratory rate 17 /min Dr. Bhupinder Hamlin Work Phone: [facility] 07-23-2022 08:24-0400 SaO2% (BldA) [Mass fraction] 98 % Dr. Bhupinder Hamlin Work Phone: [facility] 07-23-2022 08:24-0400 Systolic blood pressure 116 mm[Hg] Dr. Bhupinder Scott r Work Phone: [facility] 06-25-2022 12:40-0400 Diastolic blood pressure 78 mm[Hg] Dr. Bhupinder Washburn er Work Phone: [facility] 06-25-2022 12:40-0400 Heart rate 74 /min Dr. Bhupinder Hamlin Work Phone: [facility] 06-25-2022 12:40-0400 Systolic blood pressure 114 mm[Hg] Dr. Bhupinder richter Work Phone: [facility] 06-25-2022 10:21-0400 Body height 157.[address] Bhupinder Hamlin Work Phone: [facility] 06-25-2022 10:21-0400 Body mass index (BMI) [Ratio] 35.6 kg/m2 Dr. Bhupinder Hamlin Work Phone: [facility] 06-25-2022 10:21-0400 Body temperature 96.2 [degF] Dr. Bhupinder Hamlin Work Phone: [facility] 06-25-2022 10:21-0400 Body weight 88.[address] Bhupinder Hamlin Work Phone: [facility] 06-25-2022 10:21-0400 Respiratory rate 16 /min Dr. Bhupinder Hamlin Work Phone: [facility] 06-25-2022 10:21-0400 SaO2% (BldA) [Mass fraction] 99 % Dr. Bhupinder Hamlin Work Phone: [facility] 06-18-2022 15:36-0400 Body height 157.[address] Bhupinder Hamlin Work Phone: [facility] 06-18-2022 15:36-0400 Body mass index (BMI) [Ratio] 36.2 kg/m2 Dr. Bhupinder Hamlin Work Phone: [facility] 06-18-2022 15:36-0400 Body temperature 98 [degF] Dr. Bhupinder Hamlin Work Phone: [facility] 06-18-2022 15:36-0400 Body weight 89.[address] Bhupinder Hamlin Work Phone: [facility] 06-18-2022 15:36-0400 Diastolic blood pressure 78 mm[Hg] Dr. Bhupinder tapia Work Phone: [facility] 06-18-2022 15:36-0400 Heart rate 91 /min Dr. Bhupinder Hamlin Work Phone: [facility] 06-18-2022 15:36-0400 Respiratory rate 17 /min Dr. Bhupinder Hamlin Work Phone: [facility] 06-18-2022 15:36-0400 SaO2% (BldA) [Mass fraction] 97 % Dr. Bhupinder Hamlin Work Phone: [facility] 06-18-2022 15:36-0400 Systolic blood pressure 120 mm[Hg] Dr. Bhupinder richter Work Phone: [facility] 06-17-2022 12:15-0400 Diastolic blood pressure 75 mm[Hg] Dr. Bhupinder tapia Work Phone: [facility] 06-17-2022 12:15-0400 Heart rate 86 /min Dr. Bhupinder Hamlin Work Phone: [facility] 06-17-2022 12:15-0400 Systolic blood pressure 111 mm[Hg] Dr. Bhupinder richter Work Phone: [facility] 06-17-2022 10:00-0400 Body height 157.[address] Bhupinder Hamlin Work Phone: [facility] 06-17-2022 10:00-0400 Body mass index (BMI) [Ratio] 35.6 kg/m2 Dr. Bhupinder Hamlin Work Phone: [facility] 06-17-2022 10:00-0400 Body temperature 96.5 [degF] Dr. Bhupinder Hamlin Work Phone: [facility] 06-17-2022 10:00-0400 Body weight 88.[address] Bhupinder Hamlin Work Phone: [facility] 06-17-2022 10:00-0400 Respiratory rate 16 /min Dr. Bhupinder Hamlin Work Phone: [facility] 06-17-2022 10:00-0400 SaO2% (BldA) [Mass fraction] 97 % Dr. Bhupinder Hamlin Work Phone: [facility] 06-05-2022 15:19-0400 Body mass index (BMI) [Ratio] 36 kg/m2 Dr. Bhupinder Hamlin Work Phone: [facility] 06-05-2022 15:19-0400 Body weight 89.[address] Bhupinder Hamlin Work Phone: [facility] 06-05-2022 15:19-0400 Diastolic blood pressure 82 mm[Hg] Dr. Bhupinder tapia Work Phone: [facility] 06-05-2022 15:19-0400 Heart rate 86 /min Dr. Bhupinder Hamlin Work Phone: [facility] 06-05-2022 15:19-0400 Respiratory rate 18 /min Dr. Bhupinder Hamlin Work Phone: [facility] 06-05-2022 15:19-0400 SaO2% (BldA) [Mass fraction] 96 % Dr. Bhupinder Hamlin Work Phone: [facility] 06-05-2022 15:19-0400 Systolic blood pressure 121 mm[Hg] Dr. Bhupinder richter Work Phone: [facility] 05-21-2022 15:52-0500 Body mass index (BMI) [Ratio] 36.1 kg/m2 Dr. Bhupinder Hamlin Work Phone: [facility] 05-21-2022 15:52-0500 Body temperature 97.9 [degF] Dr. Bhupinder Hamlin Work Phone: [facility] 05-21-2022 15:52-0500 Body weight 89.[address] Bhupinder Hamlin Work Phone: [facility] 05-21-2022 15:52-0500 Diastolic blood pressure 79 mm[Hg] Dr. Bhupinder tapia Work Phone: [facility] 05-21-2022 15:52-0500 Heart rate 86 /min Dr. Bhupinder Hamlin Work Phone: [facility] 05-21-2022 15:52-0500 Respiratory rate 17 /min Dr. Bhupinder Hamlin Work Phone: [facility] 05-21-2022 15:52-0500 SaO2% (BldA) [Mass fraction] 99 % Dr. Bhupinder Hamlin Work Phone: [facility] 05-21-2022 15:52-0500 Systolic blood pressure 115 mm[Hg] Dr. Bhupinder richter Work Phone: [facility] 02-04-2022 11:03-0500 Body height 157.48 cm MD Bhupinder Hamlin [facility] Work Phone: 02-04-2022 11:03-0500 Body mass index (BMI) [Ratio] 37 kg/m2 MD Bhupinder Hamlin [facility] Work Phone: 02-04-2022 11:03-0500 Body temperature 97.5 [degF] [facility] Work Phone: 02-04-2022 11:03-0500 Body weight 91.85 kg [facility] Work Phone: 02-04-2022 11:03-0500 Diastolic blood pressure 78 mm[Hg] MD Mcallister [facility] Work Phone: 02-04-2022 11:03-0500 Heart rate 98 /min [facility] Work Phone: 02-04-2022 11:03-0500 Respiratory rate 18 /min [facility] Work Phone: 02-04-2022 11:03-0500 SaO2% (BldA) [Mass fraction] 99 % [facility] Work Phone: 02-04-2022 11:03-0500 Systolic blood pressure 128 mm[Hg] [facility] Work Phone: 12-22-2021 19:10-0400 Body temperature 97.34 [degF] KARLA CERVANTES MD [facility] 12-22-2021 19:10-0400 Diastolic blood pressure 81 mm[Hg] KARLA Michaud [facility] 12-22-2021 19:10-0400 Heart rate 81 /min KARLA CERVANTES MD [facility] 12-22-2021 19:10-0400 Respiratory rate 16 /min KARLA CERVANTES MD [facility] 12-22-2021 19:10-0400 Systolic blood pressure 117 mm[Hg] KARLA CERVANTES MD [facility] 12-22-2021 16:00-0400 Heart rate 74 /min KARLA CERVANTES MD [facility] 12-22-2021 16:00-0400 Mean blood pressure 95 mm[Hg] KARLA CERVANTES MD [facility] 12-22-2021 16:00-0400 Reason For Taking VItal Signs KARLA CERVANTES MD [facility] 12-22-2021 16:00-0400 Respiratory rate 14 /min KARLA CERVANTES MD [facility] 12-22-2021 16:00-0400 Systolic blood pressure 123 mm[Hg] KARLA CERVANTES MD [facility] 12-22-2021 15:25-0400 Body temperature 96.8 [degF] KARLA CERVANTES MD [facility] 12-22-2021 15:25-0400 Diastolic Blood Pressure NBP 64 1 KARLA CERVANTES MD [facility] 12-22-2021 15:25-0400 Heart rate 72 /min KARLA CERVANTES MD [facility] 12-22-2021 15:25-0400 Mean blood pressure 74 mm[Hg] KARLA CERVANTES MD [facility] 12-22-2021 15:25-0400 Respiratory rate 16 /min KARLA CERVANTES MD [facility] 12-22-2021 15:25-0400 Systolic Blood Pressure NBP 112 1 KARLA CERVANTES MD [facility] 12-22-2021 15:09-0400 Diastolic Blood Pressure NBP 61 1 KARLA CERVANTES MD [facility] 12-22-2021 15:09-0400 Heart rate 73 /min KARLA CERVANTES MD [facility] 12-22-2021 15:09-0400 Mean blood pressure 72 mm[Hg] KARLA CERVANTES MD [facility] 12-22-2021 15:09-0400 Systolic Blood Pressure NBP 104 1 KARLA CERVANTES MD [address] 12-22-2021 14:53-0400 Body temperature 97.16 [degF] KARLA CERVANTES MD [address] 12-22-2021 14:53-0400 Diastolic Blood Pressure NBP 73 1 KARLA CERVANTES MD [address] 12-22-2021 14:53-0400 Heart rate 80 /min KARLA CERVANTES MD [address] [place] [address] 12-22-2021 14:53-0400 Mean blood pressure 77 mm[Hg] KARLA CERVANTES MD [address] [place] [address] 12-22-2021 14:53-0400 Systolic Blood Pressure NBP 91 1 KARLA CERVANTES MD [address] 12-22-2021 14:45-0400 Heart rate 75 /min KARLA CERVANTES MD [facility] 12-22-2021 14:40-0400 Body temperature 97.68 [degF] KARLA CERVANTES MD [facility] 12-22-2021 14:40-0400 Heart rate 78 /min KARLA CERVANTES MD [facility] 12-22-2021 14:35-0400 Body temperature 97.59 [degF] KARLA CERVANTES MD [address] 12-22-2021 14:30-0400 Body temperature 97.57 [degF] KARLA CERVANTES MD [facility] 12-22-2021 10:27-0400 Body height 157.5 cm KARLA CERVANTES MD [facility] 12-22-2021 10:27-0400 Body temperature 97.34 [degF] KARLA CERVANTES MD [address] [place] [address] 12-22-2021 10:27-0400 Body weight 93.3 kg KARLA CERVANTES MD [address] [place] [address] 12-22-2021 10:27-0400 Diastolic blood pressure 77 mm[Hg] KARLA Michaud [facility] 12-22-2021 10:27-0400 Mean blood pressure 90 mm[Hg] KARLA CERVANTES MD [address] [place] [address] 12-22-2021 10:27-0400 Systolic blood pressure 117 mm[Hg] KARLA CERVANTES MD [address] [place] [address] 12-08-2021 13:47-0400 Body height 157.5 cm KARLA CERVANTES MD [address] [place] [address] 12-08-2021 13:47-0400 Body temperature 97.52 [degF] KARLA CERVANTES MD [address] [place] [address] 12-08-2021 13:47-0400 Body weight 95.1 kg KARLA CERVANTES MD [address] [place] [address] 12-08-2021 13:47-0400 diastolic 77 mm[Hg] KARLA CERVANTES MD [address] [place] [address] 12-08-2021 13:47-0400 Heart rate 91 /min KARLA CERVANTES MD [facility] 12-08-2021 13:47-0400 systolic 116 mm[Hg] KARLA CERVANTES MD [facility] 11-18-2021 15:23-0400 Body height 157.[address] Kennedy Jaquez Work Phone: [facility] Work Phone: 11-18-2021 15:18-0400 Body mass index (BMI) [Ratio] 38.2 kg/m2 Dr. Kennedy Jaquez Work Phone: [facility] Work Phone: 11-18-2021 15:18-0400 Body temperature 98.1 [degF] Dr. Kennedy Jaquez Work Phone: [facility] Work Phone: 11-18-2021 15:18-0400 Body weight 94.[address] Kennedy Jaquez Work Phone: [facility] Work Phone: 11-18-2021 15:18-0400 Diastolic blood pressure 80 mm[Hg] Dr. Kennedy linton Work Phone: [facility] Work Phone: 11-18-2021 15:18-0400 Heart rate 94 /min Dr. Kennedy Jaquez Work Phone: [facility] Work Phone: 11-18-2021 15:18-0400 Respiratory rate 15 /min Dr. Kennedy Jaquez Work Phone: [facility] Work Phone: 11-18-2021 15:18-0400 SaO2% (BldA) [Mass fraction] 98 % Dr. Kennedy Jaquez Work Phone: [facility] Work Phone: 11-18-2021 15:18-0400 Systolic blood pressure 115 mm[Hg] Dr. Kennedy Jaquez Work Phone: [facility] Work Phone: 09-11-2021 15:31-0400 Body height 157.[address] Kennedy Jaquez Work Phone: [facility] Work Phone: 09-11-2021 15:24-0400 Body mass index (BMI) [Ratio] 40.3 kg/m2 Dr. Kennedy Jaquez Work Phone: [facility] Work Phone: 09-11-2021 15:24-0400 Body temperature 98.2 [degF] Dr. Kennedy Jaquez Work Phone: [facility] Work Phone: 09-11-2021 15:24-0400 Body weight 99.[address] Kennedy Jaquez Work Phone: [facility] Work Phone: 09-11-2021 15:24-0400 Diastolic blood pressure 68 mm[Hg] Dr. Kennedy linton Work Phone: [facility] Work Phone: 09-11-2021 15:24-0400 Heart rate 81 /min Dr. Kennedy Jaquez Work Phone: [facility] Work Phone: 09-11-2021 15:24-0400 Respiratory rate 15 /min Dr. Kennedy Jaquez Work Phone: [facility] Work Phone: 09-11-2021 15:24-0400 SaO2% (BldA) [Mass fraction] 99 % Dr. Kennedy Jaquez Work Phone: [facility] Work Phone: 09-11-2021 15:24-0400 Systolic blood pressure 97 mm[Hg] Dr. Kennedy Jaquez Work Phone: [facility] Work Phone: 08-14-2021 13:47-0400 Body mass index (BMI) [Ratio] 40.2 kg/m2 Dr. Kennedy Jaquez Work Phone: [facility] Work Phone: 08-14-2021 13:47-0400 Body temperature 98.2 [degF] Dr. Kennedy Jaquez Work Phone: [facility] Work Phone: 08-14-2021 13:47-0400 Body weight 99.[address] Kennedy Jaquez Work Phone: [facility] Work Phone: 08-14-2021 13:47-0400 Diastolic blood pressure 72 mm[Hg] Dr. Kennedy linton Work Phone: [facility] Work Phone: 08-14-2021 13:47-0400 Heart rate 90 /min Dr. Kennedy Jaquez Work Phone: [facility] Work Phone: 08-14-2021 13:47-0400 Respiratory rate 15 /min Dr. Kennedy Jaquez Work Phone: [facility] Work Phone: 08-14-2021 13:47-0400 SaO2% (BldA) [Mass fraction] 96 % Dr. Kennedy Jaquez Work Phone: [facility] Work Phone: 08-14-2021 13:47-0400 Systolic blood pressure 103 mm[Hg] Dr. Kennedy Jaquez Work Phone: [facility] Work Phone: 05-30-2021 14:42-0500 Body weight 102.[address] Kennedy Jaquez Work Phone: [facility] Work Phone: 05-30-2021 13:42-0500 Body height 157.[address] Kennedy Jaqeuz Work Phone: [facility] Work Phone: 05-30-2021 13:42-0500 Body weight 102.[address] Kennedy Jaquez Work Phone: [facility] Work Phone: 05-14-2021 13:53-0500 Body mass index (BMI) [Ratio] 43.7 kg/m2 Dr. Kennedy Jaquez Work Phone: [facility] Work Phone: 05-14-2021 13:53-0500 Body temperature 98.1 [degF] Dr. Kennedy Jaquez Work Phone: [facility] Work Phone: 05-14-2021 13:53-0500 Body weight 108.[address] Kennedy Jaquez Work Phone: [facility] Work Phone: 05-14-2021 13:53-0500 Diastolic blood pressure 85 mm[Hg] Dr. Kennedy linton Work Phone: [facility] Work Phone: 05-14-2021 13:53-0500 Heart rate 84 /min Dr. Kennedy Jaquez Work Phone: [facility] Work Phone: 05-14-2021 13:53-0500 Respiratory rate 15 /min Dr. Kennedy Jaquez Work Phone: [facility] Work Phone: 05-14-2021 13:53-0500 SaO2% (BldA) [Mass fraction] 97 % Dr. Kennedy Jaquez Work Phone: [facility] Work Phone: 05-14-2021 13:53-0500 Systolic blood pressure 124 mm[Hg] Dr. Kennedy Jaquez Work Phone: [facility] Work Phone: 05-09-2021 23:03-0500 Diastolic blood pressure 79 mm[Hg] Dr. Kennedy linton Work Phone: [facility] Work Phone: 05-09-2021 23:03-0500 Heart rate 72 /min Dr. Kennedy Jaquez Work Phone: [facility] Work Phone: 05-09-2021 23:03-0500 Respiratory rate 23 /min Dr. Kennedy Jaquez Work Phone: [facility] Work Phone: 05-09-2021 23:03-0500 SaO2% (BldA) [Mass fraction] 94 % Dr. Kennedy Jaquez Work Phone: [facility] Work Phone: 05-09-2021 23:03-0500 Systolic blood pressure 148 mm[Hg] Dr. Kennedy Jaquez Work Phone: [facility] Work Phone: 05-09-2021 18:46-0500 Body mass index (BMI) [Ratio] 43.6 kg/m2 Dr. Kennedy Jaquez Work Phone: [facility] Work Phone: 05-09-2021 18:46-0500 Body temperature 96.6 [degF] Dr. Kennedy Jaquez Work Phone: [facility] Work Phone: 05-09-2021 18:46-0500 Body weight 108.[address] Kennedy Jaquez Work Phone: [facility] Work Phone: 03-21-2020 09:37-0500 Body mass index (BMI) [Ratio] 43.2 kg/m2 Dr. Kennedy Jaquez Work Phone: [facility] Work Phone: 03-21-2020 08:37-0500 Body mass index (BMI) [Ratio] 43.2 kg/m2 Dr. Kennedy Jaquez Work Phone: [facility] Work Phone: Encounters Encounter Date Encounter Type Care Provider Facility Start: 02-13-2025 ambulatory Bhupinder Hamlin Facilit y:[facility] Start: 01-31-2025 ambulatory Bhupinder Hamlin Facilit y:[facility] Start: 01-23-2025 ambulatory Adam Solorzano Facility:[facility] Start: 01-10-2025 End: 01-10-2025 ambulatory Bhupinder Hamlin Facility:[facility] Start: 12-20-[address] Adam Solorzano MD -Laboratory Work Phone: Start: 12-20-2024 End: 12-20-2024 ambulatory Bhupinder Hamlin Facility:[facility] Start: 11-21-2024 End: 12-19-[address] Adam Solorzano MD -Laboratory Work Phone: Start: 11-21-2024 End: 12-19-[address] Alex Harrell MD Work Phone: -Laboratory Start: 10-17-2024 Non-patient / Non-visit Dr. Sussy BACH -[facility] Start: 10-17-2024 End: 10-19-[address] Adam Solorzano MD -Laboratory Work Phone: Start: 10-17-2024 End: 10-19-[address] Bhupinder Hamlin MD Work Phone: -Laboratory Start: 10-17-2024 End: 10-17-[address] Adam Solorzano MD -Cardiovascular Services Work Phone: Start: 10-17-2024 End: 10-17-2024 ambulatory Bhupinder Hamlin Facility:[facility] Start: 09-21-2024 End: 09-21-[address] Bhupinder Hamlin MD Work Phone: -Laboratory Start: 09-21-2024 End: 09-21-2024 Patient encounter procedure WANDY ROWAN MD -Laboratory Work Phone: Start: 09-21-2024 End: 09-21-2024 ambulatory WANDY ROWAN Facility:[facility] Start: 09-19-[address] Adam Solorzano MD -Laboratory [place] Work Phone: Start: 09-12-2024 End: 09-12-[address] Adam Solorzano MD -[facility] Work Phone: Start: 09-12-2024 End: 09-12-[address] Bhupinder Hamlin MD Work Phone: [facility] Work Phone: Start: 08-24-2024 End: 08-24-2024 Patient encounter procedure Lazara MITCHELL -[facility] Work Phone: Start: 08-24-2024 End: 08-24-[address] Bhupinder Hamlin MD Work Phone: [facility] Work Phone: Start: 08-23-[address] Alex Harrell MD -[facility] Start: 08-23-2024 ambulatory Bhupinder Hamlin Facilit y:[facility] Start: 08-16-2024 End: 08-16-[address] Bhupinder Hamlin MD Work Phone: [facility] Work Phone: Start: 08-16-2024 End: 08-16-[address] Adam Solorzano MD -Laboratory Work Phone: Start: 07-04-2024 End: 07-04-[address] Adam Solorzano MD Work Phone: [facility] Work Phone: Start: 07-04-2024 End: 07-04-2024 Patient encounter procedure Magaly OSUNA -Laboratory, [facility] Start: 07-04-2024 End: 07-04-2024 ambulatory Bhupinder Hamlin Facility:[facility] Start: 06-15-2024 End: 06-15-[address] Alex Harrell MD Work Phone: [facility] Work Phone: Start: 06-15-2024 End: 06-15-[address] Adam Solorzano MD -Laboratory Work Phone: Start: 05-24-2024 End: 05-24-[address] Deejay Dawson MD -[facility] Work Phone: Start: 05-24-2024 End: 05-24-2024 ambulatory Deejay Dawson Facility[facility] Start: 05-11-2024 End: 05-11-2024 Patient encounter procedure Bhupinder MITCHELL -[facility] Work Phone: Start: 05-11-2024 End: 05-11-2024 ambulatory Bhupinder Hamlin Facility:[facility] Start: 05-10-2024 End: 05-10-2024 Patient encounter procedure Gab Lockett BALLOON SELLERBijal -Laboratory, [facility] Start: 05-10-2024 End: 05-10-2024 ambulatory Bhupinder Hamlin Facility:[facility] Start: 05-02-2024 ambulatory Bhupinder Hamlin Facilit y:[facility] Start: 04-27-2024 End: 05-19-[address] [facility] Start: 04-27-2024 End: 05-19-2024 ambulatory Bhupinder Hamlin Facility:[facility] Start: 04-21-2024 End: 04-21-2024 ambulatory Bhupinder Hamlin Facility:[facility] Start: 04-21-2024 End: 04-21-[address] [facility] Start: 04-17-2024 End: 04-21-2024 ambulatory Bhupinder Hamlin Facility:[facility] Start: 04-17-2024 End: 04-21-[address] Adam Solorzano MD -Cardiac Rehab Work Phone: Start: 04-06-2024 ambulatory Bhupinder Hamlin Facilit y:[facility] Start: 03-29-2024 End: 03-29-[address] Bhupinder Hamlin MD -Cardiovascular Services Work Phone: Start: 03-29-2024 End: 03-29-2024 ambulatory Bhupinder Hamlin Facility:[facility] Start: 03-21-2024 End: 03-21-2024 ambulatory Bhupinder Hamlin Facility:[facility] Start: 03-21-2024 End: 03-21-[address] Adam Solorzano MD -Laboratory Work Phone: Start: 03-20-2024 End: 03-21-2024 ambulatory Bhupinder Hamlin Facility:[facility] Start: 03-20-2024 End: 03-21-[address] Adam Solorzano MD -Cardiac Rehab Work Phone: Start: 02-24-2024 End: 02-24-[address] Alex Harrell MD -[facility] Work Phone: Start: 02-24-2024 End: 02-24-2024 ambulatory Bhupinder E Schflyner Facility:[facility] Start: 02-23-[address] Alex Harrell MD -[facility] Start: 02-16-2024 End: 02-19-2024 ambulatory [facility] Facility:[facility] Start: 02-16-2024 End: 02-19-[facility] Start: 02-10-2024 End: 02-10-2024 ambulatory [facility] Facility:[facility] Start: 02-09-2024 End: 02-09-2024 [facility] Start: 02-04-2024 End: 02-04-2024 ambulatory [facility] Facility:[facility] Start: 01-21-2024 End: 01-21-2024 ambulatory ALLI JAMES Facility:[facility] Start: 01-21-2024 End: 01-21-2024 Patient encounter procedure Alli James BRADDERAfshanARTIFICIAL INSEMINATION TECHNICIAN Work Phone: Cardiothoracic Comment on above: Wound infection afte r surgery (Primary Dx) Start: 01-18-2024 End: 01-18-2024 ambulatory Kori Bang MD Work Phone: Infectious Disease Comment on above: [employer] Start: 01-17-2024 End: 01-17-2024 Telephone encounter Kori Bang MD Work Phone: Infectious Disease Comment on above: Orders Infection (Primary D x) Start: 01-14-2024 End: 01-14-2024 ambulatory KORI BANG Facility:[facility] Start: 01-14-2024 End: 01-14-2024 Patient encounter procedure Infd Copat Nurse Work Phone: Infectious Disease Comment on above: Infection (Primary D x) Escherichia coli inf ection (Primary Dx); Bacteremia Start: 01-10-2024 End: 01-10-2024 ambulatory Kori Bang MD Work Phone: Infectious Disease Comment on above: [employer] Outside Lab Results Start: 01-10-2024 End: 01-10-2024 Patient encounter procedure Noris Hyde [facility] Infectious Disease Comment on above: Initial Consult; 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 (Lab review) Start: 01-07-2024 End: 2024 ambulatory Reji Avila RN [facility] Comment on above: IV Medication Admini stration Start: 01-07-2024 End: 01-10-2024 Telephone encounter Pharmacist [facility] Comment on above: Patient Update (Prob letty with referral) Start: 01-07-2024 End: 01-07-2024 Evaluation and management of inpatient BHUPINDER HAMLIN Facility:[facility] Start: 01-05-2024 End: 01-05-2024 ambulatory Kori Bang MD Work Phone: [facility] Comment on above: [employer] Start Start: 01-05-2024 End: 01-05-2024 Telephone encounter Coni Nation MD Work Phone: Cardiology Comment on above: Post Dc Program Call - Fyi Start: 01-02-2024 End: 01-09-2024 Evaluation and management of inpatient BHUPINDER HAMLIN Facility:[facility] Start: 12-21-2023 End: 12-21-2023 Patient encounter procedure Alli James APRN.CNP Work Phone: Cardiothoracic Comment on above: 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); Wound infection after surgery Start: 12-21-2023 End: 12-21-2023 ambulatory ALLI JAMES Facility:[facility] Start: 12-15-2023 End: 12-15-2023 ambulatory Nahomy Taylor RN CLINICAL INVEST UNI T Start: 12-15-2023 End: 12-15-2023 Patient encounter procedure Nahomy Taylor RN CLINICAL INVEST UNIT Start: 12-10-2023 End: 12-10-2023 ambulatory Nahomy Taylor RN CLINICAL INVEST UNI T Start: 12-10-2023 End: 12-10-2023 Patient encounter procedure Nahomy Taylor RN CLINICAL INVEST UNIT Start: 12-02-2023 End: 12-02-2023 ambulatory ANDEGONI SANDALAKIS Facility:[facility] Start: 12-02-2023 End: 12-02-2023 Patient encounter procedure Andegoni Sandalakis BRADDER.ARTIFICIAL INSEMINATION TECHNICIAN Work Phone: Cardiothoracic Comment on above: 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 /) Start: 11-11-2023 End: 11-11-2023 Evaluation and management of inpatient [facility] Facility:[facility] Start: 11-05-2023 End: 11-11-2023 Evaluation and management of inpatient [facility] Facility:[facility] Start: 11-04-2023 End: 11-04-2023 ambulatory Yasmin Daswon MD Work Phone: Cardiothoracic Comment on above: Patient Education Start: 11-04-2023 End: 11-04-2023 Patient encounter procedure [facility] Work Phone: Cardiothoracic Comment on above: Discharge planning i ssues (Primary Dx); Preop testing; Pre-op exam Preop cardiovascular exam (Primary Dx) Aortic valve disorde r (Primary Dx) Start: 11-04-2023 End: 11-04-2023 Patient encounter status Yasmin Dawson MD Work Phone: [facility] Start: 11-04-2023 End: 11-04-2023 Preprocedural examination done [facility] Work Phone: [facility] Start: 11-04-2023 Encounter for other preprocedural examination BHUPINDER HAMLIN [facility] Start: 11-03-2023 Encounter for preprocedural cardiovascular examination BHUPINDER HAMLIN [facility] Start: 11-03-2023 End: 11-03-2023 [facility] Work Phone: Start: 11-03-2023 End: 11-03-2023 Subsequent hospital visit by physician Ct 2 Main Qb (I-Stat) Radiology Comment on above: 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] Start: 11-03-2023 End: 11-03-2023 Patient encounter procedure Pul [facility] Pulmonary Medicine Comment on above: Bicuspid aortic valv e (Primary Dx); Severe aortic regurgitation; Nonrheumatic aortic valve stenosis Start: 11-03-2023 End: 11-03-2023 ambulatory BHUPINDER HAMLIN Pulmonary Medicine Comment on above: Spirometry Start: 11-02-2023 Patient encounter status Pul J-1 [facility] Start: 10-25-2023 End: 10-25-2023 [facility] Dutch Faith MD Work Phone: Neurology Comment on above: Convulsions, unspeci fied convulsion type (HCC) (Primary Dx); Disorder of artery or arteriole (HCC); Pre-operative cardiovascular examination; Aortic valve disorder; 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 Bhupinder Hamlin Work Phone: [facility] Work Phone: Start: 06-30-2023 End: 06-30-[address] Bhupinder Hamlin Work Phone: [facility] Work Phone: Start: 06-29-2023 End: 06-29-[address] Bhupinder Hamlin Work Phone: [facility] Work Phone: Start: 06-23-2023 End: 06-23-[address] Bhupinder Hamlin Work Phone: [facility] Work Phone: Start: 06-02-2023 End: 06-02-[address] Bhupinder Hamlin Work Phone: [facility] Work Phone: Start: 06-02-2023 End: 06-02-[address] Bhupinder Hamlin Work Phone: [facility] Start: 05-27-2023 End: 05-27-[address] Bhupinder Hamlin Work Phone: [facility] Work Phone: Start: 05-26-[address] Bhupinder Hamlin Work Phone: [facility] System [facility] Start: 05-26-2023 End: 05-26-[address] Bhupinder Hamlin Work Phone: [facility] Work Phone: Start: 04-26-2023 End: 04-26-[address] Bhupinder Hamlin Work Phone: [facility] Work Phone: Start: 03-25-2023 End: 03-25-[address] Bhupinder Hamlin Work Phone: [facility] Work Phone: Start: 02-22-2023 End: 02-22-[address] Bhupinder Hamlin Work Phone: [facility] Work Phone: Start: 02-10-2023 End: 02-18-[address] Bhupinder Hamlin Work Phone: [facility] Work Phone: Start: 02-10-2023 End: 02-18-[address] Bhupinder Hamlin Work Phone: [facility] Work Phone: Start: 02-03-[address] Bhupinder Hamlin Work Phone: [facility] Start: 02-03-2023 End: 02-03-[address] Bhupinder Hamlin Work Phone: [facility] Work Phone: Start: 01-19-2023 End: 01-19-[address] Bhupinder Hamlin Work Phone: [facility] Work Phone: Start: 01-08-2023 End: 01-08-[address] Bhupinder Hamlin Work Phone: [facility] Work Phone: Start: 01-08-2023 End: 01-08-[address] Bhupinder Hamlin Work Phone: [facility] Start: 12-17-2022 End: 12-17-[address] Bhupinder Hamlin Work Phone: [facility] Work Phone: Start: 12-17-2022 End: 12-17-[address] Bhupinder Hamlin Work Phone: [facility] Work Phone: Start: 12-17-[address] Bhupinder Hamlin Work Phone: [facility] Work Phone: Start: 12-17-2022 End: 12-17-[address] Bhupinder Hamlin Work Phone: [facility] Work Phone: Start: 12-09-2022 End: 12-19-[address] Bhupinder Hamlin Work Phone: [facility] Work Phone: Start: 12-09-2022 End: 12-19-[address] [facility]upinder Hamlin [facility] Work [facility] Start: 11-16-2022 End: 11-19-[address] Bhupinder Hamlin Work Phone: [facility] Work Phone: Start: 11-16-2022 End: 11-19-[address] Bhupinder Hamlin [facility] Work [facility] Start: 11-04-[address] Bhupinder Hamlin [facility] Work [facility] Start: 11-04-2022 End: 11-04-[address] Bhupinder Hamlin Work Phone: [facility] Work Phone: Start: 11-04-2022 End: 11-04-[address] Bhupinder Hamlin Work Phone: [facility] Work Phone: Start: 10-28-[address] Bhupinder Hamlin Work Phone: [facility] Work Phone: Start: 10-26-2022 End: 10-26-[address] Bhupinder Hamlin Work Phone: [facility] Work Phone: Start: 10-19-2022 End: 10-19-[address] Bhupinder Hamlin Work Phone: [facility] Work Phone: Start: 10-19-2022 End: 10-19-[address] Bhupinder Hamlin Work Phone: [facility] Work Phone: Start: 10-19-2022 End: 10-19-[address] Bhupinder Hamlin Work Phone: [facility] Work Phone: Start: 10-13-[address] Bhupinder Hamlin Work Phone: [facility] Work Phone: Start: 08-20-2022 End: 08-20-[address] Bhupinder Hamlin Work Phone: [facility] Work Phone: Start: 07-29-[address] Bhupinder Hamlin Work Phone: [facility] Start: 07-29-2022 End: 07-29-[address] Bhupinder Hamlin Work Phone: [facility] Work Phone: Start: 07-23-2022 End: 07-23-[address] Bhupinder Hamlin Work Phone: [facility] Work Phone: Start: 06-26-2022 End: 07-19-[address] Bhupinder Hamlin Work Phone: [facility] Work Phone: Start: 06-26-2022 End: 07-19-[address] Bhupinder Hamlin Work Phone: [facility] Start: 06-25-[address] Bhupinder Hamlin Work Phone: [facility] Start: 06-22-2022 End: 06-22-[address] Bhupinder Hamlin Work Phone: [facility] Start: 06-18-2022 End: 06-18-[address] Bhupinder Hamlin Work Phone: [facility] Start: 06-17-[address] Bhupinder Hamlin Work Phone: [facility] Start: 06-15-2022 End: 06-15-[address] Bhupinder Hamlin Work Phone: [facility] Work Phone: Start: 06-15-2022 End: 06-15-[address] Bhupinder Hamlin Work Phone: [facility] Start: 06-11-2022 End: 06-11-[address] Bhupinder Hamlin Work Phone: [facility] Work Phone: Start: 06-11-2022 End: 06-11-[address] Bhupinder Hamlin Work Phone: [facility] Start: 06-05-2022 End: 06-05-[address] Bhupinder Hamlin Work Phone: [facility] Start: 05-21-2022 End: 05-21-[address] Bhupinder Hamlin Work Phone: [facility] Start: 05-06-2022 End: 05-06-[address] Bhupinder Hamlin [facility] Start: 04-08-2022 End: 04-08-[address] Bhupinder Hamlin Work Phone: [facility] Start: 03-26-2022 End: 03-26-[address] Bhupinder Hamlin Work Phone: [facility] Start: 03-11-2022 End: 03-11-[address] Bhupinder Hamlin Work Phone: [facility] Work Phone: Start: 03-11-2022 End: 03-11-[address] Bhupinder Hamlin Work Phone: [facility] Start: 02-20-2022 End: 02-20-2022 Patient encounter procedure MD Bhupinder Hamlin [facility] Start: 02-11-2022 End: 02-11-2022 ambulatory MD Bhupinder Hamlin [facility] Work Phone: Start: 02-11-2022 End: 02-11-2022 Patient encounter procedure MD Bhupinder Hamlin [facility] Start: 02-04-2022 End: 02-04-2022 Patient encounter procedure MD Bhupinder Hamlin [facility] Start: 01-30-2022 End: 01-31-2022 ambulatory BHUPINDER HAMLIN MD Facility:A Start: 01-30-2022 End: 01-30-2022 Patient encounter procedure KRYS BYRNESDEZ BRADDER-ARTIFICIAL INSEMINATION TECHNICIAN [facility] Start: 01-22-2022 Non-patient / Non-visit MD Bhupinder louis [facility] Start: 01-22-2022 End: 01-22-2022 ambulatory MD Bhupinder Hamlin [facility] Work Phone: Start: 01-22-2022 End: 01-22-2022 Patient encounter procedure MD Bhupinder Hamlin [facility] Start: 01-07-2022 End: 01-08-2022 ambulatory BHUPINDER HAMLIN MD Facility:A Start: 01-07-2022 End: 01-07-2022 Patient encounter procedure KARLA CERVANTES MD [facility] Start: 12-29-2021 Blood group A Rh(D) negative KARLA CERVANTES MD [facility] Start: 12-22-2021 End: 12-22-2021 ambulatory BHUPINDER HAMLIN MD Facility:A Start: 12-22-2021 End: 12-22-2021 Manual pelvic examination KARLA CERVANTES MD [facility] Start: 12-08-2021 End: 12-09-2021 ambulatory BHUPINDER HAMLIN MD Facility:A Start: 12-08-2021 End: 12-08-2021 Admission to establishment KARLA CERVANTES MD [facility] Start: 12-08-2021 End: 12-08-[address] Kennedy Jaquez Work Phone: [facility] Work Phone: Start: 12-08-2021 End: 12-08-[address] Kennedy Jaquez Work Phone: [facility] Start: 12-04-2021 End: 12-05-2021 ambulatory BHPUINDER HAMLIN MD Facility:A Start: 12-04-2021 End: 12-04-2021 Patient encounter procedure KARLA CERVANTES MD [facility] Start: 11-18-2021 End: 11-18-[address] Kennedy Jaquez Work Phone: [facility] Start: 11-18-2021 End: 11-18-[address] Kennedy Jaquez Work Phone: [facility] dyno technician Off Start: 11-14-2021 End: 11-14-[address] Kennedy Jaquez Work Phone: [facility] Work Phone: Start: 11-14-2021 End: 11-14-[address] Kennedy Jaquez Work Phone: [facility]/Neurology Start: 11-13-2021 End: 11-13-[address] Kennedy Jaquez Work Phone: [facility] Work Phone: Start: 11-13-2021 End: 11-13-[address] Kennedy Jaquez Work Phone: [facility] Start: 11-12-2021 End: 11-12-[address] Kennedy Jaquez Work Phone: [facility] Work Phone: Start: 11-12-2021 End: 11-12-[address] Kennedy Jaquez Work Phone: [facility] Start: 11-06-2021 End: 11-06-[address] Kennedy Jaquez Work Phone: [facility] Start: 10-30-2021 End: 10-30-[address] Kennedy Jaquez Work Phone[facility] Start: 10-21-2021 End: 10-21-[address] Kennedy Jaquez [facility] Start: 10-16-2021 End: 10-16-[address] Kennedy Jaquez Work Phone: [facility] Start: 09-15-2021 End: 09-15-[address] Kennedy Jaquez Work Phone: [facility] Start: 09-12-2021 Non-patient / Non-visit Dr. Gabriel Jaquez Work Phone: [facility] Start: 09-12-2021 End: 09-12-[address] Kennedy Jaquez Work Phone: [facility] Start: 09-11-2021 End: 09-11-[address] Kennedy Jaquez Work Phone: [facility] Start: 09-09-[address] Kennedy Jaquez Work Phone: [facility] Start: 08-14-2021 End: 08-14-[address] Kennedy Jaquez Work Phone: [facility], [facility] Start: 08-14-2021 End: 08-14-[address] Kennedy Jaquez Work Phone: [facility] Start: 06-11-2021 End: 06-11-[address] Kennedy Jaquez Work Phone: [facility]/Neurology Start: 06-09-2021 End: 06-09-[address] Kennedy Jaquez Work Phone: [facility] Start: 05-30-2021 End: 05-30-[address] Kennedy Jaquez Work Phone: [facility] Start: 05-22-2021 Non-patient / Non-visit Dr. Gabriel Jaquez Work Phone: [facility] Start: 05-22-2021 End: 05-22-[address] Kennedy Jaquez [facility] Start: 05-16-2021 End: 05-16-[address] Kennedy Jaquez Work Phone: [facility]Laboratory, Specimen Start: 05-14-[address] Kennedy Jaquez Work Phone: [facility] Start: 05-14-2021 End: 05-14-[address] Kennedy Jaquez Work Phone: [facility] Start: 05-09-2021 End: 05-10-2021 Emergency department patient visit Dr. Kennedy Jaquez Work Phone: [facility] Start: 03-25-2021 End: 03-25-[address] Kennedy Jaquez Work Phone: [facility]Labor[facility], Specimen Start: 03-19-[address] Kennedy Jaquez Work Phone: [facility], [place] Procedures Date Procedure Procedure Detail Performing Clinician Start: 09-21-2024 C>3< complement assay D jonatan Hamlin MD Work Phone: Comment on above: Performed at: [address] [id number] Director: Wilner Suarez PhD, Phone: [phone] Start: 09-21-2024 Urnls dip stick/tabl et reagent auto microscopy Dr. Bhupinder Hamlin MD Work Phone: Start: 08-23-[address] Bhupinder Hamlin MD Work Phone: Start: 08-23-2024 Total iron binding capacity measurement Dr. Bhupinder Hamlin MD Work Phone: Start: 06-05-2024 C>3< complement assay D jonatan Hamlin MD Work Phone: Comment on above: Performed at: [employer] [id number] Director: Wilner Suarez PhD, Phone: [phone] Start: 06-05-2024 Urnls dip stick/tabl et reagent auto microscopy Dr. Bhupinder Hamlin MD Work Phone: Start: 05-10-2024 Measurement of renal function Dr. Bhupinder Hamlin MD Work Phone: Comment on above: GFR Calc Start: 04-03-2024 C>3< complement assay D jonatan Hamlin MD Work Phone: Comment on above: Performed at: [facility] [place] [id number] Director: Wilner Suarez PhD, Phone: [phone] Start: 04-03-2024 Measurement of renal function Dr. Bhupinder Hamlin MD Work Phone: Comment on above: GFR Calc Start: 02-23-2024 Assay of phosphorus inorganic Dr. Bhupinder Hamlin MD Work Phone: Start: 02-23-2024 Endomysial antibody IgA level Dr. Bhupinder Hamlin MD Work Phone: Start: 02-23-2024 Gliadin antibody, Ig A measurement Dr. Bhupinder Hamlin MD Work Phone: Comment on above: Negative 0 - 19 Weak Positive 20 - 30 Moderate to Strong Positive >30 Start: 02-23-2024 Gliadin antibody, Ig G measurement Dr. Bhupinder Halmin MD Work Phone: Comment on above: Negative 0 - 19 Weak Positive 20 - 30 Moderate to Strong Positive >30 Start: 02-23-[address] e fraction Dr. Bhupinder Hamlin MD Work Phone: Start: 02-23-2024 Measurement of immunoglobulin A in serum specimen Dr. Bhupinder Hamlin MD Work Phone: Comment on above: Performed at: [address] [id number] Director: Wilner Suarez PhD, Phone: [phone] Start: 02-23-2024 Measurement of renal function Dr. Bhupinder Hamlin MD Work Phone: Start: 02-23-[address] Alex Harrell MD Work Phone: Start: 01-10-2024 BILIRUBIN TOTAL BLD Dariela Bang MD Work Phone: Start: 01-10-2024 C-reactive protein Chante Bang MD Work Phone: Start: 01-10-2024 CBC + DIFF Kori price MD Work Phone: Start: 01-10-2024 Comprehensive metabo lic 2000 panel - Serum or Plasma Kori Bang MD Work Phone: Start: 01-10-2024 SED RATE WESTERGREN Dariela Bang MD Work Phone: Start: 01-05-2024 Antibody screen BHUPINDER TURNER Comment on above: Order Comment: Speci men Type: BLOOD SPECIMENOrdering Facility: [facility] Address: [address] [place] [address] Performed By: #### T SCR ####[facility] [id number] [place] [address] [place] Start: 01-03-2024 Echocardiography BHUPINDER AL Start: 11-03-2023 Co diffusing capacity Felipe Dawson MD Work Phone: Start: 11-03-2023 Antibody screen BHUPINDER TURNER Comment on above: Order Comment: Speci men Type: BLOOD SPECIMENOrdering Facility: [facility] Address: [address] [place] [address] Performed By: #### T [id number] ####[facility] [id number] [address] [place] [id number] [address] [place] Start: 11-03-2023 Echocardiography BHUPINDER AL Start: 11-03-2023 Ct angiography chest w/contrast/noncontrast Yasmin Dawson MD Work Phone: Start: 05-26-[address] Bhupinder al MD Work Phone: Comment on above: TEST RESULTS LIMITSC eliac Ab tTG TIgA w/Rflx t- Transglutaminase (tTG) IgA 3 U/mL 0-3 Negative 0 - 3 Weak Positive 4 - 10 Positive >10 Tissue Transglutaminase (tTG) has been identified as the endomysial antigen. Studies have demonstr- ated that endomysial IgA antibodies have over 99% specificity for gluten sensitive enteropathy.Immunoglobulin A, Qn,Serum 191 mg/dL [id number] TESTING PERFORMED AT [facility]. ORIGINAL REPORT ON FILE IN LAB CONTAINS ADDITIONAL TEST SITE INFORMATION. _ Start: 11-04-2022 Screening mammography Keily Hamlin Work Phone: Start: 03-26-2022 Plain x-ray of elbow Dr Afshan Hamlin Work Phone: Start: 03-11-2022 Radiologic examinati on of knee Dr. Bhupinder Hamlin Work Phone: Start: 12-22-2021 Laparoscopic hysterectomy KARLA CERVANTES MD Start: 11-06-2021 MRI of brain with contrast Dr. Kennedy Jaquez Work Phone: Start: 10-30-2021 Computed tomography of abdomen and pelvis with contrast Dr. Kennedy Jaquez Work Phone: Start: 09-15-2021 Screening mammography D jonatan Jaquez Work Phone: Start: 08-14-2021 X-ray of lumbosacral spine Dr. Kennedy Jaquez Work Phone: Start: 05-16-2021 End: 05-16-2021 Measurement of occult blood in stool specimen using immunoassay Dr. Kennedy Jaquez Work Phone: Start: 05-09-2021 CT angiography of ch est with contrast Dr. Kennedy Jaquez Work Phone: Start: 05-09-2021 Plain chest X-ray Dr. Jake Jaquez Work Phone: Start: 05-09-2021 SARS-CoV-2 Antigen (Rapid) Dr. Kennedy Jaquez Work Phone: Start: 03-19-2021 X-ray of cervical spine Dr. Kennedy Jaquez Work Phone: H/O: hysterectomy S/P hysterectomy Dr. Destini Harrell MD Work Phone: History of tonsillectomy History of tonsillectomy Dr. Alex Harrell MD Work Phone: Ligation of fallopian tube Tayo CERVANTES MD Tonsillectomy KARLA CERVANTES MD Plan of Treatment Date Care Activity Detail Author Start: 10-01-2032 Urine microalbumin profile DTaP,Tdap,Td Vaccine (2 - Td or Tdap) [facility] Start: 01-09-2027 Diabetes Screening Diabetes Screening [facility] Start: 01-08-2027 Diabetes Screening Diabetes Screening [facility] Start: 01-06-2027 Diabetes Screening Diabetes Screening [facility] Start: 01-04-2027 Diabetes Screening Diabetes Screening [facility] Start: 11-09-2026 Diabetes Screening Diabetes Screening [facility] Start: 11-02-2026 Diabetes Screening Diabetes Screening [facility] Start: 01-21-2024 End: 01-21-2024 Patient encounter procedure 01/21/2024 11:00 AM EDT Office Visit Cardiothoracic [address] [place] [address] Alli James APRN.ARTIFICIAL INSEMINATION TECHNICIAN [address] [facility] [address] [place] [address] Wound Check Cardiothoracic Comment on above: Wound Check Start: 01-14-2024 End: 01-14-2024 Patient encounter procedure 01/14/2024 9:30 AM EDT Office Visit Infectious Disease [address] [place] [address] Kori Bang MD [address] [place] [address] hospital follow up Infectious Disease Comment on above: hospital follow up Start: 01-05-2024 End: 01-05-2024 Patient encounter procedure 01/05/2024 3:00 PM EDT Office Visit Cardiothoracic [address] [place] [address] Alli James, ALBIN.ARTIFICIAL INSEMINATION TECHNICIAN [address] [facility] [address] [place] [address] Wound Check Cardiothoracic Comment on above: Wound Check Start: 12-21-2023 End: 12-21-2023 Patient encounter procedure 12/21/2023 8:30 AM EDT Office Visit Cardiothoracic [address] [place] [address] Alli James, ALBIN.ARTIFICIAL INSEMINATION TECHNICIAN [address] [facility] [address] [place] [address] Wound Check Cardiothoracic Comment on above: Wound Check Start: 12-21-2023 End: 12-21-2023 ambulatory 12/21/2023 8:15 AM EDT Results Only Main [place] [address] [facility] [address] [place] [address] CBC CMP PT [place] [address] Draw Station Comment on above: CBC CMP PT Start: 12-16-2023 End: 12-16-2023 Patient encounter procedure 12/16/2023 2:00 PM EDT Office Visit Cardiothoracic [address] [place] [address] Alli James, BRADDER.ARTIFICIAL INSEMINATION TECHNICIAN [address] [address] Wound Check Cardiothoracic Comment on above: Wound Check Start: 12-16-2023 End: 12-16-2023 ambulatory 12/16/2023 1:30 PM EDT Results Only [place] [address] [address] [place] [address] CBC CMP PT [place] [address] [address] Comment on above: CBC CMP PT Start: 12-02-2023 End: 12-02-2023 Patient encounter procedure 12/02/2023 3:00 PM EDT Office Visit Cardiothoracic [address] [place] [address] Alli James, BRADDER.ARTIFICIAL INSEMINATION TECHNICIAN [address] [facility] [address] [address] Stitch Removal Cardiothoracic Comment on above: Stitch Removal Start: 12-02-2023 End: 03-02-2024 CBC panel - Blood by Automated count COMPLETE BLOOD COUNT Lab Routine Status post mechanical aortic valve replacement Expected: 12/02/2023, Expires: 03/02/2024 [facility] Work Phone: Comment on above: Expected: 12/02/2023, Expires: Start: 12-02-2023 End: 03-02-2024 Comprehensive metabolic 2000 panel - Serum or Plasma COMPREHENSIVE METABOLIC PANEL Lab Routine Status post mechanical aortic valve replacement Expected: 12/02/2023, Expires: 03/02/2024 [facility] Comment on above: Expected: 12/02/2023, Expires: 4 Start: 12-02-2023 End: 03-02-2024 PT panel - Platelet poor plasma by Coagulation assay PROTHROMBIN TIME Lab Routine Status post mechanical aortic valve replacement Expected: 12/02/2023, Expires: 03/02/2024 [facility] Comment on above: Expected: 12/02/2023, Expires: Start: 11-21-2023 Covid-19 Vaccine () Covid-19 Vaccine () [facility] Start: 11-21-2023 Covid-19 Vaccine () Covid-19 Vaccine () [facility] Start: 11-21-2023 Influenza vaccination Influenza Vaccine (#1) [facility] Start: 11-05-2023 End: 11-05-2023 Admission to same day surgery center Admitting Comment on above: AVR (1) AVr vs replacement, +/-ASC (1) Start: 11-05-2023 End: 11-05-2023 ambulatory 11/05/2023 6:30 AM EDT Perfusion Event Admitting [address] [place] [address] Nahomy Durán, Perfusion Student Admitting Start: 11-05-2023 End: 11-05-2023 Rplcmt prost aortic valve open xcp homogrf/stent [facility] CT & VAS Start: 11-05-2023 Subsequent hospital visit by physician Admitting Comment on above: Disorder of artery or arteriole (HCC) [I 77.9] Start: 11-04-2023 End: 02-03-2024 STAPHYLOCOCCUS AUREUS & MRSA SCREEN, PCR, NASAL [facility] Work Phone: Comment on above: Expected: 11/04/2023, Expires: 4 Start: 11-04-2023 End: 11-04-2023 Patient encounter procedure Cardiothoracic Comment on above: I77.9 Z01.810 I35.9 [facility] 11/05/23 DR. JUAREZ I77.9 Z01.810 I35.9 [facility] 11/05/23 DR JUAREZ Start: 11-03-2023 End: 11-03-2023 ambulatory 11/03/2023 1:45 PM EDT Procedure Pulmonary Medicine [address] [place] [address] I77.9 Z01.810 I35.9 [facility] 11/05/23 DR. JUAREZ Pulmonary Medicine Comment on above: I77.9 Z01.810 I35.9 [facility] 11/05/23 DR. JUAREZ Start: 11-03-2023 End: 11-03-2023 ambulatory [facility] J1-4 Dra shanita Garg Comment on above: I77.9 Z01.810 I35.9 [facility] 11/05/23 DR. JUAREZ Start: 11-03-2023 End: 11-03-2023 Patient encounter procedure Cardiology Comment on above: VIRI I77.9 Z01.810 I35.9 [facility] 11/05/23 DR. JUAREZ 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] Start: 10-07-2023 End: 01-06-2024 aPTT in Platelet poor plasma by Coagulation assay ACTIVATED PARTIAL THROMBOPLASTIN TIME Lab Routine Disorder of artery or arteriole (HCC) Pre-operative cardiovascular examination Aortic valve disorder Expected: 10/07/2023 (Approximate), Expires: 01/06/2024 [facility] System Comment on above: Expected: 10/07/2023 (Approximate), Expi res: 01/06/2024 Start: 10-07-2023 End: 01-06-2024 CBC W Auto Differential panel - Blood COMPLETE BLOOD COUNT AND DIFFERENTIAL Lab Routine Disorder of artery or arteriole (HCC) Pre-operative cardiovascular examination Aortic valve disorder Expected: 10/07/2023, Expires: 01/06/2024 [facility] Comment on above: Expected: 10/07/2023, Expires: Start: 10-07-2023 End: 01-06-2024 Choriogonadotropin.beta subunit [Units/volume] in Serum or Plasma HCG QUANTITATIVE Lab Routine Disorder of artery or arteriole (HCC) Pre-operative cardiovascular examination Aortic valve disorder Expected: 10/07/2023 (Approximate), Expires: 01/06/2024 [facility] Comment on above: Expected: 10/07/2023 (Approximate), Expi res: 01/06/2024 Start: 10-07-2023 End: 01-06-2024 Comprehensive metabolic 2000 panel - Serum or Plasma COMPREHENSIVE METABOLIC PANEL Lab Routine Disorder of artery or arteriole (HCC) Pre-operative cardiovascular examination Aortic valve disorder Expected: 10/07/2023, Expires: 01/06/2024 [facility] Work Phone: Comment on above: Expected: 10/07/2023, Expires: Start: 10-07-2023 End: 01-06-2024 CONFIRM BLOOD TYPE CONFIRM BLOOD TYPE Blood Bank Routine Disorder of artery or arteriole (HCC) Pre-operative cardiovascular examination Aortic valve disorder Expected: 10/07/2023, Expires: 01/06/2024 [facility] Comment on above: Expected: 10/07/2023, Expires: Start: 10-07-2023 End: 01-06-2024 Lactate dehydrogenase [Enzymatic activity/volume] in Serum or Plasma LACTATE DEHYDROGENASE Lab Routine Disorder of artery or arteriole (HCC) Pre-operative cardiovascular examination Aortic valve disorder Expected: 10/07/2023, Expires: 01/06/2024 [facility] Comment on above: Expected: 10/07/2023, Expires: Start: 10-07-2023 End: 01-06-2024 PT panel - Platelet poor plasma by Coagulation assay PROTHROMBIN TIME Lab Routine Disorder of artery or arteriole (HCC) Pre-operative cardiovascular examination Aortic valve disorder Expected: 10/07/2023 (Approximate), Expires: 01/06/2024 [facility] Comment on above: Expected: 10/07/2023 (Approximate), Expi res: 01/06/2024 Start: 10-07-2023 End: 01-06-2024 TYPE AND SCREEN,30 DAY TYPE AND SCREEN,30 DAY Blood Bank Routine Disorder of artery or arteriole (HCC) Pre-operative cardiovascular examination Aortic valve disorder Expected: 10/07/2023, Expires: 01/06/2024 [facility] Comment on above: Expected: 10/07/2023, Expires: Start: 10-07-2023 End: 01-06-2024 URINALYSIS, DIPSTICK ONLY URINALYSIS, DIPSTICK ONLY Lab Routine Disorder of artery or arteriole (HCC) Pre-operative cardiovascular examination Aortic valve disorder Expected: 10/07/2023, Expires: 01/06/2024 [facility] Comment on above: Expected: 10/07/2023, Expires: Start: 03-22-2023 Behavioral Health Screening Behavioral Health Screening [facility] Start: 11-20-2022 Covid-19 Vaccine () Covid-19 Vaccine () [facility] Start: 06-22-2022 Cardiolipin IgA and IgG and IgM panel - Serum [facility] Start: 06-18-2022 Patient referral [facility] Work Phone: Start: 11-18-2021 Cancer antigen 19-9 measurement [facility] Work Phone: Start: 11-12-2021 Measurement of substance [facility] Work Phone: Start: 10-21-2021 Measurement of substance [facility] Work Phone: Start: 02-01-2020 Pneumococcal vaccination Pneumococcal Vaccine (2 of 2 - PCV) [facility] Start: 2019 Diabetes Screening Diabetes Screening [facility] Start: 2019 Lipid panel Lipid Screening [facility] Start: 2019 Screening for malignant neoplasm of colon [facility] Start: 2014 Screening for malignant neoplasm of breast Mammogram Screening [facility] Start: 1995 Screening for malignant neoplasm of cervix Cervical Cancer Screening [facility] Start: 1993 Hepatitis B Vaccine (1 of 3 - 19+ 3-dose series) Hepatitis B Vaccine (1 of 3 - 19+ 3-dose series) [facility] Start: 1993 Shingrix Vaccine (1 of 2) Shingrix Vaccine (1 of 2) [facility] Start: 1993 Urine microalbumin profile DTaP,Tdap,Td Vaccine (1 - Tdap) [facility] Start: 01-12-1992 Annual PCP Team Chronic Disease Visit Annual PCP Team Chronic Disease Visit [facility] Start: 01-12-1992 Anxiety Screening Anxiety Screening [facility] Start: 01-12-1992 Depression Screening Depression Screening [facility] Start: 01-12-1992 Hepatitis B surface antibody level LDL Cholesterol [facility] Start: 01-12-1992 Hepatitis C screening Hepatitis C Screening [facility] Start: 01-12-1992 HIV screening HIV Screening [facility] Start: 1985 Screening for malignant neoplasm of cervix Cervical Cancer Screening [facility] Basic metabolic 2008 panel with ionized calcium - Serum or Plasma [facility] Blood ammonia measurement [facility] C reactive protein [Mass/volume] in Serum or Plasma [facility] C reactive protein [Mass/volume] in Serum or Plasma [facility] Cardiolipin IgA Ab [Units/volume] in Serum by Immunoassay [facility] Cardiolipin IgA and IgG and IgM panel - Serum [facility] Work Phone: Cardiolipin IgG Ab [Units/volume] in Serum or Plasma [facility] Cardiolipin IgM Ab [Units/volume] in Serum or Plasma [facility] CBC W Auto Different ial panel - Blood [facility] Work Phone: CBC W Auto Different ial panel - Blood [facility] CBC W Auto Different ial panel - Blood [facility] CBC W Auto Different ial panel - Blood [facility] CBC W Auto Different ial panel - Blood [facility] CBC W Auto Different ial panel - [facility] Complement C3 [Mass/volume] in Serum or Plasma [facility] Work Phone: Complement C3 [Mass/volume] in Serum or Plasma [facility] Complement C4 [Mass/volume] in Serum or Plasma [facility] Work Phone: Complement C4 [Mass/volume] in Serum or Plasma [facility] Comprehensive metabo lic 2000 panel - Serum or Plasma [facility] End: 11-05-2024 CTA Chest vessels W contrast IV CTA CHEST (GATED) W IVCON Radiology Routine Disorder of artery or arteriole (HCC) Pre-operative cardiovascular examination Aortic valve disorder 1 Occurrences starting 10/07/2023 until 11/05/2024 [facility] Comment on above: 1 Occurrences starting 10/07/2023 until 11/05/2024 DNA double strand Ab [Units/volume] in Serum [facility] Work Phone: DNA double strand Ab [Units/volume] in Serum [facility] End: 10-06-2024 ECG COMPLETE ECG COMPLETE ECG Routine Disorder of artery or arteriole ([facility]) Pre-operative cardiovascular examination Aortic valve disorder 1 Occurrences starting 10/07/2023 until 10/06/2024 [facility] Comment on above: 1 Occurrences starting 10/07/2023 until 10/06/2024 End: 10-06-2024 Echocardiography ECHO Cardiology Routine Disorder of artery or arteriole ([facility]) Pre-operative cardiovascular examination Aortic valve disorder 1 Occurrences starting 10/07/2023 until 10/06/2024 [facility] Comment on above: 1 Occurrences starting 10/07/2023 until 10/06/2024 Erythrocyte sedimentation rate [facility] Erythrocyte sedimentation rate [facility] Ferritin [Mass/volum e] in Serum or Plasma [facility] Work Phone: Ferritin [Mass/volum e] in Serum or Plasma [facility] Ferritin [Mass/volum e] in Serum or Plasma [facility] Ferritin [Mass/volum e] in Serum or Plasma [facility] Ferritin [Mass/volum e] in Serum or Plasma [facility] Ferritin [Mass/volum e] in Serum or Plasma [facility] Folate [Mass/volume] in Serum or Plasma [facility] Work Phone: Gamma glutamyl transferase measurement [facility] Iron and Iron bindin g capacity panel - Serum or Plasma [facility] Work Phone: Iron and Iron bindin g capacity panel - Serum or Plasma [facility] Iron and Iron bindin g capacity panel - Serum or Plasma [facility] Iron and Iron bindin g capacity panel - Serum or Plasma [facility] Iron and Iron bindin g capacity panel - Serum or Plasma [facility] Iron and Iron bindin g capacity panel - Serum or Plasma [facility] Lactate dehydrogenas e measurement [facility] Lactate dehydrogenas e measurement [facility] Lactate dehydrogenas e measurement [facility] Lactate dehydrogenas e measurement [facility] LDH [facility] Work Phone: End: 11-05-2024 LUNG DIFFUSION CAPACITY ([facility]) LUNG DIFFUSION CAPACITY ([facility]) PFT Routine Disorder of artery or arteriole (HCC) Pre-operative cardiovascular examination Aortic valve disorder 1 Occurrences starting 10/07/2023 until 11/05/2024 [facility] Comment on above: 1 Occurrences starting 10/07/2023 until 11/05/2024 LUNG DIFFUSION CAPAC ITY ([facility]CO) LUNG DIFFUSION CAPACITY ([facility]) PFT Routine Disorder of artery or arteriole (HCC) Pre-operative cardiovascular examination Aortic valve disorder 11/03/2023 1:24 PM EDT [facility] Work Phone: Lupus anticoagulant assay [facility] Work Phone: Magnesium [Mass/volu me] in Serum or Plasma [facility] Measurement of substance [facility] Work Phone: Measurement of substance [facility] MR Brain WO contrast MRI BRAIN W O IVCON Radiology Routine Disorder of artery or arteriole (HCC) Pre-operative cardiovascular examination Aortic valve disorder Convulsions, unspecified convulsion type (HCC) 11/03/2023 7:25 PM EDT [facility] Work Phone: Patient Education Neutropenia Thrombocytopenia ED Anemia, Type Not Specified (Adult) ED Dyspnea [facility] Work Phone: Patient referral [facility] Work Phone: Procedure [facility] Procedure [facility] Reticulocyte count [facility] Rplcmt prost aortic valve open xcp homogrf/stent AVR W/ CARDIOPULMONARY BYPASS W/ PROSTHETIC OTHER THAN HOMOGRAFT/ STENTLESS TISSUE VALVE Disorder of artery or arteriole (HCC) Pre-operative cardiovascular examination Aortic valve disorder [facility] Rplcmt prost aortic valve open xcp homogrf/stent AVR W/ CARDIOPULMONARY BYPASS W/ PROSTHETIC OTHER THAN HOMOGRAFT/ STENTLESS TISSUE VALVE Disorder of artery or arteriole (HCC) Pre-operative cardiovascular examination Aortic valve disorder [facility] THOM[facility] Serum inorganic phosphate measurement [facility] End: 11-05-2024 SPIROMETRY BASELINE ONLY SPIROMETRY BASELINE ONLY PFT Routine Disorder of artery or arteriole (HCC) Pre-operative cardiovascular examination Aortic valve disorder 1 Occurrences starting 10/07/2023 until 11/05/2024 [facility] Comment on above: 1 Occurrences starting 10/07/2023 until 11/05/2024 SPIROMETRY BASELINE ONLY SPIROME TRY BASELINE ONLY PFT Routine Disorder of artery or arteriole (HCC) Pre-operative cardiovascular examination Aortic valve disorder 11/03/2023 1:24 PM EDT [facility] Work Phone: Urate [Mass/volume] in Serum or Plasma [facility] Work Phone: [facility] Vitamin B12 measurement [facility] Work Phone: Vitamin B12 measurement [facility] Immunizations Immunization Date Immunization Notes Care Provider [facility] 01-07-2023 influenza virus vacc ine, unspecified formulation Dutch Faith MD Work Phone: [facility] 02-21-2021 SARS-CoV-2 mRNA (tozinameran) vaccine KARLA CERVANTES MD [facility] Comment on above: Result Comment: 2021: TPV4 04-03-2020 SARS-CoV-2 mRNA (tozinameran) vaccine KARLA CERVANTES MD [facility] Comment on above: Result Comment: 2021: TPV40 03-13-2020 SARS-CoV-2 mRNA (tozinameran) vaccine KARLA CERVANTES MD [facility] Comment on above: Result Comment: 2021: TPV40 01-31-2019 influenza virus vacc ine, unspecified formulation KARLA CERVANTES MD [facility] 01-31-2019 pneumococcal polysaccharide vaccine, 23 valent KARLA CERVANTES MD [facility] 12-21-2017 influenza virus vacc ine, unspecified formulation KARLA CERVANTES MD [facility] 03-27-2016 influenza virus vacc ine, unspecified formulation KARLA CERVANTES MD [facility] 01-18-2014 influenza virus vacc ine, unspecified formulation KARLA CERVANTES MD [facility] Payers Date Payer Category Payer Unknown [id number] 2021 Private Health Insurance [id number] 2021 Private Health Insurance [id number] 2021 Self-pay [id number] 2019 Private Health Insurance [id number] 2013 Unknown [id number] 1974 Unknown [id number] 2.16.8 40.1.609247.3.579.2.627 1974 Unknown [id number] 2.16.8 40.1.725717.3.579.2.627 1974 Unknown [id number] 2.16.8 40.1.749146.3.579.2.627 1974 Unknown [id number] 2.16.8 40.1.505492.3.579.2.627 1974 Unknown [id number] 2.16.8 40.1.361820.3.579.2.627 Unknown [id number] Unknown [id number] Unknown [id number] 2.16.8 40.1.148103.3.579.2.462 Unknown [id number] 2.16.8 40.1.810645.3.579.2.462 Unknown [id number] 2.16.8 40.1.762003.3.579.2.462 Unknown [id number] 2.16.8 40.1.955194.3.579.2.462 Unknown [id number] 2.16.8 40.1.762578.3.579.2.462 Unknown [id number] 2.16.8 40.1.422239.3.579.2.462 Unknown [id number] 2.16.8 40.1.514165.3.579.2.462 Unknown [id number] 2.16.8 40.1.795501.3.579.2.462 Unknown [id number] 2.16.8 40.1.948485.3.579.2.462 Unknown [id number] 2.16.8 40.1.553768.3.579.2.462 Unknown [id number] 2.16.8 40.1.389457.3.579.2.462 Unknown [id number] 2.16.8 40.1.274702.3.579.2.462 Unknown [id number] 2.16.8 40.1.267320.3.579.2.462 Unknown [id number] 2.16.8 40.1.061822.3.579.2.462 Unknown [id number] 2.16.8 40.1.054659.3.579.2.462 Unknown [id number] 2.16.8 40.1.758318.3.579.2.462 Unknown [id number] 2.16.8 40.1.412269.3.579.2.462 Unknown [id number] 2.16.8 40.1.634366.3.579.2.462 Unknown [id number] 2.16.8 40.1.002664.3.579.2.462 Unknown [id number] 2.16.8 40.1.967319.3.579.2.462 Unknown [id number] 2.16.8 40.1.299766.3.579.2.462 Unknown [id number] 2.16.8 40.1.734573.3.579.2.462 Unknown [id number] 2.16.8 40.1.407171.3.579.2.462 Unknown [id number] 2.16.8 40.1.676814.3.579.2.462 Unknown [id number] 2.16.8 40.1.967532.3.579.2.462 Unknown [id number] 2.16.8 40.1.742284.3.579.2.462 Unknown [id number] 2.16.8 40.1.086526.3.579.2.462 Unknown [id number] 2.16.8 40.1.822386.3.579.2.462 Unknown [id number] 2.16.8 40.1.881175.3.579.2.462 Unknown [id number] 2.16.8 40.1.412954.3.579.2.462 Unknown [id number] 2.16.8 40.1.766932.3.579.2.462 Unknown [id number] 2.16.8 40.1.686918.3.579.2.462 Unknown [id number] 2.16.8 40.1.061069.3.579.2.462 Social History Date Type Detail Facility [facility] Work Phone: Start: 05-30-2021 End: 06-29-2023 Tobacco smoking status ALIS Unknown if ever smoked [facility] Start: 1975 Sex Assigned At Female [facility] Start: 12-03-2021 End: 01-02-2024 Tobacco smoking status Ex-smoker (finding) [facility] Sex Assigned At Sex [facility] Start: 1975 Sex Assigned At Not on file [facility] Start: 10-25-2023 End: 01-04-2024 Gender identity Not on file [facility] Start: 05-28-2000 End: 05-28-2005 History of tobacco use Current smoker [facility] Start: 05-28-2000 End: 05-28-2005 History of tobacco use Cigarette Smoker [facility] Start: 10-25-2023 End: 01-04-2024 Cigarettes smoked current (pack per day) - Reported 1 [facility] Start: 10-25-2023 End: 01-21-2024 Alcohol intake Current non-drinker of alcohol (finding) [facility] Adult Depression Screening Assessment 0 [facility] Start: 05-28-2008 Alcohol Comment rare use [facility] Start: 10-20-2023 Gender identity Identifies as female gender (finding) [facility] Has the Real [employer], oil, or water company threatened to shut off services in your home in past 12Mo No [facility] Work Phone: (I/We) worried isaias tapia (my/our) food would run out before (I/we) got money to buy more. Never true [facility] Start: 06-19-2024 End: 07-07-2024 Sex Female (finding) [facility] Medical Equipment Procedure Code Equipment Code Equipment Original Text Equipment Identifier Dates Laparoscopic TLH BSO Staging Oncology Unknown 12/22/21 Unknown Unknown FDA Start: 12-22-2021 Laparoscopic TLH BSO Staging Oncology Unknown 12/22/21 Unknown Unknown FDA Start: 12-22-2021 Laparoscopic TLH BSO Staging Oncology Unknown 12/22/21 Unknown Unknown FDA Start: 12-22-2021 [place] Thk1.65mm P tfe 4x.5in Cardiovascular Sterile - [id number] Start: 11-05-2023 [place] Thk1.65mm P tfe 4x.5in Cardiovascular Sterile - [id number] Start: 11-05-2023 Valve [place] Fle xcuff 25mm 23mm 85d Ptfe Pyrolytic Carbon Aortic 1 Digit - [id number] Start: 11-05-2023 Goals Date Patient Goal Desired Activity /State Personal health goal Functional Status Date Assessment Result Facility 12-22-2021 Functional Status Awake, Up ad noble, Up to bathroom [facility] 12-22-2021 [facility] Functional Status Maintained [facility] Mental Status Date Assessment Result Facility 06-17-2022 Cognitive function Voice/Name [facility] Work Phone: 12-22-2021 Mental Status Oriented x 4 [facility] 12-22-2021 Mental Status [facility] 12-22-2021 Mental Status [facility] Clinical Notes 12-21-2021 to 08-24-2024 Note Date & Type Note Facility 08-24-2024 Evaluation note Diagnosis Onset Date Resolution Lupus anticoagulant positive chronic August 24, 2024 2:53pm Iron deficiency anemia resolved August 24, 2024 2:53pm Postoperative atrial fibrillation acute September 12, 2 025 3:17pm H/O mechanical aortic valve replacement November 05, 2023 chronic September 12, 2024 3:17pm Sternal wound dehiscence chronic September 12, 2024 3:17pm [facility] Work Phone: [phone]) 903-453806-05-2025 [facility] [address] [place] [address] OFFICE VISIT Date of Service: 08/24/24 1459 MR#: [id number] Acct: [id number] Name: MARIA LUISA BROWNING Rep #: [id number] : 1975 From: Lazara Cannon ch, NP [employer] Age/Sex: 49/F Location[place] [facility] Status: Signed HPI Subjective Date of Service 08/24/24 Chief Complaint F/u for Iron deficiency anemia. History of Present Illness 49 y.o.woman presented to [facility] ER with SOB on 05/09/2021, CTA was negative for PE but showed R/L pleural effusion, R/L axillary nodes and mediastinal nodes so referred for further evaluation. Has history of SLE and is been treated in [place]. She was found to have Iron deficiency and started on Oral Iron. D-dimers was high so had Venous Doppler was done on 05/22/2021 which was negative. Lupus anticoagulant done which positive on 11/12/2021, has never had a DVT. She was on oral Iron, found to have Iron deficiency anemia with low iron. Got IV Venofer. She was found to have mildly positive tTG on 02/03/2023 so started Gluten free diet. She is now on Oral Iron supplement. Interval History The patient is presenting to clinic for a planned 6 month follow up. Confirms she is taking PO iron daily with vitamin C. Denies fatigue, CP, palpitations, cough, SOB, changes in her bowel habits, melena/hematochezia. [facility] Medical History Postoperative atrial fibrillation Left leg swelling Right leg swelling Iron deficiency anemia Sternal wound dehiscence Adult celiac disease SLE (systemic lupus erythematosus) Lupus anticoagulant positive History of endocarditis Nonrheumatic aortic (valve) stenosis with insufficiency Chronic fatigue CKD (chronic kidney disease), stage II PAF (paroxysmal atrial fibrillation) CAD (coronary artery disease) Obesity Former tobacco use History of CVA (cerebrovascular accident) Seizures Carpal tunnel syndrome Arthritis Nonrheumatic aortic (valve) stenosis Essential hypertension Nonrheumatic aortic (valve) insufficiency Seizure disorder Female stress incontinence Surgical History S/P hysterectomy H/O mechanical aortic valve replacement (11/05/23) History of tonsillectomy Family History Grandmother CVA (cerebral vascular accident) Uterine cancer Uncle Heart disease Myocardial infarction CAD (coronary artery disease) Hypertension Mother Diabetes Father No problems noted. Social History household members: spouse Smoking Status: Former smoker how long ago did patient quit smoking: Smoked ~ 1 ppd x 5 years, quit 05/28/2008 second hand exposure: No alcohol intake: current alcohol intake frequency: holidays/special occasions only substance use type: does not use caffeine: Yes Type: coffee Number of servings: 2 seatbelt use: never Intake Vital Signs 02/24/24 14:07 05/24/24 10:32 08/24/24 15:00 Height 5 ft 1 in 5 ft 2 in 5 ft 2 in Weight: 184 lb 2 oz BMI 33.6 BP 86/58 L Blood Pressure Location Rt brachial Position Sitting Respiration 14 Pulse 56 L Pulse Source Monitor Temp 98.0 F Temperature Source Temporal Artery Pulse Oximetry (%) 97 Oxygen Delivery Method room air Intake Is patient in pain?: No Allergies ketorolac tromethamine (From Toradol) Allergy (Severe, Verified 08/24/24 15:01) Shortness of breath Medications ?Medication ?Instructions ?Recorded ?Confirmed ?Type aspirin 81 mg chewable tablet 81 mg PO DAILY@0800 hear t health 07/20/13 08/24/24 History ergocalciferol (vitamin D2) 1,250 50,000 unit PO DAILY supplement 02/14/19 08/24/24 History mcg (50,000 unit) capsule rosuvastatin 10 mg tablet 10 mg PO DAILY cholesterol 0 06/03/22 08/24/24 History acetaminophen 325 mg tablet 650 mg PO Q6H PRN PRN mild pain 12/12/23 08/24/24 History metoprolol succinate 50 mg 50 mg PO QHS #90 tabs 12/2208/24/24 Rx tablet,extended release 24 hr warfarin 4 mg tablet 4 mg PO .COMPLEX blood thinn er 02/07/24 08/24/24 Rx #180 tabs hydroxychloroquine 200 mg tablet 200 mg PO BID 4 08/24/24 History (Plaquenil) enoxaparin 80 mg/0.8 mL 80 mg (0.8 mL) subcut Q12H P RN 03/03/24 08/24/24 Rx subcutaneous syringe bridging for mechanical hear t valve/ Low INR #8 mL warfarin 10 mg tablet 10 mg PO QHS #90 tabs 08/24/24 Rx amoxicillin 500 mg tablet 2,000 mg (4 x 500 mg) PO ONC E PRN 03/28/24 08/24/24 Rx dental #4 tabs ipratropium bromide 42 mcg (0.06 2 spray intranasal TI D PRN 05/11/24 08/24/24 History %) nasal spray levetiracetam 1,000 mg tablet 1,000 mg PO BID seizures #180 tabs 05/24/24 08/24/24 Rx Central Venous Access Central Venous Access: No Laboratory Tests 08/23/24 09:37 WBC 4.4 Hgb 13.8 Hct 40.1 Plt Count 149 L Absolute Neuts (auto) 3.0 Sodium 138 Potassium 4.1 Chloride 106 Carbon Dioxide 20.9 L BUN 20 H Creatinine 0.95 Glucose 89 Calcium 9.1 Iron 72 TIBC 212 L Iron Saturation 34.0 Unsaturated IBC 140 L Ferritin 1184 H GGT 17 AST 31 ALT 24 Alkaline Phosphatase 103 Exam Physical Exam Const alert, oriented x3 and healthy appearing HEENT normocephalic and head/scalp atraumatic Eyes General Eye: normal appearance of both eyes Resp normal respiratory effort and clear to auscultation bilaterally Cardio regular rate, regular rhythm, S1 normal heart sound and S2 normal heart sound Cardio Narrative: S2 loud GI normal to inspection, nondistended, normoactive bowel sounds and soft to palpation Extremity no clubbing, cyanosis or edema Psych Attitude: calm and engaged Coding Level of Care Code Off vis,est,level 3 Exam Problem Focused Diagnoses Iron deficiency anemia, unspecified iron deficiency anemia type D50.9 Iron deficiency anemia type: unspecified iron deficiency Lupus anticoagulant positive R76.0 Assessment and Plan Assessment and Plan (1) Iron deficiency anemia: Status: Resolved Qualifiers: Iron deficiency anemia type: unspecified iron deficiency Qualified Code(s): D50.9 - Iron deficiencyanemia, unspecified Comment: HGB was 13.8 on 08/23/24 Plan: May discontinue PO iron. Repeat CBC and iron studies in 6 months . (2) Lupus anticoagulant positive: Status: Chronic Plan: To continue observation and follow up with rheumatology. Orders: Orders Ferritin Today D50.9 - Iron deficiency anemia, unspecified Iron+Iron Binding Capacity Today D50.9 - Iron deficiency anemia, unspecified CBC W/Diff, Automated Today D50.9 - Iron deficiency anemia, unspecified Basic Metabolic Profile (BMP) Today D50.9 - Iron deficiency anemia, unspecified Medications: Discontinued ferrous fumarate (Ferrocite) Discontinued Reason: Pt no longer taking TAKE 1 TABLET BY MOUTH TWICE A DAY 60 tabs 2RF supplement 08/24/24 1532 h BALLOON SELLER BALLOON SELLER-C> Date _ Lazara Haney BALLOON SELLER BALLOON SELLER-C Cosigner Signature: Date (if applicable) CC: Dr. Bhupinder Hamlin MD ~ [facility]03-05-2025 Evaluation note* Diagnosis Onset Date Resolution Status Admit Date Obesity acute May 24 10:30am Epilepsy chronic May 24 10:30am Lupus anticoagulant positive chronic August 24, 2024 2:53pm Iron deficiency anemia resolved 2024 2:53pm [facility] Work Phone: [phone] Evaluation note* Diagnosis Onset Date Resolution Status Admit Date Postoperative atrial fibrillation acute May 11, 2 025 4:00pm H/O mechanical aortic valve replacement November 05, 2023 chronic May 11, 2024 4:00pm Sternal wound dehiscence chronic May 11, 2024 4:00pm Obesity acute May 24 10:30am Epilepsy chronic May 24 10:30am [facility] Work Phone: 1(849) 964-176002-20-2025 Evaluation note* Diagnosis Onset Date Resolution Status Admit Date Postoperative atrial fibrillation acute May 11, 2 025 4:00pm H/O mechanical aortic valve replacement November 05, 2023April 4:00pm Sternal wound dehiscence chronic May 11, 2024 4:00pm Obesity acute May 24 10:30am Epilepsy chronic May 24 10:30am Lupus anticoagulant positive chronic August 24, 2024 2 :53pm Iron deficiency anemia resolved [facility] 2024 2:53pm [facility] Work Phone: 1(471) 668-880412-05-2024 Evaluation note* Diagnosis Onset Date Resolution Status Admit Date Lupus anticoagulant positive chronic February 23 1:52pm SLE (systemic lupus erythematosus) chronic February 23 1:52pm Iron deficiency anemia resolved [facility] [place] 1:52pm Postoperative atrial fibrillation acute May 11, 2 025 4:00pm H/O mechanical aortic valve replacement November 05, 2023April 4:00pm Sternal wound dehiscence chronic May 11, 2024 4:00pm Obesity acute May 24 10:30am Epilepsy chronic May 24 10:30am [facility] Work Phone: 1(261) 445-308811-01-2024 NoteW[facility]11-01-[facility] History of Present illness Narrative* Alli James, BRADDER.ARTIFICIAL INSEMINATION TECHNICIAN - 01/21/2024 11:26 AM EDT Images from the original note were not included. [facility] Department of Cardiovascular Medicine DEPARTMENT OF CARDIAC SURGERY OUTPATIENT VISIT DATE January 21, 2024 OUTPATIENT VISIT TYPE FOLLOW UP Maria Luisa Browning is a 48 year old female who is here for return post op follow up visit. Most recent Cardiac Surgery: S/p on 11/05/2023 [facility] Surgeon: Yasmin Dawson MD Operations : Upper J Hemisternotomy Mechanical AVR (STJ 25mm) and Aortoplasty Surgical Pathology:A. Aorta, partial excision: - Elastic type artery with no significant medial degeneration. B. Aortic valve, excision: - Bicuspid semilunar valve with severe calcification and severe fibrosis (gross diagnosis only). Discharged on 11/11/2023 HPI: patient presents today for wound check. Allergies: ALLERGIES Allergen Reactions Gluten Intolerance, GI Upset Toradol [Ketorolac * Breathing problems Medications: Current Outpatient Medications Medication Sig metoprolol succinate ER (TOPROL XL) 50 mg 24 hr tablet Take 1 tablet by mouth once daily. hydrOXYchloroQUINE (PLAQUENIL) 200 mg tablet Take 400 mg by mouth once daily. mycophenolate mofetil (CELLCEPT) 250 mg capsule Take 250 mg by mouth two times a day. aspirin 81 mg chewable tablet Take 1 tablet by mouth once daily. warfarin (COUMADIN) 4 mg tablet Take 1 tablet by mouth daily as directed. rosuvastatin (CRESTOR) 10 mg tablet Take 10 mg by mouth once daily. LeveTIRAcetam (KEPPRA) 1,000 mg ORAL tablet one po bid No current facility-administered medications for this visit. Medications and Allergies have been reviewed. Pain scale :Yes incisional. Manageable with prn tylenol Appetite: appetite good Activity: Walking ad noble around the house Elimination: normal, no constipation , urination is normal Sleep: no problems with sleep Incisions/Wounds: healed Do you feel safe in the home? Yes Alli James APRN.ARTIFICIAL INSEMINATION TECHNICIAN CC: I have suture I think PE: BP 111/69 Pulse 76 Temp 36.4 C (97.6 F) (Oral) Ht 154.9 cm (5' 1) Wt 75.3 kg (165 lb 14.4 oz) LMP (LMP Unknown) SpO2 100% BMI 31.35 kg/m Appearance: well developed, white female, in no acute distress Cardiac: regular S1, S2, positive mechanical click, No rub Lungs: Clear breath sounds bilaterally without wheeze or dullness Extremities: Edema: RLE 1+ Sternotomy site: healing, clean, dry and intact, with clear suture noted protruding thru skin Procedures: Clear suture trimmed at proximal portion of wound. IMPRESSION & PLAN: 1.S/p on 11/05/2023 [facility] Surgeon: Yasmin Dawson MD Operations : Upper J Hemisternotomy Mechanical AVR (STJ 25mm) and Aortoplasty Surgical Pathology:A. Aorta, partial excision: - Elastic type artery with no significant medial degeneration. B. Aortic valve, excision: - Bicuspid semilunar valve with severe calcification and severe fibrosis (gross diagnosis only). Discharged on 11/11/2023 2. Wound infection - MSI with two area open - local PCP culture positive for MRSA and started on Bactrim DS - today healed with clear suture at proximal portion of wound noted that was trimmed - no further surgical intervention needed at this time. PIC:12/02/2023 01/21/2024 REFERRAL (RECOMMENDATION): none Electronically Signed By Alli James APRN.ARTIFICIAL INSEMINATION TECHNICIAN In Department: CARDIOTHORACIC Alli James APRN.ARTIFICIAL INSEMINATION TECHNICIAN documented in this encounterThe [facility]10-29-2024 NoteW[facility]10-29-2024 History of Present illness Narrative* Steph Anderson - 01/18/2024 1:47 PM EDT Per orders of honor copat stop date of 01/16. Nurse at [facility] to remove picc. Picc removal orders faxed at [phone], confirmation received. Message sent to Pharmacy. Steph Veloz I documented in this encounterThe [facility] System10-28-2024 Miscellaneous Notes* Telephone Encounter - Destini Muhammad RN - 01/17/2024 4:32 PM EDT Order for picc removal faxed to the number provided. Confirmation received Destini Muhammad RN * Telephone Encounter - Lydia Monson HUC - 01/17/2024 1:18 PM EDT Pt calling in asking for you to fax over orders to the [facility] to have her Picc-line taken out tomorrow. Pt can be reached back at [phone] Please review and advise Thank you, BLACK Cohn documented in this encounterThe [facility] System10-28-2024 Telephone encounter Note * Telephone Encounter - Destini Muhammad RN - 01/17/2024 4:32 PM EDT Order for picc removal faxed to the number provided. Confirmation received Destini Muhammad RN [facility]10-28-2024 Telephone encounter Note* Telephone Encounter - Lydia Monson HUC - 01/17/2024 1:18 PM EDT Pt calling in asking for you to fax over orders to the [facility] to have her Picc-line taken out tomorrow. Pt can be reached back at [phone] Please review and advise Thank you, BLACK Cohn [facility]10-25-2024 NoteW[facility]10-25-2024 History of Present illness Narrative* Destini Muhammad RN - 01/14/2024 11:05 AM EDT Picc dressing changed per protocol. No signs or symptoms of infection at insertion site. Dry occlusive sterile dressing applied. Tolerated procedure without difficulty. Destini Muhammad RN documented in this encounterThe [facility]health System10-25-2024 History of Present illness Narrative* Kori Bang MD - 01/14/2024 9:30 AM EDT PROGRESS NOTE INFECTIOUS DISEASE Subjective Interval Events: Medications: No current facility-administered medications for this visit. Objective Physical Exam: Seen with sister General: Awake, alert, interactive Head: Atraumatic, normocephalic Nose: no devices present Mouth: Moist mucous membranes Neck: Supple, Chest: symmetric chest rise, breathing comfortably Heart: RRR Abdomen: soft without distension Extremities: No edema visualized, moving extremities spontaneously Neuro: Alert, oriented, and interactive Chest incision clean CBC with diff: WBC 6.0 01/10/2024 RBC 3.61 01/09/2024 Hemoglobin 10.3 01/10/2024 Hematocrit 33.2 01/10/2024 MCV 85.6 01/09/2024 MCH 27.4 01/09/2024 MCHC 32.0 01/09/2024 RDW-CV 15.3 01/09/2024 Platelet Count 232 01/10/2024 MPV 10.3 01/09/2024 Neutrophils % 54.0 01/10/2024 Lymphocytes % 10.5 01/02/2024 Monocytes % 4.4 01/02/2024 Eosinophils % 2.0 01/10/2024 Basophils % 0.0 01/02/2024 Abs Neut 3.2 01/10/2024 Abs Bowie 0.27 01/02/2024 Abs Eosin 0.00 01/02/2024 Abs Baso 0.00 01/02/2024 Microbiology data: reviewed DATA: Diagnostic Tests Reviewed for Today's Visit: Most recent labs and imaging results. Impression/Recommendations Assessment is copied forward from my last consult note with updates to reflect today's information January 13, 2024. 48 year old w/ PMH SLE recently on azathiaprine and hydroxychloroqine 11/05/23 s/p AVR Upper J Hemisternotomy Mechanical AVR (STJ 25mm) and Aortoplasty . Discharged 11/10. 12/01- CTS OPD. Drainage mid-portion of wound . local PCP culture positive for MRSA and started on Bactrim DS -Bactrim prescribed 11/30 x 40 tablets , per review of Epic dispense hx. 12/11 to 12/16/23 - Recently admitted to [facility] for n/v. Pt describes urinary incontinence.CRP 222 ID consulted Recently admitted to [facility] for N&V, acute GI bleed and fevers. After work up, felt symptoms were related to Lupus flare up with patient history. 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 Antibiotic were discontinued as ID work up was negative for active source of infection. 12/20- CTS OPD. Sternal wound felt improved on bactrim 12/31- Presented to [facility] d/t fever. Denies current localizing symptoms. Describes urinary incontinence/ couldn't make it to bathroom prior to 11/2023 OSH admission. Sternal incision healed overall. upper portion shallow , clean Urine Cx and blood cx E coli, UA 10-25 WBC, . CRP [address] [facility] [address] chest abdomen pelvis report without obvious source of infection or PE but did show nonspecific hepatosplenomegaly and nonspecific bowel wall thickening [facility] lab - main [phone] / Micro lab - [phone] . 01/01- Tx [facility] 01/02- Tx MICU #1 E coli bacteremia -Improving on abx Temp curve normalizing -01/01 OSH [facility] blood culture and urine culture E coli Reviewed OSh faxed susceptibility: -Susceptible to ceftriaxone, cefazolin, cefepime, gent, imipenem, pip/tazo/ tobra . NEG ESBL I to cipro and amp/ sub R to bactrim -Blood culture here CC (01/01) now also resulted E coli suscept - reviewed . Urine cx here neg - copat ceftriaxone. without po options d/t resistance . Stop date 01/16 -honor stop. Will ask home health / infusion center to pull picc SIGNATURE: Kori Bang MD PATIENT NAME: Maria Luisa Browning DATE: January 13, 2024 TIME: 1:20 PM PAGER/CONTACT #: Medical Decision Making: Problems: Moderate: New problem with uncertain prognosis Data: Unique test result(s) reviewed: 3+ Risk: Moderate: Drug management Medical Decision Making Level: 4 - Moderate documented in this encounterThe [facility] System10-25-2024 NoteW[facility]10-21-2024 History of Present illness Narrative* Noris Hyde RPh - 01/10/2024 3:31 PM EDT Infectious Diseases Outpatient Parenteral Antimicrobial Therapy Pharmacist Review Patient, Maria Luisa Browning ([id number]), was reviewed by an OPAT pharmacist and is eligible for OPAT Pharmacist Consult Service for the following medications: Ceftriaxone. Managing ID provider, Dr. Bang, has opted-in to the OPAT Pharmacist Consult Service. OPAT pharmacists will continue to follow patient renal function, therapeutic drug monitoring, and laboratory monitoring throughout the course of therapy. Additional recommendations will appear in follow up notes. If you have any questions, please contact Noris Hyde at [phone] or Gloria Freeman (ChungYun) at [phone]. Noris Hyde RPh 01/10/2024 3:32 PM * Noris Hyde RPh - 01/10/2024 3:31 PM EDT [facility] OPAT Documentation Note OPAT Pharmacist Lab Review Weekly OPAT labs reviewed. The patient is currently receiving the following IV antimicrobials as part of their OPAT therapy: ceftriaxone 2 g IV every 24 hours. Tentative OPAT stop date is 01/16. CRP 11.7 mg/dL - decreasing. Scr 0.83 mg/dL - stable. AST/ALT wnl. Alkaline phosphatase 169 U/L - decreased from prior. No pharmacist recommendations at this time. Lab Abnormalities Noted: none Total Time Spent on this Encounter (in minutes): < 5 Noris Hyde RPh 01/10/2024 3:32 PM documented in this encounterThe [facility]10-21-2024 NoteW[facility]10-21-2024 NoteW[facility]10-21-2024 Telephone encounter Note* Telephone Encounter - Blossom Lancaster RN - 01/10/2024 8:32 AM EDT Images from the original note were not included. Juliette Nguyen, DO You21 hours ago (11:30 AM) YUSEF Cerrato, This patient already follows with [facility] in [place] for her coumadin clinic. Could we please have her be scheduled for 01/09-01/10 for an INR check. Thanks, Dr. Nguyen PCP is a non [facility] provider. Pharmacy Anticoagulation Clinic will disregard referral at this time. Patsy Lancaster RN Pharmacy Antico[facility]10-21-2024 Miscellaneous Notes* Telephone Encounter - Blossom Lancaster RN - 01/10/2024 8:32 AM EDT Images from the original note were not included. Juliette Nguyen DO You21 hours ago (11:30 AM) YUSEF Cerrato, This patient already follows with [facility] in [place] for her coumadin clinic. Could we please have her be scheduled for 01/09-01/10 for an INR check. Thanks, Dr. Nguyen PCP is a non [facility] provider. Pharmacy Anticoagulation Clinic will disregard referral at this time. Patsy Lancaster RN Pharmacy Anticoagulation Clinic * Telephone Encounter - Blossom Lancaster RN - 01/07/2024 2:49 PM EDT Pharmacy Anticoagulation Clinic received a new referral that is incomplete. Please place an outpatient referral (order #[id number]) and include the name of the staff [facility] physician who will be following the patient as outpatient, the diagnosis, target INR range, and duration. Thank you, Patsy Lancaster RN Pharmacy Care Anticoagulation Clinic documented in this encounterThe [facility]10-20-2024 NoteW[facility]10-20-2024 NoteW[facility]10-20-2024 NoteW[facility]10-19-2024 NoteW[facility]10-19-2024 Note [facility]10-18-2024 NoteW[facility]10-18-2024 Telephone encounter Note* Telephone Encounter - Blossom Lancaster RN - 01/07/2024 2:49 PM EDT Pharmacy Anticoagulation Clinic received a new referral that is incomplete. Please place an outpatient referral (order #[id number]) and include the name of the staff [facility] physician who will be following the patient as outpatient, the diagnosis, target INR range, and duration. Thank you, Patsy Lancaster RN Pharmacy [facility] Anticoagulation Clinic [facility]10-18-2024 History of Present illness Narrative* Reji Avila RN - 01/07/2024 1:49 PM EDT [facility]fusion [facility]-IVPU [facility] TEACH / CCHIP RN Patient Name: Maria Luisa Browning Date: January 07, 2024 Time 1:45pm Patient identified by name and . Identified current IV therapy in hospital as Ceftriaxone. Confirmed matching medication and dose with the patient. Identified learner present Patient and family member IV access site: Picc. Dressing clean, dry and intact. 12 inch extension tubing attached with sterile technique for self administration. NO IV access has not been placed at the time of teach. Should be placed today for expected discharge over the weekend. to do administration, so no extension tubing needed. IV PUSH Method Reviewed Dose with prescription Drug Ceftriaxone Frequency q24 hrs Rate 20 ml over 3-5 min or 1 ml/10-15 sec. Discussed completion of teaching session with hospital assigned RN or Advertising Sales Manager Yes No Nursing, Patient to go out patient for labs and dressing changes at [place] outpatient facility for to set up. Taught to Remove IV syringe from Refrigerator 30 min before your dose time. Yes Performance Criteria: Reviewed paper instructions including IV teaching mat and current drug and dose orderedYes Instructed on supplies needing to be gathered before starting administration. Yes Check IVPU label and check med name, dose, and expiration date. Do not use , wrong label or debris. {.:[id number] Instructed to use a clean work area, lay out supplies on IV teaching mat Yes Instructed on handwashing with soap and water or pilot plant research technician. Yes 6. Taught/ demonstrated MicroClave care, alcohol wipe 15 seconds and let dry Yes 7. Taught/ demonstrated saline flush prep with air removal, and administration Yes 8. Taught/demonstrated how to unclamp IV Yes 9. Taught Push /Pause flush method and when to call assigned Infusion center. Never force Yes 10. Taught how to attach syringe with the IV PUSH medication Yes 11. Taught rate to infuse the IVPU medication to match the rate per prescription Yes 12. Taught alcohol wipe and Saline Flush after IVPU medication fully infusedYes 13. Clamp IV access prior to removing syringe Yes 14 Taught syringes in sharps container, other waste in trash bag Yes 15. Taught to monitor line dressing. Call infusion center for dressing change if not intact or if blood noted. Yes 16. Discussed supply management from [facility] and future deliveries Yes 17. Contact info for [facility] given. Yes 18 . Emphasize importance of communicating any symptoms or line issues directly to the assigned infusion center. Yes 19. Reviewed proper line care in the home setting if no CITY CONTROLLER assigned. Yes Final result: Patient and family member demonstrated competence with IV administration. Reji Avila RN documented in this encounterThe [facility]10-18-2024 NoteW[facility]10-18-2024 History of Present illness Narrative* Reji Avila RN - 01/07/2024 12:35 PM EDT [facility] Home [facility]fusion - Initial Bedside Assessment PATIENT NAME: Maria Luisa Browning SERVICE DATE: January 07, 2024 12:30 CAREGIVERS PRESENT: Patient and family member INITIAL BEDSIDE ASSESSMENT: Reason for [facility] beside visit: Bedside teach with [facility] Rn anticipated and no [facility] scheduled Past Home infusion experience:None Verbal topics covered:[facility] delivery process, [facility] role, Anticipated IV administration methods, Lab requirements, and Line care process Physical skills assessed: will be administering the antibiotics. Patient does not have CVC placed yet. Just discussion Infusion medication anticipated at discharge: Ceftrioxone Potential administration methods of intravenous medication:[place] and IV push Administration method preferred by patient: has no opinion on either method. All new to them. Teaching materials given to the patient/caregiver:[facility] contact information Is Home Care Nursing agency required for this therapy? [facility] agency: No Nursing Initial visit date: December No home health care agency is assigned, Bedside teach with [facility] Rn to follow Reji Avila RN documented in this encounterThe [facility]10-18-2024 NoteW[facility]10-17-2024 NoteW[facility]10-16-2024 NoteW[facility]10-16-2024 History of Present illness Narrative* Kori Bang MD - 01/05/2024 3:37 PM EDT [facility] Outpatient Parenteral Antimicrobial Therapy (OPAT) Start Form Patient Info Patient MRN Patient Name Address Date of [id number] Maria Luisa Browning [address] [id number] 1975 Start Date 01/05/2024 Physician Group Cc_main Diagnosis Group Diagnosis Genitourinary: UTI NOS Micro-organism IV Antibiotics Antibiotic Dose Frequency Stop Date Ceftriaxone 2 grams every 24 hours 01/17/2024 Lab Monitoring Plan Labs Frequency While on CBC/diff Creatinine Liver Function Tests every Wednesday every Wednesday every Wednesday Ceftriaxone Ceftriaxone Ceftriaxone OPAT Pharmacy Consult Yes Cath Care Protocol Flush IV line with 10 mL of normal saline (0.9%) before and after each dose of medication or at a minimum once daily. Flush IV line with 10-20 mL of normal saline (0.9%) after lab draw. Labs may be drawn on Wednesday if Wednesday is a holiday. Follow up Provider Follow up date/time Appointment type Kori Bang MD 409:30 EDT In-person Provider Monitoring Treatment Course Kori Bang MD Address [address] [place] [address] Prescribing Provider's signature - electronically signed by Kori Bang MD on 01/05/24 at 3:40 PM documented in this encounterThe [facility]10-16-2024 Telephone encounter Note * Telephone Encounter - Ludivina Graham RN - 01/05/2024 3:13 PM EDT Images from the original note were not included. [facility] Phone Encounter DATE of SERVICE: 01/05/2024 TIME of SERVICE: 3:13 PM Status: FYI Service/Provider: Dr. Coni Nation Reason for call: Follow-up Appointment and FYI Contact information: [phone] Resolution: Other Comments: Pt was calling to inform us that she missed her CTS OPD follow up because she is currently admitted to the hospital. She said she will call and reschedule once she is discharged. Ludivina Graham RN Date of Resolution: 01/05/2024 Time of Resolution 3:13 PM [facility]10-16-2024 Miscellaneous Notes* Telephone Encounter - Ludivina Graham RN - 01/05/2024 3:13 PM EDT Images from the original note were not included. [facility] Phone Encounter DATE of SERVICE: 01/05/2024 TIME of SERVICE: 3:13 PM Status: FYI Service/Provider: Dr. Coni Nation Reason for call: Follow-up Appointment and FYI Contact information: [phone] Resolution: Other Comments: Pt was calling to inform us that she missed her CTS OPD follow up because she is currently admitted to the hospital. She said she will call and reschedule once she is discharged. Ludivina Graham RN Date of Resolution: 01/05/2024 Time of Resolution 3:13 PM documented in this encounterThe [facility]10-16-2024 NoteW[facility]10-15-2024 NoteW[facility]10-15-2024 NoteW[facility]10-14-2024 NoteW[facility]10-13-2024 Note [facility]10-01-20[facility] History of Present illness Narrative* Alli James APRN.ARTIFICIAL INSEMINATION TECHNICIAN - 12/21/2023 8:30 AM EDT Images from the original note were not included. [facility] Department of Cardiovascular Medicine DEPARTMENT OF CARDIAC SURGERY OUTPATIENT VISIT DATE December 21, 2023 OUTPATIENT VISIT TYPE FOLLOW UP Maria Luisa Browning is a 48 year old female who is here for return post op follow up visit. Most recent Cardiac Surgery: S/p on 11/05/2023 [facility] Surgeon: Yasmin Dawson MD Operations : Upper J Hemisternotomy Mechanical AVR (STJ 25mm) and Aortoplasty Surgical Pathology:A. Aorta, partial excision: - Elastic type artery with no significant medial degeneration. B. Aortic valve, excision: - Bicuspid semilunar valve with severe calcification and severe fibrosis (gross diagnosis only). Discharged on 11/11/2023 HPI: patient presents today for wound check. Denies any chest pain, sob or lightheadedness. Denies any fever or chills. Recently admitted to [facility] for N&V, acute GI bleed and fevers. After work up, felt symptoms were related to Lupus flare up with patient history. 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 Antibiotic were discontinued as ID work up was negative for active source of infection. INR being managed by local PCP. Currently denies any chest pain, sob or lightheadedness. No fever or chills. Accompanied by her sister. Allergies: ALLERGIES Allergen Reactions Gluten Intolerance, GI Upset Toradol [Ketorolac * Breathing problems Medications: Current Outpatient Medications Medication Sig sulfamethoxazole-trimethoprim (BACTRIM DS) 800-160 mg per tablet Take 2 tablets by mouth every 12 hours. aspirin 81 mg chewable tablet Take 1 tablet by mouth once daily. acetaminophen (TYLENOL) 325 mg tablet 2 tablets by ORAL/FEEDING TUBE route every 6 hours as needed (for mild surgical pain). amiodarone (PACERONE) 200 mg tablet Take 1 tablet by mouth two times a day for 7 days, THEN 1 tablet once daily for 28 days. Patient should start on November 12, 2023. (Patient not taking: Reported on 12/02/2023) lidocaine (SALONPAS) 4 % patch Apply 1-2 Patches as directed once daily. APPLY TO: Chest / BACK - Remove patch after 12 hours. metoprolol succinate ER (TOPROL XL) 100 mg Take 1 tablet by mouth daily with breakfast AND 0.5 tablets daily at bedtime. warfarin (COUMADIN) 4 mg tablet Take 1 tablet by mouth daily as directed. mycophenolate mofetil (CELLCEPT) 250 mg capsule Take by mouth two times a day. rosuvastatin (CRESTOR) 10 mg tablet Take 10 mg by mouth once daily. hydroxychloroquine (PLAQUENIL) 200 mg ORAL tablet Take 200 mg by mouth twice daily. LeveTIRAcetam (KEPPRA) 1,000 mg ORAL tablet one po bid No current facility-administered medications for this visit. Medications and Allergies have been reviewed. Pain scale :Yes incisional. Manageable with prn tylenol Appetite: appetite good Activity: Walking ad noble around the house Elimination: normal, no constipation , urination is normal Sleep: no problems with sleep Incisions/Wounds: open msi Do you feel safe in the home? Yes Alli James APRN.ARTIFICIAL INSEMINATION TECHNICIAN CC: I feel better now after being in the hospital again for 6 days PE: BP 132/86 Pulse 64 Temp 36.8 C (98.2 F) (Oral) Ht 154.9 cm (5' 1) Wt 78.5 kg (173 lb) LMP (LMP Unknown) SpO2 99% BMI 32.69 kg/m Appearance: well developed, white female, in no acute distress Cardiac: regular S1, S2, positive mechanical click, No rub Lungs: Clear breath sounds bilaterally without wheeze or dullness Extremities: Edema: RLE 1+ Sternotomy site: healing, clean, dry and intact, Open wound noted on sternotomy Proximal and [id number] x 1cm with 0.5 or lesscm depth with suture material exposed Wound: see above Procedures: MSI wound cleanse, suture exposed removed and wound packed with calcium alginate and dry dressing. Advised to pack every other day. IMPRESSION & PLAN: 1.S/p on 11/05/2023 [facility] Surgeon: Yasmin Dawson MD Operations : Upper J Hemisternotomy Mechanical AVR (STJ 25mm) and Aortoplasty Surgical Pathology:A. Aorta, partial excision: - Elastic type artery with no significant medial degeneration. B. Aortic valve, excision: - Bicuspid semilunar valve with severe calcification and severe fibrosis (gross diagnosis only). Discharged on 11/11/2023 2. Wound infection - MSI with two area open - local PCP culture positive for MRSA and started on Bactrim DS - wounds cleansed and packed with Calcium Alginate every other day - today noting improvement. Suture removed from distal end without difficulty - continue calcium alginate packing with dry dressing - return in 2 weeks to reasesss, is going to establish with local wound care clinic today - any worsening incisional concerns to notify [facility]:12/02/2023 12/21/2023 REFERRAL (RECOMMENDATION): Cardiothoracic OPD for continued follow-up Electronically Signed By Alli James APRN.ARTIFICIAL INSEMINATION TECHNICIAN In Department: CARDIOTHORACIC Alli James APRN.ARTIFICIAL INSEMINATION TECHNICIAN documented in this encounterThe [facility]10-01-2024 NoteW[facility]-25-2024 NoteW[facility]09-25-2024 History of Present illness Narrative* Nahomy Taylor RN - 12/15/2023 4:31 PM EDT QOL Call Tracking Documentation Follow-Up Type: Phone Call Call Attempt: 2nd Attempt Call Status: Left Message documented in this encounterThe [facility]09-20-2024 NoteW[facility]09-20-2024 History of Present illness Narrative* Nahomy Taylor RN - 12/10/2023 11:58 AM EDT QOL Call Tracking Documentation Follow-Up Type: Phone Call Call Attempt: 1st Attempt Call Status: Left Message documented in this encounterThe [facility]09-12-2024 Instructions* Patient Instructions* Alli James APRN.CNP - 12/02/2023 3:53 PM EDT Please clean and pack wounds with calcium alginate every other day. Return to [facility] in two weeks to reassess. Keep BP and Heart Log to monitor. Notify [facility] if any worsening incisional concerns prior to next follow up. documented in this encounterThe [facility]health System09-12-2024 History of Present illness Narrative* Alli James APRN.CNP - 12/02/2023 3:00 PM EDT Images from the original note were not included. [facility] [place] [facility] Department of Cardiovascular Medicine DEPARTMENT OF CARDIAC SURGERY OUTPATIENT VISIT DATE December 02, 2023 OUTPATIENT VISIT TYPE FOLLOW UP Maria Luisa Browning is a 48 year old female who is here for return post op follow up visit. Most recent Cardiac Surgery: S/p on 11/05/2023 [facility] Surgeon: Yasmin Dawson MD Operations : Upper J Hemisternotomy Mechanical AVR (STJ 25mm) and Aortoplasty Surgical Pathology:A. Aorta, partial excision: - Elastic type artery with no significant medial degeneration. B. Aortic valve, excision: - Bicuspid semilunar valve with severe calcification and severe fibrosis (gross diagnosis only). Discharged on 11/11/2023 HPI: patient presents today for wound check. Has been following with local team since discharge. Noted drainage from proximal and mid portion of MSI. Local physician completed culture which is positive for MRSA. Denies any chest pain, sob or lightheadedness. Denies any fever or chills. Allergies: ALLERGIES Allergen Reactions Gluten Intolerance, GI Upset Toradol [Ketorolac * Breathing problems Medications: Current Outpatient Medications Medication Sig aspirin 81 mg chewable tablet Take 1 tablet by mouth once daily. acetaminophen (TYLENOL) 325 mg tablet 2 tablets by ORAL/FEEDING TUBE route every 6 hours as needed (for mild surgical pain). amiodarone (PACERONE) 200 mg tablet Take 1 tablet by mouth two times a day for 7 days, THEN 1 tablet once daily for 28 days. Patient should start on November 12, 2023. furosemide (LASIX) 40 mg tablet Take 1 tablet by mouth once daily for 10 days. lidocaine (SALONPAS) 4 % patch Apply 1-2 Patches as directed once daily. APPLY TO: Chest / BACK - Remove patch after 12 hours. magnesium oxide (MAG-OX) 400 mg (241.3 mg magnesium) tablet Take 1 tablet by mouth two times a day for 10 days. metoprolol succinate ER (TOPROL XL) 100 mg Take 1 tablet by mouth daily with breakfast AND 0.5 tablets daily at bedtime. magnesium oxide (MAG-OX) 400 mg (241.3 mg magnesium) tablet Take 2 tablets by mouth once daily for 10 days. warfarin (COUMADIN) 4 mg tablet Take 1 tablet by mouth daily as directed. docusate sodium (COLACE) 100 mg capsule Take 1 capsule by mouth two times a day. mycophenolate mofetil (CELLCEPT) 250 mg capsule Take by mouth two times a day. rosuvastatin (CRESTOR) 10 mg tablet Take 10 mg by mouth once daily. hydroxychloroquine (PLAQUENIL) 200 mg ORAL tablet Take 200 mg by mouth twice daily. LeveTIRAcetam (KEPPRA) 1,000 mg ORAL tablet one po bid No current facility-administered medications for this visit. Medications and Allergies have been reviewed. Pain scale :Yes incisional. Manageable with prn tylenol Appetite: appetite good Activity: Walking ad noble around the house Elimination: normal, no constipation , urination is normal Sleep: no problems with sleep Incisions/Wounds: open msi Do you feel safe in the home? Yes Alli James APRN.ARTIFICIAL INSEMINATION TECHNICIAN CC: I have two area that are have wholes and positive for MRSA PE: BP 94/64 Pulse 62 Temp 36.7 C (98.1 F) (Oral) Ht 154.9 cm (5' 1) Wt 79 kg (174 lb 3.2 oz) LMP (LMP Unknown) SpO2 99% BMI 32.91 kg/m Appearance: well developed, white female, in no acute distress Cardiac: regular S1, S2, positive mechanical click, No rub Lungs: Clear breath sounds bilaterally without wheeze or dullness Extremities: Edema: RLE 1+ Sternotomy site: healing, clean, dry and intact, Open wound noted on sternotomy Proximal and [id number] x 1cm with 1cm depth with suture material exposed Wound: see above Procedures: MSI wound cleanse, suture exposed removed and wound packed with calcium alginate and dry dressing. Advised to pack every other day. IMPRESSION & PLAN: 1.S/p on 11/05/2023 [facility] Surgeon: Yasmin Dawson MD Operations : Upper J Hemisternotomy Mechanical AVR (STJ 25mm) and Aortoplasty Surgical Pathology:A. Aorta, partial excision: - Elastic type artery with no significant medial degeneration. B. Aortic valve, excision: - Bicuspid semilunar valve with severe calcification and severe fibrosis (gross diagnosis only). Discharged on 11/11/2023 2. Wound infection - MSI with two area open - local PCP culture positive for MRSA and started on Bactrim DS - wounds cleansed and packed with Calcium Alginate every other day - return to [facility] in two weeks to reassess - any worsening incisional concerns to notify [facility]:12/02/2023 REFERRAL (RECOMMENDATION): Cardiothoracic OPD for continued follow-up Electronically Signed By Alli James APRN.ARTIFICIAL INSEMINATION TECHNICIAN In Department: CARDIOTHORACIC Alli James APRN.ARTIFICIAL INSEMINATION TECHNICIAN documented in this encounterThe [facility]09-12-2024 NoteW[facility]09-11-2024 Telephone encounter Note* Telephone Encounter - Gera Shelby RN - 12/01/2023 1:29 PM EDT Images from the original note were not included. [facility] Phone Encounter DATE of SERVICE: 12/01/2023 TIME of SERVICE: 1:29 PM Status: [facility] Service/Provider: Cardiac Surgery Yasmin Dawson M.D. Reason for call: Incisions Contact information: [phone] Resolution: Reinforced education Comments: Patient went to local PCP yesterday and results from her incision site came back positivefor MRSA. Patient started on ABX therapy but was wondering if she should keep her appointment with post-op OPD. Encouraged patient to keep appointment. She agreed. Gera Shelby RN Date of Resolution: 12/01/2023 Time of Resolution 1:29 PM [facility]09-11-2024 Miscellaneous Notes* Telephone Encounter - Gera Shelby RN - 12/01/2023 1:29 PM EDT Images from the original note were not included. [facility] Phone Encounter DATE of SERVICE: 12/01/2023 TIME of SERVICE: 1:29 PM Status: [facility] Service/Provider: Cardiac Surgery Yasmin Dawson M.D. Reason for call: Incisions Contact information: [phone] Resolution: Reinforced education Comments: Patient went to local PCP yesterday and results from her incision site came back positivefor MRSA. Patient started on ABX therapy but was wondering if she should keep her appointment with post-op OPD. Encouraged patient to keep appointment. She agreed. Gera Shelby RN Date of Resolution: 12/01/2023 Time of Resolution 1:29 PM documented in this encounterThe [facility]08-23-2024 Telephone encounter Note * Telephone Encounter - Noris Tan RN - 11/12/2023 11:45 AM EDT 1. Have you noticed any increase in shortness of breath since you left the hospital? no 2. Have you noticed any increased swelling in your feet, ankles, or belly? Skip for vascular pts no 3. Have you gained more than 2-3 pounds since discharge? Skip for vascular & EP pts no 4. Have you noticed any change in your incision, wound, IV sites since you were discharged as we want you to be aware of any signs of infection (fevers, chills, redness, warmth, swelling, increased tenderness, discharge)? no 5. Are you having any increased pain since discharge? If yes: What type of pain and where? (pressure, sharp pain, dull pain, etc.) No 6. Have you had any unplanned trips to the emergency department or hospital since you were discharged? If yes - why? no 7. Did you fill all of the prescribed medications? If no, do you need help filling your prescription? (Figure out why they re not filled) Yes 8. Do you have any questions about your medications? No 9. Do you have a doctor s appointment scheduled or is someone working on getting you a follow-up appointment? Yes Additional Comments: Pt instructed to contact 24-hour nurse hotline [phone] for any questions or concerns. Pt verbalized understanding. PD nurse confirmed/verified patient's and full name. All clear, closing statement given. Noris Tan RN [facility]08-23-2024 Miscellaneous Notes* Telephone Encounter - Noris Tan RN - 11/12/2023 11:45 AM EDT 1. Have you noticed any increase in shortness of breath since you left the hospital? no 2. Have you noticed any increased swelling in your feet, ankles, or belly? Skip for vascular pts no 3. Have you gained more than 2-3 pounds since discharge? Skip for vascular & EP pts no 4. Have you noticed any change in your incision, wound, IV sites since you were discharged as we want you to be aware of any signs of infection (fevers, chills, redness, warmth, swelling, increased tenderness, discharge)? no 5. Are you having any increased pain since discharge? If yes: What type of pain and where? (pressure, sharp pain, dull pain, etc.) No 6. Have you had any unplanned trips to the emergency department or hospital since you were discharged? If yes - why? no 7. Did you fill all of the prescribed medications? If no, do you need help filling your prescription? (Figure out why they re not filled) Yes 8. Do you have any questions about your medications? No 9. Do you have a doctor s appointment scheduled or is someone working on getting you a follow-up appointment? Yes Additional Comments: Pt instructed to contact 24-hour nurse hotline [phone] for any questions or concerns. Pt verbalized understanding. PD nurse confirmed/verified patient's and full name. All clear, closing statement given. Noris Tan RN documented in this encounterThe [facility]08-22-2024 NoteW[facility]08-22-2024 NoteW[facility]08-20-2024 NoteW[facility]08-20-2024 NoteW[facility]08-20-2024 Note [facility]08-19-2024 NoteW[facility]08-19-2024 NoteW[facility]08-19-2024 NoteW[facility] 11-07-2023 NoteW[facility]08-18-2024 NoteW[facility]08-17-2024 NoteW[facility]08-17-2024 NoteW[facility]08-17-2024 NoteHNO ID: [id number] Author: NOTE, INTERFACE, ? Service: ? Author Type: ? Type: Progress Notes Filed: 11/06/2023 03:04 Note Text: Epic Scheduled Downtime: 11/06/2023 1:02:00 AM to 11/06/2023 2:58:00 [facility]08-16-2024 NoteW[facility]08-16-2024 Note [facility]08-16-2024 NoteW[facility]08-16-2024 NoteW[facility]08-16-2024 NoteW[facility] 11-05-2023 NoteW[facility]08-15-2024 NoteW[facility]08-15-2024 History of Present illness Narrative* Beatriz Mcgarry MD - 11/04/2023 1:40 PM EDT Cardiothoracic Anesthesiology Preoperative Assessment Service Date: 11/04/2023 Service Time: 1:40 PM Primary Care Physician: Bhupinder Hamlin MD, MD Subjective Patient Entered Data: 11/02/2023 Cardiothoracic Surgery Pre-Op Questionnaire Previous anesthesia problems No Family history anesthesia problems No Blood consent Yes Esophageal history None Implanted devices No History difficult airway No Airway surgery No Ongoing pain issues No Heparin intolerance No Daily alcohol use No Illicit drug use No Scheduled procedure: Aortic valve surgery Surgeon: Yasmin Dawson Scheduled date: 11/05/2023 HPI: 48 year old female with PMH notable for: - AI - remote history of stroke in (1997) no residuals - seizures (follows with neurology, on keppra) - lupus (aza and hydroxychloroquine) - HLD Pt presents for preoperative evaluation prior to avr. Pt is currently asymptomatic without any chest pain, shortness of breath, recent weight loss, fever, chills, nausea/vomiting, diarrhea. Patient instructed to: - Follow surgical instruction regarding warfarin/ASA therapy - Continue: MMF, keppra, rosuvastatin, imuran, plaquenil (patient told she did not need to stop) - Hold: asa Pt denies any problems with prior anesthetics. We additionally discussed the anesthetic plan, what to expect, and any questions or concerns the patient may have had. Review no known heparin intolerance anticoagulant/antiplatelet medication(s) - Patient is taking anticoagulant and/or antiplatelet medication with plans of stopping medication no non-cardiac IEDs present no known esophageal disorders blood transfusion consented -. A type & screen is resulted and no atypical antibodies identifed COVID-19 Immunization Status Overdue - Covid-19 Vaccine ( season) Overdue since 11/20/2022 02/21/2021 Imm Admin: COVID-19 original vaccine, age 12+ yr, monovalent (PFIZER- BIONTECH - PURPLE TOP) 04/03/2020 Imm Admin: COVID-19 original vaccine, age 12+ yr, monovalent (PFIZER- BIONTECH - PURPLE TOP) 03/13/2020 Imm Admin: COVID-19 original vaccine, age 12+ yr, monovalent (PFIZER- BIONTECH - PURPLE TOP) Only the first 3 history entries have been loaded, but more history exists. The patient has the following: ACTIVE PROBLEM LIST Aortic Valve Disorders Systemic Lupus Erythematosus (Hcc) Other Convulsions Rosacea KERATOSIS PILARIS Cervical Root Lesions Discharge Planning Issues Preop Testing PAST MEDICAL HISTORY No date: Acute, but ill-defined, cerebrovascular disease Comment: TIA 7-8 years ago. 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 No date: Stroke (HCC) No date: Thrombocytopenia, unspecified (HCC) No date: Unspecified essential hypertension Comment: Essential hypertension PAST SURGICAL HISTORY No date: TONSILLECTOMY PRIMARY/SECONDARY <AGE 12 No date: TOTAL ABDOM HYSTERECTOMY No date: TYMPANOSTOMY LOCAL/TOPICAL ANESTHESIA FAMILY HISTORY Problem Relation Age of Onset Diabetes Mother uncle other (cva [Other]) Maternal Grandmother mgf other (ashd [Other]) Maternal Grandfather other (? uterine cancer [Other]) Maternal Grandmother Ischemic Heart Disease Maternal Uncle 59 Social History Tobacco Use Smoking status: Former Packs/day: 1.00 Years: 5.00 Additional pack years: 0.00 Total pack years: 5.00 Types: Cigarettes Quit date: 05/28/2005 Years since quittin.4 Vaping Use Vaping Use: Never used Substance Use Topics Alcohol use: No Comment: rare use Drug use: No Prior to Admission medications as of 11/04/23 1148 Medication Sig Last Dose Taking mycophenolate mofetil (CELLCEPT) 250 mg capsule Take by mouth two times a day. rosuvastatin (CRESTOR) 10 mg tablet Take 10 mg by mouth once daily. azathioprine (IMURAN) 50 mg ORAL tablet Take 50 mg by mouth twice daily. hydroxychloroquine (PLAQUENIL) 200 mg ORAL tablet Take 200 mg by mouth twice daily. LeveTIRAcetam (KEPPRA) 1,000 mg ORAL tablet one po bid ASPIRIN 81 MG TAB Take one(1) tablet daily. No medication comments found. ALLERGIES Allergen Reactions Toradol [Ketorolac * Breathing problems Objective Pain Assessment: Vitals: LMP 07/13/2006 Diagnostic tests reviewed for today's visit: Lab Value Units Date High Low HB 12.7 g/dL 11/03/2023 15.5 11.5 HCT 38.7 % 11/03/2023 46.0 36.0 WBC 4.72 k/uL 11/03/2023 11.00 3.70 PLT 183 k/uL 11/03/2023 400 150 NA 142 mmol/L 11/03/2023 144 136 K 4.5 mmol/L 11/03/2023 5.1 3.7 GLUC 85 mg/dL 11/03/2023 99 74 BUN 16 mg/dL 11/03/2023 21 7 CREAT 1.13 mg/dL 11/03/2023 0.96 0.58 PTSEC 11.6 sec 11/03/2023 13.0 9.7 INR 1.1 no uni* 11/03/2023 1.3 0.9 APTT 47.1 sec 11/03/2023 32.4 23.0 ALT 12 U/L 11/03/2023 38 7 AST 16 U/L 11/03/2023 35 13 TBILI 0.6 mg/dL 11/03/2023 1.3 0.2 TSH No results within date range. Lab Value Units Date High Low HCGQT No results within date range. UHCG No results within date range. HCG, BODY* No results within date range. Lab Value Units Date High Low ABORHD No results within date range. ABSCREEN No results within date range. No results found for: HBA1C Recent Results (from the past 8760 hour(s)) ECG COMPLETE Collection Time: 11/03/23 12:21 PM Impression NORMAL SINUS RHYTHM MINIMAL VOLTAGE CRITERIA FOR LVH, MAY BE NORMAL VARIANT ( Nilson product ) INFERIOR T WAVE ABNORMALITY ANTEROLATERAL T WAVE ABNORMALITY ABNORMAL ECG ECHO Collection Time: 11/03/23 10:14 AM Impression CONCLUSIONS: - Exam indication: & AI - The left ventricle is mildly dilated. There is mild left ventricular hypertrophy. Left ventricular systolic function is normal. EF = 63 5% (2D biplane) Left ventricular diastolic function was not evaluated due to >2+ AI. - The right ventricle is normal in size. Right ventricular systolic function is normal. - The left atrial cavity is mildly dilated. - The visualized aorta is dilated with a maximal dimension of 4.2 cm. - Bicuspid aortic valve. There is severe (3+ - 4+) aortic valve regurgitation due to restricted motion and sclerosis. There is moderately severe aortic valve stenosis caused by calcified valve and restricted opening. AV area is 0.94 cm (0.51 cm /m ) by continuity, VTI. The peak gradient is 57 mmHg, the mean gradient is 32 mmHg and the dimensionless valve index is 0.27. Prior gradients of 19/11 mmHg. - Exam was compared with the prior echocardiographic exam performed on 11/20/2010.since last study, developement of significant aortic stenosis. * * * Final * * * CTA CHEST (GATED) W IVCON Collection Time: 11/03/23 9:54 AM Impression IMPRESSION: AORTIC VALVE: assessment is limited in the current study. -Severe leaflet thickening and calcification. -Incomplete diastolic coaptation, suggesting significant aortic insufficiency. ECTASIA/MILD DILATION AORTIC ROOT AND ASCENDING AORTA. -AORTIC ROOT: 4 x 3.8 cm -ASCENDING THORACIC AORTA: 4.1 x 4.1 cm CORONARY ANATOMY: Mild calcified atherosclerotic changes of the LAD. However, the current study is not optimized for coronary assessment. Pressing Department Supervisor: NOHELIA Transcribe Date/Time: Nov 03 2023 9:56A Dictated by : KENNEDY CANCINO MD This examination was interpreted and the report reviewed and electronically signed by: KENNEDY CANCINO MD on Nov 03 2023 10:29AM EST Assessment No problem-specific Assessment & Plan notes found for this encounter. ANESTHESIA FINDINGS: Intubation History: Patient is a candidate for regional or neuraxial anesthesia Significant Anesthesia Considerations: potential slow emergence Airway History: Prepared for Surgery: optimally prepared for surgery, pending day of surgery. The Following Tests/Procedures Have Been Initiated: Orders Placed This Encounter mupirocin (BACTROBAN) 2 % ointment Sig: Apply a small amount in each nostril using a cotton swab twice the day before surgery and oncethe morning of surgery. Dispense: 22 g Refill: 0 Order Comments: Supply patient with Q-tips and instruction sheet ASA Class: 4 Planned Anesthetic: general I - PHYSICAL EVALUATION AIRWAY Patient intubated: No. Tracheostomy tube not present Mallampati: I. TM distance: >3 FB. Neck ROM: full ROM without neurological symptoms. Mouth opening: adequate. Short neck: no. Thick neck: no DENTAL Normal dental observations. II - ANESTHESIA PLAN ASA Score: 4 Anesthetic Plan: general Airway type: ETT Beta Stacy Monitoring Plan Post Procedure Analgesic Plan Informed Consent Anesthetic risks, benefits, alternatives, personnel and consent discussed: yes. Patient / Responsible [employer] agrees to proceed: yes Patient / Surrogate agrees to blood products: Yes Discussed the possibility of lip / dental damage: yes Instructions Given to Patient: Instructions located in the after visit summary. Patient given verbal and written preop instructions and voices comprehension and compliance. Signature: Beatriz Mcgarry MD Patient Name: Maria Luisa Browning Date: November 04, 2023 Time: 1:40 PM Pager/Contact #: documented in this encounterThe [facility]08-15-2024 Note[facility] History of Present illness Narrative* Yasmin Dawson MD - 11/04/2023 1:09 PM EDT Consult to determine surgery. This patient is seen in consult for cardiovascular disease. I have reviewed the medical history andPFTs, TTE, CT images and other testing. Impression: SLE, brain infarcts and seizures, severe as and ai bicupid valve. Based on my evaluation if this patient undergoes surgery the risk of is 1% Plan: Evaluation for potential surgery. The risks, benefits and anticipated outcomes of a potential procedure versus medical management were reviewed. Discussed the potential for two patients undergoing surgery in two separate rooms (concurrent surgery) but I would be putting the patient on the heart lung machine and taking them off. Discussed that in an emergency a qualified backup surgeon is available and in the rare event of a serious situation, one of my colleagues would also be able to take over. Yasmin Dawson MD, PhD documented in this encounterThe [facility]08-15-2024 Note[facility]08-15-2024 History of Present illness Narrative* Fannie Urena RN - 11/04/2023 11:49 AM EDT AMBULATORY PATIENT EDUCATION READINESS TO LEARN Cognitive Ability: Alert and oriented Motivation To Learn: Interested Family Support: High - Very involved in pt care Instruction Provided To: Patient & Family Patient Learns Best By: Multiple Methods Factors Affecting Learning: None Physical Limitations Affecting Learning: None LEARNING RESPONSE Diagnosis: OHS Education Topic: Pre-Op Open Heart Surgery Instructions Teaching Points: Logistics / Protocols /Complication Prevention How prepared do you feel you are for this visit: 5 Instruction/Supplemental Materials: Cardiac Surgery Information Binder Individual Instruction Patient/Family Response: Well prepared Follow up plan: Patient/Family to call [facility] with any further questions Referral (Recommendation): None Teach completed, topic: PREOP OHS EDUCATION AND INFORMATION documented in this encounterThe [facility]08-15-2024 History and physical note * Fannie Urena RN - 11/04/2023 11:42 AM EDT CHART COPY-DO NOT DISCARD CARDIOVASCULAR SURGERY PRE-OPERATIVE ASSESSMENT NAME: Maria Luisa Browning Alert Notes: DATE: 11/04/2023 SEX: female : 1975 AGE: [age] year old Estimated body mass index is 32.31 kg/m as calculated from the following: Height as of 11/03/23: 154.9 cm (5' 1). Weight as of 11/03/23: 77.6 kg (171 lb). STS Score No data recorded No data recorded Patient scheduled for surgery on: No data recorded [facility] MD: Talha Loza M.D. CHIEF COMPLAINT: Pre-Op Open Heart Surgery MEDICATIONS: Current Outpatient Medications Medication Sig rosuvastatin (CRESTOR) 10 mg tablet Take 10 mg by mouth once daily. azathioprine (IMURAN) 50 mg ORAL tablet Take 50 mg by mouth twice daily. hydroxychloroquine (PLAQUENIL) 200 mg ORAL tablet Take 200 mg by mouth twice daily. LeveTIRAcetam (KEPPRA) 1,000 mg ORAL tablet one po bid ASPIRIN 81 MG TAB Take one(1) tablet daily. No current facility-administered medications for this visit. ALLERGIES: ALLERGIES Allergen Reactions Toradol [Ketorolac * Breathing problems LATEX ALLERGY: No FOOD SENSITIVITIES: No ANTICOAGULANTS: 81 mg ASA 10/30/23 STEROIDS: No HISTORIES: FAMILY HISTORY Problem Relation Age of Onset Diabetes Mother uncle other (cva [Other]) Maternal Grandmother mgf other (ashd [Other]) Maternal Grandfather other (? uterine cancer [Other]) Maternal Grandmother Ischemic Heart Disease Maternal Uncle 59 PAST MEDICAL HISTORY No date: Acute, but ill-defined, cerebrovascular disease Comment: TIA 7-8 years ago. 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 No date: Stroke (HCC) No date: Thrombocytopenia, unspecified (HCC) No date: Unspecified essential hypertension Comment: Essential hypertension PAST SURGICAL HISTORY No date: TONSILLECTOMY PRIMARY/SECONDARY No date: TOTAL ABDOM HYSTERECTOMY No date: TYMPANOSTOMY LOCAL/TOPICAL ANESTHESIA Social History Tobacco Use Smoking status: Former Packs/day: 1.00 Years: 5.00 Additional pack years: 0.00 Total pack years: 5.00 Types: Cigarettes Quit date: 05/28/2005 Years since quittin.4 Vaping Use Vaping Use: Never used Substance Use Topics Alcohol use: No Comment: rare use Drug use: No REVIEW OF SYSTEMS: GEN: Fatigue INTERMITTENT HEENT: Glasses DERM: Denies Dermatological Complaints 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 PERFUSION INDEX: Pacer Check: NA CARDIAC EVALUATION: Cardiac Cath: Date - OSH 09/27/23 Ultrasound: Date - NA PFT: Date - 11/03/23 ECHO: Last ECHO Result Conclusion ECHO Collected: 11/03/2023 10:14 AM (Final result) Impression: CONCLUSIONS: - Exam indication: & AI - The left ventricle is mildly dilated. There is mild left ventricular hypertrophy. Left ventricular systolic function is normal. EF = 63 5% (2D biplane) Left ventricular diastolic function was not evaluated due to >2+ AI. - The right ventricle is normal in size. Right ventricular systolic function is normal. - The left atrial cavity is mildly dilated. - The visualized aorta is dilated with a maximal dimension of 4.2 cm. - Bicuspid aortic valve. There is severe (3+ - 4+) aortic valve regurgitation due to restricted motion and sclerosis. There is moderately severe aortic valve stenosis caused by calcified valve and restricted opening. AV area is 0.94 cm (0.51 cm /m ) by continuity, VTI. The peak gradient is 57 mmHg, the mean gradient is 32 mmHg and the dimensionless valve index is 0.27. Prior gradients of 19/11 mmHg. - Exam was compared with the prior CC echocardiographic exam performed on 11/20/2010.since last study, developement of significant aortic stenosis. * * * Final * * * CT Scan: Last CT Result Conclusion CTA CHEST (GATED) W IVCON Exam End: 11/03/2023 9:54 AM (Final result) Impression: IMPRESSION: AORTIC VALVE: assessment is limited in the current study. -Severe leaflet thickening and calcification. -Incomplete diastolic coaptation, suggesting significant aortic insufficiency. ECTASIA/MILD DILATION AORTIC ROOT AND ASCENDING AORTA. -AORTIC ROOT: 4 x 3.8 cm -ASCENDING THORACIC AORTA: 4.1 x 4.1 cm CORONARY ANATOMY: Mild calcified atherosclerotic changes of the LAD. However, the current study is not optimized for coronary assessment. Pressing Department Supervisor: PSCArsh Transcribe Date/Time: Nov 03 2023 9:56A Dictated by : KENNEDY CANCINO MD This examination was interpreted and the report reviewed and electronically signed by: KENNEDY CANCINO MD on Nov 03 2023 10:29AM EST MRI: CXR: No results found. EKG: Dental: completed dental form seen during tci appt and copy to be scanned into epic ? Recent Labs 11/03/23 1304 WBC 4.72 HB 12.7 HCT 38.7 PLT 183 INR 1.1 APTT 47.1* PTSEC 11.6 NA 142 K 4.5 BUN 16 CREAT 1.13* HCGQT <0.6 Pre Op Instructions per protocol reviewed and handout given to patient . Patient Education completed and documented. Instructed to start Bactroban per protocol. Emotional support provided to patient and family. All questions and concerns adressed. Signature: Fannie Urena RN See Cardiology History and Physical dated 11/03/23 [facility]08-15-20[facility] History and physical note* Fannie Urena RN - 11/04/2023 11:42 AM EDT CHART COPY-DO NOT DISCARD CARDIOVASCULAR SURGERY PRE-OPERATIVE ASSESSMENT NAME: Maria Luisa Browning Alert Notes: DATE: 11/04/2023 SEX: female : 1975 AGE: [age] year old Estimated body mass index is 32.31 kg/m as calculated from the following: Height as of 11/03/23: 154.9 cm (5' 1). Weight as of 11/03/23: 77.6 kg (171 lb). STS Score No data recorded No data recorded Patient scheduled for surgery on: No data recorded [facility] MD: Talha Loza M.D. CHIEF COMPLAINT: Pre-Op Open Heart Surgery MEDICATIONS: Current Outpatient Medications Medication Sig rosuvastatin (CRESTOR) 10 mg tablet Take 10 mg by mouth once daily. azathioprine (IMURAN) 50 mg ORAL tablet Take 50 mg by mouth twice daily. hydroxychloroquine (PLAQUENIL) 200 mg ORAL tablet Take 200 mg by mouth twice daily. LeveTIRAcetam (KEPPRA) 1,000 mg ORAL tablet one po bid ASPIRIN 81 MG TAB Take one(1) tablet daily. No current facility-administered medications for this visit. ALLERGIES: ALLERGIES Allergen Reactions Toradol [Ketorolac * Breathing problems LATEX ALLERGY: No FOOD SENSITIVITIES: No ANTICOAGULANTS: 81 mg ASA 10/30/23 STEROIDS: No HISTORIES: FAMILY HISTORY Problem Relation Age of Onset Diabetes Mother uncle other (cva [Other]) Maternal Grandmother mgf other (ashd [Other]) Maternal Grandfather other (? uterine cancer [Other]) Maternal Grandmother Ischemic Heart Disease Maternal Uncle 59 PAST MEDICAL HISTORY No date: Acute, but ill-defined, cerebrovascular disease Comment: TIA 7-8 years ago. 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 No date: Stroke (HCC) No date: Thrombocytopenia, unspecified (HCC) No date: Unspecified essential hypertension Comment: Essential hypertension PAST SURGICAL HISTORY No date: TONSILLECTOMY PRIMARY/SECONDARY <AGE 11 No date: TOTAL ABDOM HYSTERECTOMY No date: TYMPANOSTOMY LOCAL/TOPICAL ANESTHESIA Social History Tobacco Use Smoking status: Former Packs/day: 1.00 Years: 5.00 Additional pack years: 0.00 Total pack years: 5.00 Types: Cigarettes Quit date: 05/28/2005 Years since quittin.4 Vaping Use Vaping Use: Never used Substance Use Topics Alcohol use: No Comment: rare use Drug use: No REVIEW OF SYSTEMS: GEN: Fatigue INTERMITTENT HEENT: Glasses DERM: Denies Dermatological Complaints 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 PERFUSION INDEX: Pacer Check: NA CARDIAC EVALUATION: Cardiac Cath: Date - OSH 09/27/23 Ultrasound: Date - NA PFT: Date - 11/03/23 ECHO: Last ECHO Result Conclusion ECHO Collected: 11/03/2023 10:14 AM (Final result) Impression: CONCLUSIONS: - Exam indication: & AI - The left ventricle is mildly dilated. There is mild left ventricular hypertrophy. Left ventricular systolic function is normal. EF = 63 5% (2D biplane) Left ventricular diastolic function was not evaluated due to >2+ AI. - The right ventricle is normal in size. Right ventricular systolic function is normal. - The left atrial cavity is mildly dilated. - The visualized aorta is dilated with a maximal dimension of 4.2 cm. - Bicuspid aortic valve. There is severe (3+ - 4+) aortic valve regurgitation due to restricted motion and sclerosis. There is moderately severe aortic valve stenosis caused by calcified valve and restricted opening. AV area is 0.94 cm (0.51 cm /m ) by continuity, VTI. The peak gradient is 57 mmHg, the mean gradient is 32 mmHg and the dimensionless valve index is 0.27. Prior gradients of 19/11 mmHg. - Exam was compared with the prior echocardiographic exam performed on 11/20/2010.since last study, developement of significant aortic stenosis. * * * Final * * * CT Scan: Last CT Result Conclusion CTA CHEST (GATED) W IVCON Exam End: 11/03/2023 9:54 AM (Final result) Impression: IMPRESSION: AORTIC VALVE: assessment is limited in the current study. -Severe leaflet thickening and calcification. -Incomplete diastolic coaptation, suggesting significant aortic insufficiency. ECTASIA/MILD DILATION AORTIC ROOT AND ASCENDING AORTA. -AORTIC ROOT: 4 x 3.8 cm -ASCENDING THORACIC AORTA: 4.1 x 4.1 cm CORONARY ANATOMY: Mild calcified atherosclerotic changes of the LAD. However, the current study is not optimized for coronary assessment. Pressing Department Supervisor: NOHELIA Transcribe Date/Time: Nov 03 2023 9:56A Dictated by : KENNEDY CANCINO MD This examination was interpreted and the report reviewed and electronically signed by: KENNEDY CANCINO MD on Nov 03 2023 10:29AM EST MRI: CXR: No results found. EKG: Dental: completed dental form seen during tci appt and copy to be scanned into epic ? Recent Labs 11/03/23 1304 WBC 4.72 HB 12.7 HCT 38.7 PLT 183 INR 1.1 APTT 47.1* PTSEC 11.6 NA 142 K 4.5 BUN 16 CREAT 1.13* HCGQT <0.6 Pre Op Instructions per protocol reviewed and handout given to patient . Patient Education completed and documented. Instructed to start Bactroban per protocol. Emotional support provided to patient and family. All questions and concerns adressed. Signature: Fannie Urena RN See Cardiology History and Physical dated 11/03/23 documented in this encounterThe [facility]08-14-2024 History of Present illness Narrative* Anabella Gonzalez RT(R) - 11/03/2023 5:50 PM EDT Radiology Service Progress Note PATIENT NAME: Maria Luisa Browning DATE OF SERVICE: November 03, 2023 TIME: 6:54 PM PATIENT IDENTITY VERIFICATION COMPLETED USING TWO (2) IDENTIFIERS: Name and Date of confirmedby patient verbally. FALL SCREENING: Has the patient had 2 falls in the last year or 1 fall with injury or currently using an Ambulatory Assistive Device (Walker, Cane, Wheelchair, Crutches, etc.)? No PATIENT GENDER DATA: Female. status: : No status: NO. 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 Author Type: Registered Resp Therapist Type: Progress Notes Filed: 11/03/2023 13:34 Note Text: PULM FUNCTION: Provider: Yasmin Dawson MD Spirometry: 1 [facility] History of Present illness Narrative * Rosalina Ramos RRT - 11/03/2023 1:32 PM EDT PULM FUNCTION: Provider: Yasmin Dawson MD Spirometry: 1 DLCO: 1 documented in this encounterThe [facility]08-14-2024 History of Present illness Narrative* Blossom Ramos RN - 11/03/2023 9:00 AM EDT Radiology Service Progress Note DATE OF SERVICE: November 03, 2023 TIME: 9:38 AM PATIENT WEIGHT: 174LBS PATIENT IDENTITY VERIFICATION COMPLETED USING TWO (2) STANDARD IDENTIFIERS: Name and Date of confirmed by patient verbally and Name and Date of confirmed by identification band. FALL SCREENING: Has the patient had 2 falls in the last year or 1 fall with injury or currently using an Ambulatory Assistive Device (Walker, Cane, Wheelchair, Crutches, etc.)? No PATIENT GENDER DATA: Female. status: : No status: NO. ALLERGIES: Reviewed and unchanged CONTRAST ALLERGY: No EXAM: CT -CONTRAST INDUCED NEPHROPATHY RISK FACTORS: Not applicable CREATININE: Creatinine Date Value Ref Range Status 12/25/2008 0.76 0.70 - 1.40 mg/dL Final 07/11/2008 0.79 0.70 - 1.40 mg/dL Final 06/03/2006 0.8 0.7 - 1.4 mg/dL Final eGFR-All Other Races Date Value Ref Range Status 12/25/2008 >60 . Final Comment: eGFR (Estimated GFR) Units of measure: mL/min/1.73 meters squared eGFR is derived from the reexpressed MDRD Study equation using the following parameters: serum creatinine, age, gender and race. The creatinine assay has been calibrated to be traceable to IDMS. An eGFR <60 mL/min/1.73m2 for >3 months is consistent with chronic kidney disease. Refer to KDOQI guidelines for clinical interpretation. eGFR- Date Value Ref Range Status 12/25/2008 >60 Final P.O.C.T. RESULTS: N/A November 03, 2023 TREATMENT: N/A IV SITE: Ambulatory: A peripheral IV was started in the Right antecubital site with a Angio cath: 20 gauge. IV SITE APPEARANCE: Clean,Dry and Intact SIGNATURE: Blossom Ramos RN PATIENT NAME: Maria Luisa Browning DATE: November 03, 2023 TIME: 9:38 AM * Mary Manzano RT(R) - 11/03/2023 9:00 AM EDT Radiology Service Progress Note PATIENT NAME: Maria Luisa Browning DATE OF SERVICE: November 03, 2023 TIME: 9:49 AM PATIENT IDENTITY VERIFICATION COMPLETED USING TWO (2) IDENTIFIERS: Name and Date of confirmedby patient verbally and Name and Date of confirmed by identification band. FALL SCREENING: Has the patient had 2 falls in the last year or 1 fall with injury or currently using an Ambulatory Assistive Device (Walker, Cane, Wheelchair, Crutches, etc.)? No PATIENT GENDER DATA: Female. status: : No status: NO. PATIENT RELEVANT IMPLANT DATA REVIEWED: Yes PATIENT PRESENTS WITH AN IMPLANTABLE OR ATTACHED PICKING MACHINE OPERATOR HELPER: No RADIOLOGY DEPARTMENT: CT; Exam(s) Completed: Cardiac PERIPHERAL IV DATA: Site assessment: Clean,Dry and Intact, Site disposition Discontinued SIGNED BY: RT Osito(R) November 03, 2023 9:49 AM documented in this encounterThe [facility]08-14-2024 [facility]-20[facility] NoteW[facility]08-14-2024 History of Present illness Narrative* Talha Loza MD - 11/03/2023 7:12 AM EDT Images from the original note were not included. [facility] Department of Cardiovascular Medicine SECTION OF CLINICAL CARDIOLOGY OUTPATIENT VISIT DATE November 03, 2023 OUTPATIENT VISIT TYPE CONSULTATION PRIMARY CARE PHYSICIAN: MD Zamzam Daly E DANN [address] [address] REFERRING PHYSICIAN: Yasmin Dawson [address] [facility] [address] CHIEF COMPLAINT: Here for surgery HISTORY OF PRESENT ILLNESS: Ms. Browning is a very pleasant 48-year-old woman who was seen in the cardiology clinic for assessment prior to planned elective aortic valve replacement. She has a history of a remote stroke during 1997 [no residual deficits], seizure disordersince the age of 22 [frequency is about once every 2 years]. She is treated with Keppra and followswith a local neurologist. She also has a history of SLE [treated with azathioprine and hydroxychloroquine], follows locally. States that this is under control. Echocardiography at [facility] in 1998 demonstrated a bicuspid aortic valve with 3-4+ AI, mild aortic stenosis and some concern for lupus related Libman-Sacks changes on the valves. She was followed intermittently at [facility]. [facility] in 2006 reported a normal left ventricle, functional bicuspid aortic valve 3-4+ AI and mild aortic stenosis. She was asymptomatic and followed with intermittent echocardiographic surveillance at [facility] until 2010. States that she has subsequently followed with a local heel coverer machine operator [Dr. Solorzano]. Her most recent echocardiogram reported to show a bicuspid aortic valve with severe aortic stenosis with 1-2+ AI. Coronary angiography with no significant epicardial CAD. Her heel coverer machine operator recommended aortic valve replacement and she was referred to see Dr. Dawson. 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 Reports some symptoms of fatigue and tiredness for the past 2 years. No angina. No orthopnea, PND or edema. No symptoms of exertional lightheadedness dizziness presyncope or syncope. Denies palpitations. NURSING INTAKE: Ms. Browning is a 48 year old female from [place], [place], here today for cardiovascular evaluation related to aortic valve stenosis and insufficiency. She is currently scheduled for AVR with Dr. Dawson 11/05/23. Maria Luisa has a significant medical history of HTN, stroke, SLE, epilepsy, and aortic valve disease. She reports the following symptoms: none at this time. PAST MEDICAL HISTORY No date: Acute, but ill-defined, cerebrovascular disease Comment: TIA 7-8 years ago. 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 No date: Stroke (HCC) No date: Thrombocytopenia, unspecified (HCC) No date: Unspecified essential hypertension Comment: Essential hypertension PAST SURGICAL HISTORY No date: TONSILLECTOMY PRIMARY/SECONDARY <AGE 11 No date: TOTAL ABDOM HYSTERECTOMY No date: TYMPANOSTOMY LOCAL/TOPICAL ANESTHESIA SOCIAL HISTORY Social History Tobacco Use Smoking status: Former Packs/day: 1.00 Years: 5.00 Additional pack years: 0.00 Total pack years: 5.00 Types: Cigarettes Quit date: 05/28/2005 Years since quittin.4 Vaping Use Vaping Use: Never used Substance Use Topics Alcohol use: No Comment: rare use Drug use: No FAMILY HISTORY Problem Relation Age of Onset Diabetes Mother uncle other (cva [Other]) Maternal Grandmother mgf other (ashd [Other]) Maternal Grandfather other (? uterine cancer [Other]) Maternal Grandmother Ischemic Heart Disease Maternal Uncle 59 ALLERGIES: ALLERGIES Allergen Reactions Toradol [Ketorolac * Breathing problems MEDICATIONS: rosuvastatin (CRESTOR) 10 mg tablet Take 10 mg by mouth once daily. ASPIRIN 81 MG TAB Take one(1) tablet daily. azathioprine (IMURAN) 50 mg ORAL tablet Take 50 mg by mouth twice daily. hydroxychloroquine (PLAQUENIL) 200 mg ORAL tablet Take 200 mg by mouth twice daily. LeveTIRAcetam (KEPPRA) 1,000 mg ORAL tablet one po bid REVIEW OF SYSTEMS: positives in bold GENERAL: Negative for: Weight loss or gain, Fever or Chills, Weakness and Sleep difficulties. HEENT: Negative for: Headache, Impaired Vision, Glasses, Hearing Impairment, Ringing in Ears, Nosebleeds, Poor dental care, Bleeding Gums, Dentures NECK: Negative for: Swelling, Pain, Stiffness RESPIRATORY: Negative for: Cough, Blood in Sputum, Shortness of breath, Wheezing, Apnea GASTROINTESTINAL: Negative for: Trouble swallowing, Heartburn, Change in bowel habits, Blood in stool, Dark black stools MUSCULOSKELETAL: Negative for: Muscle or joint pain, Stiffness , Joint swelling NEUROLOGIC/PSYCHIATRIC: Negative for: Weakness, Paralysis, Numbness, Tingling, Tremor, Nervousness,Depressed mood, Memory loss SKIN: Negative for: Rashes, Itching HEMATOLOGICAL/LYMPHATIC: Negative for: Easy bruising , Easy bleeding ENDOCRINE: Negative for: Heat or cold intolerance, Excessive sweating, Frequent urination, Frequentthirst PHYSICAL EXAMINATION: BP 115/81 (BP Site: Right Arm, BP Position: Sitting) Pulse 81 Ht 154.9 cm (5' 1) Wt 77.6 kg (171 lb) LMP 07/13/2006 SpO2 98% BMI 32.31 kg/m General: Well appearing, in no acute distress. Skin: No clubbing. No cyanosis. Neck: Supple, JVP normal Lungs: Clear to auscultation bilaterally. Heart: Regular rhythm. PMI 5th ICS LMCL, S1nl, S2 soft. 3/6 TIAGO, 2/6 EDM Extremities: No peripheral edema bilaterally. Grade 4/4 distal pulses bilaterally. Neuro: Oriented x3, alert, cooperative, gait coordinated. CARDIOVASCULAR MEDICINE TESTING: ECG 11/03/23 OSH - CARDIAC CATH 09/27/23 OSH - ECHO 09/15/23 ECHO - CONCLUSIONS: - Exam indication: & AI - The left ventricle is mildly dilated. There is mild left ventricular hypertrophy. Left ventricular systolic function is normal. EF = 63 5% (2D biplane) Left ventricular diastolic function was not evaluated due to >2+ AI. - The right ventricle is normal in size. Right ventricular systolic function is normal. - The left atrial cavity is mildly dilated. - The visualized aorta is dilated with a maximal dimension of 4.2 cm. - Bicuspid aortic valve. There is severe (3+ - 4+) aortic valve regurgitation due to restricted motion and sclerosis. There is moderately severe aortic valve stenosis caused by calcified valve and restricted opening. AV area is 0.94 cm (0.51 cm /m ) by continuity, VTI. The peak gradient is 57 mmHg, the mean gradient is 32 mmHg and the dimensionless valve index is 0.27. Prior gradients of 19/11 mmHg. - Exam was compared with the prior echocardiographic exam performed on 11/20/2010.since last study, developement of significant aortic stenosis. CT - IMPRESSION: AORTIC VALVE: assessment is limited in the current study. -Severe leaflet thickening and calcification. -Incomplete diastolic coaptation, suggesting significant aortic insufficiency. ECTASIA/MILD DILATION AORTIC ROOT AND ASCENDING AORTA. -AORTIC ROOT: 4 x 3.8 cm -ASCENDING THORACIC AORTA: 4.1 x 4.1 cm CORONARY ANATOMY: Mild calcified atherosclerotic changes of the LAD. However, the current study is not optimized for coronary assessment. IMPRESSION / RECOMMENDATIONS: 1. Bicuspid aortic valve with severe AI, moderately severe aortic stenosis. Dilated LV with overallnormal LV systolic function. No significant epicardial CAD by coronary angiography. Mild associatedaortic ectasia [root 4 cm, ascending aorta 4.1 cm]. She is being followed regularly with a local heel coverer machine operator who referred her to Dr. Dawson for aortic valve replacement. Reports mild fatigue - Continue preoperative workup - Consult with CT surgery [Dr. Dawson] later today to determine surgical candidacy and plan CONTACT INFORMATION: Crystal Campoverde and Klaudia Schmid Department of Cardiovascular Medicine Heart and [facility] [place] [facility] Desk [id number] [place] [address] Office - [phone] extension [phone] Office Appointments: [phone] extension [phone] documented in this encounterThe [facility]08-05-[facility]24 [facility] History of Present illness Narrative* Dutch Faith MD - 10/25/2023 5:53 PM EDT [facility] Patient Name: Maria Luisa Browning Date of : 1975 Referring Provider: Yasmin aDwson [address] [place] [address] ESTABLISHED EPILEPSY CLINIC NOTE 10/25/2023 2:20 PM Reason for Visit: Epilepsy, Seizures, and New Patient Clinical Summary: Ms. Browning is a 48 year old right-handed female seen in [facility]. We had a visit using: [employer] I received consent from the patient to perform the visit using this platform. I have communicated my name and active licensure. The patient's identity and physical location wereverified at the time of this visit. Either the patient or their legal outside energy sales representatives has been informed of the risks and benefit of - and alternatives to - treatment through a remote evaluation and consents to proceed with the evaluation remotely. There is no one accompanying the patient during today's visit. EPILEPSY CLASSIFICATION Right Parietal Lobe Epilepsy Seizures: 1. Aura (, dizziness) -> Generalized Tonic-Clonic Seizure Etiology: Vascular disorder (Cerebral infarction / stroke) Associated Conditions: - Systemic : Lupus. Previous Neurosurgery: None HISTORY OF PRESENT ILLNESS Handedness: right-handed Age of onset: 22 years Seizure History and Evolution Patient not sure why she was referred to epilepsy as she has a local neurologist that has been managing her seizures. She is scheduled to get a valve replacement surgery (open heart) this month and was scheduled to see neurology prior to her surgery. She has a history of lupus and celiac disease. She has a history of stroke during in 1997 - she had symptoms of dysarthria and has recovered from the stroke. Seizures began in 1997 at the age of 22. She continues to have seizures every once in a while. She has 1 seizure per year or one every couple years. Her last seizure was about 8-9 months and occurred out of sleep. Her told her that she had a seizure. When she is awake she gets an aura of dizziness and then loses consciousness. She is for the most part amnestic of her seizures and can not provide a history. She is on Keppra 1000 mg BID. She has a local neurologist in [place]. Observers (sister) describes seizures as generalized motor. She has said at least on one occasion that she felt dizzy before the seizure. Most seizures are at night. In nine years she has had 8-9 episodes in total. On two or three occasions she may have clustered with 2 seizures during a severalhour period (she had 1 seizure, went to ER came back home about 2 hours later and had another seizure). Typical seizure duration about 30 seconds to 2 minutes. She has had episodes of dizziness and blurring vision, gets this frequently lasting 30 seconds to aminute. She has no issues in regards to sleep. Postictal symptoms include: Confusion, frustrated Possible lateralizing signs by history: None and Early Development: Normal Possible associated triggers: 3 seizures after and then 2-3 after missing a medication dose. RISK FACTORS FOR SEIZURES: 1. Head Trauma (no) 2. 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 Family History of Seizures (no) 4. Developmental Delay (no) 5. Febrile Seizures (no) 6. 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 FRUIT OR NUT FARM WORKER Vascular Disease (yes, question of stroke: in 1997 while she was , family took her to ED that she had a seizure because of problems with speech possibly dysarthria, but do not recall if any other symptoms, but this duration is unclear; lupus vs antiphospholipid syndrome) 8. 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 [place] CURRENT OUTPATIENT ANTISEIZURE MEDICATIONS (as of the start of the encounter) LeveTIRAcetam (KEPPRA) 1,000 mg ORAL tablet one po bid Prior Anti-seizure Therapies: Trial Adequacy: Max Daily Dose Achieved: Side Effects: Effectiveness: Comments: Gabapentin Levetiracetam Comorbidities: Episode Description: Patient Entered Data: EPILEPSY SCORE 10/24/2023 3:44 PM 10/24/2023 3:44 PM 10/24/2023 3:43 PM First answer obtained - 10/24/2023 3:38 PM PHQ-9 SCORE - - - - CRISTIANE 2 SCORE 0 [Negative Anxiety Screen] - - - CRISTIANE 7 SCORE - - - - QOLIE-10 SCORE (0=worst; 100=best QoL - higher scores represent better function) - - - LSSS SCORE (0- no seizures 100- most severe possible seizures) - - - - C-SSRS SCREEN - - - - On average, how many hours of sleep do you get in a 24-hour period? - 8 - - PROMIS Sleep Disturbance T-SCORE - - - 48 [within normal limits] Have you been diagnosed with Sleep Apnea? 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 Date of report: 07/23/2006 Nonspecific white matter findings as described above. Small foci of abnormal T2 signal and probable encephalomalacialeft parietal lobe, right occipital lobe and right inferiorcerebellum. Findings would be concerning for areas of priorinfarct or ischemia. The presence of cortical infarcts andnonspecific white matter findings raises potential concern for vasculitis related to the patient's known history of lupus. Correlation with clinical history is recommended. There are a fewsmall flow voids in adjacent to the focal area of encephalomalacia within the left parietal lobe. Findings likely reflect normal cortical vascular structures. A subtle vascular abnormality inthis region cannot absolutely be excluded but is felt relatively unlikely given the overall appearance. Please see findings for further details. Routine EEG performed today was normal. Other caregivers: Primary Care Provider: Bhupinder Hamlin MD, MD Current Outpatient Medications Medication Sig lisinopril (PRINIVIL) 10 mg tablet Take 1 tablet by mouth once daily. azathioprine (IMURAN) 50 mg ORAL tablet Take 50 mg by mouth twice daily. hydroxychloroquine (PLAQUENIL) 200 mg ORAL tablet Take 200 mg by mouth twice daily. ergocalciferol, vitamin D2, (VITAMIN D) 50,000 unit ORAL capsule Take 50,000 Units by mouth once each week. LeveTIRAcetam (KEPPRA) 1,000 mg ORAL tablet one po bid ASPIRIN 81 MG TAB Take one(1) tablet daily. No current facility-administered medications for this visit. ALLERGIES Allergen Reactions Toradol [Ketorolac * Breathing problems PAST MEDICAL HISTORY No date: Acute, but ill-defined, cerebrovascular disease Comment: TIA 7-8 years ago. 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 No date: Stroke (HCC) No date: Thrombocytopenia, unspecified (HCC) No date: Unspecified essential hypertension Comment: Essential hypertension PAST SURGICAL HISTORY No date: TONSILLECTOMY PRIMARY/SECONDARY <AGE 11 No date: TYMPANOSTOMY LOCAL/TOPICAL ANESTHESIA FAMILY HISTORY Problem Relation Age of Onset Diabetes Mother uncle other (cva [Other]) Maternal Grandmother mgf other (ashd [Other]) Maternal Grandfather other (? uterine cancer [Other]) Maternal Grandmother Ischemic Heart Disease Maternal Uncle 59 SOCIAL HISTORY: -Lives in [place], [place] -Patient lives alone? 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 Yes Review of Systems VITAL SIGNS: LMP 07/13/2006 General Examination: General Exam Neurological Exam IMPRESSION: Seizures since 1997 after an ischemic stroke in the setting of a . History of Lupus and celiac disease. MRI with a right parietal occipital encephalomalacia. Seizures well controlled on Keppra 1000 mg BID. No contraindication for open heart surgery from an epilepsy standpoint. Recommended continuing Keppra at the same dose. She will follow-up with her local neurologist. PLAN: Education Patient was given my clinic contact information. It is reasonable for the patient to continue driving based on good compliance with antiseizure medication and current seizure control. Medical Management Continue current medications. Prescriptions not needed at this time. I discussed the risks, benefits and alternatives of the medical plan with the patient. Questions were answered. The patient agreed with the plan as discussed. FOLLOW-UP: No follow-ups on file. I spent a total of 60 minutes on the date of the service which included: [id number] patient care preparing to see the patient completing clinical documentation obtaining and/or reviewing separately obtained history performing a medically appropriate examination counseling and educating the patient/family/caregiver ordering medications, tests, or procedures Dutch Faith MD cc: Primary Care Physician: Bhupinder Hamlin MD, MD [address] [facility] [place] [address] [facility] [address] Referring: Yasmin Dawson [address] [facility] [address] Patient: Ms. Maria Luisa Browning [address] [facility] [id number] documented in this encounterThe [facility] System07-18-2024 Miscellaneous Notes* Telephone Encounter - Petty Kumar RN - 10/07/2023 2:40 PM EDT Scheduling plan: 11/03/23 - Cardiology, testing. 11/04/23 - [facility], Dr. Dawson. 11/05/23 - OR. *Please mail dental form. Dr. Dawson has reviewed the available records and is offering surgery. Spoke with patient and shereports she would like to proceed. She declined the soonest available option and accepted an OR date as above. Instructed patient to hold all OTC medications, vitamins, supplements, NSAIDs and anticoagulation 5 days before surgery. Discussed dental clearance and patient will obtain locally. Also discussed anticipated testing and appointments. Patient verbalized understanding of all above. Petty Kumar RN Cardiac Surgery PreOp Checklist Patient Name: Maria Luisa Browning OR Surgery Date: 11/05/23 [facility] Appt. Date: 11/04/23 Primary Care Provider: Bhupinder Hamlin MD, MD Definition Comments Diabetes/Insulin Pump A1-c and Endo consult (need for pump pt) n/a Hypothyroid/thyroid nodules TSH/US of thyroid if new nodule n/a Stroke (CVA) Neurology consult n/a Dysphagia, stricture w/no recent dilation, Lu's Esophagus GI consult n/a Von Willebrand/thrombocytopenia/ Blood... Hematology consult n/a Abnormal labs from outside Place any necessary consults n/a Cardiac Cath Correct birthday/include all images/moving if outside cath On file Redo OHS/Robotic surgery/radiation to chest CT or CTA/if outside CT will need in-house CXR, CardiacMRI Ordered Mechanical valve Admit for Heparin/Lovenox bridge n/a Female <50 y/o HCG Ordered Heparin allergy hx of HIT Vascular Medicine consult n/a Nickel/Metal allergy Dermatology consult n/a Breast implants/Robotic candidates Plastic Surgery consult n/a Urinary strictures Urology consult/Urology consult to OR n/a All stimulators/spinal stimulator Type of stimulator n/a PPM/AICD Device check n/a Valve/TAVR/TEVAR/Myectomy/ascending aorta Dental clearance/Dental Consult at [facility] n/a CABG surgery with previous CABG/varicose vein/vein stripping Leg vein mapping n/a LMT disease > 30% or Carotid Bruits Carotid ultrasound n/a Descending Aneurysm/TEVAR/TAA Pre-admit/hydration/spinal drain to be placed: IR/OR/Not Needed n/a Dialysis patient IHD day prior to [facility] n/a CABG with no ECHO results Discussion w/surgeon results for dental clearance: preop/postop n/a Advanced Directives Instructions given to patient Discussed FMLA Forward to AA Discussed Test/Consult not needed Communicate in Epic or Access n/a Record of decreased PFTs, known lung disease Any pulmonary consult n/a Pulmonary embolectomy Needs US/Duplex BLE, VQ scan RHC, possible LHC, Pulmonary and/or Vascular consult n/a Abnormal CT All>1cm if further workup/consult needed n/a CC-Bio Repostitory Notification of packet and general knowledge given to pt Discussed * Telephone Encounter - Petty Kumar RN - 10/07/2023 6:49 AM EDT Chart reviewed by Dr. Dawson, back to NPM to call patient. Petty Kumar RN * Telephone Encounter - Petty Kumar RN - 10/05/2023 7:05 AM EDT NPM has reviewed the chart. To Dr. Dawson for surgeon review. Petty Kumar RN * Telephone Encounter - Marisela Kline - 10/04/2023 2:10 PM EDT 09/27/23 - pt referred by Dr. Callowayori to Dr. Dawson. Images pushed over. Recvd recs & ins documented in this encounterThe [facility] System07-18-2024 Telephone encounter Note * Telephone Encounter - Petty Kumar RN - 10/07/2023 2:40 PM EDT Scheduling plan: 11/03/23 - Cardiology, testing. 11/04/23 - [facility], Dr. Dawson. 11/05/23 - OR. *Please mail dental form. Dr. Dawson has reviewed the available records and is offering surgery. Spoke with patient and shereports she would like to proceed. She declined the soonest available option and accepted an OR date as above. Instructed patient to hold all OTC medications, vitamins, supplements, NSAIDs and anticoagulation 5 days before surgery. Discussed dental clearance and patient will obtain locally. Also discussed anticipated testing and appointments. Patient verbalized understanding of all above. Petty Kumar RN Cardiac Surgery PreOp Checklist Patient Name: Maria Luisa Browning OR Surgery Date: 11/05/23 [facility] Appt. Date: 11/04/23 Primary Care Provider: Bhupinder Hamlin MD, MD Definition Comments Diabetes/Insulin Pump A1-c and Endo consult (need for pump pt) n/a Hypothyroid/thyroid nodules TSH/US of thyroid if new nodule n/a Stroke (CVA) Neurology consult n/a Dysphagia, stricture w/no recent dilation, Lu's Esophagus GI consult n/a Von Willebrand/thrombocytopenia/ Blood... Hematology consult n/a Abnormal labs from outside Place any necessary consults n/a Cardiac Cath Correct birthday/include all images/moving if outside cath On file Redo OHS/Robotic surgery/radiation to chest CT or CTA/if outside CT will need in-house CXR, CardiacMRI Ordered Mechanical valve Admit for Heparin/Lovenox bridge n/a Female <50 y/o HCG Ordered Heparin allergy hx of HIT Vascular Medicine consult n/a Nickel/Metal allergy Dermatology consult n/a Breast implants/Robotic candidates Plastic Surgery consult n/a Urinary strictures Urology consult/Urology consult to OR n/a All stimulators/spinal stimulator Type of stimulator n/a PPM/AICD Device check n/a Valve/TAVR/TEVAR/Myectomy/ascending aorta Dental clearance/Dental Consult at [facility] n/a CABG surgery with previous CABG/varicose vein/vein stripping Leg vein mapping n/a LMT disease > 30% or Carotid Bruits Carotid ultrasound n/a Descending Aneurysm/TEVAR/TAA Pre-admit/hydration/spinal drain to be placed: IR/OR/Not Needed n/a Dialysis patient IHD day prior to [facility] n/a CABG with no ECHO results Discussion w/surgeon results for dental clearance: preop/postop n/a Advanced Directives Instructions given to patient Discussed FMLA Forward to AA Discussed Test/Consult not needed Communicate in Epic or Access n/a Record of decreased PFTs, known lung disease Any pulmonary consult n/a Pulmonary embolectomy Needs US/Duplex BLE, VQ scan RHC, possible LHC, Pulmonary and/or Vascular consult n/a Abnormal CT All>1cm if further workup/consult needed n/a CC-Bio Repostitory Notification of packet and general knowledge given to pt Discussed [facility]07-18-2024 Telephone encounter Note* Telephone Encounter - Petty Kumar RN - 10/07/2023 6:49 AM EDT Chart reviewed by Dr. Dawson, back to NPM to call patient. Petty Kumar RN [facility]07-16-2024 Telephone encounter Note* Telephone Encounter - Petty Kumar RN - 10/05/2023 7:05 AM EDT NPM has reviewed the chart. To Dr. Dawson for surgeon review. Petty Kumar RN [facility]07-15-2024 Telephone encounter Note* Telephone Encounter - Marisela Kline - 10/04/2023 2:10 PM EDT 09/27/23 - pt referred by Dr. Callowayori to Dr. Dawson. Images pushed over. Recvd recs & ins [facility]11-01-2022 Evaluation + Plan note Future Scheduled Tests Radiology* XR Abdomen Series w/ Chest 1 View 01/20/22 [facility] 10-03-2022 Hospital Discharge instructions Patient Education 12/22/2021 16:38:19 1-SDS Discharge Instructions Template (12/2017) ([facility] SAME DAY SURGERY DISCHARGE INSTRUCTIONS PLEASE FOLLOW THE INSTRUCTIONS BELOW MARKED WITH AN X: _x__ Regular Diet: Start with clear liquids, then soup and crackers and gradually add other foods. _x__ Drink extra fluids. ___ Special Diet Instructions: ___ ACTIVITY: _x__ Avoid stress to suture line. Since you have had an anesthetic, it would be advisable not to drive, drink alcohol, or make major decisions over the next 24 hours. You may require more rest tonight and tomorrow. ___ May resume regular activity as tolerated. ___ Restrict activity as follows: ___ ___ Walk Only ___ ___ Do not go up and down stairs. ___ Do not ride in car until ___ ___ Do not drive car. _x__ Do not have sexual intercourse. _x__ No heavy lifting, pushing or straining. _x__ Other: __Follow Dr Cervantes's written and verbal discharge instructions._ BATHING/SHOWERING: ___ Sponge bathe until office visit. ___ Sitting in tub of warm water may relieve discomfort. _x__ NO tub bathe _x__ May shower ___ On day after surgery sit in tub of warm water to soak off dressing. DRESSING: ___ Keep operative area dry and clean for ___ ___ Check the operative area for signs of bleeding. Apply pressure to the bleeding site if necessary and call your physician. ___ Change dressing as necessary using sterile dressing material or bandaid. ___ Reinforce dressing as necessary. ___ Change and care for wound as follows: ___ ___ Wear bra for ___ days following breast surgery for comfort. ___ Change drip pad as needed. ___ Wear scrotal support for comfort. WATCH FOR SIGNS OF INFECTION: (Usually appears 36-48 hours after surgery) Increased temperature (101 degrees Fahrenheit or higher) Redness or swelling Increased pain Foul odor or drainage. If you have any questions, please call your doctor at the number listed on your follow up instructions. Follow all instructions given to you by your physician. Please complete and return the survey you will be receiving in the mail to help us better serve our patients. Form: [id number] ([id number]) R: 06/2812/22/2021 16:34:16 Total Laparoscopic Hysterectomy, Care After Total Laparoscopic Hysterectomy, Care After This sheet gives you information about how to care for yourself after your procedure. Your health care provider may also give you more specific instructions. If you have problems or questions, contact your health care provider. What can I expect after the procedure? After the procedure, it is common to have: Pain and bruising around your incisions. A sore throat, if a breathing tube was used during surgery. Fatigue. Poor appetite. Less interest in sex. If your ovaries were also removed, it is also common to have symptoms of menopause such as hot flashes, night sweats, and lack of sleep (insomnia). Follow these instructions at home: Bathing Do not take baths, swim, or use a hot tub until your health care provider approves. You may need toonly take showers for 2 3 weeks. Keep your bandage (dressing) dry until your health care provider says it can be removed. Incision care Follow instructions from your health care provider about how to take care of your incisions. Make sure you: ?Wash your hands with soap and water before you change your dressing. If soap and water are not available, use hand pilot plant research technician. ?Change your dressing as told by your health care provider. ?Leave stitches (sutures), skin glue, or adhesive strips in place. These skin closures may need to stay in place for 2 weeks or longer. If adhesive strip edges start to loosen and curl up, you may trim the loose edges. Do not remove adhesive strips completely unless your health care provider tells you to do that. Check your incision area every day for signs of infection. Check for: ?Redness, swelling, or pain. ?Fluid or blood. ?Warmth. ?Pus or a bad smell. Activity Get plenty of rest and sleep. Do not lift anything that is heavier than 10 lbs (4.5 kg) for one month after surgery, or as long as told by your health care provider. Do not drive or use heavy machinery while taking prescription pain medicine. Do not drive for 24 hours if you were given a medicine to help you relax (sedative). Return to your normal activities as told by your health care provider. Ask your health care provider what activities are safe for you. Lifestyle Do not use any products that contain nicotine or tobacco, such as cigarettes and e-cigarettes. These can delay healing. If you need help quitting, ask your health care provider. Do not drink alcohol until your health care provider approves. General instructions Do not douche, use tampons, or have sex for at least 6 weeks, or as told by your health care provider. Take [id number] and prescription medicines only as told by your health care provider. To monitor yourself for a fever, take your temperature at least once a day during recovery. If you struggle with physical or emotional changes after your procedure, speak with your health care provider or a therapist. To prevent or treat constipation while you are taking prescription pain medicine, your health care provider may recommend that you: ?Drink enough fluid to keep your urine clear or pale yellow. ?Take shtj-[id number] or prescription medicines. ?Eat foods that are high in fiber, such as fresh fruits and vegetables, whole grains, and beans. ?Limit foods that are high in fat and processed sugars, such as fried and sweet foods. Keep all follow-up visits as told by your health care provider. This is important. Contact a health care provider if: You have chills or a fever. You have redness, swelling, or pain around an incision. You have fluid or blood coming from an incision. Your incision feels warm to the touch. You have pus or a bad smell coming from an incision. An incision breaks open. You feel dizzy or light-headed. You have pain or bleeding when you urinate. You have diarrhea, nausea, or vomiting that does not go away. You have abnormal vaginal discharge. You have a rash. You have pain that does not get better with medicine. Get help right away if: You have a fever and your symptoms suddenly get worse. You have severe abdominal pain. You have chest pain. You have shortness of breath. You faint. You have pain, swelling, or redness on your leg. You have heavy vaginal bleeding with blood clots. Summary After the procedure it is common to have abdominal pain. Your provider will give you medication forthis. Do not take baths, swim, or use a hot tub until your health care provider approves. Do not lift anything that is heavier than 10 lbs (4.5 kg) for one month after surgery, or as long as told by your health care provider. Notify your provider if you have any signs or symptoms of infection after the procedure. This information is not intended to replace advice given to you by your health care provider. Make sure you discuss any questions you have with your health care provider. Document Released: 12/27/2013 Document Revised: 02/18/2018 Document Reviewed: 05/19/2017 [employer] Patient Education 2020 [employer]. Follow Up Care 12/05/2021 09:36:03 With:KARLA CERVANTES MD Address: [address] [place] [address] [place] [address]- When: Unknown Comments:Follow-up with Dr. Cervantes in the office on January 07, 2022 at 9:00 AM for your postoperative visit. [facility] 10-03-2022 Anesthesiology Progress note Patient: MARIA LUISA BROWNING Age: 46 years Sex: Female : 1975 Associated Diagnoses: None Author: TRUNG VILLALBA MD Postoperative Information LATE ENTRY: Patient assessed postoperatively and vitals reviewed. Stable at the time of PACU discharge. Assessment Postanesthesia assessment Vitals: Vital signs from flowsheet : Vital Signs 12/22/2021 15:25 EDT Temperature Temporal Artery 36 DegC Heart Rate Monitored 72 bpm Respiratory Rate 16 br/min Systolic Blood Pressure NBP 112 mmHg Diastolic Blood Pressure NBP 64 mmHg Mean Arterial Pressure (NBP) 74 mmHg 12/22/2021 15:09 EDT Apical Heart Rate 73 bpm Respiratory Rate 16 br/min Systolic Blood Pressure NBP 104 mmHg Diastolic Blood Pressure NBP 61 mmHg Mean Arterial Pressure (NBP) 72 mmHg 12/22/2021 14:53 EDT Temperature Oral 36.2 DegC Apical Heart Rate 80 bpm Respiratory Rate 16 br/min Systolic Blood Pressure NBP 91 mmHg Diastolic Blood Pressure NBP 73 mmHg Mean Arterial Pressure (NBP) 77 mmHg 12/22/2021 14:50 EDT Respiratory Rate 0 br/min br/min 12/22/2021 14:45 EDT Heart Rate Monitored 75 bpm bpm Respiratory Rate 4 br/min br/min 12/22/2021 14:44 EDT Systolic Blood Pressure NBP 80 mmHg mmHg Diastolic Blood Pressure NBP 55 mmHg mmHg 12/22/2021 14:41 EDT Systolic Blood Pressure NBP 91 mmHg mmHg Diastolic Blood Pressure NBP 44 mmHg mmHg 12/22/2021 14:40 EDT Temperature (Route Not Specified) 36.49 DegC DegC Heart Rate Monitored 78 bpm bpm Respiratory Rate 25 br/min br/min 12/22/2021 14:38 EDT Systolic Blood Pressure NBP 89 mmHg mmHg Diastolic Blood Pressure NBP 48 mmHg mmHg 12/22/2021 14:36 EDT Systolic Blood Pressure NBP 90 mmHg mmHg Diastolic Blood Pressure NBP 48 mmHg mmHg 12/22/2021 14:35 EDT Temperature (Route Not Specified) 36.44 DegC DegC Heart Rate Monitored 80 bpm bpm Respiratory Rate 31 br/min br/min 12/22/2021 14:32 EDT Systolic Blood Pressure NBP 119 mmHg mmHg Diastolic Blood Pressure NBP 80 mmHg mmHg 12/22/2021 14:30 EDT Temperature (Route Not Specified) 36.43 DegC DegC Heart Rate Monitored 82 bpm bpm Respiratory Rate 18 br/min br/min Systolic Blood Pressure NBP 99 mmHg mmHg Diastolic Blood Pressure NBP 65 mmHg mmHg 12/22/2021 14:26 EDT Systolic Blood Pressure NBP 103 mmHg mmHg Diastolic Blood Pressure NBP 55 mmHg mmHg 12/22/2021 14:25 EDT Temperature (Route Not Specified) 36.43 DegC DegC Heart Rate Monitored 80 bpm bpm Respiratory Rate 10 br/min br/min 12/22/2021 14:23 EDT Systolic Blood Pressure NBP 98 mmHg mmHg Diastolic Blood Pressure NBP 58 mmHg mmHg 12/22/2021 14:20 EDT Temperature (Route Not Specified) 36.4 DegC DegC Heart Rate Monitored 79 bpm bpm Respiratory Rate 10 br/min br/min Systolic Blood Pressure NBP 95 mmHg mmHg Diastolic Blood Pressure NBP 66 mmHg mmHg 12/22/2021 14:17 EDT Systolic Blood Pressure NBP 90 mmHg mmHg Diastolic Blood Pressure NBP 60 mmHg mmHg 12/22/2021 14:15 EDT Temperature (Route Not Specified) 36.37 DegC DegC Heart Rate Monitored 81 bpm bpm Respiratory Rate 10 br/min br/min 12/22/2021 14:14 EDT Systolic Blood Pressure NBP 106 mmHg mmHg Diastolic Blood Pressure NBP 59 mmHg mmHg 12/22/2021 14:11 EDT Systolic Blood Pressure NBP 93 mmHg mmHg Diastolic Blood Pressure NBP 58 mmHg mmHg 12/22/2021 14:10 EDT Temperature (Route Not Specified) 36.34 DegC DegC Heart Rate Monitored 81 bpm bpm Respiratory Rate 10 br/min br/min 12/22/2021 14:08 EDT Systolic Blood Pressure NBP 96 mmHg mmHg Diastolic Blood Pressure NBP 60 mmHg mmHg 12/22/2021 14:05 EDT Temperature (Route Not Specified) 36.32 DegC DegC Heart Rate Monitored 81 bpm bpm Respiratory Rate 10 br/min br/min Systolic Blood Pressure NBP 101 mmHg mmHg Diastolic Blood Pressure NBP 57 mmHg mmHg 12/22/2021 14:02 EDT Systolic Blood Pressure NBP 107 mmHg mmHg Diastolic Blood Pressure NBP 63 mmHg mmHg 12/22/2021 14:00 EDT Temperature (Route Not Specified) 36.3 DegC DegC Heart Rate Monitored 79 bpm bpm Respiratory Rate 10 br/min br/min 12/22/2021 13:59 EDT Systolic Blood Pressure NBP 97 mmHg mmHg Diastolic Blood Pressure NBP 74 mmHg mmHg 12/22/2021 13:56 EDT Systolic Blood Pressure NBP 98 mmHg mmHg Diastolic Blood Pressure NBP 63 mmHg mmHg 12/22/2021 13:55 EDT Temperature (Route Not Specified) 36.28 DegC DegC Heart Rate Monitored 78 bpm bpm Respiratory Rate 10 br/min br/min 12/22/2021 13:53 EDT Systolic Blood Pressure NBP 99 mmHg mmHg Diastolic Blood Pressure NBP 75 mmHg mmHg 12/22/2021 13:50 EDT Temperature (Route Not Specified) 36.33 DegC DegC Heart Rate Monitored 76 bpm bpm Respiratory Rate 10 br/min br/min Systolic Blood Pressure NBP 103 mmHg mmHg Diastolic Blood Pressure NBP 69 mmHg mmHg 12/22/2021 13:47 EDT Systolic Blood Pressure NBP 115 mmHg mmHg Diastolic Blood Pressure NBP 75 mmHg mmHg 12/22/2021 13:45 EDT Temperature (Route Not Specified) 36.39 DegC DegC Heart Rate Monitored 71 bpm bpm Respiratory Rate 10 br/min br/min 12/22/2021 13:44 EDT Systolic Blood Pressure NBP 109 mmHg mmHg Diastolic Blood Pressure NBP 77 mmHg mmHg 12/22/2021 13:41 EDT Systolic Blood Pressure NBP 88 mmHg mmHg Diastolic Blood Pressure NBP 48 mmHg mmHg 12/22/2021 13:40 EDT Temperature (Route Not Specified) 36.38 DegC DegC Heart Rate Monitored 74 bpm bpm Respiratory Rate 10 br/min br/min 12/22/2021 13:38 EDT Systolic Blood Pressure NBP 102 mmHg mmHg Diastolic Blood Pressure NBP 65 mmHg mmHg 12/22/2021 13:35 EDT Temperature (Route Not Specified) 36.35 DegC DegC Heart Rate Monitored 82 bpm bpm Respiratory Rate 10 br/min br/min Systolic Blood Pressure NBP 83 mmHg mmHg Diastolic Blood Pressure NBP 53 mmHg mmHg 12/22/2021 13:32 EDT Systolic Blood Pressure NBP 84 mmHg mmHg Diastolic Blood Pressure NBP 44 mmHg mmHg 12/22/2021 13:30 EDT Temperature (Route Not Specified) 36.29 DegC DegC Heart Rate Monitored 81 bpm bpm Respiratory Rate 10 br/min br/min 12/22/2021 13:29 EDT Systolic Blood Pressure NBP 83 mmHg mmHg Diastolic Blood Pressure NBP 54 mmHg mmHg 12/22/2021 13:26 EDT Systolic Blood Pressure NBP 91 mmHg mmHg Diastolic Blood Pressure NBP 55 mmHg mmHg 12/22/2021 13:25 EDT Temperature (Route Not Specified) 36.25 DegC DegC Heart Rate Monitored 79 bpm bpm Respiratory Rate 10 br/min br/min 12/22/2021 13:23 EDT Systolic Blood Pressure NBP 98 mmHg mmHg Diastolic Blood Pressure NBP 56 mmHg mmHg 12/22/2021 13:20 EDT Temperature (Route Not Specified) 36.21 DegC DegC Heart Rate Monitored 78 bpm bpm Respiratory Rate 10 br/min br/min Systolic Blood Pressure NBP 102 mmHg mmHg Diastolic Blood Pressure NBP 69 mmHg mmHg 12/22/2021 13:17 EDT Systolic Blood Pressure NBP 112 mmHg mmHg Diastolic Blood Pressure NBP 73 mmHg mmHg 12/22/2021 13:15 EDT Temperature (Route Not Specified) 36.14 DegC DegC Heart Rate Monitored 74 bpm bpm Respiratory Rate 10 br/min br/min 12/22/2021 13:14 EDT Systolic Blood Pressure NBP 108 mmHg mmHg Diastolic Blood Pressure NBP 72 mmHg mmHg 12/22/2021 13:11 EDT Systolic Blood Pressure NBP 100 mmHg mmHg Diastolic Blood Pressure NBP 55 mmHg mmHg 12/22/2021 13:10 EDT Temperature (Route Not Specified) 36.09 DegC DegC Heart Rate Monitored 80 bpm bpm Respiratory Rate 10 br/min br/min 12/22/2021 13:08 EDT Systolic Blood Pressure NBP 95 mmHg mmHg Diastolic Blood Pressure NBP 66 mmHg mmHg 12/22/2021 13:05 EDT Temperature (Route Not Specified) 36.06 DegC DegC Heart Rate Monitored 82 bpm bpm Respiratory Rate 9 br/min br/min Systolic Blood Pressure NBP 108 mmHg mmHg Diastolic Blood Pressure NBP 65 mmHg mmHg 12/22/2021 13:02 EDT Systolic Blood Pressure NBP 96 mmHg mmHg Diastolic Blood Pressure NBP 60 mmHg mmHg 12/22/2021 13:00 EDT Temperature (Route Not Specified) 36.05 DegC DegC Heart Rate Monitored 78 bpm bpm Respiratory Rate 9 br/min br/min 12/22/2021 12:59 EDT Systolic Blood Pressure NBP 110 mmHg mmHg Diastolic Blood Pressure NBP 67 mmHg mmHg 12/22/2021 12:56 EDT Systolic Blood Pressure NBP 116 mmHg mmHg Diastolic Blood Pressure NBP 82 mmHg mmHg 12/22/2021 12:55 EDT Temperature (Route Not Specified) 36.02 DegC DegC Heart Rate Monitored 80 bpm bpm Respiratory Rate 9 br/min br/min 12/22/2021 12:53 EDT Systolic Blood Pressure NBP 130 mmHg mmHg Diastolic Blood Pressure NBP 75 mmHg mmHg 12/22/2021 12:50 EDT Temperature (Route Not Specified) 36.01 DegC DegC Heart Rate Monitored 83 bpm bpm Respiratory Rate 10 br/min br/min Systolic Blood Pressure NBP 136 mmHg mmHg Diastolic Blood Pressure NBP 80 mmHg mmHg 12/22/2021 12:48 EDT Systolic Blood Pressure NBP 118 mmHg mmHg Diastolic Blood Pressure NBP 68 mmHg mmHg 12/22/2021 12:45 EDT Temperature (Route Not Specified) 35.99 DegC DegC Heart Rate Monitored 87 bpm bpm Respiratory Rate 9 br/min br/min Systolic Blood Pressure NBP 100 mmHg mmHg Diastolic Blood Pressure NBP 70 mmHg mmHg 12/22/2021 12:41 EDT Systolic Blood Pressure NBP 67 mmHg mmHg Diastolic Blood Pressure NBP 38 mmHg mmHg 12/22/2021 12:40 EDT Heart Rate Monitored 88 bpm bpm Respiratory Rate 8 br/min br/min 12/22/2021 12:39 EDT Systolic Blood Pressure NBP 104 mmHg mmHg Diastolic Blood Pressure NBP 62 mmHg mmHg 12/22/2021 12:37 EDT Systolic Blood Pressure NBP 132 mmHg mmHg Diastolic Blood Pressure NBP 58 mmHg mmHg 12/22/2021 12:35 EDT Heart Rate Monitored 92 bpm bpm Respiratory Rate 9 br/min br/min 12/22/2021 12:32 EDT Systolic Blood Pressure NBP 111 mmHg mmHg Diastolic Blood Pressure NBP 63 mmHg mmHg 12/22/2021 12:30 EDT Heart Rate Monitored 70 bpm bpm Respiratory Rate 6 br/min br/min 12/22/2021 12:29 EDT Systolic Blood Pressure NBP 121 mmHg mmHg Diastolic Blood Pressure NBP 73 mmHg mmHg 12/22/2021 10:27 EDT Temperature Temporal Artery 36.3 DegC Apical Heart Rate 76 bpm Respiratory Rate 16 br/min Systolic Blood Pressure 117 mmHg Diastolic Blood Pressure 77 mmHg Mean Arterial Pressure 90 mmHg , Oxygen Therapy : Oxygen Therapy & Oxygenation Information 12/22/2021 15:25 EDT Oxygen Therapy Room air Oxygen Saturation 95 % 12/22/2021 15:09 EDT Oxygen Therapy Room air Oxygen Saturation 100 % Oxygen Flow Rate dc 12/22/2021 14:53 EDT Oxygen Therapy Simple mask Oxygen Saturation 100 % Oxygen Flow Rate 7 12/22/2021 14:45 EDT Oxygen Saturation 100 % % 12/22/2021 14:40 EDT Oxygen Saturation 99.2 % % 12/22/2021 14:35 EDT Oxygen Saturation 99.7 % % 12/22/2021 14:30 EDT Oxygen Saturation 100 % % 12/22/2021 14:25 EDT Oxygen Saturation 100 % % 12/22/2021 14:20 EDT Oxygen Saturation 100 % % 12/22/2021 14:15 EDT Oxygen Saturation 100 % % 12/22/2021 14:10 EDT Oxygen Saturation 100 % % 12/22/2021 14:05 EDT Oxygen Saturation 100 % % 12/22/2021 14:00 EDT Oxygen Saturation 100 % % 12/22/2021 13:55 EDT Oxygen Saturation 100 % % 12/22/2021 13:50 EDT Oxygen Saturation 100 % % 12/22/2021 13:45 EDT Oxygen Saturation 100 % % 12/22/2021 13:40 EDT Oxygen Saturation 100 % % 12/22/2021 13:35 EDT Oxygen Saturation 100 % % 12/22/2021 13:30 EDT Oxygen Saturation 100 % % 12/22/2021 13:25 EDT Oxygen Saturation 100 % % 12/22/2021 13:20 EDT Oxygen Saturation 100 % % 12/22/2021 13:15 EDT Oxygen Saturation 100 % % 12/22/2021 13:10 EDT Oxygen Saturation 100 % % 12/22/2021 13:05 EDT Oxygen Saturation 100 % % 12/22/2021 13:00 EDT Oxygen Saturation 100 % % 12/22/2021 12:55 EDT Oxygen Saturation 100 % % 12/22/2021 12:50 EDT Oxygen Saturation 100 % % 12/22/2021 12:45 EDT Oxygen Saturation 100 % % 12/22/2021 12:40 EDT Oxygen Saturation 100 % % 12/22/2021 12:35 EDT Oxygen Saturation 100 % % 12/22/2021 12:30 EDT Oxygen Saturation 100 % % 12/22/2021 10:27 EDT Oxygen Saturation 97 % . Mental status: at preoperative baseline. Respiratory function: lungs are clear to auscultation, respirations are non-labored. Respiratory support: none. CV function: Normal rate. Cardiovascular support: none. Pain. Nausea status: see nursing documentation of medications. Postoperative hydration status: within normal limits. Digitally Signed by TRUNG VILLALBA MD on 12/22/2021 04:55 PM [id number] Summary of episode note Discharge Instructions Thank you for allowing [facility] to assist you with your healthcare needs. The following is importantdischarge information regarding your hospital visit. Your Care Team BHUPINDER HAMLIN MD Your Diagnosis Ovarian mass Pain pelvic Post-op pain What to do next Instructions From Your Doctor No heavy lifting > 10 pounds for 6 weeks No swimming or tub baths. Showers are okay. Pelvic Rest until seen for your post-op appointment. No driving for 2 weeks or if taking narcotic pain medications. Call the office if you have a fever > 100.4 F, nausea/vomiting, heavy vaginal bleeding, redness/bruising/drainage from incisions, or uncontrolled pain. Please make sure to take stool softeners as needed to prevent constipation. Follow the wound care instructions provided to you from my office. Scheduled Follow-Up Appointments Appointment Type When With Where Contact InformationSO OV Post Op 01/07/2022 09:00 AM EDT KARLA CERVANTES MD [facility] [address] [place] [address] Follow Up Appointments Follow Up with KARLA CERVANTES MD When Why: Follow-up with Dr. Cervantes in the office on January 07, 2022 at 9:00 AM for your postoperative visit. Where: [address] [place] [address] [place] [address]- The Following Activity and Diet Have Been Ordered for You Discharge Activity - Ordered -- Sexual [place] Restricted, Follow the post-procedure activity instructions provided by your physician's office.No sexual intercourse x 6 wks, No tub baths x 6 wks. No heavy lifting greater than 15lbs. Don't operate a vehicle while using narco... Discharge Diet - Ordered -- Follow the post-operative/post-procedure diet instructions provided by your physician's office.,12/22/21 16:17:00 EDT The Following Equipment Has Been Ordered for You Discharge Home Equipment Discharge Wound Care - Ordered -- Follow the post-operative/post-procedure wound care instructions provided by your physician's office.Call the office if exp a temp >100.4, increase in pain, increase in bleeding/discharge, or increase in odors, 12/22/21 16:17:00 EDT The Following Treatments Have Been Ordered for You Discharge Labs No qualifying data available. Discharge Radiology No qualifying data available. Other Therapies No qualifying data available. Post Acute Orders No qualifying data available. Someone Will Contact You Regarding These Home Health Referrals No home referrals have been ordered for you. No one will call you. Allergies Toradol (Difficulty breathing) Medications Please ask your primary doctor or pharmacist before taking any other medication not listed, including over the counter drugs, herbal medications, vitamins and or supplements as they may interact withyour home medications. What How Much When Why Instructions Last Dose New acetaminophen (Tylenol 8 Hour 650 mg oral tablet,extended release) 2 tab(s) by mouth Every 8 hours Duration: 5 Days Refills: 1 Pickup at [facility]/pharmacy #[id number] New docusate (Colace 100 mg oral capsule) 1 cap by mouth Two (2) times a day as needed for as needed for constipation Refills: 1 Pickup at [facility]/pharmacy #[id number] New oxyCODONE (oxyCODONE 5 mg oral tablet ( IMMEDIATE release )) 1 tab(s) by mouth Every 4 hours Post-op pain Duration: 5 Days Pickup at [facility]/pharmacy #[id number] Pharmacy Information [facility] #[id number]: [id number] [place], [place] [id number] [phone] What How Much When Comments Stop Taking cetirizine (Zyrtec 10 mg oral tablet) 1 tab(s) by mouth Once a day Stop Taking cholecalciferol (Vitamin D3 50 mcg (2000 intl units) oral capsule) 1 tab(s) by mouth Every day Stop Taking hydroxychloroquine (hydroxychloroquine 200 mg oral tablet) 1 tab(s) by mouth Two (2) times a day Stop Taking levETIRAcetam (levETIRAcetam 1000 mg oral tablet) 1 tab(s) by mouth Two (2) times a day Stop Taking meloxicam (meloxicam 15 mg oral tablet) 1 tab(s) by mouth Once a day Stop Taking Misc Medication (FERROCITE) 1 TAB by mouth Two (2) times a day Stop Taking mupirocin topical (mupirocin 2% topical ointment) 1 application Topical Two (2) times a day Bilateral intranasal application twice daily for 5 days prior to surgery &/ or as many days leading up to surgery as possible due to surgical urgency/ scheduling. Send to patient's preferred pharmacy. Stop Taking mycophenolate mofetil (mycophenolate mofetil 250 mg oral capsule) 1 cap by mouth Once a day Please take this list to your next doctor s visit. Bring all medications you take, including over the counter medications, herbals and other supplements with you to your doctor s visit. Patients and families are reminded to discard old lists and to update any records with all medication providers or retail pharmacies. Education Materials LEIGH SAME DAY SURGERY DISCHARGE INSTRUCTIONS PLEASE FOLLOW THE INSTRUCTIONS BELOW MARKED WITH AN X: _x__ Regular Diet: Start with clear liquids, then soup and crackers and gradually add other foods. _x__ Drink extra fluids. ___ Special Diet Instructions: ___ ACTIVITY: _x__ Avoid stress to suture line. Since you have had an anesthetic, it would be advisable not to drive, drink alcohol, or make major decisions over the next 24 hours. You may require more rest tonight and tomorrow. ___ May resume regular activity as tolerated. ___ Restrict activity as follows: ___ ___ Walk Only ___ ___ Do not go up and down stairs. ___ Do not ride in car until ___ ___ Do not drive car. _x__ Do not have sexual intercourse. _x__ No heavy lifting, pushing or straining. _x__ Other: __Follow Dr Cervantes's written and verbal discharge instructions._ BATHING/SHOWERING: ___ Sponge bathe until office visit. ___ Sitting in tub of warm water may relieve discomfort. _x__ NO tub bathe _x__ May shower ___ On day after surgery sit in tub of warm water to soak off dressing. DRESSING: ___ Keep operative area dry and clean for ___ ___ Check the operative area for signs of bleeding. Apply pressure to the bleeding site if necessary and call your physician. ___ Change dressing as necessary using sterile dressing material or bandaid. ___ Reinforce dressing as necessary. ___ Change and care for wound as follows: ___ ___ Wear bra for ___ days following breast surgery for comfort. ___ Change drip pad as needed. ___ Wear scrotal support for comfort. WATCH FOR SIGNS OF INFECTION: (Usually appears 36-48 hours after surgery) Increased temperature (101 degrees Fahrenheit or higher) Redness or swelling Increased pain Foul odor or drainage. If you have any questions, please call your doctor at the number listed on your follow up instructions. Follow all instructions given to you by your physician. Please complete and return the survey you will be receiving in the mail to help us better serve our patients. Form: 1522 ([id number]) R: 06/28 Total Laparoscopic Hysterectomy, Care After This sheet gives you information about how to care for yourself after your procedure. Your health care provider may also give you more specific instructions. If you have problems or questions, contact your health care provider. What can I expect after the procedure? After the procedure, it is common to have: Pain and bruising around your incisions. A sore throat, if a breathing tube was used during surgery. Fatigue. Poor appetite. Less interest in sex. If your ovaries were also removed, it is also common to have symptoms of menopause such as hot flashes, night sweats, and lack of sleep (insomnia). Follow these instructions at home: Bathing Do not take baths, swim, or use a hot tub until your health care provider approves. You may need toonly take showers for 2 3 weeks. Keep your bandage (dressing) dry until your health care provider says it can be removed. Incision care Follow instructions from your health care provider about how to take care of your incisions. Make sure you: ? Wash your hands with soap and water before you change your dressing. If soap and water are not available, use hand pilot plant research technician. ? Change your dressing as told by your health care provider. ? Leave stitches (sutures), skin glue, or adhesive strips in place. These skin closures may need to stay in place for 2 weeks or longer. If adhesive strip edges start to loosen and curl up, you may trim the loose edges. Do not remove adhesive strips completely unless your health care provider tells you to do that. Check your incision area every day for signs of infection. Check for: ? Redness, swelling, or pain. ? Fluid or blood. ? Warmth. ? Pus or a bad smell. Activity Get plenty of rest and sleep. Do not lift anything that is heavier than 10 lbs (4.5 kg) for one month after surgery, or as long as told by your health care provider. Do not drive or use heavy machinery while taking prescription pain medicine. Do not drive for 24 hours if you were given a medicine to help you relax (sedative). Return to your normal activities as told by your health care provider. Ask your health care provider what activities are safe for you. Lifestyle Do not use any products that contain nicotine or tobacco, such as cigarettes and e-cigarettes. These can delay healing. If you need help quitting, ask your health care provider. Do not drink alcohol until your health care provider approves. General instructions Do not douche, use tampons, or have sex for at least 6 weeks, or as told by your health care provider. Take oarh-htu-lfbixmm and prescription medicines only as told by your health care provider. To monitor yourself for a fever, take your temperature at least once a day during recovery. If you struggle with physical or emotional changes after your procedure, speak with your health care provider or a therapist. To prevent or treat constipation while you are taking prescription pain medicine, your health care provider may recommend that you: ? Drink enough fluid to keep your urine clear or pale yellow. ? Take urlw-asw-kbbvxux or prescription medicines. ? Eat foods that are high in fiber, such as fresh fruits and vegetables, whole grains, and beans. ? Limit foods that are high in fat and processed sugars, such as fried and sweet foods. Keep all follow-up visits as told by your health care provider. This is important. Contact a health care provider if: You have chills or a fever. You have redness, swelling, or pain around an incision. You have fluid or blood coming from an incision. Your incision feels warm to the touch. You have pus or a bad smell coming from an incision. An incision breaks open. You feel dizzy or light-headed. You have pain or bleeding when you urinate. You have diarrhea, nausea, or vomiting that does not go away. You have abnormal vaginal discharge. You have a rash. You have pain that does not get better with medicine. Get help right away if: You have a fever and your symptoms suddenly get worse. You have severe abdominal pain. You have chest pain. You have shortness of breath. You faint. You have pain, swelling, or redness on your leg. You have heavy vaginal bleeding with blood clots. Summary After the procedure it is common to have abdominal pain. Your provider will give you medication forthis. Do not take baths, swim, or use a hot tub until your health care provider approves. Do not lift anything that is heavier than 10 lbs (4.5 kg) for one month after surgery, or as long as told by your health care provider. Notify your provider if you have any signs or symptoms of infection after the procedure. This information is not intended to replace advice given to you by your health care provider. Make sure you discuss any questions you have with your health care provider. Document Released: 12/27/2013 Document Revised: 02/18/2018 Document Reviewed: 05/19/2017 [employer] Patient Education 2020 [employer] Additional Information VACCINATE! IT SAVES LIVES! Members of the community who have not yet received the COVID-19 vaccine and would like to receive it can visit one of [facility] vaccine clinics. There are many vaccine clinic locations within the [facility]. For locations and available times, please visit [email or web address] It is important to note that some COVID mobile vaccine clinics are held outdoors and may be canceled in rainy or stormy conditions. To learn more about pediatric vaccinations (ages 5-11), we invite you to visit the [facility] webpage. [email or web address] learn more about the COVID-19 vaccine, we invite you to visit the [employer] website for a list of frequently asked questions. [email or web address] [facility] Patient Portal Access Instructions: Stay connected with your healthcare team and access your personal medical information anytime with the [facility] Patient Portal.If you would like a full copy of your medical records, please contact the [facility] Medical Records Department, Wednesday through Wednesday between 8a.m. and 4:30p.m. Please follow the directions below to access the portal: 1.Access the email account you provided upon registration to the hospital.2.Look for an invitation email from [facility].3.Open the email and access the invitation link: Accept Invitation to [facility].Fill in the required aguilera to create your account. Sign into [email or web address] with your username and password that you created in the above steps to stay up to date. You can then view a summary of results, a summary of your visits, and the ability to download your summaries to your computer or send the information securely to a physician. Remember that your healthcare information is confidential, so carefully consider who you will allow to register on the [facility] Patient Portal for access to your information. You can also access the [facility] Patient Portal on the [employer] trenton. Simply click on Health Records under [employer] and then click on the [employer] logo. HOW TO SAFELY DISPOSE OF PRESCRIPTION MEDICATIONS Please use one of the following methods to safely dispose of your unused medications. 1.Use a drug disposal kit: the drug disposal pouch allows you to safely discard your old and unuseddrugs. Ask your nurse to give you one when you are discharged.2.Visit a local take-back location: Many local pharmacies and police departments have programs that collect old and unwanted prescriptiondrugs. Call your local pharmacy or go to http://iPling.CloudFX/1D7Vm8v to find one close to you.3.Make use of household items: Use cat litter or old coffee grounds to dispose medications if other options arenot available. Mix your drugs with these household products, seal them in an airtight container andthrow it into the garbage. Call [facility]: [phone] to be sure your drugs can be disposed of in this way. Some medicines may require a different approach.4.Never flush your medications down the toilet. IF YOU HAVE BEEN PRESCRIBED AN OPIOID FOR PAIN If you have been prescribed an opioid (such as hydrocodone, oxycodone or morphine), it is critical to understand the possible side effects and risks of opioid pain medications. Even when taken as directed, opioids can have several side effects including: Tolerance, meaning you might need to take more of a medication for the same pain relief. Nausea, vomiting and/or constipation. Sleepiness, dizziness, dry mouth, confusion, depression or itching. Physical dependence, meaning you have withdrawal symptoms when a medication is stopped, can develop within a few days. KNOW YOUR RESPONSIBILITIES It is important to know exactly how much and how often to take the opioid pain medications you are prescribed. Never take opioids in higher amounts or more often than prescribed. Do not combine opioids with alcohol or other drugs that cause drowsiness, such as benzodiazepines, also known as benzos, including diazepam and alprazolam, muscle relaxants or sleep aids. Never sell or share prescription opioids. This is illegal. Store opioids in a secure place and out of reach of others (including children, family, friends and visitors). The last page of this document has been signed and retained as a CHART COPY. Signatures Patient Education Materials 1-SDS Discharge Instructions Template (12/2017) (CUSTOM) Total Laparoscopic Hysterectomy, Care After Medication Leaflets My discharge plan and instructions have been reviewed and explained to me and I,MARIA LUISA BROWNING understand my current condition and have read and understand these discharge instructions. I have received a written copy of the plan/instructions. If I have questions, I am aware that I should contact my doctor. 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 Family's history: negative. History of Present Illness The patient presents for preanesthesia evaluation with Patient is a 46-year-old female who presentsfor elective laparoscopic surgery to address an ovarian mass. She states she is active with some limitations, however, denies ischemic symptoms, cardiopulmonary limitations, she does have a history of mild aortic stenosis and aortic regurgitation. She has no syncopal, CHF, or PND symptoms. She has no worsening of her valve disease per her report. She also has a history of obesity, hypertension, seizure disorder, and her ovarian mass. She denies any symptoms of reflux disease, no prior anesthetic issues, her only allergy is to Toradol. She states her seizures are under good control without recent issues. Her beta-hCG is negative on the day of surgery. I reviewed her chart, studies, labs, consultations and she appears optimized to proceed with procedure for planned procedure.. Health Status Allergies: Allergic Reactions (Selected) Severity Not Documented Toradol- Difficulty breathing., Allergies (1) ActiveReaction ToradolDifficulty breathing Current medications: (Selected) Inpatient Medications Ordered LR 1,000 mL: 20 mL/hr, Intravenous, Stop: 12/23/21 0:00:00 EDT Mefoxin: 2 gram(s), 50 mL, 100 mL/hr, IV Piggyback, PREOP pharm lidocaine 1% preservative-free injectable solution: 2.5 mg, 0.25 mL, Intradermal, prep pharm Prescriptions Prescribed mupirocin 2% topical ointment: 1 [place], Topical, BID, Bilateral intranasal application twice daily for 5 days prior to surgery &/or as many days leading up to surgery as possible due to surgical urgency/scheduling. Send to patient's preferred pharmacy., 22 gram(s), 0 Refill(s) Documented Medications Documented FERROCITE: 1 TAB, Oral, BID, 0 Refill(s) Vitamin D3 50 mcg (2000 intl units) oral capsule: 1 tab(s), Oral, Daily, 30 tab(s), 0 Refill(s) Zyrtec 10 mg oral tablet: 10 mg, 1 tab(s), Oral, qDay, 30 tab(s), 0 Refill(s) hydroxychloroquine 200 mg oral tablet: 200 mg, 1 tab(s), Oral, BID, 60 tab(s), 0 Refill(s) levETIRAcetam 1000 mg oral tablet: 1,000 mg, 1 tab(s), Oral, BID, 60 tab(s), 0 Refill(s) meloxicam 15 mg oral tablet: 15 mg, 1 tab(s), Oral, qDay, 30 tab(s), 0 Refill(s) mycophenolate mofetil 250 mg oral capsule: 250 mg, 1 cap(s), Oral, qDay, 120 cap(s), 0 Refill(s), Medications (3) Active Scheduled: (2) ceFOXitin 2 gram(s) 50 mL, IV Piggyback, PREOP pharm lidocaine 1% (MPF) 2 mL vial pf 2.5 mg 0.25 mL, Intradermal, prep pharm Continuous: (1) Lactated Ringers 1,000 mL 1,000 mL, Intravenous, 20 mL/hr PRN: (0) Problem list: Medical Seizure / SNOMED CT 081697260 / Confirmed Seasonal allergy / SNOMED CT 8264601918 / Confirmed Pain pelvic / SNOMED CT 369640994 / Confirmed Aortic valve stenosis, mild / SNOMED CT 9387497516 / Confirmed Ovarian mass / SNOMED CT 869672920 / Confirmed Lupus / SNOMED CT 243263511 / Confirmed Heart murmur / SNOMED CT 005478379 / Confirmed Glasses / SNOMED CT 8560283584 / Confirmed Edema / SNOMED CT 695019302 / Confirmed COVID-19 / SNOMED CT 3966242956 / Confirmed BMI 38.0-38.9,adult / SNOMED CT 979163208 / Confirmed Benign essential hypertension / SNOMED CT 4821776 / Confirmed Aortic valve insufficiency / SNOMED CT 161248128 / Confirmed Anemia / SNOMED CT 497213128 / Confirmed, Active Problems (14) Anemia Aortic valve insufficiency Aortic valve stenosis, mild Benign essential hypertension BMI 38.0-38.9,adult COVID-19 Edema Glasses Heart murmur Lupus Ovarian mass Pain pelvic Seasonal allergy Seizure Histories Past Medical History: Active Aortic valve stenosis, mild (5425165308) Aortic valve insufficiency (955340589) Benign essential hypertension (6756633) Family History: Procedure history: Tubal ligation (703189957). Tonsillectomy (634181826). Social History Social & Psychosocial Habits Alcohol 12/08/2021 Use: Current Type: Beer, Liquor, Wine Frequency: 1-2 times per month Substance Abuse 12/08/2021 Use: DENIES Tobacco 12/08/2021 Tobacco Use: Former smoker, quit more Type: Cigarettes Started at age: 20 Years Stopped at age: 29 Years Home/Environment 12/08/2021 Domestic Concerns Denies 12/22/[address]: Yes . Physical Examination Vital Signs 12/22/2021 10:27 EDT Temperature Temporal Artery 36.3 DegC Apical Heart Rate 76 bpm Respiratory Rate 16 br/min Systolic Blood Pressure 117 mmHg Diastolic Blood Pressure 77 mmHg Mean Arterial Pressure 90 mmHg Vital Signs(last 24 hrs) Last Charted Resp Rate 16 br/min (DEC 22 10:27) Measurements from flowsheet : Measurements 12/22/2021 10:27 EDT Height 157.5 cm Height in inches 62 inch(es) Admission Weight 93.3 kg Weight Lbs 205.3 lb Weight Method Actual [place] Body Weight 50.12 kg Type of Scale Used Bed scale Admission Body Mass Index 37.61 m2 Pain assessment: Pain Assessment 12/22/2021 10:27 EDT Primary Pain Location Hand Primary Pain Laterality Left Primary Pain Intensity 3 Pain Scale Type 0-10 Pain scale . General: Alert and oriented, No acute distress. Airway: Normal mouth. Mallampati classification: II (soft palate, fauces, uvula visible). Head: Normocephalic, Atraumatic. Dentition Evaluation: Intact, Own teeth. Neck: Supple, Non-tender. Respiratory: Lungs are clear to auscultation, Respirations are non-labored. Cardiovascular: Normal rate, Regular rhythm. Heart Sounds: Normal. Neurologic: Alert, Oriented. Review / Management Results review: No qualifying data available , Lab results 12/22/2021 11:46 EDT Patient Instructions Documentation Patient Instructions Documentation 12/22/2021 11:16 EDT metroNIDAZOLE 500 mg mg 12/22/2021 10:34 EDT heparin 5,000 unit(s) unit(s) Lactated Ringers Injection Begin Bag 1,000 mL mL 12/22/2021 10:32 EDT SN - Preop - CTm Pt Ready for OR/Proced 12/22/2021 10:31 12/22/2021 10:31 EDT Individuals Taught Patient, Spouse Learning Readiness Willing to learn Barriers to Learning None evident Teaching Method Explanation, Printed materials Preferred Written Language Honduran Family/Caregiver Prefer Written Language Honduran Preferred Spoken Language Honduran Family/Caregiver Prefer Spoken Language Honduran General Infection Prevention Strategies Hand hygiene Surgical Site Infection Prevention SSI FAQ provided Infection Prevention Teaching Evaluation Verbalizes/Nonverbally indicates understanding Pre Procedure/Surgery Education Appropriate expectations, Bring glasses, hearing aids, contact lenscase, Date/Time of procedure/surgery, Hospital gown requirement worn to OR, Leave valuables, jewelry, wedding ring at home, Meds to take or hold, NPO, Responsible auto transport driver for discharge, Surgical skin prep Procedure/Surgical Teaching Evaluation Verbalizes/Nonverbally indicates understanding Ed-Safety Verbalizes/Nonverbally indicates understanding Ed-Infection Signs/Symptoms Verbalizes/Nonverbally indicates understanding 12/22/2021 10:27 EDT Urine POC Negative Height 157.5 cm Height in inches 62 inch(es) Admission Weight 93.3 kg Weight Lbs 205.3 lb Weight Method Actual [place] Body Weight 50.12 kg Type of Scale Used Bed scale Admission Body Mass Index 37.61 m2 Temperature Temporal Artery 36.3 DegC Apical Heart Rate 76 bpm Respiratory Rate 16 br/min Systolic Blood Pressure 117 mmHg Diastolic Blood Pressure 77 mmHg Mean Arterial Pressure 90 mmHg Primary Pain Location Hand Primary Pain Laterality Left Primary Pain Intensity 3 Pain Scale Type 0-10 Pain scale Nail Bed Color [place] Capillary Refill < 2 seconds Heart Rhythm Regular Respirations Unlabored Respiratory Pattern Regular All Lobes Breath Sounds Clear Cough None Oxygen Saturation 97 % Abdomen Description Non-distended, Soft Abdomen Palpation Non-Tender, Soft Bowel Sounds All Quadrants Present Urinary Elimination Voiding, no difficulties Skin Temperature Warm Skin Description [place], Normal for ethnicity, Dry Skin Integrity Intact Skin Moisture General Dry IV Present Present Hand Right 12/22/2021 20 gauge Peripheral IV Activity: Insert new site Peripheral IV Dressing Condition: Clean, Dry, Intact Peripheral IV Dressing Activity: Applied Peripheral IV Line Status/Patency: Continuous infusion Peripheral IV Site Condition: No complications Peripheral IV Equipment: Manual Peripheral IV Number of Attempts: 1 Neurological Symptoms Patient denies Extremity Movement Equal Characteristics of Speech Clear Level of Consciousness Alert Strength All Extremities Strong Tone All Extremities Normal Sensation All Extremities Intact Violence Risk Confused No Violence Risk Irritable No Violence Risk Boisterous No Violence Risk Verbal Threats No Violence Risk Physical Threats No Violence Risk Attacking Objects No Violence Risk Predictor Score 0 Violence Risk Intervention None Violence Risk Current Interventions None Affect/Behavior Appropriate, Calm, Cooperative Orientation Oriented x 4 Allergies Yes Consent Form Signed Yes Patient Dressed In Hospital gown Pre-op Preparation Glasses removed CHG Preoperative Wash/Wipe Night before procedure, Day of procedure, Site specific wipe Non-CHG Preoperative Shampoo Not applicable Preop Nasal Swab Povidone-Iodine CHG Skin Prep Completed for Eligible Surgery History & Physical Update On Chart Yes History & Physical On Chart Yes Bowel Prep Completed Yes Obstructive Sleep Apnea Assess Completed Yes MRSA/MSSA Protocol No Orientation Assessment Oriented x 4 Belongings At Bedside Glasses, Jacket, Pants, Shirt, Shoes, Socks, Undergarments NPO Status Maintained Standard Safety ID band on, Allergy Band on, Call device within reach, Bed in low position, Wheels locked, Upper/Half-Length side-rails up, Phone within reach, personal items within reach, Visitor atbedside, Non-Slip footwear Demonstrates Correct Call Light Use Yes Allergy Band on and Verified Yes Patient ID Band on and Verified Yes Implants Verified Yes Pacemaker/AICD Verified Yes Blood Consent Signed Yes Last Fluid Intake 12/21/2021 23:00 Last Food Intake 12/21/2021 10:00 Last Void 12/22/2021 10:31 12/22/2021 10:24 EDT Privacy Restrictions Requested None Sensory Deficits None Safety Brochure Information Reviewed Yes [facility] Video Viewed Previously viewed Teaching Evaluation Verbalizes/Nonverbally indicates understanding Discharge To, Anticipated Home independently Personal Devices, Patient Valuables Glasses Admission Note-Nursing Same Day Patient History (Modified) 12/22/2021 10:23 EDT SN - Preop - CTm Pt in SDS Room 12/22/2021 10:22 12/22/2021 9:50 EDT ABO/Rh Interp A NEG ABSC Interp (Gel) NEG 12/22/2021 4:00 EDT 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 Assessment and Plan [place] Society of Anesthesiologists (ASA) physical status classification: Class III. Anesthetic Preoperative Plan Premedication: intravenous. Anesthetic technique: General. Induction: intravenously. Maintenance airway: Oral endotracheal tube. Postoperative pain management: Per surgeon. Risks discussed: nausea, vomiting, headache, sore throat, dental injury, hypotension, allergic reaction, serious complications. Informed consent: signed by patient. Notes: Patient identified, medical record reviewed, medical history reviewed with patient. Assessment performed. Plan prescribed discussed with patient including risks. Inquiries invited and addressed. Consent signed by patient, pt agrees to proceed with GA for planned procedure . Digitally Signed by HODAN GARCIA MD on 12/22/2021 11:56 AM [id number] History and physical note Date of Service 12/22/2021 HISTORY AND PHYSICAL: Dr. Suzan Gonzalez PGY1 documented H&P on behalf of Dr. Karla Cervantes. REFERRING PHYSICIAN: Dr.Christina Thompson PRIMARY CARE PHYSICIAN: BHUPINDER HAMLIN MD CHIEF COMPLAINT: Elevated CA125, Ovarian cyst HISTORY OF PRESENT ILLNESS: Patient is a 46-year-old female with past medical history of lupus and seizures who was referred to Dr. Cervantes by Dr. Sabino Thompson's office for elevated CA125 and complex ovarian cyst. The patient presented to Dr. Thompson on 10/22/2021 for complaint of pelvic pain. She had pelvic pain with sexual activity. She had originally seen her PCP who had ordered a CT abdomen and pelvis which was performed on 10/30/2021. This showed a small left pleural effusion without superimposed pulmonary process. As well as a complex 4.68 cm left ovarian cyst. At Dr. Thompson's office the patient endorsed a 30 pound unintended weight loss in the past 6 months as well as fatigue. She reported resolved pain andthe exam was normal with Dr. Thompson. Dr. Thompson planned a ultrasound of the pelvis and blood work. A CA125 was drawn which was 51.7. At that point Dr. Thompson referred the patient to Dr. Cervantes. The patient has not had the ultrasound performed. Here the patient complains of ongoing fatigue. She does endorse the weight loss. She reports that she was a smoker for many years and quit around 5 years ago. She has generalized aches but had previously attributed this to her lupus. The patient denies fever, chills, chest pain, shortness of breath. No coughing or wheezing. No headaches or dizziness. No change in vision or hearing. No skin new skin rashes. No hot flashes. No easybruising. Denies nausea/vomiting. No diarrhea or constipation. No rectal bleeding. No hematuria or dysuria. Appetite is intact. PAST MEDICAL HISTORY: Benign essential hypertension Aortic valve insufficiency Aortic valve stenosis, mild COVID-19 Pain pelvic Edema BMI 38.0-38.9,adult Heart murmur Ovarian mass Anemia Glasses Seasonal allergy Seizure Lupus PAST SURGICAL HISTORY: Tonsillectomy Tubal ligation AC[employer] HISTORY: G3, P1, 1 vaginal delivery. History of tubal ligation Age of menarche 11. LMP 10/31/2021 Endorses OCPs for 1 to 2 years. Denies HRT use Last Pap 2020. Endorses history of abnormals. Last mammogram 09/08/2021. Denies history of colonoscopy FAMILY HISTORY: No positive family history reported. SOCIAL HISTORY: Alcohol Details: Use: Current. Type: Beer, Wine, Liquor. Frequency: 1-2 times per month. Home/Environment Details: Domestic Concerns: Denies. Substance Abuse Details: Use: DENIES. Tobacco Details: Nicotine Use: Former smoker, quit more than 30 days ago. Type: Cigarettes. Started at age:20 Years. Stopped at age: 29 Years. MEDICATIONS: FERROCITE 1 TAB, Oral, BID hydroxychloroquine 200 mg oral tablet 200 mg = 1 tab(s), Oral, BID levETIRAcetam 1000 mg oral tablet 1,000 mg = 1 tab(s), Oral, BID meloxicam 15 mg oral tablet 15 mg = 1 tab(s), Oral, qDay mupirocin 2% topical ointment 1 [place], Topical, BID mycophenolate mofetil 250 mg oral capsule 250 mg = 1 cap(s), Oral, qDay Vitamin D3 50 mcg (2000 intl units) oral capsule 1 tab(s), Oral, Daily Zyrtec 10 mg oral tablet 10 mg = 1 tab(s), Oral, qDay ALLERGIES: Toradol Difficulty breathing REVIEW OF SYSTEMS: See HPI for pertinent positives. A full review of systems was conducted and found to otherwise be negative. PHYSICAL EXAMINATION: Vital Signs pending RESULTS: IMAGIN10/30/2021 CT A/P w/ contrast -- no suspicious solid organ abnormality, 4.68 cm complex L ovarian cyst 12/08/2021 LABS: WBC: 4 RBC: 4.26 Hgb: 11.6 G/dL Hct: 33.9 Platelet: 137 Glucose Level: 87 Sodium Level: 137 Potassium Level: 4 Chloride: 104 Creatinine: 0.84 AST/SGOT: 17 ALT/SGPT: 11 11/18/2021 LABS: TSH: 0.74 T4: 1.21 CA 125: 51.7 CEA: < 0.3 CA 19-9: 5 IMPRESSION: Patient is a 46-year-old female with past medical history of lupus and seizures who was referred to Dr. Cervantes by Dr. Sabino Thompson's office for elevated CA125 and complex ovariancyst. PLAN: Patient to undergo EUA, TLH, BSO, cystoscopy on 12/22/[address] Cervantes discussed the potential risks of the procedure, including but not limited to: Infection, bleeding, damage to surrounding structures, need for blood transfusion, pneumonia, blood clots, needfor reoperation, ICU admission, and . The patient understands these risks and is willing to proceed with the surgery. A surgical consent form was signed in the office. Please see Dr. Cervantes's addendum for further additions or corrections to above documentation. Digitally Signed by SUZAN GONZALEZ DO on 12/21/2021 11:06 AM Digitally Signed by SUZAN GONZALEZ DO on 12/22/2021 09:10 AM [id number] History and physical note Date of Service 12/22/2021 HISTORY AND PHYSICAL: Dr. Suzan Gonzalez PGY1 documented H&P on behalf of Dr. Karla Cervantes. REFERRING PHYSICIAN: Dr.Christina Thompson PRIMARY CARE PHYSICIAN: BHUPINDER HAMLIN MD CHIEF COMPLAINT: Elevated CA125, Ovarian cyst HISTORY OF PRESENT ILLNESS: Patient is a 46-year-old female with past medical history of lupus and seizures who was referred to Dr. Cervantes by Dr. Sabino Thompson's office for elevated CA125 and complex ovarian cyst. The patient presented to Dr. Thompson on 10/22/2021 for complaint of pelvic pain. She had pelvic pain with sexual activity. She had originally seen her PCP who had ordered a CT abdomen and pelvis which was performed on 10/30/2021. This showed a small left pleural effusion without superimposed pulmonary process. As well as a complex 4.68 cm left ovarian cyst. At Dr. Thompson's office the patient endorsed a 30 pound unintended weight loss in the past 6 months as well as fatigue. She reported resolved pain andthe exam was normal with Dr. Thompson. Dr. Thompson planned a ultrasound of the pelvis and blood work. A CA125 was drawn which was 51.7. At that point Dr. Thompson referred the patient to Dr. Cervantes. The patient has not had the ultrasound performed. Here the patient complains of ongoing fatigue. She does endorse the weight loss. She reports that she was a smoker for many years and quit around 5 years ago. She has generalized aches but had previously attributed this to her lupus. The patient denies fever, chills, chest pain, shortness of breath. No coughing or wheezing. No headaches or dizziness. No change in vision or hearing. No skin new skin rashes. No hot flashes. No easybruising. Denies nausea/vomiting. No diarrhea or constipation. No rectal bleeding. No hematuria or dysuria. Appetite is intact. PAST MEDICAL HISTORY: Benign essential hypertension Aortic valve insufficiency Aortic valve stenosis, mild COVID-19 Pain pelvic Edema BMI 38.0-38.9,adult Heart murmur Ovarian mass Anemia Glasses Seasonal allergy Seizure Lupus PAST SURGICAL HISTORY: Tonsillectomy Tubal ligation [employer] HISTORY: G3, P1, 1 vaginal delivery. History of tubal ligation Age of menarche 11. LMP 10/31/2021 Endorses OCPs for 1 to 2 years. Denies HRT use Last Pap 2020. Endorses history of abnormals. Last mammogram 09/08/2021. Denies history of colonoscopy FAMILY HISTORY: No positive family history reported. SOCIAL HISTORY: Alcohol Details: Use: Current. Type: Beer, Wine, Liquor. Frequency: 1-2 times per month. Home/Environment Details: Domestic Concerns: Denies. Substance Abuse Details: Use: DENIES. Tobacco Details: Nicotine Use: Former smoker, quit more than 30 days ago. Type: Cigarettes. Started at age:20 Years. Stopped at age: 29 Years. MEDICATIONS: FERROCITE 1 TAB, Oral, BID hydroxychloroquine 200 mg oral tablet 200 mg = 1 tab(s), Oral, BID levETIRAcetam 1000 mg oral tablet 1,000 mg = 1 tab(s), Oral, BID meloxicam 15 mg oral tablet 15 mg = 1 tab(s), Oral, qDay mupirocin 2% topical ointment 1 [place], Topical, BID mycophenolate mofetil 250 mg oral capsule 250 mg = 1 cap(s), Oral, qDay Vitamin D3 50 mcg (2000 intl units) oral capsule 1 tab(s), Oral, Daily Zyrtec 10 mg oral tablet 10 mg = 1 tab(s), Oral, qDay ALLERGIES: Toradol Difficulty breathing REVIEW OF SYSTEMS: See HPI for pertinent positives. A full review of systems was conducted and found to otherwise be negative. PHYSICAL EXAMINATION: Vital Signs pending RESULTS: IMAGIN10/30/2021 CT A/P w/ contrast -- no suspicious solid organ abnormality, 4.68 cm complex L ovarian cyst 12/08/2021 LABS: WBC: 4 RBC: 4.26 Hgb: 11.6 G/dL Hct: 33.9 Platelet: 137 Glucose Level: 87 Sodium Level: 137 Potassium Level: 4 Chloride: 104 Creatinine: 0.84 AST/SGOT: 17 ALT/SGPT: 11 11/18/2021 LABS: TSH: 0.74 T4: 1.21 CA 125: 51.7 CEA: < 0.3 CA 19-9: 5 IMPRESSION: Patient is a 46-year-old female with past medical history of lupus and seizures who was referred to Dr. Cervantes by Dr. Sabino Thompson's office for elevated CA125 and complex ovariancyst. PLAN: Patient to undergo EUA, TLH, BSO, cystoscopy on 12/22/[address] Cervantes discussed the potential risks of the procedure, including but not limited to: Infection, bleeding, damage to surrounding structures, need for blood transfusion, pneumonia, blood clots, needfor reoperation, ICU admission, and . The patient understands these risks and is willing to proceed with the surgery. A surgical consent form was signed in the office. Please see Dr. Cervantes's addendum for further additions or corrections to above documentation. Digitally Signed by SUZAN GONZALEZ DO on 12/21/2021 11:06 AM Digitally Signed by SUZAN GONZALEZ DO on 12/22/2021 09:10 AM [facility] Future Appointments Appointment Date:01/07/2022 09:00:00 AM Scheduled Provider:KARLA CERVANTES MD Location:[employer] Appointment Type:SO Post Op [facility] Evaluation + Plan note Future Appointments Appointment Date:02/06/2022 11:40:00 AM Scheduled Provider:KRYS LAU Location:[employer] [employer] Appointment Type:SO [facility] Op [facility] Evaluation note* Diagnosis Onset Date Resolution Status Generalized lymphadenopathy acute Pancytopenia acute Essential hypertension chron ic Nonrheumatic aortic (valve) stenosis [facility] Work Phone: Evaluation note* Diagnosis Onset Date Resolution Status Essential hypertension chron ic Nonrheumatic aortic (valve) stenosis chronic Low back pain acute D-dimer, elevated chronic Iron deficiency anemia chron ic Pancytopenia chronic D-dimer, elevated chronic Iron deficiency anemia chron ic Pancytopenia [facility] Work Phone: Evaluation note* Diagnosis Onset Date Resolution Status Low back pain acute D-dimer, elevated chronic Iron deficiency anemia chron ic Pancytopenia chronic D-dimer, elevated chronic Iron deficiency anemia chron ic Pancytopenia [facility] Work Phone: Evaluation note* Diagnosis Onset Date Resolution Status Low back pain acute D-dimer, elevated chronic Iron deficiency anemia chron ic Pancytopenia chronic D-dimer, elevated chronic Iron deficiency anemia chron ic Pancytopenia chronic D-dimer, elevated chronic Iron deficiency anemia chron ic Lupus anticoagulant positive [facility] Work Phone: Evaluation note* Diagnosis Onset Date Resolution Status D-dimer, elevated chronic Iron deficiency anemia chron ic Lupus anticoagulant positive [facility] Work Phone: Evaluation note* Diagnosis Onset Date Resolution Status D-dimer, elevated chronic Iron deficiency anemia chron ic Lupus anticoagulant positive chronic Epilepsy chronic History of cerebrovascular disease [facility] Work Phone: Evaluation note* Diagnosis Onset Date Resolution Status Epilepsy chronic History of cerebrovascular disease [facility] Work Phone: Evaluation note* Diagnosis Onset Date Resolution Status D-dimer, elevated chronic Iron deficiency anemia chron ic Lupus anticoagulant positive chronic Essential hypertension chron ic Nonrheumatic aortic (valve) stenosis [facility] Work Phone: Evaluation note* Diagnosis Onset Date Resolution Status D-dimer, elevated chronic Iron deficiency anemia chron ic Lupus anticoagulant positive chronic Essential hypertension chron ic Nonrheumatic aortic (valve) stenosis chronic Fatigue acute Anticardiolipin antibody positive chronic Epilepsy chronic History of cerebrovascular disease [facility] Work Phone: Evaluation note* Diagnosis Onset Date Resolution Status Fatigue chronic SLE (systemic lupus erythematosus) acute Lupus anticoagulant positive chronic Iron deficiency anemia resol hans Fatigue chronic Epilepsy chronic Fatigue chronic History of cerebrovascular disease [facility] Work Phone: Evaluation note* Diagnosis Onset Date Resolution Status Epilepsy chronic Fatigue chronic History of cerebrovascular disease chronic Fatigue chronic Fatigue [facility] Work Phone: Evaluation note* Diagnosis Onset Date Resolution Status Fatigue chronic Fatigue chronic Iron deficiency anemia chron ic Lupus anticoagulant positive chronic SLE (systemic lupus erythematosus) [facility] Work Phone: Evaluation note* Diagnosis Onset Date Resolution Status Fatigue chronic Iron deficiency anemia chron ic Lupus anticoagulant positive chronic SLE (systemic lupus erythematosus) chronic Fatigue [facility] Work Phone: Evaluation note* Diagnosis Onset Date Resolution Status Fatigue chronic Fatigue chronic Fatigue chronic Adult celiac disease acute Iron deficiency anemia chron ic Lupus anticoagulant positive chronic SLE (systemic lupus erythematosus) chronic Fatigue [facility] Work Phone: Evaluation note* Diagnosis Onset Date Resolution Status Fatigue chronic Fatigue chronic Adult celiac disease acute Iron deficiency anemia chron ic Lupus anticoagulant positive chronic SLE (systemic lupus erythematosus) chronic Fatigue chronic Epilepsy chronic Fatigue chronic Fatigue chronic [facility] Work Phone: Evaluation note* Diagnosis Disorder of artery or arteriole (HCC)- Primary Unspecified disorders of arteries and arterioles Pre-operative cardiovascular examination Aortic valve disorder Aortic valve disorders documented in this encounter [facility] note* Diagnosis Convulsions, unspecified convulsion type (HCC)- Primary Disorder of artery or arteriole (HCC) Unspecified disorders of arteries and arterioles Pre-operative cardiovascular examination Aortic valve disorder Aortic valve disorders 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) Localization-related (focal) (partial) epilepsy and epileptic syndromes with simple partial seizures, without mention of intractable epilepsy [facility]* Diagnosis Pre-operative cardiovascular examination- Primary Disorder of artery or arteriole (HCC) Unspecified disorders of arteries and arterioles Aortic valve disorder Aortic valve disorders Discharge planning issues- Primary Encounters for unspecified administrative purpose Preop testing Preoperative examination, unspecified Disorder of artery or arteriole (HCC) Unspecified disorders of arteries and arterioles Pre-operative cardiovascular examination Aortic valve disorder Aortic valve disorders [facility]* Diagnosis Pre-operative cardiovascular examination- Primary Disorder of artery or arteriole (HCC) Unspecified disorders of arteries and arterioles Aortic valve disorder Aortic valve disorders Discharge planning issues- Primary Encounters for unspecified administrative purpose Preop testing Preoperative examination, unspecified Disorder of artery or arteriole (HCC) Unspecified disorders of arteries and arterioles Pre-operative cardiovascular examination Aortic valve disorder Aortic valve disorders [facility]* Diagnosis Bicuspid aortic valve- Primary Congenital insufficiency of aortic valve Severe aortic regurgitation Aortic valve disorders Nonrheumatic aortic valve stenosis Aortic valve disorders Discharge planning issues- Primary Encounters for unspecified administrative purpose Preop testing Preoperative examination, unspecified Disorder of artery or arteriole (HCC) Unspecified disorders of arteries and arterioles Pre-operative cardiovascular examination Aortic valve disorder Aortic valve disorders documented in this encounter [facility] note* Diagnosis Disorder of artery or arteriole (HCC) Unspecified disorders of arteries and arterioles Pre-operative cardiovascular examination Aortic valve disorder Aortic valve disorders Discharge planning issues- Primary Encounters for unspecified administrative purpose Preop testing Preoperative examination, unspecified Disorder of artery or arteriole (HCC) Unspecified disorders of arteries and arterioles Pre-operative cardiovascular examination Aortic valve disorder Aortic valve disorders documented in this encounter [facility] note* Diagnosis Disorder of artery or arteriole (HCC) Unspecified disorders of arteries and arterioles Pre-operative cardiovascular examination Aortic valve disorder Aortic valve disorders Convulsions, unspecified convulsion type (HCC) Discharge planning issues- Primary Encounters for unspecified administrative purpose Preop testing Preoperative examination, unspecified Disorder of artery or arteriole ([facility]) Unspecified disorders of arteries and arterioles Pre-operative cardiovascular examination Aortic valve disorder Aortic valve disorders documented in this encounter [facility] note* Diagnosis Discharge planning issues- Primary Encounters for unspecified administrative purpose Preop testing Preoperative examination, unspecified Pre-op exam Preoperative examination, unspecified Disorder of artery or arteriole (HCC) Unspecified disorders of arteries and arterioles Pre-operative cardiovascular examination Aortic valve disorder Aortic valve disorders documented in this encounter [facility] note* Diagnosis Preop cardiovascular exam- Primary Pre-operative cardiovascular examination Disorder of artery or arteriole (HCC) Unspecified disorders of arteries and arterioles Pre-operative cardiovascular examination Aortic valve disorder Aortic valve disorders documented in this encounter [facility] note* Diagnosis Aortic valve disorder- Primary Aortic valve disorders Disorder of artery or arteriole (HCC) Unspecified disorders of arteries and arterioles Pre-operative cardiovascular examination Aortic valve disorder Aortic valve disorders documented in this encounter [facility] note* Diagnosis Status post mechanical aortic valve replacement- Primary Wound infection after surgery Other postoperative infection documented in this encounter [facility] note* Diagnosis Status post mechanical aortic valve replacement- Primary Wound infection after surgery Other postoperative infection documented in this encounter [facility] note* Diagnosis Infection- Primary Unspecified infectious and parasitic diseases documented in this encounter [facility] note* Diagnosis Infection- Primary Unspecified infectious and parasitic diseases documented in this encounter [facility] note* Diagnosis Escherichia coli infection- Primary Other and unspecified Escherichia coli (E. coli) Bacteremia documented in this encounter [facility] note* Diagnosis Wound infection after surgery- Primary Other postoperative infection documented in this encounter [facility] course Narrative No data available for this section [facility] Discharge instructions No data available for this section [facility] Progress note No data available for this section [facility] Progress note Author Lazara Haney [facility] Note Date/Time August 24, 2024 3:32p m [facility] [address] [place] [address] OFFICE VISIT Date of Service: 08/24/24 1459 MR#: [id number] Acct: [id number] Name: MARIA LUISA BROWNING Rep #: [id number] : 1975 From: Lazara Cannon [employer] Age/Sex: 49/F Location: [facility] Status: Signed HPI Subjective Date of Service 08/24/24 Chief Complaint F/u for Iron deficiency anemia. History of Present Illness 49 y.o.woman presented to [facility] ER with SOB on 05/09/2021, CTA was negative for PE but showed R/L pleural effusion, R/L axillary nodes and mediastinal nodes so referred for further evaluation. Has history of SLE and is been treated in [place]. She was found to have Iron deficiency and started on Oral Iron. D-dimers was high so had Venous Doppler was done on 05/22/2021 which was negative. Lupus anticoagulant done which positive on 11/12/2021, has never had a DVT. She was on oral Iron, found to have Iron deficiency anemia with low iron. Got IV Venofer. She was found to have mildly positive tTG on 02/03/2023 so started Gluten free diet. She is now on Oral Iron supplement. Interval History The patient is presenting to clinic for a planned 6 month follow up. Confirms she is taking PO iron daily with vitamin C. Denies fatigue, CP, palpitations, cough, SOB, changes in her bowel habits, melena/hematochezia. [facility] Medical History Postoperative atrial fibrillation Left leg swelling Right leg swelling Iron deficiency anemia Sternal wound dehiscence Adult celiac disease SLE (systemic lupus erythematosus) Lupus anticoagulant positive History of endocarditis Nonrheumatic aortic (valve) stenosis with insufficiency Chronic fatigue CKD (chronic kidney disease), stage II PAF (paroxysmal atrial fibrillation) CAD (coronary artery disease) Obesity Former tobacco use History of CVA (cerebrovascular accident) Seizures Carpal tunnel syndrome Arthritis Nonrheumatic aortic (valve) stenosis Essential hypertension Nonrheumatic aortic (valve) insufficiency Seizure disorder Female stress incontinence Surgical History S/P hysterectomy H/O mechanical aortic valve replacement (11/05/23) History of tonsillectomy Family History Grandmother CVA (cerebral vascular accident) Uterine cancer Uncle Heart disease Myocardial infarction CAD (coronary artery disease) Hypertension Mother Diabetes Father No problems noted. Social History household members: spouse Smoking Status: Former smoker how long ago did patient quit smoking: Smoked ~ 1 ppd x 5 years, quit 05/28/2008 second hand exposure: No alcohol intake: current alcohol intake frequency: holidays/special occasions only substance use type: does not use caffeine: Yes Type: coffee Number of servings: 2 seatbelt use: never Intake Vital Signs 02/24/24 14:07 05/24/24 10:32 08/24/24 15:00 Height 5 ft 1 in 5 ft 2 in 5 ft 2 in Weight: 184 lb 2 oz BMI 33.6 BP 86/58 L Blood Pressure Location Rt brachial Position Sitting Respiration 14 Pulse 56 L Pulse Source Monitor Temp 98.0 F Temperature Source Temporal Artery Pulse Oximetry (%) 97 Oxygen Delivery Method room air Intake Is patient in pain?: No Allergies ketorolac tromethamine (From Toradol) Allergy (Severe, Verified 08/24/24 15:01) Shortness of breath Medications ?Medication ?Instructions ?Recorded ?Confirmed ?Type aspirin 81 mg chewable tablet 81 mg PO DAILY@0800 hear t health 07/20/13 08/24/24 History ergocalciferol (vitamin D2) 1,250 50,000 unit PO DAILY supplement 02/14/19 08/24/24 History mcg (50,000 unit) capsule rosuvastatin 10 mg tablet 10 mg PO DAILY cholesterol 0 06/03/22 08/24/24 History acetaminophen 325 mg tablet 650 mg PO Q6H PRN PRN mild pain 12/12/23 08/24/24 History metoprolol succinate 50 mg 50 mg PO QHS #90 tabs 12/2208/24/24 Rx tablet,extended release 24 hr warfarin 4 mg tablet 4 mg PO .COMPLEX blood thinn er 02/07/24 08/24/24 Rx #180 tabs hydroxychloroquine 200 mg tablet 200 mg PO BID 4 08/24/24 History (Plaquenil) enoxaparin 80 mg/0.8 mL 80 mg (0.8 mL) subcut Q12H P RN 03/03/24 08/24/24 Rx subcutaneous syringe bridging for mechanical hear t valve/ Low INR #8 mL warfarin 10 mg tablet 10 mg PO QHS #90 tabs 08/24/24 Rx amoxicillin 500 mg tablet 2,000 mg (4 x 500 mg) PO ONC E PRN 03/28/24 08/24/24 Rx dental #4 tabs ipratropium bromide 42 mcg (0.06 2 spray intranasal TI D PRN 05/11/24 08/24/24 History %) nasal spray levetiracetam 1,000 mg tablet 1,000 mg PO BID seizures #180 tabs 05/24/24 08/24/24 Rx Central Venous Access Central Venous Access: No Laboratory Tests 08/23/24 09:37 WBC 4.4 Hgb 13.8 Hct 40.1 Plt Count 149 L Absolute Neuts (auto) 3.0 Sodium 138 Potassium 4.1 Chloride 106 Carbon Dioxide 20.9 L BUN 20 H Creatinine 0.95 Glucose 89 Calcium 9.1 Iron 72 TIBC 212 L Iron Saturation 34.0 Unsaturated IBC 140 L Ferritin 1184 H GGT 17 AST 31 ALT 24 Alkaline Phosphatase 103 Exam Physical Exam Const alert, oriented x3 and healthy appearing HEENT normocephalic and head/scalp atraumatic Eyes General Eye: normal appearance of both eyes Resp normal respiratory effort and clear to auscultation bilaterally Cardio regular rate, regular rhythm, S1 normal heart sound and S2 normal heart sound Cardio Narrative: S2 loud GI normal to inspection, nondistended, normoactive bowel sounds and soft to palpation Extremity no clubbing, cyanosis or edema Psych Attitude: calm and engaged Coding Level of Care Code Off vis,est,level 3 Exam Problem Focused Diagnoses Iron deficiency anemia, unspecified iron deficiency anemia type D50.9 Iron deficiency anemia type: unspecified iron deficiency Lupus anticoagulant positive R76.0 Assessment and Plan Assessment and Plan (1) Iron deficiency anemia: Status: Resolved Qualifiers: Iron deficiency anemia type: unspecified iron deficiency Qualified Code(s): D50.9 - Iron deficiency anemia, unspecified Comment: HGB was 13.8 on 08/23/24 Plan: May discontinue PO iron. Repeat CBC and iron studies in 6 months . (2) Lupus anticoagulant positive: Status: Chronic Plan: To continue observation and follow up with rheumatology. Orders: Orders Ferritin Today D50.9 - Iron deficiency anemia, unspecified Iron+Iron Binding Capacity Today D50.9 - Iron deficiency anemia, unspecified CBC W/Diff, Automated Today D50.9 - Iron deficiency anemia, unspecified Basic Metabolic Profile (BMP) Today D50.9 - Iron deficiency anemia, unspecified Medications: Discontinued ferrous fumarate (Ferrocite) Discontinued Reason: Pt no longer taking TAKE 1 TABLET BY MOUTH TWICE A DAY 60 tabs 2RF supplement 08/24/24 1532 <Electronically signed by Lazara vick NP [employer]> Date _ Lazara Haney NP [employer] Cosigner Signature: Date (if applicable) CC: Dr. Bhupinder Hamlin MD ~ [facility] Work Phone: Reason for referral (narrative)* Outpatient Procedure (Routine) - New Request Specialty Diagnoses / Procedures Referred By Bhumi carranza Ref[facility] Diagnoses Disorder of artery or arteriole (HCC) Pre-operative cardiovascular examination Aortic valve disorder Procedures LUNG DIFFUSION CAPACITY (DLCO) DIFFUSING CAPACITY Yasmin Dawson MD [address] [place] [address] [facility] [place] [address] [place] [address] Referral ID Status Reason Start Date Expiration Date Visits Requested Visits Authorized [id number] New Request Auto-Generat ed Referral 10/07/2023 11/05/2024 1 1 * Outpatient Procedure (Routine) - New Request Specialty Diagnoses / Procedures Referred By Contac t Referred To Contact [facility] Diagnoses Disorder of artery or arteriole (HCC) Pre-operative cardiovascular examination Aortic valve disorder Procedures SPIROMETRY BASELINE ONLY SPMTRY W/VC EXPIRATORY JONATHAN W/WO MXML VOL VNTJ Yasmin Dawson MD [address] [place] [address] [facility] [place] [address] [place] [address] Referral ID Status Reason Start Date Expiration Date Visits Requested Visits Authorized [id number] New Request Auto-Generat ed Referral 10/07/2023 11/05/2024 1 1 * MRI/CT (Routine) - New Request Specialty Diagnoses / Procedures Referred By Bhumi carranza Referred To Contact CT IMAGING Diagnoses Disorder of artery or arteriole (HCC) Pre-operative cardiovascular examination Aortic valve disorder Procedures CTA CHEST (GATED) W IVCON CT ANGIOGRAPHY CHEST W/CONTRAST/NONCONTRAST Yasmin Dawson MD [address] [place] [address] Ct Imaging [place] [address] Referral ID Status Reason Start Date Expiration Date Visits Requested Visits Authorized [id number] New Request Auto-Generat ed Referral 10/07/2023 11/05/2024 1 1 * Outpatient Procedure (Routine) - New Request Specialty Diagnoses / Procedures Referred By Bhumi t Referred To Contact [facility] Diagnoses Disorder of artery or arteriole (HCC) Pre-operative cardiovascular examination Aortic valve disorder Procedures ECHO ECHO TTHRC R-T 2D W/WOM-MODE COMPL SPEC&COLR D Yasmin Dawson MD [address] [place] [address] [facility] [place] [address] [place] [address] Referral ID Status Reason Start Date Expiration Date Visits Requested Visits Authorized [id number] New Request Auto-Generat ed Referral 10/07/2023 10/06/2024 1 1 * Outpatient Procedure (Routine) - New Request Specialty Diagnoses / Procedures Referred By Contac t Referred To Contact [facility] Diagnoses Disorder of artery or arteriole (HCC) Pre-operative cardiovascular examination Aortic valve disorder Procedures ECG COMPLETE ECG ROUTINE ECG W/LEAST 12 LDS W/I&R Yasmin Dawson MD [address] [facility] [place] [address] [facility] [place] [address] [place] [address] Referral ID Status Reason Start Date Expiration Date Visits Requested Visits Authorized [id number] New Request Auto-Generat ed Referral 10/07/2023 10/06/2024 1 1 * Consult, Test, Treat (Routine) - Authorized Specialty Diagnoses / Procedures Referred By Contac t Referred To Contact Neurology Diagnoses Disorder of artery or arteriole (HCC) Pre-operative cardiovascular examination Aortic valve disorder Procedures CONSULT TO NEUROLOGY OFFICE/OUTPATIENT [facility] 60 MINUTES Yasmin Dawson MD [address] [place] [address] Referral ID Status Reason Start Date Expiration Date Visits Requested Visits Authorized [id number] Authorized PCP Requested Referral 10/07/2023 10/06/2024 1 1 * Consult, Test, Treat (Routine) - Authorized Specialty Diagnoses / Procedures Referred By Contac t Referred To Contact Cardiac Surg Diagnoses Disorder of artery or arteriole (HCC) Pre-operative cardiovascular examination Aortic valve disorder Procedures CARDIOTHORACIC PREOP EVALUATION OFFICE/OUTPATIENT [facility] 60 MINUTES Yasmin Dawson MD [address] [place] [address] Referral ID Status Reason Start Date Expiration Date Visits Requested Visits Authorized [id number] Authorized PCP Requested Referral 10/07/2023 10/06/2024 1 1 * Consult, Test, Treat (Routine) - Authorized Specialty Diagnoses / Procedures Referred By Shantaac t Referred To Contact Cardiology Diagnoses Disorder of artery or arteriole (HCC) Pre-operative cardiovascular examination Aortic valve disorder Procedures CONSULT TO CARDIOLOGY OFFICE/OUTPATIENT [facility] 60 MINUTES Yasmin Dawson MD [address] [place] [id number] Referral ID Status Reason Start Date Expiration Date Visits Requested Visits Authorized [id number] Authorized PCP Requested Referral 10/07/2023 10/06/2024 1 1 [facility] for referral (narrative)* Diagnostic Procedure Only (Routine) - Closed Specialty Diagnoses / Procedures Referred By Shantaac t Referred To Contact CT IMAGING Diagnoses Disorder of artery or arteriole (HCC) Pre-operative cardiovascular examination Aortic valve disorder Procedures CTA CHEST (GATED) W IVCON CT ANGIOGRAPHY CHEST W/CONTRAST/NONCONTRAST Yasmin Dawson MD [address] [facility] [place] [place] [address] Ct Imaging [place] [address] Referral ID Status Reason Start Date Expiration Date V isits Requested Visits Authorized [id number] Closed Auto-Generate d Referral 11/03/2023 03/21/2024 1 1 [facility] for referral (narrative)No reason for referral information availableWOhio[facility] Work Phone: [facility] for visit Narrative* Diagnostic Procedure Only (Routine) - Closed Specialty Diagnoses / Procedures Referred By Contac t Referred To Contact MR IMAGING Diagnoses Disorder of artery or arteriole (HCC) Pre-operative cardiovascular examination Aortic valve disorder Convulsions, unspecified convulsion type (HCC) Procedures MRI BRAIN WO IVCON MRI BRAIN BRAIN STEM W/O CONTRAST MATERIAL Yasmin Dawson MD [address] [place] [address] [place] [address] Referral ID Status Reason Start Date Expiration Date V isits Requested Visits Authorized [id number] Closed Auto-Generate d Referral 11/03/2023 03/21/2024 1 1 [facility] Chief Complaint and Reason for Visit Chief Complaint CERVICAL SPINE- NECK sob, chest heaviness PANCYTOPENIA/ MEDIASTINAL LYMPHADENOPATHY MED ONC ELEVATED D-DIMER 1 Y FU (needs after 2:30)(RS FROM 03/20,03/31) WRIST PAIN Reason for Visit Generalized lymphade nopathy Pancytopenia Essential hypertension Nonrheumatic aortic (valve) stenosis Chief Complaint ELEVATED D-DIMER 1 Y FU (needs after 2:30)(RS FROM 03/20,03/31) WRIST PAIN 2MO LABS (PRIOR OR SAME DAY 45 MIN) LOW BACK PAIN MED ONC 4WKS LABS PRIOR specified abnormal findings of blood chemistry SCREENING Reason for Visit Essential hypertensi on Nonrheumatic aortic (valve) stenosis Low back pain D-dimer, elevated Iron deficiency anemia Pancytopenia D-dimer, elevated Iron deficiency anemia Pancytopenia Chief Complaint 2MO LABS (PRIOR OR S SERA DAY 45 MIN) LOW BACK PAIN MED ONC 4WKS LABS PRIOR specified abnormal findings of blood chemistry SCREENING S/O- EVERY 3MOS EORDER Reason for Visit Low back pain D-dimer, elevated Iron deficiency anemia Pancytopenia D-dimer, elevated Iron deficiency anemia Pancytopenia Chief Complaint 2MO LABS (PRIOR OR S SERA DAY 45 MIN) LOW BACK PAIN MED ONC 4WKS LABS PRIOR specified abnormal findings of blood chemistry SCREENING S/O- EVERY 3MOS EORDER BRAIN LESION/ CAROTID STENOSIS/ ABD PAIN, SEIZURES BRAIN LESION SEIZURE Reason for Visit Low back pain D-dimer, elevated Iron deficiency anemia Pancytopenia D-dimer, elevated Iron deficiency anemia Pancytopenia Chief Complaint 2MO LABS (PRIOR OR S SERA DAY 45 MIN) LOW BACK PAIN MED ONC 4WKS LABS PRIOR specified abnormal findings of blood chemistry SCREENING S/O- EVERY 3MOS EORDER BRAIN LESION/ CAROTID STENOSIS/ ABD PAIN, SEIZURES BRAIN LESION SEIZURE 2 MO LABS PRIOR Reason for Visit Low back pain D-dimer, elevated Iron deficiency anemia Pancytopenia D-dimer, elevated Iron deficiency anemia Pancytopenia D-dimer, elevated Iron deficiency anemia Lupus anticoagulant positive Chief Complaint 2MO LABS (PRIOR OR S SERA DAY 45 MIN) LOW BACK PAIN MED ONC 4WKS LABS PRIOR specified abnormal findings of blood chemistry SCREENING S/O- EVERY 3MOS EORDER BRAIN LESION/ CAROTID STENOSIS/ ABD PAIN, SEIZURES BRAIN LESION SEIZURE 2 MO LABS PRIOR CAROTID STENOSIS Reason for Visit Low back pain D-dimer, elevated Iron deficiency anemia Pancytopenia D-dimer, elevated Iron deficiency anemia Pancytopenia D-dimer, elevated Iron deficiency anemia Lupus anticoagulant positive Chief Complaint S/O- EVERY 3MOS EORDER BRAIN LESION/ CAROTID STENOSIS/ ABD PAIN, SEIZURES BRAIN LESION SEIZURE 2 MO LABS PRIOR CAROTID STENOSIS HEART MURMER Reason for Visit D-dimer, elevated Iron deficiency anemia Lupus anticoagulant positive Chief Complaint BRAIN LESION/ CAROTI D STENOSIS/ ABD PAIN, SEIZURES BRAIN LESION SEIZURE 2 MO LABS PRIOR CAROTID STENOSIS HEART MURMER SEIZURE EORDER FROM DR DAWSON Reason for Visit D-dimer, elevated Iron deficiency anemia Lupus anticoagulant positive Epilepsy History of cerebrovascular disease Chief Complaint CAROTID STENOSIS HEART MURMER SEIZURE EORDER FROM DR DAWSON Reason for Visit Epilepsy History of cerebrovascular disease Chief Complaint EORDER BILATERAL KNEE PAIN PT HAS RX 6MO LABS PRIOR 1 Y FU REDRAW MED ONC Reason for Visit D-dimer, elevated Iron deficiency anemia Lupus anticoagulant positive Essential hypertension Nonrheumatic aortic (valve) stenosis Chief Complaint EORDER BILATERAL KNEE PAIN PT HAS RX 6MO LABS PRIOR 1 Y FU REDRAW MED ONC 4 M FU EORDER Reason for Visit D-dimer, elevated Iron deficiency anemia Lupus anticoagulant positive Essential hypertension Nonrheumatic aortic (valve) stenosis Fatigue Anticardiolipin antibody positive Epilepsy History of cerebrovascular disease Chief Complaint EORDER BILATERAL KNEE PAIN PT HAS RX 6MO LABS PRIOR 1 Y FU REDRAW 4 M FU EORDER MED ONC S/O Reason for Visit D-dimer, elevated Iron deficiency anemia Lupus anticoagulant positive Essential hypertension Nonrheumatic aortic (valve) stenosis Fatigue Anticardiolipin antibody positive Epilepsy History of cerebrovascular disease Chief Complaint EORDER S/O B12 inject 6WKS LABS MED ONC B12 OLECRANON BURSITIS, RIGHT ELBOW. RX HERE 4 M FU S/O Reason for Visit Fatigue SLE (systemic lupus erythematosus) Lupus anticoagulant positive Iron deficiency anemia Fatigue Epilepsy Fatigue History of cerebrovascular disease Chief Complaint B12 inject 6WKS LABS MED ONC B12 4 M FU S/O B12 inject OLECRANON BURSITIS, RIGHT ELBOW. RX HERE SCREENING OBESITY Reason for Visit Fatigue SLE (systemic lupus erythematosus) Lupus anticoagulant positive Iron deficiency anemia Fatigue Epilepsy Fatigue History of cerebrovascular disease Chief Complaint 4 M FU S/O B12 inject OLECRANON BURSITIS, RIGHT ELBOW. RX HERE SCREENING OBESITY OBESITY B12 inject S/O Reason for Visit Epilepsy Fatigue History of cerebrovascular disease Fatigue Fatigue Chief Complaint B12 inject OLECRANON BURSITIS, RIGHT ELBOW. RX HERE SCREENING OBESITY OBESITY B12 inject S/O B-12 6MO LABS MED ONC S/O Reason for Visit Fatigue Fatigue Iron deficiency anemia Lupus anticoagulant positive SLE (systemic lupus erythematosus) Chief Complaint OBESITY B12 inject S/O B-12 6MO LABS MED ONC S/O B12 inject Reason for Visit Fatigue Iron deficiency anemia Lupus anticoagulant positive SLE (systemic lupus erythematosus) Fatigue Chief Complaint S/O B12 inject B12 inject B12 inject 4MO LABS MED ONC B12 Reason for Visit Fatigue Fatigue Fatigue Adult celiac disease Iron deficiency anemia Lupus anticoagulant positive SLE (systemic lupus erythematosus) Fatigue Chief Complaint B12 inject B12 inject 4MO LABS MED ONC B12 9 MO FU B12 inject EORDER FROM DR DAWSON - [address] Reason for Visit Fatigue Fatigue Adult celiac disease Iron deficiency anemia Lupus anticoagulant positive SLE (systemic lupus erythematosus) Fatigue Epilepsy Fatigue Fatigue Chief Complaint Admit Date MED ONC February 23, 2024 1 :52pm 6MO LABS February 24, 2024 1 :52pm Heart valve replacement March 20, 2 024 3:15pm S/O- INR- March 21, 2024 2:41pm CAROTID STENOSIS March 29, 2024 1: 45pm CAROTID STENOSIS March 29, 2024 1: 59pm Heart valve replacement April 17 3:15pm S/O INR- FINGERSTICK April 21, 2024 12:43pm S/O INR- FINGERSTICK April 27, 2024 4:21pm 6 M FU May 11, 2024 4:00pm 1 Y FU May 24, 2024 10:3 0am [id number] June 15, 2024 2:3 8pm Reason for Visit Admit Date Lupus anticoagulant positive February 1:52pm SLE (systemic lupus erythematosus) Decem 2023 1:52pm Iron deficiency anemia February 23 1:52pm Postoperative atrial fibrillation Februa 2024 4:00pm H/O mechanical aortic valve replacement May 11, 2024 4:00pm 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, 2024 4:00pm Obesity May 24, 2024 10:3 0am Epilepsy May 24, 2024 10:3 0am Chief Complaint Admit Date Heart valve replacement March 20, 2 024 3:15pm S/O- INR- March 21, 2024 2:41pm CAROTID STENOSIS March 29, 2024 1: 45pm CAROTID STENOSIS March 29, 2024 1: 59pm Heart valve replacement April 17 3:15pm S/O INR- FINGERSTICK April 21, 2024 12:43pm S/O INR- FINGERSTICK April 27, 2024 4:21pm 6 M FU May 11, 2024 4:00pm 1 Y FU May 24, 2024 10:3 0am S/[id number] June 15, 2024 2:3 8pm Reason for Visit Admit Date Postoperative atrial fibrillation ua 2024 4:00pm H/O mechanical aortic valve replacement May 11, 2024 4:00pm 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, 2024 4:00pm Obesity May 24, 2024 10:3 0am Epilepsy May 24, 2024 10:3 0am Chief Complaint Admit Date S/O INR- FINGERSTICK April 21, 2024 12:43pm S/O INR- FINGERSTICK April 27, 2024 4:21pm 6 M FU May 11, 2024 4:00pm 1 Y FU May 24, 2024 10:3 0am S/[id number] June 15, 2024 2:3 8pm S/G-[id number]-[id number] August 16, 2024 12:22 pm Chief Complaint Admit Date S/O INR- FINGERSTICK April 27, 2024 4:21pm 6 M FU May 11, 2024 4:00pm 1 Y FU May 24, 2024 10:3 0am S/P-[id number] June 15, 2024 2:3 8pm S/G-TAO-[id number] August 16, 2024 12:22 pm MED ONC August 23, 2024 9:33a m 6MO LABS PRIOR August 24, 2024 2:53p m Reason for Visit Admit Date Postoperative atrial fibrillation ua 2024 4:00pm H/O mechanical aortic valve replacement May 11, 2024 4:00pm 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, 2024 4:00pm Obesity May 24, 2024 10:3 0am Epilepsy May 24, 2024 10:3 0am Lupus anticoagulant positive August 24, 2 025 2:53pm Iron deficiency anemia August 24, 2024 2: 53pm Chief Complaint Admit Date 1 Y FU May 24, 2024 10:3 0am S/[id number] June 15, 2024 2:3 8pm S/T-GKQ-[id number] August 16, 2024 12:22 pm MED ONC August 23, 2024 9:33a m 6MO LABS PRIOR August 24, 2024 2:53p m 1 Y FU September 12, 2024 3:17 pm Reason for Visit Admit Date Obesity May 24, 2024 10:3 0am Epilepsy May 24, 2024 10:3 0am Lupus anticoagulant positive August 24, 2 025 2:53pm Iron deficiency anemia August 24, 2024 2: 53pm Chief Complaint Admit Date S/K-[id number]-[id number] June 15, 2024 2:3 8pm S/E-OYW-LAWEIFNTVMV August 16, 2024 12:22 pm MED ONC August 23, 2024 9:33a m 6MO LABS PRIOR August 24, 2024 2:53p m 1 Y FU September 12, 2024 3:17 pm S/M-YVB-CSIYSXMZXUI September 19, 2024 4:19p m Reason for Visit Admit Date Lupus anticoagulant positive August 24, 2 025 2:53pm Iron deficiency anemia August 24, 2024 2: 53pm Postoperative atrial fibrillation August 212024 3:17pm H/O mechanical aortic valve replacement September 12, 2024 3:17pm Sternal wound dehiscence September 12, 2024 3:17pm Chief Complaint Admit Date S/G-IMF-[id number] August 16, 2024 12:22 pm MED ONC August 23, 2024 9:33a m 6MO LABS PRIOR August 24, 2024 2:53p m 1 Y FU September 12, 2024 3:17 pm PROSTHETIC HEART VALVE October 17, 2024 2 :43pm S/Z-UPB-WLJPCOWALRL October 17, 2024 2:45 pm Chief Complaint Admit Date MED ONC August 23, 2024 9:33a m 6MO LABS PRIOR August 24, 2024 2:53p m 1 Y FU September 12, 2024 3:17 pm PROSTHETIC HEART VALVE October 17, 2024 2 :43pm S/F-VOI-MPBCCOCXOVO October 17, 2024 2:45 pm S/R-NOK-QZKYAOQZMRH November 21, 2024 3:55pm S/H-OKC-IFKYOZHSQUO December 20, 2024 2: 19pm Advance Directives No Advanced Directives Records Found Date Activated Date Inactivated Comments 01/02/2024 7:22 PM 01/09/2024 6:58 PM Question Answer Comments Full Code Order Discussed With: Patient Advance Directive Response Recorded Date/ Time Advance Directives No July 20, 2013 10:03am Living Will No May 09 9:23pm Power of Melting Supervisor No May 09, 2021 9:23pm Advance Directive Response Recorded Date/ Time Advance Directives No July 20, 2013 9:03am Living Will No May 09 8:23pm Power of Melting Supervisor No May 09, 2021 8:23pm Advance Directive Response Recorded Date/ Time Advance Directives No July 20, 2013 10:03am Living Will No July 21, 2022 10 :07am Power of Melting Supervisor No July 21, 2022 10:07am Advance Directive Response Recorded Date/ Time Advance Directives No July 20, 2013 9:03am Living Will No July 21, 2022 9: 07am Power of Melting Supervisor No July 21, 2022 9:07am Date Activated Date Inactivated Comments 01/02/2024 7:22 PM Advance Directive Response Recorded Date/ Time Living Will No July 21, 2022 10 :07am Do you have a Healthcare Power of Melting Supervisor? No July 21, 2022 10:07am Living Will No May 09 9:23pm Do you have a Healthcare Power of Melting Supervisor? No May 09, 2021 9:23pm Living Will No March 21 11:01pm Do you have a Healthcare Power of Melting Supervisor? No March 21, 2024 11:01pm Living Will No March 22 1:47am Do you have a Healthcare Power of Melting Supervisor? No March 22, 2024 1:47am Living Will No April 22 3:14am Do you have a Healthcare Power of Melting Supervisor? No April 22, 2024 3:14am Living Will No May 20, 2024 8:28am Do you have a Healthcare Power of Melting Supervisor? No May 20, 2024 8:28am Living Will No February 18 11:24pm Do you have a Healthcare Power of Melting Supervisor? No February 19, 2024 11:24pm Living Will No February 19 1:51am Do you have a Healthcare Power of Melting Supervisor? No February 20, 2024 1:51am Advance Directives No September 26 9:45am Advance Directive Response Recorded Date/ Time Living Will No July 21, 2022 10 :07am Do you have a Healthcare Power of Melting Supervisor? No July 21, 2022 10:07am Living Will No March 21 11:01pm Do you have a Healthcare Power of Melting Supervisor? No March 21, 2024 11:01pm Living Will No March 22 1:47am Do you have a Healthcare Power of Melting Supervisor? No March 22, 2024 1:47am Living Will No April 22 3:14am Do you have a Healthcare Power of Melting Supervisor? No April 22, 2024 3:14am Living Will No May 20, 2024 8:28am Do you have a Healthcare Power of Melting Supervisor? No May 20, 2024 8:28am Living Will No February 18 11:24pm Do you have a Healthcare Power of Melting Supervisor? No February 19, 2024 11:24pm Living Will No February 19 1:51am Do you have a Healthcare Power of Melting Supervisor? No February 20, 2024 1:51am Advance Directives No September 26 9:45am Advance Directive Response Recorded Date/ Time Living Will No July 21, 2022 10 :07am Do you have a Healthcare Power of Melting Supervisor? No July 21, 2022 10:07am Living Will No March 21 11:01pm Do you have a Healthcare Power of Melting Supervisor? No March 21, 2024 11:01pm Living Will No April 22 3:14am Do you have a Healthcare Power of Melting Supervisor? No April 22, 2024 3:14am Living Will No May 20, 2024 8:28am Do you have a Healthcare Power of Melting Supervisor? No May 20, 2024 8:28am Living Will No June 19, 2024 9:37pm Do you have a Healthcare Power of Melting Supervisor? No June 19, 2024 9:37pm Advance Directives No September 26 9:45am Advance Directive Response Recorded Date/ Time Living Will No July 21, 2022 10 :07am Do you have a Healthcare Power of Melting Supervisor? No July 21, 2022 10:07am Living Will No May 09 9:23pm Do you have a Healthcare Power of Melting Supervisor? No May 09, 2021 9:23pm Living Will No April 22 3:14am Do you have a Healthcare Power of Melting Supervisor? No April 22, 2024 3:14am Living Will No May 20, 2024 8:28am Do you have a Healthcare Power of Melting Supervisor? No May 20, 2024 8:28am Living Will No June 19, 2024 9:37pm Do you have a Healthcare Power of Melting Supervisor? No June 19, 2024 9:37pm Advance Directives No September 26 9:45am Advance Directive Response Recorded Date/ Time Living Will No July 21, 2022 10 :07am Do you have a Healthcare Power of Melting Supervisor? No July 21, 2022 10:07am Living Will No May 09 9:23pm Do you have a Healthcare Power of Melting Supervisor? No May 09, 2021 9:23pm Living Will No May 20, 2024 8:28am Do you have a Healthcare Power of Melting Supervisor? No May 20, 2024 8:28am Living Will No June 19, 2024 9:37pm Do you have a Healthcare Power of Melting Supervisor? No June 19, 2024 9:37pm Advance Directives No September 26 9:45am Advance Directive Response Recorded Date/ Time Living Will No July 21, 2022 10 :07am Do you have a Healthcare Power of Melting Supervisor? No July 21, 2022 10:07am Living Will No May 09 9:23pm Do you have a Healthcare Power of Melting Supervisor? No May 09, 2021 9:23pm Living Will No May 20, 2024 8:28am Do you have a Healthcare Power of Melting Supervisor? No May 20, 2024 8:28am Living Will No August 19, 2024 8 :23pm Do you have a Healthcare Power of Melting Supervisor? No August 19, 2024 8:23pm Living Will No June 19, 2024 9:37pm Do you have a Healthcare Power of Melting Supervisor? No June 19, 2024 9:37pm Advance Directives No September 26 9:45am Advance Directive Response Recorded Date/ Time Living Will No July 21, 2022 10 :07am Do you have a Healthcare Power of Melting Supervisor? No July 21, 2022 10:07am Living Will No May 09 9:23pm Do you have a Healthcare Power of Melting Supervisor? No May 09, 2021 9:23pm Living Will No August 19, 2024 8 :23pm Do you have a Healthcare Power of Melting Supervisor? No August 19, 2024 8:23pm Living Will No June 19, 2024 9:37pm Do you have a Healthcare Power of Melting Supervisor? No June 19, 2024 9:37pm Advance Directives No September 26 9:45am Advance Directive Response Recorded Date/ Time Living Will No July 21, 2022 10 :07am Do you have a Healthcare Power of Melting Supervisor? No July 21, 2022 10:07am Living Will No May 09 9:23pm Do you have a Healthcare Power of Melting Supervisor? No May 09, 2021 9:23pm Living Will No August 19, 2024 8 :23pm Do you have a Healthcare Power of Melting Supervisor? No August 19, 2024 8:23pm Advance Directives No September 26 9:45am Summary Purpose Family History No Family History Records Found Relationship Condition Age at Onset Recorded Date/T allan Not Specified Diabetes mellitus Unknown Arthritis Unknown Cardiac disease Unknown Myocardial infarction Unknown Malignant neoplasm Unknown Hypertension Unknown Relationship Condition Age at Onset Recorded Date/T allan grandmother Cerebrovascular accident (CVA) Unknown Malignant neoplasm of uterus Unknown uncle Cardiac disease Unknown Myocardial infarction Unknown Coronary artery disease Unknown Hypertension Unknown mother Diabetes mellitus Unknown Reason for Referral Specialty Diagnoses / Procedures Referred By Contac t [facility]erred To [facility] Procedures CARDIOVASCULAR MEDICINE OP FOLLOW UP APPT ORDER Talha Loza MD [address] [place] [address] [facility] [place] [address] [place] [address] Referral ID Status Reason Start Date Expiration Date Visits Requested Visits Authorized [id number] Ref Not Required PCP Requested Referral 11/03/2023 11/02/2024 1 1 Additional Source Comments Goals (unrecognized section and content) Goals may be documented in a n alternate sectionGoals may be documented in an alternate sectionGoals may be documented in an alternate sectionGoals may be documented in an alternate sectionGoals may be documented in an alternate sectionGoals may be documented in an alternate section No data available for this section No data available for this sectionGoals may be documented in an alternate section No data available for this section No data available for this sectionGoals may be documented in an alternate section No data available for this sectionGoals may be documented in an alternate sectionGoals may be documented in an alternate sectionGoals may be documented in an alternate sectionGoals may be documented in an alternate sectionGoals may be documented in an alternate sectionGoals may be documented in an alternate sectionGoals may be documented in an alternate sectionGoals may be documented in an alternate sectionGoals may be documented in an alternate sectionGoals may be documented in an alternate sectionGoals may be documented in an alternate sectionGoals may be documented in an alternate sectionGoals may be documented in an alternate sectionGoals may be documented in an alternate sectionGoals may be documented in an alternate sectionGoals may be documented in an alternate sectionGoals may be documented in an alternate sectionGoals may be documented in an alternate sectionGoals may be documented in an alternate sectionGoals may be documented in an alternate sectionGoals may be documented in an alternate sectionGoals may be documented in an alternate sectionGoals may be documented in an alternate sectionGoals may be documented in an alternate section Care Team (unrecognized sect ion and content) Care Team Personnel Name: BHUPINDER HAMLIN MD Member Role: Primary Care Physician Address: Address: [address] [place], [place] [address] Name: KARLA CERVANTES MD Position: P4 Oncology Provider Med Service: SECURITY INSTALLATION SALES TECHNICIAN-ONC Infusion Therapy Member Role: Gynecologic Oncologist Address: Address: [address] [place] [address] [place]nec[place] [address]- [place] Care Team Related Persons Name: MARIANO BROWNING Care Team Personnel Name: BHUPINDER HAMLIN MD Member Role: Primary Care Physician Address: Address[facility] [address] [place] [address]- [place] Name: KARLA CERVANTES MD Position: P4 Oncology Provider Med Service: SECURITY INSTALLATION SALES TECHNICIAN-ONC Infusion Therapy Member Role: Gynecologic Oncologist Address: Address: [address] [place] [address] [place] [address]- Care Team Related Persons Name: MARIANO BROWNING Care Team Personnel Name: BHUPINDER HAMLIN MD Member Role: Primary Care Physician Address: Address: [facility] [address] [place] [address]- [place] Name: KARLA CERVANTES MD Position: P4 Oncology Provider Med Service: SECURITY INSTALLATION SALES TECHNICIAN-ONC Infusion Therapy Member Role: Gynecologic Oncologist Address: Address: [address] [place] [address] [place] [address]- Care Team Related Persons Name: MARIANO BROWNING Care Team Personnel Name: BHUPINDER HAMLIN MD Member Role: Primary Care Physician Address: Address: [facility] [address] [place] [address]- [place] Name: KARLA CERVANTES MD Position: P4 Oncology Provider Med Service: SECURITY INSTALLATION SALES TECHNICIAN-ONC Infusion Therapy Member Role: Gynecologic Oncologist Address: Address: [address] [place] [address] [place] [address]- Care Team Related Persons Name: SHAYNE BROWNINGRIS Care Team Personnel Name: BHUPINDER HAMLIN MD Member Role: Primary Care Physician Address: Address: [facility] [address] [place] [address]- [place] Name: KARLA CERVANTES MD Position: P4 Oncology Provider Member Role: Gynecologic Oncologist Address: Address: [address] [place] [address] [place] [address]- [place] Name: KRYS LAU Position: P4 Oncology Provider Member Role: Gynecologic Oncologist Address: Address: [address] [place] [address] [place] [address]- Care Team Related Persons Name: MARIANO BROWNING INFORMATION SOURCE (unrecogn ized section and content) DATE CREATED AUTHOR 02/10/2022 [facility] ([place]) DATE CREATED AUTHOR AUTHOR'S ORGANIZ ATION 01/29/2024 [facility] DATE CREATED AUTHOR AUTHOR'S ORGANIZ ATION 02/02/2025 [facility] Care Teams (unrecognized sec tion and content) Team Status: Active Member Role Status Dates Dr. Bhupinder Hamlin MD Primary Care Provider Active Team Status: Inactive Member Role Status Dates Dr. Adam Solorzano MD Attending Provider Active S tart: March 20, 2024 End: March 21, 2024 Dr. Adam Solorzano MD Referring Provider Active S tart: March 20, 2024 End: March 21, 2024 Dr. Bhupinder Hamlin MD Primary Care Provider Active Start: March 20, 2024 End: March 21, 2024 Team Status: Inactive Member Role Status Dates Dr. Bhupinder Hamlin MD Primary Care Provider Active Start: March 21, 2024 End: March 21, 2024 Dr. Adam Solorzano MD Attending Provider Active S tart: March 21, 2024 End: March 21, 2024 Dr. Adam Solorzano MD Referring Provider Active S tart: March 21, 2024 End: March 21, 2024 Magaly Huang PA, PA Other Provider Active Start: March 21, 2024 End: March 21, 2024 Team Status: Inactive Member Role Status Dates Dr. Bhupinder Halmin MD Primary Care Provider Active Start: March 29, 2024 End: March 29, 2024 Dr. Bhupinder Hamlin MD Attending Provider Active Start: March 29, 2024 End: March 29, 2024 Dr. Bhupinder Hamlin MD Referring Provider Active Start: March 29, 2024 End: March 29, 2024 Team Status: Active Member Role Status Dates Dr. Prince Turner MD Attending Provider Active Start: March 29, 2024 Dr. Bhupinder Hamlin MD Referring Provider Active Start: March 29, 2024 Team Status: Inactive Member Role Status Dates Dr. Adam Solorzano MD Attending Provider Active S tart: April 17, 2024 End: April 21, 2024 Dr. Adam Solorzano MD Referring Provider Active S tart: April 17, 2024 End: April 21, 2024 Dr. Bhupinder Hamlin MD Primary Care Provider Active Start: April 17, 2024 End: April 21, 2024 Team Status: Inactive Member Role Status Dates Dr. Bhupinder Hamlin MD Primary Care Provider Active Start: April 21, 2024 End: April 21, 2024 Dr. Adam Solorzano MD Attending Provider Active S tart: April 21, 2024 End: April 21, 2024 Magaly Huang PA, PA Other Provider Active Start: April 21, 2024 End: April 21, 2024 WANDY ROWAN MD Referring Provider Active Star t: April 21, 2024 End: April 21, 2024 Team Status: Inactive Member Role Status Dates Dr. Bhupinder Hamlin MD Primary Care Provider Active Start: April 27, 2024 End: May 19, 2024 Dr. Adam Solorzano MD Attending Provider Active S tart: April 27, 2024 End: May 19, 2024 Magaly Huang PA, PA Other Provider Active Start: April 27, 2024 End: May 19, 2024 WANDY ROWAN MD Referring Provider Active Star t: April 27, 2024 End: May 19, 2024 Team Status: Inactive Member Role Status Dates Dr. Bhupinder Hamlin MD Primary Care Provider Active Start: May 10, 2024 End: May 10, 2024 Gab Lockett BALLOON SELLER, BALLOON SELLER-C Attending Provider Active Start: May 10, 2024 End: May 10, 2024 Dr. Adam Solorzano MD Other Provider Active Start : May 10, 2024 End: May 10, 2024 Team Status: Inactive Member Role Status Dates Dr. Bhupinder Hamlin MD Primary Care Provider Active Start: May 11, 2024 End: May 11, 2024 Dr. Bhupinder Hamlin MD Referring Provider Active Start: May 11, 2024 End: May 11, 2024 Bhupinder Bernstein BALLOON SELLER, BALLOON SELLER-C Attending Provider Active S tart: May 11, 2024 End: May 11, 2024 Team Status: Inactive Member Role Status Dates Dr. Bhupinder Hamlin MD Primary Care Provider Active Start: May 24, 2024 End: May 24, 2024 Dr. Bhupinder Hamlin MD Referring Provider Active Start: May 24, 2024 End: May 24, 2024 Dr. Deejay Dawson MD Attending Provider Active Start: May 24, 2024 End: May 24, 2024 Team Status: Inactive Member Role Status Dates Dr. Bhupinder Hamlin MD Primary Care Provider Active Start: June 15, 2024 End: June 15, 2024 Dr. Adam Solorzano MD Attending Provider Active S tart: June 15, 2024 End: June 15, 2024 Magaly OSUNA PA Other Provider Active Start: June 15, 2024 End: June 15, 2024 WANDY ROWAN MD Referring Provider Active Star t: June 15, 2024 End: June 15, 2024 WANDY ROWAN MD Other Provider Active Start: M 2024 End: June 15, 2024 Dr. Deejay Dawson MD Other Provider Active S tart: June 15, 2024 End: June 15, 2024 Team Status: Inactive Member Role Status Dates Dr. Bhupinder Hamlin MD Primary Care Provider Active Start: July 04, 2024 End: July 04, 2024 Magaly OSUNA PA Attending Provider Active Start: July 04, 2024 End: July 04, 2024 Magaly Huang PA, PA Referring Provider Active Start: July 04, 2024 End: July 04, 2024 Team Status: Active Member Role Status Dates Dr. Bhupinder Recinos MD Family Provider Active Dr. Bhupinder Hamlin MD Primary Care Provider Active Team Status: Inactive Member Role Status Dates Dr. Kennedy Jaquez MD Referring Provider Active Bhupinder Bernstein BALLOON SELLER, BALLOON SELLER-C Attending Provider Active Dr. Bhupinder Hamlin MD Primary Care Provider Active Team Status: Inactive Member Role Status Dates Dr. Alex Harrell MD Attending Provider Active Dr. Bhupinder Hamlin MD Primary Care Provider, Referr ing Provider Active Team Status: Active Member Role Status Dates Dr. Kennedy Jaquez MD Primary Care Provider Active Dr. Alex Harrell MD Attending Provider, Referring Pro vider Active Team Status: Inactive Member Role Status Dates Dr. Bhupinder Hamlin MD Primary Care Provider Active Dr. Anila Weiss DO Attending Provider, Referr ing Provider Active Team Status: Inactive Member Role Status Dates Dr. Bhupinder Hamlin MD Primary Care Pr ovider, Attending Provider, Referring Provider Active Team Status: Inactive Member Role Status Dates Dr. Bhupinder Hamlin MD Primary Care Provider Active Dr. Deejay Dawson MD Attending Provider, Referring Provider Active Team Status: Active Member Role Status Dates Dr. Bhupinder Hamlin MD Primary Care Provider, Attend ing Provider Active Team Status: Inactive Member Role Status Dates Dr. Bhupinder Hamlin MD Primary Care Provider, Referr ing Provider Active Dr. Deejay Dawson MD Attending Provider Active Team Status: Inactive Member Role Status Dates Dr. Bhupinder Halmin MD Primary Care Provider, Attend ing Provider Active Team Status: Active Member Role Status Dates Dr. Bhupinder Hamlin MD Primary Care Provider Active Dr. Deejay Dawson MD Attending Provider, Referring Provider Active Team Status: Inactive Member Role Status Dates Dr. Bhupinder Hamlin MD Primary Care Provider, Referr ing Provider Active Dr. Alex Harrell MD Attending Provider Active Team Status: Inactive Member Role Status Dates Dr. Bhupinder Hamlin MD Primary Care Provider Active Dr. Deejay Dawson MD Attending Provider, Referring Provider Active bn nurse Active Team Status: Active Member Role Status Dates Dr. Bhupinder Hamlin MD Primary Care Provider Active Dr. Anila Weiss DO Attending Provider, Referr ing Provider Active Team Status: Inactive Member Role Status Dates Dr. Gloria Thompson DO Attending Provider, Referrin g Provider Active Dr. Bhupinder Hamlin MD Primary Care Provider Active Dr. Deejay Dawson MD Other Provider Active Team Status: Active Member Role Status Dates Dr. Bhupinder Hamlin MD Primary Care Provider Active Yara Leo BALLOON SELLER, BALLOON SELLER-C Attending Provider Active Team Status: Inactive Member Role Status Dates Dr. Bhupinder Hamlin MD Primary Care Provider Active Yara Loe BALLOON SELLER, BALLOON SELLER-C Attending Provider Active Team Status: Inactive Member Role Status Dates Dr. Bhupinder Hamlin MD Primary Care Provider Active Yara Leo BALLOON SELLER, BALLOON SELLER-C Attending Provider, Referring Pro vider Active Team Status: Inactive Member Role Status Dates Dr. Bhupinder Hamlin MD Primary Care Provider Active WANDY ROWAN MD Attending Provider, Referring Provid er Active Dr. Deejay Dawson MD Other Provider Active Engineering Model Maker Relationship Specialty Start Date End Date Bhupinder Hamlin MD [address] [place] [address] PCP - General Family Medicine 10/04/23 Bhupinder Thompson MD [address] [place] [address] 10/04/23 Adam Solorzano MD [address] [place] [address] Referring Cardiology 10/04/23 Yasmin Dawson MD [address] [place] [address] Surgeon Cardiac Surg 10/04/23 Engineering Model Maker Relationship Specialty Start Date End Date Bhupinder Hamlin MD [address] [facility] [address] [place] [address] PCP - General Family Medicine 10/04/23 Bhupinder Thompson MD [address] [facility] [address] [place] [address] 10/04/23 Adam Solorzano MD [address] [facility] [address] [place] [address] Referring Cardiology 10/04/23 Yasmin Dawson MD [address] [place] [address] Surgeon Cardiac Surg 10/04/23 Engineering Model Maker Relationship Specialty Start Date End Date Bhupinder Hamlin MD [address] [facility] [address] [place] [address] PCP - General Family Medicine 10/04/23 Bhupinder Thompson MD [address] [facility] [address] [place] [address] 10/04/23 Adam Solorzano MD [address] [place] [address] Referring Cardiology 10/04/23 Yasmin Dawson MD [address] [place] [address] Surgeon Cardiac Surg 10/04/23 Talha Loza MD [address] [place] [address] Primary Staff Physician Cardiology 11/03/23 Engineering Model Maker Relationship Specialty Start Date End Date Bhupinder Hamlin MD [address] [facility] [address] [place] [address] PCP - General Family Medicine 10/04/23 Bhupinder Thompson MD [address] [facility] [address] [place] [address] 10/04/23 Adam Solorzano MD [address] [address] [place] [address] Referring Cardiology 10/04/23 Yasmin Dawson MD [address] [place] [address] Surgeon Cardiac Surg 10/04/23 Talha Loza MD [address] [place] [address] Primary Staff Physician Cardiology 11/03/23 Engineering Model Maker Relationship Specialty Start Date End Date Bhupinder Hamlin MD [address] [facility] [address] [place] [address] PCP - General Family Medicine 10/04/23 Bhupinder Thompson MD [address] [facility] [address] [place] [address] 10/04/23 Adam Solorzano MD [address] [place] [address] Referring Cardiology 10/04/23 Yasmin Dawson MD [address] [place] [address] Surgeon Cardiac Surg 10/04/23 Talha Loza MD [address] [place], [place] [address] Primary Staff Physician Cardiology 11/03/23 Engineering Model Maker Relationship Specialty Start Date End Date Bhupinder Hamlin MD [address] [facility] [address] [place] [address] PCP - General Family Medicine 10/04/23 Bhupinder Thompson MD [address] [facility] [address] [place] [address] 10/04/23 Adam Solorzano MD [address] [address] [place] [address] Referring Cardiology 10/04/23 Yasmin Dawson MD [address] [place] [address] Surgeon Cardiac Surg 10/04/23 Talha Loza MD [address] [place] [address] Primary Staff Physician Cardiology 11/03/23 Engineering Model Maker Relationship Specialty Start Date End Date Bhupinder Hamlin MD [address] [address] [place] [address] PCP - General Family Medicine 10/04/23 Bhupinder Thompson MD [address] [place] [address] [place] [address] 10/04/23 Adam Solorzano MD [address] [address] [place] [address] Referring Cardiology 10/04/23 Yasmin Dawson MD [address] [place] [address] Surgeon Cardiac Surg 10/04/23 Talha Loza MD [address] [place] [address] Primary Staff Physician Cardiology 11/03/23 Engineering Model Maker Relationship Specialty Start Date End Date Bhupinder Hamlin MD [address] [place] [address] PCP - General Family Medicine 10/04/23 Bhupinder Thompson MD [address] [address] [place] [address] 10/04/23 Adam Solorzano MD [address] [address] [place] [address] Referring Cardiology 10/04/23 Yasmin Dawson MD [address] [place] [address] Surgeon Cardiac Surg 10/04/23 Talha Loza MD [address] [place], [place] [address] Primary Staff Physician Cardiology 11/03/23 Engineering Model Maker Relationship Specialty Start Date End Date Bhupinder Hamlin MD [address] [facility] [address] [place] [address] PCP - General Family Medicine 10/04/23 Bhupinder Thompson MD [address] [facility] [address] [place] [address] 10/04/23 Adam Solorzano MD [address] [place] [address] [place] [address] Referring Cardiology 10/04/23 Yasmin Dawson MD [address] [place] [address] Surgeon Cardiac Surg 10/04/23 Talha Loza MD [address] [place], [place] [address] Primary Staff Physician Cardiology 11/03/23 Engineering Model Maker Relationship Specialty Start Date End Date Bhupinder Hamlin MD [address] [facility] [address] [place] [address] PCP - General Family Medicine 10/04/23 Bhupinder Thompson MD [address] [facility] [address] [place] [address] 10/04/23 Adam Solorzano MD [address] [place] [address] [place] [address] Referring Cardiology 10/04/23 Yasmin Dawson MD [address] [place] [address] Surgeon Cardiac Surg 10/04/23 Talha Loza MD [address] [place] [address] Primary Staff Physician Cardiology 11/03/23 Engineering Model Maker Relationship Specialty Start Date End Date Bhupinder Hamlin MD [address] [facility] [address] [place] [address] PCP - General Family Medicine 10/04/23 Bhupinder Thompson MD [address] [facility] [address] [place] [address] 10/04/23 Adam Solorzano MD [address] [place] [address] [place] [address] Referring Cardiology 10/04/23 Yasmin Dawson MD [address] [place] [address] Surgeon Cardiac Surg 10/04/23 Talha Loza MD [address] [place] [address] Primary Staff Physician Cardiology 11/03/23 Engineering Model Maker Relationship Specialty Start Date End Date Bhupinder Hamlin MD [address] [place] [address] [place] [address] PCP - General Family Medicine 10/04/23 Bhupinder Thompson MD [address] [place] [address] [place] [address] 10/04/23 Adam Solorzano MD [address] [facility] [address] [place] [address] Referring Cardiology 10/04/23 Yasmin Dawsno MD [address] [place] [address] Surgeon Cardiac Surg 10/04/23 Talha Loza MD [address] [place] [address] Primary Staff Physician Cardiology 11/03/23 Engineering Model Maker Relationship Specialty Start Date End Date Bhupinder Hamlin MD [address] [place] [address] [place] [address] PCP - General Family Medicine 10/04/23 Bhupinder Thompson MD [address] [address] [place] [address] 10/04/23 Adam Solorzano MD [address] [place] [address] [place] [address] Referring Cardiology 10/04/23 Yasmin Dawson MD [address] [place] [address] Surgeon Cardiac Surg 10/04/23 Talha Loza MD [address] [place] [address] Primary Staff Physician Cardiology 11/03/23 Engineering Model Maker Relationship Specialty Start Date End Date Bhupinder Hamlin MD [address] [facility] [address] [place] [address] PCP - General Family Medicine 10/04/23 Bhupinder Thompson MD [address] [facility] [address] [place] [address] 10/04/23 Adam Solorzano MD [address] [place] [address] [place] [address] Referring Cardiology 10/04/23 Yasmin Dawson MD [address] [place] [address] Surgeon Cardiac Surg 10/04/23 Talha Loza MD [address] [place] [address] Primary Staff Physician Cardiology 11/03/23 Engineering Model Maker Relationship Specialty Start Date End Date Bhupinder Hamlin MD [address] [facility] [address] [place] [address] PCP - General Family Medicine 10/04/23 Bhupinder Thompson MD [address] [facility] [address] [place] [address] 10/04/23 Adam Solorzano MD [address] [place] [address] [place] [address] Referring Cardiology 10/04/23 Yasmin Dawson MD [address] [place] [address] Surgeon Cardiac Surg 10/04/23 Talha Loza MD [address] [place] [address] Primary Staff Physician Cardiology 11/03/23 Engineering Model Maker Relationship Specialty Start Date End Date Bhupinder Hamlin MD [address] [facility] [address] [place] [address] PCP - General Family Medicine 10/04/23 Bhupinder Thompson MD [address] [facility] [address] [place] [address] 10/04/23 Adam Solorzano MD [address] [place] [address] [place] [address] Referring Cardiology 10/04/23 Yasmin Dawson MD [address] [place] [address] Surgeon Cardiac Surg 10/04/23 Talha Loza MD [address] [place] [address] Primary Staff Physician Cardiology 11/03/23 Engineering Model Maker Relationship Specialty Start Date End Date Bhupinder Hamlin MD [address] [facility] [address] [place] [address] PCP - General Family Medicine 10/04/23 Bhupinder Thompson MD [address] [facility] [address] [place] [address] 10/04/23 Adam Solorzano MD [address] [place] [address] [place] [address] Referring Cardiology 10/04/23 Yasmin Dawson MD [address] [place] [address] Surgeon Cardiac Surg 10/04/23 Talha Loza MD [address] [place] [address] Primary Staff Physician Cardiology 11/03/23 Engineering Model Maker Relationship Specialty Start Date End Date Bhupinder Hamlin MD [address] [facility] [address] [place] [address] PCP - General Family Medicine 10/04/23 Bhupinder Thompson MD [address] [place] [address] [place] [address] 10/04/23 Adam Solorzano MD [address] [place] [address] [place] [address] Referring Cardiology 10/04/23 Yasmin Dawson MD [address] [place] [address] Surgeon Cardiac Surg 10/04/23 Talha Loza MD [address] [place] [address] Primary Staff Physician Cardiology 11/03/23 Engineering Model Maker Relationship Specialty Start Date End Date Bhupinder Hamlin MD [address] [place] [address] [place] [address] PCP - General Family Medicine 10/04/23 Bhupinder Thompson MD [address] [place] [address] [place] [address] 10/04/23 Adam Solorzano MD [address] [address] [place] [address] Referring Cardiology 10/04/23 Yasmin Dawson MD [address] [place] [address] Surgeon Cardiac Surg 10/04/23 Talha Loza MD [address] [place] [address] Primary Staff Physician Cardiology 11/03/23 Engineering Model Maker Relationship Specialty Start Date End Date Bhupinder Hamlin MD [address] [place] [address] [place] [address] PCP - General Family Medicine 10/04/23 Bhupinder Thompson MD [address] [place] [address] [place] [address] 10/04/23 Adam Solorzano MD [address] [place] [address] [place] [address] Referring Cardiology 10/04/23 Yasmin Dawson MD [address] [place] [address] Surgeon Cardiac Surg 10/04/23 Talha Loza MD [address] [place], [place] [address] Primary Staff Physician Cardiology 11/03/23 Engineering Model Maker Relationship Specialty Start Date End Date Bhupinder Hamlin MD [address] [facility] [address] [place] [address] PCP - General Family Medicine 10/04/23 Bhupinder Thompson MD [address] [facility] [address] [place] [address] 10/04/23 Adam Solorzano MD [address] [facility] [address] [place] [address] Referring Cardiology 10/04/23 Yasmin Dawson MD [address] [place] [address] Surgeon Cardiac Surg 10/04/23 Talha Loza MD [address] [place] [address] Primary Staff Physician Cardiology 11/03/23 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 Model 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 Relationship Specialty Start Date End Date Bhupinder Hamlin MD [address] [place] [address] [place] [address] PCP - General Family Medicine 10/04/23 Bhupinder Thompson MD [address] [place] [address] [place] [address] 10/04/23 Adam Solorzano MD [address] [place] [address] [place] [address] Referring Cardiology 10/04/23 Yasmin Dawson MD [address] [place] [address] Surgeon Cardiac Surg 10/04/23 Talha Loza MD [address] [place], [place] [address] Primary Staff Physician Cardiology 11/03/23 Engineering Model 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 Alex Harrell MD Attending Provider Active S tart: February 23, 2024 Dr. Alex Harrell MD Referring Provider Active S tart: February 23, 2024 Dr. Bhupinder Hamlin MD Primary Care Provider Active Start: February 23, 2024 Team Status: Inactive Member Role Status Dates Dr. Bhupinder Hamlin MD Primary Care Provider Active Start: February 24, 2024 End: February 24, 2024 Dr. Bhupinder Hamlin MD Referring Provider Active Start: February 24, 2024 End: February 24, 2024 Dr. Alex Harrell MD Attending Provider Active S tart: February 24, 2024 End: February 24, 2024 Team Status: Inactive Member Role Status Dates Dr. Bhupinder Hamlin MD Primary Care Provider Active Start: August 16, 2024 End: August 16, 2024 Dr. Adam Solorzano MD Attending Provider Active S tart: August 16, 2024 End: August 16, 2024 Magaly Huang PA, PA Other Provider Active Start: August 16, 2024 End: August 16, 2024 WANDY ROWAN MD Referring Provider Active Star t: August 16, 2024 End: August 16, 2024 WANDY ROWAN MD Other Provider Active Start: [facility] 2024 End: August 16, 2024 Dr. Deejay Dawson MD Other Provider Active S tart: August 16, 2024 End: August 16, 2024 Team Status: Active Member Role Status Dates Dr. Alex Harrell MD Attending Provider Active S tart: August 23, 2024 Dr. Alex Harrell MD Referring Provider Active S tart: August 23, 2024 Dr. Bhupinder Hamlin MD Primary Care Provider Active Start: August 23, 2024 Team Status: Inactive Member Role Status Dates Dr. Bhupinder Hamlin MD Primary Care Provider Active Start: August 24, 2024 End: August 24, 2024 Dr. Bhupinder Hamlin MD Referring Provider Active Start: August 24, 2024 End: August 24, 2024 Lazara Haney BALLOON SELLER, BALLOON SELLER-C Attending Provider Active Start: August 24, 2024 End: August 24, 2024 Team Status: Inactive Member Role Status Dates Dr. Bhupinder Hamlin MD Primary Care Provider Active Start: September 12, 2024 End: September 12, 2024 Dr. Bhupinder Hamlin MD Referring Provider Active Start: September 12, 2024 End: September 12, 2024 Dr. Adam Solorzano MD Attending Provider Active S tart: September 12, 2024 End: September 12, 2024 Team Status: Active Member Role/Relationship Status Dates Dr. Bhupinder Hamlin MD Primary Care Provider Active Team Status: Inactive Member Role/Relationship Status Dates Dr. Bhupinder Hamlin MD Primary Care Provider Active Start: June 15, 2024 End: June 15, 2024 Dr. Adam Solorzano MD Attending Provider Active S tart: June 15, 2024 End: June 15, 2024 Magaly OSUNA PA Other Provider Active Start: June 15, 2024 End: June 15, 2024 WANDY ROWAN MD Referring Provider Active Star t: June 15, 2024 End: June 15, 2024 WANDY ROWNA MD Other Provider Active Start: 2024 End: June 15, 2024 Dr. Deejay Dawson MD Other Provider Active S tart: June 15, 2024 End: June 15, 2024 Team Status: Inactive Member Role/Relationship Status Dates Dr. Bhupinder Hamlin MD Primary Care Provider Active Start: July 04, 2024 End: July 04, 2024 Magaly Huang PA PA Attending Provider Active Start: July 04, 2024 End: July 04, 2024 Magaly Huang PA, PA Referring Provider Active Start: July 04, 2024 End: July 04, 2024 Team Status: Inactive Member Role/Relationship Status Dates Dr. Bhupinder Hamlin MD Primary Care Provider Active Start: August 16, 2024 End: August 16, 2024 Dr. Adam Solorzano MD Attending Provider Active S tart: August 16, 2024 End: August 16, 2024 Magaly OSUNA, PA Other Provider Active Start: August 16, 2024 End: August 16, 2024 WANDY ROWAN MD Referring Provider Active Star t: August 16, 2024 End: August 16, 2024 WANDY ROWAN MD Other Provider Active Start: rafael 2024 End: August 16, 2024 Dr. Deejay Dawson MD Other Provider Active S tart: August 16, 2024 End: August 16, 2024 Team Status: Active Member Role/Relationship Status Dates Dr. Alex Harrell MD Attending Provider Active S tart: August 23, 2024 Dr. Alex Harrell MD Referring Provider Active S tart: August 23, 2024 Dr. Bhupinder Hamlin MD Primary Care Provider Active Start: August 23, 2024 Team Status: Inactive Member Role/Relationship Status Dates Dr. Bhupinder Hamlin MD Primary Care Provider Active Start: August 24, 2024 End: August 24, 2024 Dr. Bhupinder Hamlin MD Referring Provider Active Start: August 24, 2024 End: August 24, 2024 Lazara Haney BALLOON SELLER, BALLOON SELLER-C Attending Provider Active Start: August 24, 2024 End: August 24, 2024 Team Status: Inactive Member Role/Relationship Status Dates Dr. Bhupinder Hamlin MD Primary Care Provider Active Start: September 12, 2024 End: September 12, 2024 Dr. Bhupinder Hamlin MD Referring Provider Active Start: September 12, 2024 End: September 12, 2024 Dr. Adam Solorzano MD Attending Provider Active S tart: September 12, 2024 End: September 12, 2024 Team Status: Active Member Role/Relationship Status Dates Dr. Bhupinder Hamlin MD Primary Care Provider Active Start: September 19, 2024 Dr. Adam Solorzano MD Attending Provider Active S tart: September 19, 2024 Dr. Adam Solorzano MD Referring Provider Active S tart: September 19, 2024 Magaly OSUNA, PA Other Provider Active Start: September 19, 2024 WANDY ROWAN MD Other Provider Active Start: Ira orellana 2024 Dr. Deejay Dawson MD Other Provider Active S tart: September 19, 2024 Team Status: Inactive Member Role/Relationship Status Dates Dr. Bhupinder Hamlin MD Primary Care Provider Active Start: September 21, 2024 End: September 21, 2024 WANDY ROWAN MD Attending Provider Active Star t: September 21, 2024 End: September 21, 2024 WANDY ROWAN MD Referring Provider Active Star t: September 21, 2024 End: September 21, 2024 Team Status: Inactive Member Role/Relationship Status Dates Dr. Bhupinder Hamlin MD Primary Care Provider Active Start: July 04, 2024 End: July 04, 2024 Magaly OSUNA PA Attending Provider Active Start: July 04, 2024 End: July 04, 2024 Magaly Huang PA PA Referring Provider Active Start: July 04, 2024 End: July 04, 2024 Team Status: Inactive Member Role/Relationship Status Dates Dr. Bhupinder Hamlin MD Primary Care Provider Active Start: August 16, 2024 End: August 16, 2024 Dr. Adam Solorzano MD Attending Provider Active S tart: August 16, 2024 End: August 16, 2024 Magaly OSUNA, PA Other Provider Active Start: August 16, 2024 End: August 16, 2024 WANDY ROWAN MD Referring Provider Active Star t: August 16, 2024 End: August 16, 2024 WANDY ROWAN MD Other Provider Active Start: 2024 End: August 16, 2024 Dr. Deejay Dawson MD Other Provider Active S tart: August 16, 2024 End: August 16, 2024 Team Status: Active Member Role/Relationship Status Dates Dr. Alex Harrell MD Attending Provider Active S tart: August 23, 2024 Dr. Alex Harrell MD Referring Provider Active S tart: August 23, 2024 Dr. Bhupinder Hamlin MD Primary Care Provider Active Start: August 23, 2024 Team Status: Inactive Member Role/Relationship Status Dates Dr. Bhupinder Hamlin MD Primary Care Provider Active Start: August 24, 2024 End: August 24, 2024 Dr. Bhupinder Hamlin MD Referring Provider Active Start: August 24, 2024 End: August 24, 2024 Lazara Haney BALLOON SELLER, BALLOON SELLER-C Attending Provider Active Start: August 24, 2024 End: August 24, 2024 Team Status: Inactive Member Role/Relationship Status Dates Dr. Bhupinder Hamlin MD Primary Care Provider Active Start: September 12, 2024 End: September 12, 2024 Dr. Bhupinder Hamlin MD Referring Provider Active Start: September 12, 2024 End: September 12, 2024 Dr. Adam Solorzano MD Attending Provider Active S tart: September 12, 2024 End: September 12, 2024 Team Status: Inactive Member Role/Relationship Status Dates Dr. Bhupinder Hamlin MD Primary Care Provider Active Start: September 21, 2024 End: September 21, 2024 WANDY ROWAN MD Attending Provider Active Star t: September 21, 2024 End: September 21, 2024 WANDY ROWAN MD Referring Provider Active Star t: September 21, 2024 End: September 21, 2024 Team Status: Active Member Role/Relationship Status Dates Dr. Bhupinder Hamlin MD Primary Care Provider Active Start: October 17, 2024 Dr. Adam Solorzano MD Attending Provider Active S tart: October 17, 2024 Dr. Adam Solorzano MD Referring Provider Active S tart: October 17, 2024 Team Status: Inactive Member Role/Relationship Status Dates Dr. Bhupinder Hamlin MD Primary Care Provider Active Start: October 17, 2024 End: October 19, 2024 Dr. Adam Solorzano MD Attending Provider Active S tart: October 17, 2024 End: October 19, 2024 Dr. Adam Solorzano MD Referring Provider Active S tart: October 17, 2024 End: October 19, 2024 Magaly Huang PA, PA Other Provider Active Start: October 17, 2024 End: October 19, 2024 WANDY ROWAN MD Other Provider Active Start: Ira orellana 2024 End: October 19, 2024 Dr. Deejay Dawson MD Other Provider Active S tart: October 17, 2024 End: October 19, 2024 Team Status: Active Member Role/Relationship Status Dates Dr. Bhupinder Hamlin MD Primary Care Provider Active Start: October 17, 2024 Dr. Adam Solorzano MD Attending Provider Active S tart: October 17, 2024 Team Status: Inactive Member Role/Relationship Status Dates Dr. Bhupinder Hamlin MD Primary Care Provider Active Start: October 17, 2024 End: October 17, 2024 Dr. Adam Solorzano MD Attending Provider Active S tart: October 17, 2024 End: October 17, 2024 Dr. Adam Solorzano MD Referring Provider Active S tart: October 17, 2024 End: October 17, 2024 Team Status: Active Member Role/Relationship Status Dates Dr. Bhupinder Hamlin MD Primary care physician Active Team Status: Active Member Role/Relationship Status Dates Dr. Alex Harrell MD Attending physician Active Start: August 23, 2024 Dr. Alex Harrell MD Referring Provider Active S tart: August 23, 2024 Dr. Bhupinder Hamlin MD Primary care physician Active Start: August 23, 2024 Team Status: Inactive Member Role/Relationship Status Dates Dr. Bhupinder Hamlin MD Primary care physician Active Start: August 24, 2024 End: August 24, 2024 Dr. Bhupinder Hamlin MD Referring Provider Active Start: August 24, 2024 End: August 24, 2024 Lazara aHney BALLOON SELLER, BALLOON SELLER-C Attending physician Active Start: August 24, 2024 End: August 24, 2024 Team Status: Inactive Member Role/Relationship Status Dates Dr. Bhupinder Hamlin MD Primary care physician Active Start: September 12, 2024 End: September 12, 2024 Dr. Bhupinder Hamlin MD Referring Provider Active Start: September 12, 2024 End: September 12, 2024 Dr. Adam Solorzano MD Attending physician Active Start: September 12, 2024 End: September 12, 2024 Team Status: Inactive Member Role/Relationship Status Dates Dr. Bhupinder Hamlin MD Primary care physician Active Start: September 21, 2024 End: September 21, 2024 WANDY ROWAN MD Attending physician Active Sta rt: September 21, 2024 End: September 21, 2024 WANDY ROWAN MD Referring Provider Active Star t: September 21, 2024 End: September 21, 2024 Team Status: Inactive Member Role/Relationship Status Dates Dr. Bhupinder Hamlin MD Primary care physician Active Start: October 17, 2024 End: October 17, 2024 Dr. Adam Solorzano MD Attending physician Active Start: October 17, 2024 End: October 17, 2024 Dr. Adam Solorzano MD Referring Provider Active S tart: October 17, 2024 End: October 17, 2024 Team Status: Inactive Member Role/Relationship Status Dates Dr. Bhupinder Hamlin MD Primary care physician Active Start: October 17, 2024 End: October 19, 2024 Dr. Adam Solorzano MD Attending physician Active Start: October 17, 2024 End: October 19, 2024 Dr. Adam Solorzano MD Referring Provider Active S tart: October 17, 2024 End: October 19, 2024 Magaly OSUNA, PA Nurse Practitioner Active Start: October 17, 2024 End: October 19, 2024 WANDY ROWAN MD Nurse Practitioner Active Star t: October 17, 2024 End: October 19, 2024 Dr. Deejay Dawson MD Nurse Practitioner Active Start: October 17, 2024 End: October 19, 2024 Team Status: Active Member Role/Relationship Status Dates Dr. Bhupinder Hamlin MD Primary care physician Active Start: October 17, 2024 Dr. Adam Solorzano MD Attending physician Active Start: October 17, 2024 Team Status: Inactive Member Role/Relationship Status Dates Dr. Bhupinder Hamlin MD Primary care physician Active Start: November 21, 2024 End: December 19, 2024 Dr. Adam Solorzano MD Attending physician Active Start: November 21, 2024 End: December 19, 2024 Dr. Adam Solorzano MD Referring Provider Active S tart: November 21, 2024 End: December 19, 2024 Magaly Huang PA, PA Nurse Practitioner Active Start: November 21, 2024 End: December 19, 2024 WANDY ROWAN MD Nurse Practitioner Active Star t: November 21, 2024 End: December 19, 2024 Dr. Deejay Dawson MD Nurse Practitioner Active Start: November 21, 2024 End: December 19, 2024 Team Status: Active Member Role/Relationship Status Dates Dr. Bhupinder Hamlin MD Primary care physician Active Start: December 20, 2024 Dr. Adam Solorzano MD Attending physician Active Start: December 20, 2024 Dr. Adam Solorzano MD Referring Provider Active S tart: December 20, 2024 Magaly Huang PA, PA Nurse Practitioner Active Start: December 20, 2024 WANDY ROWAN MD Nurse Practitioner Active Star t: December 20, 2024 Dr. Deejay Dawson MD Nurse Practitioner Active Start: December 20, 2024 Source Comments (unrecognize d section and content) In the event this informatio n is protected by the Federal Confidentiality of Alcohol and Drug Abuse Patient Records regulations: The Federal rules restrict any use of the information to criminally investigate or prosecute any alcohol or drug abuse patient.[facility] SystemIn the event this information is protected by the Federal Confidentiality of Alcohol and Drug Abuse Patient Records regulations: The Federal rules restrict any use of the information to criminally investigate or prosecute any alcohol or drug abuse patient.[facility] SystemIn the event this information is protected by the Federal Confidentiality of Alcohol and Drug Abuse Patient Records regulations: The Federal rules restrict any use of the information to criminally investigate or prosecute any alcohol or drug abuse patient.[facility] SystemIn the event this information is protected by the Federal Confidentiality of Alcohol and Drug Abuse Patient Records regulations: The Federal rules restrict any use of the information to criminally investigate or prosecute any alcohol or drug abuse patient.[facility] SystemIn the event this information is protected by the Federal Confidentiality of Alcohol and Drug Abuse Patient Records regulations: The Federal rules restrict any use of the information to criminally investigate or prosecute any alcohol or drug abuse patient.[facility] SystemIn the event this information is protected by the Federal Confidentiality of Alcohol and Drug Abuse Patient Records regulations: The Federal rules restrict any use of the information to criminally investigate or prosecute any alcohol or drug abuse patient.[facility] SystemIn the event this information is protected by the Federal Confidentiality of Alcohol and Drug Abuse Patient Records regulations: The Federal rules restrict any use of the information to criminally investigate or prosecute any alcohol or drug abuse patient.[facility] SystemIn the event this information is protected by the Federal Confidentiality of Alcohol and Drug Abuse Patient Records regulations: The Federal rules restrict any use of the information to criminally investigate or prosecute any alcohol or drug abuse patient.[facility] SystemIn the event this information is protected by the Federal Confidentiality of Alcohol and Drug Abuse Patient Records regulations: The Federal rules restrict any use of the information to criminally investigate or prosecute any alcohol or drug abuse patient.[facility] SystemIn the event this information is protected by the Federal Confidentiality of Alcohol and Drug Abuse Patient Records regulations: The Federal rules restrict any use of the information to criminally investigate or prosecute any alcohol or drug abuse patient.[facility] SystemIn the event this information is protected by the Federal Confidentiality of Alcohol and Drug Abuse Patient Records regulations: The Federal rules restrict any use of the information to criminally investigate or prosecute any alcohol or drug abuse patient.[facility] SystemIn the event this information is protected by the Federal Confidentiality of Alcohol and Drug Abuse Patient Records regulations: The Federal rules restrict any use of the information to criminally investigate or prosecute any alcohol or drug abuse patient.[facility] SystemIn the event this information is protected by the Federal Confidentiality of Alcohol and Drug Abuse Patient Records regulations: The Federal rules restrict any use of the information to criminally investigate or prosecute any alcohol or drug abuse patient.[facility] SystemIn the event this information is protected by the Federal Confidentiality of Alcohol and Drug Abuse Patient Records regulations: The Federal rules restrict any use of the information to criminally investigate or prosecute any alcohol or drug abuse patient.[facility] SystemIn the event this information is protected by the Federal Confidentiality of Alcohol and Drug Abuse Patient Records regulations: The Federal rules restrict any use of the information to criminally investigate or prosecute any alcohol or drug abuse patient.[facility] SystemIn the event this information is protected by the Federal Confidentiality of Alcohol and Drug Abuse Patient Records regulations: The Federal rules restrict any use of the information to criminally investigate or prosecute any alcohol or drug abuse patient.[facility] SystemIn the event this information is protected by the Federal Confidentiality of Alcohol and Drug Abuse Patient Records regulations: The Federal rules restrict any use of the information to criminally investigate or prosecute any alcohol or drug abuse patient.[facility] SystemIn the event this information is protected by the Federal Confidentiality of Alcohol and Drug Abuse Patient Records regulations: The Federal rules restrict any use of the information to criminally investigate or prosecute any alcohol or drug abuse patient.[facility] SystemIn the event this information is protected by the Federal Confidentiality of Alcohol and Drug Abuse Patient Records regulations: The Federal rules restrict any use of the information to criminally investigate or prosecute any alcohol or drug abuse patient.[facility] SystemIn the event this information is protected by the Federal Confidentiality of Alcohol and Drug Abuse Patient Records regulations: The Federal rules restrict any use of the information to criminally investigate or prosecute any alcohol or drug abuse patient.[facility] SystemIn the event this information is protected by the Federal Confidentiality of Alcohol and Drug Abuse Patient Records regulations: The Federal rules restrict any use of the information to criminally investigate or prosecute any alcohol or drug abuse patient.[facility] SystemIn the event this information is protected by the Federal Confidentiality of Alcohol and Drug Abuse Patient Records regulations: The Federal rules restrict any use of the information to criminally investigate or prosecute any alcohol or drug abuse patient.[facility]In the event this information is protected by the Federal Confidentiality of Alcohol and Drug Abuse Patient Records regulations: The Federal rules restrict any use of the information to criminally investigate or prosecute any alcohol or drug abuse patient.[facility] SystemIn the event this information is protected by the Federal Confidentiality of Alcohol and Drug Abuse Patient Records regulations: The Federal rules restrict any use of the information to criminally investigate or prosecute any alcohol or drug abuse patient.[facility] SystemIn the event this information is protected by the Federal Confidentiality of Alcohol and Drug Abuse Patient Records regulations: The Federal rules restrict any use of the information to criminally investigate or prosecute any alcohol or drug abuse patient.[facility] SystemIn the event this information is protected by the Federal Confidentiality of Alcohol and Drug Abuse Patient Records regulations: The Federal rules restrict any use of the information to criminally investigate or prosecute any alcohol or drug abuse patient.[facility] SystemIn the event this information is protected by the Federal Confidentiality of Alcohol and Drug Abuse Patient Records regulations: The Federal rules restrict any use of the information to criminally investigate or prosecute any alcohol or drug abuse patient.[facility] SystemIn the event this information is protected by the Federal Confidentiality of Alcohol and Drug Abuse Patient Records regulations: The Federal rules restrict any use of the information to criminally investigate or prosecute any alcohol or drug abuse patient.[facility] SystemIn the event this information is protected by the Federal Confidentiality of Alcohol and Drug Abuse Patient Records regulations: The Federal rules restrict any use of the information to criminally investigate or prosecute any alcohol or drug abuse patient.[facility] SystemIn the event this information is protected by the Federal Confidentiality of Alcohol and Drug Abuse Patient Records regulations: The Federal rules restrict any use of the information to criminally investigate or prosecute any alcohol or drug abuse patient.[facility] SystemIn the event this information is protected by the Federal Confidentiality of Alcohol and Drug Abuse Patient Records regulations: The Federal rules restrict any use of the information to criminally investigate or prosecute any alcohol or drug abuse patient.[facility] SystemIn the event this information is protected by the Federal Confidentiality of Alcohol and Drug Abuse Patient Records regulations: The Federal rules restrict any use of the information to criminally investigate or prosecute any alcohol or drug abuse patient.[facility] Reason for Visit (unrecogniz ed section and content) Reason Comments Referral Information Request Outside Medical Records Reason Comments Epilepsy Seizures New Patient Specialty Diagnoses / Procedures Referred By Contac t Referred To Contact Neurology Diagnoses Disorder of artery or arteriole (HCC) Pre-operative cardiovascular examination Aortic valve disorder Procedures CONSULT TO NEUROLOGY OFFICE/OUTPATIENT [facility] 60 MINUTES Yasmin Dawson MD [address] [place] [address] Referral ID Status Reason Start Date Expiration Date V isits Requested Visits Authorized [id number] Closed PCP Requested Referral 10/07/2023 10/06/2024 1 1 Reason Comments Spirometry Specialty Diagnoses / Procedures Referred By Contac t Referred To [facility] Diagnoses Disorder of artery or arteriole (HCC) Pre-operative cardiovascular examination Aortic valve disorder Procedures LUNG DIFFUSION CAPACITY (DLCO) DIFFUSING CAPACITY Yasmin Dawson MD [address] [place] [id number] [facility] [place] [address] [place] [address] Referral ID Status Reason Start Date Expiration Date V isits Requested Visits Authorized [id number] Closed Auto-Generate d Referral 11/03/2023 03/21/2024 1 1 Specialty Diagnoses / Procedures Referred By Contac t Referred To Contact [facility] Diagnoses Disorder of artery or arteriole (HCC) Pre-operative cardiovascular examination Aortic valve disorder Procedures SPIROMETRY BASELINE ONLY SPMTRY W/VC EXPIRATORY JONATHAN W/WO MXML VOL VNTJ Yasmin Dawson MD [address] [place] [address] [facility] [place] [address] [place] [address] Referral ID Status Reason Start Date Expiration Date V isits Requested Visits Authorized [id number] Closed Auto-Generate d Referral 11/03/2023 03/21/2024 [address] Specialty Diagnoses / Procedures Referred By Contac t Referred To Contact CT IMAGING Diagnoses Disorder of artery or arteriole (HCC) Pre-operative cardiovascular examination Aortic valve disorder Procedures CTA CHEST (GATED) W IVCON CT ANGIOGRAPHY CHEST W/CONTRAST/NONCONTRAST Yasmin Dawson MD [address] [place] [address] [facility] [place] [id number] Referral ID Status Reason Start Date Expiration Date V isits Requested Visits Authorized [id number] Closed Auto-Generate d Referral 11/03/2023 03/21/2024 1 1 Reason Comments Patient Education Reason Comments Pre-Op Exam Reason Comments Follow Up Phone Call [facility] follow up call a ll clear. Reason Comments Patient Update Reason Comments Post Dc Program Call - Fyi Reason Comments [facility]Pat Start Reason Comments IV Medication Administration Reason Comments Patient Update Problem with referra l Reason Comments [facility] Agency Reason Comments Outside Lab Results Reason Comments Initial Consult [facility] Management Lab review Reason Comments Nurse Visit PICC line dressing c hange Reason Comments Orders Reason Comments [facility] Stop Reason Comments Hospital F/U FOR RECORDS PERTAINING TO PATIENTS WHO ARE OR HAVE BEEN ENROLLED IN A CHEMICAL DEPENDENCY/SUBSTANCEABUSE PROGRAM, SOME INFORMATION MAY BE OMITTED. This clinical summary was aggregated from multiple sources. Caution should be exercised in using it in the provision of clinical care. This summary normalizes information from multiple sources, and as a consequence, information in this document may materially change the coding, format and clinical context of patient data. In addition, data may be omitted in some cases. CLINICAL DECISIONS SHOULD BE BASED ON THE PRIMARY CLINICAL RECORDS. [facility] [employer] [facility]. provides no warranty or guarantee of the accuracy or completeness of information in this document.
[2025-02-07 17:08] LABS: Dilute Russell Viper Venom 95.3 sec (0.0-47.0); Dilute Russell Viper Venom Mix 56.3 sec (0.0-40.4); Hexagonal Phase Phospholipid 2 14 sec (0-11); Interpretation Comment: (.); PTT-LA 71.3 sec (0.0-43.5)
== END | disposition home or self-care (01) ==
LOC: LAB 14:40
PROVIDERS: PCP Family Medicine; Referring Provider Internal Medicine Rheumatology; Visit Provider Internal Medicine Rheumatology
DX: M06.4 Inflammatory polyarthropathy (principal); M32.19 Other organ or system involvement in systemic lupus erythematosus; Z79.899 Other long term (current) drug therapy

== ENCOUNTER → 2025-02-13 | Outpatient (CLI) | payer OTHER, SELFPAY ==
[2024-03-24 11:45] VITALS: BMI 31.4
--- NOTE | 2025-02-13 16:28 | BI_ITS ---
EXAM: SCRN MAMM (CAD)W/MARY LOU BILAT DATE: 02/13/2025 CLINICAL HISTORY: F, Age 50 y/o , ANNUAL SCREENING TECHNIQUE: Procedure Code: [id number] Modality: MG Procedure: SCRN MAMM (CAD)W/MARY LOU BILAT COMPARISON: Prior exam(s) dated mammogram dated 02/09/2024 and 11/04/2022. FINDINGS: TISSUE DENSITY: There are scattered areas of fibroglandular density. Bilateral Breast Mammographic Findings: No significant masses, calcifications or other abnormalities are identified. Benign round microcalcifications and vascular calcifications are seen in both breasts. Partially obscured stable isodense masses are seen in the right breast. BI/SCRN MAMM (CAD)W/MARY LOU BILAT IMPRESSION: Benign screening mammogram OVERALL FINAL ASSESSMENT BI-RADS 2: BENIGN RECOMMENDATION: Routine annual follow-up in 1 Year Additional Recommendation none A letter with findings and recommendations will be mailed to the patient. Reading Location: [id number]
== END | disposition home or self-care (01) ==
LOC: OPBI 16:27
PROVIDERS: PCP Family Medicine; Referring Provider Family Medicine; Visit Provider Family Medicine
DX: Z12.31 Encounter for screening mammogram for malignant neoplasm of breast (principal)
CPT/HCPCS: 77063; 77067

== ENCOUNTER → 2025-02-20 | Outpatient (CLI) | payer OTHER, SELFPAY ==
[2024-03-24 11:45] VITALS: BMI 31.4
[2025-02-20 17:40] LABS: Ammonia 28.7 umol/L (11-51)
[2025-02-23 08:09] LABS: KEPPRA (LEVETIRACETAM) 25.3 ug/mL (10.0-40.0)
== END | disposition home or self-care (01) ==
LOC: LAB 16:34
PROVIDERS: PCP Family Medicine; Referring Provider Psychiatry & Neurology Neurology; Visit Provider Psychiatry & Neurology Neurology
DX: G40.409 Other generalized epilepsy and epileptic syndromes, not intractable, without status epilepticus (principal)
CPT/HCPCS: 36415; 80177; 82140

== ENCOUNTER 2025-03-19 14:51 | Outpatient (RCR) | payer OTHER, SELFPAY ==
[2024-03-24 11:45] VITALS: BMI 31.4
[2025-02-27 19:26] LABS: Prothrombin Time (Protime)PT. 23.7 SECONDS (11.7-14.9)
[2025-03-05 15:59] LABS: INR Fingerstick 3.6
[2025-03-19 17:35] LABS: Prothrombin Time (Protime)PT. 39.3 SECONDS (11.7-14.9)
== END 2025-03-19 18:00 | disposition home or self-care (01) ==
LOC: LAB 14:51
PROVIDERS: PCP Family Medicine; Referring Provider Internal Medicine Cardiovascular Disease; Visit Provider Internal Medicine Cardiovascular Disease
DX: Z95.2 Presence of prosthetic heart valve (principal); Z79.01 Long term (current) use of anticoagulants
CPT/HCPCS: 36415; 36416; 85610